=== PATIENT | male | born 1975 | race Caucasian/White ===

== ENCOUNTER 2019-04-01 20:21 | Emergency (ER) | payer MEDICARE, SELFPAY ==
[2019-04-01 20:22] VITALS: BP 115/70; PULSE 109; RESP 16; TEMP 37.1; O2SAT 97; BMI 21.7
--- NOTE | 2019-04-01 20:51 | ED.VISSUMM ---
- ER Visit Summary Date of Service: 04/01/19 Chief Complaint: Back pain History of Present Illness: The patient is a 43 M presents with back pain that is been getting worse over the past 1-1/2 to 2 weeks. Patient states the pain is over the left lower lumbar area. Patient states pain does radiate into his abdomen. Patient denies any nausea or vomiting. Patient denies any diarrhea. Patient denies any bowel or bladder changes. Patient denies any urinary or stool incontinence. Patient denies any saddle anesthesia. Patient states his pain is worse when he moves certain ways. Patient states the pain improves when he rubs his lower back. Patient denies any radiation of the pain. Patient denies any paresthesias or weakness. Patient denies any specific trauma or injury. Patient states he did go to [facility] and [facility]. Patient states this is helped his back pain in the past however this did not help this time. Physical Examination: Vital signs are stable. Patient is afebrile. Patient is in no acute distress. Musculoskeletal exam reveals tenderness over the left lumbar paraspinal muscles. There is no midline tenderness. There is no bony crepitance or step-off. Straight leg raises were negative bilaterally. Strength is 5/5 bilateral knee upper and lower extremities. There are no sensory deficits noted. Patient was able to ambulate without difficulty. Heart was regular rate and rhythm. Lungs are clear and equal bilaterally. Abdomen is soft. Bowel sounds are normal. There is no tenderness noted. Emergency Department Course and Treatment: Patient was given a prescription for Naprosyn. Patient was instructed to use ice to the area. Patient was instructed to follow-up with his primary care physician in 5 to 7 days. Patient understood and was agreeable with the plan. All questions were answered. Disposition: Discharge home Impression: Lumbosacral strain This note was generated with Practice Management e-Tools dictation software. It may contain incorrect words, spelling, and punctuation that were not noted in review of the chart prior to signing ED Disposition - Plan for ED Patient: Disposition: Home or Assisted Living Diagnosis: Lumbosacral strain Instructions: Back Sprain/Strain Prescriptions: Naproxen [Naprosyn] 500 mg PO BID PRN #20 tab Prescription Printed Referrals: Cristian Barnett MD [Primary Care Provider] - 3-5 Days
[2019-04-01 21:03] VITALS: BP 115/70; PULSE 109; RESP 16; O2SAT 97
== END 2019-04-01 21:04 | disposition home or self-care (01) ==
PROVIDERS: Emergency Provider Emergency Medicine; Family Provider Family Medicine; PCP Family Medicine
DX: S39.012A Strain of muscle, fascia and tendon of lower back, initial encounter (principal); Z72.0 Tobacco use; X58.XXXA Exposure to other specified factors, initial encounter; Y93.89 Activity, other specified; Y92.89 Other specified places as the place of occurrence of the external cause; Y99.8 Other external cause status
CPT/HCPCS: 99282

== ENCOUNTER 2019-04-09 09:29 | Emergency (ER) | payer MEDICARE, SELFPAY ==
[2019-04-09 09:31] VITALS: BP 122/74; PULSE 65; RESP 17; TEMP 36.8; O2SAT 99; BMI 22.0
--- NOTE | 2019-04-09 09:40 | CT_ITS ---
STUDY: CT ABDOMEN AND PELVIS WITHOUT CONTRAST REASON FOR EXAM: Male, 43 years old. Pain RADIATION DOSAGE (If Supplied By Facility): CTDIvol = ( 6.08 ) mGy, DLP = ( 299.27 ) mGycm TECHNIQUE: Transaxial images were obtained from the dome of the diaphragm to the symphysis pubis without oral contrast, and without intravenous contrast. Sagittal and coronal images were reconstructed. Individualized dose optimization techniques were used for this CT. COMPARISON: November 29, 2016 CT scan abdomen and pelvis FINDINGS: There is trace lower lobe atelectasis. The visualized portions of the heart are within normal limits. Normal liver. Normal gallbladder and extrahepatic biliary system. Normal spleen. Normal pancreas. Normal bilateral adrenal glands. Normal right kidney. Normal left kidney. Normal visualized stomach. Normal small intestine. There is mild to moderate stool within the colon. Appendix is not seen with certainty there is no evidence of inflammation in the right lower quadrant. There is minimal atherosclerotic disease of the aorta. Normal inferior vena cava. There few nonspecific retroperitoneal lymph nodes. Normal urinary bladder. Prostate is mildly enlarged. Normal abdominal wall. There is degenerative change T11-T12. CT/Abdomen/Pelvis without Cont IMPRESSION: No evidence of renal ureteral or bladder calculi or evidence of hydronephrosis. Electronically Signed: Taryn Machado MD at 11:34 EDT Tel , Service support ,
--- NOTE | 2019-04-09 09:42 | ED.VIS.GEN ---
History of Present Illness Chief Complaint: Flank Pain Informant: Patient Onset: Weeks Narrative: Patient presents to the ED with left-sided flank/lumbar pain and states it is wrapping around to his groin. He states that several weeks ago, he fell and was having lumbar pain. He was seen here about 8 days ago and diagnosed with lumbar pain with sciatica and given anti-inflammatories and muscle relaxants. He states the pain is not improving. He did he states that occasionally he does have a week but no other urinary symptoms. He denies any fever, chills, abdominal pain, constipation, diarrhea. He has no history of renal stones. He has been taking [id number] analgesics without relief. Past Medical History - Allergies and Home Meds Allergies/Adverse Reactions: Allergies sulfamethoxazole [From Bactrim] Allergy (Verified 04/09/19 09:31) Unknown trimethoprim [From Bactrim] Allergy (Verified 04/09/19 09:31) Unknown amoxicillin trihydrate [From Augmentin] Adverse Reaction (Verified 04/09/19 09:31) Nausea potassium clavulanate [From Augmentin] Adverse Reaction (Verified 04/09/19 09:31) Nausea Primary Care Physician: Cristian Barnett MD [Primary Care Provider] - Smoking Status: Current every day smoker Review of Systems General: Denies: Chills, Fever, Sweats Eyes: Denies: Visual changes - bilaterally, Diplopia ENT: Denies: Rhinorrhea, Sore throat Cardiovascular: Denies: Chest pain, Palpitations Respiratory: Denies: Dyspnea, Cough, Dyspnea on exertion Gastrointestinal: Denies: Abdominal pain, Nausea, Vomiting, Diarrhea, Melena, Hematochezia Genitourinary: Reports: - - Weak stream. Denies: Dysuria, Hematuria, Frequency Musculoskeletal: Reports: Back pain. Denies: Extremity Pain Skin: Denies: Rash, Wounds Neurological: Denies: Headache, Weakness, Numbness Physical Exam Vital Signs/Narrative: Vital Signs Temp Pulse Resp BP Pulse Ox 04/09/19 09:31 98.2 F 65 17 122/74 H 99 General: Well nourished, Well developed, No Acute Distress Head: Normocephalic, Atraumatic Eyes: Perrl, EOMI ENT: Moist mucous membranes, No rhinorrhea Neck: Supple, Nontender Cardiovascular: Regular rate, Regular rhythm, No murmurs Respiratory: No distress, CTA bilaterally, Chest nontender Abdomen: Soft, Nondistended, Normal bowel sounds, Tender - Left lower quadrant, Guarding, Rebound tenderness Back: Nontender, Normal Inspection Extremities: Nontender, No edema Skin: Normal color, No rash Neurological: Alert, Oriented x3, Cranial nerves II-XII grossly intact, Normal Strength, Normal Sensation Psychological: Normal affect, Normal Mood Diagnostic/Tx/Re-eval - Medical Decision Making Patient presents to the ED with lumbar pain that radiates into his groin. He did fall and injure himself several weeks ago. He was seen here 8 days ago for similar symptoms and diagnosed with lumbar pain with sciatica. He does report decreased urinary stream. He appears well and nontoxic. He does have some left-sided abdominal tenderness to palpation on physical exam. No CVA tenderness. Laboratory studies, urinalysis, and CT of the abdomen/pelvis without contrast indicate no acute findings. I discussed with the patient at this time his symptoms are most likely more musculoskeletal in nature. While here, he was given IV fluids, Toradol, and Zofran. He does report mild improvement of symptoms. He was advised to follow-up with his PCP. Educated on signs/symptoms to return to the ED. He is provided discharge instructions and agreeable to plan. Impression: Lumbar pain. Disposition: Home stable ED Disposition - Plan for ED Patient: Disposition: Home or Assisted Living Diagnosis: Lumbar pain Instructions: FLANK PAIN, Uncertain Cause Referrals: Cristian Barnett MD [Primary Care Provider] -
[2019-04-09] MEDS: 0.9% Normal Saline 1,000 ML 1000 ML IV (10:03)
[2019-04-09] MEDS: Ketorolac 30 MG/ML Syringe IV (10:04)
[2019-04-09] MEDS: Ondansetron 4 MG/2 ML Vial IV (10:04)
[2019-04-09 10:29] LABS: Anion Gap 6 (5-15); BUN 13 mg/dL (7-18); BUN/Creat Ratio 14.6 RATIO (10-20); Calcium,Total 9.1 mg/dL (8.5-10.1); Chloride 108 mmol/L (98-107); Creatinine, Serum 0.89 mg/dL (0.70-1.30); EST Glomerular Filtration Rate 98 mL/min (>60); Est Glom Filt Rate - Afr Amer 119 mL/min (>60); Estimated Creatinine Clearance 100.22 ml/min; Glucose 102 mg/dL (74-106); Sodium Level 142 mmol/L (136-145)
[2019-04-09 10:30] LABS: Absolute Neutrophil Count 4.4 X10^3/uL (2.0-7.7); Basophil# 0.08 X10^3/uL; Basophil% 1.1 % (0-1); Eosinophil# 0.16 X10^3/uL; Eosinophils% 2.1 % (0-5); Hematocrit 45.7 % (40-54); Hemoglobin 15.4 g/dL (13.0-16.5); Mean Corp Hgb Conc 33.7 g/dL (32-36); Mean Corpuscular Hgb 31.9 pg (27.0-32.0); Mean Corpuscular Volume 94.6 fL (80-94); Mean Platelet Vol. 11.8 fl (6.2-12.0); Monocyte# 0.46 X10^3/uL; Monocyte% 6.1 % (0-10); NRBC Flagged by Analyzer 0 % (0-5); Neutrophil # 4.37 X10^3/uL (2.7-7.7); Neutrophil % 58.3 % (47-70); Platelet Count 184 K/mm3 (150-450); RBC Distribution Width CV 14.2 % (11.6-14.6); RBC Distribution Width SD 49.1 fl (35.1-43.9); Red Blood Count 4.83 M/mm3 (4.6-6.2); White Blood Count 7.5 K/mm3 (4.4-11.0)
[2019-04-09 11:31] LABS: Bacteria 0 SEEN /hpf (None Seen); Mucous, Urine 0 SEEN /hpf (<or=2+); Red Blood Cells-Urine 0 SEEN /hpf (0-5); Squamous Epithelial Cells - UA 0 SEEN /hpf (0-5)
[2019-04-09 11:34] LABS: Color, Urine Yellow (Yellow); Glucose, Dipstick Normal (Normal); Ketone-Dipstick Negative (Negative); Leukocyte Esterase-Dipstick 25 /ul (Negative); Nitrite-Dipstick Negative (Negative); Occult Blood-Urine Negative /ul (Negative); Protein-Dipstick Negative (Negative); Specific Gravity, Urine 1.025 (1.002-1.030); Urine Bilirubin Dipstick Negative (Negative); Urine Clarity Clear (Clear); Urine Urobilinogen Normal (Normal)
[2019-04-09 11:40] LABS: White Blood Cells 0-5 SEEN /hpf (0-5)
== END 2019-04-09 12:23 | disposition home or self-care (01) ==
PROVIDERS: Emergency Provider Physician Assistant; Family Provider Family Medicine; PCP Family Medicine
DX: M54.5 Low back pain (principal); F17.200 Nicotine dependence, unspecified, uncomplicated
CPT/HCPCS: 74176; 80048; 81001; 85025; 96361; 96374; 96375; 99285; J2405

== ENCOUNTER 2024-11-12 08:03 | Emergency (ER) | payer MEDICARE, SELFPAY ==
[2024-11-12 08:03] VITALS: BP 141/98; PULSE 94; RESP 19; TEMP 37.1; O2SAT 98; BMI 25.1
--- NOTE | 2024-11-12 08:07 | EX.ED.DYSGE1 ---
HPI History of Present Illness Chief Complaint: Abd Pain PFSH PFSH Home Medications ?Medication ?Instructions ?Recorded ?Last Taken ?Type rabeprazole 20 mg tablet,delayed 20 mg PO DAILY 01/20/15 11/11/24 History release (AcipHex) ondansetron 4 mg disintegrating 4 mg PO Q8H PRN PRN Nausea #10 tabs 11/12/24 Unknown Rx tablet oxycodone 5 mg tablet 5 mg PO Q6H PRN pain 3 days #12 11/12/24 Unknown Rx tabs Allergy/AdvReac Type Severity Reaction Status Date / Time sulfamethoxazole (From Allergy Unknown Verified 11/12/24 08:06 Bactrim) trimethoprim (From Bactrim) Allergy Unknown Verified 11/12/24 08:06 amoxicillin trihydrate (From AdvReac Nausea Verified 11/12/24 08:06 Augmentin) potassium clavulanate (From AdvReac Nausea Verified 11/12/24 08:06 Augmentin) Social History Smoking Status: Current every day smoker tobacco type: cigarettes EXAM Physical Exam Const Vital Signs: 11/12/24 08:03 11/12/24 10:03 Temperature 98.7 F Temperature Source Oral Pulse Rate 94 81 Respiratory Rate 19 H 17 Blood Pressure 141/98 H 129/80 H Blood Pressure Mean 112 96 Pulse Ox 98 98 Oxygen Delivery Method Room Air Room Air MDM MDM MDM Narrative Medical decision making narrative: HISTORY OF PRESENT ILLNESS: Chief complaint: Abdominal pain 49-year-old male presents concern for left upper abdominal pain for the past 6 days. Notes it is getting worse. States is worse with bending over. He further states he has had no trauma. Denies vomiting or fever. Denies chest pain or shortness of breath. Denies flank pain. Notes history of kidney stones. States does not feel similar. Denies urinary complaints. Denies diarrhea. Denies melena hematochezia. Denies history of prior abdominal surgeries REVIEW OF SYSTEMS: Pertinent positives: Abdominal pain Pertinent negatives: As per HPI PHYSICAL EXAM: Nursing triage notes reviewed, Vital signs reviewed Constitutional: please see mdm HENT: MMM Eyes: Pupils equal round and reactive to light, Extraocular muscles intact Neck: No stridor, no JVD, full neck ROM Lungs: Clear to auscultation, No wheezing or rales. No increased work of breathing, no conversational dyspnea, no accessory muscle use, no nasal flaring. No respiratory distress noted Heart: Regular rate and rhythm, No murmurs, No rubs and No gallops, 2+ distal pulses (radial, femoral, posterior tibial) in all extremities Abdomen: Soft, there is no tenderness, rigidity, rebound or guarding, no obvious peritoneal signs, no palpable pulsatile abdominal masses, no auscultated abdominal bruit : No CVAT Extremities: No edema Neuro: No new focal neurological deficits, cranial nerves II through XII intact, 5/5 strength in all present extremities. Intact sensation to light touch in all present extremities, 2+ reflexes bilateral patella tendons. Skin: No rash or lesions noted MEDICAL DECISION MAKING: Chief Complaint: please see HPI External records reviewed: Reviewed prior surgical intervention Factors affecting care: left inguinal hernia status post repair Social determinants of health: Denies alcohol History obtained from others: none Consults: none [facility] Narrative: The patient was initially hemodynamically stable, afebrile and nontoxic-appearing. Exam without pulse abdominal masses. I considered the following differential diagnosis: AAA, small bowel obstruction, abdominal perforation, appendicitis, pancreatitis, hepatobiliary pathology (acute cholecystitis), mesenteric ischemia, pathology (ie nephrolithiasis, pyelonephritis). I obtained a broad lab and imaging evaluation to further elucidate etiology of the patient's complaint. I initially treated the patient with 1 L IV fluid, 4 mg IV Zofran, 4 mg IV morphine ALL IMAGES (IF OBTAINED) HAVE BEEN PERSONALLY REVIEWED AND INTERPRETED BY MYSELF. Per radiology numerus pulmonary nodule, lymphadenopathy, retroperitoneal nodes, small liver lesion concerning for cancer. CT scan was concerning for lung cancer with innumerable pulmonary nodules, hilar and mediastinal lymphadenopathy as well as intra-abdominal lesions as well. No sign of acute surgical pathology. CBC without leukocytosis, severe anemia, no thrombocytopenia. CMP without evidence of acute kidney injury, significant electrolyte abnormality, anion gap to suggest end organ hypo-perfusion, no evidence of metabolic acidosis with a normal bicarbonate, no evidence of hepatobiliary obstructive pathology. Lipase is wnl indicating no pancreatic inflammation. Repeat abdominal exam remained benign. The synthesis of the patient's history, physical exam, labs images suggest possible malignancy. Will give close oncology follow-up via Fast past return precautions were discussed. Zofran and oxycodone given for home treatment The patient and/or family, caregivers express understanding. The patient and/or family, caregivers agrees with the plan. Shared decision making: I will have a discussion with the patient and or visitors regarding risk/benefits of further testing or admission. They will be made aware of of the risk/benefits inherent in this decision they will be given the opportunity to voice understanding. Total critical care time today provided was at least 0 minutes. This excludes separately billable procedures. Critical care time (if documented) is secondary to the patient having high probability of clinically significant/life threatening deterioration in the patient's condition which required my urgent intervention. Impression: 1. Abdominal pain 2. Lymphadenopathy Dispo: Discharge home This note was generated with ArthroCAD dictation software. It may contain incorrect words, spelling, and punctuation that were not noted in review of the chart prior to signing. Lab Data Labs: Laboratory Results - last 24 hr 11/12/24 08:26 WBC 10.2 RBC 4.74 Hgb 13.9 Hct 41.5 MCV 87.6 MCH 29.3 MCHC 33.5 RDW Std Deviation 43.4 RDW Coeff of Ted 13.4 Plt Count 262 MPV 11.4 Immature Gran % (Auto) 0.600 Neut % (Auto) 69.6 Lymph % (Auto) 20.4 [place] % (Auto) 6.5 Eos % (Auto) 1.8 Baso % (Auto) 1.1 H Absolute Neuts (auto) 7.1 Absolute Lymphs (auto) 2.09 Nucleated RBC % 0 Sodium 135 Potassium 3.9 Chloride 102 Carbon Dioxide 21.4 Anion Gap 12 BUN 12 Creatinine 0.85 Estim Creat Clear Calc 102.82 Est GFR (MDRD) Non-Af 105 BUN/Creatinine Ratio 14.3 Glucose 283 H Calcium 9.1 Total Bilirubin 0.29 AST 13 ALT 8 Alkaline Phosphatase 70 Total Protein 7.8 Albumin 3.8 Globulin 4.0 Albumin/Globulin Ratio 1.0 Lipase 26 Radiography Diagnostic Testing: Clinical Impression(s) from Imaging Studies Chest/Abdomen/Pelvis CT 11/12/24 08:58 IMPRESSION: 1. No acute thoracic or abdominopelvic finding. 2. Innumerable pulmonary nodules throughout the bilateral lungs, with mediastinal and hilar lymphadenopathy, most compatible with primary lung neoplasm and marielena metastatic disease. Pulmonary metastasis or lymphoma are additional considerations, though less likely. Image guided biopsy is recommended for further evaluation. 3. Small right hepatic lobe hypodensity and large centrally necrotic retroperitoneal and gastric lymphadenopathy, compatible with hepatic and marielena metastatic disease. Dr. Bean discussed these findings via telephone with Dr. Grimes at 11:15 a.m. on 11/12/2024. Reading Location: [facility] Discharge Plan Triage Chief Complaint: Abd Pain ED Provider: Dionicio Grimes Dx/Rx/DC Orders Instructions: Lymphadenopathy Prescriptions: New ondansetron 4 mg tablet,disintegrating 4 mg PO Q8H PRN PRN (Reason: Nausea) Qty: 10 0RF oxycodone 5 mg tablet 5 mg PO Q6H PRN (Reason: pain) 3 Days Qty: 12 0RF No Action rabeprazole [AcipHex] 20 MG tablet 20 mg PO DAILY Other Ambulatory Orders: Fast Pass: Oncology Referral [facility] (Routine) Facility: [facility] - Location: [facility] Ordered By: Dr. Dionicio Grimes Primary Care Provider: Cristian Barnett Referrals: Cristian Barnett MD [Primary Care Provider] - Activity Restrictions/Additional Instructions: Thank you for trusting us with your care today! Your CT scan was concerning for inflamed lymph nodes and signs of potential cancer. Please follow-up with the Fast pass process for prompt oncology evaluation. Please take Tylenol (2 pills, 650 mg), ibuprofen (2 pills, 400 mg) every 6 hours as needed for pain and fever control. Please take Zofran as needed for nausea and vomiting control. Please return to the emergency department if your symptoms change or worsen. Please follow with your primary care physician for further outpatient evaluation and management. Print Language: Setswana Disposition Disposition: Home, Self Care
--- NOTE | 2024-11-12 08:58 | CT_ITS ---
PROCEDURE: CT CHEST, ABD, PEL W/CONTRAST 11/12/2024 REASON FOR EXAM: LEFT UPPER QUADRANT ABDOMINAL PAIN times 5-6 days, getting worse. TECHNIQUE: Chest, abdomen and pelvis CT with intravenous contrast. Coronal and Sagittal reconstruction series were provided. One or more dose reduction techniques were used (e.g., Automated exposure control, adjustment of the mA and/or kV according to patient size, use of iterative reconstruction technique. PATIENT PREPARATION: Per protocol ORAL CONTRAST TYPE: None. CONTRAST: Isovue 370 VOLUME: 100mL RADIATION DOSE SUMMARY: CTDlvol: 45 mGy DLP: 1200 mGycm COMPARISON: CT abdomen pelvis 04/09/2019. FINDINGS: CT CHEST: Hardware: None. Lymph nodes: Mediastinal and hilar lymphadenopathy. A goodwill representative right paratracheal node measures 1.9 x 1.7 cm (series 3, image 43). No axillary lymphadenopathy. Heart and Vasculature: The heart is normal in size without pericardial effusion. No coronary artery calcifications. The great vessels are normal in caliber. Lungs and Airways: The central airways are patent. Innumerable pulmonary nodules throughout all 5 lung lobes. A goodwill representative right upper lobe subpleural pulmonary nodule measures 2.5 x 2.2 cm (series 3, image 35). No pleural effusion or pneumothorax. Bones: Prior vertebral augmentation of the T6 vertebral body. CT ABDOMEN/PELVIS: Liver: The liver is normal in size with ill-defined hypodensity within hepatic segment 5 measuring approximately 1.4 x 1.4 cm (series 4, image 31). Additional tiny hypodensities, too small to characterize. The major portal veins are patent. No biliary ductal dilation. Gallbladder: No radiopaque stones within the gallbladder. Spleen: Normal size. Pancreas: Unremarkable. Adrenals: No adrenal mass. Kidneys: Tiny bilateral hypodensities, likely cysts. No hydronephrosis or nephrolithiasis. Bladder: Distended and unremarkable. Reproductive Organs: Mildly enlarged prostate. Bowel: The bowel loops are normal in caliber. No ascites or pneumoperitoneum. No inflammatory mass in the expected region of the appendix. Lymph nodes: Numerous large, centrally necrotic retroperitoneal and gastric lymphadenopathy. A goodwill representative left lateral aortic/para-aortic node measures 2.9 x 2.9 cm (series 4, image 41). Additional prominent central mesenteric nodes, of indeterminate significance. Vasculature: Mild calcific plaque of the aortoiliac vessels. Bones: No suspicious osseous lesions. CT/CT Chest, Abd, Pel w/Contrast IMPRESSION: 1. No acute thoracic or abdominopelvic finding. 2. Innumerable pulmonary nodules throughout the bilateral lungs, with mediastin al and hilar lymphadenopathy, most compatible with primary lung neoplasm and marielena metastatic disease. Pulmonary metastasis or ly mphoma are additional considerations, though less likely. Image guided biopsy is recommended for further evaluation. 3. Small right hepatic lobe hypodensity and large centrally necrotic retroperit decker and gastric lymphadenopathy, compatible with hepatic and marielena metastatic disease. Dr. Bean discussed these findings via telephone with Dr. Grimes at 11:15 a. m. on 11/12/2024. Reading Location: [id number]
[2024-11-12] MEDS: 0.9% Normal Saline (1000mL) 1,000 ML 999 ML IV (09:17)
[2024-11-12] MEDS: Ondansetron 4 MG/2 ML Vial IV (09:17)
[2024-11-12] MEDS: Morphine 4 MG/ML Syringe IV (09:17)
[2024-11-12 09:30] LABS: Absolute Lymphocyte Count 2.09 X10^3/uL (0.83-4.51); Absolute Neutrophil Count 7.1 X10^3/uL (2.0-7.7); Basophil# 0.11 X10^3/uL; Basophil% 1.1 % (0-1); Eosinophil# 0.18 X10^3/uL; Eosinophils% 1.8 % (0-5); Hematocrit 41.5 % (40-54); Hemoglobin 13.9 g/dL (13.0-16.5); Lymphocyte # 2.09 X10^3/ul (0.83-4.51); Lymphocyte % 20.4 % (19-41); Mean Corp Hgb Conc 33.5 g/dL (32-36); Mean Corpuscular Hgb 29.3 pg (27.0-32.0); Mean Corpuscular Volume 87.6 fL (80-94); Mean Platelet Vol. 11.4 fl (6.2-12.0); Monocyte# 0.67 X10^3/uL; Monocyte% 6.5 % (0-10); NRBC Flagged by Analyzer 0 % (0-5); Neutrophil # 7.13 X10^3/uL (2.7-7.7); Neutrophil % 69.6 % (47-70); Platelet Count 262 K/mm3 (150-450); RBC Distribution Width CV 13.4 % (11.6-14.6); RBC Distribution Width SD 43.4 fl (35.1-43.9); Red Blood Count 4.74 M/mm3 (4.6-6.2); White Blood Count 10.2 K/mm3 (4.4-11.0)
[2024-11-12 09:55] LABS: AST(SGOT) 13 U/L (<=37); Alanine Aminotransfer ALT/SGPT 8 U/L (<=46); Albumin, Serum 3.8 g/dL (3.5-5.0); Alkaline Phosphatase 70 U/L (40-129); Anion Gap 12 (5-15); BUN 12 mg/dL (4-19); BUN/Creat Ratio 14.3 RATIO (10-20); Calcium,Total 9.1 mg/dL (7.6-11.0); Carbon Dioxide 21.4 mmol/L (21.0-32.0); Chloride 102 mmol/L (98-108); Creatinine, Serum 0.85 mg/dL (0.70-1.20); EST Glomerular Filtration Rate 105 (>60); Estimated Creatinine Clearance 102.82 ml/min (50-250); Glucose 283 mg/dL (70-99); Lipase 26 U/L (13-75); Potassium 3.9 mmol/L (3.3-5.1); Protein, Total 7.8 g/dL (5.9-8.4); Sodium Level 135 mmol/L (133-145); Total Bilirubin 0.29 mg/dL (0.00-1.30)
[2024-11-12 10:03] VITALS: BP 129/80; PULSE 81; RESP 17; O2SAT 98
[2024-11-12 11:48] VITALS: BP 124/74; PULSE 79; RESP 15; TEMP 36.6; O2SAT 98
== END 2024-11-12 11:53 | disposition home or self-care (01) ==
PROVIDERS: Emergency Provider Emergency Medicine; PCP Family Medicine; Visit Provider Emergency Medicine
DX: R10.9 Unspecified abdominal pain (principal); R59.0 Localized enlarged lymph nodes; F17.210 Nicotine dependence, cigarettes, uncomplicated
CPT/HCPCS: 71260; 74177; 80053; 83690; 85025; 96361; 96374; 96375; 99284; J2405

== ENCOUNTER → 2024-11-14 | Outpatient (CLI) | payer MEDICARE, SELFPAY ==
[2024-11-14 12:59] LABS: Platelet Count 324 K/mm3 (150-450)
[2024-11-14 13:18] LABS: International Normalized Ratio 1.1
[2024-11-14 13:19] LABS: Partial Thromboplast Time 26.6 Seconds (24.1-36.2)
== END | disposition home or self-care (01) ==
LOC: LAB 11:52
PROVIDERS: PCP Family Medicine; Referring Provider Internal Medicine Critical Care Medicine; Visit Provider Internal Medicine Critical Care Medicine
DX: R91.8 Other nonspecific abnormal finding of lung field (principal)
CPT/HCPCS: 36415; 85049; 85610; 85730

== ENCOUNTER → 2025-01-04 | Outpatient (CLI) | payer MEDICARE, MEDICAID, SELFPAY ==
[2025-01-04] VITALS (22 sets, daily range): BP systolic 103–129; BP diastolic 73–98; PULSE 94–107; RESP 17–30; TEMP 37.1; O2SAT 94–99; BMI 23.6
--- NOTE | 2025-01-04 09:06 | CT_ITS ---
EXAM: CT-guided core biopsy a right lower lobe posterior peripheral mass. CLINICAL HISTORY: Innumerable bilateral presumed pulmonary metastases. COMPARISON: CT examination of 11/12/2024. TECHNIQUE: Conscious sedation was provided, with IV administration a total of 2 mg Versed and 100 mcg fentanyl. Following informed consent, and using standard sterile technique, a CT-guided core biopsy of a peripheral right lower lobe posterior mass was performed. 2% lidocaine local anesthesia was followed by placement of a reBouncest 20/19 gauge core biopsy device, under CT guidance. A total of 5 core specimens were obtained. Postprocedure 1 hour and 3 hour inspiratory and expiratory chest x-rays were also performed No complication was encountered, in the patient left the department in good condition without significant complication. Dose: DLP 3070.36 mGy-cm. CT/Biopsy/Inj or Needle Placement IMPRESSION: Successful core biopsy of a peripheral right lower lobe posterior nodule. Path ology results pending. Reading Location: [place] [id number]
[2025-01-04] MEDS: 0.9% Saline Lock 10 ML Syringe IV (09:35)
[2025-01-04 09:56] LABS: Absolute Lymphocyte Count 1.65 X10^3/uL (0.83-4.51); Absolute Neutrophil Count 10.3 X10^3/uL (2.0-7.7); Basophil# 0.08 X10^3/uL; Basophil% 0.6 % (0-1); Eosinophils% 0.8 % (0-5); Hematocrit 36.7 % (40-54); Hemoglobin 12.1 g/dL (13.0-16.5); Lymphocyte # 1.65 X10^3/ul (0.83-4.51); Lymphocyte % 12.7 % (19-41); Mean Corpuscular Hgb 27.1 pg (27.0-32.0); Mean Corpuscular Volume 82.3 fL (80-94); Mean Platelet Vol. 11.2 fl (6.2-12.0); Monocyte# 0.77 X10^3/uL; Monocyte% 5.9 % (0-10); NRBC Flagged by Analyzer 0 % (0-5); Neutrophil % 79.5 % (47-70); Platelet Count 457 K/mm3 (150-450); RBC Distribution Width CV 13.5 % (11.6-14.6); RBC Distribution Width SD 40.4 fl (35.1-43.9); Red Blood Count 4.46 M/mm3 (4.6-6.2)
[2025-01-04 10:01] LABS: International Normalized Ratio 1.2; Prothrombin Time (Protime)PT. 15.3 SECONDS (11.7-14.9)
[2025-01-04 10:02] LABS: Partial Thromboplast Time 24.2 Seconds (24.1-36.2)
[2025-01-04] MEDS: 0.9% Normal Saline (250mL Bag) 250 ML 15 ML IV (10:22)
[2025-01-04] MEDS: Midazolam 2 MG/2 ML Syringe IV ×2 (10:25→10:45)
[2025-01-04] MEDS: fentaNYL 100 MCG/2 ML Ampul IV ×2 (10:26→10:56)
[2025-01-04] MEDS: Lidocaine 2% (20 ml mdv) 20 ML Vial INFILT (10:45)
--- NOTE | 2025-01-04 11:10 | ASPIGT_PTH ---
PATIENT: HYUN CAIN LOC: CT U#:[id number] AGE/SX: 49/M ROOM: RE01/04/[address]: Dr. Denny Moffett DO : 1975 BED: DIS: 01/04/2025 SPEC #: [id number] RECD: 01/04/25 11:30 STATUS: ROSALIA REQ #: [id number] JONNY: 01/04/25 11:[address]: Denny Moffett DEPT: SURGICAL PATHOLOGY RECD BY: Bereket Rolle ENTERED: 01/04/25 13:21 SP TYPE: ASP RAD OTHR DR: MD Dr. Naeem Avila MD Dr. William Lago, MD Tissues: A - Lung, NOS Procedures: FNA Specimen Adequacy Immunohistochemical Stains Special Stain Group II Special Stain Group I Surgery Specimen Level IV AFB Stain (control) GMS Stain (control) Imprint (control) IHC Stain ADDITIONAL HEADER OPERATION: CT guided Right lung nodule PRE-OP DIAGNOSIS: Right lung nodule TISSUE SUBMITTED: A- Right lung nodule, 20 gauge x 5 cores MICROSCOPIC DIAGNOSIS A. Lung, right, nodule, biopsy: * Non-small cell carcinoma, consistent with squamous cell carcinoma - see note. * Note: IHCs performed. The tumor cells are positive for CK7, CK8, CK5/6, p40; and negative for CK20. Napsin-A shows focal weak staining. These findings support squamous differentiation. Clinical correlation is necessary to assess the primary origin. COMMENT The specimen is evaluated at the time of biopsy by Dr. Crooks. Immediate Evaluation = 1. Adequate. 2. Blood. MICROSCOPIC DESCRIPTION Slides are reviewed. All matched controls reacted appropriately. These tests were developed and their performance characteristics determined by [facility]. They may not have been cleared or approved by the U.S. Food and Drug Administration. The FDA has determined that such clearance or approval is not necessary.? The above immunohistochemical/dualISH?markers are reviewed by the Pathologist. GROSS DESCRIPTION A. Received in formalin labeled the patient's name and date of are multiple jose-red tissue core fragments ranging 0.2 cm to 0.6 cm in length by <0.1 cm to 0.1 cm in diameter. Entirely submitted in 1 cassette. IN 01/04/2025 CPT:[id number] ADDENDUM ADDENDUM ADDENDUM ADDENDUM ADDENDUM ADDENDUM ADDENDUM ADDENDUM ADDENDUM ADDENDUM ADDENDUM ADDENDUM ADDENDUM 01/11/2025 13:52 ADDENDUM 01/11/2025 13:52 ADDENDUM 01/11/2025 13:52 ADDENDUM 01/11/2025 13:52 ADDENDUM 01/11/2025 13:52 This addendum report is to include the additional stains performed: Mucicarmine: focal intracellular mucin positive. PASD: negative for fungal organisms. AFB: negative for acid fast bacilli. Based on the additional stain(s), the differential diagnosis includes adenosquamous carcinoma. Selected slides/images were reviewed in intradepartmental consultation by Dr Galo Buckner (thoracic pathology division, [facility]). The addendum report was discussed with Dr Iesha Moffett 01/11/25 at 1:51 PM.
--- OUTSIDE RECORDS SUMMARY | 2025-01-04 11:58 | XMS RPT_ITS | CCD ---
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 Cristian Barnett MD Primary Care Provider Dr. Dionicio Grimes DO Attending Provider Dr. Dionicio Grimes DO Emergency Provider Dr. Cristian Barnett MD Referring Provider Dr. Denny Moffett DO Attending Provider Dr. Denny Moffett DO Referring Provider [phone] CRISTIAN BARNETT Referring Unavailable CRISTIAN BARNETT Primary Care Unavailable CRISTIAN BARNETT Attending Unavailable CRISTIAN BARNETT Primary Care Unavailable CRISTIAN BARNETT Referring Unavailable CRISTIAN BARNETT Primary Care Unavailable CRISTIAN BARNETT Attending Unavailable CRISTIAN BARNETT Primary Care Unavailable CRISTIAN BARNETT Referring Unavailable CRISTIAN BARNETT Primary Care Unavailable CRISTIAN BARNETT Referring Unavailable CRISTIAN BARNETT Primary Care Unavailable CRITSIAN BARNETT Referring Unavailable CRISTIAN BARNETT Primary Care Unavailable CRISTIAN BARNETT Attending Unavailable CRISTIAN BARNETT Primary Care Unavailable Denny Moffett Referring Unavailable Denny Moffett Attending Unavailable Cristian Barnett Primary Care Unavailable Dionicio Grimes Attending Unavailable Sacate VillageCristian mccarthy Primary Care Unavailable Denny Moffett Referring Unavailable Denny Moffett Attending Unavailable Sacate VillageCristian mccarthy Primary Care Unavailable Denny Moffett Attending Unavailable Cristian Barnett Referring Unavailable WendiCristian mccarthy Primary Care Unavailable Allergies Allergy Classification Reported Allergen(s) Allergy Type Date of Onset Reaction(s) Facility (2 sources) amoxicillin / clavulanate drug allergy 12-03-19 [facility] Work Phone: (2 sources) sulfamethoxazole / trimethoprim drug allergy 12-03-19 [facility] Work Phone: (20 sources) Amoxicillin / Clavulanate; Translations: [AMOXICILLIN-POT CLAVULANATE] Drug Allergy 05-08-20 11 Diarrhea [facility] (20 sources) Sulfamethoxazole; Translations: [SULFAMETHOXAZOLE] Drug Allergy 06-27-20 12 Swelling [facility] (2 sources) Amoxicillin; Translations: [amoxicillin trihydrate] Drug Allergy 11-15-19 25 Nausea [facility] (1 source) Trimethoprim Drug Allergy 11-15-19 25 Unknown [facility] (2 sources) potassium clavulanate; Translations: [potassium clavulanate] Propensity to adverse reactions 11-15-19 25 [facility] (1 source) Sulfamethoxazole Drug Allergy 11-15-19 25 [facility] (1 source) Trimethoprim Drug Allergy 11-15-19 25 [facility] Medications Current Medications Medication Drug Class(es) Dates Sig (Normalized) Sig (Original) azithromycin 250 mg oral tablet (2 sources) Macrolide Antimicrobial Start: 11-01-2023 End: 11-06-2023 azithromycin (ZITHROMAX Z-JENN) 250 mg tablet Indications: Acute pharyngitis due to other specified organisms Take 2 tablets day one, then, 1 tablet daily until gone. 6 tablet 0 11/01/2023 11/06/2023 Active ferrous sulfate 325 mg oral tablet (4 sources) Start: 12-19-2024 End: 12-19-2025 take 1 tablet by mouth twice daily at mealtime ferrous sulfate 325 mg (65 mg iron) tablet Indications: Anemia, unspecified type Take 1 tablet by mouth two times a day with meals. 180 tablet 3 12/19/2024 12/19/2025 Active folic acid 1 mg oral tablet (4 sources) Start: 12-19-2024 End: 12-19-2025 take 1 tablet by mouth once daily folic acid 1 mg tablet Indications: Folic acid deficiency Take 1 tablet by mouth once daily. 90 tablet 3 12/19/2024 12/19/2025 Active hydrOXYzine pamoate 25 mg oral capsule (1 source) Antihistamine Start: 12-21-2024 End: 12-21-2024 take 1 capsule by mouth once hydrOXYzine pamoate (VISTARIL) 25 mg capsule Indications: Anxiety Take 1 capsule by mouth one time only for 1 dose. One hour before procedure. 1 capsule 12/21/2024 12/21/2024 Active ondansetron 4 mg disintegrating oral tablet (13 sources) Serotonin-3 Receptor Antagonist Start: 11-12-2024 End: 12-20-2024 take 1 tablet by mouth every eight hours as needed for nausea ondansetron orally disintegrating (ZOFRAN ODT) 4 mg disintegrating tablet Indications: Lymphadenopathy, abdominal , Chest wall pain , Hilar lymphadenopathy , Lung nodule Take 1 tablet by mouth every 8 hours as needed for nausea/vomiting. 30 tablet 12/20/2024 Active oxyCODONE hydrochloride 5 mg oral capsule (12 sources) Opioid Agonist Start: 12-20-2024 End: 12-27-2024 take 1 capsule by mouth every six hours as needed for pain oxyCODONE ir (OXYIR) 5 mg capsule Indications: Lymphadenopathy, abdominal , Chest wall pain , Hilar lymphadenopathy , Lung nodule Take 1 capsule by mouth every 6 hours as needed for pain for up to 7 days. 28 capsule 12/20/2024 12/27/2024 Active Start: 11-12-2024 take 1 tablet by soheila th every six hours for pain oxyCODONE IR (ROXICODONE) 5 mg immediate release tablet take 1 tablet by mouth every 6 hours if needed for pain for 3 days 11/12/2024 Active RABEprazole sodium 20 mg delayed release oral tablet (20 sources) Proton Pump Inhibitor Start: 01-20-2015 End: 10-04-2024 take 1 tablet by mouth once daily RABEprazole (ACIPHEX) 20 mg tablet Take 1 tablet by mouth once daily. 90 tablet 3 10/04/2024 Active Comment on above: Take 1 tablet by soheila once daily. triamcinolone acetonide 1 mg/ml topical cream (3 sources) Corticosteroid Start: 11-01-2023 End: 01-30-2024 triamcinolone acetonide (KENALOG) 0.1 % cream Indications: Allergic contact dermatitis due to other agents Apply 1 application to affected area two times a day. Apply to affected area. Location: chest 80 g 0 11/01/2023 01/30/2024 Active Completed/Discontinued Medications Medication Drug Class(es) Dates Sig (Normalized) Sig (Original) atorvastatin 40 mg oral tablet (3 sources) HMG-CoA Reductase Inhibitor Start: 11-29-2023 End: 05-27-2024 take 1 tablet by mouth once daily atorvastatin (LIPITOR) 40 mg tablet Indications: Dyslipidemia Take 1 tablet by mouth once daily. 90 tablet 1 11/29/2023 02/14/2024 Discontinued cyclobenzaprine hydrochloride 10 mg oral tablet (1 source) Muscle Relaxant Start: 04-01-2019 End: 11-12-2024 take 1 tablet by mouth three times daily as needed for muscle spasms Cyclobenzaprine 10 MG tablet Discontinued 10 mg PO 3 TIMES DAILY NEEDED as needed for Muscle Spasm April 01, 2019 12:00am November 12, 2024 8:44am diclofenac sodium 50 mg delayed release oral tablet (1 source) Nonsteroidal Anti-inflammatory Drug Start: 04-01-2019 End: 11-12-2024 take 1 tablet by mouth once daily Diclofenac Sodium 50 MG tablet,delayed release (DR/EC) Discontinued 50 mg PO DAILY April 01, 2019 12:00am November 12, 2024 8:44am 24 hr metFORMIN hydrochloride 750 mg extended release oral tablet (9 sources) Biguanide Start: 11-01-2023 End: 11-22-2024 take 1 tablet by mouth once daily at breakfast metFORMIN ER (GLUCOPHAGE XR) 750 mg 24 hr tablet Indications: Controlled type 2 diabetes mellitus without complication, without long-term current use of insulin (HCC) Take 1 tablet by mouth daily with breakfast. 90 tablet 1 02/16/2024 11/22/2024 Discontinued (Other) naproxen 500 mg oral tablet (1 source) Nonsteroidal Anti-inflammatory Drug Start: 04-01-2019 End: 11-12-2024 take 1 tablet by mouth twice daily as needed Naproxen 500 MG tablet Discontinued 500 mg PO TWICE DAILY NEEDED April 01, 2019 12:00am November 12, 2024 8:45am Drug Treatment Unknown - unknown (1 source) No information available. rosuvastatin calcium 5 mg oral tablet (2 sources) HMG-CoA Reductase Inhibitor Start: 11-01-2023 End: 04-29-2024 take 1 tablet by mouth once daily rosuvastatin (CRESTOR) 5 mg tablet Indications: Hyperlipidemia, mixed Take 1 tablet by mouth once daily. 90 tablet 1 11/01/2023 11/29/2023 Discontinued (Discontinued by Patient) Problems Active Problems Problem Classification Problem Date Documented Da te Episodic/Chronic Abdominal pain (1 source) Unspecified abdominal pain; Translations: [Unspecified abdominal pain] Onset: 5 Episodic Allergic reactions (1 source) Allergic contact dermatitis; Translations: [Allergic contact dermatitis due to other agents] 11-01-2023 Episodic Anxiety disorders (1 source) Anxiety; Translations: [Anxiety disorder, unspecified] 12-21-2024 Chronic Blindness and vision defects (20 sources) Legal blindness; Translations: [Legal blindness, as defined in [place]] Onset: 8 05-27-2018 Chronic Deficiency and other anemia (6 sources) Anemia; Translations: [Anemia, unspecified] Onset: 5 12-18-2024 Episodic Deficiency and other anemia (1 source) Anemia, unspecified; Translations: [Anemia, unspecified type] Onset: 5 Episodic Diabetes mellitus without complication (5 sources) Type 2 diabetes mellitus without complication; Translations: [Type 2 diabetes mellitus without complications] Onset: 5 11-01-2023 Chronic Disorders of lipid metabolism (5 sources) Mixed hyperlipidemia; Translations: [Mixed hyperlipidemia] Onset: 5 11-01-2023 Chronic Esophageal disorders (20 sources) Gastroesophageal reflux disease; Translations: [Gastro-esophageal reflux disease without esophagitis] Onset: 8 06-19-2008 Chronic Genitourinary symptoms and ill-defined conditions (2 sources) Tony hematuria; Translations: [Gross hematuria] Onset: 5 12-15-2024 Episodic Headache; including migraine (20 sources) Migraine; Translations: [Migraine, unspecified, not intractable, without status migrainosus] Onset: 3 05-25-2013 Chronic Hyperplasia of prostate (20 sources) Benign prostatic hyperplasia with lower urinary tract symptoms; Translations: [Benign localized hyperplasia of prostate with urinary obstruction and other lower urinary tract symptoms (LUTS)] Onset: 1 Resolved: 1 05-08-2011 Chronic Lymphadenitis (9 sources) Lymphadenopathy; Translations: [Generalized enlarged lymph nodes] Onset: 5 11-12-2024 Episodic Mood disorders (20 sources) Dysthymia; Translations: [Dysthymic disorder] Onset: 8 Resolved: 8 05-08-2008 Chronic Nonspecific chest pain (3 sources) Chest wall pain; Translations: [Other chest pain] Onset: 5 12-15-2024 Episodic Nutritional deficiencies (5 sources) Folic acid deficiency; Translations: [Deficiency of other specified B group vitamins] Onset: 5 12-19-2024 Episodic Other aftercare (1 source) Encounter for therapeutic drug level monitoring; Translations: [Medication monitoring encounter] Onset: 5 Episodic Other gastrointestinal disorders (4 sources) Acute constipation; Translations: [Constipation, unspecified] 12-15-2024 Episodic Other gastrointestinal disorders (1 source) Constipation, unspecified; Translations: [Acute constipation] Onset: 5 Episodic Other lower respiratory disease (4 sources) Multiple nodules of lung; Translations: [Other nonspecific abnormal finding of lung field] 11-14-2024 Episodic Other lower respiratory disease (1 source) Nodule of lung; Translations: [Solitary pulmonary nodule] 12-20-2024 Episodic Other lower respiratory disease (2 sources) Other nonspecific abnormal finding of lung field; Translations: [Lung nodules] Onset: 5 Episodic Other nervous system disorders (1 source) Paresthesia; Translations: [Paresthesia of skin] Episodic Other non-traumatic joint disorders (1 source) Pain in right knee; Translations: [Pain in joint, lower leg] 11-01-2023 Episodic Other screening for suspected conditions (not mental disorders or infectious disease) (2 sources) CT of chest abnormal; Translations: [Abnormal findings on diagnostic imaging of other specified body structures] 11-14-2024 Chronic Other skin disorders (1 source) Night sweats; Translations: [Generalized hyperhidrosis] 12-15-2024 Episodic Other skin disorders (1 source) Generalized hyperhidrosis; Translations: [Night sweats] Onset: Episodic Other upper respiratory infections (1 source) Acute pharyngitis; Translations: [Acute pharyngitis due to other specified organisms] 11-01-2023 Episodic Spondylosis; intervertebral disc disorders; other back problems (1 source) Low back pain; Translations: [Lumbar back pain] 04-10-2019 Episodic Unclassified (1 source) No current problems or disability 12-02-2016 Past or Other Problems Problem Classification Problem Date Documented Date Episodic/Chronic Abdominal hernia (20 sources) Left inguinal hernia ; Translations: [Diaphragmatic hernia] Onset: 07-16-2008 12-03-2016 Episodic Esophageal disorders (20 sources) Esophagitis; Translations: [Esophagitis, unspecified] Onset: 07-16-2008 07-16-2008 Episodic Mycoses (20 sources) Onychomycosis due to dermatophyte ; Translations: [Tinea unguium] Onset: 09-13-2008 09-13-2008 Episodic Other fractures (20 sources) Closed fracture thoracic vertebra; Translations: [Unspecified fracture of unspecified thoracic vertebra, initial encounter for closed fracture] Onset: 11-23-2008 11-23-2008 Episodic Other screening for suspected conditions (not mental disorders or infectious disease) (8 sources) Patient encounter status; Translations: [Encounter for screening for malignant neoplasm of colon] Onset: 02-14-2024 Episodic Residual codes; unclassified (20 sources) Tobacco user; Translations: [Tobacco use] Onset: 06-10-2011 06-10-2011 Episodic Residual codes; unclassified (1 source) Tobacco use; Translations: [Tobacco abuse] Onset: 06-10-2011 Episodic Screening and history of mental health and substance abuse codes (1 source) Encounter for screening examination for other mental health and behavioral disorders; Translations: [Encounter for screening examination for other mental health and behavioral disorders] Onset: 02-14-2024 Episodic Sprains and strains (20 sources) Sprain of foot; Translations: [Unspecified sprain of unspecified foot, initial encounter] Onset: 09-27-2008 09-27-2008 Episodic Results Test Name Value Interpretation Reference Range Facility [facility] 12-27-2024 [facility] Telephone (FAMPWS) CURTHYUN ([id number]) 1975 M Date Time Provider Department 12/27/24 [facility] During your visit today, we recorded the following information about you: Monserrat Smart, RN 12/27/2024 8:17 AM Signed Pt phoned to let pcp know he was suppose to have his biopsy done today at [facility]. [facility] cancelled and re-scheduled for next - telling pt the part they need for the CT is stuck in [place]. Pt asking pcp is there any way he can have the biopsy done at the [facility] Specialty building? Please advise pt. [phone] Cristian Banrett MD 12/27/2024 8:48 AM Signed Likely would need to be done at one of the hospitals and doubt it could get set up any sooner than next week. 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 Would actually take much longer Sepideh Mayberry LPN 12/27/2024 11:32 AM Signed Pt notified pf Dr Barnett's message. Pt verbalizes understanding. Pt had just wanted to give PCP a head up. Pt will wait and do procedure at [facility]. Sepideh Mayberry LPN Allergies As of Date: 12/27/2024 Noted Allergy Reaction AUGMENTIN (AMOXICILLIN-POT CLAVUL*05/08/2011 6 - Diarrhea BACTRIM (SULFAMETHOXAZOLE) 06/27/2012 7 - Swelling Date Reviewed: 12/15/2024 Reviewed by: Raiza Mcdonald LPN - Fully Assessed Reason for Visit: Patient Question [0267] Prescriptions as of 12/27/2024 - oxyCODONE ir (OXYIR) 5 mg capsule Take 1 capsule by mouth every 6 hours as needed for pain for up to 7 days. - ondansetron orally disintegrating (ZOFRAN ODT) 4 mg disintegrating tablet Take 1 tablet by mouth every 8 hours as needed for nausea/vomiting. - ferrous sulfate 325 mg (65 mg iron) tablet Take 1 tablet by mouth two times a day with meals. - folic acid 1 mg tablet Take 1 tablet by mouth once daily. - RABEprazole (ACIPHEX) 20 mg tablet Take 1 tablet by mouth once daily. Meds Comments as of 04/03/2019: Uses medication to help with bladder control, unsure what medication is. Problem List As Of Date 12/27/2024 Noted Resolved DYSTHYMIC DISORDER [F34.1] Depressive disorder, not elsewhere classified [*05/09/2008 05/27/2018 ESOPHAGEAL REFLUX [K21.9] 06/19/2008 ESOPHAGITIS, UNSPECIFIED [K20.90] 07/16/2008 DIAPHRAGMATIC HERNIA [K44.9] 07/16/2008 DERMATOPHYTOSIS OF NAIL [B35.1] 09/13/2008 SPRAIN OF FOOT NOS [S93.609A] 09/27/2008 FX DORSAL VERTEBRA-CLOSE [S22.009A] 11/23/2008 BPH loc w/o ur obs/LUTS [N40.0] 05/08/2011 05/08/2011 BPH loc w urin obs/LUTS [N40.1] 05/08/2011 Tobacco abuse [Z72.0] 06/10/2011 Migraine [G43.909] 05/25/2013 Legally 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] 05/27/2018 Anemia [D64.9] 12/19/2024 Folic acid deficiency [E53.8] 12/19/2024 Encounter Status:Closed by SEPIDEH MAYBERRY on 12/27/24 [facility]-2024 [facility] (FAMP[facility] HYUN CAIN ([id number]) 1975 M Date Time Provider Department 12/21/24 CRISTIAN BARNETT During your visit today, we recorded the following information about you: Petty Stack RN 12/21/2024 12:52 PM Signed Patient's significant other calls and states that patient is supposed to have have biopsy done 12/27. Patient was told to call PCP to see if something can be ordered to relax patient before procedure? Pharmacy is [facility] [place]. Please review and advise, DOLORES Pemberton William J, MD 12/21/2024 12:55 PM Signed I can give him a dose of vistaril. Will need someone to drive him. Nupur Green MA 12/21/2024 4:57 PM Signed Trudy notified. Nupur Green MA December 21, 2024 4:57 PM Allergies As of Date: 12/21/2024 Noted Allergy Reaction AUGMENTIN (AMOXICILLIN-POT CLAVUL*05/08/2011 6 - Diarrhea BACTRIM (SULFAMETHOXAZOLE) 06/27/2012 7 - Swelling Date Reviewed: 12/15/2024 Reviewed by: Raiza Mcdonald LPN - Fully Assessed Reason for Visit: Patient Question [1477] Primary Visit Diagnosis:Anxiety [F41.9] Order(s):hydrOXYzine pamoate (VISTARIL) 25 mg capsuleTake 1 capsule by mouth one time only for 1 dose. One hour before procedure.Disp: 1 capsuleRfl: 0 Prescriptions as of 12/21/2024 - hydrOXYzine pamoate (VISTARIL) 25 mg capsule Take 1 capsule by mouth one time only for 1 dose. One hour before procedure. - oxyCODONE ir (OXYIR) 5 mg capsule Take 1 capsule by mouth every 6 hours as needed for pain for up to 7 days. - ondansetron orally disintegrating (ZOFRAN ODT) 4 mg disintegrating tablet Take 1 tablet by mouth every 8 hours as needed for nausea/vomiting. - ferrous sulfate 325 mg (65 mg iron) tablet Take 1 tablet by mouth two times a day with meals. - folic acid 1 mg tablet Take 1 tablet by mouth once daily. - RABEprazole (ACIPHEX) 20 mg tablet Take 1 tablet by mouth once daily. Meds Comments as of 04/03/2019: Uses medication to help with bladder control, unsure what medication is. Problem List As Of Date 12/21/2024 Noted Resolved DYSTHYMIC DISORDER [F34.1] Depressive disorder, not elsewhere classified [*05/09/2008 05/27/2018 ESOPHAGEAL REFLUX [K21.9] 06/19/2008 ESOPHAGITIS, UNSPECIFIED [K20.90] 07/16/2008 DIAPHRAGMATIC HERNIA [K44.9] 07/16/2008 DERMATOPHYTOSIS OF NAIL [B35.1] 09/13/2008 SPRAIN OF FOOT NOS [S93.609A] 09/27/2008 FX DORSAL VERTEBRA-CLOSE [S22.009A] 11/23/2008 BPH loc w/o ur obs/LUTS [N40.0] 05/08/2011 05/08/2011 BPH loc w urin obs/LUTS [N40.1] 05/08/2011 Tobacco abuse [Z72.0] 06/10/2011 Migraine [G43.909] 05/25/2013 Legally 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] 05/27/2018 Anemia [D64.9] 12/19/2024 Folic acid deficiency [E53.8] 12/19/2024 Prescriptions ordered this encounter Disp Refills Start End HYDROXYZINE PAMOATE 25 MG CAPSULE 1 ca* 0 12/21/2024 12/21/2024 Route: PO Sig: Take 1 capsule by mouth one time only for 1 dose. One hour before procedure. Encounter Status:Closed by NUPUR GREEN on 12/21/24 [facility] 12-19-2024 [facility] (FAMWS) HYUN CAIN ([id number]) 1975 M Date Time Provider Department 12/19/24 CRISTIAN BARNETT During your visit today, we recorded the following information about you: Cristian Barnett MD 12/19/2024 8:45 AM Signed Urine culture are still pending. Anemic-folate is low. Iron appears low but is likely more (due to low tibc) related to the nodules he is getting biopsied-an anemia of chronic disease, Do ifobt Add iron to be on safe side and folate Recheck labs in one month. Nupur Green MA 12/19/2024 11:39 AM Signed [employer] message sent Allergies As of Date: 12/19/2024 Noted Allergy Reaction AUGMENTIN (AMOXICILLIN-POT CLAVUL*05/08/2011 6 - Diarrhea BACTRIM (SULFAMETHOXAZOLE) 06/27/2012 7 - Swelling Date Reviewed: 12/15/2024 Reviewed by: Raiza Mcdonald LPN - Fully Assessed Reason for Visit: Results [95] Primary Visit Diagnosis:Anemia, unspecified type [D64.9] Other Visit Diagnosis:Folic acid deficiency [E53.8] Order(s):IMMUNOCHEMICAL FECAL OCCULT BLOOD TEST [SQIFOBT] Order #: [id number]. #:[id number] FOLATE, SERUM [SQSERFOL] Order #: [id number] FUTURE ferrous sulfate 325 mg (65 mg iron) tabletTake 1 tablet by mouth two times a day with meals.Disp: 180 tabletRfl: 3 FERRITIN [SQFERR] Order #: [id number] FUTURE IRON AND TIBC [SQIRON] Order #: [id number] FUTURE COMPLETE BLOOD COUNT AND DIFFERENTIAL [SQCBCDIF] Order #: [id number] FUTURE folic acid 1 mg tabletTake 1 tablet by mouth once daily.Disp: 90 tabletRfl: 3 Prescriptions as of 12/19/2024 - ferrous sulfate 325 mg (65 mg iron) tablet Take 1 tablet by mouth two times a day with meals. - folic acid 1 mg tablet Take 1 tablet by mouth once daily. - oxyCODONE ir (OXYIR) 5 mg capsule Take 5 mg by mouth every 6 hours as needed for pain. - ondansetron orally disintegrating (ZOFRAN ODT) 4 mg disintegrating tablet Take 1 tablet by mouth every 8 hours as needed for nausea/vomiting. - RABEprazole (ACIPHEX) 20 mg tablet Take 1 tablet by mouth once daily. Meds Comments as of 04/03/2019: Uses medication to help with bladder control, unsure what medication is. Problem List As Of Date 12/19/2024 Noted Resolved DYSTHYMIC DISORDER [F34.1] Depressive disorder, not elsewhere classified [*05/09/2008 05/27/2018 ESOPHAGEAL REFLUX [K21.9] 06/19/2008 ESOPHAGITIS, UNSPECIFIED [K20.90] 07/16/2008 DIAPHRAGMATIC HERNIA [K44.9] 07/16/2008 DERMATOPHYTOSIS OF NAIL [B35.1] 09/13/2008 SPRAIN OF FOOT NOS [S93.609A] 09/27/2008 FX DORSAL VERTEBRA-CLOSE [S22.009A] 11/23/2008 BPH loc w/o ur obs/LUTS [N40.0] 05/08/2011 05/08/2011 BPH loc w urin obs/LUTS [N40.1] 05/08/2011 Tobacco abuse [Z72.0] 06/10/2011 Migraine [G43.909] 05/25/2013 Legally 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] 05/27/2018 Anemia [D64.9] 12/19/2024 Folic acid deficiency [E53.8] 12/19/2024 Prescriptions ordered this encounter Disp Refills Start End FERROUS SULFATE 325 MG (65 MG IRON) * 180 * 3 12/19/2024 12/19/2025 Route: PO Sig: Take 1 tablet by mouth two times a day with meals. FOLIC ACID 1 MG TABLET 90 t* 3 12/19/2024 12/19/2025 Route: PO Sig: Take 1 tablet by mouth once daily. Encounter Status:Closed by NUPUR GREEN on 12/19/24 Normal [facility] Bacteria Ur Culton Bacteria identified Cx Nom (U) ORGANISM ID: 1 <10,000 CFU/ml Normal urogenital tracey Normal [facility] Comment on above: Performed By: #### 6 30-4 ####[facility] LABCLIA [id number] [place] [address] [place] Basic metabolic 2000 panelon 12-18-2024 Anion gap [Moles/Vol] 11 mmol/L 8 - 15 mmol/L [facility] Calcium [Mass/Vol] 9.2 mg/dL 8.5 - 10. 2 mg/dL [facility] Chloride [Moles/Vol] 97 mmol/L Low 98 - 10 7 mmol/L [facility] CO2 [Moles/Vol] 23 mmol/L 22 - 30 mmol/L [facility] Creatinine [Mass/Vol] 0.86 mg/dL 0.73 - 1.22 mg/dL [facility] GFR/1.73 sq M.predicted among non-blacks MDRD (S/P/Bld) [Vol rate/Area] 105 mL/min/{1.73_m2} - PINF [facility] [facility] Comment on above: Estimated Glomerular Filtration Rate (eGFR) is calculated using the 2020 CKD-EPI creatinine equation. This equation utilizes serum creatinine, sex, and age as parameters. The creatinine assay has traceable calibration to isotope dilution-mass spectrometry. Refer to KDIGO guidelines for clinical interpretation. In patients with unstable renal function, e.g. those with acute kidney injury, the eGFR may not accurately reflect actual GFR. Glucose [Mass/Vol] 204 mg/dL High 74 - 99 mg/dL [facility] Comment on above: The [place] Diab[employer] Association (ADA) provides guidance for cutoff values for fasting glucose and random glucose. The ADA defines fasting as no caloric intake for at least 8 hours. Fasting plasma glucose results between 100 to 125 mg/dL indicate increased risk for diabetes (prediabetes). Fasting plasma glucose results greater than or equal to 126 mg/dL meet the criteria for diagnosis of diabetes. In the absence of unequivocal hyperglycemia, results should be confirmed by repeat testing. In a patient with classic symptoms of hyperglycemia or hyperglycemic crisis, random plasma glucose results greater than or equal to 200 mg/dL meet the criteria for diagnosis of diabetes. Reference: Standards of Medical Care in Diabetes 2016, [place] Diabetes Association. Diabetes Care. 2016.39(Suppl 1). Potassium [Moles/Vol] 4.3 mmol/L 3.7 - 5.1 mmol/L [facility] Sodium [Moles/Vol] 131 mmol/L Low 136 - 144 mmol/L [facility] Urea nitrogen [Mass/Vol] 11 mg/dL 9 - 24 mg/dL [facility] Anion gap [Moles/Vol] 11 mmol/L Normal 8-15 [facility] Comment on above: Order Comment: Speci men Type: BLOOD SPECIMENOrdering Facility: [facility] Address: [address] [place], [place] [address] Performed By: #### 2 4321-2, 90465-2, 2275-10 ####[facility] LABCLIA [id number] [address] [address] [place] Calcium [Mass/Vol] 9.2 mg/dL Normal 8.5-10.[address] [facility] Comment on above: Order Comment: Speci men Type: BLOOD SPECIMENOrdering Facility: [facility] Address: [address] [place], [place] [address] Performed By: #### 2 4321-2, 70331-3, 2275-10 ####[facility] LABCLIA [id number] [place] [address] [place] Chloride [Moles/Vol] 97 mmol/L Low 98-107 [facility] Comment on above: Order Comment: Speci men Type: BLOOD SPECIMENOrdering Facility: [facility] Address: [address] [place], [place] [address] Performed By: #### 2 4321-2, 39270-3, 2275-10 ####[facility] LABIA [id number] [place] [address] [place] CO2 [Moles/Vol] 23 mmol/L Normal 22-30 [facility] Comment on above: Order Comment: Speci men Type: BLOOD SPECIMENOrdering Facility: [facility] Address: [address] [place] [address] Performed By: #### 2 4321-2, 08963-2, 2275-10 ####[facility] LABIA [id number] [address] [address] [place] Creatinine [Mass/Vol] 0.86 mg/dL Normal 0.73-1.22 [facility] Comment on above: Order Comment: Speci men Type: BLOOD SPECIMENOrdering Facility: [facility] Address: [address] [place], [place] [address] Performed By: #### 2 4321-2, 07165-4, 2276-4 ####[facility] LABCLIA [id number] [place] [address] [place] Creatinine and Glomerular filtration rate.predicted panel (S/P/Bld) 105 mL/min/1.73m??? Normal >=60 [facility] Comment on above: Order Comment: Maryann raines Type: BLOOD SPECIMENOrdering Facility: [facility] Address: [address] [place] [address] Result Comment: Anika mated Glomerular Filtration Rate (eGFR) is calculated using the 2020 CKD-EPI creatinine equation. This equation utilizes serum creatinine, sex, and age as parameters. The creatinine assay has traceable calibration to isotope dilution-mass spectrometry. Refer to KDIGO guidelines for clinical interpretation. In patients with unstable renal function, e.g. those with acute kidney injury, the eGFR may not accurately reflect actual GFR. Performed By: #### 2 4321-2, 10992-0, 6-4 ####[facility] LABIA [id number] [place] [address] [place] Glucose [Mass/Vol] 204 mg/dL High 74-[address] [facility] Comment on above: Order Comment: Maryann raines Type: BLOOD SPECIMENOrdering Facility: [facility] Address: [address] [place] [address] Result Comment: The [place] Diabetes Association (ADA) provides guidance for cutoff values for fasting glucose and random glucose. The ADA defines fasting as no caloric intake for at least 8 hours. Fasting plasma glucose results between 100 to 125 mg/dL indicate increased risk for diabetes (prediabetes). Fasting plasma glucose results greater than or equal to 126 mg/dL meet the criteria for diagnosis of diabetes. In the absence of unequivocal hyperglycemia, results should be confirmed by repeat testing. In a patient with classic symptoms of hyperglycemia or hyperglycemic crisis, random plasma glucose results greater than or equal to 200 mg/dL meet the criteria for diagnosis of diabetes. Reference: Standards of Medical Care in Diabetes 2016, [place] Diabetes Association. Diabetes Care. 2016.39(Suppl 1). Performed By: #### 2 4321-2, 10481-7, 6-4 ####[facility] LABCLIA [id number] [place] [address] [place] Potassium [Moles/Vol] 4.3 mmol/L Normal 3.7-5.1 [facility] Comment on above: Order Comment: Speci men Type: BLOOD SPECIMENOrdering Facility: [facility] Address: [address] [place] [address] Performed By: #### 2 4321-2, 54694-9, 2275-10 ####[facility] LABIA [id number] [place] [address] [place] Sodium [Moles/Vol] 131 mmol/L Low 136-[address] [facility] Comment on above: Order Comment: Speci men Type: BLOOD SPECIMENOrdering Facility: [facility] Address: [address] [place] [address] Performed By: #### 2 4321-2, 61050-5, 2275-10 ####[facility] LABIA [id number] [place] [address] [place] Urea nitrogen [Mass/Vol] 11 mg/dL Normal 9-24 [facility] Comment on above: Order Comment: Speci men Type: BLOOD SPECIMENOrdering Facility: [facility] Address: [address] [place] [address] Performed By: #### 2 4321-2, 76337-5, 2275-10 ####[facility] LABIA [id number] [place] [id number] [place] CBC W Auto Differential pane l (Bld)on 12-18-2024 Basophils (Bld) [#/Vol] 0.1 10*3/uL [facility] Basophils/100 WBC (Bld) 1 % [facility] Differential cell count method Nom (Bld) Auto [facility] Eosinophils (Bld) [#/Vol] 0.2 10*3/uL [facility] Eosinophils/100 WBC (Bld) 2 % [facility] Erythrocyte distribution width (RBC) [Ratio] 13.2 % 11.5 - 15.0 % [facility] Hematocrit (Bld) [Volume fraction] 35.8 % Low 39.0 - 51.0 % [facility] Hemoglobin (Bld) [Mass/Vol] 11.6 g/dL Low 13.0 - 17.0 g/dL [facility] Immature granulocytes (Bld) [#/Vol] 0.05 10*3/uL [facility] Immature granulocytes/100 WBC (Bld) 0.5 % [facility] Interpretation and review of laboratory results Abnormal [facility] Lymphocytes (Bld) [#/Vol] 1.99 10*3/uL [facility] Lymphocytes/100 WBC (Bld) 20 % [facility] MCH (RBC) [Entitic mass] 27.9 pg 26.0 - 34.0 pg [facility] MCHC (RBC) [Mass/Vol] 32.4 g/dL 30.5 - 36.0 g/dL [facility] MCV (RBC) [Entitic vol] 86.1 fL 80.0 - 100.0 fL [facility] Monocytes (Bld) [#/Vol] 0.74 10*3/uL [facility] Monocytes/100 WBC (Bld) 7.5 % [facility] Neutrophils (Bld) [#/Vol] 6.85 10*3/uL [facility] Neutrophils/100 WBC (Bld) 69 % [facility] Nucleated RBC (Bld) [#/Vol] [facility] Nucleated RBC/100 WBC (Bld) [Ratio] 0 % /100 WBC [facility] Platelet mean volume (Bld) [Entitic vol] 11.3 fL 9.0 - 12.7 fL [facility] Platelets (Bld) [#/Vol] 345 10*3/uL [facility] RBC (Bld) [#/Vol] 4.16 10*6/uL Low 4.20 - 6.00 m/uL [facility] WBC (Bld) [#/Vol] 9.93 10*3/uL [facility] Basophils (Bld) [#/Vol] 0.10 10*3/uL Normal <0.11 [facility] Comment on above: Order Comment: Speci men Type: BLOOD SPECIMENOrdering Facility: [facility] Address: [address] [place] [address] Performed By: #### 5 7021-8, 4536-7 ####[facility] LABCLIA [id number] [place] [address] [place] Basophils/100 WBC (Bld) 1.0 % Normal [facility] Comment on above: Order Comment: Speci men Type: BLOOD SPECIMENOrdering Facility: [facility] Address: [address] [place] [address] Performed By: #### 5 7021-8, 7 ####[facility] LABCLIA [id number] [place] [address] [place] Differential cell count method Nom (Bld) Auto Normal [facility] Comment on above: Order Comment: Speci men Type: BLOOD SPECIMENOrdering Facility: [facility] Address: [address] [place] [address] Performed By: #### 5 7021-8, 7 ####[facility] LABCLIA [id number] [place] [address] [place] Eosinophils (Bld) [#/Vol] 0.20 10*3/uL Normal <0.46 [facility] Comment on above: Order Comment: Speci men Type: BLOOD SPECIMENOrdering Facility: [facility] Address: [address] [place] [address] Performed By: #### 5 7021-8, 7 ####[facility] LABCLIA [id number] [place] [address] [place] Eosinophils/100 WBC (Bld) 2.0 % Normal [facility] Comment on above: Order Comment: Speci men Type: BLOOD SPECIMENOrdering Facility: [facility] Address: [address] [place] [address] Performed By: #### 5 7021-8, 4536-7 ####[facility] LABCLIA [id number] [place] [address] [place] Erythrocyte distribution width (RBC) [Ratio] 13.2 % Normal 11.5-15.0 [facility] Comment on above: Order Comment: Speci men Type: BLOOD SPECIMENOrdering Facility: [facility] Address: [address] [place] [address] Performed By: #### 5 7021-8, 4537-7 ####[facility] LABIA [id number] [place] [address] [place] Hematocrit (Bld) [Volume fraction] 35.8 % Low 39.0-51.0 [facility] Comment on above: Order Comment: Speci men Type: BLOOD SPECIMENOrdering Facility: [facility] Address: [address] [place] [address] Performed By: #### 5 7021-8, 4537-7 ####[facility] [id number] [place] [address] [place] Hemoglobin (Bld) [Mass/Vol] 11.6 g/dL Low 13.0-17.0 [facility] Comment on above: Order Comment: Speci men Type: BLOOD SPECIMENOrdering Facility: [facility] Address: [address] [place] [address] Performed By: #### 5 7021-8, 7-7 ####[facility] LABIA [id number] [place] [address] [place] Immature granulocytes (Bld) [#/Vol] 0.05 10*3/uL Normal <0.10 [facility] Comment on above: Order Comment: Speci men Type: BLOOD SPECIMENOrdering Facility: [facility] Address: [address] [place] [address] Performed By: #### 5 7021-8, 7-7 ####[facility] LABIA [id number] [place] [address] [place] Immature granulocytes/100 WBC (Bld) 0.5 % Normal [facility] Comment on above: Order Comment: Speci men Type: BLOOD SPECIMENOrdering Facility: [facility] Address: [address] [place] [address] Performed By: #### 5 7021-8, 4536-7 ####[facility] LABCLIA [id number] [place] [address] [place] Lymphocytes (Bld) [#/Vol] 1.99 10*3/uL Normal 1.00-4.00 [facility] Comment on above: Order Comment: Speci men Type: BLOOD SPECIMENOrdering Facility: [facility] Address: [address] [place] [address] Performed By: #### 5 7021-8, 7 ####[facility] LABCLIA [id number] [address] [place] Lymphocytes/100 WBC (Bld) 20.0 % Normal [facility] Comment on above: Order Comment: Speci men Type: BLOOD SPECIMENOrdering Facility: [facility] Address: [address] [place] [address] Performed By: #### 5 7021-8, 7 ####[facility] LABCLIA [id number] [place] [address] [place] MCH (RBC) [Entitic mass] 27.9 pg Normal 26.0-34.0 [facility] Comment on above: Order Comment: Speci men Type: BLOOD SPECIMENOrdering Facility: [facility] Address: [address] [place] [address] Performed By: #### 5 7021-8, 4536-7 ####[facility] LABCLIA [id number] [place] [id number] [place] MCHC (RBC) [Mass/Vol] 32.4 g/dL Normal 30.5-36.0 [facility] Comment on above: Order Comment: Speci men Type: BLOOD SPECIMENOrdering Facility: [facility] Address: [address] [place] [address] Performed By: #### 5 7021-8, 4536-7 ####[facility] LABCLIA [id number] [place] [id number] [place] MCV (RBC) [Entitic vol] 86.1 fL Normal 80.0-100.0 [facility] Comment on above: Order Comment: Speci men Type: BLOOD SPECIMENOrdering Facility: [facility] Address: [address] [place] [address] Performed By: #### 5 7021-8, 7 ####[facility] LABCLIA [id number] [place] [address] [place] Monocytes (Bld) [#/Vol] 0.74 10*3/uL Normal <0.87 [facility] Comment on above: Order Comment: Speci men Type: BLOOD SPECIMENOrdering Facility: [facility] Address: [address] [place] [address] Performed By: #### 5 7021-8, 7 ####[facility] LABCLIA [id number] [place] [address] [place] Monocytes/100 WBC (Bld) 7.5 % Normal [facility] Comment on above: Order Comment: Speci men Type: BLOOD SPECIMENOrdering Facility: [facility] Address: [address] [place] [address] Performed By: #### 5 7021-8, 4536-7 ####[facility] LABCLIA [id number] [place] [id number] [place] Neutrophils (Bld) [#/Vol] 6.85 10*3/uL Normal 1.45-7.50 [facility] Comment on above: Order Comment: Speci men Type: BLOOD SPECIMENOrdering Facility: [facility] Address: [address] [place] [address] Performed By: #### 5 7021-8, 4536-7 ####[facility] LABCLIA [id number] [place] [address] [place] Neutrophils/100 WBC (Bld) 69.0 % Normal [facility] Comment on above: Order Comment: Speci men Type: BLOOD SPECIMENOrdering Facility: [facility] Address: [address] [place] [address] Performed By: #### 5 7021-8, 4536-7 ####[facility] LABCLIA [id number] [place] [address] [place] Nucleated RBC (Bld) [#/Vol] 10*3/uL Normal <0.01 [facility] Comment on above: Order Comment: Speci men Type: BLOOD SPECIMENOrdering Facility: [facility] Address: [address] [place] [address] Performed By: #### 5 7021-8, 4536-7 ####[facility] LABIA [id number] [place] [address] [place] Nucleated RBC/100 WBC (Bld) [Ratio] 0.0 /100 WBC Normal [facility] Comment on above: Order Comment: Speci men Type: BLOOD SPECIMENOrdering Facility: [facility] Address: [address] [place] [address] Performed By: #### 5 7021-8, 4536-7 ####[facility] LABIA [id number] [place] [address] [place] Platelet mean volume (Bld) [Entitic vol] 11.3 fL Normal 9.0-12.7 [facility] Comment on above: Order Comment: Speci men Type: BLOOD SPECIMENOrdering Facility: [facility] Address: [address] [place] [address] Performed By: #### 5 7021-8, 4536-7 ####[facility] LABCLIA [id number] [place] [address] [place] Platelets (Bld) [#/Vol] 345 10*3/uL Normal 150-400 [facility] Comment on above: Order Comment: Speci men Type: BLOOD SPECIMENOrdering Facility: [facility] Address: [address] [place] [address] Performed By: #### 5 7021-8, 4537-7 ####[facility] [id number] [place] [address] [place] RBC (Bld) [#/Vol] 4.16 10*6/uL Low 4.20-6.00 [facility] Comment on above: Order Comment: Speci men Type: BLOOD SPECIMENOrdering Facility: [facility] Address: [address] [place] [address] Performed By: #### 5 7021-8, 4537-7 ####[facility] [id number] [place] [address] [place] WBC (Bld) [#/Vol] 9.93 10*3/uL Normal 3.70-11.00 [facility] Comment on above: Order Comment: Speci men Type: BLOOD SPECIMENOrdering Facility: [facility] Address: [address] [place] [address] Performed By: #### 5 7021-8, 4537-7 ####[facility] [id number] [place] [address] [place] CNPKierra 12-18-2024 CNPN Telephone (FAMPWS) HYUN CAIN ([id number]) 1975 M Date Time Provider Department 12/18/24 CRISTIAN BARNETTWS During your visit today, we recorded the following information about you: Cristian Barnett MD 12/18/2024 12:08 PM Signed Still needs to come into labs and get their urine test. UA and C and s He is slightly anemic. Sodium is low. Recheck anemic labs and sodium. Raiza Mcdonald LPN 12/18/2024 12:34 PM Signed Patient notified. Has urine test to bring back to lab. Allergies As of Date: 12/18/2024 Noted Allergy Reaction AUGMENTIN (AMOXICILLIN-POT CLAVUL*05/08/2011 6 - Diarrhea BACTRIM (SULFAMETHOXAZOLE) 06/27/2012 7 - Swelling Date Reviewed: 12/15/2024 Reviewed by: Raiza Mcdonald LPN - Fully Assessed Reason for Visit: Results [95] Primary Visit Diagnosis:Anemia, unspecified type [D64.9] Order(s):BASIC METABOLIC PANEL [SQBMP] Order #: [id number] FUTURE COMPLETE BLOOD COUNT AND DIFFERENTIAL [SQCBCDIF] Order #: [id number] FUTURE IRON AND TIBC [SQIRON] Order #: [id number] FUTURE VITAMIN B12 [SQB12] Order #: [id number] FUTURE FOLATE, SERUM [SQSERFOL] Order #: [id number] FUTURE FERRITIN [SQFERR] Order #: [id number] FUTURE SEDIMENTATION RATE, WESTERGREN [SQWSR] Order #: [id number] FUTURE Prescriptions as of 12/18/2024 - oxyCODONE ir (OXYIR) 5 mg capsule Take 5 mg by mouth every 6 hours as needed for pain. - ondansetron orally disintegrating (ZOFRAN ODT) 4 mg disintegrating tablet Take 1 tablet by mouth every 8 hours as needed for nausea/vomiting. - RABEprazole (ACIPHEX) 20 mg tablet Take 1 tablet by mouth once daily. Meds Comments as of 04/03/2019: Uses medication to help with bladder control, unsure what medication is. 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 Comment on above: Order Comment: Speci men Type: BLOOD SPECIMENOrdering Facility: [facility] Address: [address] [place] [address] Performed By: #### 5 7021-8, 4537-7 ####[facility] LABCLIA [id number] [place] [address] [place] FERRITINon 12-18-2024 Ferritin [Mass/Vol] 419 ng/mL 30.3 - 565.7 ng/mL [facility] Ferritin SerPl-mCncon 2024 Ferritin [Mass/Vol] 419.0 ng/mL Normal 30.3-565.7 [facility] Comment on above: Order Comment: Speci men Type: BLOOD SPECIMENOrdering Facility: [facility] Address: [address] [place] [address] Performed By: #### 2 4321-2, 82702-4, 6-4 ####[facility] LABCLIA [id number] [address] [address] [place] Ferritin [Mass/Vol]on 2024 Interpretation and review of laboratory results Normal [facility] Folate SerPl-mCncon 12-19-19 25 Folate [Mass/Vol] 4.6 ng/mL Low >4.7 [facility] Comment on above: Order Comment: Speci men Type: BLOOD SPECIMENOrdering Facility: [facility] Address: [address] [place] [address] Performed By: #### 2 284-8, 2132-9 ####[facility] LABCLIA [id number] [place] [id number] [place] Iron and Iron binding capaci panelon 12-18-2024 Iron [Mass/Vol] 16 ug/dL Low 41 - 186 ug/dL [facility] Iron binding capacity [Mass/Vol] 249 ug/dL 232 - 386 ug/dL [facility] Iron/TIBC [Molar ratio] 6.4 % Low 15.0 - 57.0 % [facility] Iron [Mass/Vol] 16 ug/dL Low 41-186 [facility] Comment on above: Order Comment: Speci men Type: BLOOD SPECIMENOrdering Facility: [facility] Address: [address] [place] [address] Performed By: #### 2 4321-2, 50747-2, 2275-10 ####[facility] LABCLIA [id number] [address] [address] [place] Iron binding capacity [Mass/Vol] 249 ug/dL Normal 232-386 [facility] Comment on above: Order Comment: Speci men Type: BLOOD SPECIMENOrdering Facility: [facility] Address: [address] [place] [address] Performed By: #### 2 4321-2, 22860-4, 2275- ####[facility] LABCLIA [id number] [address] [address] [place] Iron/TIBC [Molar ratio] 6.4 % Low 15.0-57.0 [facility] Comment on above: Order Comment: Speci men Type: BLOOD SPECIMENOrdering Facility: [facility] Address: [address] [place] [address] Performed By: #### 2 4321-2, 01451-5, 2276-4 ####[facility] LABIA [id number] [place] [address] [place] No Panel Informationon 12-18 Interpretation and review of laboratory results Abnormal [facility] Urinalysis complete panel (U )on 12-18-2024 Bacteria LM.HPF (Urine sed) [#/Area] Negative Normal Negative [facility] Comment on above: Order Comment: Speci men Type: URINE SPECIMENOrdering Facility: [facility] Address: [address] [place] [address] Performed By: #### 2 4356-8 ####[facility] LABIA [id number] [place] [address] [place] Bilirubin Ql (U) Negative Normal Negative [facility] Comment on above: Order Comment: Speci men Type: URINE SPECIMENOrdering Facility: [facility] Address: [address] [place] [address] Performed By: #### 2 4356-8 ####[facility] LABIA [id number] [place] [address] [place] Clarity (Unsp spec) Clear Normal Clear [facility] Comment on above: Order Comment: Speci men Type: URINE SPECIMENOrdering Facility: [facility] Address: [address] [place] [address] Performed By: #### 2 4356-8 ####[facility] LABCLIA [id number] [place] [id number] [place] Color (U) Yellow Normal Yellow [facility] Comment on above: Order Comment: Speci men Type: URINE SPECIMENOrdering Facility: [facility] Address: [address] [place] [address] Performed By: #### 2 4356-8 ####[facility] LABCLIA [id number] [address] [place] Epithelial cells LM.HPF (Urine sed) [#/Area] None Seen Normal [facility] Comment on above: Order Comment: Speci men Type: URINE SPECIMENOrdering Facility: [facility] Address: [address] [place] [address] Performed By: #### 2 4356-8 ####[facility] LABCLIA [id number] [address] STATES OF [facility] Glucose Test strip (U) [Mass/Vol] Trace Abnormal Negative [facility] Comment on above: Order Comment: Speci men Type: URINE SPECIMENOrdering Facility: [facility] Address: [address] [place] [address] Performed By: #### 2 4356-8 ####[facility] LABCLIA [id number] [place] [address] [place] Hemoglobin Ql (U) Negative Normal Negative [facility] Comment on above: Order Comment: Speci men Type: URINE SPECIMENOrdering Facility: [facility] Address: [address] [place] [address] Performed By: #### 2 4356-8 ####[facility] LABCLIA [id number] [address], [facility] [place] Hyaline casts (Urine sed) [#/Area] 1-3 /LPF Abnormal 0 /LPF [facility] Comment on above: Order Comment: Speci men Type: URINE SPECIMENOrdering Facility: [facility] Address: [address] [place] [address] Performed By: #### 2 4356-8 ####[facility] LABCLIA [id number] [place] [id number] [place] Ketones Ql (U) Negative Normal Negative [facility] Comment on above: Order Comment: Speci men Type: URINE SPECIMENOrdering Facility: [facility] Address: [address] [place] [address] Performed By: #### 2 4356-8 ####[facility] LABCLIA [id number] [place] [address] [place] Leukocyte esterase Test strip Ql (U) Negative Normal Negative [facility] Comment on above: Order Comment: Speci men Type: URINE SPECIMENOrdering Facility: [facility] Address: [address] [place] [address] Performed By: #### 2 4356-8 ####[facility] LABCLIA [id number] [place] [address] [place] Nitrite Ql (U) Negative Normal Negative [facility] Comment on above: Order Comment: Speci men Type: URINE SPECIMENOrdering Facility: [facility] Address: [address] [place] [address] Performed By: #### 2 4356-8 ####[facility] LABCLIA [id number] [place] [address] [place] pH (U) 6.0 [pH] Normal <8.5 [facility] Comment on above: Order Comment: Speci men Type: URINE SPECIMENOrdering Facility: [facility] Address: [address] [place] [address] Performed By: #### 2 4356-8 ####[facility] LABCLIA [id number] [place] [address] [place] Protein (U) [Mass/Vol] Negative Normal Negative [facility] Comment on above: Order Comment: Speci men Type: URINE SPECIMENOrdering Facility: [facility] Address: [address] [place] [address] Performed By: #### 2 4356-8 ####[facility] LABCLIA [id number] [place] [address] [place] RBC LM.HPF (Urine sed) [#/Area] 0-2 /HPF Normal 0-2 /HPF [facility] Comment on above: Order Comment: Speci men Type: URINE SPECIMENOrdering Facility: [facility] Address: [address] [place] [address] Performed By: #### 2 4356-8 ####[facility] LABIA [id number] [place] [address] [place] Specific gravity (U) [Rel density] 1.017 Normal 1.005-1.03 0 [facility] Comment on above: Order Comment: Speci men Type: URINE SPECIMENOrdering Facility: [facility] Address: [address] [place] [address] Performed By: #### 2 4356-8 ####[facility] LABIA [id number] [address] [place] Urobilinogen Ql (U) 0.2 EU/dL Normal 0.2-1.0 EU/dL [facility] Comment on above: Order Comment: Speci men Type: URINE SPECIMENOrdering Facility: [facility] Address: [address] [place] [address] Performed By: #### 2 4356-8 ####[facility] LABIA [id number] [place] [address] [place] WBC LM.HPF (Urine sed) [#/Area] 0-5 /HPF Normal 0-5 /HPF [facility] Comment on above: Order Comment: Speci men Type: URINE SPECIMENOrdering Facility: [facility] Address: [address] [place] [address] Performed By: #### 2 4356-8 ####[facility] LABIA [id number] [place] [address] [place] Vit B12 [facility] Cobalamin (Vitamin B12) [Mass/Vol] 346 pg/mL Normal 232-1245 [facility] Comment on above: Order Comment: Speci men Type: BLOOD SPECIMENOrdering Facility: [facility] Address: [address] [place] [address] Performed By: #### 2 284-8, 2132-9 ####[facility] LABCLIA [id number] [place] [address] [place] CBC W Auto Differential pane l (Bld)on 12-15-2024 Basophils (Bld) [#/Vol] 0.10 10*3/uL Normal <0.11 [facility] Comment on above: Order Comment: Speci men Type: BLOOD SPECIMENOrdering Facility: [facility] Address: [address] [place] [address] Performed By: #### 5 7021-8 ####[facility] LABCLIA [id number] [place] [address] [place] Basophils/100 WBC (Bld) 0.9 % Normal [facility] Comment on above: Order Comment: Speci men Type: BLOOD SPECIMENOrdering Facility: [facility] Address: [address] [place] [address] Performed By: #### 5 7021-8 ####[facility] LABCLIA [id number] [place] [address] [place] Differential cell count method Nom (Bld) Auto Normal [facility] Comment on above: Order Comment: Speci men Type: BLOOD SPECIMENOrdering Facility: [facility] Address: [address] [place] [address] Performed By: #### 5 7021-8 ####[facility] LABCLIA [id number] [place] [address] [place] Eosinophils (Bld) [#/Vol] 0.11 10*3/uL Normal <0.46 [facility] Comment on above: Order Comment: Speci men Type: BLOOD SPECIMENOrdering Facility: [facility] Address: [address] [place] [address] Performed By: #### 5 7021-8 ####[facility] LABCLIA [id number] [place] [address] [place] Eosinophils/100 WBC (Bld) 1.0 % Normal [facility] Comment on above: Order Comment: Speci men Type: BLOOD SPECIMENOrdering Facility: [facility] Address: [address] [place] [address] Performed By: #### 5 7021-8 ####[facility] LABIA [id number] [place] [address] [place] Erythrocyte distribution width (RBC) [Ratio] 13.0 % Normal 11.5-15.0 [facility] Comment on above: Order Comment: Speci men Type: BLOOD SPECIMENOrdering Facility: [facility] Address: [address] [place] [address] Performed By: #### 5 7021-8 ####[facility] LABIA [id number] [place] [address] [place] Hematocrit (Bld) [Volume fraction] 37.9 % Low 39.0-51.0 [facility] Comment on above: Order Comment: Speci men Type: BLOOD SPECIMENOrdering Facility: [facility] Address: [address] [place] [address] Performed By: #### 5 7021-8 ####[facility] LABCLIA [id number] [place] [address] [place] Hemoglobin (Bld) [Mass/Vol] 12.4 g/dL Low 13.0-17.0 [facility] Comment on above: Order Comment: Speci men Type: BLOOD SPECIMENOrdering Facility: [facility] Address: [address] [place] [address] Performed By: #### 5 7021-8 ####[facility] LABCLIA [id number] [address] [address] [place] Immature granulocytes (Bld) [#/Vol] 0.08 10*3/uL Normal <0.10 [facility] Comment on above: Order Comment: Speci men Type: BLOOD SPECIMENOrdering Facility: [facility] Address: [address] [place] [address] Performed By: #### 5 7021-8 ####[facility] LABCLIA [id number] [place] [address] [place] Immature granulocytes/100 WBC (Bld) 0.7 % Normal [facility] Comment on above: Order Comment: Speci men Type: BLOOD SPECIMENOrdering Facility: [facility] Address: [address] [place] [address] Performed By: #### 5 7021-8 ####[facility] LABCLIA [id number] [place] [address] [place] Lymphocytes (Bld) [#/Vol] 1.68 10*3/uL Normal 1.00-4.00 [facility] Comment on above: Order Comment: Speci men Type: BLOOD SPECIMENOrdering Facility: [facility] Address: [address] [place] [address] Performed By: #### 5 7021-8 ####[facility] LABCLIA [id number] [place] [address] [place] Lymphocytes/100 WBC (Bld) 14.6 % Normal [facility] Comment on above: Order Comment: Speci men Type: BLOOD SPECIMENOrdering Facility: [facility] Address: [address] [place] [address] Performed By: #### 5 7021-8 ####[facility] LABCLIA [id number] [place] [id number] [place] MCH (RBC) [Entitic mass] 28.0 pg Normal 26.0-34.0 [facility] Comment on above: Order Comment: Speci men Type: BLOOD SPECIMENOrdering Facility: [facility] Address: [address] [place] [address] Performed By: #### 5 7021-8 ####[facility] LABCLIA [id number] [place] [address] [place] MCHC (RBC) [Mass/Vol] 32.7 g/dL Normal 30.5-36.0 [facility] Comment on above: Order Comment: Speci men Type: BLOOD SPECIMENOrdering Facility: [facility] Address: [address] [place] [address] Performed By: #### 5 7021-8 ####[facility] LABIA [id number] [place] [address] [place] MCV (RBC) [Entitic vol] 85.6 fL Normal 80.0-100.0 [facility] Comment on above: Order Comment: Speci men Type: BLOOD SPECIMENOrdering Facility: [facility] Address: [address] [place] [address] Performed By: #### 5 7021-8 ####[facility] LABIA [id number] [place] [address] [place] Monocytes (Bld) [#/Vol] 0.72 10*3/uL Normal <0.87 [facility] Comment on above: Order Comment: Speci men Type: BLOOD SPECIMENOrdering Facility: [facility] Address: [address] [place] [address] Performed By: #### 5 7021-8 ####[facility] LABCLIA [id number] [place] [address] [place] Monocytes/100 WBC (Bld) 6.3 % Normal [facility] Comment on above: Order Comment: Speci men Type: BLOOD SPECIMENOrdering Facility: [facility] Address: [address] [place] [address] Performed By: #### 5 7021-8 ####[facility] LABCLIA [id number] [place] [address] [place] Neutrophils (Bld) [#/Vol] 8.80 10*3/uL High 1.45-7.50 [facility] Comment on above: Order Comment: Speci men Type: BLOOD SPECIMENOrdering Facility: [facility] Address: [address] [place] [address] Performed By: #### 5 7021-8 ####[facility] LABCLIA [id number] [place] [address] [place] Neutrophils/100 WBC (Bld) 76.5 % Normal [facility] Comment on above: Order Comment: Speci men Type: BLOOD SPECIMENOrdering Facility: [facility] Address: [address] [place] [address] Performed By: #### 5 7021-8 ####[facility] LABCLIA [id number] [place] [address] [place] Nucleated RBC (Bld) [#/Vol] 10*3/uL Normal <0.01 [facility] Comment on above: Order Comment: Speci men Type: BLOOD SPECIMENOrdering Facility: [facility] Address: [address] [place] [address] Performed By: #### 5 7021-8 ####[facility] LABCLIA [id number] [place] [address] [place] Nucleated RBC/100 WBC (Bld) [Ratio] 0.0 /100 WBC Normal [facility] Comment on above: Order Comment: Speci men Type: BLOOD SPECIMENOrdering Facility: [facility] Address: [address] [place] [address] Performed By: #### 5 7021-8 ####[facility] LABCLIA [id number] [place] [id number] [place] Platelet mean volume (Bld) [Entitic vol] 11.9 fL Normal 9.0-12.7 [facility] Comment on above: Order Comment: Speci men Type: BLOOD SPECIMENOrdering Facility: [facility] Address: [address] [place] [address] Performed By: #### 5 7021-8 ####[facility] LABIA [id number] [place] [address] [place] Platelets (Bld) [#/Vol] 385 10*3/uL Normal 150-400 [facility] Comment on above: Order Comment: Speci men Type: BLOOD SPECIMENOrdering Facility: [facility] Address: [address] [place] [address] Performed By: #### 5 7021-8 ####[facility] LABIA [id number] [place] [address] [place] RBC (Bld) [#/Vol] 4.43 10*6/uL Normal 4.20-6.00 [facility] Comment on above: Order Comment: Speci men Type: BLOOD SPECIMENOrdering Facility: [facility] Address: [address] [place] [address] Performed By: #### 5 7021-8 ####[facility] LABIA [id number] [place] [address] [place] WBC (Bld) [#/Vol] 11.49 10*3/uL High 3.70-11.00 [facility] Comment on above: Order Comment: Speci men Type: BLOOD SPECIMENOrdering Facility: [facility] Address: [address] [place] [address] Performed By: #### 5 7021-8 ####[facility] LABIA [id number] [place] [id number] [place] CNOVon 12-15-2024 CNOV Office Visit (FAMPWS ) HYUN CAIN ([id number]) 1975 M Date Time Provider Department 12/15/24 2:20 PM CRISTIAN BARNETT FAMPWS During your visit today, we recorded the following information about you: Pulse Blood pressure Weight 111/minute 102/62 72.6 kg Cristian Barnett MD 12/15/2024 2:51 PM Signed - Continue your current opioid pain medication as prescribed; obtain refills only from this office and avoid using other opioids or illegal drugs. You have nine pills left--call when you?re close to running out. - Start a stool softener (for example, Miralax or Colace) with your pain medication to help relieve constipation. - Provide a urine sample for a urine drug screen and urinalysis when you go for your lab work. - Have blood drawn today or tomorrow for a complete blood count (CBC), comprehensive metabolic panel (CMP), erythrocyte sedimentation rate (ESR), and C-reactive protein (CRP). - Obtain a stat abdominal x-ray (KUB) as ordered to check for possible obstruction. - Consider restarting metformin to help control your blood sugar--discuss this with your primary provider or at your next visit. - Attend your scheduled biopsy on December 27; arrange for transportation and someone to stay with you for at least 24 hours afterward. - If your abdominal pain becomes severe, or if you develop fever, chills, or other concerning symptoms, go to the emergency department. - Schedule a follow-up appointment in about six weeks to reassess your pain control and opioid use; call our office to set the date when you need your next refill. Cristian Barnett MD 12/15/2024 4:41 PM Signed Hyun Cain is a 49-year-old male with a history of DM, presenting for opioid management and evaluation of abdominal pain, weight loss, and night sweats. HPI Opioid Management: - Taking opioids for pain management. - Brought medication bottles for verification. - Reports occasional marijuana use. Discussed risks of mixing the two. Again is being worked up for likelky metastatic malignancy. Abdominal Pain: - Left-sided abdominal pain, initially evaluated in the ED on 11/22/2024. - CT scan revealed numerous pulmonary nodules, mediastinal and hilar lymphadenopathy, a small right hepatic low hypodensity, and a large centrally necrotic retroperitoneal and gastric area of lymphadenopathy. - Biopsy initially scheduled for 12/12/2024, rescheduled to 12/27/2024. - Pain has shifted slightly; associated with constipation, no bowel movement for 5-6 days. - Denies abdominal distension. - Reports nausea and emesis when using marijuana. - Decreased appetite, unsure if due to nerves. - Denies hematochezia or melena. - Reports hematuria and weak urinary stream. Weight Loss: - Weight decreased from 178 lbs in October of last year to 160 lbs currently. - Decreased appetite, unsure if due to nerves. Night Sweats: - Reports waking up drenched with night sweats, accompanied by an odor. - Denies cough. Diabetes Mellitus: - Not taking Metformin, reports it doesn't even cross my mind. - Concerns about potential cardiac risks from not taking medication. - Reports occasional pain between ribs. - Long history of smoking, attempting to quit but finds it challenging. MEDICATIONS: Current Outpatient Medications Medication Sig ondansetron orally disintegrating (ZOFRAN ODT) 4 mg disintegrating tablet Take 1 tablet by mouth every 8 hours as needed for nausea/vomiting. RABEprazole (ACIPHEX) 20 mg tablet Take 1 tablet by mouth once daily. oxyCODONE ir (OXYIR) 5 mg capsule Take 5 mg by mouth every 6 hours as needed for pain. No current facility-administered medications for this visit. ALLERGIES: ALLERGIES Allergen Reactions Augmentin [Amoxicil* Diarrhea Bactrim [Sulfametho* Swelling PAST MEDICAL HISTORY Diagnosis Date Diaphragmatic hernia without mention of obstruction or gangrene Dysthymic disorder 07/12/2007 Depression (non-psychotic) Esophageal reflux Legally blind Seizures (HCC) childhood PAST SURGICAL HISTORY Procedure Laterality Date APPENDECTOMY 1975 ESOPHAGOGASTRODUODENOSCOPY TRANSORAL DIAGNOSTIC 07/16/2008 EGD PAST SURGICAL HISTORY OF ORIF arm fracture PAST SURGICAL HISTORY OF 1995 Reconstruction of Rt arm after industrial accident RPR 1ST INGUN HRNA AGE 3 YRS/> REDUCIBLE 1975 Hernia repair, inguinal FAMILY HISTORY Problem Relation Age of Onset Diabetes Mother COPD Mother Cancer Maternal Grandfather Social History Tobacco Use Smoking status: Every Day Current packs/day: 1.00 Average packs/day: 1 pack/day for 24.0 years (24.0 ttl pk-yrs) Types: Cigarettes Smokeless tobacco: Never Vaping Use Vaping status: Never Used Substance Use Topics Alcohol use: Yes Drug use: Yes Frequency: 2.0 times per week Comment: [place] per patient Reviewed current medications, allerg (more content not included)... Normal [facility] CRP SerPl-mCncon 12-15-2024 CRP [Mass/Vol] 8.7 mg/dL High <0.9 [facility] Comment on above: Order Comment: Speci men Type: BLOOD SPECIMENOrdering Facility: [facility] Address: [address] [place] [address] Performed By: #### 2 532-0, 3, , 1987-11 ####[facility] LABCLIA [id number] [address] [address] [place] Comprehensive metabolic 2000 panelon 12-15-2024 Albumin [Mass/Vol] 3.9 g/dL Normal 3.9-4.[address] [facility] Comment on above: Order Comment: Speci men Type: BLOOD SPECIMENOrdering Facility: [facility] Address: [address] [place] [address] Performed By: #### 2 532-0, 3, , 1987-11 ####[facility] LABCLIA [id number] [address] [address] [place] ALP [Catalytic activity/Vol] 72 U/L Normal 38-113 [facility] Comment on above: Order Comment: Speci men Type: BLOOD SPECIMENOrdering Facility: [facility] Address: [address] [place], [place] [id number] Performed By: #### 2 532-0, 3015-3, , 1987-11 ####[facility] LABCLIA [id number] [address] [address] [place] ALT [Catalytic activity/Vol] 12 U/L Normal 10-54 [facility] Comment on above: Order Comment: Speci men Type: BLOOD SPECIMENOrdering Facility: [facility] Address: [address] [place] [address] Performed By: #### 2 532-0, 3, , 1987-11 ####[facility] LABCLIA [id number] [facility] [address] [address] [place] Anion gap [Moles/Vol] 16 mmol/L High 8-15 [facility] Comment on above: Order Comment: Speci men Type: BLOOD SPECIMENOrdering Facility: [facility] Address: [address] [place] [address] Performed By: #### 2 532-0, 3, , 1987-11 ####[facility] LABCLIA [id number] [address] [address] [place] AST [Catalytic activity/Vol] 15 U/L Normal 14-40 [facility] Comment on above: Order Comment: Speci men Type: BLOOD SPECIMENOrdering Facility: [facility] Address: [address] [place] [address] Performed By: #### 2 532-0, 3, , 1987-11 ####[facility] LABCLIA [id number] [address] [address] [place] Bilirubin [Mass/Vol] 0.4 mg/dL Normal 0.2-1.3 [facility] Comment on above: Order Comment: Speci men Type: BLOOD SPECIMENOrdering Facility: [facility] Address: [address] [place] [address] Performed By: #### 2 532-0, 3, , 1987-11 ####[facility] LABCLIA [id number] [facility] [address] [address] [place] Calcium [Mass/Vol] 9.5 mg/dL Normal 8.5-10.[address] [facility] Comment on above: Order Comment: Speci men Type: BLOOD SPECIMENOrdering Facility: [facility] Address: [address] [place], [place] [id number] Performed By: #### 2 532-0, 3, , 1987-11 ####[facility] LABCLIA [id number] [address] [address] [place] Chloride [Moles/Vol] 95 mmol/L Low 98-107 [facility] Comment on above: Order Comment: Speci men Type: BLOOD SPECIMENOrdering Facility: [facility] Address: [address] [place], [place] [address] Performed By: #### 2 532-0, 3, , 1987-11 ####[facility] LABCLIA [id number] [address] [address] [place] CO2 [Moles/Vol] 19 mmol/L Low 22-30 [facility] Comment on above: Order Comment: Speci men Type: BLOOD SPECIMENOrdering Facility: [facility] Address: [address] [place], [place] [address] Performed By: #### 2 532-0, 3, , 1987-11 ####[facility] LABCLIA [id number] [address] [address] [place] Creatinine [Mass/Vol] 0.87 mg/dL Normal 0.73-1.22 [facility] Comment on above: Order Comment: Speci men Type: BLOOD SPECIMENOrdering Facility: [facility] Address: [address] [place] [address] Performed By: #### 2 532-0, 3, , 1987-11 ####[facility] LABCLIA [id number] [address] [address] [place] Creatinine and Glomerular filtration rate.predicted panel (S/P/Bld) 104 mL/min/1.73m??? Normal >=60 [facility] Comment on above: Order Comment: Maryann raines Type: BLOOD SPECIMENOrdering Facility: [facility] Address: [address] [place] [address] Result Comment: Anika mated Glomerular Filtration Rate (eGFR) is calculated using the 2020 CKD-EPI creatinine equation. This equation utilizes serum creatinine, sex, and age as parameters. The creatinine assay has traceable calibration to isotope dilution-mass spectrometry. Refer to KDIGO guidelines for clinical interpretation. In patients with unstable renal function, e.g. those with acute kidney injury, the eGFR may not accurately reflect actual GFR. Performed By: #### 2 532-0, 3016-3, , 1987-11 ####[facility] LABIA [id number] [place] [id number] [place] Glucose [Mass/Vol] 182 mg/dL High 74-[address] [facility] Comment on above: Order Comment: Maryann raines Type: BLOOD SPECIMENOrdering Facility: [facility] Address: [address] [place] [address] Result Comment: The [place] Diabetes [employer] (ADA) provides guidance for cutoff values for fasting glucose and random glucose. The ADA defines fasting as no caloric intake for at least 8 hours. Fasting plasma glucose results between 100 to 125 mg/dL indicate increased risk for diabetes (prediabetes). Fasting plasma glucose results greater than or equal to 126 mg/dL meet the criteria for diagnosis of diabetes. In the absence of unequivocal hyperglycemia, results should be confirmed by repeat testing. In a patient with classic symptoms of hyperglycemia or hyperglycemic crisis, random plasma glucose results greater than or equal to 200 mg/dL meet the criteria for diagnosis of diabetes. Reference: Standards of Medical Care in Diabetes 2016, [place] [employer] Association. Diabetes Care. 2016.39(Suppl 1). Performed By: #### 2 532-0, 6-3, , 1987-11 ####[facility] LABIA [id number] [address] [address] [place] Potassium [Moles/Vol] 4.4 mmol/L Normal 3.7-5.1 [facility] Comment on above: Order Comment: Speci men Type: BLOOD SPECIMENOrdering Facility: [facility] Address: [address] [place], [place] [address] Performed By: #### 2 532-0, 3015-3, , 1987-11 ####[facility] LABCLIA [id number] [address] [address] [place] Protein [Mass/Vol] 7.6 g/dL Normal 6.3-8.[address] [facility] Comment on above: Order Comment: Speci men Type: BLOOD SPECIMENOrdering Facility: [facility] Address: [address] [place] [address] Performed By: #### 2 532-0, 3, , 1987-11 ####[facility] LABCLIA [id number] [place] [id number] [place] Sodium [Moles/Vol] 130 mmol/L Low 136-[address] [facility] Comment on above: Order Comment: Speci men Type: BLOOD SPECIMENOrdering Facility: [facility] Address: [address] [place] [address] Performed By: #### 2 532-0, 3, , 1987-11 ####[facility] LABCLIA [id number] [place] [id number] [place] Urea nitrogen [Mass/Vol] 11 mg/dL Normal 9-24 [facility] Comment on above: Order Comment: Speci men Type: BLOOD SPECIMENOrdering Facility: [facility] Address: [address] [place] [address] Performed By: #### 2 532-0, 3, , 1987-11 ####[facility] LABCLIA [id number] [address] [address] [place] LDH SerPl-cCncon 12-15-2024 LDH [Catalytic activity/Vol] 186 U/L Normal 135-225 [facility] Comment on above: Order Comment: Speci men Type: BLOOD SPECIMENOrdering Facility: [facility] Address: [address] [place] [address] Result Comment: Hemo lysis present. The origin of the hemolysis, in vitro versus an in vivo hemolytic process, cannot be distinguished via this assay alone. In vitro hemolysis may lead to non-physiological (spurious) elevation in lactate dehydrogenase (LDH) results. The result should be interpreted in context of the clinical setting and other test results. Suggest reorder as clinically indicated. Performed By: #### 2 532-0, 3016-3, 11525-4, 1987- ####[facility] LABCLIA [id number] [place] [address] [place] TOXICOLOGY SCREEN, ROUTINE U RINEon 12-15-2024 Amphetamines Confirm (U) [Mass/Vol] Negative Normal Negative [facility] Comment on above: Order Comment: Speci men Type: URINE SPECIMENOrdering Facility: [facility] Address: [address] [place] [address] Result Comment: Cuto ff threshold at 1000 ng/mL. Performed By: #### U TOX2 ####[facility] LABIA [id number] [place] [address] [place] BARBITURATES, URINE Negative Normal Negative [facility] Comment on above: Order Comment: Speci men Type: URINE SPECIMENOrdering Facility: [facility] Address: [address] [place] [address] Result Comment: Cuto ff threshold at 200 ng/mL. Performed By: #### U TOX2 ####[facility] LABCLIA [id number] [place] [address] [place] BENZODIAZEPINES, UR Negative Normal Negative [facility] Comment on above: Order Comment: Speci men Type: URINE SPECIMENOrdering Facility: [facility] Address: [address] [place] [address] Result Comment: Cuto ff threshold at 200 ng/mL. Performed By: #### U TOX2 ####[facility] LABCLIA [id number] [place] [id number] [place] Cannabinoids Screen Ql (U) Positive Abnormal Negative [facility] Comment on above: Order Comment: Speci men Type: URINE SPECIMENOrdering Facility: [facility] Address: [address] [place] [address] Result Comment: Cuto ff threshold at 50 ng/mL. Performed By: #### U TOX2 ####[facility] LABCLIA [id number] [place] [address] [place] Cocaine Ql (U) Negative Normal Negative [facility] Comment on above: Order Comment: Speci men Type: URINE SPECIMENOrdering Facility: [facility] Address: [address] [place] [address] Result Comment: Cuto ff threshold at 300 ng/mL. Performed By: #### U TOX2 ####[facility] LABCLIA [id number] [place] [address] [place] Ethanol (U) [Mass/Vol] <11 Normal <11 [facility] Comment on above: Order Comment: Speci men Type: URINE SPECIMENOrdering Facility: [facility] Address: [address] [place] [address] Performed By: #### U TOX2 ####[facility] LABCLIA [id number] [place] [address] [place] Opiates Screen Ql (U) Negative Normal Negative [facility] Comment on above: Order Comment: Speci men Type: URINE SPECIMENOrdering Facility: [facility] Address: [address] [place] [address] Result Comment: Cuto ff threshold at 300 ng/mL. Performed By: #### U TOX2 ####[facility] LABCLIA [id number] [place] [id number] [place] oxyCODONE cutoff Screen (U) [Mass/Vol] Positive Abnormal Negative [facility] Comment on above: Order Comment: Speci men Type: URINE SPECIMENOrdering Facility: [facility] Address: [facility] [place] [address] Result Comment: Cuto ff threshold at 100 ng/mL. Performed By: #### U TOX2 ####[facility] S[facility]THIA [id number] [place] [address] [place] Phencyclidine Ql (U) Negative Normal Negative [facility] Comment on above: Order Comment: Speci men Type: URINE SPECIMENOrdering Facility: [facility] Address: [address] [place] [address] Result Comment: Cuto ff threshold at 25 ng/mL. Performed By: #### U TOX2 ####[facility] LABIA [id number] [place] [address] [place] TSH SerPl-aCncon 12-15-2024 TSH Qn 3.280 m[IU]/L Normal 0.270-4.20 0 [facility] Comment on above: Order Comment: Speci men Type: BLOOD SPECIMENOrdering Facility: [facility] Address: [address] [place] [address] Performed By: #### 2 532-0, 3016-3, 41230-9, 1987- ####[facility] LABCLIA [id number] [place] [address] [place] XR ABDOMEN 1V SUPINEon 12-15 XR ABDOMEN 1V SUPINE * * *Final Report* * * DATE OF EXAM: Dec 15 2024 3:24PM WOX [id number] - XR ABDOMEN 1V SUPINE / PROCEDURE REASON: Acute constipation * * * * Physician Interpretation * * * * EXAM TITLE: XR ABDOMEN 1V SUPINE EXAM DATE/TIME: 12/15/2024 3:24 PM COMPARISON: None. CLINICAL INDICATION/HISTORY: Constipation TECHNIQUE: AP views of the abdomen are presented. FINDINGS: No abnormally dilated bowel loops identified. Small amount of stool and gas visualized in the large bowel loops. There are no abnormal calcifications. The bony structures appear intact. Others: There are innumerable nodules in the bilateral lungs measuring up to 2.6 cm. IMPRESSION: Nonobstructive bowel gas pattern. Arborist: [facility] Transcribe Date/Time: Dec 15 2024 3:55P Dictated by : ELÍAS SAUNDERS MD This examination was interpreted and the report reviewed and electronically signed by: ELÍAS SAUNDERS MD on Dec 15 2024 3:56PM EST [id number] Normal [facility] XR Abdomen Supine and Uprigh ton 12-15-2024 IMPRESSION: Nonobstr uctive bowel gas pattern. Arborist: [facility] Transcribe Date/Time: Dec 15 2024 3:55P Dictated by : ELÍAS SAUNDERS MD This examination was interpreted and the report reviewed and electronically signed by: ELÍAS SAUNDERS MD on Dec 15 2024 3:56PM EST DIVISION OF RADIOLOGY * * *Final Report* * * DATE OF EXAM: Dec 15 2024 3:24PM WOX [id number] - XR ABDOMEN 1V SUPINE / PROCEDURE REASON: Acute constipation * * * * Physician Interpretation * * * * EXAM TITLE: XR ABDOMEN 1V SUPINE EXAM DATE/TIME: 12/15/2024 3:24 PM COMPARISON: None. CLINICAL INDICATION/HISTORY: Constipation TECHNIQUE: AP views of the abdomen are presented. FINDINGS: No abnormally dilated bowel loops identified. Small amount of stool and gas visualized in the large bowel loops. There are no abnormal calcifications. The bony structures appear intact. Others: There are innumerable nodules in the bilateral lungs measuring up to 2.6 cm. DIVISION OF RADIOLOGY Provider, [facility] - 12/15/2024 * * *Final Report* * * DATE OF EXAM: Dec 15 2024 3:24PM WOX [id number] - XR ABDOMEN 1V SUPINE / PROCEDURE REASON: Acute constipation * * * * Physician Interpretation * * * * EXAM TITLE: XR ABDOMEN 1V SUPINE EXAM DATE/TIME: 12/15/2024 3:24 PM COMPARISON: None. CLINICAL INDICATION/HISTORY: Constipation TECHNIQUE: AP views of the abdomen are presented. FINDINGS: No abnormally dilated bowel loops identified. Small amount of stool and gas visualized in the large bowel loops. There are no abnormal calcifications. The bony structures appear intact. Others: There are innumerable nodules in the bilateral lungs measuring up to 2.6 cm. IMPRESSION IMPRESSION: Nonobstructive bowel gas pattern. Arborist: [facility] Transcribe Date/Time: Dec 15 2024 3:55P Dictated by : ELÍAS SAUNDERS MD This examination was interpreted and the report reviewed and electronically signed by: ELÍAS SAUNDERS MD on Dec 15 2024 3:56PM EST [facility] Radiology Study observation (narrative) [facility] XR Abdomen Supine and Uprigh tOrdered By: [facility] Provider on 12-15-2024 [facility] CNPNon 11-28-2024 CNPN Telephone (FAMPWS) CURT,HYUN Low ([id number]) 1975 M Date Time Provider Department 11/28/24 [facility] During your visit today, we recorded the following information about you: Sagrario Caldwell LPN 11/28/2024 1:44 PM Signed Pt's SO calls to request a rx for oxycodone hcl 5 mg for pt. This is the pain medication given to pt in the hospital. Pt is still having pain on the left -side under ribs. Pt is scheduled for lung biopsy on 12/27/24. Last OV: 11/22/24 Call pt when with dr's message. Cristian Barnett MD 11/28/2024 2:23 PM Signed How often is he taking it. Given his diagnosis, I can write but would need to come in regularly for follow up and do urine tox screens and controlled substance agreements. Let me know Corinne Walton MA 11/28/2024 2:51 PM Signed Patient is taking it q 6 hours prn. Scheduled appointment for Wednesday12/15/24 for tow screen and substance agreement. CALLI Laird William J, MD 11/28/2024 5:23 PM Signed Rx sent Allergies As of Date: 11/28/2024 Noted Allergy Reaction AUGMENTIN (AMOXICILLIN-POT CLAVUL*05/08/2011 6 - Diarrhea BACTRIM (SULFAMETHOXAZOLE) 06/27/2012 7 - Swelling Date Reviewed: 11/22/2024 Reviewed by: Corinne Walton MA - Fully Assessed Reason for Visit: New Rx Request [4095] Primary Visit Diagnosis:Medication monitoring encounter [Z51.81] Other Visit Diagnoses:Hilar lymphadenopathy [R59.0] Lymphadenopathy, abdominal [R59.0] Lung nodules [R91.8] Chest wall pain [R07.89] Order(s):TOXICOLOGY SCREEN, ROUTINE URINE [SQUTOX2] Order #: [id number] oxyCODONE IR (ROXICODONE) 5 mg immediate release tabletTake 1 tablet by mouth every 6 hours as needed for pain for up to 7 days.Disp: 28 tabletRfl: 0 Prescriptions as of 11/28/2024 - ondansetron orally disintegrating (ZOFRAN ODT) 4 mg disintegrating tablet Take 1 tablet by mouth every 8 hours as needed for nausea/vomiting. - oxyCODONE IR (ROXICODONE) 5 mg immediate release tablet Take 1 tablet by mouth every 6 hours as needed for pain for up to 7 days. - RABEprazole (ACIPHEX) 20 mg tablet Take 1 tablet by mouth once daily. Meds Comments as of 04/03/2019: Uses medication to help with bladder control, unsure what medication is. Problem List As Of Date 11/28/2024 Noted Resolved DYSTHYMIC DISORDER [F34.1] Depressive disorder, not elsewhere classified [*05/09/2008 05/27/2018 ESOPHAGEAL REFLUX [K21.9] 06/19/2008 ESOPHAGITIS, UNSPECIFIED [K20.90] 07/16/2008 DIAPHRAGMATIC HERNIA [K44.9] 07/16/2008 DERMATOPHYTOSIS OF NAIL [B35.1] 09/13/2008 SPRAIN OF FOOT NOS [S93.609A] 09/27/2008 FX DORSAL VERTEBRA-CLOSE [S22.009A] 11/23/2008 BPH loc w/o ur obs/LUTS [N40.0] 05/08/2011 05/08/2011 BPH loc w urin obs/LUTS [N40.1] 05/08/2011 Tobacco abuse [Z72.0] 06/10/2011 Migraine [G43.909] 05/25/2013 Legally 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] 05/27/2018 Prescriptions ordered this encounter Disp Refills Start End OXYCODONE 5 MG TABLET 28 t* 0 11/28/2024 12/05/2024 Route: ORAL Sig: Take 1 tablet by mouth every 6 hours as needed for pain for up to 7 days. Medications Discontinued During This Encounter Prescriptions - oxyCODONE IR (ROXICODONE) 5 mg immediate release tablet (Discontinued) take 1 tablet by mouth every 6 hours if needed for pain for 3 days Encounter Status:Closed by CRISTIAN BARNETT on 11/28/24 [facility] Dana 11-23-2024 [facility] Telephone (PUMBHT) HYUN CAIN ([id number]) 1975 Date Time Provider Department 11/23/24 CRISTIAN BARNETT [facility] During your visit today, we recorded the following information about you: Cristian Barnett MD 11/23/2024 10:06 AM Signed Sugars are up. He should still be on metformin. Is there a reason he is not taking it? Raiza Mcdonald LPN 11/23/2024 10:58 AM Signed Left message to call and speak with nurse. Monserrat Smart, DOLORES 11/23/2024 11:07 AM Signed Girlfriend, Trudy, phoned for message with patient present. Given provider's message below. Trudy states patient thought his blood sugars were good and just stopped taking the metformin. States patient will start taking metformin again. Patient states he still has metformin and will let pcp know when he runs out. Allergies As of Date: 11/23/2024 Noted Allergy Reaction AUGMENTIN (AMOXICILLIN-POT CLAVUL*05/08/2011 6 - Diarrhea BACTRIM (SULFAMETHOXAZOLE) 06/27/2012 7 - Swelling Date Reviewed: 11/22/2024 Reviewed by: Corinne Walton MA - Fully Assessed Reason for Visit: Results [95] Prescriptions as of 11/23/2024 - ondansetron orally disintegrating (ZOFRAN ODT) 4 mg disintegrating tablet Take 4 mg by mouth. - oxyCODONE IR (ROXICODONE) 5 mg immediate release tablet take 1 tablet by mouth every 6 hours if needed for pain for 3 days - RABEprazole (ACIPHEX) 20 mg tablet Take 1 tablet by mouth once daily. Meds Comments as of 04/03/2019: Uses medication to help with bladder control, unsure what medication is. Problem List As Of Date 11/23/2024 Noted Resolved DYSTHYMIC DISORDER [F34.1] Depressive disorder, not elsewhere classified [*05/09/2008 05/27/2018 ESOPHAGEAL REFLUX [K21.9] 06/19/2008 ESOPHAGITIS, UNSPECIFIED [K20.90] 07/16/2008 DIAPHRAGMATIC HERNIA [K44.9] 07/16/2008 DERMATOPHYTOSIS OF NAIL [B35.1] 09/13/2008 SPRAIN OF FOOT NOS [S93.609A] 09/27/2008 FX DORSAL VERTEBRA-CLOSE [S22.009A] 11/23/2008 BPH loc w/o ur obs/LUTS [N40.0] 05/08/2011 05/08/2011 BPH loc w urin obs/LUTS [N40.1] 05/08/2011 Tobacco abuse [Z72.0] 06/10/2011 Migraine [G43.909] 05/25/2013 Legally 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] 05/27/2018 Encounter Status:Closed by Monserrat SMART on 11/23/24 [facility] Tatyana 11-22-2024 CNOV Office Visit (FAMPWS ) HYUN CAIN ([id number]) 1975 Monserrat Date Time Provider Department 11/22/24 11:00 AM CRISTIAN BRANETT During your visit today, we recorded the following information about you: Pulse Blood pressure Weight Height 100/minute 108/86 74.8 kg 1.778 m Cristian Barnett MD 11/22/2024 11:31 AM Signed Patient presents with: ER F/U HPI: Patient presents today for office visit for ER FOLLOW UP: Reason for visit: Abdominal pain, left sided Which facility: [facility] Date of visit: 11/12/24 Diagnosis: Lymphadenopathy Testing done: Labs and CT scan.Treatment given: IV fluids, antinausea and pain meds Current symptoms: Having chest pain currently. Mentions a strange odor he's had since jul/aug. Ct of chest/abd/pelvis Showed innumerable pulmonary nodules throughout both lungs, with mediastinal and hilar lymphadenopathy, most compatible with primary lung neoplasm and marielena metastatic disease. Pulmonary metastases or lymphoma are additional considerations. Small right hepatit lobe hypodensity and large centrally necrotic retroperitoneal and gastric lymphadenopathy, compatible to hepatic and marielena metastatic disease. The ER doc in [facility] referred to [facility]. Has been seen by [facility] on 11/14. They are going to attempt to do a radiology guided biopsy on the third. No fever. Sometimes is chills. No cough. No swollen gland. No significant urinary or bowel changes. No shortness of breath. Occasional cough. Still smoking cigarettes and thc. Discussed cessation, including risks of continued use. Offered assistance to help quit if patient desires. Has had an 11 lb weight loss since last summer. Given oxycodone and zofran just prn. Saw ent and having hearing issues. MEDICATIONS: Current Outpatient Medications Medication Sig ondansetron orally disintegrating (ZOFRAN ODT) 4 mg disintegrating tablet Take 4 mg by mouth. oxyCODONE IR (ROXICODONE) 5 mg immediate release tablet take 1 tablet by mouth every 6 hours if needed for pain for 3 days RABEprazole (ACIPHEX) 20 mg tablet Take 1 tablet by mouth once daily. No current facility-administered medications for this visit. ALLERGIES: ALLERGIES Allergen Reactions Augmentin [Amoxicil* Diarrhea Bactrim [Sulfametho* Swelling PAST MEDICAL HISTORY Diagnosis Date Diaphragmatic hernia without mention of obstruction or gangrene Dysthymic disorder 07/12/2007 Depression (non-psychotic) Esophageal reflux Legally blind Seizures (HCC) childhood PAST SURGICAL HISTORY Procedure Laterality Date APPENDECTOMY 1975 ESOPHAGOGASTRODUODENOSCOPY TRANSORAL DIAGNOSTIC 07/16/2008 EGD PAST SURGICAL HISTORY OF ORIF arm fracture PAST SURGICAL HISTORY OF 1995 Reconstruction of Rt arm after industrial accident RPR 1ST INGUN HRNA AGE 3 YRS/> REDUCIBLE 1975 Hernia repair, inguinal FAMILY HISTORY Problem Relation Age of Onset Diabetes Mother COPD Mother Cancer Maternal Grandfather Social History Tobacco Use Smoking status: Every Day Current packs/day: 1.00 Average packs/day: 1 pack/day for 24.0 years (24.0 ttl pk-yrs) Types: Cigarettes Smokeless tobacco: Never Vaping Use Vaping status: Never Used Substance Use Topics Alcohol use: Yes Drug use: Yes Frequency: 2.0 times per week Comment: [place] per patient Reviewed current medications, allergies, past medical history, surgical history, family history and social history today. REVIEW OF SYSTEMS All other reviewed and negative other than HPI. VITALS: BP 108/86 Pulse 100 Ht 177.8 cm (5' 10) Wt 74.8 kg (165 lb) SpO2 96% BMI 23.68 kg/m? Last 4 Encounter Wt Readings: Date: Wt: 02/14/2024 79.8 kg (176 lb) 11/01/2023 80.7 kg (178 lb) 02/04/2022 83.5 kg (184 lb) 12/30/2021 84.8 kg (187 lb) PHYSICAL EXAMINATION: General appearance: Well appearing, alert, in no acute distress, well-hydrated, well nourished. Skin: Skin color, texture, turgor normal, no suspicious rashes or lesions Head: Normocephalic, no masses, lesions, tenderness or abnormalities Lungs: Lungs clear to auscultation. No wheezing, rhonchi, rales Heart: RRR without murmur, gallop, or rubs. No ectopy Abdomen: Normal abdominal exam, Abdomen soft, non-tender. Bowel sounds normal. No masses, organomegaly Extremities: No deformities, edema, skin discoloration, clubbing or cyanosis. Good capillary refill. ASSESSMENT/PLAN: 1. Lung nodules - ICD9: 793.19, ICD10: R91.8 (primary diagnosis) - await biopsy. Currently managed by pulmonary. 2. Controlled type 2 diabetes mellitus without complication, without long-term current use of insulin (HCC) - ICD9: 250.00, - wants to hold on meds unless he has to - HEMOGLOBIN A1C 3. Hyperlipidemia, mixed - ICD9: 272.2, ICD10: E78.2 - wants to follow 4. Tobacco abuse - ICD9: 305.1, ICD10: Z72.0 - Cessation encouraged. (more content not included)... Normal [facility] HbA1c (Bld)on 11-22-2024 Average glucose Estimated from glycated hemoglobin (Bld) [Mass/Vol] 169 mg/dL Normal [facility] Comment on above: Order Comment: Maryann raines Type: BLOOD SPECIMENOrdering Facility: [facility] Address: [address] [place] [address] Result Comment: eAG: (Estimated average glucose) is a calculated value from HgbA1c and is footwear sales representative of the average blood glucose level in the last 2-3 month period. Performed By: #### 5 5454-3 ####[facility] [id number] [place] [address] [place] HbA1c (Bld) [Mass fraction] 7.5 % High 4.3-5.6 [facility] Comment on above: Order Comment: Maryann raines Type: BLOOD SPECIMENOrdering Facility: [facility] Address: [address] [place] [address] Result Comment: Amer [place] Diabetes Association guidelines indicate that patients with HgbA1c in the range 5.7-6.4% are at increased risk for development of diabetes, and intervention by lifestyle modification may be beneficial. HgbA1c greater or equal to 6.5% is considered diagnostic of diabetes. Performed By: #### 5 5454-3 ####[facility] [id number] [place] [address] [place] Activated partial thrombopla stin time (aPTT) in platelet poor plasma by coagulation aOrdered By: Denny Moffett on 11-14-2024 aPTT Coag (PPP) [Time] 26.6 s 24.1-36.2 [facility] International normalized rat io (INR) calculationOrdered By: Denny Moffett on 11-14-2024 INR Coag (Bld) [Relative time] 1.1 {INR} [facility] PLATELET COUNTon 11-14-2024 Platelets (Bld) [#/Vol] 324 10*3/uL Normal 150-450 [facility] Comment on above: Performed By: #### L 100.0625, L300.3900, L300.4310 #### [facility] [address] [place], [address] Partial Thromboplast Timeon 11-14-2024 aPTT Coag (Bld) [Time] 26.6 s Normal 24.1-36.2 [facility] Comment on above: Performed By: #### L 100.0625, L300.3900, L300.4310 #### [facility] [address] [place], [address] Platelet countOrdered By: Benson on 11-14-2024 Platelets (Bld) [#/Vol] 324 10*3/uL 150-450 [facility] Prothrombin Time w/INRon INR Coag (PPP) [Relative time] 1.1 {INR} Normal [facility] Comment on above: Performed By: #### L 100.0625, L300.3900, L300.4310 #### [facility] [address] [place], [address] PT Coag (PPP) [Time] 14.0 s Normal 11.7-14.9 [facility] Comment on above: Performed By: #### L 100.0625, L300.3900, L300.4310 #### [facility] [address] [place], [address] Prothrombin timeOrdered By: Denny Moffett on 11-14-2024 PT Coag (PPP) [Time] 14.0 s 11.7-14.9 [facility] Pulmonary Visit Reporton [facility] [place] [address] [place] [address] OFFICE VISIT Date of Service: 11/14/24 MR#: [id number] Acct: [id number] Name: HYUN CAIN Rep #: [id number] : 1975 Provider: Dr. Denny Moffett DO Age/Sex: 49/M Location: [facility] [place] Status: Signed Assessment and Plan Assessment and Plan (1) Abnormal screening computed tomography (CT) of chest: Status: Acute (2) Multiple lung nodules on CT: Status: Acute Orders: Orders Biopsy/Inj or Needle Placement Today R91.8 - Other nonspecific abnormal finding of lung field Prothrombin Time w/INR Today R91.8 - Other nonspecific abnormal finding of lung field Partial Thromboplast Time Today R91.8 - Other nonspecific abnormal finding of lung field PLATELET COUNT Today Plan The findings noted on the patient's CT imaging of his chest, including innumerable bilateral pulmonary nodules along with mediastinal and hilar adenopathy are certainly concerning for metastatic disease of unclear primary. The patient did have evidence of a hypodense lesion in the liver with associated retroperitoneal and gastric lymphadenopathy, all of which would also be concerning for malignancy. At this time, recommend proceeding with CT-guided lung biopsy of one of the numerous peripheral pulmonary nodules. Preprocedural lab work will be obtained. The patient will follow-up after his biopsy to discuss his test results. HPI HPI Comments Details: The patient is a 49-year-old male who presents to the clinic today in referral for the evaluation of abnormal chest imaging. The patient initially presented to the emergency department on November 12 with complaints of abdominal pain. His workup included CT imaging of the chest, abdomen and pelvis. Unfortunately, that imaging demonstrated an ill-defined hypodensity in the liver measuring approximate 1.4 cm in size along with numerous large retroperitoneal and gastric lymphadenopathy and innumerable pulmonary nodules bilaterally with associated mediastinal and hilar lymphadenopathy. The patient has an approximate [id number] smoking history and continues to smoke daily. In addition, he did grow up in a smoking household. The patient is currently unemployed, on disability. He reported that his weight has been relatively stable with time. He does endorse the presence of exertional shortness of breath along with an intermittent productive cough. He denies a history of alcohol dependency or illicit drug use. He denies any fevers, chills or night sweats. He does continue to report the presence of abdominal discomfort. Intake Vital Signs 11/12/24 08:03 11/14/24 08:53 Height 5 ft 9 in 5 ft 9 in Weight: 163 lb BMI 24.0 BP 125/84 H Blood Pressure Location Lt brachial Position Sitting Respiration 18 Pulse 88 Pulse Source Monitor Temp 98.2 F Temperature Source Temporal Artery Pulse Oximetry (%) 97 Oxygen Delivery Method room air Intake Visit Reasons: [place] Behavior Management Specialist Required: No DME Vendor: n/a Accompanied by: Significant Other Is patient in pain?: No Allergies sulfamethoxazole (From Bactrim) Allergy (Verified 11/14/24 11:07) Unknown trimethoprim (From Bactrim) Allergy (Verified 11/14/24 11:07) Unknown amoxicillin trihydrate (From Augmentin) Adverse Reaction (Verified 11/14/24 11:07) Nausea potassium clavulanate (From Augmentin) Adverse Reaction (Verified 11/14/24 11:07) Nausea Medications ???Medication ???Instructions ???Recorded ???Confirmed ???Type rabeprazole 20 mg tablet,delayed 20 mg PO DAILY 01/20/15 11/14/24 H istory release (AcipHex) ondansetron 4 mg disintegrating 4 mg PO Q8H PRN PRN Nausea #10 tab s 11/12/24 11/14/24 Rx tablet oxycodone 5 mg tablet 5 mg PO Q6H PRN pain 3 days #12 11/14/24 Rx tabs PFSH Social History (Updated 11/14/24 @ 11:08 by Reanna Pettit) Smoking Status: Current every day smoker tobacco type: cigarettes second hand exposure: Yes Review of Systems Resp Respiratory: Yes as per HPI Exam Const Constitutional: Positive conversant, cooperative, in no acute respiratory distress, well developed, well nourished and good hygiene Head Head: Yes normocephalic and Yes atraumatic Eyes Eye: Positive clear conjunctiva; Negative nystagmus or scleral abnormality Ears Ear: Positive hearing normal and external ears normal Nose Nose: Yes external nose normal Mouth Mouth: Positive oral mucosae normal and posterior oropharynx is adequate; Negative no lesions Neck Neck: Positive normal visual inspection and trachea midline; Negative lymphadenopathy Chest Wall Chest: Positive symmetric chest movement Normal AP diameter. Resp lung sounds: Positive good air exchange; Negative wheezes, rhonchi or rales C (more content not included)... Normal [facility] Absolute lymphocyte countOrd ered By: Dionicio Grimes on 11-12-2024 Lymphocytes Auto (Unsp spec) [#/Vol] 2.09 10*3/uL 0.83-4.51 [facility] Absolute neutrophil countOrd ered By: Dionicio Grimes on 11-12-2024 Neutrophils (Bld) [#/Vol] 7.1 10*3/uL 2.0-7.7 [facility] Anion gap in Serum or Plasma Ordered By: Dionicio Grimes on 11-12-2024 Anion gap [Moles/Vol] 12 mmol/L 5-15 [facility] Automated lymphocyte count a s percentage of total leukocytesOrdered By: Dionicio Grimes on 11-12-2024 Lymphocytes/100 WBC Auto (Unsp spec) 20.4 % 19-41 [facility] BUN/creatinine ratioOrdered By: Dionicio Grimes on 11-12-2024 Urea nitrogen/Creatinine [Mass ratio] 14.3 mg/mg 10-20 [facility] Basophil percentageOrdered B y: Dionicio Grimes on 11-12-2024 Basophils/100 WBC (Bld) 1.1 % High 0-1 [facility] Bilirubin, totalOrdered By: Dionicio Grimes on 11-12-2024 Bilirubin [Mass/Vol] 0.29 mg/dL 0.00-1.30 [facility] CBC W/Diff, Automatedon Absolute Lymph 2.09 X10 3/uL Normal 0.83-4.51 [facility] Comment on above: Performed By: #### L 501.2450, L100.0100, L500.4050 #### [facility] [address] [place], [place], [address] Absolute Neut 7.1 X10 3/uL Normal 2.0-7.7 [facility] Comment on above: Performed By: #### L 501.2450, L100.0100, L500.4050 #### [facility] [address] [place], [address] Basophils/100 WBC (Bld) 1.1 % High 0-1 [facility] Comment on above: Performed By: #### L 501.2450, L100.0100, L500.4050 #### [facility] [address] [place], [address] Eosinophils/100 WBC (Bld) 1.8 % Normal 0-5 [facility] Comment on above: Performed By: #### L 501.2450, L100.0100, L500.4050 #### [facility] [address] [place], [address] Erythrocyte distribution width (RBC) [Ratio] 13.4 % Normal 11.6-14.6 [facility] Comment on above: Performed By: #### L 501.2450, L100.0100, L500.4050 #### [facility] [address] [place], [address] Hematocrit (Bld) [Volume fraction] 41.5 % Normal 40-54 [facility] Comment on above: Performed By: #### L 501.2450, L100.0100, L500.4050 #### [facility] [address] [place], [address] Hemoglobin (Bld) [Mass/Vol] 13.9 g/dL Normal 13.0-16.5 [facility] Comment on above: Performed By: #### L 501.2450, L100.0100, L500.4050 #### [facility] [address] [place], [address] IG% 0.600 Normal 0.0-0.9 [facility] Comment on above: Result Comment: IG% - Immature Granulocytes (promyelocytes, myelocytes and metamyelocytes) > 1% indicates that a LEFT SHIFT is Present. Performed By: #### L 501.2450, L100.0100, L500.4050 #### [facility] [address] [place], [address] Lymphocytes/100 WBC (Bld) 20.4 % Normal 19-41 [facility] Comment on above: Performed By: #### L 501.2450, L100.0100, L500.4050 #### [facility] [address] [place], [address] MCH (RBC) [Entitic mass] 29.3 pg Normal 27.0-32.0 [facility] Comment on above: Performed By: #### L 501.2450, L100.0100, L500.4050 #### [facility] [address] [place], [address] MCHC (RBC) [Mass/Vol] 33.5 g/dL Normal 32-36 [facility] Comment on above: Performed By: #### L 501.2450, L100.0100, L500.4050 #### [facility] [address] [place], [address] MCV (RBC) [Entitic vol] 87.6 fL Normal 80-94 [facility] Comment on above: Performed By: #### L 501.2450, L100.0100, L500.4050 #### [facility] [address] [place], [address] Monocytes/100 WBC (Bld) 6.5 % Normal 0-10 [facility] Comment on above: Performed By: #### L 501.2450, L100.0100, L500.4050 #### [facility] [address] [place], [address] Neutrophils/100 WBC (Bld) 69.6 % Normal 47-70 [facility] Comment on above: Performed By: #### L 501.2450, L100.0100, L500.4050 #### [facility] [address] [place], [address] Nucleated RBC (Bld) [#/Vol] 0 10*3/uL Normal 0-5 [facility] Comment on above: Performed By: #### L 501.2450, L100.0100, L500.4050 #### [facility] [address] [place], [address] Platelet mean volume (Bld) [Entitic vol] 11.4 fL Normal 6.2-12.0 [facility] Comment on above: Performed By: #### L 501.2450, L100.0100, L500.4050 #### [facility] [address] [place], [address] Platelets (Bld) [#/Vol] 262 10*3/uL Normal 150-450 [facility] Comment on above: Performed By: #### L 501.2450, L100.0100, L500.4050 #### [facility] [address] [place], [address] RBC (Bld) [#/Vol] 4.74 10*6/uL Normal 4.6-6.2 [facility] Comment on above: Performed By: #### L 501.2450, L100.0100, L500.4050 #### [facility] [address] [place], [address] RDW SD 43.4 fl Normal 35.1-43.9 [facility] Comment on above: Performed By: #### L 501.2450, L100.0100, L500.4050 #### [facility] [address] [place], [address] WBC (Bld) [#/Vol] 10.2 10*3/uL Normal 4.4-11.0 [facility] Comment on above: Performed By: #### L 501.2450, L100.0100, L500.4050 #### [facility] [address] [place], [address] CT Chest, Abd, Pel w/Contras ton 11-12-2024 CT Chest, Abd, Pel w/Contrast [facility] Imaging Services [address] [place] [address] CT Chest, Abd, Pel w/Contrast MR#: [id number] Acct: [id number] Name: HYUN CAIN Rep #: [id number] : 1975 M 49 From: Jacquelyn Howell nd, MD PCP: Dr. Cristian Barnett MD Status: [facility] ER Study: CT Chest, Abd, Pel w/Contrast Date of Exam: Exam# [id number] Ordering Dr: Dionicio Grimes DO PROCEDURE: CT CHEST, ABD, PEL W/CONTRAST 11/12/2024 REASON FOR EXAM: LEFT UPPER QUADRANT ABDOMINAL PAIN times 5-6 days, getting worse. TECHNIQUE: Chest, abdomen and pelvis CT with intravenous contrast. Coronal and Sagittal reconstruction series were provided. One or more dose reduction techniques were used (e.g., Automated exposure control, adjustment of the mA and/or kV according to patient size, use of iterative reconstruction technique. PATIENT PREPARATION: Per protocol ORAL CONTRAST TYPE: None. CONTRAST: Isovue 370 VOLUME: 100mL RADIATION DOSE SUMMARY: CTDlvol: 45 mGy DLP: 1200 mGycm COMPARISON: CT abdomen pelvis 04/09/2019. FINDINGS: CT CHEST: Hardware: None. Lymph nodes: Mediastinal and hilar lymphadenopathy. A footwear sales representative right paratracheal node measures 1.9 x 1.7 cm (series 3, image 43). No axillary lymphadenopathy. Heart and Vasculature: The heart is normal in size without pericardial effusion. No coronary artery calcifications. The great vessels are normal in caliber. Lungs and Airways: The central airways are patent. Innumerable pulmonary nodules throughout all 5 lung lobes. A footwear sales representative right upper lobe subpleural pulmonary nodule measures 2.5 x 2.2 cm (series 3, image 35). No pleural effusion or pneumothorax. Bones: Prior vertebral augmentation of the T6 vertebral body. CT ABDOMEN/PELVIS: Liver: The liver is normal in size with ill-defined hypodensity within hepatic segment 5 measuring approximately 1.4 x 1.4 cm (series 4, image 31). Additional tiny hypodensities, too small to characterize. The major portal veins are patent. No biliary ductal dilation. Gallbladder: No radiopaque stones within the gallbladder. Spleen: Normal size. Pancreas: Unremarkable. Adrenals: No adrenal mass. Kidneys: Tiny bilateral hypodensities, likely cysts. No hydronephrosis or nephrolithiasis. Bladder: Distended and unremarkable. Reproductive Organs: Mildly enlarged prostate. Bowel: The bowel loops are normal in caliber. No ascites or pneumoperitoneum. No inflammatory mass in the expected region of the appendix. Lymph nodes: Numerous large, centrally necrotic retroperitoneal and gastric lymphadenopathy. A footwear sales representative left lateral aortic/para-aortic node measures 2.9 x 2.9 cm (series 4, image 41). Additional prominent central mesenteric nodes, of indeterminate significance. Vasculature: Mild calcific plaque of the aortoiliac vessels. Bones: No suspicious osseous lesions. CT/CT Chest, Abd, Pel w/Contrast IMPRESSION: 1. No acute thoracic or abdominopelvic finding. 2. Innumerable pulmonary nodules throughout the bilateral lungs, with mediastinal and hilar lymphadenopathy, most compatible with primary lung neoplasm and marielena metastatic disease. Pulmonary metastasis or lymphoma are additional considerations, though less likely. Image guided biopsy is recommended for further evaluation. 3. Small right hepatic lobe hypodensity and large centrally necrotic retroperitoneal and gastric lymphadenopathy, compatible with hepatic and marielena metastatic disease. Dr. Bean discussed these findings via telephone with Dr. Grimes at 11:15 a.m. on 11/12/2024. Reading Location: [facility] CC: Dr. Dionicio Grimes DO; Dr. Cristian Barnett MD Arborist: Signed Normal [facility] Carbon dioxide, total [Moles /volume] in Central venous bloodOrdered By: Dionicio Grimes on 11-12-2024 CO2 [Moles/Vol] 21.4 mmol/L 21.0-32.0 [facility] Chloride assayOrdered By: Jamin Grimes on 11-12-2024 Chloride [Moles/Vol] 102 mmol/L 98-108 [facility] Comprehensive Metabolic Prof ilon 11-12-2024 Albumin [Mass/Vol] 3.8 g/dL Normal 3.5-5.0 [facility] Comment on above: Performed By: #### L 501.2450, L100.0100, L500.4050 #### [facility] [address] [place], [address] Albumin/Globulin [Mass ratio] 1.0 {ratio} Normal 0.9-2.4 [facility] Comment on above: Performed By: #### L 501.2450, L100.0100, L500.4050 #### [facility] [address] [place], [address] ALK PHOS 70 U/L Normal 40-129 [facility] Comment on above: Performed By: #### L 501.2450, L100.0100, L500.4050 #### [facility] [address] [place], [address] ALT [Catalytic activity/Vol] 8 U/L Normal <=46 [facility] Comment on above: Performed By: #### L 501.2450, L100.0100, L500.4050 #### [facility] [address] [place], [address] AST [Catalytic activity/Vol] 13 U/L Normal <=37 [facility] Comment on above: Performed By: #### L 501.2450, L100.0100, L500.4050 #### [facility] [address] [place], [address] Bilirubin [Mass/Vol] 0.29 mg/dL Normal 0.00-1.30 [facility] Comment on above: Performed By: #### L 501.2450, L100.0100, L500.4050 #### [facility] [address] [place], [address] BUN/CRE 14.3 RATIO Normal 10-20 [facility] Comment on above: Performed By: #### L 501.2450, L100.0100, L500.4050 #### [facility] [address] [place], [address] Calcium [Mass/Vol] 9.1 mg/dL Normal 7.6-11.0 [facility] Comment on above: Performed By: #### L 501.2450, L100.0100, L500.4050 #### [facility] [address] [place], [address] Chloride [Moles/Vol] 102 mmol/L Normal 98-108 [facility] Comment on above: Performed By: #### L 501.2450, L100.0100, L500.4050 #### [facility] [address] [place], [address] CO2 [Moles/Vol] 21.4 mmol/L Normal 21.0-32.0 [facility] Comment on above: Performed By: #### L 501.2450, L100.0100, L500.4050 #### [facility] [address] [place], [address] Creatinine [Mass/Vol] 0.85 mg/dL Normal 0.70-1.20 [facility] Comment on above: Performed By: #### L 501.2450, L100.0100, L500.4050 #### [facility] [address] [place], [address] ECRCL 102.82 ml/min Normal 50-250 [facility] Comment on above: Performed By: #### L 501.2450, L100.0100, L500.4050 #### [facility] [address] [place], [address] GAP 12 Normal 5-15 [facility] Comment on above: Performed By: #### L 501.2450, L100.0100, L500.4050 #### [facility] [address] [place], [address] GFR/1.73 sq M.predicted among non-blacks MDRD (S/P/Bld) [Vol rate/Area] 105 mL/min/{1.73_m2} Normal >60 [facility] Comment on above: Result Comment: mL/m in/1.73m2 CKD-EPI Creatinine Equation (2020) Performed By: #### L 501.2450, L100.0100, L500.4050 #### [facility] [address] [place], [address] Globulin (S) [Mass/Vol] 4.0 g/dL Normal 2.2-4.2 [facility] Comment on above: Performed By: #### L 501.2450, L100.0100, L500.4050 #### [facility] [address] [place], [address] Glucose [Mass/Vol] 283 mg/dL High 70-99 [facility] Comment on above: Performed By: #### L 501.2450, L100.0100, L500.4050 #### [facility] [address] [place], [address] Potassium [Moles/Vol] 3.9 mmol/L Normal 3.3-5.1 [facility] Comment on above: Performed By: #### L 501.2450, L100.0100, L500.4050 #### [facility] [address] [place], [address] Sodium [Moles/Vol] 135 mmol/L Normal 133-145 [facility] Comment on above: Performed By: #### L 501.2450, L100.0100, L500.4050 #### [facility] [address] [place], [address] T PROT 7.8 g/dL Normal 5.9-8.4 [facility] Comment on above: Performed By: #### L 501.2450, L100.0100, L500.4050 #### [facility] [address] [place], [address] Urea nitrogen [Mass/Vol] 12 mg/dL Normal 4-19 [facility] Comment on above: Performed By: #### L 501.2450, L100.0100, L500.4050 #### [facility] [address] [place], [address] Emergency Department Summary on 11-12-2024 Emergency Department Summary [facility] Medical Records Department [address] [place] [address] Emergency Department Summary 11/12/24 MR#: [id number] Acct: [id number] Name: HYUN CAIN Rep #: [id number] : 1975 49 From: Dionicio Grimes DO PCP: Dr. Cristian Barnett MD Status:REG ER Location: ED HPI History of Present Illness Chief Complaint: Abd Pain PFSH PFSH Home Medications ???Medication ???Instructions ???Recorded ???Last Taken ???Type rabeprazole 20 mg tablet,delayed 20 mg PO DAILY 01/20/15 11/11/24 H istory release (AcipHex) ondansetron 4 mg disintegrating 4 mg PO Q8H PRN PRN Nausea #10 tab s 11/12/24 Unknown Rx tablet oxycodone 5 mg tablet 5 mg PO Q6H PRN pain 3 days #12 Unknown Rx tabs Allergy/AdvReac Type Severity Reaction Status Date / Time sulfamethoxazole (From Allergy Unknown Verified 11/12/24 08:06 Bactrim) trimethoprim (From Bactrim) Allergy Unknown Verified 11/12/24 08:06 amoxicillin trihydrate (From AdvReac Nausea Verified 11/12/24 08:06 Augmentin) potassium clavulanate (From AdvReac Nausea Verified 11/12/24 08:06 Augmentin) Social History Smoking Status: Current every day smoker tobacco type: cigarettes EXAM Physical Exam Const Vital Signs: 11/12/24 08:03 11/12/24 10:03 Temperature 98.7 F Temperature Source Oral Pulse Rate 94 81 Respiratory Rate 19 H 17 Blood Pressure 141/98 H 129/80 H Blood Pressure Mean 112 96 Pulse Ox 98 98 Oxygen Delivery Method Room Air Room Air [facility] [place] Narrative Medical decision making narrative: HISTORY OF PRESENT ILLNESS: Chief complaint: Abdominal pain 49-year-old male presents concern for left upper abdominal pain for the past 6 days. Notes it is getting worse. States is worse with bending over. He further states he has had no trauma. Denies vomiting or fever. Denies chest pain or shortness of breath. Denies flank pain. Notes history of kidney stones. States does not feel similar. Denies urinary complaints. Denies diarrhea. Denies melena hematochezia. Denies history of prior abdominal surgeries REVIEW OF SYSTEMS: Pertinent positives: Abdominal pain Pertinent negatives: As per HPI PHYSICAL EXAM: Nursing triage notes reviewed, Vital signs reviewed Constitutional: please see [facility] HENT: MMM Eyes: Pupils equal round and reactive to light, Extraocular muscles intact Neck: No stridor, no JVD, full neck ROM Lungs: Clear to auscultation, No wheezing or rales. No increased work of breathing, no conversational dyspnea, no accessory muscle use, no nasal flaring. No respiratory distress noted Heart: Regular rate and rhythm, No murmurs, No rubs and No gallops, 2+ distal pulses (radial, femoral, posterior tibial) in all extremities Abdomen: Soft, there is no tenderness, rigidity, rebound or guarding, no obvious peritoneal signs, no palpable pulsatile abdominal masses, no auscultated abdominal bruit : No CVAT Extremities: No edema Neuro: No new focal neurological deficits, cranial nerves II through XII intact, 5/5 strength in all present extremities. Intact sensation to light touch in all present extremities, 2+ reflexes bilateral patella tendons. Skin: No rash or lesions noted MEDICAL DECISION MAKING: Chief Complaint: please see HPI External records reviewed: Reviewed prior surgical intervention Factors affecting care: left inguinal hernia status post repair Social determinants of health: Denies alcohol History obtained from others: none Consults: none [facility] Narrative: The patient was initially hemodynamically stable, afebrile and nontoxic-appearing. Exam without pulse abdominal masses. I considered the following differential diagnosis: AAA, small bowel obstruction, abdominal perforation, appendicitis, pancreatitis, hepatobiliary pathology (acute cholecystitis), mesenteric ischemia, pathology (ie nephrolithiasis, pyelonephritis). I obtained a broad lab and imaging evaluation to further elucidate etiology of the patient's complaint. I initially treated the patient with 1 L IV fluid, 4 mg IV Zofran, 4 mg IV morphine ALL IMAGES (IF OBTAINED) HAVE BEEN PERSONALLY REVIEWED AND INTERPRETED BY MYSELF. Per radiology numerus pulmonary nodule, lymphadenopathy, retroperitoneal nodes, small liver lesion concerning for cancer. CT scan was concerning for lung cancer with innumerable pulmonary nodules, hilar and mediastinal lymphadenopathy as well as intra-abdominal lesions as well. No sign of acute surgical pathology. CBC without leukocytosis, severe anemia, no thrombocytopenia. CMP without evidence of acute kidney injury, significant electrolyte abnormality, anion gap to suggest end organ hypo-perfusion, no evidence of metabolic acidosis with a normal bicarbonate, no evidence of hepatobiliary ob (more content not included)... Normal [facility] Eosinophil percentageOrdered By: Dionicio Grimes on 11-12-2024 Eosinophils/100 WBC (Bld) 1.8 % 0-5 [facility] Erythrocyte distribution wid th ratioOrdered By: Dionicio Grimes on 11-12-2024 Erythrocyte distribution width (RBC) [Ratio] 13.4 % 11.6-14.6 [facility] Erythrocyte distribution wid th standard deviationOrdered By: Dionicio Grimes on 11-12-2024 Erythrocyte distribution width (RBC) [Ratio] 43.4 fl 35.1-43.9 [facility] Glomerular filtration rate ( GFR) estimation/1.73 sq m using serum, plasma, or whole bOrdered By: Dionicio Grimes on 11-12-2024 GFR/1.73 sq M.predicted among non-blacks MDRD (S/P/Bld) [Vol rate/Area] 105 mL/min/{1.73_m2} >60 [facility] Comment on above: mL/min/1.73m2 CKD-EP I Creatinine Equation (2020) Hematocrit Auto (Bld) [Volum e fraction]Ordered By: Dionicio Grimes on 11-12-2024 Hematocrit (Bld) [Volume fraction] 41.5 % 40-54 [facility] Hemoglobin measurementOrdere d By: Dionicio Grimes on 11-12-2024 Hemoglobin (Bld) [Mass/Vol] 13.9 g/dL 13.0-16.5 [facility] Immature granulocytes/100 WB C Auto (Bld)Ordered By: Dionicio Grimes on 11-12-2024 Immature granulocytes/100 WBC (Bld) 0.600 % 0.0-0.9 [facility] Comment on above: IG% - Immature Granu locytes (promyelocytes, myelocytes and metamyelocytes) > 1% indicates that a LEFT SHIFT is Present. Laboratory - Chemistry and C hemistry - challengeOrdered By: Dionicio Grimes on 11-12-2024 AST [Catalytic activity/Vol] 13 U/L <38 [facility] Lipaseon 11-12-2024 Lipase [Catalytic activity/Vol] 26 U/L Normal 13-75 [facility] Comment on above: Result Comment: Maria Ines greenberg note: LIPASE revised reference range effective 22. New Lipase methodology. Expected to produce lower values than the previous assay method. NEW Reference Range: 13 - 75 U/L Performed By: #### L 501.2450, L100.0100, L500.4050 #### [facility] [address] [place], [place], [address] Lipase measurementOrdered By : Dionicio Grimes on 11-12-2024 Lipase [Catalytic activity/Vol] 26 U/L 13-75 [facility] Comment on above: Please note:LIPASE r evised reference range effective 22. New Lipase methodology. Expected to produce lower values than the previous assay method. NEW Reference Range: 13 - 75 U/L MCV (mean corpuscular volume ) determinationOrdered By: Dionicio Grimes on 11-12-2024 MCV (RBC) [Entitic vol] 87.6 fL 80-94 [facility] Mean corpuscular hemoglobin (MCH) determinationOrdered By: Dionicio Grimes on 11-12-2024 MCH (RBC) [Entitic mass] 29.3 pg 27.0-32.0 [facility] Mean corpuscular hemoglobin concentration (MCHC) determinationOrdered By: Dionicio Grimes on 11-12-2024 MCHC (RBC) [Mass/Vol] 33.5 g/dL 32-36 [facility] Mean platelet volume determi nationOrdered By: Dionicio Grimes on 11-12-2024 Platelet mean volume (Bld) [Entitic vol] 11.4 fL 6.2-12.0 [facility] Monocyte percentageOrdered B y: Dionicio Grimes on 11-12-2024 Monocytes/100 WBC (Bld) 6.5 % 0-10 [facility] Neutrophil percentageOrdered By: Dionicio Grimes on 11-12-2024 Neutrophils/100 WBC (Bld) 69.6 % 47-70 [facility] Nucleated red blood cell per centageOrdered By: Dionicio Grimes on 11-12-2024 Nucleated RBC/100 WBC (Bld) [Ratio] 0 % 0-5 [facility] Platelet countOrdered By: Jamin Grimes on 11-12-2024 Platelets (Bld) [#/Vol] 262 10*3/uL 150-450 [facility] Potassium measurement (mass/ volume)Ordered By: Dionicio Grimes on 11-12-2024 Potassium (Unsp spec) [Mass/Vol] 3.9 mmol/L 3.3-5.1 [facility] RBC Auto (Bld) [#/Vol]Ordere d By: Dionicio Grimes on 11-12-2024 RBC (Bld) [#/Vol] 4.74 10*6/uL 4.6-6.2 [facility] Serum creatinine measurement (mass/volume)Ordered By: Dionicio Grimes on 11-12-2024 Creatinine [Mass/Vol] 0.85 mg/dL 0.70-1.20 [facility] Serum globulin measurementOr dered By: Dionicio Grimes on 11-12-2024 Globulin (S) [Mass/Vol] 4.0 g/dL 2.2-4.2 [facility] Serum glucose measurement (m ass/volume)Ordered By: Dionicio Grimes on 11-12-2024 Glucose [Mass/Vol] 283 mg/dL High 70-99 [facility] Serum or plasma alanine montenegro otransferase (ALT) measurementOrdered By: Dionicio Grimes on 11-12-2024 ALT [Catalytic activity/Vol] 8 U/L <47 [facility] Serum or plasma albumin darien urement (mass/volume)Ordered By: Dionicio Grimes on 11-12-2024 Albumin [Mass/Vol] 3.8 g/dL 3.5-5.0 [facility] Serum or plasma albumin/glob ulin mass ratioOrdered By: Dionicio Grimes on 11-12-2024 Albumin/Globulin [Mass ratio] 1.0 {ratio} 0.9-2.4 [facility] Serum or plasma alkaline maría sphatase measurementOrdered By: Dionicio Grimes on 11-12-2024 ALP [Catalytic activity/Vol] 70 U/L 40-129 [facility] Serum or plasma calcium darien urement (mass/volume)Ordered By: Dionicio Grimes on 11-12-2024 Calcium [Mass/Vol] 9.1 mg/dL 7.6-11.0 [facility] Serum or plasma urea nitroge n measurement (mass/volume)Ordered By: Dionicio Grimes on 11-12-2024 Urea nitrogen [Mass/Vol] 12 mg/dL 4-19 [facility] Sodium levelOrdered By: Minh Grimes on 11-12-2024 Sodium [Moles/Vol] 135 mmol/L 133-145 [facility] Total proteinOrdered By: Sparkle Grimes on 11-12-2024 Protein [Mass/Vol] 7.8 g/dL 5.9-8.4 [facility] White blood cell (WBC) count Ordered By: Dionicio Grimes on 11-12-2024 WBC (Bld) [#/Vol] 10.2 10*3/uL 4.4-11.0 [facility] CNPNon 11-09-2024 PRAFULN Telephone ([facility]) FACEMIRE,HYUN Low ([id number]) 1975 M Date Time Provider Department 11/09/24 CRISTIAN BARNETT During your visit today, we recorded the following information about you: Monserrat Smart, RN 11/09/2024 12:00 PM Addendum Girlfriend, Trudy, reports pt has been having CP- below rib, left side of chest for 2 weeks that comes and goes, sharp, piercing, stabbing, lasts less than a minute. Radiates to middle of chest. Reports pt does not have CP near heart, no pain that radiates to neck, arm or jaw. No heaviness, or pressure. No SOB. Reports pt thinks it's a pulled muscle, or maybe he slept wrong. Reports pt has had no injury in the left chest area. Reports pt has hx of acid reflux but doesn't think it's that. The pain is not worse after eating. Advised girlfriend if patient develops CP, SOB, dizziness, needs to go to ER. Girlfriend agreeable. Girlfriend asking to schedule appt with pcp. Advised girlfriend to have pt return call to triage nurse so we can triage his symptoms. Girlfriend agreeable. Marshall Tran, DOLORES 11/09/2024 12:27 PM Signed See triage. Advised ER now. Patient agreeable to call squad and be seen at [facility]. Marshall Tran RN Allergies As of Date: 11/09/2024 Noted Allergy Reaction AUGMENTIN (AMOXICILLIN-POT CLAVUL*05/08/2011 6 - Diarrhea BACTRIM (SULFAMETHOXAZOLE) 06/27/2012 7 - Swelling Date Reviewed: 02/14/2024 Reviewed by: Raiza Mcdonald LPN - Fully Assessed Reason for Visit: Chest Pain [21] Prescriptions as of 11/09/2024 - RABEprazole (ACIPHEX) 20 mg tablet Take 1 tablet by mouth once daily. - metFORMIN ER (GLUCOPHAGE XR) 750 mg 24 hr tablet Take 1 tablet by mouth daily with breakfast. Meds Comments as of 04/03/2019: Uses medication to help with bladder control, unsure what medication is. Problem List As Of Date 11/09/2024 Noted Resolved DYSTHYMIC DISORDER [F34.1] Depressive disorder, not elsewhere classified [*05/09/2008 05/27/2018 ESOPHAGEAL REFLUX [K21.9] 06/19/2008 ESOPHAGITIS, UNSPECIFIED [K20.90] 07/16/2008 DIAPHRAGMATIC HERNIA [K44.9] 07/16/2008 DERMATOPHYTOSIS OF NAIL [B35.1] 09/13/2008 SPRAIN OF FOOT NOS [S93.609A] 09/27/2008 FX DORSAL VERTEBRA-CLOSE [S22.009A] 11/23/2008 BPH loc w/o ur obs/LUTS [N40.0] 05/08/2011 05/08/2011 BPH loc w urin obs/LUTS [N40.1] 05/08/2011 Tobacco abuse [Z72.0] 06/10/2011 Migraine [G43.909] 05/25/2013 Legally 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] 05/27/2018 Encounter Status:Closed by MARSHALL TRAN on 11/09/24 Normal [facility] CNCOon 03-09-2024 CNCO Letter Text Normal [facility] CNPNon 02-16-2024 CNPN Telephone (FAMWS) HYUN CAIN ([id number]) 1975 M Date Time Provider Department 02/16/24 [facility] During your visit today, we recorded the following information about you: Cristian Barnett MD 02/16/2024 8:05 AM Signed Sugars remain in diabetic range. Start the metformin he has at home. Follow up in three months. His lipids are right on the border with a 7.4% heart disease risk. If he wants to watch the cholesterol in his diet, we can recheck it down the road and hold on adding meds. Osbaldo Poe LPN 02/16/2024 9:06 AM Signed Spoke with pt and information listed below given. Pt verbalizes understanding. 3 month FU apt booked and pt requested an apt reminder be mailed to him. Done. Osbaldo Poe LPN Allergies As of Date: 02/16/2024 Noted Allergy Reaction AUGMENTIN (AMOXICILLIN-POT CLAVUL*05/08/2011 6 - Diarrhea BACTRIM (SULFAMETHOXAZOLE) 06/27/2012 7 - Swelling Date Reviewed: 02/14/2024 Reviewed by: Raiza Mcdonald LPN - Fully Assessed Reason for Visit: Results [95] Visit Diagnosis:Controlled type 2 diabetes mellitus without complication, without long-term current use of insulin (HCC) [E11.9] Order(s):metFORMIN ER (GLUCOPHAGE XR) 750 mg 24 hr tabletTake 1 tablet by mouth daily with breakfast.Disp: 90 tabletRfl: 1 Prescriptions as of 02/16/2024 - metFORMIN ER (GLUCOPHAGE XR) 750 mg 24 hr tablet Take 1 tablet by mouth daily with breakfast. - RABEprazole (ACIPHEX) 20 mg tablet Take 1 tablet by mouth once daily. Meds Comments as of 04/03/2019: Uses medication to help with bladder control, unsure what medication is. Problem List As Of Date 02/16/2024 Noted Resolved DYSTHYMIC DISORDER [F34.1] Depressive disorder, not elsewhere classified [*05/09/2008 05/27/2018 ESOPHAGEAL REFLUX [K21.9] 06/19/2008 ESOPHAGITIS, UNSPECIFIED [K20.90] 07/16/2008 DIAPHRAGMATIC HERNIA [K44.9] 07/16/2008 DERMATOPHYTOSIS OF NAIL [B35.1] 09/13/2008 SPRAIN OF FOOT NOS [S93.609A] 09/27/2008 FX DORSAL VERTEBRA-CLOSE [S22.009A] 11/23/2008 BPH loc w/o ur obs/LUTS [N40.0] 05/08/2011 05/08/2011 BPH loc w urin obs/LUTS [N40.1] 05/08/2011 Tobacco abuse [Z72.0] 06/10/2011 Migraine [G43.909] 05/25/2013 Legally 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] 05/27/2018 Prescriptions ordered this encounter Disp Refills Start End METFORMIN ER 750 MG TABLET,EXTENDED * 90 t* 1 02/16/2024 08/14/2024 Route: ORAL Sig: Take 1 tablet by mouth daily with breakfast. Encounter Status:Closed by OSBALDO POE on 02/16/24 [facility] CNOVon 02-14-2024 CNOV Office Visit (FAMPWS ) HYUN CAIN ([id number]) 1975 M Date Time Provider Department 02/14/24 3:00 PM CRISTIAN BARNETT [facility]WS During your visit today, we recorded the following information about you: Pulse Blood pressure Weight 101/minute 122/92 79.8 kg Cristian Barnett MD 02/14/2024 4:01 PM Signed Patient presents with: Follow Up HPI: Patient presents today for office visit for follow up. Recently diagnosed with DM. Michelle had ordered labs and started on meds. Discussed dm management. Does not have a meter. Suggested we can recheck labs and determine if still needed since he has made changes in his diet. No chest pain or shortness of breath. No symptoms. Lipids: Was given Crestor and caused him to have headaches. Headaches have since went away but did take a little while. Denies that this was a flare of his migraines. Did not start the new atorvastatin that he was ordered wanted to see PCP first. Diabetes: Didn't start the metformin he was given. States that his mother has taken this medication and it made her really sick. Doesn't check glucose at home. Doesn't feel that he could afford to either due to cost. Not drinking much pop anymore at all unless goes out to eat which isn't often anymore. Would like to have right ear checked today it has been bothersome. Please have patient stop the cholesterol medicine for 2 weeks. He has a history of migraines and I want to make sure that the headaches are completely gone before starting a atorvastatin 40 mg daily. It may be a flare of his migraines. I want to make sure that it is the rosuvastatin before we listed as an intolerance. The headaches should resolve in 4 to 5 days completely if it is the rosuvastatin. A atorvastatin was ordered and is at his pharmacy. The 10-year ASCVD risk score (Narda COLE, et al., 2019) is: 8.1% Values used to calculate the score: Age: 48 years Sex: Male Is Non- : No Diabetic: No Tobacco smoker: Yes Systolic Blood Pressure: 122 mmHg Is BP treated: No HDL Cholesterol: 38 mg/dL Total Cholesterol: 180 mg/dL MEDICATIONS: Current Outpatient Medications Medication Sig atorvastatin (LIPITOR) 40 mg tablet Take 1 tablet by mouth once daily. RABEprazole (ACIPHEX) 20 mg tablet Take 1 tablet by mouth once daily. metFORMIN ER (GLUCOPHAGE XR) 750 mg 24 hr tablet Take 1 tablet by mouth daily with breakfast. No current facility-administered medications for this visit. ALLERGIES: ALLERGIES Allergen Reactions Augmentin [Amoxicil* Diarrhea Bactrim [Sulfametho* Swelling PAST MEDICAL HISTORY No date: Diaphragmatic hernia without mention of obstruction or gangrene 07/12/2007: Dysthymic disorder Comment: Depression (non-psychotic) No date: Esophageal reflux No date: Legally blind No date: Seizures (HCC) Comment: childhood PAST SURGICAL HISTORY 1975: APPENDECTOMY 07/16/2008: ESOPHAGOGASTRODUODENOSCOPY TRANSORAL DIAGNOSTIC Comment: EGD No date: PAST SURGICAL HISTORY OF Comment: ORIF arm fracture 1996: PAST SURGICAL HISTORY OF Comment: Reconstruction of Rt arm after industrial accident 1975: RPR 1ST INGUN HRNA AGE 3 YRS/> REDUCIBLE Comment: Hernia repair, inguinal FAMILY HISTORY Problem Relation Age of Onset Diabetes Mother COPD Mother Cancer Maternal Grandfather Social History Tobacco Use Smoking status: Every Day Packs/day: 1.00 Years: 24.00 Additional pack years: 0.00 Total pack years: 24.00 Types: Cigarettes Smokeless tobacco: Never Vaping Use Vaping Use: Never used Substance Use Topics Alcohol use: Yes Drug use: Yes Frequency: 2.0 times per week Comment: [place] per patient Reviewed current medications, allergies, past medical history, surgical history, family history and social history today. REVIEW OF SYSTEMS All other reviewed and negative other than HPI. HEALTH MAINTENANCE: Reviewed health maintenance issues today and recommended the following in detail. Anxiety Screening Never done Colorectal Cancer Screening due on 2018 Lung Cancer Screening Never done VITALS: BP 122/92 Pulse 101 Wt 79.8 kg (176 lb) SpO2 95% BMI 25.25 kg/m? Last 4 Encounter Wt Readings: Date: Wt: 11/01/2023 80.7 kg (178 lb) 02/04/2022 83.5 kg (184 lb) 12/30/2021 84.8 kg (187 lb) 01/16/2021 84.4 kg (186 lb) PHYSICAL EXAMINATION: General appearance: Well appearing, alert, in no acute distress, well-hydrated, well nourished. Skin: Skin color, texture, turgor normal, no suspicious rashes or lesions Head: Normocephalic, no masses, lesions, tenderness or abnormalities Lungs: Lungs clear to auscultation. No wheezing, rhonchi, rales Heart: RRR without murmur, gallop, or rubs. No ectopy Abdomen: Normal abdominal exam, Abdomen soft, non-tender. Bowel sounds normal. No masses, organomegaly Extremities: No deformities, edema, skin d (more content not included)... Normal [facility] HbA1c (Bld)on 02-14-2024 Average glucose Estimated from glycated hemoglobin (Bld) [Mass/Vol] 146 mg/dL Normal [facility] Comment on above: Order Comment: Maryann raines Type: BLOOD SPECIMENOrdering Facility: [facility] Address: [address] [place] [address] Result Comment: eAG: (Estimated average glucose) is a calculated value from HgbA1c and is footwear sales representative of the average blood glucose level in the last 2-3 month period. Performed By: #### 5 5454-3 ####[facility] LABCLIA [id number] ED [facility] [id number] [place] [address] [place] HbA1c (Bld) [Mass fraction] 6.7 % High 4.3-5.6 [facility] Comment on above: Order Comment: Maryann raines Type: BLOOD SPECIMENOrdering Facility: [facility] Address: [address] [place] [address] Result Comment: Amer ican Diabetes Association guidelines indicate that patients with HgbA1c in the range 5.7-6.4% are at increased risk for development of diabetes, and intervention by lifestyle modification may be beneficial. HgbA1c greater or equal to 6.5% is considered diagnostic of diabetes. Performed By: #### 5 5454-3 ####[facility] LABCLIA [id number] [place] [address] [place] Lipid 1996 panelon 4 Cholesterol [Mass/Vol] 179 mg/dL Normal <200 [facility] Comment on above: Order Comment: Speci men Type: BLOOD SPECIMENOrdering Facility: [facility] Address: [address] [place] [address] Result Comment: <200 mg/dL, Desirable 200-239 mg/dL, Borderline high >239 mg/dL, High Performed By: #### 2 4331-1 ####[facility] LABCLIA [id number] [address] [place] Cholesterol in HDL [Mass/Vol] 41 mg/dL Normal >39 [facility] Comment on above: Order Comment: Landyi yanna Type: BLOOD SPECIMENOrdering Facility: [facility] Address: [address] [place] [address] Result Comment: 40-5 9 mg/dL, Acceptable >59 mg/dL, High: Negative risk factor for coronary heart disease <40 mg/dL, Low: Positive risk factor for coronary heart disease Performed By: #### 2 4331-1 ####[facility] LABCLIA [id number] [address] [place] Cholesterol in LDL [Mass/Vol] 115 mg/dL High <100 [facility] Comment on above: Order Comment: Maryann men Type: BLOOD SPECIMENOrdering Facility: [facility] Address: [address] [place] [address] Result Comment: <100 mg/dL, Optimal 100-129 mg/dL, Near optimal/above optimal 130-159 mg/dL, Borderline high 160-189 mg/dL, High >189 mg/dL, Very high Secondary prevention optimal LDL Cholesterol levels are recommended to be < 70 mg/dL Performed By: #### 2 4331-1 ####[facility] LABCLIA [id number] [place] [address] [place] Cholesterol in LDL/Cholesterol in HDL [Mass ratio] 2.80 {ratio} High <2.54 [facility] Comment on above: Order Comment: Speci men Type: BLOOD SPECIMENOrdering Facility: [facility] Address: [address] [place] [address] Result Comment: Natalie bartlett: 1. National Cholesterol Education Program ATP III Guideline At-A-Glance Quick Desk Reference: National Heart, Lung, and Blood [place]. National Institutes of Health. 2001: NIH Publication No. 01-3305. 2. An International Atherosclerosis Society position paper: global recommendations for the management of dyslipidemia: executive summary, Atherosclerosis. 2014: 232(2):410-413. Performed By: #### 2 4331-1 ####[facility] LABCLIA [id number] [place] [address] [place] Cholesterol in VLDL [Mass/Vol] 23 mg/dL Normal <30 [facility] Comment on above: Order Comment: Maryann raines Type: BLOOD SPECIMENOrdering Facility: [facility] [facility] Address: [address] [place] [address] Performed By: #### 2 4331-1 ####[facility] LABCLIA [id number] [place] [address] [place] Cholesterol non HDL [Mass/Vol] 138 mg/dL High <130 [facility] Comment on above: Order Comment: Landyi men Type: BLOOD SPECIMENOrdering Facility: [facility] Address: [address] [place] [address] Result Comment: <130 mg/dL, Optimal 130-159 mg/dL, Near optimal/above optimal 160-189 mg/dL, Borderline high 190-219 mg/dL, High >219 mg/dL, Very high Secondary prevention optimal non HDL Cholesterol levels are recommended to be <100 mg/dL Performed By: #### 2 4331-1 ####[facility] LABIA [id number] [place] [address] [place] Cholesterol.total/Chol esterol in HDL [Mass ratio] 4.37 {ratio} Normal <5.10 [facility] Comment on above: Order Comment: Speci men Type: BLOOD SPECIMENOrdering Facility: [facility] Address: [address] [place] [address] Performed By: #### 2 4331-1 ####[facility] LABIA [id number] [place] [address] [place] FASTING TIME 19 hrs Normal [facility] Comment on above: Order Comment: Speci men Type: BLOOD SPECIMENOrdering Facility: [facility] Address: [address] [place] [address] Performed By: #### 2 4331-1 ####[facility] [id number] [place] [address] [place] Triglyceride [Mass/Vol] 113 mg/dL Normal <150 [facility] Comment on above: Order Comment: Speci men Type: BLOOD SPECIMENOrdering Facility: [facility] Address: [address] [place] [address] Result Comment: <150 mg/dL, Normal 150-199 mg/dL, Borderline high 200-499 mg/dL, High >499 mg/dL, Very high Performed By: #### 2 4331-1 ####[facility] [id number] [place] [address] [place] PSA/PROSTATE SPECIFIC ANTIGE N SCREENINGon 02-14-2024 Prostate specific Ag [Mass/Vol] 2.12 ng/mL Normal <2.60 [facility] Comment on above: Order Comment: Speci men Type: BLOOD SPECIMENOrdering Facility: [facility] Address: [address] [place] [address] Result Comment: Tota l PSA test methodology used is the Electrochemiluminescence Immunoassay by [employer]. Total PSA values by differing methodologies cannot be interchanged. Performed By: #### P SAS1 ####[facility] GOPI [id number] [place] [id number] [place] Dana [facility] FACEMIRE,HYUN Low ([id number]) 1975 M Date Time Provider Department 02/08/24 [facility] During your visit today, we recorded the following information about you: Monserrat Smart, RN 02/08/2024 4:29 PM Signed Significant other, Trudy, reports patient wants an appt with Dr. Barnett only. Reports patient just saw Dr. Barnett's associate, and she prescribed medications for him and he would like to discuss these medications with Dr. Barnett. Trudy states patient is confused about why he is prescribed these. Scheduled appt. Allergies As of Date: 02/08/2024 Noted Allergy Reaction AUGMENTIN (AMOXICILLIN-POT CLAVUL*05/08/2011 6 - Diarrhea BACTRIM (SULFAMETHOXAZOLE) 06/27/2012 7 - Swelling Date Reviewed: 11/01/2023 Reviewed by: Gilda Wright APRN.DIDACTIC INSTRUCTOR - Fully Assessed Reason for Visit: Appointment [186] Prescriptions as of 02/08/2024 - atorvastatin (LIPITOR) 40 mg tablet Take 1 tablet by mouth once daily. - RABEprazole (ACIPHEX) 20 mg tablet Take 1 tablet by mouth once daily. - metFORMIN ER (GLUCOPHAGE XR) 750 mg 24 hr tablet Take 1 tablet by mouth daily with breakfast. Meds Comments as of 04/03/2019: Uses medication to help with bladder control, unsure what medication is. 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] 11/23/2008 BPH loc w/o ur obs/LUTS [N40.0] 05/08/2011 05/08/2011 BPH loc w urin obs/LUTS [N40.1] 05/08/2011 Tobacco abuse [Z72.0] 06/10/2011 Migraine [G43.909] 05/25/2013 Legally 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] 05/27/2018 Encounter Status:Closed by Monserrat SMART on 02/08/24 Normal [facility] CBC W Auto Differential pane l (Bld)on 11-01-2023 Basophils (Bld) [#/Vol] 0.08 10*3/uL [facility] Basophils/100 WBC (Bld) 1.2 % [facility] Differential cell count method Nom (Bld) Auto [facility] Eosinophils (Bld) [#/Vol] 0.10 10*3/uL [facility] Eosinophils/100 WBC (Bld) 1.5 % [facility] Erythrocyte distribution width (RBC) [Ratio] 14.3 % 11.5 - 15.0 % [facility] Hematocrit (Bld) [Volume fraction] 49.6 % 39.0 - 51.0 % [facility] Hemoglobin (Bld) [Mass/Vol] 16.6 g/dL 13.0 - 17.0 g/dL [facility] Immature granulocytes (Bld) [#/Vol] 0.03 10*3/uL [facility] Immature granulocytes/100 WBC (Bld) 0.5 % [facility] Lymphocytes (Bld) [#/Vol] 2.23 10*3/uL [facility] Lymphocytes/100 WBC (Bld) 34.4 % [facility] MCH (RBC) [Entitic mass] 30.4 pg 26.0 - 34.0 pg [facility] MCHC (RBC) [Mass/Vol] 33.5 g/dL 30.5 - 36.0 g/dL [facility] MCV (RBC) [Entitic vol] 90.8 fL 80.0 - 100.0 fL [facility] Monocytes (Bld) [#/Vol] 0.40 10*3/uL NINF [facility] Monocytes/100 WBC (Bld) 6.2 % [facility] Neutrophils (Bld) [#/Vol] 3.64 10*3/uL [facility] Neutrophils/100 WBC (Bld) 56.2 % [facility] Nucleated RBC (Bld) [#/Vol] NINF [facility] Nucleated RBC/100 WBC (Bld) [Ratio] 0.0 % /100 WBC [facility] Platelet mean volume (Bld) [Entitic vol] 11.8 fL 9.0 - 12.7 fL [facility] Platelets (Bld) [#/Vol] 192 10*3/uL [facility] RBC (Bld) [#/Vol] 5.46 10*6/uL 4.20 - 6.00 m/uL [facility] WBC (Bld) [#/Vol] 6.48 10*3/uL [facility] Cobalamin (Vitamin B12) [Mas s/Vol]on 11-01-2023 Interpretation and review of laboratory results Normal [facility] Comprehensive metabolic 2000 panelon 11-01-2023 Albumin [Mass/Vol] 4.4 g/dL 3.9 - 4.9 g/dL [facility] ALP [Catalytic activity/Vol] 78 U/L 38 - 113 U/L [facility] ALT [Catalytic activity/Vol] 18 U/L 10 - 54 U/L [facility] Anion gap [Moles/Vol] 8 mmol/L Low 9 - 18 mmol/L [facility] AST [Catalytic activity/Vol] 18 U/L 14 - 40 U/L [facility] Bilirubin [Mass/Vol] 0.4 mg/dL 0.2 - 1 .3 mg/dL [facility] Calcium [Mass/Vol] 10.0 mg/dL 8.5 - 10. 2 mg/dL [facility] Chloride [Moles/Vol] 105 mmol/L 97 - 10 5 mmol/L [facility] CO2 [Moles/Vol] 25 mmol/L 22 - 30 mmol/L [facility] Creatinine [Mass/Vol] 0.92 mg/dL 0.73 - 1.22 mg/dL [facility] GFR/1.73 sq M.predicted among non-blacks MDRD (S/P/Bld) [Vol rate/Area] 101 mL/min/{1.73_m2} - PINF [facility] Comment on above: Estimated Glomerular Filtration Rate (eGFR) is calculated using the 2020 CKD-EPI creatinine equation. This equation utilizes serum creatinine, sex, and age as parameters. The creatinine assay has traceable calibration to isotope dilution-mass spectrometry. Refer to KDIGO guidelines for clinical interpretation. In patients with unstable renal function, e.g. those with acute kidney injury, the eGFR may not accurately reflect actual GFR. Glucose [Mass/Vol] 113 mg/dL High 74 - 99 mg/dL [facility] Comment on above: The [place] Diabete s Association (ADA) provides guidance for cutoff values for fasting glucose and random glucose. The ADA defines fasting as no caloric intake for at least 8 hours. Fasting plasma glucose results between 100 to 125 mg/dL indicate increased risk for diabetes (prediabetes). Fasting plasma glucose results greater than or equal to 126 mg/dL meet the criteria for diagnosis of diabetes. In the absence of unequivocal hyperglycemia, results should be confirmed by repeat testing. In a patient with classic symptoms of hyperglycemia or hyperglycemic crisis, random plasma glucose results greater than or equal to 200 mg/dL meet the criteria for diagnosis of diabetes. Reference: Standards of Medical Care in Diabetes 2016, [place] Diabetes Association. Diabetes Care. 2016.39(Suppl 1). Potassium [Moles/Vol] 4.2 mmol/L 3.7 - 5.1 mmol/L [facility] Protein [Mass/Vol] 7.4 g/dL 6.3 - 8.0 g/dL [facility] Sodium [Moles/Vol] 138 mmol/L 136 - 144 mmol/L [facility] Urea nitrogen [Mass/Vol] 10 mg/dL 9 - 24 mg/dL [facility] HbA1c (Bld)on 11-01-2023 Average glucose Estimated from glycated hemoglobin (Bld) [Mass/Vol] 146 mg/dL [facility] Comment on above: eAG: (Estimated aver age glucose) is a calculated value from HgbA1c and is footwear sales representative of the average blood glucose level in the last 2-3 month period. HbA1c (Bld) [Mass fraction] 6.7 % High 4.3 - 5.6 % [facility] Comment on above: [place] Diabetes As sociation guidelines indicate that patients with HgbA1c in the range 5.7-6.4% are at increased risk for development of diabetes, and intervention by lifestyle modification may be beneficial. HgbA1c greater or equal to 6.5% is considered diagnostic of diabetes. Interpretation and review of laboratory results Abnormal [facility] LIPID PANEL, NONFASTINGon Cholesterol [Mass/Vol] 180 mg/dL NINF - 200 mg/dL [facility] Comment on above: <200 mg/dL, Desirabl e 200-239 mg/dL, Borderline high >239 mg/dL, High HDL Cholesterol, Nonfasting 38 mg/dL Low 39 - PINF mg/dL [facility] Comment on above: 40-59 mg/dL, Accepta ble >59 mg/dL, High: Negative risk factor for coronary heart disease <40 mg/dL, Low: Positive risk factor for coronary heart disease LDL Cholesterol, Nonfasting 117 mg/dL High NINF - 100 mg/dL [facility] Comment on above: <100 mg/dL, Optimal 100-129 mg/dL, Near optimal/above optimal 130-159 mg/dL, Borderline high 160-189 mg/dL, High >189 mg/dL, Very high Secondary prevention optimal LDL Cholesterol levels are recommended to be < 70 mg/dL LDL/HDL Ratio, Nonfasting 3.08 mg/dL High NINF - 2.54 mg/dL [facility] Comment on above: Reference: 1. National Cholesterol Education Program ATP III Guideline At-A-Glance Quick Desk Reference: National Heart, Lung, and Blood [place]. National Institutes of Health. 2001: NIH Publication No. 01-3305. 2. An International Atherosclerosis Society position paper: global recommendations for the management of dyslipidemia: executive summary, Atherosclerosis. 2014: 232(2):410-413. Non HDL Cholesterol, Nonfasting 142 mg/dL High NINF - 130 mg/dL [facility] Comment on above: <130 mg/dL, Optimal 130-159 mg/dL, Near optimal/above optimal 160-189 mg/dL, Borderline high 190-219 mg/dL, High >219 mg/dL, Very high Secondary prevention optimal non HDL Cholesterol levels are recommended to be <100 mg/dL Total Chol/HDL Ratio, Nonfasting 4.74 mg/dL NINF - 5.10 mg/dL [facility] Triglycerides, Nonfasting 125 mg/dL NINF - 150 mg/dL [facility] Comment on above: <150 mg/dL, Normal 150-199 mg/dL, Borderline high 200-499 mg/dL, High >499 mg/dL, Very high VLDL Cholesterol, Nonfasting 25 mg/dL NINF - 30 mg/dL [facility] MAGNESIUMon 11-01-2023 Magnesium [Mass/Vol] 2.1 mg/dL 1.7 - 2 .3 mg/dL [facility] Magnesium [Mass/Vol]on 10-31 Interpretation and review of laboratory results Normal [facility] No Panel Informationon 10-31 Interpretation and review of laboratory results Abnormal [facility] VITAMIN B12on 11-01-2023 Cobalamin (Vitamin B12) [Mass/Vol] 404 pg/mL 232 - 1245 pg/mL [facility] Office Visiton 12-02-2016 Alcoholism counseling (procedure) no Invalid Interpretation Code [facility] [employer] Work Phone: Documentation of current medications (procedure) T Invalid Interpretation Code [facility] [employer] Work Phone: Documentation of current medications (procedure) Done Invalid Interpretation Code [facility] [place] Work Phone: Fall risk assessment No Invalid Interpretation Code [facility] [place] Work Phone: Smoking cessation education (procedure) yes Invalid Interpretation Code [facility] [employer] Work Phone: Tobacco smoking status NHIS Never Invalid Interpretation Code [facility] [employer] Work Phone: Tobacco use CPHS Current every day smoker Invali d Interpretation Code [facility] [employer] Work Phone: Vital Signs Date Time Vital Sign Value Performing Clinician Facility 12-15-2024 14:31-0400 Body mass index (BMI) [Ratio] 22.96 kg/m2 Cristian Barnett MD Work Phone: [facility] 12-15-2024 14:31-0400 Body weight 72.58 kg Cristian Barnett MD Work Phone: [facility] 12-15-2024 14:31-0400 Diastolic blood pressure 62 mm[Hg] Cristian Barnett MD Work Phone: [facility] 12-15-2024 14:31-0400 Heart rate 111 /min Cristian Barnett MD Work Phone: [facility] 12-15-2024 14:31-0400 SaO2% (BldA) [Mass fraction] 97 % Cristian Barnett MD Work Phone: [facility] 12-15-2024 14:31-0400 Systolic blood pressure 102 mm[Hg] Cristian Barnett MD Work Phone: [facility] 11-22-2024 10:43-0400 Body height 177.8 cm Cristian Barnett MD Work Phone: [facility] 11-22-2024 10:43-0400 Body mass index (BMI) [Ratio] 23.68 kg/m2 Cristian Barnett MD Work Phone: [facility] 11-22-2024 10:43-0400 Body weight 74.84 kg Cristian Barnett MD Work Phone: [facility] 11-22-2024 10:43-0400 Diastolic blood pressure 86 mm[Hg] Cristian Barnett MD Work Phone: [facility] 11-22-2024 10:43-0400 Heart rate 100 /min Cristian Barnett MD Work Phone: [facility] 11-22-2024 10:43-0400 SaO2% (BldA) [Mass fraction] 96 % Cristian Barnett MD Work Phone: [facility] 11-22-2024 10:43-0400 Systolic blood pressure 108 mm[Hg] Cristian Barnett MD Work Phone: [facility] 11-14-2024 08:53-0400 Body height 175.[address] Cristian Barnett MD Work Phone: [facility] 11-14-2024 08:53-0400 Body mass index (BMI) [Ratio] 24 kg/m2 Dr. Cristian Barnett MD Work Phone: [facility] 11-14-2024 08:53-0400 Body temperature 98.2 [degF] Dr. Cristian Barnett MD Work Phone: 5(476)184-527021 [place] [address] 11-14-2024 08:53-0400 Body weight 73.[address] Cristian Barnett MD Work Phone: 6(427)108-126921 [place] [address] 11-14-2024 08:53-0400 Diastolic blood pressure 84 mm[Hg] Dr. Cristian Barnett MD Work Phone: 4(378)519-699921 [place] [address] 11-14-2024 08:53-0400 Heart rate 88 /min Dr. Cristian Barnett MD Work Phone: 4(798)217-258821 [place] [address] 11-14-2024 08:53-0400 Respiratory rate 18 /min Dr. Cristian Barnett MD Work Phone: 1(341)300-702621 [place] [address] 11-14-2024 08:53-0400 SaO2% (BldA) [Mass fraction] 97 % Dr. Cristian Barnett MD Work Phone: 8(145)[phone] [place] [address] 11-14-2024 08:53-0400 Systolic blood pressure 125 mm[Hg] Dr. Cristian Barnett MD Work Phone: 0(671)216-455721 [place] [address] 11-12-2024 11:48-0400 Body temperature 97.8 [degF] Dr. Cristian Barnett MD Work Phone: 4(539)[phone] [place] [address] 11-12-2024 11:48-0400 Diastolic blood pressure 74 mm[Hg] Dr. Cristian Barnett MD Work Phone: 3(382)782-428921 [place] [address] 11-12-2024 11:48-0400 Heart rate 79 /min Dr. Cristian Barnett MD Work Phone: 1(111)227-540021 [place] [address] 11-12-2024 11:48-0400 Respiratory rate 15 /min Dr. Cristian Barnett MD Work Phone: 3(686)[phone] [place] [address] 11-12-2024 11:48-0400 SaO2% (BldA) [Mass fraction] 98 % Dr. Cristian Barnett MD Work Phone: 1(442)047-487821 [place] [address] 11-12-2024 11:48-0400 Systolic blood pressure 124 mm[Hg] Dr. Cristian Barnett MD Work Phone: [facility] 11-12-2024 08:03-0400 Body mass index (BMI) [Ratio] 25.1 kg/m2 Dr. Cristian Barnett MD Work Phone: [facility] 11-12-2024 08:03-0400 Body weight 77.[address] Cristian Barnett MD Work Phone: [facility] 02-14-2024 14:36-0400 Body mass index (BMI) [Ratio] 25.25 kg/m2 Cristian Barnett MD Work Phone: [facility] 02-14-2024 14:36-0400 Body weight 79.83 kg Cristian Barnett MD Work Phone: [facility] 02-14-2024 14:36-0400 Diastolic blood pressure 92 mm[Hg] Cristian Barnett MD Work Phone: [facility] 02-14-2024 14:36-0400 Heart rate 101 /min Cristian Barnett MD Work Phone: [facility] 02-14-2024 14:36-0400 SaO2% (BldA) [Mass fraction] 95 % Cristain Barnett MD Work Phone: [facility] 02-14-2024 14:36-0400 Systolic blood pressure 122 mm[Hg] Cristian Barnett MD Work Phone: [facility] 11-01-2023 10:27-0400 Body mass index (BMI) [Ratio] 25.54 kg/m2 Gilda Wright FREELANCE DATA ENTRY.DIDACTIC INSTRUCTOR Work Phone: [facility] 11-01-2023 10:27-0400 Body weight 80.74 kg Gilda Suppgena FREELANCE DATA ENTRY.DIDACTIC INSTRUCTOR Work Phone: [facility] 11-01-2023 10:27-0400 Diastolic blood pressure 80 mm[Hg] Gilda Wright FREELANCE DATA ENTRY.DIDACTIC INSTRUCTOR Work Phone: [facility] 11-01-2023 10:27-0400 Heart rate 77 /min Gildaalan Wright FREELANCE DATA ENTRY.DIDACTIC INSTRUCTOR Work Phone: [facility] 11-01-2023 10:27-0400 Respiratory rate 18 /min Gilda Fieldsgena FREELANCE DATA ENTRY.DIDACTIC INSTRUCTOR Work Phone: [facility] 11-01-2023 10:27-0400 SaO2% (BldA) [Mass fraction] 97 % Gilda Fieldsgena FREELANCE DATA ENTRY.DIDACTIC INSTRUCTOR Work Phone: [facility] 11-01-2023 10:27-0400 Systolic blood pressure 138 mm[Hg] Gilda Fieldsgena FREELANCE DATA ENTRY.DIDACTIC INSTRUCTOR Work Phone: [facility] 12-30-2021 16:22-0400 Body weight 84.82 kg Cristian Barnett MD Work Phone: [facility] 12-30-2021 16:22-0400 Diastolic blood pressure 82 mm[Hg] Cristian Barnett MD Work Phone: [facility] 12-30-2021 16:22-0400 Heart rate 110 /min Cristian Barnett MD Work Phone: [facility] 12-30-2021 16:22-0400 Respiratory rate 16 /min Cristian Barnett MD Work Phone: [facility] 12-30-2021 16:22-0400 SaO2% (BldA) [Mass fraction] 97 % Cristian Barnett MD Work Phone: [facility] 12-30-2021 16:22-0400 Systolic blood pressure 120 mm[Hg] Cristian Barnett MD Work Phone: [facility] 12-02-2016 15:07-0400 BMI (Body Mass Index) 22.59 kg/m2 Hernan Vincent MD [facility] Work Phone: 12-02-2016 15:07-0400 Body Temperature 98.1 [degF] Hernan Vincent MD [facility] Work Phone: 12-02-2016 15:07-0400 BP Diastolic 76 mm[Hg] Hernan Vincent MD [facility] Work Phone: 12-02-2016 15:07-0400 BP Systolic 112 mm[Hg] Hernan Vincent MD [facility] Work Phone: 12-02-2016 15:07-0400 Height 175.26 cm Hernan Vincent MD [facility] [employer] Work Phone: 12-02-2016 15:07-0400 Pulse (Heart Rate) 61 /min Hernan Vincent MD [facility] [employer] Work Phone: 12-02-2016 15:07-0400 Pulse Oximetry 98 % Hernan Vincent MD [facility] [employer] Work Phone: 12-02-2016 15:07-0400 Respiratory Rate 16 /min Hernan Vincent MD [facility] [employer] Work Phone: 12-02-2016 15:07-0400 Weight 69.4 kg Hernan Vincent MD [facility] [employer] Work Phone: Encounters Encounter Date Encounter Type Care Provider Facility Start: 01-04-2025 ambulatory [facility] Facility:[facility] Start: 12-29-2024 Encounter for other preprocedural examination [facility] Start: 12-27-2024 End: 12-27-2024 [facility]phone [facility] above: Patient Question Start: 12-21-2024 End: 12-21-2024 Telephone encounter Cristian Barnett MD Work Phone: [facility] Comment on above: Patient Question Start: 12-20-2024 End: 12-20-2024 Refill Cristian Barnett MD Work Phone: [facility] Comment on above: Refill Request Start: 12-19-2024 End: 12-19-2024 Telephone encounter Cristian Barnett MD Work Phone: [facility] Comment on above: Results Start: 12-18-2024 End: 12-18-2024 ambulatory CRISTIAN BARNETT Facility:[facility] Start: 12-18-2024 End: 12-18-2024 Telephone encounter Cristian Barnett MD Work Phone: [facility] Comment on above: Results Start: 12-15-2024 End: 12-15-2024 Subsequent hospital visit by physician Xr [facility] Work Phone: Radiology Comment on above: Acute constipation [ K59.00] Start: 12-15-2024 End: 12-15-2024 Patient encounter procedure Cristian Barnett MD Work Phone: [facility] Comment on above: Hilar lymphadenopath y (Primary Dx); Medication monitoring encounter; Lymphadenopathy, abdominal; Lung nodules; Chest wall pain; Tobacco abuse; Gross hematuria; Acute constipation; Night sweats Start: 12-15-2024 End: 12-15-2024 ambulatory CRISTIAN BARNETT Facility:[facility] Start: 11-28-2024 End: 11-28-2024 Refill Cristian Barnett MD Work Phone: [facility] Comment on above: Refill Request Start: 11-23-2024 End: 11-23-2024 Telephone encounter Cristian Barnett MD Work Phone: Pulmonology [facility] Comment on above: Results Start: 11-22-2024 End: 11-22-2024 ambulatory CRISTIAN BARNETT Facility:[facility] Start: 11-22-2024 End: 11-22-2024 Patient encounter procedure Cristian Barnett MD Work Phone: [facility] Comment on above: Lung nodules (Primar y Dx); Controlled type 2 diabetes mellitus without complication, without long-term current use of insulin (HCC); Hyperlipidemia, mixed; Tobacco abuse; Lymphadenopathy, abdominal; Hilar lymphadenopathy Start: 11-22-2024 End: 11-22-2024 ambulatory CRISTIAN BARNETT Facility:[facility] Start: 11-14-2024 End: 11-14-[address] Cristian Barnett MD Work Phone: [facility] Work Phone: Start: 11-14-2024 End: 11-14-[address] Denny Moffett DO -Laboratory Work Phone: Start: 11-14-2024 End: 11-14-[address] Denny Moffett DO [facility] Pulmonary Medicine Work Phone: Start: 11-14-2024 End: 11-14-2024 ambulatory Denny Moffett Facility[place] Start: 11-14-2024 End: 11-14-2024 ambulatory Denny Moffett Facility:[facility] Start: 11-12-2024 End: 11-12-2024 Emergency department patient visit Dr. Dionicio Grimes DO -Emergency Department Work Phone: Start: 11-09-2024 End: 11-09-2024 ambulatory Cristian Barnett MD Work Phone: [facility] Comment on above: Chest Pain Start: 11-09-2024 End: 11-09-2024 Telephone encounter Cristian Barnett MD Work Phone: [facility] Comment on above: Chest Pain Start: 10-04-2024 End: 10-04-2024 Refill Cristian Barnett MD Work Phone: [facility] Comment on above: Refill Request Start: 02-16-2024 Telephone encounter Cristian Barnett MD Work Phone: [facility] Comment on above: Results Start: 02-14-2024 End: 02-14-2024 ambulatory CRISTIAN Melton WENDI Facility:[facility] Start: 02-14-2024 End: 02-14-2024 Patient encounter procedure Cristian Barnett MD Work Phone: [facility] Comment on above: Controlled type 2 di abetes mellitus without complication, without long-term current use of insulin (HCC) (Primary Dx); Hyperlipidemia, mixed; Tobacco abuse; Screening for prostate cancer; Encounter for screening examination for other mental health and behavioral disorders Start: 02-14-2024 End: 02-14-2024 ambulatory [facility] Facility:[facility] Start: 02-08-2024 Telephone encounter Cristian Barnett MD Work Phone: [facility] Comment on above: Appointment Start: 11-29-2023 Telephone encounter Gilda Wright APRN.CNS Work Phone: [facility] Comment on above: Medication Problem Start: 11-01-2023 Telephone encounter Gilda Wright APRN.DIDACTIC INSTRUCTOR Work Phone: [facility] Comment on above: Results Start: 11-01-2023 End: 11-01-2023 Periodic preventive med est patient 40-64yrs Gilda Wright APRN.DIDACTIC INSTRUCTOR Work Phone: [facility] Comment on above: Screening for colon cancer (Primary Dx); Hiatal hernia; Screening for diabetes mellitus; Screening for lipid disorders; Chronic pain of both knees; Tobacco abuse; Acute pharyngitis due to other specified organisms; Allergic contact dermatitis due to other agents Start: 10-27-2023 Telephone encounter Cristian Barnett MD Work Phone: [facility] Comment on above: Opened In Error Start: 10-08-2022 Refill [facility] MD [facility] Comment on above: Refill Request Start: 12-30-2021 End: 12-30-2021 Patient encounter procedure Cristian Barnett MD Work Phone: [facility] Comment on above: Paresthesia (Primary Dx); Screening for colon cancer Procedures Date Procedure Procedure Detail Performing Clinician Start: 12-15-2024 Radiologic exam abdo men 1 view Cristian Barnett MD Work Phone: Start: 11-12-2024 CT of thorax, abdome n and pelvis with contrast Dr. Cristian Barnett MD Work Phone: Start: 11-12-[address] Cristian Barnett MD Work Phone: Start: 02-14-2024 Lipid 1996 panel - S michael or Plasma Cristian Barnett MD Work Phone: Start: 11-01-2023 Lipid 1996 panel - S michael or Plasma Gilda Wright APRN.DIDACTIC INSTRUCTOR Work Phone: Start: 01-15-2021 Lipid 1996 panel - S michael or Plasma Cristian Barnett MD Work Phone: Plan of Treatment Date Care Activity Detail Author Start: 02-13-2029 Lipid panel Lipid Screening [facility] Start: 10-31-2028 Lipid panel Lipid Screening [facility] Start: 02-13-2027 Diabetes Screening Diabetes Screenin g [facility] Start: 10-31-2026 Diabetes Screening Diabetes Screenin g [facility] Start: 01-15-2026 Lipid panel Lipid Screening [facility] Start: 01-15-2026 LIPID SCREEN LIPID SCREEN [facility] Start: 12-15-2025 Annual PCP Team Nurse Advocate starr Disease Visit Annual PCP Team Chronic Disease Visit [facility] Start: 11-22-2025 Annual PCP Team Nurse Advocate starr Disease Visit Annual PCP Team Chronic Disease Visit [facility] Start: 05-25-2025 Hemoglobin A1c measurement HbA1C [facility] Start: 03-12-2025 Influenza vaccination Influenz a Vaccine (Season Ended) [facility] Start: 02-26-2025 End: 02-26-2025 Patient encounter procedure 02/26/2025 3:40 PM EDT Office Visit Family [facility] [address] [place] [address] Cristian Barnett MD [address] [place] [address] 3 month follow up Family [facility] Comment on above: 3 month follow up Start: 02-13-2025 Anxiety Screening Anxiety Screening [facility] Start: 02-13-2025 Hepatitis B surface antibody level LDL Cholesterol [facility] Start: 01-24-2025 End: 01-24-2025 Patient encounter procedure 01/24/2025 4:20 PM EDT Office Visit Family Keyshawn [facility] [address] [place] [address] Cristian Barnett MD [address] [place] [id number] 6 week follow up Family [facility] Comment on above: 6 week follow up Start: 01-18-2025 End: 04-19-2025 CBC W Auto Differential panel - Blood COMPLETE BLOOD COUNT AND DIFFERENTIAL Lab Routine Anemia, unspecified type Expected: 01/18/2025, Expires: 04/19/2025 [facility] Comment on above: Expected: 01/18/2025 , Expires: 04/19/2025 Start: 01-18-2025 End: 04-19-2025 Ferritin [Mass/volume] in Serum or Plasma FERRITIN Lab Routine Anemia, unspecified type Expected: 01/18/2025, Expires: 04/19/2025 [facility] Comment on above: Expected: 01/18/2025 , Expires: 04/19/2025 Start: 01-18-2025 End: 04-19-2025 Folate [Mass/volume] in Serum or Plasma FOLATE, SERUM Lab Routine Anemia, unspecified type Folic acid deficiency Expected: 01/18/2025, Expires: 04/19/2025 [facility] Comment on above: Expected: 01/18/2025 , Expires: 04/19/2025 Start: 01-18-2025 End: 04-19-2025 Iron and Iron binding capacity panel - Serum or Plasma IRON AND TIBC Lab Routine Anemia, unspecified type Expected: 01/18/2025, Expires: 04/19/2025 [facility] Comment on above: Expected: 01/18/2025 , Expires: 04/19/2025 Start: 12-18-2024 End: 12-18-2025 Cobalamin (Vitamin B12) [Mass/volume] in Serum or Plasma [facility] Work Phone: Comment on above: Expected: 12/18/2024 , Expires: 12/18/2025 Start: 12-18-2024 End: 12-18-2025 Folate [Mass/volume] in Serum or Plasma [facility] Comment on above: Expected: 12/18/2024 , Expires: 12/18/2025 Start: 12-15-2024 End: 03-16-2025 Bacteria identified in Urine by Culture BACTERIAL CULTURE, URINE Microbiology Routine Gross hematuria Expected: 12/15/2024, Expires: 03/16/2025 [facility] Comment on above: Expected: 12/15/2024 , Expires: 03/16/2025 Start: 12-15-2024 End: 03-16-2025 C reactive protein [Mass/volume] in Serum or Plasma [facility] Comment on above: Expected: 12/15/2024 , Expires: 03/16/2025 Start: 12-15-2024 End: 03-16-2025 CBC W Auto Differential panel - Blood [facility] Work Phone: Comment on above: Expected: 12/15/2024 , Expires: 03/16/2025 Start: 12-15-2024 End: 03-16-2025 Comprehensive metabolic 2000 panel - Serum or Plasma [facility] Comment on above: Expected: 12/15/2024 , Expires: 03/16/2025 Start: 12-15-2024 End: 03-16-2025 Erythrocyte sedimentation rate [facility] Comment on above: Expected: 12/15/2024 , Expires: 03/16/2025 Start: 12-15-2024 End: 03-16-2025 Lactate dehydrogenase [Enzymatic activity/volume] in Serum or Plasma [facility] Comment on above: Expected: 12/15/2024 , Expires: 03/16/2025 Start: 12-15-2024 End: 03-16-2025 Thyrotropin [Units/volume] in Serum or Plasma [facility] Comment on above: Expected: 12/15/2024 , Expires: 03/16/2025 Start: 12-15-2024 End: 03-16-2025 Urinalysis complete panel - Urine URINALYSIS, WITH MICROSCOPIC Lab Routine Gross hematuria Expected: 12/15/2024, Expires: 03/16/2025 [facility] Comment on above: Expected: 12/15/2024 , Expires: 03/16/2025 Start: 11-29-2024 End: 11-29-2024 Patient encounter procedure 11/29/2024 4:00 PM EDT Office Visit [facility] [address] [place] [address] Cristian Barnett MD [address] [place], [place] [id number] [facility] Comment on above: Wellness Start: 11-22-2024 End: 02-21-2025 Hemoglobin A1c in Blood [facility] Work Phone: Comment on above: Expected: 11/22/2024 , Expires: 02/21/2025 Start: 11-12-2024 [facility] Start: 11-12-2024 Referral to oncologist [facility] Start: 11-01-2024 End: 11-01-2024 Patient encounter procedure 11/01/2024 10:40 AM EDT Office Visit [facility] [address] [place] [address] Cristian Barnett MD [address] [place], [place] [id number] [facility] Comment on above: Physical Start: 10-31-2024 Covid-19 Vaccine () Covid-19 Vaccine () [facility] Comment on above: Postponed from 03/12 (Declined at this time) Start: 10-31-2024 Hepatitis B Vaccine (1 of 3 - 19+ 3-dose series) Hepatitis B Vaccine (1 of 3 - 19+ 3-dose series) [facility] Comment on above: Postponed from 07/29 (Declined at this time) Start: 10-31-2024 Pneumococcal vaccination Pneum ococcal Vaccine (1 of 2 - PCV) [facility] Comment on above: Postponed from 07/29 (Declined at this time) Start: 10-31-2024 Shingrix Vaccine (1 of 2) Welch grix Vaccine (1 of 2) [facility] Comment on above: Postponed from 07/29 (Declined at this time) Start: 10-31-2024 Urine microalbumin profile DTaP,Tdap,Td Vaccine (1 - Tdap) [facility] Comment on above: Postponed from 03/07 (Insurance Coverage) Start: 08-22-2024 End: 08-22-2024 Patient encounter procedure 08/22/2024 4:20 PM EST Office Visit Family Keyshawn [facility] [address] [place] [address] Cristian Barnett MD [address] [place], [place] [address] 6 month follow up [facility] Comment on above: 6 month follow up Start: 02-05-2025 Hemoglobin A1c measurement HbA1C [facility] Start: 07-12-2024 Medicare Advantage A nnual Wellness Visit Medicare Advantage Annual Wellness Visit [facility] Start: 05-05-2024 End: 05-05-2024 Patient encounter procedure 05/05/2024 3:20 PM EDT Office Visit [facility] [address] [place] [address] Cristian Barnett MD [address] [facility] [place] [address] 3 month follow up [facility] Comment on above: 3 month follow up Start: 05-03-2024 End: 08-02-2024 Hemoglobin A1c in Blood HEMOGLOBIN A1C Lab Routine Controlled type 2 diabetes mellitus without complication, without long-term current use of insulin (HCC) Expected: 05/03/2024 (Approximate), Expires: 08/02/2024 [facility] Work Phone: Comment on above: Expected: 05/03/2024 (Approximate), Expires: 08/02/2024 Start: 05-03-2024 End: 08-02-2024 Lipid 1996 panel - Serum or Plasma LIPID PANEL BASIC Lab Routine Hyperlipidemia, mixed Expected: 05/03/2024 (Approximate), Expires: 08/02/2024 [facility] Comment on above: Expected: 05/03/2024 (Approximate), Expires: 08/02/2024 Start: 05-01-2024 End: 05-01-2024 Patient encounter procedure 05/01/2024 12:40 PM EDT Office Visit [facility] [address] [facility] [address] Gilda Wright, FREELANCE DATA ENTRY.DIDACTIC INSTRUCTOR [address] [place] [address] 6 month f/u DM/Cholesterol Family [facility] Comment on above: 6 month f/u DM/Lucia sterol Start: 03-12-2024 Covid-19 Vaccine ( season) Covid-19 Vaccine () [facility] Start: 03-12-2024 Influenza vaccination C [facility] Start: 02-28-2024 End: 02-28-2024 Patient encounter procedure 02/28/2024 1:30 PM EDT Office Visit Pulmonary Medicine [address] [place] [address] Noemí Roblero APRN.FLAME BURNER [address] [place] [address] Tobacco abuse [Z72.0] Pulmonary Medicine Comment on above: Tobacco abuse [Z72.0 ] Start: 02-14-2024 End: 02-14-2024 Patient encounter procedure 02/14/2024 3:00 PM EDT Office Visit Family [facility] [address] [place], [place] [id number] Cristian Barnett MD [address] [place] [address] Check up and review medications [facility] Comment on above: Check up and review medications Start: 02-14-2024 End: 05-15-2024 Hemoglobin A1c in Blood [facility] Comment on above: Expected: 02/14/2024 , Expires: 05/15/2024 Start: 02-14-2024 End: 05-15-2024 Lipid 1996 panel - Serum or Plasma [facility] Comment on above: Expected: 02/14/2024 , Expires: 05/15/2024 Start: 02-14-2024 End: 05-15-2024 PSA/PROSTATE SPECIFIC ANTIGEN SCREENING [facility] Work Phone: Comment on above: Expected: 02/14/2024 , Expires: 05/15/2024 Start: 01-16-2024 DIABETES SCREEN DIABETES SCREEN [facility] Start: 01-16-2024 Diabetes Screening Diabetes Screenin g [facility] Start: 11-29-2023 End: 11-29-2023 Patient encounter procedure 11/29/2023 9:00 AM EDT Office Visit Pulmonary Medicine [address] [place] [address] Noemí Roblero APRN.FLAME BURNER [address] [place] [address] Tobacco abuse [Z72.0] Pulmonary Medicine Comment on above: Tobacco abuse [Z72.0 ] Start: 11-01-2023 End: 01-31-2024 25-hydroxyvitamin D3 [Mass/volume] in Serum or Plasma [facility] Comment on above: Expected: 11/01/2023 , Expires: 01/31/2024 Start: 2023 Screening for malign ant neoplasm of lung Lung Cancer Screening [facility] Start: 2023 Shingrix Vaccine (1 of 2) Welch grix Vaccine (1 of 2) [facility] Start: 03-12-2023 Covid-19 Vaccine () Covid-19 Vaccine () [facility] Start: 12-30-2022 Diabetic foot examination Diabetic F oot Exam [facility] Start: 03-12-2022 Influenza vaccination C [facility] Start: 02-10-2022 End: 04-12-2022 Thyrotropin [Units/volume] in Serum or Plasma TSH BLD Lab Routine Paresthesia Expected: 02/10/2022, Expires: 04/12/2022 [facility] Work Phone: Comment on above: Expected: 02/10/2022 , Expires: 04/12/2022 Start: 12-30-2021 End: 03-01-2022 CBC W Auto Differential panel - Blood CBC + DIFF Lab Routine Paresthesia Expected: 12/30/2021, Expires: 03/01/2022 [facility] Work Phone: Comment on above: Expected: 12/30/2021 , Expires: 03/01/2022 Start: 12-30-2021 End: 03-01-2022 Cobalamin (Vitamin B12) [Mass/volume] in Serum or Plasma VITAMIN B12 BLOOD Lab Routine Paresthesia Expected: 12/30/2021, Expires: 03/01/2022 [facility] Work Phone: Comment on above: Expected: 12/30/2021 , Expires: 03/01/2022 Start: 12-30-2021 End: 03-01-2022 Comprehensive metabolic 2000 panel - Serum or Plasma COMP METABOLIC PANEL Lab Routine Paresthesia Expected: 12/30/2021, Expires: 03/01/2022 [facility] Work Phone: Comment on above: Expected: 12/30/2021 , Expires: 03/01/2022 Start: 12-30-2021 End: 03-01-2022 Folate [Mass/volume] in Serum or Plasma FOLATE SERUM Lab Routine Paresthesia Expected: 12/30/2021, Expires: 03/01/2022 [facility] Work Phone: Comment on above: Expected: 12/30/2021 , Expires: 03/01/2022 Start: 12-30-2021 End: 03-01-2022 PROTEIN ELECTROPHORESIS SERUM W/INTERP PROTEIN ELECTROPHORESIS SERUM W/INTERP Lab Routine Paresthesia Expected: 12/30/2021, Expires: 03/01/2022 [facility] Work Phone: Comment on above: Expected: 12/30/2021 , Expires: 03/01/2022 Start: 2018 COLOGUARD (FIT-DNA) COLOGUARD (FIT-D NA) [facility] Start: 2018 Colonoscopy COLONOSCOPY [facility] Start: 2018 COLORECTAL CANCER SCREENING COLORECTAL CANCER SCREENING [facility] Start: [address] COLONOGRAPHY [facility] Start: 2018 FECAL OCCULT BLOOD FECAL OCCULT BLOO D [facility] Start: 2018 Screening for malign ant neoplasm of colon [facility] Start: 2018 SIGMOIDOSCOPY SIGMOIDOSCOPY [facility] Start: 12-15-2016 End: 12-15-[address] [facility] Work Phone: Start: 12-02-2016 End: 12-02-[address] [facility] Work Phone: Start: 12-02-2016 End: 12-03-2016 Follow Up Appt 2 weeks Follow Up Appt [address] [facility] Work Phone: Start: 03-07-2008 Urine microalbumin profile [facility] Start: 1992 Hepatitis B Vaccine (1 of 3 - 19+ 3-dose series) Hepatitis B Vaccine (1 of 3 - 19+ 3-dose series) [facility] Start: 1992 Pneumococcal Vaccine : 50+ (1 of 2 - PCV) Pneumococcal Vaccine: 50+ (1 of 2 - PCV) [facility] Start: 1991 Anxiety Screening Anxiety Screening [facility] Start: 1983 Glaucoma screening Dilated Retinal E xam [facility] Start: 1983 Hepatitis B screening Urine Al bumin:Creatinine Ratio [facility] Start: 1979 PNEUMOCOCCAL (1 - PCV) PNEUMOCOCCAL (1 - PCV) [facility] Start: 1979 Pneumococcal vaccination Pneum ococcal Vaccine (1 of 2 - PCV) [facility] Start: 1978 COVID-19 VACCINE (#1) COVID-19 VACCI NE (#1) [facility] Start: 01-26-1974 COVID-19 VACCINE (#1) COVID-19 VACCI NE (#1) [facility] Start: 1973 HEPATITIS B (1 of 3 - 3-dose series) HEPATITIS B (1 of 3 - 3-dose series) [facility] COLOGUARD COLOGUARD Lab Ro utine Screening for colon cancer Ordered: 11/01/2023 [facility] Work Phone: Comment on above: Ordered: 11/01/2023 End: 12-30-2022 EMG(NEURO/NI) EMG(NEURO/NI) EMG Routine Paresthesia 1 Occurrences starting 12/30/2021 until 12/30/2022 [facility] Work Phone: Comment on above: 1 Occurrences starti ng 12/30/2021 until 12/30/2022 Hemoglobin.gastroint estin al.lower [Presence] in Stool by Immunoassay IMMUNOCHEMICAL FECAL OCCULT BLOOD TEST Lab Routine Anemia, unspecified type Ordered: 12/19/2024 [facility] Work Phone: Comment on above: Ordered: 12/19/2024 Patient Education Lymphadenopathy [facility] Work Phone: Patient referral [facility] Work Phone: TOXICOLOGY SCREEN, ROUTINE URINE TOXICOLOGY SCREEN, ROUTINE URINE Lab Routine Medication monitoring encounter 12/15/2024 3:10 PM EDT [facility] Immunizations Immunization Date Immunization Notes Care Provider Anel briones 05-27-2018 influenza virus vacc ine, unspecified formulation Cristian Barnett MD Work Phone: [facility] 03-06-2008 tetanus and diphther ia toxoids, adsorbed, preservative free, for adult use (2 Lf of tetanus toxoid and 2 Lf of diphtheria toxoid) Cristian Barnett MD Work Phone: [facility] Payers Date Payer Category Payer Unknown [id number] 2024 Unknown 2024 Self-pay 2014 Medicaid [id number] 2014 Medicare [id number] 2014 Medicare UHC MEDICARE MYC ARE UHC MEDICARE [id number] 2014-Present [phone] [address] [place] [id number] Medicare [id number] 2014 Medicare (Managed Care) [facility] MEDICARE [id number] 2014 Unknown [id number] Medicare MEDICARE PART A B [id number] Unknown [id number] Unknown [id number] Unknown [id number] Unknown [id number] Social History Date Type Detail Facility Start: 07-27-2011 End: 11-22-2024 Tobacco smoking status NHIS Smokes tobacco daily [facility] History of tobacco use Cigarette Smoker C [facility] Start: 12-30-2021 End: 12-15-2024 Alcohol intake Current drinker of alcohol (finding) [facility] Start: 1975 Sex Assigned At Not on file C [facility] Start: 07-27-2011 End: 06-08-2023 Cigarettes smoked current (pack per day) - Reported 1 [facility] Work Phone: Start: 07-27-2011 End: 11-22-2024 Tobacco use and exposure Smokeless tobacco non-user [facility] Start: 02-04-2022 End: 06-08-2023 Tobacco use panel [facility] Work Phone: Adult Depression Screening Assessment 0 [facility] Work Phone: Start: 04-01-2019 Tobacco Use Tobacco Use [facility] Start: 1975 Sex Assigned At Male W [facility] Functional Status Date Assessment Result Facility 11-12-2014 Are you deaf, or do you have serious difficulty hearing No 11/12/2014 2:07 PM Sepideh Gray LPN No [facility] 11-12-2014 Are you blind, or do you have serious difficulty seeing, even when wearing glasses No 11/12/2014 2:07 PM Sepideh Gray LPN No [facility] 11-12-2014 Do you have serious difficulty walking or climbing stairs No 11/12/2014 2:07 PM Sepideh Gray LPN No [facility] 11-12-2014 Do you have difficul ty dressing or bathing No 11/12/2014 2:07 PM EDT Sepideh Mayberry LPN No [facility] 11-12-2014 Because of a physica l, mental, or emotional condition, do you have difficulty doing errands alone such as visiting a physician's office or shopping No 11/12/2014 2:07 PM EDT Sepideh Mayberry LPN No [facility] Mental Status Date Assessment Result Facility 11-12-2014 Because of a physica l, mental, or emotional condition, do you have serious difficulty concentrating, remembering, or making decisions No 11/12/2014 2:07 PM EDT Sepideh Mayberry LPN No [facility] Clinical Notes 05-08-2011 to 12-27-2024 Telephone Encounter - Sepideh Mayberry LPN - 12/27/2024 11:31 AM EDTTelephone Encounter - Sepideh Mayberry LPN - 12/27/2024 11:31 AM Cristian Walsh MD - 12/15/2024 4:38 PM EDT Note Date & Type Note Facility 12-27-2024 Telephone encounter Note Pt notified pf Dr Barnett's message. Pt verbalizes understanding. Pt had just wanted to give PCP a head up. Pt will wait and do procedure at [facility]. Sepideh Mayberry LPN [facility] 12-27-2024 Miscellaneous Notes Pt notified pf Dr Barnett's message. Pt verbalizes understanding. Pt had just wanted to give PCP a head up. Pt will wait and do procedure at [facility]. Sepideh Mayberry LPN Likely would need to be done at one of the hospitals and doubt it could get set up any sooner than next week. 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 Would actually take much longer Pt phoned to let pcp know he was suppose to have his biopsy done today at [facility]. [facility] cancelled and re-scheduled for next Thurs- telling pt the part they need for the CT is stuck in [place]. Pt asking pcp is there any way he can have the biopsy done at the [facility] Specialty building? Please advise pt. [phone] documented in this encounter [facility] 12-27-2024 Telephone encounter Note Likely would need to be done at one of the hospitals and doubt it could get set up any sooner than next week. 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 Would actually take much longer [facility] 12-27-2024 Telephone encounter Note Pt phoned to let pcp know he was suppose to have his biopsy done today at [facility]. [facility] cancelled and re-scheduled for next Thurs- telling pt the part they need for the CT is stuck in [place]. Pt asking pcp is there any way he can have the biopsy done at the [facility] Specialty [facility]? Please advise pt. [phone] [facility] 12-21-2024 Telephone encounter Note Trudy notified. Nupur Green MA December 21, 2024 4:57 PM [facility] 12-21-2024 Miscellaneous Notes Trudy notified. Nupur Green MA December 21, 2024 4:57 PM I can give him a dose of vistaril. Will need someone to drive him. Patient's significant other calls and states that patient is supposed to have have biopsy done 12/27. Patient was told to call PCP to see if something can be ordered to relax patient before procedure? Pharmacy [facility]. Please review and advise, Petty Stack RN documented in this encounter [facility] 12-21-2024 Telephone encounter Note I can give him a dose of vistaril. Will need someone to drive him. [facility] 12-21-2024 Telephone encounter Note Patient's significant other calls and states that patient is supposed to have have biopsy done 12/27. Patient was told to call PCP to see if something can be ordered to relax patient before procedure? Pharmacy is [facility]. Please review and advise, Petty Stack RN [facility] 12-20-2024 Telephone encounter Note Rx sent [facility] 12-20-2024 Miscellaneous Notes Rx sent Trudy- significant other- phoned asking pcp to also refill zofran. Reports pt only has 1 pill left of each of the pended medications. Trudy asking pcp office to phone pt to let him know when Rx's have been sent to the pharmacy. [phone] Patient's significant other calling for refills on pain medications. Significant other states that Dr. Barnett had told patient to call in when he was almost out of pain medications. The patient has been identified by name and date of : Yes Caregiver verified no other encounters exist for this prescription request: Yes Caregiver confirmed with patient/requestor that no other refills are due, in the near future, with this provider at this time: Yes The last office visit in the department: 12/15/2024 Does the patient have a future office visit with this provider/department: Yes 01/24/2025 Requested Prescriptions Pending Prescriptions Disp Refills oxyCODONE ir (OXYIR) 5 mg capsule 0 Sig: Take 1 capsule by mouth every 6 hours as needed for pain. Petty Stack RN December 20, 2024 8:27 AM documented in this encounter [facility] 12-20-2024 Telephone encounter Note Trudy- significant other- phoned asking pcp to also refill zofran. Reports pt only has 1 pill left of each of the pended medications. Trudy asking pcp office to phone pt to let him know when Rx's have been sent to the pharmacy. [phone] [facility] 12-20-2024 Telephone encounter Note Patient's significant other calling for refills on pain medications. Significant other states that Dr. Barnett had told patient to call in when he was almost out of pain medications. The patient has been identified by name and date of : Yes Caregiver verified no other encounters exist for this prescription request: Yes Caregiver confirmed with patient/requestor that no other refills are due, in the near future, with this provider at this time: Yes The last office visit in the department: 12/15/2024 Does the patient have a future office visit with this provider/department: Yes 01/24/2025 Requested Prescriptions Pending Prescriptions Disp Refills oxyCODONE ir (OXYIR) 5 mg capsule 0 Sig: Take 1 capsule by mouth every 6 hours as needed for pain. Petty Stack RN December 20, 2024 8:27 AM [facility] 12-19-2024 Telephone encounter Note [email or web address] message sent [facility] 12-19-2024 Miscellaneous Notes DGSEt message sent Urine culture are still pending. Anemic-folate is low. Iron appears low but is likely more (due to low tibc) related to the nodules he is getting biopsied-an anemia of chronic disease, Do ifobt Add iron to be on safe side and folate Recheck labs in one month. documented in this encounter [facility] 12-19-2024 Telephone encounter Note Urine culture are still pending. Anemic-folate is low. Iron appears low but is likely more (due to low tibc) related to the nodules he is getting biopsied-an anemia of chronic disease, Do ifobt Add iron to be on safe side and folate Recheck labs in one month. [facility] 12-18-2024 Telephone encounter Note Patient notified. Has urine test to bring back to lab. [facility] 12-18-2024 Miscellaneous Notes Patient notified. Has urine test to bring back to lab. Still needs to come into labs and get their urine test. UA and C and s He is slightly anemic. Sodium is low. Recheck anemic labs and sodium. documented in this encounter [facility] 12-18-2024 Telephone encounter Note Still needs to come into labs and get their urine test. UA and C and s He is slightly anemic. Sodium is low. Recheck anemic labs and sodium. [facility] 12-15-2024 Note HNO ID: [id number] Author: CRISTIAN BARNETT MD Service: ? Author Type: Physician Type: Progress Notes Filed: 12/15/2024 16:41 Note Text: Hyun Cain is a 49-year-old male with a history of DM, presenting for opioid management and evaluation of abdominal pain, weight loss, and night sweats. HPI Opioid Management: - Taking opioids for pain management. - Brought medication bottles for verification. - Reports occasional marijuana use. Discussed risks of mixing the two. Again is being worked up for likelky metastatic malignancy. Abdominal Pain: - Left-sided abdominal pain, initially evaluated in the ED on 11/22/2024. - CT scan revealed numerous pulmonary nodules, mediastinal and hilar lymphadenopathy, a small right hepatic low hypodensity, and a large centrally necrotic retroperitoneal and gastric area of lymphadenopathy. - Biopsy initially scheduled for 12/12/2024, rescheduled to 12/27/2024. - Pain has shifted slightly; associated with constipation, no bowel movement for 5-6 days. - Denies abdominal distension. - Reports nausea and emesis when using marijuana. - Decreased appetite, unsure if due to nerves. - Denies hematochezia or melena. - Reports hematuria and weak urinary stream. Weight Loss: - Weight decreased from 178 lbs in October of last year to 160 lbs currently. - Decreased appetite, unsure if due to nerves. Night Sweats: - Reports waking up drenched with night sweats, accompanied by an odor. - Denies cough. Diabetes Mellitus: - Not taking Metformin, reports it doesn't even cross my mind. - Concerns about potential cardiac risks from not taking medication. - Reports occasional pain between ribs. - Long history of smoking, attempting to quit but finds it challenging. MEDICATIONS: Current Outpatient Medications Medication Sig ondansetron orally disintegrating (ZOFRAN ODT) 4 mg disintegrating tablet Take 1 tablet by mouth every 8 hours as needed for nausea/vomiting. RABEprazole (ACIPHEX) 20 mg tablet Take 1 tablet by mouth once daily. oxyCODONE ir (OXYIR) 5 mg capsule Take 5 mg by mouth every 6 hours as needed for pain. No current facility-administered medications for this visit. ALLERGIES: ALLERGIES Allergen Reactions Augmentin [Amoxicil* Diarrhea Bactrim [Sulfametho* Swelling PAST MEDICAL HISTORY Diagnosis Date Diaphragmatic hernia without mention of obstruction or gangrene Dysthymic disorder 07/12/2007 Depression (non-psychotic) Esophageal reflux Legally blind Seizures (HCC) childhood PAST SURGICAL HISTORY Procedure Laterality Date APPENDECTOMY 1975 ESOPHAGOGASTRODUODENOSCOPY TRANSORAL DIAGNOSTIC 07/16/2008 EGD PAST SURGICAL HISTORY OF ORIF arm fracture PAST SURGICAL HISTORY OF 1995 Reconstruction of Rt arm after industrial accident RPR 1ST INGUN HRNA AGE 3 YRS/> REDUCIBLE 1975 Hernia repair, inguinal FAMILY HISTORY Problem Relation Age of Onset Diabetes Mother COPD Mother Cancer Maternal Grandfather Social History Tobacco Use Smoking status: Every Day Current packs/day: 1.00 Average packs/day: 1 pack/day for 24.0 years (24.0 ttl pk-yrs) Types: Cigarettes Smokeless tobacco: Never Vaping Use Vaping status: Never Used Substance Use Topics Alcohol use: Yes Drug use: Yes Frequency: 2.0 times per week Comment: [place] per patient Reviewed current medications, allergies, past medical history, surgical history, family history and social history today. REVIEW OF SYSTEMS Constitutional: (+) unintentional weight loss, (+) decreased appetite, (+) night sweats, (-) fever, (-) chills Cardiovascular: (+) chest pain Respiratory: (-) cough Gastrointestinal: (+) constipation, (+) abdominal pain, (+) vomiting, (-) nausea, (-) melena Genitourinary: (+) hematuria, (+) weak urinary stream HEALTH MAINTENANCE: Reviewed health maintenance issues today and recommended the following in detail. Urine Albumin:Creatinine Ratio Never done Dilated Retinal Exam Never done Hepatitis B Vaccine(1 of 3 - 19+ 3-dose series) Never done Pneumococcal Vaccine: 50+(1 of 2 - PCV) Never done DTaP,Tdap,Td Vaccine(1 - Tdap) due on 03/07/2008 Colorectal Cancer Screening due on 2018 Diabetic Foot Exam due on 12/30/2022 Lung Cancer Screening Never done Shingrix Vaccine(1 of 2) Never done Covid-19 Vaccine( season) Never done LAB REVIEWED: Labs: Tests: Imaging: (11/22/2024) CT Chest and Abdomen: - Innumerable pulmonary nodules in both lungs - Mediastinal and hilar lymphadenopathy - Small right hepatic lobe hypodensity - Large centrally necrotic retroperitoneal and gastric lymphadenopathy - Findings most compatible with primary lung cancer and metastatic disease; differential consideration includes lymphoma. VITALS: BP 102/62 Pulse 111 Wt 72.6 kg (160 lb) SpO2 97% BMI 22.96 kg/m? Last 4 Encounter Wt Readings: Date: Wt: 12/15/2024 72.6 kg (160 lb) 11/22/2024 74.8 kg (more content not included)... [facility] 12-15-2024 History of Presen t illness Narrative Hyun Cain is a 49-year-old male with a history of DM, presenting for opioid management and evaluation of abdominal pain, weight loss, and night sweats. HPI Opioid Management: - Taking opioids for pain management. - Brought medication bottles for verification. - Reports occasional marijuana use. Discussed risks of mixing the two. Again is being worked up for likelky metastatic malignancy. Abdominal Pain: - Left-sided abdominal pain, initially evaluated in the ED on 11/22/2024. - CT scan revealed numerous pulmonary nodules, mediastinal and hilar lymphadenopathy, a small right hepatic low hypodensity, and a large centrally necrotic retroperitoneal and gastric area of lymphadenopathy. - Biopsy initially scheduled for 12/12/2024, rescheduled to 12/27/2024. - Pain has shifted slightly; associated with constipation, no bowel movement for 5-6 days. - Denies abdominal distension. - Reports nausea and emesis when using marijuana. - Decreased appetite, unsure if due to nerves. - Denies hematochezia or melena. - Reports hematuria and weak urinary stream. Weight Loss: - Weight decreased from 178 lbs in October of last year to 160 lbs currently. - Decreased appetite, unsure if due to nerves. Night Sweats: - Reports waking up drenched with night sweats, accompanied by an odor. - Denies cough. Diabetes Mellitus: - Not taking Metformin, reports it doesn't even cross my mind. - Concerns about potential cardiac risks from not taking medication. - Reports occasional pain between ribs. - Long history of smoking, attempting to quit but finds it challenging. MEDICATIONS: Current Outpatient Medications Medication Sig ondansetron orally disintegrating (ZOFRAN ODT) 4 mg disintegrating tablet Take 1 tablet by mouth every 8 hours as needed for nausea/vomiting. RABEprazole (ACIPHEX) 20 mg tablet Take 1 tablet by mouth once daily. oxyCODONE ir (OXYIR) 5 mg capsule Take 5 mg by mouth every 6 hours as needed for pain. No current facility-administered medications for this visit. ALLERGIES: ALLERGIES Allergen Reactions Augmentin [Amoxicil* Diarrhea Bactrim [Sulfametho* Swelling PAST MEDICAL HISTORY Diagnosis Date Diaphragmatic hernia without mention of obstruction or gangrene Dysthymic disorder 07/12/2007 Depression (non-psychotic) Esophageal reflux Legally blind Seizures (HCC) childhood PAST SURGICAL HISTORY Procedure Laterality Date APPENDECTOMY 1975 ESOPHAGOGASTRODUODENOSCOPY TRANSORAL DIAGNOSTIC 07/16/2008 EGD PAST SURGICAL HISTORY OF ORIF arm fracture PAST SURGICAL HISTORY OF 1995 Reconstruction of Rt arm after industrial accident RPR 1ST INGUN HRNA AGE 3 YRS/> REDUCIBLE 1975 Hernia repair, inguinal FAMILY HISTORY Problem Relation Age of Onset Diabetes Mother COPD Mother Cancer Maternal Grandfather Social History Tobacco Use Smoking status: Every Day Current packs/day: 1.00 Average packs/day: 1 pack/day for 24.0 years (24.0 ttl pk-yrs) Types: Cigarettes Smokeless tobacco: Never Vaping Use Vaping status: Never Used Substance Use Topics Alcohol use: Yes Drug use: Yes Frequency: 2.0 times per week Comment: [place] per patient Reviewed current medications, allergies, past medical history, surgical history, family history and social history today. REVIEW OF SYSTEMS Constitutional: (+) unintentional weight loss, (+) decreased appetite, (+) night sweats, (-) fever, (-) chills Cardiovascular: (+) chest pain Respiratory: (-) cough Gastrointestinal: (+) constipation, (+) abdominal pain, (+) vomiting, (-) nausea, (-) melena Genitourinary: (+) hematuria, (+) weak urinary stream HEALTH MAINTENANCE: Reviewed health maintenance issues today and recommended the following in detail. Urine Albumin:Creatinine Ratio Never done Dilated Retinal Exam Never done Hepatitis B Vaccine(1 of 3 - 19+ 3-dose series) Never done Pneumococcal Vaccine: 50+(1 of 2 - PCV) Never done DTaP,Tdap,Td Vaccine(1 - Tdap) due on 03/07/2008 Colorectal Cancer Screening due on 2018 Diabetic Foot Exam due on 12/30/2022 Lung Cancer Screening Never done Shingrix Vaccine(1 of 2) Never done Covid-19 Vaccine() Never done LAB REVIEWED: Labs: Tests: Imaging: (11/22/2024) CT Chest and Abdomen: - Innumerable pulmonary nodules in both lungs - Mediastinal and hilar lymphadenopathy - Small right hepatic lobe hypodensity - Large centrally necrotic retroperitoneal and gastric lymphadenopathy - Findings most compatible with primary lung cancer and metastatic disease; differential consideration includes lymphoma. VITALS: BP 102/62 Pulse 111 Wt 72.6 kg (160 lb) SpO2 97% BMI 22.96 kg/m Last 4 Encounter Wt Readings: Date: Wt: 12/15/2024 72.6 kg (160 lb) 11/22/2024 74.8 kg (165 lb) 02/14/2024 79.8 kg (176 lb) 11/01/2023 80.7 kg (178 lb) PHYSICAL EXAMINATION: GENERAL: NAD, alert and oriented. SKIN: Unremarkable, no rash or skin lesions. HEAD: Normocephalic. NECK: Supple, no lymphadenopathy, normal thyroid, no carotid bruits. LUNGS: Clear to auscultation bilaterally, no wheezes/rhonchi/rales. HEART: Regular rate and rhythm, no murmurs. No ectopy. EXTREMITIES: Normal, no deformities, no skin discoloration, no edema. ABDOMEN: Soft, bowel sounds present, no masses palpable, non-tender, no rebound tenderness. NEURO: Awake, alert and oriented x3, cranial nerves II-XII grossly intact, normal gait, no involuntary motions. ASSESSMENT AND PLAN 1. Hilar lymphadenopathy (R59.0) 2. Lymphadenopathy, abdominal (R59.0) 3. Lung nodules (R91.8) - CT scan revealed innumerable pulmonary nodules, mediastinal and hilar lymphadenopathy, small right hepatic low hypodensity, and large centrally necrotic retroperitoneal and gastric lymphadenopathy, suggestive of primary lung cancer with metastatic disease. - Differential diagnosis includes pulmonary metastasis or lymphoma. - Biopsy initially scheduled for December 12, now rescheduled to December 27. - Ordered CBC, CMP, ESR, and CRP to assess for inflammation and organ function. - Follow-up with hematology and pulmonology. - We can fill pain meds for now given likely malignancy. Controlled substance agreement given. Urine tox. It may show THC. He states will avoid using together. Use is just prn. Aware of risks and benefits. 4. Chest wall pain (R07.89) - No significant respiratory distress or cough noted. - Continue current pain management regimen. 5. Tobacco abuse (Z72.0) - Patient continues to smoke; advised on the risks associated with tobacco use, especially in the context of suspected malignancy. 6. Gross hematuria (R31.0) - Reports occasional hematuria and weak urinary stream. - Ordered urinalysis to evaluate for underlying causes. 7. Acute constipation (K59.00) - Constipation likely secondary to opioid use. - Recommended goge-vuu-kwbmykk stool softeners such as Miralax or Colace. - Ordered KUB to rule out bowel obstruction. 8. Night sweats (R61) - Reports severe night sweats. - Ordered ESR and CRP to assess for underlying inflammatory or infectious processes. 9. Medication monitoring encounter (Z51.81) - Current opioid usage is appropriate; 9 pills remaining from last prescription. - Discussed risks of opioid use, including addiction, overdose, and interactions with other substances. - Signed opioid consent form. - Ordered urine toxicology screen. - Follow-up in 6 weeks to reassess pain management and medication use. (See patient after visit summary for additional instructions to patient) Cristian Barnett MD Recording using [employer] software for draft documentation of the visit was discussed with the patient/authorized footwear sales representative; all questions welcomed and answered. Patient/authorized footwear sales representative agreed to proceed documented in this encounter [facility] 12-15-2024 History of Presen t illness Narrative Radiology Service Progress Note PATIENT NAME: Hyun Cain DATE OF SERVICE: December 15, 2024 TIME: 3:14 PM PATIENT IDENTITY VERIFICATION COMPLETED USING TWO (2) IDENTIFIERS: Name and Date of confirmed by patient verbally. FALL SCREENING: Has the patient had 2 falls in the last year or 1 fall with injury or currently using an Ambulatory Assistive Device (Walker, Cane, Wheelchair, Crutches, etc.)? No PATIENT GENDER DATA: Assigned male at PATIENT RELEVANT IMPLANT DATA REVIEWED: Not Applicable PATIENT PRESENTS WITH AN IMPLANTABLE OR ATTACHED SPOT MACHINE OPERATOR: No RADIOLOGY DEPARTMENT: General X-ray: Exam(s) Completed: Abdomen X-Ray: Abdomen PERIPHERAL IV DATA: Not applicable SIGNED BY: RT Jerri([place]) December 15, 2024 3:14 PM documented in this encounter [facility] 12-15-2024 Note HNO ID: [id number] Author: JAVIER ROMERO RT([place]) Service: Radiology Author Type: Technologist Type: Progress Notes Filed: 12/15/2024 15:24 Note Text: Radiology Service Progress Note PATIENT NAME: Hyun Cain DATE OF SERVICE: December 15, 2024 TIME: 3:14 PM PATIENT IDENTITY VERIFICATION COMPLETED USING TWO (2) IDENTIFIERS: Name and Date of confirmed by patient verbally. FALL SCREENING: Has the patient had 2 falls in the last year or 1 fall with injury or currently using an Ambulatory Assistive Device (Walker, Cane, Wheelchair, Crutches, etc.)? No PATIENT GENDER DATA: Assigned male at PATIENT RELEVANT IMPLANT DATA REVIEWED: Not Applicable PATIENT PRESENTS WITH AN IMPLANTABLE OR ATTACHED SPOT MACHINE OPERATOR: No RADIOLOGY DEPARTMENT: General X-ray: Exam(s) Completed: Abdomen X-Ray: Abdomen PERIPHERAL IV DATA: Not applicable SIGNED BY: SAUNDRA GuthrieR) December 15, 2024 3:14 PM [facility] 12-15-2024 Instructions Cristian Barnett MD - 12/15/2024 2:51 PM EDT - Continue your current opioid pain medication as prescribed; obtain refills only from this office and avoid using other opioids or illegal drugs. You have nine pills left--call when you re close to running out. - Start a stool softener (for example, Miralax or Colace) with your pain medication to help relieve constipation. - Provide a urine sample for a urine drug screen and urinalysis when you go for your lab work. - Have blood drawn today or tomorrow for a complete blood count (CBC), comprehensive metabolic panel (CMP), erythrocyte sedimentation rate (ESR), and C-reactive protein (CRP). - Obtain a stat abdominal x-ray (KUB) as ordered to check for possible obstruction. - Consider restarting metformin to help control your blood sugar--discuss this with your primary provider or at your next visit. - Attend your scheduled biopsy on December 27; arrange for transportation and someone to stay with you for at least 24 hours afterward. - If your abdominal pain becomes severe, or if you develop fever, chills, or other concerning symptoms, go to the emergency department. - Schedule a follow-up appointment in about six weeks to reassess your pain control and opioid use; call our office to set the date when you need your next refill. documented in this encounter [facility] 11-28-2024 Telephone encounter Note Patient's significant other calls and is asking if provider can send in prescription for zofran. Bottle reads take 4 mg q8h prn for nausea. Patient was prescribed this when he was in ER. .Please review and advise, Petty Stack RN [facility] 11-28-2024 Miscellaneous Notes Patient's significant other calls and is asking if provider can send in prescription for zofran. Bottle reads take 4 mg q8h prn for nausea. Patient was prescribed this when he was in ER. .Please review and advise, Petty Stack RN [facility] [facility] 11-23-2024 Telephone encounter Note CydneyienTrudy hinton, phoned for message with patient present. Given provider's message below. Trudy states patient thought his blood sugars were good and just stopped taking the metformin. States patient will start taking metformin again. Patient states he still has metformin and will let pcp know when he runs out. [facility] 11-23-2024 Miscellaneous Notes CydneyienTrudy hinton, phoned for message with patient present. Given provider's message below. Trudy states patient thought his blood sugars were good and just stopped taking the metformin. States patient will start taking metformin again. Patient states he still has metformin and will let pcp know when he runs out. Left message to call and speak with nurse. Sugars are up. He should still be on metformin. Is there a reason he is not taking it? documented in this encounter [facility] 11-23-2024 Telephone encounter Note Left message to call and speak with nurse. [facility] 11-23-2024 Telephone encounter Note Sugars are up. He should still be on metformin. Is there a reason he is not taking it? [facility] 11-22-2024 Note HNO ID: [id number] Author: CRISTIAN BARNETT MD Service: ? Author Type: Physician Type: Progress Notes Filed: 11/22/2024 11:31 Note Text: Patient presents with: ER F/U HPI: Patient presents today for office visit for ER FOLLOW UP: Reason for visit: Abdominal pain, left sided Which facility: [facility] Date of visit: 11/12/24 Diagnosis: Lymphadenopathy Testing done: Labs and CT scan.Treatment given: IV fluids, antinausea and pain meds Current symptoms: Having chest pain currently. Mentions a strange odor he's had since . Ct of chest/abd/pelvis Showed innumerable pulmonary nodules throughout both lungs, with mediastinal and hilar lymphadenopathy, most compatible with primary lung neoplasm and marielena metastatic disease. Pulmonary metastases or lymphoma are additional considerations. Small right hepatit lobe hypodensity and large centrally necrotic retroperitoneal and gastric lymphadenopathy, compatible to hepatic and marielena metastatic disease. The ER doc in [facility] referred to [facility] onc. Has been seen by [facility] on 11/14. They are going to attempt to do a radiology guided biopsy on the . No fever. Sometimes is chills. No cough. No swollen gland. No significant urinary or bowel changes. No shortness of breath. Occasional cough. Still smoking cigarettes and thc. Discussed cessation, including risks of continued use. Offered assistance to help quit if patient desires. Has had an 11 lb weight loss since last summer. Given oxycodone and zofran just prn. Saw ent and having hearing issues. MEDICATIONS: Current Outpatient Medications Medication Sig ondansetron orally disintegrating (ZOFRAN ODT) 4 mg disintegrating tablet Take 4 mg by mouth. oxyCODONE IR (ROXICODONE) 5 mg immediate release tablet take 1 tablet by mouth every 6 hours if needed for pain for 3 days RABEprazole (ACIPHEX) 20 mg tablet Take 1 tablet by mouth once daily. No current facility-administered medications for this visit. ALLERGIES: ALLERGIES Allergen Reactions Augmentin [Amoxicil* Diarrhea Bactrim [Sulfametho* Swelling PAST MEDICAL HISTORY Diagnosis Date Diaphragmatic hernia without mention of obstruction or gangrene Dysthymic disorder 07/12/2007 Depression (non-psychotic) Esophageal reflux Legally blind Seizures (HCC) childhood PAST SURGICAL HISTORY Procedure Laterality Date APPENDECTOMY 1975 ESOPHAGOGASTRODUODENOSCOPY TRANSORAL DIAGNOSTIC 07/16/2008 EGD PAST SURGICAL HISTORY OF ORIF arm fracture PAST SURGICAL HISTORY OF 1995 Reconstruction of Rt arm after industrial accident RPR 1ST INGUN HRNA AGE 3 YRS/> REDUCIBLE 1975 Hernia repair, inguinal FAMILY HISTORY Problem Relation Age of Onset Diabetes Mother COPD Mother Cancer Maternal Grandfather Social History Tobacco Use Smoking status: Every Day Current packs/day: 1.00 Average packs/day: 1 pack/day for 24.0 years (24.0 ttl pk-yrs) Types: Cigarettes Smokeless tobacco: Never Vaping Use Vaping status: Never Used Substance Use Topics Alcohol use: Yes Drug use: Yes Frequency: 2.0 times per week Comment: [place] per patient Reviewed current medications, allergies, past medical history, surgical history, family history and social history today. REVIEW OF SYSTEMS All other reviewed and negative other than HPI. VITALS: BP 108/86 Pulse 100 Ht 177.8 cm (5' 10) Wt 74.8 kg (165 lb) SpO2 96% BMI 23.68 kg/m? Last 4 Encounter Wt Readings: Date: Wt: 02/14/2024 79.8 kg (176 lb) 11/01/2023 80.7 kg (178 lb) 02/04/2022 83.5 kg (184 lb) 12/30/2021 84.8 kg (187 lb) PHYSICAL EXAMINATION: General appearance: Well appearing, alert, in no acute distress, well-hydrated, well nourished. Skin: Skin color, texture, turgor normal, no suspicious rashes or lesions Head: Normocephalic, no masses, lesions, tenderness or abnormalities Lungs: Lungs clear to auscultation. No wheezing, rhonchi, rales Heart: RRR without murmur, gallop, or rubs. No ectopy Abdomen: Normal abdominal exam, Abdomen soft, non-tender. Bowel sounds normal. No masses, organomegaly Extremities: No deformities, edema, skin discoloration, clubbing or cyanosis. Good capillary refill. ASSESSMENT/PLAN: 1. Lung nodules - ICD9: 793.19, ICD10: R91.8 (primary diagnosis) - await biopsy. Currently managed by pulmonary. 2. Controlled type 2 diabetes mellitus without complication, without long-term current use of insulin (HCC) - ICD9: 250.00, - wants to hold on meds unless he has to - HEMOGLOBIN A1C 3. Hyperlipidemia, mixed - ICD9: 272.2, ICD10: E78.2 - wants to follow 4. Tobacco abuse - ICD9: 305.1, ICD10: Z72.0 - Cessation encouraged. - Physiologic and physical aspects of tobacco addiction as well as strategies for quitting were discussed. - Counseling was given focusing on the harmful effects of this addiction especially given the patient's medical condition(s) which will be worsened because (more content not included)... [facility] 11-22-2024 History of Presen t illness Narrative Patient presents with: ER F/U HPI: Patient presents today for office visit for ER FOLLOW UP: Reason for visit: Abdominal pain, left sided Which facility: [facility] Date of visit: 11/12/24 Diagnosis: Lymphadenopathy Testing done: Labs and CT scan.Treatment given: IV fluids, antinausea and pain meds Current symptoms: Having chest pain currently. Mentions a strange odor he's had since . Ct of chest/abd/pelvis Showed innumerable pulmonary nodules throughout both lungs, with mediastinal and hilar lymphadenopathy, most compatible with primary lung neoplasm and marielena metastatic disease. Pulmonary metastases or lymphoma are additional considerations. Small right hepatit lobe hypodensity and large centrally necrotic retroperitoneal and gastric lymphadenopathy, compatible to hepatic and marielena metastatic disease. The ER doc in [facility] referred to [facility]. Has been seen by [facility] on 11/14. They are going to attempt to do a radiology guided biopsy on the third. No fever. Sometimes is chills. No cough. No swollen gland. No significant urinary or bowel changes. No shortness of breath. Occasional cough. Still smoking cigarettes and thc. Discussed cessation, including risks of continued use. Offered assistance to help quit if patient desires. Has had an 11 lb weight loss since last summer. Given oxycodone and zofran just prn. Saw ent and having hearing issues. MEDICATIONS: Current Outpatient Medications Medication Sig ondansetron orally disintegrating (ZOFRAN ODT) 4 mg disintegrating tablet Take 4 mg by mouth. oxyCODONE IR (ROXICODONE) 5 mg immediate release tablet take 1 tablet by mouth every 6 hours if needed for pain for 3 days RABEprazole (ACIPHEX) 20 mg tablet Take 1 tablet by mouth once daily. No current facility-administered medications for this visit. ALLERGIES: ALLERGIES Allergen Reactions Augmentin [Amoxicil* Diarrhea Bactrim [Sulfametho* Swelling PAST MEDICAL HISTORY Diagnosis Date Diaphragmatic hernia without mention of obstruction or gangrene Dysthymic disorder 07/12/2007 Depression (non-psychotic) Esophageal reflux Legally blind Seizures (HCC) childhood PAST SURGICAL HISTORY Procedure Laterality Date APPENDECTOMY 1975 ESOPHAGOGASTRODUODENOSCOPY TRANSORAL DIAGNOSTIC 07/16/2008 EGD PAST SURGICAL HISTORY OF ORIF arm fracture PAST SURGICAL HISTORY OF 1995 Reconstruction of Rt arm after industrial accident RPR 1ST INGUN HRNA AGE 3 YRS/> REDUCIBLE 1975 Hernia repair, inguinal FAMILY HISTORY Problem Relation Age of Onset Diabetes Mother COPD Mother Cancer Maternal Grandfather Social History Tobacco Use Smoking status: Every Day Current packs/day: 1.00 Average packs/day: 1 pack/day for 24.0 years (24.0 ttl pk-yrs) Types: Cigarettes Smokeless tobacco: Never Vaping Use Vaping status: Never Used Substance Use Topics Alcohol use: Yes Drug use: Yes Frequency: 2.0 times per week Comment: [place] per patient Reviewed current medications, allergies, past medical history, surgical history, family history and social history today. REVIEW OF SYSTEMS All other reviewed and negative other than HPI. VITALS: BP 108/86 Pulse 100 Ht 177.8 cm (5' 10) Wt 74.8 kg (165 lb) SpO2 96% BMI 23.68 kg/m Last 4 Encounter Wt Readings: Date: Wt: 02/14/2024 79.8 kg (176 lb) 11/01/2023 80.7 kg (178 lb) 02/04/2022 83.5 kg (184 lb) 12/30/2021 84.8 kg (187 lb) PHYSICAL EXAMINATION: General appearance: Well appearing, alert, in no acute distress, well-hydrated, well nourished. Skin: Skin color, texture, turgor normal, no suspicious rashes or lesions Head: Normocephalic, no masses, lesions, tenderness or abnormalities Lungs: Lungs clear to auscultation. No wheezing, rhonchi, rales Heart: RRR without murmur, gallop, or rubs. No ectopy Abdomen: Normal abdominal exam, Abdomen soft, non-tender. Bowel sounds normal. No masses, organomegaly Extremities: No deformities, edema, skin discoloration, clubbing or cyanosis. Good capillary refill. ASSESSMENT/PLAN: 1. Lung nodules - ICD9: 793.19, ICD10: R91.8 (primary diagnosis) - await biopsy. Currently managed by pulmonary. 2. Controlled type 2 diabetes mellitus without complication, without long-term current use of insulin (HCC) - ICD9: 250.00, - wants to hold on meds unless he has to - HEMOGLOBIN A1C 3. Hyperlipidemia, mixed - ICD9: 272.2, ICD10: E78.2 - wants to follow 4. Tobacco abuse - ICD9: 305.1, ICD10: Z72.0 - Cessation encouraged. - Physiologic and physical aspects of tobacco addiction as well as strategies for quitting were discussed. - Counseling was given focusing on the harmful effects of this addiction especially given the patient's medical condition(s) which will be worsened because of the chemicals in tobacco. 5. Lymphadenopathy, abdominal - ICD9: 785.6, ICD10: R59.0 - as above. 6. Hilar lymphadenopathy - ICD9: 785.6, ICD10: R59.0 - as above. Cristian Barnett MD documented in this encounter [facility] 11-14-2024 Evaluation note Diagnosis Onset Date Resolution Abnormal screening computed tomography (CT) of chest acute November 14, 2024 10 :48am Multiple lung nodules on CT acute November 14, 2024 10 :48am [facility] Work Phone: 1(162) 219-341005-01-2025 Telephone encounter Note* Telephone Encounter - Marshall Tran RN - 11/09/2024 12:27 PM EDT See triage. Advised ER now. Patient agreeable to call [facility] and be seen at [facility]. Marshall Tran RN [facility]05-01-2025 Miscellaneous Notes* Telephone Encounter - Marshall Tran RN - 11/09/2024 12:27 PM EDT See triage. Advised ER now. Patient agreeable to call squad and be seen at [facility]. Marshall Tran RN * Telephone Encounter - Monserrat Smart RN - 11/09/2024 11:52 AM EDT GirlfriendTrudy, reports pt has been having CP- below rib, left side of chest for 2 weeks that comes and goes, sharp, piercing, stabbing, lasts less than a minute. Radiates to middle of chest. Reports pt does not have CP near heart, no pain that radiates to neck, arm or jaw. No heaviness, orpressure. No SOB. Reports pt thinks it's a pulled muscle, or maybe he slept wrong. Reports pt has had no injury in the left chest area. Reports pt has hx of acid reflux but doesn't think it's that. The pain is not worse after eating. Advised girlfriend if patient develops CP, SOB, dizziness, needs to go to ER. Girlfriend agreeable. Girlfriend asking to schedule appt with pcp. Advised girlfriend to have pt return call to triage nurse so we can triage his symptoms. Girlfriend agreeable. documented [facility] Telephone encounter Note * Telephone Encounter - Marshall Tran RN - 11/09/2024 12:21 PM EDT Patient calls for CP. Nurse triage recommends call EMS now. Patient agreeable. Care advice reviewedwith verbalized understanding. Reason for Disposition [1] Chest pain lasts > 5 minutes AND [2] age > 44 Answer Assessment - Initial Assessment Questions 1. LOCATION: Chest at the level under left breast just above and below the left rib. 2. RADIATION: Radiates to the back 3. ONSET: 5 days ago 4. PATTERN:Constant moderate pain and then sharp shooting severe pain that occurs frequently and lasts a couple seconds or minutes. 5. DURATION: [place] but sharp shooting lasts a couple of seconds to minutes. 6. SEVERITY: - MODERATE (4-7): Interferes with normal activities or awakens from sleep. TO - SEVERE (8-10): Excruciating pain, unable to do any normal activities. 7. CARDIAC RISK FACTORS: Patient denies angina, prior heart attack; diabetes, high blood pressure, high cholesterol, smoker, or strong family history of heart disease. Tobacco use listed on file. 8. PULMONARY RISK FACTORS: Patient denies blood clots in lung, asthma, emphysema, 9. CAUSE: Patient has no idea. 10. OTHER SYMPTOMS: Vomiting when pain began. No dizziness, nausea, sweating, fever, difficulty breathing, cough Protocols used: Chest [id number] [facility]05-01-2025 Miscellaneous Notes* Telephone Encounter - Marshall Tran RN - 11/09/2024 12:21 PM EDT Patient calls for CP. Nurse triage recommends call EMS now. Patient agreeable. Care advice reviewedwith verbalized understanding. Reason for Disposition [1] Chest pain lasts > 5 minutes AND [2] age > 44 Answer Assessment - Initial Assessment Questions 1. LOCATION: Chest at the level under left breast just above and below the left rib. 2. RADIATION: Radiates to the back 3. ONSET: 5 days ago 4. PATTERN:Constant moderate pain and then sharp shooting severe pain that occurs frequently and lasts a couple seconds or minutes. 5. DURATION: [place] but sharp shooting lasts a couple of seconds to minutes. 6. SEVERITY: - MODERATE (4-7): Interferes with normal activities or awakens from sleep. TO - SEVERE (8-10): Excruciating pain, unable to do any normal activities. 7. CARDIAC RISK FACTORS: Patient denies angina, prior heart attack; diabetes, high blood pressure, high cholesterol, smoker, or strong family history of heart disease. Tobacco use listed on file. 8. PULMONARY RISK FACTORS: Patient denies blood clots in lung, asthma, emphysema, 9. CAUSE: Patient has no idea. 10. OTHER SYMPTOMS: Vomiting when pain began. No dizziness, nausea, sweating, fever, difficulty breathing, cough Protocols used: Chest Grpl-DEHYF-ID documented in this encounterUniversity [facility]25 Telephone encounter Note * Telephone Encounter - Monserrat Smart RN - 11/09/2024 11:52 AM EDT GirlfriendTrudy, reports pt has been having CP- below rib, left side of chest for 2 weeks that comes and goes, sharp, piercing, stabbing, lasts less than a minute. Radiates to middle of chest. Reports pt does not have CP near heart, no pain that radiates to neck, arm or jaw. No heaviness, orpressure. No SOB. Reports pt thinks it's a pulled muscle, or maybe he slept wrong. Reports pt has had no injury in the left chest area. Reports pt has hx of acid reflux but doesn't think it's that. The pain is not worse after eating. Advised girlfriend if patient develops CP, SOB, dizziness, needs to go to ER. Girlfriend agreeable. Girlfriend asking to schedule appt with pcp. Advised girlfriend to have pt return call to triage nurse so we can triage his symptoms. Girlfriend agreeable. [facility]03-26-2025 Telephone encounter Note* Telephone Encounter - Anna Anton LPN - 10/04/2024 8:14 AM EDT The patient has been identified by name and date of : Yes Caregiver verified no other encounters exist for this prescription request: Yes Caregiver confirmed with patient/requestor that no other refills are due, in the near future, with this provider at this time: Yes The last office visit in the department: 02/14/2024 Does the patient have a future office visit with this provider/department: No no future appt scheduled, girl friend aware need to schedule follow up appt Requested Prescriptions Pending Prescriptions Disp Refills RABEprazole (ACIPHEX) 20 mg tablet 90 tablet 3 Sig: Take 1 tablet by mouth once daily. Anna Anton LPN October 04, 2024 8:15 AM [facility]03-26-2025 Miscellaneous Notes* Telephone Encounter - Anna Anton LPN - 10/04/2024 8:14 AM EDT The patient has been identified by name and date of : Yes Caregiver verified no other encounters exist for this prescription request: Yes Caregiver confirmed with patient/requestor that no other refills are due, in the near future, with this provider at this time: Yes The last office visit in the department: 02/14/2024 Does the patient have a future office visit with this provider/department: No no future appt scheduled, girl friend aware need to schedule follow up appt Requested Prescriptions Pending Prescriptions Disp Refills RABEprazole (ACIPHEX) 20 mg tablet 90 tablet 3 Sig: Take 1 tablet by mouth once daily. Anna Anton LPN October 04, 2024 8:15 AM documented in this encounterUniversity [facility]08-07-2024 Telephone encounter Note * Telephone Encounter - Osbaldo Poe LPN - 02/16/2024 9:05 AM EDT Spoke with pt and information listed below given. Pt verbalizes understanding. 3 month FU apt booked and pt requested an apt reminder be mailed to him. Done. Osbaldo Poe LPN [facility]08-07-2024 Miscellaneous Notes* Telephone Encounter - Osbaldo Poe LPN - 02/16/2024 9:05 AM EDT Spoke with pt and information listed below given. Pt verbalizes understanding. 3 month FU apt booked and pt requested an apt reminder be mailed to him. Done. Osbaldo Poe LPN * Telephone Encounter - Cristian Barnett MD - 02/16/2024 8:03 AM EDT Sugars remain in diabetic range. Start the metformin he has at home. Follow up in three months. His lipids are right on the border with a 7.4% heart disease risk. If he wants to watch the cholesterol in his diet, we can recheck it down the road and hold on adding meds. documented in this encounterUniversity [facility]als [facility]08-07-2024 Telephone encounter Note * Telephone Encounter - Cristian Barnett MD - 02/16/2024 8:03 AM EDT Sugars remain in diabetic range. Start the metformin he has at home. Follow up in three months. His lipids are right on the border with a 7.4% heart disease risk. If he wants to watch the cholesterol in his diet, we can recheck it down the road and hold on adding meds. [facility]08-05-2024 NoteHNO ID: [id number] Author: CRISTIAN BARNETT MD Service: ? Author Type: Physician Type: Progress Notes Filed: 02/14/2024 16:01 Note Text: Patient presents with: Follow Up HPI: Patient presents today for office visit for follow up. Recently diagnosed with DM. Michelle had ordered labs and started on meds. Discussed dm management. Does not have a meter. Suggested we can recheck labs and determine if still needed since he has made changes in his diet. No chest pain or shortness of breath. No symptoms. Lipids: Was given Crestor and caused him to have headaches. Headaches have since went away but did take a little while. Denies that this was a flare of his migraines. Did not start the new atorvastatin that he was ordered wanted to see PCP first. Diabetes: Didn't start the metformin he was given. States that his mother has taken this medication and it made her really sick. Doesn't check glucose at home. Doesn't feel that he could afford to either due to cost. Not drinking much pop anymore at all unless goes out to eat which isn't often anymore. Would like to have right ear checked today it has been bothersome. Please have patient stop the cholesterol medicine for 2 weeks. He has a history of migraines and I want to make sure that the headaches are completely gone before starting a atorvastatin 40 mg daily. It may be a flare of his migraines. I want to make sure that it is the rosuvastatin before we listed as an intolerance. The headaches should resolve in 4 to 5 days completely if it is the rosuvastatin. A atorvastatin was ordered and is at his pharmacy. The 10-year ASCVD risk score (Narda DK, et al., 2019) is: 8.1% Values used to calculate the score: Age: 48 years Sex: Male Is Non- : No Diabetic: No Tobacco smoker: Yes Systolic Blood Pressure: 122 mmHg Is BP treated: No HDL Cholesterol: 38 mg/dL Total Cholesterol: 180 mg/dL MEDICATIONS: Current Outpatient Medications Medication Sig atorvastatin (LIPITOR) 40 mg tablet Take 1 tablet by mouth once daily. RABEprazole (ACIPHEX) 20 mg tablet Take 1 tablet by mouth once daily. metFORMIN ER (GLUCOPHAGE XR) 750 mg 24 hr tablet Take 1 tablet by mouth daily with breakfast. No current facility-administered medications for this visit. ALLERGIES: ALLERGIES Allergen Reactions Augmentin [Amoxicil* Diarrhea Bactrim [Sulfametho* Swelling PAST MEDICAL HISTORY No date: Diaphragmatic hernia without mention of obstruction or gangrene 07/12/2007: Dysthymic disorder Comment: Depression (non-psychotic) No date: Esophageal reflux No date: Legally blind No date: Seizures (HCC) Comment: childhood PAST SURGICAL HISTORY 1975: APPENDECTOMY 07/16/2008: ESOPHAGOGASTRODUODENOSCOPY TRANSORAL DIAGNOSTIC Comment: EGD No date: PAST SURGICAL HISTORY OF Comment: ORIF arm fracture 1996: PAST SURGICAL HISTORY OF Comment: Reconstruction of Rt arm after industrial accident 1976: RPR 1ST INGUN HRNA AGE 3 YRS/> REDUCIBLE Comment: Hernia repair, inguinal FAMILY HISTORY Problem Relation Age of Onset Diabetes Mother COPD Mother Cancer Maternal Grandfather Social History Tobacco Use Smoking status: Every Day Packs/day: 1.00 Years: 24.00 Additional pack years: 0.00 Total pack years: 24.00 Types: Cigarettes Smokeless tobacco: Never Vaping Use Vaping Use: Never used Substance Use Topics Alcohol use: Yes Drug use: Yes Frequency: 2.0 times per week Comment: [place] per patient Reviewed current medications, allergies, past medical history, surgical history, family history and social history today. REVIEW OF SYSTEMS All other reviewed and negative other than HPI. HEALTH MAINTENANCE: Reviewed health maintenance issues today and recommended the following in detail. Anxiety Screening Never done Colorectal Cancer Screening due on 2018 Lung Cancer Screening Never done VITALS: BP 122/92 Pulse 101 Wt 79.8 kg (176 lb) SpO2 95% BMI 25.25 kg/m? Last 4 Encounter Wt Readings: Date: Wt: 11/01/2023 80.7 kg (178 lb) 02/04/2022 83.5 kg (184 lb) 12/30/2021 84.8 kg (187 lb) 01/16/2021 84.4 kg (186 lb) PHYSICAL EXAMINATION: General appearance: Well appearing, alert, in no acute distress, well-hydrated, well nourished. Skin: Skin color, texture, turgor normal, no suspicious rashes or lesions Head: Normocephalic, no masses, lesions, tenderness or abnormalities Lungs: Lungs clear to auscultation. No wheezing, rhonchi, rales Heart: RRR without murmur, gallop, or rubs. No ectopy Abdomen: Normal abdominal exam, Abdomen soft, non-tender. Bowel sounds normal. No masses, organomegaly Extremities: No deformities, edema, skin discoloration, clubbing or cyanosis. Good capillary refill. Musculoskeletal: No joint swelling, deformity, or tenderness ASSESSMENT/PLAN: 1. Controlled type 2 diabetes mellitus without complication, without long-term current use of insulin (HCC) (more content not included)...[facility]08-05-2024 History of Present illness Narrative* Cristian Barnett MD - 02/14/2024 2:30 PM EDT Patient presents with: Follow Up HPI: Patient presents today for office visit for follow up. Recently diagnosed with DM. Michelle had ordered labs and started on meds. Discussed dm management. Does not have a meter. Suggested we can recheck labs and determine if still needed since he has made changes in his diet. No chest pain or shortness of breath. No symptoms. Lipids: Was given Crestor and caused him to have headaches. Headaches have since went away but did take a little while. Denies that this was a flare of his migraines. Did not start the new atorvastatin that he was ordered wanted to see PCP first. Diabetes: Didn't start the metformin he was given. States that his mother has taken this medicationand it made her really sick. Doesn't check glucose at home. Doesn't feel that he could afford to either due to cost. Not drinking much pop anymore at all unless goes out to eat which isn't often anymore. Would like to have right ear checked today it has been bothersome. Please have patient stop the cholesterol medicine for 2 weeks. He has a history of migraines and I want to make sure that the headaches are completely gone before starting a atorvastatin 40 mg daily. It may be a flare of his migraines. I want to make sure that it is the rosuvastatin before we listed as an intolerance. The headaches should resolve in 4 to 5 days completely if it is the rosuvastatin. A atorvastatin was ordered and is at his pharmacy. The 10-year ASCVD risk score ([place] DK, et al., 2019) is: 8.1% Values used to calculate the score: Age: 48 years Sex: Male Is Non- : No Diabetic: No Tobacco smoker: Yes Systolic Blood Pressure: 122 mmHg Is BP treated: No HDL Cholesterol: 38 mg/dL Total Cholesterol: 180 mg/dL MEDICATIONS: Current Outpatient Medications Medication Sig atorvastatin (LIPITOR) 40 mg tablet Take 1 tablet by mouth once daily. RABEprazole (ACIPHEX) 20 mg tablet Take 1 tablet by mouth once daily. metFORMIN ER (GLUCOPHAGE XR) 750 mg 24 hr tablet Take 1 tablet by mouth daily with breakfast. No current facility-administered medications for this visit. ALLERGIES: ALLERGIES Allergen Reactions Augmentin [Amoxicil* Diarrhea Bactrim [Sulfametho* Swelling PAST MEDICAL HISTORY No date: Diaphragmatic hernia without mention of obstruction or gangrene 07/12/2007: Dysthymic disorder Comment: Depression (non-psychotic) No date: Esophageal reflux No date: Legally blind No date: Seizures (HCC) Comment: childhood PAST SURGICAL HISTORY 1975: APPENDECTOMY 07/16/2008: ESOPHAGOGASTRODUODENOSCOPY TRANSORAL DIAGNOSTIC Comment: EGD No date: PAST SURGICAL HISTORY OF Comment: ORIF arm fracture 1996: PAST SURGICAL HISTORY OF Comment: Reconstruction of Rt arm after industrial accident 1975: RPR 1ST INGUN HRNA AGE 3 YRS/> REDUCIBLE Comment: Hernia repair, inguinal FAMILY HISTORY Problem Relation Age of Onset Diabetes Mother COPD Mother Cancer Maternal Grandfather Social History Tobacco Use Smoking status: Every Day Packs/day: 1.00 Years: 24.00 Additional pack years: 0.00 Total pack years: 24.00 Types: Cigarettes Smokeless tobacco: Never Vaping Use Vaping Use: Never used Substance Use Topics Alcohol use: Yes Drug use: Yes Frequency: 2.0 times per week Comment: [place] per patient Reviewed current medications, allergies, past medical history, surgical history, family history andsocial history today. REVIEW OF SYSTEMS All other reviewed and negative other than HPI. HEALTH MAINTENANCE: Reviewed health maintenance issues today and recommended the following in detail. Anxiety Screening Never done Colorectal Cancer Screening due on 2018 Lung Cancer Screening Never done VITALS: BP 122/92 Pulse 101 Wt 79.8 kg (176 lb) SpO2 95% BMI 25.25 kg/m Last 4 Encounter Wt Readings: Date: Wt: 11/01/2023 80.7 kg (178 lb) 02/04/2022 83.5 kg (184 lb) 12/30/2021 84.8 kg (187 lb) 01/16/2021 84.4 kg (186 lb) PHYSICAL EXAMINATION: General appearance: Well appearing, alert, in no acute distress, well-hydrated, well nourished. Skin: Skin color, texture, turgor normal, no suspicious rashes or lesions Head: Normocephalic, no masses, lesions, tenderness or abnormalities Lungs: Lungs clear to auscultation. No wheezing, rhonchi, rales Heart: RRR without murmur, gallop, or rubs. No ectopy Abdomen: Normal abdominal exam, Abdomen soft, non-tender. Bowel sounds normal. No masses, organomegaly Extremities: No deformities, edema, skin discoloration, clubbing or cyanosis. Good capillary refill. Musculoskeletal: No joint swelling, deformity, or tenderness ASSESSMENT/PLAN: 1. Controlled type 2 diabetes mellitus without complication, without long-term current use of insulin (HCC) - ICD9: 250.00, ICD10: E11.9 (primary diagnosis) - restart metformin xr if up. He does have at home. Can consider testing once a day if up. Will need sent in depending on labs. - HEMOGLOBIN A1C 2. Hyperlipidemia, mixed - ICD9: 272.2, ICD10: E78.2 - Control undetermined, due for labs - never picked up atorvastatin. Refuses to take crestor. Agree with Michelle that I am unsure it caused any issues but we can try the other if still up. - LIPID PANEL BASIC 3. Tobacco abuse - ICD9: 305.1, ICD10: Z72.0 - Cessation encouraged. 4. Screening for prostate cancer - ICD9: V76.44, ICD10: Z12.5 - PSA/PROSTATE SPECIFIC ANTIGEN SCREENING 5. Encounter for screening examination for other mental health and behavioral disorders - ICD9: V79.8, ICD10: Z13.39 - ANXIETY SCREENING Cristian Barnett MD RTO in six months or prn. documented in this encounterUniversity [facility]07-30-[facility] Telephone encounter Note * Telephone Encounter - Monserrat Smart RN - 02/08/2024 4:27 PM EDT Significant other, Trudy, reports patient wants an appt with Dr. Barnett only. Reports patient just saw Dr. Barnett's associate, and she prescribed medications for him and he would like to discuss these medications with Dr. Barnett. Trudy states patient is confused about why he is prescribed these. Scheduled appt. [facility]07-30-2024 Miscellaneous Notes* Telephone Encounter - Monserrat Smart RN - 02/08/2024 4:27 PM EDT Significant other, Trudy, reports patient wants an appt with Dr. Barnett only. Reports patient just saw Dr. Barnett's associate, and she prescribed medications for him and he would like to discuss these medications with Dr. Barnett. Trudy states patient is confused about why he is prescribed these. Scheduled appt. documented in this encounterUniversity [facility]als [facility]05-20-2024 Telephone encounter Note * Telephone Encounter - Raiza Mcdonald LPN - 11/29/2023 9:17 AM EDT Explained to and she verbalizes understanding. [facility]05-20-2024 Miscellaneous Notes* Telephone Encounter - Raiza Mcdonald LPN - 11/29/2023 9:17 AM EDT Explained to and she verbalizes understanding. * Telephone Encounter - Gilda Wright APRN.CNS - 11/29/2023 9:02 AM EDT Please have patient stop the cholesterol medicine for 2 weeks. He has a history of migraines and I want to make sure that the headaches are completely gone before starting a atorvastatin 40 mg daily. It may be a flare of his migraines. I want to make sure that it is the rosuvastatin before we listed as an intolerance. The headaches should resolve in 4 to 5 days completely if it is the rosuvastatin. A atorvastatin was ordered and is at his pharmacy. * Telephone Encounter - Sagrario Caldwell LPN - 11/29/2023 8:14 AM EDT Last OV: 11/01/23 - prescribed Crestor 5 mg daily. Pt's SO, Trudy calls to report that pt has been having MACK's ever since starting Crestor. Asking ifthere is a different medication pt can take. Sagrario Caldwell LPN documented in this encounterUniversity Hospitals [facility]05-20-2024 Telephone encounter Note * Telephone Encounter - Gilda Wright APRN.DIDACTIC INSTRUCTOR - 11/29/2023 9:02 AM EDT Please have patient stop the cholesterol medicine for 2 weeks. He has a history of migraines and I want to make sure that the headaches are completely gone before starting a atorvastatin 40 mg daily. It may be a flare of his migraines. I want to make sure that it is the rosuvastatin before we listed as an intolerance. The headaches should resolve in 4 to 5 days completely if it is the rosuvastatin. A atorvastatin was ordered and is at his pharmacy. [facility]05-20-[facility] Telephone encounter Note* Telephone Encounter - Sagrario Caldwell LPN - 11/29/2023 8:14 AM EDT Last OV: 11/01/23 - prescribed Crestor 5 mg daily. Pt's SO, Trudy calls to report that pt has been having MACK's ever since starting Crestor. Asking ifthere is a different medication pt can take. Sagrario Caldwell LPN [facility]04-24-2024 Telephone encounter Note* Telephone Encounter - Yolande Hines APRN.FLAME BURNER - 11/03/2023 9:57 AM EDT Noted. Orders signed. Yolande Hines APRN.PRAFUL [facility] Work Phone: [phone]) 992-111104-24-2024 Miscellaneous Notes* Telephone Encounter - Yolande Hines APRN.CNP - 11/03/2023 9:57 AM EDT Noted. Orders signed. Yolande Hines APRN.PRAFUL * Telephone Encounter - Cecily Soler RN - 11/02/2023 10:16 AM EDT Pt called and is notified of providers results and instructions. Pt voices understanding. Pt stateshe will have to wait until the first of the month to get those medications so he has the money. Scheduled 6 month appointment and put labs in for provider to sign. Cecily Soler RN * Telephone Encounter - Gilda Wright APRN.CNS - 11/01/2023 5:24 PM EDT Please let patient know that lab work indicates he is a new diabetic. Hemoglobin A1c was 6.7 %. Please avoid sweets and simple carbohydrates such as white flour products, white rice, and potatoes. Choosing whole-grain whenever possible. I am going to start him on metformin SA 750 mg to take with supper or his largest meal of the day. We should also consider a cholesterol medicine as his LDL cholesterol is too high. It is 117 and for a diabetic it should be less than 70. Lean meats skim dairy products. I will order rosuvastatin 5 mg daily. Take it at the same time as that metformin. Please make a follow-up in 6 months so that wecan check on labs. documented in this encounterUniversity Hospitals [facility]04-23-2024 Telephone encounter Note * Telephone Encounter - Cecily Soler RN - 11/02/2023 10:16 AM EDT Pt called and is notified of providers results and instructions. Pt voices understanding. Pt stateshe will have to wait until the first of the month to get those medications so he has the money. Scheduled 6 month appointment and put labs in for provider to sign. Cecily Soler RN [facility]04-22-2024 Telephone encounter Note* Telephone Encounter - Gilda Wright APRN.CNS - 11/01/2023 5:24 PM EDT Please let patient know that lab work indicates he is a new diabetic. Hemoglobin A1c was 6.7 %. Please avoid sweets and simple carbohydrates such as white flour products, white rice, and potatoes. Choosing whole-grain whenever possible. I am going to start him on metformin SA 750 mg to take with supper or his largest meal of the day. We should also consider a cholesterol medicine as his LDL cholesterol is too high. It is 117 and for a diabetic it should be less than 70. Lean meats skim dairy products. I will order rosuvastatin 5 mg daily. Take it at the same time as that metformin. Please make a follow-up in 6 months so that wecan check on labs. [facility]04-22-2024 Instructions* Patient Instructions* Gilda Wright APRN.CNS - 11/01/2023 10:52 AM EDT 1) Get labs today 2) Rabeprazole reordered 3) Azithromycin 2 tab today then 1 daily until gone for pharyngitis 4) Triamcinolone ointment 2 x day to chest 5) Follow up yearly documented in this encounterUniversity [facility]als [facility]04-22-2024 History of Present illness Narrative* Gilda Wright APRN.DIDACTIC INSTRUCTOR - 11/01/2023 10:31 AM EDT This is a 48 year old male who presents today with: Patient presents with: Follow Up: Overdue Rash: Red, raised spots on chest HISTORY OF PRESENT ILLNESS: Hyun Cian is a 48 year old male. Patient presents with: Follow Up: Overdue Rash: Red, raised spots on chest Needs PPI renewed. Some lesions on chest that are painful at times. Left inguinal hernia. Occ discomfort. PAST MEDICAL HISTORY: PAST MEDICAL HISTORY Diagnosis Date Diaphragmatic hernia without mention of obstruction or gangrene Dysthymic disorder 07/12/2007 Depression (non-psychotic) Esophageal reflux Legally blind Seizures (HCC) childhood PAST SURGICAL HISTORY Procedure Laterality Date APPENDECTOMY 1975 ESOPHAGOGASTRODUODENOSCOPY TRANSORAL DIAGNOSTIC 07/16/2008 EGD PAST SURGICAL HISTORY OF ORIF arm fracture PAST SURGICAL HISTORY OF 1995 Reconstruction of Rt arm after industrial accident RPR 1ST INGUN HRNA AGE 3 YRS/> REDUCIBLE 1975 Hernia repair, inguinal ALLERGIES Augmentin [Amoxicillin-Pot Clavulanate] and Bactrim [Sulfamethoxazole] MEDICATIONS Current Outpatient Medications Medication Sig RABEprazole (ACIPHEX) 20 mg tablet Take 1 tablet by mouth once daily. No current facility-administered medications for this visit. FAMILY HISTORY Problem Relation Age of Onset Diabetes Mother COPD Mother Cancer Maternal Grandfather Social History Tobacco Use Smoking status: Every Day Packs/day: 1.00 Years: 24.00 Additional pack years: 0.00 Total pack years: 24.00 Types: Cigarettes Smokeless tobacco: Never Vaping Use Vaping Use: Never used Substance Use Topics Alcohol use: Yes Drug use: Yes Frequency: 2.0 times per week Comment: [place] per patient REVIEW OF SYSTEMS GENERAL: No weight loss, malaise or fevers/chills HEENT: A few headaches, Some changes in hearing loss and legally blind. NECK: Negative for lumps, goiter, pain and significant neck swelling RESPIRATORY: Negative for cough, hemoptysis, wheezing, some dyspnea or shortness of breath from smoking- 1ppd for 34 years & MJ CARDIOVASCULAR: Negative for chest pain, leg swelling, orthopnea, or palpitations GI: No nausea, vomiting, or diarrhea/constipation. No hematochezia/melena. Some heartburn or refluxsymptoms. : No history of dysuria, frequency or incontinence MUSCULOSKELETAL: David. knee joint pain or swelling. SKIN: Negative for lesions, rash, and itching- a few pustules on chest that are tender ENDOCRINE: Negative for cold or heat intolerance, polyuria, polydipsia and goiter NEURO: No history of headaches, syncope, paralysis, seizures or tremors MOOD: Negative for depression, anxiety, or suicidal ideation. EXAM: BP 138/80 Pulse 77 Resp 18 Wt 80.7 kg (178 lb) SpO2 97% BMI 25.54 kg/m PHYSICAL EXAM: General Appearance: well appearing, alert and oriented. Skin: 3 tiny red pustules in the center of his chest, tender to touch head: normocephalic, no obvious masses, lesions, tenderness or abnormalities. Eyes: Anicteric sclera. Pupils are equally round and reactive to light. Left eye turns inward. No nystagmus. Hearing to conversational voice intact. Nose/Sinuses: nares inflamed, septum midline, mucosa smooth but boggy, clear postnasal drainage, nosinus tenderness. Oropharynx: lips, mucosa, and tongue normal, oropharynx red and inflamed with 1 large pustule on each side of throat Neck: trachea midline, thyroid without mass or nodularity, thyroid moves normally with swallow, palpable paratracheal regional lymphadenopathy bilaterally. Back: Moves easily lungs: Chest rise & fall symmetrical, Lungs clear to auscultation. No wheezing or rhonchi. No rales. Abdomen: normal bowel sounds, no mass, non-tender Heart: S1S2, no gallop, no rub, no murmurs lymph Nodes: no lymphadenopathy. Ext: no clubbing, cyanosis or edema. Mood: bright affect, speech clear, answers questions appropriately LABS: Patient agrees to get labs next week ASSESSMENT/PLAN: 1. Screening for colon cancer - ICD9: V76.51, ICD10: Z12.11 (primary diagnosis) Overdue - COLOGUARD ordered 2. Hiatal hernia - ICD9: 553.3, ICD10: K44.9 Ongoing 3. Screening for diabetes mellitus - ICD9: V77.1, ICD10: Z13.1 No recent screening - MAGNESIUM - HEMOGLOBIN A1C 4. Screening for lipid disorders - ICD9: V77.91, ICD10: Z13.220 Labs pending - LIPID PANEL, NONFASTING 5. Chronic pain of both knees - ICD9: 719.46, 338.29, ICD10: M25.561, M25.562, G89.29 Ongoing - VITAMIN D 25 HYDROXY 6. Tobacco abuse - ICD9: 305.1, ICD10: Z72.0 - Cessation encouraged. - Physiologic and physical aspects of tobacco addiction as well as strategies for quitting were discussed. - Counseling was given focusing on the harmful effects of this addiction especially given the patient's medical condition(s) which will be worsened because of the chemicals in tobacco. - COMPLETE BLOOD COUNT AND DIFFERENTIAL - COMPREHENSIVE METABOLIC PANEL - MAGNESIUM - VITAMIN B12 - CONSULT LUNG CANCER SCREENING CLINIC 7. Acute pharyngitis due to other specified organisms - ICD9: 462, ICD10: J02.8 Notable blisters on back of throat - AZITHROMYCIN 250 MG TABLET 8. Allergic contact dermatitis due to other agents - ICD9: 692.89, ICD10: L23.89 Acute - TRIAMCINOLONE ACETONIDE 0.1 % TOPICAL CREAM 2 x sandi prn Discussed treatment plan and patient voices understanding. Patient's questions answered appropriately. Medications and potential side effects were discussed and patient voices understanding. Return to the office as scheduled or as needed for worsening/no improvement. Gilda Wright APRN.CNS The patient indicates understanding of these issues and agrees with the plan. documented in this encounterUniversity [facility]als [facility]04-17-2024 Miscellaneous Notes* Telephone Encounter - Kenna Conley - 10/27/2023 3:22 PM EDT Opened in error. Kenna Robertson documented in this encounterUniversity Hospitals [facility]03-30-2023 Miscellaneous Notes* Telephone Encounter - Arline Muro - 10/08/2022 2:36 PM EDT Patient has been identified by name and date of : Yes Last office visit in this department: 12/30/2021 RX INSTRUCTIONS: Patient aware RX will be sent to pharmacy. No need to notify patient. Patient phones requesting refills as follows: Requested Prescriptions Pending Prescriptions Disp Refills RABEprazole (ACIPHEX) 20 mg tablet 90 tablet 3 Sig: Take 1 tablet by mouth once daily. Please review and advise. Arline Muro documented in this encounterUniversity Hospitals [facility]06-21-2022 History of Present illness Narrative* Cristian Barnett MD - 12/30/2021 4:24 PM EDT Patient presents with: Pain (foot): bilateral, feels like needles, chronic (NO BACK PAIN Currently) HPI: Patient presents today for office visit for acute visit. Patient complains of: discomfort Duration: one year Location:both feet Associated Symptoms: worse with wearing shoes. Aggravating factors:as above No trauma. No redness or warmth. Some occasional back pain. MEDICATIONS: Current Outpatient Medications Medication Sig RABEprazole (ACIPHEX) 20 mg tablet Take 1 tablet by mouth once daily. No current facility-administered medications for this visit. ALLERGIES: ALLERGIES Allergen Reactions Augmentin [Amoxicil* Diarrhea Bactrim [Sulfametho* Swelling PAST MEDICAL HISTORY Diagnosis Date Diaphragmatic hernia without mention of obstruction or gangrene Dysthymic disorder 2007 Depression (non-psychotic) Esophageal reflux Seizures (HCC) childhood PAST SURGICAL HISTORY Procedure Laterality Date APPENDECTOMY 1975 ESOPHAGOGASTRODUODENOSCOPY TRANSORAL DIAGNOSTIC 07/16/2008 EGD PAST SURGICAL HISTORY OF ORIF arm fracture PAST SURGICAL HISTORY OF 1995 Reconstruction of Rt arm after industrial accident RPR 1ST INGUN HRNA AGE 3 YRS/> REDUCIBLE 1975 Hernia repair, inguinal FAMILY HISTORY Problem Relation Age of Onset Cancer Maternal Grandfather Diabetes Mother COPD Mother Social History Tobacco Use Smoking status: Current Every Day Smoker Packs/day: 1.00 Years: 24.00 Pack years: 24.00 Types: Cigarettes Smokeless tobacco: Never Used Vaping Use Vaping Use: Never used Substance Use Topics Alcohol use: Yes Drug use: Yes Frequency: 2.0 times per week Comment: [place] per patient Reviewed current medications, allergies, past medical history, surgical history, family history andsocial history today. REVIEW OF SYSTEMS denies chest pain or shortness of breath. All other reviewed and negative other than HPI. HEALTH MAINTENANCE: Reviewed health maintenance issues today and recommended the following in detail. COVID-19 VACCINE-Discussed risks and benefits of covid vaccine. Recommended they consider it. COLORECTAL CANCER SCREENING due on 2018 Negative depression screen. VITALS: BP 120/82 Pulse 110 Resp 16 Wt 84.8 kg (187 lb) SpO2 97% BMI 26.08 kg/m Last 4 Encounter Wt Readings: Date: Wt: 12/30/2021 84.8 kg (187 lb) 01/16/2021 84.4 kg (186 lb) 01/15/2021 83.5 kg (184 lb) 11/08/2019 79.4 kg (175 lb) PHYSICAL EXAMINATION: General appearance: Well appearing, alert, in no acute distress, well-hydrated, well nourished. Skin: Skin color, texture, turgor normal, no suspicious rashes or lesions Head: Normocephalic, no masses, lesions, tenderness or abnormalities Lungs: Lungs clear to auscultation. No wheezing, rhonchi, rales Heart: RRR without murmur, gallop, or rubs. No ectopy Abdomen: Normal abdominal exam, Abdomen soft, non-tender. Bowel sounds normal. No masses, organomegaly Feet:Shoes and socks removed, No deformities, ulcers, calluses, normal distal pulses and not sensitive to monofilament bilaterally ASSESSMENT/PLAN: 1. Paresthesia - ICD9: 782.0, ICD10: R20.2 (primary diagnosis) - check labs and emg. b complex vitamin. Watch feet closely. - CBC + DIFF - COMP METABOLIC PANEL - VITAMIN B12 BLOOD - FOLATE SERUM - PROTEIN ELECTROPHORESIS SERUM W/INTERP - TSH BLD - EMG(NEURO/NI) 2. Screening for colon cancer - ICD9: V76.51, ICD10: Z12.11 - CONSULT TO GENERAL SURGERY Cristian Barnett Medical Decision Making: Problems: Moderate: New problem with uncertain prognosis Data: Unique test(s) ordered: 3+ Medical Decision Making Level: 4 - Moderate documented in this encounterUniversity Hospitals [facility]10-28-2011 History of Past illness Narrative* Problem Noted Date Resolved Date Benign localized hyperplasia of prostate without urinary obstruction and other lower urinary tract symptoms (LUTS) 05/08/2011 05/08/2011 Depressive disorder, not elsewhere classified 05/27/2018 documented as of this encounter (statuses as of 12/30/2021) [facility] History of Past illness Narrative* Problem Noted Date Resolved Date Benign localized hyperplasia of prostate without urinary obstruction and other lower urinary tract symptoms (LUTS) 05/08/2011 05/08/2011 Depressive disorder, not elsewhere classified 05/27/2018 documented as of this encounter (statuses as of 10/08/2022) [facility] History of Past illness Narrative* Problem Noted Date Diagnosed Date Resolved Date Benign localized hyperplasia of prostate without urinary obstruction and other lower urinary tract symptoms (LUTS) 05/08/2011 05/08/2011 Depressive disorder, not elsewhere classified 05/09/2005/27/2018 documented as of this encounter (statuses as of 10/28/2023) [facility] note* Diagnosis Paresthesia- Primary Disturbance of skin sensation Screening for colon cancer Special screening for malignant neoplasms, colon documented in this encounter [facility]* Diagnosis Screening for colon cancer- Primary Special screening for malignant neoplasms, colon Hiatal hernia Diaphragmatic hernia without mention of obstruction or gangrene Screening for diabetes mellitus Screening for lipid disorders Chronic pain of both knees Tobacco abuse Tobacco use disorder Acute pharyngitis due to other specified organisms Allergic contact dermatitis due to other agents documented [facility] this encounter [facility] Diagnosis Controlled type 2 diabetes mellitus without complication, without long-term current use of insulin (HCC)- Primary Hyperlipidemia, mixed Mixed hyperlipidemia documented in this encounter [facility]* Diagnosis Dyslipidemia- Primary Other and unspecified hyperlipidemia documented in this encounter [facility]* Diagnosis Controlled type 2 diabetes mellitus without complication, without long-term current use of insulin (HCC)- Primary Hyperlipidemia, mixed Mixed hyperlipidemia Tobacco abuse Tobacco use disorder Screening for prostate cancer Special screening for malignant neoplasm of prostate Encounter for screening examination for other mental health and behavioral disorders [facility] Diagnosis Controlled type 2 diabetes mellitus without complication, without long-term current use of insulin (HCC) documented in this encounter [facility]* Diagnosis Lung nodules- Primary Other nonspecific abnormal finding of lung field Controlled type 2 diabetes mellitus without complication, without long-term current use of insulin (HCC) Hyperlipidemia, mixed Mixed hyperlipidemia Tobacco abuse Tobacco use disorder Lymphadenopathy, abdominal Enlargement of lymph nodes Hilar lymphadenopathy Enlargement of lymph nodes documented in this encounter [facility]* Diagnosis Hilar lymphadenopathy- Primary Enlargement of lymph nodes Medication monitoring encounter Encounter for therapeutic drug monitoring Lymphadenopathy, abdominal Enlargement of lymph nodes Lung nodules Other nonspecific abnormal finding of lung field Chest wall pain Painful respiration Tobacco abuse Tobacco use disorder Gross hematuria Acute constipation Unspecified constipation Night sweats Generalized hyperhidrosis Acute constipation Unspecified constipation [facility] encounter [facility] Diagnosis Acute constipation Unspecified constipation [facility] this encounter [facility]* Diagnosis Anemia, unspecified type- Primary documented in this encounter [facility]* Diagnosis Anemia, unspecified type- Primary Folic acid deficiency Other B-complex deficiencies [facility] this encounter [facility]* Diagnosis Lymphadenopathy, abdominal- Primary Enlargement of lymph nodes Chest wall pain Painful respiration Hilar lymphadenopathy Enlargement of lymph nodes Lung nodule Solitary pulmonary nodule documented [facility] this encounter [facility]* Diagnosis Anxiety- Primary Anxiety state, unspecified documented in this encounter [facility] referral (narrative)No reason for referral information availableWUniversity [facility] Work Phone: Reason for visit Narrative* Diagnostic Procedure Only (Urgent) - Closed Specialty Diagnoses / Procedures Referred By Levi low Referred To Contact XR IMAGING Diagnoses Acute constipation Procedures XR ABDOMEN 1V SUPINE RADIOLOGIC EXAM ABDOMEN 1 VIEW Cristian Barnett MD [address] [place] [address] Phone: tel: fax: XR IMAGING [place] [address] Referral ID Status Reason Start Date Expiration Date V isits Requested Visits Authorized [id number] Closed Auto-Generate d Referral 12/15/2024 01/14/2026 1 1 [facility] Reason for Referral Specialty Diagnoses / Procedures Referred By Levi low Referred To Contact General Surgery Diagnoses Screening for colon cancer Procedures CONSULT TO GENERAL SURGERY OFFICE/OUTPATIENT [facility] 60-74 MINUTES Cristian Barnett MD [address] [place] [address] Referral ID Status Reason Start Date Expiration Date Visits Requested Visits Authorized [id number] Authorized PCP Requested Referral 12/30/2021 12/30/2022 1 1 Specialty Diagnoses / Procedures Referred By Levi t Referred To Contact [facility] Diagnoses Paresthesia Procedures EMG(NEURO/NI) NERVE CONDUCTION STUDIES 9-10 STUDIES Cristian Barnett MD [address] [place] [address] [facility] [place] [address] [place] [address] Referral ID Status Reason Start Date Expiration Date Visits Requested Visits Authorized [id number] Pending Review Auto-Generat ed Referral 12/30/2021 12/30/2022 1 1 Advance Directives No Advanced Directives Records FoundDocuments on File Type Date Recorded 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 No November 12, 2024 8:06am Chief Complaint and Reason for Visit Chief Complaint Admit Date abd pain November 12, 2024 8:03am Fast Pass November 14, 2024 10:48a m Reason for Visit Admit Date Abnormal screening computed tomography ( CT) of chest November 14, 2024 10:48am Multiple lung nodules on CT November 14 10:48am Summary Purpose Family History No Family History Records FoundNo Family History Records Found Additional Source Comments Source Comments (unrecognize d section and content) In the event this informatio n is protected by the Federal Confidentiality of Alcohol and Drug Abuse Patient Records regulations: The Federal rules restrict any use of the information to criminally investigate or prosecute any alcohol or drug abuse patient.[facility] Center[facility] the event this information is protected by the Federal Confidentiality of Alcohol and Drug Abuse Patient Records regulations: The Federal rules restrict any use of the information to criminally investigate or prosecute any alcohol or drug abuse patient.[facility] Center[facility] the event this information is protected by the Federal Confidentiality of Alcohol and Drug Abuse Patient Records regulations: The Federal rules restrict any use of the information to criminally investigate or prosecute any alcohol or drug abuse patient.[facility] CenterIn the event this information is protected by the Federal Confidentiality of Alcohol and Drug Abuse Patient Records regulations: The Federal rules restrict any use of the information to criminally investigate or prosecute any alcohol or drug abuse patient.[facility] CenterIn the event this information is protected by the Federal Confidentiality of Alcohol and Drug Abuse Patient Records regulations: The Federal rules restrict any use of the information to criminally investigate or prosecute any alcohol or drug abuse patient.[facility] CenterIn the event this information is protected by the Federal Confidentiality of Alcohol and Drug Abuse Patient Records regulations: The Federal rules restrict any use of the information to criminally investigate or prosecute any alcohol or drug abuse patient.[facility] CenterIn the event this information is protected by the Federal Confidentiality of Alcohol and Drug Abuse Patient Records regulations: The Federal rules restrict any use of the information to criminally investigate or prosecute any alcohol or drug abuse patient.[facility] CenterIn the event this information is protected by the Federal Confidentiality of Alcohol and Drug Abuse Patient Records regulations: The Federal rules restrict any use of the information to criminally investigate or prosecute any alcohol or drug abuse patient.[facility] CenterIn the event this information is protected by the Federal Confidentiality of Alcohol and Drug Abuse Patient Records regulations: The Federal rules restrict any use of the information to criminally investigate or prosecute any alcohol or drug abuse patient.[facility] CenterIn the event this information is protected by the Federal Confidentiality of Alcohol and Drug Abuse Patient Records regulations: The Federal rules restrict any use of the information to criminally investigate or prosecute any alcohol or drug abuse patient.[facility] CenterIn the event this information is protected by the Federal Confidentiality of Alcohol and Drug Abuse Patient Records regulations: The Federal rules restrict any use of the information to criminally investigate or prosecute any alcohol or drug abuse patient.[facility] CenterIn the event this information is protected by the Federal Confidentiality of Alcohol and Drug Abuse Patient Records regulations: The Federal rules restrict any use of the information to criminally investigate or prosecute any alcohol or drug abuse patient.[facility] CenterIn the event this information is protected by the Federal Confidentiality of Alcohol and Drug Abuse Patient Records regulations: The Federal rules restrict any use of the information to criminally investigate or prosecute any alcohol or drug abuse patient.[facility] CenterIn the event this information is protected by the Federal Confidentiality of Alcohol and Drug Abuse Patient Records regulations: The Federal rules restrict any use of the information to criminally investigate or prosecute any alcohol or drug abuse patient.[facility] CenterIn the event this information is protected by the Federal Confidentiality of Alcohol and Drug Abuse Patient Records regulations: The Federal rules restrict any use of the information to criminally investigate or prosecute any alcohol or drug abuse patient.[facility] CenterIn the event this information is protected by the Federal Confidentiality of Alcohol and Drug Abuse Patient Records regulations: The Federal rules restrict any use of the information to criminally investigate or prosecute any alcohol or drug abuse patient.[facility] CenterIn the event this information is protected by the Federal Confidentiality of Alcohol and Drug Abuse Patient Records regulations: The Federal rules restrict any use of the information to criminally investigate or prosecute any alcohol or drug abuse patient.[facility] CenterIn the event this information is protected by the Federal Confidentiality of Alcohol and Drug Abuse Patient Records regulations: The Federal rules restrict any use of the information to criminally investigate or prosecute any alcohol or drug abuse patient.[facility] CenterIn the event this information is protected by the Federal Confidentiality of Alcohol and Drug Abuse Patient Records regulations: The Federal rules restrict any use of the information to criminally investigate or prosecute any alcohol or drug abuse patient.[facility] CenterIn the event this information is protected by the Federal Confidentiality of Alcohol and Drug Abuse Patient Records regulations: The Federal rules restrict any use of the information to criminally investigate or prosecute any alcohol or drug abuse patient.[facility] CenterIn the event this information is protected by the Federal Confidentiality of Alcohol and Drug Abuse Patient Records regulations: The Federal rules restrict any use of the information to criminally investigate or prosecute any alcohol or drug abuse patient.[facility] CenterIn the event this information is protected by the Federal Confidentiality of Alcohol and Drug Abuse Patient Records regulations: The Federal rules restrict any use of the information to criminally investigate or prosecute any alcohol or drug abuse patient.[facility] Reason for Visit (unrecogniz ed section and content) Reason Comments Pain (foot) bilateral, feels lik e needles, chronic (NO BACK PAIN Currently) Reason Comments Refill Request Reason Comments Opened In Error Reason Comments Follow Up Overdue Rash Red, raised spots on chest Reason Comments Results Reason Comments Medication Problem Reason Comments Appointment Reason Comments Follow Up Reason Onset Date Comments Refill Request 10/04/2024 Reason Comments Chest Pain Reason Comments ER F/U Reason Onset Date Comments Refill Request 11/28/2024 Reason Comments Follow Up Pain Reason Onset Date Comments Refill Request 12/20/2024 Reason Comments Patient Question Care Teams (unrecognized sec tion and content) Drum Loader And Unloader Relationship Specialty Start Date End Date Cristian Barnett MD [address] [place], [place] [address] PCP - General Family Practice 10/08/14 Drum Loader And Unloader Relationship Specialty Start Date End Date Cristian Barnett MD [address] [place], [place] [id number] PCP - General Family Medicine 10/08/14 Drum Loader And Unloader Relationship Specialty Start Date End Date Cristian Barnett MD [address] [place], [place] [id number] PCP - General Family Medicine 10/08/14 Drum Loader And Unloader Relationship Specialty Start Date End Date Cristian Barnett MD [address] [place] [address] PCP - General Family Medicine 10/08/14 Drum Loader And Unloader Relationship Specialty Start Date End Date Cristian Barnett MD [address] [place] [address] PCP - General Family Medicine 10/08/14 Drum Loader And Unloader Relationship Specialty Start Date End Date Cristian Barnett MD [address] [place] [address] PCP - General Family Medicine 10/08/14 Drum Loader And Unloader Relationship Specialty Start Date End Date Cristian Barnett MD [address] [place] [address] PCP - General Family Medicine 10/08/14 Drum Loader And Unloader Relationship Specialty Start Date End Date Cristian Barnett MD [address] [place] [address] PCP - General Family Medicine 10/08/14 Drum Loader And Unloader Relationship Specialty Start Date End Date Cristian Barnett MD [address] [place] [address] PCP - General Family Medicine 10/08/14 Drum Loader And Unloader Relationship Specialty Start Date End Date Cristian Barnett MD [address] [place] [address] PCP - General Family Medicine 10/08/14 Yolande Hines APRN.FLAME BURNER [address] [place] [address] Script Worker Family Medicine 06/19/24 Gilda Wright APRN.FLAME BURNER [address] [place] [address] [facility] 06/19/24 Drum Loader And Unloader Relationship Specialty Start Date End Date Cristian Barnett MD [address] [place], [place] [id number] PCP - General Family Medicine 10/08/14 Yolande Hines APRN.FLAME BURNER [address] [place] [address] [facility] 06/19/24 Gilda Wright APRN.FLAME BURNER [address] [place] [address] [facility] 06/19/24 Team Status: Active Member Role Status Dates Dr. Cristian Barnett MD Primary Care Provider Active Team Status: Inactive Member Role Status Dates Dr. Cristian Barnett MD Primary Care Provider Active Start: November 12, 2024 End: November 12, 2024 Dr. Dionicio Grimes , DO Attending Provider Active Start: November 12, 2024 End: November 12, 2024 Dr. Dionicio Grimes , DO Emergency Provider Active Start: November 12, 2024 End: November 12, 2024 Team Status: Inactive Member Role Status Dates Dr. Cristian Barnett MD Primary Care Provider Active Start: November 14, 2024 End: November 14, 2024 Dr. Cristian Barnett MD Referring Provider Active Start: November 14, 2024 End: November 14, 2024 Dr. Denny Moffett , DO Attending Provider Active S tart: November 14, 2024 End: November 14, 2024 Team Status: Inactive Member Role Status Dates Dr. Cristian Barnett MD Primary Care Provider Active Start: November 14, 2024 End: November 14, 2024 Dr. Denny Moffett , Attending Provider Active S tart: November 14, 2024 End: November 14, 2024 Dr. Denny Moffett , DO Referring Provider Active S tart: November 14, 2024 End: November 14, 2024 Drum Loader And Unloader Relationship Specialty Start Date End Date Cristian Barnett MD [address] [facility] [place] [address] PCP - General Family Medicine 10/08/14 Yolande Hines APRN.FLAME BURNER [address] [facility] [place] [address] Script Worker Family Medicine 06/19/24 Gilda Wright APRN.FLAME BURNER [address] [facility] [place] [address] Script Worker Family Medicine 06/19/24 Drum Loader And Unloader Relationship Specialty Start Date End Date Cristian Barnett MD [address] [facility] [place] [address] PCP - General Family Medicine 10/08/14 Yolande Hines APRN.FLAME BURNER [address] [facility] [place] [address] Script Worker Family Medicine 06/19/24 Gilda Wright APRN.FLAME BURNER [address] [facility] [place] [address] Script Worker Family Medicine 06/19/24 Drum Loader And Unloader Relationship Specialty Start Date End Date Cristian Barnett MD [address] [place] [address] PCP - General Family Medicine 10/08/14 Yolande Hines APRN.FLAME BURNER [address] [facility] [place] [address] Script Worker Family Medicine 06/19/24 Gilda Wright APRN.FLAME BURNER [address] [place] [address] Script Worker Family [facility] 06/19/24 Drum Loader And Unloader Relationship Specialty Start Date End Date Cristian Barnett MD [address] [place] [address] PCP - General Family Medicine 10/08/14 Yolande Hines FREELANCE DATA ENTRY.FLAME BURNER [address] [facility] [place] [address] Script Worker Family Medicine 06/19/24 Gilda Wright FREELANCE DATA ENTRY.FLAME BURNER [address] [place] [address] [facility] 06/19/24 Drum Loader And Unloader Relationship Specialty Start Date End Date Cristian Barnett MD [address] [place] [address] PCP - General Family Medicine 10/08/14 Yolande Hines FREELANCE DATA ENTRY.FLAME BURNER [address] [place] [address] [facility] Medicine 06/19/24 Gilda Wright FREELANCE DATA ENTRY.FLAME BURNER [address] [facility] [place] [address] [facility] 06/19/24 Drum Loader And Unloader Relationship Specialty Start Date End Date Cristian Barnett MD [address] [facility] [place] [address] PCP - General Family Medicine 10/08/14 Yolande Hines, FREELANCE DATA ENTRY.FLAME BURNER [address] [facility] [place] [address] [facility] 06/19/24 Gilda Wright FREELANCE DATA ENTRY.FLAME BURNER [address] [place] [address] [facility] 06/19/24 Drum Loader And Unloader Relationship Specialty Start Date End Date Cristian Barnett MD [address] [place] [address] PCP - General Family Medicine 10/08/14 Yolande Hines APRN.FLAME BURNER [address] [place] [address] [facility] 06/19/24 Gilda Wright FREELANCE DATA ENTRY.FLAME BURNER [address] [place] [address] [facility] 06/19/24 Drum Loader And Unloader Relationship Specialty Start Date End Date Cristian Barnett MD [address] [place] [address] PCP - General Family Medicine 10/08/14 Yolnade Hines APRN.FLAME BURNER [address] [place] [address] [facility] 06/19/24 Gilda Wright FREELANCE DATA ENTRY.FLAME BURNER [address] [place] [address] [facility] 06/19/24 Drum Loader And Unloader Relationship Specialty Start Date End Date Cristian Barnett MD [address] [place] [address] PCP - General Family Medicine 10/08/14 Yolande Hines APRN.FLAME BURNER [address] [place], [place] [address] [facility] 06/19/24 Gilda Wright APRN.FLAME BURNER [address] [place], [place] [address] [facility] 06/19/24 Drum Loader And Unloader Relationship Specialty Start Date End Date Cristian Barnett MD [address] [place], [place] [id number] PCP - General Family Medicine 10/08/14 Yolande Hines APRN.FLAME BURNER [address] [place], [place] [address] [facility] 06/19/24 Gilda Wright APRN.FLAME BURNER [address] [place], [place] [address] [facility] 06/19/24 Goals (unrecognized section and content) Goals may be documented in a n alternate section (unrecognized sect ion and content) No Status Records FoundNo Status Records Found INFORMATION SOURCE (unrecogn ized section and content) DATE CREATED AUTHOR 12/30/2024 [facility] DATE CREATED AUTHOR AUTHOR'S RACHELL BARRETO 01/01/2025 [facility] FOR RECORDS PERTAINING TO PATIENTS WHO ARE OR HAVE BEEN ENROLLED IN A CHEMICAL DEPENDENCY/SUBSTANCEABUSE PROGRAM, SOME INFORMATION MAY BE OMITTED. This clinical summary was aggregated from multiple sources. Caution should be exercised in using it in the provision of clinical care. This summary normalizes information from multiple sources, and as a consequence, information in this document may materially change the coding, format and clinical context of patient data. In addition, data may be omitted in some cases. CLINICAL DECISIONS SHOULD BE BASED ON THE PRIMARY CLINICAL RECORDS. [employer] provides no warranty or guarantee of the accuracy or completeness of information in this document.
--- NOTE | 2025-01-04 12:16 | RAD_ITS ---
PROCEDURE: CHEST INSP/EXP 2 VIEW 01/04/2025 REASON FOR EXAM: POST LUNG BIOPSY TECHNIQUE: CHEST INSP/EXP 2 VIEW COMPARISON: None FINDINGS: No evidence of pneumothorax on the immediate post right lung biopsy radiographs. Multiple bilateral pulmonary nodules. RAD/Chest Insp/Exp 2 View IMPRESSION: No evidence of pneumothorax. Reading Location: [id number]
--- NOTE | 2025-01-04 14:15 | RAD_ITS ---
PROCEDURE: CHEST INSP/EXP 2 VIEW 01/04/2025 REASON FOR EXAM: 3 Hours POST right LUNG BIOPSY TECHNIQUE: CHEST INSP/EXP 2 VIEW COMPARISON: Chest x-ray of 2 hours earlier. RAD/Chest Insp/Exp 2 View IMPRESSION: Numerous bilateral lung nodules are again noted. No pneumothorax is present. No significant pleural effusion is seen. The cardiomediastinal silhouette is stable, without evidence of cardiomegaly Reading Location: [place] [address]
== END | disposition home or self-care (01) ==
PROVIDERS: Radiology Nuclear Radiology; PCP Family Medicine; Referring Provider Internal Medicine Critical Care Medicine; Visit Provider Internal Medicine Critical Care Medicine
DX: C78.01 Secondary malignant neoplasm of right lung (principal)
CPT/HCPCS: 32408; 36415; 71046; 77012; 85025; 85610; 85730; 88172; 88305; 88312; 88313; 88341; 88342; 99156; 99157; A4216

== ENCOUNTER → 2025-02-06 | Outpatient (CLI) | payer MEDICARE, MEDICAID, SELFPAY ==
--- NOTE | 2025-02-06 11:00 | PET_ITS ---
PROCEDURE: PET/CT TUMOR BASE -THIGH INIT 02/06/2025 REASON FOR EXAM: 49 y/o M with LUNG Right lower lobe malignant neoplasm. TECHNIQUE: Following the intravenous administration of radionucleotide, image acquisition on a dedicated PET/CT unit was performed at one hour post injection. A preliminary CT study encompassing the Skull base, neck, chest, abdomen, pelvis, and proximal thighs was performed for purposes of attenuation correction and anatomic localization. The proximal thighs were also included. The patient's blood glucose level was 197 mg/dL (allowable range: 50-180 mg/dL). RADIOPHARMACEUTICAL: 12.75 mCi 18F-FDG (Fluorodeoxyglucose F18) IV was injected into he patient. RADIATION DOSE SUMMARY: Effective Dose: Approximately 7 mSv for a standard whole-body PET scan Organ Doses: Varies by organ, with higher doses typically to the bladder, liver, and brain COMPARISON: COMPARISON FROM CT, PET OR OTHER PERTINENT EXAMS: CT examination of 11/12/2024. FINDINGS: Physiologic uptake: There may be expected metabolic uptake within the brain, tongue and floor of the mouth and larynx/vocal cords, heart, suzette (many normal individuals have hilar uptake in less than 3 nodes with mildly avid hilar nodes less than 2.7 SUV), liver and spleen, system, and GI tract and symmetric muscle uptake. FDG AVID AND NON-AVID LESIONS. Reported avid SUV values (g/mL*) are maximum SUV. NECK: There are no significant neck abnormalities. CHEST: Chest wall- There are no significant chest wall abnormalities. Axilla- There are no significant axillary abnormalities. Lung parenchyma and Suzette- Innumerable/severe hypermetabolic nodules/masses are seen throughout bilateral lungs and bilateral suzette. These have worsened significantly since the prior study of 11/12/2024. Mediastinum- Numerous hypermetabolic mediastinal nodule/masses are seen. These have worsened significantly since the prior study of 11/12/2024. Pleura- There are no significant pleural abnormalities. ABDOMEN: Stomach- No significant abnormalities. Liver- At least 2 hypermetabolic foci are seen within the right lobe of the liver, with SUV max of the more posterior 3.0. And SUV max the more central of of 2.7. Correlating with CT images, these have atypical appearance metastatic disease. Spleen- No significant abnormalities. Pancreas- A hypermetabolic mass in the body of the pancreas, also extend superiorly. It is measured at approximately 37 x 45 mm in transverse dimension. SUV max is 20.5. This is not seen, even in retrospect, on the CT of 11/12/2024. This is highly concerning for malignancy. Also, a chain left retroperitoneal hypermetabolic masses/lymph nodes is seen, with the largest being most medial with SUV max of 32.3, and approximate size 23 x 28 mm in transverse dimension. Kidneys-No significant abnormalities. Bowel- Normal bowel activity. Spine- No significant abnormalities. PELVIS: Bowel- Normal physiologic bowel activity is identified. Masses- There are no pelvic masses. Bones- Sclerotic hypermetabolic area involving a large portion of the T6 vertebral body. SUV max is Scattered lesser areas of hypermetabolic activity in the vertebral bodies, inferior right acetabulum, medial right pubic bone, perhaps elsewhere in the skeleton. These areas are indeed concerning for osseous metastatic disease. Degenerative changes of the spine are seen. PET/PET/CT Tumor Base -Thigh Init IMPRESSION: FDG avid- Marked interval worsening of bilateral pulmonary, bilateral hilar, mediastinal, pancreatic body, left retroperitoneal, hepatic, and osseous malignancy/metastatic disease. Other: No additional comments. Please note the low-dose CT scan was performed to facilitate PET image reconstr uction and anatomic localization and does not replace a diagnostic CT. Any diagnostic CT requested and performed at the time of the PET will be reported separately. Reading Location: [place] [id number]
[2025-02-12 15:59] LABS: Hematocrit 32.7 % (40-54); Hemoglobin 10.4 g/dL (13.0-16.5); Immature Granulocytes Count 0.070 X10^3/uL (0.0-0.0); Mean Corp Hgb Conc 31.8 g/dL (32-36); Mean Corpuscular Volume 81.5 fL (80-94); Mean Platelet Vol. 9.9 fl (6.2-12.0); NRBC Flagged by Analyzer 0 % (0-5); Platelet Count 493 K/mm3 (150-450); RBC Distribution Width CV 15.2 % (11.6-14.6); RBC Distribution Width SD 45.8 fl (35.1-43.9); Red Blood Count 4.01 M/mm3 (4.6-6.2); White Blood Count 9.7 K/mm3 (4.4-11.0)
[2025-02-12 16:17] LABS: AST(SGOT) 31 U/L (<=37); Alanine Aminotransfer ALT/SGPT 27 U/L (<=46); Albumin, Serum 3.1 g/dL (3.5-5.0); Alkaline Phosphatase 95 U/L (40-129); Anion Gap 12 (5-15); BUN 11 mg/dL (4-19); BUN/Creat Ratio 12.9 RATIO (10-20); Calcium,Total 9.2 mg/dL (7.6-11.0); Carbon Dioxide 21.6 mmol/L (21.0-32.0); Chloride 92 mmol/L (98-108); Globulin 4.8 g/dL (2.2-4.2); Glucose 277 mg/dL (70-99); LDH 113 U/L (87-241); Magnesium 1.7 mg/dL (1.5-2.2); Potassium 4.3 mmol/L (3.3-5.1)
[2025-02-12 23:51] LABS: Xtra Tube EP Lab EXTRA TUBE
== END | disposition home or self-care (01) ==
LOC: ONC 09:37
PROVIDERS: Internal Medicine Medical Oncology; PCP Family Medicine; Referring Provider Nurse Practitioner Acute Care; Visit Provider Nurse Practitioner Acute Care
DX: C34.31 Malignant neoplasm of lower lobe, right bronchus or lung (principal); C78.1 Secondary malignant neoplasm of mediastinum; C78.7 Secondary malignant neoplasm of liver and intrahepatic bile duct; C79.51 Secondary malignant neoplasm of bone; Z87.891 Personal history of nicotine dependence
CPT/HCPCS: 36415; 78815; 80053; 83615; 83735; 84100; 85025; A9552

== ENCOUNTER 2025-02-20 09:05 | Day surgery (SDC) | payer MEDICARE, MEDICAID, SELFPAY ==
--- NOTE | 2025-02-15 16:56 | PAT.ANESEVAL ---
Pre-Assessment Diagnosis/Proposed Procedure Planned Operative Procedure(s): INSERTION VASCULAR PORT RIGHT POSSIBLE LEFT Anesthesia History Anesthesia History - gis mapping technician: Anesthesia History - gis mapping technician Hx Hospitalization No 02/15/25 15:09 Any Problems With Anesthesia No 02/15/25 15:09 Cholinesterase deficiency No 02/15/25 15:09 You/Your Family Experience No 02/15/25 15:09 fever (hyperthermia) with Relationship Recent Exposure to Contagious No 12/15/16 13:07 Disease Does patient have nerve No 02/15/25 15:09 stimulator Patient instructed to have device shut off --Does patient have Pacemaker or ICD? When Was Last Pacemaker Check QUESTION #4 FULL TEXT: You/Your Family Experience fever (hyperthermia) with Anesthesia Last Oral Intake Last Oral intake: Last Oral Intake NPO since Meds taken in AM with sips of water? Meds patient instructed to take am of surgery PONV PONV - gis mapping technician: PONV - gis mapping technician Female No 02/15/25 15:09 HX of Motion Sickness No 02/15/25 15:09 HX of N/V After Surgery No 02/15/25 15:09 Non-Smoker Yes 02/15/25 15:09 Duration of Surgery greater No 02/15/25 15:09 than 60 minutes Number of Risk Factors 1 02/15/25 15:09 PONV Score Low Risk 02/15/25 15:09 Height & Weight Height & Weight: Anesthesia: Height & Weight Height 5 ft 9 in 02/12/25 14:31 Respiratory Assessment Respiratory Assessment - gis mapping technician: Respiratory Tract Infection Hx - gis mapping technician Hx Respiratory Tract Infection No 02/15/25 15:09 STOP Sleep Apnea STOP Sleep Apnea - gis mapping technician: STOP Sleep Apnea - gis mapping technician Hx Hypertension No 02/15/25 15:09 Hx Sleep Apnea No 02/15/25 15:09 CPAP BIPAP Do you snore loudly (louder No 02/15/25 15:09 than talking or can be heard Do you often feel tired/ No 02/15/25 15:09 fatigued/ sleepy during daytime? Has anyone observed you stop No 02/15/25 15:09 breathing during sleep? STOP Results Negative 02/15/25 15:09 QUESTION #5 FULL TEXT : Do you snore loudly (louder than talking or can be heard through closed doors)? Tobacco Use History Tobacco Use History - gis mapping technician: Tobacco Use History - gis mapping technician Tobacco Use Smoking Status Former smoker 02/15/25 15:09 Hx Tobacco Use Yes 02/15/25 15:09 Years Smoking Packs Smoked per Day Smoking Cessation Date was Yes - quit smoking within 15 02/15/25 15:09 within the last 15 years years Hx Smoking Cessation Date Hx Smoking Cessation Counseling Hematologic Medial History Hematologic Hx - gis mapping technician: Hematologic Medical Hx - bumper operator Hx of Blood Transfusion No 02/15/25 15:09 Hx of Transfusion in last 3 No 02/15/25 15:09 Months Date of Last Transfusion (if within last 3 months) Ever experience any problems No 02/15/25 15:09 with transfusion(s)? Specify any problems Hx of Preganancy in last 3 N/A 02/15/25 15:09 Months Nurse Filling Out Transfusion [email or web address] 02/15/25 15:09 & Questions: Date: 02/15/25 02/15/25 15:09 Time: 15:11 02/15/25 15:09 Patient unable to answer at this time (ie. confused, unrespo /Reproduction History /Reproductive History - gis mapping technician: /Reproductive Hx- gis mapping technician Hx Now Gestational Age (in weeks): EDC: Hx Hx Para Hx Section SAB PFSH Medical History (Updated 02/15/25 @ 15:17 by Jose Adorno) Wears dentures Wears glasses Back pain Gastric reflux Former smoker History of stress test Cancer Encounter for education Home Medications ?Medication ?Instructions ?Recorded ?Last Taken ?Type rabeprazole 20 mg tablet,delayed 20 mg PO DAILY 01/20/15 11/11/24 History release (AcipHex) oxycodone 5 mg tablet 5 mg PO Q6H PRN pain 3 days #12 11/12/24 Unknown Rx tabs folic acid 1 mg tablet 1 mg PO QDAY 01/18/25 Unknown History ondansetron 4 mg disintegrating 4 mg PO Q8H PRN PRN Nausea 01/18/25 Unknown History tablet metformin 500 mg tablet,extended 1,000 mg PO QDAY 02/12/25 Unknown History release 24 hr dexamethasone 4 mg tablet 8 mg (2 x 4 mg) PO .COMPLEX #30 02/13/25 Unknown Rx tabs lidocaine-prilocaine 2.5 %-2.5 % 1 applic topical ONCE PRN port 02/13/25 Unknown Rx topical cream access 30 days #30 grams Allergy/AdvReac Type Severity Reaction Status Date / Time sulfamethoxazole (From Allergy Unknown Verified 02/15/25 15:04 Bactrim) trimethoprim (From Bactrim) Allergy Unknown Verified 02/15/25 15:04 amoxicillin trihydrate (From AdvReac Nausea Verified 02/15/25 15:04 Augmentin) potassium clavulanate (From AdvReac Nausea Verified 02/15/25 15:04 Augmentin) Family History Mother Diabetes Cancer Father Diabetes Grandmother Cancer Surgical History (Updated 02/15/25 @ 15:17 by Jose Adorno) Previous back surgery History of hernia surgery History of appendectomy History of surgery on arm Social History Smoking Status: Former smoker quit date: 01/07/25 second hand exposure: Yes alcohol intake: never substance use type: does not use Recommendation Anesthesia Recommendation Anesthesia recommendation: OPTIMIZED for anesthesia
[2025-02-20] VITALS (9 sets, daily range): BP systolic 92–106; BP diastolic 63–75; PULSE 100–107; RESP 16–18; TEMP 36.5–36.8; O2SAT 93–96; BMI 19.8
[2025-02-20] MEDS: Lactated Ringers 1,000 ML 15 ML IV (09:45)
--- NOTE | 2025-02-20 10:05 | PCM.HP.BLA ---
History and Physical Date of Admission: 02/20/25 Intake Vital Signs 02/12/2514:31 02/14/2516:44 02/15/2514:11 Height 5 ft 9 in 5 ft 9 in 5 ft 9 in Weight: 138 lb BMI 20.3 BP 98/66 Blood Pressure Location Rt brachial Position Sitting Respiration 18 Pulse 112 H Pulse Source Monitor Temp 97.2 F L Temp Source Temporal Pulse Oximetry (%) 92 Oxygen Delivery Method room air Intake Visit Reasons: PORT PLACEMENT Chief Complaint: port placement Accompanied by: Is patient in pain?: Yes Allergies sulfamethoxazole (From Bactrim) Allergy (Verified 02/15/25 14:13) Unknowntrimethoprim (From Bactrim) Allergy (Verified 02/15/25 14:13) Unknownamoxicillin trihydrate (From Augmentin) Adverse Reaction (Verified 02/15/25 14:13) Nauseapotassium clavulanate (From Augmentin) Adverse Reaction (Verified 02/15/25 14:13) Nausea Medications ?Medication ?Instructions ?Recorded ?Confirmed ?Type rabeprazole 20 mg tablet,delayed 20 mg PO DAILY 01/20/15 02/15/25 History release (AcipHex) oxycodone 5 mg tablet 5 mg PO Q6H PRN pain 3 days #12 11/12/24 02/15/25 Rx tabs folic acid 1 mg tablet 1 mg PO QDAY 01/18/25 02/15/25 History ondansetron 4 mg disintegrating 4 mg PO Q8H PRN PRN Nausea 01/18/25 02/15/25 History tablet metformin 500 mg tablet,extended 1,000 mg PO QDAY 02/12/25 02/15/25 History release 24 hr dexamethasone 4 mg tablet 8 mg (2 x 4 mg) PO .COMPLEX #30 02/13/25 02/15/25 Rx tabs lidocaine-prilocaine 2.5 %-2.5 % 1 applic topical ONCE PRN port 02/13/25 02/15/25 Rx topical cream access 30 days #30 grams PFSH Medical History Encounter for education Surgical History History of hernia surgery History of appendectomy History of surgery on arm Family History Mother Diabetes CancerFather DiabetesGrandmother Cancer Social History Smoking Status: Former smoker quit date: 01/07/25 second hand exposure: Yes alcohol intake: never substance use type: does not use HPI HPI HPI: Patient is a 49-year-old male here for port placement for lung cancer. ROS General General: Yes weight change and fatigue; No appetite, colon cancer, breast cancer or weakness Endo Endocrine: Yes diabetes mellitus; No thyroid disease, thyroid cancer, Hair loss, heat intolerance or cold intolerance Skin Skin: No rash or changing moles Musc Musculoskeletal: Yes back problems; No arthritis, rheumatoid arthritis, gout or joint pain Cardio Cardiovascular: Yes heart attack; No murmur, pacemaker, heart disease, atrial fibrillation, high blood pressure, heart stent, palpitations, shortness of breath with exertion or chest pain Psych Psychiatric: No depression, anxiety or hearing voices Resp Respiratory: Yes shortness of breath, No sleep apnea, Yes cough, No COPD, No asthma, No emphysema and No wheezing Gastro Gastrointestinal: Yes abdominal pain, No nausea or vomiting, No diarrhea, Yes constipation, No blood in stool, Yes acid reflux, No hemorrhoids, No ulcers, No gallbladder problem and No black,tarry stools Maverick Hematologic: No blood thinners, No blood disorders, No bleeding, No anemia and No blood clots Neuro Neurologic: No numbness, No tingling and No weakness Exam Const General: cooperative Orientation: alert and oriented x3 HENMT Head: normal to inspection Neck Neck: normal visual inspection and full ROM Chest Chest palpation & inspection: normal inspection of the chest Resp Effort & Inspection: normal respiratory effort Auscultation: clear to auscultation bilaterally Cardio Rate: regular rate Rhythm: regular rhythm GI Inspection: non-distended Palpation: soft and nontender Skin General: no rashes or lesions noted Neuro General: patient alert and patient oriented x3 Extrem General: full ROM Psych Appearance: grossly normal Mental Status: mental status grossly normal Assessment and Plan Assessment and Plan (1) Encounter for adjustment and management of vascular access device: Status: Acute Plan: I discussed right chest port placement with the patient in detail. I discussed the procedure in detail as well as the risks of bleeding, infection, pneumothorax, line infection or DVT. Patient understands the risks and is willing to proceed. Hernan Vincent MD Pager: [facility] [address] [place] [address], [address] [place] [phone] Office: I have examined the patient and the H&P has been reviewed. There are no clinical changes since date of exam.
--- NOTE | 2025-02-20 10:07 | PCM.PRE.AN2 ---
ASA Classification* ASA Classification ASA Classification: 3 Assessment & Plan Anesthesia* Anesthesia Assessment Anesthesia Assessment: Discussed sedation and/or anesthesia options, risks, benefits, and alternatives with patient/parents/legal guardian/POA. Questions invited. The patient/parents/legal guardian/POA seems to understand and agrees to proceed with anesthesia plan. Reviewed the physical assessment, medical history, allergy history and patient home medications list prior to surgery/procedure/anesthetic and documented any changes. Performed airway and anesthesia risk assessments. Procedural Plan Add'l anesthesia plan details: Dr. Mane aware of lab values- OK to proceed with MAC Anesthesia Type Anesthesia Type: MAC History Source History Obtained from:: Patient and Chart Anesthesia Focused Assessment* Temperature: 98.3 F Pulse Rate: 107 Blood Pressure: 98/73 Respiratory Rate: 18 Pulse Ox: 93 Oxygen Delivery Method: Room Air Airway Assessment Mouth opens: >3 cm Mallampati Score: I Teeth Condition: Dentures (upper and lower out (at home)) Neck Range of motion (ROM): Full ROM Labs Anesthesia Preop lab: CBC WBC 9.7 K/mm3 (4.4-11.0) 02/12/25 15:48 02/12/25 RBC 4.01 M/mm3 (4.6-6.2) L 02/12/25 15:48 02/12/25 Hgb 10.4 g/dL (13.0-16.5) L 02/12/25 15:48 02/12/25 Hct 32.7 % (40-54) L 02/12/25 15:48 02/12/25 Plt Count 493 K/mm3 (150-450) H 02/12/25 15:48 02/12/25 CHEMISTRY Potassium 4.3 mmol/L (3.3-5.1) 02/12/25 15:48 02/12/25 Sodium 126 mmol/L (133-145) L 02/12/25 15:48 02/12/25 Magnesium 1.7 mg/dL (1.5-2.2) 02/12/25 15:48 02/12/25 Phosphorus 3.4 mg/dL (2.7-4.5) 02/12/25 15:48 02/12/25 BUN 11 mg/dL (4-19) 02/12/25 15:48 02/12/25 Creatinine 0.84 mg/dL (0.70-1.20) 02/12/25 15:48 02/12/25 Glucose 277 mg/dL (70-99) H 02/12/25 15:48 02/12/25 COAG PT 15.3 SECONDS (11.7-14.9) H 01/04/25 08:53 01/04/25 Pre-Assessment Diagnosis/Proposed Procedure Planned Operative Procedure(s): INSERTION VASCULAR PORT RIGHT POSSIBLE LEFT Anesthesia History 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 When Was Last Pacemaker Check QUESTION #4 FULL TEXT: You/Your Family Experience fever (hyperthermia) with Anesthesia Last Oral Intake Last Oral intake: Last Oral Intake NPO since 21:00 02/20/25 09:22 Meds taken in AM with sips of No 02/20/25 09:22 water? Meds patient instructed to take am of surgery PONV PONV - catering administrative assistant: PONV - catering administrative assistant Female No 02/15/25 15:09 HX of Motion Sickness No 02/15/25 15:09 HX of N/V After Surgery No 02/15/25 15:09 Non-Smoker Yes 02/15/25 15:09 Duration of Surgery greater No 02/15/25 15:09 than 60 minutes Number of Risk Factors 1 02/15/25 15:09 PONV Score Low Risk 02/15/25 15:09 Height & Weight Height & Weight: Anesthesia: Height & Weight Height 5 ft 9 in 02/20/25 09:22 Weight: 61 kg 02/20/25 09:22 Body Mass Index (BMI) 19.8 02/20/25 09:22 Respiratory Assessment Respiratory Assessment - catering administrative assistant: Respiratory Tract Infection Hx - catering administrative assistant Hx Respiratory Tract Infection No 02/15/25 15:09 STOP Sleep Apnea STOP Sleep Apnea - catering administrative assistant: STOP Sleep Apnea - catering administrative assistant Hx Hypertension No 02/15/25 15:09 Hx Sleep Apnea No 02/15/25 15:09 CPAP BIPAP Do you snore loudly (louder No 02/15/25 15:09 than talking or can be heard Do you often feel tired/ No 02/15/25 15:09 fatigued/ sleepy during daytime? Has anyone observed you stop No 02/15/25 15:09 breathing during sleep? STOP Results Negative 02/15/25 15:09 QUESTION #5 FULL TEXT : Do you snore loudly (louder than talking or can be heard through closed doors)? Tobacco Use History Tobacco Use History - catering administrative assistant: Tobacco Use History - catering administrative assistant Tobacco Use Smoking Status Former smoker 02/15/25 15:09 Hx Tobacco Use Yes 02/15/25 15:09 Years Smoking Packs Smoked per Day Smoking Cessation Date was Yes - quit smoking within 15 02/15/25 15:09 within the last 15 years years Hx Smoking Cessation Date Hx Smoking Cessation Counseling Hematologic Medial History Hematologic Hx - catering administrative assistant: Hematologic Medical Hx - nail puller Hx of Blood Transfusion No 02/15/25 15:09 Hx of Transfusion in last 3 No 02/15/25 15:09 Months Date of Last Transfusion (if within last 3 months) Ever experience any problems No 02/15/25 15:09 with transfusion(s)? Specify any problems Hx of Preganancy in last 3 N/A 02/15/25 15:09 Months Nurse Filling Out Transfusion [email or web address] 02/15/25 15:09 & Questions: Date: 02/15/25 02/15/25 15:09 Time: 15:11 02/15/25 15:09 Patient unable to answer at this time (ie. confused, unrespo /Reproduction History /Reproductive History - catering administrative assistant: /Reproductive Hx- catering administrative assistant Hx Now Gestational Age (in weeks): EDC: Hx Hx Para Hx Section SAB Active Medications Active Medications: Current Medications Generic Name Dose Route Start Last Admin Trade Name Freq PRN Reason Stop Dose Admin Clindamycin Phosphate 900 mg in 50 mls @ 75 mls/hr 02/20/25 11:00 Cleocin IV 02/20/25 11:39 INTRAOP ONE Lactated Ringer's 1,000 mls @ 15 mls/hr 02/20/25 09:15 02/20/25 09:45 IV 15 mls/hr .Q48H JENSEN Administration PFSH Medical History (Updated 02/15/25 @ 15:17 by Jose Adorno) Wears dentures Wears glasses Back pain Gastric reflux Former smoker History of stress test Cancer Encounter for education Home Medications ?Medication ?Instructions ?Recorded ?Last Taken ?Type rabeprazole 20 mg tablet,delayed 20 mg PO DAILY 01/20/15 11/11/24 History release (AcipHex) oxycodone 5 mg tablet 5 mg PO Q6H PRN pain 3 days #12 11/12/24 Unknown Rx tabs folic acid 1 mg tablet 1 mg PO QDAY 01/18/25 Unknown History ondansetron 4 mg disintegrating 4 mg PO Q8H PRN PRN Nausea 01/18/25 Unknown History tablet metformin 500 mg tablet,extended 1,000 mg PO QDAY 02/12/25 Unknown History release 24 hr dexamethasone 4 mg tablet 8 mg (2 x 4 mg) PO .COMPLEX #30 02/13/25 Unknown Rx tabs lidocaine-prilocaine 2.5 %-2.5 % 1 applic topical ONCE PRN port 02/13/25 Unknown Rx topical cream access 30 days #30 grams Allergy/AdvReac Type Severity Reaction Status Date / Time sulfamethoxazole (From Allergy Unknown Verified 02/20/25 09:22 Bactrim) trimethoprim (From Bactrim) Allergy Unknown Verified 02/20/25 09:22 amoxicillin trihydrate (From AdvReac Nausea Verified 02/20/25 09:22 Augmentin) potassium clavulanate (From AdvReac Nausea Verified 02/20/25 09:22 Augmentin) Family History Mother Diabetes Cancer Father Diabetes Grandmother Cancer Surgical History (Updated 02/15/25 @ 15:17 by Jose Adorno) Previous back surgery History of hernia surgery History of appendectomy History of surgery on arm Social History Smoking Status: Former smoker quit date: 01/07/25 second hand exposure: Yes alcohol intake: never substance use type: does not use Review of Systems (Anesthesia) ROS Narrative System reviewed and no additional complaints, except as documented.
[2025-02-20] MEDS: 0.9% Normal Saline (1000mL) 1,000 ML 15 ML IV (10:21)
[2025-02-20] MEDS: 0.9% Normal Saline (1000mL) 400 ML IV (10:55)
[2025-02-20] MEDS: Midazolam 2 MG/2 ML Syringe IV (10:56)
[2025-02-20] MEDS: fentaNYL 100 MCG/2 ML Ampul 50 MCG IV (11:12)
[2025-02-20] MEDS: Lidocaine 1% /Epi 1:100 (20ml) 20 ML Vial (11:23)
--- NOTE | 2025-02-20 11:30 | PCM.OPRPT ---
Operative Report (Standard) Operative Information Date of Procedure: 02/20/25 Pre-Operative Diagnosis: Need for vascular access for chemotherapy for lung cancer Post-Operative Diagnosis: Same Surgery/Procedure Performed: Ultrasound and fluoroscopy guided right chest port placement utilizing right IJ naval surface fire support planner: No Type of Anesthesia: Local MAC RN Documented Start/Stop Times: Operation Date: 02/20/25 11:00 Case Time Into Pre-Op 02/20/25 09:13 Out of Pre-Op 02/20/25 10:53 Anesthesia Start 02/20/25 10:55 Into Room 02/20/25 10:55 Procedure Start 02/20/25 11:13 Procedure End 02/20/25 11:26 Procedure Start Time: 11:13 Procedure Stop Time: : Select all DRAINS/GRAFTS/IMPLANTS that apply: Implanted device Implanted device details: 8 [place] PowerPort Estimated Blood Loss: 5 Specimen collected: No Description of surgery: After obtaining informed consent patient was brought back to the operating room MAC anesthesia was induced and the right chest and neck were prepped in normal sterile fashion. Ultrasound was used to evaluate both IJs and the right IJ was selected. Next, using a needle, the right IJ was accessed and a guidewire was passed on into the superior vena cava under fluoroscopy guidance. A small incision was made over the puncture site and the dilator introducer was placed over the guidewire. Next this was capped and the pocket was made for the port. 1% lidocaine with epinephrine was injected in the proposed port site. An incision was made with scalpel. Electrocautery was used to make a pocket under the skin and subcutaneous tissue. Hemostasis was obtained. Next, the catheter was tunneled up to the neck incision site and placed through the introducer. The peel-away introducer was removed and the position of the catheter was confirmed on fluoroscopy. Next, the catheter was trimmed and attached to the port with the locking device. Interrupted 2-0 Vicryl sutures were used to anchor the port to the chest wall and then the port was placed inside the pocket. The pocket was then flushed with saline and the port irrigated with saline. There was good blood return and the port flushed easily. Next, heparin was injected into the port. The skin was closed with subcutaneous interrupted 3-0 Vicryl sutures. A single 3-0 Vicryl sutures placed under the skin at the neck incision site. Steri-Strips were placed as well as op sites. Patient tolerated procedure well, was taken to PACU in stable condition. Chest x-ray will be obtained. Surgical Findings: None Complications Complications: No Admit VTE Documentation VTE Mechan Device Prophylaxis: SCD's
--- NOTE | 2025-02-20 11:31 | EX.PCM.DISCH ---
Discharge Instructions Procedure Port-A-Cath Diet Discharge Diet: Light diet - advance as tolerated (Pain medication may cause nausea. You should typically eat light foods as you take your pain medication.) Activity Discharge Activity: Return to Normal Activity and May Shower (with your bandage in place in 1-2 days after surgery. DO NOT SHOWER WHEN YOUR PORT IS ACCESSED.) Additional Activity Instructions:: Alternate ibuprofen and Tylenol for pain control Dressing / Incision Call your doctor if your incision/area has: Continuous Slow Oozing, Sudden Increased Bleeding, Increased Pain/ Swelling, Increased Redness and Foul Smelling Discharge Call your doctor if you observe: Fever of 101 or Higher Remove Dressing in: 2 days Cleanse incision/area with: Soap & Water Follow Up Care Please Follow Up With: Hernan Vincent MD When: as needed [phone] Test Results: Test results from this visit will be discussed in further detail at your follow-up appointment, if applicable. Discharge Plan Admission Attending Provider: Hernan Vincent Primary Care Provider: Cristian Barnett Instructions Print Language: Guatemalan Discharge Orders/Prescriptions Prescriptions: No Action folic acid 1 mg tablet 1 mg PO QDAY ondansetron 4 mg tablet,disintegrating 4 mg PO Q8H PRN PRN (Reason: Nausea) metformin 500 mg tablet extended release 24 hr 1,000 mg PO QDAY lidocaine-prilocaine 2.5-2.5 % cream 1 applic topical ONCE PRN (Reason: port access) 30 Days Qty: 30 2RF dexamethasone 4 mg tablet 8 mg PO .COMPLEX Qty: 30 2RF Rx Instructions: 8 mg orally ONLY on days 2 & 3 of chemotherapy cycle rabeprazole [AcipHex] 20 MG tablet 20 mg PO DAILY oxycodone 5 mg tablet 5 mg PO Q6H PRN (Reason: pain) 3 Days Qty: 12 0RF Referrals / Follow Up: Cristian Barnett MD [Primary Care Provider] - Disposition Disposition (needs filled in before D/C Order can be placed): Home, Self Care
--- NOTE | 2025-02-20 11:35 | PCM.POST.ANE ---
Anesthesia: Postop Eval I Current Vital Signs Temperature: 97.7 F Pulse Rate: 102 Blood Pressure: 92/70 Respiratory Rate: 16 Pulse Ox: 96 Oxygen Delivery Method: Room Air Assessment Airway patent: Yes Spontaneous unlabored respirations: Yes Mental status: Awake and Calm nausea: No Vomiting: No Anesthesia Complication: No Fluid Hydration Crystalloid volume administer (ml): 400 Total IV fluid infused: 400 Progress Note Anesthesia document: Postop Eval 1 completed: Yes
--- NOTE | 2025-02-20 11:40 | RAD_ITS ---
PROCEDURE: CXR FOR LINE PLACEMENT 02/20/2025 REASON FOR EXAM: LINE PLACEMENT TECHNIQUE: Frontal view of the chest. COMPARISON: January 04, 2025 FINDINGS: Hardware: Right Port-A-Cath has its tip at the junction of the right atrium and superior vena cava. EKG leads are seen. Heart: Normal Lungs: Innumerable pulmonary nodules are shown bilaterally. No new consolidation or pleural effusion. No pneumothorax. Bones: Midthoracic vertebral augmentation. RAD/CXR for Line Placement IMPRESSION: Satisfactory position of the right port. No pneumothorax. Reading Location: [id number]
== END 2025-02-20 12:11 | disposition home or self-care (01) ==
LOC: SDC 09:06 → AC 09:07
PROVIDERS: PCP Family Medicine; Referring Provider Surgery; Visit Provider Surgery
PROC: (CPT 36561; principal; 2025-02-20 10:45)
DX: Z45.2 Encounter for adjustment and management of vascular access device (principal); C34.31 Malignant neoplasm of lower lobe, right bronchus or lung; E11.9 Type 2 diabetes mellitus without complications; K21.9 Gastro-esophageal reflux disease without esophagitis; Z79.84 Long term (current) use of oral hypoglycemic drugs; Z79.899 Other long term (current) drug therapy; Z87.891 Personal history of nicotine dependence
CPT/HCPCS: 36561; 00532; 71045; 77001; 82962; C1788; J2405

== ENCOUNTER 2025-03-21 19:32 | Observation (INO) | payer MEDICARE, MEDICAID, SELFPAY ==
[2025-03-21 19:33] VITALS: BP 99/80; PULSE 138; RESP 22; TEMP 36.9; O2SAT 99; BMI 17.4
--- NOTE | 2025-03-21 20:33 | CT_ITS ---
PROCEDURE: ABDOMEN/PELVIS W IV CONT ONLY 03/21/2025 REASON FOR EXAM: ABDOMINAL PAIN TECHNIQUE: Procedure Code: [id number] Modality: CT Procedure: ABDOMEN/PELVIS W IV CONT ONLY Coronal and Sagittal reconstruction series were provided. One or more dose reduction techniques were used (e.g., Automated exposure control, adjustment of the mA and/or kV according to patient size, use of iterative reconstruction technique. COMPARISON: 11/12/2024. FINDINGS: Innumerable nodular lesions are noted throughout both lungs, increased in size and number since the previous study and compatible with metastatic lesions. There are nodular densities in the bilateral infrahilar regions, incompletely imaged and may represent enlarged lymph nodes. A nodular density adjacent to the distal esophagus likely represents an enlarged inferior mediastinal lymph node. A large lobulated mass is once again seen in the epigastric region, measuring a proximally 4.0 by 4.1 x 4.7 cm, increased in size since the previous study and compatible with either a primary malignancy or a conglomeration of enlarged lymph nodes. Multiple enlarged lymph nodes are noted within the upper abdomen, predominantly in the pericaval and para-aortic regions, similar to the previous study. 2 lobulated low densities with hazy margins are noted within the right lobe of the liver, measuring 3.1 cm and 2.7 cm, increased in size and/or new since the previous study and concerning for metastatic lesions. A large amount of stool is present throughout the colon. No evidence of a bowel obstruction. No pelvic lymphadenopathy is clearly identified. No acute osseous abnormality. No suspicious lytic nor sclerotic osseous lesion. CT/Abdomen/Pelvis W IV Cont ONLY IMPRESSION: 1. Innumerable pulmonary metastatic lesions, increased in size and number sinc e the previous study. 2. Nodular densities in the bilateral infrahilar regions may represent enlarge d lymph nodes. 3. Inferior mediastinal lymphadenopathy, new since the previous study. 4. Large lobulated epigastric mass, increased in size since the previous study and compatible with either primary malignancy or a conglomeration of enlarged lymph nodes. 5. Upper abdominal lymphadenopathy, similar to the previous study. 6. Lobulated low densities within the right lobe of the liver, increased in si ze and/or new since the previous study and concerning for metastatic lesions. 7. Large amount of stool throughout the colon. Reading Location: [id number]
--- NOTE | 2025-03-21 20:34 | EX.ED.DYSGE1 ---
HPI History of Present Illness Chief Complaint: Weakness Detail of Chief Complaint: Weakness and concern for dehydration Informant: patient Narrative Narrative: Patient presents to the emergency department with complaint of generalized weakness and concern for dehydration. Patient states that he came in at the request of his oncologist. Currently being treated for stage IV lung cancer. Last chemotherapy was 6 days ago. Complains of difficulty swallowing. He has lost almost 50 pounds since November when he was diagnosed. Has not had a bowel movement in the week. Describes upper abdomen pain. Denies fever. Denies chest pain or shortness of breath. [facility] Medical History Constipation Encounter for antineoplastic chemotherapy and immunotherapy Hyponatremia Wears dentures Wears glasses Back pain Gastric reflux Former smoker History of stress test Cancer Encounter for education Home Medications Medication Instructions Recorded Last Taken Type folic acid 1 mg tablet 1 mg PO QDAY 01/18/25 Unknown History metformin 500 mg tablet,extended 1,000 mg PO QDAY 02/12/25 Unknown History release 24 hr dexamethasone 4 mg tablet 8 mg (2 x 4 mg) PO .COMPLEX #30 02/13/25 Unknown Rx tabs lidocaine-prilocaine 2.5 %-2.5 % 1 applic topical ONCE PRN port 02/13/25 Unknown Rx topical cream access 30 days #30 grams ondansetron 8 mg disintegrating 8 mg PO Q8H PRN nausea and 03/01/25 Unknown Rx tablet vomiting #30 tabs oxycodone 5 mg tablet 5 - 10 mg PO Q6H PRN pain 03/01/25 Unknown History polyethylene glycol 3350 17 4 g PO ONCE #510 grams 03/01/25 Unknown Rx gram/dose oral powder (Miralax) sodium chloride 1,000 mg soluble 1,000 mg PO QDAY #30 tabs 03/01/25 Unknown Rx tablet Nebulizer machine #1 ea 03/07/25 Unknown Rx hydroxyzine pamoate 25 mg capsule 25 mg PO ONCE 03/07/25 Unknown History ipratropium 0.5 mg-albuterol 3 mg 3 ml inhalation Q4H PRN SOB &/OR 03/07/25 Unknown Rx (2.5 mg base)/3 mL nebulization WHEEZING #180 mL soln naloxone 4 mg/actuation nasal spray intranasal 03/07/25 Unknown History Allergy/AdvReac Type Severity Reaction Status Date / Time sulfamethoxazole (From Allergy Unknown Verified 03/21/25 19:37 Bactrim) trimethoprim (From Bactrim) Allergy Unknown Verified 03/21/25 19:37 amoxicillin trihydrate (From AdvReac Nausea Verified 03/21/25 19:37 Augmentin) potassium clavulanate (From AdvReac Nausea Verified 03/21/25 19:37 Augmentin) Family History Mother Diabetes Cancer Father Diabetes Grandmother Cancer Surgical History Previous back surgery History of hernia surgery History of appendectomy History of surgery on arm Social History (Updated 03/21/25 @ 20:13 by Sepideh Holguin) household members: significant other Smoking Status: Former smoker quit date: 01/07/25 second hand exposure: Yes alcohol intake: never substance use type: does not use ROS ROS ED Review of Systems ROS Unobtainable: other Constitutional Constitutional ED: Reports lethargy; Denies chills, fever(s), sweats or weight loss Eyes Eyes: Denies blurry vision, change in vision or diplopia ENT ENT ED: Denies rhinorrhea or sore throat Cardiovascular Cardiovascular: Denies chest pain, orthopnea or racing heartbeat Respiratory/Chest Respiratory/Chest: Denies cough, dyspnea, dyspnea on exertion, orthopnea or sputum Gastrointestinal Gastrointestinal: Reports abdominal pain, constipation and nausea; Denies diarrhea or vomiting Genitourinary Genitourinary ED: Denies dysuria, hematuria or urinary frequency Musculoskeletal Musculoskeletal: Denies arthralgias, back pain, myalgias or neck pain Integumentary Denies abscess, Abrasions or rash Neurologic Neurologic: Denies headache(s) or weakness Psychiatric Psychiatric: Denies anxiety, depression or suicidal thoughts Endocrine Endocrinology: Denies polydipsia, polyphagia or polyuria Hematologic/Lymphatic Hematologic/Lymphatic: Denies easy bleeding, easy bruising or lymphadenopathy Allergic/Immunologic Allergic/Immunologic ED: Denies mouth swelling, tongue swelling or urticaria EXAM Physical Exam Const Vital Signs: 03/21/25 19:33 03/21/25 20:13 03/21/25 21:32 Temperature 98.5 F Temperature Source Oral Pulse Rate 138 H 90 Respiratory Rate 22 H Respiratory Effort Normal Non-Labored Respiratory Pattern Normal Blood Pressure 99/80 85/79 L Blood Pressure Mean 86 81 Pulse Ox 99 100 Oxygen Delivery Method Room Air 03/21/25 23:01 Temperature Temperature Source Pulse Rate 70 Respiratory Rate 18 Respiratory Effort Respiratory Pattern Blood Pressure 100/80 Blood Pressure Mean 86 Pulse Ox 99 Oxygen Delivery Method Positive well nourished and well developed General Appearance ED: well developed and NAD HEENT Reports TM's clear and moist mucous membranes normocephalic and atraumatic; Negative for trauma or tenderness Tympanic Membrane ED: Yes TM's clear Eyes PERRL and EOMs intact bilaterally General Eye ED: Negative for pale conjunctiva or scleral icterus Neck no lymphadenopathy, supple and no JVD General: Negative for tenderness Chest Wall inspection of chest normal and palpation of chest normal Chest: Negative for tenderness Resp normal respiratory effort and clear to auscultation bilaterally Effort and Inspection: Negative for respiratory distress or pain with movement Auscultation: Negative for rhonchi, wheezes or diminished lung sounds Cardio regular rate, regular rhythm, S1 normal heart sound, S2 normal heart sound and no murmurs Peripheral Pulses: pulses 2+ throughout GI normal to inspection, nondistended, normoactive bowel sounds, soft to palpation, non-distended and no masses GI Narrative: Mild diffuse tenderness in the epigastric region. There is no rebound, rigidity, or peritoneal signs. No mass palpated. Back/Spine no CVA tenderness and no thoracic nor lumbar tenderness Extremity normal to inspection General Extremety ED: Negative for edema General Extremity: Negative for edema Neuro oriented x3, CN's II-XII intact bilaterally, no sensory deficits noted and gait normal Sensorium / Orientation: awake, alert, oriented to person, oriented to place and oriented to time Motor Exam: strength 5/5 throughout and strength abnormal Psych mental status grossly normal Skin no rashes or lesions noted and no wounds MDM MDM MDM Narrative Medical decision making narrative: Patient presents to the emergency department with abdominal pain and difficulty swallowing and eating. Being treated for stage IV lung cancer. IV line established. CBC with differential and patient awake at 4.7 with hemoglobin 9.3 and platelet count of 277. Chemistries unremarkable. LFTs unremarkable. He did have a slightly depressed sodium of 128. Urinalysis unremarkable. CT scan of the abdomen pelvis showed multiple lung nodules consistent with metastases. Patient had large lobulated epigastric mass which is increased in size from prior study and compatible with either primary malignancy or a conglomeration of enlarged lymph nodes. Lobulated densities noted within the lobe of the liver. Large amount of stool throughout the colon. Results discussed with patient. Discussed with hospitalist to evaluate patient for admission. Initially hypotensive on arrival and blood pressure improved with normal saline. Patient with progressive metastatic lung cancer disease will have to receive input from his oncologist and may be worth discussing hospice and palliative measures. Lab Data Attestation: I reviewed the patient's lab results. Labs: Laboratory Results - last 24 hr 03/21/25 03/21/25 21:02 22:22 WBC 4.7 RBC 3.55 L Hgb 9.3 L Hct 28.6 L MCV 80.6 MCH 26.2 L MCHC 32.5 RDW Std Deviation 46.9 H RDW Coeff of Ted 16.3 H Plt Count 277 MPV 11.6 Immature Gran % (Auto) 1.100 H Neut % (Auto) 73.1 H Lymph % (Auto) 14.6 L [place] % (Auto) 10.2 H Eos % (Auto) 0.2 Baso % (Auto) 0.8 Absolute Neuts (auto) 3.5 Absolute Lymphs (auto) 0.69 L Nucleated RBC % 0 Sodium 128 L Potassium 4.8 Chloride 94 L Carbon Dioxide 20.9 L Anion Gap 13 BUN 9 Creatinine 0.87 Estim Creat Clear Calc 76.24 Est GFR (MDRD) Non-Af 105 BUN/Creatinine Ratio 10.9 Glucose 212 H Calcium 8.9 Total Bilirubin 0.70 AST 29 ALT 29 Alkaline Phosphatase 92 Total Protein 6.7 Albumin 2.8 L Globulin 3.9 Albumin/Globulin Ratio 0.7 L Lipase 13 Urine Color Yellow Urine Clarity Clear Urine pH 6.5 Ur Specific [place] 1.005 Urine Protein 30 H Urine Glucose (UA) Normal Urine Ketones Negative Urine Occult Blood 10 H Urine Nitrite Negative Urine Bilirubin Negative Urine Urobilinogen 1 H Ur Leukocyte Esterase Negative Urine RBC 0-5 SEEN Urine WBC 0-5 SEEN Ur Squamous Epith Cells 0-5 SEEN Urine Bacteria 0 SEEN Urine Mucus 0 SEEN Radiography Diagnostic Testing: Clinical Impression(s) from Imaging Studies Abdomen/Pelvis CT 03/21/25 20:33 IMPRESSION: 1. Innumerable pulmonary metastatic lesions, increased in size and number since the previous study. 2. Nodular densities in the bilateral infrahilar regions may represent enlarged lymph nodes. 3. Inferior mediastinal lymphadenopathy, new since the previous study. 4. Large lobulated epigastric mass, increased in size since the previous study and compatible with either primary malignancy or a conglomeration of enlarged lymph nodes. 5. Upper abdominal lymphadenopathy, similar to the previous study. 6. Lobulated low densities within the right lobe of the liver, increased in size and/or new since the previous study and concerning for metastatic lesions. 7. Large amount of stool throughout the colon. Reading Location: [facility] Discharge Plan Triage Chief Complaint: Weakness ED Provider: Lindsay Clifton Dx/Rx/DC Orders Clinical Impression: Metastatic primary lung cancer, Hypotension, Weakness Prescriptions: No Action folic acid 1 mg tablet 1 mg PO QDAY metformin 500 mg tablet extended release 24 hr 1,000 mg PO QDAY oxycodone 5 mg tablet 5 - 10 mg PO Q6H PRN (Reason: pain) ondansetron 8 mg tablet,disintegrating 8 mg PO Q8H PRN (Reason: nausea and vomiting) Qty: 30 2RF sodium chloride 1,000 mg tablet,soluble 1,000 mg PO QDAY Qty: 30 0RF polyethylene glycol 3350 [Miralax] 17 gram/dose powder 4 g PO ONCE Qty: 510 0RF lidocaine-prilocaine 2.5-2.5 % cream 1 applic topical ONCE PRN (Reason: port access) 30 Days Qty: 30 2RF dexamethasone 4 mg tablet 8 mg PO .COMPLEX Qty: 30 2RF Rx Instructions: 8 mg orally ONLY on days 2 & 3 of chemotherapy cycle hydroxyzine pamoate 25 mg capsule 25 mg PO ONCE naloxone 4 mg/actuation spray,non-aerosol intranasal Patient Comments: Use 1 spray in one nostril as needed for overdose. May repeat every 2 to 3 min in alternating nostrils until medical assistance is available ipratropium-albuterol 0.5 mg-3 mg(2.5 mg base)/3 mL solution for nebulization 3 ml inhalation Q4H PRN Qty: 180 6RF (DME) Nebulizer machine See Rx Instructions .ROUTE .MEDSUPPLY Qty: 1 0RF Rx Instructions: As directed Primary Care Provider: Cristian Barnett Referrals: Cristian Barnett MD [Primary Care Provider] - Print Language: Peruvian Disposition Disposition: Acute Care Hospital [facility]
[2025-03-21] MEDS: 0.9% Normal Saline (1000mL) 1,000 ML 1000 ML IV (21:05)
[2025-03-21 21:08] LABS: Hematocrit 28.6 % (40-54); Hemoglobin 9.3 g/dL (13.0-16.5); Immature Granulocytes Count 0.050 X10^3/uL (0.0-0.0); Mean Corp Hgb Conc 32.5 g/dL (32-36); Mean Corpuscular Volume 80.6 fL (80-94); Mean Platelet Vol. 11.6 fl (6.2-12.0); NRBC Flagged by Analyzer 0 % (0-5); Platelet Count 277 K/mm3 (150-450); RBC Distribution Width CV 16.3 % (11.6-14.6); RBC Distribution Width SD 46.9 fl (35.1-43.9); Red Blood Count 3.55 M/mm3 (4.6-6.2); White Blood Count 4.7 K/mm3 (4.4-11.0)
[2025-03-21 21:32] VITALS: BP 85/79; PULSE 90; O2SAT 100
[2025-03-21 21:38] LABS: Lipase 13 U/L (13-75)
[2025-03-21 21:51] LABS: AST(SGOT) 29 U/L (<=37); Alanine Aminotransfer ALT/SGPT 29 U/L (<=46); Albumin, Serum 2.8 g/dL (3.5-5.0); Alkaline Phosphatase 92 U/L (40-129); Anion Gap 13 (5-15); BUN 9 mg/dL (4-19); BUN/Creat Ratio 10.9 RATIO (10-20); Calcium,Total 8.9 mg/dL (7.6-11.0); Carbon Dioxide 20.9 mmol/L (21.0-32.0); Chloride 94 mmol/L (98-108); Estimated Creatinine Clearance 76.24 ml/min (50-250); Globulin 3.9 g/dL (2.2-4.2); Glucose 212 mg/dL (70-99); Potassium 4.8 mmol/L (3.3-5.1)
[2025-03-21] MEDS: 0.9% Normal Saline (1000mL) 1,000 ML 999 ML IV (22:19)
[2025-03-21 22:27] LABS: Mucous, Urine 0 SEEN /hpf (<or=2+)
[2025-03-21 22:29] LABS: Color, Urine Yellow (Yellow); Glucose, Dipstick Normal (Normal); Ketone-Dipstick Negative (Negative); Leukocyte Esterase-Dipstick Negative /ul (Negative); Nitrite-Dipstick Negative (Negative); Occult Blood-Urine 10 /ul (Negative); Protein-Dipstick 30 mg/dl (Negative); Specific Gravity, Urine 1.005 (1.002-1.030); Urine Bilirubin Dipstick Negative (Negative)
[2025-03-21 22:45] LABS: Red Blood Cells-Urine 0-5 SEEN /hpf (0-5); Squamous Epithelial Cells - UA 0-5 SEEN /hpf (0-5)
[2025-03-21 23:01] VITALS: BP 100/80; PULSE 70; RESP 18; O2SAT 99
--- NOTE | 2025-03-21 23:18 | PCM.HP.STD ---
[facility] - General General Date of Admission: 03/22/25 Date of Service: 03/21/25 Chief Complaint: Generalized Weakness and Concern for Dehydration. HPI Narrative HYUN ELIAS, is a 49 M with a past medical history of DM-2; of unknown control on metformin twice daily, former tobacco abuse (quit 01/07/2025), history of hyponatremia of 126 mmol/L on February 12, 2025 and history of previously known stage IV metastatic lung cancer; with patient treated with immunotherapy and last antineoplastic chemotherapy ~6 days ago followed by Dr. Burleson of oncology who presents to [facility] ER after being sent in by his oncologist due to concerns regarding generalized weakness and dehydration. Mr. Elias reports he has lost ~50 pounds since November when he was first diagnosed with metastatic lung cancer in addition to not having a bowel movement for the past week. He admits to upper abdominal pain with nausea and decreased appetite plus lethargy but he denies related fever, chills, changes in vision, discharge from eyes, runny nose, sore throat, chest pain, palpitations, heart racing, lower extremity edema, shortness of breath, cough, dysuria, hematuria, urinary frequency, arthralgias, myalgias, headache or rash. In the ER he was noted to have mild Hyponatremia of 128 mmol/L with a normal BUN/creatinine ratio of 10.9 in the setting of Adult [id number] in the setting of previously known likely terminal lung cancer resistant to recent chemotherapy with the patient in need of palliative care consultation with CT scan this admission revealing innumerable pulmonary metastatic lesions increased in size and number since previous study with nodular densities in the bilateral infrahilar regions which may represent enlarged lymph nodes inferior mediastinal lymphadenopathy new since previous study with large lobulated epigastric mass which is increased in size since previous study and compatible with either primary malignancy or active glomera ration of enlarged lymph nodes with upper abdominal lymphadenopathy similar to previous study and loculated low densities within the Right lower lobe of the liver increased in size and/or new since previous study and concerning for metastatic lesions with a large amount of stool throughout the colon. He was then admitted to the general medical floor under observation status for ongoing care for state that is expected to be less than 2 midnights. [facility] Medical History Constipation Encounter for antineoplastic chemotherapy and immunotherapy Hyponatremia Wears dentures Wears glasses Back pain Gastric reflux Former smoker History of stress test Cancer Encounter for education Home Medications Medication Instructions Recorded Last Taken Type folic acid 1 mg tablet 1 mg PO QDAY vitamin deficiency 01/18/25 Unknown History metformin 500 mg tablet,extended 1,000 mg PO QDAY diabetes 02/12/25 Unknown History release 24 hr dexamethasone 4 mg tablet 8 mg (2 x 4 mg) PO .COMPLEX #30 02/13/25 Unknown Rx tabs lidocaine-prilocaine 2.5 %-2.5 % 1 applic topical ONCE PRN port 02/13/25 Unknown Rx topical cream access 30 days #30 grams ondansetron 8 mg disintegrating 8 mg PO Q8H PRN nausea and 03/01/25 Unknown Rx tablet vomiting #30 tabs oxycodone 5 mg tablet 5 - 10 mg PO Q6H PRN pain 03/01/25 Unknown History polyethylene glycol 3350 17 4 g PO ONCE #510 grams 03/01/25 Unknown Rx gram/dose oral powder (Miralax) sodium chloride 1,000 mg soluble 1,000 mg PO QDAY #30 tabs 03/01/25 Unknown Rx tablet Nebulizer machine #1 ea 03/07/25 Unknown Rx ipratropium 0.5 mg-albuterol 3 mg 3 ml inhalation Q4H PRN SOB &/OR 03/07/25 Unknown Rx (2.5 mg base)/3 mL nebulization WHEEZING #180 mL soln naloxone 4 mg/actuation nasal spray intranasal overdose 03/07/25 Unknown History Allergy/AdvReac Type Severity Reaction Status Date / Time sulfamethoxazole (From Allergy Unknown Verified 03/21/25 19:37 Bactrim) trimethoprim (From Bactrim) Allergy Unknown Verified 03/21/25 19:37 amoxicillin trihydrate (From AdvReac Nausea Verified 03/21/25 19:37 Augmentin) potassium clavulanate (From AdvReac Nausea Verified 03/21/25 19:37 Augmentin) Family History Mother Diabetes Cancer Father Diabetes Grandmother Cancer Surgical History Previous back surgery History of hernia surgery History of appendectomy History of surgery on arm Social History (Updated 03/21/25 @ 20:13 by Sepideh Holguin) household members: significant other Smoking Status: Former smoker quit date: 01/07/25 second hand exposure: Yes alcohol intake: never substance use type: does not use ROS ROS Narrative Review of Systems: Constitutional: Patient admits to lethargy and poor appetite but he denies fever or chills. Eyes: Patient denies changes in vision or discharge from eyes. ENT: Patient denies runny nose, sore throat or ear pain. Resp: Patient denies shortness of breath or cough. CV: Patient denies chest pain, palpitations, heart racing or lower extremity edema. GI: Patient admits to abdominal pain that is focused in the upper abdomen with nausea and constipation. He denies diarrhea or vomiting. : Patient denies dysuria, hematuria or urinary frequency. MSK: Patient denies arthralgias or myalgias. Skin: Patient denies rash, abscess, wounds or jaundice. Psych: Patient denies symptoms of uncontrolled depression or anxiety. Neuro: Patient denies headache, paresthesias or focal neurologic deficits. Allergy: Patient denies lip swelling, tongue swelling or urticaria. Hematology: Patient denies easy bleeding or easy bruisability. Endocrinology: Patient denies polyuria, polydipsia, polyphagia or heat/cold intolerance. 14 point ROS otherwise negative except for positives noted above in HPI. Vital Signs Vital Signs Vital Signs: 03/21/25 19:33 03/21/25 20:13 03/21/25 21:32 Temperature 98.5 F Temperature Source Oral Pulse Rate 138 H 90 Respiratory Rate 22 H Respiratory Effort Normal Non-Labored Respiratory Pattern Normal Blood Pressure 99/80 85/79 L Blood Pressure Mean 86 81 Pulse Ox 99 100 Oxygen Delivery Method Room Air 03/21/25 23:01 Temperature Temperature Source Pulse Rate 70 Respiratory Rate 18 Respiratory Effort Respiratory Pattern Blood Pressure 100/80 Blood Pressure Mean 86 Pulse Ox 99 Oxygen Delivery Method Weight Weight: 118 lb 4.8 oz Body Mass Index (BMI) 17.4 Physical Exam Const alert, oriented x3, no apparent distress and average body habitus Constitutional Narrative: Patient appears chronically ill but nontoxic. General Appearance: cooperative HEENT normocephalic, head/scalp atraumatic, hearing grossly normal bilaterally and moist oral mucous membranes Eyes PERRL, EOMs intact bilaterally and conjunctivae normal Neck no lymphadenopathy, supple and no JVD Resp normal respiratory effort, no retractions, no use of accessory muscles and clear to auscultation bilaterally Cardio regular rate and regular rhythm GI soft to palpation and non-distended GI Narrative: Mild diffuse tenderness over the epigastrium with no rebound, rigidity or peritoneal signs. No masses palpated. Extremity normal to inspection, full ROM and no clubbing, cyanosis or edema Skin Skin Narrative: Patient has no evidence of rash, abscess, wounds or jaundice. Neuro oriented x3, CN's II-XII intact bilaterally, moves all extremities and no focal motor deficits Sensorium / Orientation: awake, alert, oriented to person, oriented to place and oriented to time Speech: speech normal Psych affect normal Results Medical Records Data Attestation: I reviewed the patient's medical records Lab / Micro Data Attestation: I reviewed the patient's lab results. 03/21/25 21:02 03/21/25 21:02 Labs: Laboratory Results - last 24 hr 03/21/25 21:02: WBC 4.7, RBC 3.55 L, Hgb 9.3 L, Hct 28.6 L, MCV 80.6, MCH 26.2 L, MCHC 32.5, RDW Std Deviation 46.9 H, RDW Coeff of Ted 16.3 H, Plt Count 277, MPV 11.6, Immature Gran % (Auto) 1.100 H, Neut % (Auto) 73.1 H, Lymph % (Auto) 14.6 L, Maries % (Auto) 10.2 H, Eos % (Auto) 0.2, Baso % (Auto) 0.8, Absolute Neuts (auto) 3.5, Absolute Lymphs (auto) 0.69 L, Nucleated RBC % 0, Sodium 128 L, Potassium 4.8, Chloride 94 L, Carbon Dioxide 20.9 L, Anion Gap 13, BUN 9, Creatinine 0.87, Estim Creat Clear Calc 76.24, Est GFR (MDRD) Non-Af 105, BUN/Creatinine Ratio 10.9, Glucose 212 H, Calcium 8.9, Total Bilirubin 0.70, AST 29, ALT 29, Alkaline Phosphatase 92, Total Protein 6.7, Albumin 2.8 L, Globulin 3.9, Albumin/Globulin Ratio 0.7 L, Lipase 13 03/21/25 22:22: Urine Color Yellow, Urine Clarity Clear, Urine pH 6.5, Ur Specific Edgar 1.005, Urine Protein 30 H, Urine Glucose (UA) Normal, Urine Ketones Negative, Urine Occult Blood 10 H, Urine Nitrite Negative, Urine Bilirubin Negative, Urine Urobilinogen 1 H, Ur Leukocyte Esterase Negative, Urine RBC 0-5 SEEN, Urine WBC 0-5 SEEN, Ur Squamous Epith Cells 0-5 SEEN, Urine Bacteria 0 SEEN, Urine Mucus 0 SEEN Imaging Radiology Impression Abdomen/Pelvis CT 03/21/25 20:33 IMPRESSION: 1. Innumerable pulmonary metastatic lesions, increased in size and number since the previous study. 2. Nodular densities in the bilateral infrahilar regions may represent enlarged lymph nodes. 3. Inferior mediastinal lymphadenopathy, new since the previous study. 4. Large lobulated epigastric mass, increased in size since the previous study and compatible with either primary malignancy or a conglomeration of enlarged lymph nodes. 5. Upper abdominal lymphadenopathy, similar to the previous study. 6. Lobulated low densities within the right lobe of the liver, increased in size and/or new since the previous study and concerning for metastatic lesions. 7. Large amount of stool throughout the colon. 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 Adult [id number] with ~50# weight loss since November 2024 in the setting of previously known likely terminal lung cancer resistant to recent chemotherapy with the patient in need of palliative care consultation with CT scan this admission revealing innumerable pulmonary metastatic lesions increased in size and number since previous study with nodular densities in the bilateral infrahilar regions which may represent enlarged lymph nodes inferior mediastinal lymphadenopathy new since previous study with large lobulated epigastric mass which is increased in size since previous study and compatible with either primary malignancy or active glomera ration of enlarged lymph nodes with upper abdominal lymphadenopathy similar to previous study and loculated low densities within the Right lower lobe of the liver increased in size and/or new since previous study and concerning for metastatic lesions with a large amount of stool throughout the colon - Admit to general medical floor under observation status. Give fleets enema x 1 to relieve stool burden. Give ondansetron IV as needed for nausea and vomiting. Give acetaminophen as needed for [id number] (level 1-5/10) pain or fever. Give hydromorphone IV as needed for severe (level 6-10/10) pain. Finally, we will consult palliative care to see this patient on rounds in the a.m. for further recommendations regarding end-of-life care with help appreciated in advance. 2. Mild Hyponatremia of 128 mmol/L present on admission complicating #1 - Give NS IVF and then recheck level in AM to follow trend. 3. History of previously known stage IV metastatic lung cancer; with patient treated with immunotherapy and last antineoplastic chemotherapy ~6 days ago followed by Dr. Burleson of oncology - Noted. 4. DM-2; of unknown control on metformin twice daily - Stop metformin. Start clear liquid diet. Check FSBS q. AC/HS plus lowest intensity SSI. 5. Former tobacco abuse (quit 01/07/2025) - Noted. 6. DVT prophylaxis - Heparin 5,000U sq BID plus SCD's. Total time: Approximately (but not less than) 70 minutes. Charges/Coding Visit Charges OBSV E&M: 21462 Observ/hosp same date L2
--- NOTE | 2025-03-21 23:32 | PCA ---
Pt's girlfriend, Trudy Rice (authorized contact), requested phone call if pt is admitted and to give her bed number when we know.
--- OUTSIDE RECORDS SUMMARY | 2025-03-21 23:56 | XMS RPT_ITS | CCD ---
Author Organization [facility] Care Team Providers Care Diagram Clerk Name Role Phone DOLORES Carrillo RN, Sepideh Ha Unavailable Unavailekaterina Vincent MD, Hernan German Unavailable Luis Grossman Unavailable Unavailable Wendi NELSON, Cristian Melton Primary Care Provider Cristian Adame MD Primary Care Provider Cristian Adame MD Primary Care Provider Haagen 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Yolande Unavailable Suppan 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, Gilda A Unavailable Dr. Cristian Adame MD Primary Care Provider Dr. Dionicio Grimes DO Attending Provider Dr. Dionicio Grimes DO Emergency Provider Dr. Cristian Adame MD Referring Provider Dr. Denny Moffett DO Attending Provider [phone] Dr. Denny Moffett DO Referring Provider Dr. Theodore Lynch MD Other Provider UnavailDr. Naeem Hicks MD Other Provider Unavailable Theresa LINK-CTayler Attending Provider Theresa LINK-CTayler Referring Provider Dr. Regino Burleson MD Attending Provider Dr. Maria C Browning MD Other Provider Rosy LITIGATION PARALEGAL-C, Yelena Other Provider Dr. Regino Burleson MD Referring Provider Rosy LITIGATION PARALEGAL-C, Yelena Attending Provider Melisa NELSON, Dr. Becerra Attending Provider Melisa NELSON, Dr. Becerra Referring Provider Melisa NELSON, Dr. Becerra Other Provider Sarah Beth NELSON, Dr. Lacy Referring Provider Nallely NELSON, Dr. Lombardi Other Provider Rosy LITIGATION PARALEGAL-C, Yelena Other Provider Nallely NELSON, Dr. Lombardi Other Provider Rosy LITIGATION PARALEGAL-C, Yelena Other Provider Theresa LITIGATION PARALEGAL, Tayler Referring Unavailable Cardenas LITIGATION PARALEGAL, Tayler Attending Unavailable [place], [facility] Primary Care Unavailable Dionicio Grimes Attending Unavailable [place], [facility] Primary Care Unavailable Calabretta, Hernan Referring Unavailable Calabretta, Hernan Attending Unavailable [place], [facility] Primary Care Unavailable Cardenas LITIGATION PARALEGAL, Tayler Attending Unavailable [place], Cristian Referring Unavailable [place], [facility] Primary Care Unavailable Calabretta, Hernan Referring Unavailable Calabretta, Hernan Attending Unavailable Calabretta, Hernan Consulting Unavailable [place], [facility] Primary Care Unavailable Prah, Regino Attending Unavailable Cardenas LITIGATION PARALEGAL, Tayler Referring Unavailable [place], [facility] Primary Care Unavailable Rosy LITIGATION PARALEGAL, Yelena Attending Unavailable [place], [facility] Primary Care Unavailable [place], Cristian Referring Unavailable Prah, Regino Referring Unavailable Calabretta, Hernan Attending Unavailable [place], [facility] Primary Care Unavailable Rosy LITIGATION PARALEGAL, Yelena Attending Unavailable [place], [facility] Primary Care Unavailable Wendi, Cristian Referring Unavailable Cardenas LITIGATION PARALEGAL, Tayler Attending Unavailable [place], [facility] Primary Care Unavailable [place], Cristian Referring Unavailable PrahRegino Attending Unavailable [place], [facility] Primary Care Unavailable Wendi, Cristian Referring Unavailable BrownDenny Attending Unavailable [place], Cristian Referring Unavailable [place], [facility] Primary Care Unavailable Theodore Lynch Consulting Unavailable Brown, Denny Referring Unavailable BrownMarcik Attending Unavailable [place], Cristian Primary Care Unavailable Naeem Zambrano Consulting Unavailable Prajhoan, Regino Referring Unavailable PraRegino staples Attending Unavailable Rosy LITIGATION PARALEGAL, Yelena Consulting Unavailable [place], [facility] Primary Care Unavailable Maria C Browning Consulting Unavailable Brown, Denny Referring Unavailable BrownMarcik Attending Unavailable [place], Cristian Primary Care Unavailable CRISTIAN ADAME Primary Care Unavailable CRISTIAN ADAME Referring Unavailable CRISTIAN ADAME Referring Unavailable CRISTIAN ADAME Primary Care Unavailable CRISTIAN ADAME Attending Unavailable CRISTIAN ADAME Primary Care Unavailable WENDI, CRISTIAN Melton Referring Unavailable WENDICRISTIAN Velazquez Primary Care Unavailable CRISTIAN ADAME Attending Unavailable CRISTIAN ADAME Primary Care Unavailable WENDI, CRISTIAN Melton Primary Care Unavailable CRISTIAN ADAME Attending Unavailable CRISTIAN ADAME Primary Care Unavailable WENDI, CRISTIAN Melton Primary Care Unavailable GILDA NOONAN Attending Unavailable CRISTIAN ADAME Primary Care Unavailable WENDICRISTIAN Velazquez Referring Unavailable Allergies Allergy Classification Reported Allergen(s) Allergy Type Date of Onset Reaction(s) Facility (2 sources) amoxicillin / clavulanate drug allergy 12-03-19 [facility] Work Phone: (2 sources) sulfamethoxazole / trimethoprim drug allergy 12-03-19 [facility] Work Phone: (20 sources) Amoxicillin / Clavulanate; Translations: [AMOXICILLIN-POT CLAVULANATE] Drug Allergy 05-08-20 11 Diarrhea [facility] (20 sources) Sulfamethoxazole; Translations: [SULFAMETHOXAZOLE] Drug Allergy 06-27-20 12 Swelling [facility] (12 sources) Amoxicillin; Translations: [amoxicillin trihydrate] Drug Allergy 11-15-[address] [facility] (11 sources) Trimethoprim Drug Allergy 11-15-19 25 Unknown [facility] (12 sources) potassium clavulanate; Translations: [potassium clavulanate] Propensity to adverse reactions 11-15-[address] [facility] (1 source) Sulfamethoxazole Drug Allergy 03-08-20 25 [facility] (1 source) Trimethoprim Drug Allergy 03-08-20 25 [facility] Rep[facility] Medications Current Medications Medication Drug Class(es) Dates Sig (Normalized) Sig (Original) albuterol 0.833 mg/ml / ipratropium bromide 0.167 mg/ml inhalation solution (2 sources) Anticholinergic, beta2-Adrenergic Agonist Start: 03-07-2025 take 1 mL by inhalation every four hours as needed Ipratropium-Albute rol 0.5 mg-3 mg(2.5 mg base)/3 mL solution for nebulization Active 3 mL INHALATION EVERY 4 HOURS NEEDED 180 6 March 07, 2025 12:00am Chronic obstructive pulmonary disease Chronic obstructive pulmonary disease, unspecified SOB &/OR WHEEZING amoxicillin 50 mg/ml oral suspension (2 sources) Penicillin-class Antibacterial Start: 03-20-2025 End: 03-30-2025 take 10 mL by mouth every eight hours amoxicillin (AMOXIL) 250 mg/5 mL suspension Indications: Acute pharyngitis, unspecified etiology , Abnormal lung sounds Take 10 mL by mouth every 8 hours for 10 days. 300 mL 03/20/2025 03/30/2025 Active azithromycin 250 mg oral tablet (2 sources) Macrolide Antimicrobial Start: 11-01-2023 End: 11-06-2023 azithromycin (ZITHROMAX Z-JENN) 250 mg tablet Indications: Acute pharyngitis due to other specified organisms Take 2 tablets day one, then, 1 tablet daily until gone. 6 tablet 0 11/01/2023 11/06/2023 Active dexamethasone 4 mg oral tablet (6 sources) Corticosteroid Start: 02-13-2025 Dexamethasone 4 mg tablet Active 8 mg PO .COMPLEX 30 2 February 13, 2025 12:00am 8 mg orally ONLY on days 2 & 3 of chemotherapy cycle ferrous sulfate 325 mg oral tablet (15 sources) Start: 12-19-2024 End: 12-19-2025 take 1 tablet by mouth twice daily at mealtime ferrous sulfate 325 mg (65 mg iron) tablet Indications: Anemia, unspecified type Take 1 tablet by mouth two times a day with meals. 180 tablet 3 12/19/2024 12/19/2025 Active folic acid 1 mg oral tablet (20 sources) Start: 12-19-2024 End: 12-19-2025 take 1 tablet by mouth once daily Folic Acid 1 mg tablet Active 1 mg PO daily January 18, 2025 12:00am hydrOXYzine pamoate 25 mg oral capsule (3 sources) Antihistamine Start: 03-07-2025 take 1 capsule by mouth once Hydroxyzine Pamoate 25 mg capsule Active 25 mg PO ONCE March 07, 2025 12:00am Start: 12-21-2024 End: 12-21-2024 take 1 capsule by mouth once hydrOXYzine pamoate (VIST ARIL) 25 mg capsule Indications: Anxiety Take 1 capsule by mouth one time only for 1 dose. One hour before procedure. 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 180 tablet 1 01/30/2025 2025 Active Start: 11-01-2023 End: 11-22-2024 take 1 tablet by mouth once daily at breakfast metFORMIN ER (GLUCOPHAGE XR) 750 mg 24 hr tablet Indications: Controlled type 2 diabetes mellitus without complication, without long-term current use of insulin (HCC) Take 1 tablet by mouth daily with breakfast. 90 tablet 1 02/16/2024 11/22/2024 Discontinued (Other) naloxone hydrochloride 40 mg/ml nasal spray (16 sources) Opioid Antagonist Start: 02-16-2025 naloxone 4 m g/actuation nasal spray (NARCAN) Indications: Squamous cell carcinoma of lung, unspecified laterality (HCC) , Metastatic squamous cell carcinoma to bone (HCC) , Carcinoma metastatic to pancreas (HCC) , Hx of known metastasis to liver , Generalized abdominal pain , 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, unspecified laterality (HCC) Use 1 spray in one nostril as needed for overdose. May repeat every 2 to 3 min in alternating nostrils until medical assistance is available 2 each 1 02/16/2025 Active Start: 01-04-2025 naloxone 4 mg/ actuation nasal spray (NARCAN) Use 1 spray in one nostril as needed for overdose. May repeat every 2 to 3 min in alternating nostrils until medical assistance is available 2 each 1 01/04/2025 Active Naloxone 4 mg/actuation spray,non-aerosol (2 sources) Start: 03-07-2025 Naloxone 4 mg/actuation spray,non-aerosol Active INTRANASAL March 07, 2025 12:00am Nebulizer machine (2 sources) Start: 03-07-2025 Nebulizer machine Active 0 .ROUTE .MEDSUPPLY 1 0 March 07, 2025 12:00am Chronic obstructive pulmonary disease Chronic obstructive pulmonary disease, unspecified As directed ondansetron 8 mg disintegrating oral tablet (20 sources) Serotonin-3 Receptor Antagonist Start: 03-01-2025 take 1 tablet by mouth every eight hours as needed for nausea and vomiting Ondansetron 8 mg tablet,disintegrating Active 8 mg PO Q8H as needed for nausea and vomiting 30 2 March 01, 2025 12:00am 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 cancer metastatic to bone 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 Non-small cell lung cancer metastatic to liver Malignant neoplasm of lower lobe, right bronchus or lung Malignant neoplasm of unspecified part of unspecified bronchus or lung 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 30 tablet 02/17/2025 Active oxyCODONE hydrochloride 5 mg oral tablet (20 sources) Opioid Agonist Start: 01-04-2025 End: 01-09-2025 take 1 capsule by mouth every six hours as needed for pain oxyCODONE ir (OXYIR) 5 mg capsule Indications: Lymphadenopathy, abdominal , Chest wall pain , Hilar lymphadenopathy , Lung nodule Take 1 capsule by mouth every 6 hours as needed for pain for up to 5 days. 20 capsule 01/04/2025 01/09/2025 Active Start: 12-20-2024 End: 12-27-2024 take 1 capsule by mouth every six hours as needed for pain oxyCODONE ir (OXYIR) 5 mg capsule Indications: Lymphadenopathy, abdominal , Chest wall pain , Hilar lymphadenopathy , Lung nodule Take 1 capsule by mouth every 6 hours as needed for pain for up to 7 days. 28 capsule 12/20/2024 12/27/2024 Active Start: 11-12-2024 End: 03-15-2025 take 1 tablet by mouth every six hours as needed oxyCODONE IR (ROXICODONE) 5 mg immediate release tablet Indications: Squamous cell carcinoma of lung, unspecified laterality (HCC) , Metastatic squamous cell carcinoma to bone (HCC) , Carcinoma metastatic to pancreas (HCC) , Hx of known metastasis to liver , Generalized abdominal pain , 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, unspecified laterality (HCC) Take 1-2 tablets by mouth every 6 hours as needed for pain for up to 14 days. 56 tablet 03/01/2025 Active polyethylene glycol 3350 10062 mg powder for oral solution (2 sources) Osmotic Laxative Start: 03-01-2025 Polyethylene Glycol 3350 (Miralax) 17 gram/dose powder Active 4 g PO ONCE 510 March 01, 2025 12:00am Constipation Constipation, unspecified RABEprazole sodium 20 mg delayed release oral tablet (20 sources) Proton Pump Inhibitor Start: 01-20-2015 End: 03-01-2025 take 1 tablet by mouth once daily RABEprazole (ACIPHEX) 20 mg tablet Take 1 tablet by mouth once daily. 90 tablet 3 01/30/2025 Active Comment on above: Take 1 tablet by [facility] once daily. sodium chloride 1000 mg oral tablet (2 sources) Start: 03-01-2025 take 1 tablet by mouth once daily Sodium Chloride 1,000 mg tablet,soluble Active 1000 mg PO daily 30 March 01, 2025 12:00am Hyponatremia Hypo-osmolality and hyponatremia triamcinolone acetonide 1 mg/ml topical cream (3 [...] Discontinued cyclobenzaprine hydrochloride 10 mg oral tablet (11 sources) Muscle Relaxant Start: 04-01-2019 End: 11-12-2024 take 1 tablet by mouth three times daily as needed for muscle spasms Cyclobenzaprine 10 MG tablet Discontinued 10 mg PO 3 TIMES DAILY NEEDED as needed for Muscle Spasm April 01, 2019 12:00am November 12, 2024 8:44am diclofenac sodium 50 mg delayed release oral tablet (11 sources) Nonsteroidal Anti-inflammatory Drug Start: 04-01-2019 End: 11-12-2024 take 1 tablet by mouth once daily Diclofenac Sodium 50 MG tablet,delayed release (DR/EC) Discontinued 50 mg PO DAILY April 01, 2019 12:00am November 12, 2024 8:44am naproxen 500 mg oral tablet (11 sources) Nonsteroidal Anti-inflammatory Drug Start: 04-01-2019 End: 11-12-2024 [...] Date Documented Da te Episodic/Chronic Abdominal pain (19 sources) Generalized abdominal pain; Translations: [Generalized abdominal pain] Onset: 01-04-2025 Episodic Allergic reactions (1 source) Allergic contact dermatitis; Translations: [Allergic contact dermatitis due to other agents] 11-01-2023 Episodic Anxiety disorders (1 source) Anxiety; Translations: [Anxiety disorder, unspecified] 12-21-2024 Chronic Blindness and vision defects (20 sources) Legal blindness; Translations: [Legal blindness, as defined in [place]] Onset: 8 05-27-2018 Chronic Cancer of bronchus; lung (20 sources) 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 Discussed NSCLC squa mous cell type, stage IV(cTx N3 M1) Lungs, bones, prognosis which is poor but depends on response to chemotherapy and Immunotherapy. Squamous cell type, stage IV(cTx N3 M1) Lungs, bones on chemotherapy and Immunotherapy.Started Keytruda, Carboplatin and Abraxane on 03/01/2025.Comes for C1D8 Abraxane.Counts reviewed, OK for therapy. Cancer; other and unspecified primary (1 source) History of cancer metastatic to liver; Translations: [Personal history of malignant neoplasm of other organs and systems] 03-01-2025 Episodic Cancer; other and unspecified primary (1 source) Personal history of malignant neoplasm of other organs and systems; Translations: [Hx of known metastasis to liver] Onset: 5 Episodic Chronic obstructive pulmonary disease and bronchiectasis (6 sources) Chronic obstructive lung disease; Translations: [Chronic obstructive pulmonary disease, unspecified] Onset: 5 03-07-2025 Chronic Diabetes mellitus without complication (8 sources) Type 2 diabetes mellitus without complication; Translations: [Type 2 diabetes mellitus without complications] Onset: 5 11-01-2023 Chronic Disorders of lipid metabolism (5 sources) Mixed hyperlipidemia; Translations: [Mixed hyperlipidemia] Onset: 5 11-01-2023 Chronic Esophageal disorders (20 sources) Gastroesophageal reflux disease; Translations: [Gastro-esophageal reflux disease without esophagitis] Onset: 8 06-19-2008 Chronic Fluid and electrolyte disorders (4 sources) Hyponatremia; Translations: [Hypo-osmolality and hyponatremia] 03-01-2025 Episodic Genitourinary symptoms and ill-defined conditions (4 sources) Tony hematuria; Translations: [Gross hematuria] Onset: 5 12-15-2024 Episodic Headache; including migraine (20 sources) Migraine; Translations: [Migraine, unspecified, not intractable, without status migrainosus] Onset: 3 05-25-2013 Chronic Hyperplasia of prostate (20 sources) Benign prostatic hyperplasia with lower urinary tract symptoms; Translations: [Benign localized hyperplasia of prostate with urinary obstruction and other lower urinary tract symptoms (LUTS)] Onset: 1 Resolved: 1 05-08-2011 Chronic Maintenance chemotherapy; radiotherapy (5 sources) Patient encounter status; Translations: [Encounter for antineoplastic chemotherapy] 03-01-2025 Chronic Mood disorders (20 sources) Dysthymia; Translations: [Dysthymic disorder] Onset: 8 Resolved: 8 05-08-2008 Chronic Other aftercare (1 source) Encounter for adjustment and management of vascular access device; Translations: [Encounter for adjustment and management of vascular access device] Onset: 5 Episodic Other aftercare (1 source) senior care (current) use of insulin; Translations: [Controlled type 2 diabetes mellitus without complication, with long-term current use of insulin (HCC)] Onset: 5 Episodic Other circulatory disease (1 source) Abnormal chest sounds; Translations: [Other specified symptoms and signs involving the circulatory and respiratory systems] 03-20-2025 Episodic Other gastrointestinal disorders (5 sources) Acute constipation; Translations: [Constipation, unspecified] 12-15-2024 Episodic Other gastrointestinal disorders (2 sources) Constipation; Translations: [Constipation, unspecified] 03-01-2025 Episodic Other lower respiratory disease (20 sources) Multiple nodules of lung; Translations: [Other nonspecific abnormal finding of lung field] 11-14-2024 Episodic Other lower respiratory disease (5 sources) Nodule of lung; Translations: [Solitary pulmonary nodule] 12-20-2024 Episodic Other lower respiratory disease (4 sources) Dyspnea; Translations: [Shortness of breath] 03-07-2025 Episodic Other lower respiratory disease (4 sources) Hypoxia; Translations: [Hypoxemia] 03-07-2025 Episodic Other lower respiratory disease (1 source) Shortness of breath; Translations: [Shortness of breath] Onset: Episodic Other lower respiratory disease (1 source) Hypoxemia; Translations: [Hypoxemia] Onset: Episodic Other nervous system disorders (1 source) Chronic pain syndrome; Translations: [Chronic pain syndrome] Onset: Chronic Other nervous system disorders (1 source) Paresthesia; Translations: [Paresthesia of skin] Episodic Other non-traumatic joint disorders (1 source) Pain in right knee; Translations: [Pain in joint, lower leg] 11-01-2023 Episodic Other nutritional; endocrine; and metabolic disorders (17 sources) Unintentional weight loss; Translations: [Abnormal weight loss] 01-18-2025 Episodic Other screening for suspected conditions (not mental disorders or infectious disease) (20 sources) CT of chest abnormal; Translations: [Abnormal findings on diagnostic imaging of other specified body structures] 11-14-2024 Chronic Other screening for suspected conditions (not mental disorders or infectious disease) (20 sources) Patient encounter status; Translations: [Encounter for screening for malignant neoplasm of colon] Episodic Other skin disorders (1 source) Night sweats; Translations: [Generalized hyperhidrosis] 12-15-2024 Episodic Other upper respiratory infections (2 sources) Acute pharyngitis; Translations: [Acute pharyngitis due to other specified organisms] 11-01-2023 Episodic Residual codes; unclassified (20 sources) Harmful pattern of use of nicotine; Translations: [Tobacco use] 01-18-2025 Episodic Secondary malignancies (3 sources) Secondary malignant neoplasm of bone; Translations: [Secondary malignant neoplasm of bone and bone marrow] Onset: 5 03-01-2025 Chronic Secondary malignancies (2 sources) Secondary malignant neoplasm of other digestive organs; Translations: [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] Onset: 5 03-01-2025 Chronic Secondary malignancies (1 source) Secondary malignant neoplasm of mediastinum; Translations: [Secondary malignant neoplasm of mediastinum] Onset: Chronic Secondary malignancies (1 source) Secondary malignant neoplasm of liver and intrahepatic bile duct; Translations: [Secondary malignant neoplasm of liver and intrahepatic bile duct] Onset: Chronic Spondylosis; intervertebral disc disorders; other back problems (11 sources) Low back pain; Translations: [Lumbar back pain] 04-10-2019 Episodic Unclassified (1 source) No current problems or disability 12-02-2016 Unclassified (17 sources) 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 Unclassified (10 sources) C34.31 - Malignant neoplasm of lower lobe, right bronchus or lung Unclassified (9 sources) x 01-18-2025 Unclassified (9 sources) 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 Unclassified (20 sources) Non-small cell lung cancer metastatic to liver Unclassified (16 sources) Non-small cell lung cancer metastatic to bone Unclassified (8 sources) C34.90 - Malignant neoplasm of unspecified part of unspecified bronchus or lung,C78.1 - Secondary malignant neoplasm of mediastinum,C78.7 - Secondary malignant neoplasm of liver and intrahepatic bile duct,C79.51 - Secondary malignant neoplasm of bone,C34.31 - Malignant neoplasm of lower lobe, right bronchus or lung Unclassified (8 sources) C34.90 - Malignant neoplasm of unspecified part of unspecified bronchus or lung,C78.1 - Secondary malignant neoplasm of mediastinum,C78.7 - Secondary malignant neoplasm of liver and intrahepatic bile duct,C34.31 - Malignant neoplasm of lower lobe, right bronchus or lung,C79.51 - Secondary malignant neoplasm of bone Unclassified (7 sources) C34.90 - Malignant neoplasm of unspecified part of unspecified bronchus or lung,C78.7 - Secondary malignant neoplasm of liver and intrahepatic bile duct Past or Other Problems Problem Classification Problem Date Documented Da te Episodic/Chronic Abdominal hernia (20 sources) Left inguinal hernia ; Translations: [Diaphragmatic hernia] Onset: 07-16-2008 12-03-2016 Episodic Deficiency and other anemia (20 sources) Anemia; Translations: [Anemia, unspecified] Onset: 12-19-2024 12-18-2024 Episodic Deficiency and other anemia (1 source) Anemia, unspecified; Translations: [Anemia, unspecified type] Onset: 12-18-2024 Episodic Esophageal disorders (20 sources) Esophagitis; Translations: [Esophagitis, unspecified] Onset: 07-16-2008 07-16-2008 Episodic Lymphadenitis (20 sources) Lymphadenopathy; Translations: [Generalized enlarged lymph nodes] Onset: 12-15-2024 11-12-2024 Episodic Mycoses (20 sources) Onychomycosis due to dermatophyte ; Translations: [Tinea unguium] Onset: 09-13-2008 09-13-2008 Episodic Nonspecific chest pain (7 sources) Chest wall pain; Translations: [Other chest pain] Onset: 12-15-2024 12-15-2024 Episodic Nutritional deficiencies (20 sources) Folic acid deficiency; Translations: [Deficiency of other specified B group vitamins] Onset: 12-19-2024 12-19-2024 Episodic Other aftercare (1 source) Encounter for therapeutic drug level monitoring; Translations: [Medication monitoring encounter] Onset: 12-15-2024 Episodic Other fractures (20 sources) Closed fracture thoracic vertebra; Translations: [Unspecified fracture of unspecified thoracic vertebra, initial encounter for closed fracture] Onset: 11-23-2008 11-23-2008 Episodic Other gastrointestinal disorders (1 source) Constipation, unspecified; Translations: [Acute constipation] Onset: 12-15-2024 Episodic Other lower respiratory disease (2 sources) Other nonspecific abnormal finding of lung field; Translations: [Other nonspecific abnormal finding of lung field] Onset: 12-15-2024 Episodic Other skin disorders (1 source) Generalized hyperhidrosis; Translations: [Night sweats] Onset: 12-15-2024 Episodic Residual codes; unclassified (20 sources) Tobacco user; Translations: [Tobacco use] Onset: 06-10-2011 06-10-2011 Episodic Residual codes; unclassified (2 sources) Tobacco use; Translations: [Tobacco use] Onset: 06-10-2011 Episodic Sprains and strains (20 sources) Sprain of foot; Translations: [Unspecified sprain of unspecified foot, initial encounter] Onset: 09-27-2008 09-27-2008 Episodic Results Test Name Value Interpretation Reference Range Facility [facility] 03-19-2025 [facility] FACEMIRE,HYUN Low ([id number]) 1975 M Date Time Provider Department 03/19/25 CRISTIAN ADAME During your visit today, we recorded the following information about you: Marshall Tran RN 03/19/2025 8:12 AM Signed Significant other (Trudy) calls to request appointment for patient for sore throat. Trudy reports no fever, redness to the throat, difficulty swallowing, headache, or increased difficulty breathing. She reports that she looked in the back of patients throat and wasn't sure if she saw a small white patch and would just like some one to take a look. Per nurse triage, patient should be seen within 24 hours but Trudy has to arrange transportation so requesting tomorrow afternoon. Scheduled at 140 pm per request. Marshall Tran RN Allergies As of Date: 03/19/2025 Noted Allergy Reaction AUGMENTIN (AMOXICILLIN-POT CLAVUL*05/08/2011 6 - Diarrhea BACTRIM (SULFAMETHOXAZOLE) 06/27/2012 7 - Swelling Date Reviewed: 02/16/2025 Reviewed by: Gi Gregory - Fully Assessed Reason for Visit: Patient Update [1234] Prescriptions as of 03/19/2025 - oxyCODONE IR (ROXICODONE) 5 mg immediate release tablet Take 1-2 tablets by mouth every 6 hours as needed for pain for up to 14 days. - ondansetron orally disintegrating (ZOFRAN ODT) 4 mg disintegrating tablet Take 1 tablet by mouth every 8 hours as needed for nausea/vomiting. - naloxone 4 mg/actuation nasal spray (NARCAN) Use 1 spray in one nostril as needed for overdose. May repeat every 2 to 3 min in alternating nostrils until medical assistance is available - blood sugar diagnostic (BLOOD GLUCOSE TEST) test strip Test blood sugar(s) once daily. Dx: DM type II. Insulin: No - Lancets Use with blood glucose test once daily - metFORMIN ER (GLUCOPHAGE XR) 500 mg 24 hr tablet Take 2 tablets by mouth once daily. - RABEprazole (ACIPHEX) 20 mg tablet Take 1 tablet by mouth once daily. Meds Comments as of 04/03/2019: Uses medication to help with bladder control, unsure what medication is. Problem List As Of Date 03/19/2025 Noted Resolved DYSTHYMIC DISORDER [F34.1] Depressive disorder, [...] [D64.9] 12/19/2024 Folic acid deficiency [E53.8] 12/19/2024 Primary malignant neoplasm of lung metastatic t*01/25/2025 Generalized abdominal pain [R10.84] 01/25/2025 Encounter Status:Closed by MARSHALL TRAN on 03/19/25 Normal [facility] CBC W/Diff, Automatedon 09-0 Absolute Lymph 0.84 X10 3/uL Normal 0.83-4.51 [facility] Comment on above: Performed By: #### L 501.5500, L501.7300, L501.7400 #### [facility] [address] [place], [address] Absolute Neut 8.9 X10 3/uL High 2.0-7.7 [facility] Comment on above: Performed By: #### L 501.5500, L501.7300, L501.7400 #### [facility] [address] [place], [address] Basophils/100 WBC (Bld) 0.4 % Normal 0-1 [facility] Comment on above: Performed By: #### L 501.5500, L501.7300, L501.7400 #### [facility] [address] [place], [address] Eosinophils/100 WBC (Bld) 0.3 % Normal 0-5 [facility] Comment on above: Performed By: #### L 501.5500, L501.7300, L501.7400 #### [facility] [address] [place], [address] Erythrocyte distribution width (RBC) [Ratio] 16.3 % High 11.6-14.6 [facility] Comment on above: Performed By: #### L 501.5500, L501.7300, L501.7400 #### [facility] [address] [place], [address] Hematocrit (Bld) [Volume fraction] 27.3 % Low 40-54 [facility] Comment on above: Performed By: #### L 501.5500, L501.7300, L501.7400 #### [facility] [address] [place], [address] Hemoglobin (Bld) [Mass/Vol] 8.9 g/dL Low 13.0-16.5 [facility] Comment on above: Performed By: #### L 501.5500, L501.7300, L501.7400 #### [facility] [address] [place], [address] IG% 1.400 High 0.0-0.9 [facility] Comment on above: Result Comment: IG% - Immature Granulocytes (promyelocytes, myelocytes and metamyelocytes) > 1% indicates that a LEFT SHIFT is Present. Performed By: #### L 501.5500, L501.7300, L501.7400 #### [facility] [address] [place], [address] Lymphocytes/100 WBC (Bld) 7.5 % Low 19-41 [facility] Comment on above: Performed By: #### L 501.5500, L501.7300, L501.7400 #### [facility] [address] [place], [address] MCH (RBC) [Entitic mass] 26.0 pg Low 27.0-32.0 [facility] Comment on above: Performed By: #### L 501.5500, L501.7300, L501.7400 #### [facility] [address] [place], [address] MCHC (RBC) [Mass/Vol] 32.6 g/dL Normal 32-36 [facility] Comment on above: Performed By: #### L 501.5500, L501.7300, L501.7400 #### [facility] [address] [place], [address] MCV (RBC) [Entitic vol] 79.8 fL Low 80-94 [facility] Comment on above: Performed By: #### L 501.5500, L501.7300, L501.7400 #### [facility] [address] [place], [address] Monocytes/100 WBC (Bld) 10.4 % High 0-10 [facility] Comment on above: Performed By: #### L 501.5500, L501.7300, L501.7400 #### [facility] [address] [place], [address] Neutrophils/100 WBC (Bld) 80.0 % High 47-70 [facility] Comment on above: Performed By: #### L 501.5500, L501.7300, L501.7400 #### [facility] [address] [place], [address] Nucleated RBC (Bld) [#/Vol] 0 10*3/uL Normal 0-5 [facility] Comment on above: Performed By: #### L 501.5500, L501.7300, L501.7400 #### [facility] [address] [place], [address] Platelet mean volume (Bld) [Entitic vol] 10.7 fL Normal 6.2-12.0 [facility] Comment on above: Performed By: #### L 501.5500, L501.7300, L501.7400 #### [facility] [address] [place], [address] Platelets (Bld) [#/Vol] 331 10*3/uL Normal 150-450 [facility] Comment on above: Performed By: #### L 501.5500, L501.7300, L501.7400 #### [facility] [address] [place], [address] RBC (Bld) [#/Vol] 3.42 10*6/uL Low 4.6-6.2 [facility] Comment on above: Performed By: #### L 501.5500, L501.7300, L501.7400 #### [facility] [address] [place], [address] RDW SD 46.6 fl High 35.1-43.9 [facility] Comment on above: Performed By: #### L 501.5500, L501.7300, L501.7400 #### [facility] [address] [place], [address] WBC (Bld) [#/Vol] 11.1 10*3/uL High 4.4-11.0 [facility] Comment on above: Performed By: #### L 501.5500, L501.7300, L501.7400 #### [facility] [address] [place], [address] Absolute lymphocyte countOrd ered By: Maria C Browning on 03-08-2025 Lymphocytes Auto (Unsp spec) [#/Vol] 0.90 10*3/uL 0.83-4.51 [facility] Absolute neutrophil countOrd ered By: Maria C Browning on 03-08-2025 Neutrophils (Bld) [#/Vol] 11.3 10*3/uL High 2.0-7.7 [facility] Automated lymphocyte count a s percentage of total leukocytesOrdered By: Maria C Browning on 03-08-2025 Lymphocytes/100 WBC Auto (Unsp spec) 6.5 % Low 19-41 [facility] Basophil percentageOrdered B y: Maria C Browning on 03-08-2025 Basophils/100 WBC (Bld) 0.3 % 0-1 [facility] CBC W/Diff, Automatedon 02-10 Absolute Lymph 0.90 X10 3/uL Normal 0.83-4.51 [facility] Comment on above: Performed By: #### L 501.5500, L501.7300, L501.7400 #### [facility] [address] [place], [address] Absolute Neut 11.3 X10 3/uL High 2.0-7.7 [facility] Comment on above: Performed By: #### L 501.5500, L501.7300, L501.7400 #### [facility] [address] [place], [address] Basophils/100 WBC (Bld) 0.3 % Normal 0-1 [facility] Comment on above: Performed By: #### L 501.5500, L501.7300, L501.7400 #### [facility] [address] [place], [address] Eosinophils/100 WBC (Bld) 0.4 % Normal 0-5 [facility] Comment on above: Performed By: #### L 501.5500, L501.7300, L501.7400 #### [facility] [address] [place], [address] Erythrocyte distribution width (RBC) [Ratio] 15.7 % High 11.6-14.6 [facility] Comment on above: Performed By: #### L 501.5500, L501.7300, L501.7400 #### [facility] [address] [place], [address] Hematocrit (Bld) [Volume fraction] 29.3 % Low 40-54 [facility] Comment on above: Performed By: #### L 501.5500, L501.7300, L501.7400 #### [facility] [address] [place], [address] Hemoglobin (Bld) [Mass/Vol] 9.6 g/dL Low 13.0-16.5 [facility] Comment on above: Performed By: #### L 501.5500, L501.7300, L501.7400 #### [facility] [address] [place], [address] IG% 1.700 High 0.0-0.9 [facility] Comment on above: Result Comment: IG% - Immature Granulocytes (promyelocytes, myelocytes and metamyelocytes) > 1% indicates that a LEFT SHIFT is Present. Performed By: #### L 501.5500, L501.7300, L501.7400 #### [facility] [address] [place], [address] Lymphocytes/100 WBC (Bld) 6.5 % Low 19-41 [facility] Comment on above: Performed By: #### L 501.5500, L501.7300, L501.7400 #### [facility] [address] [place], [address] MCH (RBC) [Entitic mass] 26.0 pg Low 27.0-32.0 [facility] Comment on above: Performed By: #### L 501.5500, L501.7300, L501.7400 #### [facility] [address] [place], [address] MCHC (RBC) [Mass/Vol] 32.8 g/dL Normal 32-36 [facility] Comment on above: Performed By: #### L 501.5500, L501.7300, L501.7400 #### [facility] [address] [place], [address] MCV (RBC) [Entitic vol] 79.4 fL Low 80-94 [facility] Comment on above: Performed By: #### L 501.5500, L501.7300, L501.7400 #### [facility] [address] [place], [address] Monocytes/100 WBC (Bld) 9.3 % Normal 0-10 [facility] Comment on above: Performed By: #### L 501.5500, L501.7300, L501.7400 #### [facility] [address] [place], [address] Neutrophils/100 WBC (Bld) 81.8 % High 47-70 [facility] Comment on above: Performed By: #### L 501.5500, L501.7300, L501.7400 #### [facility] [address] [place], [address] Nucleated RBC (Bld) [#/Vol] 0 10*3/uL Normal 0-5 [facility] Comment on above: Performed By: #### L 501.5500, L501.7300, L501.7400 #### [facility] [address] [place], [address] Platelet mean volume (Bld) [Entitic vol] 10.0 fL Normal 6.2-12.0 [facility] Comment on above: Performed By: #### L 501.5500, L501.7300, L501.7400 #### [facility] [address] [place], [address] Platelets (Bld) [#/Vol] 381 10*3/uL Normal 150-450 [facility] Comment on above: Performed By: #### L 501.5500, L501.7300, L501.7400 #### [facility] [address] [place], [address] RBC (Bld) [#/Vol] 3.69 10*6/uL Low 4.6-6.2 [facility] Comment on above: Performed By: #### L 501.5500, L501.7300, L501.7400 #### [facility] [address] [place], [address] RDW SD 45.5 fl High 35.1-43.9 [facility] Comment on above: Performed By: #### L 501.5500, L501.7300, L501.7400 #### [facility] [address] [place], [address] WBC (Bld) [#/Vol] 13.8 10*3/uL High 4.4-11.0 [facility] Comment on above: Performed By: #### L 501.5500, L501.7300, L501.7400 #### [facility] [address] [place], [address] Eosinophil percentageOrdered By: Maria C Browning on 03-08-2025 Eosinophils/100 WBC (Bld) 0.4 % 0-5 [facility] Erythrocyte distribution wid th ratioOrdered By: Maria C Browning on 03-08-2025 Erythrocyte distribution width (RBC) [Ratio] 15.7 % High 11.6-14.6 [facility] Erythrocyte distribution wid th standard deviationOrdered By: Maria C Browning on 03-08-2025 Erythrocyte distribution width (RBC) [Ratio] 45.5 fl High 35.1-43.9 [facility] Hematocrit Auto (Bld) [Volum e fraction]Ordered By: Maria C Browning on 03-08-2025 Hematocrit (Bld) [Volume fraction] 29.3 % Low 40-54 [facility] Hemoglobin measurementOrdere d By: Maria C Browning on 03-08-2025 Hemoglobin (Bld) [Mass/Vol] 9.6 g/dL Low 13.0-16.5 [facility] Immature granulocytes/100 WB C Auto (Bld)Ordered By: Maria C Browning on 03-08-2025 Immature granulocytes/100 WBC (Bld) 1.700 % High 0.0-0.9 [facility] Comment on above: IG% - Immature Granu locytes (promyelocytes, myelocytes and metamyelocytes) > 1% indicates that a LEFT SHIFT is Present. MCV (mean corpuscular volume ) determinationOrdered By: Maria C Browning on 03-08-2025 MCV (RBC) [Entitic vol] 79.4 fL Low 80-94 [facility] Mean corpuscular hemoglobin (MCH) determinationOrdered By: [facility] Browning on 03-08-2025 MCH (RBC) [Entitic mass] 26.0 pg Low 27.0-32.0 [facility] Mean corpuscular hemoglobin concentration (MCHC) determinationOrdered By: Maria C Browning on 03-08-2025 MCHC (RBC) [Mass/Vol] 32.8 g/dL 32-36 [facility] Mean platelet volume determi nationOrdered By: Maria C Browning on 03-08-2025 Platelet mean volume (Bld) [Entitic vol] 10.0 fL 6.2-12.0 [facility] Monocyte percentageOrdered B y: Maria C Browning on 03-08-2025 Monocytes/100 WBC (Bld) 9.3 % 0-10 [facility] Neutrophil percentageOrdered By: Maria C Browning on 03-08-2025 Neutrophils/100 WBC (Bld) 81.8 % High 47-70 [facility] Nucleated red blood cell per centageOrdered By: Maria C Browning on 03-08-2025 Nucleated RBC/100 WBC (Bld) [Ratio] 0 % 0-5 [facility] Oncology Visit Reporton 08-2 Oncology Visit Report [facility] [place] [facility] [place] [address] OFFICE VISIT Date of Service: 03/08/25 0859 MR#: [id number] Acct: [id number] Name: HYUN ELIAS Rep #: [id number] : 1975 From: Regino Burleson MD Age/Sex: 49/M Location[place] [facility] [place] Status: Signed HPI Subjective Date of Service 03/08/25 Chief Complaint NSCLC on treatment History of Present Illness 49-year-old man presented to the ER with abdominal pain, CT of the chest, on 11/12/2024 showed multiple bilateral pulmonary nodules with mediastinal and hilar adenopathy, hypodensity in the liver with large necrotic retroperitoneal and gastric lymphadenopathy compatible with hepatic and marielena metastatic disease. Abdomen and pelvis. He had a CT-guided biopsy on 01/04/2025. 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 02/06/2025 PET/CT showed marked interval worsening of bilateral pulmonary, bilateral hilar, mediastinal, pancreatic body, left retroperitoneal, hepatic, and osseous malignancy/metastatic disease. Pain being managed by PCP. He was diagnosed with Squamous cell type, stage IV(cTx N3 M1) Lungs, bones, abdominal nodes, pancreas, Liver. Started Keytruda, Carboplatin and Abraxane on 03/01/2025. Comes for C1D8 Abraxane. Had dizzines after D1 but now fine. [facility] Medical History Constipation Encounter for antineoplastic chemotherapy and immunotherapy Hyponatremia Wears dentures Wears glasses Back pain Gastric reflux Former smoker History of stress test Cancer Encounter for education Surgical History Previous back surgery History of hernia surgery History of appendectomy History of surgery on arm Family History Mother Diabetes Cancer Father Diabetes Grandmother Cancer Social History Smoking Status: Former smoker quit date: 01/07/25 second hand exposure: Yes alcohol intake: never substance use type: does not use Intake Vital Signs 02/12/25 14:31 03/08/25 09:01 Height 5 ft 9 in 5 ft 9 in Weight: 58.088 kg BMI 18.8 BP 105/77 Blood Pressure Location Lt brachial Position Sitting Respiration 18 Pulse 120 H Pulse Source Monitor Temp 98.5 F Temperature Source Temporal Artery Pulse Oximetry (%) 94 Oxygen Delivery Method room air Intake Is patient in pain?: No Allergies sulfamethoxazole (From Bactrim) Allergy (Verified 03/08/25 09:04) Unknown trimethoprim (From Bactrim) Allergy (Verified 03/08/25 09:04) Unknown amoxicillin trihydrate (From Augmentin) Adverse Reaction (Verified 03/08/25 09:04) Nausea potassium clavulanate (From Augmentin) Adverse Reaction (Verified 03/08/25 09:04) Nausea Medications ???Medication ???Instructions ???Recorded ???Confirmed ???Type folic acid 1 mg tablet 1 mg PO QDAY 01/18/25 03/08/25 His tory metformin 500 mg tablet,extended 1,000 mg PO QDAY 02/12/25 03/08/25 History release 24 hr dexamethasone 4 mg tablet 8 mg (2 x 4 mg) PO .COMPLEX #30 03/08/25 Rx tabs lidocaine-prilocaine 2.5 %-2.5 % 1 applic topical ONCE PRN port 12/0303/08/25 Rx topical cream access 30 days #30 grams ondansetron 8 mg disintegrating 8 mg PO Q8H PRN nausea and 5 03/08/25 Rx tablet vomiting #30 tabs oxycodone 5 mg tablet 5 - 10 mg PO Q6H PRN pain 03/01/25 03/08/25 History polyethylene glycol 3350 17 4 g PO ONCE #510 grams 03/01/25 Rx gram/dose oral powder (Miralax) sodium chloride 1,000 mg soluble 1,000 mg PO QDAY #30 tabs 03/01/25 03/08/25 Rx tablet Nebulizer machine #1 ea 03/07/25 03/08/25 Rx hydroxyzine pamoate 25 mg capsule 25 mg PO ONCE 03/07/25 03/08/25 H istory ipratropium 0.5 mg-albuterol 3 mg 3 ml inhalation Q4H PRN SOB /OR 03/07/25 03/08/25 Rx (2.5 mg base)/3 mL nebulization WHEEZING #180 mL soln naloxone 4 mg/actuation nasal spray intranasal 03/07/25 03/08/25 Hi story Central Venous Access Central Venous Access: Yes Port/PICC: Port Exam Physical Exam Narrative 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 Const alert, oriented x3 and no apparent distress General Appearance: ill appearing Positive for chronically and frail Nutritional Appearance: cachectic HEENT normocephalic Eyes Eyes Narrative: Blind Neck supple Lymph Lymphatic: no lymphadenopathy noted Chest Chest Narrative: _ Port R IC area. Chest: vascular access Resp normal respiratory effort Auscultation: diminished lung sounds Cardio regular rate, regular rhythm, S1 normal heart sound and S2 normal heart sound GI soft to palpation, non-tender and non-distended Auscultation: n (more content not included)... Normal [facility] Platelet countOrdered By: Calli Browning on 03-08-2025 Platelets (Bld) [#/Vol] 381 10*3/uL 150-450 [facility] RBC Auto (Bld) [#/Vol]Ordere d By: Maria C Browning on 03-08-2025 RBC (Bld) [#/Vol] 3.69 10*6/uL Low 4.6-6.2 [facility] White blood cell (WBC) count Ordered By: Maria C Browning on 03-08-2025 WBC (Bld) [#/Vol] 13.8 10*3/uL High 4.4-11.0 [facility] Pulmonary Visit Reporton Pulmonary Visit Report [facility] [place] [address] [place], [place] [address] OFFICE VISIT Date of Service: 03/07/25 MR#: [id number] Acct: [id number] Name: DAVEHYUN RODRIGUEZ DANY Rep #: [id number] : 1975 Provider: RODRIGUEZ Cardenas Age/Sex: 49/M Location: [facility] [place] Status: Signed Assessment and Plan Assessment and Plan (1) Shortness of breath: Status: Acute Plan: New since the cancer diagnosis. Walking oximetry preformed in the office today to evaluate for exertional hypoxia. He reports this occurs when walking up "stairs". The patient did not desaturate during the 6-minute walk test here in the office. He currently does not qualify, nor would not benefit from oxygen. We will perform an overnight oximetry through [facility] to see if the patient would qualify for oxygen with sleep. Follow-up in 1 month to discuss test results. If we are not successful at improving symptom control, consider palliative care. (2) 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 Plan: Complicates exam, plan, care or prognosis. He is under care of Oncology. (3) Nicotine abuse: Status: Chronic Plan: He quit smoking 2 months ago. (4) COPD (chronic obstructive pulmonary disease): Status: Chronic Qualifiers: COPD type: emphysema Emphysema type: centrilobular Qualified Code(s): J43.2 - Centrilobular emphysema Plan: Ordering Nebulizer machine and DuoNebs. He may utilize these every 4-6 hours as needed for wheezing, chest tightness, shortness of breath or cough. Follow up in one month to evaluate frequency of use and any benefit he recieved. (5) Hypoxia: Status: Acute Plan: Preforming a nocturnal oximetry with [facility] to evaluate for the need of supplemental oxygen with sleep. If indicated, oxygen will be ordered to use with sleep. Follow up in one month to review test results and evaluate response to therapy, if indicated. Orders: Orders Walking Oximetry Today R06.02 - Shortness of breath Medications: New ipratropium-albuterol 0.5 mg-3 mg(2.5 mg base)/3 mL 3 mL inhalation Q4H PRN 180 mL 6RF SOB /OR WHEEZING J44.9 - Chronic obstructive pulmonary disease, unspecified [Nebulizer machine] As directed 1 ea 0RF J44.9 - Chronic obstructive pulmonary disease, unspecified Plan Details Additional Comments: This note was generated with Dragon dictation software. It may contain incorrect words, spelling, and punctuation that were not noted in checking the note before signing. I have spent 33 minutes today reviewing labs, records and history. Time includes coordinating care, interpretation of tests. This also includes time I spent with the patient for exam, treatment plan and education as well as documenting clinical information. Follow Up: 1 Month HPI Acute visit Chief Complaint: shortness of breath when walking up stairs HPI Comments Details: This patient presents to the office today for an acute visit regarding shortness of breath on exertion. He is ambulatory with the use of a cane. He has not recently been seen in the ED or urgent care for any respiratory illness. He has not required any antibiotics or prednisone for any breathing problems. He is not currently on any inhalers. He does not utilize albuterol. He has successfully quit smoking on January 07, 2025. If you recall, he has a 14-[id number]-[id number] smoking history. He quit 2 months ago. He has shortness of breath on exertion which is getting worse. However, he does not believe it is problematic and does not think that inhalers are necessary. He has a dry cough. He denies sputum production or hemoptysis. He denies any wheezing or palpitations. Intake Vital Signs 03/01/25 08:31 03/07/25 08:36 Height 5 ft 9 in 5 ft 9 in Weight: 128 lb BMI 18.8 BP 98/68 Blood Pressure Location Rt brachial Position Sitting Respiration 18 Pulse 124 H Pulse Source Monitor Temp 97.4 F L Temperature Source Temporal Artery Pulse Oximetry (%) 99 Oxygen Delivery Method room air Intake Visit Reasons: Acute visit Docket Clerk Required: No DME Vendor: N/a Accompanied by: Self Is patient in pain?: No Allergies sulfamethoxazole (From Bactrim) Allergy (Verified 03/07/25 10:29) Unknown trimethoprim (From Bactrim) Allergy (Verified 03/07/25 10:29) Unknown amoxicillin trihydrate (From Augmentin) Adverse Reaction (Verified 03/07/25 10:29) Nausea potassium clavulanate (From Augmentin) Adverse Reaction (Verified 03/07/25 10:29) Nausea Medications ???Medication ???Instructions ???Recorded ???Confirmed ???Type folic acid 1 mg tablet 1 mg PO QDAY 01/18/25 03/07/25 His tory (more content not included)... Normal [facility] Absolute lymphocyte countOrd ered By: Maria C Browning on 03-01-2025 Lymphocytes Auto (Unsp spec) [#/Vol] 1.13 10*3/uL 0.83-4.51 [facility] Absolute neutrophil countOrd ered By: Maria C Browning on 03-01-2025 Neutrophils (Bld) [#/Vol] 11.2 10*3/uL High 2.0-7.7 [facility] Anion gap in Serum or Plasma Ordered By: Maria C Browning on 03-01-2025 Anion gap [Moles/Vol] 14 mmol/L 5-15 [facility] Automated blood erythrocyte countOrdered By: Maria C Browning on 03-01-2025 RBC (Bld) [#/Vol] 3.90 10*6/uL Low 4.6-6.2 [facility] Comment on above: Performed By: #### L 100.0100, L506.0400, L501.9520, L500.4050 #### [facility] Laboratory [address] [facility] [id number] Automated blood hematocrit ( percentage)Ordered By: Maria C Browning on 03-01-2025 Hematocrit (Bld) [Volume fraction] 31.4 % Low 40-54 [facility] Comment on above: Performed By: #### L 100.0100, L506.0400, L501.9520, L500.4050 #### [facility] [address] [facility] [place] [id number] Automated lymphocyte count a s percentage of total leukocytesOrdered By: Maria C Browning on 03-01-2025 Lymphocytes/100 WBC Auto (Unsp spec) 8.4 % Low 19-41 [facility] BUN/creatinine ratioOrdered By: Maria C Browning on 03-01-2025 Urea nitrogen/Creatinine [Mass ratio] 12.9 mg/mg 10-20 [facility] Basophil percentageOrdered B y: Maria C Browning on 03-01-2025 Basophils/100 WBC (Bld) 0.7 % Normal 0-1 [facility] Comment on above: Performed By: #### L 100.0100, L506.0400, L501.9520, L500.4050 #### [facility] [address] [place], [address] Bilirubin, totalOrdered By: Maria C Browning on 03-01-2025 Bilirubin [Mass/Vol] 0.44 mg/dL 0.00-1.30 [facility] CBC W/Diff, Automatedon 02-10 Absolute Lymph 1.13 X10 3/uL Normal 0.83-4.51 [facility] Comment on above: Performed By: #### L 100.0100, L506.0400, L501.9520, L500.4050 #### [facility] [address] [place], [address] Absolute Neut 11.2 X10 3/uL High 2.0-7.7 [facility] Comment on above: Performed By: #### L 100.0100, L506.0400, L501.9520, L500.4050 #### [facility] [address] [place], [address] IG% 0.900 Normal 0.0-0.9 [facility] Comment on above: Result Comment: IG% - Immature Granulocytes (promyelocytes, myelocytes and metamyelocytes) > 1% indicates that a LEFT SHIFT is Present. Performed By: #### L 100.0100, L506.0400, L501.9520, L500.4050 #### [facility] [address] [place], [address] Lymphocytes/100 WBC (Bld) 8.4 % Low 19-41 [facility] Comment on above: Performed By: #### L 100.0100, L506.0400, L501.9520, L500.4050 #### [facility] [address] [place], [address] Nucleated RBC (Bld) [#/Vol] 0 10*3/uL Normal 0-5 [facility] Comment on above: Performed By: #### L 100.0100, L506.0400, L501.9520, L500.4050 #### [facility] [address] [place], [address] RDW SD 46.1 fl High 35.1-43.9 [facility] Comment on above: Performed By: #### L 100.0100, L506.0400, L501.9520, L500.4050 #### [facility] [address] [place], [address] Carbon dioxide, total [Moles /volume] in Central venous bloodOrdered By: Maria C Browning on 03-01-2025 CO2 [Moles/Vol] 21.0 mmol/L 21.0-32.0 [facility] Chloride assayOrdered By: Calli Browning on 03-01-2025 Chloride [Moles/Vol] 90 mmol/L Low 98-108 [facility] Comprehensive Metabolic Prof ilon 03-01-2025 Albumin [Mass/Vol] 2.9 g/dL Low 3.5-5.0 [facility] Comment on above: Performed By: #### L 100.0100, L506.0400, L501.9520, L500.4050 #### [facility] [address] [place], [address] Albumin/Globulin [Mass ratio] 0.6 {ratio} Low 0.9-2.4 [facility] Comment on above: Performed By: #### L 100.0100, L506.0400, L501.9520, L500.4050 #### [facility] [address] [place], [address] ALK PHOS 88 U/L Normal 40-129 [facility] Comment on above: Performed By: #### L 100.0100, L506.0400, L501.9520, L500.4050 #### [facility] [address] [place], [address] ALT [Catalytic activity/Vol] 15 U/L Normal <=46 [facility] Comment on above: Performed By: #### L 100.0100, L506.0400, L501.9520, L500.4050 #### [facility] [address] [place], [address] AST [Catalytic activity/Vol] 30 U/L Normal <=37 [facility] Comment on above: Performed By: #### L 100.0100, L506.0400, L501.9520, L500.4050 #### [facility] [address] [place], [address] Bilirubin [Mass/Vol] 0.44 mg/dL Normal 0.00-1.30 [facility] Comment on above: Performed By: #### L 100.0100, L506.0400, L501.9520, L500.4050 #### [facility] [address] [place], [address] BUN/CRE 12.9 RATIO Normal 10-20 [facility] Comment on above: Performed By: #### L 100.0100, L506.0400, L501.9520, L500.4050 #### [facility] [address] [place], [address] Calcium [Mass/Vol] 9.3 mg/dL Normal 7.6-11.0 [facility] Comment on above: Performed By: #### L 100.0100, L506.0400, L501.9520, L500.4050 #### [facility] [address] [place], [address] Chloride [Moles/Vol] 90 mmol/L Low 98-108 [facility] Comment on above: Performed By: #### L 100.0100, L506.0400, L501.9520, L500.4050 #### [facility] [address] [place], [address] CO2 [Moles/Vol] 21.0 mmol/L Normal 21.0-32.0 [facility] Comment on above: Performed By: #### L 100.0100, L506.0400, L501.9520, L500.4050 #### [facility] [address] [place], [address] Creatinine [Mass/Vol] 0.82 mg/dL Normal 0.70-1.20 [facility] Comment on above: Performed By: #### L 100.0100, L506.0400, L501.9520, L500.4050 #### [facility] [address] [place], [address] ECRCL 96.41 ml/min Normal 50-250 [facility] Comment on above: Performed By: #### L 100.0100, L506.0400, L501.9520, L500.4050 #### [facility] [address] [place], [address] GAP 14 Normal 5-15 [facility] Comment on above: Performed By: #### L 100.0100, L506.0400, L501.9520, L500.4050 #### [facility] [address] [place], [address] GFR/1.73 sq M.predicted among non-blacks MDRD (S/P/Bld) [Vol rate/Area] 106 mL/min/{1.73_m2} Normal >60 [facility] Comment on above: Result Comment: mL/m in/1.73m2 CKD-EPI Creatinine Equation (2020) Performed By: #### L 100.0100, L506.0400, L501.9520, L500.4050 #### [facility] [address] [place], [address] Globulin (S) [Mass/Vol] 5.1 g/dL High 2.2-4.2 [facility] Comment on above: Performed By: #### L 100.0100, L506.0400, L501.9520, L500.4050 #### [facility] [address] [place], [address] Glucose [Mass/Vol] 274 mg/dL High 70-99 [facility] Comment on above: Performed By: #### L 100.0100, L506.0400, L501.9520, L500.4050 #### [facility] [address] [place], [address] Potassium [Moles/Vol] 4.5 mmol/L Normal 3.3-5.1 [facility] Comment on above: Performed By: #### L 100.0100, L506.0400, L501.9520, L500.4050 #### [facility] [address] [place], [address] Sodium [Moles/Vol] 125 mmol/L Low 133-145 [facility] Comment on above: Performed By: #### L 100.0100, L506.0400, L501.9520, L500.4050 #### [facility] [address] [place], [address] T PROT 8.0 g/dL Normal 5.9-8.4 [facility] Comment on above: Performed By: #### L 100.0100, L506.0400, L501.9520, L500.4050 #### [facility] [address] [place], [address] Urea nitrogen [Mass/Vol] 11 mg/dL Normal 4-19 [facility] Comment on above: Performed By: #### L 100.0100, L506.0400, L501.9520, L500.4050 #### [facility] [address] [place], [address] Eosinophil percentageOrdered By: Maria C Browning on 03-01-2025 Eosinophils/100 WBC (Bld) 1.1 % Normal 0-5 [facility] Comment on above: Performed By: #### L 100.0100, L506.0400, L501.9520, L500.4050 #### [facility] [address] [place], [address] Erythrocyte distribution wid th ratioOrdered By: Maria C Browning on 03-01-2025 Erythrocyte distribution width (RBC) [Ratio] 15.9 % High 11.6-14.6 [facility] Comment on above: Performed By: #### L 100.0100, L506.0400, L501.9520, L500.4050 #### [facility] [address] [place], [address] Erythrocyte distribution wid th standard deviationOrdered By: Maria C Browning on 03-01-2025 Erythrocyte distribution width (RBC) [Ratio] 46.1 fl High 35.1-43.9 [facility] Glomerular filtration rate ( GFR) estimation/1.73 sq m using serum, plasma, or whole bOrdered By: Maria C Browning on 03-01-2025 GFR/1.73 sq M.predicted among non-blacks MDRD (S/P/Bld) [Vol rate/Area] 106 mL/min/{1.73_m2} >60 [facility] Comment on above: mL/min/1.73m2 CKD-EP I Creatinine Equation (2020) Hemoglobin measurementOrdere d By: Maria C Browning on 03-01-2025 Hemoglobin (Bld) [Mass/Vol] 10.1 g/dL Low 13.0-16.5 [facility] Comment on above: Performed By: #### L 100.0100, L506.0400, L501.9520, L500.4050 #### [facility] [address] [place], [address] Immature granulocytes/100 WB C Auto (Bld)Ordered By: Maria C Browning on 03-01-2025 Immature granulocytes/100 WBC (Bld) 0.900 % 0.0-0.9 [facility] Comment on above: IG% - Immature Granu locytes (promyelocytes, myelocytes and metamyelocytes) > 1% indicates that a LEFT SHIFT is Present. Laboratory - Chemistry and C hemistry - challengeOrdered By: Maria C Browning on 03-01-2025 AST [Catalytic activity/Vol] 30 U/L <38 [facility] MCV (mean corpuscular volume ) determinationOrdered By: Maria C Browning on 03-01-2025 MCV (RBC) [Entitic vol] 80.5 fL Normal 80-94 [facility] Comment on above: Performed By: #### L 100.0100, L506.0400, L501.9520, L500.4050 #### [facility] [address] [place], [address] Mean corpuscular hemoglobin (MCH) determinationOrdered By: Maria C Browning on 03-01-2025 MCH (RBC) [Entitic mass] 25.9 pg Low 27.0-32.0 [facility] Comment on above: Performed By: #### L 100.0100, L506.0400, L501.9520, L500.4050 #### [facility] [address] [place], [address] Mean corpuscular hemoglobin concentration (MCHC) determinationOrdered By: Maria C Browning on 03-01-2025 MCHC (RBC) [Mass/Vol] 32.2 g/dL Normal 32-36 [facility] Comment on above: Performed By: #### L 100.0100, L506.0400, L501.9520, L500.4050 #### [facility] [address] [place], [address] Mean platelet volume determi nationOrdered By: Didiersarahy Browning on 03-01-2025 Platelet mean volume (Bld) [Entitic vol] 9.6 fL Normal 6.2-12.0 [facility] Comment on above: Performed By: #### L 100.0100, L506.0400, L501.9520, L500.4050 #### [facility] [address] [place], [address] Monocyte percentageOrdered B y: Maria C Browning on 03-01-2025 Monocytes/100 WBC (Bld) 5.8 % Normal 0-10 [facility] Comment on above: Performed By: #### L 100.0100, L506.0400, L501.9520, L500.4050 #### [facility] [address] [place], [address] Neutrophil percentageOrdered By: Maria C Browning on 03-01-2025 Neutrophils/100 WBC (Bld) 83.1 % High 47-70 [facility] Comment on above: Performed By: #### L 100.0100, L506.0400, L501.9520, L500.4050 #### [facility] [address] [place], [address] Nucleated red blood cell per centageOrdered By: Maria C Browning on 03-01-2025 Nucleated RBC/100 WBC (Bld) [Ratio] 0 % 0-5 [facility] Oncology Visit Reporton 02-10 Oncology Visit Report [facility] [place] [facility] [address] [place] [address] OFFICE VISIT Date of Service: 03/01/25 08 MR#: [id number] Acct: [id number] Name: HYUN ELIAS Rep #: [id number] : 1975 From: Yelena Gallegos NP LITIGATION [facility]GAL -C Age/Sex: 49/M Location: [facility] [place] Status: Signed HPI Subjective Date of Service 03/01/25 Chief Complaint NSCLC on treatment History of Present Illness 49-year-old man presented to the ER with abdominal pain, CT of the chest, on 11/12/2024 showed multiple bilateral pulmonary nodules with mediastinal and hilar adenopathy, hypodensity in the liver with large necrotic retroperitoneal and gastric lymphadenopathy compatible with hepatic and marielena metastatic disease. Abdomen and pelvis. He had a CT-guided biopsy on 01/04/2025. 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 02/06/2025 PET/CT showed marked interval worsening of bilateral pulmonary, bilateral hilar, mediastinal, pancreatic body, left retroperitoneal, hepatic, and osseous malignancy/metastatic disease. Pain being managed by PCP. Interval History The patient is presenting to clinic accompanied by significant other for an education visit to discuss Abraxane, carboplatin, pembrolizumab. Reports pain involving left low back an RLQ. Taking 10 mg oxycodone every 6 hours as prescribed by his pcp. Rates pain 3/10 at this time. Nausea intermittent, taking ondansetron 4 mg with oxycodone also as he was instructed to in the ED. C/o constipation. LBM 02/27/25. Using miralax with modest improvement. + Exertional dyspnea unchanged, requires breaks with stairs. C/o dizziness x 2 days with positional changes. Specifically denies fever/chills, sweats, headache, chest pain, palpitations, wheezing, numbness tingling. [facility] Medical History (Updated 03/01/25 @ 10:42 by Yelena Gallegos LITIGATION PARALEGAL, LITIGATION PARALEGAL-C) Encounter for antineoplastic chemotherapy and immunotherapy Hyponatremia Wears dentures Wears glasses Back pain Gastric reflux Former smoker History of stress test Cancer Encounter for education Surgical History Previous back surgery History of hernia surgery History of appendectomy History of surgery on arm Family History Mother Diabetes Cancer Father Diabetes Grandmother Cancer Social History Smoking Status: Former smoker quit date: 01/07/25 second hand exposure: Yes alcohol intake: never substance use type: does not use ROS ROS Narrative Negative except as documented in the interval HPI Intake Vital Signs 02/12/25 14:31 03/01/25 08:31 Height 5 ft 9 in 5 ft 9 in Weight: 131 lb 7 oz BMI 19.4 BP 102/70 Blood Pressure Location Lt brachial Position Sitting Respiration 18 Pulse 111 H Pulse Source Monitor Temp 98.4 F Temperature Source Temporal Artery Pulse Oximetry (%) 94 Oxygen Delivery Method room air Intake Accompanied by: Is patient in pain?: No Allergies sulfamethoxazole (From Bactrim) Allergy (Verified 03/01/25 08:45) Unknown trimethoprim (From Bactrim) Allergy (Verified 03/01/25 08:45) Unknown amoxicillin trihydrate (From Augmentin) Adverse Reaction (Verified 03/01/25 08:45) Nausea potassium clavulanate (From Augmentin) Adverse Reaction (Verified 03/01/25 08:45) Nausea Medications ???Medication ???Instructions ???Recorded ???Confirmed ???Type rabeprazole 20 mg tablet,delayed 20 mg PO DAILY 01/20/15 03/01/25 H istory release (AcipHex) folic acid 1 mg tablet 1 mg PO QDAY 01/18/25 03/01/25 His tory metformin 500 mg tablet,extended 1,000 mg PO QDAY 02/12/25 03/01/25 History release 24 hr dexamethasone 4 mg tablet 8 mg (2 x 4 mg) PO .COMPLEX #30 03/01/25 Rx tabs lidocaine-prilocaine 2.5 %-2.5 % 1 applic topical ONCE PRN port 12/0303/01/25 Rx topical cream access 30 days #30 grams ondansetron 8 mg disintegrating 8 mg PO Q8H PRN nausea and 5 03/01/25 Rx tablet vomiting #30 tabs oxycodone 5 mg tablet 5 - 10 mg PO Q6H PRN pain 03/01/25 03/01/25 History Central Venous Access Central Venous Access: Yes Port/PICC: Port Laboratory Tests 03/01/25 07:47 WBC 13.5 H Hgb 10.1 L Hct 31.4 L Plt Count 532 H Absolute Neuts (auto) 11.2 H Sodium 125 L Potassium 4.5 Chloride 90 L Carbon Dioxide 21.0 BUN 11 Creatinine 0.82 Glucose 274 H Calcium 9.3 Total Bilirubin 0.44 AST 30 ALT 15 Alkaline Phosphatase 88 Albumin 2.9 L Exam Physical Exam Narrative ECOG 1-2 Const alert, oriented x3 and no apparent distress General Appearance: ill appearing Positive for chronic (more content not included)... Normal [facility] Osmolality urOrdered By: Flor ha Rosy on 03-01-2025 Osmolality (U) [Osmolality] 410 mOsm/KG >50 [facility] Comment on above: Normal Urine Referen ce Ranges Random: 50 - 1200 mOsm/kg H20 depending on fluid intake Random: >850 mOsm/kg after 12 hour fluid restriction 24 hour: ~300 - 900 mOsm/kg H2O Osmolality, Serumon 03-01-20 25 OSMOLALITY,SER 276 mOsm/KG Normal 275-295 [facility] Comment on above: Performed By: #### L 501.5500, L501.7300, L501.7400 #### [facility] [address] [place], [place], [id number] Osmolality, Urineon 03-01-20 25 OSMOLALITY,UR 410 mOsm/KG Normal [facility] Comment on above: Result Comment: Normal Urine Reference Ranges Random: 50 - 1200 mOsm/kg H20 depending on fluid intake Random: >850 mOsm/kg after 12 hour fluid restriction 24 hour: 300 - 900 mOsm/kg H2O Performed By: #### L 501.5500, L501.7300, L501.7400 #### [facility] [address] [place], [place], [id number] Platelet countOrdered By: Calli Browning on 03-01-2025 Platelets (Bld) [#/Vol] 532 10*3/uL High 150-450 [facility] Comment on above: Performed By: #### L 100.0100, L506.0400, L501.9520, L500.4050 #### [facility] [address] [place], [address] Potassium measurement (mass/ volume)Ordered By: Maria C Browning on 03-01-2025 Potassium (Unsp spec) [Mass/Vol] 4.5 mmol/L 3.3-5.1 [facility] Serum creatinine measurement (mass/volume)Ordered By: Maria C Browning on 03-01-2025 Creatinine [Mass/Vol] 0.82 mg/dL 0.70-1.20 [facility] Serum globulin measurementOr dered By: Maria C Browning on 03-01-2025 Globulin (S) [Mass/Vol] 5.1 g/dL High 2.2-4.2 [facility] Serum glucose measurement (m ass/volume)Ordered By: Maria C Browning on 03-01-2025 Glucose [Mass/Vol] 274 mg/dL High 70-99 [facility] Serum or plasma alanine montenegro otransferase (ALT) measurementOrdered By: Maria C Browning on 03-01-2025 ALT [Catalytic activity/Vol] 15 U/L <47 [facility] Serum or plasma albumin darien urement (mass/volume)Ordered By: Maria C Browning on 03-01-2025 Albumin [Mass/Vol] 2.9 g/dL Low 3.5-5.0 [facility] Serum or plasma albumin/glob ulin mass ratioOrdered By: Maria C Browning on 03-01-2025 Albumin/Globulin [Mass ratio] 0.6 {ratio} Low 0.9-2.4 [facility] Serum or plasma alkaline maría sphatase measurementOrdered By: Maria C Browning on 03-01-2025 ALP [Catalytic activity/Vol] 88 U/L 40-129 [facility] Serum or plasma calcium darien urement (mass/volume)Ordered By: Maria C Browning on 03-01-2025 Calcium [Mass/Vol] 9.3 mg/dL 7.6-11.0 [facility] Serum or plasma urea nitroge n measurement (mass/volume)Ordered By: Maria C Browning on 03-01-2025 Urea nitrogen [Mass/Vol] 11 mg/dL 4-19 [facility] Sodium levelOrdered By: Didier Browning on 03-01-2025 Sodium [Moles/Vol] 125 mmol/L Low 133-145 [facility] T4 Free Directon 03-01-2025 T4 FREE DIRECT 1.20 ng/dL Normal 0.76-1.46 [facility] Comment on above: Performed By: #### L 100.0100, L506.0400, L501.9520, L500.4050 #### [facility] Laboratory [address] [place], [address] T4 freeOrdered By: Maria C Hensley madina on 03-01-2025 Free T4 [Mass/Vol] 1.20 ng/dL 0.76-1.46 [facility] TSH DL <= 0.005 mIU/L QnOrde red By: Maria C Browning on 03-01-2025 TSH Qn 3.950 uIU/mL 0.300-4.200 [facility] Thyroid Stim Hormone (TSH)on 03-01-2025 TSH 3.950 uIU/mL Normal 0.300-4.200 [facility] Comment on above: Performed By: #### L 100.0100, L506.0400, L501.9520, L500.4050 #### [facility] [address] [place], [address] Total proteinOrdered By: Abran kellogg Nallely on 03-01-2025 Protein [Mass/Vol] 8.0 g/dL 5.9-8.4 [facility] Urine Sodiumon 03-01-2025 Sodium (U) [Moles/Vol] 30 mmol/L Normal Not Establ. [facility] Comment on above: Performed By: #### L 501.5500, L501.7300, L501.7400 #### [facility] [address] [place], [address] Urine sodium measurement (mo les/volume)Ordered By: Yelena Gallegos on 03-01-2025 Sodium (U) [Moles/Vol] 30 mmol/L Not Establ. [facility] White blood cell (WBC) count Ordered By: Didiersarahy Browning on 03-01-2025 WBC (Bld) [#/Vol] 13.5 10*3/uL High 4.4-11.0 [facility] Comment on above: Performed By: #### L 100.0100, L506.0400, L501.9520, L500.4050 #### [facility] Laboratory [address] [place], [address] CBC W/Diff, Automatedon 08-1 Absolute Neut Normal 2.0-7.7 [facility] Comment on above: Result Comment: Canc elled via OM: moving to RCR account Performed By: #### L 501.5500, L501.7300, L501.7400 #### [facility] [address] [place], [address] HCT Normal 40-54 [facility] Comment on above: Result Comment: Canc elled via OM: moving to RCR account Performed By: #### L 501.5500, L501.7300, L501.7400 #### [facility] [address] [place], [address] HGB Normal 13.0-16.5 [facility] Comment on above: Result Comment: Canc elled via OM: moving to RCR account Performed By: #### L 501.5500, L501.7300, L501.7400 #### [facility] [address] [place], [address] MCH Normal 27.0-32.0 [facility] Comment on above: Result Comment: Canc elled via OM: moving to RCR account Performed By: #### L 501.5500, L501.7300, L501.7400 #### [facility] [address] [place], [address] MCHC Normal 32-36 [facility] Comment on above: Result Comment: Canc elled via OM: moving to RCR account Performed By: #### L 501.5500, L501.7300, L501.7400 #### [facility] [address] [place], [address] MCV Normal 80-94 [facility] Comment on above: Result Comment: Canc elled via OM: moving to RCR account Performed By: #### L 501.5500, L501.7300, L501.7400 #### [facility] [address] [place], [address] NEUT% Normal 47-70 [facility] Comment on above: Result Comment: Canc elled via OM: moving to RCR account Performed By: #### L 501.5500, L501.7300, L501.7400 #### [facility] [address] [place], [address] PLT Normal 150-450 [facility] Comment on above: Result Comment: Canc elled via OM: moving to RCR account Performed By: #### L 501.5500, L501.7300, L501.7400 #### [facility] [address] [place], [address] RBC Normal 4.6-6.2 [facility] Comment on above: Result Comment: Canc elled via OM: moving to RCR account Performed By: #### L 501.5500, L501.7300, L501.7400 #### [facility] [address] [place], [address] RDW CV Normal 11.6-14.6 [facility] Comment on above: Result Comment: Canc elled via OM: moving to RCR account Performed By: #### L 501.5500, L501.7300, L501.7400 #### [facility] [address] [place], [address] RDW SD Normal 35.1-43.9 [facility] Comment on above: Result Comment: Canc elled via OM: moving to RCR account Performed By: #### L 501.5500, L501.7300, L501.7400 #### [facility] [address] [place], [address] WBC Normal 4.4-11.0 [facility] Comment on above: Result Comment: Canc elled via OM: moving to RCR account Performed By: #### L 501.5500, L501.7300, L501.7400 #### [facility] [address] [place], [address] Comprehensive Metabolic Prof ilon 02-22-2025 ALB Normal 3.5-5.0 [facility] Comment on above: Result Comment: Canc elled via OM: moving to RCR account Performed By: #### L 501.5500, L501.7300, L501.7400 #### [facility] [address] [place], [address] ALK PHOS Normal 40-129 [facility] Comment on above: Result Comment: Canc elled via OM: moving to RCR account Performed By: #### L 501.5500, L501.7300, L501.7400 #### [facility] [address] [place], [address] ALT Normal <=46 [facility] Comment on above: Result Comment: Canc elled via OM: moving to RCR account Performed By: #### L 501.5500, L501.7300, L501.7400 #### [facility] [address] [place], [address] AST Normal <=37 [facility] Comment on above: Result Comment: Canc elled via OM: moving to RCR account Performed By: #### L 501.5500, L501.7300, L501.7400 #### [facility] [address] [place], [address] BUN Normal 4-19 [facility] Comment on above: Result Comment: Canc elled via OM: moving to RCR account Performed By: #### L 501.5500, L501.7300, L501.7400 #### [facility] [address] [place], [address] BUN/CRE Normal 10-20 [facility] Comment on above: Result Comment: Canc elled via OM: moving to RCR account Performed By: #### L 501.5500, L501.7300, L501.7400 #### [facility] [address] [place], [address] Calcium Normal 7.6-11.0 [facility] Comment on above: Result Comment: Canc elled via OM: moving to RCR account Performed By: #### L 501.5500, L501.7300, L501.7400 #### [facility] [address] [place], [address] CL Normal 98-108 [facility] Comment on above: Result Comment: Canc elled via OM: moving to RCR account Performed By: #### L 501.5500, L501.7300, L501.7400 #### [facility] [address] [place], [address] CO2 Normal 21.0-32.0 [facility] Comment on above: Result Comment: Canc elled via OM: moving to RCR account Performed By: #### L 501.5500, L501.7300, L501.7400 #### [facility] [address] [place], [address] CREAT,SERUM Normal 0.70-1.20 [facility] Comment on above: Result Comment: Canc elled via OM: moving to RCR account Performed By: #### L 501.5500, L501.7300, L501.7400 #### [facility] [address] [place], [address] eGFR Normal >60 [facility] Comment on above: Result Comment: Canc elled via OM: moving to RCR account Performed By: #### L 501.5500, L501.7300, L501.7400 #### [facility] Laboratory [address] [place], [address] GAP Normal 5-15 [facility] Comment on above: Result Comment: Canc elled via OM: moving to RCR account Performed By: #### L 501.5500, L501.7300, L501.7400 #### [facility] [address] [place], [address] GLU Normal 70-99 [facility] Comment on above: Result Comment: Canc elled via OM: moving to RCR account Performed By: #### L 501.5500, L501.7300, L501.7400 #### [facility] [address] [place], [address] Potassium Normal 3.3-5.1 [facility] Comment on above: Result Comment: Canc elled via OM: moving to RCR account Performed By: #### L 501.5500, L501.7300, L501.7400 #### [facility] Laboratory [address] [place], [address] T BILI Normal 0.00-1.30 [facility] Comment on above: Result Comment: Canc elled via OM: moving to RCR account Performed By: #### L 501.5500, L501.7300, L501.7400 #### [facility] Laboratory [address] [place], [address] T PROT Normal 5.9-8.4 [facility] Comment on above: Result Comment: Canc elled via OM: moving to RCR account Performed By: #### L 501.5500, L501.7300, L501.7400 #### [facility] Laboratory [address] [place], [address] Comprehensive Metabolic Profil Normal 133-145 [facility] Comment on above: Result Comment: Canc elled via OM: moving to RCR account Performed By: #### L 501.5500, L501.7300, L501.7400 #### [facility] Laboratory [address] [place], [address] Bedside Glucoseon 02-20-2025 FINGERSTICK GLU 215 mg/dL High 74-106 [facility] Comment on above: Result Comment: MOLLY PERSON OF PATIENT CARE PER NURSING PROTOCOL Performed By: #### L 501.080 #### [facility] Laboratory [address] [place], [address] CXR for Line Placementon CXR for Line Placement [facility] Imaging Services [address] [place] [address] CXR for Line Placement MR#: [id number] Acct: [id number] Name: HYUN ELIAS Rep #: [id number] : 1975 M 49 From: Franky Borden MD PCP: Dr. Cristian Adame MD Status: [facility] Study: CXR for Line Placement Date of Exam: 02/20/25 Exam# [id number] Ordering Dr: Hernan Vincent PROCEDURE: CXR FOR LINE PLACEMENT 02/20/2025 REASON FOR EXAM: LINE PLACEMENT TECHNIQUE: Frontal view of the chest. COMPARISON: January 04, 2025 FINDINGS: Hardware: Right Port-A-Cath has its tip at the junction of the right atrium and superior vena cava. EKG leads are seen. Heart: Normal Lungs: Innumerable pulmonary nodules are shown bilaterally. No new consolidation or pleural effusion. No pneumothorax. Bones: Midthoracic vertebral augmentation. RAD/CXR for Line Placement IMPRESSION: Satisfactory position of the right port. No pneumothorax. Reading Location: [id number] CC: Dr. Hernan Vincent MD; Dr. Cristian Adame MD Manager Behavior: Signed Normal [facility] Discharge Instructionon 02-09 Discharge Instruction [facility] Medical Records Department [address] [place] [address] Instructions for Home/Discharge Instructions 02/20/25 1131 MR#: [id number] Acct: [id number] Name: HYUN ELIAS Rep #: [id number] : 1975 49 From: Hernan Vincent MD PCP: Dr. Cristian Adame MD Status:REG [facility] Discharge Instructions Procedure Port-A-Cath Diet Discharge Diet: Light diet - advance as tolerated (Pain medication may cause nausea. You should typically eat light foods as you take your pain medication.) Activity Discharge Activity: Return to Normal Activity and May Shower (with your bandage in place in 1-2 days after surgery. DO NOT SHOWER WHEN YOUR PORT IS ACCESSED.) Additional Activity Instructions:: Alternate ibuprofen and Tylenol for pain control Dressing / Incision Call your doctor if your incision/area has: Continuous Slow Oozing, Sudden Increased Bleeding, Increased Pain/ Swelling, Increased Redness and Foul Smelling Discharge Call your doctor if you observe: Fever of 101 or Higher Remove Dressing in: 2 days Cleanse incision/area with: Soap Water Follow Up Care Please Follow Up With: Hernan Vincent MD When: as needed [phone] Test Results: Test results from this visit will be discussed in further detail at your follow-up appointment, if applicable. Discharge Plan Admission Attending Provider: Hernan Vincent Primary Care Provider: Cristian Adame Instructions Print Language: Serbian Discharge Orders/Prescriptions Prescriptions: No Action folic acid 1 mg tablet 1 mg PO QDAY ondansetron 4 mg tablet,disintegrating 4 mg PO Q8H PRN PRN (Reason: Nausea) metformin 500 mg tablet extended release 24 hr 1,000 mg PO QDAY lidocaine-prilocaine 2.5-2.5 % cream 1 applic topical ONCE PRN (Reason: port access) 30 Days Qty: 30 2RF dexamethasone 4 mg tablet 8 mg PO .COMPLEX Qty: 30 2RF Rx Instructions: 8 mg orally ONLY on days 2 3 of chemotherapy cycle rabeprazole [AcipHex] 20 MG tablet 20 mg PO DAILY oxycodone 5 mg tablet 5 mg PO Q6H PRN (Reason: pain) 3 Days Qty: 12 0RF Referrals / Follow Up: Cristian Adame MD [Primary Care Provider] - Disposition Disposition (needs filled in before D/C Order can be placed): Home, Self Care 02/20/25 1132 Hernan Vincent MD CC: Dr. Cristian Adame MD Signed [facility] Gl[facility] at [facility] deOrdered By: Hernan Vincent on 02-20-2025 Glucose [Mass/Vol] 215 mg/dL High 74-106 [facility] Comment on above: MANAGEMENT OF PATIEN T CARE PER NURSING PROTOCOL MR/POSTOP.ANEon 02-20-2025 MR/POSTOP.[facility] Medical Records Department [address] [place] [address] Anesthesia Postop Eval I 02/20/25 1135 MR#: [id number] Acct: [id number] Name: HYUN ELIAS Rep #: [id number] : 1975 49 From: Ana Viramontes CRNA PCP: Dr. Cristian Adame MD Status:[facility] Y Race: C Location: [place] [address] Anesthesia: Postop Eval I Current Vital Signs Temperature: 97.7 F Pulse Rate: 102 Blood Pressure: 92/70 Respiratory Rate: 16 Pulse Ox: 96 Oxygen Delivery Method: Room Air Assessment Airway patent: Yes Spontaneous unlabored respirations: Yes Mental status: Awake and Calm nausea: No Vomiting: No Anesthesia Complication: No Fluid Hydration Crystalloid volume administer (ml): 400 Total IV fluid infused: 400 Progress Note Anesthesia document: Postop Eval 1 completed: Yes 02/20/25 113 Date Ana Viramontes MACHINE [employer] CLEANER Cosigner Signature: Date CC: Signed [facility] Operative Reporton Operative Report [facility] Medical Records Department [address] [place] [address] Operative Report 02/20/25 1130 MR#: [id number] Acct: [id number] Name: HYUN ELIAS Rep #: [id number] : 1975 49 From: Hernan Vincent MD PCP: Dr. Cristian Adame MD Status:[facility] Location: [place] [address] Operative Report (Standard) Operative Information Date of Procedure: 02/20/25 Pre-Operative Diagnosis: Need for vascular access for chemotherapy for lung cancer Post-Operative Diagnosis: Same Surgery/Procedure Performed: Ultrasound and fluoroscopy guided right chest port placement utilizing right IJ vibratory pile driver: No Type of Anesthesia: Local MAC RN Documented Start/Stop Times: Operation Date: 02/20/25 11:00 Case Time Into Pre-Op 02/20/25 09:13 Out of Pre-Op 02/20/25 10:53 Anesthesia Start 02/20/25 10:55 Into Room 02/20/25 10:55 Procedure Start 02/20/25 11:13 Procedure End 02/20/25 11:26 Procedure Start Time: 11:13 Procedure Stop Time: 11:26 Select all DRAINS/GRAFTS/IMPLANTS that apply: Implanted device Implanted device details: 8 Cam[place]onian PowerPort Estimated Blood Loss: 5 Specimen collected: No Description of surgery: After obtaining informed consent patient was brought back to the operating room MAC anesthesia was induced and the right chest and neck were prepped in normal sterile fashion. Ultrasound was used to evaluate both IJs and the right IJ was selected. Next, using a needle, the right IJ was accessed and a guidewire was passed on into the superior vena cava under fluoroscopy guidance. A small incision was made over the puncture site and the dilator introducer was placed over the guidewire. Next this was capped and the pocket was made for the port. 1% lidocaine with epinephrine was injected in the proposed port site. An incision was made with scalpel. Electrocautery was used to make a pocket under the skin and subcutaneous tissue. Hemostasis was obtained. Next, the catheter was tunneled up to the neck incision site and placed through the introducer. The peel-away introducer was removed and the position of the catheter was confirmed on fluoroscopy. Next, the catheter was trimmed and attached to the port with the locking device. Interrupted 2-0 Vicryl sutures were used to anchor the port to the chest wall and then the port was placed inside the pocket. The pocket was then flushed with saline and the port irrigated with saline. There was good blood return and the port flushed easily. Next, heparin was injected into the port. The skin was closed with subcutaneous interrupted 3-0 Vicryl sutures. A single 3-0 Vicryl sutures placed under the skin at the neck incision site. Steri-Strips were placed as well as op sites. Patient tolerated procedure well, was taken to PACU in stable condition. Chest x-ray will be obtained. Surgical Findings: None Complications Complications: No Admit VTE Documentation VTE Mechan Device Prophylaxis: SCD's 02/20/25 1131 Cosigner Signature (if applicable): CC: Dr. Hernan Vincent MD; Dr. Cristian Adame MD S[facility] Office Visit (FAMP[facility] ) HYUN ELIAS ([id number]) 1975 M Date Time Provider Department 02/16/25 1:40 PM [facility] today, we recorded the following information about you: Pulse Blood pressure Weight 112/minute 100/72 62.4 kg Cristian Adame MD 02/16/2025 2:00 PM Signed - Take oxycodone 5 mg to 10 mg, 1-2 tablets every 6 hours as needed for pain; prescription sent for two weeks. Monitor for increased drowsiness, breathing changes, and worsening constipation. - Continue the Miralax sample packets as needed to maintain regular bowel movements. - Keep Narcan (naloxone) at home and review how to use it in case of an opioid emergency. - Continue metformin for diabetes and check your blood sugar at home with your meter. Record values and call the clinic if any reading exceeds 350 mg/dL to discuss possible insulin. - Continue your stomach-protective medication (PPI/Aciphex) as prescribed. - Eat as much as you can; if solid foods are difficult, try calorie-rich drinks such as Ensure or Kake Instant Breakfast to help maintain your weight. - Port placement is scheduled at the hospital on the to prepare for chemotherapy access--please arrive as planned. - Your oncology team will begin chemo-immunotherapy with Abraxane, carboplatin, and pembrolizumab; stay in close contact with them for treatment dates and instructions. - All new and adjusted prescriptions have been sent to [facility] for your convenience. - Call or message the clinic in two weeks to report on your pain control and any side effects from medication changes. - Plan for a follow-up visit in about six weeks (in-person or virtual) to reassess your comfort, bowel function, and overall response to treatment. - You have quit smoking--continue to stay smoke-free to help your breathing and overall health. 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 - Recent PET scan on 02/06/25 showed marked interval worsening of bilateral pulmonary, bilateral hilar mediastinal, pancreatic body, left retroperitoneal hepatic, and osseous malignancy metastatic disease. - Biopsy confirmed diagnosis. - Prognosis is poor, but Hyun wishes to try chemotherapy and immunotherapy. - Scheduled for port placement on 02/20/25. - Experiencing dyspnea when going up and down stairs. - Denies hemoptysis; reports frequent coughing. - Recently quit smoking cold turkey. - Denies current marijuana use due to lung discomfort. Pain Management: - Experiencing constant pain, worse at night, making it difficult to find a comfortable sleeping position. - Pain localized to the left flank, back, and occasionally the right side. - Currently taking oxycodone 5 mg every 6 hours PRN. - Reports constipation as a side effect of pain medication; using Miralax with some relief. - Denies use of Narcan at home. - Oncology currently has been having us manage his pain. - Pain meds are currently helping to function. Due to his widespread disease. Weight Loss and Poor Appetite: - Significant weight loss from 165 lbs in November to 137 lbs recently. - Poor appetite, previously managed with marijuana use. - Reports recent weight gain of 1.5 lbs, but lost the next day. Hyperglycemia: - Recent CMP showed glucose of 277 mg/dL. - Most recent A1c was 7.5%. - Resumed taking metformin to manage blood sugar levels. - Blood sugar readings range from 150-218 mg/dL. - Denies use of insulin; has a fear of needles. Declines ss insulin. - Monitoring blood sugar at home with assistance. MEDICATIONS: Current Outpatient Medications Medication Sig ondansetron orally disintegrating (ZOFRAN ODT) 4 mg disintegrating tablet Take 1 tablet by mouth every 8 hours as needed for nausea/vomiting. metFORMIN ER (GLUCOPHAGE XR) 500 mg 24 hr tablet Take 2 tablets by mouth once daily. RABEprazole (ACIPHEX) 20 mg tablet Take 1 tablet by mouth once daily. naloxone 4 mg/actuation nasal spray (NARCAN) Use 1 spray in one nostril as needed for overdose. May repeat every 2 to 3 min in alternating nostrils until medical assistance is available oxyCODONE IR (ROXICODONE) 5 mg immediate release tablet Take 1-2 tablets by mouth every 6 hours as needed for pain for up to 14 days. blood sugar diagnostic (BLOOD GLUCOSE TEST) test strip Test blood sugar(s) once daily. Dx: DM type II. Insulin: No Lancets Use with blood glucose test once daily No current facility-administered medicat (more content not included)... Normal [facility] MR/PAT.David 02-15-2025 MR/PAT.[facility] Medical Records Department [address] [place] [address] PAT - Anesthesia 02/15/25 1656 MR#: [id number] Acct: [id number] Name: HYUN ELIAS Rep #: [id number] : 1975 49 From: Naeem Carter MD PCP: Dr. 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 When Was Last Pacemaker Check QUESTION #4 FULL TEXT: You/Your Family Experience fever (hyperthermia) with Anesthesia Last Oral Intake Last Oral intake: Last Oral Intake NPO since Meds taken in AM with sips of water? Meds patient instructed to take am of surgery PONV PONV - telephone station installer: PONV - telephone station installer Female No 02/15/25 15:09 HX of Motion Sickness No 02/15/25 15:09 HX of N/V After Surgery No 02/15/25 15:09 Non-Smoker Yes 02/15/25 15:09 Duration of Surgery greater No 02/15/25 15:09 than 60 minutes Number of Risk Factors 1 02/15/25 15:09 PONV Score Low Risk 02/15/25 15:09 Height Weight Height Weight: Anesthesia: Height Weight Height 5 ft 9 in 02/12/25 14:31 Respiratory Assessment Respiratory Assessment - telephone station installer: Respiratory Tract Infection Hx - telephone station installer Hx Respiratory Tract Infection No 02/15/25 15:09 STOP Sleep Apnea STOP Sleep Apnea - telephone station installer: STOP Sleep Apnea - telephone station installer Hx Hypertension No 02/15/25 15:09 Hx Sleep Apnea No 02/15/25 15:09 CPAP BIPAP Do you snore loudly (louder No 02/15/25 15:09 than talking or can be heard Do you often feel tired/ No 02/15/25 15:09 fatigued/ sleepy during daytime? Has anyone observed you stop No 02/15/25 15:09 breathing during sleep? STOP Results Negative 02/15/25 15:09 QUESTION #5 FULL TEXT : Do you snore loudly (louder than talking or can be heard through closed doors)? Tobacco Use History Tobacco Use History - telephone station installer: Tobacco Use History - telephone station installer Tobacco Use Smoking Status Former smoker 02/15/25 15:09 Hx Tobacco Use Yes 02/15/25 15:09 Years Smoking Packs Smoked per Day Smoking Cessation Date was Yes - quit smoking within 15 02/15/25 15:09 within the last 15 years years Hx Smoking Cessation Date Hx Smoking Cessation Counseling Hematologic Medial History Hematologic Hx - telephone station installer: Hematologic Medical Hx - bi data architect Hx of Blood Transfusion No 02/15/25 15:09 Hx of Transfusion in last 3 No 02/15/25 15:09 Months Date of Last Transfusion (if within last 3 months) Ever experience any problems No 02/15/25 15:09 with transfusion(s)? Specify any problems Hx of Preganancy in last 3 N/A 02/15/25 15:09 Months Nurse Filling Out Transfusion [email or web address] 02/15/25 15:09 Questions: Date: 02/15/25 02/15/25 15:09 Time: 15:11 02/15/25 15:09 Patient unable to answer at this time (ie. confused, unrespo /Reproduction History /Reproductive History - telephone station installer: /Reproductive Hx- telephone station installer Hx Now Gestational Age (in weeks): EDC: Hx Hx Para [facility] Medical History (Updated 02/15/25 @ 15:17 by Jose Adorno) Wears dentures Wears glasses Back pain Gastric reflux Former smoker History of stress test Cancer Encounter for education Home Medications ???Medication ???Instructions ???Recorded ???Last Taken ???Type rabeprazole 20 mg tablet,delayed 20 mg PO DAILY 01/20/15 11/11/24 H istory release (AcipHex) oxycodone 5 mg tablet 5 mg PO Q6H PRN pain 3 days #12 Unknown Rx tabs folic acid 1 mg tablet 1 mg PO QDAY 01/18/25 Unknown Hist ory ondansetron 4 mg disintegrating 4 mg PO Q8H PRN PRN Nausea 5 Unknown History tablet metformin 500 mg tablet,extended 1,000 mg PO QDAY 02/12/25 Unknown History release 24 hr dexamethasone 4 mg tablet 8 mg (2 x 4 mg) PO .COMPLEX #30 Unknown Rx tabs lidocaine-prilocaine 2.5 %-2.5 % 1 applic topical ONCE PRN port 12/03 Unknown Rx topical cream access 30 day (more content not included)... Normal [facility] Surgery Visit Reporton 02-15 Surgery Visit Report [facility] [address] [place] [address] OFFICE VISIT Date of Service: 02/15/25 MR#: [id number] Acct: [id number] Name: HYUN ELIAS Rep #: [id number] : 1975 Provider: Dr. Hernan mulligan MD Age/Sex: 49/M Location: [facility] Status: Signed Intake Vital Signs 02/12/25 14:31 02/13/25 16:44 02/15/25 14:11 Height 5 ft 9 in 5 ft 9 in 5 ft 9 in Weight: 138 lb BMI 20.3 BP 98/66 Blood Pressure Location Rt brachial Position Sitting Respiration 18 Pulse 112 H Pulse Source Monitor Temp 97.2 F L Temp Source Temporal Pulse Oximetry (%) 92 Oxygen Delivery Method room air Intake Visit Reasons: PORT PLACEMENT Chief Complaint: port placement Accompanied by: Is patient in pain?: Yes Allergies sulfamethoxazole (From Bactrim) Allergy (Verified 02/15/25 14:13) Unknown trimethoprim (From Bactrim) Allergy (Verified 02/15/25 14:13) Unknown amoxicillin trihydrate (From Augmentin) Adverse Reaction (Verified 02/15/25 14:13) Nausea potassium clavulanate (From Augmentin) Adverse Reaction (Verified 02/15/25 14:13) Nausea Medications ???Medication ???Instructions ???Recorded ???Confirmed ???Type rabeprazole 20 mg tablet,delayed 20 mg PO DAILY 01/20/15 02/15/25 H istory release (AcipHex) oxycodone 5 mg tablet 5 mg PO Q6H PRN pain 3 days #12 02/15/25 Rx tabs folic acid 1 mg tablet 1 mg PO QDAY 01/18/25 02/15/25 His tory ondansetron 4 mg disintegrating 4 mg PO Q8H PRN PRN Nausea 5 02/15/25 History tablet metformin 500 mg tablet,extended 1,000 mg PO QDAY 02/12/25 02/15/25 History release 24 hr dexamethasone 4 mg tablet 8 mg (2 x 4 mg) PO .COMPLEX #30 02/15/25 Rx tabs lidocaine-prilocaine 2.5 %-2.5 % 1 applic topical ONCE PRN port 12/0302/15/25 Rx topical cream access 30 days #30 grams [facility] Medical History Encounter for education Surgical History History of hernia surgery History of appendectomy History of surgery on arm Family History Mother Diabetes Cancer Father Diabetes Grandmother Cancer Social History Smoking Status: Former smoker quit date: 01/07/25 second hand exposure: Yes alcohol intake: never substance use type: does not use HPI HPI HPI: Patient is a 49-year-old male here for port placement for lung cancer. ROS General General: Yes weight change and fatigue; No appetite, colon cancer, breast cancer or weakness Endo Endocrine: Yes diabetes mellitus; No thyroid disease, thyroid cancer, Hair loss, heat intolerance or cold intolerance Skin Skin: No rash or changing moles Musc Musculoskeletal: Yes back problems; No arthritis, rheumatoid arthritis, gout or joint pain Cardio Cardiovascular: Yes heart attack; No murmur, pacemaker, heart disease, atrial fibrillation, high blood pressure, heart stent, palpitations, shortness of breath with exertion or chest pain Psych Psychiatric: No depression, anxiety or hearing voices Resp Respiratory: Yes shortness of breath, No sleep apnea, Yes cough, No COPD, No asthma, No emphysema and No wheezing Gastro Gastrointestinal: Yes abdominal pain, No nausea or vomiting, No diarrhea, Yes constipation, No blood in stool, Yes acid reflux, No hemorrhoids, No ulcers, No gallbladder problem and No black,tarry stools Maverick Hematologic: No blood thinners, No blood disorders, No bleeding, No anemia and No blood clots Neuro Neurologic: No numbness, No tingling and No weakness Exam Const General: cooperative Orientation: alert and oriented x3 HENMT Head: normal to inspection Neck Neck: normal visual inspection and full ROM Chest Chest palpation inspection: normal inspection of the chest Resp Effort Inspection: normal respiratory effort Auscultation: clear to auscultation bilaterally Cardio Rate: regular rate Rhythm: regular rhythm GI Inspection: non-distended Palpation: soft and nontender Skin General: no rashes or lesions noted Neuro General: patient alert and patient oriented x3 Extrem General: full ROM Psych Appearance: grossly normal Mental Status: mental status grossly normal Assessment and Plan Assessment and Plan (1) Encounter for adjustment and management of vascular access device: Status: Acute Plan: I discussed right chest port placement with the patient in detail. I discussed the procedure in detail as well as the risks of bleeding, infection, pneumothorax, line infection or DVT. Patient understands the risks and is willing to proc (more content not included)... Normal [facility] 02-13-2025 [facility] Telephone (CONTRERAS) DAVEMIALEXEY,HYUN Low ([id number]) 1975 M Date Time Provider Department 02/13/25 [facility] During your visit today, we recorded the following information about you: Emelia Mcclendon, RN 02/13/2025 3:59 PM Signed Patient's partner Trudy Rice calling in. States pt has been diagnosed with Stage IV lung cancer with metastasis. Sees [facility]. Pt to be getting an infusion port soon and to start chemo on 02/22. Trudy states pt's pain medication is not as effective as it once was. Pt has moderate to severe left side pain, under left rib area, and in tailbone area as well. Trudy states the current oxycodone IR 5 mg is not helping his pain very much. Pt has appt with Dr. Adame this Wednesday, however Trudy is asking if Dr. Adame would consider increasing his pain medication until seen? Trudy states they spoke with the cancer center and they advised calling PCP office about pain medication. Please call Trudy back with reply. [phone] DOLORES Mendoza William J, MD 02/13/2025 4:20 PM Addendum That is already a pretty hefty med. Would need to see us to decide what to do if needs higher doses. If it is acutely worse, needs ER. Raiza Rodrigez LPN 02/13/2025 4:54 PM Signed Mother notified. Allergies As of Date: 02/13/2025 Noted Allergy Reaction AUGMENTIN (AMOXICILLIN-POT CLAVUL*05/08/2011 6 - Diarrhea BACTRIM (SULFAMETHOXAZOLE) 06/27/2012 7 - Swelling Date Reviewed: 12/15/2024 Reviewed by: Raiza Rodrigez LPN - Fully Assessed Reason for Visit: Patient Request [[id number]] Prescriptions as of 02/13/2025 - oxyCODONE IR (ROXICODONE) 5 mg immediate release tablet Take 1 tablet by mouth every 6 hours as needed for pain for up to 7 days. - ondansetron orally disintegrating (ZOFRAN ODT) 4 mg disintegrating tablet Take 1 tablet by mouth every 8 hours as needed for nausea/vomiting. - blood sugar diagnostic (BLOOD GLUCOSE TEST) test strip Test blood sugar(s) once daily. Dx: DM type II. Insulin: No - Lancets Use with blood glucose test once daily - metFORMIN ER (GLUCOPHAGE XR) 500 mg 24 hr tablet Take 2 tablets by mouth once daily. - RABEprazole (ACIPHEX) 20 mg tablet Take 1 tablet by mouth once daily. - naloxone 4 mg/actuation nasal spray (NARCAN) Use 1 spray in one nostril as needed for overdose. May repeat every 2 to 3 min in alternating nostrils until medical assistance is available - ferrous sulfate 325 mg (65 mg iron) tablet Take 1 tablet by mouth two times a day with meals. - folic acid 1 mg tablet Take 1 tablet by mouth once daily. Meds Comments as of 04/03/2019: Uses medication to help with bladder control, unsure what medication is. Problem List As Of Date 02/13/2025 Noted Resolved DYSTHYMIC DISORDER [F34.1] Depressive disorder, [...] [D64.9] 12/19/2024 Folic acid deficiency [E53.8] 12/19/2024 Primary malignant neoplasm of lung metastatic t*01/25/2025 Generalized abdominal pain [R10.84] 01/25/2025 Encounter Status:Closed by RAIZA RODRIGEZ on 02/13/25 Normal [facility] Oncology Visit Reporton Oncology Visit Report [facility] [address] [place] [id number] OFFICE VISIT Date of Service: 02/13/25 1643 MR#: [id number] Acct: [id number] Name: HYUN ELIAS Rep #: [id number] : 1975 From: Yelena Gallegos NP LITIGATION PARALEGAL -C Age/Sex: 49/M Location: [facility] Status: Signed HPI Subjective Date of Service 02/13/25 Chief Complaint Education visit-Abraxane, carboplatin, pembrolizumab. History of Present Illness 49-year-old man presented to the ER with abdominal pain, CT of the chest, on 11/12/2024 showed multiple bilateral pulmonary nodules with mediastinal and hilar adenopathy, hypodensity in the liver with large necrotic retroperitoneal and gastric lymphadenopathy compatible with hepatic and marielena metastatic disease. Abdomen and pelvis. He had a CT-guided biopsy on 01/04/2025. 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 02/06/2025 PET/CT showed Pain being managed by PCP. Interval History The patient is presenting to clinic accompanied by for an education visit to discuss Abraxane, carboplatin, pembrolizumab. [facility] Medical History (Updated 02/13/25 @ 16:57 by Yelena Gallegos NP, LITIGATION PARALEGAL-C) Encounter for education Surgical History History of hernia surgery History of appendectomy History of surgery on arm Family History Mother Diabetes Cancer Father Diabetes Grandmother Cancer Social History Smoking Status: Former smoker quit date: 01/07/25 second hand exposure: Yes alcohol intake: never substance use type: does not use ROS ROS Narrative Negative except as documented in the interval HPI Intake Vital Signs 02/12/25 14:31 02/13/25 16:43 02/13/25 16:44 Height 5 ft 9 in 5 ft 9 in 5 ft 9 in Weight: 141 lb 3 oz 141 lb BMI 20.8 20.8 BP 112/78 Blood Pressure Location Lt brachial Position Sitting Respiration 18 Pulse 111 H Pulse Source Monitor Temp 98.5 F Temperature Source Temporal Artery Pulse Oximetry (%) 94 Oxygen Delivery Method room air Intake Is patient in pain?: Yes (left side ) Pain scale (1-10): 6 Allergies sulfamethoxazole (From Bactrim) Allergy (Verified 02/13/25 16:45) Unknown trimethoprim (From Bactrim) Allergy (Verified 02/13/25 16:45) Unknown amoxicillin trihydrate (From Augmentin) Adverse Reaction (Verified 02/13/25 16:45) Nausea potassium clavulanate (From Augmentin) Adverse Reaction (Verified 02/13/25 16:45) Nausea Medications ???Medication ???Instructions ???Recorded ???Confirmed ???Type rabeprazole 20 mg tablet,delayed 20 mg PO DAILY 01/20/15 02/13/25 H istory release (AcipHex) oxycodone 5 mg tablet 5 mg PO Q6H PRN pain 3 days #12 02/13/25 Rx tabs folic acid 1 mg tablet 1 mg PO QDAY 01/18/25 02/13/25 His tory ondansetron 4 mg disintegrating 4 mg PO Q8H PRN PRN Nausea 5 02/13/25 History tablet metformin 500 mg tablet,extended 1,000 mg PO QDAY 02/12/25 02/13/25 History release 24 hr dexamethasone 4 mg tablet 8 mg (2 x 4 mg) PO .COMPLEX #30 02/13/25 Rx tabs lidocaine-prilocaine 2.5 %-2.5 % 1 applic topical ONCE PRN port 12/0302/13/25 Rx topical cream access 30 days #30 grams Have you fallen in the past year?: No Central Venous Access Central Venous Access: No Exam Physical Exam Narrative PS 1 Low back pain Const alert, oriented x3 and no apparent distress HEENT normocephalic, external ears normal and external nose normal Psych Attitude: calm and engaged Coding Level of Care Code Off vis,est,level 5 Exam Problem Focused Diagnoses 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 Plan: The patient has been thoroughly educated to risks/benefits associated with Abraxane, carboplatin, pembrolizumab. Specifically, he has been educated to potential side effects, recommendations for symptom management, and circumstances in which he should contact provider immediately, such as the development of any signs/symptoms of infection inclusive of temperature > 100.4. Encouraged to go directly to ED should fever occur outside normal clinic hours. He has been provided written educational information and after hours contact information and pr (more content not included)... Normal [facility] Absolute lymphocyte countOrd ered By: Regino Burleson on 02-12-2025 Lymphocytes Auto (Unsp spec) [#/Vol] 1.02 10*3/uL 0.83-4.51 [facility] Absolute neutrophil countOrd ered By: Regino Calderonjhoan on 02-12-2025 Neutrophils (Bld) [#/Vol] 7.8 10*3/uL High 2.0-7.7 [facility] Anion gap in Serum or Plasma Ordered By: Regino Sarah Beth on 02-12-2025 Anion gap [Moles/Vol] 12 mmol/L 5-15 [facility] Automated lymphocyte count a s percentage of total leukocytesOrdered By: Regino Calderonjhoan on 02-12-2025 Lymphocytes/100 WBC Auto (Unsp spec) 10.5 % Low 19-41 [facility] BUN/creatinine ratioOrdered By: [facility] on 02-12-2025 Urea nitrogen/Creatinine [Mass ratio] 12.9 mg/mg 10-20 [facility] Basophil percentageOrdered B y: Regino Burleson on 02-12-2025 Basophils/100 WBC (Bld) 0.8 % 0-1 [facility] Bilirubin, totalOrdered By: Regino Burleson on 02-12-2025 Bilirubin [Mass/Vol] 0.49 mg/dL 0.00-1.30 [facility] CBC W/Diff, Automatedon Absolute Lymph 1.02 X10 3/uL Normal 0.83-4.51 [facility] Comment on above: Performed By: #### L 500.4050, L100.0100, L501.2300, L504.2610, L501.5200 #### [facility] [address] [place], [address] Absolute Neut 7.8 X10 3/uL High 2.0-7.7 [facility] Comment on above: Performed By: #### L 500.4050, L100.0100, L501.2300, L504.2610, L501.5200 #### [facility] [address] [place], [address] Basophils/100 WBC (Bld) 0.8 % Normal 0-1 [facility] Comment on above: Performed By: #### L 500.4050, L100.0100, L501.2300, L504.2610, L501.5200 #### [facility] [address] [place], [address] Eosinophils/100 WBC (Bld) 1.0 % Normal 0-5 [facility] Comment on above: Performed By: #### L 500.4050, L100.0100, L501.2300, L504.2610, L501.5200 #### [facility] [address] [place], [address] Erythrocyte distribution width (RBC) [Ratio] 15.2 % High 11.6-14.6 [facility] Comment on above: Performed By: #### L 500.4050, L100.0100, L501.2300, L504.2610, L501.5200 #### [facility] [address] [place], [address] Hematocrit (Bld) [Volume fraction] 32.7 % Low 40-54 [facility] Comment on above: Performed By: #### L 500.4050, L100.0100, L501.2300, L504.2610, L501.5200 #### [facility] [address] [place], [address] Hemoglobin (Bld) [Mass/Vol] 10.4 g/dL Low 13.0-16.5 [facility] Comment on above: Performed By: #### L 500.4050, L100.0100, L501.2300, L504.2610, L501.5200 #### [facility] [address] [place], [address] IG% 0.700 Normal 0.0-0.9 [facility] Comment on above: Result Comment: IG% - Immature Granulocytes (promyelocytes, myelocytes and metamyelocytes) > 1% indicates that a LEFT SHIFT is Present. Performed By: #### L 500.4050, L100.0100, L501.2300, L504.2610, L501.5200 #### [facility] [address] [place], [address] Lymphocytes/100 WBC (Bld) 10.5 % Low 19-41 [facility] Comment on above: Performed By: #### L 500.4050, L100.0100, L501.2300, L504.2610, L501.5200 #### [facility] [address] [place], [address] MCH (RBC) [Entitic mass] 25.9 pg Low 27.0-32.0 [facility] Comment on above: Performed By: #### L 500.4050, L100.0100, L501.2300, L504.2610, L501.5200 #### [facility] [address] [place], [address] MCHC (RBC) [Mass/Vol] 31.8 g/dL Low 32-36 [facility] Comment on above: Performed By: #### L 500.4050, L100.0100, L501.2300, L504.2610, L501.5200 #### [facility] [address] [place], [address] MCV (RBC) [Entitic vol] 81.5 fL Normal 80-94 [facility] Comment on above: Performed By: #### L 500.4050, L100.0100, L501.2300, L504.2610, L501.5200 #### [facility] [address] [place], [address] Monocytes/100 WBC (Bld) 6.9 % Normal 0-10 [facility] Comment on above: Performed By: #### L 500.4050, L100.0100, L501.2300, L504.2610, L501.5200 #### [facility] [address] [place], [address] Neutrophils/100 WBC (Bld) 80.1 % High 47-70 [facility] Comment on above: Performed By: #### L 500.4050, L100.0100, L501.2300, L504.2610, L501.5200 #### [facility] [address] [place], [address] Nucleated RBC (Bld) [#/Vol] 0 10*3/uL Normal 0-5 [facility] Comment on above: Performed By: #### L 500.4050, L100.0100, L501.2300, L504.2610, L501.5200 #### [facility] [address] [place], [address] Platelet mean volume (Bld) [Entitic vol] 9.9 fL Normal 6.2-12.0 [facility] Comment on above: Performed By: #### L 500.4050, L100.0100, L501.2300, L504.2610, L501.5200 #### [facility] [address] [place], [address] Platelets (Bld) [#/Vol] 493 10*3/uL High 150-450 [facility] Comment on above: Performed By: #### L 500.4050, L100.0100, L501.2300, L504.2610, L501.5200 #### [facility] [address] [place], [address] RBC (Bld) [#/Vol] 4.01 10*6/uL Low 4.6-6.2 [facility] Comment on above: Performed By: #### L 500.4050, L100.0100, L501.2300, L504.2610, L501.5200 #### [facility] [address] [place], [address] RDW SD 45.8 fl High 35.1-43.9 [facility] Comment on above: Performed By: #### L 500.4050, L100.0100, L501.2300, L504.2610, L501.5200 #### [facility] [address] [place], [address] WBC (Bld) [#/Vol] 9.7 10*3/uL Normal 4.4-11.0 [facility] Comment on above: Performed By: #### L 500.4050, L100.0100, L501.2300, L504.2610, L501.5200 #### [facility] [address] [place], [address] Carbon dioxide, total [Moles /volume] in Central venous bloodOrdered By: Regino Burleson on 02-12-2025 CO2 [Moles/Vol] 21.6 mmol/L 21.0-32.0 [facility] Chloride assayOrdered By: Sandie Burleson on 02-12-2025 Chloride [Moles/Vol] 92 mmol/L Low 98-108 [facility] Comprehensive Metabolic Prof ilon 02-12-2025 Albumin [Mass/Vol] 3.1 g/dL Low 3.5-5.0 [facility] Comment on above: Performed By: #### L 501.5500, L501.7300, L501.7400 #### [facility] [address] [place], [address] Albumin/Globulin [Mass ratio] 0.6 {ratio} Low 0.9-2.4 [facility] [facility] Comment on above: Performed By: #### L 501.5500, L501.7300, L501.7400 #### [facility] [address] [place], [address] ALK PHOS 95 U/L Normal 40-129 [facility] Comment on above: Performed By: #### L 501.5500, L501.7300, L501.7400 #### [facility] [address] [place], [address] ALT [Catalytic activity/Vol] 27 U/L Normal <=46 [facility] Comment on above: Performed By: #### L 501.5500, L501.7300, L501.7400 #### [facility] [address] [place], [address] AST [Catalytic activity/Vol] 31 U/L Normal <=37 [facility] Comment on above: Performed By: #### L 501.5500, L501.7300, L501.7400 #### [facility] [address] [place], [address] Bilirubin [Mass/Vol] 0.49 mg/dL Normal 0.00-1.30 [facility] Comment on above: Performed By: #### L 501.5500, L501.7300, L501.7400 #### [facility] [address] [place], [address] BUN/CRE 12.9 RATIO Normal 10-20 [facility] Comment on above: Performed By: #### L 501.5500, L501.7300, L501.7400 #### [facility] [address] [place], [address] Calcium [Mass/Vol] 9.2 mg/dL Normal 7.6-11.0 [facility] Comment on above: Performed By: #### L 501.5500, L501.7300, L501.7400 #### [facility] [address] [place], [address] Chloride [Moles/Vol] 92 mmol/L Low 98-108 [facility] Comment on above: Performed By: #### L 501.5500, L501.7300, L501.7400 #### [facility] [address] [place], [address] CO2 [Moles/Vol] 21.6 mmol/L Normal 21.0-32.0 [facility] Comment on above: Performed By: #### L 501.5500, L501.7300, L501.7400 #### [facility] [address] [place], [address] Creatinine [Mass/Vol] 0.84 mg/dL Normal 0.70-1.20 [facility] Comment on above: Performed By: #### L 501.5500, L501.7300, L501.7400 #### [facility] [address] [place], [address] GAP 12 Normal 5-15 [facility] Comment on above: Performed By: #### L 501.5500, L501.7300, L501.7400 #### [facility] [address] [place], [address] GFR/1.73 sq M.predicted among non-blacks MDRD (S/P/Bld) [Vol rate/Area] 106 mL/min/{1.73_m2} Normal >60 [facility] Comment on above: Result Comment: mL/m in/1.73m2 CKD-EPI Creatinine Equation (2020) Performed By: #### L 501.5500, L501.7300, L501.7400 #### [facility] [address] [place], [address] Globulin (S) [Mass/Vol] 4.8 g/dL High 2.2-4.2 [facility] Comment on above: Performed By: #### L 501.5500, L501.7300, L501.7400 #### [facility] [address] [place], [address] Glucose [Mass/Vol] 277 mg/dL High 70-99 [facility] Comment on above: Performed By: #### L 501.5500, L501.7300, L501.7400 #### [facility] [address] [place], [address] Potassium [Moles/Vol] 4.3 mmol/L Normal 3.3-5.1 [facility] Comment on above: Performed By: #### L 501.5500, L501.7300, L501.7400 #### [facility] [address] [place], [address] Sodium [Moles/Vol] 126 mmol/L Low 133-145 [facility] Comment on above: Performed By: #### L 501.5500, L501.7300, L501.7400 #### [facility] [address] [place], [address] T PROT 7.9 g/dL Normal 5.9-8.4 [facility] Comment on above: Performed By: #### L 501.5500, L501.7300, L501.7400 #### [facility] [address] [place], [address] Urea nitrogen [Mass/Vol] 11 mg/dL Normal 4-19 [facility] Comment on above: Performed By: #### L 501.5500, L501.7300, L501.7400 #### [facility] [address] [place], [address] Eosinophil percentageOrdered By: Regino Burleson on 02-12-2025 Eosinophils/100 WBC (Bld) 1.0 % 0-5 [facility] Erythrocyte distribution wid th ratioOrdered By: Regino Burleson on 02-12-2025 Erythrocyte distribution width (RBC) [Ratio] 15.2 % High 11.6-14.6 [facility] Erythrocyte distribution wid th standard deviationOrdered By: Regino Burleson on 02-12-2025 Erythrocyte distribution width (RBC) [Ratio] 45.8 fl High 35.1-43.9 [facility] Glomerular filtration rate ( GFR) estimation/1.73 sq m using serum, plasma, or whole bOrdered By: Regino Burleson on 02-12-2025 GFR/1.73 sq M.predicted among non-blacks MDRD (S/P/Bld) [Vol rate/Area] 106 mL/min/{1.73_m2} >60 [facility] Comment on above: mL/min/1.73m2 CKD-EP I Creatinine Equation (2020) Hematocrit Auto (Bld) [Volum e fraction]Ordered By: Regino Burleson on 02-12-2025 Hematocrit (Bld) [Volume fraction] 32.7 % Low 40-54 [facility] Hemoglobin measurementOrdere d By: Regino Burleson on 02-12-2025 Hemoglobin (Bld) [Mass/Vol] 10.4 g/dL Low 13.0-16.5 [facility] Immature granulocytes/100 WB C Auto (Bld)Ordered By: Regino Burleson on 02-12-2025 Immature granulocytes/100 WBC (Bld) 0.700 % 0.0-0.9 [facility] Comment on above: IG% - Immature Granu locytes (promyelocytes, myelocytes and metamyelocytes) > 1% indicates that a LEFT SHIFT is Present. LDHon 02-12-2025 LDH 113 U/L Normal 87-241 [facility] Comment on above: Order Comment: 1 Performed By: #### L 501.5500, L501.7300, L501.7400 #### [facility] [address] [place], [address] Laboratory - Chemistry and C hemistry - challengeOrdered By: Regino Burleson on 02-12-2025 AST [Catalytic activity/Vol] 31 U/L <38 [facility] Lactate dehydrogenase (LDH) measurementOrdered By: Regino Redwood Llcjhoan on 02-12-2025 LDH [Catalytic activity/Vol] 113 U/L 87-241 [facility] MCV (mean corpuscular volume ) determinationOrdered By: Regino Burleson on 02-12-2025 MCV (RBC) [Entitic vol] 81.5 fL 80-94 [facility] Magnesiumon 02-12-2025 Magnesium [Mass/Vol] 1.7 mg/dL Normal 1.5-2.2 [facility] Comment on above: Performed By: #### L 501.5500, L501.7300, L501.7400 #### [facility] [address] [place], [address] Magnesium measurement (mass/ volume)Ordered By: Regino Burleson on 02-12-2025 Magnesium (Unsp spec) [Mass/Vol] 1.7 mg/dL 1.5-2.2 [facility] Mean corpuscular hemoglobin (MCH) determinationOrdered By: Regino Burleson on 02-12-2025 MCH (RBC) [Entitic mass] 25.9 pg Low 27.0-32.0 [facility] Mean corpuscular hemoglobin concentration (MCHC) determinationOrdered By: Regino Burleson on 02-12-2025 MCHC (RBC) [Mass/Vol] 31.8 g/dL Low 32-36 [facility] Mean platelet volume determi nationOrdered By: Regino Burleson on 02-12-2025 Platelet mean volume (Bld) [Entitic vol] 9.9 fL 6.2-12.0 [facility] Monocyte percentageOrdered B y: Regino Burleson on 02-12-2025 Monocytes/100 WBC (Bld) 6.9 % 0-10 [facility] Neutrophil percentageOrdered By: Regino Burleson on 02-12-2025 Neutrophils/100 WBC (Bld) 80.1 % High 47-70 [facility] Nucleated red blood cell per centageOrdered By: Regino Burleson on 02-12-2025 Nucleated RBC/100 WBC (Bld) [Ratio] 0 % 0-5 [facility] Oncology Visit Reporton Oncology Visit Report [facility] [place] [facility] [address] [place] [address] OFFICE VISIT Date of Service: 02/12/25 1420 MR#: [id number] Acct: [id number] Name: HYUN ELIAS Rep #: [id number] : 1975 From: Regino Burleson MD Age/Sex: 49/M Location: [facility] [place] Status: Signed HPI Subjective Date of Service 02/12/25 Chief Complaint Referred for Lung cancer. History of Present Illness 49-year-old man presented to the ER with abdominal pain, CT of the chest, on 11/12/2024 showed multiple bilateral pulmonary nodules with mediastinal and hilar adenopathy, hypodensity in the liver with large necrotic retroperitoneal and gastric lymphadenopathy compatible with hepatic and marielena metastatic disease. Abdomen and pelvis. He had a CT-guided biopsy on 01/04/2025. 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 He had a PET CT scan done on 02/06/2025. He is now referred for further evaluation and management. He has low back pain for which he is being given narcotics by PCP. [facility] Surgical History History of hernia surgery History of appendectomy History of surgery on arm Family History Mother Diabetes Cancer Father Diabetes Grandmother Cancer Social History Smoking Status: Former smoker quit date: 01/07/25 second hand exposure: Yes alcohol intake: never substance use type: does not use ROS ROS Narrative PS 1 Constitutional Constitutional: Reports systems reviewed and no addt'l complaints, except as documented Eyes Eyes: Reports blurry vision left ENT HEENT: Reports systems reviewed and no addt'l complaints, except as documented Cardiovascular Cardiovascular: Reports systems reviewed and no addt'l complaints, except as documented Respiratory/Chest Respiratory/Chest: Reports systems reviewed and no addt'l complaints, except as documented Gastrointestinal Gastrointestinal: Reports systems reviewed and no addt'l complaints, except as documented Genitourinary Genitourinary: Reports systems reviewed and no addt'l complaints, except as documented Musculoskeletal Musculoskeletal: Reports systems reviewed and no addt'l complaints, except as documented Integumentary Integumentary: Reports systems reviewed and no addt'l complaints, except as documented Neurologic Neurologic: Reports systems reviewed and no addt'l complaints, except as documented Psychiatric Psychiatric: Reports systems reviewed and no addt'l complaints, except as documented Endocrine Endocrinology: Reports systems reviewed and no addt'l complaints, except as documented Hematologic/Lymphatic Hematologic/Lymphatic: Reports systems reviewed and no addt'l complaints, except as documented Allergic/Immunologic Allergic/Immunologic: Reports systems reviewed and no addt'l complaints, except as documented Intake Vital Signs 01/18/25 08:13 02/12/25 14:23 02/12/25 14:31 Height 5 ft 9 in 5 ft 9 in 5 ft 9 in Weight: 66.678 kg 64.042 kg 64.042 kg BMI 21.7 20.8 20.8 BP 105/71 107/73 Blood Pressure Location Rt brachial Lt brachial Position Sitting Sitting Respiration 16 18 Pulse 112 H 118 H Pulse Source Monitor Monitor Temp 97.6 F L 98 F Temperature Source Temporal Artery Temporal Artery Pulse Oximetry (%) 95 95 Oxygen Delivery Method room air room air Intake Is patient in pain?: Yes (left lower abdomen into back) Pain scale (1-10): 6 Allergies sulfamethoxazole (From Bactrim) Allergy (Verified 02/12/25 14:22) Unknown trimethoprim (From Bactrim) Allergy (Verified 02/12/25 14:22) Unknown amoxicillin trihydrate (From Augmentin) Adverse Reaction (Verified 02/12/25 14:22) Nausea potassium clavulanate (From Augmentin) Adverse Reaction (Verified 02/12/25 14:22) Nausea Medications ???Medication ???Instructions ???Recorded ???Confirmed ???Type rabeprazole 20 mg tablet,delayed 20 mg PO DAILY 01/20/15 02/12/25 H istory release (AcipHex) oxycodone 5 mg tablet 5 mg PO Q6H PRN pain 3 days #12 02/12/25 Rx tabs folic acid 1 mg tablet 1 mg PO QDAY 01/18/25 02/12/25 His tory ondansetron 4 mg disintegrating 4 mg PO Q8H PRN PRN Nausea 5 02/12/25 History tablet metformin 500 mg tablet,extended 1,000 mg PO QDAY 02/12/25 02/12/25 History release 24 hr Central Venous Access Central Venous Access: No Exam Physical Exam Narrative PS 1 Low back pain Const alert, oriented x3 and no apparent distress HEENT normocephalic, external ears normal and external nose normal Neck supple Lymph Lymphatic: no lymphadenopathy noted Resp normal respiratory effort and clear to auscultation bilaterally GI soft to palpa (more content not included)... Normal [facility] Phosphoruson 02-12-2025 Phosphate [Mass/Vol] 3.4 mg/dL Normal 2.7-4.5 [facility] Comment on above: Performed By: #### L 501.5500, L501.7300, L501.7400 #### [facility] [address] [place], [address] Platelet countOrdered By: Sandie Burleson on 02-12-2025 Platelets (Bld) [#/Vol] 493 10*3/uL High 150-450 [facility] Potassium measurement (mass/ volume)Ordered By: Regino Burleson on 02-12-2025 Potassium (Unsp spec) [Mass/Vol] 4.3 mmol/L 3.3-5.1 [facility] RBC Auto (Bld) [#/Vol]Ordere d By: Regino Burleson on 02-12-2025 RBC (Bld) [#/Vol] 4.01 10*6/uL Low 4.6-6.2 [facility] Serum creatinine measurement (mass/volume)Ordered By: Regino Burleson on 02-12-2025 Creatinine [Mass/Vol] 0.84 mg/dL 0.70-1.20 [facility] Serum globulin measurementOr dered By: Regino Burleson on 02-12-2025 Globulin (S) [Mass/Vol] 4.8 g/dL High 2.2-4.2 [facility] Serum glucose measurement (m ass/volume)Ordered By: Regino Burleson on 02-12-2025 Glucose [Mass/Vol] 277 mg/dL High 70-99 [facility] Serum or plasma alanine montenegro otransferase (ALT) measurementOrdered By: Regino Burleson on 02-12-2025 ALT [Catalytic activity/Vol] 27 U/L <47 [facility] Serum or plasma albumin darien urement (mass/volume)Ordered By: Regino Burleson on 02-12-2025 Albumin [Mass/Vol] 3.1 g/dL Low 3.5-5.0 [facility] Serum or plasma albumin/glob ulin mass ratioOrdered By: Regino Burleson on 02-12-2025 Albumin/Globulin [Mass ratio] 0.6 {ratio} Low 0.9-2.4 [facility] Serum or plasma alkaline maría sphatase measurementOrdered By: Regino Burleson on 02-12-2025 ALP [Catalytic activity/Vol] 95 U/L 40-129 [facility] Serum or plasma calcium darien urement (mass/volume)Ordered By: Regino Burleson on 02-12-2025 Calcium [Mass/Vol] 9.2 mg/dL 7.6-11.0 [facility] Serum or plasma urea nitroge n measurement (mass/volume)Ordered By: Regino Burleson on 02-12-2025 Urea nitrogen [Mass/Vol] 11 mg/dL 4-19 [facility] Sodium levelOrdered By: Junior Burleson on 02-12-2025 Sodium [Moles/Vol] 126 mmol/L Low 133-145 [facility] Total proteinOrdered By: Refugio Burleson on 02-12-2025 Protein [Mass/Vol] 7.9 g/dL 5.9-8.4 [facility] White blood cell (WBC) count Ordered By: Regino Burleson on 02-12-2025 WBC (Bld) [#/Vol] 9.7 10*3/uL 4.4-11.0 [facility] Positron emission tomography scan reportOrdered By: Theodore Lynch on 02-07-2025 PT Unspecified body region [facility] Services [address] [place] [address] PET/CT Tumor Base -Thigh Init MR#: [id number] Acct: [id number] Name: HYUN ELIAS Rep #: [id number] : 1975 M 49 From: Edy Lynch MD PCP: Dr. Cristian Adame MD Status: REG C SARATH Study:PET/CT Tumor Base -Thigh Init Date of E xam: 02/06/25 Exam# [id number] Ordering Dr: Edy Cardenas NP L[facility]IGATION [facility]-C PROCEDURE: PET/CT TUMOR BASE -THIGH INIT 02/06/2025 REASON FOR EXAM: 49 y/o M with LUNG Right lower lobe malignant neoplasm. TECHNIQUE: Following the intravenous administration of radionucleotide, image acquisition on a dedicated PET/CT unit was performed at one hour post injection. A preliminary CT study encompassing the Skull base, neck, chest, abdomen, pelvis, and proximal thighs was performed for purposes of attenuation correction and anatomic localization. The proximal thighs were also included. The patient's blood glucose level was 197 mg/dL (allowable range: 50-180 mg/dL). RADIOPHARMACEUTICAL: 12.75 mCi 18F-FDG (Fluorodeoxyglucose F18) IV was injected into he patient. RADIATION DOSE SUMMARY: Effective Dose: Approximately 7 mSv for a standard whole-body PET scan Organ Doses: Varies by organ, with higher doses typically to the bladder, liver,and brain COMPARISON: COMPARISON FROM CT, PET OR OTHER PERTINENT EXAMS: CT examination of 11/12/2024. FINDINGS: Physiologic uptake: There may be expected metabolic uptake within the brain, tongue and floor of the mouth and larynx/vocal cords, heart, jordana (many normal individuals have hilar uptake in less than 3 nodes with mildly avid hilar nodes less than 2.7 SUV), liver and spleen, system, and GI tract and symmetric muscle uptake. FDG AVID AND NON-AVID LESIONS. Reported avid SUV values (g/mL*) are maximum SUV. NECK: There are no significant neck abnormalities. CHEST: Chest wall- There are no significant chest wall abnormalities. Axilla- There are no significant axillary abnormalities. Lung parenchyma and Jordana- Innumerable/severe hypermetabolic nodules/masses are seen throughout bilateral lungs and bilateral jordana. These have worsened significantly since the prior study of 11/12/2024. Mediastinum- Numerous hypermetabolic mediastinal nodule/masses are seen. These have worsenedsignificantly since the prior study of 11/12/2024. Pleura- There are no significant pleural abnormalities. ABDOMEN: Stomach- No significant abnormalities. Liver- At least 2 hypermetabolic foci are seen within the right lobe of the liver, withSUV max of the more posterior 3.0. And SUV max the more central of of 2.7. Correlating with CT images, these have atypical appearance metastatic disease. Spleen- No significant abnormalities. Pancreas- A hypermetabolic mass in the body of the pancreas, also extend superiorly. It is measured at approximately 37 x 45 mm in transverse dimension. SUV max is 20.5. This is not seen, even in retrospect, on the CT of 11/12/2024. This is highly concerning for malignancy. Also, a chain left retroperitoneal hypermetabolic masses/lymph nodes is seen, with the largest being most medial with SUV max of 32.3, and approximate size 23 x 28 mm in transverse dimension. Kidneys-No significant abnormalities. Bowel- Normal bowel activity. Spine- No significant abnormalities. PELVIS: Bowel- Normal physiologic bowel activity is identified. Masses- There are no pelvic masses. Bones- Sclerotic hypermetabolic area involving a large portion of the T6 vertebral body. SUV max is Scattered lesser areas of hypermetabolic activity in the vertebral bodies, inferior right acetabulum, medial right pubic bone, perhaps elsewhere in the skeleton. These areas are indeed concerning for osseous metastatic disease. Degenerative changes of the spine are seen. PET/PET/CT Tumor Base -Thigh Init IMPRESSION: FDG avid- Marked interval worsening of bilateral pulmonary, bilateral hilar, mediastinal, pancreatic body, left retroperitoneal, hepatic, and osseous malignancy/metastatic disease. Other: No additional comments. Please note the low-dose CT scan was performed to facilitate PET image reconstruction and anatomic localization and does not replace a diagnostic CT. Any diagnostic CT requested and performed at the time of the PET will be reported separately. Reading Location: [place] [address] CC: RODRIGUEZ Cardenas; Dr. Cristian Adame MD ~ Manager Behavior: Signed [facility] PET/CT Tumor Base -Thigh Ini ton 02-06-2025 PET/CT Tumor Base -Thigh Init [facility] Imaging Services [address] [place] [address] PET/CT Tumor Base -Thigh Init MR#: [id number] Acct: [id number] Name: HYUN ELIAS Rep #: [id number] : 1975 M 49 From: Theodore Julian PCP: Dr. Cristian Adame MD Status: [facility] Study: PET/CT Tumor Base -Thigh Init Date of Exam: Exam# [id number] Ordering Dr: Tayler Cardenas NP L[facility]IG[facility] PROCEDURE: PET/CT TUMOR BASE -THIGH INIT 02/06/2025 REASON FOR EXAM: 49 y/o M with LUNG Right lower lobe malignant neoplasm. TECHNIQUE: Following the intravenous administration of radionucleotide, image acquisition on a dedicated PET/CT unit was performed at one hour post injection. A preliminary CT study encompassing the Skull base, neck, chest, abdomen, pelvis, and proximal thighs was performed for purposes of attenuation correction and anatomic localization. The proximal thighs were also included. The patient's blood glucose level was 197 mg/dL (allowable range: 50-180 mg/dL). RADIOPHARMACEUTICAL: 12.75 mCi 18F-FDG (Fluorodeoxyglucose F18) IV was injected into he patient. RADIATION DOSE SUMMARY: Effective Dose: Approximately 7 mSv for a standard whole-body PET scan Organ Doses: Varies by organ, with higher doses typically to the bladder, liver, and brain COMPARISON: COMPARISON FROM CT, PET OR OTHER PERTINENT EXAMS: CT examination of 11/12/2024. FINDINGS: Physiologic uptake: There may be expected metabolic uptake within the brain, tongue and floor of the mouth and larynx/vocal cords, heart, jordana (many normal individuals have hilar uptake in less than 3 nodes with mildly avid hilar nodes less than 2.7 SUV), liver and spleen, system, and GI tract and symmetric muscle uptake. FDG AVID AND NON-AVID LESIONS. Reported avid SUV values (g/mL*) are maximum SUV. NECK: There are no significant neck abnormalities. CHEST: Chest wall- There are no significant chest wall abnormalities. Axilla- There are no significant axillary abnormalities. Lung parenchyma and Jordana- Innumerable/severe hypermetabolic nodules/masses are seen throughout bilateral lungs and bilateral jordana. These have worsened significantly since the prior study of 11/12/2024. Mediastinum- Numerous hypermetabolic mediastinal nodule/masses are seen. These have worsened significantly since the prior study of 11/12/2024. Pleura- There are no significant pleural abnormalities. ABDOMEN: Stomach- No significant abnormalities. Liver- At least 2 hypermetabolic foci are seen within the right lobe of the liver, with SUV max of the more posterior 3.0. And SUV max the more central of of 2.7. Correlating with CT images, these have atypical appearance metastatic disease. Spleen- No significant abnormalities. Pancreas- A hypermetabolic mass in the body of the pancreas, also extend superiorly. It is measured at approximately 37 x 45 mm in transverse dimension. SUV max is 20.5. This is not seen, even in retrospect, on the CT of 11/12/2024. This is highly concerning for malignancy. Also, a chain left retroperitoneal hypermetabolic masses/lymph nodes is seen, with the largest being most medial with SUV max of 32.3, and approximate size 23 x 28 mm in transverse dimension. Kidneys-No significant abnormalities. Bowel- Normal bowel activity. Spine- No significant abnormalities. PELVIS: Bowel- Normal physiologic bowel activity is identified. Masses- There are no pelvic masses. Bones- Sclerotic hypermetabolic area involving a large portion of the T6 vertebral body. SUV max is Scattered lesser areas of hypermetabolic activity in the vertebral bodies, inferior right acetabulum, medial right pubic bone, perhaps elsewhere in the skeleton. These areas are indeed concerning for osseous metastatic disease. Degenerative changes of the spine are seen. PET/PET/CT Tumor Base -Thigh Init IMPRESSION: FDG avid- Marked interval worsening of bilateral pulmonary, bilateral hilar, mediastinal, pancreatic body, left retroperitoneal, hepatic, and osseous malignancy/metastatic disease. Other: No additional comments. Please note the low-dose CT scan was performed to facilitate PET image reconstruction and anatomic localization and does not replace a diagnostic CT. Any diagnostic CT requested and performed at the time of the PET will be reported separately. Reading Location: [place] [address] CC: RODRIGUEZ Cardenas; Dr. Cristian Adame MD Manager Behavior: Signed Normal [facility] Urinalysis complete panel (U )on 02-01-2025 Bacteria LM.HPF (Urine sed) [#/Area] Negative Normal Negative [facility] Comment on above: Order Comment: Speci men Type: URINE SPECIMENOrdering Facility: [facility] Address: [address] [place] [address] Performed By: #### 2 4356-8 ####[facility] LABCLIA [id number] [place] [address] [place] Bilirubin Ql (U) Negative Normal Negative [facility] Comment on above: Order Comment: Speci men Type: URINE SPECIMENOrdering Facility: [facility] Address: [address] [place] [address] Performed By: #### 2 4356-8 ####[facility] LABCLIA [id number] [place] [id number] [place] CALCIUM OXALATE CRYSTALS (UA) Few Abnormal None Seen [facility] Comment on above: Order Comment: Speci men Type: URINE SPECIMENOrdering Facility: [facility] Address: [address] [place] [address] Performed By: #### 2 4356-8 ####[facility] LABCLIA [id number] [place] [address] [place] Clarity (Unsp spec) Clear Normal Clear [facility] Comment on above: Order Comment: Speci men Type: URINE SPECIMENOrdering Facility: [facility] Address: [address] [place] [address] Performed By: #### 2 4356-8 ####[facility] LABCLIA [id number] [place] [id number] [place] Color (U) Yellow Normal Yellow [facility] Comment on above: Order Comment: Speci men Type: URINE SPECIMENOrdering Facility: [facility] Address: [address] [place] [address] Performed By: #### 2 4356-8 ####[facility] LABCLIA [id number] [place] [id number] [place] Epithelial cells LM.HPF (Urine sed) [#/Area] None Seen Normal [facility] Comment on above: Order Comment: Speci men Type: URINE SPECIMENOrdering Facility: [facility] Address: [address] [place] [address] Performed By: #### 2 4356-8 ####[facility] LABCLIA [id number] [address], [facility] [place] Glucose Test strip (U) [Mass/Vol] 3+ Abnormal Negative [facility] Comment on above: Order Comment: Speci men Type: URINE SPECIMENOrdering Facility: [facility] Address: [address] [place] [address] Performed By: #### 2 4356-8 ####[facility] LABCLIA [id number] [address] [address] [place] Hemoglobin Ql (U) Negative Normal Negative [facility] Comment on above: Order Comment: Speci men Type: URINE SPECIMENOrdering Facility: [facility] Address: [address] [place] [address] Performed By: #### 2 4356-8 ####[facility] LABCLIA [id number] [place] [address] [place] Hyaline casts (Urine sed) [#/Area] 1-3 /LPF Abnormal 0 /LPF [facility] Comment on above: Order Comment: Speci men Type: URINE SPECIMENOrdering Facility: [facility] Address: [address] [place] [address] Performed By: #### 2 4356-8 ####[facility] LABCLIA [id number] [place] [address] [place] Ketones Ql (U) Negative Normal Negative [facility] Comment on above: Order Comment: Speci men Type: URINE SPECIMENOrdering Facility: [facility] Address: [address] [place] [address] Performed By: #### 2 4356-8 ####[facility] LABCLIA [id number] [place] [id number] [place] Leukocyte esterase Test strip Ql (U) Negative Normal Negative [facility] Comment on above: Order Comment: Speci men Type: URINE SPECIMENOrdering Facility: [facility] Address: [address] [place] [address] Performed By: #### 2 4356-8 ####[facility] LABCLIA [id number] [place] [address] [place] Nitrite Ql (U) Negative Normal Negative [facility] Comment on above: Order Comment: Speci men Type: URINE SPECIMENOrdering Facility: [facility] Address: [address] [place] [address] Performed By: #### 2 4356-8 ####[facility] LABIA [id number] [place] [address] [place] pH (U) 6.0 [pH] Normal 5.0-8.0 [facility] Comment on above: Order Comment: Speci men Type: URINE SPECIMENOrdering Facility: [facility] Address: [address] [place] [address] Performed By: #### 2 4356-8 ####[facility] LABIA [id number] [place] [address] [place] Protein (U) [Mass/Vol] Negative Normal Negative [facility] Comment on above: Order Comment: Speci men Type: URINE SPECIMENOrdering Facility: [facility] Address: [address] [place] [address] Performed By: #### 2 4356-8 ####[facility] LABIA [id number] [place] [address] [place] RBC LM.HPF (Urine sed) [#/Area] 0-2 /HPF Normal 0-2 /HPF [facility] Comment on above: Order Comment: Speci men Type: URINE SPECIMENOrdering Facility: [facility] Address: [address] [place] [address] Performed By: #### 2 4356-8 ####[facility] LABIA [id number] [place] [address] [place] Specific gravity (U) [Rel density] 1.029 Normal 1.005-1.030 [facility] Comment on above: Order Comment: Speci men Type: URINE SPECIMENOrdering Facility: [facility] Address: [address] [place] [address] Performed By: #### 2 4356-8 ####[facility] [id number] [place] [address] [place] Urobilinogen Ql (U) 1.0 EU/dL Normal 0.2-1.0 EU/dL [facility] Comment on above: Order Comment: Speci men Type: URINE SPECIMENOrdering Facility: [facility] Address: [address] [place] [address] Performed By: #### 2 4356-8 ####[facility] [id number] [place] [address] [place] WBC LM.HPF (Urine sed) [#/Area] 0-5 /HPF Normal 0-5 /HPF [facility] Comment on above: Order Comment: Speci men Type: URINE SPECIMENOrdering Facility: [facility] Address: [address] [place] [address] Performed By: #### 2 4356-8 ####[facility] [id number] [place] [address] [place] CBC W Auto Differential pane l (Bld)on 01-30-2025 Basophils (Bld) [#/Vol] 0.10 10*3/uL Normal <0.11 [facility] Comment on above: Order Comment: Speci men Type: BLOOD SPECIMENOrdering Facility: [facility] Address: [address] [place] [address] Performed By: #### 5 7021-8 ####[facility] [id number] [place] [address] [place] Basophils/100 WBC (Bld) 1.0 % Normal C [facility] Comment on above: Order Comment: Speci men Type: BLOOD SPECIMENOrdering Facility: [facility] Address: [address] [place] [address] Performed By: #### 5 7021-8 ####[facility] LABCLIA [id number] [place] [address] [place] Differential cell count method Nom (Bld) Auto Normal [facility] Comment on above: Order Comment: Speci men Type: BLOOD SPECIMENOrdering Facility: [facility] Address: [address] [place] [address] Performed By: #### 5 7021-8 ####[facility] LABCLIA [id number] [place] [address] [place] Eosinophils (Bld) [#/Vol] 0.14 10*3/uL Normal <0.46 [facility] Comment on above: Order Comment: Speci men Type: BLOOD SPECIMENOrdering Facility: [facility] Address: [address] [place] [address] Performed By: #### 5 7021-8 ####[facility] LABCLIA [id number] [place] [address] [place] Eosinophils/100 WBC (Bld) 1.3 % Normal [facility] Comment on above: Order Comment: Speci men Type: BLOOD SPECIMENOrdering Facility: [facility] Address: [address] [place] [address] Performed By: #### 5 7021-8 ####[facility] LABCLIA [id number] [place] [address] [place] Erythrocyte distribution width (RBC) [Ratio] 15.0 % Normal 11.5-15.0 [facility] Comment on above: Order Comment: Speci men Type: BLOOD SPECIMENOrdering Facility: [facility] Address: [address] [place] [address] Performed By: #### 5 7021-8 ####[facility] LABCLIA [id number] [place] [id number] [place] Hematocrit (Bld) [Volume fraction] 33.4 % Low 39.0-51.0 [facility] Comment on above: Order Comment: Speci men Type: BLOOD SPECIMENOrdering Facility: [facility] Address: [address] [place] [address] Performed By: #### 5 7021-8 ####[facility] LABCLIA [id number] [place] [address] [place] Hemoglobin (Bld) [Mass/Vol] 10.6 g/dL Low 13.0-17.0 [facility] Comment on above: Order Comment: Speci men Type: BLOOD SPECIMENOrdering Facility: [facility] Address: [address] [place] [address] Performed By: #### 5 7021-8 ####[facility] LABIA [id number] [place] [address] [place] Immature granulocytes (Bld) [#/Vol] 0.07 10*3/uL Normal <0.10 [facility] Comment on above: Order Comment: Speci men Type: BLOOD SPECIMENOrdering Facility: [facility] Address: [address] [place] [address] Performed By: #### 5 7021-8 ####[facility] LABIA [id number] [place] [address] [place] Immature granulocytes/100 WBC (Bld) 0.7 % Normal [facility] Comment on above: Order Comment: Speci men Type: BLOOD SPECIMENOrdering Facility: [facility] Address: [address] [place] [address] Performed By: #### 5 7021-8 ####[facility] LABIA [id number] [place] [address] [place] Lymphocytes (Bld) [#/Vol] 1.23 10*3/uL Normal 1.00-4.00 [facility] Comment on above: Order Comment: Speci men Type: BLOOD SPECIMENOrdering Facility: [facility] Address: [address] [place] [address] Performed By: #### 5 7021-8 ####[facility] LABCLIA [id number] [place] [address] [place] Lymphocytes/100 WBC (Bld) 11.8 % Normal [facility] Comment on above: Order Comment: Speci men Type: BLOOD SPECIMENOrdering Facility: [facility] Address: [address] [place] [address] Performed By: #### 5 7021-8 ####[facility] LABIA [id number] [place] [address] [place] MCH (RBC) [Entitic mass] 26.2 pg Normal 26.0-34.0 [facility] Comment on above: Order Comment: Speci men Type: BLOOD SPECIMENOrdering Facility: [facility] Address: [address] [place] [address] Performed By: #### 5 7021-8 ####[facility] LABIA [id number] [place] [address] [place] MCHC (RBC) [Mass/Vol] 31.7 g/dL Normal 30.5-36.0 [facility] Comment on above: Order Comment: Speci men Type: BLOOD SPECIMENOrdering Facility: [facility] Address: [address] [place] [address] Performed By: #### 5 7021-8 ####[facility] LABIA [id number] [place] [address] [place] MCV (RBC) [Entitic vol] 82.5 fL Normal 80.0-100.0 C [facility] Comment on above: Order Comment: Speci men Type: BLOOD SPECIMENOrdering Facility: [facility] Address: [address] [place] [address] Performed By: #### 5 7021-8 ####[facility] LABIA [id number] [place] [address] [place] Monocytes (Bld) [#/Vol] 0.69 10*3/uL Normal <0.87 [facility] Comment on above: Order Comment: Speci men Type: BLOOD SPECIMENOrdering Facility: [facility] Address: [address] [place] [address] Performed By: #### 5 7021-8 ####[facility] LABCLIA [id number] [facility] [place] [id number] [place] Monocytes/100 WBC (Bld) 6.6 % Normal [facility] Comment on above: Order Comment: Speci men Type: BLOOD SPECIMENOrdering Facility: [facility] Address: [address] [place] [address] Performed By: #### 5 7021-8 ####[facility] LABCLIA [id number] [facility] [address], [place] [address] [place] Neutrophils (Bld) [#/Vol] 8.17 10*3/uL High 1.45-7.50 [facility] Comment on above: Order Comment: Speci men Type: BLOOD SPECIMENOrdering Facility: [facility] Address: [address] [place] [address] Performed By: #### 5 7021-8 ####[facility] LABCLIA [id number] [place] [address] [place] Neutrophils/100 WBC (Bld) 78.6 % Normal [facility] Comment on above: Order Comment: Speci men Type: BLOOD SPECIMENOrdering Facility: [facility] Address: [address] [place] [address] Performed By: #### 5 7021-8 ####[facility] LABCLIA [id number] [place] [address] [place] Nucleated RBC (Bld) [#/Vol] 10*3/uL Normal <0.01 [facility] Comment on above: Order Comment: Speci men Type: BLOOD SPECIMENOrdering Facility: [facility] Address: [address] [place] [address] Performed By: #### 5 7021-8 ####[facility] LABCLIA [id number] [address] [place] [address] [place] Nucleated RBC/100 WBC (Bld) [Ratio] 0.0 /100 WBC Normal [facility] Comment on above: Order Comment: Speci men Type: BLOOD SPECIMENOrdering Facility: [facility] Address: [address] [place] [address] Performed By: #### 5 7021-8 ####[facility] LABCLIA [id number] [address] [place] [address] [place] Platelet mean volume (Bld) [Entitic vol] 11.2 fL Normal 9.0-12.7 [facility] Comment on above: Order Comment: Speci men Type: BLOOD SPECIMENOrdering Facility: [facility] Address: [address] [place] [address] Performed By: #### 5 7021-8 ####[facility] LABCLIA [id number] [address], [place] [address] [place] Platelets (Bld) [#/Vol] 457 10*3/uL High 150-400 [facility] Comment on above: Order Comment: Speci men Type: BLOOD SPECIMENOrdering Facility: [facility] Address: [address] [place] [address] Performed By: #### 5 7021-8 ####[facility] LABCLIA [id number] [address], [facility] [place] RBC (Bld) [#/Vol] 4.05 10*6/uL Low 4.20-6.00 [facility] Comment on above: Order Comment: Speci men Type: BLOOD SPECIMENOrdering Facility: [facility] Address: [address] [place] [address] Performed By: #### 5 7021-8 ####[facility] LABCLIA [id number] [address], [facility] [place] WBC (Bld) [#/Vol] 10.40 10*3/uL Normal 3.70-11.00 [facility] Comment on above: Order Comment: Speci men Type: BLOOD SPECIMENOrdering Facility: [facility] Address: [address] [facility] [place] [address] Performed By: #### 5 7021-8 ####[facility] LABCLIA [id number] [facility] CENTERIesha SIMON [address] [place] CNOVon 01-30-2025 CNOV Office Visit (FAMPWS ) DANILOHYUN BLACKBURN ([id number]) 1975 M Date Time Provider Department 01/30/25 12:40 PM [facility] During your visit today, we recorded the following information about you: Temperature Pulse Blood pressure Weight 98.5 degrees 113/minute 100/58 63.5 kg Gilda Noonan APRN.MANUFACTURING LEADER 01/30/2025 1:08 PM Signed This is a 49 year old male who presents today with: Patient presents with: Acute Visit: Elevated glucose at PET scan appointment HISTORY OF PRESENT ILLNESS: Hyun Elias is a 49 year old male. Patient presents with: Acute Visit: Elevated glucose at PET scan appointment Patient was scheduled for his PET scan today but they could not do it because his blood sugar was too high. He is diabetic, 2 months ago hemoglobin A1c of 7.5%. Quit metformin. Hyun Elias is a 49-year-old male with a history of diabetes mellitus, presenting for evaluation of hyperglycemia, hematuria, and weight loss. Hyperglycemia: - Blood glucose readings this mornin mg/dL and 300 mg/dL. - Previously prescribed metformin; medication and was not taken. - Reports excessive thirst. - Denies headaches and polyphagia. - Diet includes sweet tea; denies dietary restrictions. - Consumes one meal per day. Hematuria: - Reports urine with a "gregoria" color. - Denies dysuria. Weight Loss: - Lost 30 lbs over the past 2 months, from 170 lbs to 140 lbs. - Denies nausea or vomiting. - Able to drink milk without issues. Abdominal and Back Pain: - Reports constant abdominal and occasional back pain. - Denies nausea or vomiting. - Reports constipation, attributing it to pain medication use. - Previously used a stool softener, which caused abdominal cramping. Cancer: - Recent diagnosis; specific type not mentioned. Substance Use: - Quit marijuana and tobacco use over 2 months ago. - Stopped caffeine consumption. PAST MEDICAL HISTORY: PAST MEDICAL HISTORY Diagnosis Date Diaphragmatic hernia without mention of obstruction or gangrene Dysthymic disorder 07/12/2007 Depression (non-psychotic) Esophageal reflux Legally blind Seizures (HCC) childhood PAST SURGICAL HISTORY Procedure Laterality Date APPENDECTOMY 1975 ESOPHAGOGASTRODUODENOSC OPY TRANSORAL DIAGNOSTIC 07/16/2008 EGD PAST SURGICAL HISTORY OF ORIF arm fracture PAST SURGICAL HISTORY OF 1995 Reconstruction of Rt arm after industrial accident RPR 1ST INGUN HRNA AGE 3 YRS/> REDUCIBLE 1975 Hernia repair, inguinal ALLERGIES Augmentin [Amoxicillin-Pot Clavulanate] and Bactrim [Sulfamethoxazole] MEDICATIONS Current Outpatient Medications Medication Sig oxyCODONE IR (ROXICODONE) 5 mg immediate release tablet Take 1 tablet by mouth every 6 hours as needed for pain for up to 7 days. ondansetron orally disintegrating (ZOFRAN ODT) 4 mg disintegrating tablet Take 1 tablet by mouth every 8 hours as needed for nausea/vomiting. RABEprazole (ACIPHEX) 20 mg tablet Take 1 tablet by mouth once daily. naloxone 4 mg/actuation nasal spray (NARCAN) Use 1 spray in one nostril as needed for overdose. May repeat every 2 to 3 min in alternating nostrils until medical assistance is available ferrous sulfate 325 mg (65 mg iron) tablet Take 1 tablet by mouth two times a day with meals. (Patient not taking: Reported on 01/30/2025) folic acid 1 mg tablet Take 1 tablet by mouth once daily. (Patient not taking: Reported on 01/30/2025) No current facility-administered medications for this visit. [...] Yes Frequency: 2.0 times per week Comment: Manti per patient REVIEW OF SYSTEMS Constitutional: (+) weight loss, (-) fever, (-) chills Head: (-) headache Gastrointestinal: (+) abdominal pain, (+) constipation, (-) nausea, (-) vomiting, (-) diarrhea Genitourinary: (+) urinary frequency, (+) weak urinary stream, (+) hematuria, (-) dysuria Musculoskeletal: (+) back pain Endocrine: (+) increased thirst, (-) increased appetite EXAM: BP 100/58 Pulse 113 Temp 36.9 ?C (98.5 ?F) (Left Tympanic) Wt 63.5 kg (140 lb) SpO2 95% BMI 20.09 kg/m? PHYSICAL EXAM: GENERAL: NAD, alert and oriented. SKIN: Unremarkable, no rash or skin lesions. HEAD: Normocephalic. EYES: PERRLA, EOMI, conjunctiva clear. EARS: External ears normal, canals with waxy cerumen, TM's normal. OROPHARYNX: Lips, mucosa, and tongue normal, good dentition. No oral lesions noted. NECK: Supple, no lymphadenopathy, normal thyroid, no carotid bruits. LUNGS (more content not included)... 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 PET scan ordered for staging. He did have concerning liver lesions on CT of the abdomen obtained in November of this year. This would be concerning for advanced disease. I explained to the patient that he will also require an MRI of the brain for staging. Staging will need to be evaluated before treatment can be determined Nicotine abuse chronic. Extensive smoking history at least 40 to 50 pack years. Not complaining of bothersome shortness of breath or cough at night. Follow up with him in 6 months to make sure he does not become more symptomatic throughout treatment. Unintentional weight loss acute he has lost 20 pounds unintentionally in the last 2 months. This is likely related to new diagnosis of cancer. Defer to nutrition and supplement recommendations to oncology PET/CT tumor base malignant neoplasm of right lower lobe bronchus Tissue pathology is consistent with non-small cell carcinoma consistent with squamous cell carcinoma. Patient is on rabeprazole 20 mg daily Oxycodone 5 mg every 6 hours as needed for pain for 3 days Folic acid 1 mg daily Zofran as needed Allergies As of Date: 01/30/2025 Noted Allergy Reaction AUGMENTIN (AMOXICILLIN-POT CLAVUL*05/08/2011 6 - Diarrhea BACTRIM (SULFAMETHOXAZOLE) 06/27/2012 7 - Swelling Date Reviewed: 12/15/2024 Reviewed by: Raiza Rodrigez LPN - Fully Assessed Prescriptions as of 01/30/2025 - oxyCODONE IR (ROXICODONE) 5 mg immediate release tablet Take 1 tablet by mouth every 6 hours as needed for pain for up to 7 days. - ondansetron orally disintegrating (ZOFRAN ODT) 4 mg disintegrating tablet Take 1 tablet by mouth every 8 hours as needed for nausea/vomiting. - naloxone 4 mg/actuation nasal spray (NARCAN) Use 1 spray in one nostril as needed for overdose. May repeat every 2 to 3 min in alternating nostrils until medical assistance is available - ferrous sulfate 325 mg (65 mg [...] medication is. Problem List As Of Date 01/30/2025 Noted Resolved DYSTHYMIC DISORDER [F34.1] Depressive disorder, [...] [D64.9] 12/19/2024 Folic acid deficiency [E53.8] 12/19/2024 Primary malignant neoplasm of lung metastatic t*01/25/2025 Generalized abdominal pain [R10.84] 01/25/2025 Encounter Status:Closed by GILDA NOONAN on 01/30/25 Normal [facility] Ferritin SerPl-mCncon 2024 Ferritin [Mass/Vol] 1074.0 ng/mL High 30.3-565.7 [facility] Comment on above: Order Comment: Speci men Type: BLOOD SPECIMENOrdering Facility: [facility] Address: [address] [place] [address] Performed By: #### 5 0190-8, 2276-4, 2284-8 ####[facility] LABCLIA [id number] [place] [address] [place] Folate SerPl-mCncon 01-31-20 Folate [Mass/Vol] 7.9 ng/mL Normal >4.7 [facility] Comment on above: Order Comment: Speci men Type: BLOOD SPECIMENOrdering Facility: [facility] Address: [address] [place] [address] Performed By: #### 5 0190-8, 6-4, 8 ####[facility] LABCLIA [id number] [place] [address] [place] Iron and Iron binding capaci panel 01-30-2025 Iron [Mass/Vol] 16 ug/dL Low 41-186 [facility] Comment on above: Order Comment: Speci men Type: BLOOD SPECIMENOrdering Facility: [facility] Address: [address] [place] [address] Performed By: #### 5 0190-8, 2275-4, 8 ####[facility] LABCLIA [id number] [address] [place] Iron binding capacity [Mass/Vol] 196 ug/dL Low 232-386 [facility] Comment on above: Order Comment: Speci men Type: BLOOD SPECIMENOrdering Facility: [facility] Address: [address] [place] [address] Performed By: #### 5 0190-8, 2275-4, 8 ####[facility] LABCLIA [id number] [address] [place] Iron/TIBC [Molar ratio] 8.2 % Low 15.0-57.0 C [facility] Comment on above: Order Comment: Speci men Type: BLOOD SPECIMENOrdering Facility: [facility] Address: [address] [place], [place] [address] Performed By: #### 5 0190-8, 2275-4, 8 ####[facility] LABCLIA [id number] [place] [id number] [place] Pulmonary Visit Reporton Pulmonary Visit Report [facility] [place] [address] [place] [address] OFFICE VISIT Date of Service: 01/18/25 MR#: [id number] Acct: [id number] Name: HYUN ELIAS Rep #: [id number] : 1975 Provider: RODRIGUEZ Cardenas Age/Sex: 49/M Location: [facility] [place] Status: Signed Assessment and Plan Assessment and Plan (1) 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: Status: Acute Plan: New. Referral for fast pass to [place] [facility]. PET scan ordered for staging. He did have concerning liver lesions on the CT of the abdomen obtained in November of this year. This would be concerning for advanced disease. I explained to the patient that he will also require an MRI of the brain for staging. Staging will need to be evaluated before treatment can be determined. (2) Nicotine abuse: Status: Chronic Plan: The patient recently quit smoking cigarettes. He does have an extensive smoking history of at least 40 to 50 pack years. He is not complaining of bothersome shortness of breath or cough at this time. I will follow-up with him in 6 months to make sure that he does not become more symptomatic throughout treatment. He has been encouraged to contact our office if he develops increase in shortness of breath or purulent cough. If the patient becomes more symptomatic I would proceed with obtaining a pulmonary function test and 6-minute walk test. He is agreeable with this plan. (3) Unintentional weight loss: Status: Acute Plan: New. He has lost 20 pounds unintentionally in the last 2 months. This is likely related to his new diagnosis of cancer. I will defer nutrition and supplement recommendations to Oncology. Orders: Orders PET/CT Tumor Base -Thigh Init Today C34.31 - Malignant neoplasm of lower lobe, right bronchus or lung Referrals Fast Pass: Oncology Referral [facility] C34.31 - Malignant neoplasm of lower lobe, right bronchus or lung Plan Details Additional Comments: This note was generated with [employer] software. It may contain incorrect words, spelling, and punctuation that were not noted in checking the note before signing. Follow Up: 6 Months HPI Test Result Chief Complaint: Test results HPI Comments Details: This patient presents to the office today to discuss test results. He is ambulatory with the use of a cane. He is accompanied today by his significant other. He has not recently been seen in the ED or urgent care for any respiratory illness. He has not required any antibiotics or prednisone for any breathing problems. He is not currently on any inhalers. He does not utilize albuterol. He has successfully quit smoking on January 07, 2025. If you recall, he was smoking 1 to 1-1/2 packs/day. He has a greater than 29-cwqd-lbpz history. He has shortness of breath on exertion. However, he does not believe it is problematic and does not think that inhalers are necessary. He has a dry cough. He denies sputum production or hemoptysis. He denies any wheezing or palpitations. He experiences chest tightness, he points to the center of his chest. It is described as a discomfort. He continues to experience nightly fevers. He has been having night sweats as well. He reports unintentional weight loss. Test results personally reviewed with the patient: The patient underwent CT-guided biopsy of the lung on January 04, 2025. Tissue pathology has returned from the right lung nodule and is consistent with non-small cell carcinoma, consistent with squamous cell carcinoma. Intake Vital Signs 11/14/24 08:53 01/04/25 09:20 01/18/25 08:13 Height 5 ft 9 in 5 ft 9 in 5 ft 9 in Weight: 147 lb BMI 21.7 BP 105/71 Blood Pressure Location Rt brachial Position Sitting Respiration 16 Pulse 112 H Pulse Source Monitor Temp 97.6 F L Temperature Source Temporal Artery Pulse Oximetry (%) 95 Oxygen Delivery Method room air Intake Visit Reasons: Test Result Docket Clerk Required: No DME Vendor: N/a Accompanied by: girlfriend Is patient in pain?: Yes Allergies sulfamethoxazole (From Bactrim) Allergy (Verified 01/18/25 11:20) Unknown trimethoprim (From Bactrim) Allergy (Verified 01/18/25 11:20) Unknown amoxicillin trihydrate (From Augmentin) Adverse Reaction (Verified 01/18/25 11:20) Nausea potassium clavulanate (From Augmentin) Adverse Reaction (Verified 01/18/25 11:20) Nausea Medications ???Medication ???Instructions ???Recorded ???Confirmed ???Type rabeprazole 20 mg tablet,delayed 20 mg PO DAILY 01/20/15 01/18/25 H istory release (AcipHex) oxycodone 5 mg tablet 5 mg PO Q6H PRN pain 3 days #12 01/18/25 Rx tabs folic acid 1 mg tablet 1 mg PO QDAY 01/18/25 01/18/25 His tory ondansetron 4 mg disintegrating 4 mg PO Q8H PRN PRN Nausea (more content not included)... Normal [facility] Surgical pathology reportOrd ered By: Noemí Crooks on 01-11-2025 Surgical pathology study [facility] Absolute lymphocyte countOrd ered By: Theodore Lynch on 01-04-2025 Lymphocytes Auto (Unsp spec) [#/Vol] 1.65 10*3/uL 0.83-4.51 [facility] Absolute neutrophil countOrd ered By: Theodore Lynch on 01-04-2025 Neutrophils (Bld) [#/Vol] 10.3 10*3/uL High 2.0-7.7 [facility] Activated partial thrombopla stin time (aPTT) in platelet poor plasma by coagulation aOrdered By: Theodore Lynch on 01-04-2025 aPTT Coag (PPP) [Time] 24.2 s 24.1-36.2 [facility] Automated lymphocyte count a s percentage of total leukocytesOrdered By: Theodore Lynch on 01-04-2025 Lymphocytes/100 WBC Auto (Unsp spec) 12.7 % Low 19-41 [facility] Basophil percentageOrdered B y: Theodore Lynch on 01-04-2025 Basophils/100 WBC (Bld) 0.6 % 0-1 [facility] Biopsy/Inj or Needle Placeme nton 01-04-2025 Biopsy/Inj or Needle Placement [facility] Imaging Services [address] [place], [place] [id number] Biopsy/Inj or Needle Placement MR#: [id number] Acct: [id number] Name: HYUN ELIAS Rep #: [id number] : 1975 M 49 From: Theodore Julian PCP: Dr. Cristian Adame MD Status: REG CLI Study: Biopsy/Inj or Needle Placement Date of Exam: 0 01/04/25 Exam# [id number] Ordering Dr: Denny Moffett DO EXAM: CT-guided core biopsy a right lower lobe posterior peripheral mass. CLINICAL HISTORY: Innumerable bilateral presumed pulmonary metastases. COMPARISON: CT examination of 11/12/2024. TECHNIQUE: Conscious sedation was provided, with IV administration a total of 2 mg Versed and 100 mcg fentanyl. Following informed consent, and using standard sterile technique, a CT-guided core biopsy of a peripheral right lower lobe posterior mass was performed. 2% lidocaine local anesthesia was followed by placement of a CorStormpulsecet 20/19 gauge core biopsy device, under CT guidance. A total of 5 core specimens were obtained. Postprocedure 1 hour and 3 hour inspiratory and expiratory chest x-rays were also performed No complication was encountered, in the patient left the department in good condition without significant complication. Dose: DLP 3070.36 mGy-cm. CT/Biopsy/Inj or Needle Placement IMPRESSION: Successful core biopsy of a peripheral right lower lobe posterior nodule. Pathology results pending. Reading Location: [place] [address] CC: Dr. Denny Moffett DO; Dr. Cristian Adame MD Manager Behavior: Signed Normal [facility] CBC W/Diff, Automatedon 06- Absolute Lymph 1.65 X10 3/uL Normal 0.83-4.51 [facility] Comment on above: Performed By: #### L 501.5500, L501.7300, L501.7400 #### [facility] Laboratory [address] [place], [address] Absolute Neut 10.3 X10 3/uL High 2.0-7.7 [facility] Comment on above: Performed By: #### L 501.5500, L501.7300, L501.7400 #### [facility] [address] [place], [address] Basophils/100 WBC (Bld) 0.6 % Normal 0-1 [facility] Comment on above: Performed By: #### L 501.5500, L501.7300, L501.7400 #### [facility] [address] [place], [address] Eosinophils/100 WBC (Bld) 0.8 % Normal 0-5 [facility] Comment on above: Performed By: #### L 501.5500, L501.7300, L501.7400 #### [facility] [address] [place], [address] Erythrocyte distribution width (RBC) [Ratio] 13.5 % Normal 11.6-14.6 [facility] Comment on above: Performed By: #### L 501.5500, L501.7300, L501.7400 #### [facility] [address] [place], [address] Hematocrit (Bld) [Volume fraction] 36.7 % Low 40-54 [facility] Comment on above: Performed By: #### L 501.5500, L501.7300, L501.7400 #### [facility] [address] [place], [address] Hemoglobin (Bld) [Mass/Vol] 12.1 g/dL Low 13.0-16.5 [facility] Comment on above: Performed By: #### L 501.5500, L501.7300, L501.7400 #### [facility] [address] [place], [address] IG% 0.500 Normal 0.0-0.9 [facility] Comment on above: Result Comment: IG% - Immature Granulocytes (promyelocytes, myelocytes and metamyelocytes) > 1% indicates that a LEFT SHIFT is Present. Performed By: #### L 501.5500, L501.7300, L501.7400 #### [facility] [address] [place], [address] Lymphocytes/100 WBC (Bld) 12.7 % Low 19-41 [facility] Comment on above: Performed By: #### L 501.5500, L501.7300, L501.7400 #### [facility] [address] [place], [address] MCH (RBC) [Entitic mass] 27.1 pg Normal 27.0-32.0 [facility] Comment on above: Performed By: #### L 501.5500, L501.7300, L501.7400 #### [facility] [address] [place], [address] MCHC (RBC) [Mass/Vol] 33.0 g/dL Normal 32-36 [facility] Comment on above: Performed By: #### L 501.5500, L501.7300, L501.7400 #### [facility] [address] [place], [address] MCV (RBC) [Entitic vol] 82.3 fL Normal 80-94 [facility] Comment on above: Performed By: #### L 501.5500, L501.7300, L501.7400 #### [facility] [address] [place], [address] Monocytes/100 WBC (Bld) 5.9 % Normal 0-10 [facility] Comment on above: Performed By: #### L 501.5500, L501.7300, L501.7400 #### [facility] [address] [place], [address] Neutrophils/100 WBC (Bld) 79.5 % High 47-70 [facility] Comment on above: Performed By: #### L 501.5500, L501.7300, L501.7400 #### [facility] [address] [place], [address] Nucleated RBC (Bld) [#/Vol] 0 10*3/uL Normal 0-5 [facility] Comment on above: Performed By: #### L 501.5500, L501.7300, L501.7400 #### [facility] [address] [place], [address] Platelet mean volume (Bld) [Entitic vol] 11.2 fL Normal 6.2-12.0 [facility] Comment on above: Performed By: #### L 501.5500, L501.7300, L501.7400 #### [facility] [address] [place], [address] Platelets (Bld) [#/Vol] 457 10*3/uL High 150-450 [facility] Comment on above: Performed By: #### L 501.5500, L501.7300, L501.7400 #### [facility] [address] [place], [address] RBC (Bld) [#/Vol] 4.46 10*6/uL Low 4.6-6.2 [facility] Comment on above: Performed By: #### L 501.5500, L501.7300, L501.7400 #### [facility] [address] [place], [address] RDW SD 40.4 fl Normal 35.1-43.9 [facility] Comment on above: Performed By: #### L 501.5500, L501.7300, L501.7400 #### [facility] [address] [place], [address] WBC (Bld) [#/Vol] 13.0 10*3/uL High 4.4-11.0 [facility] Comment on above: Performed By: #### L 501.5500, L501.7300, L501.7400 #### [facility] [place], [address] [facility] 01-04-2025 [facility] Telephone ([facility]) CURTHYUN ([id number]) 1975 M Date Time Provider Department 01/04/25 CRISTIAN ADAME [facility] During your visit today, we recorded the following information about you: Petty Stack RN 01/04/2025 4:39 PM Signed Shanon from [facility] calls and is asking if provider can send over script for oxyir tablets instead of capsules? Please review and advise, DOLORES Pemberton Jacqueline A, APRN.[facility] 01/04/2025 5:24 PM Signed done Allergies As of Date: 01/04/2025 Noted Allergy Reaction AUGMENTIN (AMOXICILLIN-POT CLAVUL*05/08/2011 6 - Diarrhea BACTRIM (SULFAMETHOXAZOLE) 06/27/2012 7 - Swelling Date Reviewed: 12/15/2024 Reviewed by: Raiza Rodrigez LPN - Fully Assessed Reason for Visit: Medication Problem [65] Primary Visit Diagnosis:Generalized abdominal pain [R10.84] Order(s):oxyCODONE IR (ROXICODONE) 5 mg immediate release tabletTake 1 tablet by mouth every 6 hours as needed for pain for up to 5 days.Disp: 20 tabletRfl: 0 Prescriptions as of 01/04/2025 - ondansetron orally disintegrating (ZOFRAN ODT) 4 mg disintegrating tablet Take 1 tablet by mouth every 8 hours as needed for nausea/vomiting. - oxyCODONE ir (OXYIR) 5 mg capsule Take 1 capsule by mouth every 6 hours as needed for pain for up to 5 days. - naloxone 4 mg/actuation nasal spray (NARCAN) Use 1 spray in one nostril as needed for overdose. May repeat every 2 to 3 min in alternating nostrils until medical assistance is available - oxyCODONE IR (ROXICODONE) 5 mg immediate release tablet Take 1 tablet by mouth every 6 hours as needed for pain for up to 5 days. - ferrous sulfate 325 mg (65 mg [...] medication is. Problem List As Of Date 01/04/2025 Noted Resolved DYSTHYMIC DISORDER [F34.1] Depressive disorder, [...] Refills Start End OXYCODONE 5 MG TABLET 20 t* 0 01/04/2025 01/09/2025 Route: PO Sig: Take 1 tablet by mouth every 6 hours as needed for pain for up to 5 days. Encounter Status:Closed by CECILY SOLER on 01/04/25 Normal [facility] Chest Insp/Exp 2 Viewon 06- Chest Insp/Exp 2 View [facility] Imaging Services [address] [place] [address] [place], [place] [id number] Chest Insp/Exp 2 View MR#: [id number] Acct: [id number] Name: HYUN ELIAS Rep #: [id number] : 1975 M 49 From: Theodore Julian PCP: Dr. Cristian Adame MD Status: REG CLI Study: Chest Insp/Exp 2 View Date of Exam: 01/04/25 Exam# [id number] Ordering Dr: Theodore Lynch MD PROCEDURE: CHEST INSP/EXP 2 VIEW 01/04/2025 REASON FOR EXAM: 3 Hours POST right LUNG BIOPSY TECHNIQUE: CHEST INSP/EXP 2 VIEW COMPARISON: Chest x-ray of 2 hours earlier. RAD/Chest Insp/Exp 2 View IMPRESSION: Numerous bilateral lung nodules are again noted. No pneumothorax is present. No significant pleural effusion is seen. The cardiomediastinal silhouette is stable, without evidence of cardiomegaly Reading Location: [place] [address] CC: Dr. Theodore Lynch MD; Dr. Cristian Adame MD Manager Behavior: Signed Normal [facility] Chest Insp/Exp 2 View [facility] Imaging Services [address] [place] [id number] Chest Insp/Exp 2 View MR#: [id number] Acct: [id number] Name: HYUN ELIAS Rep #: [id number] : 1975 M 49 From: Collin marroquin MD PCP: Dr. Cristian Adame MD Status: REG CLI Study: Chest Insp/Exp 2 View Date of Exam: 01/04/25 Exam# [id number] Ordering Dr: Theodore Lynch MD PROCEDURE: CHEST INSP/EXP 2 VIEW 01/04/2025 REASON FOR EXAM: POST LUNG BIOPSY TECHNIQUE: CHEST INSP/EXP 2 VIEW COMPARISON: None FINDINGS: No evidence of pneumothorax on the immediate post right lung biopsy radiographs. Multiple bilateral pulmonary nodules. RAD/Chest Insp/Exp 2 View IMPRESSION: No evidence of pneumothorax. Reading Location: [facility] CC: Dr. Theodore Lynch MD; Dr. Cristian Adame MD Manager Behavior: Signed Normal [facility] Eosinophil percentageOrdered By: Theodore Lynch on 01-04-2025 Eosinophils/100 WBC (Bld) 0.8 % 0-5 [facility] Erythrocyte distribution wid th ratioOrdered By: Theodore Lynch on 01-04-2025 Erythrocyte distribution width (RBC) [Ratio] 13.5 % 11.6-14.6 [facility] Erythrocyte distribution wid th standard deviationOrdered By: Theodore Lynch on 01-04-2025 Erythrocyte distribution width (RBC) [Ratio] 40.4 fl 35.1-43.9 [facility] Hematocrit Auto (Bld) [Volum e fraction]Ordered By: Theodore Lynch on 01-04-2025 Hematocrit (Bld) [Volume fraction] 36.7 % Low 40-54 [facility] Hemoglobin measurementOrdere d By: Theodore Lynch on 01-04-2025 Hemoglobin (Bld) [Mass/Vol] 12.1 g/dL Low 13.0-16.5 [facility] Immature granulocytes/100 WB C Auto (Bld)Ordered By: Theodore Lynch on 01-04-2025 Immature granulocytes/100 WBC (Bld) 0.500 % 0.0-0.9 [facility] Comment on above: IG% - Immature Granu locytes (promyelocytes, myelocytes and metamyelocytes) > 1% indicates that a LEFT SHIFT is Present. Immunohistochemical Stainson 01-04-2025 Immunohistochemical Stains Patient Age/Sex Location Account Attending Physician HYUN ELIAS 49/M CT [id number] Dr. Denny Moffett, DO Specimen: [id number] Received: 01/04/25 Status: ROSALIA Wood Num: [id number] Spec Type: ASP RAD Subm Dr: Dr. Denny Moffett, HEADER OPERATION: CT guided Right lung nodule PRE-OP DIAGNOSIS: Right lung nodule TISSUE SUBMITTED: A- Right lung nodule, 20 gauge x 5 cores MICROSCOPIC DIAGNOSIS A. Lung, right, "nodule", biopsy: * Non-small cell carcinoma, consistent with squamous cell carcinoma - see note. * Note: IHCs performed. The tumor cells are positive for CK7, CK8, CK5/6, p40; and negative for CK20. Napsin-A shows focal weak staining. These findings support squamous differentiation. Clinical correlation is necessary to assess the primary origin. COMMENT The specimen is evaluated at the time of biopsy by Dr. Crooks. Immediate Evaluation = 1. Adequate. 2. Blood. MICROSCOPIC DESCRIPTION Slides are reviewed. All matched controls reacted appropriately. These tests were developed and their performance characteristics determined by [facility]. They may not have been cleared or approved by the U.S. Food and Drug Administration. The FDA has determined that such clearance or approval is not necessary.??? The above immunohistochemical/jason Maurice???markers are reviewed by the Pathologist. GROSS DESCRIPTION A. Received in formalin labeled the patient's name and date of are multiple jose-red tissue core fragments ranging 0.2 cm to 0.6 cm in length by <0.1 cm to 0.1 cm in diameter. Entirely submitted in 1 cassette. [place] 01/04/2025 CPT:73254,20503,03689,8 [id number],98020c6 Patient Age/Sex Location Account Attending Physician HYUN ELIAS 49/M CT [id number] Dr. Denny Moffett DO ADDENDUM Addendum 1 Entered: 01/11/25-1352 This addendum report is to include the additional stains performed: Mucicarmine: focal intracellular mucin positive. PASD: negative for fungal organisms. AFB: negative for acid fast bacilli. Based on the additional stain(s), the differential diagnosis includes adenosquamous carcinoma. Selected slides/images were reviewed in intradepartmental consultation by Dr Galo Buckner (thoracic pathology division, [facility]). The addendum report was discussed with Dr Iesha Moffett 01/11/25 at 1:51 PM. Addendum Signed (signature on file) Dr. Noemí Crooks MD 01/11/25 5371 Patient Age/Sex Location Account Attending Physician HYUN ELIAS 49/M CT [id number] Dr. Denny Moffett DO Signed (signature on file) Dr. Noemí Crooks MD 01/11/25 1108 Normal [facility] Comment on above: Performed By: #### L 501.5500, L501.7300, L501.7400 #### [facility] [address], [address] International normalized rat io (INR) calculationOrdered By: Theodore Lynch on 01-04-2025 INR Coag (Bld) [Relative time] 1.2 {INR} [facility] MCV (mean corpuscular volume ) determinationOrdered By: Theodore Lynch on 01-04-2025 MCV (RBC) [Entitic vol] 82.3 fL 80-94 [facility] Mean corpuscular hemoglobin (MCH) determinationOrdered By: Theodore Lynch on 01-04-2025 MCH (RBC) [Entitic mass] 27.1 pg 27.0-32.0 [facility] Mean corpuscular hemoglobin concentration (MCHC) determinationOrdered By: Theodore Lynch on 01-04-2025 MCHC (RBC) [Mass/Vol] 33.0 g/dL 32-36 [facility] Mean platelet volume determi nationOrdered By: Theodore Lynch on 01-04-2025 Platelet mean volume (Bld) [Entitic vol] 11.2 fL 6.2-12.0 [facility] Monocyte percentageOrdered B y: Theodore Lynch on 01-04-2025 Monocytes/100 WBC (Bld) 5.9 % 0-10 [facility] Neutrophil percentageOrdered By: Theodore Lynch on 01-04-2025 Neutrophils/100 WBC (Bld) 79.5 % High 47-70 [facility] Nucleated red blood cell per centageOrdered By: Theodore Lynch on 01-04-2025 Nucleated RBC/100 WBC (Bld) [Ratio] 0 % 0-5 [facility] Partial Thromboplast Timeon 01-04-2025 aPTT Coag (Bld) [Time] 24.2 s Normal 24.1-36.2 [facility] Comment on above: Performed By: #### L 501.5500, L501.7300, L501.7400 #### [facility] [address] [place], [address] Platelet countOrdered By: Leandro Lynch on 01-04-2025 Platelets (Bld) [#/Vol] 457 10*3/uL High 150-450 [facility] Prothrombin Time w/INRon INR Coag (PPP) [Relative time] 1.2 {INR} Normal [facility] Comment on above: Performed By: #### L 501.5500, L501.7300, L501.7400 #### [facility] [address] [place], [address] PT Coag (PPP) [Time] 15.3 s High 11.7-14.9 [facility] Comment on above: Performed By: #### L 501.5500, L501.7300, L501.7400 #### [facility] [address] [place], [address] Prothrombin timeOrdered By: Theodore Lynch on 01-04-2025 PT Coag (PPP) [Time] 15.3 s High 11.7-14.9 [facility] RBC Auto (Bld) [#/Vol]Ordere d By: Theodore Lynch on 01-04-2025 RBC (Bld) [#/Vol] 4.46 10*6/uL Low 4.6-6.2 [facility] White blood cell (WBC) count Ordered By: Theodore Lynch on 01-04-2025 WBC (Bld) [#/Vol] 13.0 10*3/uL High 4.4-11.0 [facility] CNPNon 12-27-2024 [facility] FACEMIRE,HYUN Low ([id number]) 1975 M Date Time Provider Department 12/27/24 CRISTIAN ADAME [facility] During your visit today, we recorded the following information about you: Monserrat Alcantara, RN 12/27/2024 8:17 AM Signed Pt phoned to let pcp know he was suppose to have his biopsy done today at [facility]. [facility] cancelled and re-scheduled for next - telling pt the part they need for the CT is stuck in [place]. Pt asking pcp is there any way he can have the biopsy done at the [facility] Specialty building? Please advise pt. [phone] Cristian Adame MD 12/27/2024 8:48 AM Signed Likely would need to be done at one of the hospitals and doubt it could get set up any sooner than next week. 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 Would actually take much longer Sepideh Pires LPN 12/27/2024 11:32 AM Signed Pt notified pf Dr Adame's message. Pt verbalizes understanding. Pt had just wanted to give PCP a head up. Pt will wait and do procedure at [facility]. Sepideh Pires LPN Allergies As of Date: 12/27/2024 Noted Allergy Reaction AUGMENTIN (AMOXICILLIN-POT CLAVUL*05/08/2011 6 - Diarrhea BACTRIM (SULFAMETHOXAZOLE) 06/27/2012 7 - Swelling Date Reviewed: 12/15/2024 Reviewed by: Raiza Rodrigez LPN - Fully Assessed Reason for Visit: Patient Question [2997] Prescriptions as of 12/27/2024 - oxyCODONE ir [...] deficiency [E53.8] 12/19/2024 Encounter Status:Closed by SEPIDEH PIRES on 12/27/24 Normal [facility] 12-21-2024 [facility] DANILOHYUN BLACKBURN ([id number]) 1975 M Date Time Provider Department 12/21/24 CRISTIAN ADAME During your visit today, we recorded the following information about you: Petty Stack RN 12/21/2024 12:52 PM Signed Patient's significant other calls and states that patient is supposed to have have biopsy done 12/27. Patient was told to call PCP to see if something can be ordered to relax patient before procedure? [facility]. Please review and advise, DOLORES Pemberton William [...] Swelling Date Reviewed: 12/15/2024 Reviewed by: Raiza Rodrigez LPN - Fully Assessed Reason for Visit: Patient Question [0527] Primary Visit Diagnosis:Anxiety [F41.9] Order(s):hydrOXYzine pamoate (VISTARIL) [...] Encounter Status:Closed by NUPUR GREEN on 12/21/24 [facility] Dana 12-19-2024 PRAFULN Telephone (FAMPWS) FACEMIRE,HYUN Low ([id number]) 1975 M Date Time Provider Department 12/19/24 CRISTIAN ADAME During your visit today, we recorded the following information about you: Cristian Adame MD 12/19/2024 8:45 AM Signed Urine culture are still pending. Anemic-folate is low. Iron appears low but is likely more (due to low tibc) related to the nodules he is getting biopsied-an anemia of chronic disease, Do ifobt Add iron to be on safe side and folate Recheck labs in one month. Nupur Green MA 12/19/2024 11:39 AM Signed Cinnamon message sent Allergies As of Date: 12/19/2024 Noted Allergy Reaction AUGMENTIN (AMOXICILLIN-POT CLAVUL*05/08/2011 6 - Diarrhea BACTRIM (SULFAMETHOXAZOLE) 06/27/2012 7 - Swelling Date Reviewed: 12/15/2024 Reviewed by: Raiza Rodrigez LPN - Fully Assessed Reason for Visit: Results [95] Primary Visit Diagnosis:Anemia, unspecified type [D64.9] Other Visit Diagnosis:Folic acid deficiency [E53.8] Order(s):IMMUNOCHEMICAL FECAL OCCULT BLOOD TEST [SQIFOBT] Order #: [id number]. #:[id number] FOLATE, SERUM [SQSERFOL] Order #: [id number] FUTURE ferrous sulfate 325 mg (65 mg iron) tabletTake 1 tablet by mouth two times a day with meals.Disp: 180 tabletRfl: 3 FERRITIN [SQFERR] Order #: [id number] FUTURE IRON AND TIBC [SQIRON] Order #: [id number] FUTURE COMPLETE BLOOD COUNT AND DIFFERENTIAL [SQCBCDIF] Order #: [id number] FUTURE folic acid 1 mg tabletTake 1 [...] Status:Closed by NUPUR GREEN on 12/19/24 Normal [facility] Bacteria Ur Culton 5 Bacteria identified Cx Nom (U) ORGANISM ID: 1 <10,000 CFU/ml Normal urogenital tracey Normal [facility] Comment on above: Performed By: #### 6 30-4 ####[facility] LABCLIA [id number] [place] [address] [place] Basic metabolic 2000 panelon 12-18-2024 Anion gap [Moles/Vol] 11 mmol/L 8 - 15 mmol/L [facility] Calcium [Mass/Vol] 9.2 mg/dL 8.5 - 10. 2 mg/dL [facility] Chloride [Moles/Vol] 97 mmol/L Low 98 - 10 7 mmol/L [facility] CO2 [Moles/Vol] 23 mmol/L 22 - 30 mmol/L [facility] Creatinine [Mass/Vol] 0.86 mg/dL 0.73 - 1.22 mg/dL [facility] GFR/1.73 sq M.predicted among non-blacks MDRD (S/P/Bld) [Vol rate/Area] 105 mL/min/{1.73_m2} - PINF [facility] Comment on above: Estimated Glomerular Filtration Rate [...] 204 mg/dL High 74 - 99 mg/dL [facility] Comment on above: The [place] Diabete s Association (ADA) provides guidance for [...] Standards of Medical Care in Diabetes 2016, [place] [employer] Association. Diabetes Care. 2016.39(Suppl 1). Potassium [Moles/Vol] 4.3 mmol/L 3.7 - 5.1 mmol/L [facility] Sodium [Moles/Vol] 131 mmol/L Low 136 - 144 mmol/L [facility] Urea nitrogen [Mass/Vol] 11 mg/dL 9 - 24 mg/dL [facility] Anion gap [Moles/Vol] 11 mmol/L Normal 8-15 [facility] Comment on above: Order Comment: Speci men Type: BLOOD SPECIMENOrdering Facility: [facility] Address: [address] [place] [address] Performed By: #### 2 4321-2, 76868-6, 2275- ####[facility] LABCLIA [id number] [place] [address] [place] Calcium [Mass/Vol] 9.2 mg/dL Normal 8.5-10.2 [facility] Comment on above: Order Comment: Speci men Type: BLOOD SPECIMENOrdering Facility: [facility] Address: [address] [place] [address] Performed By: #### 2 4321-2, 27924-0, 2275-10 ####[facility] LABCLIA [id number] [place] [address] [place] Chloride [Moles/Vol] 97 mmol/L Low 98-107 [facility] Comment on above: Order Comment: Speci men Type: BLOOD SPECIMENOrdering Facility: [facility] Address: [address] [place] [address] Performed By: #### 2 4321-2, 72805-7, 2275-10 ####[facility] LABCLIA [id number] [place] [id number] [place] CO2 [Moles/Vol] 23 mmol/L Normal 22-30 [facility] Comment on above: Order Comment: Speci men Type: BLOOD SPECIMENOrdering Facility: [facility] Address: [address] [place] [address] Performed By: #### 2 4321-2, 70025-7, 2275-4 ####[facility] LABCLIA [id number] [address] [address] [place] Creatinine [Mass/Vol] 0.86 mg/dL Normal 0.73-1.22 [facility] Comment on above: Order Comment: Specminh raines Type: BLOOD SPECIMENOrdering Facility: [facility] Address: [address] [place] [address] Performed By: #### 2 4321-2, 69651-3, 2276-4 ####[facility] LABIA [id number] [address] [address] [place] Creatinine and Glomerular filtration rate.predicted panel (S/P/Bld) 105 mL/min/1.73m??? Normal >=60 [facility] Comment on above: Order Comment: Maryann arines Type: BLOOD SPECIMENOrdering Facility: [facility] Address: [address] [place] [address] Result Comment: Anika mated Glomerular Filtration Rate [...] actual GFR. Performed By: #### 2 4321-2, 57575-5, 6-4 ####[facility] LABIA [id number] [address] [address] [place] Glucose [Mass/Vol] 204 mg/dL High 74-99 [facility] Comment on above: Order Comment: Speci men Type: BLOOD SPECIMENOrdering Facility: [facility] Address: [address] [place] [address] Result Comment: The [place] Diabetes Association (ADA) provides guidance for cutoff [...] Standards of Medical Care in Diabetes 2016, [place] Diabetes Association. Diabetes Care. 2016.39(Suppl 1). Performed By: #### 2 4321-2, 32804-8, 2275- ####[facility] LABCLIA [id number] [address] [address] [place] Potassium [Moles/Vol] 4.3 mmol/L Normal 3.7-5.1 [facility] Comment on above: Order Comment: Speci men Type: BLOOD SPECIMENOrdering Facility: [facility] Address: [address] [place] [address] Performed By: #### 2 4321-2, 09014-2, 2275-10 ####[facility] LABCLIA [id number] [address] [address] [place] Sodium [Moles/Vol] 131 mmol/L Low 136-144 [facility] Comment on above: Order Comment: Landyi yanna Type: BLOOD SPECIMENOrdering Facility: [facility] Address: [address] [place] [address] Performed By: #### 2 4321-2, 41747-0, 2275-10 ####[facility] LABCLIA [id number] [address] [address] [place] Urea nitrogen [Mass/Vol] 11 mg/dL Normal 9-24 [facility] Comment on above: Order Comment: Landyi men Type: BLOOD SPECIMENOrdering Facility: [facility] Address: [address] [place] [address] Performed By: #### 2 4321-2, 57936-6, 2275-4 ####[facility] LABCLIA [id number] [address] [address] [place] CBC W Auto Differential pane l (Bld)on 12-18-2024 Basophils (Bld) [#/Vol] 0.1 10*3/uL [facility] Basophils/100 WBC (Bld) 1 % C [facility] Differential cell count method Nom (Bld) Auto [facility] Eosinophils (Bld) [#/Vol] 0.2 10*3/uL [facility] Eosinophils/100 WBC (Bld) 2 % [facility] Erythrocyte distribution width (RBC) [Ratio] 13.2 % 11.5 - 15.0 % [facility] Hematocrit (Bld) [Volume fraction] 35.8 % Low 39.0 - 51.0 % [facility] Hemoglobin (Bld) [Mass/Vol] 11.6 g/dL Low 13.0 - 17.0 g/dL [facility] Immature granulocytes (Bld) [#/Vol] 0.05 10*3/uL [facility] Immature granulocytes/100 WBC (Bld) 0.5 % [facility] Interpretation and review of laboratory results Abnormal [facility] Lymphocytes (Bld) [#/Vol] 1.99 10*3/uL [facility] Lymphocytes/100 WBC (Bld) 20 % [facility] MCH (RBC) [Entitic mass] 27.9 pg 26.0 - 34.0 pg [facility] MCHC (RBC) [Mass/Vol] 32.4 g/dL 30.5 - 36.0 g/dL [facility] MCV (RBC) [Entitic vol] 86.1 fL 80.0 - 100.0 fL [facility] Monocytes (Bld) [#/Vol] 0.74 10*3/uL [facility] Monocytes/100 WBC (Bld) 7.5 % C [facility] Neutrophils (Bld) [#/Vol] 6.85 10*3/uL [facility] Neutrophils/100 WBC (Bld) 69 % [facility] Nucleated RBC (Bld) [#/Vol] [facility] Nucleated RBC/100 WBC (Bld) [Ratio] 0 % /100 WBC [facility] Platelet mean volume (Bld) [Entitic vol] 11.3 fL 9.0 - 12.7 fL [facility] Platelets (Bld) [#/Vol] 345 10*3/uL [facility] RBC (Bld) [#/Vol] 4.16 10*6/uL Low 4.20 - 6.0 0 m/uL [facility] WBC (Bld) [#/Vol] 9.93 10*3/uL [facility] Basophils (Bld) [#/Vol] 0.10 10*3/uL Normal <0.11 [facility] Comment on above: Order Comment: Speci men Type: BLOOD SPECIMENOrdering Facility: [facility] Address: [address] [place] [address] Performed By: #### 5 7021-8, 4536-7 ####[facility] LABCLIA [id number] [place] [address] [place] Basophils/100 WBC (Bld) 1.0 % Normal C [facility] Comment on above: Order Comment: Speci men Type: BLOOD SPECIMENOrdering Facility: [facility] Address: [address] [place] [address] Performed By: #### 5 7021-8, 4536-7 ####[facility] LABCLIA [id number] [place] [address] [place] Differential cell count method Nom (Bld) Auto Normal [facility] Comment on above: Order Comment: Speci men Type: BLOOD SPECIMENOrdering Facility: [facility] Address: [address] [place] [address] Performed By: #### 5 7021-8, 4536-7 ####[facility] LABCLIA [id number] [facility] [place] [address] [place] Eosinophils (Bld) [#/Vol] 0.20 10*3/uL Normal <0.46 [facility] Comment on above: Order Comment: Speci men Type: BLOOD SPECIMENOrdering Facility: [facility] Address: [address] [place] [address] Performed By: #### 5 7021-8, 4537-7 ####[facility] LABCLIA [id number] [place] [address] [place] Eosinophils/100 WBC (Bld) 2.0 % Normal [facility] Comment on above: Order Comment: Speci men Type: BLOOD SPECIMENOrdering Facility: [facility] Address: [address] [place] [address] Performed By: #### 5 7021-8, 4537-7 ####[facility] LABCLIA [id number] [place] [address] [place] Erythrocyte distribution width (RBC) [Ratio] 13.2 % Normal 11.5-15.0 [facility] Comment on above: Order Comment: Speci men Type: BLOOD SPECIMENOrdering Facility: [facility] Address: [address] [place] [address] Performed By: #### 5 7021-8, 4537-7 ####[facility] LABCLIA [id number] [place] [address] [place] Hematocrit (Bld) [Volume fraction] 35.8 % Low 39.0-51.0 [facility] Comment on above: Order Comment: Speci men Type: BLOOD SPECIMENOrdering Facility: [facility] Address: [address] [place] [address] Performed By: #### 5 7021-8, 4537-7 ####[facility] LABCLIA [id number] [place] [address] [place] Hemoglobin (Bld) [Mass/Vol] 11.6 g/dL Low 13.0-17.0 [facility] Comment on above: Order Comment: Speci men Type: BLOOD SPECIMENOrdering Facility: [facility] Address: [address] [place] [address] Performed By: #### 5 7021-8, 4537-7 ####[facility] LABCLIA [id number] [place] [address] [place] Immature granulocytes (Bld) [#/Vol] 0.05 10*3/uL Normal <0.10 [facility] Comment on above: Order Comment: Speci men Type: BLOOD SPECIMENOrdering Facility: [facility] Address: [address] [place] [address] Performed By: #### 5 7021-8, 7 ####[facility] LABCLIA [id number] [place] [address] [place] Immature granulocytes/100 WBC (Bld) 0.5 % Normal [facility] Comment on above: Order Comment: Speci men Type: BLOOD SPECIMENOrdering Facility: [facility] Address: [address] [place] [address] Performed By: #### 5 7021-8, 7 ####[facility] LABCLIA [id number] [place] [address] [place] Lymphocytes (Bld) [#/Vol] 1.99 10*3/uL Normal 1.00-4.00 [facility] Comment on above: Order Comment: Speci men Type: BLOOD SPECIMENOrdering Facility: [facility] Address: [address] [place] [address] Performed By: #### 5 7021-8, 7 ####[facility] LABCLIA [id number] [place] [address] [place] Lymphocytes/100 WBC (Bld) 20.0 % Normal [facility] Comment on above: Order Comment: Speci men Type: BLOOD SPECIMENOrdering Facility: [facility] Address: [address] [place] [address] Performed By: #### 5 7021-8, 4536-7 ####[facility] LABCLIA [id number] [place] [address] [place] MCH (RBC) [Entitic mass] 27.9 pg Normal 26.0-34.0 [facility] Comment on above: Order Comment: Speci men Type: BLOOD SPECIMENOrdering Facility: [facility] Address: [address] [place] [address] Performed By: #### 5 7021-8, 4536-7 ####[facility] LABIA [id number] [place] [address] [place] MCHC (RBC) [Mass/Vol] 32.4 g/dL Normal 30.5-36.0 [facility] Comment on above: Order Comment: Speci men Type: BLOOD SPECIMENOrdering Facility: [facility] Address: [address] [place] [address] Performed By: #### 5 7021-8, 4536-7 ####[facility] [id number] [place] [address] [place] MCV (RBC) [Entitic vol] 86.1 fL Normal 80.0-100.0 C [facility] Comment on above: Order Comment: Speci men Type: BLOOD SPECIMENOrdering Facility: [facility] Address: [address] [place] [address] Performed By: #### 5 7021-8, 4536-7 ####[facility] [id number] [place] [address] [place] Monocytes (Bld) [#/Vol] 0.74 10*3/uL Normal <0.87 [facility] Comment on above: Order Comment: Speci men Type: BLOOD SPECIMENOrdering Facility: [facility] Address: [address] [place] [address] Performed By: #### 5 7021-8, 7 ####[facility] LABIA [id number] [place] [address] [place] Monocytes/100 WBC (Bld) 7.5 % Normal C [facility] Comment on above: Order Comment: Speci men Type: BLOOD SPECIMENOrdering Facility: [facility] Address: [address] [place] [address] Performed By: #### 5 7021-8, 4537-01 ####[facility] LABCLIA [id number] [facility] [id number] [address] [place] Neutrophils (Bld) [#/Vol] 6.85 10*3/uL Normal 1.45-7.50 [facility] Comment on above: Order Comment: Speci men Type: BLOOD SPECIMENOrdering Facility: [facility] Address: [address] [place] [address] Performed By: #### 5 7021-8, 7 ####[facility]CLIA [id number] [facility] [address] [place] [address] [place] Neutrophils/100 WBC (Bld) 69.0 % Normal [facility] Comment on above: Order Comment: Speci men Type: BLOOD SPECIMENOrdering Facility: [facility] Address: [address] [place] [address] Performed By: #### 5 7021-8, 7 ####[facility] LABCLIA [id number] [facility] [address], [place] [address] [place] Nucleated RBC (Bld) [#/Vol] 10*3/uL Normal <0.01 [facility] Comment on above: Order Comment: Speci men Type: BLOOD SPECIMENOrdering Facility: [facility] Address: [address] [place] [address] Performed By: #### 5 7021-8, 7 ####[facility] LABCLIA [id number] [facility] [address] [place] [address] [place] Nucleated RBC/100 WBC (Bld) [Ratio] 0.0 /100 WBC Normal [facility] Comment on above: Order Comment: Speci men Type: BLOOD SPECIMENOrdering Facility: [facility] Address: [address] [place] [address] Performed By: #### 5 7021-8, 4536-7 ####[facility] LABCLIA [id number] [address], [facility] [place] Platelet mean volume (Bld) [Entitic vol] 11.3 fL Normal 9.0-12.7 [facility] Comment on above: Order Comment: Speci men Type: BLOOD SPECIMENOrdering Facility: [facility] Address: [address] [place] [address] Performed By: #### 5 7021-8, 4537-7 ####[facility] LABCLIA [id number] [place] [address] [place] Platelets (Bld) [#/Vol] 345 10*3/uL Normal 150-400 [facility] Comment on above: Order Comment: Speci men Type: BLOOD SPECIMENOrdering Facility: [facility] Address: [address] [place] [address] Performed By: #### 5 7021-8, 4537-7 ####[facility] LABCLIA [id number] [place] [address] [place] RBC (Bld) [#/Vol] 4.16 10*6/uL Low 4.20-6.00 [facility] Comment on above: Order Comment: Speci men Type: BLOOD SPECIMENOrdering Facility: [facility] Address: [address] [place] [address] Performed By: #### 5 7021-8, 4537-7 ####[facility] LABCLIA [id number] [place] [address] [place] WBC (Bld) [#/Vol] 9.93 10*3/uL Normal 3.70-11.00 [facility] Comment on above: Order Comment: Speci men Type: BLOOD SPECIMENOrdering Facility: [facility] Address: [address] [place] [address] Performed By: #### 5 7021-8, 4537-7 ####[facility] LABCLIA [id number] [place] [id number] [place] CNPNon 12-18-2024 CNPN Telephone (FAMPWS) DANILOHYUN BLACKBURN ([id number]) 1975 M Date Time Provider Department 12/18/24 CRISTIAN ADAME [facility] During your visit today, we recorded the following information about you: Cristian Adame MD 12/18/2024 12:08 PM Signed Still needs to come into labs and get their urine test. UA and C and s He is slightly anemic. Sodium is low. Recheck anemic labs and sodium. Raiza Rodrigez LPN 12/18/2024 12:34 PM Signed Patient notified. Has urine test to bring back to lab. Allergies As of Date: 12/18/2024 Noted Allergy Reaction AUGMENTIN (AMOXICILLIN-POT CLAVUL*05/08/2011 6 - Diarrhea BACTRIM (SULFAMETHOXAZOLE) 06/27/2012 7 - Swelling Date Reviewed: 12/15/2024 Reviewed by: Raiza Rodrigez LPN - Fully Assessed Reason for Visit: Results [95] Primary Visit Diagnosis:Anemia, unspecified type [D64.9] Order(s):BASIC METABOLIC PANEL [SQBMP] Order #: [id number] FUTURE COMPLETE BLOOD COUNT AND DIFFERENTIAL [SQCBCDIF] Order #: [id number] FUTURE IRON AND TIBC [SQIRON] Order #: [id number] FUTURE VITAMIN B12 [SQB12] Order #: [id number] FUTURE FOLATE, SERUM [SQSERFOL] Order #: [id number] FUTURE FERRITIN [SQFERR] Order #: [id number] FUTURE SEDIMENTATION RATE, WESTERGREN [SQWSR] Order #: [id number] FUTURE Prescriptions as of 12/18/2024 - oxyCODONE [...] 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] 05/27/2018 Encounter Status:Closed by RAIZA RODRIGEZ on 12/18/24 Normal [facility] ESR Westergren method (Bld) [Velocity]on 12-18-2024 ESR (Bld) [Velocity] 97 mm/h High [facility] Interpretation and review of laboratory results Abnormal [facility] ESR (Bld) [Velocity] 97 mm/h High 0-15 [facility] Comment on above: Order Comment: Speci men Type: BLOOD SPECIMENOrdering Facility: [facility] Address: [address] [place] [address] Performed By: #### 5 7021-8, 4537-7 ####[facility] LABCLIA [id number] [place] [address] [place] FERRITINon 12-18-2024 Ferritin [Mass/Vol] 419 ng/mL 30.3 - 565.7 ng/mL [facility] Ferritin SerPl-ncon 2024 Ferritin [Mass/Vol] 419.0 ng/mL Normal 30.3-565.7 [facility] Comment on above: Order Comment: Speci men Type: BLOOD SPECIMENOrdering Facility: [facility] Address: [address] [place], [place] [address] Performed By: #### 2 4321-2, 01444-3, 2275-4 ####[facility] LABCLIA [id number] [place] [id number] [place] Ferritin [Mass/Vol]on 2024 Interpretation and review of laboratory results Normal [facility] 25 Folate [Mass/Vol] 4.6 ng/mL Low >4.7 [facility] Comment on above: Order Comment: Speci men Type: BLOOD SPECIMENOrdering Facility: [facility] Address: [address] [place] [address] Performed By: #### 2 284-8, 2132-9 ####[facility] LABCLIA [id number] [place] [id number] [place] Iron and Iron binding capaci panelon 12-18-2024 Iron [Mass/Vol] 16 ug/dL Low 41 - 186 ug/dL [facility] Iron binding capacity [Mass/Vol] 249 ug/dL 232 - 386 ug/dL [facility] Iron/TIBC [Molar ratio] 6.4 % Low 15.0 - 57.0 % [facility] Iron [Mass/Vol] 16 ug/dL Low 41-186 [facility] Comment on above: Order Comment: Speci men Type: BLOOD SPECIMENOrdering Facility: [facility] Address: [address] [place] [address] Performed By: #### 2 4321-2, 23914-6, 2275-4 ####[facility] LABCLIA [id number] [place] [id number] [place] Iron binding capacity [Mass/Vol] 249 ug/dL Normal 232-386 [facility] Comment on above: Order Comment: Speci men Type: BLOOD SPECIMENOrdering Facility: [facility] Address: [address] [place] [address] Performed By: #### 2 4321-2, 72145-0, 6-4 ####[facility] LABCLIA [id number] [address] [address] [place] Iron/TIBC [Molar ratio] 6.4 % Low 15.0-57.0 C [facility] Comment on above: Order Comment: Speci men Type: BLOOD SPECIMENOrdering Facility: [facility] Address: [address] [place] [address] Performed By: #### 2 4321-2, 50917-3, 2275-4 ####[facility] LABCLIA [id number] [place] [address] [place] No Panel Informationon 12-18 Interpretation and review of laboratory results Abnormal [facility] Urinalysis complete panel (U )on 12-18-2024 Bacteria LM.HPF (Urine sed) [#/Area] Negative Normal Negative [facility] Comment on above: Order Comment: Speci men Type: URINE SPECIMENOrdering Facility: [facility] Address: [address] [place] [address] Performed By: #### 2 4356-8 ####[facility] LABCLIA [id number] [place] [id number] [place] Bilirubin Ql (U) Negative Normal Negative [facility] Comment on above: Order Comment: Speci men Type: URINE SPECIMENOrdering Facility: [facility] Address: [address] [place] [address] Performed By: #### 2 4356-8 ####[facility] LABCLIA [id number] [address] [address] [place] Clarity (Unsp spec) Clear Normal [facility] Comment on above: Order Comment: Speci men Type: URINE SPECIMENOrdering Facility: [facility] Address: [address] [place] [address] Performed By: #### 2 4356-8 ####[facility] LABCLIA [id number] [address] [place] [address] [place] [facility] Color (U) Yellow Normal Yellow [facility] Comment on above: Order Comment: Speci men Type: URINE SPECIMENOrdering Facility: [facility] Address: [address] [place] [address] Performed By: #### 2 4356-8 ####[facility] LABCLIA [id number] [place] [address] [place] [facility] Epithelial cells LM.HPF (Urine sed) [#/Area] None Seen Normal [facility] Comment on above: Order Comment: Speci men Type: URINE SPECIMENOrdering Facility: [facility] Address: [address] [place] [address] Performed By: #### 2 4356-8 ####[facility] LABCLIA [id number] [address], [facility]95 [facility] Glucose Test strip (U) [Mass/Vol] Trace Abnormal Negative [facility] Comment on above: Order Comment: Speci men Type: URINE SPECIMENOrdering Facility: [facility] Address: [address] [place] [address] Performed By: #### 2 4356-8 ####[facility] LABCLIA [id number] [facility] [address] [place] [address] [place] Hemoglobin Ql (U) Negative Normal Negative [facility] Comment on above: Order Comment: Speci men Type: URINE SPECIMENOrdering Facility: [facility] Address: [address] [place] [address] Performed By: #### 2 4356-8 ####[facility] LABCLIA [id number] [facility] [address], [facility]95 [place] Hyaline casts (Urine sed) [#/Area] 1-3 /LPF Abnormal 0 /LPF [facility] Comment on above: Order Comment: Speci men Type: URINE SPECIMENOrdering Facility: [facility] Address: [address] [place] [address] Performed By: #### 2 4356-8 ####[facility] LABCLIA [id number] [place] [id number] [place] Ketones Ql (U) Negative Normal Negative [facility] Comment on above: Order Comment: Speci men Type: URINE SPECIMENOrdering Facility: [facility] Address: [address] [place] [address] Performed By: #### 2 4356-8 ####[facility] LABCLIA [id number] [place] [address] [place] Leukocyte esterase Test strip Ql (U) Negative Normal Negative [facility] Comment on above: Order Comment: Speci men Type: URINE SPECIMENOrdering Facility: [facility] Address: [address] [place] [address] Performed By: #### 2 4356-8 ####[facility] LABCLIA [id number] [place] [address] [place] Nitrite Ql (U) Negative Normal Negative [facility] Comment on above: Order Comment: Speci men Type: URINE SPECIMENOrdering Facility: [facility] Address: [address] [place] [address] Performed By: #### 2 4356-8 ####[facility] LABCLIA [id number] [place] [address] [place] pH (U) 6.0 [pH] Normal <8.5 [facility] Comment on above: Order Comment: Speci men Type: URINE SPECIMENOrdering Facility: [facility] Address: [address] [place] [address] Performed By: #### 2 4356-8 ####[facility] LABCLIA [id number] [place] [address] [place] Protein (U) [Mass/Vol] Negative Normal Negative Cl [facility] Comment on above: Order Comment: Speci men Type: URINE SPECIMENOrdering Facility: [facility] Address: [address] [place] [address] Performed By: #### 2 4356-8 ####[facility] LABIA [id number] [place] [address] [place] RBC LM.HPF (Urine sed) [#/Area] 0-2 /HPF Normal 0-2 /HPF [facility] Comment on above: Order Comment: Speci men Type: URINE SPECIMENOrdering Facility: [facility] Address: [address] [place] [address] Performed By: #### 2 4356-8 ####[facility] LABIA [id number] [place] [address] [place] Specific gravity (U) [Rel density] 1.017 Normal 1.005-1.030 [facility] Comment on above: Order Comment: Speci men Type: URINE SPECIMENOrdering Facility: [facility] Address: [address] [place] [address] Performed By: #### 2 4356-8 ####[facility] LABIA [id number] [address] [place] Urobilinogen Ql (U) 0.2 EU/dL Normal 0.2-1.0 EU/dL [facility] Comment on above: Order Comment: Speci men Type: URINE SPECIMENOrdering Facility: [facility] Address: [address] [place] [address] Performed By: #### 2 4356-8 ####[facility] LABCLIA [id number] [place] [address] [place] WBC LM.HPF (Urine sed) [#/Area] 0-5 /HPF Normal 0-5 /HPF [facility] Comment on above: Order Comment: Speci men Type: URINE SPECIMENOrdering Facility: [facility] Address: [address] [place] [address] Performed By: #### 2 4356-8 ####[facility] LABCLIA [id number] [place] [address] [place] Vit B12 SerPl-ncon 025 Cobalamin (Vitamin B12) [Mass/Vol] 346 pg/mL Normal 232-1245 [facility] Comment on above: Order Comment: Speci men Type: BLOOD SPECIMENOrdering Facility: [facility] Address: [address] [place] [address] Performed By: #### 2 284-8, 2132-9 ####[facility] LABIA [id number] [place] [address] [place] CBC W Auto Differential pane l (Bld)on 12-15-2024 Basophils (Bld) [#/Vol] 0.10 10*3/uL Normal <0.11 [facility] Comment on above: Order Comment: Speci men Type: BLOOD SPECIMENOrdering Facility: [facility] Address: [address] [place] [address] Performed By: #### 5 7021-8 ####[facility] LABCLIA [id number] [place] [address] [place] Basophils/100 WBC (Bld) 0.9 % Normal C [facility] Comment on above: Order Comment: Speci men Type: BLOOD SPECIMENOrdering Facility: [facility] Address: [address] [place] [address] Performed By: #### 5 7021-8 ####[facility] LABIA [id number] [place] [address] [place] Differential cell count method Nom (Bld) Auto Normal [facility] Comment on above: Order Comment: Speci men Type: BLOOD SPECIMENOrdering Facility: [facility] Address: [address] [place] [address] Performed By: #### 5 7021-8 ####[facility] LABCLIA [id number] [address], [place] [address] [place] Eosinophils (Bld) [#/Vol] 0.11 10*3/uL Normal <0.46 [facility] Comment on above: Order Comment: Speci men Type: BLOOD SPECIMENOrdering Facility: [facility] Address: [address] [place] [address] Performed By: #### 5 7021-8 ####[facility] LABCLIA [id number] [address], [place] [address] [place] Eosinophils/100 WBC (Bld) 1.0 % Normal [facility] Comment on above: Order Comment: Speci men Type: BLOOD SPECIMENOrdering Facility: [facility] Address: [address] [place] [address] Performed By: #### 5 7021-8 ####[facility] LABCLIA [id number] [address], [facility]95 [place] Erythrocyte distribution width (RBC) [Ratio] 13.0 % Normal 11.5-15.0 [facility] Comment on above: Order Comment: Speci men Type: BLOOD SPECIMENOrdering Facility: [facility] Address: [address] [place] [address] Performed By: #### 5 7021-8 ####[facility] LABCLIA [id number] [address], [facility]95 [place] Hematocrit (Bld) [Volume fraction] 37.9 % Low 39.0-51.0 [facility] Comment on above: Order Comment: Speci men Type: BLOOD SPECIMENOrdering Facility: [facility] Address: [address] [place] [address] Performed By: #### 5 7021-8 ####[facility] LABCLIA [id number] [address], [facility]95 [place] Hemoglobin (Bld) [Mass/Vol] 12.4 g/dL Low 13.0-17.0 [facility] Comment on above: Order Comment: Speci men Type: BLOOD SPECIMENOrdering Facility: [facility] Address: [address] [place] [address] Performed By: #### 5 7021-8 ####[facility] LABCLIA [id number] [place] [address] [place] Immature granulocytes (Bld) [#/Vol] 0.08 10*3/uL Normal <0.10 [facility] Comment on above: Order Comment: Speci men Type: BLOOD SPECIMENOrdering Facility: [facility] Address: [address] [place] [address] Performed By: #### 5 7021-8 ####[facility] LABCLIA [id number] [place] [address] [place] Immature granulocytes/100 WBC (Bld) 0.7 % Normal [facility] Comment on above: Order Comment: Speci men Type: BLOOD SPECIMENOrdering Facility: [facility] Address: [address] [place] [address] Performed By: #### 5 7021-8 ####[facility] LABCLIA [id number] [place] [address] [place] Lymphocytes (Bld) [#/Vol] 1.68 10*3/uL Normal 1.00-4.00 [facility] Comment on above: Order Comment: Speci men Type: BLOOD SPECIMENOrdering Facility: [facility] Address: [address] [place] [address] Performed By: #### 5 7021-8 ####[facility] LABCLIA [id number] [place] [address] [place] Lymphocytes/100 WBC (Bld) 14.6 % Normal [facility] Comment on above: Order Comment: Speci men Type: BLOOD SPECIMENOrdering Facility: [facility] Address: [address] [place] [address] Performed By: #### 5 7021-8 ####[facility] LABIA [id number] [place] [address] [place] MCH (RBC) [Entitic mass] 28.0 pg Normal 26.0-34.0 [facility] Comment on above: Order Comment: Speci men Type: BLOOD SPECIMENOrdering Facility: [facility] Address: [address] [place] [address] Performed By: #### 5 7021-8 ####[facility] LABIA [id number] [place] [address] [place] MCHC (RBC) [Mass/Vol] 32.7 g/dL Normal 30.5-36.0 [facility] Comment on above: Order Comment: Speci men Type: BLOOD SPECIMENOrdering Facility: [facility] Address: [address] [place] [address] Performed By: #### 5 7021-8 ####[facility] LABIA [id number] [place] [address] [place] MCV (RBC) [Entitic vol] 85.6 fL Normal 80.0-100.0 C [facility] Comment on above: Order Comment: Speci men Type: BLOOD SPECIMENOrdering Facility: [facility] Address: [address] [place] [address] Performed By: #### 5 7021-8 ####[facility] LABIA [id number] [place] [address] [place] Monocytes (Bld) [#/Vol] 0.72 10*3/uL Normal <0.87 [facility] Comment on above: Order Comment: Speci men Type: BLOOD SPECIMENOrdering Facility: [facility] Address: [address] [place] [address] Performed By: #### 5 7021-8 ####[facility] LABCLIA [id number] [place] [address] [place] Monocytes/100 WBC (Bld) 6.3 % Normal [facility] Comment on above: Order Comment: Speci men Type: BLOOD SPECIMENOrdering Facility: [facility] Address: [address] [place] [address] Performed By: #### 5 7021-8 ####[facility] LABCLIA [id number] [place] [address] [place] Neutrophils (Bld) [#/Vol] 8.80 10*3/uL High 1.45-7.50 [facility] Comment on above: Order Comment: Speci men Type: BLOOD SPECIMENOrdering Facility: [facility] Address: [address] [place] [address] Performed By: #### 5 7021-8 ####[facility] LABIA [id number] [place] [address] [place] Neutrophils/100 WBC (Bld) 76.5 % Normal [facility] Comment on above: Order Comment: Speci men Type: BLOOD SPECIMENOrdering Facility: [facility] Address: [address] [place] [address] Performed By: #### 5 7021-8 ####[facility] LABCLIA [id number] [place] [address] [place] Nucleated RBC (Bld) [#/Vol] 10*3/uL Normal <0.01 [facility] Comment on above: Order Comment: Speci men Type: BLOOD SPECIMENOrdering Facility: [facility] Address: [address] [place] [address] Performed By: #### 5 7021-8 ####[facility] LABCLIA [id number] [place] [address] [place] Nucleated RBC/100 WBC (Bld) [Ratio] 0.0 /100 WBC Normal [facility] Comment on above: Order Comment: Speci men Type: BLOOD SPECIMENOrdering Facility: [facility] Address: [address] [place] [address] Performed By: #### 5 7021-8 ####[facility] LABIA [id number] [address] [address] [place] Platelet mean volume (Bld) [Entitic vol] 11.9 fL Normal 9.0-12.7 [facility] Comment on above: Order Comment: Speci men Type: BLOOD SPECIMENOrdering Facility: [facility] Address: [address] [place] [address] Performed By: #### 5 7021-8 ####[facility] LABIA [id number] [place] [address] [place] Platelets (Bld) [#/Vol] 385 10*3/uL Normal 150-400 [facility] Comment on above: Order Comment: Speci men Type: BLOOD SPECIMENOrdering Facility: [facility] Address: [address] [place] [address] Performed By: #### 5 7021-8 ####[facility] LABIA [id number] [place] [address] [place] RBC (Bld) [#/Vol] 4.43 10*6/uL Normal 4.20-6.00 [facility] Comment on above: Order Comment: Speci men Type: BLOOD SPECIMENOrdering Facility: [facility] Address: [address] [place] [address] Performed By: #### 5 7021-8 ####[facility] LABIA [id number] [place] [address] [place] WBC (Bld) [#/Vol] 11.49 10*3/uL High 3.70-11.00 [facility] Comment on above: Order Comment: Speci men Type: BLOOD SPECIMENOrdering Facility: [facility] Address: [address] [place] [address] Performed By: #### 5 7021-8 ####[facility] GOPI [id number] [place] [id number] [facility] CNOVon 12-15-2024 CNOV Office Visit (FAMPWS ) CURTHYUN ([id number]) 1975 M Date Time Provider Department 12/15/24 2:20 PM [facility] today, we recorded the following information about you: Pulse Blood pressure Weight 111/minute 102/62 72.6 kg Cristian Adame MD 12/15/2024 2:51 PM Signed - Continue [...] when you need your next refill. Cristian Adame MD 12/15/2024 4:41 PM Signed Hyun Elias is a 49-year-old male with a history [...] nerves. Night Sweats: - Reports waking up "drenched" with night sweats, accompanied by an odor. - Denies cough. Diabetes Mellitus: - Not taking Metformin, reports it "doesn't even cross my mind." - Concerns about potential cardiac risks from [...] SURGICAL HISTORY Procedure Laterality Date APPENDECTOMY 1975 ESOPHAGOGASTRODUODENOSC OPY TRANSORAL DIAGNOSTIC 07/16/2008 EGD PAST SURGICAL HISTORY [...] Yes Frequency: 2.0 times per week Comment: Manti per patient Reviewed current medications, allerg (more content not included)... Normal [facility] CRP SerPl-mCncon 12-15-2024 CRP [Mass/Vol] 8.7 mg/dL High <0.9 [facility] Comment on above: Order Comment: Speci men Type: BLOOD SPECIMENOrdering Facility: [facility] Address: [address] [place] [address] Performed By: #### 2 532-0, 3015-3, , 1987-11 ####[facility] LABCLIA [id number] [place] [address] [place] Comprehensive metabolic 2000 panelon 12-15-2024 Albumin [Mass/Vol] 3.9 g/dL Normal 3.9-4.9 [facility] Comment on above: Order Comment: Speci men Type: BLOOD SPECIMENOrdering Facility: [facility] Address: [address] [place] [address] Performed By: #### 2 532-0, 301-3, , 1987-11 ####[facility] LABCLIA [id number] [place] [address] [place] ALP [Catalytic activity/Vol] 72 U/L Normal 38-113 [facility] Comment on above: Order Comment: Speci men Type: BLOOD SPECIMENOrdering Facility: [facility] Address: [address] [place] [address] Performed By: #### 2 532-0, 3, , 1987-11 ####[facility] LABCLIA [id number] [place] [id number] [place] ALT [Catalytic activity/Vol] 12 U/L Normal 10-54 [facility] Comment on above: Order Comment: Speci men Type: BLOOD SPECIMENOrdering Facility: [facility] Address: [address] [place] [address] Performed By: #### 2 532-0, 3, , 1987-11 ####[facility] LABCLIA [id number] [place] [address] [place] Anion gap [Moles/Vol] 16 mmol/L High 8-15 [facility] Comment on above: Order Comment: Speci men Type: BLOOD SPECIMENOrdering Facility: [facility] Address: [address] [place] [address] Performed By: #### 2 532-0, 3, , 1987-11 ####[facility] LABCLIA [id number] [place] [address] [place] AST [Catalytic activity/Vol] 15 U/L Normal 14-40 [facility] Comment on above: Order Comment: Speci men Type: BLOOD SPECIMENOrdering Facility: [facility] Address: [address] [place] [address] Performed By: #### 2 532-0, 3015-3, , 1987-11 ####[facility] LABIA [id number] [place] [id number] [place] Bilirubin [Mass/Vol] 0.4 mg/dL Normal 0.2-1.3 [facility] Comment on above: Order Comment: Speci men Type: BLOOD SPECIMENOrdering Facility: [facility] Address: [address] [place], [place] [address] Performed By: #### 2 532-0, 3, , 1987-11 ####[facility] LABCLIA [id number] [address] [address] [place] Calcium [Mass/Vol] 9.5 mg/dL Normal 8.5-10.2 [facility] Comment on above: Order Comment: Speci men Type: BLOOD SPECIMENOrdering Facility: [facility] Address: [address] [place], [place] [address] Performed By: #### 2 532-0, 3, , 1987-11 ####[facility] LABCLIA [id number] [place] [id number] [place] Chloride [Moles/Vol] 95 mmol/L Low 98-107 [facility] Comment on above: Order Comment: Speci men Type: BLOOD SPECIMENOrdering Facility: [facility] Address: [address] [place], [place] [address] Performed By: #### 2 532-0, 3015-09, , 1987-11 ####[facility] LABCLIA [id number] [place] [address] [place] CO2 [Moles/Vol] 19 mmol/L Low 22-30 [facility] Comment on above: Order Comment: Speci men Type: BLOOD SPECIMENOrdering Facility: [facility] Address: [address] [place] [address] Performed By: #### 2 532-0, 3, , 1987-11 ####[facility] LABCLIA [id number] [address] [address] [place] Creatinine [Mass/Vol] 0.87 mg/dL Normal 0.73-1.22 [facility] Comment on above: Order Comment: Speci men Type: BLOOD SPECIMENOrdering Facility: [facility] Address: [address] [place] [address] Performed By: #### 2 532-0, 3016-3, , 1987-11 ####[facility] LABIA [id number] [place] [id number] [place] Creatinine and Glomerular filtration rate.predicted panel (S/P/Bld) 104 mL/min/1.73m??? Normal >=60 [facility] Comment on above: Order Comment: Maryann raines Type: BLOOD SPECIMENOrdering Facility: [facility] Address: [address] [place] [address] Result Comment: Anika mated Glomerular Filtration Rate [...] By: #### 2 532-0, 3016-3, , 1987-11 ####[facility] LABIA [id number] [place] [id number] [place] Glucose [Mass/Vol] 182 mg/dL High 74-99 [facility] Comment on above: Order Comment: Marynan raines Type: BLOOD SPECIMENOrdering Facility: [facility] Address: [address] [place] [address] Result Comment: The [place] [employer] (ADA) provides guidance for cutoff [...] Standards of Medical Care in Diabetes 2016, [place] [employer]. Diabetes Care. 2016.39(Suppl 1). Performed By: #### 2 532-0, 6-3, , 1987-11 ####[facility] LABIA [id number] [address] [address] [place] Potassium [Moles/Vol] 4.4 mmol/L Normal 3.7-5.1 [facility] Comment on above: Order Comment: Speci men Type: BLOOD SPECIMENOrdering Facility: [facility] Address: [address] [place], [place] [address] Performed By: #### 2 532-0, 3015-3, , 1987-11 ####[facility] LABIA [id number] [address] [address] [place] Protein [Mass/Vol] 7.6 g/dL Normal 6.3-8.0 [facility] Comment on above: Order Comment: Speci men Type: BLOOD SPECIMENOrdering Facility: [facility] Address: [address] [place] [address] Performed By: #### 2 532-0, 3015-3, , 1987-11 ####[facility] LABIA [id number] [address] [address] [place] Sodium [Moles/Vol] 130 mmol/L Low 136-144 [facility] Comment on above: Order Comment: Speci men Type: BLOOD SPECIMENOrdering Facility: [facility] Address: [address] [place], [place] [address] Performed By: #### 2 532-0, 3015-3, , 1987-11 ####[facility] LABIA [id number] [address] [address] [place] Urea nitrogen [Mass/Vol] 11 mg/dL Normal 9-24 [facility] Comment on above: Order Comment: Speci men Type: BLOOD SPECIMENOrdering Facility: [facility] Address: [address] [place], [place] [address] Performed By: #### 2 532-0, 3016-3, 16929-5, 1987-11 ####[facility] LABIA [id number] [place] [address] [place] LDH SerPl-cCncon 12-15-2024 LDH [Catalytic activity/Vol] 186 U/L Normal 135-225 [facility] Comment on above: Order Comment: Speci men Type: BLOOD SPECIMENOrdering Facility: [facility] Address: [address] [place] [address] Result Comment: Hemo lysis present. The origin [...] indicated. Performed By: #### 2 532-0, 3016-3, , 1987-11 ####[facility] LABIA [id number] [place] [address] [place] TOXICOLOGY SCREEN, ROUTINE U RINEon 12-15-2024 Amphetamines Confirm (U) [Mass/Vol] Negative Normal Negative [facility] Comment on above: Order Comment: Speci men Type: URINE SPECIMENOrdering Facility: [facility] Address: [address] [place] [address] Result Comment: Cuto ff threshold at 1000 ng/mL. Performed By: #### U TOX2 ####[facility] LABIA [id number] [place] [address] [place] BARBITURATES, URINE Negative Normal Negative [facility] Comment on above: Order Comment: Speci men Type: URINE SPECIMENOrdering Facility: [facility] Address: [address] [place] [address] Result Comment: Cuto ff threshold at 200 ng/mL. Performed By: #### U TOX2 ####[facility] LABIA [id number] [place] [address] [place] BENZODIAZEPINES, UR Negative Normal Negative [facility] Comment on above: Order Comment: Speci men Type: URINE SPECIMENOrdering Facility: [facility] Address: [address] [place] [address] Result Comment: Cuto ff threshold at 200 ng/mL. Performed By: #### U TOX2 ####[facility] LABCLIA [id number] [place] [address] [place] Cannabinoids Screen Ql (U) Positive Abnormal Negative [facility] Comment on above: Order Comment: Speci men Type: URINE SPECIMENOrdering Facility: [facility] Address: [address] [place] [address] Result Comment: Cuto ff threshold at 50 ng/mL. Performed By: #### U TOX2 ####[facility] LABCLIA [id number] [place] [address] [place] Cocaine Ql (U) Negative Normal Negative [facility] Comment on above: Order Comment: Speci men Type: URINE SPECIMENOrdering Facility: [facility] Address: [address] [place] [address] Result Comment: Cuto ff threshold at 300 ng/mL. Performed By: #### U TOX2 ####[facility] LABCLIA [id number] [place] [address] [place] Ethanol (U) [Mass/Vol] <11 Normal <11 [facility] Comment on above: Order Comment: Speci men Type: URINE SPECIMENOrdering Facility: [facility] Address: [address] [place] [address] Performed By: #### U TOX2 ####[facility] LABCLIA [id number] [place] [address] [place] Opiates Screen Ql (U) Negative Normal Negative [facility] Comment on above: Order Comment: Speci men Type: URINE SPECIMENOrdering Facility: [facility] Address: [address] [place] [address] Result Comment: Cuto ff threshold at 300 ng/mL. Performed By: #### U TOX2 ####[facility] LABIA [id number] [place] [address] [place] oxyCODONE cutoff Screen (U) [Mass/Vol] Positive Abnormal Negative [facility] Comment on above: Order Comment: Speci men Type: URINE SPECIMENOrdering Facility: [facility] Address: [address] [place] [address] Result Comment: Cuto ff threshold at 100 ng/mL. Performed By: #### U TOX2 ####[facility] [id number] [address] [place] Phencyclidine Ql (U) Negative Normal Negative [facility] Comment on above: Order Comment: Speci men Type: URINE SPECIMENOrdering Facility: [facility] Address: [address] [place] [address] Result Comment: Cuto ff threshold at 25 ng/mL. Performed By: #### U TOX2 ####[facility] [id number] [place] [address] [place] TSH SerPl-aCncon 12-15-2024 TSH Qn 3.280 m[IU]/L Normal 0.270-4.200 [facility] Comment on above: Order Comment: Speci men Type: BLOOD SPECIMENOrdering Facility: [facility] Address: [address] [place] [address] Performed By: #### 2 532-0, 3016-3, 34535-9, 1988- ####[facility] [id number] [place] [address] [place] XR ABDOMEN 1V [...] 2.6 cm. IMPRESSION: Nonobstructive bowel gas pattern. Manager Behavior: [facility] Transcribe Date/Time: Dec 15 2024 3:55P Dictated by : ELÍAS SAUNDERS MD This examination was interpreted and the report reviewed and electronically signed by: ELÍAS SAUNDERS MD on Dec 15 2024 3:56PM EST [id number] Normal [facility] XR Abdomen Supine and Uprigh ton 12-15-2024 IMPRESSION: Nonobstructive bowel gas pattern. Manager Behavior: [facility] Transcribe Date/Time: Dec 15 2024 3:55P Dictated [...] to 2.6 cm. DIVISION OF RADIOLOGY [facility] * * *Final Report* * [...] cm. IMPRESSION IMPRESSION: Nonobstructive bowel gas pattern. Manager Behavior: ARASH Transcribe Date/Time: Dec 15 2024 3:55P Dictated by : ELÍAS SAUNDERS MD This examination was interpreted and the report reviewed and electronically signed by: ELÍAS SAUNDERS MD on Dec 15 2024 3:56PM EST [facility] Radiology Study observation (narrative) [facility] XR Abdomen Supine and Uprigh tOrdered By: [facility] Provider on 12-15-2024 [facility] 11-28-2024 [facility] ([id number]) 1975 M Date Time Provider Department 11/28/24 CRISTIAN ADAME [facility] During your visit today, we recorded [...] Last OV: 11/22/24 Call pt when with 's message. Cristian Adame MD 11/28/2024 2:23 PM Signed How often [...] Order(s):TOXICOLOGY SCREEN, ROUTINE URINE [SQUTOX2] Order #: [id number] oxyCODONE IR (ROXICODONE) 5 mg immediate release [...] for 3 days Encounter Status:Closed by CRISTIAN ADAME on 11/28/24 [facility] 11-23-2024 [facility] Telephone ([facility]) HYUN ELIAS ([id number]) 1975 M Date Time Provider Department 11/23/24 CRISTIAN ADAME [facility] During your visit today, we recorded the following information about you: Cristian Adame MD 11/23/2024 10:06 AM Signed Sugars are up. He should still be on metformin. Is there a reason he is not taking it? Raiza Rodrigez LPN 11/23/2024 10:58 AM Signed Left message to call and speak with nurse. 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 Encounter Status:Closed by Monserrat ALCANTARA on 11/23/24 [facility]OVon 11-22-2024 CNOV Office Visit (FAMPWS ) HYUN ELIAS ([id number]) 1975 M Date Time Provider Department 11/22/24 11:00 AM CRISTIAN ADAME During your visit today, we recorded the following information about you: Pulse Blood pressure Weight Height 100/minute 108/86 74.8 kg 1.778 m Cristian Adame MD 11/22/2024 11:31 AM Signed Patient presents with: ER F/U HPI: Patient presents today for office visit for ER FOLLOW UP: Reason for visit: Abdominal pain, left sided Which facility: [facility] Date of visit: 11/12/24 Diagnosis: Lymphadenopathy Testing done: Labs and CT scan.Treatment given: IV fluids, antinausea and pain meds Current symptoms: Having chest pain currently. Mentions a strange odor he's had since . Ct of chest/abd/pelvis Showed "innumerable pulmonary nodules throughout both lungs, with mediastinal and hilar lymphadenopathy, most compatible with primary lung neoplasm and marielena metastatic disease. Pulmonary metastases or lymphoma are additional considerations. Small right hepatit lobe hypodensity and large centrally necrotic retroperitoneal and gastric lymphadenopathy, compatible to hepatic and marielena metastatic disease. The ER doc in [facility] referred to [facility] onc. Has been seen by [facility] on 11/14. They are going to [...] SURGICAL HISTORY Procedure Laterality Date APPENDECTOMY 1975 ESOPHAGOGASTRODUODENOSC OPY TRANSORAL DIAGNOSTIC 07/16/2008 EGD PAST SURGICAL HISTORY [...] Yes Frequency: 2.0 times per week Comment: Manti per patient Reviewed current medications, allergies, past medical history, surgical history, family history and social history today. REVIEW OF SYSTEMS All other reviewed and negative other than HPI. VITALS: BP 108/86 Pulse 100 Ht 177.8 cm (5' 10") Wt 74.8 kg (165 lb) SpO2 96% [...] Cessation encouraged. (more content not included)... Normal [facility] HbA1c (Bld)on 11-22-2024 Average glucose Estimated from glycated hemoglobin (Bld) [Mass/Vol] 169 mg/dL Normal [facility] Comment on above: Order Comment: Maryann raines Type: BLOOD SPECIMENOrdering Facility: [facility] Address: [address] [place] [address] Result Comment: eAG: (Estimated average glucose) is a calculated value from HgbA1c and is transportation services representative of the average blood glucose level in the last 2-3 month period. Performed By: #### 5 5454-3 ####[facility] LABCLIA [id number] [place] [address] [place] HbA1c (Bld) [Mass fraction] 7.5 % High 4.3-5.6 [facility] Comment on above: Order Comment: Maryann raines Type: BLOOD SPECIMENOrdering Facility: [facility] Address: [address] [place] [address] Result Comment: Jayson ican Diabetes Association guidelines indicate that patients with HgbA1c in the range 5.7-6.4% are at increased risk for development of diabetes, and intervention by lifestyle modification may be beneficial. HgbA1c greater or equal to 6.5% is considered diagnostic of diabetes. Performed By: #### 5 5454-3 ####[facility] LABCLIA [id number] [place] [id number] [place] Activated partial thrombopla stin time (aPTT) in platelet poor plasma by coagulation aOrdered By: Denny Moffett on 11-14-2024 aPTT Coag (PPP) [Time] 26.6 s 24.1-36.2 [facility] International normalized rat io (INR) calculationOrdered By: Denny Moffett on 11-14-2024 INR Coag (Bld) [Relative time] 1.1 {INR} [facility] PLATELET COUNTon 11-14-2024 Platelets (Bld) [#/Vol] 324 10*3/uL Normal 150-450 [facility] Comment on above: Performed By: #### L 501.5500, L501.7300, L501.7400 #### [facility] [address] [place], [address] Partial Thromboplast Timeon 11-14-2024 aPTT Coag (Bld) [Time] 26.6 s Normal 24.1-36.2 [facility] Comment on above: Performed By: #### L 501.5500, L501.7300, L501.7400 #### [facility] [address] [place], [address] Platelet countOrdered By: Benson on 11-14-2024 Platelets (Bld) [#/Vol] 324 10*3/uL 150-450 [facility] Prothrombin Time w/INRon INR Coag (PPP) [Relative time] 1.1 {INR} Normal [facility] Comment on above: Performed By: #### L 501.5500, L501.7300, L501.7400 #### [facility] [address] [place], [address] PT Coag (PPP) [Time] 14.0 s Normal 11.7-14.9 [facility] Comment on above: Performed By: #### L 501.5500, L501.7300, L501.7400 #### [facility] [address] [place], [address] Prothrombin timeOrdered By: Denny Moffett on 11-14-2024 PT Coag (PPP) [Time] 14.0 s 11.7-14.9 [facility] Pulmonary Visit Reporton Pulmonary Visit Report [facility] [place] [address] [place] [address] OFFICE VISIT Date of Service: 11/14/24 MR#: [id number] Acct: [id number] Name: HYUN ELIAS Rep #: [id number] : 1975 Provider: Dr. Denny Moffett, Age/Sex: 49/M Location[facility] Status: Signed Assessment and Plan Assessment and [...] hilar lymphadenopathy. The patient has an approximate [id number] smoking history and continues to smoke daily. [...] room air Intake Visit Reasons: Fast Pass Docket Clerk Required: No DME Vendor: n/a Accompanied by: [...] rales C (more content not included)... Normal [facility] Absolute lymphocyte countOrd ered By: Dionicio Grimse on 11-12-2024 Lymphocytes Auto (Unsp spec) [#/Vol] 2.09 10*3/uL 0.83-4.51 [facility] Absolute neutrophil countOrd ered By: Dionicio Grimes on 11-12-2024 Neutrophils (Bld) [#/Vol] 7.1 10*3/uL 2.0-7.7 [facility] Anion gap in Serum or Plasma Ordered By: Dionicio Grimes on 11-12-2024 Anion gap [Moles/Vol] 12 mmol/L 5-15 [facility] Automated lymphocyte count a s percentage of total leukocytesOrdered By: Dionicio Grimes on 11-12-2024 Lymphocytes/100 WBC Auto (Unsp spec) 20.4 % 19-41 [facility] BUN/creatinine ratioOrdered By: Dionicio Grimes on 11-12-2024 Urea nitrogen/Creatinine [Mass ratio] 14.3 mg/mg 10-20 [facility] Basophil percentageOrdered B y: Dionicio Grimes on 11-12-2024 Basophils/100 WBC (Bld) 1.1 % High 0-1 [facility] Bilirubin, totalOrdered By: Dionicio Grimes on 11-12-2024 Bilirubin [Mass/Vol] 0.29 mg/dL 0.00-1.30 [facility] CBC W/Diff, Automatedon Absolute Lymph 2.09 X10 3/uL Normal 0.83-4.51 [facility] Comment on above: Performed By: #### L 501.5500, L501.7300, L501.7400 #### [facility] [address] [place], [address] Absolute Neut 7.1 X10 3/uL Normal 2.0-7.7 [facility] Comment on above: Performed By: #### L 501.5500, L501.7300, L501.7400 #### [facility] [address] [place], [address] Basophils/100 WBC (Bld) 1.1 % High 0-1 [facility] Comment on above: Performed By: #### L 501.5500, L501.7300, L501.7400 #### [facility] [address] [place], [address] Eosinophils/100 WBC (Bld) 1.8 % Normal 0-5 [facility] Comment on above: Performed By: #### L 501.5500, L501.7300, L501.7400 #### [facility] [address] [place], [address] Erythrocyte distribution width (RBC) [Ratio] 13.4 % Normal 11.6-14.6 [facility] Comment on above: Performed By: #### L 501.5500, L501.7300, L501.7400 #### [facility] [address] [place], [address] Hematocrit (Bld) [Volume fraction] 41.5 % Normal 40-54 [facility] Comment on above: Performed By: #### L 501.5500, L501.7300, L501.7400 #### [facility] [address] [place], [address] Hemoglobin (Bld) [Mass/Vol] 13.9 g/dL Normal 13.0-16.5 [facility] Comment on above: Performed By: #### L 501.5500, L501.7300, L501.7400 #### [facility] [address] [place], [address] IG% 0.600 Normal 0.0-0.9 [facility] Comment on above: Result Comment: IG% - Immature Granulocytes (promyelocytes, myelocytes and metamyelocytes) > 1% indicates that a LEFT SHIFT is Present. Performed By: #### L 501.5500, L501.7300, L501.7400 #### [facility] [address] [place], [address] Lymphocytes/100 WBC (Bld) 20.4 % Normal 19-41 [facility] Comment on above: Performed By: #### L 501.5500, L501.7300, L501.7400 #### [facility] [address] [place], [address] MCH (RBC) [Entitic mass] 29.3 pg Normal 27.0-32.0 [facility] Comment on above: Performed By: #### L 501.5500, L501.7300, L501.7400 #### [facility] [address] [place], [address] MCHC (RBC) [Mass/Vol] 33.5 g/dL Normal 32-36 [facility] Comment on above: Performed By: #### L 501.5500, L501.7300, L501.7400 #### [facility] [address] [place], [address] MCV (RBC) [Entitic vol] 87.6 fL Normal 80-94 [facility] Comment on above: Performed By: #### L 501.5500, L501.7300, L501.7400 #### [facility] [address] [place], [address] Monocytes/100 WBC (Bld) 6.5 % Normal 0-10 [facility] Comment on above: Performed By: #### L 501.5500, L501.7300, L501.7400 #### [facility] [address] [place], [address] Neutrophils/100 WBC (Bld) 69.6 % Normal 47-70 [facility] Comment on above: Performed By: #### L 501.5500, L501.7300, L501.7400 #### [facility] [address] [place], [address] Nucleated RBC (Bld) [#/Vol] 0 10*3/uL Normal 0-5 [facility] Comment on above: Performed By: #### L 501.5500, L501.7300, L501.7400 #### [facility] [address] [place], [address] Platelet mean volume (Bld) [Entitic vol] 11.4 fL Normal 6.2-12.0 [facility] Comment on above: Performed By: #### L 501.5500, L501.7300, L501.7400 #### [facility] [address] [place], [address] Platelets (Bld) [#/Vol] 262 10*3/uL Normal 150-450 [facility] Comment on above: Performed By: #### L 501.5500, L501.7300, L501.7400 #### [facility] [address] [place], [address] RBC (Bld) [#/Vol] 4.74 10*6/uL Normal 4.6-6.2 [facility] Comment on above: Performed By: #### L 501.5500, L501.7300, L501.7400 #### [facility] [address] [place], [address] RDW SD 43.4 fl Normal 35.1-43.9 [facility] Comment on above: Performed By: #### L 501.5500, L501.7300, L501.7400 #### [facility] [address] [place], [address] WBC (Bld) [#/Vol] 10.2 10*3/uL Normal 4.4-11.0 [facility] Comment on above: Performed By: #### L 501.5500, L501.7300, L501.7400 #### [facility] [address] [place], [address] CT Chest, Abd, Pel w/Contras ton 11-12-2024 CT Chest, Abd, Pel w/Contrast [facility] Imaging Services [address] [place] [address] CT Chest, Abd, Pel w/Contrast MR#: [id number] Acct: [id number] Name: HYUN ELIAS Rep #: [id number] : 1975 M 49 From: Jacquelyn Howell nd, MD PCP: Dr. Cristian Adame MD Status: [facility] Study: CT Chest, Abd, Pel w/Contrast Date of Exam: Exam# [id number] Ordering Dr: Dionicio Grimes DO PROCEDURE: CT [...] Lymph nodes: Mediastinal and hilar lymphadenopathy. A transportation services representative right paratracheal node measures 1.9 x 1.7 cm (series 3, image 43). No axillary lymphadenopathy. Heart and Vasculature: The heart is normal in size without pericardial effusion. No coronary artery calcifications. The great vessels are normal in caliber. Lungs and Airways: The central airways are patent. Innumerable pulmonary nodules throughout all 5 lung lobes. A transportation services representative right upper lobe subpleural pulmonary nodule [...] centrally necrotic retroperitoneal and gastric lymphadenopathy. A transportation services representative left lateral aortic/para-aortic node measures 2.9 [...] at 11:15 a.m. on 11/12/2024. Reading Location: [facility] CC: Dr. Dionicio Grimes DO; Dr. Cristian Adame MD Manager Behavior: Signed Normal [facility] Carbon dioxide, total [Moles /volume] in Central venous bloodOrdered By: Dionicio Grimes on 11-12-2024 CO2 [Moles/Vol] 21.4 mmol/L 21.0-32.0 [facility] Chloride assayOrdered By: Jamin Grimes on 11-12-2024 Chloride [Moles/Vol] 102 mmol/L 98-108 [facility] Comprehensive Metabolic Prof ilon 11-12-2024 Albumin [Mass/Vol] 3.8 g/dL Normal 3.5-5.0 [facility] Comment on above: Performed By: #### L 501.5500, L501.7300, L501.7400 #### [facility] [address] [place], [address] Albumin/Globulin [Mass ratio] 1.0 {ratio} Normal 0.9-2.4 [facility] Comment on above: Performed By: #### L 501.5500, L501.7300, L501.7400 #### [facility] [address] [place], [address] ALK PHOS 70 U/L Normal 40-129 [facility] Comment on above: Performed By: #### L 501.5500, L501.7300, L501.7400 #### [facility] [address] [place], [address] ALT [Catalytic activity/Vol] 8 U/L Normal <=46 [facility] Comment on above: Performed By: #### L 501.5500, L501.7300, L501.7400 #### [facility] [address] [place], [address] AST [Catalytic activity/Vol] 13 U/L Normal <=37 [facility] Comment on above: Performed By: #### L 501.5500, L501.7300, L501.7400 #### [facility] [address] [place], [address] Bilirubin [Mass/Vol] 0.29 mg/dL Normal 0.00-1.30 [facility] Comment on above: Performed By: #### L 501.5500, L501.7300, L501.7400 #### [facility] [address] [place], [address] BUN/CRE 14.3 RATIO Normal 10-20 [facility] Comment on above: Performed By: #### L 501.5500, L501.7300, L501.7400 #### [facility] [address] [place], [address] Calcium [Mass/Vol] 9.1 mg/dL Normal 7.6-11.0 [facility] Comment on above: Performed By: #### L 501.5500, L501.7300, L501.7400 #### [facility] [address] [place], [address] Chloride [Moles/Vol] 102 mmol/L Normal 98-108 [facility] Comment on above: Performed By: #### L 501.5500, L501.7300, L501.7400 #### [facility] [address] [place], [address] CO2 [Moles/Vol] 21.4 mmol/L Normal 21.0-32.0 [facility] Comment on above: Performed By: #### L 501.5500, L501.7300, L501.7400 #### [facility] [address] [place], [address] Creatinine [Mass/Vol] 0.85 mg/dL Normal 0.70-1.20 [facility] Comment on above: Performed By: #### L 501.5500, L501.7300, L501.7400 #### [facility] [address] [place], [address] ECRCL 102.82 ml/min Normal 50-250 [facility] Comment on above: Performed By: #### L 501.5500, L501.7300, L501.7400 #### [facility] [address] [place], [address] GAP 12 Normal 5-15 [facility] Comment on above: Performed By: #### L 501.5500, L501.7300, L501.7400 #### [facility] [address] [place], [address] GFR/1.73 sq M.predicted among non-blacks MDRD (S/P/Bld) [Vol rate/Area] 105 mL/min/{1.73_m2} Normal >60 [facility] Comment on above: Result Comment: mL/m in/1.73m2 CKD-EPI Creatinine Equation (2020) Performed By: #### L 501.5500, L501.7300, L501.7400 #### [facility] [address] [place], [address] Globulin (S) [Mass/Vol] 4.0 g/dL Normal 2.2-4.2 [facility] Comment on above: Performed By: #### L 501.5500, L501.7300, L501.7400 #### [facility] [address] [place], [address] Glucose [Mass/Vol] 283 mg/dL High 70-99 [facility] Comment on above: Performed By: #### L 501.5500, L501.7300, L501.7400 #### [facility] [address] [place], [address] Potassium [Moles/Vol] 3.9 mmol/L Normal 3.3-5.1 [facility] Comment on above: Performed By: #### L 501.5500, L501.7300, L501.7400 #### [facility] [address] [place], [address] Sodium [Moles/Vol] 135 mmol/L Normal 133-145 [facility] Comment on above: Performed By: #### L 501.5500, L501.7300, L501.7400 #### [facility] [address] [place], [address] T PROT 7.8 g/dL Normal 5.9-8.4 [facility] Comment on above: Performed By: #### L 501.5500, L501.7300, L501.7400 #### [facility] [address] [place], [address] Urea nitrogen [Mass/Vol] 12 mg/dL Normal 4-19 [facility] Comment on above: Performed By: #### L 501.5500, L501.7300, L501.7400 #### [facility] [address] [place], [address] Emergency Department Summary on 11-12-2024 Emergency Department Summary [facility] Medical Records Department [address] [place] [address] Emergency Department Summary 11/12/24 MR#: [id number] Acct: [id number] Name: HYUN ELIAS Rep #: [id number] : 1975 49 From: Dionicio Grimes DO PCP: Dr. Cristian Adame MD Status:REG ER Location: ED HPI History [...] Oxygen Delivery Method Room Air Room Air [facility] MDM MDM Narrative Medical decision making narrative: HISTORY OF [...] reviewed, Vital signs reviewed Constitutional: please see mdm HENT: MMM Eyes: Pupils equal round and [...] History obtained from others: none Consults: none [facility] Narrative: The patient was initially hemodynamically stable, [...] hepatobiliary ob (more content not included)... Normal [facility] Eosinophil percentageOrdered By: Dionicio Grimes on 11-12-2024 Eosinophils/100 WBC (Bld) 1.8 % 0-5 [facility] [facility] Erythrocyte distribution wid th ratioOrdered By: Dionicio Grimes on 11-12-2024 Erythrocyte distribution width (RBC) [Ratio] 13.4 % 11.6-14.6 [facility] Erythrocyte distribution wid th standard deviationOrdered By: Dionicio Grimes on 11-12-2024 Erythrocyte distribution width (RBC) [Ratio] 43.4 fl 35.1-43.9 [facility] Glomerular filtration rate ( GFR) estimation/1.73 sq m using serum, plasma, or whole bOrdered By: Dionicio Grimes on 11-12-2024 GFR/1.73 sq M.predicted among non-blacks MDRD (S/P/Bld) [Vol rate/Area] 105 mL/min/{1.73_m2} >60 [facility] Comment on above: mL/min/1.73m2 CKD-EP I Creatinine Equation (2020) Hematocrit Auto (Bld) [Volum e fraction]Ordered By: Dionicio Grimes on 11-12-2024 Hematocrit (Bld) [Volume fraction] 41.5 % 40-54 [facility] Hemoglobin measurementOrdere d By: Dionicio Grimes on 11-12-2024 Hemoglobin (Bld) [Mass/Vol] 13.9 g/dL 13.0-16.5 [facility] Immature granulocytes/100 WB C Auto (Bld)Ordered By: Dionicio Grimes on 11-12-2024 Immature granulocytes/100 WBC (Bld) 0.600 % 0.0-0.9 [facility] Comment on above: IG% - Immature Granu locytes (promyelocytes, myelocytes and metamyelocytes) > 1% indicates that a LEFT SHIFT is Present. Laboratory - Chemistry and C hemistry - challengeOrdered By: Dionicio Grimes on 11-12-2024 AST [Catalytic activity/Vol] 13 U/L <38 [facility] Lipaseon 11-12-2024 Lipase [Catalytic activity/Vol] 26 U/L Normal 13-75 [facility] Comment on above: Result Comment: Maria Ines greenberg note: LIPASE revised reference range effective 22. New Lipase methodology. Expected to produce lower values than the previous assay method. NEW Reference Range: 13 - 75 U/L Performed By: #### L 501.5500, L501.7300, L501.7400 #### [facility] Laboratory [address] [place], [address] Lipase measurementOrdered By : Dionicio Grimes on 11-12-2024 Lipase [Catalytic activity/Vol] 26 U/L 13-75 [facility] Comment on above: Please note:LIPASE r evised reference range effective 22. New Lipase methodology. Expected to produce lower values than the previous assay method. NEW Reference Range: 13 - 75 U/L MCV (mean corpuscular volume ) determinationOrdered By: Dionicio Grimes on 11-12-2024 MCV (RBC) [Entitic vol] 87.6 fL 80-94 [facility] Mean corpuscular hemoglobin (MCH) determinationOrdered By: Dionicio Grimes on 11-12-2024 MCH (RBC) [Entitic mass] 29.3 pg 27.0-32.0 [facility] Mean corpuscular hemoglobin concentration (MCHC) determinationOrdered By: Dionicio Grimes on 11-12-2024 MCHC (RBC) [Mass/Vol] 33.5 g/dL 32-36 [facility] Mean platelet volume determi nationOrdered By: Dioniico Grimes on 11-12-2024 Platelet mean volume (Bld) [Entitic vol] 11.4 fL 6.2-12.0 [facility] Monocyte percentageOrdered B y: Dionicio Grimes on 11-12-2024 Monocytes/100 WBC (Bld) 6.5 % 0-10 [facility] Neutrophil percentageOrdered By: Dionicio Grimes on 11-12-2024 Neutrophils/100 WBC (Bld) 69.6 % 47-70 [facility] Nucleated red blood cell per centageOrdered By: Dionicio Grimes on 11-12-2024 Nucleated RBC/100 WBC (Bld) [Ratio] 0 % 0-5 [facility] Platelet countOrdered By: Jamin Grimes on 11-12-2024 Platelets (Bld) [#/Vol] 262 10*3/uL 150-450 [facility] Potassium measurement (mass/ volume)Ordered By: Dionicio Grimes on 11-12-2024 Potassium (Unsp spec) [Mass/Vol] 3.9 mmol/L 3.3-5.1 [facility] RBC Auto (Bld) [#/Vol]Ordere d By: Dionicio Grimes on 11-12-2024 RBC (Bld) [#/Vol] 4.74 10*6/uL 4.6-6.2 [facility] Serum creatinine measurement (mass/volume)Ordered By: Dionicio Grimes on 11-12-2024 Creatinine [Mass/Vol] 0.85 mg/dL 0.70-1.20 [facility] Serum globulin measurementOr dered By: Dionicio Grimes on 11-12-2024 Globulin (S) [Mass/Vol] 4.0 g/dL 2.2-4.2 [facility] Serum glucose measurement (m ass/volume)Ordered By: Dionicio Grimes on 11-12-2024 Glucose [Mass/Vol] 283 mg/dL High 70-99 [facility] Serum or plasma alanine montenegro otransferase (ALT) measurementOrdered By: Dionicio Grimes on 11-12-2024 ALT [Catalytic activity/Vol] 8 U/L <47 [facility] Serum or plasma albumin darien urement (mass/volume)Ordered By: Dionicio Grimes on 11-12-2024 Albumin [Mass/Vol] 3.8 g/dL 3.5-5.0 [facility] Serum or plasma albumin/glob ulin mass ratioOrdered By: Dionicio Grimes on 11-12-2024 Albumin/Globulin [Mass ratio] 1.0 {ratio} 0.9-2.4 [facility] Serum or plasma alkaline maría sphatase measurementOrdered By: Dionicio Grimes on 11-12-2024 ALP [Catalytic activity/Vol] 70 U/L 40-129 [facility] Serum or plasma calcium darien urement (mass/volume)Ordered By: Dionicio Grimes on 11-12-2024 Calcium [Mass/Vol] 9.1 mg/dL 7.6-11.0 [facility] Serum or plasma urea nitroge n measurement (mass/volume)Ordered By: Dionicio Grimes on 11-12-2024 Urea nitrogen [Mass/Vol] 12 mg/dL 4-19 [facility] Sodium levelOrdered By: Minh Grimes on 11-12-2024 Sodium [Moles/Vol] 135 mmol/L 133-145 [facility] Total proteinOrdered By: Sparkle Grimes on 11-12-2024 Protein [Mass/Vol] 7.8 g/dL 5.9-8.4 [facility] White blood cell (WBC) count Ordered By: Dionicio Grimes on 11-12-2024 WBC (Bld) [#/Vol] 10.2 10*3/uL 4.4-11.0 [facility] FACEMIHYUN BLACKBURN ([id number]) 1975 M Date Time Provider Department 11/09/24 [facility] During your visit today, we recorded the following information about you: Monserrat Alcantara, DOLORES 11/09/2024 12:00 PM Addendum Girlfriend Trudy, reports pt has been having CP- [...] can triage his symptoms. Girlfriend agreeable. Marshall Tran RN 11/09/2024 12:27 PM Signed See triage. Advised ER now. Patient agreeable to call squad and be seen at [facility]. Marshall Tran RN Allergies As of Date: 11/09/2024 Noted Allergy Reaction AUGMENTIN (AMOXICILLIN-POT CLAVUL*05/08/2011 6 - Diarrhea BACTRIM (SULFAMETHOXAZOLE) 06/27/2012 7 - Swelling Date Reviewed: 02/14/2024 Reviewed by: Raiza Rodrigez LPN - Fully Assessed Reason for Visit: [...] Status:Closed by MARSHALL TRAN on 11/09/24 Normal [facility] CBC W Auto Differential pane l (Bld)on 11-01-2023 Basophils (Bld) [#/Vol] 0.08 10*3/uL [facility] Basophils/100 WBC (Bld) 1.2 % [facility] Differential cell count method Nom (Bld) Auto [facility] Eosinophils (Bld) [#/Vol] 0.10 10*3/uL [facility] Eosinophils/100 WBC (Bld) 1.5 % [facility] Erythrocyte distribution width (RBC) [Ratio] 14.3 % 11.5 - 15.0 % [facility] Hematocrit (Bld) [Volume fraction] 49.6 % 39.0 - 51.0 % [facility] Hemoglobin (Bld) [Mass/Vol] 16.6 g/dL 13.0 - 17.0 g/dL [facility] Immature granulocytes (Bld) [#/Vol] 0.03 10*3/uL [facility] Immature granulocytes/100 WBC (Bld) 0.5 % [facility] Lymphocytes (Bld) [#/Vol] 2.23 10*3/uL [facility] Lymphocytes/100 WBC (Bld) 34.4 % [facility] MCH (RBC) [Entitic mass] 30.4 pg 26.0 - 34.0 pg [facility] MCHC (RBC) [Mass/Vol] 33.5 g/dL 30.5 - 36.0 g/dL [facility] MCV (RBC) [Entitic vol] 90.8 fL 80.0 - 100.0 fL [facility] Monocytes (Bld) [#/Vol] 0.40 10*3/uL [facility] Monocytes/100 WBC (Bld) 6.2 % [facility] Neutrophils (Bld) [#/Vol] 3.64 10*3/uL [facility] Neutrophils/100 WBC (Bld) 56.2 % [facility] Nucleated RBC (Bld) [#/Vol] [facility] Nucleated RBC/100 WBC (Bld) [Ratio] 0.0 % /100 WBC [facility] Platelet mean volume (Bld) [Entitic vol] 11.8 fL 9.0 - 12.7 fL [facility] Platelets (Bld) [#/Vol] 192 10*3/uL [facility] RBC (Bld) [#/Vol] 5.46 10*6/uL 4.20 - 6.0 0 m/uL [facility] WBC (Bld) [#/Vol] 6.48 10*3/uL [facility] Cobalamin (Vitamin B12) [Mas s/Vol]on 11-01-2023 Interpretation and review of laboratory results Normal [facility] Comprehensive metabolic 2000 panelon 11-01-2023 Albumin [Mass/Vol] 4.4 g/dL 3.9 - 4.9 g/dL [facility] ALP [Catalytic activity/Vol] 78 U/L 38 - 113 U/L [facility] ALT [Catalytic activity/Vol] 18 U/L 10 - 54 U/L [facility] Anion gap [Moles/Vol] 8 mmol/L Low 9 - 18 mmol/L [facility] AST [Catalytic activity/Vol] 18 U/L 14 - 40 U/L [facility] Bilirubin [Mass/Vol] 0.4 mg/dL 0.2 - 1 .3 mg/dL [facility] Calcium [Mass/Vol] 10.0 mg/dL 8.5 - 10. 2 mg/dL [facility] Chloride [Moles/Vol] 105 mmol/L 97 - 10 5 mmol/L [facility] CO2 [Moles/Vol] 25 mmol/L 22 - 30 mmol/L [facility] Creatinine [Mass/Vol] 0.92 mg/dL 0.73 - 1.22 mg/dL [facility] GFR/1.73 sq M.predicted among non-blacks MDRD (S/P/Bld) [Vol rate/Area] 101 mL/min/{1.73_m2} - PINF [facility] Comment on above: Estimated Glomerular Filtration Rate [...] 113 mg/dL High 74 - 99 mg/dL [facility] Comment on above: The [place] Diab[employer] s Association (ADA) provides guidance for [...] Standards of Medical Care in Diabetes 2016, [place] [employer]. Diabetes Care. 2016.39(Suppl 1). Potassium [Moles/Vol] 4.2 mmol/L 3.7 - 5.1 mmol/L [facility] Protein [Mass/Vol] 7.4 g/dL 6.3 - 8.0 g/dL [facility] Sodium [Moles/Vol] 138 mmol/L 136 - 144 mmol/L [facility] Urea nitrogen [Mass/Vol] 10 mg/dL 9 - 24 mg/dL [facility] HbA1c (Bld)on 11-01-2023 Average glucose Estimated from glycated hemoglobin (Bld) [Mass/Vol] 146 mg/dL [facility] Comment on above: eAG: (Estimated aver age glucose) is a calculated value from HgbA1c and is transportation services representative of the average blood glucose level in the last 2-3 month period. HbA1c (Bld) [Mass fraction] 6.7 % High 4.3 - 5.6 % [facility] Comment on above: [place] Diabetes As sociation guidelines indicate that patients with HgbA1c in the range 5.7-6.4% are at increased risk for development of diabetes, and intervention by lifestyle modification may be beneficial. HgbA1c greater or equal to 6.5% is considered diagnostic of diabetes. Interpretation and review of laboratory results Abnormal [facility] LIPID PANEL, NONFASTINGon Cholesterol [Mass/Vol] 180 mg/dL NINF - 200 mg/dL [facility] Comment on above: <200 mg/dL, Desirabl e 200-239 mg/dL, Borderline high >239 mg/dL, High HDL Cholesterol, Nonfasting 38 mg/dL Low 39 - PINF mg/dL [facility] Comment on above: 40-59 mg/dL, Accepta ble >59 mg/dL, High: Negative risk factor for coronary heart disease <40 mg/dL, Low: Positive risk factor for coronary heart disease LDL Cholesterol, Nonfasting 117 mg/dL High NINF - 100 mg/dL [facility] Comment on above: <100 mg/dL, Optimal 100-129 mg/dL, Near optimal/above optimal 130-159 mg/dL, Borderline high 160-189 mg/dL, High >189 mg/dL, Very high Secondary prevention optimal LDL Cholesterol levels are recommended to be < 70 mg/dL LDL/HDL Ratio, Nonfasting 3.08 mg/dL High NINF - 2.54 mg/dL [facility] Comment on above: Reference: 1. National Cholesterol Education Program ATP III Guideline At-A-Glance Quick Desk Reference: National Heart, Lung, and Blood [employer]. National Institutes of Health. 2001: NIH Publication No. 01-3305. 2. An International Atherosclerosis Society position paper: global recommendations for the management of dyslipidemia: executive summary, Atherosclerosis. 2014: 232(2):410-413. Non HDL Cholesterol, Nonfasting 142 mg/dL High NINF - 130 mg/dL [facility] Comment on above: <130 mg/dL, Optimal 130-159 mg/dL, Near optimal/above optimal 160-189 mg/dL, Borderline high 190-219 mg/dL, High >219 mg/dL, Very high Secondary prevention optimal non HDL Cholesterol levels are recommended to be <100 mg/dL Total Chol/HDL Ratio, Nonfasting 4.74 mg/dL NINF - 5.10 mg/dL [facility] Triglycerides, Nonfasting 125 mg/dL NINF - 150 mg/dL [facility] Comment on above: <150 mg/dL, Normal 150-199 mg/dL, Borderline high 200-499 mg/dL, High >499 mg/dL, Very high VLDL Cholesterol, Nonfasting 25 mg/dL NINF - 30 mg/dL [facility] MAGNESIUMon 11-01-2023 Magnesium [Mass/Vol] 2.1 mg/dL 1.7 - 2 .3 mg/dL [facility] Magnesium [Mass/Vol]on 10-31 Interpretation and review of laboratory results Normal [facility] No Panel Informationon 10-31 Interpretation and review of laboratory results Abnormal [facility] VITAMIN B12on 11-01-2023 Cobalamin (Vitamin B12) [Mass/Vol] 404 pg/mL 232 - 1245 pg/mL [facility] Office Visiton 12-02-2016 Alcoholism counseling (procedure) no Invalid Interpretation Code [facility] [employer] Work Phone: Documentation of current medications (procedure) T Invalid Interpretation Code [facility] [employer] Work Phone: Documentation of current medications (procedure) Done Invalid Interpretation Code [facility] [employer] Work Phone: Fall risk assessment No Invalid Interpretation Code [facility] [employer] Work Phone: Smoking cessation education (procedure) yes Invalid Interpretation Code [facility] [employer] Work Phone: Tobacco smoking status NHIS Never Invalid Interpretation Code [facility] Work Phone: Tobacco use [facility] Current every day smoker Invalid Interpretation Code [facility] Work Phone: Vital Signs Date Time Vital Sign Value Performing Clinician Facility 03-20-2025 13:41-0400 Body mass index (BMI) [Ratio] 16.93 kg/m2 Gilda Suppan 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 Work Phone: [facility] 03-20-2025 13:41-0400 Body temperature 98.2 [degF] Gilda Suppan 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 Work Phone: [facility] 03-20-2025 13:41-0400 Body weight 53.52 kg Gilda Suppan 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 Work Phone: [facility] 03-20-2025 13:41-0400 Diastolic blood pressure 58 mm[Hg] Gilda Suppan 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 Work Phone: [facility] 03-20-2025 13:41-0400 Heart rate 124 /min Gilda Suppan 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 Work Phone: [facility] 03-20-2025 13:41-0400 SaO2% (BldA) [Mass fraction] 96 % Gilda Suppan 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 Work Phone: [facility] 03-20-2025 13:41-0400 Systolic blood pressure 100 mm[Hg] Gilda Suppan 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 Work Phone: [facility] 03-08-2025 09:01-0400 Body height 175.[address] Cristian Adame MD Work Phone: [facility] 03-08-2025 09:01-0400 Body mass index (BMI) [Ratio] 18.8 kg/m2 Dr. Cristian Adame MD Work Phone: [facility] 03-08-2025 09:01-0400 Body temperature 98.5 [degF] Dr. Cristian Adame MD Work Phone: 6(206)[phone] [place] [address] 03-08-2025 09:01-0400 Body weight 58.[address] Cristian Adame MD Work Phone: 0(627)034-793482 [place] [address] 03-08-2025 09:01-0400 Diastolic blood pressure 77 mm[Hg] Dr. Cristian Adame MD Work Phone: 8(724)705-966282 [place] [address] 03-08-2025 09:01-0400 Heart rate 120 /min Dr. Cristian Adame MD Work Phone: 2(970)452-418982 [place] [address] 03-08-2025 09:01-0400 Respiratory rate 18 /min Dr. Cristian Adame MD Work Phone: 4(168)192-643082 [place] [address] 03-08-2025 09:01-0400 SaO2% (BldA) [Mass fraction] 94 % Dr. Cristian Adame MD Work Phone: 6(159)640-512982 [place] [address] 03-08-2025 09:01-0400 Systolic blood pressure 105 mm[Hg] Dr. Cristian Adame MD Work Phone: 0(284)026-399282 [place] [address] 03-07-2025 08:36-0400 Body height 175.[address] Cristian Adame MD Work Phone: 2(769)437-853082 [place] [address] 03-07-2025 08:36-0400 Body mass index (BMI) [Ratio] 18.8 kg/m2 Dr. Cristian Adame MD Work Phone: 4(108)489-765382 [place] [address] 03-07-2025 08:36-0400 Body temperature 97.4 [degF] Dr. Cristian Adame MD Work Phone: 8(955)833-151082 [place] [address] 03-07-2025 08:36-0400 Body weight 58.[address] Cristian Adaem MD Work Phone: 4(230)522-048682 [place] [address] 03-07-2025 08:36-0400 Diastolic blood pressure 68 mm[Hg] Dr. Cristian Adame MD Work Phone: 8(264)287-695282 [place] [address] 03-07-2025 08:36-0400 Heart rate 124 /min Dr. Cristian Adame MD Work Phone: 1(064)676-834782 [place] [address] 03-07-2025 08:36-0400 Respiratory rate 18 /min Dr. Cristian Adame MD Work Phone: 9(432)405-414882 [place] [address] 03-07-2025 08:36-0400 SaO2% (BldA) [Mass fraction] 99 % Dr. Cristian Adame MD Work Phone: 5(429)794-706982 [place] [address] 03-07-2025 08:36-0400 Systolic blood pressure 98 mm[Hg] Dr. Cristian Adame MD Work Phone: 5(678)495-401682 [place] [address] 03-01-2025 14:52-0400 Diastolic blood pressure 71 mm[Hg] Dr. Cristian Adame MD Work Phone: 7(571)926-169682 [place] [address] 03-01-2025 14:52-0400 Heart rate 85 /min Dr. Cristian Adame MD Work Phone: 9(975)493-065382 [place] [address] 03-01-2025 14:52-0400 Respiratory rate 16 /min Dr. Cristian Adame MD Work Phone: 7(925)645-285382 [place] [address] 03-01-2025 14:52-0400 SaO2% (BldA) [Mass fraction] 99 % Dr. Cristian Adame MD Work Phone: 1(581)785-754982 [place] [address] 03-01-2025 14:52-0400 Systolic blood pressure 108 mm[Hg] Dr. Cristian Adame MD Work Phone: 1(841)381-405182 [place] [address] 03-01-2025 08:31-0400 Body height 175.[address] Cristian Adame MD Work Phone: 3(364)632-419582 [place] [address] 03-01-2025 08:31-0400 Body mass index (BMI) [Ratio] 19.4 kg/m2 Dr. Cristian Adame MD Work Phone: 3(995)530-467682 [place] [address] 03-01-2025 08:31-0400 Body temperature 98.4 [degF] Dr. Cristian Adame MD Work Phone: 6(935)597-098582 [place] [address] 03-01-2025 08:31-0400 Body weight 59.[address] Cristian Adame MD Work Phone: 5(185)729-824282 [place] [address] 03-01-2025 08:31-0400 Diastolic blood pressure 70 mm[Hg] Dr. Cristian Adame MD Work Phone: 1(769)926-727682 [place] [address] 03-01-2025 08:31-0400 Heart rate 111 /min Dr. Cristian Adame MD Work Phone: 3(890)338-046282 [place] [address] 03-01-2025 08:31-0400 Respiratory rate 18 /min Dr. Cristian Adame MD Work Phone: 2(827)938-814082 [place] [address] 03-01-2025 08:31-0400 SaO2% (BldA) [Mass fraction] 94 % Dr. Cristian Adame MD Work Phone: 9(164)950-680182 [place] [address] 03-01-2025 08:31-0400 Systolic blood pressure 102 mm[Hg] Dr. Cristian Adame MD Work Phone: 5(225)066-770682 [place] [address] 02-20-2025 11:50-0400 Body temperature 98.3 [degF] Dr. Cristian Adame MD Work Phone: 9(413)962-546782 [place] [address] 02-20-2025 11:50-0400 Diastolic blood pressure 70 mm[Hg] Dr. Cristian Adame MD Work Phone: 7(693)082-500482 [place] [address] 02-20-2025 11:50-0400 Heart rate 101 /min Dr. Cristian Adame MD Work Phone: 0(820)017-221482 [place] [address] 02-20-2025 11:50-0400 Respiratory rate 16 /min Dr. Cristian Adame MD Work Phone: 7(329)641-006082 [place] [address] 02-20-2025 11:50-0400 SaO2% (BldA) [Mass fraction] 95 % Dr. Cristian Adame MD Work Phone: 5(479)271-299982 [place] [address] 02-20-2025 11:50-0400 Systolic blood pressure 94 mm[Hg] Dr. Cristian Adame MD Work Phone: 9(990)989-186082 [place] [address] 02-20-2025 09:22-0400 Body height 175.[address] Cristian Adame MD Work Phone: 9(707)228-459482 [place] [address] 02-20-2025 09:22-0400 Body mass index (BMI) [Ratio] 19.8 kg/m2 Dr. Cristian Adame MD Work Phone: 3(769)317-456382 [place] [address] 02-20-2025 09:22-0400 Body weight [address] Cristian Adame MD Work Phone: 0(997)724-753782 [place] [address] 02-15-2025 14:110400 Body height 175.[address] Cristian Adame MD Work Phone: 5(922)957-025082 [place] [address] 02-15-2025 14:11-0400 Body mass index (BMI) [Ratio] 20.3 kg/m2 Dr. Cristian Adame MD Work Phone: 7(355)931-281282 [place] [address] 02-15-2025 14:11-0400 Body temperature 97.2 [degF] Dr. Cristian Adame MD Work Phone: 3(465)649-418182 [place] [address] 02-15-2025 14:11-0400 Body weight 62.[address] Cristian Adame MD Work Phone: 0(582)774-003682 [place] [address] 02-15-2025 14:11-0400 Diastolic blood pressure 66 mm[Hg] Dr. Cristian Adame MD Work Phone: 0(414)819-942682 [place] [address] 02-15-2025 14:11-0400 Heart rate 112 /min Dr. Cristian Adame MD Work Phone: 0(897)701-499682 [place] [address] 02-15-2025 14:11-0400 Respiratory rate 18 /min Dr. Cristian Adame MD Work Phone: 2(312)394-171982 [place] [address] 02-15-2025 14:11-0400 SaO2% (BldA) [Mass fraction] 92 % Dr. Cristian Adame MD Work Phone: 7(306)998-050882 [place] [address] 02-15-2025 14:11-0400 Systolic blood pressure 98 mm[Hg] Dr. Cristian Adame MD Work Phone: 9(002)462-470782 [place] [address] 02-13-2025 16:44-0400 Body height 175.[address] Cristian Adame MD Work Phone: 7(047)591-939282 [place] [address] 02-13-2025 16:43-0400 Body mass index (BMI) [Ratio] 20.8 kg/m2 Dr. Cristian Adame MD Work Phone: 3(784)503-880722 [place] [address] 02-13-2025 16:43-0400 Body temperature 98.5 [degF] Dr. Cristian Adame MD Work Phone: 2(199)607-426182 [place] [address] 02-13-2025 16:43-0400 Body weight 63.[address] Cristian Adame MD Work Phone: 0(739)059-756682 [place] [address] 02-13-2025 16:43-0400 Diastolic blood pressure 78 mm[Hg] Dr. Cristian Adame MD Work Phone: 0(348)426-545082 [place] [address] 02-13-2025 16:43-0400 Heart rate 111 /min Dr. Cristian Adame MD Work Phone: 3(465)969-160382 [place] [address] 02-13-2025 16:43-0400 Respiratory rate 18 /min Dr. Cristian Adame MD Work Phone: 8(605)919-951382 [place] [address] 02-13-2025 16:43-0400 SaO2% (BldA) [Mass fraction] 94 % Dr. Cristian Adame MD Work Phone: 9(703)582-110482 [place] [address] 02-13-2025 16:43-0400 Systolic blood pressure 112 mm[Hg] Dr. Cristian Adame MD Work Phone: 5(160)240-908282 [place] [address] 02-12-2025 14:31-0400 Body height 175.[address] Cristian Adame MD Work Phone: 0(679)682-286782 [place] [address] 02-12-2025 14:31-0400 Body mass index (BMI) [Ratio] 20.8 kg/m2 Dr. Cristian Adame MD Work Phone: 9(045)648-147282 [place] [address] 02-12-2025 14:31-0400 Body weight 64.[address] Cristian Adame MD Work Phone: 5(717)110-459682 [place] [address] 02-12-2025 14:23-0400 Body temperature 98 [degF] Dr. Cristian Adame MD Work Phone: 0(052)709-257382 [place] [address] 02-12-2025 14:23-0400 Diastolic blood pressure 73 mm[Hg] Dr. Cristian Adame MD Work Phone: [facility] 02-12-2025 14:23-0400 Heart rate 118 /min Dr. Cristian Adame MD Work Phone: [facility] 02-12-2025 14:23-0400 Respiratory rate 18 /min Dr. Cristian Adame MD Work Phone: [facility] 02-12-2025 14:23-0400 SaO2% (BldA) [Mass fraction] 95 % Dr. Cristian Adame MD Work Phone: [facility] [facility] 02-12-2025 14:23-0400 Systolic blood pressure 107 mm[Hg] Dr. Cristian Adame MD Work Phone: [facility] 01-30-2025 12:44-0400 Body mass index (BMI) [Ratio] 20.09 kg/m2 Gilda Suppan 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 Work Phone: [facility] 01-30-2025 12:44-0400 Body temperature 98.49 [degF] Gilda Suppan 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 Work Phone: [facility] 01-30-2025 12:44-0400 Body weight 63.5 kg Gilda Suppan 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 Work Phone: [facility] 01-30-2025 12:44-0400 Diastolic blood pressure 58 mm[Hg] Gilda Suppan 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 Work Phone: [facility] 01-30-2025 12:44-0400 Heart rate 113 /min Gilda Suppan 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 Work Phone: [facility] 01-30-2025 12:44-0400 SaO2% (BldA) [Mass fraction] 95 % Gilda Suppan 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 Work Phone: [facility] 01-30-2025 12:44-0400 Systolic blood pressure 100 mm[Hg] Gilda Suppan 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 Work Phone: [facility] 01-18-2025 08:13-0400 Body height 175.[address] Cristian Adame MD Work Phone: 2(522)606-350182 [place] [address] 01-18-2025 08:13-0400 Body mass index (BMI) [Ratio] 21.7 kg/m2 Dr. Cristian Adame MD Work Phone: 0(348)942-273882 [place] [address] 01-18-2025 08:13-0400 Body temperature 97.6 [degF] Dr. Cristian Adame MD Work Phone: 0(592)314-465882 [place] [address] 01-18-2025 08:13-0400 Body weight 66.[address] Cristian Adame MD Work Phone: 4(842)581-824682 [place] [address] 01-18-2025 08:13-0400 Diastolic blood pressure 71 mm[Hg] Dr. Cristian Adame MD Work Phone: 1(418)602-211082 [place] [address] 01-18-2025 08:13-0400 Heart rate 112 /min Dr. Cristian Adame MD Work Phone: 4(603)116-081582 [place] [address] 01-18-2025 08:13-0400 Respiratory rate 16 /min Dr. Cristian Adame MD Work Phone: 6(399)394-249682 [place] [address] 01-18-2025 08:13-0400 SaO2% (BldA) [Mass fraction] 95 % Dr. Cristian Adame MD Work Phone: 2(738)937-380282 [place] [address] 01-18-2025 08:13-0400 Systolic blood pressure 105 mm[Hg] Dr. Cristian Adame MD Work Phone: 9(930)290-611382 [place] [address] 01-04-2025 14:49-0400 Diastolic blood pressure 81 mm[Hg] Dr. Cristian Adame MD Work Phone: 0(723)708-917682 [place] [address] 01-04-2025 14:49-0400 Heart rate 98 /min Dr. Cristian Adame MD Work Phone: 1(069)442-177482 [place] [address] 01-04-2025 14:49-0400 Respiratory rate 27 /min Dr. Cristian Adame MD Work Phone: 3(667)818-582782 [place] [address] 01-04-2025 14:49-0400 SaO2% (BldA) [Mass fraction] 95 % Dr. Cristian Adame MD Work Phone: [facility] 01-04-2025 14:49-0400 Systolic blood pressure 110 mm[Hg] Dr. Cristian Adame MD Work Phone: [facility] 01-04-2025 09:20-0400 Body height 175.[address] Cristian Adame MD Work Phone: [facility] 01-04-2025 09:20-0400 Body mass index (BMI) [Ratio] 23.6 kg/m2 Dr. Cristian Adame MD Work Phone: [facility] 01-04-2025 09:20-0400 Body temperature 98.8 [degF] Dr. Cristian Adame MD Work Phone: [facility] 01-04-2025 09:20-0400 Body weight 72.[address] Cristian Adame MD Work Phone: [facility] 12-15-2024 14:31-0400 Body mass index (BMI) [Ratio] 22.96 kg/m2 Cristian Adame MD Work Phone: [facility] 12-15-2024 14:31-0400 Body weight 72.58 kg Cristian Adame MD Work Phone: [facility] 12-15-2024 14:31-0400 Diastolic blood pressure 62 mm[Hg] Cristian Adame MD Work Phone: [facility] 12-15-2024 14:31-0400 Heart rate 111 /min Cristian Adame MD Work Phone: [facility] 12-15-2024 14:31-0400 SaO2% (BldA) [Mass fraction] 97 % Cristian Adame MD Work Phone: [facility] 12-15-2024 14:31-0400 Systolic blood pressure 102 mm[Hg] Cristian Adame MD Work Phone: [facility] 11-22-2024 10:43-0400 Body height 177.8 cm Cristian Adame MD Work Phone: [facility] 11-22-2024 10:43-0400 Body mass index (BMI) [Ratio] 23.68 kg/m2 Cristian Adame MD Work Phone: [facility] 11-22-2024 10:43-0400 Body weight 74.84 kg Cristian Adame MD Work Phone: [facility] 11-22-2024 10:43-0400 Diastolic blood pressure 86 mm[Hg] Cristian Adame MD Work Phone: [facility] 11-22-2024 10:43-0400 Heart rate 100 /min Cristian Adame MD Work Phone: [facility] 11-22-2024 10:43-0400 SaO2% (BldA) [Mass fraction] 96 % Cristian Adame MD Work Phone: [facility] 11-22-2024 10:43-0400 Systolic blood pressure 108 mm[Hg] Cristian Adame MD Work Phone: [facility] 11-14-2024 08:53-0400 Body height 175.[address] Cristian Adame MD Work Phone: [facility] 11-14-2024 08:53-0400 Body mass index (BMI) [Ratio] 24 kg/m2 Dr. Cristian Adame MD Work Phone: [facility] 11-14-2024 08:53-0400 Body temperature 98.2 [degF] Dr. Cristian Adame MD Work Phone: [facility] 11-14-2024 08:53-0400 Body weight 73.[address] Cristian Adame MD Work Phone: [facility] 11-14-2024 08:53-0400 Diastolic blood pressure 84 mm[Hg] Dr. Cristian Adame MD Work Phone: [facility] 11-14-2024 08:53-0400 Heart rate 88 /min Dr. Cristian Adame MD Work Phone: [facility] 11-14-2024 08:53-0400 Respiratory rate 18 /min Dr. Cristian Adame MD Work Phone: 2(807)542-388122 [place] [address] 11-14-2024 08:53-0400 SaO2% (BldA) [Mass fraction] 97 % Dr. Cristian Adame MD Work Phone: 1(331)180-131782 [place] [address] 11-14-2024 08:53-0400 Systolic blood pressure 125 mm[Hg] Dr. Cristian Adame MD Work Phone: 9(414)506-395682 [place] [address] 11-12-2024 11:48-0400 Body temperature 97.8 [degF] Dr. Cristian Adame MD Work Phone: 5(900)086-825282 [place] [address] 11-12-2024 11:48-0400 Diastolic blood pressure 74 mm[Hg] Dr. Cristian Adame MD Work Phone: 1(994)064-784182 [place] [address] 11-12-2024 11:48-0400 Heart rate 79 /min Dr. Cristian Adame MD Work Phone: 4(120)057-971882 [place] [address] 11-12-2024 11:48-0400 Respiratory rate 15 /min Dr. Cristian Adame MD Work Phone: 8(572)799-642382 [place] [address] 11-12-2024 11:48-0400 SaO2% (BldA) [Mass fraction] 98 % Dr. Cristian Adame MD Work Phone: 1(155)846-842082 [place] [address] 11-12-2024 11:48-0400 Systolic blood pressure 124 mm[Hg] Dr. Cristian Adame MD Work Phone: 1(864)824-314282 [place] [address] 11-12-2024 08:03-0400 Body mass index (BMI) [Ratio] 25.1 kg/m2 Dr. Cristian Adame MD Work Phone: 3(484)398-324482 [place] [address] 11-12-2024 08:03-0400 Body weight 77.[address] Cristian Adame MD Work Phone: 9(696)830-974082 [place] [address] 02-14-2024 14:36-0400 Body mass index (BMI) [Ratio] 25.25 kg/m2 Cristian Adame MD Work Phone: [facility] 02-14-2024 14:36-0400 Body weight 79.83 kg Cristian Adame MD Work Phone: [facility] 02-14-2024 14:36-0400 Diastolic blood pressure 92 mm[Hg] Cristian Adame MD Work Phone: [facility] 02-14-2024 14:36-0400 Heart rate 101 /min Cristian Adame MD Work Phone: [facility] 02-14-2024 14:36-0400 SaO2% (BldA) [Mass fraction] 95 % Cristian Adame MD Work Phone: [facility] 02-14-2024 14:36-0400 Systolic blood pressure 122 mm[Hg] Cristian Adame MD Work Phone: [facility] 11-01-2023 10:27-0400 Body mass index (BMI) [Ratio] 25.54 kg/m2 Gilda Suppan SUPERVISOR CELL MAINTENANCE.SPECIALTY TRIMMER Work Phone: [facility] 11-01-2023 10:27-0400 Body weight 80.74 kg Gilda Suppan SUPERVISOR CELL MAINTENANCE.SPECIALTY TRIMMER Work Phone: [facility] 11-01-2023 10:27-0400 Diastolic blood pressure 80 mm[Hg] Gilda Suppan SUPERVISOR CELL MAINTENANCE.SPECIALTY TRIMMER Work Phone: [facility] 11-01-2023 10:27-0400 Heart rate 77 /min Gilda Suppan SUPERVISOR CELL MAINTENANCE.SPECIALTY TRIMMER Work Phone: [facility] 11-01-2023 10:27-0400 Respiratory rate 18 /min Gilda Suppan SUPERVISOR CELL MAINTENANCE.SPECIALTY TRIMMER Work Phone: [facility] 11-01-2023 10:27-0400 SaO2% (BldA) [Mass fraction] 97 % Gilda Suppan SUPERVISOR CELL MAINTENANCE.SPECIALTY TRIMMER Work Phone: [facility] 11-01-2023 10:27-0400 Systolic blood pressure 138 mm[Hg] Gilda Suppan SUPERVISOR CELL MAINTENANCE.SPECIALTY TRIMMER Work Phone: [facility] 12-30-2021 16:22-0400 Body weight 84.82 kg Cristian Adame MD Work Phone: [facility] 12-30-2021 16:22-0400 Diastolic blood pressure 82 mm[Hg] Cristian Adame MD Work Phone: [facility] 12-30-2021 16:22-0400 Heart rate 110 /min Cristian Adame MD Work Phone: [facility] 12-30-2021 16:22-0400 Respiratory rate 16 /min Cristian Adame MD Work Phone: [facility] 12-30-2021 16:22-0400 SaO2% (BldA) [Mass fraction] 97 % Cristian Adame MD Work Phone: [facility] 12-30-2021 16:22-0400 Systolic blood pressure 120 mm[Hg] Cristian Adame MD Work Phone: [facility] 12-02-2016 15:07-0400 BMI (Body Mass Index) 22.59 kg/m2 Hernan Vincent MD [facility] [employer] Work Phone: 12-02-2016 15:07-0400 Body Temperature 98.1 [degF] Hernan Vincent MD [facility] [employer] Work Phone: 12-02-2016 15:07-0400 BP Diastolic 76 mm[Hg] Hernan Vincent MD [facility] [employer] Work Phone: 12-02-2016 15:07-0400 BP Systolic 112 mm[Hg] Hernan Vincent MD [facility] [employer] Work Phone: 12-02-2016 15:07-0400 Height 175.26 cm Hernan Vincent MD [facility] [employer] Work Phone: 12-02-2016 15:07-0400 Pulse (Heart Rate) 61 /min Hernan Vincent MD [facility] [employer] Work Phone: 12-02-2016 15:07-0400 Pulse Oximetry 98 % Hernan Vincent MD [facility] [employer] Work Phone: 12-02-2016 15:07-0400 Respiratory Rate 16 /min Hernan Vincent MD [facility] Work Phone: 12-02-2016 15:07-0400 Weight 69.4 kg Hernan Vincent MD [facility] Work Phone: Encounters Encounter Date Encounter Type Care Provider Facility Start: 03-21-2025 End: 03-21-2025 Telephone encounter Ghada Salazar [facility] Start: 03-20-2025 End: 03-20-2025 Office outpatient visit 15 minutes Gilda Noonan APRN.MANUFACTURING LEADER Work Phone: [facility] Comment on above: Acute pharyngitis, u nspecified etiology (Primary Dx); Abnormal lung sounds; 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 Regino Burleson MD -[facility] Start: 03-08-2025 End: 03-08-[address] Regino Burleson MD -[facility] Work Phone: Start: 03-08-2025 End: 03-08-[address] Cristian Adame MD Work Phone: [facility] Start: 03-07-2025 End: 03-07-2025 Patient encounter procedure Tayler Cardenas NP-[facility] Work Phone: Start: 03-07-2025 End: 03-07-[address] Cristian Adame MD Work Phone: -[facility] Start: 03-01-[address] Regino Burleson MD -[facility] Start: 03-01-2025 End: 03-01-2025 Patient encounter procedure Yelena Gallegos NP-[facility] Work Phone: Start: 03-01-2025 End: 03-01-[address] Cristian Adame MD Work Phone: [facility] Comment on above: Refill Request Start: 02-20-2025 Non-patient / Non-visit Dr. Maris Vincent MD -[facility] Start: 02-20-2025 End: 02-20-2025 Admission to same day surgery center Dr. Hernan Vincent MD [facility] Start: 02-20-2025 End: 02-20-[address] Cristian Adame MD Work Phone: [facility] Start: 02-16-2025 End: 02-17-2025 Refill Gilda Noonan APRN.CNP Work Phone: [facility] Comment on above: Refill Request Start: 02-15-2025 End: 02-15-[address] Hernan Vincent MD [facility] Work Phone: Start: 02-15-2025 End: 02-15-[address] Cristian Adame MD Work Phone: [facility] Start: 02-13-2025 End: 02-13-2025 Patient encounter procedure Yelena Gallegos NP-[facility] -[facility] Work Phone: Start: 02-13-2025 End: 02-13-[address] Cristian Adame MD Work Phone: [facility] Start: 02-13-[address] Regino Burleson MD -[facility] Start: 02-12-2025 End: 02-12-[address] Regino Burleson MD -[facility] Work Phone: Start: 02-12-2025 End: 02-12-[address] Cristian Adame MD Work Phone: [facility] Start: 02-10-2025 End: 02-10-2025 Refill Cristian Adame MD Work Phone: [facility] Comment on above: Refill Request Start: 02-06-2025 End: 02-06-2025 Patient encounter procedure Tayler Cardenas NP-C -[facility] Start: 02-06-2025 End: 02-06-2025 Refill Cristian Adame MD Work Phone: [facility] Comment on above: Refill Request Start: 02-06-2025 End: 02-06-2025 ambulatory Tayler Cardenas NP Facility:[facility] Start: 02-01-2025 End: 02-05-2025 Follow-up encounter Gilda Noonan APRN.MANUFACTURING LEADER Work Phone: [facility] Start: 02-01-2025 End: 02-01-2025 ambulatory [facility] Facility:[facility] Start: 01-30-2025 End: 01-30-2025 Telephone encounter Gilda Noonan APRN.MANUFACTURING LEADER Work Phone: [facility] Comment on above: Refill Request Start: 01-30-2025 End: 01-30-2025 Office outpatient visit 25 minutes Gilda Noonan 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 Work Phone: [facility] Comment on above: Dysuria (Primary Dx) ; Controlled type 2 diabetes mellitus without complication, with long-term current use of insulin (HCC); Acute constipation; Malignant neoplasm of lower lobe of lung, unspecified laterality (HCC) Start: 01-30-2025 End: 01-30-2025 ambulatory CRISTIAN ADAME Facility:[facility] Start: 01-25-2025 End: 01-25-2025 Refill Cristian Adame MD Work Phone: [facility] Comment on above: Refill Request Start: 01-22-2025 End: 01-22-2025 Refill Cristian Adame MD Work Phone: [facility] Comment on above: Refill Request Start: 01-18-2025 End: 01-18-2025 Patient encounter procedure Tayler FRIAS -[facility] Work Phone: Start: 01-18-2025 End: 01-18-[address] Cristian Adame MD Work Phone: [facility] Start: 01-16-2025 End: 01-16-2025 Refill Cristian Adame MD Work Phone: [facility] Comment on above: Refill Request Start: 01-04-2025 End: 01-04-[address] Denny Moffett DO -Cat Scan [facility] Work Phone: Start: 01-04-2025 End: 01-04-2025 Refill Gilda Noonan APRN.CNP Work Phone: [facility] Comment on above: Refill Request Medication Problem Start: 01-04-2025 End: 01-04-2025 ambulatory [facility] Facility:[facility] Start: 12-27-2024 End: 12-27-2024 Telephone encounter Cristian Adame MD Work Phone: [facility] Comment on above: Patient Question Start: 12-21-2024 End: 12-21-2024 Telephone encounter Cristian Adame MD Work Phone: [facility] Comment on above: Patient Question Start: 12-20-2024 End: 12-20-2024 Refill Cristian Adame MD Work Phone: [facility] Comment on above: Refill Request Start: 12-19-2024 End: 12-19-2024 Telephone encounter Cristian Adame MD Work Phone: [facility] Comment on above: Results Start: 12-18-2024 End: 12-18-2024 ambulatory CRISTIAN ADAME Facility:[facility] Start: 12-18-2024 End: 12-18-2024 Telephone encounter Cristian Adame MD Work Phone: [facility] Comment on above: Results Start: 12-15-2024 End: 12-15-2024 Subsequent hospital visit by physician [facility] Work Phone: Radiology Comment on above: Acute constipation [ K59.00] Start: 12-15-2024 End: 12-15-2024 Patient encounter procedure Cristian Adame MD Work Phone: [facility] Comment on above: Hilar lymphadenopath y (Primary Dx); Medication monitoring encounter; Lymphadenopathy, abdominal; Lung nodules; Chest wall pain; Tobacco abuse; Gross hematuria; Acute constipation; Night sweats Start: 12-15-2024 End: 12-15-2024 ambulatory CRISTIAN ADAME Facility:[facility] Start: 11-28-2024 End: 11-28-2024 Refill Cristian Adame MD Work Phone: [facility] Comment on above: Refill Request Start: 11-23-2024 End: 11-23-2024 Telephone encounter Cristian Adame MD Work Phone: Pulmonology [facility] Comment on above: Results Start: 11-22-2024 End: 11-22-2024 ambulatory CRISTIAN ADAME Facility:[facility] Start: 11-22-2024 End: 11-22-2024 Patient encounter procedure Cristian Adame MD Work Phone: [facility] Comment on above: Lung nodules (Primar y Dx); Controlled type 2 diabetes mellitus without complication, without long-term current use of insulin (HCC); Hyperlipidemia, mixed; Tobacco abuse; Lymphadenopathy, abdominal; Hilar lymphadenopathy Start: 11-22-2024 End: 11-22-2024 ambulatory CRISTIAN ADAME Facility:[facility] Start: 11-14-2024 End: 11-14-[address] Cristian Adame MD Work Phone: [facility] Work Phone: Start: 11-14-2024 End: 11-14-[address] Denny Moffett DO -Laboratory Work Phone: Start: 11-14-2024 End: 11-14-[address] Denny Moffett DO -[facility] Work Phone: Start: 11-14-2024 End: 11-14-2024 ambulatory Denny Moffett Facility:[facility] Start: 11-14-2024 End: 11-14-2024 ambulatory Denny Moffett Facility:[facility] Start: 11-12-2024 End: 11-12-2024 Emergency department patient visit Dr. Dionicio Grimes DO -Emergency Department Work Phone: Start: 11-09-2024 End: 11-09-2024 ambulatory Cristian Adame MD Work Phone: [facility] Comment on above: Chest Pain Start: 11-09-2024 End: 11-09-2024 Telephone encounter Cristian Adame MD Work Phone: [facility] Comment on above: Chest Pain Start: 10-04-2024 End: 10-04-2024 Refill Cristian Adame MD Work Phone: [facility] Comment on above: Refill Request Start: 02-16-2024 Telephone encounter Cristian Adame MD Work Phone: [facility] Comment on above: Results Start: 02-14-2024 End: 02-14-2024 Patient encounter procedure Cristian Adame MD Work Phone: [facility] Comment on above: Controlled type 2 di abetes mellitus without complication, without long-term current use of insulin (HCC) (Primary Dx); Hyperlipidemia, mixed; Tobacco abuse; Screening for prostate cancer; Encounter for screening examination for other mental health and behavioral disorders Start: 02-08-2024 Telephone encounter Cristian Adame MD Work Phone: [facility] Comment on above: Appointment Start: 11-29-2023 Telephone encounter Gilda Noonan APRN.SPECIALTY TRIMMER Work Phone: [facility] Comment on above: Medication Problem Start: 11-01-2023 Telephone encounter Gilda Noonan APRN.SPECIALTY TRIMMER Work Phone: [facility] [place] Comment on above: Results Start: 11-01-2023 End: 11-01-2023 Periodic preventive med est patient 40-64yrs Gilda Noonan APRN.SPECIALTY TRIMMER Work Phone: [facility] Comment on above: Screening for colon cancer (Primary Dx); Hiatal hernia; Screening for diabetes mellitus; Screening for lipid disorders; Chronic pain of both knees; Tobacco abuse; Acute pharyngitis due to other specified organisms; Allergic contact dermatitis due to other agents Start: 10-27-2023 Telephone encounter Cristian Adame MD Work Phone: [facility] Comment on above: Opened In Error Start: 10-08-2022 Refill Cristian Adame MD Work Phone: [facility] Comment on above: Refill Request Start: 12-30-2021 End: 12-30-2021 Patient encounter procedure [facility] Comment on above: Paresthesia (Primary Dx); Screening for colon cancer Procedures Date Procedure Procedure Detail Performing Clinician Start: 03-01-2025 Osmolality measurement, serum Dr. Cristian Adame MD Work Phone: Start: 03-01-[address] Cristian Adame MD Work Phone: Start: 02-20-2025 Plain chest X-ray Dr. Cristian Adame MD Work Phone: Start: 02-20-[address] Cristian Julian Work Phone: Start: 02-20-2025 Implantation to cardiovascular system Dr. Cristian Adame MD Work Phone: Start: 02-12-2025 Serum inorganic phosphate measurement Dr. Cristian Adame MD Work Phone: Start: 02-06-2025 Positron emission tomography with computed tomography Dr. Cristian Adame MD Work Phone: Start: 01-04-2025 Plain chest X-ray Dr. Cristian Adame MD Work Phone: Start: 01-04-2025 Plain chest X-ray Dr. Cristian Adame MD Work Phone: Start: 01-04-2025 Biopsy/Inj or Needle Placement Dr. Cristian Adame MD Work Phone: Start: 12-15-2024 Radiologic exam abdomen 1 view Cristian Adame MD Work Phone: Start: 11-12-2024 CT of thorax, abdomen and pelvis with contrast Dr. Cristian Adame MD Work Phone: Start: 11-12-[address] Cristian Adame MD Work Phone: Start: 02-14-2024 Lipid 1996 panel - Serum or Plasma Cristian Adame MD Work Phone: Start: 11-01-2023 Lipid 1996 panel - Serum or Plasma Gilda Noonan SUPERVISOR CELL MAINTENANCE.SPECIALTY TRIMMER Work Phone: Start: 01-15-2021 Lipid 1995 panel - Serum or Plasma Cristian Adame MD Work Phone: H/O: surgery History of surge ry on arm Dr. Cristian Adame MD Work Phone: Plan of Treatment Date Care Activity Detail Author Start: 02-13-2029 Lipid panel Lipid Screening [facility] Start: 10-31-2028 Lipid panel Lipid Screening [facility] Start: 02-13-2027 [facility] Start: 10-31-2026 [facility] Start: 03-20-2026 Annual PCP Team Glass Laminating Operator starr Disease Visit Annual PCP Team Chronic Disease Visit [facility] Start: 02-16-2026 Annual PCP Team Glass Laminating Operator starr Disease Visit Annual PCP Team Chronic Disease Visit [facility] Start: 01-30-2026 Annual PCP Team Glass Laminating Operator starr Disease Visit Annual PCP Team Chronic Disease Visit [facility] Start: 01-15-2026 Lipid panel Lipid Screening [facility] Start: 01-15-2026 LIPID SCREEN LIPID SCREEN [facility] Start: 12-15-2025 Annual PCP Team Glass Laminating Operator starr Disease Visit Annual PCP Team Chronic Disease Visit [facility] Start: 11-22-2025 Annual PCP Team Glass Laminating Operator starr Disease Visit Annual PCP Team Chronic Disease Visit [facility] Start: 05-25-2025 Hemoglobin A1c measurement HbA1C [facility] Start: 04-12-2025 End: 04-12-2025 ambulatory 04/12/2025 9:40 AM EDT Formerly [facility] [address] [place], [place] [id number] Cristian Adame MD [address] [place] [address] 8 week folllow up for pain medication [facility] Comment on above: 8 week folllow up fo r pain medication Start: 03-20-2025 End: 03-20-2025 Patient encounter procedure 03/20/2025 1:40 PM EDT Office Visit [facility] [address] [place] [address] Gilda Noonan APRN.MANUFACTURING LEADER [address] [place] [address] Sore throat. See TE 03/19 [facility] Comment on above: Sore throat. See TE 03/19 Start: 03-12-2025 Influenza vaccination C [facility] Start: 03-08-2025 [facility] Start: 03-01-2025 [facility] Start: 02-26-2025 End: 02-26-2025 Patient encounter procedure 02/26/2025 3:40 PM EDT Office Visit [facility] [address] [place] [address] Cristian Adame MD [address] [place] [address] 3 month follow up [facility] Comment on above: 3 month follow up Start: 02-20-2025 Anesthesia access ce ntral venous circulation ANESTH VASCULAR ACCESS [facility] Start: 02-20-2025 Insj tunneled ctr va d w/subq port age 3 yr/> INSERT TUNNELED CV CATH [facility] Start: 02-20-2025 Patient discharge [facility] Start: 02-13-2025 Anxiety Screening Anxiety Screening [facility] Start: 02-13-2025 Hepatitis B surface antibody level LDL Cholesterol [facility] Start: 02-12-2025 CBC W Auto Different ial panel - Blood [facility] Start: 02-12-2025 Comprehensive metabo lic 2000 panel - Serum or Plasma [facility] Start: 02-12-2025 Lactate dehydrogenas e measurement [facility] Start: 02-12-2025 Magnesium measurement W [facility] Start: 02-12-2025 Serum inorganic phos phate measurement [facility] Start: 02-12-2025 [facility] Start: 01-30-2025 End: 05-01-2025 Urinalysis complete panel - Urine URINALYSIS (WITH MICROSCOPIC) WITH CULTURE IF INDICATED Lab Routine Dysuria Expected: 01/30/2025, Expires: 05/01/2025 [facility] Work Phone: Comment on above: Expected: 01/30/2025 , Expires: 05/01/2025 Start: 01-24-2025 End: 01-24-2025 Patient encounter procedure 01/24/2025 4:20 PM EDT Office Visit [facility] [address] [place], [place] [id number] Cristian Adame MD [address] [place], [place] [id number] 6 week follow up [facility] Comment on above: 6 week follow up Start: 01-18-2025 End: 04-19-2025 CBC W Auto Differential panel - Blood COMPLETE BLOOD COUNT AND DIFFERENTIAL Lab Routine Anemia, unspecified type Expected: 01/18/2025, Expires: 04/19/2025 [facility] Comment on above: Expected: 01/18/2025 , Expires: 04/19/2025 Start: 01-18-2025 End: 04-19-2025 Ferritin [Mass/volume] in Serum or Plasma FERRITIN Lab Routine Anemia, unspecified type Expected: 01/18/2025, Expires: 04/19/2025 [facility] Comment on above: Expected: 01/18/2025 , Expires: 04/19/2025 Start: 01-18-2025 End: 04-19-2025 Folate [Mass/volume] in Serum or Plasma FOLATE, SERUM Lab Routine Anemia, unspecified type Folic acid deficiency Expected: 01/18/2025, Expires: 04/19/2025 [facility] Comment on above: Expected: 01/18/2025 , Expires: 04/19/2025 Start: 01-18-2025 End: 04-19-2025 Iron and Iron binding capacity panel - Serum or Plasma IRON AND TIBC Lab Routine Anemia, unspecified type Expected: 01/18/2025, Expires: 04/19/2025 [facility] Comment on above: Expected: 01/18/2025 , Expires: 04/19/2025 Start: 01-04-2025 CORE NDL BX LNG/MED PERQ CORE NDL BX LNG/MED PERQ [facility] Start: 01-04-2025 Catheterization of vein [facility] Start: 01-04-2025 Following clinical pathway protocol [facility] Start: 01-04-2025 Oxygen therapy [facility] Start: 01-04-2025 Patient discharge [facility] Start: 01-04-2025 Vital signs measurements [facility] Start: 12-18-2024 End: 12-18-2025 Cobalamin (Vitamin B12) [Mass/volume] in Serum or Plasma [facility] Work Phone: Comment on above: Expected: 12/18/2024 , Expires: 12/18/2025 Start: 12-18-2024 End: 12-18-2025 Folate [Mass/volume] in Serum or Plasma [facility] Comment on above: Expected: 12/18/2024 , Expires: 12/18/2025 Start: 12-15-2024 End: 03-16-2025 Bacteria identified in Urine by Culture BACTERIAL CULTURE, URINE Microbiology Routine Gross hematuria Expected: 12/15/2024, Expires: 03/16/2025 [facility] Comment on above: Expected: 12/15/2024 , Expires: 03/16/2025 Start: 12-15-2024 End: 03-16-2025 C reactive protein [Mass/volume] in Serum or Plasma [facility] Comment on above: Expected: 12/15/2024 , Expires: 03/16/2025 Start: 12-15-2024 End: 03-16-2025 CBC W Auto Differential panel - Blood [facility] Work Phone: Comment on above: Expected: 12/15/2024 , Expires: 03/16/2025 Start: 12-15-2024 End: 03-16-2025 Comprehensive metabolic 2000 panel - Serum or Plasma [facility] Comment on above: Expected: 12/15/2024 , Expires: 03/16/2025 Start: 12-15-2024 End: 03-16-2025 Erythrocyte sedimentation rate [facility] Comment on above: Expected: 12/15/2024 , Expires: 03/16/2025 Start: 12-15-2024 End: 03-16-2025 Lactate dehydrogenase [Enzymatic activity/volume] in Serum or Plasma [facility] Comment on above: Expected: 12/15/2024 , Expires: 03/16/2025 Start: 12-15-2024 End: 03-16-2025 Thyrotropin [Units/volume] in Serum or Plasma [facility] Comment on above: Expected: 12/15/2024 , Expires: 03/16/2025 Start: 12-15-2024 End: 03-16-2025 Urinalysis complete panel - Urine URINALYSIS, WITH MICROSCOPIC Lab Routine Gross hematuria Expected: 12/15/2024, Expires: 03/16/2025 [facility] Comment on above: Expected: 12/15/2024 , Expires: 03/16/2025 Start: 11-29-2024 End: 11-29-2024 Patient encounter procedure 11/29/2024 4:00 PM EDT Office Visit [facility] [address] [place] [address] Cristian Adame MD [address] [facility] [place] [address] Wellness Family [facility] Comment on above: Wellness Start: 11-22-2024 End: 02-21-2025 Hemoglobin A1c in Blood [facility] Work Phone: Comment on above: Expected: 11/22/2024 , Expires: 02/21/2025 Start: 11-12-2024 [facility] Start: 11-12-2024 Referral to oncologist [facility] Start: 11-01-2024 End: 11-01-2024 Patient encounter procedure 11/01/2024 10:40 AM EDT Office Visit Family [facility] [place] [address] [place] [address] Cristian Adame MD [address] [facility] [place] [address] Physical [facility] [place] Comment on above: Physical Start: 10-31-2024 Covid-19 Vaccine ( season) Covid-19 Vaccine ( season) [facility] Comment on above: Postponed from 03/12 (Declined at this time) Start: 10-31-2024 Hepatitis B Vaccine (1 of 3 - 19+ 3-dose series) Hepatitis B Vaccine (1 of 3 - 19+ 3-dose series) [facility] Comment on above: Postponed from 07/29 (Declined at this time) Start: 10-31-2024 Pneumococcal vaccination Pneum ococcal Vaccine (1 of 2 - PCV) [facility] Comment on above: Postponed from 07/29 (Declined at this time) Start: 10-31-2024 Shingrix Vaccine (1 of 2) Welch grix Vaccine (1 of 2) [facility] Comment on above: Postponed from 07/29 (Declined at this time) Start: 10-31-2024 Urine microalbumin profile DTaP,Tdap,Td Vaccine (1 - Tdap) [facility] Comment on above: Postponed from 03/07 (Insurance Coverage) Start: 08-22-2024 End: 08-22-2024 Patient encounter procedure 08/22/2024 4:20 PM EST Office Visit [facility] [place] [address] [place] [address] Cristian Adame MD [address] [place] [phone] 6 month follow up Family [facility] [place] Comment on above: 6 month follow up Start: 08-16-2024 Hemoglobin A1c measurement HbA1C [facility] Start: 07-12-2024 Medicare Advantage A nnual Wellness Visit Medicare Advantage Annual Wellness Visit [facility] Start: 05-05-2024 End: 05-05-2024 Patient encounter procedure 05/05/2024 3:20 PM EDT Office Visit Family [facility] [place] [address] [place] [address] Cristian Adame MD [address] [id number] 3 month follow up [facility] [place] Comment on above: 3 month follow up Start: 05-03-2024 End: 08-02-2024 Hemoglobin A1c in Blood HEMOGLOBIN A1C Lab Routine Controlled type 2 diabetes mellitus without complication, without long-term current use of insulin (HCC) Expected: 05/03/2024 (Approximate), Expires: 08/02/2024 [facility] Work Phone: Comment on above: Expected: 05/03/2024 (Approximate), Expires: 08/02/2024 Start: 05-03-2024 End: 08-02-2024 Lipid 1996 panel - Serum or Plasma LIPID PANEL BASIC Lab Routine Hyperlipidemia, mixed Expected: 05/03/2024 (Approximate), Expires: 08/02/2024 [facility] Comment on above: Expected: 05/03/2024 (Approximate), Expires: 08/02/2024 Start: 05-01-2024 End: 05-01-2024 Patient encounter procedure 05/01/2024 12:40 PM EDT Office Visit [facility] [place] [address] [place] [address] Gilda Noonan SUPERVISOR CELL MAINTENANCE.SPECIALTY TRIMMER [address] [place], [place] [phone] 6 month f/u DM/Cholesterol [facility] [place] Comment on above: 6 month f/u DM/Lucia sterol Start: 03-12-2024 Covid-19 Vaccine ( season) Covid-19 Vaccine ( season) [facility] Start: 03-12-2024 Influenza vaccination C [facility] Start: 02-28-2024 End: 02-28-2024 Patient encounter procedure 02/28/2024 1:30 PM EDT Office Visit Pulmonary Medicine [address] [place], [place] [id number] Noemí Roblero, JOSE.MANUFACTURING LEADER [address] [place] [address] Tobacco abuse [Z72.0] [facility] Comment on above: Tobacco abuse [Z72.0 ] Start: 02-14-2024 End: 02-14-2024 Patient encounter procedure 02/14/2024 3:00 PM EDT Office Visit [facility] [place] [address] [place] [address] Cristian Adame MD [address] [place] [address] Check up and review medications Family [facility] Comment on above: Check up and review medications Start: 02-14-2024 End: 05-15-2024 Hemoglobin A1c in Blood [facility] Comment on above: Expected: 02/14/2024 , Expires: 05/15/2024 Start: 02-14-2024 End: 05-15-2024 Lipid 1996 panel - Serum or Plasma [facility] Comment on above: Expected: 02/14/2024 , Expires: 05/15/2024 Start: 02-14-2024 End: 05-15-2024 PSA/PROSTATE SPECIFIC ANTIGEN SCREENING [facility] Work Phone: Comment on above: Expected: 02/14/2024 , Expires: 05/15/2024 Start: 01-16-2024 DIABETES SCREEN DIABETES SCREEN [facility] Start: 01-16-2024 Diabetes Screening Diabetes Screenin g [facility] Start: 11-29-2023 End: 11-29-2023 Patient encounter procedure 11/29/2023 9:00 AM EDT Office Visit Pulmonary Medicine [address] [place] [address] Noemí Roblero APRN.MANUFACTURING LEADER [address] [place] [address] Tobacco abuse [Z72.0] [facility] Comment on above: Tobacco abuse [Z72.0 ] Start: 11-01-2023 End: 01-31-2024 25-hydroxyvitamin D3 [Mass/volume] in Serum or Plasma [facility] Comment on above: Expected: 11/01/2023 , Expires: 01/31/2024 Start: 2023 Screening for malign ant neoplasm of lung Lung Cancer Screening [facility] Start: 2023 Shingrix Vaccine (1 of 2) Welch grix Vaccine (1 of 2) [facility] Start: 03-12-2023 Covid-19 Vaccine ( season) Covid-19 Vaccine ( season) [facility] Start: 12-30-2022 Diabetic foot examination Diabetic F oot Exam [facility] Start: 03-12-2022 Influenza vaccination C [facility] Start: 02-10-2022 End: 04-12-2022 Thyrotropin [Units/volume] in Serum or Plasma TSH BLD Lab Routine Paresthesia Expected: 02/10/2022, Expires: 04/12/2022 [facility] Work Phone: Comment on above: Expected: 02/10/2022 , Expires: 04/12/2022 Start: 12-30-2021 End: 03-01-2022 CBC W Auto Differential panel - Blood CBC + DIFF Lab Routine Paresthesia Expected: 12/30/2021, Expires: 03/01/2022 [facility] Work Phone: Comment on above: Expected: 12/30/2021 , Expires: 03/01/2022 Start: 12-30-2021 End: 03-01-2022 Cobalamin (Vitamin B12) [Mass/volume] in Serum or Plasma VITAMIN B12 BLOOD Lab Routine Paresthesia Expected: 12/30/2021, Expires: 03/01/2022 [facility] Work Phone: Comment on above: Expected: 12/30/2021 , Expires: 03/01/2022 Start: 12-30-2021 End: 03-01-2022 Comprehensive metabolic 2000 panel - Serum or Plasma COMP METABOLIC PANEL Lab Routine Paresthesia Expected: 12/30/2021, Expires: 03/01/2022 [facility] Work Phone: Comment on above: Expected: 12/30/2021 , Expires: 03/01/2022 Start: 12-30-2021 End: 03-01-2022 Folate [Mass/volume] in Serum or Plasma FOLATE SERUM Lab Routine Paresthesia Expected: 12/30/2021, Expires: 03/01/2022 [facility] Work Phone: Comment on above: Expected: 12/30/2021 , Expires: 03/01/2022 Start: 12-30-2021 End: 03-01-2022 PROTEIN ELECTROPHORESIS SERUM W/INTERP PROTEIN ELECTROPHORESIS SERUM W/INTERP Lab Routine Paresthesia Expected: 12/30/2021, Expires: 03/01/2022 [facility] Work Phone: Comment on above: Expected: 12/30/2021 , Expires: 03/01/2022 Start: 2018 COLOGUARD (FIT-DNA) COLOGUARD (FIT-D NA) [facility] Start: 2018 Colonoscopy COLONOSCOPY [facility] Start: 2018 COLORECTAL CANCER SCREENING COLORECTAL CANCER SCREENING [facility] Start: [address] COLONOGRAPHY [facility] Start: 2018 FECAL OCCULT BLOOD FECAL OCCULT BLOO D [facility] Start: 2018 Screening for malign ant neoplasm of colon [facility] Start: 2018 SIGMOIDOSCOPY SIGMOIDOSCOPY [facility] Start: 12-15-2016 End: 12-15-2016 Appointment Appointment [facility] Work Phone: Start: 12-02-2016 End: 12-02-2016 Appointment Appointment [facility] Work Phone: Start: 12-02-2016 End: 12-03-2016 Follow Up Appt 2 weeks Follow Up Appt 2 weeks [facility] Work Phone: Start: 03-07-2008 Urine microalbumin profile [facility] Start: 1992 Hepatitis B Vaccine (1 of 3 - 19+ 3-dose series) Hepatitis B Vaccine (1 of 3 - 19+ 3-dose series) [facility] Start: 1992 Pneumococcal Vaccine : 50+ (1 of 2 - PCV) Pneumococcal Vaccine: 50+ (1 of 2 - PCV) [facility] Start: 1991 Anxiety Screening Anxiety Screening [facility] Start: 1983 Glaucoma screening Dilated Retinal E xam [facility] Start: 1983 Hepatitis B screening Urine Al bumin:Creatinine Ratio [facility] Start: 1979 PNEUMOCOCCAL (1 - PCV) PNEUMOCOCCAL (1 - PCV) [facility] Start: 1979 Pneumococcal vaccination Pneum ococcal Vaccine (1 of 2 - PCV) [facility] Start: 1978 COVID-19 VACCINE (#1) COVID-19 VACCI NE (#1) [facility] Start: 01-26-1974 COVID-19 VACCINE (#1) COVID-19 VACCI NE (#1) [facility] Start: 1973 HEPATITIS B (1 of 3 - 3-dose series) HEPATITIS B (1 of 3 - 3-dose series) [facility] Alanine aminotransfe rase [Enzymatic activity/volume] in Serum or Plasma [facility] Albumin [Mass/volume ] in Serum or Plasma [facility] Alkaline phosphatase [Enzymatic activity/volume] in Serum or Plasma [facility] Anion gap in Serum o r Plasma [facility] Bilirubin, total measurement [facility] BUN/Creatinine ratio [facility] Calcium [Mass/volume ] in Serum or Plasma [facility] Carbon dioxide, tota l [Moles/volume] in Central venous blood [facility] COLOGUARD COLOGUARD Lab Ro utine Screening for colon cancer Ordered: 11/01/2023 [facility] Work Phone: Comment on above: Ordered: 11/01/2023 Creatinine [Mass/vol ume] in Serum or Plasma [facility] End: 12-30-2022 EMG(NEURO/NI) EMG(NEURO/NI) EMG Routine Paresthesia 1 Occurrences starting 12/30/2021 until 12/30/2022 [facility] Work Phone: Comment on above: 1 Occurrences starti ng 12/30/2021 until 12/30/2022 Erythrocyte mean corpuscular volume determination [facility] Exercise tolerance test [facility] Glucose [Mass/volume ] in Serum or Plasma [facility] Hematocrit [Volume Fraction] of Blood [facility] Hemoglobin [Mass/vol ume] in Blood [facility] Hemoglobin.gastroint estin al.lower [Presence] in Stool by Immunoassay IMMUNOCHEMICAL FECAL OCCULT BLOOD TEST Lab Routine Anemia, unspecified type Ordered: 12/19/2024 [facility] Work Phone: Comment on above: Ordered: 12/19/2024 Leukocytes [#/volume ] in Blood [facility] Mean corpuscular hemoglobin concentration determination [facility] Mean corpuscular hemoglobin determination [facility] Measurement of renal function [facility] Neutrophil count [facility] Neutrophil percent differential count [facility] Patient Education [facility] Work Phone: Patient referral [facility] Work Phone: Platelets [#/volume] in Blood [facility] Positron emission tomography with computed tomography [facility] Potassium measurement [facility] Red blood cell count [facility] Red cell distributio n width determination [facility] Serum chloride measurement [facility] Sodium measurement [facility] Total protein measurement [facility] TOXICOLOGY SCREEN, ROUTINE URINE TOXICOLOGY SCREEN, ROUTINE URINE Lab Routine Medication monitoring encounter 12/15/2024 3:10 PM EDT [facility] Urea nitrogen [Mass/volume] in Serum or Plasma [facility] Immunizations Immunization Date Immunization Notes Care Provider Anel briones 05-27-2018 influenza virus vacc ine, unspecified formulation Cristian Adame MD Work Phone: [facility] 03-06-2008 tetanus and diphther ia toxoids, adsorbed, preservative free, for adult use (2 Lf of tetanus toxoid and 2 Lf of diphtheria toxoid) Cristian Adame MD Work Phone: [facility] Payers Date Payer Category Payer Medicaid [id number] 2024 Unknown 2024 Self-pay 2014 Medicaid [id number] 2014 Medicare [id number] 2014 Medicare UHC MEDICARE [facility] MEDICARE [id number] 2014-Present [phone] [address] [place] [address] Medicare [id number] 2014 Medicare (Managed Care) [facility] MEDICARE [id number] 2014 Unknown [id number] Medicare [id number] Unknown [id number]. 462 Unknown [id number]. 462 Unknown [id number] [id number]. 462 Unknown [id number] [id number]. 462 Unknown [id number] [id number]. 462 Unknown [id number] [id number]. 462 Unknown [id number] [id number]. 462 Unknown [id number] [id number]. 462 Unknown [id number] [id number]. 462 Unknown [id number] [id number]. 462 Unknown [id number] [id number]. 462 Unknown [id number] [id number]. 462 Unknown [id number] [id number]. 462 Unknown [id number] [id number]. 462 Unknown [id number]. 462 Social History Date Type Detail Facility Start: 07-27-2011 End: 11-22-2024 Tobacco smoking status WAIS Smokes tobacco daily [facility] History of tobacco use Cigarette Smoker C [facility] Start: 12-30-2021 End: 03-20-2025 Alcohol intake Current drinker of alcohol (finding) [facility] Start: 1975 Sex Assigned At Not on file [facility] Start: 07-27-2011 End: 06-08-2023 Cigarettes smoked current (pack per day) - Reported 1 [facility] Work Phone: Start: 07-27-2011 End: 11-22-2024 Tobacco use and exposure Smokeless tobacco non-user [facility] Start: 02-04-2022 End: 06-08-2023 Tobacco use panel [facility] Work Phone: Start: 06-12-2012 Adult Depression Screening Assessment 0 [facility] Work Phone: Start: 04-01-2019 Tobacco Use Tobacco Use [facility] Start: 1975 Sex Assigned At Male W [facility] Start: 01-18-2025 End: 02-15-2025 Tobacco smoking status WAIS Ex-smoker (finding) [facility] Medical Equipment Procedure Code Equipment Code Equipment Origin al Text Equipment Identifier Dates Insertion, vascular access port ([id number]) Vascular port/catheter [id number] FDA Start: 02-20-2025 Test blood sugar(s) once daily. Dx: DM type II. Insulin: No [id number] Start: 02-05-2025 Use with blood glucose test once daily [id number] Start: 02-05-2025 Goals Date Patient Goal Desired Activity /State Functional Status Date Assessment Result Facility 11-12-2014 Are you deaf, or do you have serious difficulty hearing No 11/12/2014 2:07 PM EDT Sepideh Pires LPN No [facility] 11-12-2014 Are you blind, or do you have serious difficulty seeing, even when wearing glasses No 11/12/2014 2:07 PM EDT Sepideh Pires LPN No [facility] 11-12-2014 Do you have serious difficulty walking or climbing stairs No 11/12/2014 2:07 PM EDT Sepideh Pires LPN No [facility] 11-12-2014 Do you have difficul ty dressing or bathing No 11/12/2014 2:07 PM EDT Sepideh Pires LPN No [facility] 11-12-2014 Because of a physica l, mental, or emotional condition, do you have difficulty doing errands alone such as visiting a physician's office or shopping No 11/12/2014 2:07 PM EDT Sepideh Pires LPN No [facility] Mental Status Date Assessment Result Facility 02-20-2025 Cognitive function Voice/Name [facility] Work Phone: 01-04-2025 Cognitive function Awake;Alert;Appropriat e [facility] Work Phone: 11-12-2014 Because of a physica l, mental, or emotional condition, do you have serious difficulty concentrating, remembering, or making decisions No 11/12/2014 2:07 PM EDT Sepideh Pires LPN No [facility] Clinical Notes 05-08-2011 to 03-21-2025 Telephone Encounter - Ghada Salazar MSW - 03/21/2025 9:25 AM EDTTelephone Encounter - Ghada Salazar FLAP CURER - 03/21/2025 9:25 AM EDTPatient Instructions Note Date & Type Note Facility 03-21-2025 Telephone encount er Note Sw and patient discussed home care waiver program through [employer] and Medicaid. Sw provided patient with home care waiver number [phone]. Patient notes that he will call and see about requesting home care waiver services. Sw will call patient back in a couple of weeks to see what patient learned from [place] [employer] and intermediate frame tender services and supports. [facility] 03-21-2025 Miscellaneous Notes Formattin g of this note might be different from the original. Sw and patient discussed home care waiver program through [facility] and Medicaid. Sw provided patient with home care waiver number [phone]. Patient notes that he will call and see about requesting home care waiver services. Sw will call patient back in a couple of weeks to see what patient learned from [facility] and intermediate frame tender services and supports. documented in this encounter [facility] 03-20-2025 Instructions Gilda Noonan APRN.CNP - 03/20/2025 2:02 PM EDT - Start the liquid form of amoxicillin 10 ml 3 x day for 10 days as prescribed for your throat infection. - Gargle with warm salt water several times a day to help ease throat discomfort. - scaffold worker to call you about home health aide documented in this encounter [facility] 03-20-2025 History of Presen t illness Narrative This is a 49 year old male who presents today with: Patient presents with: Acute Visit: Sore throat and cough HISTORY OF PRESENT ILLNESS: Hyun Elias is a 49 year old male. Patient presents with: Acute Visit: Sore throat and cough The patient is a 49-year-old male presenting for evaluation of a several-week history of sore throat with odynophagia, persistent dyspnea, and cough with wheezing. Sore Throat: - Onset: Several weeks ago. - Dysphagia, even with water. - Hyun denies headaches, fever, or chills. - Allergies to Bactrim and Augmentin. Rhinorrhea: - Intermittent rhinorrhea. Dyspnea: - Hyun reports dyspnea "all the time." - Coughing; possible wheezing, though not noticed by Hyun. PAST MEDICAL HISTORY: PAST MEDICAL HISTORY Diagnosis [...] [Sulfamethoxazole] MEDICATIONS Current Outpatient Medications Medication Sig oxyCODONE IR (ROXICODONE) 5 mg immediate release tablet Take 1-2 tablets by mouth every 6 hours as needed for pain for up to 14 days. ondansetron orally disintegrating (ZOFRAN ODT) 4 mg disintegrating tablet Take 1 tablet by mouth every 8 hours as needed for nausea/vomiting. metFORMIN ER (GLUCOPHAGE XR) 500 mg 24 hr tablet Take 2 tablets by mouth once daily. RABEprazole (ACIPHEX) 20 mg tablet Take 1 tablet by mouth once daily. naloxone 4 mg/actuation nasal spray (NARCAN) Use 1 spray in one nostril as needed for overdose. May repeat every 2 to 3 min in alternating nostrils until medical assistance is available (Patient not taking: Reported on 03/20/2025) blood sugar diagnostic (BLOOD GLUCOSE TEST) test strip Test blood sugar(s) once daily. Dx: DM type II. Insulin: No Lancets Use with blood glucose test once daily No current facility-administered medications for this visit. FAMILY HISTORY Problem Relation Age of Onset Diabetes Mother COPD Mother Cancer Maternal Grandfather SOCIAL HISTORY[1] REVIEW OF SYSTEMS Constitutional: (+) cold intolerance, (-) fever, (-) chills Head: (-) headache Ears/Nose/Mouth/Throat: (+) sore throat, (+) rhinorrhea, (+) dysphagia, (+) chapped lips, (-) ear pain, (-) ear pressure Respiratory: (+) shortness of breath, (+) cough, (+) wheezing Gastrointestinal: (-) nausea, (-) vomiting Endocrine: (+) polydipsia EXAM: BP 100/58 Pulse (!) 124 Temp 36.8 C (98.2 F) (Left Tympanic) Wt 53.5 kg (118 lb) SpO2 96% BMI 16.93 kg/m PHYSICAL EXAM: GENERAL: Very thin, frail, weak SKIN: Unremarkable, no rash or skin lesions. Dusky. HEAD: Normocephalic. EARS: External ears normal, right canal blocked with cerumen, left canal clear, TM left normal. NOSE/SINUSES: Nares normal. Right side with polyp. Septum midline. Clear fluid noted. OROPHARYNX: Lips chapped, mucosa and tongue pale. Oropharynx pale, no erythema noted. NECK: Supple, no lymphadenopathy, normal thyroid, no carotid bruits. LUNGS: Diminished breath sounds bilaterally- worst left middle- + egophony left middle and bronchial, no wheezes/rhonchi/rales. HEART: Faster rate and rhythm, no murmurs. No ectopy. EXTREMITIES: Normal, no deformities, pale skin discoloration, no edema. NEURO: Awake, alert and oriented x3, very weak, normal gait, no involuntary motions. LABS: Labs: - Renal function: Normal ASSESSMENT/PLAN: 1. Acute pharyngitis, unspecified etiology - ICD9: 462, ICD10: J02.9 (primary diagnosis) - suspect viral but possible bacterial and pt. Chronically ill with lung cancer - AMOXICILLIN 250 MG/5 ML ORAL SUSPENSION- 500 mg 3 x day for 10 days 2. Abnormal lung sounds - ICD9: 786.7, ICD10: R09.89 Treat for possible pneumonia - AMOXICILLIN 250 MG/5 ML ORAL SUSPENSION 3. 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, unspecified laterality (HCC) - ICD9: 162.9, ICD10: C34.90 Consult social worker aide for ? Home care if eligible - PRIMARY CARE SOCIAL WORK CONSULT Discussed treatment plan and patient voices understanding. Patient's questions answered appropriately. Medications and potential side effects were discussed and patient voices understanding. Return to the office as scheduled or as needed for worsening/no improvement. Gilda Noonan, 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 [1] Social History Tobacco Use Smoking status: Every Day Current packs/day: 1.00 Average packs/day: 1 pack/day for 24.0 years (24.0 ttl pk-yrs) Types: Cigarettes Smokeless tobacco: Never Vaping Use Vaping status: Never Used Substance Use Topics Alcohol use: Yes Drug use: Yes Frequency: 2.0 times per week Comment: Manti per patient documented in this encounter [facility] 03-19-2025 Telephone encount er Note Significant other (Trudy) calls to request appointment for patient for sore throat. Trudy reports no fever, redness to the throat, difficulty swallowing, headache, or increased difficulty breathing. She reports that she looked in the back of patients throat and wasn't sure if she saw a small white patch and would just like some one to take a look. Per nurse triage, patient should be seen within 24 hours but Trudy has to arrange transportation so requesting tomorrow afternoon. Scheduled at 140 pm per request. Marshall Tran RN [facility] 03-19-2025 Miscellaneous Notes Formattin g of this note might be different from the original. Significant other (Trudy) calls to request appointment for patient for sore throat. Trudy reports no fever, redness to the throat, difficulty swallowing, headache, or increased difficulty breathing. She reports that she looked in the back of patients throat and wasn't sure if she saw a small white patch and would just like some one to take a look. Per nurse triage, patient should be seen within 24 hours but Trudy has to arrange transportation so requesting tomorrow afternoon. Scheduled at 140 pm per request. Marshall Tran RN documented in this encounter [facility] 03-08-2025 Progress note [facility] 03-08-2025 Progress note Note Date/Time March 08, 2025 9:34am [place] [address] [place] [address] OFFICE VISIT Date of Service: 03/08/25 0859 MR#: [id number] Acct: [id number] Name: HYUN ELIAS Rep #: [id number] : 1975 From: Regino Burleson MD Age/Sex: 49/M Location: [facility] Status: Signed HPI Subjective Date of Service 03/08/25 Chief Complaint NSCLC on treatment History of Present Illness 49-year-old man presented to the ER with abdominal pain, CT of the chest, on 11/12/2024 showed multiple bilateral pulmonary nodules with mediastinal and hilar adenopathy, hypodensity in the liver with large necrotic retroperitoneal and gastric lymphadenopathy compatible with hepatic and marielena metastatic disease. Abdomen and pelvis. He had a CT-guided biopsy on 01/04/2025. 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 02/06/2025 PET/CT showed marked interval worsening of bilateral pulmonary, bilateral hilar, mediastinal, pancreatic body, left retroperitoneal, hepatic, and osseous malignancy/metastatic disease. Pain being managed by PCP. He was diagnosed with Squamous cell type, stage IV(cTx N3 M1) Lungs, bones, abdominal nodes, pancreas, Liver. Started Keytruda, Carboplatin and Abraxane on 03/01/2025. Comes for C1D8 Abraxane. Had dizzines after D1 but now fine. [facility] Medical History Constipation Encounter for antineoplastic chemotherapy and immunotherapy Hyponatremia Wears dentures Wears glasses Back pain Gastric reflux Former smoker History of stress test Cancer Encounter for education Surgical History Previous back surgery History of hernia surgery History of appendectomy History of surgery on arm Family History Mother Diabetes Cancer Father Diabetes Grandmother Cancer Social History Smoking Status: Former smoker quit date: 01/07/25 second hand exposure: Yes alcohol intake: never substance use type: does not use Intake Vital Signs 02/12/25 14:31 03/08/25 09:01 Height 5 ft 9 in 5 ft 9 in Weight: 58.088 kg BMI 18.8 BP 105/77 Blood Pressure Location Lt brachial Position Sitting Respiration 18 Pulse 120 H Pulse Source Monitor Temp 98.5 F Temperature Source Temporal Artery Pulse Oximetry (%) 94 Oxygen Delivery Method room air Intake Is patient in pain?: No Allergies sulfamethoxazole (From Bactrim) Allergy (Verified 03/08/25 09:04) Unknown trimethoprim (From Bactrim) Allergy (Verified 03/08/25 09:04) Unknown amoxicillin trihydrate (From Augmentin) Adverse Reaction (Verified 03/08/25 09:04) Nausea potassium clavulanate (From Augmentin) Adverse Reaction (Verified 03/08/25 09:04) Nausea Medications ?Medication ?Instructions ?Recorded ?Confirmed ?Type folic acid 1 mg tablet 1 mg PO QDAY 01/18/25 History metformin 500 mg tablet,extended 1,000 mg PO QDAY 11/0303/08/25 History release 24 hr dexamethasone 4 mg tablet 8 mg (2 x 4 mg) PO .COMPLEX #30 02/13/25 03/08/25 Rx tabs lidocaine-prilocaine 2.5 %-2.5 % 1 applic topical ONCE PRN port 02/13/25 03/08/25 Rx topical cream access 30 days #30 grams ondansetron 8 mg disintegrating 8 mg PO Q8H PRN nausea and 03/01/25 03/08/25 Rx tablet vomiting #30 tabs oxycodone 5 mg tablet 5 - 10 mg PO Q6H PRN pain 03/08/25 History polyethylene glycol 3350 17 4 g PO ONCE #510 grams 03/08/25 Rx gram/dose oral powder (Miralax) sodium chloride 1,000 mg soluble 1,000 mg PO QDAY #30 tabs 03/01/25 03/08/25 Rx tablet Nebulizer machine #1 ea 03/07/25 03/08/25 Rx hydroxyzine pamoate 25 mg capsule 25 mg PO ONCE 03/08/25 History ipratropium 0.5 mg-albuterol 3 mg 3 ml inhalation Q4H PRN SOB &/OR 03/07/25 03/08/25 Rx (2.5 mg base)/3 mL nebulization WHEEZING #180 mL soln naloxone 4 mg/actuation nasal spray intranasal 5 03/08/25 History Central Venous Access Central Venous Access: Yes Port/PICC: Port Exam Physical Exam Narrative 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 Const alert, oriented x3 and no apparent distress General Appearance: ill appearing Positive for chronically and frail Nutritional Appearance: cachectic HEENT normocephalic Eyes Eyes Narrative: Blind Neck supple Lymph Lymphatic: no lymphadenopathy noted Chest Chest Narrative: _ Port R IC area. Chest: vascular access Resp normal respiratory effort Auscultation: diminished lung sounds Cardio regular rate, regular rhythm, S1 normal heart sound and S2 normal heart sound GI soft to palpation, non-tender and non-distended Auscultation: normoactive bowel sounds Back/Spine no CVA tenderness and no thoracic nor lumbar tenderness Extremity no clubbing, cyanosis or edema Skin no rashes or lesions noted Neuro oriented x3, CN's II-XII intact bilaterally and moves all extremities Neuro Narrative: Walking with a cancer Psych mental status grossly normal Coding Level of Care Code Off vis,est,level 4 Exam Problem Focused Diagnoses 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 C34.31 NSCLC metastatic to bone C34.90; C79.51 NSCLC metastatic to liver C34.90; C78.7 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 C34.90; C78.1 Encounter for antineoplastic chemotherapy and immunotherapy Z51.11; Z51.12 Assessment and Plan Assessment and Plan (1) 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 Started Keytruda, Carboplatin and Abraxane on 03/01/2025. Comes for C1D8 Abraxane. Counts reviewed, OK for therapy. Plan: To proceed with D8 Abraxane today, D15 next week. (2) NSCLC metastatic to bone: Status: Chronic Plan: To proceed with C1D8 Abraxane today, D15 next week. (3) NSCLC metastatic to liver: Status: Chronic (4) 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: Status: Acute Plan: To proceed with Abraxane D8 today, D15 next week. (5) Encounter for antineoplastic chemotherapy and immunotherapy: Status: Acute Plan: To proceed with C1D8 Abraxane today and D15 next week. Plan Details Follow Up: 2 Weeks 03/08/25 0934 <Electronically signed by Regino Julian> Date _ Regino Burleson MD Cosigner Signature: Date (if applicable) CC: Dr. Cristian Adame MD ~ [facility] Work Phone: 1(443) 503-334508-21-2025 Telephone encounter Note* Telephone Encounter - Anna Anton LPN - 03/01/2025 12:19 PM EDT The patient has been identified by name and date of : Yes Caregiver verified no other encounters exist for this prescription request: Yes Caregiver confirmed with patient/requestor that no other refills are due, in the near future, with this provider at this time: Yes The last office visit in the department: 02/16/2025 Does the patient have a future office visit with this provider/department: No no future appt scheduled Requested Prescriptions Pending Prescriptions Disp Refills oxyCODONE IR (ROXICODONE) 5 mg immediate release tablet 56 tablet 0 Sig: Take 1-2 tablets by mouth every 6 hours as needed for pain for up to 14 days. patient zofran rx was changed to 8 mg per Oncologist, new rx sent to the pharmacy Anna Anton LPN March 01, 2025 12:19 PM [facility]08-21-2025 Miscellaneous Notes* Telephone Encounter - Anna Anton LPN - 03/01/2025 12:19 PM EDT The patient has been identified by name and date of : Yes Caregiver verified no other encounters exist for this prescription request: Yes Caregiver confirmed with patient/requestor that no other refills are due, in the near future, with this provider at this time: Yes The last office visit in the department: 02/16/2025 Does the patient have a future office visit with this provider/department: No no future appt scheduled Requested Prescriptions Pending Prescriptions Disp Refills oxyCODONE IR (ROXICODONE) 5 mg immediate release tablet 56 tablet 0 Sig: Take 1-2 tablets by mouth every 6 hours as needed for pain for up to 14 days. patient zofran rx was changed to 8 mg per Oncologist, new rx sent to the pharmacy Anna Anton LPN March 01, 2025 12:19 PM [facility] Consult note Author Ana Viramontes [facility] Note Date/Time February 20, 2025 10 :15am [facility] Medical Records Department [address] [place] [address] Pre-Anesthesia Evaluation 02/20/25 1007 MR#: [id number] Acct: [id number] Name: HYUN ELIAS Rep #:[id number] : 1975 49 From: Ana grace CRNA PCP: Dr. Cristian Adame MD Status:REG S DC Y Race: C Location: [place] [address] ASA Classification* ASA Classification ASA Classification: 3 Assessment & Plan Anesthesia* Anesthesia Assessment Anesthesia Assessment: Discussed sedation and/or anesthesia options, risks, benefits, and alternatives with patient/parents/legal guardian/POA. Questions invited. The patient/parents/legal guardian/POA seems to understand and agrees to proceedwith anesthesia plan. Reviewed the physical assessment, medical history, allergy history and patient home medications list prior to surgery/procedure/anesthetic and documented any changes. Performed airway and anesthesia risk assessments. Procedural Plan Add'l anesthesia plan details: Dr. Mane aware of lab values- OK to proceed with MAC Anesthesia Type Anesthesia Type: MAC History Source History Obtained from:: Patient and Chart Anesthesia Focused Assessment* Temperature: 98.3 F Pulse Rate: 107 Blood Pressure: 98/73 Respiratory Rate: 18 Pulse Ox: 93 Oxygen Delivery Method: Room Air Airway Assessment Mouth opens: >3 cm Mallampati Score: I Teeth Condition: Dentures (upper and lower out (at home)) Neck Range of motion (ROM): Full ROM Labs Anesthesia Preop lab: CBC WBC 9.7 K/mm3 (4.4-11.0) 02/12/25 15:48 02/12/25 RBC 4.01 M/mm3 (4.6-6.2) L 02/12/25 15:48 02/12/25 Hgb 10.4 g/dL (13.0-16.5) L 02/12/25 15:48 5 Hct 32.7 % (40-54) L 02/12/25 15:48 02/12/25 Plt Count 493 K/mm3 (150-450) H 02/12/25 15:48 02/12/25 CHEMISTRY Potassium 4.3 mmol/L (3.3-5.1) 02/12/25 15:48 02/12/25 Sodium 126 mmol/L (133-145) L 02/12/25 15:48 02/12/25 Magnesium 1.7 mg/dL (1.5-2.2) 02/12/25 15:48 02/12/25 Phosphorus 3.4 mg/dL (2.7-4.5) 02/12/25 15:48 02/12/25 BUN 11 mg/dL (4-19) 02/12/25 15:48 02/12/25 Creatinine 0.84 mg/dL (0.70-1.20) 02/12/25 15:48 02/12/25 Glucose 277 mg/dL (70-99) H 02/12/25 15:48 02/12/25 COAG PT 15.3 SECONDS (11.7-14.9) H 01/04/25 08:53 12/11 01/03 Pre-Assessment Diagnosis/Proposed Procedure Planned Operative Procedure(s): INSERTION VASCULAR PORT RIGHT POSSIBLE LEFT Anesthesia History 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 When Was Last Pacemaker Check QUESTION #4 FULL TEXT: You/Your Family Experience fever (hyperthermia) with Anesthesia Last Oral Intake Last Oral intake: Last Oral Intake NPO since 21:00 02/20/25 09:22 Meds taken in AM with sips of No 02/20/25 09:22 water? Meds patient instructed to take am of surgery PONV PONV - telephone station installer: PONV - telephone station installer Female No 02/15/25 15:09 HX of Motion Sickness No 02/15/25 15:09 HX of N/V After Surgery No 02/15/25 15:09 Non-Smoker Yes 02/15/25 15:09 Duration of Surgery greater No 02/15/25 15:09 than 60 minutes Number of Risk Factors 1 02/15/25 15:09 PONV Score Low Risk 02/15/25 15:09 Height & Weight Height & Weight: Anesthesia: Height & Weight Height 5 ft 9 in 02/20/25 09:22 Weight: 61 kg 02/20/25 09:22 Body Mass Index (BMI) 19.8 02/20/25 09:22 Respiratory Assessment Respiratory Assessment - telephone station installer: Respiratory Tract Infection Hx - telephone station installer Hx Respiratory Tract Infection No 02/15/25 15:09 STOP Sleep Apnea STOP Sleep Apnea - telephone station installer: STOP Sleep Apnea - telephone station installer Hx Hypertension No 02/15/25 15:09 Hx Sleep Apnea No 02/15/25 15:09 CPAP BIPAP Do you snore loudly (louder No 02/15/25 15:09 than talking or can be heard Do you often feel tired/ No 02/15/25 15:09 fatigued/ sleepy during daytime? Has anyone observed you stop No 02/15/25 15:09 breathing during sleep? STOP Results Negative 02/15/25 15:09 QUESTION #5 FULL TEXT : Do you snore loudly (louder than talking or can be heard through closed doors)? Tobacco Use History Tobacco Use History - telephone station installer: Tobacco Use History - telephone station installer Tobacco Use Smoking Status Former smoker 02/15/25 15:09 Hx Tobacco Use Yes 02/15/25 15:09 Years Smoking Packs Smoked per Day Smoking Cessation Date was Yes - quit smoking within 15 02/15/25 15:09 within the last 15 years years Hx Smoking Cessation Date Hx Smoking Cessation Counseling Hematologic Medial History Hematologic Hx - telephone station installer: Hematologic Medical Hx - bi data architect Hx of Blood Transfusion No 02/15/25 15:09 Hx of Transfusion in last 3 No 02/15/25 15:09 Months Date of Last Transfusion (if within last 3 months) Ever experience any problems No 02/15/25 15:09 with transfusion(s)? Specify any problems Hx of Preganancy in last 3 N/A 02/15/25 15:09 Months Nurse Filling Out Transfusion [id number] 02/15/25 15:09 & Questions: Date: 02/15/25 02/15/25 15:09 Time: 15:11 02/15/25 15:09 Patient unable to answer at this time (ie. confused, unrespo /Reproduction History /Reproductive History - telephone station installer: /Reproductive Hx- telephone station installer Hx Now Gestational Age (in weeks): EDC: Hx Hx Para Hx Section SAB Active Medications Active Medications: Current Medications Generic Name Dose Route Start Last Admin Trade Name Freq PRN Reason Stop Dose Admin Clindamycin Phosphate 900 mg in 50 mls @ 75 mls/hr 02/20/25 11:00 Cleocin IV 02/20/25 11:39 INTRAOP ONE Lactated Ringer's 1,000 mls @ 15 mls/hr 02/20/25 09:15 02/20/25 09:45 IV 15 mls/hr .Q48H JENSEN Administration PFSH Medical History (Updated 02/15/25 @ 15:17 by Jose Adorno) Wears dentures Wears glasses Back pain Gastric reflux Former smoker History of stress test Cancer Encounter for education Home Medications ?Medication ?Instructions ?Recorded ?Last Taken ?Type rabeprazole 20 mg tablet,delayed 20 mg PO DAILY 11/11/24 History release (AcipHex) oxycodone 5 mg tablet 5 mg PO Q6H PRN pain 3 days #12 11/12/24 Unknown Rx tabs folic acid 1 mg tablet 1 mg PO QDAY 01/18/25 Unknow n History ondansetron 4 mg disintegrating 4 mg PO Q8H PRN PRN Na usea 01/18/25 Unknown History tablet metformin 500 mg tablet,extended 1,000 mg PO QDAY 11/03 Unknown History release 24 hr dexamethasone 4 mg tablet 8 mg (2 x 4 mg) PO .COMPLEX #30 02/13/25 Unknown Rx tabs lidocaine-prilocaine 2.5 %-2.5 % 1 applic topical ONCE PRN port 02/13/25 Unknown Rx topical cream access 30 days #30 grams Allergy/AdvReac Type Severity Reaction Status Date / Time sulfamethoxazole (From Allergy Unknown Verified 02/20/25 09:22 Bactrim) trimethoprim (From Bactrim) Allergy Unknown Verified 02/20/25 09:22 amoxicillin trihydrate (From AdvReac Nausea Verified 02/20/25 09:22 Augmentin) potassium clavulanate (From AdvReac Nausea Verified 02/20/25 09:22 Augmentin) Family History Mother Diabetes Cancer Father Diabetes Grandmother Cancer Surgical History (Updated 02/15/25 @ 15:17 by Jose Adorno) Previous back surgery History of hernia surgery History of appendectomy History of surgery on arm Social History Smoking Status: Former smoker quit date: 01/07/25 second hand exposure: Yes alcohol intake: never substance use type: does not use Review of Systems (Anesthesia) ROS Narrative System reviewed and no additional complaints, except as documented. 02/20/25 1015 <Electronically signed by Ana graves CRNA> Date _ Ana Viramontes CRNA Cosigner Signature: Date CC: ~ Signed [facility] Work Phone: 1(955) 318-745008-12-2025 History and physical note Author Hernan Vincent [facility] Note Date/Time February 20, 2025 10 :05am [facility] Medical Records Department [address] [place] [address] History & Physical Exam 02/20/25 1005 MR#: [id number] Acct: [id number] Name: HYUN ELIAS Rep #:[id number] : 1975 49 From: Hernan guerrero MD PCP: Dr. Cristian Adame MD Status:REG S DC Location: [place] [address] History and Physical Date of Admission: 02/20/25 Intake Vital Signs 02/12/2514:31 02/14/2516:44 02/15/2514:11 Height 5 ft 9 in 5 ft 9 in 5 ft 9 in Weight: 138 lb BMI 20.3 BP 98/66 Blood Pressure Location Rt brachial Position Sitting Respiration 18 Pulse 112 H Pulse Source Monitor Temp 97.2 F L Temp Source Temporal Pulse Oximetry (%) 92 Oxygen Delivery Method room air Intake Visit Reasons: PORT PLACEMENT Chief Complaint: port placement Accompanied by: Is patient in pain?: Yes Allergies sulfamethoxazole (From Bactrim) Allergy (Verified 02/15/25 14:13) Unknowntrimethoprim (From Bactrim) Allergy (Verified 02/15/25 14:13) Unknownamoxicillin trihydrate (From Augmentin) Adverse Reaction (Verified 02/15/25 14:13) Nauseapotassium clavulanate (From Augmentin) Adverse Reaction (Verified 02/15/2514:13) Nausea Medications ?Medication ?Instructions ?Recorded ?Confirmed ?Type rabeprazole 20 mg tablet,delayed 20 mg PO DAILY 01/20/15 02/15/25 History release (AcipHex) oxycodone 5 mg tablet 5 mg PO Q6H PRN pain 3 days #12 11/12/24 02/15/25 Rx tabs folic acid 1 mg tablet 1 mg PO QDAY 01/18/25 02/15/25 History ondansetron 4 mg disintegrating 4 mg PO Q8H PRN PRN Nausea 01/18/25 08/02/02 History tablet metformin 500 mg tablet,extended 1,000 mg PO QDAY 02/12/25 02/15/25 Histo ry release 24 hr dexamethasone 4 mg tablet 8 mg (2 x 4 mg) PO .COMPLEX #30 02/13/25 02/15/25 Rx tabs lidocaine-prilocaine 2.5 %-2.5 % 1 applic topical ONCE PRN port 02/13/25 02/15/25 Rx topical cream access 30 days #30 grams [facility] Medical History Encounter for education Surgical History History of hernia surgery History of appendectomy History of surgery on arm Family History Mother Diabetes CancerFather DiabetesGrandmother Cancer Social History Smoking Status: Former smoker quit date: 01/07/25 second hand exposure: Yes alcohol intake: never substance use type: does not use HPI HPI HPI: Patient is a 49-year-old male here for port placement for lung cancer. ROS General General: Yes weight change and fatigue; No appetite, colon cancer, breast cancer or weakness Endo Endocrine: Yes diabetes mellitus; No thyroid disease, thyroid cancer, Hair loss, heat intolerance or cold intolerance Skin Skin: No rash or changing moles Musc Musculoskeletal: Yes back problems; No arthritis, rheumatoid arthritis, gout or joint pain Cardio Cardiovascular: Yes heart attack; No murmur, pacemaker, heart disease, atrial fibrillation, high blood pressure, heart stent, palpitations, shortness of breath with exertion or chest pain Psych Psychiatric: No depression, anxiety or hearing voices Resp Respiratory: Yes shortness of breath, No sleep apnea, Yes cough, No COPD, No asthma, No emphysema and No wheezing Gastro Gastrointestinal: Yes abdominal pain, No nausea or vomiting, No diarrhea, Yes constipation, No blood in stool, Yes acid reflux, No hemorrhoids, No ulcers, No gallbladder problem and No black,tarry stools [place] Hematologic: No blood thinners, No blood disorders, No bleeding, No anemia and No blood clots Neuro Neurologic: No numbness, No tingling and No weakness Exam Const General: cooperative Orientation: alert and oriented x3 HENMT Head: normal to inspection Neck Neck: normal visual inspection and full ROM Chest Chest palpation & inspection: normal inspection of the chest Resp Effort & Inspection: normal respiratory effort Auscultation: clear to auscultation bilaterally Cardio Rate: regular rate Rhythm: regular rhythm GI Inspection: non-distended Palpation: soft and nontender Skin General: no rashes or lesions noted Neuro General: patient alert and patient oriented x3 Extrem General: full ROM Psych Appearance: grossly normal Mental Status: mental status grossly normal Assessment and Plan Assessment and Plan (1) Encounter for adjustment and management of vascular access device: Status: Acute Plan: I discussed right chest port placement with the patient in detail. I discussed the procedure in detail as well as the risks of bleeding, infection, pneumothorax, line infection or DVT. Patient understands the risks and is willing to proceed. Hernan Vincent MD Pager: [facility] [address] [place] [address], [address] [place] [address] Office: I have examined the patient and the H&P has been reviewed. There are no clinicalchanges since date of exam. 02/20/25 1005 <Electronically signed by Hernan Vincent MD> Cosigner Signature (if applicable): CC: Dr. Hernan Vincent MD; Dr. Cristian Adame MD~ Signed [facility] Work Phone: 1(553) 233-826608-12-2025 Radiology Diagnostic study note [facility] Imaging Services [address] [place], [place] [id number] CXR for Line Placement MR#: [id number] Acct: [id number] Name: HYUN ELIAS Rep #: [id number] : 1975 M 49 From: Marlo Borden MD PCP: Dr. Cristian Adame MD Status: REG S DC Study:CXR for Line Placement Date of Exam: 02/20/25 Exam# [id number] Ordering Dr: Hernan Boyd MD PROCEDURE: CXR FOR LINE PLACEMENT 02/20/2025 REASON FOR EXAM: LINE PLACEMENT TECHNIQUE: Frontal view of the chest. COMPARISON: January 04, 2025 FINDINGS: Hardware: Right Port-A-Cath has its tip at the junction of the right atrium and superior vena cava.EKG leads are seen. Heart: Normal Lungs: Innumerable pulmonary nodules are shown bilaterally. No new consolidation or pleural effusion. No pneumothorax. Bones: Midthoracic vertebral augmentation. RAD/CXR for Line Placement IMPRESSION: Satisfactory position of the right port. No pneumothorax. Reading Location: [id number] CC: Dr. Hernan Vincent MD; Dr. Cristian Adame MD ~ Manager Behavior: Signed [facility]08-12-2025 Consult note [facility] Medical Records Department [address] [place] [address] Anesthesia Postop Eval I 02/20/25 1135 MR#: [id number] Acct: [id number] Name: HYUN ELIAS Rep #:[id number] : 1975 49 From: Ana grace MACHINE FUR CLEANER PCP: Dr. Cristian Adame MD Status:REG S DC Y Race: C Location: [place] [address] Anesthesia: Postop Eval I Current Vital Signs Temperature: 97.7 F Pulse Rate: 102 Blood Pressure: 92/70 Respiratory Rate: 16 Pulse Ox: 96 Oxygen Delivery Method: Room Air Assessment Airway patent: Yes Spontaneous unlabored respirations: Yes Mental status: Awake and Calm nausea: No Vomiting: No Anesthesia Complication: No Fluid Hydration Crystalloid volume administer (ml): 400 Total IV fluid infused: 400 Progress Note Anesthesia document: Postop Eval 1 completed: Yes 02/20/25 1136 ely MACHINE FUR CLEANER> Date _ Ana Viramontes CRNA Cosigner Signature: Date CC: ~ Signed [facility]08-12-2025 Discharge summary [facility] Medical Records Department [address] [place] [address] Instructions for Home/Discharge Instructions 02/20/25 1131 MR#: [id number] Acct: [id number] Name: HYUN ELIAS Rep #:[id number] : 1975 49 From: Hernan guerrero MD PCP: Dr. Cristian Adame MD Status:REG S DC Discharge Instructions Procedure Port-A-Cath Diet Discharge Diet: Light diet - advance as tolerated (Pain medication may cause nausea. You should typically eat light foods as you take your pain medication.) Activity Discharge Activity: Return to Normal Activity and May Shower (with your bandage in place in 1-2 days after surgery. DO NOT SHOWER WHEN YOUR PORT IS ACCESSED.) Additional Activity Instructions:: Alternate ibuprofen and Tylenol for pain control Dressing / Incision Call your doctor if your incision/area has: Continuous Slow Oozing, Sudden Increased Bleeding, Increased Pain/ Swelling, Increased Redness and Foul Smelling Discharge Call your doctor if you observe: Fever of 101 or Higher Remove Dressing in: 2 days Cleanse incision/area with: Soap & Water Follow Up Care Please Follow Up With: Hernan Vincent MD When: as needed [phone] Test Results: Test results from this visit will be discussed in further detail at your follow- up appointment, if applicable. Discharge Plan Admission Attending Provider: Hernan Vincent Primary Care Provider: Cristian Adame Instructions Print Language: Serbian Discharge Orders/Prescriptions Prescriptions: No Action folic acid 1 mg tablet 1 mg PO QDAY ondansetron 4 mg tablet,disintegrating 4 mg PO Q8H PRN PRN (Reason: Nausea) metformin 500 mg tablet extended release 24 hr 1,000 mg PO QDAY lidocaine-prilocaine 2.5-2.5 % cream 1 applic topical ONCE PRN (Reason: port access) 30 Days Qty: 30 2RF dexamethasone 4 mg tablet 8 mg PO .COMPLEX Qty: 30 2RF Rx Instructions: 8 mg orally ONLY on days 2 & 3 of chemotherapy cycle rabeprazole [AcipHex] 20 MG tablet 20 mg PO DAILY oxycodone 5 mg tablet 5 mg PO Q6H PRN (Reason: pain) 3 Days Qty: 12 0RF Referrals / Follow Up: Cristian Adame MD [Primary Care Provider] - Disposition Disposition (needs filled in before D/C Order can be placed): Home, Self Care 02/20/25 1132Antautumn Vincent MD CC: Dr. Cristian Adame MD ~ Signed [facility]08-12-2025 Procedure note [facility] Medical Records Department [address] [place] [address] Operative Report 02/20/25 1130 MR#: [id number] Acct: [id number] Name: HYUN ELIAS Rep #:[id number] : 1975 49 From: Hernan guerrero MD PCP: Dr. Cristian Adame MD Status:REG S DC Location: [place] [address] Operative Report (Standard) Operative Information Date of Procedure: 02/20/25 Pre-Operative Diagnosis: Need for vascular access for chemotherapy for lung cancer Post-Operative Diagnosis: Same Surgery/Procedure Performed: Ultrasound and fluoroscopy guided right chest port placement utilizingright IJ vibratory pile driver: No Type of Anesthesia: Local MAC RN Documented Start/Stop Times: Operation Date: 02/20/25 11:00 Case Time Into Pre-Op 02/20/25 09:13 Out of Pre-Op 02/20/25 10:53 Anesthesia Start 02/20/25 10:55 Into Room 02/20/25 10:55 Procedure Start 02/20/25 11:13 Procedure End 02/20/25 11:26 Procedure Start Time: 11:13 Procedure Stop Time: 11:26 Select all DRAINS/GRAFTS/IMPLANTS that apply: Implanted device Implanted device details: 8 Cam[place]onian PowerPort Estimated Blood Loss: 5 Specimen collected: No Description of surgery: After obtaining informed consent patient was brought back to the operating room MAC anesthesia was induced and the right chest and neck were prepped in normal sterile fashion. Ultrasound was used to evaluate both IJs and the right IJ was selected. Next, using a needle, the right IJ was accessed brando guidewire was passed on into the superior vena cava under fluoroscopy guidance. A small incision was made over the puncture site and the dilator introducer was placed over the guidewire. Next this was capped and the pocket was made for the port. 1% lidocaine with epinephrine was injected in the proposed port site. An incision was made with scalpel. Electrocautery was used to make a pocket under the skin and subcutaneous tissue. Hemostasis was obtained. Next, the catheter was tunneled up to the neck incision site and placed through the introducer. The peel-away introducer was removed and theposition of the catheter was confirmed on fluoroscopy. Next, the catheter was trimmed and attached to the port with the locking device. Interrupted 2-0 Vicryl sutures were used to anchor the port to t he chest wall and then the port was placed inside the pocket. The pocket was then flushed with saline and the port irrigated with saline. There was good blood return and the port flushed easily. Next, heparinwas injected into the port. The skin was closed with subcutaneous interrupted 3-0 Vicryl sutures. A single 3-0 Vicryl sutures placed under the skin at the neck incision site. Steri-Strips were placed as well as op sites. Patient tolerated procedure well, was taken to PACU in stable condition. Chest x-ray will be obtained. Surgical Findings: None Complications Complications: No Admit VTE Documentation VTE Mechan Device Prophylaxis: SCD's 02/20/25 1131 Cosigner Signature (if applicable): CC: Dr. Hernan Vincent MD; Dr. Cristian Adame MD~ Signed [facility]08-12-2025 Consult note [facility] Medical Records Department [address] [place] [address] Pre-Anesthesia Evaluation 02/20/25 1007 MR#: [id number] Acct: [id number] Name: HYUN ELIAS Rep #:[id number] : 1975 49 From: Ana grace CRNA PCP: Dr. Cristian Adame MD Status:REG S DC Y Race: C Location: [place] [address] ASA Classification* ASA Classification ASA Classification: 3 Assessment & Plan Anesthesia* Anesthesia Assessment Anesthesia Assessment: Discussed sedation and/or anesthesia options, risks, benefits, and alternatives with patient/parents/legal guardian/POA. Questions invited. The patient/parents/legal guardian/POA seems to understand and agrees to proceedwith anesthesia plan. Reviewed the physical assessment, medical history, allergy history and patient home medications list prior to surgery/procedure/anesthetic and documented any changes. Performed airway and anesthesia risk assessments. Procedural Plan Add'l anesthesia plan details: Dr. Mane aware of lab values- OK to proceed with MAC Anesthesia Type Anesthesia Type: MAC History Source History Obtained from:: Patient and Chart Anesthesia Focused Assessment* Temperature: 98.3 F Pulse Rate: 107 Blood Pressure: 98/73 Respiratory Rate: 18 Pulse Ox: 93 Oxygen Delivery Method: Room Air Airway Assessment Mouth opens: >3 cm Mallampati Score: I Teeth Condition: Dentures (upper and lower out (at home)) Neck Range of motion (ROM): Full ROM Labs Anesthesia Preop lab: CBC WBC 9.7 K/mm3 (4.4-11.0) 02/12/25 15:48 02/12/25 RBC 4.01 M/mm3 (4.6-6.2) L 02/12/25 15:48 02/12/25 Hgb 10.4 g/dL (13.0-16.5) L 02/12/25 15:48 5 Hct 32.7 % (40-54) L 02/12/25 15:48 02/12/25 Plt Count 493 K/mm3 (150-450) H 02/12/25 15:48 02/12/25 CHEMISTRY Potassium 4.3 mmol/L (3.3-5.1) 02/12/25 15:48 02/12/25 Sodium 126 mmol/L (133-145) L 02/12/25 15:48 02/12/25 Magnesium 1.7 mg/dL (1.5-2.2) 02/12/25 15:48 02/12/25 Phosphorus 3.4 mg/dL (2.7-4.5) 02/12/25 15:48 02/12/25 BUN 11 mg/dL (4-19) 02/12/25 15:48 02/12/25 Creatinine 0.84 mg/dL (0.70-1.20) 02/12/25 15:48 02/12/25 Glucose 277 mg/dL (70-99) H 02/12/25 15:48 02/12/25 COAG PT 15.3 SECONDS (11.7-14.9) H 01/04/25 08:53 06/01/03 Pre-Assessment Diagnosis/Proposed Procedure Planned Operative Procedure(s): INSERTION VASCULAR PORT RIGHT POSSIBLE LEFT Anesthesia History 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 When Was Last Pacemaker Check QUESTION #4 FULL TEXT: You/Your Family Experience fever (hyperthermia) with Anesthesia Last Oral Intake Last Oral intake: Last Oral Intake NPO since 21:00 02/20/25 09:22 Meds taken in AM with sips of No 02/20/25 09:22 water? Meds patient instructed to take am of surgery PONV PONV - telephone station installer: PONV - telephone station installer Female No 02/15/25 15:09 HX of Motion Sickness No 02/15/25 15:09 HX of N/V After Surgery No 02/15/25 15:09 Non-Smoker Yes 02/15/25 15:09 Duration of Surgery greater No 02/15/25 15:09 than 60 minutes Number of Risk Factors 1 02/15/25 15:09 PONV Score Low Risk 02/15/25 15:09 Height & Weight Height & Weight: Anesthesia: Height & Weight Height 5 ft 9 in 02/20/25 09:22 Weight: 61 kg 02/20/25 09:22 Body Mass Index (BMI) 19.8 02/20/25 09:22 Respiratory Assessment Respiratory Assessment - telephone station installer: Respiratory Tract Infection Hx - telephone station installer Hx Respiratory Tract Infection No 02/15/25 15:09 STOP Sleep Apnea STOP Sleep Apnea - telephone station installer: STOP Sleep Apnea - telephone station installer Hx Hypertension No 02/15/25 15:09 Hx Sleep Apnea No 02/15/25 15:09 CPAP BIPAP Do you snore loudly (louder No 02/15/25 15:09 than talking or can be heard Do you often feel tired/ No 02/15/25 15:09 fatigued/ sleepy during daytime? Has anyone observed you stop No 02/15/25 15:09 breathing during sleep? STOP Results Negative 02/15/25 15:09 QUESTION #5 FULL TEXT : Do you snore loudly (louder than talking or can be heard through closeddoors)? Tobacco Use History Tobacco Use History - telephone station installer: Tobacco Use History - telephone station installer Tobacco Use Smoking Status Former smoker 02/15/25 15:09 Hx Tobacco Use Yes 02/15/25 15:09 Years Smoking Packs Smoked per Day Smoking Cessation Date was Yes - quit smoking within 15 02/15/25 15:09 within the last 15 years years Hx Smoking Cessation Date Hx Smoking Cessation Counseling Hematologic Medial History Hematologic Hx - telephone station installer: Hematologic Medical Hx - bi data architect Hx of Blood Transfusion No 02/15/25 15:09 Hx of Transfusion in last 3 No 02/15/25 15:09 Months Date of Last Transfusion (if within last 3 months) Ever experience any problems No 02/15/25 15:09 with transfusion(s)? Specify any problems Hx of Preganancy in last 3 N/A 02/15/25 15:09 Months Nurse Filling Out Transfusion [id number] 02/15/25 15:09 & Questions: Date: 02/15/25 02/15/25 15:09 Time: 15:11 02/15/25 15:09 Patient unable to answer at this time (ie. confused, unrespo /Reproduction History /Reproductive History - telephone station installer: /Reproductive Hx- telephone station installer Hx Now Gestational Age (in weeks): EDC: Hx Hx Para Hx Section SAB Active Medications Active Medications: Current Medications Generic Name Dose Route Start Last Admin Trade Name Herminio PRN Reason Stop Dose Admin Clindamycin Phosphate 900 mg in 50 mls @ 75 mls/hr 02/20/25 11:00 Cleocin IV 02/20/25 11:39 INTRAOP ONE Lactated Ringer's 1,000 mls @ 15 mls/hr 02/20/25 09:15 02/20/25 09:45 IV 15 mls/hr .Q48H JENSEN Administration PFSH Medical History (Updated 02/15/25 @ 15:17 by Jose Adorno) Wears dentures Wears glasses Back pain Gastric reflux Former smoker History of stress test Cancer Encounter for education Home Medications ?Medication ?Instructions ?Recorded ?Last Taken ?Type rabeprazole 20 mg tablet,delayed 20 mg PO DAILY 11/11/24 History release (AcipHex) oxycodone 5 mg tablet 5 mg PO Q6H PRN pain 3 days #12 11/12/24 Unknown Rx tabs folic acid 1 mg tablet 1 mg PO QDAY 01/18/25 Unknow n History ondansetron 4 mg disintegrating 4 mg PO Q8H PRN PRN Na usea 01/18/25 Unknown History tablet metformin 500 mg tablet,extended 1,000 mg PO QDAY 11/03 Unknown History release 24 hr dexamethasone 4 mg tablet 8 mg (2 x 4 mg) PO .COMPLEX #30 02/13/25 Unknown Rx tabs lidocaine-prilocaine 2.5 %-2.5 % 1 applic topical ONCE PRN port 02/13/25 Unknown Rx topical cream access 30 days #30 grams Allergy/AdvReac Type Severity Reaction Status Date / Time sulfamethoxazole (From Allergy Unknown Verified 02/20/25 09:22 Bactrim) trimethoprim (From Bactrim) Allergy Unknown Verified 02/20/25 09:22 amoxicillin trihydrate (From AdvReac Nausea Verified 02/20/25 09:22 Augmentin) potassium clavulanate (From AdvReac Nausea Verified 02/20/25 09:22 Augmentin) Family History Mother Diabetes Cancer Father Diabetes Grandmother Cancer Surgical History (Updated 02/15/25 @ 15:17 by Jose Adorno) Previous back surgery History of hernia surgery History of appendectomy History of surgery on arm Social History Smoking Status: Former smoker quit date: 01/07/25 second hand exposure: Yes alcohol intake: never substance use type: does not use Review of Systems (Anesthesia) ROS Narrative System reviewed and no additional complaints, except as documented. 02/20/25 1015 ely MACHINE FUR CLEANER> Date _ Ana Viramontes CRNA Cosigner Signature: Date CC: ~ Signed [facility]08-12-2025 History and physical note [facility] Medical Records Department [address] [place] [address] History & Physical Exam 02/20/25 1005 MR#: [id number] Acct: [id number] Name: HYUN ELIAS Rep #:[id number] : 1975 49 From: Hernan guerrero MD PCP: Dr. Cristian Adame MD Status:REG S DC Location: [place] [address] History and Physical Date of Admission: 02/20/25 Intake Vital Signs 02/12/2514:31 02/14/2516:44 02/15/2514:11 Height 5 ft 9 in 5 ft 9 in 5 ft 9 in Weight: 138 lb BMI 20.3 BP 98/66 Blood Pressure Location Rt brachial Position Sitting Respiration 18 Pulse 112 H Pulse Source Monitor Temp 97.2 F L Temp Source Temporal Pulse Oximetry (%) 92 Oxygen Delivery Method room air Intake Visit Reasons: PORT PLACEMENT Chief Complaint: port placement Accompanied by: Is patient in pain?: Yes Allergies sulfamethoxazole (From Bactrim) Allergy (Verified 02/15/25 14:13) Unknowntrimethoprim (From Bactrim) Allergy (Verified 02/15/25 14:13) Unknownamoxicillin trihydrate (From Augmentin) Adverse Reaction (Verified 02/15/25 14:13) Nauseapotassium clavulanate (From Augmentin) Adverse Reaction (Verified 02/15/2514:13) Nausea Medications ?Medication ?Instructions ?Recorded ?Confirmed ?Type rabeprazole 20 mg tablet,delayed 20 mg PO DAILY 01/20/15 02/15/25 History release (AcipHex) oxycodone 5 mg tablet 5 mg PO Q6H PRN pain 3 days #12 11/12/24 02/15/25 Rx tabs folic acid 1 mg tablet 1 mg PO QDAY 01/18/25 02/15/25 History ondansetron 4 mg disintegrating 4 mg PO Q8H PRN PRN Nausea 07/10/02/02 History tablet metformin 500 mg tablet,extended 1,000 mg PO QDAY 02/12/25 02/15/25 Histo ry release 24 hr dexamethasone 4 mg tablet 8 mg (2 x 4 mg) PO .COMPLEX #30 02/13/25 02/15/25 Rx tabs lidocaine-prilocaine 2.5 %-2.5 % 1 applic topical ONCE PRN port 02/13/25 02/15/25 Rx topical cream access 30 days #30 grams [facility] Medical History Encounter for education Surgical History History of hernia surgery History of appendectomy History of surgery on arm Family History Mother Diabetes CancerFather DiabetesGrandmother Cancer Social History Smoking Status: Former smoker quit date: 01/07/25 second hand exposure: Yes alcohol intake: never substance use type: does not use HPI HPI HPI: Patient is a 49-year-old male here for port placement for lung cancer. ROS General General: Yes weight change and fatigue; No appetite, colon cancer, breast cancer or weakness Endo Endocrine: Yes diabetes mellitus; No thyroid disease, thyroid cancer, Hair loss, heat intolerance or cold intolerance Skin Skin: No rash or changing moles Musc Musculoskeletal: Yes back problems; No arthritis, rheumatoid arthritis, gout or joint pain Cardio Cardiovascular: Yes heart attack; No murmur, pacemaker, heart disease, atrial fibrillation, high blood pressure, heart stent, palpitations, shortness of breath with exertion or chest pain Psych Psychiatric: No depression, anxiety or hearing voices Resp Respiratory: Yes shortness of breath, No sleep apnea, Yes cough, No COPD, No asthma, No emphysema and No wheezing Gastro Gastrointestinal: Yes abdominal pain, No nausea or vomiting, No diarrhea, Yes constipation, No blood in stool, Yes acid reflux, No hemorrhoids, No ulcers, No gallbladder problem and No black,tarry stools Maverick Hematologic: No blood thinners, No blood disorders, No bleeding, No anemia and No blood clots Neuro Neurologic: No numbness, No tingling and No weakness Exam Const General: cooperative Orientation: alert and oriented x3 HENMT Head: normal to inspection Neck Neck: normal visual inspection and full ROM Chest Chest palpation & inspection: normal inspection of the chest Resp Effort & Inspection: normal respiratory effort Auscultation: clear to auscultation bilaterally Cardio Rate: regular rate Rhythm: regular rhythm GI Inspection: non-distended Palpation: soft and nontender Skin General: no rashes or lesions noted Neuro General: patient alert and patient oriented x3 Extrem General: full ROM Psych Appearance: grossly normal Mental Status: mental status grossly normal Assessment and Plan Assessment and Plan (1) Encounter for adjustment and management of vascular access device: Status: Acute Plan: I discussed right chest port placement with the patient in detail. I discussed the procedure in detail as well as the risks of bleeding, infection, pneumothorax, line infection or DVT. Patient understands the risks and is willing to proceed. Hernan Vincent MD Pager: [facility] [address] [place] [address], [address] [place] [address] Office: I have examined the patient and the H&P has been reviewed. There are no clinicalchanges since date of exam. 02/20/25 1005 Cosigner Signature (if applicable): CC: Dr. Hernan Vincent MD; Dr. Cristian Adame MD~ Signed [facility]08-12-2025 [facility] Medical Records Department [address] [place], [place] [id number] History Physical Exam 02/20/25 1005 MR#: [id number] Acct: [id number] Name: HYUN ELIAS Rep #: [id number] : 1975 49 From: Hernan Vincent MD PCP: Dr. Cristian Adame MD Status:[facility] Location: [place] [address] History and Physical Date of Admission: 02/20/25 Intake Vital Signs 02/12/2514:31 02/14/2516:44 02/15/2514:11 Height 5 ft 9 in 5 ft 9 in 5 ft 9 in Weight: 138 lb BMI 20.3 BP 98/66 Blood Pressure Location Rt brachial Position Sitting Respiration 18 Pulse 112 H Pulse Source Monitor Temp 97.2 F L Temp Source Temporal Pulse Oximetry (%) 92 Oxygen Delivery Method room air Intake Visit Reasons: PORT PLACEMENT Chief Complaint: port placement Accompanied by: Is patient in pain?: Yes Allergies sulfamethoxazole (From Bactrim) Allergy (Verified 02/15/25 14:13) Unknowntrimethoprim (From Bactrim) Allergy (Verified 02/15/25 14:13) Unknownamoxicillin trihydrate (From Augmentin) Adverse Reaction (Verified 02/15/25 14:13) Nauseapotassium clavulanate (From Augmentin) Adverse Reaction (Verified 02/15/25 14:13) Nausea Medications ???Medication ???Instructions ???Recorded ???Confirmed ???Type rabeprazole 20 mg tablet,delayed 20 mg PO DAILY 01/20/15 02/15/25 History release (AcipHex) oxycodone 5 mg tablet 5 mg PO Q6H PRN pain 3 days #12 11/12/24 02/15/25 Rx tabs folic acid 1 mg tablet 1 mg PO QDAY 01/18/25 02/15/25 History ondansetron 4 mg disintegrating 4 mg PO Q8H PRN PRN Nausea 01/18/25 02/15/25 Histo ry tablet metformin 500 mg tablet,extended 1,000 mg PO QDAY 02/12/25 02/15/25 History release 24 hr dexamethasone 4 mg tablet 8 mg (2 x 4 mg) PO .COMPLEX #30 02/13/25 02/15/25 Rx tabs lidocaine-prilocaine 2.5 %-2.5 % 1 applic topical ONCE PRN port 02/13/25 02/15/25 R x topical cream access 30 days #30 grams PFSH Medical History Encounter for education Surgical History History of hernia surgery History of appendectomy History of surgery on arm Family History Mother Diabetes CancerFather DiabetesGrandmother Cancer Social History Smoking Status: Former smoker quit date: 01/07/25 second hand exposure: Yes alcohol intake: never substance use type: does not use HPI HPI HPI: Patient is a 49-year-old male here for port placement for lung cancer. ROS General General: Yes weight change and fatigue; No appetite, colon cancer, breast cancer or weakness Endo Endocrine: Yes diabetes mellitus; No thyroid disease, thyroid cancer, Hair loss, heat intolerance or cold intolerance Skin Skin: No rash or changing moles Musc Musculoskeletal: Yes back problems; No arthritis, rheumatoid arthritis, gout or joint pain Cardio Cardiovascular: Yes heart attack; No murmur, pacemaker, heart disease, atrial fibrillation, high blood pressure, heart stent, palpitations, shortness of breath with exertion or chest pain Psych Psychiatric: No depression, anxiety or hearing voices Resp Respiratory: Yes shortness of breath, No sleep apnea, Yes cough, No COPD, No asthma, No emphysema and No wheezing Gastro Gastrointestinal: Yes abdominal pain, No nausea or vomiting, No diarrhea, Yes constipation, No blood in stool, Yes acid reflux, No hemorrhoids, No ulcers, No gallbladder problem and No black,tarry stools Maverick Hematologic: No blood thinners, No blood disorders, No bleeding, No anemia and No blood clots Neuro Neurologic: No numbness, No tingling and No weakness Exam Const General: cooperative Orientation: alert and oriented x3 HENDE Head: normal to inspection Neck Neck: normal visual inspection and full ROM Chest Chest palpation inspection: normal inspection of the chest Resp Effort Inspection: normal respiratory effort Auscultation: clear to auscultation bilaterally Cardio Rate: regular rate Rhythm: regular rhythm GI Inspection: non-distended Palpation: soft and nontender Skin General: no rashes or lesions noted Neuro General: patient alert and patient oriented x3 Extrem General: full ROM Psych Appearance: grossly normal Mental Status: mental status grossly normal Assessment and Plan Assessment and Plan (1) Encounter for adjustment and management of vascular access device: Status: Acute Plan: I discussed right chest port placement with the patient in detail. I discussed the procedure in detail as well as the risks of bleeding, infection, pneumothorax, line infection or DVT. Patient understands the risks and is willing to proceed. (more content not included)...[facility]08-09-2025 Telephone encounter Note* Telephone Encounter - Emelia Riddle - 02/17/2025 10:35 AM EDT Prescription Refill Information The patient has been identified by name and date of : Yes Caregiver verified no other encounters exist for this prescription request: Yes Caregiver confirmed with patient/requestor that no other refills are due, in the near future, with this provider at this time: Yes The last office visit in the department: 02/16/2025 Does the patient have a future office visit with this provider/department: Yes Spouse requesting this for over the weekend Requested Prescriptions Pending Prescriptions Disp Refills ondansetron orally disintegrating (ZOFRAN ODT) 4 mg disintegrating tablet 30 tablet 0 Sig: Take 1 tablet by mouth every 8 hours as needed for nausea/vomiting. Emelia Robertson February 17, 2025 10:35 AM [facility]08-09-2025 Miscellaneous Notes* Telephone Encounter - Emelia Riddle - 02/17/2025 10:35 AM EDT Prescription Refill Information The patient has been identified by name and date of : Yes Caregiver verified no other encounters exist for this prescription request: Yes Caregiver confirmed with patient/requestor that no other refills are due, in the near future, with this provider at this time: Yes The last office visit in the department: 02/16/2025 Does the patient have a future office visit with this provider/department: Yes Spouse requesting this for over the weekend Requested Prescriptions Pending Prescriptions Disp Refills ondansetron orally disintegrating (ZOFRAN ODT) 4 mg disintegrating tablet 30 tablet 0 Sig: Take 1 tablet by mouth every 8 hours as needed for nausea/vomiting. Emelia Robertson February 17, 2025 10:35 AM [facility]25 CharliHNO ID: [id number] Author: CRISTIAN ADAME MD Service: ? 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 - Recent PET scan on 02/06/25 showed marked interval worsening of bilateral pulmonary, bilateral hilar mediastinal, pancreatic body, left retroperitoneal hepatic, and osseous malignancy metastatic disease. - Biopsy confirmed diagnosis. - Prognosis is poor, but Hyun wishes to try chemotherapy and immunotherapy. - Scheduled for port placement on 02/20/25. - Experiencing dyspnea when going up and down stairs. - Denies hemoptysis; reports frequent coughing. - Recently quit smoking "cold turkey." - Denies current marijuana use due to lung discomfort. Pain Management: - Experiencing constant pain, worse at night, making it difficult to find a comfortable sleeping position. - Pain localized to the left flank, back, and occasionally the right side. - Currently taking oxycodone 5 mg every 6 hours PRN. - Reports constipation as a side effect of pain medication; using Miralax with some relief. - Denies use of Narcan at home. - Oncology currently has been having us manage his pain. - Pain meds are currently helping to function. Due to his widespread disease. Weight Loss and Poor Appetite: - Significant weight loss from 165 lbs in November to 137 lbs recently. - Poor appetite, previously managed with marijuana use. - Reports recent weight gain of 1.5 lbs, but lost the next day. Hyperglycemia: - Recent CMP showed glucose of 277 mg/dL. - Most recent A1c was 7.5%. - Resumed taking metformin to manage blood sugar levels. - Blood sugar readings range from 150-218 mg/dL. - Denies use of insulin; has a fear of needles. Declines ss insulin. - Monitoring blood sugar at home with assistance. MEDICATIONS: Current Outpatient Medications Medication Sig ondansetron orally disintegrating (ZOFRAN ODT) 4 mg disintegrating tablet Take 1 tablet by mouth every 8 hours as needed for nausea/vomiting. metFORMIN ER (GLUCOPHAGE XR) 500 mg 24 hr tablet Take 2 tablets by mouth once daily. RABEprazole (ACIPHEX) 20 mg tablet Take 1 tablet by mouth once daily. naloxone 4 mg/actuation nasal spray (NARCAN) Use 1 spray in one nostril as needed for overdose. May repeat every 2 to 3 min in alternating nostrils until medical assistance is available oxyCODONE IR (ROXICODONE) 5 mg immediate release tablet Take 1-2 tablets by mouth every 6 hours as needed for pain for up to 14 days. blood sugar diagnostic (BLOOD GLUCOSE TEST) test strip Test blood sugar(s) once daily. Dx: DM type II. Insulin: No Lancets Use with blood glucose test once daily No current facility-administered medications for this visit. [...] Yes Frequency: 2.0 times per week Comment: Manti per patient Reviewed current medications, allergies, past medical history, surgical history, family history and social history today. REVIEW OF SYSTEMS Constitutional: (+) unintentional weight loss, (+) night sweats, (+) insomnia Cardiovascular: (+) chest pain, (-) exertional chest pain, (-) lower extremity edema Respiratory: (+) exertional dyspnea, (+) cough, (-) hemoptysis Gastrointestinal: (+) poor appetite, (+) constipation, (+) abdominal bloating Musculoskeletal: (+) left flank pain, (+) back pain HEALTH MAINTENANCE: Reviewed health maintenance issues today and recommended the following in detail. Urine Albumin:Creatinine Ratio Never done Dilated Retinal Exam Never done Hepatitis B Va (more content not included)...[facility] 02-15-2025 Progress [facility] [address] [place] [address] OFFICE VISIT Date of Service: 02/15/25 MR#: [id number] Acct: [id number] Name: HYUN ELIAS Rep #: [id number] : 1975 Provider: Dr. Justino Vincent MD Age/Sex: 49/M Location: [facility] Status: Signed Intake Vital Signs 02/12/25 14:31 02/13/25 16:44 02/15/25 14:11 Height 5 ft 9 in 5 ft 9 in 5 ft 9 in Weight: 138 lb BMI 20.3 BP 98/66 Blood Pressure Location Rt brachial Position Sitting Respiration 18 Pulse 112 H Pulse Source Monitor Temp 97.2 F L Temp Source Temporal Pulse Oximetry (%) 92 Oxygen Delivery Method room air Intake Visit Reasons: PORT PLACEMENT Chief Complaint: port placement Accompanied by: Is patient in pain?: Yes Allergies sulfamethoxazole (From Bactrim) Allergy (Verified 02/15/25 14:13) Unknown trimethoprim (From Bactrim) Allergy (Verified 02/15/25 14:13) Unknown amoxicillin trihydrate (From Augmentin) Adverse Reaction (Verified 02/15/25 14:13) Nausea potassium clavulanate (From Augmentin) Adverse Reaction (Verified 02/15/25 14:13) Nausea Medications ?Medication ?Instructions ?Recorded ?Confirmed ?Type rabeprazole 20 mg tablet,delayed 20 mg PO DAILY 02/15/25 History release (AcipHex) oxycodone 5 mg tablet 5 mg PO Q6H PRN pain 3 days #12 11/12/24 02/15/25 Rx tabs folic acid 1 mg tablet 1 mg PO QDAY 01/18/25 History ondansetron 4 mg disintegrating 4 mg PO Q8H PRN PRN Na usea 01/18/25 02/15/25 History tablet metformin 500 mg tablet,extended 1,000 mg PO QDAY 11/0302/15/25 History release 24 hr dexamethasone 4 mg tablet 8 mg (2 x 4 mg) PO .COMPLEX #30 02/13/25 02/15/25 Rx tabs lidocaine-prilocaine 2.5 %-2.5 % 1 applic topical ONCE PRN port 02/13/25 02/15/25 Rx topical cream access 30 days #30 grams [facility] Medical History Encounter for education Surgical History History of hernia surgery History of appendectomy History of surgery on arm Family History Mother Diabetes Cancer Father Diabetes Grandmother Cancer Social History Smoking Status: Former smoker quit date: 01/07/25 second hand exposure: Yes alcohol intake: never substance use type: does not use HPI HPI HPI: Patient is a 49-year-old male here for port placement for lung cancer. ROS General General: Yes weight change and fatigue; No appetite, colon cancer, breast cancer or weakness Endo Endocrine: Yes diabetes mellitus; No thyroid disease, thyroid cancer, Hair loss, heat intolerance or cold intolerance Skin Skin: No rash or changing moles Musc Musculoskeletal: Yes back problems; No arthritis, rheumatoid arthritis, gout or joint pain Cardio Cardiovascular: Yes heart attack; No murmur, pacemaker, heart disease, atrial fibrillation, high blood pressure, heart stent, palpitations, shortness of breath with exertion or chest pain Psych Psychiatric: No depression, anxiety or hearing voices Resp Respiratory: Yes shortness of breath, No sleep apnea, Yes cough, No COPD, No asthma, No emphysema and No wheezing Gastro Gastrointestinal: Yes abdominal pain, No nausea or vomiting, No diarrhea, Yes constipation, No blood in stool, Yes acid reflux, No hemorrhoids, No ulcers, No gallbladder problem and No black,tarry stools Maverick Hematologic: No blood thinners, No blood disorders, No bleeding, No anemia and No blood clots Neuro Neurologic: No numbness, No tingling and No weakness Exam Const General: cooperative Orientation: alert and oriented x3 HENMT Head: normal to inspection Neck Neck: normal visual inspection and full ROM Chest Chest palpation & inspection: normal inspection of the chest Resp Effort & Inspection: normal respiratory effort Auscultation: clear to auscultation bilaterally Cardio Rate: regular rate Rhythm: regular rhythm GI Inspection: non-distended Palpation: soft and nontender Skin General: no rashes or lesions noted Neuro General: patient alert and patient oriented x3 Extrem General: full ROM Psych Appearance: grossly normal Mental Status: mental status grossly normal Assessment and Plan Assessment and Plan (1) Encounter for adjustment and management of vascular access device: Status: Acute Plan: I discussed right chest port placement with the patient in detail. I discussed the procedure in detail as well as the risks of bleeding, infection, pneumothorax, line infection or DVT. Patient understands the risks and is willing to proceed. Hernan Vincent MD Pager: [facility] [address] [place] [address] Office: Coding Level of Care Code Off vis,new,level 3 Diagnoses Encounter for adjustment and management of vascular access device Z45.2 02/15/25 1439 logan NELSON> Date _ Hernan Vincent MD [facility] Signature: Date (if applicable) CC: Dr. Region Burleson MD; Dr. Cristian Adame MD ~ [facility]08-07-2025 Progress note Author Hernan Vincent [facility] Note Date/Time February 15, 2025 2:[address] [place] [address] OFFICE VISIT Date of Service: 02/15/25 MR#: [id number] Acct: [id number] Name: HYUN ELIAS Rep #: [id number] : 1975 Provider: Dr. Justino Vincent MD Age/Sex: 49/M Location: [facility] Status: Signed Intake Vital Signs 02/12/25 14:31 02/13/25 16:44 02/15/25 14:11 Height 5 ft 9 in 5 ft 9 in 5 ft 9 in Weight: 138 lb BMI 20.3 BP 98/66 Blood Pressure Location Rt brachial Position Sitting Respiration 18 Pulse 112 H Pulse Source Monitor Temp 97.2 F L Temp Source Temporal Pulse Oximetry (%) 92 Oxygen Delivery Method room air Intake Visit Reasons: PORT PLACEMENT Chief Complaint: port placement Accompanied by: Is patient in pain?: Yes Allergies sulfamethoxazole (From Bactrim) Allergy (Verified 02/15/25 14:13) Unknown trimethoprim (From Bactrim) Allergy (Verified 02/15/25 14:13) Unknown amoxicillin trihydrate (From Augmentin) Adverse Reaction (Verified 02/15/25 14:13) Nausea potassium clavulanate (From Augmentin) Adverse Reaction (Verified 02/15/25 14:13) Nausea Medications ?Medication ?Instructions ?Recorded ?Confirmed ?Type rabeprazole 20 mg tablet,delayed 20 mg PO DAILY 02/15/25 History release (AcipHex) oxycodone 5 mg tablet 5 mg PO Q6H PRN pain 3 days #12 11/12/24 02/15/25 Rx tabs folic acid 1 mg tablet 1 mg PO QDAY 01/18/25 History ondansetron 4 mg disintegrating 4 mg PO Q8H PRN PRN Na usea 01/18/25 02/15/25 History tablet metformin 500 mg tablet,extended 1,000 mg PO QDAY 11/0302/15/25 History release 24 hr dexamethasone 4 mg tablet 8 mg (2 x 4 mg) PO .COMPLEX #30 02/13/25 02/15/25 Rx tabs lidocaine-prilocaine 2.5 %-2.5 % 1 applic topical ONCE PRN port 02/13/25 02/15/25 Rx topical cream access 30 days #30 grams PFSH Medical History Encounter for education Surgical History History of hernia surgery History of appendectomy History of surgery on arm Family History Mother Diabetes Cancer Father Diabetes Grandmother Cancer Social History Smoking Status: Former smoker quit date: 01/07/25 second hand exposure: Yes alcohol intake: never substance use type: does not use HPI HPI HPI: Patient is a 49-year-old male here for port placement for lung cancer. ROS General General: Yes weight change and fatigue; No appetite, colon cancer, breast cancer or weakness Endo Endocrine: Yes diabetes mellitus; No thyroid disease, thyroid cancer, Hair loss, heat intolerance or cold intolerance Skin Skin: No rash or changing moles Musc Musculoskeletal: Yes back problems; No arthritis, rheumatoid arthritis, gout or joint pain Cardio Cardiovascular: Yes heart attack; No murmur, pacemaker, heart disease, atrial fibrillation, high blood pressure, heart stent, palpitations, shortness of breath with exertion or chest pain Psych Psychiatric: No depression, anxiety or hearing voices Resp Respiratory: Yes shortness of breath, No sleep apnea, Yes cough, No COPD, No asthma, No emphysema and No wheezing Gastro Gastrointestinal: Yes abdominal pain, No nausea or vomiting, No diarrhea, Yes constipation, No blood in stool, Yes acid reflux, No hemorrhoids, No ulcers, No gallbladder problem and No black,tarry stools Maverick Hematologic: No blood thinners, No blood disorders, No bleeding, No anemia and No blood clots Neuro Neurologic: No numbness, No tingling and No weakness Exam Const General: cooperative Orientation: alert and oriented x3 HENMT Head: normal to inspection Neck Neck: normal visual inspection and full ROM Chest Chest palpation & inspection: normal inspection of the chest Resp Effort & Inspection: normal respiratory effort Auscultation: clear to auscultation bilaterally Cardio Rate: regular rate Rhythm: regular rhythm GI Inspection: non-distended Palpation: soft and nontender Skin General: no rashes or lesions noted Neuro General: patient alert and patient oriented x3 Extrem General: full ROM Psych Appearance: grossly normal Mental Status: mental status grossly normal Assessment and Plan Assessment and Plan (1) Encounter for adjustment and management of vascular access device: Status: Acute Plan: I discussed right chest port placement with the patient in detail. I discussed the procedure in detail as well as the risks of bleeding, infection, pneumothorax, line infection or DVT. Patient understands the risks and is willing to proceed. Hernan Vincent MD Pager: [facility] [address] [place] [address], [address] [place] [address] Office: Coding Level of Care Code Off vis,new,level 3 Diagnoses Encounter for adjustment and management of vascular access device Z45.2 02/15/25 1439 <Electronically signed by Hernan ford MD> Date _ Hernan Vincent MD Cosigner Signature: Date (if applicable) CC: Dr. Regino Burleson MD; Dr. Cristian Adame MD ~ [facility] Work Phone: 1(456) 395-117608-02-2025 Telephone encounter Note* Telephone Encounter - Marshall Tran RN - 02/10/2025 9:22 AM EDT Call placed to Trudy and notified with verbalized understanding. Appt is scheduled for 02/26/2025. Marshall Tran RN [facility]08-02-2025 Miscellaneous Notes* Telephone Encounter - Marshall Tran RN - 02/10/2025 9:22 AM EDT Call placed to Trudy and notified with verbalized understanding. Appt is scheduled for 02/26/2025. Marshall Tran RN * Telephone Encounter - Cristian Adame MD - 02/10/2025 9:18 AM EDT Make sure has a follow up appt at some point. * Telephone Encounter - Marshall Tran RN - 02/10/2025 8:09 AM EDT Significant other (Trudy) calls to report that patient needs a refill of oxycodone and only has one pill left. She has been working a lot and patient just told her this morning. Patient has recentlybeen diagnosed with cancer and needs the medication. Last OV: 01/30/2025 Next OV: 02/26/[address] Adame. Sending request. Marshall Tran RN [facility] Telephone encounter Note * Telephone Encounter - Cristian Adame MD - 02/10/2025 9:18 AM EDT Make sure has a follow up appt at some point. [facility]08-02-2025 Telephone encounter Note* Telephone Encounter - Marshall Tran RN - 02/10/2025 8:09 AM EDT Significant other (Trudy) calls to report that patient needs a refill of oxycodone and only has one pill left. She has been working a lot and patient just told her this morning. Patient has recentlybeen diagnosed with cancer and needs the medication. Last OV: 01/30/2025 Next OV: 02/26/[address] Adame. Sending request. Marshall Tran RN [facility]2025 Telephone encounter Note* Telephone Encounter - Gilda Noonan APRN.CNP - 02/06/2025 8:08 AM EDT The following approved medication requests have been transmitted electronically. Requested Prescriptions Pending Prescriptions Disp Refills ondansetron orally disintegrating (ZOFRAN ODT) 4 mg disintegrating tablet 30 tablet 0 Sig: Take 1 tablet by mouth every 8 hours as needed for nausea/vomiting. Gilda Noonan APRN.CNP [facility]2025 Miscellaneous Notes* Telephone Encounter - Gilda Noonan APRN.CNP - 02/06/2025 8:08 AM EDT The following approved medication requests have been transmitted electronically. Requested Prescriptions Pending Prescriptions Disp Refills ondansetron orally disintegrating (ZOFRAN ODT) 4 mg disintegrating tablet 30 tablet 0 Sig: Take 1 tablet by mouth every 8 hours as needed for nausea/vomiting. Gilda Noonan APRN.CNP * Telephone Encounter - Emelia Mcclendon RN - 02/06/2025 8:05 AM EDT The patient has been identified by name and date of : Yes Caregiver verified no other encounters exist for this prescription request: Yes Caregiver confirmed with patient/requestor that no other refills are due, in the near future, with this provider at this time: Yes The last office visit in the department: 01/30/2025 Does the patient have a future office visit with this provider/department: Yes 02/26/2025 Requested Prescriptions Pending Prescriptions Disp Refills ondansetron orally disintegrating (ZOFRAN ODT) 4 mg disintegrating tablet 30 tablet 0 Sig: Take 1 tablet by mouth every 8 hours as needed for nausea/vomiting. Emelia Mcclendon RN documented [facility]2025 Telephone encounter Note * Telephone Encounter - Emelia Mcclendon RN - 02/06/2025 8:05 AM EDT The patient has been identified by name and date of : Yes Caregiver verified no other encounters exist for this prescription request: Yes Caregiver confirmed with patient/requestor that no other refills are due, in the near future, with this provider at this time: Yes The last office visit in the department: 01/30/2025 Does the patient have a future office visit with this provider/department: Yes 02/26/2025 Requested Prescriptions Pending Prescriptions Disp Refills ondansetron orally disintegrating (ZOFRAN ODT) 4 mg disintegrating tablet 30 tablet 0 Sig: Take 1 tablet by mouth every 8 hours as needed for nausea/vomiting. Emelia Mcclendon RN [facility]07-28-2025 Telephone encounter Note* Telephone Encounter - Alexa Baca LPN - 02/05/2025 12:00 PM EDT Glucometer, test strips, and lancets sent to [facility]07-28-2025 Miscellaneous Notes* Telephone Encounter - Alexa Baca LPN - 02/05/2025 12:00 PM EDT Glucometer, test strips, and lancets sent to [facility]. * Result Encounter Note - Gilda Noonan APRN.CNP - 02/05/2025 11:44 AM EDT Glucometer, test strips, and lancets sent to [facility]. * Telephone Encounter - Nupur Green MA - 02/05/2025 10:07 AM EDT Patient was made aware of the results. Patient verbalizes understanding. Asking for glucose monitor to be sent to [facility] Nupur Green Ma * Telephone Encounter - Nupur Green MA - 02/05/2025 10:06 AM EDT ----- Message from Gilda Noonan sent at 02/01/2025 5:05 PM EDT ----- Iron saturation is decreased but your iron stores are high. Worsening anemia. Folate normal. * Result Encounter Note - Gilda Noonan APRN.CNP - 02/01/2025 5:05 PM EDT Iron saturation is decreased but your iron stores are high. Worsening anemia. Folate normal. documented in [facility] encounterPro[facility] Progress note* Result Encounter Note - Gilda Noonan APRN.CNP - 02/05/2025 11:44 AM EDT Glucometer, test strips, and lancets sent to [facility]. [facility]07[facility] Telephone encounter Note* Telephone Encounter - Nupur Green MA - 02/05/2025 10:07 AM EDT Patient was made aware of the results. Patient verbalizes understanding. Asking for glucose monitor to be sent to [facility]07-28-2025 Telephone encounter Note* Telephone Encounter - Nupur Green MA - 02/05/2025 10:06 AM EDT ----- Message from Gilda Noonan sent at 02/01/2025 5:05 PM EDT ----- Iron saturation is decreased but your iron stores are high. Worsening anemia. Folate normal. [facility]07-24-2025 Progress note* Result Encounter Note - Gilda Noonan APRN.CNP - 02/01/2025 5:05 PM EDT Iron saturation is decreased but your iron stores are high. Worsening anemia. Folate normal. [facility]07-22-2025 Telephone encounter Note* Telephone Encounter - Gilda Noonan APRN.CNP - 01/30/2025 2:14 PM EDT The following approved medication requests have been transmitted electronically. Requested Prescriptions Pending Prescriptions Disp Refills RABEprazole (ACIPHEX) 20 mg tablet 90 tablet 3 Sig: Take 1 tablet by mouth once daily. Gilda Noonan APRN.CNP [facility]07-22-2025 Miscellaneous Notes* Telephone Encounter - Gilda Noonan APRN.CNP - 01/30/2025 2:14 PM EDT The following approved medication requests have been transmitted electronically. Requested Prescriptions Pending Prescriptions Disp Refills RABEprazole (ACIPHEX) 20 mg tablet 90 tablet 3 Sig: Take 1 tablet by mouth once daily. Gilda Noonan APRN.CNP * Telephone Encounter - Nupur Green MA - 01/30/2025 1:55 PM EDT The patient has been identified by name and date of : Yes Caregiver verified no other encounters exist for this prescription request: Yes Caregiver confirmed with patient/requestor that no other refills are due, in the near future, with this provider at this time: Yes The last office visit in the department: 01/30/2025 Does the patient have a future office visit with this provider/department: Yes 02/26/2025 Requested Prescriptions Pending Prescriptions Disp Refills RABEprazole (ACIPHEX) 20 mg tablet 90 tablet 3 Sig: Take 1 tablet by mouth once daily. Nupur Green MA January 30, 2025 1:56 PM documented in this encounterProtest[facility] Hospital07-22-2025 Telephone encounter Note * Telephone Encounter - Nupur Green MA - 01/30/2025 1:55 PM EDT The patient has been identified by name and date of : Yes Caregiver verified no other encounters exist for this prescription request: Yes Caregiver confirmed with patient/requestor that no other refills are due, in the near future, with this provider at this time: Yes The last office visit in the department: 01/30/2025 Does the patient have a future office visit with this provider/department: Yes 02/26/2025 Requested Prescriptions Pending Prescriptions Disp Refills RABEprazole (ACIPHEX) 20 mg tablet 90 tablet 3 Sig: Take 1 tablet by mouth once daily. Nupur Green MA January 30, 2025 1:56 PM [facility]07-[facility] Instructions* Patient Instructions* Gilda Noonan APRN.CNP - 01/30/2025 1:06 PM EDT - Start metformin ER: take 2 tablets once a day with your largest meal (supper); prescription has been sent to your pharmacy. - Use the Miralax sample to ease constipation: pour one packet into a glass of water, stir, and drink as needed. - Collect a urine sample at home when it s convenient and bring it back to the office for a UA and possible culture. - Limit starchy foods such as potatoes and pasta, and reduce sugary drinks like sweet tea or soda. - Try a sugar-free Kake breakfast drink (or similar) one to two times a day to boost your calorie and protein intake. - See Dr. Adame 02/26/25 as scheduled documented in this encounterProtestant Hospital07-22-2025 NoteHNO ID: [id number] Author: GILDA NOONAN APRN.PRAFUL Service: ? Author Type: Nurse Practitioner Type: Progress Notes Filed: 01/30/2025 13:08 Note Text: This is a 49 year old male who presents today with: Patient presents with: Acute Visit: Elevated glucose at PET scan appointment HISTORY OF PRESENT ILLNESS: Hyun Elias is a 49 year old male. Patient presents with: Acute Visit: Elevated glucose at PET scan appointment Patient was scheduled for his PET scan today but they could not do it because his blood sugar was too high. He is diabetic, 2 months ago hemoglobin A1c of 7.5%. Quit metformin. Hyun Elias is a 49-year-old male with a history of diabetes mellitus, presenting for evaluation of hyperglycemia, hematuria, and weight loss. Hyperglycemia: - Blood glucose readings this mornin mg/dL and 300 mg/dL. - Previously prescribed metformin; medication and was not taken. - Reports excessive thirst. - Denies headaches and polyphagia. - Diet includes sweet tea; denies dietary restrictions. - Consumes one meal per day. Hematuria: - Reports urine with a "gregoria" color. - Denies dysuria. Weight Loss: - Lost 30 lbs over the past 2 months, from 170 lbs to 140 lbs. - Denies nausea or vomiting. - Able to drink milk without issues. Abdominal and Back Pain: - Reports constant abdominal and occasional back pain. - Denies nausea or vomiting. - Reports constipation, attributing it to pain medication use. - Previously used a stool softener, which caused abdominal cramping. Cancer: - Recent diagnosis; specific type not mentioned. Substance Use: - Quit marijuana and tobacco use over 2 months ago. - Stopped caffeine consumption. PAST MEDICAL HISTORY: PAST MEDICAL HISTORY Diagnosis [...] [Sulfamethoxazole] MEDICATIONS Current Outpatient Medications Medication Sig oxyCODONE IR (ROXICODONE) 5 mg immediate release tablet Take 1 tablet by mouth every 6 hours as needed for pain for up to 7 days. ondansetron orally disintegrating (ZOFRAN ODT) 4 mg disintegrating tablet Take 1 tablet by mouth every 8 hours as needed for nausea/vomiting. RABEprazole (ACIPHEX) 20 mg tablet Take 1 tablet by mouth once daily. naloxone 4 mg/actuation nasal spray (NARCAN) Use 1 spray in one nostril as needed for overdose. May repeat every 2 to 3 min in alternating nostrils until medical assistance is available ferrous sulfate 325 mg (65 mg iron) tablet Take 1 tablet by mouth two times a day with meals. (Patient not taking: Reported on 01/30/2025) folic acid 1 mg tablet Take 1 tablet by mouth once daily. (Patient not taking: Reported on 01/30/2025) No current facility-administered medications for this visit. [...] Yes Frequency: 2.0 times per week Comment: Manti per patient REVIEW OF SYSTEMS Constitutional: (+) weight loss, (-) fever, (-) chills Head: (-) headache Gastrointestinal: (+) abdominal pain, (+) constipation, (-) nausea, (-) vomiting, (-) diarrhea Genitourinary: (+) urinary frequency, (+) weak urinary stream, (+) hematuria, (-) dysuria Musculoskeletal: (+) back pain Endocrine: (+) increased thirst, (-) increased appetite EXAM: BP 100/58 Pulse 113 Temp 36.9 ?C (98.5 ?F) (Left Tympanic) Wt 63.5 kg (140 lb) SpO2 95% BMI 20.09 kg/m? PHYSICAL EXAM: GENERAL: NAD, alert and oriented. SKIN: Unremarkable, no rash or skin lesions. HEAD: Normocephalic. EYES: PERRLA, EOMI, conjunctiva clear. EARS: External ears normal, canals with waxy cerumen, TM's normal. OROPHARYNX: Lips, mucosa, and tongue normal, good dentition. No oral lesions noted. NECK: Supple, no lymphadenopathy, normal thyroid, no carotid bruits. LUNGS: Clear to auscultation bilaterally, diminished posteriorly, no wheezes/rhonchi/rales. HEART: Regular rate and rhythm, no murmurs. No ectopy. EXTREMITIES: Normal, no deformities, no skin discoloration, no edema. NEURO: Awake, alert and oriented x3, normal gait, no invol (more content not included)...[facility]07-22-2025 History of Present illness Narrative* Gilda Noonan APRN.[facility] - 01/30/2025 12:51 PM EDT This is a 49 year old male who presents today with: Patient presents with: Acute Visit: Elevated glucose at PET scan appointment HISTORY OF PRESENT ILLNESS: Hyun Elias is a 49 year old male. Patient presents with: Acute Visit: Elevated glucose at PET scan appointment Patient was scheduled for his PET scan today but they could not do it because his blood sugar was too high. He is diabetic, 2 months ago hemoglobin A1c of 7.5%. Quit metformin. Hyun Elias is a 49-year-old male with a history of diabetes mellitus, presenting for evaluation of hyperglycemia, hematuria, and weight loss. Hyperglycemia: - Blood glucose readings this mornin mg/dL and 300 mg/dL. - Previously prescribed metformin; medication and was not taken. - Reports excessive thirst. - Denies headaches and polyphagia. - Diet includes sweet tea; denies dietary restrictions. - Consumes one meal per day. Hematuria: - Reports urine with a "gregoria" color. - Denies dysuria. Weight Loss: - Lost 30 lbs over the past 2 months, from 170 lbs to 140 lbs. - Denies nausea or vomiting. - Able to drink milk without issues. Abdominal and Back Pain: - Reports constant abdominal and occasional back pain. - Denies nausea or vomiting. - Reports constipation, attributing it to pain medication use. - Previously used a stool softener, which caused abdominal cramping. Cancer: - Recent diagnosis; specific type not mentioned. Substance Use: - Quit marijuana and tobacco use over 2 months ago. - Stopped caffeine consumption. PAST MEDICAL HISTORY: PAST MEDICAL HISTORY Diagnosis [...] [Sulfamethoxazole] MEDICATIONS Current Outpatient Medications Medication Sig oxyCODONE IR (ROXICODONE) 5 mg immediate release tablet Take 1 tablet by mouth every 6 hours as needed for pain for up to 7 days. ondansetron orally disintegrating (ZOFRAN ODT) 4 mg disintegrating tablet Take 1 tablet by mouth every 8 hours as needed for nausea/vomiting. RABEprazole (ACIPHEX) 20 mg tablet Take 1 tablet by mouth once daily. naloxone 4 mg/actuation nasal spray (NARCAN) Use 1 spray in one nostril as needed for overdose. Mayrepeat every 2 to 3 min in alternating nostrils until medical assistance is available ferrous sulfate 325 mg (65 mg iron) tablet Take 1 tablet by mouth two times a day with meals. (Patient not taking: Reported on 01/30/2025) folic acid 1 mg tablet Take 1 tablet by mouth once daily. (Patient not taking: Reported on 01/30/2025) No current facility-administered medications for this visit. [...] Yes Frequency: 2.0 times per week Comment: Manti per patient REVIEW OF SYSTEMS Constitutional: (+) weight loss, (-) fever, (-) chills Head: (-) headache Gastrointestinal: (+) abdominal pain, (+) constipation, (-) nausea, (-) vomiting, (-) diarrhea Genitourinary: (+) urinary frequency, (+) weak urinary stream, (+) hematuria, (- ) dysuria Musculoskeletal: (+) back pain Endocrine: (+) increased thirst, (-) increased appetite EXAM: BP 100/58 Pulse 113 Temp 36.9 C (98.5 F) (Left Tympanic) Wt 63.5 kg (140 lb) SpO2 95% BMI20.09 kg/m PHYSICAL EXAM: GENERAL: NAD, alert and oriented. SKIN: Unremarkable, no rash or skin lesions. HEAD: Normocephalic. EYES: PERRLA, EOMI, conjunctiva clear. EARS: External ears normal, canals with waxy cerumen, TM's normal. OROPHARYNX: Lips, mucosa, and tongue normal, good dentition. No oral lesions noted. NECK: Supple, no lymphadenopathy, normal thyroid, no carotid bruits. LUNGS: Clear to auscultation bilaterally, diminished posteriorly, no wheezes/rhonchi/rales. HEART: Regular rate and rhythm, no murmurs. No ectopy. EXTREMITIES: Normal, no deformities, no skin discoloration, no edema. NEURO: Awake, alert and oriented x3, normal gait, no involuntary motions. LABS: Labs: (Today) - Fingerstick glucose: 200 mg/dL - Fingerstick glucose: 300 mg/dL (December) Liver function test: Normal Check UA for reflex ASSESSMENT/PLAN: 1. Dysuria (R30.0) - Hematuria and weak urinary stream reported; no dysuria. - Ordered urinalysis with culture to rule out urinary tract infection. - Patient to take urine sample home and return it when able. 2. Uncontrolled type 2 diabetes mellitus without complication, with long-term current use of insulin (HCC) (E11.9) - Blood glucose levels elevated at 200 mg/dL and 300 mg/dL on fingerstick testing. - Previously prescribed metformin SA; will resume treatment. - Instructed to take two tablets of metformin SA once daily with the largest meal. - Advised dietary modifications to reduce carbohydrate intake. 3. Acute constipation (K59.00) - Constipation likely secondary to opioid use. - Provided samples of Miralax; instructed on use. - Discontinue use of stool softeners. 4. Malignant neoplasm of lower lobe of lung, unspecified laterality (HCC) (C34.30) - Significant weight loss from 170 lbs to 140 lbs over two months. - No nausea or vomiting reported. - Recommended increasing caloric intake with Kake breakfast drink (sugar- free) once or twice daily. Discussed treatment plan and patient voices understanding. Patient's questions answered appropriately. Medications and potential side effects were discussed and patient voices understanding. Return to the office as scheduled or as needed for worsening/no improvement. 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 PET scan ordered for staging. He did have concerningliver lesions on CT of the abdomen obtained in November of this year. This would be concerning for advanced disease. I explained to the patient that he will also require an MRI of the brain for staging. Staging will need to be evaluated before treatment can be determined Nicotine abuse chronic. Extensive smoking history at least 40 to 50 pack years. Not complaining of bothersome shortness of breath or cough at night. Follow up with him in 6 months to make sure he does not become more symptomatic throughout treatment. Unintentional weight loss acute he has lost 20 pounds unintentionally in the last 2 months. This islikely related to new diagnosis of cancer. Defer to nutrition and supplement recommendations to oncology PET/CT tumor base malignant neoplasm of right lower lobe bronchus Tissue pathology is consistent with non-small cell carcinoma consistent with squamous cell carcinoma. 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 PET scan ordered for staging. He did have concerningliver lesions on CT of the abdomen obtained in November of this year. This would be concerning for advanced disease. I explained to the patient that he will also require an MRI of the brain for staging. Staging will need to be evaluated before treatment can be determined Nicotine abuse chronic. Extensive smoking history at least 40 to 50 pack years. Not complaining of bothersome shortness of breath or cough at night. Follow up with him in 6 months to make sure he does not become more symptomatic throughout treatment. Unintentional weight loss acute he has lost 20 pounds unintentionally in the last 2 months. This islikely related to new diagnosis of cancer. Defer to nutrition and supplement recommendations to oncology PET/CT tumor base malignant neoplasm of right lower lobe bronchus Tissue pathology is consistent with non-small cell carcinoma consistent with squamous cell carcinoma. Patient is on rabeprazole 20 mg daily Oxycodone 5 mg every 6 hours as needed for pain for 3 days Folic acid 1 mg daily Zofran as needed documented in this encounterProtest[facility]07-[facility]-2025 Telephone encounter Note * Telephone Encounter - Cristian Adame MD - 01/25/2025 9:48 AM EDT Now diagnosed with squamous cell cancer of lung with likely mets. [facility]07-17-[facility] Miscellaneous Notes* Telephone Encounter - Cristian Adame MD - 01/25/2025 9:48 AM EDT Now diagnosed with squamous cell cancer of lung with likely mets. * Telephone Encounter - Emelia Mcclendon RN - 01/25/2025 8:28 AM EDT The patient has been identified [...] future office visit with this provider/department: Yes 02/26/2025 Requested Prescriptions Pending Prescriptions Disp Refills oxyCODONE IR (ROXICODONE) 5 mg immediate release tablet 20 tablet 0 Sig: Take 1 tablet by mouth every 6 hours as needed for pain for up to 5 days. Emelia Mcclendon RN documented in this encounterProtest[facility] Hospital07-17-2025 Telephone encounter Note * Telephone Encounter - Emelia Mcclendon RN - 01/25/2025 8:28 AM EDT The patient has been identified [...] future office visit with this provider/department: Yes 02/26/2025 Requested Prescriptions Pending Prescriptions Disp Refills oxyCODONE IR (ROXICODONE) 5 mg immediate release tablet 20 tablet 0 Sig: Take 1 tablet by mouth every 6 hours as needed for pain for up to 5 days. Emelia Mcclendon RN [facility]07-14-2025 Telephone encounter Note* Telephone Encounter - Cecily Soler RN - 01/22/2025 8:26 AM EDT The patient has been identified [...] 01/24/2025 Requested Prescriptions Pending Prescriptions Disp Refills ondansetron orally disintegrating (ZOFRAN ODT) 4 mg disintegrating tablet 30 tablet 0 Sig: Take 1 tablet by mouth every 8 hours as needed for nausea/vomiting. Cecily Soler RN January 22, 2025 8:27 AM T [facility]07-14-2025 Miscellaneous Notes* Telephone Encounter - Cecily Soler RN - 01/22/2025 8:26 AM EDT The patient has been identified [...] 01/24/2025 Requested Prescriptions Pending Prescriptions Disp Refills ondansetron orally disintegrating (ZOFRAN ODT) 4 mg disintegrating tablet 30 tablet 0 Sig: Take 1 tablet by mouth every 8 hours as needed for nausea/vomiting. Cecily Soler RN January 22, 2025 8:27 AM documented in this encounterProtestant Hospital07-08-2025 Telephone encounter Note * Telephone Encounter - Cristian Adame MD - 01/16/2025 8:57 AM EDT Oarrs done. Taking for possible metastatic malignancy. Can we check in records at [facility] and see if biopsy done in last week or so? [facility]07-08-2025 Miscellaneous Notes* Telephone Encounter - Cristian Adame MD - 01/16/2025 8:57 AM EDT Oarrs done. Taking for possible metastatic malignancy. Can we check in records at [facility] and see if biopsy done in last week or so? * Telephone Encounter - Anna Anton LPN - 01/16/2025 8:10 AM EDT The patient has been identified [...] Requested Prescriptions Pending Prescriptions Disp Refills oxyCODONE IR (ROXICODONE) 5 mg immediate release tablet 20 tablet 0 Sig: Take 1 tablet by mouth every 6 hours as needed for pain for up to 5 days. Patient has one tablet left. Anna Anton LPN January 16, 2025 8:12 AM documented in this encounterProtestant Hospital07-08-2025 Telephone encounter Note * Telephone Encounter - Anna Anton LPN - 01/16/2025 8:10 AM EDT The patient has been identified [...] Requested Prescriptions Pending Prescriptions Disp Refills oxyCODONE IR (ROXICODONE) 5 mg immediate release tablet 20 tablet 0 Sig: Take 1 tablet by mouth every 6 hours as needed for pain for up to 5 days. Patient has one tablet left. Anna Anton LPN January 16, 2025 8:12 AM [facility]-26-[facility] Telephone encounter Note* Telephone Encounter - Gilda Noonan APRN.CNP - 01/04/2025 5:24 PM EDT done [facility] Miscellaneous Notes* Telephone Encounter - Gilda Noonan APRN.CNP - 01/04/2025 5:24 PM EDT done * Telephone Encounter - Petty Stack RN - 01/04/2025 4:36 PM EDT Shanon from [facility] calls and is asking if provider can send over script for oxyir tablets instead of capsules? Please review and advise, Petty Stack RN documented in this encounterProtestant Hospital06-26-2025 Telephone encounter Note * Telephone Encounter - Petty Stack RN - 01/04/2025 4:36 PM EDT Shanon from [facility] calls and is asking if provider can send over script for oxyir tablets instead of capsules? Please review and advise, Petty Stack RN [facility]06-26-2025 Radiology Diagnostic study note [facility] Imaging Services [address] [place] [address] Biopsy/Inj or Needle Placement MR#: [id number] Acct: [id number] Name: HYUN ELIAS Rep #: [id number] : 1975 M 49 From: Edy Lynch MD PCP: Dr. Cristian Adame MD Status: DANTE CLEMENS Study:Biopsy/Inj or Needle Placement Date of Exam: 01/04/25 Exam# [id number] Ordering Dr: Benson DO EXAM: CT-guided core biopsy a right lower lobe posterior peripheral mass. CLINICAL HISTORY: Innumerable bilateral presumed pulmonary metastases. COMPARISON: CT examination of 11/12/2024. TECHNIQUE: Conscious sedation was provided, with IV administration a total of 2 mg Versed and 100 mcg fentanyl. Following informed consent, and using standard sterile technique, a CT-guided core biopsy of a peripheral right lower lobe posterior mass was performed. 2% lidocaine local anesthesia was followed by placement of a CorVocet 20/19 gauge core biopsy device, under CT guidance. A total of 5 core specimens were obtained. Postprocedure 1 hour and 3 hour inspiratory and expiratory chest x-rays were also performed No complication was encountered, in the patient left the department in good condition without significant complication. Dose: DLP 3070.36 mGy-cm. CT/Biopsy/Inj or Needle Placement IMPRESSION: Successful core biopsy of a peripheral right lower lobe posterior nodule. Pathology results pending. Reading Location: [place] [address] CC: Dr. Denny Moffett DO; Dr. Cristian Adame MD ~ Manager Behavior: Signed [facility]06-26-2025 Radiology Diagnostic study note [facility] Imaging Services [address] [place], [place] [id number] Chest Insp/Exp 2 View MR#: [id number] Acct: [id number] [facility] Rep #: [id number] : 1975 M 49 From: Edy Lynch MD PCP: Dr. Cristian Adame MD Status: REG C LI Study:Chest Insp/Exp 2 View Date of Exam: 01/04/25 Exam# [id number] Ordering Dr: Theodore Lynch MD PROCEDURE: CHEST INSP/EXP 2 VIEW 01/04/2025 REASON FOR EXAM: 3 Hours POST right LUNG BIOPSY TECHNIQUE: CHEST INSP/EXP 2 VIEW COMPARISON: Chest x-ray of 2 hours earlier. RAD/Chest Insp/Exp 2 View IMPRESSION: Numerous bilateral lung nodules are again noted. No pneumothorax is present. No significant pleural effusion is seen. The cardiomediastinal silhouette is stable, without evidence of cardiomegaly Reading Location: [place] [address] CC: Dr. Theodore Lynch MD; Dr. Cristian Adame MD ~ Manager Behavior: Signed [facility]06-26-2025 Radiology Diagnostic study note [facility] Imaging Services [address], [place] [address] Chest Insp/Exp 2 View MR#: [id number] Acct: [id number] Name: HYUN ELIAS Rep #: [id number] : 1975 M 49 From: Byron Ordoñez MD PCP: Dr. Cristian Adame MD Status: REG C LI Study:Chest Insp/Exp 2 View Date of Exam: 01/04/25 Exam# [id number] Ordering Dr: Theodore Lynch MD PROCEDURE: CHEST INSP/EXP 2 VIEW 01/04/2025 REASON FOR EXAM: POST LUNG BIOPSY TECHNIQUE: CHEST INSP/EXP 2 VIEW COMPARISON: None FINDINGS: No evidence of pneumothorax on the immediate post right lung biopsy radiographs. Multiple bilateral pulmonary nodules. RAD/Chest Insp/Exp 2 View IMPRESSION: No evidence of pneumothorax. Reading Location: [id number] CC: Dr. Theodore Lynch MD; Dr. Cristian Adame MD ~ Manager Behavior: Signed [facility]06-26-2025 Telephone encounter Note* Telephone Encounter - Gilda Noonan APRN.CNP - 01/04/2025 8:39 AM EDT The following approved medication requests have been transmitted electronically. Requested Prescriptions Signed Prescriptions Disp Refills ondansetron orally disintegrating (ZOFRAN ODT) 4 mg disintegrating tablet 30 tablet 0 Sig: Take 1 tablet by mouth every 8 hours as needed for nausea/vomiting. Authorizing Provider: GILDA NOONAN oxyCODONE ir (OXYIR) 5 mg capsule 20 capsule 0 Sig: Take 1 capsule by mouth every 6 hours as needed for pain for up to 5 days. Authorizing Provider: IGLDA NOONAN naloxone 4 mg/actuation nasal spray (NARCAN) 2 each 1 Sig: Use 1 spray in one nostril as needed for overdose. May repeat every 2 to 3 min in alternating nostrils until medical assistance is available Authorizing Provider: GILDA NOONAN APRN.CNP [facility]06-26-2025 Miscellaneous Notes* Telephone Encounter - Gilda Noonan APRN.CNP - 01/04/2025 8:39 AM EDT The following approved medication requests have been transmitted electronically. Requested Prescriptions Signed Prescriptions Disp Refills ondansetron orally disintegrating (ZOFRAN ODT) 4 mg disintegrating tablet 30 tablet 0 Sig: Take 1 tablet by mouth every 8 hours as needed for nausea/vomiting. Authorizing Provider: GILDA NOONAN oxyCODONE ir (OXYIR) 5 mg capsule 20 capsule 0 Sig: Take 1 capsule by mouth every 6 hours as needed for pain for up to 5 days. Authorizing Provider: GLIDA NOONAN naloxone 4 mg/actuation nasal spray (NARCAN) 2 each 1 Sig: Use 1 spray in one nostril as needed for overdose. May repeat every 2 to 3 min in alternating nostrils until medical assistance is available Authorizing Provider: GILDA NOONAN APRN.CNP * Telephone Encounter - Anna Anton LPN - 01/04/2025 8:15 AM EDT The patient has been identified [...] 01/24/2025 Requested Prescriptions Pending Prescriptions Disp Refills ondansetron orally disintegrating (ZOFRAN ODT) 4 mg disintegrating tablet 30 tablet 0 Sig: Take 1 tablet by mouth every 8 hours as needed for nausea/vomiting. oxyCODONE ir (OXYIR) 5 mg capsule 28 capsule 0 Sig: Take 1 capsule by mouth every 6 hours as needed for pain for up to 7 days. Anna Anton LPN January 04, 2025 8:18 AM documented in this encounterProtest[facility]06[facility]25 Telephone encounter Note * Telephone Encounter - Anna Anton LPN - 01/04/2025 8:15 AM EDT The patient has been identified [...] 01/24/2025 Requested Prescriptions Pending Prescriptions Disp Refills ondansetron orally disintegrating (ZOFRAN ODT) 4 mg disintegrating tablet 30 tablet 0 Sig: Take 1 tablet by mouth every 8 hours as needed for nausea/vomiting. oxyCODONE ir (OXYIR) 5 mg capsule 28 capsule 0 Sig: Take 1 capsule by mouth every 6 hours as needed for pain for up to 7 days. Anna Anton LPN January 04, 2025 8:18 AM [facility]06-18-2025 Telephone encounter Note* Telephone Encounter - Sepideh Pires LPN - 12/27/2024 11:31 AM EDT Pt notified pf Dr Adame's message. Pt verbalizes understanding. Pt had just wanted to give PCP a head up. Pt will wait and do procedure at [facility]. Sepideh Pires LPN [facility]06-18-2025 Miscellaneous Notes* Telephone Encounter - Sepideh Pires LPN - 12/27/2024 11:31 AM EDT Pt notified pf Dr Adame's message. Pt verbalizes understanding. Pt had just wanted to give PCP a head up. Pt will wait and do procedure at [facility]. Sepideh Pires LPN * Telephone Encounter - Cristian Adame MD - 12/27/2024 8:47 AM EDT Likely would need to be done at one of the hospitals and doubt it could get set up any sooner than next week. 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 Would actually take much longer * Telephone Encounter - Monserrat Alcantara RN - 12/27/2024 8:15 AM EDT Pt phoned to let pcp know he was suppose to have his biopsy done today at [facility]. [facility] cancelled and re-scheduled for next Thurs- telling pt the part they need for the CT is stuck in [place]. Pt asking pcp is there any way he can have the biopsy done at the [facility]? Please advise pt. [phone] documented in this encounterProtestant Hospital06-18-2025 Telephone encounter Note * Telephone Encounter - Cristian Adame MD - 12/27/2024 8:47 AM EDT Likely would need to be done at one of the hospitals and doubt it could get set up any sooner than next week. 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 Would actually take much longer [facility]06-18[facility]2025 Telephone encounter Note* Telephone Encounter - Monserrat Alcantara RN - 12/27/2024 8:15 AM EDT Pt phoned to let pcp know he was suppose to have his biopsy done today at [facility]. [facility] cancelled and re-scheduled for next Thurs- telling pt the part they need for the CT is stuck in [place]. Pt asking pcp is there any way he can have the biopsy done at the [facility]? Please advise pt. [phone] [facility]06-12-2025 Telephone encounter Note* Telephone Encounter - Nupur Green MA - 12/21/2024 4:57 PM EDT Trudy notified. Nupur Green MA December 21, 2024 4:57 PM [facility]06-12-2025 Miscellaneous Notes* Telephone Encounter - Nupur Green MA - 12/21/2024 4:57 PM EDT Trudy notified. Nupur Green MA December 21, 2024 4:57 PM * Telephone Encounter - Cristian Adame MD - 12/21/2024 12:55 PM EDT I can give him a dose of vistaril. Will need someone to drive him. * Telephone Encounter - Petty Stack RN - 12/21/2024 12:50 PM EDT Patient's significant other calls and states that patient is supposed to have have biopsy done 12/27. Patient was told to call PCP to see if something can be ordered to relax patient before procedure? Pharmacy is [facility]. Please review and advise, Petty Stack, RN documented in this encounterProtestant Hospital06-12-2025 Telephone encounter Note * Telephone Encounter - Cristian Adame MD - 12/21/2024 12:55 PM EDT I can give him a dose of vistaril. Will need someone to drive him. [facility]06-12-2025 Telephone encounter Note* Telephone Encounter - Petty Stack RN - 12/21/2024 12:50 PM EDT Patient's significant other calls and states that patient is supposed to have have biopsy done 12/27. Patient was told to call PCP to see if something can be ordered to relax patient before procedure? Pharmacy is [facility]. Please review and advise, Petty Stack RN [facility]06-11-2025 Telephone encounter Note* Telephone Encounter - Cristian Adame MD - 12/20/2024 11:53 AM EDT Rx sent [facility]06-11-2025 Miscellaneous Notes* Telephone Encounter - Cristian Adame MD - 12/20/2024 11:53 AM EDT Rx sent * Telephone Encounter - Monserrat Alcantara RN - 12/20/2024 9:33 AM EDT Trudy- significant other- phoned asking pcp to also refill zofran. Reports pt only has 1 pill leftof each of the pended medications. Trudy asking pcp office to phone pt to let him know when Rx's have been sent to the pharmacy. [phone] * Telephone Encounter - Petty Stack RN - 12/20/2024 8:26 AM EDT Patient's significant other calling for refills on pain medications. Significant other states that Dr. Adame had told patient to call in when [...] 20, 2024 8:27 AM documented in this encounterProtestant Hospital06-11-2025 Telephone encounter Note * Telephone Encounter - Monserrat Alcantara RN - 12/20/2024 9:33 AM EDT Trudy- significant other- phoned asking pcp to also refill zofran. Reports pt only has 1 pill leftof each of the pended medications. Trudy asking pcp office to phone pt to let him know when Rx's have been sent to the pharmacy. [phone] [facility]06-11-2025 Telephone encounter Note* Telephone Encounter - Petty Stack RN - 12/20/2024 8:26 AM EDT Patient's significant other calling for refills on pain medications. Significant other states that Dr. Adame had told patient to call in when [...] Stack RN December 20, 2024 8:27 AM [facility]06-10-2025 Telephone encounter Note* Telephone Encounter - Nupur Green MA - 12/19/2024 11:38 AM EDT Mychart message sent [facility]06-10-2025 Miscellaneous Notes* Telephone Encounter - Nupur Green MA - 12/19/2024 11:38 AM EDT Mychart message sent * Telephone Encounter - Cristian Adame MD - 12/19/2024 8:40 AM EDT Urine culture are still pending. Anemic-folate is low. Iron appears low but is likely more (due to low tibc) related to the nodules he is getting biopsied-an anemia of chronic disease, Do ifobt Add iron to be on safe side and folate Recheck labs in one month. documented in this encounterProtestant Hospital06-10-2025 Telephone encounter Note * Telephone Encounter - Cristian Adame MD - 12/19/2024 8:40 AM EDT Urine culture are still pending. Anemic-folate is low. Iron appears low but is likely more (due to low tibc) related to the nodules he is getting biopsied-an anemia of chronic disease, Do ifobt Add iron to be on safe side and folate Recheck labs in one month. [facility]06-09-2025 Telephone encounter Note* Telephone Encounter - Raiza Rodrigez LPN - 12/18/2024 12:33 PM EDT Patient notified. Has urine test to bring back to lab. [facility]06-09-2025 Miscellaneous Notes* Telephone Encounter - Raiza Rodrigez LPN - 12/18/2024 12:33 PM EDT Patient notified. Has urine test to bring back to lab. * Telephone Encounter - Cristian Adame MD - 12/18/2024 12:07 PM EDT Still needs to come into labs and get their urine test. UA and C and s He is slightly anemic. Sodium is low. Recheck anemic labs and sodium. documented in this encounterProtestant Hospital06-09-2025 Telephone encounter Note * Telephone Encounter - Cristian Adame MD - 12/18/2024 12:07 PM EDT Still needs to come into labs and get their urine test. UA and C and s He is slightly anemic. Sodium is low. Recheck anemic labs and sodium. [facility]06-06-2025 NoteHNO ID: [id number] Author: CRISTIAN ADAME MD Service: ? Author Type: Physician Type: Progress Notes Filed: 12/15/2024 16:41 Note Text: Hyun Elias is a 49-year-old male with a history [...] - Decreased appetite, unsure if due to "nerves." - Denies hematochezia or melena. - Reports hematuria and weak urinary stream. Weight Loss: - Weight decreased from 178 lbs in October of last year to 160 lbs currently. - Decreased appetite, unsure if due to "nerves." Night Sweats: - Reports waking up "drenched" with night sweats, accompanied by an odor. - Denies cough. Diabetes Mellitus: - Not taking Metformin, reports it "doesn't even cross my mind." - Concerns about potential cardiac risks from [...] Yes Frequency: 2.0 times per week Comment: Manti per patient Reviewed current medications, allergies, past [...] lb) 11/22/2024 74.8 kg (more content not included)...[facility] 12-15-2024 History of Present illness Narrative* Cristian Adame MD - 12/15/2024 4:38 PM EDT Hyun Elias is a 49-year-old male with a history of DM, presenting for opioid management andevaluation of abdominal pain, weight loss, and night sweats. HPI Opioid Management: - Taking opioids for pain management. - Brought medication bottles for verification. - Reports occasional marijuana use. Discussed risks of mixing the two. Again is being worked up forlikelky metastatic malignancy. Abdominal Pain: - Left-sided abdominal pain, initially evaluated in the ED on 11/22/2024. - CT scan revealed numerous pulmonary nodules, mediastinal and hilar lymphadenopathy, a small righthepatic low hypodensity, and a large centrally necrotic retroperitoneal and gastric area of lymphadenopathy. - Biopsy initially scheduled for 12/12/2024, rescheduled to 12/27/2024. - Pain has shifted slightly; associated with constipation, no bowel movement for 5-6 days. - Denies abdominal distension. - Reports nausea and emesis when using marijuana. - Decreased appetite, unsure if due to "nerves." - Denies hematochezia or melena. - Reports hematuria and weak urinary stream. Weight Loss: - Weight decreased from 178 lbs in October of last year to 160 lbs currently. - Decreased appetite, unsure if due to "nerves." Night Sweats: - Reports waking up "drenched" with night sweats, accompanied by an odor. - Denies cough. Diabetes Mellitus: - Not taking Metformin, reports it "doesn't even cross my mind." - Concerns about potential cardiac risks from [...] Yes Frequency: 2.0 times per week Comment: Manti per patient Reviewed current medications, allergies, past medical history, surgical history, family history andsocial history today. REVIEW OF SYSTEMS Constitutional: (+) unintentional weight loss, (+) decreased appetite, (+) night sweats, (-) fever,(-) chills Cardiovascular: (+) chest pain Respiratory: (-) [...] Vaccine(1 of 2) Never done Covid-19 Vaccine( - season) Never done LAB REVIEWED: Labs: Tests: [...] and large centrally necrotic retroperitoneal and gastric lymphadenopathy,suggestive of primary lung cancer with metastatic disease. [...] likely secondary to opioid use. - Recommended [id number] stool softeners such as Miralax or Colace. [...] summary for additional instructions to patient) Cristian Adame MD Recording using [employer] software for draft documentation of the visit was discussed with the patient/authorized transportation services representative; all questions welcomed and answered. Patient/authorized transportation services representative agreed to proceed documented in this encounterProtestant Hospital06-06-2025 History of Present illness Narrative* Javier Romero RT([place]) - 12/15/2024 3:20 PM EDT Radiology Service Progress Note PATIENT NAME: Hyun Elias DATE OF SERVICE: December 15, 2024 TIME: 3:14 PM PATIENT IDENTITY VERIFICATION COMPLETED USING TWO (2) IDENTIFIERS: Name and Date of confirmedby patient verbally. FALL SCREENING: Has the patient had 2 falls in the last year or 1 fall with injury or currently using an Ambulatory Assistive Device (Walker, Cane, Wheelchair, Crutches, etc.)? No PATIENT GENDER DATA: Assigned male at PATIENT RELEVANT IMPLANT DATA REVIEWED: Not Applicable PATIENT PRESENTS WITH AN IMPLANTABLE OR ATTACHED [employer]ULT[employer] PROJECT MANAGER: No RADIOLOGY DEPARTMENT: General X-ray: Exam(s) Completed: Abdomen X-Ray: Abdomen PERIPHERAL IV DATA: Not applicable SIGNED BY: MARY Guthrie) December 15, 2024 3:14 PM documented in this encounterProtestant Hospital06-06-2025 NoteHNO ID: [id number] Author: JAVIER ROMERO RT(R) Service: Radiology Author Type: Technologist Type: Progress Notes Filed: 12/15/2024 15:24 Note Text: Radiology Service Progress Note PATIENT NAME: Hyun Elias DATE OF SERVICE: December 15, 2024 TIME: [...] PATIENT PRESENTS WITH AN IMPLANTABLE OR ATTACHED MULT[employer] PROJECT MANAGER: No RADIOLOGY DEPARTMENT: General X-ray: Exam(s) Completed: Abdomen X-Ray: Abdomen PERIPHERAL IV DATA: Not applicable SIGNED BY: Javier Romero RT(R) December 15, 2024 3:14 [facility]06-06-2025 Instructions* Patient Instructions* Cristian Adame MD - 12/15/2024 2:51 PM EDT - Continue your current opioid pain medication as prescribed; obtain refills only from this office and avoid using other opioids or illegal drugs. You have nine pills left--call when you re close to running out. - Start a stool softener (for example, Miralax or Colace) with your pain medication to help relieveconstipation. - Provide a urine sample for a [...] to reassess your pain control and opioid use;call our office to set the date when you need your next refill. documented in this encounterProtestant Hospital05-20-2025 Telephone encounter Note * Telephone Encounter - Petty Stack RN - 11/28/2024 8:47 AM EDT Patient's significant other calls and is asking if provider can send in prescription for zofran. Bottle reads take 4 mg q8h prn for nausea. Patient was prescribed this when he was in ER. .Please review and advise, Petty Stack RN [facility]05-20-2025 Miscellaneous Notes* Telephone Encounter - Petty Stack RN - 11/28/2024 8:47 AM EDT Patient's significant other calls and is asking if provider can send in prescription for zofran. Bottle reads take 4 mg q8h prn for nausea. Patient was prescribed this when he was in ER. .Please review and advise, Petty Stack RN documented in this encounterProtestant Hospital05-15-2025 Telephone encounter Note * Telephone Encounter - Monserrat Alcantara RN - 11/23/2024 11:03 AM EDT GirlienTrudy julian, phoned for message with patient present. Given provider's message below. Rhondastates patient thought his blood sugars were good and just stopped taking the metformin. States patient will start taking metformin again. Patient states he still has metformin and will let pcp know when he runs out. [facility]05-15-2025 Miscellaneous Notes* Telephone Encounter - Monserrat Alcantara RN - 11/23/2024 11:03 AM EDT Trudy Martinez, phoned for message with patient present. Given provider's message below. Rhondastates patient thought his blood sugars were good and just stopped taking the metformin. States patient will start taking metformin again. Patient states he still has metformin and will let pcp know when he runs out. * Telephone Encounter - Raiza Rodrigez LPN - 11/23/2024 10:57 AM EDT Left message to call and speak with nurse. * Telephone Encounter - Cristian Adame MD - 11/23/2024 9:57 AM EDT Sugars are up. He should still be on metformin. Is there a reason he is not taking it? documented in this encounterProtestant Hospital05-15-2025 Telephone encounter Note * Telephone Encounter - Raiza Rodrigez LPN - 11/23/2024 10:57 AM EDT Left message to call and speak with nurse. [facility]05-15-2025 Telephone encounter Note* Telephone Encounter - Cristian Adame MD - 11/23/2024 9:57 AM EDT Sugars are up. He should still be on metformin. Is there a reason he is not taking it? [facility]05-14-2025 NoteHNO ID: [id number] Author: CRISTIAN ADAME MD Service: ? Author Type: Physician Type: Progress Notes Filed: 11/22/2024 11:31 Note Text: Patient presents with: ER F/U HPI: Patient presents today for office visit for ER FOLLOW UP: Reason for visit: Abdominal pain, left sided Which facility: [facility] Date of visit: 11/12/24 Diagnosis: Lymphadenopathy Testing done: Labs and CT scan.Treatment given: IV fluids, antinausea and pain meds Current symptoms: Having chest pain currently. Mentions a strange odor he's had since . Ct of chest/abd/pelvis Showed "innumerable pulmonary nodules throughout both lungs, with mediastinal and hilar lymphadenopathy, most compatible with primary lung neoplasm and marielena metastatic disease. Pulmonary metastases or lymphoma are additional considerations. Small right hepatit lobe hypodensity and large centrally necrotic retroperitoneal and gastric lymphadenopathy, compatible to hepatic and marielena metastatic disease. The ER doc in [facility] referred to [facility]. Has been seen by [facility] on 11/14. They are going to [...] Yes Frequency: 2.0 times per week Comment: Manti per patient Reviewed current medications, allergies, past medical history, surgical history, family history and social history today. REVIEW OF SYSTEMS All other reviewed and negative other than HPI. VITALS: BP 108/86 Pulse 100 Ht 177.8 cm (5' 10") Wt 74.8 kg (165 lb) SpO2 96% [...] will be worsened because (more content not included)...[facility]05-14-2025 History of Present illness Narrative* Cristian Adame MD - 11/22/2024 10:44 AM EDT Patient presents with: ER F/U HPI: Patient presents today for office visit for ER FOLLOW UP: Reason for visit: Abdominal pain, left sided Which facility: [facility] Date of visit: 11/12/24 Diagnosis: Lymphadenopathy Testing done: Labs and CT scan.Treatment given: IV fluids, antinausea and pain meds Current symptoms: Having chest pain currently. Mentions a strange odor he's had since . Ct of chest/abd/pelvis Showed "innumerable pulmonary nodules throughout both lungs, with mediastinal and hilar lymphadenopathy, most compatible with primary lung neoplasm and marielena metastatic disease. Pulmonary metastases or lymphoma are additional considerations. Small right hepatit lobe hypodensity and large centrally necrotic retroperitoneal and gastric lymphadenopathy, compatible to hepatic and marielena metastatic disease. The ER doc in [facility] referred to [facility]. Has been seen by [facility] on 11/14. They are going to [...] Yes Frequency: 2.0 times per week Comment: Manti per patient Reviewed current medications, allergies, past medical history, surgical history, family history andsocial history today. REVIEW OF SYSTEMS All other reviewed and negative other than HPI. VITALS: BP 108/86 Pulse 100 Ht 177.8 cm (5' 10") Wt 74.8 kg (165 lb) SpO2 96% [...] 785.6, ICD10: R59.0 - as above. 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 acute Jan 11:16am Nicotine abuse chronic January 18, 2025 11:16am [facility] Work Phone: 1(608) 567-459505-06-2025 Evaluation note* Diagnosis Onset Date Resolution Status Admit Date Abnormal screening computed tomography (CT) of chest acute November 10:48am Multiple lung nodules on CT acute November 14, 2024 10:48am 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 acute Jan 11:16am Unintentional weight loss acute January 18, 2025 11:16am Nicotine abuse chronic January 18, 2025 11:16am NSCLC metastatic to bone acute February 12, 2025 1:40pm NSCLC metastatic to liver acute February 12, 2025 1:40pm 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 acut e February 12, 2025 1:40pm 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 acute Aug us2024 1:40pm [facility] Work Phone: 1(491) 442-507605-06-2025 Evaluation note* Diagnosis Onset Date Resolution Status Admit Date Abnormal screening computed tomography (CT) of chest acute November 10:48am Multiple lung nodules on CT acute November 14, 2024 10:48am 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 acute Jan 11:16am Unintentional weight loss acute January 18, 2025 11:16am Nicotine abuse chronic January 18, 2025 11:16am NSCLC metastatic to bone acute February 12, 2025 1:40pm NSCLC metastatic to liver acute February 12, 2025 1:40pm 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 acut e February 12, 2025 1:40pm 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 acute Aug us2024 1:40pm Encounter for education acute A ugust 2024 4:10pm NSCLC metastatic to bone acute February 13, 2025 4:10pm NSCLC metastatic to liver acute February 13, 2025 4:10pm 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 acut e February 13, 2025 4:10pm 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 acute Aug ust 2024 4:10pm [facility] Work Phone: 1([phone]) 395-307905-06-2025 Evaluation note* Diagnosis Onset Date Resolution Status Admit Date Abnormal screening computed tomography (CT) of chest acute November 10:48am Multiple lung nodules on CT acute November 14, 2024 10:48am 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 acute Jan 11:16am Unintentional weight loss acute January 18, 2025 11:16am Nicotine abuse chronic January 18, 2025 11:16am NSCLC metastatic to bone acute February 12, 2025 1:40pm NSCLC metastatic to liver acute February 12, 2025 1:40pm 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 acut e February 12, 2025 1:40pm 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 acute Aug ust 2024 1:40pm Encounter for education acute A ugust 2024 4:10pm NSCLC metastatic to bone acute February 13, 2025 4:10pm NSCLC metastatic to liver acute February 13, 2025 4:10pm 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 acut e February 13, 2025 4:10pm 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 acute Aug ust 2024 4:10pm Encounter for adjustment and management of vascular access device acute February 15, 2025 1:59pm [facility] Work Phone: [phone] Evaluation note* Diagnosis Onset Date Resolution Status Admit Date Abnormal screening computed tomography (CT) of chest acute November 10:48am Multiple lung nodules on CT acute November 14, 2024 10:48am 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 acute Jan 11:16am Unintentional weight loss acute January 18, 2025 11:16am Nicotine abuse chronic January 18, 2025 11:16am NSCLC metastatic to bone acute February 12, 2025 1:40pm NSCLC metastatic to liver acute February 12, 2025 1:40pm 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 acut e February 12, 2025 1:40pm 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 acute Aug ust 2024 1:40pm Encounter for education acute A ugust 2024 4:10pm NSCLC metastatic to bone acute February 13, 2025 4:10pm NSCLC metastatic to liver acute February 13, 2025 4:10pm 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 acut e February 13, 2025 4:10pm 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 acute Aug ust 2024 4:10pm Encounter for adjustment and management of vascular access device acute February 15, 2025 1:59pm Encounter for antineoplastic chemotherapy and immunotherapy acute A ugust 2024 7:34am Hyponatremia acute March 01, 2025 7:34am NSCLC metastatic to bone acute March 01, 2025 7:34am NSCLC metastatic to liver acute March 01, 2025 7:34am 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 acut e March 01, 2025 7:34am 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 acute Aug ust 2024 7:34am Hypoxia acute March 07, 2 025 10:21am Shortness of breath acute Augus t 2024 10:21am 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 acute Aug ust 2024 10:21am COPD (chronic obstructive pulmonary disease) chronic March 07, 2025 10:21am Nicotine abuse chronic February 10:21am [facility] Work Phone: [phone]) 828-171105-06-2025 Evaluation note* Diagnosis Onset Date Resolution Status Admit Date Abnormal screening computed tomography (CT) of chest acute November 10:48am Multiple lung nodules on CT acute November 14, 2024 10:48am Unintentional weight loss acute January 18, 2025 11:16am Nicotine abuse chronic January 18, 2025 11:16am 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 chronic Jan 11:16am 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 acut e February 12, 2025 1:40pm NSCLC metastatic to bone chronic February 12, 2025 1:40pm NSCLC metastatic to liver chronic February 12, 2025 1:40pm 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 chronic Feb us2024 1:40pm Encounter for education acute A ugust 2024 4:10pm 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 acut e February 13, 2025 4:10pm NSCLC metastatic to bone chronic February 13, 2025 4:10pm NSCLC metastatic to liver chronic February 13, 2025 4:10pm 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 chronic Feb us2024 4:10pm Encounter for adjustment and management of vascular access device acute February 15, 2025 1:59pm Encounter for antineoplastic chemotherapy and immunotherapy acute A ugust 2024 7:34am Hyponatremia acute March 01, 2025 7:34am 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 acut e March 01, 2025 7:34am NSCLC metastatic to bone chronic March 01, 2025 7:34am NSCLC metastatic to liver chronic March 01, 2025 7:34am 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 chronic Aug ust 2024 7:34am Hypoxia acute March 07, 2 025 10:21am Shortness of breath acute Augus 2024 10:21am COPD (chronic obstructive pulmonary disease) chronic March 07, 2025 10:21am Nicotine abuse chronic February 10:21am 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 Advised ER now. Patient agreeable to call squad and be seen at [facility]. Marshall Tran RN [facility]05-01-2025 Miscellaneous Notes* Telephone Encounter - Marshall Tran RN - 11/09/2024 12:27 PM EDT See triage. Advised ER now. Patient agreeable to call squad and be seen at [facility]. Marshall Tran RN * Telephone Encounter - Monserrat Alcantara RN - 11/09/2024 11:52 AM EDT Girlfriend, Trudy, reports pt has been having [...] his symptoms. Girlfriend agreeable. [facility] Telephone encounter Note * Telephone Encounter - [...] fever, difficulty breathing, cough Protocols used: Chest Ujux-TORFL-AQ [facility]05-01-2025 Miscellaneous Notes* Telephone Encounter - Marshall Tran [...] fever, difficulty breathing, cough Protocols used: Chest Gqsu-YCFZF-US documented in this encounterProtest[facility]05-[facility]-2025 Telephone encounter Note * Telephone Encounter - Monserrat Alcantara RN - 11/09/2024 11:52 AM EDT Girlfriend, Trudy, reports pt has been having [...] we can triage his symptoms. Girlfriend agreeable. [facility]03-26-2025 Telephone encounter Note* Telephone Encounter - Anna [...] Anton LPN October 04, 2024 8:15 AM [facility]03-26-2025 Miscellaneous Notes* Telephone Encounter - Anna Anton [...] 04, 2024 8:15 AM documented in this encounterProtest[facility]08-07-[facility]24 Telephone encounter Note * Telephone Encounter - Betty Poe LPN - 02/16/2024 9:05 AM EDT Spoke with pt and information listed below given. Pt verbalizes understanding. 3 month FU apt booked and pt requested an apt reminder be mailed to him. Done. Betty Poe LPN [facility]08-07[facility]24 Miscellaneous Notes* Telephone Encounter - Betty Poe LPN - 02/16/2024 9:05 AM EDT Spoke with pt and information listed below given. Pt verbalizes understanding. 3 month FU apt booked and pt requested an apt reminder be mailed to him. Done. Betty Poe LPN * Telephone Encounter - Cristian Adame MD - 02/16/2024 8:03 AM EDT Sugars remain in diabetic range. Start the metformin he has at home. Follow up in three months. His lipids are right on the border with a 7.4% heart disease risk. If he wants to watch the cholesterol in his diet, we can recheck it down the road and hold on adding meds. documented in [facility] encounterProtest[facility]08-07-2024 Telephone encounter Note * Telephone Encounter - Cristian Adame MD - 02/16/2024 8:03 AM EDT Sugars remain in diabetic range. Start the metformin he has at home. Follow up in three months. His lipids are right on the border with a 7.4% heart disease risk. If he wants to watch the cholesterol in his diet, we can recheck it down the road and hold on adding meds. [facility]08-05-2024 History of Present illness Narrative* Cristian Adame MD - 02/14/2024 2:30 PM EDT Patient [...] SURGICAL HISTORY OF Comment: ORIF arm fracture 1995: PAST SURGICAL HISTORY OF Comment: Reconstruction of [...] Yes Frequency: 2.0 times per week Comment: Manti per patient Reviewed current medications, allergies, past [...] V79.8, ICD10: Z13.39 - ANXIETY SCREENING Cristian Adame MD RTO in six months or prn. documented in this encounterProtest[facility] Hospital07-30-2024 Telephone encounter Note * Telephone Encounter - Monserrat Alcantara RN - 02/08/2024 4:27 PM EDT Significant other, Trudy, reports patient wants an appt with Dr. Adame only. Reports patient just saw Dr. Adame's associate, and she prescribed medications for him and he would like to discuss these medications with Dr. Adame. Trudy states patient is confused about why he is prescribed these. Scheduled appt. [facility]-30-2024 Miscellaneous Notes* Telephone Encounter - Monserrat Alcantara RN - 02/08/2024 4:27 PM EDT Significant other, Trudy, reports patient wants an appt with Dr. Adame only. Reports patient just saw Dr. Adame's associate, and she prescribed medications for him and he would like to discuss these medications with Dr. Adame. Trudy states patient is confused about why he is prescribed these. Scheduled appt. documented in this encounterProtest[facility] Hospital05-20-2024 Telephone encounter Note * Telephone Encounter - Raiza Rodrigez LPN - 11/29/2023 9:17 AM EDT Explained to and she verbalizes understanding. [facility]05-20-2024 Miscellaneous Notes* Telephone Encounter - Raiza Rodrigez LPN - 11/29/2023 9:17 AM EDT Explained to and she verbalizes understanding. * Telephone Encounter - Gilda Noonan APRN.SPECIALTY TRIMMER - 11/29/2023 9:02 AM EDT Please have [...] take. Sagrario Caldwell LPN documented in this encounterProtestant Hospital05-20-2024 Telephone encounter Note * Telephone Encounter - Gilda Noonan APRN.CNS - 11/29/2023 9:02 AM EDT Please [...] was ordered and is at his pharmacy. [facility]05-20-2024 Telephone encounter Note* Telephone Encounter - Sagrario Caldwell LPN - 11/29/2023 8:14 AM EDT Last OV: 11/01/23 - prescribed Crestor 5 mg daily. Pt's SO, Trudy calls to report that pt has been having MACK's ever since starting Crestor. Asking ifthere is a different medication pt can take. Sagrario Caldwell LPN [facility]04-24-2024 Telephone encounter Note* Telephone Encounter - Yolande Hines APRN.CNP - 11/03/2023 9:57 AM EDT Noted. Orders signed. Yolande Hines APRN.PRAFUL [facility] Work Phone: [phone] 609-161704-24-2024 Miscellaneous Notes* Telephone Encounter - Yolande Hines [...] Soler RN * Telephone Encounter - Gilda Noonan APRN.CNS - 11/01/2023 5:24 PM EDT Please [...] wecan check on labs. documented in this encounterProtestant Hospital04-23-2024 Telephone encounter Note * Telephone Encounter - [...] for provider to sign. Cecily Soler RN [facility]04-22-2024 Telephone encounter Note* Telephone Encounter - Gilda Noonan APRN.CNS - 11/01/2023 5:24 PM EDT Please [...] months so that wecan check on labs. [facility]04-22-2024 Instructions* Patient Instructions* Gilda Noonan APRN.CNS - 11/01/2023 10:52 AM EDT 1) Get labs today 2) Rabeprazole reordered 3) Azithromycin 2 tab today then 1 daily until gone for pharyngitis 4) Triamcinolone ointment 2 x day to chest 5) Follow up yearly documented in this encounterProtestant Hospital04-22-2024 History of Present illness Narrative* Gilda Noonan APRN.CNS - 11/01/2023 10:31 AM EDT This is a 48 year old male who presents today with: Patient presents with: Follow Up: Overdue Rash: Red, raised spots on chest HISTORY OF PRESENT ILLNESS: Hyun Elias is a 48 year old male. Patient [...] Yes Frequency: 2.0 times per week Comment: Manti per patient REVIEW OF SYSTEMS GENERAL: No [...] or as needed for worsening/no improvement. Gilda Noonan APRN.CNS The patient indicates understanding of these issues and agrees with the plan. documented in this encounterProtestant Hospital04-17-2024 Miscellaneous Notes* Telephone Encounter - Kenna Conley - 10/27/2023 3:22 PM EDT Opened in error. Kenna Robertson documented in this encounterProtestant Hospital03-30-2023 Miscellaneous Notes* Telephone Encounter - Arline Jina - 10/08/2022 2:36 PM EDT Patient has [...] once daily. Please review and advise. Arline Jina documented in this encounterProtestant Hospital06-21-2022 History of Present illness Narrative* Cristian Adame MD - 12/30/2021 4:24 PM EDT Patient [...] Yes Frequency: 2.0 times per week Comment: Manti per patient Reviewed current medications, allergies, past [...] Z12.11 - CONSULT TO GENERAL SURGERY Cristian Adame Medical Decision Making: Problems: Moderate: New problem with uncertain prognosis Data: Unique test(s) ordered: 3+ Medical Decision Making Level: 4 - Moderate documented in this encounterProtestant Hospital10-28-2011 History of Past illness Narrative* Problem Noted Date Resolved Date Benign localized hyperplasia of prostate without urinary obstruction and other lower urinary tract symptoms (LUTS) 05/08/2011 05/08/2011 Depressive disorder, not elsewhere classified 05/27/2018 documented as of this encounter (statuses as of 12/30/2021) [facility] History of Past illness Narrative* Problem Noted Date Resolved Date Benign localized hyperplasia of prostate without urinary obstruction and other lower urinary tract symptoms (LUTS) 05/08/2011 05/08/2011 Depressive disorder, not elsewhere classified 05/27/2018 documented as of this encounter (statuses as of 10/08/2022) [facility] History of Past illness Narrative* Problem Noted Date Diagnosed Date Resolved Date Benign localized hyperplasia of prostate without urinary obstruction and other lower urinary tract symptoms (LUTS) 05/08/2011 05/08/2011 Depressive disorder, not elsewhere classified 05/09/20 08 05/27/2018 documented as of this encounter (statuses as of 10/28/2023) [facility] HospitalConsult note Author Ana Viramontes [facility] Note Date/Time February 20, 2025 11 :36am [facility] Medical Records Department [address] [place] [address] Anesthesia Postop Eval I 02/20/25 1135 MR#: [id number] Acct: [id number] Name: HYUN ELIAS Rep #:[id number] : 1975 49 From: Ana Laguerre ki [employer]ACHINE [employer]ER PCP: Dr. Cristian Adame MD Status:REG S DC Y Race: C Location: [place] [address] Anesthesia: Postop Eval I Current Vital Signs Temperature: 97.7 F Pulse Rate: 102 Blood Pressure: 92/70 Respiratory Rate: 16 Pulse Ox: 96 Oxygen Delivery Method: Room Air Assessment Airway patent: Yes Spontaneous unlabored respirations: Yes Mental status: Awake and Calm nausea: No Vomiting: No Anesthesia Complication: No Fluid Hydration Crystalloid volume administer (ml): 400 Total IV fluid infused: 400 Progress Note Anesthesia document: Postop Eval 1 completed: Yes 02/20/25 1136 <Electronically signed by Ana graves CRNA> Date _ Ana Viramontes CRNA Cosigner Signature: Date CC: ~ Signed [facility] Work Phone: Discharge summary Author Hernan Vincent [facility] Note Date/Time February 20, 2025 11 :32am [facility] Medical Records Department [address] [place] [address] Instructions for Home/Discharge Instructions 02/20/25 1131 MR#: [id number] Acct: [id number] Name: HYUN ELIAS Rep #:[id number] : 1975 49 From: Hernan guerrero MD PCP: Dr. Cristian Adame MD Status:REG S DC Discharge Instructions Procedure Port-A-Cath Diet Discharge Diet: Light diet - advance as tolerated (Pain medication may cause nausea. You should typically eat light foods as you take your pain medication.) Activity Discharge Activity: Return to Normal Activity and May Shower (with your bandage in place in 1-2 days after surgery. DO NOT SHOWER WHEN YOUR PORT IS ACCESSED.) Additional Activity Instructions:: Alternate ibuprofen and Tylenol for pain control Dressing / Incision Call your doctor if your incision/area has: Continuous Slow Oozing, Sudden Increased Bleeding, Increased Pain/ Swelling, Increased Redness and Foul Smelling Discharge Call your doctor if you observe: Fever of 101 or Higher Remove Dressing in: 2 days Cleanse incision/area with: Soap & Water Follow Up Care Please Follow Up With: Hernan Vincent MD When: as needed [phone] Test Results: Test results from this visit will be discussed in further detail at your follow- up appointment, if applicable. Discharge Plan Admission Attending Provider: Hernan Vincent Primary Care Provider: Cristian Adame Instructions Print Language: Serbian Discharge Orders/Prescriptions Prescriptions: No Action folic acid 1 mg tablet 1 mg PO QDAY ondansetron 4 mg tablet,disintegrating 4 mg PO Q8H PRN PRN (Reason: Nausea) metformin 500 mg tablet extended release 24 hr 1,000 mg PO QDAY lidocaine-prilocaine 2.5-2.5 % cream 1 applic topical ONCE PRN (Reason: port access) 30 Days Qty: 30 2RF dexamethasone 4 mg tablet 8 mg PO .COMPLEX Qty: 30 2RF Rx Instructions: 8 mg orally ONLY on days 2 & 3 of chemotherapy cycle rabeprazole [AcipHex] 20 MG tablet 20 mg PO DAILY oxycodone 5 mg tablet 5 mg PO Q6H PRN (Reason: pain) 3 Days Qty: 12 0RF Referrals / Follow Up: Cristian Adame MD [Primary Care Provider] - Disposition Disposition (needs filled in before D/C Order can be placed): Home, Self Care 02/20/25 1132<Electronically signed by Hernan Vincent MD>Hernan Vincent MD CC: Dr. Cristian Adame MD ~ Signed [facility] Work Phone: Evaluation note* Diagnosis Paresthesia- Primary Disturbance of skin sensation Screening for colon cancer Special screening for malignant neoplasms, colon [facility] Diagnosis Screening for colon cancer- Primary Special screening for malignant neoplasms, colon Hiatal hernia Diaphragmatic hernia without mention of obstruction or gangrene Screening for diabetes mellitus Screening for lipid disorders Chronic pain of both knees Tobacco abuse Tobacco use disorder Acute pharyngitis due to other specified organisms Allergic contact dermatitis due to other agents documented in this encounter [facility]* Diagnosis Controlled type 2 diabetes mellitus without complication, without long-term current use of insulin (HCC)- Primary Hyperlipidemia, mixed Mixed hyperlipidemia [facility]* Diagnosis Dyslipidemia- Primary Other and unspecified hyperlipidemia documented in this encounter [facility] note* Diagnosis Controlled type 2 diabetes mellitus without complication, without long-term current use of insulin (HCC)- Primary Hyperlipidemia, mixed Mixed hyperlipidemia Tobacco abuse Tobacco use disorder Screening for prostate cancer Special screening for malignant neoplasm of prostate Encounter for screening examination for other mental health and behavioral disorders [facility] this [facility]* Diagnosis Controlled type 2 diabetes mellitus without complication, without long-term current use of insulin (HCC) [facility]* Diagnosis Lung nodules- Primary Other nonspecific abnormal finding of lung field Controlled type 2 diabetes mellitus without complication, without long-term current use of insulin (HCC) Hyperlipidemia, mixed Mixed hyperlipidemia Tobacco abuse Tobacco use disorder Lymphadenopathy, abdominal Enlargement of lymph nodes Hilar lymphadenopathy Enlargement of lymph nodes [facility] Diagnosis Hilar lymphadenopathy- Primary Enlargement of lymph nodes Medication monitoring encounter Encounter for therapeutic drug monitoring Lymphadenopathy, abdominal Enlargement of lymph nodes Lung nodules Other nonspecific abnormal finding of lung field Chest wall pain Painful respiration Tobacco abuse Tobacco use disorder Gross hematuria Acute constipation Unspecified constipation Night sweats Generalized hyperhidrosis Acute constipation Unspecified constipation [facility]* Diagnosis Acute constipation Unspecified constipation [facility]* Diagnosis Anemia, unspecified type- Primary [facility]* Diagnosis Anemia, unspecified type- Primary Folic acid deficiency Other B-complex deficiencies [facility]* Diagnosis Lymphadenopathy, abdominal- Primary Enlargement of lymph nodes Chest wall pain Painful respiration Hilar lymphadenopathy Enlargement of lymph nodes Lung nodule Solitary pulmonary nodule [facility]* Diagnosis Anxiety- Primary Anxiety state, unspecified [facility]* Diagnosis Lymphadenopathy, abdominal Enlargement of lymph nodes Chest wall pain Painful respiration Hilar lymphadenopathy Enlargement of lymph nodes Lung nodule Solitary pulmonary nodule [facility]* Diagnosis Generalized abdominal pain- Primary Abdominal pain, generalized [facility]* Diagnosis Generalized abdominal pain Abdominal pain, generalized [facility]* Diagnosis Lymphadenopathy, abdominal Enlargement of lymph nodes Chest wall pain Painful respiration Hilar lymphadenopathy Enlargement of lymph nodes Lung nodule Solitary pulmonary nodule [facility]* Diagnosis 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, unspecified laterality (HCC)- Primary Generalized abdominal pain Abdominal pain, generalized [facility]* Diagnosis Dysuria- Primary Controlled type 2 diabetes mellitus without complication, with long-term current use of insulin (HCC) Acute constipation Unspecified constipation Malignant neoplasm of lower lobe of lung, unspecified laterality (HCC) [facility] this [facility]* Diagnosis Controlled type 2 diabetes mellitus without complication, without long-term current use of insulin (HCC)- Primary [facility]* Diagnosis Generalized abdominal pain Abdominal pain, generalized 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, unspecified laterality (HCC) [facility]* Diagnosis Lymphadenopathy, abdominal Enlargement of lymph nodes Chest wall pain Painful respiration Hilar lymphadenopathy Enlargement of lymph nodes Lung nodule Solitary pulmonary nodule [facility]* Diagnosis Squamous cell carcinoma of lung, unspecified laterality (HCC) Metastatic squamous cell carcinoma to bone (HCC) Secondary malignant neoplasm of bone and bone 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) Hx of known metastasis to liver Personal history of other diseases of digestive system Generalized abdominal pain Abdominal pain, generalized 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, unspecified laterality (HCC) documented [facility]* Diagnosis Acute pharyngitis, unspecified etiology- Primary Abnormal lung sounds Abnormal chest sounds 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, unspecified laterality (HCC) [facility] Discharge instructionsAmbulatory Orders* Fast Pass: Oncology Referral [facility] Location: None Selected [facility] Work Phone: Hospital Discharge instructionsAmbulatory Orders* Prior Authorization Referral - ONC/HEM Location: None Selected * General Surgery Location: None Selected [facility] Work Phone: Hospital Discharge instructionsAmbulatory Orders* Nutrition Referral - [facility] Location: None Selected [facility] Work Phone: Reason for referral (narrative)No reason for referral information availableWPremier Health [facility] Work Phone: Reason for visit Narrative* Diagnostic Procedure Only (Urgent) - Closed Specialty Diagnoses / Procedures Referred By Levi t Referred To Contact XR IMAGING Diagnoses Acute constipation Procedures XR ABDOMEN 1V SUPINE RADIOLOGIC EXAM ABDOMEN 1 VIEW Cristian Adame MD [address] [place] [address] Phone: tel: fax: XR IMAGING [id number] Referral ID Status Reason Start Date Expiration Date V isits Requested Visits Authorized [id number] Closed Auto-Generate d Referral 12/15/2024 01/14/2026 1 1 [facility] Reason for Referral Specialty Diagnoses / Procedures Referred By Levi low Referred To Contact General Surgery Diagnoses Screening for colon cancer Procedures CONSULT TO GENERAL SURGERY OFFICE/OUTPATIENT [facility] HIGH MDM 60-74 MINUTES Cristian Adame MD [address] [place] [address] Referral ID Status Reason Start Date Expiration Date Visits Requested Visits Authorized [id number] Authorized PCP Requested Referral 12/30/2021 12/30/2022 1 1 Specialty Diagnoses / Procedures Referred By Levi low Referred To [facility] Diagnoses Paresthesia Procedures EMG(NEURO/NI) NERVE CONDUCTION STUDIES 9-10 STUDIES Cristian Adame MD [address] [place] [address] [facility] [address] [place] [address] Referral ID Status Reason Start Date Expiration Date Visits Requested Visits Authorized [id number] Pending Review Auto-Generat ed Referral 12/30/2021 12/30/2022 1 1 Advance Directives Documents on File Type Date Recorded Patient Business Development Specialist Expl anation Advance Directive(s) Advance Directive Response Recorded Date/ Time Do you have a Healthcare Power of Tank Crewmember? No November 12, 2024 8:06am Advance Directive Response Recorded Date/ Time Do you have a Healthcare Power of Tank Crewmember? No February 15, 2025 3:09pm Do you have a Healthcare Power of Tank Crewmember? No November 12, 2024 8:06am Advance Directive Response Recorded Date/ Time Advance Directives No March 05, 2025 1:32pm Do you have a Healthcare Power of Tank Crewmember? No February 15, 2025 3:09pm Do you have a Healthcare Power of Tank Crewmember? No November 12, 2024 8:06am Living Will No March 01 10:18am Do you have a Healthcare Power of Tank Crewmember? No March 01, 2025 10:18am Advance Directive Response Recorded Date/ Time Do you have a Healthcare Power of Tank Crewmember? No February 15, 2025 3:09pm Do you have a Healthcare Power of Tank Crewmember? No November 12, 2024 8:06am Living Will No March 08 9:22am Do you have a Healthcare Power of Tank Crewmember? No March 08, 2025 9:22am Advance Directives No March 08, 2025 9:22am Chief Complaint and Reason for Visit Chief Complaint Admit Date abd pain November 12, 2024 8:03am Fast Pass November 14, 2024 10:48a m Reason for Visit Admit Date Abnormal screening computed tomography ( CT) of chest November 14, 2024 10:48am Multiple lung nodules on CT November 14 10:48am Chief Complaint Admit Date abd pain November 12, 2024 8:03am Fast Pass November 14, 2024 10:48a m Other nonspecific abnormal finding of maeve ng field January 04, 2025 8:47am Chief Complaint Admit Date abd pain November 12, 2024 8:03am Fast Pass November 14, 2024 10:48a m Other nonspecific abnormal finding of maeve ng field January 04, 2025 8:47am Test Result January 18, 2025 11:1 6am Reason for Visit Admit Date Abnormal screening computed tomography ( CT) of chest November 14, 2024 10:48am Multiple lung nodules on CT November 14 10:48am Squamous cell carcinoma of bronchus in r ight lower lobe January 18, 2025 11:16am Nicotine abuse January 18, 2025 11:1 6am Chief Complaint Admit Date abd pain November 12, 2024 8:03am Fast Pass November 14, 2024 10:48a m Other nonspecific abnormal finding of maeve ng field January 04, 2025 8:47am Test Result January 18, 2025 11:1 6am LUNG February 06, 2025 9:37 am LUNG CA - REVIEW PET SCAN February 12 1:40pm Reason for Visit Admit Date Abnormal screening computed tomography ( CT) of chest November 14, 2024 10:48am Multiple lung nodules on CT November 14 10:48am Squamous cell carcinoma of bronchus in r ight lower lobe January 18, 2025 11:16am Unintentional weight loss January 18 11:16am Nicotine abuse January 18, 2025 11:1 6am NSCLC metastatic to bone [facility], 202 5 1:40pm NSCLC metastatic to liver February 12 1:40pm 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 February 122024 1:40pm Squamous cell carcinoma of bronchus in r ight lower lobe February 12, 2025 1:40pm Chief Complaint Admit Date abd pain November 12, 2024 8:03am Fast Pass November 14, 2024 10:48a m Other nonspecific abnormal finding of maeve ng field January 04, 2025 8:47am Test Result January 18, 2025 11:1 6am LUNG February 06, 2025 9:37 am LUNG CA - REVIEW PET SCAN February 12 1:40pm [facility] February 13, 2025 2:2 3pm CHEMO ED February 13, 2025 4:1 0pm Reason for Visit Admit Date Abnormal screening computed tomography ( CT) of chest November 14, 2024 10:48am Multiple lung nodules on CT November 14 10:48am Squamous cell carcinoma of bronchus in r ight lower lobe January 18, 2025 11:16am Unintentional weight loss January 18 11:16am Nicotine abuse January 18, 2025 11:1 6am NSCLC metastatic to bone February 12 1:40pm NSCLC metastatic to liver February 12 1:40pm 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 February 122024 1:40pm Squamous cell carcinoma of bronchus in r ight lower lobe February 12, 2025 1:40pm Encounter for education February 13, 2025 4:10pm NSCLC metastatic to bone February 13 4:10pm NSCLC metastatic to liver February 13 4:10pm 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 February 132024 4:10pm Squamous cell carcinoma of bronchus in r ight lower lobe February 13, 2025 4:10pm Chief Complaint Admit Date abd pain November 12, 2024 8:03am Fast Pass November 14, 2024 10:48a m Other nonspecific abnormal finding of maeve ng field January 04, 2025 8:47am Test Result January 18, 2025 11:1 6am LUNG February 06, 2025 9:37 am LUNG CA - REVIEW PET SCAN February 12 1:40pm [facility] February 13, 2025 2:2 3pm CHEMO ED February 13, 2025 4:1 0pm PORT PLACEMENT February 15, 2025 1:5 9pm Reason for Visit Admit Date Abnormal screening computed tomography ( CT) of chest November 14, 2024 10:48am Multiple lung nodules on CT November 14 10:48am Squamous cell carcinoma of bronchus in r ight lower lobe January 18, 2025 11:16am Unintentional weight loss January 18 11:16am Nicotine abuse January 18, 2025 11:1 6am NSCLC metastatic to bone February 12 1:40pm NSCLC metastatic to liver February 12 1:40pm 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 February 122024 1:40pm Squamous cell carcinoma of bronchus in r ight lower lobe February 12, 2025 1:40pm Encounter for education February 13, 2025 4:10pm NSCLC metastatic to bone February 13 4:10pm NSCLC metastatic to liver February 13 4:10pm 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 February 132024 4:10pm Squamous cell carcinoma of bronchus in r ight lower lobe February 13, 2025 4:10pm Encounter for adjustment and management of vascular access device February 15, 2025 1:59pm Chief Complaint Admit Date abd pain November 12, 2024 8:03am Fast Pass November 14, 2024 10:48a m Other nonspecific abnormal finding of maeve ng field January 04, 2025 8:47am Test Result January 18, 2025 11:1 6am LUNG February 06, 2025 9:37 am LUNG CA - REVIEW PET SCAN February 12 1:40pm [facility] February 13, 2025 2:2 3pm CHEMO ED February 13, 2025 4:1 0pm PORT PLACEMENT February 15, 2025 1:5 9pm INSERTION, VASCULAR PORT RIGHT POSSIBLE LEFT February 20, 2025 9:05am INSERTION, VASCULAR PORT RIGHT POSSIBLE LEFT February 20, 2025 10:05am Chief Complaint Admit Date abd pain November 12, 2024 8:03am Fast Pass November 14, 2024 10:48a m Other nonspecific abnormal finding of maeve ng field January 04, 2025 8:47am Test Result January 18, 2025 11:1 6am LUNG February 06, 2025 9:37 am LUNG CA - REVIEW PET SCAN February 12 1:40pm CHEMO ED February 13, 2025 4:1 0pm PORT PLACEMENT February 15, 2025 1:5 9pm INSERTION, VASCULAR PORT RIGHT POSSIBLE LEFT February 20, 2025 9:05am INSERTION, VASCULAR PORT RIGHT POSSIBLE LEFT February 20, 2025 10:05am [facility] March 01, 2025 7: 34am [facility] March 01, 2025 7: 45am Chief Complaint Admit Date abd pain November 12, 2024 8:03am Fast Pass November 14, 2024 10:48a m Other nonspecific abnormal finding of maeve ng field January 04, 2025 8:47am Test Result January 18, 2025 11:1 6am LUNG February 06, 2025 9:37 am LUNG CA - REVIEW PET SCAN February 12 1:40pm CHEMO ED February 13, 2025 4:1 0pm PORT PLACEMENT February 15, 2025 1:5 9pm INSERTION, VASCULAR PORT RIGHT POSSIBLE LEFT February 20, 2025 9:05am INSERTION, VASCULAR PORT RIGHT POSSIBLE LEFT February 20, 2025 10:05am [facility] March 01, 2025 7: 34am [facility] March 01, 2025 7: 45am Acute visit March 07, 2025 10 :21am Reason for Visit Admit Date Abnormal screening computed tomography ( CT) of chest November 14, 2024 10:48am Multiple lung nodules on CT November 14 10:48am Squamous cell carcinoma of bronchus in r ight lower lobe January 18, 2025 11:16am Unintentional weight loss January 18 11:16am Nicotine abuse January 18, 2025 11:1 6am NSCLC metastatic to bone February 12 1:40pm NSCLC metastatic to liver February 12 1:40pm 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 February 122024 1:40pm Squamous cell carcinoma of bronchus in r ight lower lobe February 12, 2025 1:40pm Encounter for education February 13, 2025 4:10pm NSCLC metastatic to bone February 13 4:10pm NSCLC metastatic to liver February 13 4:10pm 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 February 132024 4:10pm Squamous cell carcinoma of bronchus in r ight lower lobe February 13, 2025 4:10pm Encounter for adjustment and management of vascular access device February 15, 2025 1:59pm Encounter for antineoplastic chemotherap y and immunotherapy March 01, 2025 7:34am Hyponatremia March 01, 2025 7: 34am NSCLC metastatic to bone March 01 7:34am NSCLC metastatic to liver March 01, 2 025 7:34am 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 February 102024 7:34am Squamous cell carcinoma of bronchus in r ight lower lobe March 01, 2025 7:34am Hypoxia March 07, 2025 10 :21am Shortness of breath March 07, 2025 10 :21am Squamous cell carcinoma of bronchus in r ight lower lobe March 07, 2025 10:21am COPD (chronic obstructive pulmonary dise ase) March 07, 2025 10:21am Nicotine abuse March 07, 2025 10 :21am Chief Complaint Admit Date abd pain November 12, 2024 8:03am Fast Pass November 14, 2024 10:48a m Other nonspecific abnormal finding of maeve ng field January 04, 2025 8:47am Test Result January 18, 2025 11:1 6am LUNG February 06, 2025 9:37 am LUNG CA - REVIEW PET SCAN February 12 1:40pm CHEMO ED February 13, 2025 4:1 0pm PORT PLACEMENT February 15, 2025 1:5 9pm INSERTION, VASCULAR PORT RIGHT POSSIBLE LEFT February 20, 2025 9:05am INSERTION, VASCULAR PORT RIGHT POSSIBLE LEFT February 20, 2025 10:05am [facility] March 01, 2025 7: 34am Acute visit March 07, 2025 10 :21am [facility] [place] March 08, 2025 7: 49am [facility] March 08, 2025 8: 15am Reason for Visit Admit Date Abnormal screening computed tomography ( CT) of chest November 14, 2024 10:48am Multiple lung nodules on CT November 14 10:48am Unintentional weight loss January 18 11:16am Nicotine abuse January 18, 2025 11:1 6am Squamous cell carcinoma of bronchus in r ight lower lobe January 18, 2025 11:16am 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 February 122024 1:40pm NSCLC metastatic to bone February 12 1:40pm NSCLC metastatic to liver February 12 1:40pm Squamous cell carcinoma of bronchus in r ight lower lobe February 12, 2025 1:40pm Encounter for education February 13, 2025 4:10pm 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 February 132024 4:10pm NSCLC metastatic to bone February 13 4:10pm NSCLC metastatic to liver February 13 4:10pm Squamous cell carcinoma of bronchus in r ight lower lobe February 13, 2025 4:10pm Encounter for adjustment and management of vascular access device February 15, 2025 1:59pm Encounter for antineoplastic chemotherap y and immunotherapy March 01, 2025 7:34am Hyponatremia March 01, 2025 7: 34am 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 February 102024 7:34am NSCLC metastatic to bone March 01 7:34am NSCLC metastatic to liver March 01 025 7:34am Squamous cell carcinoma of bronchus in r ight lower lobe March 01, 2025 7:34am Hypoxia March 07, 2025 10 :21am Shortness of breath March 07, 2025 10 :21am COPD (chronic obstructive pulmonary dise ase) March 07, 2025 10:21am Nicotine abuse March 07, 2025 10 :21am Squamous cell carcinoma of bronchus in r ight lower lobe March 07, 2025 10:21am Encounter for antineoplastic chemotherap y and immunotherapy March 08, 2025 7:49am 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 February 102024 7:49am NSCLC metastatic to bone March 08 7:49am NSCLC metastatic to liver March 08, 025 7:49am Squamous cell carcinoma of bronchus in r ight lower lobe March 08, 2025 7:49am Family History Relationship Condition Age at Onset Recorded Date/T peter mother Diabetes mellitus Unknown Malignant neoplasm Unknown father Diabetes mellitus Unknown grandmother Malignant neoplasm Unknown Summary Purpose Additional Source Comments Source Comments (unrecognize d section and content) In the event this informatio n is protected by the Federal Confidentiality of Alcohol and Drug Abuse Patient Records regulations: The Federal rules restrict any use of the information to criminally investigate or prosecute any alcohol or drug abuse patient.[facility] the event this information is protected by the Federal Confidentiality of Alcohol and Drug Abuse Patient Records regulations: The Federal rules restrict any use of the information to criminally investigate or prosecute any alcohol or drug abuse patient.[facility] HospitalIn the event this information is protected by the Federal Confidentiality of Alcohol and Drug Abuse Patient Records regulations: The Federal rules restrict any use of the information to criminally investigate or prosecute any alcohol or drug abuse patient.[facility]In the event this information is protected by the Federal Confidentiality of Alcohol and Drug Abuse Patient Records regulations: The Federal rules restrict any use of the information to criminally investigate or prosecute any alcohol or drug abuse patient.[facility] HospitalIn the event this information is protected by the Federal Confidentiality of Alcohol and Drug Abuse Patient Records regulations: The Federal rules restrict any use of the information to criminally investigate or prosecute any alcohol or drug abuse patient.[facility] HospitalIn the event this information is protected by the Federal Confidentiality of Alcohol and Drug Abuse Patient Records regulations: The Federal rules restrict any use of the information to criminally investigate or prosecute any alcohol or drug abuse patient.[facility] HospitalIn the event this information is protected by the Federal Confidentiality of Alcohol and Drug Abuse Patient Records regulations: The Federal rules restrict any use of the information to criminally investigate or prosecute any alcohol or drug abuse patient.[facility] HospitalIn the event this information is protected by the Federal Confidentiality of Alcohol and Drug Abuse Patient Records regulations: The Federal rules restrict any use of the information to criminally investigate or prosecute any alcohol or drug abuse patient.[facility] HospitalIn the event this information is protected by the Federal Confidentiality of Alcohol and Drug Abuse Patient Records regulations: The Federal rules restrict any use of the information to criminally investigate or prosecute any alcohol or drug abuse patient.[facility] HospitalIn the event this information is protected by the Federal Confidentiality of Alcohol and Drug Abuse Patient Records regulations: The Federal rules restrict any use of the information to criminally investigate or prosecute any alcohol or drug abuse patient.[facility] HospitalIn the event this information is protected by the Federal Confidentiality of Alcohol and Drug Abuse Patient Records regulations: The Federal rules restrict any use of the information to criminally investigate or prosecute any alcohol or drug abuse patient.[facility] HospitalIn the event this information is protected by the Federal Confidentiality of Alcohol and Drug Abuse Patient Records regulations: The Federal rules restrict any use of the information to criminally investigate or prosecute any alcohol or drug abuse patient.[facility] HospitalIn the event this information is protected by the Federal Confidentiality of Alcohol and Drug Abuse Patient Records regulations: The Federal rules restrict any use of the information to criminally investigate or prosecute any alcohol or drug abuse patient.[facility] HospitalIn the event this information is protected by the Federal Confidentiality of Alcohol and Drug Abuse Patient Records regulations: The Federal rules restrict any use of the information to criminally investigate or prosecute any alcohol or drug abuse patient.[facility] HospitalIn the event this information is protected by the Federal Confidentiality of Alcohol and Drug Abuse Patient Records regulations: The Federal rules restrict any use of the information to criminally investigate or prosecute any alcohol or drug abuse patient.[facility] HospitalIn the event this information is protected by the Federal Confidentiality of Alcohol and Drug Abuse Patient Records regulations: The Federal rules restrict any use of the information to criminally investigate or prosecute any alcohol or drug abuse patient.[facility] HospitalIn the event this information is protected by the Federal Confidentiality of Alcohol and Drug Abuse Patient Records regulations: The Federal rules restrict any use of the information to criminally investigate or prosecute any alcohol or drug abuse patient.[facility] HospitalIn the event this information is protected by the Federal Confidentiality of Alcohol and Drug Abuse Patient Records regulations: The Federal rules restrict any use of the information to criminally investigate or prosecute any alcohol or drug abuse patient.[facility] HospitalIn the event this information is protected by the Federal Confidentiality of Alcohol and Drug Abuse Patient Records regulations: The Federal rules restrict any use of the information to criminally investigate or prosecute any alcohol or drug abuse patient.[facility] HospitalIn the event this information is protected by the Federal Confidentiality of Alcohol and Drug Abuse Patient Records regulations: The Federal rules restrict any use of the information to criminally investigate or prosecute any alcohol or drug abuse patient.[facility] HospitalIn the event this information is protected by the Federal Confidentiality of Alcohol and Drug Abuse Patient Records regulations: The Federal rules restrict any use of the information to criminally investigate or prosecute any alcohol or drug abuse patient.[facility] HospitalIn the event this information is protected by the Federal Confidentiality of Alcohol and Drug Abuse Patient Records regulations: The Federal rules restrict any use of the information to criminally investigate or prosecute any alcohol or drug abuse patient.[facility] HospitalIn the event this information is protected by the Federal Confidentiality of Alcohol and Drug Abuse Patient Records regulations: The Federal rules restrict any use of the information to criminally investigate or prosecute any alcohol or drug abuse patient.[facility] HospitalIn the event this information is protected by the Federal Confidentiality of Alcohol and Drug Abuse Patient Records regulations: The Federal rules restrict any use of the information to criminally investigate or prosecute any alcohol or drug abuse patient.[facility] HospitalIn the event this information is protected by the Federal Confidentiality of Alcohol and Drug Abuse Patient Records regulations: The Federal rules restrict any use of the information to criminally investigate or prosecute any alcohol or drug abuse patient.[facility] HospitalIn the event this information is protected by the Federal Confidentiality of Alcohol and Drug Abuse Patient Records regulations: The Federal rules restrict any use of the information to criminally investigate or prosecute any alcohol or drug abuse patient.[facility] HospitalIn the event this information is protected by the Federal Confidentiality of Alcohol and Drug Abuse Patient Records regulations: The Federal rules restrict any use of the information to criminally investigate or prosecute any alcohol or drug abuse patient.[facility] HospitalIn the event this information is protected by the Federal Confidentiality of Alcohol and Drug Abuse Patient Records regulations: The Federal rules restrict any use of the information to criminally investigate or prosecute any alcohol or drug abuse patient.[facility] HospitalIn the event this information is protected by the Federal Confidentiality of Alcohol and Drug Abuse Patient Records regulations: The Federal rules restrict any use of the information to criminally investigate or prosecute any alcohol or drug abuse patient.[facility] HospitalIn the event this information is protected by the Federal Confidentiality of Alcohol and Drug Abuse Patient Records regulations: The Federal rules restrict any use of the information to criminally investigate or prosecute any alcohol or drug abuse patient.[facility] HospitalIn the event this information is protected by the Federal Confidentiality of Alcohol and Drug Abuse Patient Records regulations: The Federal rules restrict any use of the information to criminally investigate or prosecute any alcohol or drug abuse patient.[facility] HospitalIn the event this information is protected by the Federal Confidentiality of Alcohol and Drug Abuse Patient Records regulations: The Federal rules restrict any use of the information to criminally investigate or prosecute any alcohol or drug abuse patient.[facility] HospitalIn the event this information is protected by the Federal Confidentiality of Alcohol and Drug Abuse Patient Records regulations: The Federal rules restrict any use of the information to criminally investigate or prosecute any alcohol or drug abuse patient.[facility] HospitalIn the event this information is protected by the Federal Confidentiality of Alcohol and Drug Abuse Patient Records regulations: The Federal rules restrict any use of the information to criminally investigate or prosecute any alcohol or drug abuse patient.[facility] HospitalIn the event this information is protected by the Federal Confidentiality of Alcohol and Drug Abuse Patient Records regulations: The Federal rules restrict any use of the information to criminally investigate or prosecute any alcohol or drug abuse patient.[facility] HospitalIn the event this information is protected by the Federal Confidentiality of Alcohol and Drug Abuse Patient Records regulations: The Federal rules restrict any use of the information to criminally investigate or prosecute any alcohol or drug abuse patient.[facility] HospitalIn the event this information is protected by the Federal Confidentiality of Alcohol and Drug Abuse Patient Records regulations: The Federal rules restrict any use of the information to criminally investigate or prosecute any alcohol or drug abuse patient.[facility] HospitalIn the event this information is protected by the Federal Confidentiality of Alcohol and Drug Abuse Patient Records regulations: The Federal rules restrict any use of the information to criminally investigate or prosecute any alcohol or drug abuse patient.[facility] Reason for Visit (unrecogniz ed section and [...] Refill Request 12/20/2024 Reason Comments Patient Question Reason Onset Date Comments Refill Request 01/04/2025 Reason Onset Date Comments Refill Request 01/16/2025 Reason Onset Date Comments Refill Request 01/22/2025 Reason Onset Date Comments Refill Request 01/25/2025 Reason Comments Acute Visit Elevated glucose at PET scan appointment Reason Onset Date Comments Refill Request 01/30/2025 Reason Onset Date Comments Refill Request 02/06/2025 Reason Onset Date Comments Refill Request 02/16/2025 Reason Onset Date Comments Refill Request 03/01/2025 Reason Comments Patient Update Reason Comments Acute Visit Sore throat and coug h Care Teams (unrecognized sec tion and content) Diagram Clerk Relationship Specialty Start Date End Date Cristian Adame MD [address] [place], [place] [id number] PCP - General Family Practice 10/08/14 Diagram Clerk Relationship Specialty Start Date End Date Cristian Adame MD [address] [place], [place] [id number] PCP - General Family Medicine 10/08/14 Diagram Clerk Relationship Specialty Start Date End Date Cristian Adame MD [address] [place], [place] [address] PCP - General Family Medicine 10/08/14 Diagram Clerk Relationship Specialty Start Date End Date Cristian Adame MD [address] [place], [place] [id number] PCP - General Family Medicine 10/08/14 Diagram Clerk Relationship Specialty Start Date End Date Cristian Adame MD [address] [place], [place] [address] PCP - General Family Medicine 10/08/14 Diagram Clerk Relationship Specialty Start Date End Date Cristian Adame MD [address] [place], [place] [id number] PCP - General Family Medicine 10/08/14 Diagram Clerk Relationship Specialty Start Date End Date Cristian Adame MD [address] [place], [place] [id number] PCP - General Family Medicine 10/08/14 Diagram Clerk Relationship Specialty Start Date End Date Cristian Adame MD [address] [facility] [place] [address] PCP - General Family Medicine 10/08/14 Diagram Clerk Relationship Specialty Start Date End Date Cristian Adame MD [address] [facility] [place] [address] PCP - General Family Medicine 10/08/14 Diagram Clerk Relationship Specialty Start Date End Date Cristian Adame MD [address] [facility] [place] [address] PCP - General Family Medicine 10/08/14 Yolande Hines APRN.MANUFACTURING LEADER [address] [place] [address] [employer] Family Medicine 06/19/24 Gilda Noonan APRN.MANUFACTURING LEADER [address] [facility] [place] [address] [employer] Machine Operator Family Medicine 06/19/24 Diagram Clerk Relationship Specialty Start Date End Date Cristian Adame MD [address] [place] [address] PCP - General Family Medicine 10/08/14 Yolande Hines 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 [address] [place], [place] [address] [employer] Family Medicine 06/19/24 Gilda Noonan 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 [address] [place] [address] Counts Include 234 [facility]eds At [facility] 06/19/24 Team Status: Active Member Role Status Dates Dr. Cristian Adame MD Primary Care Provider Active Team Status: Inactive Member Role Status Dates Dr. Cristian Adame MD Primary Care Provider Active Start: November 12, 2024 End: November 12, 2024 Dr. Dionicio Grimes , DO Attending Provider Active Start: November 12, 2024 End: November 12, 2024 Dr. Dionicio Grimes , DO Emergency Provider Active Start: November 12, 2024 End: November 12, 2024 Team Status: Inactive Member Role Status Dates Dr. Cristian Adame MD Primary Care Provider Active Start: November 14, 2024 End: November 14, 2024 Dr. Cristian Adame MD Referring Provider Active Start: November 14, 2024 End: November 14, 2024 Dr. Denny Moffett , Attending Provider Active S tart: November 14, 2024 End: November 14, 2024 Team Status: Inactive Member Role Status Dates Dr. Cristian Adame MD Primary Care Provider Active Start: November 14, 2024 End: November 14, 2024 Dr. Denny Moffett , Attending Provider Active S tart: November 14, 2024 End: November 14, 2024 Dr. Denny Moffett , Referring Provider Active S tart: November 14, 2024 End: November 14, 2024 Diagram Clerk Relationship Specialty Start Date End Date Cristian Adame MD [address] [place] [address] PCP - General Family Medicine 10/08/14 Yolande Hines APRN.MANUFACTURING LEADER [address] [place], [place] [id number] Counts Include 234 Beds At [facility] 06/19/24 Gilda Noonan APRN.MANUFACTURING LEADER [address] [place], [place] [address] Counts Include 234 Beds At [facility] 06/19/24 Diagram Clerk Relationship Specialty Start Date End Date Cristian Adame MD [address] [place] [address] PCP - General Family Medicine 10/08/14 Yolande Hines APRN.MANUFACTURING LEADER [address] [place] [address] [employer] Machine Operator Family Medicine 06/19/24 Gilda Noonan APRN.MANUFACTURING LEADER [address] [place] [address] [employer] Machine Operator Family Medicine 06/19/24 Diagram Clerk Relationship Specialty Start Date End Date Cristian Adame MD [address] [place] [address] PCP - General Family Medicine 10/08/14 Yolande Hines APRN.MANUFACTURING LEADER [address] [place] [address] [employer] Machine Operator Family Medicine 06/19/24 Gilda Noonan APRN.MANUFACTURING LEADER [address] [place] [address] [facility] 06/19/24 Diagram Clerk Relationship Specialty Start Date End Date Cristian Adame MD [address] [facility] [place] [address] PCP - General Family Medicine 10/08/14 Yolande Hines APRN.MANUFACTURING LEADER [address] [facility] [place] [address] [employer] Machine Operator Family Medicine 06/19/24 Gilda Noonan APRN.MANUFACTURING LEADER [address] [facility] [place] [address] Counts Include 234 Beds At [facility] 06/19/24 Diagram Clerk Relationship Specialty Start Date End Date Cristian Adame MD [address] [facility] [place] [address] PCP - General Family Medicine 10/08/14 Yolande Hines 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 [address] [facility] [place] [address] [facility] 06/19/24 Gilda Noonan APRN.MANUFACTURING LEADER [address] [facility] [place] [address] Counts Include 234 Beds At [facility] 06/19/24 Diagram Clerk Relationship Specialty Start Date End Date Cristian Adame MD [address] [facility] [place] [address] PCP - General Family Medicine 10/08/14 Yolande Hines 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 [address] [facility] [place] [address] Counts Include 234 Beds At [facility] 06/19/24 Gilda Noonan 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 [address] [facility] [place] [address] Counts Include 234 Beds At [facility] 06/19/24 Diagram Clerk Relationship Specialty Start Date End Date Cristian Adame MD [address] [facility] [place] [address] PCP - General Family Medicine 10/08/14 Yolande Hines 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 [address] [facility] [place] [address] [employer] Family Medicine 06/19/24 Gilda Noonan APRN.MANUFACTURING LEADER [address] [facility] [place] [address] [employer] Family Medicine 06/19/24 Diagram Clerk Relationship Specialty Start Date End Date Cristian Adame MD [address] [facility] [place] [address] PCP - General Family Medicine 10/08/14 Yolande Hines, 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 [address] [facility] [place] [address] [employer] Operator Family Medicine 06/19/24 Gilda Noonan 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 [address] [facility] [place] [address] [facility] [facility] 06/19/24 Diagram Clerk Relationship Specialty Start Date End Date Cristian Adame MD [address] [facility] [place] [address] PCP - General Family Medicine 10/08/14 Yolande Hines 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 [address] [facility] [place] [address] [employer] Operator Family Medicine 06/19/24 Gilda Noonan 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 [address] [facility] [place] [address] [employer] Operator Family Medicine 06/19/24 Diagram Clerk Relationship Specialty Start Date End Date Cristian Adame MD [address] [facility] [place] [address] PCP - General Family Medicine 10/08/14 Yolande Hines 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 [address] [place] [address] Erco Machine Operator [facility] 06/19/24 Gilda Noonan 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 [address] [place] [address] [employer] Machine Operator [facility] 06/19/24 Diagram Clerk Relationship Specialty Start Date End Date Cristian Adame MD [address] [place] [address] PCP - General Family Medicine 10/08/14 Yolande Hines, JOSE.MANUFACTURING LEADER [address] [place] [address] [facility] [facility] 06/19/24 Gilda Noonan 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 [address] [place] [address] [facility] 06/19/24 Team Status: Active Member Role/Relationship Status Dates Dr. Cristian Adame MD Primary Care Provider Active Team Status: Inactive Member Role/Relationship Status Dates Dr. Cristian Adame MD Primary Care Provider Active Start: November 12, 2024 End: November 12, 2024 Dr. Dionicio Grimes , DO Attending Provider Active Start: November 12, 2024 End: November 12, 2024 Dr. Dionicio Grimes , DO Emergency Provider Active Start: November 12, 2024 End: November 12, 2024 Team Status: Inactive Member Role/Relationship Status Dates Dr. Cristian Aadme MD Primary Care Provider Active Start: November 14, 2024 End: November 14, 2024 Dr. Cristian Adame MD Referring Provider Active Start: November 14, 2024 End: November 14, 2024 Dr. Denny Moffett DO Attending Provider Active S tart: November 14, 2024 End: November 14, 2024 Team Status: Inactive Member Role/Relationship Status Dates Dr. Cristian Adame MD Primary Care Provider Active Start: November 14, 2024 End: November 14, 2024 Dr. Denny Moffett , DO Attending Provider Active S tart: November 14, 2024 End: November 14, 2024 Dr. Denny Moffett , Referring Provider Active S tart: November 14, 2024 End: November 14, 2024 Team Status: Inactive Member Role/Relationship Status Dates Dr. Cristian Adame MD Primary Care Provider Active Start: January 04, 2025 End: January 04, 2025 Dr. Denny Moffett , Attending Provider Active S tart: January 04, 2025 End: January 04, 2025 Dr. Denny Moffett , Referring Provider Active S tart: January 04, 2025 End: January 04, 2025 Dr. Theodore Lynch MD Other Provider Active Sta rt: January 04, 2025 End: January 04, 2025 Dr. Naeem Zambrano MD Other Provider Active Star t: January 04, 2025 End: January 04, 2025 Team Status: Inactive Member Role/Relationship Status Dates Dr. Cristian Adame MD Primary Care Provider Active Start: January 18, 2025 End: January 18, 2025 Dr. Cristian Adame MD Referring Provider Active Start: January 18, 2025 End: January 18, 2025 Tayler Cardenas LITIGATION PARALEGAL, LITIGATION PARALEGAL-C Attending Provider Active Start: January 18, 2025 End: January 18, 2025 Diagram Clerk Relationship Specialty Start Date End Date Cristian Adame MD [address] [place] [address] PCP - General Family Medicine 10/08/14 Yolande Hines, 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 [address] [place], [place] [address] [employer] Family Medicine 06/19/24 Gilda Noonan 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 [address] [place], [place] [address] [employer] Machine Operator Family Medicine 06/19/24 Diagram Clerk Relationship Specialty Start Date End Date Cristian Adame MD [address] [place] [address] PCP - General Family Medicine 10/08/14 Yolande Hines APRN.MANUFACTURING LEADER [address] [place] [address] [facility] 06/19/24 Gilda Noonan APRN.MANUFACTURING LEADER [address] [place] [address] [facility] [facility] 06/19/24 Diagram Clerk Relationship Specialty Start Date End Date Cristian Adame MD [address] [place] [address] PCP - General Family Medicine 10/08/14 Yolande Hines APRN.MANUFACTURING LEADER [address] [place] [address] [facility] [facility] 06/19/24 Gilda Noonan APRN.MANUFACTURING LEADER [address] [place] [address] Counts Include 234 Beds At [facility] 06/19/24 Team Status: Active Member Role/Relationship Status Dates Dr. Cristian Adame MD Primary Care Provider Active Start: February 06, 2025 Tayler Cardenas LITIGATION PARALEGAL, LITIGATION PARALEGAL-C Attending Provider Active Start: February 06, 2025 Tayler Cardenas LITIGATION PARALEGAL, LITIGATION PARALEGAL-C Referring Provider Active Start: February 06, 2025 Team Status: Inactive Member Role/Relationship Status Dates Dr. Cristian Adame MD Primary Care Provider Active Start: February 12, 2025 End: February 12, 2025 Tayler Cardenas LITIGATION PARALEGAL, LITIGATION PARALEGAL-C Referring Provider Active Start: February 12, 2025 End: February 12, 2025 Dr. Regino [place] MD Attending Provider Active S tart: February 12, 2025 End: February 12, 2025 Team Status: Active Member Role/Relationship Status Dates Dr. Cristian Adame MD Primary Care Provider Active Start: February 13, 2025 Dr. Maria C Browning MD Other Provider Active Start: February 13, 2025 Yelena Gallegos LITIGATION PARALEGAL, LITIGATION PARALEGAL-C Other Provider Active St art: February 13, 2025 Dr. Regino [place] MD Attending Provider Active S tart: February 13, 2025 Dr. Regino [place] MD Referring Provider Active S tart: February 13, 2025 Team Status: Inactive Member Role/Relationship Status Dates Dr. Cristian Adame MD Primary Care Provider Active Start: February 13, 2025 End: February 13, 2025 Dr. Cristian Adame MD Referring Provider Active Start: February 13, 2025 End: February 13, 2025 Yelena Gallegos LITIGATION PARALEGAL, LITIGATION PARALEGAL-C Attending Provider Active Start: February 13, 2025 End: February 13, 2025 Team Status: Inactive Member Role/Relationship Status Dates Dr. Cristian Adame MD Primary Care Provider Active Start: February 15, 2025 End: February 15, 2025 Dr. Hernan Vincent MD Attending Provider Active Start: February 15, 2025 End: February 15, 2025 Dr. Regino [place] MD Referring Provider Active S tart: February 15, 2025 End: February 15, 2025 Diagram Clerk Relationship Specialty Start Date End Date Cristian Adame MD [address] [place], [place] [address] PCP - General Family Medicine 10/08/14 Yolande Hines APRN.MANUFACTURING LEADER [address] [place], [place] [id number] Counts Include 234 Beds At [facility] 06/19/24 Gilda Noonan 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 [address] [place], [place] [id number] Counts Include 234 Beds At [facility] 06/19/24 Team Status: Inactive Member Role/Relationship Status Dates Dr. Cristian Adame MD Primary Care Provider Active Start: February 20, 2025 End: February 20, 2025 Dr. Hernan Vincent MD Attending Provider Active Start: February 20, 2025 End: February 20, 2025 Dr. Hernan Vincent MD Referring Provider Active Start: February 20, 2025 End: February 20, 2025 Team Status: Active Member Role/Relationship Status Dates Dr. Cristian Adame MD Primary Care Provider Active Start: February 20, 2025 Dr. Hernan Vincent MD Attending Provider Active Start: February 20, 2025 Dr. Hernan Vincent MD Referring Provider Active Start: February 20, 2025 Dr. Hernan Vincent MD Other Provider Active Start: February 20, 2025 Team Status: Inactive Member Role/Relationship Status Dates Dr. Cristian Adame MD Primary Care Provider Active Start: February 06, 2025 End: February 06, 2025 Tayler Cardenas LITIGATION PARALEGAL, LITIGATION PARALEGAL-C Attending Provider Active Start: February 06, 2025 End: February 06, 2025 Tayler Cardenas LITIGATION PARALEGAL, LITIGATION PARALEGAL-C Referring Provider Active Start: February 06, 2025 End: February 06, 2025 Team Status: Inactive Member Role/Relationship Status Dates Dr. Cristian Adame MD Primary Care Provider Active Start: February 13, 2025 End: February 13, 2025 Dr. Cristian Adame MD Referring Provider Active Start: February 13, 2025 End: February 13, 2025 Yelena Gallegos LITIGATION PARALEGAL, LITIGATION PARALEGAL-C Attending Provider Active Start: February 13, 2025 End: February 13, 2025 Team Status: Inactive Member Role/Relationship Status Dates Dr. Cristian Adame MD Primary Care Provider Active Start: February 15, 2025 End: February 15, 2025 Dr. Hernan Vincent MD Attending Provider Active Start: February 15, 2025 End: February 15, 2025 Dr. Regino [place] MD Referring Provider Active S tart: February 15, 2025 End: February 15, 2025 Team Status: Inactive Member Role/Relationship Status Dates Dr. Cristian Adame MD Primary Care Provider Active Start: February 20, 2025 End: February 20, 2025 Dr. Hernan Vincent MD Attending Provider Active Start: February 20, 2025 End: February 20, 2025 Dr. Hernan Vincent MD Referring Provider Active Start: February 20, 2025 End: February 20, 2025 Team Status: Active Member Role/Relationship Status Dates Dr. Cristian Adame MD Primary Care Provider Active Start: February 20, 2025 Dr. Hernan Vincent MD Attending Provider Active Start: February 20, 2025 Dr. Hernan Vincent MD Referring Provider Active Start: February 20, 2025 Dr. Hernan Vincent MD Other Provider Active Start: February 20, 2025 Team Status: Inactive Member Role/Relationship Status Dates Dr. Cristian Adame MD Primary Care Provider Active Start: March 01, 2025 End: March 01, 2025 Dr. Cristian Adame MD Referring Provider Active Start: March 01, 2025 End: March 01, 2025 Yelena Gallegos NP, LITIGATION PARALEGAL-C Attending Provider Active Start: March 01, 2025 End: March 01, 2025 Team Status: Active Member Role/Relationship Status Dates Dr. Cristian Adame MD Primary Care Provider Active Start: March 01, 2025 Dr. Maria C Browning MD Other Provider Active Start: March 01, 2025 Yelena Gallegos NP, LITIGATION PARALEGAL-C Other Provider Active St art: March 01, 2025 Dr. Regino [place] MD Attending Provider Active S tart: March 01, 2025 Dr. Regino [place] MD Referring Provider Active S tart: March 01, 2025 Diagram Clerk Relationship Specialty Start Date End Date Cristian Adame MD [address] [place], [place] [address] PCP - General Family Medicine 10/08/14 Yolande Hines, 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 [address] [place], [place] [address] Counts Include 234 Beds At [facility] 06/19/24 Gilda Noonan 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 [address] [place], [place] [address] Counts Include 234 Beds At [facility] 06/19/24 Team Status: Inactive Member Role/Relationship Status Dates Dr. Cristian Adame MD Primary Care Provider Active Start: March 07, 2025 End: March 07, 2025 Dr. Cristian Adame MD Referring Provider Active Start: March 07, 2025 End: March 07, 2025 Tayler Cardenas NP, LITIGATION PARALEGAL-C Attending Provider Active Start: March 07, 2025 End: March 07, 2025 Team Status: Inactive Member Role/Relationship Status Dates Dr. Cristian Adame MD Primary Care Provider Active Start: March 07, 2025 End: March 07, 2025 Dr. Cristian Adame MD Referring Provider Active Start: March 07, 2025 End: March 07, 2025 Tayler Cardenas LITIGATION PARALEGAL, LITIGATION PARALEGAL-C Attending Provider Active Start: March 07, 2025 End: March 07, 2025 Team Status: Inactive Member Role/Relationship Status Dates Dr. Cristian Adame MD Primary Care Provider Active Start: March 08, 2025 End: March 08, 2025 Dr. Cristian Adame MD Referring Provider Active Start: March 08, 2025 End: March 08, 2025 Dr. Regino [place] MD Attending Provider Active S tart: March 08, 2025 End: March 08, 2025 Team Status: Active Member Role/Relationship Status Dates Dr. Cristian Adame MD Primary Care Provider Active Start: March 08, 2025 Dr. Maria C Browning MD Other Provider Active Start: March 08, 2025 Yelena Gallegos NP, LITIGATION PARALEGAL-C Other Provider Active St art: March 08, 2025 Dr. Regino [place] MD Attending Provider Active S tart: March 08, 2025 Dr. Regino Bruleson MD Referring Provider Active S tart: March 08, 2025 Diagram Clerk Relationship Specialty Start Date End Date Cristian Adame MD [address] [place], [place] [id number] PCP - General Family Medicine 10/08/14 Yolande Hines APRN.MANUFACTURING LEADER [address] [place], [place] [id number] [employer] Machine [employer] Family Medicine 06/19/24 Gilda Noonan APRN.MANUFACTURING LEADER [address] [place], [place] [id number] [facility] Family Medicine 06/19/24 Goals (unrecognized section and content) Goals may be documented in a n alternate sectionGoals may be documented in an alternate sectionGoals may be documented in an alternate sectionGoals may be documented in an alternate sectionGoals may be documented in an alternate sectionGoals may be documented in an alternate section (unrecognized sect ion and content) No Status Records FoundNo Status Records Found INFORMATION SOURCE (unrecogn ized section and content) DATE CREATED AUTHOR 03/16/2025 [facility] DATE CREATED AUTHOR AUTHOR'S RACHELL BARRETO 03/20/2025 [facility] FOR RECORDS PERTAINING TO PATIENTS WHO [...] BE BASED ON THE PRIMARY CLINICAL RECORDS. [employer] provides no warranty or guarantee of the accuracy or completeness of information in this document.
[2025-03-22 00:48] VITALS: BP 103/68; PULSE 88; RESP 16; TEMP 36.7; O2SAT 99
[2025-03-22 00:49] VITALS: BMI 17.7
[2025-03-22 01:00] VITALS: O2SAT 99
[2025-03-22] MEDS: 0.9% Normal Saline (1000mL) 1,000 ML 70 ML IV (01:24)
--- OUTSIDE RECORDS SUMMARY | 2025-03-22 01:28 | XMS RPT_ITS | CCD ---
Author Organization [facility] Care Team Providers [facility] Display Builder Name Role Phone DOLORSE Carrillo RN, Sepideh aH Unavailable Unavailekaterina Vincent MD, Hernan German Unavailable Luis Grossman Unavailable Unavailable Wendi NELSON, Cristian Melton Primary Care Provider Cristian Adame MD Primary Care Provider Cristian Adame MD Primary Care Provider Flora HAWK MISSILE SYSTEM CREWMEMBER.FIBERGLASS QUALITY TECHNICIANYolande Unavailable Suppan HAWK MISSILE SYSTEM CREWMEMBER.FIBERGLASS QUALITY TECHNICIAN, Gilda Dilcia Unavailable Dr. Cristian Adame MD Primary Care Provider Dr. Dionicio Grimes DO Attending Provider Dr. Dionciio Grimes DO Emergency Provider Dr. Cristian Adame MD Referring Provider Dr. Denny Moffett DO Attending Provider Dr. Denny Moffett DO Referring Provider Dr. Theodore Lynch MD Other Provider Unavailekaterina Zambrano MD, Dr. Hartley Other Provider Unavailable Theresa LOOM OPERATOR APPRENTICE-C, Tayler Attending Provider Theresa LOOM OPERATOR APPRENTICE-C, Tayler Referring Provider Dr. Regino Burleson MD Attending Provider Dr. Maria C Browning MD Other Provider Rosy LOOM OPERATOR APPRENTICE-C, Yelena Other Provider Dr. Regino Burleson MD Referring Provider Rosy LOOM OPERATOR APPRENTICE-C, Yelena Attending Provider Melisa NELSON, Dr. Becerra Attending Provider [phone] Melisa NELSON, Dr. Becerra Referring Provider Melisa NELSON, Dr. Becerra Other Provider Sarah Beth NELSON, Dr. Lacy Referring Provider Nallely NELSON, Dr. Lombardi Other Provider Rosy LOOM OPERATOR APPRENTICE-C, Yelena Other Provider Nallely NELSON, Dr. Lombardi Other Provider Rosy LOOM OPERATOR APPRENTICE-C, Yelena Other Provider Theresa LOOM OPERATOR APPRENTICE, Tayler Referring Unavailable Cardenas LOOM OPERATOR APPRENTICE, Tayler Attending Unavailable Whitlash, [facility] Primary [facility] Unavailable Dionicio Grimes Attending Unavailable Whitlash, [facility] Unavailable Calabretta, Hernan Referring Unavailable Calabretta, Hernan Attending Unavailable Whitlash, [facility] Unavailable Cardenas LOOM OPERATOR APPRENTICE, Tayler Attending Unavailable Whitlash, Cristian Referring Unavailable Whitlash, [facility] Unavailable Calabretta, Hernan Referring Unavailable Calabretta, Hernan Attending Unavailable Calabretta, Hernan Consulting Unavailable Whitlash, [facility] Unavailable PrahRegino Attending Unavailable Cardenas LOOM OPERATOR APPRENTICE, Tayler Referring Unavailable Whitlash, [facility] Primary [facility] Unavailable Rosy LOOM OPERATOR APPRENTICE, Yelena Attending Unavailable Whitlash, [facility] Primary [facility] Unavailable Whitlash, Cristian Referring Unavailable PrahRegino Referring Unavailable Calabretta, Hernan Attending Unavailable Whitlash, [facility] Unavailable Rosy LOOM OPERATOR APPRENTICE, Yelena Attending Unavailable Whitlash, [facility] Primary [facility] Unavailable Whitlash, Cristian Referring Unavailable Cardenas LOOM OPERATOR APPRENTICE, Tayler Attending Unavailable Whitlash, [facility] Unavailable Wendi, Cristian Referring Unavailable PrahRegino Attending Unavailable Wendi, [facility] Unavailable Wendi, Cristian Referring Unavailable BrownDenny Attending Unavailable Whitlash, Cristian Referring Unavailable Wendi, [facility] Unavailable Theodore Lynch Consulting Unavailable Brown, Denny Referring Unavailable BrownMarcik Attending Unavailable Whitlash, [facility] Unavailable Naeem Zambrano Consulting Unavailable Prah, Regino Referring Unavailable PraRegino staples Attending Unavailable Rosy LOOM OPERATOR APPRENTICE, Yelena Consulting Unavailable Whitlash, Cristian Primary Care Unavailable Maria C Browning Consulting Unavailable Brown, Denny Referring Unavailable BrownMarcik Attending Unavailable Whitlash, Cristian Primary Care Unavailable [facility], CRISTIAN Melton Primary Care Unavailable WENDI, CRISTIAN Melton Referring Unavailable WENDI, CRISTIAN Melton Referring Unavailable WENDI, CRISTIAN Melton Primary Care Unavailable CRISTIAN ADAME Attending Unavailable WENDI, CRISTIAN Melton Primary Care Unavailable WENDI, CRISTIAN Melton Referring Unavailable WENDI, CRISTIAN Melton Primary Care Unavailable WENDI, CRISTIAN Melton Attending Unavailable WENDI, CRISTIAN Melton Primary Care Unavailable WENDI, CRISTIAN Melton Primary Care Unavailable WENDI, CRISTIAN Melton Attending Unavailable WENDI, CRISTIAN Melton Primary Care Unavailable WENDI, CRISTIAN Melton Primary Care Unavailable GILDA NOONAN Attending Unavailable WENDI, CRISTIAN Melton Primary Care Unavailable WENDI, CRISTIAN Melton Referring Unavailable Whitlash Dr. Cristian NELSON Primary Care Provider Dr. Denny Moffett DO Attending Provider Dr. Denny Moffett DO Referring Provider [phone] Dr. Cristian Adame MD Referring Provider [phone] Nallely NELSON, Dr. Lombardi Other Provider Rosy LOOM OPERATOR APPRENTICE-C, Yelena Other Provider Dr. Lindsay Clifton DO Emergency Provider [phone] Dr. Theodore Mcmillan DO Admit Provider Unavail able Dr. Theodore Mcmillan DO Attending Provider Unav ailable Allergies Allergy Classification Reported Allergen(s) Allergy Type Date of Onset Reaction(s) Facility (2 sources) amoxicillin / clavulanate drug allergy 12-03-19 17 [facility] Work Phone: (2 sources) sulfamethoxazole / trimethoprim drug allergy 12-03-19 17 [facility] Work Phone: (20 sources) Amoxicillin / Clavulanate; Translations: [AMOXICILLIN-POT CLAVULANATE] Drug Allergy 05-08-20 11 Diarrhea [facility] (20 sources) Sulfamethoxazole; Translations: [SULFAMETHOXAZOLE] Drug Allergy 06-27-20 12 Swelling [facility] (13 sources) Amoxicillin; Translations: [amoxicillin trihydrate] Drug Allergy 11-15-19 25 Nausea [facility] (12 sources) Trimethoprim Drug Allergy 11-15-19 25 Unknown [facility] (13 sources) potassium clavulanate; Translations: [potassium clavulanate] Propensity to adverse reactions 11-15-19 Nausea [facility] (1 source) Sulfamethoxazole Drug Allergy 03-08-20 [facility] (1 source) Trimethoprim Drug Allergy 03-08-20 [facility] Medications Current Medications Medication Drug Class(es) Dates Sig (Normalized) Sig (Original) albuterol 0.833 mg/ml / ipratropium bromide 0.167 mg/ml inhalation solution (3 sources) Anticholinergic, beta2-Adrenergic Agonist Start: 03-07-2025 take [...] 11/06/2023 Active dexamethasone 4 mg oral tablet (7 sources) Corticosteroid Start: 02-13-2025 Dexamethasone 4 mg tablet Active 8 mg PO .COMPLEX 30 February 13, 2025 12:00am 8 mg orally [...] 12:00am hydrOXYzine pamoate 25 mg oral capsule (4 sources) Antihistamine Start: 03-07-2025 take 1 capsule [...] capsule 12/21/2024 12/21/2024 Active Lidocaine / Prilocaine (7 sources) Antiarrhythmic, Amide Local Anesthetic Start: 02-13-2025 [...] (20 sources) Biguanide Start: 01-30-2025 End: 2025 Metformin 500 mg tablet extended release 24 hr Active 1000 mg PO daily February 12, 2025 12:00am Start: 11-01-2023 End: 11-22-2024 take 1 tablet [...] 1 01/04/2025 Active Naloxone 4 mg/actuation spray,non-aerosol (3 sources) Start: 03-07-2025 Naloxone 4 mg/actuation spray,non-aerosol Active INTRANASAL March 07, 2025 12:00am Nebulizer machine (3 sources) Start: 03-07-2025 Nebulizer machine Active 0 [...] every eight hours as needed for nausea Ondansetron 4 mg tablet,disintegrating Discontinued 4 mg PO EVERY 8 HOURS NEEDED as needed for Nausea January 18, 2025 11:21am March 01, 2025 9:30am oxyCODONE hydrochloride 5 mg oral tablet (20 [...] 12/27/2024 Active Start: 11-12-2024 End: 03-15-2025 take 5-10 mg by mouth every six hours as needed for pain Oxycodone 5 mg tablet Active 5 - 10 mg PO EVERY 6 HOURS as needed for pain March 01, 2025 8:46am Lymphadenopathy Generalized enlarged lymph nodes polyethylene glycol 3350 07738 mg powder for oral solution (3 sources) Osmotic Laxative Start: 03-01-2025 Polyethylene Glycol 3350 (Miralax) 17 gram/dose powder Active 4 g PO ONCE 510 March 01, 2025 12:00am Constipation Constipation, unspecified sodium chloride 1000 mg oral tablet (3 sources) Start: 03-01-2025 take 1 tablet by mouth once daily Sodium Chloride 1,000 mg tablet,soluble Active 1000 mg PO daily 30 0 March 01, 2025 12:00am Hyponatremia Hypo-osmolality and [...] Discontinued cyclobenzaprine hydrochloride 10 mg oral tablet (12 sources) Muscle Relaxant Start: 04-01-2019 End: 11-12-2024 take 1 tablet by mouth three times daily as needed for muscle spasms Cyclobenzaprine 10 MG tablet Discontinued 10 mg PO 3 TIMES DAILY NEEDED as needed for Muscle Spasm April 01, 2019 12:00am November 12, 2024 8:44am diclofenac sodium 50 mg delayed release oral tablet (12 sources) Nonsteroidal Anti-inflammatory Drug Start: 04-01-2019 End: 11-12-2024 take 1 tablet by mouth once daily Diclofenac Sodium 50 MG tablet,delayed release (DR/EC) Discontinued 50 mg PO DAILY April 01, 2019 12:00am November 12, 2024 8:44am naproxen 500 mg oral tablet (12 sources) Nonsteroidal Anti-inflammatory Drug Start: 04-01-2019 End: 11-12-2024 take 1 tablet by mouth twice daily as needed Naproxen 500 MG tablet Discontinued 500 mg PO TWICE DAILY NEEDED April 01, 2019 12:00am November 12, 2024 8:45am Drug Treatment Unknown - unknown (1 source) No information available. RABEprazole sodium 20 mg delayed release oral tablet (20 sources) Proton Pump Inhibitor Start: 01-20-2015 End: 03-01-2025 take 1 tablet by mouth once daily Rabeprazole (Aciphex) 20 MG tablet Discontinued 20 mg PO DAILY January 20, 2015 12:00am March 01, 2025 2:58pm Comment on above: Take 1 tablet by soheila once daily. rosuvastatin calcium 5 mg oral tablet (2 [...] inguinal hernia ; Translations: [Diaphragmatic hernia] Onset: 9 12-03-2016 Episodic Abdominal pain (19 sources) Generalized abdominal pain; Translations: [Generalized abdominal pain] Onset: 5 01-04-2025 Episodic Allergic reactions (1 source) Allergic [...] Episodic Chronic obstructive pulmonary disease and bronchiectasis (8 sources) Chronic obstructive lung disease; Translations: [Chronic [...] 8 06-19-2008 Chronic Fluid and electrolyte disorders (8 sources) Hyponatremia; Translations: [Hypo-osmolality and hyponatremia] 03-01-2025 [...] Onset: 1 Resolved: 1 05-08-2011 Chronic Lymphadenitis (20 sources) Lymphadenopathy; Translations: [Generalized enlarged lymph nodes] Onset: 5 11-12-2024 Episodic Maintenance chemotherapy; radiotherapy (8 sources) Patient encounter status; Translations: [Encounter for antineoplastic chemotherapy] 03-01-2025 Chronic Malaise and fatigue (2 sources) Asthenia; Translations: [Weakness] 03-21-2025 Episodic Mood disorders (20 sources) Dysthymia; Translations: [Dysthymic disorder] Onset: 8 Resolved: 8 05-08-2008 Chronic Other aftercare (1 source) Encounter for adjustment and management of vascular access device; Translations: [Encounter for adjustment and management of vascular access device] Onset: 5 Episodic Other aftercare (1 source) MCC (current) use of insulin; Translations: [Controlled type 2 diabetes mellitus without complication, with long-term current use of insulin (HCC)] Onset: 5 Episodic Other circulatory disease (1 source) Abnormal chest sounds; Translations: [Other specified symptoms and signs involving the circulatory and respiratory systems] 03-20-2025 Episodic Other circulatory disease (2 sources) Low blood pressure; Translations: [Hypotension, unspecified] 03-21-2025 Episodic Other gastrointestinal disorders (5 sources) Acute constipation; Translations: [Constipation, unspecified] 12-15-2024 Episodic Other gastrointestinal disorders (3 sources) Constipation; Translations: [Constipation, unspecified] 03-01-2025 Episodic Other lower respiratory disease (20 sources) Multiple nodules of lung; Translations: [Other nonspecific abnormal finding of lung field] 11-14-2024 Episodic Other lower respiratory disease (5 sources) Nodule of lung; Translations: [Solitary pulmonary nodule] 12-20-2024 Episodic Other lower respiratory disease (6 sources) Dyspnea; Translations: [Shortness of breath] 03-07-2025 Episodic Other lower respiratory disease (6 sources) Hypoxia; Translations: [Hypoxemia] 03-07-2025 Episodic Other [...] Episodic Other nutritional; endocrine; and metabolic disorders (20 sources) Unintentional weight loss; Translations: [Abnormal weight loss] 01-18-2025 Episodic Other nutritional; endocrine; and metabolic disorders (2 sources) Adult failure to thrive syndrome; Translations: [Adult failure to thrive] 03-22-2025 Episodic Other screening for suspected conditions (not [...] Translations: [Secondary malignant neoplasm of mediastinum] Onset: 5 Chronic Secondary malignancies (1 source) Secondary malignant neoplasm of liver and intrahepatic bile duct; Translations: [Secondary malignant neoplasm of liver and intrahepatic bile duct] Onset: 5 Chronic Spondylosis; intervertebral disc disorders; other back problems (12 sources) Low back pain; Translations: [Lumbar back pain] 04-10-2019 Episodic Sprains and strains (20 sources) Sprain of foot; Translations: [Unspecified sprain of unspecified foot, initial encounter] Onset: 9 09-27-2008 Episodic Unclassified (1 source) No current problems or disability 12-02-2016 Unclassified (19 sources) 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 Unclassified (11 sources) C34.31 - Malignant neoplasm of lower lobe, right bronchus or lung Unclassified (10 sources) x 01-18-2025 Unclassified (10 sources) 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 Unclassified (20 sources) Non-small cell lung cancer metastatic to liver Unclassified (18 sources) Non-small cell lung cancer metastatic to bone Unclassified (9 sources) C34.90 - Malignant neoplasm of unspecified part of unspecified bronchus or lung,C78.1 - Secondary malignant neoplasm of mediastinum,C78.7 - Secondary malignant neoplasm of liver and intrahepatic bile duct,C79.51 - Secondary malignant neoplasm of bone,C34.31 - Malignant neoplasm of lower lobe, right bronchus or lung Unclassified (9 sources) C34.90 - Malignant neoplasm of unspecified part of unspecified bronchus or lung,C78.1 - Secondary malignant neoplasm of mediastinum,C78.7 - Secondary malignant neoplasm of liver and intrahepatic bile duct,C34.31 - Malignant neoplasm of lower lobe, right bronchus or lung,C79.51 - Secondary malignant neoplasm of bone Unclassified (8 sources) C34.90 - Malignant neoplasm of unspecified part of unspecified bronchus or lung,C78.7 - Secondary malignant neoplasm of liver and intrahepatic bile duct Past or Other Problems Problem Classification Problem Date Documented Da te Episodic/Chronic Deficiency and other anemia (20 sources) Anemia; [...] use; Translations: [Tobacco use] Onset: 06-10-2011 Episodic Results Test Name Value Interpretation Reference Range Facility Absolute lymphocyte countOrd ered By: Lindsay Clifton on 03-21-2025 Lymphocytes Auto (Unsp spec) [#/Vol] 0.69 10*3/uL Low 0.83-4.51 [facility] Absolute neutrophil countOrd ered By: Lindsay Clifton on 03-21-2025 Neutrophils (Bld) [#/Vol] 3.5 10*3/uL 2.0-7.7 [facility] Anion gap in Serum or Plasma Ordered By: Lindsay Clifton on 03-21-2025 Anion gap [Moles/Vol] 13 mmol/L 5-15 [facility] Automated lymphocyte count a s percentage of total leukocytesOrdered By: Lindsay Clifton on 03-21-2025 Lymphocytes/100 WBC Auto (Unsp spec) 14.6 % Low 19-41 [facility] BUN/creatinine ratioOrdered By: Lindsay Clifton on 03-21-2025 Urea nitrogen/Creatinine [Mass ratio] 10.9 mg/mg 10-20 [facility] Basophil percentageOrdered B y: Lindsay Clifton on 03-21-2025 Basophils/100 WBC (Bld) 0.8 % 0-1 [facility] Bilirubin Test strip Ql (U)O rdered By: Lindsay Clifton on 03-21-2025 Bilirubin Ql (U) Negative Negative [facility] Bilirubin, totalOrdered By: Lindsay Clifton on 03-21-2025 Bilirubin [Mass/Vol] 0.70 mg/dL 0.00-1.30 [facility] Carbon dioxide, total [Moles /volume] in Central venous bloodOrdered By: Lindsay Clifton on 03-21-2025 CO2 [Moles/Vol] 20.9 mmol/L Low 21.0-32.0 [facility] Chloride assayOrdered By: Alexey Clifton on 03-21-2025 Chloride [Moles/Vol] 94 mmol/L Low 98-108 [facility] Eosinophil percentageOrdered By: Lindsay Clifton on 03-21-2025 Eosinophils/100 WBC (Bld) 0.2 % 0-5 [facility] Erythrocyte distribution wid th ratioOrdered By: Lindsay Clifton on 03-21-2025 Erythrocyte distribution width (RBC) [Ratio] 16.3 % High 11.6-14.6 [facility] Erythrocyte distribution wid th standard deviationOrdered By: Lindsay Clifton on 03-21-2025 Erythrocyte distribution width (RBC) [Ratio] 46.9 fl High 35.1-43.9 [facility] Glomerular filtration rate ( GFR) estimation/1.73 sq m using serum, plasma, or whole bOrdered By: Lindsay Clifton on 03-21-2025 GFR/1.73 sq M.predicted among non-blacks MDRD (S/P/Bld) [Vol rate/Area] 105 mL/min/{1.73_m2} >60 [facility] Comment on above: mL/min/1.73m2 CKD-EP I Creatinine Equation (2020) Hematocrit Auto (Bld) [Volum e fraction]Ordered By: Lindsay Clifton on 03-21-2025 Hematocrit (Bld) [Volume fraction] 28.6 % Low 40-54 [facility] Hemoglobin measurementOrdere d By: Lindsay Clifton on 03-21-2025 Hemoglobin (Bld) [Mass/Vol] 9.3 g/dL Low 13.0-16.5 [facility] Immature granulocytes/100 WB C Auto (Bld)Ordered By: Lindsay Clifton on 03-21-2025 Immature granulocytes/100 WBC (Bld) 1.100 % High 0.0-0.9 [facility] Comment on above: IG% - Immature Granu locytes (promyelocytes, myelocytes and metamyelocytes) > 1% indicates that a LEFT SHIFT is Present. Ketones Test strip Ql (U)Ord ered By: Lindsay Clifton on 03-21-2025 Ketones Ql (U) Negative Negative [facility] Laboratory - Chemistry and C hemistry - challengeOrdered By: Lindsay Clifton on 03-21-2025 AST [Catalytic activity/Vol] 29 U/L <38 [facility] Comment on above: Hemolysis present, R esults could be affected. Lipase measurementOrdered By : Lindsay Clifton on 03-21-2025 Lipase [Catalytic activity/Vol] 13 U/L 13-75 [facility] Comment on above: Please note:LIPASE r evised reference range effective 22. New Lipase methodology. Expected to produce lower values than the previous assay method. NEW Reference Range: 13 - 75 U/L MCV (mean corpuscular volume ) determinationOrdered By: Lindsay Clifton on 03-21-2025 MCV (RBC) [Entitic vol] 80.6 fL 80-94 [facility] Mean corpuscular hemoglobin (MCH) determinationOrdered By: Lindsay Clifton on 03-21-2025 MCH (RBC) [Entitic mass] 26.2 pg Low 27.0-32.0 [facility] Mean corpuscular hemoglobin concentration (MCHC) determinationOrdered By: Lindsay Clifton on 03-21-2025 MCHC (RBC) [Mass/Vol] 32.5 g/dL 32-36 [facility] Mean platelet volume determi nationOrdered By: Lindsay Clifton on 03-21-2025 Platelet mean volume (Bld) [Entitic vol] 11.6 fL 6.2-12.0 [facility] Microscopic analysis of urin e for red blood cells (RBC)Ordered By: Lindsay Clifton on 03-21-2025 Microscopic analysis of urine for red blood cells (RBC) 0-5 SEEN /hpf 0-5 [facility] Monocyte percentageOrdered B y: Lindsay Clifton on 03-21-2025 Monocytes/100 WBC (Bld) 10.2 % High 0-10 [facility] Mucus LM Ql (Urine sed)Order ed By: Lindsay Clifton on 03-21-2025 Mucus Ql (Urine sed) 0 SEEN /hpf [facility] Neutrophil percentageOrdered By: Lindsay Clifton on 03-21-2025 Neutrophils/100 WBC (Bld) 73.1 % High 47-70 [facility] Nitrite Test strip Ql (U)Ord ered By: Lindsay Clifton on 03-21-2025 Nitrite Ql (U) Negative Negative [facility] Nucleated red blood cell per centageOrdered By: Lindsay Clifton on 03-21-2025 Nucleated RBC/100 WBC (Bld) [Ratio] 0 % 0-5 [facility] Platelet countOrdered By: Alexey Clifton on 03-21-2025 Platelets (Bld) [#/Vol] 277 10*3/uL 150-450 [facility] Potassium measurement (mass/ volume)Ordered By: Lindsay Clifton on 03-21-2025 Potassium (Unsp spec) [Mass/Vol] 4.8 mmol/L 3.3-5.1 [facility] Comment on above: Hemolysis present, R esults could be affected. Protein Test strip Ql (U)Ord ered By: Lindsay Clifton on 03-21-2025 Protein Ql (U) 30 mg/dl High Negative [facility] RBC Auto (Bld) [#/Vol]Ordere d By: Lindsay Clifton on 03-21-2025 RBC (Bld) [#/Vol] 3.55 10*6/uL Low 4.6-6.2 [facility] Serum creatinine measurement (mass/volume)Ordered By: Lindsay Clifton on 03-21-2025 Creatinine [Mass/Vol] 0.87 mg/dL 0.70-1.20 [facility] Serum globulin measurementOr dered By: Lindsay Clifton on 03-21-2025 Globulin (S) [Mass/Vol] 3.9 g/dL 2.2-4.2 [facility] Serum glucose measurement (m ass/volume)Ordered By: Lindsay Clifton on 03-21-2025 Glucose [Mass/Vol] 212 mg/dL High 70-99 [facility] Serum or plasma alanine montenegro otransferase (ALT) measurementOrdered By: Lindsay Clifton on 03-21-2025 ALT [Catalytic activity/Vol] 29 U/L <47 [facility] Serum or plasma albumin darien urement (mass/volume)Ordered By: Lindsay Clifton on 03-21-2025 Albumin [Mass/Vol] 2.8 g/dL Low 3.5-5.0 [facility] Serum or plasma albumin/glob ulin mass ratioOrdered By: Lindsay Clifton on 03-21-2025 Albumin/Globulin [Mass ratio] 0.7 {ratio} Low 0.9-2.4 [facility] Serum or plasma alkaline maría sphatase measurementOrdered By: Lindsay Clifton on 03-21-2025 ALP [Catalytic activity/Vol] 92 U/L 40-129 [facility] Serum or plasma calcium darien urement (mass/volume)Ordered By: Remus Clifton on 03-21-2025 Calcium [Mass/Vol] 8.9 mg/dL 7.6-11.0 [facility] Serum or plasma urea nitroge n measurement (mass/volume)Ordered By: Remus Elodia on 03-21-2025 Urea nitrogen [Mass/Vol] 9 mg/dL 4-19 [facility] Sodium levelOrdered By: Remu s Elodia on 03-21-2025 Sodium [Moles/Vol] 128 mmol/L Low 133-145 [facility] Squamous epithelial cells de tection in urine sediment by light microscopyOrdered By: Remus Elodia on 03-21-2025 Epithelial cells.squamous LM Ql (Urine sed) 0-5 SEEN /hpf 0-5 [facility] Total proteinOrdered By: Rem us Clifton on 03-21-2025 Protein [Mass/Vol] 6.7 g/dL 5.9-8.4 [facility] Urine clarityOrdered By: Rem us Clifton on 03-21-2025 Clarity (U) Clear Clear [facility] Urine color determinationOrd ered By: Remus Clifton on 03-21-2025 Color (U) Yellow Yellow [facility] Urine glucose detectionOrder ed By: Lindsay Clifton on 03-21-2025 Glucose Ql (U) Normal mg/dl Normal [facility] Urine leukocyte esterase det ection by dipstickOrdered By: Remus Clifton on 03-21-2025 Leukocyte esterase Test strip Ql (U) Negative Negative [facility] Urine pHOrdered By: Lindsay Baxter gur on 03-21-2025 pH (U) 6.5 [pH] 5.0 - 8.0 [facility] Urine sediment bacteria coun t by microscopy (number/high power field)Ordered By: Lindsay Clifton on 03-21-2025 Bacteria LM.HPF (Urine sed) [#/Area] 0 /[HPF] None Seen [facility] Urine specific gravity measu rementOrdered By: Remus Elodia on 03-21-2025 Specific gravity (U) [Rel density] 1.005 1.002-1.030 [facility] Urine urobilinogen measureme ntOrdered By: Remus Clifton on 03-21-2025 Urobilinogen Ql (U) 1 mg/dl High Normal [facility] White blood cell (WBC) count Ordered By: Leah Elodia on 03-21-2025 WBC (Bld) [#/Vol] 4.7 10*3/uL 4.4-11.0 [facility] White blood cell countOrdere d By: Lindsay Clifton on 03-21-2025 White blood cell count 0-5 SEEN /hpf 0-5 [facility] FACEHYUN RODRIGUEZ ([id number]) 1975 M Date Time Provider Department 03/19/25 CRISTIAN ADAME [facility] During your visit today, we recorded [...] Status:Closed by MARSHALL TRAN on 03/19/25 Normal [facility] Absolute lymphocyte countOrd ered By: Maria C Browning on 03-15-2025 Lymphocytes Auto (Unsp spec) [#/Vol] 0.84 10*3/uL 0.83-4.51 [facility] Absolute neutrophil countOrd ered By: Maria C Browning on 03-15-2025 Neutrophils (Bld) [#/Vol] 8.9 10*3/uL High 2.0-7.7 [facility] Automated lymphocyte count a s percentage of total leukocytesOrdered By: Maria C Browning on 03-15-2025 Lymphocytes/100 WBC Auto (Unsp spec) 7.5 % Low 19-41 [facility] Basophil percentageOrdered B y: Maria C Browning on 03-15-2025 Basophils/100 WBC (Bld) 0.4 % 0-1 [facility] CBC W/Diff, Automatedon Absolute Lymph 0.84 X10 3/uL Normal 0.83-4.51 [facility] Comment on above: Performed By: #### L 501.5500, L501.7300, L501.7400 #### [facility] [address] [place], [address] Absolute Neut 8.9 X10 3/uL High 2.0-7.7 [facility] Comment on above: Performed By: #### L 501.5500, L501.7300, L501.7400 #### [facility] [address] [place], [address] Basophils/100 WBC (Bld) 0.4 % Normal 0-1 [facility] Comment on above: Performed By: #### L 501.5500, L501.7300, L501.7400 #### [facility] [address] [place], [address] Eosinophils/100 WBC (Bld) 0.3 % Normal 0-5 [facility] Comment on above: Performed By: #### L 501.5500, L501.7300, L501.7400 #### [facility] [address] [place], [address] Erythrocyte distribution width (RBC) [Ratio] 16.3 % High 11.6-14.6 [facility] Comment on above: Performed By: #### L 501.5500, L501.7300, L501.7400 #### [facility] [address] [place], [address] Hematocrit (Bld) [Volume fraction] 27.3 % Low 40-54 [facility] Comment on above: Performed By: #### L 501.5500, L501.7300, L501.7400 #### [facility] [address] [place], [address] Hemoglobin (Bld) [Mass/Vol] 8.9 g/dL Low 13.0-16.5 [facility] Comment on above: Performed By: #### L 501.5500, L501.7300, L501.7400 #### [facility] [address] [place], [address] IG% 1.400 High 0.0-0.9 [facility] Comment on above: Result Comment: IG% - Immature Granulocytes (promyelocytes, myelocytes and metamyelocytes) > 1% indicates that a LEFT SHIFT is Present. Performed By: #### L 501.5500, L501.7300, L501.7400 #### [facility] [address] [place], [address] Lymphocytes/100 WBC (Bld) 7.5 % Low 19-41 [facility] Comment on above: Performed By: #### L 501.5500, L501.7300, L501.7400 #### [facility] [address] [place], [address] MCH (RBC) [Entitic mass] 26.0 pg Low 27.0-32.0 [facility] Comment on above: Performed By: #### L 501.5500, L501.7300, L501.7400 #### [facility] [address] [place], [address] MCHC (RBC) [Mass/Vol] 32.6 g/dL Normal 32-36 [facility] Comment on above: Performed By: #### L 501.5500, L501.7300, L501.7400 #### [facility] [address] [place], [address] MCV (RBC) [Entitic vol] 79.8 fL Low 80-94 [facility] Comment on above: Performed By: #### L 501.5500, L501.7300, L501.7400 #### [facility] [address] [place], [address] Monocytes/100 WBC (Bld) 10.4 % High 0-10 [facility] Comment on above: Performed By: #### L 501.5500, L501.7300, L501.7400 #### [facility] [address] [place], [address] Neutrophils/100 WBC (Bld) 80.0 % High 47-70 [facility] Comment on above: Performed By: #### L 501.5500, L501.7300, L501.7400 #### [facility] [address] [place], [address] Nucleated RBC (Bld) [#/Vol] 0 10*3/uL Normal 0-5 [facility] Comment on above: Performed By: #### L 501.5500, L501.7300, L501.7400 #### [facility] [address] [place], [address] Platelet mean volume (Bld) [Entitic vol] 10.7 fL Normal 6.2-12.0 [facility] Comment on above: Performed By: #### L 501.5500, L501.7300, L501.7400 #### [facility] [address] [place], [address] Platelets (Bld) [#/Vol] 331 10*3/uL Normal 150-450 [facility] Comment on above: Performed By: #### L 501.5500, L501.7300, L501.7400 #### [facility] [address] [place], [address] RBC (Bld) [#/Vol] 3.42 10*6/uL Low 4.6-6.2 [facility] Comment on above: Performed By: #### L 501.5500, L501.7300, L501.7400 #### [facility] [address] [place], [address] RDW SD 46.6 fl High 35.1-43.9 [facility] Comment on above: Performed By: #### L 501.5500, L501.7300, L501.7400 #### [facility] [address] [place], [address] WBC (Bld) [#/Vol] 11.1 10*3/uL High 4.4-11.0 [facility] Comment on above: Performed By: #### L 501.5500, L501.7300, L501.7400 #### [facility] [address] [place], [address] Eosinophil percentageOrdered By: Maria C Browning on 03-15-2025 Eosinophils/100 WBC (Bld) 0.3 % 0-5 [facility] Erythrocyte distribution wid th ratioOrdered By: Maria C Browning on 03-15-2025 Erythrocyte distribution width (RBC) [Ratio] 16.3 % High 11.6-14.6 [facility] Erythrocyte distribution wid th standard deviationOrdered By: Maria C Browning on 03-15-2025 Erythrocyte distribution width (RBC) [Ratio] 46.6 fl High 35.1-43.9 [facility] Hematocrit Auto (Bld) [Volum e fraction]Ordered By: Maria C Browning on 03-15-2025 Hematocrit (Bld) [Volume fraction] 27.3 % Low 40-54 [facility] Hemoglobin measurementOrdere d By: Maria C Browning on 03-15-2025 Hemoglobin (Bld) [Mass/Vol] 8.9 g/dL Low 13.0-16.5 [facility] Immature granulocytes/100 WB C Auto (Bld)Ordered By: Maria C Browning on 03-15-2025 Immature granulocytes/100 WBC (Bld) 1.400 % High 0.0-0.9 [facility] Comment on above: IG% - Immature Granu locytes (promyelocytes, myelocytes and metamyelocytes) > 1% indicates that a LEFT SHIFT is Present. MCV (mean corpuscular volume ) determinationOrdered By: Maria C Browning on 03-15-2025 MCV (RBC) [Entitic vol] 79.8 fL Low 80-94 [facility] Mean corpuscular hemoglobin (MCH) determinationOrdered By: [facility] on 03-15-2025 MCH (RBC) [Entitic mass] 26.0 pg Low 27.0-32.0 [facility] Mean corpuscular hemoglobin concentration (MCHC) determinationOrdered By: Maria C Browning on 03-15-2025 MCHC (RBC) [Mass/Vol] 32.6 g/dL 32-36 [facility] Mean platelet volume determi nationOrdered By: Maria C Browning on 03-15-2025 Platelet mean volume (Bld) [Entitic vol] 10.7 fL 6.2-12.0 [facility] Monocyte percentageOrdered B y: Maria C Browning on 03-15-2025 Monocytes/100 WBC (Bld) 10.4 % High 0-10 [facility] Neutrophil percentageOrdered By: [facility] on 03-15-2025 Neutrophils/100 WBC (Bld) 80.0 % High 47-70 [facility] Nucleated red blood cell per centageOrdered By: Maria C Browning on 03-15-2025 Nucleated RBC/100 WBC (Bld) [Ratio] 0 % 0-5 [facility] Platelet countOrdered By: Calli olmstead Nallely on 03-15-2025 Platelets (Bld) [#/Vol] 331 10*3/uL 150-450 [facility] RBC Auto (Bld) [#/Vol]Ordere d By: Maria C Nallely on 03-15-2025 RBC (Bld) [#/Vol] 3.42 10*6/uL Low 4.6-6.2 [facility] White blood cell (WBC) count Ordered By: Maria C Nallely on 03-15-2025 WBC (Bld) [#/Vol] 11.1 10*3/uL High 4.4-11.0 [facility] Absolute lymphocyte countOrd ered By: Maria C Nallely on 03-08-2025 Lymphocytes Auto (Unsp spec) [#/Vol] 0.90 10*3/uL 0.83-4.51 [facility] Absolute neutrophil countOrd ered By: Maria C Nallely on 03-08-2025 Neutrophils (Bld) [#/Vol] 11.3 10*3/uL High 2.0-7.7 [facility] Automated lymphocyte count a s percentage of total leukocytesOrdered By: Maria C Nallely on 03-08-2025 Lymphocytes/100 WBC Auto (Unsp spec) 6.5 % Low 19-41 [facility] Basophil percentageOrdered B y: Maria C Nallely on 03-08-2025 Basophils/100 WBC (Bld) 0.3 % 0-1 [facility] CBC W/Diff, Automatedon 02-10 Absolute Lymph 0.90 X10 3/uL Normal 0.83-4.51 [facility] Comment on above: Performed By: #### L 501.5500, L501.7300, L501.7400 #### [facility] [address] [place], [place], [id number] Absolute Neut 11.3 X10 3/uL High 2.0-7.7 [facility] Comment on above: Performed By: #### L 501.5500, L501.7300, L501.7400 #### [facility] [address] [place], [address] Basophils/100 WBC (Bld) 0.3 % Normal 0-1 [facility] Comment on above: Performed By: #### L 501.5500, L501.7300, L501.7400 #### [facility] [address] [place], [address] Eosinophils/100 WBC (Bld) 0.4 % Normal 0-5 [facility] Comment on above: Performed By: #### L 501.5500, L501.7300, L501.7400 #### [facility] [address] [place], [address] Erythrocyte distribution width (RBC) [Ratio] 15.7 % High 11.6-14.6 [facility] Comment on above: Performed By: #### L 501.5500, L501.7300, L501.7400 #### [facility] [address] [place], [address] Hematocrit (Bld) [Volume fraction] 29.3 % Low 40-54 [facility] Comment on above: Performed By: #### L 501.5500, L501.7300, L501.7400 #### [facility] [address] [place], [address] Hemoglobin (Bld) [Mass/Vol] 9.6 g/dL Low 13.0-16.5 [facility] Comment on above: Performed By: #### L 501.5500, L501.7300, L501.7400 #### [facility] [address] [place], [address] IG% 1.700 High 0.0-0.9 [facility] Comment on above: Result Comment: IG% - Immature Granulocytes (promyelocytes, myelocytes and metamyelocytes) > 1% indicates that a LEFT SHIFT is Present. Performed By: #### L 501.5500, L501.7300, L501.7400 #### [facility] [address] [place], [address] Lymphocytes/100 WBC (Bld) 6.5 % Low 19-41 [facility] Comment on above: Performed By: #### L 501.5500, L501.7300, L501.7400 #### [facility] [address] [place], [address] MCH (RBC) [Entitic mass] 26.0 pg Low 27.0-32.0 [facility] Comment on above: Performed By: #### L 501.5500, L501.7300, L501.7400 #### [facility] [address] [place], [address] MCHC (RBC) [Mass/Vol] 32.8 g/dL Normal 32-36 [facility] Comment on above: Performed By: #### L 501.5500, L501.7300, L501.7400 #### [facility] [address] [place], [address] MCV (RBC) [Entitic vol] 79.4 fL Low 80-94 [facility] Comment on above: Performed By: #### L 501.5500, L501.7300, L501.7400 #### [facility] [address] [place], [address] Monocytes/100 WBC (Bld) 9.3 % Normal 0-10 [facility] Comment on above: Performed By: #### L 501.5500, L501.7300, L501.7400 #### [facility] [address] [place], [address] Neutrophils/100 WBC (Bld) 81.8 % High 47-70 [facility] Comment on above: Performed By: #### L 501.5500, L501.7300, L501.7400 #### [facility] [address] [place], [address] Nucleated RBC (Bld) [#/Vol] 0 10*3/uL Normal 0-5 [facility] Comment on above: Performed By: #### L 501.5500, L501.7300, L501.7400 #### [facility] [address] [place], [address] Platelet mean volume (Bld) [Entitic vol] 10.0 fL Normal 6.2-12.0 [facility] Comment on above: Performed By: #### L 501.5500, L501.7300, L501.7400 #### [facility] [address] [place], [address] Platelets (Bld) [#/Vol] 381 10*3/uL Normal 150-450 [facility] Comment on above: Performed By: #### L 501.5500, L501.7300, L501.7400 #### [facility] [address] [place], [address] RBC (Bld) [#/Vol] 3.69 10*6/uL Low 4.6-6.2 [facility] Comment on above: Performed By: #### L 501.5500, L501.7300, L501.7400 #### [facility] [address] [place], [address] RDW SD 45.5 fl High 35.1-43.9 [facility] Comment on above: Performed By: #### L 501.5500, L501.7300, L501.7400 #### [facility] [address] [place], [address] WBC (Bld) [#/Vol] 13.8 10*3/uL High 4.4-11.0 [facility] Comment on above: Performed By: #### L 501.5500, L501.7300, L501.7400 #### [facility] [address] [place], [address] Eosinophil percentageOrdered By: [facility] Brow[facility] on 03-08-2025 Eosinophils/100 WBC (Bld) 0.4 % 0-5 [facility] Erythrocyte distribution wid th ratioOrdered By: [facility] Nallely on 03-08-2025 Erythrocyte distribution width (RBC) [Ratio] 15.7 % High 11.6-14.6 [facility] Erythrocyte distribution wid th standard deviationOrdered By: [facility] on 03-08-2025 Erythrocyte distribution width (RBC) [Ratio] 45.5 fl High 35.1-43.9 [facility] Hematocrit Auto (Bld) [Volum e fraction]Ordered By: [facility] Nallely on 03-08-2025 Hematocrit (Bld) [Volume fraction] 29.3 % Low 40-54 [facility] Hemoglobin measurementOrdere d By: [facility] Brow[facility] on 03-08-2025 Hemoglobin (Bld) [Mass/Vol] 9.6 g/dL Low 13.0-16.5 [facility] Immature granulocytes/100 WB C Auto (Bld)Ordered By: [facility] on 03-08-2025 Immature granulocytes/100 WBC (Bld) 1.700 % High 0.0-0.9 [facility] Comment on above: IG% - Immature Granu locytes (promyelocytes, myelocytes and metamyelocytes) > 1% indicates that a LEFT SHIFT is Present. MCV (mean corpuscular volume ) determinationOrdered By: Maria C Browning on 03-08-2025 MCV (RBC) [Entitic vol] 79.4 fL Low 80-94 [facility] Mean corpuscular hemoglobin (MCH) determinationOrdered By: [facility] Nallely on 03-08-2025 MCH (RBC) [Entitic mass] 26.0 pg Low 27.0-32.0 [facility] Mean corpuscular hemoglobin concentration (MCHC) determinationOrdered By: [facility] Nallely on 03-08-2025 MCHC (RBC) [Mass/Vol] 32.8 g/dL 32-36 [facility] Mean platelet volume determi nationOrdered By: Maria C Browning on 03-08-2025 Platelet mean volume (Bld) [Entitic vol] 10.0 fL 6.2-12.0 [facility] Monocyte percentageOrdered B y: Maria C Browning on 03-08-2025 Monocytes/100 WBC (Bld) 9.3 % 0-10 [facility] Neutrophil percentageOrdered By: [facility] on 03-08-2025 Neutrophils/100 WBC (Bld) 81.8 % High 47-70 [facility] Nucleated red blood cell per centageOrdered By: [facility] Nallely on 03-08-2025 Nucleated RBC/100 WBC (Bld) [Ratio] 0 % 0-5 [facility] Oncology Visit Reporton 02-10 Oncology Visit Report [facility] [place] [facility] [address] [place] [address] OFFICE VISIT Date of Service: 03/08/25 0859 MR#: [id number] Acct: [id number] Name: HYUN ELIAS Rep #: [id number] : 1975 From: Regino Burleson MD Age/Sex: 49/M [place] [facility] Status: Signed HPI Subjective Date of Service [...] Had dizzines after D1 but now fine. [facility] Medical History Constipation Encounter for antineoplastic [...] Auscultation: n (more content not included)... Normal [facility] Platelet countOrdered By: Calli Browning on 03-08-2025 Platelets (Bld) [#/Vol] 381 10*3/uL 150-450 [facility] RBC Auto (Bld) [#/Vol]Ordere d By: Maria C Browning on 03-08-2025 RBC (Bld) [#/Vol] 3.69 10*6/uL [facility] White blood cell (WBC) count Ordered By: Maria C Browning on 03-08-2025 WBC (Bld) [#/Vol] 13.8 10*3/uL High 4.4-11.0 [facility] Pulmonary Visit Reporton Pulmonary Visit Report [facility] [place] [address] [place] [address] OFFICE VISIT Date of Service: 03/07/25 MR#: [id number] Acct: [id number] Name: HYUN ELIAS Rep #: [id number] : 1975 Provider: RODRIGUEZ Cardenas Age/Sex: 49/M [place] [facility] Status: Signed Assessment and Plan Assessment [...] We will perform an overnight oximetry through [facility] to see if the patient would qualify [...] Acute Plan: Preforming a nocturnal oximetry with [facility] to evaluate for the need of supplemental [...] Additional Comments: This note was generated with 3nder dictation software. It may contain incorrect words, [...] 2025. If you recall, he has a 48-imzy-rrhr smoking history. He quit 2 months ago. [...] room air Intake Visit Reasons: Acute visit Weighter Required: No DME Vendor: N/a Accompanied by: [...] His tory (more content not included)... Normal [facility] Absolute lymphocyte countOrd ered By: Maria C Browning on 03-01-2025 Lymphocytes Auto (Unsp spec) [#/Vol] 1.13 10*3/uL 0.83-4.51 [facility] Absolute neutrophil countOrd ered By: Maria C Browning on 03-01-2025 Neutrophils (Bld) [#/Vol] 11.2 10*3/uL High 2.0-7.7 [facility] Anion gap in Serum or Plasma Ordered By: Maria C Browning on 03-01-2025 Anion gap [Moles/Vol] 14 mmol/L 5-15 [facility] Automated blood erythrocyte countOrdered By: Maria C Browning on 03-01-2025 RBC (Bld) [#/Vol] 3.90 10*6/uL Low 4.6-6.2 [facility] Comment on above: Performed By: #### L 100.0100, L506.0400, L501.3320, L500.4050 #### [facility] [address] [place], [address] Automated blood hematocrit ( percentage)Ordered By: Maria C Browning on 03-01-2025 Hematocrit (Bld) [Volume fraction] 31.4 % Low 40-54 [facility] Comment on above: Performed By: #### L 100.0100, L506.0400, L501.9520, L500.4050 #### [facility] [address] [place], [address] Automated lymphocyte count a s percentage of total leukocytesOrdered By: Maria C Coffeydallin on 03-01-2025 Lymphocytes/100 WBC Auto (Unsp spec) 8.4 % Low 19- [facility] BUN/creatinine ratioOrdered By: Maria C Coffeydallin on 03-01-2025 Urea nitrogen/Creatinine [Mass ratio] 12.9 mg/mg 10- [facility] Basophil percentageOrdered B y: Maria C Coffeysiena on 03-01-2025 Basophils/100 WBC (Bld) 0.7 % Normal 0-1 [facility] Comment on above: Performed By: #### L 100.0100, L506.0400, L501.9520, L500.4050 #### [facility] [address] [place], [address] Bilirubin, totalOrdered By: Maria C Coffeydallin on 03-01-2025 Bilirubin [Mass/Vol] 0.44 mg/dL 0.00-1.30 [facility] CBC W/Diff, Automatedon 02-10 Absolute Lymph 1.13 X10 3/uL Normal 0.83-4.51 [facility] Comment on above: Performed By: #### L 100.0100, L506.0400, L501.9520, L500.4050 #### [facility] [address] [place], [address] Absolute Neut 11.2 X10 3/uL High 2.0-7.7 [facility] Comment on above: Performed By: #### L 100.0100, L506.0400, L501.9520, L500.4050 #### [facility] [address] [place], [address] IG% 0.900 Normal 0.0-0.9 [facility] Comment on above: Result Comment: IG% - Immature Granulocytes (promyelocytes, myelocytes and metamyelocytes) > 1% indicates that a LEFT SHIFT is Present. Performed By: #### L 100.0100, L506.0400, L501.9520, L500.4050 #### [facility] [address] [place], [address] Lymphocytes/100 WBC (Bld) 8.4 % Low 19-41 [facility] Comment on above: Performed By: #### L 100.0100, L506.0400, L501.9520, L500.4050 #### [facility] [address] [place], [address] Nucleated RBC (Bld) [#/Vol] 0 10*3/uL Normal 0-5 [facility] Comment on above: Performed By: #### L 100.0100, L506.0400, L501.9520, L500.4050 #### [facility] [address] [place], [address] RDW SD 46.1 fl High 35.1-43.9 [facility] Comment on above: Performed By: #### L 100.0100, L506.0400, L501.9520, L500.4050 #### [facility] [address] [place], [address] Carbon dioxide, total [Moles /volume] in Central venous bloodOrdered By: Maria C Browning on 03-01-2025 CO2 [Moles/Vol] 21.0 mmol/L 21.0-32.0 [facility] Chloride assayOrdered By: Calli Browning on 03-01-2025 Chloride [Moles/Vol] 90 mmol/L Low 98-108 [facility] Comprehensive Metabolic Prof ilon 03-01-2025 Albumin [Mass/Vol] 2.9 g/dL Low 3.5-5.0 [facility] Comment on above: Performed By: #### L 100.0100, L506.0400, L501.9520, L500.4050 #### [facility] [address] [place], [address] Albumin/Globulin [Mass ratio] 0.6 {ratio} Low 0.9-2.4 [facility] Comment on above: Performed By: #### L 100.0100, L506.0400, L501.9520, L500.4050 #### [facility] [address] [place], [address] ALK PHOS 88 U/L Normal 40-129 [facility] Comment on above: Performed By: #### L 100.0100, L506.0400, L501.9520, L500.4050 #### [facility] [address] [place], [address] ALT [Catalytic activity/Vol] 15 U/L Normal <=46 [facility] Comment on above: Performed By: #### L 100.0100, L506.0400, L501.9520, L500.4050 #### [facility] [address] [place], [address] AST [Catalytic activity/Vol] 30 U/L Normal <=37 [facility] Comment on above: Performed By: #### L 100.0100, L506.0400, L501.9520, L500.4050 #### [facility] [address] [place], [address] Bilirubin [Mass/Vol] 0.44 mg/dL Normal 0.00-1.30 [facility] Comment on above: Performed By: #### L 100.0100, L506.0400, L501.9520, L500.4050 #### [facility] [address] [place], [address] BUN/CRE 12.9 RATIO Normal 10-20 [facility] Comment on above: Performed By: #### L 100.0100, L506.0400, L501.9520, L500.4050 #### [facility] [address] [place], [address] Calcium [Mass/Vol] 9.3 mg/dL Normal 7.6-11.0 [facility] Comment on above: Performed By: #### L 100.0100, L506.0400, L501.9520, L500.4050 #### [facility] [address] [place], [address] Chloride [Moles/Vol] 90 mmol/L Low 98-108 [facility] Comment on above: Performed By: #### L 100.0100, L506.0400, L501.9520, L500.4050 #### [facility] [address] [place], [address] CO2 [Moles/Vol] 21.0 mmol/L Normal 21.0-32.0 [facility] Comment on above: Performed By: #### L 100.0100, L506.0400, L501.9520, L500.4050 #### [facility] [address] [place], [address] Creatinine [Mass/Vol] 0.82 mg/dL Normal 0.70-1.20 [facility] Comment on above: Performed By: #### L 100.0100, L506.0400, L501.9520, L500.4050 #### [facility] [address] [place], [address] ECRCL 96.41 ml/min Normal 50-250 [facility] Comment on above: Performed By: #### L 100.0100, L506.0400, L501.9520, L500.4050 #### [facility] [address] [place], [address] GAP 14 Normal 5-15 [facility] Comment on above: Performed By: #### L 100.0100, L506.0400, L501.9520, L500.4050 #### [facility] [address] [place], [address] GFR/1.73 sq M.predicted among non-blacks MDRD (S/P/Bld) [Vol rate/Area] 106 mL/min/{1.73_m2} Normal >60 [facility] Comment on above: Result Comment: mL/m in/1.73m2 CKD-EPI Creatinine Equation (2020) Performed By: #### L 100.0100, L506.0400, L501.9520, L500.4050 #### [facility] [address] [place], [address] Globulin (S) [Mass/Vol] 5.1 g/dL High 2.2-4.2 [facility] Comment on above: Performed By: #### L 100.0100, L506.0400, L501.9520, L500.4050 #### [facility] [address] [place], [address] Glucose [Mass/Vol] 274 mg/dL High 70-99 [facility] Comment on above: Performed By: #### L 100.0100, L506.0400, L501.9520, L500.4050 #### [facility] [address] [place], [address] Potassium [Moles/Vol] 4.5 mmol/L Normal 3.3-5.1 [facility] Comment on above: Performed By: #### L 100.0100, L506.0400, L501.9520, L500.4050 #### [facility] [address] [place], [address] Sodium [Moles/Vol] 125 mmol/L Low 133-145 [facility] Comment on above: Performed By: #### L 100.0100, L506.0400, L501.9520, L500.4050 #### [facility] [address] [place], [address] T PROT 8.0 g/dL Normal 5.9-8.4 [facility] Comment on above: Performed By: #### L 100.0100, L506.0400, L501.9520, L500.4050 #### [facility] [address] [place], [address] Urea nitrogen [Mass/Vol] 11 mg/dL Normal 4-19 [facility] Comment on above: Performed By: #### L 100.0100, L506.0400, L501.9520, L500.4050 #### [facility] [address] [place], [address] Eosinophil percentageOrdered By: Maria C Browning on 03-01-2025 Eosinophils/100 WBC (Bld) 1.1 % Normal 0-5 [facility] Comment on above: Performed By: #### L 100.0100, L506.0400, L501.9520, L500.4050 #### [facility] [address] [place], [address] Erythrocyte distribution wid th ratioOrdered By: Maria C Browning on 03-01-2025 Erythrocyte distribution width (RBC) [Ratio] 15.9 % High 11.6-14.6 [facility] Comment on above: Performed By: #### L 100.0100, L506.0400, L501.9520, L500.4050 #### [facility] [address] [place], [address] Erythrocyte distribution wid th standard deviationOrdered By: Maria C Browning on 03-01-2025 Erythrocyte distribution width (RBC) [Ratio] 46.1 fl High 35.1-43.9 [facility] Glomerular filtration rate ( GFR) estimation/1.73 sq m using serum, plasma, or whole bOrdered By: Maria C Browning on 03-01-2025 GFR/1.73 sq M.predicted among non-blacks MDRD (S/P/Bld) [Vol rate/Area] 106 mL/min/{1.73_m2} >60 [facility] Comment on above: mL/min/1.73m2 CKD-EP I Creatinine Equation (2020) Hemoglobin measurementOrdere d By: Maria C Browning on 03-01-2025 Hemoglobin (Bld) [Mass/Vol] 10.1 g/dL Low 13.0-16.5 [facility] Comment on above: Performed By: #### L 100.0100, L506.0400, L501.9520, L500.4050 #### [facility] [address] [facility] [place], [address] Immature granulocytes/100 WB C Auto (Bld)Ordered By: Maria C Browning on 03-01-2025 Immature granulocytes/100 WBC (Bld) 0.900 % 0.0-0.9 [facility] Comment on above: IG% - Immature Granu locytes (promyelocytes, myelocytes and metamyelocytes) > 1% indicates that a LEFT SHIFT is Present. Laboratory - Chemistry and C hemistry - challengeOrdered By: Maria C Browning on 03-01-2025 AST [Catalytic activity/Vol] 30 U/L <38 [facility] MCV (mean corpuscular volume ) determinationOrdered By: Maria C Browning on 03-01-2025 MCV (RBC) [Entitic vol] 80.5 fL Normal 80-94 [facility] Comment on above: Performed By: #### L 100.0100, L506.0400, L501.9520, L500.4050 #### [facility] [address] [place], [address] Mean corpuscular hemoglobin (MCH) determinationOrdered By: Maria C Browning on 03-01-2025 MCH (RBC) [Entitic mass] 25.9 pg Low 27.0-32.0 [facility] Comment on above: Performed By: #### L 100.0100, L506.0400, L501.9520, L500.4050 #### [facility] [address] [place], [address] Mean corpuscular hemoglobin concentration (MCHC) determinationOrdered By: Maria C Browning on 03-01-2025 MCHC (RBC) [Mass/Vol] 32.2 g/dL Normal 32-36 [facility] Comment on above: Performed By: #### L 100.0100, L506.0400, L501.9520, L500.4050 #### [facility] [address] [place], [address] Mean platelet volume determi nationOrdered By: Maria C Browning on 03-01-2025 Platelet mean volume (Bld) [Entitic vol] 9.6 fL Normal 6.2-12.0 [facility] Comment on above: Performed By: #### L 100.0100, L506.0400, L501.9520, L500.4050 #### [facility] [address] [place], [address] Monocyte percentageOrdered B y: Maria C Browning on 03-01-2025 Monocytes/100 WBC (Bld) 5.8 % Normal 0-10 [facility] Comment on above: Performed By: #### L 100.0100, L506.0400, L501.9520, L500.4050 #### [facility] [address] [place], [address] Neutrophil percentageOrdered By: Didiersarahy Browning on 03-01-2025 Neutrophils/100 WBC (Bld) 83.1 % High 47-70 [facility] Comment on above: Performed By: #### L 100.0100, L506.0400, L501.9520, L500.4050 #### [facility] [address] [place], [address] Nucleated red blood cell per centageOrdered By: Maria C Browning on 03-01-2025 Nucleated RBC/100 WBC (Bld) [Ratio] 0 % 0-5 [facility] Oncology Visit Reporton 02-10 Oncology Visit Report [facility] [place] [facility] [place] [address] OFFICE VISIT Date of Service: 03/01/25 0831 MR#: [id number] Acct: [id number] Name: HYUN ELIAS Rep #: [id number] : 1975 From: Yelena Gallegos NP LOOM OPERATOR APPRENTICE -C Age/Sex: 49/M [place] [facility] Status: Signed HPI Subjective Date of Service [...] headache, chest pain, palpitations, wheezing, numbness tingling. [facility] Medical History (Updated 03/01/25 @ 10:42 by Yelena Gallegos LOOM OPERATOR APPRENTICE, LOOM OPERATOR APPRENTICE-C) Encounter for antineoplastic chemotherapy and immunotherapy Hyponatremia [...] for chronic (more content not included)... Normal [facility] Osmolality urOrdered By: Flor Gallegos on 03-01-2025 Osmolality (U) [Osmolality] 410 mOsm/KG >50 [facility] Comment on above: Normal Urine Referen ce Ranges Random: 50 - 1200 mOsm/kg H20 depending on fluid intake Random: >850 mOsm/kg after 12 hour fluid restriction 24 hour: ~300 - 900 mOsm/kg H2O Osmolality, Serumon 03-01-20 OSMOLALITY,SER 276 mOsm/KG Normal 275-295 [facility] Comment on above: Performed By: #### L 501.5500, L501.7300, L501.7400 #### [facility] [address] [place], [address] Osmolality, Urineon 03-01-20 OSMOLALITY,UR 410 mOsm/KG Normal [facility] Comment on above: Result Comment: Normal Urine Reference Ranges Random: 50 - 1200 mOsm/kg H20 depending on fluid intake Random: >850 mOsm/kg after 12 hour fluid restriction 24 hour: 300 - 900 mOsm/kg H2O Performed By: #### L 501.5500, L501.7300, L501.7400 #### [facility] [address] [place], [place], [address] Platelet countOrdered By: Calli Browning on 03-01-2025 Platelets (Bld) [#/Vol] 532 10*3/uL High 150-450 [facility] Comment on above: Performed By: #### L 100.0100, L506.0400, L501.9520, L500.4050 #### [facility] [address] [place], [address] Potassium measurement (mass/ volume)Ordered By: Maria C Browning on 03-01-2025 Potassium (Unsp spec) [Mass/Vol] 4.5 mmol/L 3.3-5.1 [facility] Serum creatinine measurement (mass/volume)Ordered By: Maria C Browning on 03-01-2025 Creatinine [Mass/Vol] 0.82 mg/dL 0.70-1.20 [facility] Serum globulin measurementOr dered By: Maria C Browning on 03-01-2025 Globulin (S) [Mass/Vol] 5.1 g/dL High 2.2-4.2 [facility] Serum glucose measurement (m ass/volume)Ordered By: Maria C Browning on 03-01-2025 Glucose [Mass/Vol] 274 mg/dL High 70-99 [facility] Serum or plasma alanine montenegro otransferase (ALT) measurementOrdered By: Maria C Browning on 03-01-2025 ALT [Catalytic activity/Vol] 15 U/L <47 [facility] Serum or plasma albumin darien urement (mass/volume)Ordered By: Maria C Browning on 03-01-2025 Albumin [Mass/Vol] 2.9 g/dL Low 3.5-5.0 [facility] Serum or plasma albumin/glob ulin mass ratioOrdered By: Maria C Browning on 03-01-2025 Albumin/Globulin [Mass ratio] 0.6 {ratio} Low 0.9-2.4 [facility] Serum or plasma alkaline maría sphatase measurementOrdered By: Maria C Browning on 03-01-2025 ALP [Catalytic activity/Vol] 88 U/L 40-129 [facility] Serum or plasma calcium darien urement (mass/volume)Ordered By: Maria C Nallely on 03-01-2025 Calcium [Mass/Vol] 9.3 mg/dL 7.6-11.0 [facility] Serum or plasma urea nitroge n measurement (mass/volume)Ordered By: Maria C Nallely on 03-01-2025 Urea nitrogen [Mass/Vol] 11 mg/dL 4-19 [facility] Sodium levelOrdered By: Didier weathers Nallely on 03-01-2025 Sodium [Moles/Vol] 125 mmol/L Low 133-145 [facility] T4 Free Directon 03-01-2025 T4 FREE DIRECT 1.20 ng/dL Normal 0.76-1.46 [facility] Comment on above: Performed By: #### L 100.0100, L506.0400, L501.9520, L500.4050 #### [facility] [address] [place], [address] T4 freeOrdered By: Didiersarahy painter on 03-01-2025 Free T4 [Mass/Vol] 1.20 ng/dL 0.76-1.46 [facility] TSH DL <= 0.005 mIU/L QnOrde red By: Didiersarahy Browning on 03-01-2025 TSH Qn 3.950 uIU/mL 0.300-4.200 [facility] Thyroid Stim Hormone (TSH)on 03-01-2025 TSH 3.950 uIU/mL Normal 0.300-4.200 [facility] Comment on above: Performed By: #### L 100.0100, L506.0400, L501.9520, L500.4050 #### [facility] [address] [place], [address] Total proteinOrdered By: Abran kellogg Nallely on 03-01-2025 Protein [Mass/Vol] 8.0 g/dL 5.9-8.4 [facility] Urine Sodiumon 03-01-2025 Sodium (U) [Moles/Vol] 30 mmol/L Normal Not Establ. [facility] Comment on above: Performed By: #### L 501.5500, L501.7300, L501.7400 #### [facility] [address] [place], [address] Urine sodium measurement (mo les/volume)Ordered By: Yelena Gallegos on 03-01-2025 Sodium (U) [Moles/Vol] 30 mmol/L Not Establ. [facility] White blood cell (WBC) count Ordered By: Maria C Browning on 03-01-2025 WBC (Bld) [#/Vol] 13.5 10*3/uL High 4.4-11.0 [facility] Comment on above: Performed By: #### L 100.0100, L506.0400, L501.9520, L500.4050 #### [facility] [address] [place], [address] CBC W/Diff, Automatedon 02-09 Absolute Neut Normal 2.0-7.7 [facility] Comment on above: Result Comment: Canc elled via OM: moving to RCR account Performed By: #### L 501.5500, L501.7300, L501.7400 #### [facility] [address] [place], [address] HCT Normal 40-54 [facility] Comment on above: Result Comment: Canc elled via OM: moving to RCR account Performed By: #### L 501.5500, L501.7300, L501.7400 #### [facility] [address] [place], [address] HGB Normal 13.0-16.5 [facility] Comment on above: Result Comment: Canc elled via OM: moving to RCR account Performed By: #### L 501.5500, L501.7300, L501.7400 #### [facility] [address] [place], [address] MCH Normal 27.0-32.0 [facility] Comment on above: Result Comment: Canc elled via OM: moving to RCR account Performed By: #### L 501.5500, L501.7300, L501.7400 #### [facility] [address] [place], [address] MCHC Normal 32-36 [facility] Comment on above: Result Comment: Canc elled via OM: moving to RCR account Performed By: #### L 501.5500, L501.7300, L501.7400 #### [facility] [address] [place], [address] MCV Normal 80-94 [facility] Comment on above: Result Comment: Canc elled via OM: moving to RCR account Performed By: #### L 501.5500, L501.7300, L501.7400 #### [facility] [address] [place], [address] NEUT% Normal 47-70 [facility] Comment on above: Result Comment: Canc elled via OM: moving to RCR account Performed By: #### L 501.5500, L501.7300, L501.7400 #### [facility] [address] [place], [address] PLT Normal 150-450 [facility] Comment on above: Result Comment: Canc elled via OM: moving to RCR account Performed By: #### L 501.5500, L501.7300, L501.7400 #### [facility] [address] [place], [address] RBC Normal 4.6-6.2 [facility] Comment on above: Result Comment: Canc elled via OM: moving to RCR account Performed By: #### L 501.5500, L501.7300, L501.7400 #### [facility] [address] [place], [address] RDW CV Normal 11.6-14.6 [facility] Comment on above: Result Comment: Canc elled via OM: moving to RCR account Performed By: #### L 501.5500, L501.7300, L501.7400 #### [facility] [address] [place], [address] RDW SD Normal 35.1-43.9 [facility] Comment on above: Result Comment: Canc elled via OM: moving to RCR account Performed By: #### L 501.5500, L501.7300, L501.7400 #### [facility] [address] [place], [address] WBC Normal 4.4-11.0 [facility] Comment on above: Result Comment: Canc elled via OM: moving to RCR account Performed By: #### L 501.5500, L501.7300, L501.7400 #### [facility] [address] [place], [address] Comprehensive Metabolic Prof ilon 02-22-2025 ALB Normal 3.5-5.0 [facility] Comment on above: Result Comment: Canc elled via OM: moving to RCR account Performed By: #### L 501.5500, L501.7300, L501.7400 #### [facility] [address] [place], [address] ALK PHOS Normal 40-129 [facility] Comment on above: Result Comment: Canc elled via OM: moving to RCR account Performed By: #### L 501.5500, L501.7300, L501.7400 #### [facility] [address] [place], [address] ALT Normal <=46 [facility] Comment on above: Result Comment: Canc elled via OM: moving to RCR account Performed By: #### L 501.5500, L501.7300, L501.7400 #### [facility] [address] [place], [address] AST Normal <=37 [facility] Comment on above: Result Comment: Canc elled via OM: moving to RCR account Performed By: #### L 501.5500, L501.7300, L501.7400 #### [facility] [address] [place], [address] BUN Normal 4-19 [facility] Comment on above: Result Comment: Canc elled via OM: moving to RCR account Performed By: #### L 501.5500, L501.7300, L501.7400 #### [facility] [address] [place], [address] BUN/CRE Normal 10-20 [facility] Comment on above: Result Comment: Canc elled via OM: moving to RCR account Performed By: #### L 501.5500, L501.7300, L501.7400 #### [facility] [address] [place], [address] Calcium Normal 7.6-11.0 [facility] Comment on above: Result Comment: Canc elled via OM: moving to RCR account Performed By: #### L 501.5500, L501.7300, L501.7400 #### [facility] [address] [place], [address] CL Normal 98-108 [facility] Comment on above: Result Comment: Canc elled via OM: moving to RCR account Performed By: #### L 501.5500, L501.7300, L501.7400 #### [facility] [address] [place], [address] CO2 Normal 21.0-32.0 [facility] Comment on above: Result Comment: Canc elled via OM: moving to RCR account Performed By: #### L 501.5500, L501.7300, L501.7400 #### [facility] [address] [place], [address] CREAT,SERUM Normal 0.70-1.20 [facility] Comment on above: Result Comment: Canc elled via OM: moving to RCR account Performed By: #### L 501.5500, L501.7300, L501.7400 #### [facility] [address] [place], [address] eGFR Normal >60 [facility] Comment on above: Result Comment: Canc elled via OM: moving to RCR account Performed By: #### L 501.5500, L501.7300, L501.7400 #### [facility] [address] [place], [address] GAP Normal 5-15 [facility] Comment on above: Result Comment: Canc elled via OM: moving to RCR account Performed By: #### L 501.5500, L501.7300, L501.7400 #### [facility] [address] [place], [address] GLU Normal 70-99 [facility] Comment on above: Result Comment: Canc elled via OM: moving to RCR account Performed By: #### L 501.5500, L501.7300, L501.7400 #### [facility] [address] [place], [address] Potassium Normal 3.3-5.1 [facility] Comment on above: Result Comment: Canc elled via OM: moving to RCR account Performed By: #### L 501.5500, L501.7300, L501.7400 #### [facility] [address] [place], [address] T BILI Normal 0.00-1.30 [facility] Comment on above: Result Comment: Canc elled via OM: moving to RCR account Performed By: #### L 501.5500, L501.7300, L501.7400 #### [facility] [address] [place], [address] T PROT Normal 5.9-8.4 [facility] Comment on above: Result Comment: Canc elled via OM: moving to RCR account Performed By: #### L 501.5500, L501.7300, L501.7400 #### [facility] [address] [place], [address] Comprehensive Metabolic Profil Normal 133-145 [facility] Comment on above: Result Comment: Canc elled via OM: moving to RCR account Performed By: #### L 501.5500, L501.7300, L501.7400 #### [facility] [address] [place], [address] Bedside Glucoseon 02-20-2025 FINGERSTICK GLU 215 mg/dL High 74-106 [facility] Comment on above: Result Comment: MOLLY PERSON OF PATIENT CARE PER NURSING PROTOCOL Performed By: #### L 501.080 #### [facility] [address] [place], [address] CXR for Line Placementon CXR for Line Placement [facility] Imaging Services [address] [place] [address] CXR for Line Placement MR#: [id number] Acct: [id number] Name: HYUN ELIAS Rep #: [id number] : 1975 M 49 From: Franky Borden MD PCP: Dr. Cristian Adame MD Status: [facility] Study: CXR for Line Placement Date of Exam: 02/20/25 Exam# [id number] Ordering Dr: Hernan Vincent PROCEDURE: CXR FOR [...] the right port. No pneumothorax. Reading Location: [id number] CC: Dr. Hernan Vincent MD; Dr. Cristian Adame MD Nuisance Animal Damage Control Agent: Signed Normal [facility] Discharge Instructionon 02-09 Discharge Instruction [facility] Medical Records Department [address] [place] [address] Instructions for Home/Discharge Instructions 02/20/25 1131 MR#: [id number] Acct: [id number] Name: HYUN ELIAS Rep #: [id number] : 1975 49 From: Hernan Vincent MD PCP: Dr. Cristian Adame MD Status:REG [facility] Discharge Instructions Procedure Port-A-Cath Diet Discharge Diet: [...] With: Hernan Vincent MD When: as needed [phone] Test Results: Test results from this visit will be discussed in further detail at your follow-up appointment, if applicable. Discharge Plan Admission Attending Provider: Hernan Vincent Primary Care Provider: Cristian Adame Instructions Print Language: Maldivian Discharge Orders/Prescriptions Prescriptions: No Action folic acid [...] MD CC: Dr. Cristian Adame MD Signed [facility] Glucose measurement at [facility] deOrdered By: Hernan Vincent on 02-20-2025 Glucose [Mass/Vol] 215 mg/dL High 74-106 [facility] Comment on above: MANAGEMENT OF PATIEN T CARE PER NURSING PROTOCOL MR/POSTOP.David 02-20-2025 MR/POSTOP.[facility] Medical Records Department [address] [place] [address] Anesthesia Postop Eval I 02/20/25 1135 MR#: [id number] Acct: [id number] Name: HYUN ELIAS Rep #: [id number] : 1975 49 From: Ana Viramontes CRNA PCP: Dr. Cristian Adame MD Status:REG SDC Y Race: C Location: [place] [address] Anesthesia: Postop Eval I Current Vital Signs [...] Postop Eval 1 completed: Yes 02/20/25 1136 Date Ana Viramontes CRNA Cosigner Signature: Date CC: Signed Normal [facility] Operative Reporton 5 Operative Report [facility] Medical Records Department [address] [place] [address] Operative Report 02/20/25 1130 MR#: [id number] Acct: [id number] Name: HYUN ELIAS Rep #: [id number] : 1975 49 From: Hernan Vincent MD PCP: Dr. Cristian Adame MD Status:[facility] Location: [place] [address] Operative Report (Standard) Operative Information Date of Procedure: 02/20/25 Pre-Operative Diagnosis: Need for vascular access for chemotherapy for lung cancer Post-Operative Diagnosis: Same Surgery/Procedure Performed: Ultrasound and fluoroscopy guided right chest port placement utilizing right IJ supervisor inspecting: No Type of Anesthesia: Local MAC RN Documented Start/Stop Times: Operation Date: 02/20/25 11:00 Case Time Into Pre-Op 02/20/25 09:13 Out of Pre-Op 02/20/25 10:53 Anesthesia Start 02/20/25 10:55 Into Room 02/20/25 10:55 Procedure Start 02/20/25 11:13 Procedure End 02/20/25 11:26 Procedure Start Time: 11:13 Procedure Stop Time: 11:26 Select all DRAINS/GRAFTS/IMPLANTS that apply: Implanted device Implanted device details: 8 [place] PowerPort Estimated Blood Loss: 5 Specimen collected: [...] MD; Dr. Cristian Adame MD [facility] (FAMPWS ) HYUN ELIAS ([id number]) 1975 M Date Time Provider Department 02/16/25 1:40 PM CRISTIAN ADAMEPWS During your visit today, we recorded the [...] try calorie-rich drinks such as Ensure or [place] Instant Breakfast to help maintain your weight. - Port placement is scheduled at the hospital on the to prepare for chemotherapy access--please arrive as planned. - Your oncology team will begin chemo-immunotherapy with Abraxane, carboplatin, and pembrolizumab; stay in close contact with them for treatment dates and instructions. - All new and adjusted prescriptions have been sent to [facility] for your convenience. - Call or [...] facility-administered medicat (more content not included)... Normal [facility] MR/Mukesh 02-15-2025 MR/PAT.[facility] Medical Records Department [address] [place] [address] PAT - Anesthesia 02/15/25 1656 MR#: [id number] Acct: [id number] Name: HYUN ELIAS Rep #: [id number] : 1975 49 From: Naeem Carter MD PCP: Dr. 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 Hx Hospitalization No 02/15/25 15:09 Any Problems [...] take am of surgery PONV PONV - motion picture equipment machinist: PONV - motion picture equipment machinist Female No 02/15/25 15:09 HX of Motion [...] 02/12/25 14:31 Respiratory Assessment Respiratory Assessment - motion picture equipment machinist: Respiratory Tract Infection Hx - motion picture equipment machinist Hx Respiratory Tract Infection No 02/15/25 15:09 STOP Sleep Apnea STOP Sleep Apnea - motion picture equipment machinist: STOP Sleep Apnea - motion picture equipment machinist Hx Hypertension No 02/15/25 15:09 Hx Sleep [...] Tobacco Use History Tobacco Use History - motion picture equipment machinist: Tobacco Use History - motion picture equipment machinist Tobacco Use Smoking Status Former smoker 02/15/25 15:09 Hx Tobacco Use Yes 02/15/25 15:09 Years Smoking Packs Smoked per Day Smoking Cessation Date was Yes - quit smoking within 15 02/15/25 15:09 within the last 15 years years Hx Smoking Cessation Date Hx Smoking Cessation Counseling Hematologic Medial History Hematologic Hx - motion picture equipment machinist: 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 Normal [facility] Surgery Visit Reporton 02-15 Surgery Visit Report [facility] [address] [place] [address] OFFICE VISIT Date of Service: 02/15/25 MR#: [id number] Acct: [id number] Name: HYUN ELIAS Rep #: [id number] : 1975 Provider: Dr. Hernan mulligan MD Age/Sex: 49/M Location: [facility] Status: Signed Intake Vital Signs [...] to proc (more content not included)... Normal [facility] ([id number]) 1975 M Date Time Provider Department 02/13/25 CRISTIAN ADAME During your visit today, we recorded the following information about you: Emelia Mcclendon RN 02/13/2025 3:59 PM Signed Patient's partner Trudy Rice calling in. States pt has been diagnosed with Stage IV lung cancer with metastasis. Sees [facility]. Pt to be getting an [...] medication. Please call Trudy back with reply. [phone] DOLORES Mendoza, Cristian Melton MD 02/13/2025 4:20 PM Addendum That is [...] Fully Assessed Reason for Visit: Patient Request [[id number]] Prescriptions as of 02/13/2025 - oxyCODONE IR [...] Status:Closed by RAIZA RODRIGEZ on 02/13/25 Normal [facility] Oncology Visit Reporton Oncology Visit Report [facility] [address] [place] [address] OFFICE VISIT Date of Service: 02/13/25 1643 MR#: [id number] Acct: [id number] Name: HYUN ELIAS DANY Rep #: [id number] : 1975 From: Yelena Gallegos NP LOOM OPERATOR APPRENTICE -C Age/Sex: 49/M [place] [facility] Status: Signed HPI Subjective Date of Service [...] education visit to discuss Abraxane, carboplatin, pembrolizumab. [facility] Medical History (Updated 02/13/25 @ 16:57 by Yelena Gallegos NP, LOOM OPERATOR APPRENTICE-C) Encounter for education Surgical History History of [...] and pr (more content not included)... Normal [facility] Absolute lymphocyte countOrd ered By: [facility] on 02-12-2025 Lymphocytes Auto (Unsp spec) [#/Vol] 1.02 10*3/uL 0.83-4.51 [facility] Absolute neutrophil countOrd ered By: [facility] on 02-12-2025 Neutrophils (Bld) [#/Vol] 7.8 10*3/uL High 2.0-7.7 [facility] Anion gap in Serum or Plasma Ordered By: Regino Calderon on 02-12-2025 Anion gap [Moles/Vol] 12 mmol/L 5-15 [facility] Automated lymphocyte count a s percentage of total leukocytesOrdered By: [facility] on 02-12-2025 Lymphocytes/100 WBC Auto (Unsp spec) 10.5 % Low 19-41 [facility] BUN/creatinine ratioOrdered By: [facility] on 02-12-2025 Urea nitrogen/Creatinine [Mass ratio] 12.9 mg/mg 10-20 [facility] Basophil percentageOrdered B y: [facility] on 02-12-2025 Basophils/100 WBC (Bld) 0.8 % 0-1 [facility] Bilirubin, totalOrdered By: [facility] on 02-12-2025 Bilirubin [Mass/Vol] 0.49 mg/dL 0.00-1.30 [facility] CBC W/Diff, Automatedon Absolute Lymph 1.02 X10 3/uL Normal 0.83-4.51 [facility] Comment on above: Performed By: #### L 500.4050, L100.0100, L501.2300, L504.2610, L501.5200 #### [facility] [address] [place], [address] Absolute Neut 7.8 X10 3/uL High 2.0-7.7 [facility] Comment on above: Performed By: #### L 500.4050, L100.0100, L501.2300, L504.2610, L501.5200 #### [facility] [address] [place], [address] Basophils/100 WBC (Bld) 0.8 % Normal 0-1 [facility] Comment on above: Performed By: #### L 500.4050, L100.0100, L501.2300, L504.2610, L501.5200 #### [facility] [address] [place], [address] Eosinophils/100 WBC (Bld) 1.0 % Normal 0-5 [facility] Comment on above: Performed By: #### L 500.4050, L100.0100, L501.2300, L504.2610, L501.5200 #### [facility] [address] [place], [address] Erythrocyte distribution width (RBC) [Ratio] 15.2 % High 11.6-14.6 [facility] Comment on above: Performed By: #### L 500.4050, L100.0100, L501.2300, L504.2610, L501.5200 #### [facility] [address] [place], [address] Hematocrit (Bld) [Volume fraction] 32.7 % Low 40-54 [facility] Comment on above: Performed By: #### L 500.4050, L100.0100, L501.2300, L504.2610, L501.5200 #### [facility] [address] [place], [address] Hemoglobin (Bld) [Mass/Vol] 10.4 g/dL Low 13.0-16.5 [facility] Comment on above: Performed By: #### L 500.4050, L100.0100, L501.2300, L504.2610, L501.5200 #### [facility] [address] [place], [address] IG% 0.700 Normal 0.0-0.9 [facility] Comment on above: Result Comment: IG% - Immature Granulocytes (promyelocytes, myelocytes and metamyelocytes) > 1% indicates that a LEFT SHIFT is Present. Performed By: #### L 500.4050, L100.0100, L501.2300, L504.2610, L501.5200 #### [facility] [address] [place], [address] Lymphocytes/100 WBC (Bld) 10.5 % Low 19-41 [facility] Comment on above: Performed By: #### L 500.4050, L100.0100, L501.2300, L504.2610, L501.5200 #### [facility] [address] [place], [address] MCH (RBC) [Entitic mass] 25.9 pg Low 27.0-32.0 [facility] Comment on above: Performed By: #### L 500.4050, L100.0100, L501.2300, L504.2610, L501.5200 #### [facility] [address] [place], [address] MCHC (RBC) [Mass/Vol] 31.8 g/dL Low 32-36 [facility] Comment on above: Performed By: #### L 500.4050, L100.0100, L501.2300, L504.2610, L501.5200 #### [facility] [address] [place], [address] MCV (RBC) [Entitic vol] 81.5 fL Normal 80-94 [facility] Comment on above: Performed By: #### L 500.4050, L100.0100, L501.2300, L504.2610, L501.5200 #### [facility] [address] [place], [address] Monocytes/100 WBC (Bld) 6.9 % Normal 0-10 [facility] Comment on above: Performed By: #### L 500.4050, L100.0100, L501.2300, L504.2610, L501.5200 #### [facility] [address] [place], [address] Neutrophils/100 WBC (Bld) 80.1 % High 47-70 [facility] Comment on above: Performed By: #### L 500.4050, L100.0100, L501.2300, L504.2610, L501.5200 #### [facility] [address] [place], [address] Nucleated RBC (Bld) [#/Vol] 0 10*3/uL Normal 0-5 [facility] Comment on above: Performed By: #### L 500.4050, L100.0100, L501.2300, L504.2610, L501.5200 #### [facility] [address] [place], [address] Platelet mean volume (Bld) [Entitic vol] 9.9 fL Normal 6.2-12.0 [facility] Comment on above: Performed By: #### L 500.4050, L100.0100, L501.2300, L504.2610, L501.5200 #### [facility] [address] [place], [address] Platelets (Bld) [#/Vol] 493 10*3/uL High 150-450 [facility] Comment on above: Performed By: #### L 500.4050, L100.0100, L501.2300, L504.2610, L501.5200 #### [facility] [address] [place], [address] RBC (Bld) [#/Vol] 4.01 10*6/uL Low 4.6-6.2 [facility] Comment on above: Performed By: #### L 500.4050, L100.0100, L501.2300, L504.2610, L501.5200 #### [facility] [address] [place], [address] RDW SD 45.8 fl High 35.1-43.9 [facility] Comment on above: Performed By: #### L 500.4050, L100.0100, L501.2300, L504.2610, L501.5200 #### [facility] [address] [place], [address] WBC (Bld) [#/Vol] 9.7 10*3/uL Normal 4.4-11.0 [facility] Comment on above: Performed By: #### L 500.4050, L100.0100, L501.2300, L504.2610, L501.5200 #### [facility] [address] [place], [address] Carbon dioxide, total [Moles /volume] in Central venous bloodOrdered By: Regino Burleson on 02-12-2025 CO2 [Moles/Vol] 21.6 mmol/L 21.0-32.0 [facility] Chloride assayOrdered By: Sandie Burleson on 02-12-2025 Chloride [Moles/Vol] 92 mmol/L Low 98-108 [facility] Comprehensive Metabolic Prof ilon 02-12-2025 Albumin [Mass/Vol] 3.1 g/dL Low 3.5-5.0 [facility] Comment on above: Performed By: #### L 501.5500, L501.7300, L501.7400 #### [facility] [address] [place], [address] Albumin/Globulin [Mass ratio] 0.6 {ratio} Low 0.9-2.4 [facility] Comment on above: Performed By: #### L 501.5500, L501.7300, L501.7400 #### [facility] [address] [place], [address] ALK PHOS 95 U/L Normal 40-129 [facility] Comment on above: Performed By: #### L 501.5500, L501.7300, L501.7400 #### [facility] [address] [place], [address] ALT [Catalytic activity/Vol] 27 U/L Normal <=46 [facility] Comment on above: Performed By: #### L 501.5500, L501.7300, L501.7400 #### [facility] [address] [place], [address] AST [Catalytic activity/Vol] 31 U/L Normal <=37 [facility] Comment on above: Performed By: #### L 501.5500, L501.7300, L501.7400 #### [facility] [address] [place], [address] Bilirubin [Mass/Vol] 0.49 mg/dL Normal 0.00-1.30 [facility] Comment on above: Performed By: #### L 501.5500, L501.7300, L501.7400 #### [facility] [address] [place], [address] BUN/CRE 12.9 RATIO Normal 10-20 [facility] Comment on above: Performed By: #### L 501.5500, L501.7300, L501.7400 #### [facility] [address] [place], [address] Calcium [Mass/Vol] 9.2 mg/dL Normal 7.6-11.0 [facility] Comment on above: Performed By: #### L 501.5500, L501.7300, L501.7400 #### [facility] [address] [place], [address] Chloride [Moles/Vol] 92 mmol/L Low 98-108 [facility] Comment on above: Performed By: #### L 501.5500, L501.7300, L501.7400 #### [facility] [address] [place], [address] CO2 [Moles/Vol] 21.6 mmol/L Normal 21.0-32.0 [facility] Comment on above: Performed By: #### L 501.5500, L501.7300, L501.7400 #### [facility] [address] [place], [address] Creatinine [Mass/Vol] 0.84 mg/dL Normal 0.70-1.20 [facility] Comment on above: Performed By: #### L 501.5500, L501.7300, L501.7400 #### [facility] [address] [place], [address] GAP 12 Normal 5-15 [facility] Comment on above: Performed By: #### L 501.5500, L501.7300, L501.7400 #### [facility] [address] [place], [address] GFR/1.73 sq M.predicted among non-blacks MDRD (S/P/Bld) [Vol rate/Area] 106 mL/min/{1.73_m2} Normal >60 [facility] Comment on above: Result Comment: mL/m in/1.73m2 CKD-EPI Creatinine Equation (2020) Performed By: #### L 501.5500, L501.7300, L501.7400 #### [facility] [address] [place], [address] Globulin (S) [Mass/Vol] 4.8 g/dL High 2.2-4.2 [facility] Comment on above: Performed By: #### L 501.5500, L501.7300, L501.7400 #### [facility] [address] [place], [address] Glucose [Mass/Vol] 277 mg/dL High 70-99 [facility] Comment on above: Performed By: #### L 501.5500, L501.7300, L501.7400 #### [facility] [address] [place], [address] Potassium [Moles/Vol] 4.3 mmol/L Normal 3.3-5.1 [facility] Comment on above: Performed By: #### L 501.5500, L501.7300, L501.7400 #### [facility] [address] [place], [address] Sodium [Moles/Vol] 126 mmol/L Low 133-145 [facility] Comment on above: Performed By: #### L 501.5500, L501.7300, L501.7400 #### [facility] [address] [place], [address] T PROT 7.9 g/dL Normal 5.9-8.4 [facility] Comment on above: Performed By: #### L 501.5500, L501.7300, L501.7400 #### [facility] [address] [place], [address] Urea nitrogen [Mass/Vol] 11 mg/dL Normal 4-19 [facility] Comment on above: Performed By: #### L 501.5500, L501.7300, L501.7400 #### [facility] [address] [place], [place], [address] Eosinophil percentageOrdered By: [facility] on 02-12-2025 Eosinophils/100 WBC (Bld) 1.0 % 0-5 [facility] Erythrocyte distribution wid th ratioOrdered By: [facility] on 02-12-2025 Erythrocyte distribution width (RBC) [Ratio] 15.2 % High 11.6-14.6 [facility] Erythrocyte distribution wid th standard deviationOrdered By: [facility] on 02-12-2025 Erythrocyte distribution width (RBC) [Ratio] 45.8 fl High 35.1-43.9 [facility] Glomerular filtration rate ( GFR) estimation/1.73 sq m using serum, plasma, or whole bOrdered By: [facility] on 02-12-2025 GFR/1.73 sq M.predicted among non-blacks MDRD (S/P/Bld) [Vol rate/Area] 106 mL/min/{1.73_m2} >60 [facility] Comment on above: mL/min/1.73m2 CKD-EP I Creatinine Equation (2020) Hematocrit Auto (Bld) [Volum e fraction]Ordered By: [facility] on 02-12-2025 Hematocrit (Bld) [Volume fraction] 32.7 % Low 40-54 [facility] Hemoglobin measurementOrdere d By: [facility] on 02-12-2025 Hemoglobin (Bld) [Mass/Vol] 10.4 g/dL Low 13.0-16.5 [facility] Immature granulocytes/100 WB C Auto (Bld)Ordered By: Regino Burleson on 02-12-2025 Immature granulocytes/100 WBC (Bld) 0.700 % 0.0-0.9 [facility] Comment on above: IG% - Immature Granu locytes (promyelocytes, myelocytes and metamyelocytes) > 1% indicates that a LEFT SHIFT is Present. LDHon 02-12-2025 LDH 113 U/L Normal 87-241 [facility] Comment on above: Order Comment: 1 Performed By: #### L 501.5500, L501.7300, L501.7400 #### [facility] [address] [place], [address] Laboratory - Chemistry and C hemistry - challengeOrdered By: Regino Burleson on 02-12-2025 AST [Catalytic activity/Vol] 31 U/L <38 [facility] Lactate dehydrogenase (LDH) measurementOrdered By: Regino Burleson on 02-12-2025 LDH [Catalytic activity/Vol] 113 U/L 87-241 [facility] MCV (mean corpuscular volume ) determinationOrdered By: Regino Burleson on 02-12-2025 MCV (RBC) [Entitic vol] 81.5 fL 80-94 [facility] Magnesiumon 02-12-2025 Magnesium [Mass/Vol] 1.7 mg/dL Normal 1.5-2.2 [facility] Comment on above: Performed By: #### L 501.5500, L501.7300, L501.7400 #### [facility] [address] [place], [address] Magnesium measurement (mass/ volume)Ordered By: Regino Burleson on 02-12-2025 Magnesium (Unsp spec) [Mass/Vol] 1.7 mg/dL 1.5-2.2 [facility] Mean corpuscular hemoglobin (MCH) determinationOrdered By: Regino Burleson on 02-12-2025 MCH (RBC) [Entitic mass] 25.9 pg Low 27.0-32.0 [facility] Mean corpuscular hemoglobin concentration (MCHC) determinationOrdered By: Regino Burleson on 02-12-2025 MCHC (RBC) [Mass/Vol] 31.8 g/dL Low 32-36 [facility] Mean platelet volume determi nationOrdered By: Regino Burleson on 02-12-2025 Platelet mean volume (Bld) [Entitic vol] 9.9 fL 6.2-12.0 [facility] Monocyte percentageOrdered B y: Regino Burleson on 02-12-2025 Monocytes/100 WBC (Bld) 6.9 % 0-10 [facility] Neutrophil percentageOrdered By: Regino Burleson on 02-12-2025 Neutrophils/100 WBC (Bld) 80.1 % High 47-70 [facility] Nucleated red blood cell per centageOrdered By: Regino Burleson on 02-12-2025 Nucleated RBC/100 WBC (Bld) [Ratio] 0 % 0-5 [facility] Oncology Visit Reporton Oncology Visit Report [facility] [place] [address] OFFICE VISIT Date of Service: 02/12/25 1420 MR#: [id number] Acct: [id number] Name: HYUN ELIAS Rep #: [id number] : 1975 From: Regino Burleson MD Age/Sex: 49/M [place] [facility] Status: Signed HPI Subjective Date of Service [...] he is being given narcotics by PCP. [facility] Surgical History History of hernia surgery [...] to palpa (more content not included)... Normal [facility] Phosphoruson 02-12-2025 Phosphate [Mass/Vol] 3.4 mg/dL Normal 2.7-4.5 [facility] Comment on above: Performed By: #### L 501.5500, L501.7300, L501.7400 #### [facility] [address] [place], [address] Platelet countOrdered By: Sandie Burleson on 02-12-2025 Platelets (Bld) [#/Vol] 493 10*3/uL High 150-450 [facility] Potassium measurement (mass/ volume)Ordered By: Regino Burleson on 02-12-2025 Potassium (Unsp spec) [Mass/Vol] 4.3 mmol/L 3.3-5.1 [facility] RBC Auto (Bld) [#/Vol]Ordere d By: Regino Burleson on 02-12-2025 RBC (Bld) [#/Vol] 4.01 10*6/uL Low 4.6-6.2 [facility] Serum creatinine measurement (mass/volume)Ordered By: Regino [place]leson on 02-12-2025 Creatinine [Mass/Vol] 0.84 mg/dL 0.70-1.20 [facility] Serum globulin measurementOr dered By: Regino Burleson on 02-12-2025 Globulin (S) [Mass/Vol] 4.8 g/dL High 2.2-4.2 [facility] Serum glucose measurement (m ass/volume)Ordered By: Regino Burleson on 02-12-2025 Glucose [Mass/Vol] 277 mg/dL High 70-99 [facility] Serum or plasma alanine montenegro otransferase (ALT) measurementOrdered By: Regino Burleson on 02-12-2025 ALT [Catalytic activity/Vol] 27 U/L <47 [facility] Serum or plasma albumin darien urement (mass/volume)Ordered By: Regino Burleson on 02-12-2025 Albumin [Mass/Vol] 3.1 g/dL Low 3.5-5.0 [facility] Serum or plasma albumin/glob ulin mass ratioOrdered By: Regino Burleson on 02-12-2025 Albumin/Globulin [Mass ratio] 0.6 {ratio} Low 0.9-2.4 [facility] Serum or plasma alkaline maría sphatase measurementOrdered By: Regino Burleson on 02-12-2025 ALP [Catalytic activity/Vol] 95 U/L 40-129 [facility] Serum or plasma calcium darien urement (mass/volume)Ordered By: Regino Burleson on 02-12-2025 Calcium [Mass/Vol] 9.2 mg/dL 7.6-11.0 [facility] Serum or plasma urea nitroge n measurement (mass/volume)Ordered By: Regino Burleson on 02-12-2025 Urea nitrogen [Mass/Vol] 11 mg/dL 4-19 [facility] Sodium levelOrdered By: Junior Burleson on 02-12-2025 Sodium [Moles/Vol] 126 mmol/L Low 133-145 [facility] Total proteinOrdered By: Refugio Burleson on 02-12-2025 Protein [Mass/Vol] 7.9 g/dL 5.9-8.4 [facility] White blood cell (WBC) count Ordered By: Regino Burleson on 02-12-2025 WBC (Bld) [#/Vol] 9.7 10*3/uL 4.4-11.0 [facility] Positron emission tomography scan reportOrdered By: Theodore Lynch on 02-07-2025 PT Unspecified body region [facility] Imaging Services [address] [place], [place] [id number] PET/CT Tumor Base -Thigh Init MR#: [id number] Acct: [id number] Name: HYUN ELIAS Rep #: [id number] : 1975 M 49 From: Edy Lynch MD PCP: Dr. Cristian Adame MD Status: REG C SARATH Study:PET/CT Tumor Base -Thigh Init Date of E xam: 02/06/25 Exam# [id number] Ordering Dr: Edy Cardenas NP LOOM OPERATOR APPRENTICE-C PROCEDURE: PET/CT TUMOR BASE -THIGH INIT 02/06/2025 [...] PET will be reported separately. Reading Location: [place] [address] CC: RODRIGUEZ Cardenas; Dr. Cristian Adame MD ~ Nuisance Animal Damage Control Agent: Signed [facility] PET/CT Tumor Base -Thigh Ini ton 02-06-2025 PET/CT Tumor Base -Thigh Init [facility] Imaging Services [address] [facility] [place] [address] PET/CT Tumor Base -Thigh Init MR#: [id number] Acct: [id number] Name: HYUN ELIAS Rep #: [id number] : 1975 M 49 From: Theodore Julian PCP: Dr. Cristian Adame MD Status: REG CLI Study: PET/CT Tumor Base -Thigh Init Date of Exam: Exam# [id number] Ordering Dr: Tayler Cardenas LOOM OPERATOR APPRENTICE LOOM OPERATOR APPRENTICE-C PROCEDURE: PET/CT TUMOR BASE -THIGH INIT 02/06/2025 [...] PET will be reported separately. Reading Location: [place] [address] CC: LOOM OPERATOR APPRENTICE-C Tayler Cardenas; Dr. Cristian Adame MD Nuisance Animal Damage Control Agent: Signed Normal [facility] Urinalysis complete panel (U )on 02-01-2025 Bacteria LM.HPF (Urine sed) [#/Area] Negative Normal Negative [facility] Comment on above: Order Comment: Speci men Type: URINE SPECIMENOrdering Facility: [facility] Address: [address] [place] [address] Performed By: #### 2 4356-8 ####[facility] LABCLIA [id number] [place] [address] [place] Bilirubin Ql (U) Negative Normal Negative [facility] Comment on above: Order Comment: Speci men Type: URINE SPECIMENOrdering Facility: [facility] Address: [address] [place] [address] Performed By: #### 2 4356-8 ####[facility] LABCLIA [id number] [place] [address] [place] CALCIUM OXALATE CRYSTALS (UA) Few Abnormal None Seen [facility] Comment on above: Order Comment: Speci men Type: URINE SPECIMENOrdering Facility: [facility] Address: [address] [place] [address] Performed By: #### 2 4356-8 ####[facility] LABCLIA [id number] [place] [address] [place] Clarity (Unsp spec) Clear Normal Clear [facility] Comment on above: Order Comment: Speci men Type: URINE SPECIMENOrdering Facility: [facility] Address: [address] [place] [address] Performed By: #### 2 4356-8 ####[facility] LABCLIA [id number] [place] [address] [place] Color (U) Yellow Normal Yellow [facility] Comment on above: Order Comment: Speci men Type: URINE SPECIMENOrdering Facility: [facility] Address: [address] [place] [address] Performed By: #### 2 4356-8 ####[facility] LABCLIA [id number] [address], [place] [address] [place] Epithelial cells LM.HPF (Urine sed) [#/Area] None Seen Normal [facility] Comment on above: Order Comment: Speci men Type: URINE SPECIMENOrdering Facility: [facility] Address: [address] [place] [address] Performed By: #### 2 4356-8 ####[facility] LABCLIA [id number] [address], [place] [address] [place] Glucose Test strip (U) [Mass/Vol] 3+ Abnormal Negative [facility] Comment on above: Order Comment: Speci men Type: URINE SPECIMENOrdering Facility: [facility] Address: [address] [place] [address] Performed By: #### 2 4356-8 ####[facility] LABCLIA [id number] [facility] [address], [facility] [place] Hemoglobin Ql (U) Negative Normal Negative [facility] Comment on above: Order Comment: Speci men Type: URINE SPECIMENOrdering Facility: [facility] Address: [address] [place] [address] Performed By: #### 2 4356-8 ####[facility] LABCLIA [id number] [facility] [address], [facility] [place] Hyaline casts (Urine sed) [#/Area] 1-3 /LPF Abnormal 0 /LPF [facility] Comment on above: Order Comment: Speci men Type: URINE SPECIMENOrdering Facility: [facility] Address: [address] [place] [address] Performed By: #### 2 4356-8 ####[facility] LABCLIA [id number] [facility] [address] [place] [address] [place] Ketones Ql (U) Negative Normal Negative [facility] Comment on above: Order Comment: Speci men Type: URINE SPECIMENOrdering Facility: [facility] Address: [address] [place] [address] Performed By: #### 2 4356-8 ####[facility] LABCLIA [id number] [address], [place] [address] [place] Leukocyte esterase Test strip Ql (U) Negative Normal Negative [facility] Comment on above: Order Comment: Speci men Type: URINE SPECIMENOrdering Facility: [facility] Address: [address] [place] [address] Performed By: #### 2 4356-8 ####[facility] LABCLIA [id number] [place] [address] [place] Nitrite Ql (U) Negative Normal Negative [facility] Comment on above: Order Comment: Speci men Type: URINE SPECIMENOrdering Facility: [facility] Address: [address] [place] [address] Performed By: #### 2 4356-8 ####[facility] LABCLIA [id number] [place] [address] [place] pH (U) 6.0 [pH] Normal 5.0-8.0 [facility] Comment on above: Order Comment: Speci men Type: URINE SPECIMENOrdering Facility: [facility] Address: [address] [place] [address] Performed By: #### 2 4356-8 ####[facility] LABCLIA [id number] [address], [facility] [place] Protein (U) [Mass/Vol] Negative Normal Negative [facility] Comment on above: Order Comment: Speci men Type: URINE SPECIMENOrdering Facility: [facility] Address: [address] [place] [address] Performed By: #### 2 4356-8 ####[facility] LABCLIA [id number] [place] AV[address]UED[id number] RBC LM.HPF (Urine sed) [#/Area] 0-2 /HPF Normal 0-2 /HPF [facility] Comment on above: Order Comment: Speci men Type: URINE SPECIMENOrdering Facility: [facility] Address: [address] [place] [address] Performed By: #### 2 4356-8 ####[facility] LABIA [id number] [address] [facility] Specific gravity (U) [Rel density] 1.029 Normal 1.005-1.030 [facility] Comment on above: Order Comment: Speci men Type: URINE SPECIMENOrdering Facility: [facility] Address: [address] [place] [address] Performed By: #### 2 4356-8 ####[facility] [id number] [address] Urobilinogen Ql (U) 1.0 EU/dL Normal 0.2-1.0 EU/dL [facility] Comment on above: Order Comment: Speci men Type: URINE SPECIMENOrdering Facility: [facility] Address: [address] [place] [address] Performed By: #### 2 4356-8 ####[facility] [id number] [address] WBC LM.HPF (Urine sed) [#/Area] 0-5 /HPF Normal 0-5 /HPF [facility] Comment on above: Order Comment: Speci men Type: URINE SPECIMENOrdering Facility: [facility] Address: [address] [place] [address] Performed By: #### 2 4356-8 ####[facility] LABIA [id number] [place] [address] [place] CBC W Auto Differential pane l (Bld)on 01-30-2025 Basophils (Bld) [#/Vol] 0.10 10*3/uL Normal <0.11 [facility] Comment on above: Order Comment: Speci men Type: BLOOD SPECIMENOrdering Facility: [facility] Address: [address] [place] [address] Performed By: #### 5 7021-8 ####[facility] LABCLIA [id number] [address] [place] [address] [place] Basophils/100 WBC (Bld) 1.0 % Normal [facility] Comment on above: Order Comment: Speci men Type: BLOOD SPECIMENOrdering Facility: [facility] Address: [address] [place] [address] Performed By: #### 5 7021-8 ####[facility] LABCLIA [id number] [address], [place] [address] [place] Differential cell count method Nom (Bld) Auto Normal [facility] Comment on above: Order Comment: Speci men Type: BLOOD SPECIMENOrdering Facility: [facility] Address: [address] [place] [address] Performed By: #### 5 7021-8 ####[facility] LABCLIA [id number] [place] [address] [place] Eosinophils (Bld) [#/Vol] 0.14 10*3/uL Normal <0.46 [facility] Comment on above: Order Comment: Speci men Type: BLOOD SPECIMENOrdering Facility: [facility] Address: [address] [place] [address] Performed By: #### 5 7021-8 ####[facility] LABCLIA [id number] [place] [address] [place] Eosinophils/100 WBC (Bld) 1.3 % Normal [facility] Comment on above: Order Comment: Speci men Type: BLOOD SPECIMENOrdering Facility: [facility] Address: [address] [place] [address] Performed By: #### 5 7021-8 ####[facility] LABCLIA [id number] [place] [address] [place] Erythrocyte distribution width (RBC) [Ratio] 15.0 % Normal 11.5-15.0 [facility] Comment on above: Order Comment: Speci men Type: BLOOD SPECIMENOrdering Facility: [facility] Address: [address] [place] [address] Performed By: #### 5 7021-8 ####[facility] LABIA [id number] [place] [address] [place] Hematocrit (Bld) [Volume fraction] 33.4 % Low 39.0-51.0 [facility] Comment on above: Order Comment: Speci men Type: BLOOD SPECIMENOrdering Facility: [facility] Address: [address] [place] [address] Performed By: #### 5 7021-8 ####[facility] LABIA [id number] [place] [address] [place] Hemoglobin (Bld) [Mass/Vol] 10.6 g/dL Low 13.0-17.0 [facility] Comment on above: Order Comment: Speci men Type: BLOOD SPECIMENOrdering Facility: [facility] Address: [address] [place] [address] Performed By: #### 5 7021-8 ####[facility] LABIA [id number] [place] [address] [place] Immature granulocytes (Bld) [#/Vol] 0.07 10*3/uL Normal <0.10 [facility] Comment on above: Order Comment: Speci men Type: BLOOD SPECIMENOrdering Facility: [facility] Address: [address] [place] [address] Performed By: #### 5 7021-8 ####[facility] LABIA [id number] [place] [address] [place] Immature granulocytes/100 WBC (Bld) 0.7 % Normal [facility] Comment on above: Order Comment: Speci men Type: BLOOD SPECIMENOrdering Facility: [facility] Address: [address] [place] [address] Performed By: #### 5 7021-8 ####[facility] LABCLIA [id number] [place] [address] [place] Lymphocytes (Bld) [#/Vol] 1.23 10*3/uL Normal 1.00-4.00 [facility] Comment on above: Order Comment: Speci men Type: BLOOD SPECIMENOrdering Facility: [facility] Address: [address] [place] [address] Performed By: #### 5 7021-8 ####[facility] LABCLIA [id number] [place] [address] [place] Lymphocytes/100 WBC (Bld) 11.8 % Normal [facility] Comment on above: Order Comment: Speci men Type: BLOOD SPECIMENOrdering Facility: [facility] Address: [address] [place] [address] Performed By: #### 5 7021-8 ####[facility] LABCLIA [id number] [place] [address] [place] MCH (RBC) [Entitic mass] 26.2 pg Normal 26.0-34.0 [facility] Comment on above: Order Comment: Speci men Type: BLOOD SPECIMENOrdering Facility: [facility] Address: [address] [place] [address] Performed By: #### 5 7021-8 ####[facility] LABCLIA [id number] [place] [address] [place] MCHC (RBC) [Mass/Vol] 31.7 g/dL Normal 30.5-36.0 [facility] Comment on above: Order Comment: Speci men Type: BLOOD SPECIMENOrdering Facility: [facility] Address: [address] [place] [address] Performed By: #### 5 7021-8 ####[facility] LABCLIA [id number] [place] [address] [place] MCV (RBC) [Entitic vol] 82.5 fL Normal 80.0-100.0 [facility] Comment on above: Order Comment: Speci men Type: BLOOD SPECIMENOrdering Facility: [facility] Address: [address] [place] [address] Performed By: #### 5 7021-8 ####[facility] LABIA [id number] [place] [address] [place] Monocytes (Bld) [#/Vol] 0.69 10*3/uL Normal <0.87 [facility] Comment on above: Order Comment: Speci men Type: BLOOD SPECIMENOrdering Facility: [facility] Address: [address] [place] [address] Performed By: #### 5 7021-8 ####[facility] LABIA [id number] [place] [address] [place] Monocytes/100 WBC (Bld) 6.6 % Normal [facility] Comment on above: Order Comment: Speci men Type: BLOOD SPECIMENOrdering Facility: [facility] Address: [address] [place] [address] Performed By: #### 5 7021-8 ####[facility] LABIA [id number] [place] [address] [place] Neutrophils (Bld) [#/Vol] 8.17 10*3/uL High 1.45-7.50 [facility] Comment on above: Order Comment: Speci men Type: BLOOD SPECIMENOrdering Facility: [facility] Address: [address] [place] [address] Performed By: #### 5 7021-8 ####[facility] LABIA [id number] [place] [address] [place] Neutrophils/100 WBC (Bld) 78.6 % Normal [facility] Comment on above: Order Comment: Speci men Type: BLOOD SPECIMENOrdering Facility: [facility] Address: [address] [place] [address] Performed By: #### 5 7021-8 ####[facility] LABCLIA [id number] [facility] [address] [place] [address] [place] Nucleated RBC (Bld) [#/Vol] 10*3/uL Normal <0.01 [facility] Comment on above: Order Comment: Speci men Type: BLOOD SPECIMENOrdering Facility: [facility] Address: [address] [place] [address] Performed By: #### 5 7021-8 ####[facility] LABCLIA [id number] [facility] [address], [facility] [place] Nucleated RBC/100 WBC (Bld) [Ratio] 0.0 /100 WBC Normal [facility] Comment on above: Order Comment: Speci men Type: BLOOD SPECIMENOrdering Facility: [facility] Address: [address] [place] [address] Performed By: #### 5 7021-8 ####[facility] LABCLIA [id number] [address] [place] [address] [place] Platelet mean volume (Bld) [Entitic vol] 11.2 fL Normal 9.0-12.7 [facility] Comment on above: Order Comment: Speci men Type: BLOOD SPECIMENOrdering Facility: [facility] Address: [address] [place] [address] Performed By: #### 5 7021-8 ####[facility] LABCLIA [id number] [place] [id number] [place] Platelets (Bld) [#/Vol] 457 10*3/uL High 150-400 [facility] Comment on above: Order Comment: Speci men Type: BLOOD SPECIMENOrdering Facility: [facility] Address: [address] [place], [place] [address] Performed By: #### 5 7021-8 ####[facility] LABCLIA [id number] [place] [address] [place] RBC (Bld) [#/Vol] 4.05 10*6/uL Low 4.20-6.00 [facility] Comment on above: Order Comment: Speci men Type: BLOOD SPECIMENOrdering Facility: [facility] Address: [address] [place] [address] Performed By: #### 5 7021-8 ####[facility] LABIA [id number] [place] [address] [place] WBC (Bld) [#/Vol] 10.40 10*3/uL Normal 3.70-11.00 [facility] Comment on above: Order Comment: Speci men Type: BLOOD SPECIMENOrdering Facility: [facility] Address: [address] [place] [address] Performed By: #### 5 7021-8 ####[facility] [id number] [address] [place] CNOVon 01-30-2025 CNOV Office Visit (FAMPWS ) HYUN ELIAS ([id number]) 1975 M Date Time Provider Department 01/30/25 12:40 PM GILDA NOONAN FAMPWS During your visit today, we recorded the following information about you: Temperature Pulse Blood pressure Weight 98.5 degrees 113/minute 100/58 63.5 kg Gilda Noonan APRN.[employer] QUALITY TECHNICIAN 01/30/2025 1:08 PM Signed This is a [...] Yes Frequency: 2.0 times per week Comment: Fellows per patient REVIEW OF SYSTEMS Constitutional: (+) [...] bruits. LUNGS (more content not included)... 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 PET scan ordered for staging. He did [...] Status:Closed by GILDA NOONAN on 01/30/25 Normal [facility] Ferritin [Mass/Vol] 1074.0 ng/mL High 30.3-565.7 [facility] Comment on above: Order Comment: Speci men Type: BLOOD SPECIMENOrdering Facility: [facility] Address: [address] [place] [address] Performed By: #### 5 0190-8, 4, 2284-02 ####[facility] LABIA [id number] [place] [address] [place] Folate SerPl-mCncon 01-31-20 25 Folate [Mass/Vol] 7.9 ng/mL Normal >4.7 [facility] Comment on above: Order Comment: Speci men Type: BLOOD SPECIMENOrdering Facility: [facility] Address: [address] [place] [address] Performed By: #### 5 0190-8, 2275-10, 2284-02 ####[facility] LABIA [id number] [place] [address] [place] Iron and Iron binding capaci ty panelon 01-30-2025 Iron [Mass/Vol] 16 ug/dL Low 41-186 [facility] Comment on above: Order Comment: Speci men Type: BLOOD SPECIMENOrdering Facility: [facility] Address: [address] [place] [address] Performed By: #### 5 0190-8, 2275-10, 2284-02 ####[facility] LABIA [id number] [place] [id number] [place] Iron binding capacity [Mass/Vol] 196 ug/dL Low 232-386 [facility] Comment on above: Order Comment: Speci men Type: BLOOD SPECIMENOrdering Facility: [facility] Address: [address] [place] [address] Performed By: #### 5 0190-8, 2275-4, 8 ####[facility] LABCLIA [id number] [place] [id number] [place] Iron/TIBC [Molar ratio] 8.2 % Low 15.0-57.0 [facility] Comment on above: Order Comment: Speci men Type: BLOOD SPECIMENOrdering Facility: [facility] Address: [address] [place] [address] Performed By: #### 5 0190-8, 2275-4, 2284-02 ####[facility] LABCLIA [id number] [place] [id number] [place] Pulmonary Visit Reporton Pulmonary Visit Report [facility] [place] 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 Referral for fast pass to [place] [facility]. PET scan ordered for staging. He did [...] Additional Comments: This note was generated with 3nder dictation software. It may contain incorrect words, [...] 1-1/2 packs/day. He has a greater than 31-vjez-aabs history. He has shortness of breath on [...] room air Intake Visit Reasons: Test Result Weighter Required: No DME Vendor: N/a Accompanied by: [...] PRN Nausea (more content not included)... Normal [facility] Surgical pathology reportOrd ered By: Noemí Crooks on 01-11-2025 Surgical pathology study [facility] Absolute lymphocyte countOrd ered By: Theodore Lynch on 01-04-2025 Lymphocytes Auto (Unsp spec) [#/Vol] 1.65 10*3/uL 0.83-4.51 [facility] Absolute neutrophil countOrd ered By: Theodore Lynch on 01-04-2025 Neutrophils (Bld) [#/Vol] 10.3 10*3/uL High 2.0-7.7 [facility] Activated partial thrombopla stin time (aPTT) in platelet poor plasma by coagulation aOrdered By: Theodore Lynch on 01-04-2025 aPTT Coag (PPP) [Time] 24.2 s 24.1-36.2 [facility] Automated lymphocyte count a s percentage of total leukocytesOrdered By: Theodore Lynch on 01-04-2025 Lymphocytes/100 WBC Auto (Unsp spec) 12.7 % Low 19-41 [facility] Basophil percentageOrdered B y: Theodore Lynch on 01-04-2025 Basophils/100 WBC (Bld) 0.6 % 0-1 [facility] Biopsy/Inj or Needle Placeme nton 01-04-2025 Biopsy/Inj or Needle Placement [facility] Imaging Services [address] [place] [address] Biopsy/Inj or Needle Placement MR#: [id number] Acct: [id number] Name: HYUN ELIAS Rep #: [id number] : 1975 M 49 From: Theodore Julian PCP: Dr. Cristian Adame MD Status: REG CLI Study: Biopsy/Inj or Needle Placement Date of Exam: 0 01/04/25 Exam# [id number] Ordering Dr: Denny Moffett DO EXAM: CT-guided [...] posterior nodule. Pathology results pending. Reading Location: [place] [address] CC: Dr. Denny Moffett DO; Dr. Cristian Adame MD Nuisance Animal Damage Control Agent: Signed Normal [facility] CBC W/Diff, Automatedon 06-2 -2024 Absolute Lymph 1.65 X10 3/uL Normal 0.83-4.51 [facility] Comment on above: Performed By: #### L 501.5500, L501.7300, L501.7400 #### [facility] [address] [place], [address] Absolute Neut 10.3 X10 3/uL High 2.0-7.7 [facility] Comment on above: Performed By: #### L 501.5500, L501.7300, L501.7400 #### [facility] [address] [place], [address] Basophils/100 WBC (Bld) 0.6 % Normal 0-1 [facility] Comment on above: Performed By: #### L 501.5500, L501.7300, L501.7400 #### [facility] [address] [place], [address] Eosinophils/100 WBC (Bld) 0.8 % Normal 0-5 [facility] Comment on above: Performed By: #### L 501.5500, L501.7300, L501.7400 #### [facility] [address] [place], [address] Erythrocyte distribution width (RBC) [Ratio] 13.5 % Normal 11.6-14.6 [facility] Comment on above: Performed By: #### L 501.5500, L501.7300, L501.7400 #### [facility] [address] [place], [address] Hematocrit (Bld) [Volume fraction] 36.7 % Low 40-54 [facility] Comment on above: Performed By: #### L 501.5500, L501.7300, L501.7400 #### [facility] [address] [place], [address] Hemoglobin (Bld) [Mass/Vol] 12.1 g/dL Low 13.0-16.5 [facility] Comment on above: Performed By: #### L 501.5500, L501.7300, L501.7400 #### [facility] [address] [place], [address] IG% 0.500 Normal 0.0-0.9 [facility] Comment on above: Result Comment: IG% - Immature Granulocytes (promyelocytes, myelocytes and metamyelocytes) > 1% indicates that a LEFT SHIFT is Present. Performed By: #### L 501.5500, L501.7300, L501.7400 #### [facility] [address] [place], [address] Lymphocytes/100 WBC (Bld) 12.7 % Low 19-41 [facility] Comment on above: Performed By: #### L 501.5500, L501.7300, L501.7400 #### [facility] [address] [place], [address] MCH (RBC) [Entitic mass] 27.1 pg Normal 27.0-32.0 [facility] Comment on above: Performed By: #### L 501.5500, L501.7300, L501.7400 #### [facility] [address] [place], [address] MCHC (RBC) [Mass/Vol] 33.0 g/dL Normal 32-36 [facility] Comment on above: Performed By: #### L 501.5500, L501.7300, L501.7400 #### [facility] [address] [place], [address] MCV (RBC) [Entitic vol] 82.3 fL Normal 80-94 [facility] Comment on above: Performed By: #### L 501.5500, L501.7300, L501.7400 #### [facility] [address] [place], [address] Monocytes/100 WBC (Bld) 5.9 % Normal 0-10 [facility] Comment on above: Performed By: #### L 501.5500, L501.7300, L501.7400 #### [facility] [address] [place], [address] Neutrophils/100 WBC (Bld) 79.5 % High 47-70 [facility] Comment on above: Performed By: #### L 501.5500, L501.7300, L501.7400 #### [facility] [address] [place], [address] Nucleated RBC (Bld) [#/Vol] 0 10*3/uL Normal 0-5 [facility] Comment on above: Performed By: #### L 501.5500, L501.7300, L501.7400 #### [facility] [address] [place], [address] Platelet mean volume (Bld) [Entitic vol] 11.2 fL Normal 6.2-12.0 [facility] Comment on above: Performed By: #### L 501.5500, L501.7300, L501.7400 #### [facility] [address] [place], [address] Platelets (Bld) [#/Vol] 457 10*3/uL High 150-450 [facility] Comment on above: Performed By: #### L 501.5500, L501.7300, L501.7400 #### [facility] [address] [place], [address] RBC (Bld) [#/Vol] 4.46 10*6/uL Low 4.6-6.2 [facility] Comment on above: Performed By: #### L 501.5500, L501.7300, L501.7400 #### [facility] [address] [place], [address] RDW SD 40.4 fl Normal 35.1-43.9 [facility] Comment on above: Performed By: #### L 501.5500, L501.7300, L501.7400 #### [facility] [address] [place], [address] WBC (Bld) [#/Vol] 13.0 10*3/uL High 4.4-11.0 [facility] Comment on above: Performed By: #### L 501.5500, L501.7300, L501.7400 #### [facility] [address] [place], [address] [facility] DAVEMIALEXEY,HYUN Low ([id number]) 1975 M Date Time Provider Department 01/04/25 CRISTIAN ADAME [facility] During your visit today, we recorded the following information about you: Petty Stack RN 01/04/2025 4:39 PM Signed Shanon from [facility] calls and is asking if provider can send over script for oxyir tablets instead of capsules? Please review and advise, DOLORES Pemberton Jacqueline A, APRN.[employer]ER[employer] QUALITY TECHNICIAN 01/04/2025 5:24 PM Signed done Allergies As [...] Status:Closed by CECILY SOLER on 01/04/25 Normal [facility] Chest Insp/Exp 2 Viewon - Chest Insp/Exp 2 View [facility] Imaging Services [address] [place] [address] Chest Insp/Exp 2 View MR#: [id number] Acct: [id number] Name: HYUN ELIAS Rep #: [id number] : 1975 M 49 From: Theodore Julian PCP: Dr. Cristian Adame MD Status: REG CLI Study: Chest Insp/Exp 2 View Date of Exam: 01/04/25 Exam# [id number] Ordering Dr: Theodore Lynch MD PROCEDURE: CHEST [...] stable, without evidence of cardiomegaly Reading Location: [place] [address] CC: Dr. Theodore Lynch MD; Dr. Cristian Adame MD Nuisance Animal Damage Control Agent: Signed Normal [facility] Chest Insp/Exp 2 View [facility] Imaging Services [address] [place] [address] Chest Insp/Exp 2 View MR#: [id number] Acct: [id number] Name: HYUN ELIAS Rep #: [id number] : 1975 M 49 From: Collin marroquin MD PCP: Dr. Cristian Adame MD Status: REG CLI Study: Chest Insp/Exp 2 View Date of Exam: 01/04/25 Exam# [id number] Ordering Dr: Theodore Lynch MD PROCEDURE: CHEST INSP/EXP 2 VIEW 01/04/2025 REASON FOR EXAM: POST LUNG BIOPSY TECHNIQUE: CHEST INSP/EXP 2 VIEW COMPARISON: None FINDINGS: No evidence of pneumothorax on the immediate post right lung biopsy radiographs. Multiple bilateral pulmonary nodules. RAD/Chest Insp/Exp 2 View IMPRESSION: No evidence of pneumothorax. Reading Location: [id number] CC: Dr. Theodore Lynch MD; Dr. Cristian Adame MD Nuisance Animal Damage Control Agent: Signed Normal [facility] Eosinophil percentageOrdered By: Theodore Lynch on 01-04-2025 Eosinophils/100 WBC (Bld) 0.8 % 0-5 [facility] Erythrocyte distribution wid th ratioOrdered By: Theodore Lynch on 01-04-2025 Erythrocyte distribution width (RBC) [Ratio] 13.5 % 11.6-14.6 [facility] Erythrocyte distribution wid th standard deviationOrdered By: Theodore Lynch on 01-04-2025 Erythrocyte distribution width (RBC) [Ratio] 40.4 fl 35.1-43.9 [facility] Hematocrit Auto (Bld) [Volum e fraction]Ordered By: Theodore Lynch on 01-04-2025 Hematocrit (Bld) [Volume fraction] 36.7 % Low 40-54 [facility] Hemoglobin measurementOrdere d By: Theodore Lynch on 01-04-2025 Hemoglobin (Bld) [Mass/Vol] 12.1 g/dL Low 13.0-16.5 [facility] Immature granulocytes/100 WB C Auto (Bld)Ordered By: Theodore Lynch on 01-04-2025 Immature granulocytes/100 WBC (Bld) 0.500 % 0.0-0.9 [facility] Comment on above: IG% - Immature Granu locytes (promyelocytes, myelocytes and metamyelocytes) > 1% indicates that a LEFT SHIFT is Present. Immunohistochemical Stainson 01-04-2025 Immunohistochemical Stains Patient Age/Sex Location Account Attending Physician HYUN ELIAS 49/M CT [id number] Dr. Denny Moffett DO Specimen: [id number] Received: 01/04/25 Status: ROSALIA Wood Num: [id number] Spec Type: ASP RAD Subm Dr: DO TERRELL Villegas OPERATION: CT guided Right lung nodule PRE-OP [...] developed and their performance characteristics determined by [facility]. They may not have been cleared [...] in diameter. Entirely submitted in 1 cassette. [place] 01/04/2025 CPT:01641,19072,39607,8 [id number],73348g9 Patient Age/Sex Location Account Attending Physician HYUN ELIAS 49/M [place] [id number] Dr. Denny Moffett, DO ADDENDUM Addendum 1 Entered: 01/11/25-0595 This addendum report is to include the additional stains performed: Mucicarmine: focal intracellular mucin positive. PASD: negative for fungal organisms. AFB: negative for acid fast bacilli. Based on the additional stain(s), the differential diagnosis includes adenosquamous carcinoma. Selected slides/images were reviewed in intradepartmental consultation by Dr Galo Buckner (thoracic pathology division, [facility]). The addendum report was discussed with Dr Iesha Moffett 01/11/25 at 1:51 PM. Addendum Signed (signature on file) Dr. Noemí Crooks MD 01/11/25 1352 Patient Age/Sex Location Account Attending Physician HYUN ELIAS 49/M CT [id number] Dr. Denny Moffett, DO Signed (signature on file) Dr. Noemí Crooks MD 01/11/25 1108 Normal [facility] Comment on above: Performed By: #### L 501.5500, L501.7300, L501.7400 #### [facility] Hospital[facility] SilvaRoseanna [place], [place], [address] International normalized rat io (INR) calculationOrdered By: Theodore Lynch on 01-04-2025 INR Coag (Bld) [Relative time] 1.2 {INR} [facility] MCV (mean corpuscular volume ) determinationOrdered By: Theodore Lynch on 01-04-2025 MCV (RBC) [Entitic vol] 82.3 fL 80-94 [facility] Mean corpuscular hemoglobin (MCH) determinationOrdered By: Theodore Lynch on 01-04-2025 MCH (RBC) [Entitic mass] 27.1 pg 27.0-32.0 [facility] Mean corpuscular hemoglobin concentration (MCHC) determinationOrdered By: Theodore Lynch on 01-04-2025 MCHC (RBC) [Mass/Vol] 33.0 g/dL 32-36 [facility] Mean platelet volume determi nationOrdered By: Theodore Lynch on 01-04-2025 Platelet mean volume (Bld) [Entitic vol] 11.2 fL 6.2-12.0 [facility] Monocyte percentageOrdered B y: Theodore Lynch on 01-04-2025 Monocytes/100 WBC (Bld) 5.9 % 0-10 [facility] Neutrophil percentageOrdered By: Theodore Lynch on 01-04-2025 Neutrophils/100 WBC (Bld) 79.5 % High 47-70 [facility] Nucleated red blood cell per centageOrdered By: Theodore Lynch on 01-04-2025 Nucleated RBC/100 WBC (Bld) [Ratio] 0 % 0-5 [facility] Partial Thromboplast Timeon 01-04-2025 aPTT Coag (Bld) [Time] 24.2 s Normal 24.1-36.2 [facility] Comment on above: Performed By: #### L 501.5500, L501.7300, L501.7400 #### [facility] [address] [place], [place], [address] Platelet countOrdered By: Leandro Lynch on 01-04-2025 Platelets (Bld) [#/Vol] 457 10*3/uL High 150-450 [facility] Prothrombin Time w/INRon INR Coag (PPP) [Relative time] 1.2 {INR} Normal [facility] Comment on above: Performed By: #### L 501.5500, L501.7300, L501.7400 #### [facility] [address] [place], [place], [address] PT Coag (PPP) [Time] 15.3 s High 11.7-14.9 [facility] Comment on above: Performed By: #### L 501.5500, L501.7300, L501.7400 #### [facility] [address] [place], [place], [address] Prothrombin timeOrdered By: Theodore Lynch on 01-04-2025 PT Coag (PPP) [Time] 15.3 s High 11.7-14.9 [facility] RBC Auto (Bld) [#/Vol]Ordere d By: Theodore Lynch on 01-04-2025 RBC (Bld) [#/Vol] 4.46 10*6/uL Low 4.6-6.2 [facility] White blood cell (WBC) count Ordered By: Theodore Lynch on 01-04-2025 WBC (Bld) [#/Vol] 13.0 10*3/uL High 4.4-11.0 [facility] CNPNon 12-27-2024 [facility] ([id number]) 1975 M Date Time Provider Department 12/27/24 CRISTIAN ADAME [facility] During your visit today, we recorded the following information about you: Monserrat Alcantara, RN 12/27/2024 8:17 AM Signed Pt phoned to let pcp know he was suppose to have his biopsy done today at [facility]. [facility] cancelled and re-scheduled for next urs- telling pt the part they need for the CT is stuck in [place]. Pt asking pcp is there any way he can have the biopsy done at the [facility] Specialty building? Please advise pt. [phone] Cristian Adame MD 12/27/2024 8:48 AM Signed Likely would need to be done at one of the hospitals and doubt it could get set up any sooner than next week. He would have to travel plus see a new grassroots organizer. Would actually take much longer Sepideh Pires LPN 12/27/2024 11:32 AM Signed Pt notified pf Dr Adame's message. Pt verbalizes understanding. Pt had just wanted to give PCP a head up. Pt will wait and do procedure at [facility]. Sepideh Pires LPN Allergies As of Date: 12/27/2024 Noted Allergy Reaction AUGMENTIN (AMOXICILLIN-POT CLAVUL*05/08/2011 6 - Diarrhea BACTRIM (SULFAMETHOXAZOLE) 06/27/2012 7 - Swelling Date Reviewed: 12/15/2024 Reviewed by: Raiza Rodrigez LPN - Fully Assessed Reason for Visit: Patient Question [8511] Prescriptions as of 12/27/2024 - oxyCODONE ir [...] Status:Closed by SEPIDEH PIRES on 12/27/24 [facility] HYUN ELI[facility] ([id number]) 1975 M Date Time Provider Department 12/21/24 CRISTIAN ADAME [facility] During your visit today, we recorded the following information about you: Petty Stack RN 12/21/2024 12:52 PM Signed Patient's significant other calls and states that patient is supposed to have have biopsy done 12/27. Patient was told to call PCP to see if something can be ordered to relax patient before procedure? Pharmacy is [facility] [place]. Please review and advise, DOLORES Pemberton William [...] Fully Assessed Reason for Visit: Patient Question [9055] Primary Visit Diagnosis:Anxiety [F41.9] Order(s):hydrOXYzine pamoate (VISTARIL) [...] Encounter Status:Closed by NUPUR [facility]) HYUN ELIAS ([id number]) 1975 M Date Time Provider Department 12/19/24 CRISTIAN ADAME [facility] During your visit today, we recorded [...] and folate Recheck labs in one month. uNpur Green MA 12/19/2024 11:39 AM Signed [employer] message sent Allergies As of Date: 12/19/2024 Noted Allergy Reaction AUGMENTIN (AMOXICILLIN-POT CLAVUL*05/08/2011 6 - Diarrhea BACTRIM (SULFAMETHOXAZOLE) 06/27/2012 7 - Swelling Date Reviewed: 12/15/2024 Reviewed by: Raiza Rodrigez LPN - Fully Assessed Reason for Visit: Results [95] Primary Visit Diagnosis:Anemia, unspecified type [D64.9] Other Visit Diagnosis:Folic acid deficiency [E53.8] Order(s):IMMUNOCHEMICAL FECAL OCCULT BLOOD TEST [SQIFOBT] Order #: [id number]. #:[id number] FOLATE, SERUM [SQSERFOL] Order #: [id number] FUTURE ferrous sulfate 325 mg (65 mg iron) tabletTake 1 tablet by mouth two times a day with meals.Disp: 180 tabletRfl: 3 FERRITIN [SQFERR] Order #: [id number] FUTURE IRON AND TIBC [SQIRON] Order #: [id number] FUTURE COMPLETE BLOOD COUNT AND DIFFERENTIAL [SQCBCDIF] Order #: [id number] FUTURE folic acid 1 mg tabletTake 1 [...] Status:Closed by NUPUR GREEN on 12/19/24 Normal [facility] Bacteria Ur Culton 5 Bacteria identified Cx Nom (U) ORGANISM ID: 1 <10,000 CFU/ml Normal urogenital tracey Normal [facility] Comment on above: Performed By: #### 6 30-4 ####[facility] LABCLIA [id number] [place] [address] [place] Basic metabolic 2000 panelon 12-18-2024 Anion gap [Moles/Vol] 11 mmol/L 8 - 15 mmol/L [facility] Calcium [Mass/Vol] 9.2 mg/dL 8.5 - 10. 2 mg/dL [facility] Chloride [Moles/Vol] 97 mmol/L Low 98 - 10 7 mmol/L [facility] CO2 [Moles/Vol] 23 mmol/L 22 - 30 mmol/L [facility] Creatinine [Mass/Vol] 0.86 mg/dL 0.73 - 1.22 mg/dL [facility] GFR/1.73 sq M.predicted among non-blacks MDRD (S/P/Bld) [Vol rate/Area] 105 mL/min/{1.73_m2} - PINF [facility] Comment on above: Estimated Glomerular Filtration Rate [...] 204 mg/dL High 74 - 99 mg/dL [facility] Comment on above: The [place] Diabete s Association (ADA) provides guidance for [...] Standards of Medical Care in Diabetes 2016, [place] Diabetes Association. Diabetes Care. 2016.39(Suppl 1). Potassium [Moles/Vol] 4.3 mmol/L 3.7 - 5.1 mmol/L [facility] Sodium [Moles/Vol] 131 mmol/L Low 136 - 144 mmol/L [facility] Urea nitrogen [Mass/Vol] 11 mg/dL 9 - 24 mg/dL [facility] Anion gap [Moles/Vol] 11 mmol/L Normal 8-15 [facility] Comment on above: Order Comment: Speci men Type: BLOOD SPECIMENOrdering Facility: [facility] Address: [address] [place] [address] Performed By: #### 2 4321-2, 97439-9, 2275-10 ####[facility]CL[facility] [id number] [place] [address] [place] Calcium [Mass/Vol] 9.2 mg/dL Normal 8.5-10.2 [facility] Comment on above: Order Comment: Speci men Type: BLOOD SPECIMENOrdering Facility: [facility] Address: [address] [place] [id number] Performed By: #### 2 4321-2, 56736-5, 2275-10 ####[facility] LABCLIA [id number] [place] [address] [place] Chloride [Moles/Vol] 97 mmol/L Low 98-107 [facility] Comment on above: Order Comment: Speci men Type: BLOOD SPECIMENOrdering Facility: [facility] Address: [address] [place], [place] [address] Performed By: #### 2 4321-2, 33739-7, 4 ####[facility] [id number] [place] [id number] [place] CO2 [Moles/Vol] 23 mmol/L Normal 22-30 [facility] Comment on above: Order Comment: Speci men Type: BLOOD SPECIMENOrdering Facility: [facility] Address: [address] [place] [address] Performed By: #### 2 4321-2, 72531-8, 2275-10 ####[facility] [id number] [place] [address] [place] Creatinine [Mass/Vol] 0.86 mg/dL Normal 0.73-1.22 [facility] Comment on above: Order Comment: Speci men Type: BLOOD SPECIMENOrdering Facility: [facility] Address: [address] [place] [address] Performed By: #### 2 4321-2, 48907-0, 2275-10 ####[facility] [id number] [place] [address] [place] Creatinine and Glomerular filtration rate.predicted panel (S/P/Bld) 105 mL/min/1.73m??? Normal >=60 [facility] Comment on above: Order Comment: Speci men Type: BLOOD SPECIMENOrdering Facility: [facility] Address: [address] [place] [address] Result Comment: Anika mated Glomerular Filtration Rate [...] actual GFR. Performed By: #### 2 4321-2, 83616-0, 2275-10 ####[facility]IA [id number] [address] [address] [place] Glucose [Mass/Vol] 204 mg/dL High 74-99 [facility] Comment on above: Order Comment: Speci men Type: BLOOD SPECIMENOrdering Facility: [facility] Address: [address] [place] [address] Result Comment: The [place] Diabetes Association (ADA) provides guidance for cutoff [...] Standards of Medical Care in Diabetes 2016, [place] Diabetes Association. Diabetes Care. 2016.39(Suppl 1). Performed By: #### 2 4321-2, 91231-2, 2275-10 ####[facility] LABIA [id number] [place] [id number] [place] Potassium [Moles/Vol] 4.3 mmol/L Normal 3.7-5.1 [facility] Comment on above: Order Comment: Speci men Type: BLOOD SPECIMENOrdering Facility: [facility] Address: [address] [place] [address] Performed By: #### 2 4321-2, 98775-8, 2275-10 ####[facility] LABIA [id number] [place] [id number] [place] Sodium [Moles/Vol] 131 mmol/L Low 136-144 [facility] Comment on above: Order Comment: Speci men Type: BLOOD SPECIMENOrdering Facility: [facility] Address: [address] [place] [address] Performed By: #### 2 4321-2, 70414-8, 2276-4 ####[facility]CLIA [id number] [place] [address] [place] Urea nitrogen [Mass/Vol] 11 mg/dL Normal 9-24 [facility] Comment on above: Order Comment: Speci men Type: BLOOD SPECIMENOrdering Facility: [facility] Address: [address] [place] [address] Performed By: #### 2 4321-2, 47573-0, 2276-4 ####[facility] LABCLIA [id number] [place] [address] [place] CBC W Auto Differential pane l (Bld)on 12-18-2024 Basophils (Bld) [#/Vol] 0.1 10*3/uL [facility] Basophils/100 WBC (Bld) 1 % [facility] Differential cell count method Nom (Bld) Auto [facility] Eosinophils (Bld) [#/Vol] 0.2 10*3/uL [facility] Eosinophils/100 WBC (Bld) 2 % [facility] Erythrocyte distribution width (RBC) [Ratio] 13.2 % 11.5 - 15.0 % [facility] Hematocrit (Bld) [Volume fraction] 35.8 % Low 39.0 - 51.0 % [facility] Hemoglobin (Bld) [Mass/Vol] 11.6 g/dL Low 13.0 - 17.0 g/dL [facility] Immature granulocytes (Bld) [#/Vol] 0.05 10*3/uL [facility] Immature granulocytes/100 WBC (Bld) 0.5 % [facility] Interpretation and review of laboratory results Abnormal [facility] Lymphocytes (Bld) [#/Vol] 1.99 10*3/uL [facility] Lymphocytes/100 WBC (Bld) 20 % [facility] MCH (RBC) [Entitic mass] 27.9 pg 26.0 - 34.0 pg [facility] MCHC (RBC) [Mass/Vol] 32.4 g/dL 30.5 - 36.0 g/dL [facility] MCV (RBC) [Entitic vol] 86.1 fL 80.0 - 100.0 fL [facility] Monocytes (Bld) [#/Vol] 0.74 10*3/uL [facility] Monocytes/100 WBC (Bld) 7.5 % [facility] Neutrophils (Bld) [#/Vol] 6.85 10*3/uL [facility] Neutrophils/100 WBC (Bld) 69 % [facility] Nucleated RBC (Bld) [#/Vol] NINF [facility] Nucleated RBC/100 WBC (Bld) [Ratio] 0 % /100 WBC [facility] Platelet mean volume (Bld) [Entitic vol] 11.3 fL 9.0 - 12.7 fL [facility] Platelets (Bld) [#/Vol] 345 10*3/uL [facility] RBC (Bld) [#/Vol] 4.16 10*6/uL Low 4.20 - 6.0 0 m/uL [facility] WBC (Bld) [#/Vol] 9.93 10*3/uL [facility] Basophils (Bld) [#/Vol] 0.10 10*3/uL Normal <0.11 [facility] Comment on above: Order Comment: Speci men Type: BLOOD SPECIMENOrdering Facility: [facility] Address: [address] [place] [address] Performed By: #### 5 7021-8, 4537-7 ####[facility] LABCLIA [id number] [place] [address] [place] Basophils/100 WBC (Bld) 1.0 % Normal [facility] Comment on above: Order Comment: Speci men Type: BLOOD SPECIMENOrdering Facility: [facility] Address: [address] [place] [address] Performed By: #### 5 7021-8, 4537-7 ####[facility] LABIA [id number] [place] [address] [place] Differential cell count method Nom (Bld) Auto Normal [facility] Comment on above: Order Comment: Speci men Type: BLOOD SPECIMENOrdering Facility: [facility] Address: [address] [place] [address] Performed By: #### 5 7021-8, 4536-7 ####[facility] LABCLIA [id number] [place] [address] [place] Eosinophils (Bld) [#/Vol] 0.20 10*3/uL Normal <0.46 [facility] Comment on above: Order Comment: Speci men Type: BLOOD SPECIMENOrdering Facility: [facility] Address: [address] [place] [address] Performed By: #### 5 7021-8, 4536-7 ####[facility] LABCLIA [id number] [place] [address] [place] Eosinophils/100 WBC (Bld) 2.0 % Normal [facility] Comment on above: Order Comment: Speci men Type: BLOOD SPECIMENOrdering Facility: [facility] Address: [address] [place] [address] Performed By: #### 5 7021-8, 7 ####[facility] LABCLIA [id number] [place] [address] [place] Erythrocyte distribution width (RBC) [Ratio] 13.2 % Normal 11.5-15.0 [facility] Comment on above: Order Comment: Speci men Type: BLOOD SPECIMENOrdering Facility: [facility] Address: [address] [place] [address] Performed By: #### 5 7021-8, 7 ####[facility] LABCLIA [id number] [place] [address] [place] Hematocrit (Bld) [Volume fraction] 35.8 % Low 39.0-51.0 [facility] Comment on above: Order Comment: Speci men Type: BLOOD SPECIMENOrdering Facility: [facility] Address: [address] [place] [address] Performed By: #### 5 7021-8, 4536-7 ####[facility] LABCLIA [id number] [place] [address] [place] Hemoglobin (Bld) [Mass/Vol] 11.6 g/dL Low 13.0-17.0 [facility] Comment on above: Order Comment: Speci men Type: BLOOD SPECIMENOrdering Facility: [facility] Address: [address] [place] [address] Performed By: #### 5 7021-8, 4537-7 ####[facility] LABCLIA [id number] [place] [address] [place] Immature granulocytes (Bld) [#/Vol] 0.05 10*3/uL Normal <0.10 [facility] Comment on above: Order Comment: Speci men Type: BLOOD SPECIMENOrdering Facility: [facility] Address: [address] [place] [address] Performed By: #### 5 7021-8, 4537-7 ####[facility] LABIA [id number] [place] [address] [place] Immature granulocytes/100 WBC (Bld) 0.5 % Normal [facility] Comment on above: Order Comment: Speci men Type: BLOOD SPECIMENOrdering Facility: [facility] Address: [address] [place] [address] Performed By: #### 5 7021-8, 4537-7 ####[facility] LABIA [id number] [place] [address] [place] Lymphocytes (Bld) [#/Vol] 1.99 10*3/uL Normal 1.00-4.00 [facility] Comment on above: Order Comment: Speci men Type: BLOOD SPECIMENOrdering Facility: [facility] Address: [address] [place] [address] Performed By: #### 5 7021-8, 4537-7 ####[facility] LABCLIA [id number] [address] [id number] [address] [place] Lymphocytes/100 WBC (Bld) 20.0 % Normal [facility] Comment on above: Order Comment: Speci men Type: BLOOD SPECIMENOrdering Facility: [facility] Address: [address] [place] [address] Performed By: #### 5 7021-8, 4536-7 ####[facility] LABCLIA [id number] [place] [address] [place] MCH (RBC) [Entitic mass] 27.9 pg Normal 26.0-34.0 [facility] Comment on above: Order Comment: Speci men Type: BLOOD SPECIMENOrdering Facility: [facility] Address: [address] [place] [address] Performed By: #### 5 7021-8, 7 ####[facility] LABCLIA [id number] [place] [address] [place] MCHC (RBC) [Mass/Vol] 32.4 g/dL Normal 30.5-36.0 [facility] Comment on above: Order Comment: Speci men Type: BLOOD SPECIMENOrdering Facility: [facility] Address: [address] [place] [address] Performed By: #### 5 7021-8, 7 ####[facility] LABCLIA [id number] [place] [address] [place] MCV (RBC) [Entitic vol] 86.1 fL Normal 80.0-100.0 [facility] Comment on above: Order Comment: Speci men Type: BLOOD SPECIMENOrdering Facility: [facility] Address: [address] [place] [address] Performed By: #### 5 7021-8, 7 ####[facility] LABCLIA [id number] [place] [address] [place] Monocytes (Bld) [#/Vol] 0.74 10*3/uL Normal <0.87 [facility] Comment on above: Order Comment: Speci men Type: BLOOD SPECIMENOrdering Facility: [facility] Address: [address] [place] [address] Performed By: #### 5 7021-8, 4536-7 ####[facility] LABCLIA [id number] [address] [address] [place] Monocytes/100 WBC (Bld) 7.5 % Normal [facility] Comment on above: Order Comment: Speci men Type: BLOOD SPECIMENOrdering Facility: [facility] Address: [address] [place] [address] Performed By: #### 5 7021-8, 4536-7 ####[facility] LABCLIA [id number] [place] [address] [place] Neutrophils (Bld) [#/Vol] 6.85 10*3/uL Normal 1.45-7.50 [facility] Comment on above: Order Comment: Speci men Type: BLOOD SPECIMENOrdering Facility: [facility] Address: [address] [place] [address] Performed By: #### 5 7021-8, 7 ####[facility] LABCLIA [id number] [place] [address] [place] Neutrophils/100 WBC (Bld) 69.0 % Normal [facility] Comment on above: Order Comment: Speci men Type: BLOOD SPECIMENOrdering Facility: [facility] Address: [address] [place] [address] Performed By: #### 5 7021-8, 4536-7 ####[facility] LABCLIA [id number] [place] [address] [place] Nucleated RBC (Bld) [#/Vol] 10*3/uL Normal <0.01 [facility] Comment on above: Order Comment: Speci men Type: BLOOD SPECIMENOrdering Facility: [facility] Address: [address] [place] [address] Performed By: #### 5 7021-8, 4536-7 ####[facility] LABIA [id number] [place] [id number] [place] Nucleated RBC/100 WBC (Bld) [Ratio] 0.0 /100 WBC Normal [facility] Comment on above: Order Comment: Speci men Type: BLOOD SPECIMENOrdering Facility: [facility] Address: [address] [place] [address] Performed By: #### 5 7021-8, 7 ####[facility] LABIA [id number] [place] [address] [place] Platelet mean volume (Bld) [Entitic vol] 11.3 fL Normal 9.0-12.7 [facility] Comment on above: Order Comment: Speci men Type: BLOOD SPECIMENOrdering Facility: [facility] Address: [address] [place] [address] Performed By: #### 5 7021-8, 7 ####[facility] LABIA [id number] [place] [address] [place] Platelets (Bld) [#/Vol] 345 10*3/uL Normal 150-400 [facility] Comment on above: Order Comment: Speci men Type: BLOOD SPECIMENOrdering Facility: [facility] Address: [address] [place] [address] Performed By: #### 5 7021-8, 7 ####[facility] LABIA [id number] [place] [id number] [place] RBC (Bld) [#/Vol] 4.16 10*6/uL Low 4.20-6.00 [facility] Comment on above: Order Comment: Speci men Type: BLOOD SPECIMENOrdering Facility: [facility] Address: [address] [place] [address] Performed By: #### 5 7021-8, 7 ####[facility] LABCLIA [id number] [place] [address] [place] WBC (Bld) [#/Vol] 9.93 10*3/uL Normal 3.70-11.00 [facility] Comment on above: Order Comment: Speci men Type: BLOOD SPECIMENOrdering Facility: [facility] Address: [address] [place] [address] Performed By: #### 5 7021-8, 4537-7 ####[facility] LABCLIA [id number] [place] [address] [place] [facility] HYUN ELIAS ([id number]) 1975 M Date Time Provider Department 12/18/24 [facility] During [facility] visit today, we recorded the [...] [D64.9] Order(s):BASIC METABOLIC PANEL [SQBMP] Order #: [id number] FUTURE COMPLETE BLOOD COUNT AND DIFFERENTIAL [SQCBCDIF] Order #: [id number] FUTURE IRON AND TIBC [SQIRON] Order #: [id number] FUTURE VITAMIN B12 [SQB12] Order #: [id number] FUTURE FOLATE, SERUM [SQSERFOL] Order #: [id number] FUTURE FERRITIN [SQFERR] Order #: [id number] FUTURE SEDIMENTATION RATE, WESTERGREN [SQWSR] Order #: [id number] FUTURE Prescriptions as of 12/18/2024 - oxyCODONE [...] Status:Closed by RAIZA RODRIGEZ on 12/18/24 Normal [facility] ESR Westergren method (Bld) [Velocity]on 12-18-2024 ESR (Bld) [Velocity] 97 mm/h High [facility] Interpretation and review of laboratory results Abnormal [facility] ESR (Bld) [Velocity] 97 mm/h High 0-15 [facility] Comment on above: Order Comment: Speci men Type: BLOOD SPECIMENOrdering Facility: [facility] Address: [address] [place] [address] Performed By: #### 5 7021-8, 4537-7 ####[facility] LABCLIA [id number] [place] [address] [place] FERRITINon 12-18-2024 Ferritin [Mass/Vol] 419 ng/mL 30.3 - 565.7 ng/mL [facility] Ferritin SerPl-mCncon 2024 Ferritin [Mass/Vol] 419.0 ng/mL Normal 30.3-565.7 [facility] Comment on above: Order Comment: Speci men Type: BLOOD SPECIMENOrdering Facility: [facility] Address: [address] [place] [address] Performed By: #### 2 4321-2, 40130-3, 2276-4 ####[facility] LABCLIA [id number] [place] [address] [place] Ferritin [Mass/Vol]on 2024 Interpretation and review of laboratory results Normal [facility] Folate SerPl-mCncon 12-19-19 25 Folate [Mass/Vol] 4.6 ng/mL Low >4.7 [facility] Comment on above: Order Comment: Speci men Type: BLOOD SPECIMENOrdering Facility: [facility] Address: [address] [place] [address] Performed By: #### 2 284-8, 2132-9 ####[facility] LABCLIA [id number] [place] [address] [place] Iron and Iron binding capaci ty panelon 12-18-2024 Iron [Mass/Vol] 16 ug/dL Low 41 - 186 ug/dL [facility] Iron binding capacity [Mass/Vol] 249 ug/dL 232 - 386 ug/dL [facility] Iron/TIBC [Molar ratio] 6.4 % Low 15.0 - 57.0 % [facility] Iron [Mass/Vol] 16 ug/dL Low 41-186 [facility] Comment on above: Order Comment: Speci men Type: BLOOD SPECIMENOrdering Facility: [facility] Address: [address] [place] [address] Performed By: #### 2 4321-2, 30142-2, 2275-4 ####[facility] LABIA [id number] [place] [address] [place] Iron binding capacity [Mass/Vol] 249 ug/dL Normal 232-386 [facility] Comment on above: Order Comment: Speci men Type: BLOOD SPECIMENOrdering Facility: [facility] Address: [address] [place] [address] Performed By: #### 2 4321-2, 78880-8, 4 ####[facility] LABIA [id number] [place] [address] [place] Iron/TIBC [Molar ratio] 6.4 % Low 15.0-57.0 [facility] Comment on above: Order Comment: Speci men Type: BLOOD SPECIMENOrdering Facility: [facility] Address: [address] [place] [address] Performed By: #### 2 4321-2, 21211-4, 2275-10 ####[facility] [id number] [place] [id number] [place] No Panel Informationon 12-18 Interpretation and review of laboratory results Abnormal [facility] Urinalysis complete panel (U )on 12-18-2024 Bacteria LM.HPF (Urine sed) [#/Area] Negative Normal Negative [facility] Comment on above: Order Comment: Speci men Type: URINE SPECIMENOrdering Facility: [facility] Address: [address] [place] [address] Performed By: #### 2 4356-8 ####[facility] LABCLIA [id number] [facility] [address] [place] [address] [place] Bilirubin Ql (U) Negative Normal Negative [facility] Comment on above: Order Comment: Speci men Type: URINE SPECIMENOrdering Facility: [facility] Address: [address] [place] [address] Performed By: #### 2 4356-8 ####[facility] LABCLIA [id number] [address] [place] [address] [place] Clarity (Unsp spec) Clear Normal Clear [facility] Comment on above: Order Comment: Speci men Type: URINE SPECIMENOrdering Facility: [facility] Address: [address] [place] [address] Performed By: #### 2 4356-8 ####[facility] LABIA [id number] [address], [facility] [place] [facility] Color (U) Yellow Normal Yellow [facility] Comment on above: Order Comment: Speci men Type: URINE SPECIMENOrdering Facility: [facility] Address: [address] [place] [address] Performed By: #### 2 4356-8 ####[facility] LABCLIA [id number] [address], [facility] [place] Epithelial cells LM.HPF (Urine sed) [#/Area] None Seen Normal [facility] Comment on above: Order Comment: Speci men Type: URINE SPECIMENOrdering Facility: [facility] Address: [address] [place], [place] [address] Performed By: #### 2 4356-8 ####[facility] LABIA [id number] [address], [facility] [place] Glucose Test strip (U) [Mass/Vol] Trace Abnormal Negative [facility] Comment on above: Order Comment: Speci men Type: URINE SPECIMENOrdering Facility: [facility] Address: [address] [place] [address] Performed By: #### 2 4356-8 ####[facility] LABCLIA [id number] [place] [address] [place] Hemoglobin Ql (U) Negative Normal Negative [facility] Comment on above: Order Comment: Speci men Type: URINE SPECIMENOrdering Facility: [facility] Address: [address] [place] [address] Performed By: #### 2 4356-8 ####[facility] LABCLIA [id number] [place] [address] [place] Hyaline casts (Urine sed) [#/Area] 1-3 /LPF Abnormal 0 /LPF [facility] Comment on above: Order Comment: Speci men Type: URINE SPECIMENOrdering Facility: [facility] Address: [address] [place] [address] Performed By: #### 2 4356-8 ####[facility] LABCLIA [id number] [place] [address] [place] Ketones Ql (U) Negative Normal Negative [facility] Comment on above: Order Comment: Speci men Type: URINE SPECIMENOrdering Facility: [facility] Address: [address] [place] [address] Performed By: #### 2 4356-8 ####[facility] LABCLIA [id number] [address], [place] [address] [place] Leukocyte esterase Test strip Ql (U) Negative Normal Negative [facility] Comment on above: Order Comment: Speci men Type: URINE SPECIMENOrdering Facility: [facility] Address: [address] [place] [address] Performed By: #### 2 4356-8 ####[facility] LABCLIA [id number] [place] [id number] [place] Nitrite Ql (U) Negative Normal Negative [facility] Comment on above: Order Comment: Speci men Type: URINE SPECIMENOrdering Facility: [facility] Address: [address] [place] [address] Performed By: #### 2 4356-8 ####[facility] LABCLIA [id number] [place] [address] [place] pH (U) 6.0 [pH] Normal <8.5 [facility] Comment on above: Order Comment: Speci men Type: URINE SPECIMENOrdering Facility: [facility] Address: [address] [place] [address] Performed By: #### 2 4356-8 ####[facility] LABCLIA [id number] [place] [address] [place] Protein (U) [Mass/Vol] Negative Normal Negative Cl [facility] Comment on above: Order Comment: Speci men Type: URINE SPECIMENOrdering Facility: [facility] Address: [address] [place] [address] Performed By: #### 2 4356-8 ####[facility] LABCLIA [id number] [place] [address] [place] RBC LM.HPF (Urine sed) [#/Area] 0-2 /HPF Normal 0-2 /HPF [facility] Comment on above: Order Comment: Speci men Type: URINE SPECIMENOrdering Facility: [facility] Address: [address] [place] [address] Performed By: #### 2 4356-8 ####[facility] LABCLIA [id number] [place] [id number] [place] Specific gravity (U) [Rel density] 1.017 Normal 1.005-1.030 [facility] Comment on above: Order Comment: Speci men Type: URINE SPECIMENOrdering Facility: [facility] Address: [address] [place] [address] Performed By: #### 2 4356-8 ####[facility] LABCLIA [id number] [place] [address] [place] Urobilinogen Ql (U) 0.2 EU/dL Normal 0.2-1.0 EU/dL [facility] Comment on above: Order Comment: Speci men Type: URINE SPECIMENOrdering Facility: [facility] Address: [address] [place] [address] Performed By: #### 2 4356-8 ####[facility] LABIA [id number] [place] [address] [place] WBC LM.HPF (Urine sed) [#/Area] 0-5 /HPF Normal 0-5 /HPF [facility] Comment on above: Order Comment: Speci men Type: URINE SPECIMENOrdering Facility: [facility] Address: [address] [place] [address] Performed By: #### 2 4356-8 ####[facility] [id number] [place] [address] [place] Vit B12 [facility] Cobalamin (Vitamin B12) [Mass/Vol] 346 pg/mL Normal 232-1245 [facility] Comment on above: Order Comment: Speci men Type: BLOOD SPECIMENOrdering Facility: [facility] Address: [address] [place] [address] Performed By: #### 2 284-8, 2132-9 ####[facility] LABIA [id number] [place] [address] [place] CBC W Auto Differential pane l (Bld)on 12-15-2024 Basophils (Bld) [#/Vol] 0.10 10*3/uL Normal <0.11 [facility] Comment on above: Order Comment: Speci men Type: BLOOD SPECIMENOrdering Facility: [facility] Address: [address] [place] [address] Performed By: #### 5 7021-8 ####[facility] LABCLIA [id number] [place] [address] [place] Basophils/100 WBC (Bld) 0.9 % Normal [facility] Comment on above: Order Comment: Speci men Type: BLOOD SPECIMENOrdering Facility: [facility] Address: [address] [place] [address] Performed By: #### 5 7021-8 ####[facility] LABCLIA [id number] [place] [address] [place] Differential cell count method Nom (Bld) Auto Normal [facility] Comment on above: Order Comment: Speci men Type: BLOOD SPECIMENOrdering Facility: [facility] Address: [address] [place] [address] Performed By: #### 5 7021-8 ####[facility] LABCLIA [id number] [place] [address] [place] Eosinophils (Bld) [#/Vol] 0.11 10*3/uL Normal <0.46 [facility] Comment on above: Order Comment: Speci men Type: BLOOD SPECIMENOrdering Facility: [facility] Address: [address] [place] [address] Performed By: #### 5 7021-8 ####[facility] LABCLIA [id number] [address] [place] Eosinophils/100 WBC (Bld) 1.0 % Normal [facility] Comment on above: Order Comment: Speci men Type: BLOOD SPECIMENOrdering Facility: [facility] Address: [address] [place] [address] Performed By: #### 5 7021-8 ####[facility] LABCLIA [id number] [place] [address] [place] Erythrocyte distribution width (RBC) [Ratio] 13.0 % Normal 11.5-15.0 [facility] Comment on above: Order Comment: Speci men Type: BLOOD SPECIMENOrdering Facility: [facility] Address: [address] [place] [address] Performed By: #### 5 7021-8 ####[facility] LABCLIA [id number] [place] [address] [place] Hematocrit (Bld) [Volume fraction] 37.9 % Low 39.0-51.0 [facility] Comment on above: Order Comment: Speci men Type: BLOOD SPECIMENOrdering Facility: [facility] Address: [address] [place] [address] Performed By: #### 5 7021-8 ####[facility] LABIA [id number] [place] [address] [place] Hemoglobin (Bld) [Mass/Vol] 12.4 g/dL Low 13.0-17.0 [facility] Comment on above: Order Comment: Speci men Type: BLOOD SPECIMENOrdering Facility: [facility] Address: [address] [place] [address] Performed By: #### 5 7021-8 ####[facility] LABIA [id number] [place] [address] [place] Immature granulocytes (Bld) [#/Vol] 0.08 10*3/uL Normal <0.10 [facility] Comment on above: Order Comment: Speci men Type: BLOOD SPECIMENOrdering Facility: [facility] Address: [address] [place] [address] Performed By: #### 5 7021-8 ####[facility] LABCLIA [id number] [place] [address] [place] Immature granulocytes/100 WBC (Bld) 0.7 % Normal [facility] Comment on above: Order Comment: Speci men Type: BLOOD SPECIMENOrdering Facility: [facility] Address: [address] [place] [address] Performed By: #### 5 7021-8 ####[facility] LABCLIA [id number] [place] [address] [place] Lymphocytes (Bld) [#/Vol] 1.68 10*3/uL Normal 1.00-4.00 [facility] Comment on above: Order Comment: Speci men Type: BLOOD SPECIMENOrdering Facility: [facility] Address: [address] [place] [address] Performed By: #### 5 7021-8 ####[facility] LABCLIA [id number] [address] [place] Lymphocytes/100 WBC (Bld) 14.6 % Normal [facility] Comment on above: Order Comment: Speci men Type: BLOOD SPECIMENOrdering Facility: [facility] Address: [address] [place] [address] Performed By: #### 5 7021-8 ####[facility] LABIA [id number] [place] [address] [place] MCH (RBC) [Entitic mass] 28.0 pg Normal 26.0-34.0 [facility] Comment on above: Order Comment: Speci men Type: BLOOD SPECIMENOrdering Facility: [facility] Address: [address] [place] [address] Performed By: #### 5 7021-8 ####[facility] LABIA [id number] [place] [address] [place] MCHC (RBC) [Mass/Vol] 32.7 g/dL Normal 30.5-36.0 [facility] Comment on above: Order Comment: Speci men Type: BLOOD SPECIMENOrdering Facility: [facility] Address: [address] [place] [address] Performed By: #### 5 7021-8 ####[facility] LABCLIA [id number] [place] [id number] [place] MCV (RBC) [Entitic vol] 85.6 fL Normal 80.0-100.0 [facility] Comment on above: Order Comment: Speci men Type: BLOOD SPECIMENOrdering Facility: [facility] Address: [address] [place] [address] Performed By: #### 5 7021-8 ####[facility] LABCLIA [id number] [place] [id number] [place] Monocytes (Bld) [#/Vol] 0.72 10*3/uL Normal <0.87 [facility] Comment on above: Order Comment: Speci men Type: BLOOD SPECIMENOrdering Facility: [facility] Address: [address] [place] [address] Performed By: #### 5 7021-8 ####[facility] LABCLIA [id number] [place] [address] [place] Monocytes/100 WBC (Bld) 6.3 % Normal [facility] Comment on above: Order Comment: Speci men Type: BLOOD SPECIMENOrdering Facility: [facility] Address: [address] [place] [address] Performed By: #### 5 7021-8 ####[facility] LABCLIA [id number] [place] [address] [place] Neutrophils (Bld) [#/Vol] 8.80 10*3/uL High 1.45-7.50 [facility] Comment on above: Order Comment: Speci men Type: BLOOD SPECIMENOrdering Facility: [facility] Address: [address] [place] [address] Performed By: #### 5 7021-8 ####[facility] LABCLIA [id number] [place] [id number] [place] Neutrophils/100 WBC (Bld) 76.5 % Normal [facility] Comment on above: Order Comment: Speci men Type: BLOOD SPECIMENOrdering Facility: [facility] Address: [address] [place] [address] Performed By: #### 5 7021-8 ####[facility] LABCLIA [id number] [place] [address] [place] Nucleated RBC (Bld) [#/Vol] 10*3/uL Normal <0.01 [facility] Comment on above: Order Comment: Speci men Type: BLOOD SPECIMENOrdering Facility: [facility] Address: [address] [place] [address] Performed By: #### 5 7021-8 ####[facility] LABCLIA [id number] [place] [address] [place] Nucleated RBC/100 WBC (Bld) [Ratio] 0.0 /100 WBC Normal [facility] Comment on above: Order Comment: Speci men Type: BLOOD SPECIMENOrdering Facility: [facility] Address: [address] [place] [address] Performed By: #### 5 7021-8 ####[facility] LABCLIA [id number] [place] [address] [place] Platelet mean volume (Bld) [Entitic vol] 11.9 fL Normal 9.0-12.7 [facility] Comment on above: Order Comment: Speci men Type: BLOOD SPECIMENOrdering Facility: [facility] Address: [address] [place] [address] Performed By: #### 5 7021-8 ####[facility] LABCLIA [id number] [place] [address] [place] Platelets (Bld) [#/Vol] 385 10*3/uL Normal 150-400 [facility] Comment on above: Order Comment: Speci men Type: BLOOD SPECIMENOrdering Facility: [facility] Address: [address] [place] [address] Performed By: #### 5 7021-8 ####[facility] LABCLIA [id number] [address] [address] [place] RBC (Bld) [#/Vol] 4.43 10*6/uL Normal 4.20-6.00 [facility] Comment on above: Order Comment: Speci men Type: BLOOD SPECIMENOrdering Facility: [facility] Address: [address] [place] [address] Performed By: #### 5 7021-8 ####[facility] LABIA [id number] [place] [address] [place] WBC (Bld) [#/Vol] 11.49 10*3/uL High 3.70-11.00 [facility] Comment on above: Order Comment: Speci men Type: BLOOD SPECIMENOrdering Facility: [facility] Address: [address] [place] [address] Performed By: #### 5 7021-8 ####[facility] LABIA [id number] [address] [place] CNOVon 12-15-2024 [facility] HYUN ELIAS ([id number]) 1975 M Date Time Provider Department 12/15/24 2:20 PM [facility] During your visit today, we recorded [...] Yes Frequency: 2.0 times per week Comment: Fellows per patient Reviewed current medications, allerg (more content not included)... Normal [facility] CRP SerPl-mCncon 12-15-2024 CRP [Mass/Vol] 8.7 mg/dL High <0.9 [facility] Comment on above: Order Comment: Speci men Type: BLOOD SPECIMENOrdering Facility: [facility] Address: [address] [place] [address] Performed By: #### 2 532-0, 3016-3, 13134-9, 1987- ####[facility] LABCLIA [id number] [address] metabolic 2000 panelon 12-15-2024 Albumin [Mass/Vol] 3.9 g/dL Normal 3.9-4.9 [facility] Comment on above: Order Comment: Speci men Type: BLOOD SPECIMENOrdering Facility: [facility] Address: [address] [place], [place] [address] Performed By: #### 2 532-0, 6-3, , 1987-11 ####[facility] LABCLIA [id number] [place] [id number] [place] ALP [Catalytic activity/Vol] 72 U/L Normal 38-113 [facility] Comment on above: Order Comment: Speci men Type: BLOOD SPECIMENOrdering Facility: [facility] Address: [address] [place] [address] Performed By: #### 2 532-0, 3015-3, , 1987-11 ####[facility] LABIA [id number] [place] [id number] [place] ALT [Catalytic activity/Vol] 12 U/L Normal 10-54 [facility] Comment on above: Order Comment: Speci men Type: BLOOD SPECIMENOrdering Facility: [facility] Address: [address] [place], [place] [address] Performed By: #### 2 532-0, 3015-3, , 1987-11 ####[facility] LABIA [id number] [place] [id number] [place] Anion gap [Moles/Vol] 16 mmol/L High 8-15 [facility] Comment on above: Order Comment: Speci men Type: BLOOD SPECIMENOrdering Facility: [facility] Address: [address] [place] [address] Performed By: #### 2 532-0, 3015-3, , 1987-11 ####[facility] LABCLIA [id number] [address] [address] [place] AST [Catalytic activity/Vol] 15 U/L Normal 14-40 [facility] Comment on above: Order Comment: Speci men Type: BLOOD SPECIMENOrdering Facility: [facility] Address: [address] [place] [address] Performed By: #### 2 532-0, 6-3, , 1987-11 ####[facility] LABCLIA [id number] [place] [address] [place] Bilirubin [Mass/Vol] 0.4 mg/dL Normal 0.2-1.3 [facility] Comment on above: Order Comment: Speci men Type: BLOOD SPECIMENOrdering Facility: [facility] Address: [address] [place] [address] Performed By: #### 2 532-0, 3, , 1987-11 ####[facility] LABIA [id number] [place] [address] [place] Calcium [Mass/Vol] 9.5 mg/dL Normal 8.5-10.2 [facility] Comment on above: Order Comment: Speci men Type: BLOOD SPECIMENOrdering Facility: [facility] Address: [address] [place] [address] Performed By: #### 2 532-0, 3, , 1987-11 ####[facility] LABIA [id number] [place] [address] [place] Chloride [Moles/Vol] 95 mmol/L Low 98-107 [facility] Comment on above: Order Comment: Speci men Type: BLOOD SPECIMENOrdering Facility: [facility] Address: [address] [place] [address] Performed By: #### 2 532-0, 3015-3, , 1987-11 ####[facility] LABCLIA [id number] [place] [id number] [place] CO2 [Moles/Vol] 19 mmol/L Low 22-30 [facility] Comment on above: Order Comment: Speci men Type: BLOOD SPECIMENOrdering Facility: [facility] Address: [address] [place] [address] Performed By: #### 2 532-0, 3016-3, , 1987-11 ####[facility] LABCLIA [id number] [address] [address] [place] Creatinine [Mass/Vol] 0.87 mg/dL Normal 0.73-1.22 [facility] Comment on above: Order Comment: Speci men Type: BLOOD SPECIMENOrdering Facility: [facility] Address: [address] [place] [address] Performed By: #### 2 532-0, 3015-3, , 1987-11 ####[facility] LABIA [id number] [place] [address] [place] Creatinine and Glomerular filtration rate.predicted panel (S/P/Bld) 104 mL/min/1.73m??? Normal >=60 [facility] Comment on above: Order Comment: Speci men Type: BLOOD SPECIMENOrdering Facility: [facility] Address: [address] [place] [address] Result Comment: Anika mated Glomerular Filtration Rate [...] actual GFR. Performed By: #### 2 532-0, 3015-3, , 1987-11 ####[facility] LABCLIA [id number] [address] [address] [place] Glucose [Mass/Vol] 182 mg/dL High 74-99 [facility] Comment on above: Order Comment: Speci men Type: BLOOD SPECIMENOrdering Facility: [facility] Address: [address] [place] [address] Result Comment: The [place] Diabetes Association (ADA) provides guidance for cutoff [...] Standards of Medical Care in Diabetes 2016, [place] Diabetes Association. Diabetes Care. 2016.39(Suppl 1). Performed By: #### 2 532-0, 3015-3, , 1987-11 ####[facility] LABCLIA [id number] [place] [address] [place] Potassium [Moles/Vol] 4.4 mmol/L Normal 3.7-5.1 [facility] Comment on above: Order Comment: Speci men Type: BLOOD SPECIMENOrdering Facility: [facility] Address: [address] [place] [address] Performed By: #### 2 532-0, 3, , 1987-11 ####[facility] LABIA [id number] [place] [id number] [place] Protein [Mass/Vol] 7.6 g/dL Normal 6.3-8.0 [facility] Comment on above: Order Comment: Speci men Type: BLOOD SPECIMENOrdering Facility: [facility] Address: [address] [place], [place] [address] Performed By: #### 2 532-0, 3015-3, , 1987-11 ####[facility] LABCLIA [id number] [facility] [address] [address] [place] Sodium [Moles/Vol] 130 mmol/L Low 136-144 [facility] Comment on above: Order Comment: Speci men Type: BLOOD SPECIMENOrdering Facility: [facility] Address: [address] [place] [address] Performed By: #### 2 532-0, 6-3, , 1987-11 ####[facility] LABCLIA [id number] [place] [id number] [place] Urea nitrogen [Mass/Vol] 11 mg/dL Normal 9-24 [facility] Comment on above: Order Comment: Speci men Type: BLOOD SPECIMENOrdering Facility: [facility] Address: [address] [place] [address] Performed By: #### 2 532-0, 3, , 1987-11 ####[facility] LABIA [id number] [place] [address] [place] LDH SerPl-cCncon 12-15-2024 LDH [Catalytic activity/Vol] 186 U/L Normal 135-225 [facility] Comment on above: Order Comment: Speci men Type: BLOOD SPECIMENOrdering Facility: [facility] Address: [address] [place] [address] Result Comment: Hemo lysis present. The origin [...] clinically indicated. Performed By: #### 2 532-0, 6-3, , 1987-11 ####[facility] LABIA [id number] [place] [id number] [place] TOXICOLOGY SCREEN, ROUTINE U RINEon 12-15-2024 Amphetamines Confirm (U) [Mass/Vol] Negative Normal Negative [facility] Comment on above: Order Comment: Speci men Type: URINE SPECIMENOrdering Facility: [facility] Address: [address] [place] [address] Result Comment: Cuto ff threshold at 1000 ng/mL. Performed By: #### U TOX2 ####[facility] LABCLIA [id number] [place] [address] [place] BARBITURATES, URINE Negative Normal Negative [facility] Comment on above: Order Comment: Speci men Type: URINE SPECIMENOrdering Facility: [facility] Address: [address] [place] [address] Result Comment: Cuto ff threshold at 200 ng/mL. Performed By: #### U TOX2 ####[facility] LABCLIA [id number] [place] [address] [place] BENZODIAZEPINES, UR Negative Normal Negative [facility] Comment on above: Order Comment: Speci men Type: URINE SPECIMENOrdering Facility: [facility] Address: [address] [place] [address] Result Comment: Cuto ff threshold at 200 ng/mL. Performed By: #### U TOX2 ####[facility] LABCLIA [id number] [place] [address] [place] Cannabinoids Screen Ql (U) Positive Abnormal Negative [facility] Comment on above: Order Comment: Speci men Type: URINE SPECIMENOrdering Facility: [facility] Address: [address] [place] [address] Result Comment: Cuto ff threshold at 50 ng/mL. Performed By: #### U TOX2 ####[facility] LABCLIA [id number] [place] [address] [place] Cocaine Ql (U) Negative Normal Negative [facility] Comment on above: Order Comment: Speci men Type: URINE SPECIMENOrdering Facility: [facility] Address: [address] [place] [address] Result Comment: Cuto ff threshold at 300 ng/mL. Performed By: #### U TOX2 ####[facility] LABCLIA [id number] [place] [address] [place] Ethanol (U) [Mass/Vol] <11 Normal <11 [facility] Comment on above: Order Comment: Speci men Type: URINE SPECIMENOrdering Facility: [facility] Address: [address] [place] [address] Performed By: #### U TOX2 ####[facility] LABIA [id number] [place] [address] [place] Opiates Screen Ql (U) Negative Normal Negative [facility] Comment on above: Order Comment: Speci men Type: URINE SPECIMENOrdering Facility: [facility] Address: [address] [place] [address] Result Comment: Cuto ff threshold at 300 ng/mL. Performed By: #### U TOX2 ####[facility] LABIA [id number] [address] [place] oxyCODONE cutoff Screen (U) [Mass/Vol] Positive Abnormal Negative [facility] Comment on above: Order Comment: Speci men Type: URINE SPECIMENOrdering Facility: [facility] Address: [address] [place] [address] Result Comment: Cuto ff threshold at 100 ng/mL. Performed By: #### U TOX2 ####[facility] LABIA [id number] [address] [place] Phencyclidine Ql (U) Negative Normal Negative [facility] Comment on above: Order Comment: Speci men Type: URINE SPECIMENOrdering Facility: [facility] Address: [address] [place] [address] Result Comment: Cuto ff threshold at 25 ng/mL. Performed By: #### U TOX2 ####[facility] LABCLIA [id number] [place] [address] [place] TSH SerPl-aCncon 12-15-2024 TSH Qn 3.280 m[IU]/L Normal 0.270-4.200 [facility] Comment on above: Order Comment: Speci men Type: BLOOD SPECIMENOrdering Facility: [facility] Address: [address] [place] [address] Performed By: #### 2 532-0, 3016-3, 32920-8, 1988- ####[facility] LABCLIA [id number] [place] [address] [place] XR ABDOMEN 1V [...] 2.6 cm. IMPRESSION: Nonobstructive bowel gas pattern. Nuisance Animal Damage Control Agent: ARASH Transcribe Date/Time: Dec 15 2024 3:55P Dictated by : ELÍAS SAUNDERS MD This examination was interpreted and the report reviewed and electronically signed by: ELÍAS SAUNDERS MD on Dec 15 2024 3:56PM EST [id number] Normal [facility] XR Abdomen Supine and Uprigh ton 12-15-2024 IMPRESSION: Nonobstructive bowel gas pattern. Nuisance Animal Damage Control Agent: PSCB Transcribe Date/Time: Dec 15 2024 3:55P Dictated [...] to 2.6 cm. DIVISION OF RADIOLOGY Provider, Peterson Magdaleno [facility] - 12/15/2024 * * *Final Report* [...] cm. IMPRESSION IMPRESSION: Nonobstructive bowel gas pattern. Nuisance Animal Damage Control Agent: [facility] Transcribe Date/Time: Dec 15 2024 3:55P Dictated by : ELÍAS SAUNDERS MD This examination was interpreted and the report reviewed and electronically signed by: ELÍAS SAUNDERS MD on Dec 15 2024 3:56PM [facility] Radiology Study observation (narrative) Nataly julian [facility] XR Abdomen Supine and Uprigh tOrdered By: [facility] Provider on 12-15-2024 [facility] 11-28-2024 CNPN Telephone (FAMPWS) HYUN ELIAS ([id number]) 1975 M Date Time Provider Department 11/28/24 CRISTIAN ADAMEWS During your visit today, we recorded the [...] Call pt when with dr's message. Cristian Adame MD 11/28/2024 2:23 PM [...] Order(s):TOXICOLOGY SCREEN, ROUTINE URINE [SQUTOX2] Order #: [id number] oxyCODONE IR (ROXICODONE) 5 mg immediate release [...] Encounter Status:Closed by CRISTIAN ADAME on 11/28/24 [facility] Dana 11-23-2024 [facility] Telephone ([facility] FACEMIHYUN BLACKBURN ([id number]) 1975 M Date Time Provider Department 11/23/24 CRISTIAN ADAME During your visit today, we [...] Encounter Status:Closed by Monserrat ALCANTARA on 11/23/24 [facility] CNOVon 11-22-2024 CNOV Office Visit (FAMPWS ) HYUN ELIAS ([id number]) 1975 M Date Time Provider Department 11/22/24 [...] visit: Abdominal pain, left sided Which facility: [facility] Date of visit: 11/12/24 Diagnosis: Lymphadenopathy Testing done: Labs and CT scan.Treatment given: IV fluids, antinausea and pain meds Current symptoms: Having chest pain currently. Mentions a strange odor he's had since jul/aug. Ct of chest/abd/pelvis Showed "innumerable pulmonary nodules throughout both lungs, with mediastinal and hilar lymphadenopathy, most compatible with primary lung neoplasm and marielena metastatic disease. Pulmonary metastases or lymphoma are additional considerations. Small right hepatit lobe hypodensity and large centrally necrotic retroperitoneal and gastric lymphadenopathy, compatible to hepatic and marielena metastatic disease. The ER doc in [facility] referred to [facility]. Has been seen by [facility] on 11/14. They are going to [...] Yes Frequency: 2.0 times per week Comment: Fellows per patient Reviewed current medications, allergies, past [...] Cessation encouraged. (more content not included)... Normal [facility] HbA1c (Bld)on 11-22-2024 Average glucose Estimated from glycated hemoglobin (Bld) [Mass/Vol] 169 mg/dL Normal [facility] Comment on above: Order Comment: Speci men Type: BLOOD SPECIMENOrdering Facility: [facility] Address: [address] [place] [address] Result Comment: eAG: (Estimated average glucose) is a calculated value from HgbA1c and is apprenticeship training representative of the average blood glucose level in the last 2-3 month period. Performed By: #### 5 5454-3 ####[facility] LABCLIA [id number] [place] [id number] [place] HbA1c (Bld) [Mass fraction] 7.5 % High 4.3-5.6 [facility] Comment on above: Order Comment: Speci men Type: BLOOD SPECIMENOrdering Facility: [facility] Address: [address] [place] [address] Result Comment: [place] Diabetes Association guidelines indicate that patients with HgbA1c in the range 5.7-6.4% are at increased risk for development of diabetes, and intervention by lifestyle modification may be beneficial. HgbA1c greater or equal to 6.5% is considered diagnostic of diabetes. Performed By: #### 5 5454-3 ####[facility] LABIA [id number] [place] [id number] [place] Activated partial thrombopla stin time (aPTT) in platelet poor plasma by coagulation aOrdered By: Denny Moffett on 11-14-2024 aPTT Coag (PPP) [Time] 26.6 s 24.1-36.2 [facility] normalized rat io (INR) calculationOrdered By: Denny Moffett on 11-14-2024 INR Coag (Bld) [Relative time] 1.1 {INR} [facility] PLATELET COUNTon 11-14-2024 Platelets (Bld) [#/Vol] 324 10*3/uL Normal 150-450 [facility] Comment on above: Performed By: #### L 501.5500, L501.7300, L501.7400 #### [facility] [address] [place], [address] Partial Thromboplast Timeon 11-14-2024 aPTT Coag (Bld) [Time] 26.6 s Normal 24.1-36.2 [facility] Comment on above: Performed By: #### L 501.5500, L501.7300, L501.7400 #### [facility] [address] [place], [address] Platelet countOrdered By: Benson on 11-14-2024 Platelets (Bld) [#/Vol] 324 10*3/uL 150-450 [facility] Prothrombin Time w/INRon INR Coag (PPP) [Relative time] 1.1 {INR} Normal [facility] Comment on above: Performed By: #### L 501.5500, L501.7300, L501.7400 #### [facility] [address] [place], [address] PT Coag (PPP) [Time] 14.0 s Normal 11.7-14.9 [facility] Comment on above: Performed By: #### L 501.5500, L501.7300, L501.7400 #### [facility] [address] [place], [address] Prothrombin timeOrdered By: Denny Moffett on 11-14-2024 PT Coag (PPP) [Time] 14.0 s 11.7-14.9 [facility] Pulmonary Visit Reporton Pulmonary Visit Report [facility] [place] [address] [address] [place], [place] [address] OFFICE VISIT Date of Service: 11/14/24 MR#: [id number] Acct: [id number] Name: HYUN ELIAS Rep #: [id number] : 1975 Provider: Dr. Denny Moffett DO Age/Sex: 49/M Location: [facility] Status: Signed Assessment and Plan Assessment [...] hilar lymphadenopathy. The patient has an approximate 25-gsuc-nvuj smoking history and continues to smoke daily. [...] room air Intake Visit Reasons: Fast Pass Weighter Required: No DME Vendor: n/a Accompanied by: [...] rales C (more content not included)... Normal [facility] Absolute lymphocyte countOrd ered By: Dionicio Grimes on 11-12-2024 Lymphocytes Auto (Unsp spec) [#/Vol] 2.09 10*3/uL 0.83-4.51 [facility] Absolute neutrophil countOrd ered By: Dionicio Grimes on 11-12-2024 Neutrophils (Bld) [#/Vol] 7.1 10*3/uL 2.0-7.7 [facility] Anion gap in Serum or Plasma Ordered By: Dionicio Grimes on 11-12-2024 Anion gap [Moles/Vol] 12 mmol/L 5-15 [facility] Automated lymphocyte count a s percentage of total leukocytesOrdered By: Dionicio Grimes on 11-12-2024 Lymphocytes/100 WBC Auto (Unsp spec) 20.4 % 19- [facility] BUN/creatinine ratioOrdered By: Dionicio Grimes on 11-12-2024 Urea nitrogen/Creatinine [Mass ratio] 14.3 mg/mg 10-20 [facility] Basophil percentageOrdered B y: Dionicio Grimes on 11-12-2024 Basophils/100 WBC (Bld) 1.1 % High 0-1 [facility] Bilirubin, totalOrdered By: Dionicio Grimes on 11-12-2024 Bilirubin [Mass/Vol] 0.29 mg/dL 0.00-1.30 [facility] CBC W/Diff, Automatedon Absolute Lymph 2.09 X10 3/uL Normal 0.83-4.51 [facility] Comment on above: Performed By: #### L 501.5500, L501.7300, L501.7400 #### [facility] [address] [place], [address] Absolute Neut 7.1 X10 3/uL Normal 2.0-7.7 [facility] Comment on above: Performed By: #### L 501.5500, L501.7300, L501.7400 #### [facility] [address] [place], [address] Basophils/100 WBC (Bld) 1.1 % High 0-1 [facility] Comment on above: Performed By: #### L 501.5500, L501.7300, L501.7400 #### [facility] [address] [place], [address] Eosinophils/100 WBC (Bld) 1.8 % Normal 0-5 [facility] Comment on above: Performed By: #### L 501.5500, L501.7300, L501.7400 #### [facility] [address] [place], [address] Erythrocyte distribution width (RBC) [Ratio] 13.4 % Normal 11.6-14.6 [facility] Comment on above: Performed By: #### L 501.5500, L501.7300, L501.7400 #### [facility] [address] [place], [address] Hematocrit (Bld) [Volume fraction] 41.5 % Normal 40-54 [facility] Comment on above: Performed By: #### L 501.5500, L501.7300, L501.7400 #### [facility] [address] [place], [address] Hemoglobin (Bld) [Mass/Vol] 13.9 g/dL Normal 13.0-16.5 [facility] Comment on above: Performed By: #### L 501.5500, L501.7300, L501.7400 #### [facility] [address] [place], [address] IG% 0.600 Normal 0.0-0.9 [facility] Comment on above: Result Comment: IG% - Immature Granulocytes (promyelocytes, myelocytes and metamyelocytes) > 1% indicates that a LEFT SHIFT is Present. Performed By: #### L 501.5500, L501.7300, L501.7400 #### [facility] [address] [place], [address] Lymphocytes/100 WBC (Bld) 20.4 % Normal 19-41 [facility] Comment on above: Performed By: #### L 501.5500, L501.7300, L501.7400 #### [facility] [address] [place], [address] MCH (RBC) [Entitic mass] 29.3 pg Normal 27.0-32.0 [facility] Comment on above: Performed By: #### L 501.5500, L501.7300, L501.7400 #### [facility] [address] [place], [address] MCHC (RBC) [Mass/Vol] 33.5 g/dL Normal 32-36 [facility] Comment on above: Performed By: #### L 501.5500, L501.7300, L501.7400 #### [facility] [address] [place], [address] MCV (RBC) [Entitic vol] 87.6 fL Normal 80-94 [facility] Comment on above: Performed By: #### L 501.5500, L501.7300, L501.7400 #### [facility] [address] [place], [address] Monocytes/100 WBC (Bld) 6.5 % Normal 0-10 [facility] Comment on above: Performed By: #### L 501.5500, L501.7300, L501.7400 #### [facility] [address] [place], [address] Neutrophils/100 WBC (Bld) 69.6 % Normal 47-70 [facility] Comment on above: Performed By: #### L 501.5500, L501.7300, L501.7400 #### [facility] [address] [place], [address] Nucleated RBC (Bld) [#/Vol] 0 10*3/uL Normal 0-5 [facility] Comment on above: Performed By: #### L 501.5500, L501.7300, L501.7400 #### [facility] [address] [place], [address] Platelet mean volume (Bld) [Entitic vol] 11.4 fL Normal 6.2-12.0 [facility] Comment on above: Performed By: #### L 501.5500, L501.7300, L501.7400 #### [facility] [address] [place], [address] Platelets (Bld) [#/Vol] 262 10*3/uL Normal 150-450 [facility] Comment on above: Performed By: #### L 501.5500, L501.7300, L501.7400 #### [facility] [address] [place], [address] RBC (Bld) [#/Vol] 4.74 10*6/uL Normal 4.6-6.2 [facility] Comment on above: Performed By: #### L 501.5500, L501.7300, L501.7400 #### [facility] [address] [place], [address] RDW SD 43.4 fl Normal 35.1-43.9 [facility] Comment on above: Performed By: #### L 501.5500, L501.7300, L501.7400 #### [facility] [address] [place], [address] WBC (Bld) [#/Vol] 10.2 10*3/uL Normal 4.4-11.0 [facility] Comment on above: Performed By: #### L 501.5500, L501.7300, L501.7400 #### [facility] [address] [place], [address] CT Chest, Abd, Pel w/Contras ton 11-12-2024 CT Chest, Abd, Pel w/Contrast [facility] Imaging Services [address] [place] [address] CT Chest, Abd, Pel w/Contrast MR#: [id number] Acct: [id number] Name: HYUN ELIAS Rep #: [id number] : 1975 M 49 From: Jacquelyn Howell nd, MD PCP: Dr. Cristian Adame MD Status: [facility] ER Study: CT Chest, Abd, Pel w/Contrast Date of Exam: Exam# [id number] Ordering Dr: Dioincio Grimes DO PROCEDURE: CT CHEST, ABD, PEL [...] Lymph nodes: Mediastinal and hilar lymphadenopathy. A apprenticeship training representative right paratracheal node measures 1.9 x 1.7 cm (series 3, image 43). No axillary lymphadenopathy. Heart and Vasculature: The heart is normal in size without pericardial effusion. No coronary artery calcifications. The great vessels are normal in caliber. Lungs and Airways: The central airways are patent. Innumerable pulmonary nodules throughout all 5 lung lobes. A apprenticeship training representative right upper lobe subpleural pulmonary nodule [...] centrally necrotic retroperitoneal and gastric lymphadenopathy. A apprenticeship training representative left lateral aortic/para-aortic node measures 2.9 [...] at 11:15 a.m. on 11/12/2024. Reading Location: [facility] CC: Dr. Dionicio Grimes DO; Dr. Cristian Adame MD Nuisance Animal Damage Control Agent: Signed Normal [facility] Carbon dioxide, total [Moles /volume] in Central venous bloodOrdered By: Dionicio Grimes on 11-12-2024 CO2 [Moles/Vol] 21.4 mmol/L 21.0-32.0 [facility] Chloride assayOrdered By: Jamin Grimes on 11-12-2024 Chloride [Moles/Vol] 102 mmol/L 98-108 [facility] Comprehensive Metabolic Prof ilon 11-12-2024 Albumin [Mass/Vol] 3.8 g/dL Normal 3.5-5.0 [facility] Comment on above: Performed By: #### L 501.5500, L501.7300, L501.7400 #### [facility] [address] [place], [address] Albumin/Globulin [Mass ratio] 1.0 {ratio} Normal 0.9-2.4 [facility] Comment on above: Performed By: #### L 501.5500, L501.7300, L501.7400 #### [facility] [address] [place], [address] ALK PHOS 70 U/L Normal 40-129 [facility] Comment on above: Performed By: #### L 501.5500, L501.7300, L501.7400 #### [facility] [address] [place], [address] ALT [Catalytic activity/Vol] 8 U/L Normal <=46 [facility] Comment on above: Performed By: #### L 501.5500, L501.7300, L501.7400 #### [facility] [address] [place], [address] AST [Catalytic activity/Vol] 13 U/L Normal <=37 [facility] Comment on above: Performed By: #### L 501.5500, L501.7300, L501.7400 #### [facility] [address] [place], [address] Bilirubin [Mass/Vol] 0.29 mg/dL Normal 0.00-1.30 [facility] Comment on above: Performed By: #### L 501.5500, L501.7300, L501.7400 #### [facility] [address] [place], [address] BUN/CRE 14.3 RATIO Normal 10-20 [facility] Comment on above: Performed By: #### L 501.5500, L501.7300, L501.7400 #### [facility] [address] [place], [address] Calcium [Mass/Vol] 9.1 mg/dL Normal 7.6-11.0 [facility] Comment on above: Performed By: #### L 501.5500, L501.7300, L501.7400 #### [facility] [address] [place], [address] Chloride [Moles/Vol] 102 mmol/L Normal 98-108 [facility] Comment on above: Performed By: #### L 501.5500, L501.7300, L501.7400 #### [facility] [address] [place], [address] CO2 [Moles/Vol] 21.4 mmol/L Normal 21.0-32.0 [facility] Comment on above: Performed By: #### L 501.5500, L501.7300, L501.7400 #### [facility] [address] [place], [address] Creatinine [Mass/Vol] 0.85 mg/dL Normal 0.70-1.20 [facility] Comment on above: Performed By: #### L 501.5500, L501.7300, L501.7400 #### [facility] [address] [place], [address] ECRCL 102.82 ml/min Normal 50-250 [facility] Comment on above: Performed By: #### L 501.5500, L501.7300, L501.7400 #### [facility] [address] [place], [address] GAP 12 Normal 5-15 [facility] Comment on above: Performed By: #### L 501.5500, L501.7300, L501.7400 #### [facility] [address] [place], [address] GFR/1.73 sq M.predicted among non-blacks MDRD (S/P/Bld) [Vol rate/Area] 105 mL/min/{1.73_m2} Normal >60 [facility] Comment on above: Result Comment: mL/m in/1.73m2 CKD-EPI Creatinine Equation (2020) Performed By: #### L 501.5500, L501.7300, L501.7400 #### [facility] [address] [place], [address] Globulin (S) [Mass/Vol] 4.0 g/dL Normal 2.2-4.2 [facility] Comment on above: Performed By: #### L 501.5500, L501.7300, L501.7400 #### [facility] [address] [place], [address] Glucose [Mass/Vol] 283 mg/dL High 70-99 [facility] Comment on above: Performed By: #### L 501.5500, L501.7300, L501.7400 #### [facility] [address] [place], [address] Potassium [Moles/Vol] 3.9 mmol/L Normal 3.3-5.1 [facility] Comment on above: Performed By: #### L 501.5500, L501.7300, L501.7400 #### [facility] [address] [place], [address] Sodium [Moles/Vol] 135 mmol/L Normal 133-145 [facility] Comment on above: Performed By: #### L 501.5500, L501.7300, L501.7400 #### [facility] [address] [place], [address] T PROT 7.8 g/dL Normal 5.9-8.4 [facility] Comment on above: Performed By: #### L 501.5500, L501.7300, L501.7400 #### [facility] [address] [place], [address] Urea nitrogen [Mass/Vol] 12 mg/dL Normal 4-19 [facility] Comment on above: Performed By: #### L 501.5500, L501.7300, L501.7400 #### [facility] [address] [place], [address] Emergency Department Summary on 11-12-2024 Emergency Department Summary [facility] Medical Records Department [address] [place] [address] Emergency Department Summary 11/12/24 MR#: [id number] Acct: [id number] Name: HYUN ELIAS Rep #: [id number] : 1975 49 From: Dionicio Grimes DO [...] Oxygen Delivery Method Room Air Room Air MDM MDM MDM Narrative Medical decision making narrative: [...] reviewed, Vital signs reviewed Constitutional: [facility] see [facility] HENT: MMM Eyes: Pupils equal round and [...] MEDICAL DECISION MAKING: Chief Complaint: please see [facility] External records reviewed: Reviewed prior surgical intervention Factors affecting care: left inguinal hernia status post repair Social determinants of health: Denies alcohol History obtained from others: none Consults: none [facility] Narrative: The patient was initially hemodynamically stable, [...] hepatobiliary ob (more content not included)... Normal [facility] Eosinophil percentageOrdered By: Dionicio Grimes on 11-12-2024 Eosinophils/100 WBC (Bld) 1.8 % 0-5 [facility] Erythrocyte distribution wid th ratioOrdered By: Dionicio Grimes on 11-12-2024 Erythrocyte distribution width (RBC) [Ratio] 13.4 % 11.6-14.6 [facility] Erythrocyte distribution wid th standard deviationOrdered By: Dionicio Grimes on 11-12-2024 Erythrocyte distribution width (RBC) [Ratio] 43.4 fl 35.1-43.9 [facility] Glomerular filtration rate ( GFR) estimation/1.73 sq m using serum, plasma, or whole bOrdered By: Dionicio Grimes on 11-12-2024 GFR/1.73 sq M.predicted among non-blacks MDRD (S/P/Bld) [Vol rate/Area] 105 mL/min/{1.73_m2} >60 [facility] Comment on above: mL/min/1.73m2 CKD-EP I Creatinine Equation (2020) Hematocrit Auto (Bld) [Volum e fraction]Ordered By: Dionicio Grimes on 11-12-2024 Hematocrit (Bld) [Volume fraction] 41.5 % 40-54 [facility] Hemoglobin measurementOrdere d By: Dionicio Grimes on 11-12-2024 Hemoglobin (Bld) [Mass/Vol] 13.9 g/dL 13.0-16.5 [facility] Immature granulocytes/100 WB C Auto (Bld)Ordered By: Dionicio Grimes on 11-12-2024 Immature granulocytes/100 WBC (Bld) 0.600 % 0.0-0.9 [facility] Comment on above: IG% - Immature Granu locytes (promyelocytes, myelocytes and metamyelocytes) > 1% indicates that a LEFT SHIFT is Present. Laboratory - Chemistry and C hemistry - challengeOrdered By: Dionicio Grimes on 11-12-2024 AST [Catalytic activity/Vol] 13 U/L <38 [facility] Lipaseon 11-12-2024 Lipase [Catalytic activity/Vol] 26 U/L Normal 13-75 [facility] Comment on above: Result Comment: Maria Ines greenberg note: LIPASE revised reference range effective 22. New Lipase methodology. Expected to produce lower values than the previous assay method. NEW Reference Range: 13 - 75 U/L Performed By: #### L 501.5500, L501.7300, L501.7400 #### [facility] [place], [address] Lipase measurementOrdered By : Dionicio Grimes on 11-12-2024 Lipase [Catalytic activity/Vol] 26 U/L 13-75 [facility] Comment on above: Please note:LIPASE r evised reference range effective 22. New Lipase methodology. Expected to produce lower values than the previous assay method. NEW Reference Range: 13 - 75 U/L MCV (mean corpuscular volume ) determinationOrdered By: Dionicio Grimes on 11-12-2024 MCV (RBC) [Entitic vol] 87.6 fL 80-94 [facility] Mean corpuscular hemoglobin (MCH) determinationOrdered By: Dionicio Grimes on 11-12-2024 MCH (RBC) [Entitic mass] 29.3 pg 27.0-32.0 [facility] Mean corpuscular hemoglobin concentration (MCHC) determinationOrdered By: Dionicio Grimes on 11-12-2024 MCHC (RBC) [Mass/Vol] 33.5 g/dL 32-36 [facility] Mean platelet volume determi nationOrdered By: Dionicio Grimes on 11-12-2024 Platelet mean volume (Bld) [Entitic vol] 11.4 fL 6.2-12.0 [facility] Monocyte percentageOrdered B y: Dionicio Grimes on 11-12-2024 Monocytes/100 WBC (Bld) 6.5 % 0-10 [facility] Neutrophil percentageOrdered By: Dionicio Grimes on 11-12-2024 Neutrophils/100 WBC (Bld) 69.6 % 47-70 [facility] Nucleated red blood cell per centageOrdered By: Dionicio Grimes on 11-12-2024 Nucleated RBC/100 WBC (Bld) [Ratio] 0 % 0-5 [facility] Platelet countOrdered By: Jamin Grimes on 11-12-2024 Platelets (Bld) [#/Vol] 262 10*3/uL 150-450 [facility] Potassium measurement (mass/ volume)Ordered By: Dionicio Grimes on 11-12-2024 Potassium (Unsp spec) [Mass/Vol] 3.9 mmol/L 3.3-5.1 [facility] RBC Auto (Bld) [#/Vol]Ordere d By: Dionicio Grimes on 11-12-2024 RBC (Bld) [#/Vol] 4.74 10*6/uL 4.6-6.2 [facility] Serum creatinine measurement (mass/volume)Ordered By: Dionicio Grimes on 11-12-2024 Creatinine [Mass/Vol] 0.85 mg/dL 0.70-1.20 [facility] Serum globulin measurementOr dered By: Dionicio Grimes on 11-12-2024 Globulin (S) [Mass/Vol] 4.0 g/dL 2.2-4.2 [facility] Serum glucose measurement (m ass/volume)Ordered By: Dionicio Grimes on 11-12-2024 Glucose [Mass/Vol] 283 mg/dL High 70-99 [facility] Serum or plasma alanine montenegro otransferase (ALT) measurementOrdered By: Dionicio Grimes on 11-12-2024 ALT [Catalytic activity/Vol] 8 U/L <47 [facility] Serum or plasma albumin darien urement (mass/volume)Ordered By: Dionicio Grimes on 11-12-2024 Albumin [Mass/Vol] 3.8 g/dL 3.5-5.0 [facility] Serum or plasma albumin/glob ulin mass ratioOrdered By: Dionicio Grimes on 11-12-2024 Albumin/Globulin [Mass ratio] 1.0 {ratio} 0.9-2.4 [facility] Serum or plasma alkaline maría sphatase measurementOrdered By: Dionicio Grimes on 11-12-2024 ALP [Catalytic activity/Vol] 70 U/L 40-129 [facility] Serum or plasma calcium darien urement (mass/volume)Ordered By: Dionicio Grimes on 11-12-2024 Calcium [Mass/Vol] 9.1 mg/dL 7.6-11.0 [facility] Serum or plasma urea nitroge n measurement (mass/volume)Ordered By: Dionicio Sydney on 11-12-2024 Urea nitrogen [Mass/Vol] 12 mg/dL 4-19 [facility] Sodium levelOrdered By: Minh stephenie Boydrus on 11-12-2024 Sodium [Moles/Vol] 135 mmol/L 133-145 [facility] Total proteinOrdered By: Sparkle Grimes on 11-12-2024 Protein [Mass/Vol] 7.8 g/dL 5.9-8.4 [facility] White blood cell (WBC) count Ordered By: Dionicio Sydney on 11-12-2024 WBC (Bld) [#/Vol] 10.2 10*3/uL 4.4-11.0 [facility] CNPNon 11-09-2024 [facility]N Telephone [facility]UN [facility] ([id number]) 1975 M Date Time Provider Department 11/09/24 [facility] During your visit today, we recorded the following information about you: Monserrat Alcantara, DOLORES 11/09/2024 12:00 PM Addendum Girlfriend, Trudy, reports [...] to call squad and be seen at [facility]. Marshall Tran RN Allergies As of Date: [...] Status:Closed by MARSHALL TRAN on 11/09/24 Normal [facility] CBC W Auto Differential pane l (Bld)on 11-01-2023 Basophils (Bld) [#/Vol] 0.08 10*3/uL [facility] Basophils/100 WBC (Bld) 1.2 % C [facility] Differential cell count method Nom (Bld) Auto [facility] Eosinophils (Bld) [#/Vol] 0.10 10*3/uL [facility] Eosinophils/100 WBC (Bld) 1.5 % [facility] Erythrocyte distribution width (RBC) [Ratio] 14.3 % 11.5 - 15.0 % [facility] Hematocrit (Bld) [Volume fraction] 49.6 % 39.0 - 51.0 % [facility] Hemoglobin (Bld) [Mass/Vol] 16.6 g/dL 13.0 - 17.0 g/dL [facility] Immature granulocytes (Bld) [#/Vol] 0.03 10*3/uL [facility] Immature granulocytes/100 WBC (Bld) 0.5 % [facility] Lymphocytes (Bld) [#/Vol] 2.23 10*3/uL [facility] Lymphocytes/100 WBC (Bld) 34.4 % [facility] MCH (RBC) [Entitic mass] 30.4 pg 26.0 - 34.0 pg [facility] MCHC (RBC) [Mass/Vol] 33.5 g/dL 30.5 - 36.0 g/dL [facility] MCV (RBC) [Entitic vol] 90.8 fL 80.0 - 100.0 fL [facility] Monocytes (Bld) [#/Vol] 0.40 10*3/uL [facility] Monocytes/100 WBC (Bld) 6.2 % C [facility] Neutrophils (Bld) [#/Vol] 3.64 10*3/uL [facility] Neutrophils/100 WBC (Bld) 56.2 % [facility] Nucleated RBC (Bld) [#/Vol] [facility] Nucleated RBC/100 WBC (Bld) [Ratio] 0.0 % /100 WBC [facility] Platelet mean volume (Bld) [Entitic vol] 11.8 fL 9.0 - 12.7 fL [facility] Platelets (Bld) [#/Vol] 192 10*3/uL [facility] RBC (Bld) [#/Vol] 5.46 10*6/uL 4.20 - 6.0 0 m/uL [facility] WBC (Bld) [#/Vol] 6.48 10*3/uL [facility] Cobalamin (Vitamin B12) [Mas s/Vol]on 11-01-2023 Interpretation and review of laboratory results Normal [facility] Comprehensive metabolic 2000 panelon 11-01-2023 Albumin [Mass/Vol] 4.4 g/dL 3.9 - 4.9 g/dL [facility] ALP [Catalytic activity/Vol] 78 U/L 38 - 113 U/L [facility] ALT [Catalytic activity/Vol] 18 U/L 10 - 54 U/L [facility] Anion gap [Moles/Vol] 8 mmol/L Low 9 - 18 mmol/L [facility] AST [Catalytic activity/Vol] 18 U/L 14 - 40 U/L [facility] Bilirubin [Mass/Vol] 0.4 mg/dL 0.2 - 1 .3 mg/dL [facility] Calcium [Mass/Vol] 10.0 mg/dL 8.5 - 10. 2 mg/dL [facility] Chloride [Moles/Vol] 105 mmol/L 97 - 10 5 mmol/L [facility] CO2 [Moles/Vol] 25 mmol/L 22 - 30 mmol/L [facility] Creatinine [Mass/Vol] 0.92 mg/dL 0.73 - 1.22 mg/dL [facility] GFR/1.73 sq M.predicted among non-blacks MDRD (S/P/Bld) [Vol rate/Area] 101 mL/min/{1.73_m2} - PINF [facility] Comment on above: Estimated Glomerular Filtration Rate [...] 113 mg/dL High 74 - 99 mg/dL [facility] Comment on above: The [place] Diabete s Association (ADA) provides guidance for [...] Standards of Medical Care in Diabetes 2016, [place] Diabetes Association. Diabetes Care. 2016.39(Suppl 1). Potassium [Moles/Vol] 4.2 mmol/L 3.7 - 5.1 mmol/L [facility] Protein [Mass/Vol] 7.4 g/dL 6.3 - 8.0 g/dL [facility] Sodium [Moles/Vol] 138 mmol/L 136 - 144 mmol/L [facility] Urea nitrogen [Mass/Vol] 10 mg/dL 9 - 24 mg/dL [facility] HbA1c (Bld)on 11-01-2023 Average glucose Estimated from glycated hemoglobin (Bld) [Mass/Vol] 146 mg/dL [facility] Comment on above: eAG: (Estimated aver age glucose) is a calculated value from HgbA1c and is apprenticeship training representative of the average blood glucose level in the last 2-3 month period. HbA1c (Bld) [Mass fraction] 6.7 % High 4.3 - 5.6 % [facility] Comment on above: [place] Diabetes As sociation guidelines indicate that patients with HgbA1c in the range 5.7-6.4% are at increased risk for development of diabetes, and intervention by lifestyle modification may be beneficial. HgbA1c greater or equal to 6.5% is considered diagnostic of diabetes. Interpretation and review of laboratory results Abnormal [facility] LIPID PANEL, NONFASTINGon Cholesterol [Mass/Vol] 180 mg/dL NINF - 200 mg/dL [facility] Comment on above: <200 mg/dL, Desirabl e 200-239 mg/dL, Borderline high >239 mg/dL, High HDL Cholesterol, Nonfasting 38 mg/dL Low 39 - PINF mg/dL [facility] Comment on above: 40-59 mg/dL, Accepta ble >59 mg/dL, High: Negative risk factor for coronary heart disease <40 mg/dL, Low: Positive risk factor for coronary heart disease LDL Cholesterol, Nonfasting 117 mg/dL High NINF - 100 mg/dL [facility] Comment on above: <100 mg/dL, Optimal 100-129 mg/dL, Near optimal/above optimal 130-159 mg/dL, Borderline high 160-189 mg/dL, High >189 mg/dL, Very high Secondary prevention optimal LDL Cholesterol levels are recommended to be < 70 mg/dL LDL/HDL Ratio, Nonfasting 3.08 mg/dL High NINF - 2.54 mg/dL [facility] Comment on above: Reference: 1. National Cholesterol Education Program ATP III Guideline At-A-Glance Quick Desk Reference: National Heart, Lung, and Blood [place]. National Institutes of Health. 2001: NIH Publication No. 01-3305. 2. An International Atherosclerosis Society position paper: global recommendations for the management of dyslipidemia: executive summary, Atherosclerosis. 2014: 232(2):410-413. Non HDL Cholesterol, Nonfasting 142 mg/dL High NINF - 130 mg/dL [facility] Comment on above: <130 mg/dL, Optimal 130-159 mg/dL, Near optimal/above optimal 160-189 mg/dL, Borderline high 190-219 mg/dL, High >219 mg/dL, Very high Secondary prevention optimal non HDL Cholesterol levels are recommended to be <100 mg/dL Total Chol/HDL Ratio, Nonfasting 4.74 mg/dL NINF - 5.10 mg/dL [facility] Triglycerides, Nonfasting 125 mg/dL NINF - 150 mg/dL [facility] Comment on above: <150 mg/dL, Normal 150-199 mg/dL, Borderline high 200-499 mg/dL, High >499 mg/dL, Very high VLDL Cholesterol, Nonfasting 25 mg/dL NINF - 30 mg/dL [facility] MAGNESIUMon 11-01-2023 Magnesium [Mass/Vol] 2.1 mg/dL 1.7 - 2 .3 mg/dL [facility] Magnesium [Mass/Vol]on 10-31 Interpretation and review of laboratory results Normal [facility] No Panel Informationon 10-31 Interpretation and review of laboratory results Abnormal [facility] VITAMIN B12on 11-01-2023 Cobalamin (Vitamin B12) [Mass/Vol] 404 pg/mL 232 - 1245 pg/mL [facility] Office Visiton 12-02-2016 Alcoholism counseling (procedure) no Invalid Interpretation Code [facility] [employer] Work Phone: Documentation of current medications (procedure) T Invalid Interpretation Code [facility] [employer] Work Phone: Documentation of current medications (procedure) Done Invalid Interpretation Code [facility] [employer] [place] Work Phone: Fall risk assessment No Invalid Interpretation Code [facility] [facility] Work Phone: Smoking cessation education (procedure) yes Invalid Interpretation Code [facility] Work Phone: Tobacco smoking status NHIS Never Invalid Interpretation Code [facility] Work Phone: Tobacco use CPHS Current every day smoker Invalid Interpretation Code [facility] Work Phone: Vital Signs Date Time Vital Sign Value Performing Clinician Facility 03-22-2025 00:49-0400 Body height 175.[address] Cristian Adame MD Work Phone: [facility] 03-22-2025 00:49-0400 Body mass index (BMI) [Ratio] 17.7 kg/m2 Dr. Cristian Adame MD Work Phone: [facility] 03-22-2025 00:49-0400 Body weight 54.[address] Cristian Adame MD Work Phone: [facility] 03-22-2025 00:48-0400 Body temperature 98.1 [degF] Dr. Cristian Adame MD Work Phone: [facility] 03-22-2025 00:48-0400 Diastolic blood pressure 68 mm[Hg] Dr. Cristian Adame MD Work Phone: [facility] 03-22-2025 00:48-0400 Heart rate 88 /min Dr. Cristian Adame MD Work Phone: [facility] 03-22-2025 00:48-0400 Respiratory rate 16 /min Dr. Cristian Adame MD Work Phone: [facility] 03-22-2025 00:48-0400 SaO2% (BldA) [Mass fraction] 99 % Dr. Cristian Adame MD Work Phone: [facility] 03-22-2025 00:48-0400 Systolic blood pressure 103 mm[Hg] Dr. Cristian Adame MD Work Phone: [facility] 03-20-2025 13:41-0400 Body mass index (BMI) [Ratio] 16.93 kg/m2 Gilda Suppan [employer]ER[employer] QUALITY TECHNICIAN Work Phone: [facility] 03-20-2025 13:41-0400 Body temperature 98.2 [degF] Gilda Suppan [employer] CREW[employer]BER.[employer]ER[employer] QUALITY TECHNICIAN Work Phone: [facility] 03-20-2025 13:41-0400 Body weight 53.52 kg Gilda Suppan [employer] CREW[employer]BER.[employer]ER[employer] QUALITY TECHNICIAN Work Phone: [facility] 03-20-2025 13:41-0400 Diastolic blood pressure 58 mm[Hg] Gilda Suppan [employer] CREW[employer]BER.[employer] QUALITY TECHNICIAN Work Phone: [facility] 03-20-2025 13:41-0400 Heart rate 124 /min Gilda Suppan [employer] CRE[employer]BER.[employer]ER[employer] QUALITY TECHNICIAN Work Phone: [facility] 03-20-2025 13:41-0400 SaO2% (BldA) [Mass fraction] 96 % Gilda Suppan [employer] CRE[employer]BER.[employer]ER[employer] QUALITY TECHNICIAN Work Phone: [facility] 03-20-2025 13:41-0400 Systolic blood pressure 100 mm[Hg] Gilda Suppan [employer] CREWMEMBER.[employer]ER[employer] QUALITY TECHNICIAN Work Phone: [facility] 03-15-2025 08:31-0400 Body temperature 97.7 [degF] Dr. Cristian Adame MD Work Phone: [facility] 03-15-2025 08:31-0400 Diastolic blood pressure 69 mm[Hg] Dr. Cristian Adame MD Work Phone: [facility] 03-15-2025 08:31-0400 Heart rate 128 /min Dr. Cristian Adame MD Work Phone: 1(594)965-947346 [place] [address] 03-15-2025 08:31-0400 Respiratory rate 16 /min Dr. Cristian Adame MD Work Phone: 7(450)754-748946 [place] [address] 03-15-2025 08:31-0400 SaO2% (BldA) [Mass fraction] 96 % Dr. Cristian Adame MD Work Phone: 4(408)385-236946 [place] [address] 03-15-2025 08:31-0400 Systolic blood pressure 106 mm[Hg] Dr. Cristian Adame MD Work Phone: 9(346)332-323446 [place] [address] 03-15-2025 08:22-0400 Body mass index (BMI) [Ratio] 18.4 kg/m2 Dr. Cristian Adame MD Work Phone: 7(768)998-062746 [place] [address] 03-15-2025 08:22-0400 Body weight 56.[address] Cristian Adame MD Work Phone: 0(187)162-899646 [place] [address] 03-08-2025 09:01-0400 Body height 175.[address] Cristian Adame MD Work Phone: 1(991)289-803946 [place] [address] 03-08-2025 09:01-0400 Body mass index (BMI) [Ratio] 18.8 kg/m2 Dr. Cristian Adame MD Work Phone: 2(372)818-746946 [place] [address] 03-08-2025 09:01-0400 Body temperature 98.5 [degF] Dr. Cristian Adame MD Work Phone: 7(974)085-055646 [place] [address] 03-08-2025 09:01-0400 Body weight 58.[address] Cristian Adame MD Work Phone: 2(756)583-204846 [place] [address] 03-08-2025 09:01-0400 Diastolic blood pressure 77 mm[Hg] Dr. Cristian Adame MD Work Phone: 8(560)619-197046 [place] [address] 03-08-2025 09:01-0400 Heart rate 120 /min Dr. Cristian Adame MD Work Phone: 5(415)486-886946 [place] [address] 03-08-2025 09:01-0400 Respiratory rate 18 /min Dr. Cristian Adame MD Work Phone: 5(076)408-999946 [place] [address] 03-08-2025 09:01-0400 SaO2% (BldA) [Mass fraction] 94 % Dr. Cristian Adame MD Work Phone: 8(757)875-604546 [place] [address] 03-08-2025 09:01-0400 Systolic blood pressure 105 mm[Hg] Dr. Cristian Adame MD Work Phone: 6(304)487-235646 [place] [address] 03-07-2025 08:36-0400 Body height 175.[address] Cristian Adame MD Work Phone: 2(020)990-138446 [place] [address] 03-07-2025 08:36-0400 Body mass index (BMI) [Ratio] 18.8 kg/m2 Dr. Cristian Adame MD Work Phone: 6(062)692-435846 [place] [address] 03-07-2025 08:36-0400 Body temperature 97.4 [degF] Dr. Cristian Adame MD Work Phone: 7(125)027-487746 [place] [address] 03-07-2025 08:36-0400 Body weight 58.[address] Cristian Adame MD Work Phone: 4(657)603-934346 [place] [address] 03-07-2025 08:36-0400 Diastolic blood pressure 68 mm[Hg] Dr. Cristian Adame MD Work Phone: 0(677)534-378646 [place] [address] 03-07-2025 08:36-0400 Heart rate 124 /min Dr. Cristian Adame MD Work Phone: 1(882)789-930646 [place] [address] 03-07-2025 08:36-0400 Respiratory rate 18 /min Dr. Cristian Adame MD Work Phone: 0(390)744-209446 [place] [address] 03-07-2025 08:36-0400 SaO2% (BldA) [Mass fraction] 99 % Dr. Cristian Adame MD Work Phone: 5(455)405-002046 [place] [address] 03-07-2025 08:36-0400 Systolic blood pressure 98 mm[Hg] Dr. Cristian Adame MD Work Phone: 0(215)852-024546 [place] [address] 03-01-2025 14:52-0400 Diastolic blood pressure 71 mm[Hg] Dr. Cristian Adame MD Work Phone: 5(971)128-316446 [place] [address] 03-01-2025 14:52-0400 Heart rate 85 /min Dr. Cristian Adame MD Work Phone: 2(283)671-880946 [place] [address] 03-01-2025 14:52-0400 Respiratory rate 16 /min Dr. Cristian Adame MD Work Phone: 6(029)385-663346 [place] [address] 03-01-2025 14:52-0400 SaO2% (BldA) [Mass fraction] 99 % Dr. Cristian Adame MD Work Phone: 8(976)849-662146 [place] [address] 03-01-2025 14:52-0400 Systolic blood pressure 108 mm[Hg] Dr. Cristian Adame MD Work Phone: 3(093)408-462346 [place] [address] 03-01-2025 08:31-0400 Body height 175.[address] Cristian Adaem MD Work Phone: 9(041)040-938846 [place] [address] 03-01-2025 08:31-0400 Body mass index (BMI) [Ratio] 19.4 kg/m2 Dr. Cristian Adame MD Work Phone: 1(549)295-652946 [place] [address] 03-01-2025 08:31-0400 Body temperature 98.4 [degF] Dr. Cristian Adame MD Work Phone: 7(649)370-701546 [place] [address] 03-01-2025 08:31-0400 Body weight 59.[address] Cristian Adame MD Work Phone: 5(130)094-006846 [place] [address] 03-01-2025 08:31-0400 Diastolic blood pressure 70 mm[Hg] Dr. Cristian Adame MD Work Phone: 4(356)024-568746 [place] [address] 03-01-2025 08:31-0400 Heart rate 111 /min Dr. Cristian Adame MD Work Phone: 4(609)930-304846 [place] [address] 03-01-2025 08:31-0400 Respiratory rate 18 /min Dr. Cristian Adame MD Work Phone: 7(944)507-631546 [place] [address] 03-01-2025 08:31-0400 SaO2% (BldA) [Mass fraction] 94 % Dr. Cristian Adame MD Work Phone: 2(439)515-640046 [place] [address] 03-01-2025 08:31-0400 Systolic blood pressure 102 mm[Hg] Dr. Cristian Adame MD Work Phone: 7(664)927-085146 [place] [address] 02-20-2025 11:50-0400 Body temperature 98.3 [degF] Dr. Cristian Adame MD Work Phone: 8(845)186-689046 [place] [address] 02-20-2025 11:50-0400 Diastolic blood pressure 70 mm[Hg] Dr. Cristian Adame MD Work Phone: 8(678)096-334846 [place] [address] 02-20-2025 11:50-0400 Heart rate 101 /min Dr. Cristian Adame MD Work Phone: 4(011)019-613846 [place] [address] 02-20-2025 11:50-0400 Respiratory rate 16 /min Dr. Cristian Adame MD Work Phone: 3(914)915-958346 [place] [address] 02-20-2025 11:50-0400 SaO2% (BldA) [Mass fraction] 95 % Dr. Cristian Adame MD Work Phone: 4(306)967-535646 [place] [address] 02-20-2025 11:50-0400 Systolic blood pressure 94 mm[Hg] Dr. Cristian Adame MD Work Phone: 4(178)410-023646 [place] [address] 02-20-2025 09:22-0400 Body height 175.[address] Cristian Adame MD Work Phone: 5(340)214-822446 [place] [address] 02-20-2025 09:22-0400 Body mass index (BMI) [Ratio] 19.8 kg/m2 Dr. Cristian Adame MD Work Phone: 1(296)268-717646 [place] [address] 02-20-2025 09:22-0400 Body weight [address] Cristian Adame MD Work Phone: 7(427)388-102346 [place] [address] 02-15-2025 14:11-0400 Body height 175.[address] Cristian Adame MD Work Phone: 8(927)068-220746 [place] [address] 02-15-2025 14:11-0400 Body mass index (BMI) [Ratio] 20.3 kg/m2 Dr. Cristian Adame MD Work Phone: 0(566)931-851227 [place] [address] 02-15-2025 14:11-0400 Body temperature 97.2 [degF] Dr. Cristian Adame MD Work Phone: 0(523)586-327546 [place] [address] 02-15-2025 14:11-0400 Body weight 62.[address] Cristian Adame MD Work Phone: 2(435)695-843446 [place] [address] 02-15-2025 14:11-0400 Diastolic blood pressure 66 mm[Hg] Dr. Cristian Adame MD Work Phone: 8(171)801-087046 [place] [address] 02-15-2025 14:11-0400 Heart rate 112 /min Dr. Cristian Adame MD Work Phone: 7(759)213-672046 [place] [address] 02-15-2025 14:11-0400 Respiratory rate 18 /min Dr. Cristian Adame MD Work Phone: 7(128)187-552146 [place] [address] 02-15-2025 14:11-0400 SaO2% (BldA) [Mass fraction] 92 % Dr. Cristian Adame MD Work Phone: 5(693)671-545746 [place] [address] 02-15-2025 14:11-0400 Systolic blood pressure 98 mm[Hg] Dr. Cristian Adame MD Work Phone: 1(363)266-692946 [place] [address] 02-13-2025 16:44-0400 Body height 175.[address] Cristian Adame MD Work Phone: 4(927)135-727246 [place] [address] 02-13-2025 16:43-0400 Body mass index (BMI) [Ratio] 20.8 kg/m2 Dr. Cristian Adame MD Work Phone: 3(448)224-112246 [place] [address] 02-13-2025 16:43-0400 Body temperature 98.5 [degF] Dr. Cristian Adame MD Work Phone: 1(697)543-632346 [place] [address] 02-13-2025 16:43-0400 Body weight 63.[address] Cristian Adame MD Work Phone: 3(361)026-884346 [place] [address] 02-13-2025 16:43-0400 Diastolic blood pressure 78 mm[Hg] Dr. Cristian Adame MD Work Phone: 4(007)705-628646 [place] [address] 02-13-2025 16:43-0400 Heart rate 111 /min Dr. Cristian Adame MD Work Phone: 0(760)285-195646 [place] [address] 02-13-2025 16:43-0400 Respiratory rate 18 /min Dr. Cristian Adame MD Work Phone: 3(263)983-455246 [place] [address] 02-13-2025 16:43-0400 SaO2% (BldA) [Mass fraction] 94 % Dr. Cristian Adame MD Work Phone: 3(517)118-561146 [place] [address] 02-13-2025 16:43-0400 Systolic blood pressure 112 mm[Hg] Dr. Cristian Adame MD Work Phone: 3(460)310-073546 [place] [address] 02-12-2025 14:31-0400 Body height 175.[address] Cristian Adame MD Work Phone: 4(865)665-371946 [place] [address] 02-12-2025 14:31-0400 Body mass index (BMI) [Ratio] 20.8 kg/m2 Dr. Cristian Adame MD Work Phone: 4(284)925-286046 [place] [address] 02-12-2025 14:31-0400 Body weight 64.[address] Cristian Adame MD Work Phone: 6(079)934-087346 [place] [address] 02-12-2025 14:23-0400 Body temperature 98 [degF] Dr. Cristian Adame MD Work Phone: 6(533)465-170546 [place] [address] 02-12-2025 14:23-0400 Diastolic blood pressure 73 mm[Hg] Dr. Cristian Adame MD Work Phone: 7(665)636-403046 [place] [address] 02-12-2025 14:23-0400 Heart rate 118 /min Dr. Cristian Adame MD Work Phone: 4(157)666-501246 [place] [address] 02-12-2025 14:23-0400 Respiratory rate 18 /min Dr. Cristian Adame MD Work Phone: 1(548)111-789646 [place] [address] 02-12-2025 14:23-0400 SaO2% (BldA) [Mass fraction] 95 % Dr. Cristian Adame MD Work Phone: [facility] 02-12-2025 14:23-0400 Systolic blood pressure 107 mm[Hg] Dr. Cristian Adame MD Work Phone: [facility] 01-30-2025 12:44-0400 Body mass index (BMI) [Ratio] 20.09 kg/m2 Gilda Suppan [employer] CREWMEMBER.[employer]ER[employer] QUALITY TECHNICIAN Work Phone: [facility] 01-30-2025 12:44-0400 Body temperature 98.49 [degF] Gilda Suppan [employer] CREWMEMBER.[employer] QUALITY TECHNICIAN Work Phone: [facility] 01-30-2025 12:44-0400 Body weight 63.5 kg Gilda Suppan [employer] CREWMEMBER.[employer]ER[employer] QUALITY TECHNICIAN Work Phone: [facility] 01-30-2025 12:44-0400 Diastolic blood pressure 58 mm[Hg] Gilda Suppan [employer] CREWMEMBER.[employer]ER[employer] QUALITY TECHNICIAN Work Phone: [facility] 01-30-2025 12:44-0400 Heart rate 113 /min Gilda Suppan [employer] CREWMEMBER.[employer]ER[employer] QUALITY TECHNICIAN Work Phone: [facility] 01-30-2025 12:44-0400 SaO2% (BldA) [Mass fraction] 95 % Gilda Suppan [employer] CREWMEMBER.[employer]IBER[employer] QUALITY TECHNICIAN Work Phone: [facility] 01-30-2025 12:44-0400 Systolic blood pressure 100 mm[Hg] Gilda Suppan [employer] CREWMEMBER.[employer]ER[employer] QUALITY TECHNICIAN Work Phone: [facility] 01-18-2025 08:13-0400 Body height 175.[address] Cristian Adame MD Work Phone: [facility] 01-18-2025 08:13-0400 Body mass index (BMI) [Ratio] 21.7 kg/m2 Dr. Cristian Adame MD Work Phone: [facility] 01-18-2025 08:13-0400 Body temperature 97.6 [degF] Dr. Cristian Adame MD Work Phone: [facility] 01-18-2025 08:13-0400 Body weight 66.[address] Cristian Adame MD Work Phone: 2(483)041-658046 [place] [address] 01-18-2025 08:13-0400 Diastolic blood pressure 71 mm[Hg] Dr. Cristian Adame MD Work Phone: 0(082)940-897646 [place] [address] 01-18-2025 08:13-0400 Heart rate 112 /min Dr. Cristian Adame MD Work Phone: 4(869)337-803446 [place] [address] 01-18-2025 08:13-0400 Respiratory rate 16 /min Dr. Cristian Adame MD Work Phone: 7(522)544-082446 [place] [address] 01-18-2025 08:13-0400 SaO2% (BldA) [Mass fraction] 95 % Dr. Cristian Adame MD Work Phone: 8(399)139-793446 [place] [address] 01-18-2025 08:13-0400 Systolic blood pressure 105 mm[Hg] Dr. Cristian Adame MD Work Phone: 5(259)924-483246 [place] [address] 01-04-2025 14:49-0400 Diastolic blood pressure 81 mm[Hg] Dr. Cristian Adame MD Work Phone: 5(310)259-157546 [place] [address] 01-04-2025 14:49-0400 Heart rate 98 /min Dr. Cristian Adame MD Work Phone: 5(732)519-947346 [place] [address] 01-04-2025 14:49-0400 Respiratory rate 27 /min Dr. Cristian Adame MD Work Phone: 2(274)876-097246 [place] [address] 01-04-2025 14:49-0400 SaO2% (BldA) [Mass fraction] 95 % Dr. Cristian Adame MD Work Phone: 4(705)793-044946 [place] [address] 01-04-2025 14:49-0400 Systolic blood pressure 110 mm[Hg] Dr. Cristian Adame MD Work Phone: 7(994)540-592746 [place] [address] 01-04-2025 09:20-0400 Body height 175.[address] Cristian Adame MD Work Phone: 3(527)817-142546 [place] [address] 01-04-2025 09:20-0400 Body mass index (BMI) [Ratio] 23.6 kg/m2 Dr. Cristian Adame MD Work Phone: [facility] 01-04-2025 09:20-0400 Body temperature 98.8 [degF] Dr. Cristian Adame MD Work Phone: [facility] 01-04-2025 09:20-0400 Body weight 72.[address] Cristian Adame MD Work Phone: [facility] 12-15-2024 14:31-0400 Body mass index (BMI) [Ratio] 22.96 kg/m2 Cristian Adame MD Work Phone: [facility] 12-15-2024 14:31-0400 Body weight 72.58 kg Cristian Adame MD Work Phone: [facility] 12-15-2024 14:31-0400 Diastolic blood pressure 62 mm[Hg] Cristian Adame MD Work Phone: [facility] 12-15-2024 14:31-0400 Heart rate 111 /min Cristian Adame MD Work Phone: [facility] 12-15-2024 14:31-0400 SaO2% (BldA) [Mass fraction] 97 % Cristian Adame MD Work Phone: [facility] 12-15-2024 14:31-0400 Systolic blood pressure 102 mm[Hg] Cristian Adame MD Work Phone: [facility] 11-22-2024 10:43-0400 Body height 177.8 cm Cristian Adame MD Work Phone: [facility] 11-22-2024 10:43-0400 Body mass index (BMI) [Ratio] 23.68 kg/m2 Cristian Adame MD Work Phone: [facility] 11-22-2024 10:43-0400 Body weight 74.84 kg Cristian Adame MD Work Phone: [facility] 11-22-2024 10:43-0400 Diastolic blood pressure 86 mm[Hg] Cristian Adame MD Work Phone: [facility] 05-14-2025 10:43-0400 Heart rate 100 /min Cristian Adame MD Work Phone: [facility] 11-22-2024 10:43-0400 SaO2% (BldA) [Mass fraction] 96 % Cristian Adame MD Work Phone: [facility] 11-22-2024 10:43-0400 Systolic blood pressure 108 mm[Hg] Cristian Adame MD Work Phone: [facility] 11-14-2024 08:53-0400 Body height 175.[address] Cristian Adame MD Work Phone: [facility] 11-14-2024 08:53-0400 Body mass index (BMI) [Ratio] 24 kg/m2 Dr. Cristian Adame MD Work Phone: 1(314)859-463346 [place] [address] 11-14-2024 08:53-0400 Body temperature 98.2 [degF] Dr. Cristian Adame MD Work Phone: 8(568)598-351827 [place] [address] 11-14-2024 08:53-0400 Body weight 73.[address] Cristian Adame MD Work Phone: 4(530)764-654246 [place] [address] 11-14-2024 08:53-0400 Diastolic blood pressure 84 mm[Hg] Dr. Cristian Adame MD Work Phone: [facility] 11-14-2024 08:53-0400 Heart rate 88 /min Dr. Cristian Adame MD Work Phone: 0(827)699-149527 [place] [address] 11-14-2024 08:53-0400 Respiratory rate 18 /min Dr. Cristian Adame MD Work Phone: 1(001)144-218727 [place] [address] 11-14-2024 08:53-0400 SaO2% (BldA) [Mass fraction] 97 % Dr. Cristian Adame MD Work Phone: 2(472)779-134227 [place] [address] 11-14-2024 08:53-0400 Systolic blood pressure 125 mm[Hg] Dr. Cristian Adame MD Work Phone: 4(656)146-346546 [place] [address] 11-12-2024 11:48-0400 Body temperature 97.8 [degF] Dr. Cristian Adame MD Work Phone: [facility] 11-12-2024 11:48-0400 Diastolic blood pressure 74 mm[Hg] Dr. Cristian Adame MD Work Phone: [facility] 11-12-2024 11:48-0400 Heart rate 79 /min Dr. Cristian Adame MD Work Phone: 8(208)068-472046 [place] [address] 11-12-2024 11:48-0400 Respiratory rate 15 /min Dr. Cristian Adame MD Work Phone: 3(663)605-489627 [place] [address] 11-12-2024 11:48-0400 SaO2% (BldA) [Mass fraction] 98 % Dr. Cristian Adame MD Work Phone: 6(038)283-809927 [place] [address] 11-12-2024 11:48-0400 Systolic blood pressure 124 mm[Hg] Dr. Cristian Adame MD Work Phone: 3(278)207-294946 [place] [address] 11-12-2024 08:03-0400 Body mass index (BMI) [Ratio] 25.1 kg/m2 Dr. Cristian Adame MD Work Phone: 3(729)588-131927 [place] [address] 11-12-2024 08:03-0400 Body weight 77.[address] Cristian Adame MD Work Phone: [facility] 02-14-2024 14:36-0400 Body mass index (BMI) [Ratio] 25.25 kg/m2 Cristian Adame MD Work Phone: [facility] 02-14-2024 14:36-0400 Body weight 79.83 kg Cristian Adame MD Work Phone: [facility] 02-14-2024 14:36-0400 Diastolic blood pressure 92 mm[Hg] Cristian Adame MD Work Phone: [facility] 02-14-2024 14:36-0400 Heart rate 101 /min Cristian Adame MD Work Phone: [facility] 02-14-2024 14:36-0400 SaO2% (BldA) [Mass fraction] 95 % Cristian Adame MD Work Phone: [facility] 02-14-2024 14:36-0400 Systolic blood pressure 122 mm[Hg] Cristian Adame MD Work Phone: [facility] 11-01-2023 10:27-0400 Body mass index (BMI) [Ratio] 25.54 kg/m2 Gilda Suppan [employer] CREWMEMBER.CONVENTION PLANNER Work Phone: [facility] 11-01-2023 10:27-0400 Body weight 80.74 kg Gilda Suppan [employer] CREWMEMBER.CONVENTION PLANNER Work Phone: [facility] 11-01-2023 10:27-0400 Diastolic blood pressure 80 mm[Hg] Gilda Suppan [employer] CREWMEMBER.CONVENTION PLANNER Work Phone: [facility] 11-01-2023 10:27-0400 Heart rate 77 /min Gilda Suppan [employer] CREWMEMBER.CONVENTION PLANNER Work Phone: [facility] 11-01-2023 10:27-0400 Respiratory rate 18 /min Gilda Suppan [employer] CREWMEMBER.CONVENTION PLANNER Work Phone: [facility] 11-01-2023 10:27-0400 SaO2% (BldA) [Mass fraction] 97 % Gilda Suppan [employer] CREWMEMBER.CONVENTION PLANNER Work Phone: [facility] 11-01-2023 10:27-0400 Systolic blood pressure 138 mm[Hg] Gilda Suppan [employer] CREWMEMBER.CONVENTION PLANNER Work Phone: [facility] 12-30-2021 16:22-0400 Body weight 84.82 kg Cristian Adame MD Work Phone: [facility] 12-30-2021 16:22-0400 Diastolic blood pressure 82 mm[Hg] Cristian Adame MD Work Phone: [facility] 12-30-2021 16:22-0400 Heart rate 110 /min Cristian Adame MD Work Phone: [facility] 12-30-2021 16:22-0400 Respiratory rate 16 /min Cristian Adame MD Work Phone: [facility] 12-30-2021 16:22-0400 SaO2% (BldA) [Mass fraction] 97 % Cristian Adame MD Work Phone: [facility] 12-30-2021 16:22-0400 Systolic blood pressure 120 mm[Hg] Cristian Adame MD Work Phone: [facility] 12-02-2016 15:07-0400 BMI (Body Mass Index) 22.59 kg/m2 Hernan Vincent MD [facility] Work Phone: 12-02-2016 15:07-0400 Body Temperature 98.1 [degF] Hernan Vincent MD [facility] Work Phone: 12-02-2016 15:07-0400 BP Diastolic 76 mm[Hg] Hernan Vincent MD [facility] Work Phone: 12-02-2016 15:07-0400 BP Systolic 112 mm[Hg] Hernan Vincent MD [facility] Work Phone: 12-02-2016 15:07-0400 Height 175.26 cm Hernan Vincent MD [facility] Work Phone: 12-02-2016 15:07-0400 Pulse (Heart Rate) 61 /min Hernan Vincent MD [facility] Work Phone: 12-02-2016 15:07-0400 Pulse Oximetry 98 % Hernan Vincent MD [facility] Work Phone: 12-02-2016 15:07-0400 Respiratory Rate 16 /min Hernan Vincent MD [facility] Work Phone: 12-02-2016 15:07-0400 Weight 69.4 kg Hernan Vincent MD [facility] Work Phone: Encounters Encounter Date Encounter Type Care Provider Facility Start: 03-21-2025 Evaluation and manag ement of inpatient Dr. 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 Regino Burleson MD -[facility] Start: 03-08-[address] Regino Burleson MD -[facility] Start: 03-08-2025 End: 03-08-[address] Regino Burleson MD -[facility] Work Phone: Start: 03-08-2025 End: 03-08-[address] Cristian Adame MD Work Phone: [facility] Start: 03-07-2025 End: 03-07-2025 Patient encounter procedure Tayler Cardenas NP-C -[facility] Work Phone: Start: 03-07-2025 End: 03-07-[address] Cristian Adame MD Work Phone: [facility] Start: 03-01-[address] Regino Burleson MD -[facility] Start: 03-01-2025 End: 03-01-2025 Patient encounter procedure Yelena Glalegos NP-[place] -[facility] Work Phone: Start: 03-01-2025 End: 03-01-[address] Cristian Adame MD Work Phone: [facility] Comment on above: Refill Request Start: 02-20-2025 Non-patient / Non-visit Dr. Maris Vincent MD -[facility] Start: 02-20-2025 End: 02-20-2025 Admission to same day surgery center Dr. Hernan Vincent MD [facility] Start: 02-20-2025 End: 02-20-[address] Cristian Adame MD Work Phone: [facility] Start: 02-16-2025 End: 02-17-2025 Refill Gilda A Kyle BARRIENTOS Work Phone: [facility] Comment on above: Refill Request Start: 02-15-2025 End: 02-15-[address] Hernan Vincent MD -[facility] Work Phone: Start: 02-15-2025 End: 02-15-[address] Cristian Adame MD Work Phone: -[facility] Start: 02-13-2025 End: 02-13-2025 Patient encounter procedure Yelena Gallegos [facility] Work Phone: Start: 02-13-2025 End: 02-13-[address] Cristian Adame MD Work Phone: -[facility] Start: 02-13-[address] Regino Burleson MD -[facility] Start: 02-12-2025 End: 02-12-[address] Regino Burleson MD -[facility] Work Phone: Start: 02-12-2025 End: 02-12-[address] Cristian Adame MD Work Phone: -[facility] Start: 02-10-2025 End: 02-10-2025 Refill Cristian Adame MD Work Phone: [facility] Comment on above: Refill Request Start: 02-06-2025 End: 02-06-2025 Patient encounter procedure Tayler Cardenas LOOM OPERATOR APPRENTICE-C -[facility] Start: 02-06-2025 End: 02-06-2025 Refill Cristian Adame MD Work Phone: [facility] Comment on above: Refill Request Start: 02-06-2025 End: 02-06-2025 ambulatory Tayler Cardenas NP Facility:[facility] Start: 02-01-2025 End: 02-05-2025 Follow-up encounter Gilda Noonan APRN.FIBERGLASS QUALITY TECHNICIAN Work Phone: [facility] Start: 02-01-2025 End: 02-01-2025 ambulatory [facility] Facility:[facility] Start: 01-30-2025 End: 01-30-2025 Telephone encounter Gilda Noonan APRN.FIBERGLASS QUALITY TECHNICIAN Work Phone: [facility] Comment on above: Refill Request Start: 01-30-2025 End: 01-30-2025 Office outpatient visit 25 minutes Gilda Noonan APRN.FIBERGLASS QUALITY TECHNICIAN Work Phone: [facility] Comment on above: Dysuria (Primary Dx) ; Controlled type 2 diabetes mellitus without complication, with long-term current use of insulin (HCC); Acute constipation; Malignant neoplasm of lower lobe of lung, unspecified laterality (HCC) Start: 01-30-2025 End: 01-30-2025 ambulatory [facility] Facility:[facility] Start: 01-25-2025 End: 01-25-2025 Refill Cristian Adame MD Work Phone: [facility] Comment on above: Refill Request Start: 01-22-2025 End: 01-22-2025 Refill Cristian Adame MD Work Phone: [facility] Comment on above: Refill Request Start: 01-18-2025 End: 01-18-2025 Patient encounter procedure Tayler Cardenas LOOM OPERATOR APPRENTICE-C -[facility] Work Phone: Start: 01-18-2025 End: 01-18-[address] Cristian Adame MD Work Phone: -[facility] Start: 01-16-2025 End: 01-16-2025 Refill Cristian Adame MD Work Phone: [facility] Comment on above: Refill Request Start: 01-04-2025 End: 01-04-[address] Denny Moffett DO -[facility] Work Phone: Start: 01-04-2025 End: 01-04-2025 Refill Gilda Noonan APRN.CNP Work Phone: [facility] Comment on above: Refill Request Medication Problem Start: 01-04-2025 End: 01-04-2025 ambulatory [facility] Facility:[facility] Start: 12-27-2024 End: 12-27-2024 Telephone encounter Cristian Adame MD Work Phone: [facility] Comment on above: Patient Question Start: 12-21-2024 End: 12-21-2024 Telephone encounter Cristian Adame MD Work Phone: [facility] Comment on above: Patient Question Start: 12-20-2024 End: 12-20-2024 Refill Cristian Adame MD Work Phone: [facility] Comment on above: Refill Request Start: 12-19-2024 End: 12-19-2024 Telephone encounter Cristian Adame MD Work Phone: [facility] Comment on above: Results Start: 12-18-2024 End: 12-18-2024 ambulatory [facility] Facility:[facility] Start: 12-18-2024 End: 12-18-2024 Telephone encounter Cristian Adame MD Work Phone: [facility] Comment on above: Results Start: 12-15-2024 End: 12-15-2024 Subsequent hospital visit by physician X[facility] Work Phone: Radiology Comment on above: Acute constipation [ K59.00] Start: 12-15-2024 End: 12-15-2024 Patient encounter procedure Cristian Adame MD Work Phone: [facility] Comment on above: Hilar lymphadenopath y (Primary Dx); Medication monitoring encounter; Lymphadenopathy, abdominal; Lung nodules; Chest wall pain; Tobacco abuse; Gross hematuria; Acute constipation; Night sweats Start: 12-15-2024 End: 12-15-2024 ambulatory [facility] Facility:[facility] Start: 11-28-2024 End: 11-28-2024 Refill Cristian Adame MD Work Phone: [facility] [place] Comment on above: Refill Request Start: 11-23-2024 End: 11-23-2024 Telephone encounter Cristian Adame MD Work Phone: Pulmonology [facility] Comment on above: Results Start: 11-22-2024 End: 11-22-2024 ambulatory CRISTIAN ADAME Facility:[facility] Start: 11-22-2024 End: 11-22-2024 Patient encounter procedure Cristian Adame MD Work Phone: [facility] [place] Comment on above: Lung nodules (Primar y Dx); Controlled type 2 diabetes mellitus without complication, without long-term current use of insulin (HCC); Hyperlipidemia, mixed; Tobacco abuse; Lymphadenopathy, abdominal; Hilar lymphadenopathy Start: 11-22-2024 End: 11-22-2024 ambulatory CRISTIAN ADAME Facility:[facility] Start: 11-14-2024 End: 11-14-[address] Cristian Adame MD Work Phone: [facility] Work Phone: Start: 11-14-2024 End: 11-14-[address] Denny Moffett DO -Laboratory Work Phone: Start: 11-14-2024 End: 11-14-[address] Denny Moffett DO -[facility] Work Phone: Start: 11-14-2024 End: 11-14-2024 ambulatory Denny Moffett Facility:[facility] Start: 11-14-2024 End: 11-14-2024 ambulatory Denny Moffett Facility:[facility] Start: 11-12-2024 End: 11-12-2024 Emergency department patient visit Dr. Dionicio Grimes DO -Emergency Department Work Phone: Start: 11-09-2024 End: 11-09-2024 ambulatory Cristian Adame MD Work Phone: [facility] [place] Comment on above: Chest Pain Start: 11-09-2024 End: 11-09-2024 Telephone encounter Cristian Adame MD Work Phone: [facility] [place] Comment on above: Chest Pain Start: 10-04-2024 End: 10-04-2024 Refill Cristian Adame MD Work Phone: [facility] [place] Comment on above: Refill Request Start: 02-16-2024 Telephone encounter Cristian Adame MD Work Phone: [facility] [place] Comment on above: Results Start: 02-14-2024 End: 02-14-2024 Patient encounter procedure Cristian Adame MD Work Phone: [facility] [place] Comment on above: Controlled type 2 di abetes mellitus without complication, without long-term current use of insulin (HCC) (Primary Dx); Hyperlipidemia, mixed; Tobacco abuse; Screening for prostate cancer; Encounter for screening examination for other mental health and behavioral disorders Start: 02-08-2024 Telephone encounter Cristian Adame MD Work Phone: [facility] [place] Comment on above: Appointment Start: 11-29-2023 Telephone encounter Gilda Noonan APRN.CONVENTION PLANNER Work Phone: [facility] [place] Comment on above: Medication Problem Start: 11-01-2023 Telephone encounter Gilda Noonan APRN.CONVENTION PLANNER Work Phone: [facility] [place] Comment on above: Results Start: 11-01-2023 End: 11-01-2023 Periodic preventive med est patient 40-64yrs Gilda Noonan APRN.CONVENTION PLANNER Work Phone: [facility] [place] Comment on above: Screening for colon cancer (Primary Dx); Hiatal hernia; Screening for diabetes mellitus; Screening for lipid disorders; Chronic pain of both knees; Tobacco abuse; Acute pharyngitis due to other specified organisms; Allergic contact dermatitis due to other agents Start: 10-27-2023 Telephone encounter Cristian Adame MD Work Phone: [facility] [place] Comment on above: Opened In Error Start: 10-08-2022 Refill Cristian Adame MD Work Phone: [facility] [place] Comment on above: Refill Request Start: 12-30-2021 End: 12-30-2021 Patient encounter procedure Cristian Adame MD Work Phone: [facility] Comment on above: Paresthesia (Primary Dx); Screening for colon cancer Procedures Date Procedure Procedure Detail Performing Clinician Start: 03-21-2025 Urnls dip stick/tablet reagent auto microscopy Dr. Cristian Adame MD Work Phone: Start: 03-21-[address] Cristian Adame MD Work Phone: Start: 03-21-2025 Computed tomography of abdomen and pelvis with intravenous contrast Dr. Cristian Adame MD Work Phone: Start: 03-01-2025 Osmolality measurement, serum Dr. Cristian Adame MD Work Phone: Start: 03-01-[address] Cristian Adame MD Work Phone: Start: 02-20-2025 Plain chest X-ray Dr. Critsian Adame MD Work Phone: Start: 02-20-2025 Fluoroscopic [...] Lipid 1996 panel - Serum or Plasma Gildaalan Noonan [employer] CREWMEMBER.CONVENTION PLANNER Work Phone: Start: 01-15-2021 Lipid 1996 panel - Serum or Plasma Cristian Adame MD Work Phone: H/O: surgery History of surge ry on arm Dr. Cristian Adame MD Work Phone: Plan of Treatment Date Care Activity Detail Author Start: 02-13-2029 Lipid panel Lipid Screening [facility] Start: 10-31-2028 Lipid panel Lipid Screening [facility] Start: 02-13-2027 Diabetes Screening Diabetes Screenin g [facility] Start: 10-31-2026 Diabetes Screening Diabetes Screenin g [facility] Start: 03-20-2026 Annual PCP Team Supervisor [employer] starr Disease Visit Annual PCP Team Chronic Disease Visit [facility] Start: 02-16-2026 Annual PCP Team Supervisor [employer] starr Disease Visit Annual PCP Team Chronic Disease Visit [facility] Start: 01-30-2026 Annual PCP Team Supervisor [employer] starr Disease Visit Annual PCP Team Chronic Disease Visit [facility] Start: 01-15-2026 Lipid panel Lipid Screening [facility] Start: 01-15-2026 LIPID SCREEN LIPID SCREEN [facility] Start: 12-15-2025 Annual PCP Team Supervisor [employer] starr Disease Visit Annual PCP Team Chronic Disease Visit [facility] Start: 11-22-2025 Annual PCP Team Supervisor [employer] starr Disease Visit Annual PCP Team Chronic Disease Visit [facility] Start: 05-25-2025 Hemoglobin A1c measurement HbA1C [facility] Start: 04-12-2025 End: 04-12-2025 ambulatory 04/12/2025 9:40 AM EDT [facility]ly [facility] [address] [place] [address] Cristian Adame MD [address] [place] [address] 8 week folllow up for pain medication [facility] Comment on above: 8 week folllow up fo r pain medication Start: 03-23-2025 [facility] Start: 03-22-2025 Serum inorganic phos phate measurement [facility] Start: 03-22-2025 Thyroid stimulating hormone measurement [facility] Start: 03-22-2025 Application of intermittent pneumatic compression device [facility] Start: 03-22-2025 Aspiration precautions [facility] Start: 03-22-2025 Assessment of risk o f venous thromboembolism [facility] Start: 03-22-2025 Care regimes management [facility] Start: 03-22-2025 Incentive spirometry [facility] Start: 03-22-2025 Insertion of cathete r into peripheral vein [facility] Start: 03-22-2025 Measuring intake and output [facility] Start: 03-22-2025 Notification of physician [facility] Start: 03-22-2025 Oxygen therapy [facility] Start: 03-22-2025 Palliative care [facility] Start: 03-22-2025 Providing care accor ding to standard [facility] Start: 03-22-2025 Provision of activit y privileges [facility] Start: 03-22-2025 Referral to service [facility] Start: 03-22-2025 Verification routine [facility] Start: 03-22-2025 Admission procedure [facility] Start: 03-22-2025 T4 free measurement [facility] Start: 03-22-2025 Thyroid stimulating hormone measurement [facility] Start: 03-22-2025 End: 03-22-2025 [facility] Start: 03-20-2025 End: 03-20-2025 Patient encounter procedure 03/20/2025 1:40 PM EDT Office Visit [facility] [place] [address] [place] [address] Gilda Noonan APRN.FIBERGLASS QUALITY TECHNICIAN [address] [place] [address] Sore throat. See TE 03/19 [facility] Comment on above: Sore throat. See TE 03/19 Start: 03-15-2025 Venous catheter care management [facility] Start: 03-15-2025 Patient referral to dietitian [facility] Start: 03-12-2025 Influenza vaccination [facility] Start: 03-08-2025 [facility] Start: 03-01-2025 [facility] Start: 02-26-2025 End: 02-26-2025 Patient encounter procedure 02/26/2025 3:40 PM EDT Office Visit [facility] [address] [place] [address] Cristian Adame MD [address] [place], [place] [address] 3 month follow up [facility] Comment on above: 3 month follow up Start: 02-20-2025 Anesthesia access ce ntral venous circulation ANESTH VASCULAR ACCESS [facility] Start: 02-20-2025 Insj tunneled ctr va d w/subq port age 3 yr/> INSERT TUNNELED CV CATH [facility] Start: 02-20-2025 Patient discharge [facility] Start: 02-13-2025 Anxiety Screening Anxiety Screening [facility] Start: 02-13-2025 Hepatitis B surface antibody level LDL Cholesterol [facility] Start: 02-12-2025 CBC W Auto Different ial panel - Blood [facility] Start: 02-12-2025 Comprehensive metabo lic 2000 panel - Serum or Plasma [facility] Start: 02-12-2025 Lactate dehydrogenas e measurement [facility] Start: 02-12-2025 Magnesium measurement [facility] Start: 02-12-2025 Serum inorganic phos phate measurement [facility] Start: 02-12-2025 [facility] Start: 01-30-2025 End: 05-01-2025 Urinalysis complete panel - Urine URINALYSIS (WITH MICROSCOPIC) WITH CULTURE IF INDICATED Lab Routine Dysuria Expected: 01/30/2025, Expires: 05/01/2025 [facility] Work Phone: Comment on above: Expected: 01/30/2025 , Expires: 05/01/2025 Start: 01-24-2025 End: 01-24-2025 Patient encounter procedure 01/24/2025 4:20 PM EDT Office Visit [facility] [place] [address] [place] [address] Cristian Adame MD [address] [place] [address] 6 week follow up [facility] [place] Comment on above: 6 week follow up Start: 01-18-2025 End: 04-19-2025 CBC W Auto Differential panel - Blood COMPLETE BLOOD COUNT AND DIFFERENTIAL Lab Routine Anemia, unspecified type Expected: 01/18/2025, Expires: 04/19/2025 [facility] Comment on above: Expected: 01/18/2025 , Expires: 04/19/2025 Start: 01-18-2025 End: 04-19-2025 Ferritin [Mass/volume] in Serum or Plasma FERRITIN Lab Routine Anemia, unspecified type Expected: 01/18/2025, Expires: 04/19/2025 [facility] Comment on above: Expected: 01/18/2025 , Expires: 04/19/2025 Start: 01-18-2025 End: 04-19-2025 Folate [Mass/volume] in Serum or Plasma FOLATE, SERUM Lab Routine Anemia, unspecified type Folic acid deficiency Expected: 01/18/2025, Expires: 04/19/2025 [facility] Comment on above: Expected: 01/18/2025 , Expires: 04/19/2025 Start: 01-18-2025 End: 04-19-2025 Iron and Iron binding capacity panel - Serum or Plasma IRON AND TIBC Lab Routine Anemia, unspecified type Expected: 01/18/2025, Expires: 04/19/2025 [facility] Comment on above: Expected: 01/18/2025 , Expires: 04/19/2025 Start: 01-04-2025 CORE NDL BX LNG/MED PERQ CORE NDL BX LNG/MED PERQ [facility] Start: 01-04-2025 Catheterization of vein [facility] Start: 01-04-2025 Following clinical pathway protocol [facility] Start: 01-04-2025 Oxygen therapy [facility] Start: 01-04-2025 Patient discharge [facility] Start: 01-04-2025 Vital signs measurements [facility] Start: 12-18-2024 End: 12-18-2025 Cobalamin (Vitamin B12) [Mass/volume] in Serum or Plasma [facility] Work Phone: Comment on above: Expected: 12/18/2024 , Expires: 12/18/2025 Start: 12-18-2024 End: 12-18-2025 Folate [Mass/volume] in Serum or Plasma [facility] Comment on above: Expected: 12/18/2024 , Expires: 12/18/2025 Start: 12-15-2024 End: 03-16-2025 Bacteria identified in Urine by Culture BACTERIAL CULTURE, URINE Microbiology Routine Gross hematuria Expected: 12/15/2024, Expires: 03/16/2025 [facility] Comment on above: Expected: 12/15/2024 , Expires: 03/16/2025 Start: 12-15-2024 End: 03-16-2025 C reactive protein [Mass/volume] in Serum or Plasma [facility] Comment on above: Expected: 12/15/2024 , Expires: 03/16/2025 Start: 12-15-2024 End: 03-16-2025 CBC W Auto Differential panel - Blood [facility] Work Phone: Comment on above: Expected: 12/15/2024 , Expires: 03/16/2025 Start: 12-15-2024 End: 03-16-2025 Comprehensive metabolic 2000 panel - Serum or Plasma [facility] Comment on above: Expected: 12/15/2024 , Expires: 03/16/2025 Start: 12-15-2024 End: 03-16-2025 Erythrocyte sedimentation rate [facility] Comment on above: Expected: 12/15/2024 , Expires: 03/16/2025 Start: 12-15-2024 End: 03-16-2025 Lactate dehydrogenase [Enzymatic activity/volume] in Serum or Plasma [facility] Comment on above: Expected: 12/15/2024 , Expires: 03/16/2025 Start: 12-15-2024 End: 03-16-2025 Thyrotropin [Units/volume] in Serum or Plasma [facility] Comment on above: Expected: 12/15/2024 , Expires: 03/16/2025 Start: 12-15-2024 End: 03-16-2025 Urinalysis complete panel - Urine URINALYSIS, WITH MICROSCOPIC Lab Routine Gross hematuria Expected: 12/15/2024, Expires: 03/16/2025 [facility] Comment on above: Expected: 12/15/2024 , Expires: 03/16/2025 Start: 11-29-2024 End: 11-29-2024 Patient encounter procedure 11/29/2024 4:00 PM EDT Office Visit [facility] [place] [address] [place] [address] Cristian Adame MD [address] [place], [place] [id number] Wellness [facility] [place] Comment on above: Wellness Start: 11-22-2024 End: 02-21-2025 Hemoglobin A1c in Blood [facility] Work Phone: Comment on above: Expected: 11/22/2024 , Expires: 02/21/2025 Start: 11-12-2024 [facility] Start: 11-12-2024 Referral to oncologist [facility] Start: 11-01-2024 End: 11-01-2024 Patient encounter procedure 11/01/2024 10:40 AM EDT Office Visit [facility] [place] [address] [place] [address] [place], [place] [address] Cristian Adame MD [address] [facility], [place] [id number] [facility] [place] Comment on above: Physical Start: 10-31-2024 Covid-19 Vaccine () Covid-19 Vaccine () [facility] Comment on above: Postponed from 03/12 (Declined at this time) Start: 10-31-2024 Hepatitis B Vaccine (1 of 3 - 19+ 3-dose series) Hepatitis B Vaccine (1 of 3 - 19+ 3-dose series) [facility] Comment on above: Postponed from 07/29 (Declined at this time) Start: 10-31-2024 Pneumococcal vaccination Pneum ococcal Vaccine (1 of 2 - PCV) [facility] Comment on above: Postponed from 07/29 (Declined at this time) Start: 10-31-2024 Shingrix Vaccine (1 of 2) Welch grix Vaccine (1 of 2) [facility] Comment on above: Postponed from 07/29 (Declined at this time) Start: 10-31-2024 Urine microalbumin profile DTaP,Tdap,Td Vaccine (1 - Tdap) [facility] Comment on above: Postponed from 03/07 (Insurance Coverage) Start: 08-22-2024 End: 08-22-2024 Patient encounter procedure 08/22/2024 4:20 PM EST Office Visit Family [facility] [place] [address] [place] [id number] Cristian Adame MD [address] [place] [address] 6 month follow up [facility] [place] Comment on above: 6 month follow up Start: 08-16-2024 Hemoglobin A1c measurement HbA1C [facility] Start: 07-12-2024 Medicare Advantage A nnual Wellness Visit Medicare Advantage Annual Wellness Visit [facility] Start: 05-05-2024 End: 05-05-2024 Patient encounter procedure 05/05/2024 3:20 PM EDT Office Visit Family [facility] [place] [address] [place] [address] Cristian Adame MD [address] [place] [address] 3 month follow up [facility] [place] Comment on above: 3 month follow up Start: 05-03-2024 End: 08-02-2024 Hemoglobin A1c in Blood HEMOGLOBIN A1C Lab Routine Controlled type 2 diabetes mellitus without complication, without long-term current use of insulin (HCC) Expected: 05/03/2024 (Approximate), Expires: 08/02/2024 [facility] Work Phone: Comment on above: Expected: 05/03/2024 (Approximate), Expires: 08/02/2024 Start: 05-03-2024 End: 08-02-2024 Lipid 1996 panel - Serum or Plasma LIPID PANEL BASIC Lab Routine Hyperlipidemia, mixed Expected: 05/03/2024 (Approximate), Expires: 08/02/2024 [facility] Comment on above: Expected: 05/03/2024 (Approximate), Expires: 08/02/2024 Start: 05-01-2024 End: 05-01-2024 Patient encounter procedure 05/01/2024 12:40 PM EDT Office Visit [facility] [place] [address], [place] [id number] Gilda Noonan [employer] CREWMEMBER.CONVENTION PLANNER [address] [place], [place] [id number] 6 month f/u DM/Cholesterol [facility] Comment on above: 6 month f/u DM/Lucia sterol Start: 03-12-2024 Covid-19 Vaccine ( season) Covid-19 Vaccine ( season) [facility] Start: 03-12-[address] [facility] Start: 02-28-2024 End: 02-28-2024 Patient encounter procedure 02/28/2024 1:30 PM EDT Office Visit Pulmonary Medicine [address] [place], [place] [id number] Noemí Roblero APRN.[employer]ER[employer]ASS QUALITY TECHNICIAN [address] [place] [address] Tobacco abuse [Z72.0] Pulmonary Medicine Comment on above: Tobacco abuse [Z72.0 ] Start: 02-14-2024 End: 02-14-2024 Patient encounter procedure 02/14/2024 3:00 PM EDT Office Visit [facility] [place] [address], [place] [id number] Cristian Adame MD [address] [place], [place] [id number] Check up and review medications [facility] [place] Comment on above: Check up and review medications Start: 02-14-2024 End: 05-15-2024 Hemoglobin A1c in Blood [facility] Comment on above: Expected: 02/14/2024 , Expires: 05/15/2024 Start: 02-14-2024 End: 05-15-2024 Lipid 1996 panel - Serum or Plasma [facility] Comment on above: Expected: 02/14/2024 , Expires: 05/15/2024 Start: 02-14-2024 End: 05-15-2024 PSA/PROSTATE SPECIFIC ANTIGEN SCREENING [facility] Work Phone: Comment on above: Expected: 02/14/2024 , Expires: 05/15/2024 Start: 01-16-2024 DIABETES SCREEN DIABETES SCREEN [facility] Start: 01-16-2024 Diabetes Screening Diabetes Screenin g [facility] Start: 11-29-2023 End: 11-29-2023 Patient encounter procedure 11/29/2023 9:00 AM EDT Office Visit Pulmonary Medicine [address] [place] [address] Noemí Roblero APRN.[employer]ER[employer] QUALITY TECHNICIAN [address] [place] [address] Tobacco abuse [Z72.0] [facility] Comment on above: Tobacco abuse [Z72.0 ] Start: 11-01-2023 End: 01-31-2024 25-hydroxyvitamin D3 [Mass/volume] in Serum or Plasma [facility] Comment on above: Expected: 11/01/2023 , Expires: 01/31/2024 Start: 2023 Screening for malign ant neoplasm of lung Lung Cancer Screening [facility] Start: 2023 Shingrix Vaccine (1 of 2) Welch grix Vaccine (1 of 2) [facility] Start: 03-12-2023 Covid-19 Vaccine ( season) Covid-19 Vaccine ( season) [facility] Start: 12-30-2022 Diabetic foot examination Diabetic F oot Exam [facility] Start: 03-12-2022 Influenza vaccination [facility] Start: 02-10-2022 End: 04-12-2022 Thyrotropin [Units/volume] in Serum or Plasma TSH BLD Lab Routine Paresthesia Expected: 02/10/2022, Expires: 04/12/2022 [facility] Work Phone: Comment on above: Expected: 02/10/2022 , Expires: 04/12/2022 Start: 12-30-2021 End: 03-01-2022 CBC W Auto Differential panel - Blood CBC + DIFF Lab Routine Paresthesia Expected: 12/30/2021, Expires: 03/01/2022 [facility] Work Phone: Comment on above: Expected: 12/30/2021 , Expires: 03/01/2022 Start: 12-30-2021 End: 03-01-2022 Cobalamin (Vitamin B12) [Mass/volume] in Serum or Plasma VITAMIN B12 BLOOD Lab Routine Paresthesia Expected: 12/30/2021, Expires: 03/01/2022 [facility] Work Phone: Comment on above: Expected: 12/30/2021 , Expires: 03/01/2022 Start: 12-30-2021 End: 03-01-2022 Comprehensive metabolic 2000 panel - Serum or Plasma COMP METABOLIC PANEL Lab Routine Paresthesia Expected: 12/30/2021, Expires: 03/01/2022 [facility] Work Phone: Comment on above: Expected: 12/30/2021 , Expires: 03/01/2022 Start: 12-30-2021 End: 03-01-2022 Folate [Mass/volume] in Serum or Plasma FOLATE SERUM Lab Routine Paresthesia Expected: 12/30/2021, Expires: 03/01/2022 [facility] Work Phone: Comment on above: Expected: 12/30/2021 , Expires: 03/01/2022 Start: 12-30-2021 End: 03-01-2022 PROTEIN ELECTROPHORESIS SERUM W/INTERP PROTEIN ELECTROPHORESIS SERUM W/INTERP Lab Routine Paresthesia Expected: 12/30/2021, Expires: 03/01/2022 [facility] Work Phone: Comment on above: Expected: 12/30/2021 , Expires: 03/01/2022 Start: 2018 COLOGUARD (FIT-DNA) COLOGUARD (FIT-D NA) [facility] Start: 2018 Colonoscopy COLONOSCOPY [facility] Start: 2018 COLORECTAL CANCER SCREENING COLORECTAL CANCER SCREENING [facility] Start: [address]HY [facility] Start: 2018 FECAL OCCULT BLOOD FECAL OCCULT BLOO D [facility] Start: 2018 Screening for malign ant neoplasm of colon [facility] Start: 2018 SIGMOIDOSCOPY SIGMOIDOSCOPY [facility] Start: 12-15-2016 End: 12-15-2016 Appointment Appointment [facility] Work Phone: Start: 12-02-2016 End: 12-02-2016 Appointment Appointment [facility] [employer] [place] Work Phone: Start: 12-02-2016 End: 12-03-2016 Follow Up Appt 2 weeks Follow Up Appt 2 weeks [facility] [employer] [place] Work Phone: Start: 03-07-2008 Urine microalbumin profile [facility] Start: 1992 Hepatitis B Vaccine (1 of 3 - 19+ 3-dose series) Hepatitis B Vaccine (1 of 3 - 19+ 3-dose series) [facility] Start: 1992 Pneumococcal Vaccine : 50+ (1 of 2 - PCV) Pneumococcal Vaccine: 50+ (1 of 2 - PCV) [facility] Start: 1991 Anxiety Screening Anxiety Screening [facility] Start: 1983 Glaucoma screening Dilated Retinal E xam [facility] Start: 1983 Hepatitis B screening Urine Al bumin:Creatinine Ratio [facility] Start: 1979 PNEUMOCOCCAL (1 - PCV) PNEUMOCOCCAL (1 - PCV) [facility] Start: 1979 Pneumococcal vaccination Pneum ococcal Vaccine (1 of 2 - PCV) [facility] Start: 1978 COVID-19 VACCINE (#1) COVID-19 VACCI NE (#1) [facility] Start: 01-26-1974 COVID-19 VACCINE (#1) COVID-19 VACCI NE (#1) [facility] Start: 1973 HEPATITIS B (1 of 3 - 3-dose series) HEPATITIS B (1 of 3 - 3-dose series) [facility] Alanine aminotransfe rase [Enzymatic activity/volume] in Serum or Plasma [facility] Alanine aminotransfe rase [Enzymatic activity/volume] in Serum or Plasma [facility] Alanine aminotransfe rase [Enzymatic activity/volume] in Serum or Plasma [facility] Albumin [Mass/volume ] in Serum or Plasma [facility] Albumin [Mass/volume ] in Serum or Plasma [facility] Albumin [Mass/volume ] in Serum or Plasma [facility] Alkaline phosphatase [Enzymatic activity/volume] in Serum or Plasma [facility] Alkaline phosphatase [Enzymatic activity/volume] in Serum or Plasma [facility] Alkaline phosphatase [Enzymatic activity/volume] in Serum or Plasma [facility] Anion gap in Serum o r Plasma [facility] Anion gap in Serum o r Plasma [facility] Anion gap in Serum o r Plasma [facility] Bilirubin, total measurement [facility] Bilirubin, total measurement [facility] Bilirubin, total measurement [facility] BUN/Creatinine ratio [facility] BUN/Creatinine ratio [facility] BUN/Creatinine ratio [facility] Calcium [Mass/volume ] in Serum or Plasma [facility] Calcium [Mass/volume ] in Serum or Plasma [facility] Calcium [Mass/volume ] in Serum or Plasma [facility] Carbon dioxide, tota l [Moles/volume] in Central venous blood [facility] Carbon dioxide, tota l [Moles/volume] in Central venous blood [facility] Carbon dioxide, tota l [Moles/volume] in Central venous blood [facility] COLOGUARD COLOGUARD Lab Ro radha Screening for colon cancer Ordered: 11/01/2023 [facility] Work Phone: Comment on above: Ordered: 11/01/2023 Creatinine [Mass/vol ume] in Serum or Plasma [facility] Creatinine [Mass/vol ume] in Serum or Plasma [facility] Creatinine [Mass/vol ume] in Serum or Plasma [facility] End: 12-30-2022 EMG(NEURO/NI) EMG(NEURO/NI) EMG Routine Paresthesia 1 Occurrences starting 12/30/2021 until 12/30/2022 [facility] Work Phone: Comment on above: 1 Occurrences starti ng 12/30/2021 until 12/30/2022 Erythrocyte mean corpuscular volume determination [facility] Erythrocyte mean corpuscular volume determination [facility] Erythrocyte mean corpuscular volume determination [facility] Exercise tolerance test [facility] Glucose [Mass/volume ] in Serum or Plasma [facility] Glucose [Mass/volume ] in Serum or Plasma [facility] Glucose [Mass/volume ] in Serum or Plasma [facility] Hematocrit [Volume Fraction] of Blood [facility] Hematocrit [Volume Fraction] of Blood [facility] Hematocrit [Volume Fraction] of Blood [facility] Hemoglobin [Mass/vol ume] in Blood [facility] Hemoglobin [Mass/vol ume] in Blood [facility] Hemoglobin [Mass/vol ume] in Blood [facility] Hemoglobin.gastroint letiin alRoseannalower [Presence] in Stool by Immunoassay IMMUNOCHEMICAL FECAL OCCULT BLOOD TEST Lab Routine Anemia, unspecified type Ordered: 12/19/2024 [facility] Work Phone: Comment on above: Ordered: 12/19/2024 Leukocytes [#/volume ] in Blood [facility] Leukocytes [#/volume ] in Blood [facility] Leukocytes [#/volume ] in Blood [facility] Magnesium measurement [facility] Mean corpuscular hemoglobin concentration determination [facility] Mean corpuscular hemoglobin concentration determination [facility] Mean corpuscular hemoglobin concentration determination [facility] Mean corpuscular hemoglobin determination [facility] Mean corpuscular hemoglobin determination [facility] Mean corpuscular hemoglobin determination [facility] Measurement of renal function [facility] Measurement of renal function [facility] Measurement of renal function [facility] Neutrophil count [facility] Neutrophil count [facility] Neutrophil count [facility] Neutrophil percent differential count [facility] Neutrophil percent differential count [facility] Neutrophil percent differential count [facility] Patient Education [facility] Work Phone: Patient referral [facility] Work Phone: Platelets [#/volume] in Blood [facility] Platelets [#/volume] in Blood [facility] Platelets [#/volume] in Blood [facility] Positron emission tomography with computed tomography [facility] Potassium measurement [facility] Potassium measurement [facility] Potassium measurement [facility] Red blood cell count [facility] Red blood cell count [facility] Red blood cell count [facility] Red cell distributio n width determination [facility] Red cell distributio n width determination [facility] Red cell distributio n width determination [facility] Serum chloride measurement [facility] Serum chloride measurement [facility] Serum chloride measurement [facility] Sodium measurement [facility] Sodium measurement [facility] Sodium measurement [facility] Total protein measurement [facility] Total protein measurement [facility] Total protein measurement [facility] TOXICOLOGY SCREEN, ROUTINE URINE TOXICOLOGY SCREEN, ROUTINE URINE Lab Routine Medication monitoring encounter 12/15/2024 3:10 PM EDT [facility] Urea nitrogen [Mass/volume] in Serum or Plasma [facility] Urea nitrogen [Mass/volume] in Serum or Plasma [facility] Urea nitrogen [Mass/volume] in Serum or Plasma [facility] Immunizations Immunization Date Immunization Notes Care Provider Anel briones 05-27-2018 influenza virus vacc ine, unspecified formulation Cristian Adame MD Work Phone: [facility] 03-06-2008 tetanus and diphther ia toxoids, adsorbed, preservative free, for adult use (2 Lf of tetanus toxoid and 2 Lf of diphtheria toxoid) Cristian Adame MD Work Phone: [facility] Payers Date Payer Category Payer Medicaid [id number] 2024 Unknown 2024 Self-pay 2014 Medicaid [id number] 2014 Medicare [id number] 2014 Medicare [facility] MEDICARE MYC ARE [facility] MEDICARE [id number] 2014-Present [phone] [address] [place] [address] Medicare [id number] 2014 Medicare (Managed Care) [employer] MEDICARE [id number] 2014 Unknown [id number] Medicare [id number] Unknown [id number] 462 Unknown [id number]. 462 Unknown [id number] [id number]. 462 Unknown [id number] [id number]. 462 Unknown [id number] 2.840.1.265767.3.579.2. 462 Unknown [id number] 2.840.1.721709.3.579.2. 462 Unknown [id number] [id number]. 462 Unknown [id number] 2.840.1.418186.3.579.2. 462 Unknown [id number] 2.16.840.1.623148.3.579.2. 462 Unknown [id number] 2.16.840.1.431270.3.579.2. 462 Unknown [id number] 2.16.840.1.237693.3.579.2. 462 Unknown [id number] [id number]. 462 Unknown [id number] [id number]. 462 Unknown [id number] [id number]. 462 Unknown [id number]. 462 Social History Date Type Detail Facility Start: 07-27-2011 End: 11-22-2024 Tobacco smoking status SCIS Smokes tobacco daily [facility] History of tobacco use Cigarette Smoker [facility] Start: 12-30-2021 End: 03-20-2025 Alcohol intake Current drinker of alcohol (finding) [facility] Start: 1975 Sex Assigned At Not on file [facility] Start: 07-27-2011 End: 06-08-2023 Cigarettes smoked current (pack per day) - Reported 1 [facility] Work Phone: Start: 07-27-2011 End: 11-22-2024 Tobacco use and exposure Smokeless tobacco non-user [facility] Start: 02-04-2022 End: 06-08-2023 Tobacco use panel [facility] Work Phone: Start: 06-12-2012 Adult Depression Screening Assessment 0 [facility] Work Phone: Start: 04-01-2019 Tobacco Use Tobacco Use [facility] Start: 1975 Sex Assigned At Male [facility] Start: 01-18-2025 End: 03-21-2025 Tobacco smoking status NHIS Ex-smoker (finding) [facility] Medical Equipment Procedure Code Equipment Code Equipment Origin al Text Equipment Identifier Dates Insertion, vascular access port ([id number]) Vascular port/catheter [id number] [facility] Start: 02-20-2025 Test blood sugar(s) once daily. Dx: DM type II. Insulin: No [id number] Start: 02-05-2025 Use with blood glucose test once daily [id number] Start: 02-05-2025 Goals Date Patient Goal Desired Activity /State Functional Status Date Assessment Result Facility 11-12-2014 Are you deaf, or do you have serious difficulty hearing No 11/12/2014 2:07 PM EDSepideh Ronquillo LPN [facility] 11-12-2014 Are you blind, or do you have serious difficulty seeing, even when wearing glasses No 11/12/2014 2:07 PM Sepideh Gray LPN [facility] 11-12-2014 Do you have serious difficulty walking or climbing stairs No 11/12/2014 2:07 PM Sepideh Gray LPN [facility] 11-12-2014 Do you have difficul ty dressing or bathing No 11/12/2014 2:07 PM Sepideh Gray LPN [facility] 11-12-2014 Because of a physica l, mental, or emotional condition, do you have difficulty doing errands alone such as visiting a physician's office or shopping No 11/12/2014 2:07 PM Sepideh Gray LPN [facility] Mental Status Date Assessment Result Facility 03-21-2025 Cognitive function Level Of Cons ciousness Awake;Alert;Appropriate;Fol lows Commands [facility] Work Phone: 02-20-2025 Cognitive function Voice/Name [facility] Work Phone: 01-04-2025 Cognitive function Awake;Alert;Appropriat e [facility] Work Phone: 11-12-2014 Because of a physica l, mental, or emotional condition, do you have serious difficulty concentrating, remembering, or making decisions No 11/12/2014 2:07 PM EDSepideh Ronquillo LPN [facility] Clinical Notes 05-08-2011 to 03-21-2025 Note Date & Type Note Facility 03-21-2025 Discharge summary [facility] 03-21-2025 Radiology Diagnostic study note [facility] Imaging Services [address] [place], [place] [address] Abdomen/Pelvis W IV Cont ONLY MR#: [id number] Acct: [id number] Name: HYUN ELIAS Rep #: [id number] : 1975 M 49 From: Panchito Chew MD PCP: Dr. Cristian Adame MD Status: REG E R Study:Abdomen/Pelvis W IV Cont ONLY Date of E xam: 03/21/25 Exam# [id number] Ordering Dr: Alexey Clifton DO PROCEDURE: ABDOMEN/PELVIS W IV CONT ONLY 03/21/2025 REASON FOR EXAM: ABDOMINAL PAIN TECHNIQUE: Procedure Code: [id number] Modality: CT Procedure: ABDOMEN/PELVIS W IV CONT ONLY Coronal and Sagittal reconstruction series were provided. One or more dose reduction techniques were used (e.g., Automated exposure control, adjustment of the mA and/or kV according to patient size, use of iterative reconstruction technique. COMPARISON: 11/12/2024. FINDINGS: Innumerable nodular lesions are noted throughout both lungs, increased in size and number since the previous study and compatible with metastatic lesions. There are nodular densities in the bilateral infrahilar regions, incompletely imaged and may represent enlarged lymph nodes. A nodular density adjacent to the distal esophagus likelyrepresents an enlarged inferior mediastinal lymph node. A large lobulated mass is once again seen in the epigastric region, measuring a proximally 4.0 by 4.1 x 4.7 cm, increased in size since the previous study and compatible with either a primary malignancy or a conglomeration of enlarged lymph nodes. Multiple enlarged lymph nodes are noted within the upper abdomen, predominantly in the pericaval and para-aortic regions, similar to the previous study. 2 lobulated low densities with hazy margins are noted within the right lobe of the liver, measuring 3.1 cm and 2.7 cm, increased in size and/or new since the previous study and concerning for metastatic lesions. A large amount of stool is present throughout the colon. No evidence of a bowelobstruction. No pelvic lymphadenopathy is clearly identified. No acute osseous abnormality. No suspicious lytic nor sclerotic osseous lesion. CT/Abdomen/Pelvis W IV Cont ONLY IMPRESSION: 1. Innumerable pulmonary metastatic lesions, increased in size and number sincethe previous study. 2. Nodular densities in the bilateral infrahilar regions may represent enlargedlymph nodes. 3. Inferior mediastinal lymphadenopathy, new since the previous study. 4. Large lobulated epigastric mass, increased in size since the previous study and compatible with either primary malignancy or a conglomeration of enlarged lymph nodes. 5. Upper abdominal lymphadenopathy, similar to the previous study. 6. Lobulated low densities within the right lobe of the liver, increased in size and/or new since the previous study and concerning for metastatic lesions. 7. Large amount of stool throughout the colon. Reading Location: [id number] CC: Dr. Lindsay Clifton DO; Dr. Cristian Adame MD ~ Nuisance Animal Damage Control Agent: Signed [facility] 03-21-2025 Discharge summary Note Date/Time March 21, 2025 11:27pm [facility] Medical Records Department [address] [place] [address] Emergency Department Summary 03/21/25 MR#: [id number] Acct: [id number] Name: HYUN ELIAS Rep #:[id number] : 1975 49 From: Lindsay Clifton DO PCP: Dr. Cristian Adame MD Status:REG E R Location: ED HPI History of Present Illness Chief Complaint: Weakness Detail of Chief Complaint: Weakness and concern for dehydration Informant: patient Narrative Narrative: Patient presents to the emergency department with complaint of generalized weakness and concern for dehydration. Patient states that he came in at the request of his oncologist. Currently being treated for stage IV lung cancer. Last chemotherapy was 6 days ago. Complains of difficulty swallowing. He has lost almost 50 pounds since November when he was diagnosed. Has not had a bowel movement in the week. Describes upper abdomen pain. Denies fever. Denies chest pain or shortness of breath. [facility] Medical History Constipation Encounter for antineoplastic chemotherapy and immunotherapy Hyponatremia Wears dentures Wears glasses Back pain Gastric reflux Former smoker History of stress test Cancer Encounter for education Home Medications ?Medication ?Instructions ?Recorded ?Last Taken ?Type folic acid 1 mg tablet 1 mg PO QDAY 01/18/25 Unknow n History metformin 500 mg tablet,extended 1,000 mg [...] mg PO Q8H PRN nausea and 03/01/25 Unknown Rx tablet vomiting #30 tabs oxycodone 5 mg tablet 5 - 10 mg PO Q6H PRN pain Unknown History polyethylene glycol 3350 17 4 g PO ONCE #510 grams Unknown Rx gram/dose oral powder (Miralax) sodium chloride 1,000 mg soluble 1,000 mg PO QDAY #30 tabs 03/01/25 Unknown Rx tablet Nebulizer machine #1 ea 03/07/25 Unknown Rx hydroxyzine pamoate 25 mg capsule 25 mg PO ONCE Unknown History ipratropium 0.5 mg-albuterol 3 mg 3 ml inhalation Q4H PRN SOB &/OR 03/07/25 Unknown Rx (2.5 mg base)/3 mL nebulization WHEEZING #180 mL soln naloxone 4 mg/actuation nasal spray intranasal 5 Unknown History Allergy/AdvReac Type Severity Reaction Status Date / Time sulfamethoxazole (From Allergy Unknown Verified 03/21/25 19:37 Bactrim) trimethoprim (From Bactrim) Allergy Unknown Verified 03/21/25 19:37 amoxicillin trihydrate (From AdvReac Nausea Verified 03/21/25 19:37 Augmentin) potassium clavulanate (From AdvReac Nausea Verified 03/21/25 19:37 Augmentin) Family History Mother Diabetes Cancer Father Diabetes Grandmother Cancer Surgical History Previous back surgery History of hernia surgery History of appendectomy History of surgery on arm Social History (Updated 03/21/25 @ 20:13 by Sepideh Holguin) household members: significant other Smoking Status: Former smoker quit date: 01/07/25 second hand exposure: Yes alcohol intake: never substance use type: does not use ROS ROS ED Review of Systems ROS Unobtainable: other Constitutional Constitutional ED: Reports lethargy; Denies chills, fever(s), sweats or weight loss Eyes Eyes: Denies blurry vision, change in vision or diplopia ENT ENT ED: Denies rhinorrhea or sore throat Cardiovascular Cardiovascular: Denies chest pain, orthopnea or racing heartbeat Respiratory/Chest Respiratory/Chest: Denies cough, dyspnea, dyspnea on exertion, orthopnea or sputum Gastrointestinal Gastrointestinal: Reports abdominal pain, constipation and nausea; Denies diarrhea or vomiting Genitourinary Genitourinary ED: Denies dysuria, hematuria or urinary frequency Musculoskeletal Musculoskeletal: Denies arthralgias, back pain, myalgias or neck pain Integumentary Denies abscess, Abrasions or rash Neurologic Neurologic: Denies headache(s) or weakness Psychiatric Psychiatric: Denies anxiety, depression or suicidal thoughts Endocrine Endocrinology: Denies polydipsia, polyphagia or polyuria Hematologic/Lymphatic Hematologic/Lymphatic: Denies easy bleeding, easy bruising or lymphadenopathy Allergic/Immunologic Allergic/Immunologic ED: Denies mouth swelling, tongue swelling or urticaria EXAM Physical Exam Const Vital Signs: 03/21/25 19:33 03/21/25 20:13 03/21/25 21:32 Temperature 98.5 F Temperature Source Oral Pulse Rate 138 H 90 Respiratory Rate 22 H Respiratory Effort Normal Non-Labored Respiratory Pattern Normal Blood Pressure 99/80 85/79 L Blood Pressure Mean 86 81 Pulse Ox 99 100 Oxygen Delivery Method Room Air 03/21/25 23:01 Temperature Temperature Source Pulse Rate 70 Respiratory Rate 18 Respiratory Effort Respiratory Pattern Blood Pressure 100/80 Blood Pressure Mean 86 Pulse Ox 99 Oxygen Delivery Method Positive well nourished and well developed General Appearance ED: well developed and NAD HEENT Reports TM's clear and moist mucous membranes normocephalic and atraumatic; Negative for trauma or tenderness Tympanic Membrane ED: Yes TM's clear Eyes PERRL and EOMs intact bilaterally General Eye ED: Negative for pale conjunctiva or scleral icterus Neck no lymphadenopathy, supple and no JVD General: Negative for tenderness Chest Wall inspection of chest normal and palpation of chest normal Chest: Negative for tenderness Resp normal respiratory effort and clear to auscultation bilaterally Effort and Inspection: Negative for respiratory distress or pain with movement Auscultation: Negative for rhonchi, wheezes or diminished lung sounds Cardio regular rate, regular rhythm, S1 normal heart sound, S2 normal heart sound and no murmurs Peripheral Pulses: pulses 2+ throughout GI normal to inspection, nondistended, normoactive bowel sounds, soft to palpation,non-distended and no masses GI Narrative: Mild diffuse tenderness in the epigastric region. There is no rebound, rigidity, or peritoneal signs. No mass palpated. Back/Spine no CVA tenderness and no thoracic nor lumbar tenderness Extremity normal to inspection General Extremety ED: Negative for edema General Extremity: Negative for edema Neuro oriented x3, CN's II-XII intact bilaterally, no sensory deficits noted and gait normal Sensorium / Orientation: awake, alert, oriented to person, oriented to place andoriented to time Motor Exam: strength 5/5 throughout and strength abnormal Psych mental status grossly normal Skin no rashes or lesions noted and no wounds MDM MDM MDM Narrative Medical decision making narrative: Patient presents to the emergency department with abdominal pain and difficulty swallowing and eating. Being treated for stage IV lung cancer. IV line established. CBC with differential and patient awake at 4.7 with hemoglobin 9.3and platelet count of 277. Chemistries unremarkable. LFTs unremarkable. He did have a slightly depressed sodium of 128. Urinalysis unremarkable. CT scan of the abdomen pelvis showed multiple lung nodules consistent with metastases. Patient had large lobulated epigastric mass which is increased in size from prior study and compatible with either primary malignancy or a conglomeration ofenlarged lymph nodes. Lobulated densities noted within the lobe of the liver. Large amount of stool throughout the colon. Results discussed with patient. Discussed with hospitalist to evaluate patient for admission. Initially hypotensive on arrival and blood pressure improved with normal saline. Patient with progressive metastatic lung cancer disease will have to receive input from his oncologist and may be worth discussing hospice and palliative measures. Lab Data Attestation: I reviewed the patient's lab results. Labs: Laboratory Results - last 24 hr 03/21/25 03/21/25 21:02 22:22 WBC 4.7 RBC 3.55 L Hgb 9.3 L Hct 28.6 L MCV 80.6 MCH 26.2 L MCHC 32.5 RDW Std Deviation 46.9 H RDW Coeff of Ted 16.3 H Plt Count 277 MPV 11.6 Immature Gran % (Auto) 1.100 H Neut % (Auto) 73.1 H Lymph % (Auto) 14.6 L [place] % (Auto) 10.2 H Eos % (Auto) 0.2 Baso % (Auto) 0.8 Absolute Neuts (auto) 3.5 Absolute Lymphs (auto) 0.69 L Nucleated RBC % 0 Sodium 128 L Potassium 4.8 Chloride 94 L Carbon Dioxide 20.9 L Anion Gap 13 BUN 9 Creatinine 0.87 Estim Creat Clear Calc 76.24 Est GFR (MDRD) Non-Af 105 BUN/Creatinine Ratio 10.9 Glucose 212 H Calcium 8.9 Total Bilirubin 0.70 AST 29 ALT 29 Alkaline Phosphatase 92 Total Protein 6.7 Albumin 2.8 L Globulin 3.9 Albumin/Globulin Ratio 0.7 L Lipase 13 Urine Color Yellow Urine Clarity Clear Urine pH 6.5 Ur Specific [place] 1.005 Urine Protein 30 H Urine Glucose (UA) Normal Urine Ketones Negative Urine Occult Blood 10 H Urine Nitrite Negative Urine Bilirubin Negative Urine Urobilinogen 1 H Ur Leukocyte Esterase Negative Urine RBC 0-5 SEEN Urine WBC 0-5 SEEN Ur Squamous Epith Cells 0-5 SEEN Urine Bacteria 0 SEEN Urine Mucus 0 SEEN Radiography Diagnostic Testing: Clinical Impression(s) from Imaging Studies Abdomen/Pelvis CT 03/21/25 20:33 IMPRESSION: 1. Innumerable pulmonary metastatic lesions, increased in size and number sincethe previous study. 2. Nodular densities in the bilateral infrahilar regions may represent enlargedlymph nodes. 3. Inferior mediastinal lymphadenopathy, new since the previous study. 4. Large lobulated epigastric mass, increased in size since the previous study and compatible with either primary malignancy or a conglomeration of enlarged lymph nodes. 5. Upper abdominal lymphadenopathy, similar to the previous study. 6. Lobulated low densities within the right lobe of the liver, increased in size and/or new since the previous study and concerning for metastatic lesions. 7. Large amount of stool throughout the colon. Reading Location: [facility] Discharge Plan Triage Chief Complaint: Weakness ED Provider: Lindsay Clifton Dx/Rx/DC Orders Clinical Impression: Metastatic primary lung cancer, Hypotension, Weakness Prescriptions: No Action folic acid 1 mg tablet 1 mg PO QDAY metformin 500 mg tablet extended release 24 hr 1,000 mg PO QDAY oxycodone 5 mg tablet 5 - 10 mg PO Q6H PRN (Reason: pain) ondansetron 8 mg tablet,disintegrating 8 mg PO Q8H PRN (Reason: nausea and vomiting) Qty: 30 2RF sodium chloride 1,000 mg tablet,soluble 1,000 mg PO QDAY Qty: 30 0RF polyethylene glycol 3350 [Miralax] 17 gram/dose powder 4 g PO ONCE Qty: 510 0RF lidocaine-prilocaine 2.5-2.5 % cream 1 applic topical ONCE PRN (Reason: port access) 30 Days Qty: 30 2RF dexamethasone 4 mg tablet 8 mg PO .COMPLEX Qty: 30 2RF Rx Instructions: 8 mg orally ONLY on days 2 & 3 of chemotherapy cycle hydroxyzine pamoate 25 mg capsule 25 mg PO ONCE naloxone 4 mg/actuation spray,non-aerosol intranasal Patient Comments: Use 1 spray in one nostril as needed for overdose. May repeat every 2 to 3 min in alternating nostrils until medical assistance is available ipratropium-albuterol 0.5 mg-3 mg(2.5 mg base)/3 mL solution for nebulization 3 ml inhalation Q4H PRN Qty: 180 6RF (DME) Nebulizer machine See Rx Instructions .ROUTE .MEDSUPPLY Qty: 1 0RF Rx Instructions: As directed Primary Care Provider: Cristian Adame Referrals: Cristian Adame MD [Primary Care Provider] - Print Language: Maldivian Disposition Disposition: Acute Care Hospital [facility] What to do if you have Problems For any increased pain, shortness of breath, bleeding, nausea or vomiting, chestpain, or any unexpected problems, contact your Primary Care Provider. Call [facility] ([phone]) or report to the closest Emergency Room. Call 911 if necessary. 03/21/25 0284 <Electronically signed by Lindsay Clifton DO> Cosigner Signature (if applicable): CC: Dr. Cristian Adame MD ~ Signed [facility] Work Phone: 1(582) 931-645109-10-2025 Telephone encounter Note* Telephone Encounter - Ghada Salazar MSW - 03/21/2025 9:25 AM EDT Sw and patient discussed home care waiver program through [facility] and Medicaid. Sw provided patient with home care waiver number [phone]. Patient notes that he will call and see about requesting home care waiver services. Sw will call patient back in a couple of weeks to see what patient learned from [place] [facility] and fdc services and supports. [facility]09-10-2025 Miscellaneous Notes* Telephone Encounter - Ghada Salazar MSW - 03/21/2025 9:25 AM EDT Sw and patient discussed home care waiver program through [facility] and Medicaid. Sw provided patient with home care waiver number [phone]. Patient notes that he will call and see about requesting home care waiver services. Sw will call patient back in a couple of weeks to see what patient learned from [place] [facility] and fdc services and supports. documented in this encounterMount [facility]el [facility] System09-09-2025 Instructions* Patient Instructions* Gilda Noonan APRN.CNP - 03/20/2025 2:02 PM EDT - Start the liquid form of amoxicillin 10 ml 3 x day for 10 days as prescribed for your throat infection. - Gargle with warm salt water several times a day to help ease throat discomfort. - billet worker to call you about home health aide documented in this encounterMount Carmel Health System09-09-2025 History of Present illness Narrative* Gilda Noonan APRN.CNP - 03/20/2025 1:46 PM EDT This is a 49 year [...] - ICD9: 162.9, ICD10: C34.90 Consult social services analyst for ? Home care if eligible - PRIMARY CARE SOCIAL WORK CONSULT Discussed treatment plan and patient voices understanding. Patient's questions answered appropriately. Medications and potential side effects were discussed and patient voices understanding. Return to the office as scheduled or as needed for worsening/no improvement. Gilda Noonan APRN.CNP [1] Social History Tobacco Use Smoking status: Every Day Current packs/day: 1.00 Average packs/day: 1 pack/day for 24.0 years (24.0 ttl pk-yrs) Types: Cigarettes Smokeless tobacco: Never Vaping Use Vaping status: Never Used Substance Use Topics Alcohol use: Yes Drug use: Yes Frequency: 2.0 times per week Comment: Fellows per patient documented in this encounterMount Carmel Health System09-08-2025 Telephone encounter Note * Telephone Encounter - Marshall Tran RN - 03/19/2025 8:08 AM EDT Significant other (Trudy) calls to request appointment [...] 140 pm per request. Marshall Tran RN [facility]09-08-2025 Miscellaneous Notes* Telephone Encounter - Marshall Tran RN - 03/19/2025 8:08 AM EDT Significant other (Trudy) calls to request appointment [...] request. Marshall Tran RN documented in this encounterMount Carmel Health System08-28-2025 Progress [facility] [address] [place] [address] OFFICE VISIT Date of Service: 03/08/25 0859 MR#: [id number] Acct: [id number] Name: HYUN ELIAS Rep #: [id number] : 1975 From: Regino Burleson MD Age/Sex: 49/M Location[place] [facility] Status: Signed HPI Subjective Date of Service [...] Had dizzines after D1 but now fine. [facility] Medical History Constipation Encounter for antineoplastic [...] Details Follow Up: 2 Weeks 03/08/25 0934 D> Date _ Regino Burleson MD Cosigner Signature: Date (if applicable) CC: Dr. Cristian Adame MD ~ [facility]08-28-2025 Progress note Author Regino Burleson [facility] Note Date/Time March 08, 2025 9: 34am [facility] [address] [address] OFFICE VISIT Date of Service: 03/08/25 0859 MR#: [id number] Acct: [id number] Name: HYUN ELIAS Rep #: [id number] : 1975 From: Reigno Burleson MD Age/Sex: 49/M [place] [facility] Status: Signed HPI Subjective Date of Service [...] Had dizzines after D1 but now fine. [facility] Medical History Constipation Encounter for antineoplastic [...] Regino Julian> Date _ Regino Burleson MD Cosign Signature: Date (if applicable) CC: Dr. Cristian Adame MD ~ [facility] Work Phone: 1(340) 592-923108-21-2025 Telephone encounter Note* Telephone Encounter - Anna [...] Anton LPN March 01, 2025 12:19 PM [facility]08-21-2025 Miscellaneous Notes* Telephone Encounter - Anna Anton [...] 01, 2025 12:19 PM documented in this encounterMount Carmel Health System08-12-2025 Consult note Author Ana Viramontes [facility] Note Date/Time February 20, 2025 10 :15am [facility] Medical Records Department [address] [place] [address] Pre-Anesthesia Evaluation 02/20/25 1007 MR#: [id number] Acct: [id number] Name: HYUN ELIAS Rep #:[id number] : 1975 49 From: Ana grace CRNA PCP: Dr. 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 Hx Hospitalization No 02/15/25 15:09 Any Problems [...] take am of surgery PONV PONV - motion picture equipment machinist: PONV - motion picture equipment machinist Female No 02/15/25 15:09 HX of Motion [...] 02/20/25 09:22 Respiratory Assessment Respiratory Assessment - motion picture equipment machinist: Respiratory Tract Infection Hx - motion picture equipment machinist Hx Respiratory Tract Infection No 02/15/25 15:09 STOP Sleep Apnea STOP Sleep Apnea - motion picture equipment machinist: STOP Sleep Apnea - motion picture equipment machinist Hx Hypertension No 02/15/25 15:09 Hx Sleep [...] Tobacco Use History Tobacco Use History - motion picture equipment machinist: Tobacco Use History - motion picture equipment machinist Tobacco Use Smoking Status Former smoker 02/15/25 15:09 Hx Tobacco Use Yes 02/15/25 15:09 Years Smoking Packs Smoked per Day Smoking Cessation Date was Yes - quit smoking within 15 02/15/25 15:09 within the last 15 years years Hx Smoking Cessation Date Hx Smoking Cessation Counseling Hematologic Medial History Hematologic Hx - motion picture equipment machinist: 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 Hx of Blood Transfusion No 02/15/25 15:09 [...] confused, unrespo /Reproduction History /Reproductive History - motion picture equipment machinist: /Reproductive Hx- motion picture equipment machinist Hx Now Gestational Age (in weeks): EDC: [...] CRNA Cosigner Signature: Date CC: ~ Signed [facility] Work Phone: 1(405) 635-208308-12-2025 History and physical note Author Hernan Vincent [facility] Note Date/Time February 20, 2025 10 :05am [facility] Medical Records Department [address] [place] [address] History & Physical Exam 02/20/25 1005 MR#: [id number] Acct: [id number] Name: HYUN ELIAS Rep #:[id number] : 1975 49 From: Hernan guerrero MD PCP: Dr. Cristian Adame MD Status:REG S DC Location: [place] [address] History and Physical Date of Admission: 02/20/25 [...] 4 mg PO Q8H PRN PRN Nausea 01/18/2502/02 History tablet metformin 500 mg tablet,extended 1,000 [...] willing to proceed. Hernan Vincent MD Pager: [facility] [address] [facility], [address] [place] [address] Office: I have examined the patient and the H&P has been reviewed. There are no clinicalchanges since date of exam. 02/20/25 1005 <Electronically signed by Hernan Vincent MD> Cosigner Signature (if applicable): CC: Dr. Hernan Vincent MD; Dr. Cristian Adame MD~ Signed [facility] Work Phone: 1(584) 394-724408-12-2025 Radiology Diagnostic study note [facility] Imaging Services [address] [place] [address] CXR for Line Placement MR#: [id number] Acct: [id number] Name: HYUN ELIAS Rep #: [id number] : 1975 M 49 From: Marlo Borden MD PCP: Dr. Cristian Adame MD Status: REG S DC Study:CXR for Line Placement Date of Exam: 02/20/25 Exam# [id number] Ordering Dr: Hernan Boyd MD PROCEDURE: CXR [...] the right port. No pneumothorax. Reading Location: [id number] CC: Dr. Hernan Vincent MD; Dr. Cristian Adame MD ~ Nuisance Animal Damage Control Agent: Signed [facility]08-12-2025 Consult note [facility] Medical Records Department [address] [place] [address] Anesthesia Postop Eval I 02/20/25 1135 MR#: [id number] Acct: [id number] Name: HYUN ELIAS Rep #:[id number] : 1975 49 From: Ana grace CRNA PCP: Dr. Cristian Adame MD Status:REG S DC Y Race: C Location: [place] [address] Anesthesia: Postop Eval I Current Vital Signs [...] Eval 1 completed: Yes 02/20/25 1136 ely INFORMATICA MDM ARCHITECT> Date _ Ana Viramontes INFORMATICA MDM ARCHITECT Cosigner Signature: Date CC: ~ Signed [facility]08-12-2025 Discharge summary [facility] Medical Records Department [address] [place] [address] Instructions for Home/Discharge Instructions 02/20/25 1131 MR#: [id number] Acct: [id number] Name: HYUN ELIAS Rep #:[id number] : 1975 49 From: Hernan guerrero MD [...] With: Hernan Vincent MD When: as needed [phone] Test Results: Test results from this visit will be discussed in further detail at your follow- up appointment, if applicable. Discharge Plan Admission Attending Provider: Hernan Vincent Primary Care Provider: Cristian Adame Instructions Print Language: Maldivian Discharge Orders/Prescriptions Prescriptions: No Action folic acid [...] can be placed): Home, Self Care 02/20/25 1132Acaleb Vincent MD CC: Dr. Cristian Adame MD ~ Signed [facility]08-12-2025 Procedure note [facility] Medical Records Department [address] [place] [address] Operative Report 02/20/25 1130 MR#: [id number] Acct: [id number] Name: HYUN ELIAS Rep #:[id number] : 1975 49 From: Hernan guerrero MD PCP: Dr. Cristian Adame MD Status:REG S DC Location: [place] [address] Operative Report (Standard) Operative Information Date of Procedure: 02/20/25 Pre-Operative Diagnosis: Need for vascular access for chemotherapy for lung cancer Post-Operative Diagnosis: Same Surgery/Procedure Performed: Ultrasound and fluoroscopy guided right chest port placement utilizingright IJ supervisor inspecting: No Type of Anesthesia: Local MAC RN Documented Start/Stop Times: Operation Date: 02/20/25 11:00 Case Time Into Pre-Op 02/20/25 09:13 Out of Pre-Op 02/20/25 10:53 Anesthesia Start 02/20/25 10:55 Into Room 02/20/25 10:55 Procedure Start 02/20/25 11:13 Procedure End 02/20/25 11:26 Procedure Start Time: 11:13 Procedure Stop Time: : Select all DRAINS/GRAFTS/IMPLANTS that apply: Implanted device Implanted device details: 8 [place] PowerPort Estimated Blood Loss: 5 Specimen collected: [...] Vincent MD; Dr. Cristian Adame MD~ Signed [facility]08-12-2025 Consult note [facility] Medical Records Department [address] [place] [address] Pre-Anesthesia Evaluation 02/20/25 1007 MR#: [id number] Acct: [id number] Name: HYUN ELIAS Rep #:[id number] : 1975 49 From: Ana grace CRNA PCP: Dr. 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: Anesthesia History - motion picture equipment machinist Hx Hospitalization No 02/15/25 15:09 Any Problems [...] take am of surgery PONV PONV - motion picture equipment machinist: PONV - motion picture equipment machinist Female No 02/15/25 15:09 HX of Motion [...] 02/20/25 09:22 Respiratory Assessment Respiratory Assessment - motion picture equipment machinist: Respiratory Tract Infection Hx - motion picture equipment machinist Hx Respiratory Tract Infection No 02/15/25 15:09 STOP Sleep Apnea STOP Sleep Apnea - motion picture equipment machinist: STOP Sleep Apnea - motion picture equipment machinist Hx Hypertension No 02/15/25 15:09 Hx Sleep [...] Tobacco Use History Tobacco Use History - motion picture equipment machinist: Tobacco Use History - motion picture equipment machinist Tobacco Use Smoking Status Former smoker 02/15/25 15:09 Hx Tobacco Use Yes 02/15/25 15:09 Years Smoking Packs Smoked per Day Smoking Cessation Date was Yes - quit smoking within 15 02/15/25 15:09 within the last 15 years years Hx Smoking Cessation Date Hx Smoking Cessation Counseling Hematologic Medial History Hematologic Hx - motion picture equipment machinist: 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 02/20/25 1015 ely INFORMATICA MDM ARCHITECT> Date _ Ana Viramontes CRNA Cosigner Signature: Date CC: ~ Signed [facility]08-12-2025 History and physical note [facility] Medical Records Department [address] [place] [address] History & Physical Exam 02/20/25 1005 MR#: [id number] Acct: [id number] Name: HYUN ELIAS Rep #:[id number] : 1975 49 From: Hernan guerrero MD PCP: Dr. Cristian Adame MD Status:[facility] Location: [place] [address] History and Physical Date of Admission: 02/20/25 [...] mg PO Q8H PRN PRN Nausea 01/18/25 0802/02 History tablet metformin 500 mg tablet,extended 1,000 [...] willing to proceed. Hernan Vincent MD Pager: [facility] [address] [facility], [address] [place] [address] Office: I have examined the patient and the H&P has been reviewed. There are no clinicalchanges since date of exam. 02/20/25 1005 Cosigner Signature (if applicable): CC: Dr. Hernan Vincent MD; Dr. Cristian Adame MD~ Signed [facility]08-12-2025 [facility] Medical Records Department [address] [place] [address] History Physical Exam 02/20/25 1005 MR#: [id number] Acct: [id number] Name: HYUN ELIAS Rep #: [id number] : 1975 49 From: Hernan Vincent MD PCP: Dr. Cristian Adame MD Status:[facility] Location: [place] [address] History and Physical Date of Admission: 02/20/25 [...] topical cream access 30 days #30 grams [facility] History Encounter for education Surgical History [...] is willing to proceed. (more content not included)...[facility]08-09-2025 Telephone encounter Note* Telephone Encounter - Emelia [...] Emelia Robertson February 17, 2025 10:35 AM [facility]08-09-2025 Miscellaneous Notes* Telephone Encounter - Emelia Riddle [...] 17, 2025 10:35 AM documented in this encounterMount Carmel Health System08-08-2025 NoteHNO ID: [id number] Author: CRISTIAN ADAME MD Service: ? Author [...] Yes Frequency: 2.0 times per week Comment: Fellows per patient Reviewed current medications, allergies, past [...] done Hepatitis B Va (more content not included)...[facility] 02-15-2025 Progress [facility] [address] [place] [address]. [address] [place] [address] OFFICE VISIT Date of Service: 02/15/25 MR#: [id number] Acct: [id number] Name: HYUN ELIAS Rep #: [id number] : 1975 Provider: Dr. Justino Vincent MD Age/Sex: 49/M Location: [facility] Status: Signed Intake Vital Signs [...] Cancer Father Diabetes Grandmother Cancer Social History (Reviewed 02/15/25 @ 14:11 by MIRANDA Ott Smoking Status: Former smoker quit date: 01/07/25 [...] willing to proceed. Hernan Vincent MD Pager: [facility] [address] [place] [address], [address] [place] [address] Office: Coding Level of Care Code Off vis,new,level 3 Diagnoses Encounter for adjustment and management of vascular access device Z45.2 02/15/25 1439 logan NELSON> Date _ Hernan Vincent MD Cosign Signature: Date (if applicable) CC: Dr. Regino Burleson MD; Dr. Cristian Adame MD ~ [facility]08-07-2025 Progress note Author Hernan Vincent [facility] Note Date/Time February 15, 2025 2:3 9pm [facility] [address] [place] [address] [address] [place] [address] OFFICE VISIT Date of Service: 02/15/25 MR#: [id number] Acct: [id number] Name: HYUN ELIAS Rep #: [id number] : 1975 Provider: Dr. Justino Vincent MD Age/Sex: 49/M Location: [facility] Status: Signed Intake Vital Signs [...] willing to proceed. Hernan Vincent MD Pager: [facility] [address] [place] [address], [address] [place] [address] Office: Coding Level of Care Code Off vis,new,level 3 Diagnoses Encounter for adjustment and management of vascular access device Z45.2 02/15/25 1439 <Electronically signed by Hernan ford MD> Date _ [facility] Signature: Date (if applicable) CC: Dr. Regino Burleson MD; Dr. Cristian Adame MD ~ [facility] Work Phone: 1(331) 922-390308-02-2025 Telephone encounter Note* Telephone Encounter - Marshall Tran RN - 02/10/2025 9:22 AM EDT Call placed to Trudy and notified with verbalized understanding. Appt is scheduled for 02/26/2025. Marshall Tran RN [facility]08-02-2025 Miscellaneous Notes* Telephone Encounter - Marshall Tran [...] request. Marshall Tran RN documented in this encounterMount Carmel Health System08-02-2025 Telephone encounter Note * Telephone Encounter - Cristian Adame MD - 02/10/2025 9:18 AM EDT Make sure has a follow up appt at some point. [facility]08-02-2025 Telephone encounter Note* Telephone Encounter - Marshall [...] Dr. Adame. Sending request. Marshall Tran RN [facility]2025 Telephone encounter Note* Telephone Encounter - Gilda Noonan APRN.CNP - 02/06/2025 8:08 AM EDT The following approved medication requests have been transmitted electronically. Requested Prescriptions Pending Prescriptions Disp Refills ondansetron orally disintegrating (ZOFRAN ODT) 4 mg disintegrating tablet 30 tablet 0 Sig: Take 1 tablet by mouth every 8 hours as needed for nausea/vomiting. Gilda Noonan APRN.CNP [facility]2025 Miscellaneous Notes* Telephone Encounter - Gilda Noonan [...] nausea/vomiting. Emelia Mcclendon RN documented in this encounterMount Carmel Health System2025 Telephone encounter Note * Telephone Encounter - [...] as needed for nausea/vomiting. Emelia Mcclendon RN [facility]07-28-2025 Telephone encounter Note* Telephone Encounter - Alexa Baca LPN - 02/05/2025 12:00 PM EDT Glucometer, test strips, and lancets sent to [facility]. [facility]07-28-2025 Miscellaneous Notes* Telephone Encounter - Alexa Baca LPN - 02/05/2025 12:00 PM EDT Glucometer, test strips, and lancets sent to drug [employer]. * Result Encounter Note - Gilda Noonan APRN.CNP - 02/05/2025 11:44 AM EDT Glucometer, test strips, and lancets sent to [employer]. * Telephone Encounter - Nupur Green MA - 02/05/2025 10:07 AM EDT Patient was made aware of the results. Patient verbalizes understanding. Asking for glucose monitor to be sent to [employer] Nupur Green Ma * Telephone Encounter - [...] Worsening anemia. Folate normal. documented in this encounterMount Carmel Health System07-28-2025 Progress note* Result Encounter Note - Gilda Noonan APRN.CNP - 02/05/2025 11:44 AM EDT Glucometer, test strips, and lancets sent to [employer] [facility]. [facility]07-28-2025 Telephone encounter Note* Telephone Encounter - Nupur Green MA - 02/05/2025 10:07 AM EDT Patient was made aware of the results. Patient verbalizes understanding. Asking for glucose monitor to be sent to [employer] Nupur Green Ma [facility]07-28-2025 Telephone encounter Note* Telephone Encounter - Nupur Green MA - 02/05/2025 10:06 AM EDT ----- Message from Gilda Noonan sent at 02/01/2025 5:05 PM EDT ----- Iron saturation is decreased but your iron stores are high. Worsening anemia. Folate normal. [facility]07-24-2025 Progress note* Result Encounter Note - Gilda Noonan APRN.CNP - 02/01/2025 5:05 PM EDT Iron saturation is decreased but your iron stores are high. Worsening anemia. Folate normal. [facility]07-22-2025 Telephone encounter Note* Telephone Encounter - Gilda Noonan APRN.CNP - 01/30/2025 2:14 PM EDT The following approved medication requests have been transmitted electronically. Requested Prescriptions Pending Prescriptions Disp Refills RABEprazole (ACIPHEX) 20 mg tablet 90 tablet 3 Sig: Take 1 tablet by mouth once daily. Gilda Noonan APRN.CNP [facility]07-22-2025 Miscellaneous Notes* Telephone Encounter - Gilda Noonan [...] 30, 2025 1:56 PM documented in this encounterMount Carmel Health System07-22-2025 Telephone encounter Note * Telephone Encounter - [...] Green MA January 30, 2025 1:56 PM [facility]07-22-2025 Instructions* Patient Instructions* Gilda Noonan APRN.CNP - [...] tea or soda. - Try a sugar-free [place] breakfast drink (or similar) one to two times a day to boost your calorie and protein intake. - See Dr. Adame 02/26/25 as scheduled documented in this encounterMount Carmel Health System07-22-2025 NoteHNO ID: [id number] Author: GILDA NOONAN APRN.[facility] Service: ? Author Type: Nurse Practitioner Type: [...] Yes Frequency: 2.0 times per week Comment: Fellows per patient REVIEW OF SYSTEMS Constitutional: (+) [...] normal gait, no invol (more content not included)...[facility]07-22-2025 History of Present illness Narrative* Gilda Noonan APRN.[facility] - 01/30/2025 12:51 PM EDT This [...] Yes Frequency: 2.0 times per week Comment: Fellows per patient REVIEW OF SYSTEMS Constitutional: (+) [...] kg (140 lb) SpO2 95% BMI 20.09 kg/m PHYSICAL EXAM: GENERAL: NAD, alert and [...] reported. - Recommended increasing caloric intake with [place] breakfast drink (sugar- free) once or twice daily. Discussed treatment plan and patient voices understanding. Patient's questions answered appropriately. Medications and potential side effects were discussed and patient voices understanding. Return to the office as scheduled or as needed for worsening/no improvement. 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 PET scan ordered for staging. 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 PET scan ordered for staging. He did [...] daily Zofran as needed documented in this encounterMount Carmel Health System07-17-2025 Telephone encounter Note * Telephone Encounter - Cristian Adame MD - 01/25/2025 9:48 AM EDT Now diagnosed with squamous cell cancer of lung with likely mets. [facility]07-17-2025 Miscellaneous Notes* Telephone Encounter - Cristian Adame [...] days. Emelia Mcclendon RN documented in this encounterMount Carmel Health System07-17-2025 Telephone encounter Note * Telephone Encounter - [...] up to 5 days. Emelia Mcclendon RN [facility]07-14-2025 Telephone encounter Note* Telephone Encounter - Cecily [...] Soler RN January 22, 2025 8:27 AM [facility]07-14-2025 Miscellaneous Notes* Telephone Encounter - Ceicly Soler RN - 01/22/2025 8:26 AM EDT [...] 22, 2025 8:27 AM documented in this encounterMount Carmel Health System07-10-2025 Evaluation note* Diagnosis Onset Date Resolution Status Admit Date Unintentional weight loss acute January 18, 2025 11:16am Nicotine abuse chronic January 18, 2025 11:16am 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 chronic Jan 11:16am 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 acute February 12, 2025 1:40pm NSCLC metastatic to bone chronic February 12, 2025 1:40pm NSCLC metastatic to liver chronic February 12, 2025 1:40pm 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 chronic Aug ust 2024 1:40pm Encounter for education acute A ugust 2024 4:10pm 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 acute February 13, 2025 4:10pm NSCLC metastatic to bone chronic February 13, 2025 4:10pm NSCLC metastatic to liver chronic February 13, 2025 4:10pm 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 chronic Aug ust 2024 4:10pm Encounter for adjustment and management of vascular access device acute February 15, 2025 1:59pm Encounter for antineoplastic chemotherapy and immunotherapy acute A ugust 2024 7:34am Hyponatremia acute March 01, 2025 7:34am 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 acute March 01 7:34am NSCLC metastatic to bone chronic March 01, 2025 7:34am NSCLC metastatic to liver chronic March 01, 2025 7:34am 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 chronic Aug ust 2024 7:34am Hypoxia acute March 07, 2 025 10:21am Shortness of breath acute Augus t 2024 10:21am COPD (chronic obstructive pulmonary disease) chronic March 07, 2025 10:21am Nicotine abuse chronic February 10:21am 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 chronic Aug ust 2024 10:21am Encounter for antineoplastic chemotherapy and immunotherapy acute A ugust 2024 7:49am 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 acute March 08 7:49am NSCLC metastatic to bone chronic March 08, 2025 7:49am NSCLC metastatic to liver chronic March 08, 2025 7:49am 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 chronic Aug ust 2024 7:49am Adult failure to thrive acute S eptember 2024 11:45pm Hyponatremia acute March 212024 11:45pm Hypotension acute March 11:45pm Metastatic primary lung cancer acute March 21, 2025 11:45pm 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 acute March 21, 2025 11:45pm Weakness acute March 11:45pm Weight loss, non-intentional acute Lucila 10th, 2025 11:45pm NSCLC metastatic to bone chronic March 21, 2025 11:45pm NSCLC metastatic to liver chronic March 21, 2025 11:45pm 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 chronic Sep 2024 11:45pm [facility] Work Phone: 1(256) 553-330807-08-2025 Telephone encounter Note* Telephone Encounter - Cristian Adame MD - 01/16/2025 8:57 AM EDT Oarrs done. Taking for possible metastatic malignancy. Can we check in records at [facility] and see if biopsy done in last week or so? [facility]07-08-2025 Miscellaneous Notes* Telephone Encounter - Cristian Adame MD - 01/16/2025 8:57 AM EDT Oarrs done. Taking for possible metastatic malignancy. Can we check in records at [facility] and see if biopsy done in last [...] 16, 2025 8:12 AM documented in this encounterMount Carmel Health System07-08-2025 Telephone encounter Note * Telephone Encounter - [...] Anton LPN January 16, 2025 8:12 AM [facility]06-26-2025 Telephone encounter Note* Telephone Encounter - Gilda Noonan APRN.CNP - 01/04/2025 5:24 PM EDT done [facility]06-26-2025 Miscellaneous Notes* Telephone Encounter - Gilda Noonan APRN.CNP - 01/04/2025 5:24 PM EDT done * Telephone Encounter - Petty Stack RN - 01/04/2025 4:36 PM EDT Shanon from [facility] calls and is asking if provider can send over script for oxyir tablets instead of capsules? Please review and advise, Petty Stack RN documented in this encounterMount Carmel Health System06-26-2025 Telephone encounter Note * Telephone Encounter - Petty Stack RN - 01/04/2025 4:36 PM EDT Shanon from [facility] calls and is asking if provider can send over script for oxyir tablets instead of capsules? Please review and advise, Petty Stack RN [facility]06-26-2025 Radiology Diagnostic study note [facility] Imaging Services [address] [place], [place] [address] Biopsy/Inj or Needle Placement MR#: [id number] Acct: [id number] Name: HYUN ELIAS Rep #: [id number] : 1975 M 49 From: Edy Lynch MD PCP: Dr. Cristian Adaem MD Status: REG C LI Study:Biopsy/Inj or Needle Placement Date of Exam: 01/04/25 Exam# [id number] Ordering Dr: Benson DO EXAM: CT-guided core [...] posterior nodule. Pathology results pending. Reading Location: [place] [address] CC: Dr. Denny Moffett DO; Dr. Cristian Adame MD ~ Nuisance Animal Damage Control Agent: Signed [facility]06-26-2025 Radiology Diagnostic study note [facility] [address] [place], [place] [id number] Chest Insp/Exp 2 View MR#: [id number] Acct: [id number] Name: HYUN ELIAS Rep #: [id number] : 1975 M 49 From: Edy Lynch MD PCP: Dr. Cristian Adame MD Status: REG C SARATH Study:Chest Insp/Exp 2 View Date of Exam: 01/04/25 Exam# [id number] Ordering Dr: Theodore Lynch MD PROCEDURE: CHEST [...] stable, without evidence of cardiomegaly Reading Location: [place] [address] CC: Dr. Theodore Lynch MD; Dr. Cristian Adame MD ~ Nuisance Animal Damage Control Agent: Signed [facility]06-26-2025 Radiology Diagnostic study note [facility] [address] [place], [place] [address] Chest Insp/Exp 2 View MR#: [id number] Acct: [id number] Name: HYUN ELIAS Rep #: [id number] : 1975 M 49 From: Byron Ordoñez MD PCP: Dr. Cristian Adame MD Status: REG C SARATH Study:Chest Insp/Exp 2 View Date of Exam: 01/04/25 Exam# [id number] Ordering Dr: Theodore Lynch MD PROCEDURE: CHEST INSP/EXP 2 VIEW 01/04/2025 REASON FOR EXAM: POST LUNG BIOPSY TECHNIQUE: CHEST INSP/EXP 2 VIEW COMPARISON: None FINDINGS: No evidence of pneumothorax on the immediate post right lung biopsy radiographs. Multiple bilateral pulmonary nodules. RAD/Chest Insp/Exp 2 View IMPRESSION: No evidence of pneumothorax. Reading Location: [id number] CC: Dr. Theodore Lynch MD; Dr. Cristian Adame MD ~ Nuisance Animal Damage Control Agent: Signed [facility]06-26-2025 Telephone encounter Note* Telephone Encounter - Gilda [...] for up to 5 days. Authorizing Provider: GILDA NOONAN naloxone 4 mg/actuation nasal spray (NARCAN) 2 each 1 Sig: Use 1 spray in one nostril as needed for overdose. May repeat every 2 to 3 min in alternating nostrils until medical assistance is available Authorizing Provider: GILDA NOONAN APRN.CNP [facility]06-26-2025 Miscellaneous Notes* Telephone Encounter - Gilda Noonan [...] for up to 5 days. Authorizing Provider: GILDA NOONAN naloxone 4 mg/actuation nasal spray (NARCAN) [...] 04, 2025 8:18 AM documented in this encounterMount Carmel Health System06-26-2025 Telephone encounter Note * Telephone Encounter - [...] Anton LPN January 04, 2025 8:18 AM [facility]06-18-2025 Telephone encounter Note* Telephone Encounter - Sepideh Pires LPN - 12/27/2024 11:31 AM EDT Pt notified pf Dr Adame's message. Pt verbalizes understanding. Pt had just wanted to give PCP a head up. Pt will wait and do procedure at [facility]. Sepideh Pires LPN [facility]06-18-2025 Miscellaneous Notes* Telephone Encounter - Sepideh Pires LPN - 12/27/2024 11:31 AM EDT Pt notified pf Dr Adame's message. Pt verbalizes understanding. Pt had just wanted to give PCP a head up. Pt will wait and do procedure at [facility]. Sepideh Pires LPN * Telephone Encounter - Cristian Adame MD - 12/27/2024 8:47 AM EDT Likely would need to be done at one of the hospitals and doubt it could get set up any sooner than next week. He would have to travel plus see a new grassroots organizer. Would actually take much longer * Telephone Encounter - Monserrat Alcantara RN - 12/27/2024 8:15 AM EDT Pt phoned to let pcp know he was suppose to have his biopsy done today at [facility]. [facility] cancelled and re-scheduled for next Thurs- telling pt the part they need for the CT is stuck in [place]. Pt asking pcp is there any way he can have the biopsy done at the [facility]? Please advise pt. [phone] documented in this encounterMount Carmel Health System06-18-2025 Telephone encounter Note * Telephone Encounter - Cristian Adame MD - 12/27/2024 8:47 AM EDT Likely would need to be done at one of the hospitals and doubt it could get set up any sooner than next week. He would have to travel plus see a new grassroots organizer. Would actually take much longer [facility]06-18-2025 Telephone encounter Note* Telephone Encounter - Monserrat Alcantara RN - 12/27/2024 8:15 AM EDT Pt phoned to let pcp know he was suppose to have his biopsy done today at [facility]. [facility] cancelled and re-scheduled for next Thurs- telling pt the part they need for the CT is stuck in [place]. Pt asking pcp is there any way he can have the biopsy done at the [facility] Specialty building? Please advise pt. [phone] [facility]06-12-2025 Telephone encounter Note* Telephone Encounter - Nupur Green MA - 12/21/2024 4:57 PM EDT Trudy notified. Nupur Green MA December 21, 2024 4:57 PM [facility]06-12-2025 Miscellaneous Notes* Telephone Encounter - Nupur Green [...] relax patient before procedure? Pharmacy is [facility] [place]. Please review and advise, Petty Stack RN documented in this encounterMount Carmel Health System06-12-2025 Telephone encounter Note * Telephone Encounter - Cristian Adame MD - 12/21/2024 12:55 PM EDT I can give him a dose of vistaril. Will need someone to drive him. [facility]06-12-2025 Telephone encounter Note* Telephone Encounter - Petty Stack RN - 12/21/2024 12:50 PM EDT Patient's significant other calls and states that patient is supposed to have have biopsy done 12/27. Patient was told to call PCP to see if something can be ordered to relax patient before procedure? Pharmacy is [facility] [place]. Please review and advise, Petty Stack RN [facility]06-11-2025 Telephone encounter Note* Telephone Encounter - Cristian Adame MD - 12/20/2024 11:53 AM EDT Rx sent [facility]06-11-2025 Miscellaneous Notes* Telephone Encounter - Cristian Adame [...] Rx's have been sent to the pharmacy. [phone] * Telephone Encounter - Petty Stack RN [...] 20, 2024 8:27 AM documented in this encounterMount Carmel Health System06-11-2025 Telephone encounter Note * Telephone Encounter - Monserrat Alcantara RN - 12/20/2024 9:33 AM EDT Trudy- significant other- phoned asking pcp to also refill zofran. Reports pt only has 1 pill leftof each of the pended medications. Trudy asking pcp office to phone pt to let him know when Rx's have been sent to the pharmacy. [phone] [facility]06-11-2025 Telephone encounter Note* Telephone Encounter - Petty [...] Stack RN December 20, 2024 8:27 AM [facility]06-10-2025 Telephone encounter Note* Telephone Encounter - Nupur Green MA - 12/19/2024 11:38 AM EDT Mychart message sent [facility]06-10-2025 Miscellaneous Notes* Telephone Encounter - Nupur Green [...] labs in one month. documented in this encounterMount Carmel Health System06-10-2025 Telephone encounter Note * Telephone Encounter - Cristian Adame MD - 12/19/2024 8:40 AM EDT Urine culture are still pending. Anemic-folate is low. Iron appears low but is likely more (due to low tibc) related to the nodules he is getting biopsied-an anemia of chronic disease, Do ifobt Add iron to be on safe side and folate Recheck labs in one month. [facility]06-09-2025 Telephone encounter Note* Telephone Encounter - Raiza Rodrigez LPN - 12/18/2024 12:33 PM EDT Patient notified. Has urine test to bring back to lab. [facility]06-09-2025 Miscellaneous Notes* Telephone Encounter - Raiza Rodrigez [...] anemic labs and sodium. documented in this encounterMount Carmel Health System06-09-2025 Telephone encounter Note * Telephone Encounter - Cristian Adame MD - 12/18/2024 12:07 PM EDT Still needs to come into labs and get their urine test. UA and C and s He is slightly anemic. Sodium is low. Recheck anemic labs and sodium. [facility]06-06-2025 NoteHNO ID: [id number] Author: CRISTIAN ADAME MD Service: ? Author [...] Yes Frequency: 2.0 times per week Comment: Fellows per patient Reviewed current medications, allergies, past [...] of 2) Never done Covid-19 Vaccine( - ) Never done LAB REVIEWED: Labs: Tests: Imaging: [...] lb) 11/22/2024 74.8 kg (more content not included)...[facility] 12-15-2024 History of Present illness Narrative* [...] Yes Frequency: 2.0 times per week Comment: Fellows per patient Reviewed current medications, allergies, past [...] likely secondary to opioid use. - Recommended axxl-txz-rrngllu stool softeners such as Miralax or Colace. [...] to patient) Cristian Adame MD Recording using [employer] software for draft documentation of the visit was discussed with the patient/authorized apprenticeship training representative; all questions welcomed and answered. Patient/authorized apprenticeship training representative agreed to proceed documented in this encounterMount Carmel Health System06-06-2025 History of Present illness Narrative* Javier Romero [...] PATIENT PRESENTS WITH AN IMPLANTABLE OR ATTACHED POSTDOCTORAL FELLOW: No RADIOLOGY DEPARTMENT: General X-ray: Exam(s) Completed: Abdomen X-Ray: Abdomen PERIPHERAL IV DATA: Not applicable SIGNED BY: RT Jerri([place]) December 15, 2024 3:14 PM documented in this encounterMount Carmel Health System06-06-2025 NoteHNO ID: [id number] Author: JAVIER ROMERO RT(R) Service: Radiology Author [...] PATIENT PRESENTS WITH AN IMPLANTABLE OR ATTACHED POSTDOCTORAL FELLOW: No RADIOLOGY DEPARTMENT: General X-ray: Exam(s) Completed: Abdomen X-Ray: Abdomen PERIPHERAL IV DATA: Not applicable SIGNED BY: RT Jerri(R) December 15, 2024 3:14 [facility]06-06-2025 Instructions* Patient Instructions* Cristian Adame MD - [...] need your next refill. documented in this encounterMount Carmel Health System05-20-2025 Telephone encounter Note * Telephone Encounter - Petty Stack RN - 11/28/2024 8:47 AM EDT Patient's significant other calls and is asking if provider can send in prescription for zofran. Bottle reads take 4 mg q8h prn for nausea. Patient was prescribed this when he was in ER. .Please review and advise, Petty Stack RN [facility]05-20-2025 Miscellaneous Notes* Telephone Encounter - Petty Stack RN - 11/28/2024 8:47 AM EDT Patient's significant other calls and is asking if provider can send in prescription for zofran. Bottle reads take 4 mg q8h prn for nausea. Patient was prescribed this when he was in ER. .Please review and advise, Petty Stack RN documented in this encounterMount Carmel Health System05-15-2025 Telephone encounter Note * Telephone Encounter - Monserrat Alcantara RN - 11/23/2024 11:03 AM EDT GirlienTrudy julian, phoned for message with patient present. Given provider's message below. Rhondastates patient thought his blood sugars were good and just stopped taking the metformin. States patient will start taking metformin again. Patient states he still has metformin and will let pcp know when he runs out. [facility]05-15-2025 Miscellaneous Notes* Telephone Encounter - Monserrat Alcantara [...] is not taking it? documented in this encounterMount [facility] Telephone encounter Note * Telephone Encounter - Raiza Rodrigez LPN - 11/23/2024 10:57 AM EDT Left message to call and speak with nurse. [facility] Telephone encounter Note* Telephone Encounter - Cristian Adame MD - 11/23/2024 9:57 AM EDT Sugars are up. He should still be on metformin. Is there a reason he is not taking it? [facility]05-14[facility]25 NoteHNO ID: [id number] Author: CRISTIAN ADAME MD Service: ? Author Type: Physician Type: Progress Notes Filed: 11/22/2024 11:31 Note Text: Patient presents with: ER F/U HPI: Patient presents today for office visit for ER FOLLOW UP: Reason for visit: Abdominal pain, left sided Which facility: [facility] Date of visit: 11/12/24 Diagnosis: Lymphadenopathy Testing [...] marielena metastatic disease. The ER doc in [facility] referred to [facility]. Has been seen by [facility] on 11/14. They are going to [...] Yes Frequency: 2.0 times per week Comment: Fellows per patient Reviewed current medications, allergies, past [...] will be worsened because (more content not included)...[facility]05-14-2025 History of Present illness Narrative* Cristian Adame MD - 11/22/2024 10:44 AM EDT Patient presents with: ER F/U HPI: Patient presents today for office visit for ER FOLLOW UP: Reason for visit: Abdominal pain, left sided Which facility: [facility] Date of visit: 11/12/24 Diagnosis: Lymphadenopathy Testing done: Labs and CT scan.Treatment given: IV fluids, antinausea and pain meds Current symptoms: Having chest pain currently. Mentions a strange odor he's had since jul/aug. Ct of chest/abd/pelvis Showed "innumerable pulmonary nodules throughout both lungs, with mediastinal and hilar lymphadenopathy, most compatible with primary lung neoplasm and marielena metastatic disease. Pulmonary metastases or lymphoma are additional considerations. Small right hepatit lobe hypodensity and large centrally necrotic retroperitoneal and gastric lymphadenopathy, compatible to hepatic and marielena metastatic disease. The ER doc in [facility] referred to [facility]. Has been seen by [facility] on 11/14. They are going to [...] 1ST INGUN HRNA AGE 3 YRS/> REDUCIBLE 1976 Hernia repair, inguinal FAMILY HISTORY Problem Relation [...] Yes Frequency: 2.0 times per week Comment: Fellows per patient Reviewed current medications, allergies, past [...] above. 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 acute Jan 11:16am Nicotine abuse chronic January 18, 2025 11:16am [facility] Work Phone: 1(768) 765-854405-06-2025 Evaluation note* Diagnosis Onset Date Resolution Status [...] lower lobe acute Aug ust 2024 1:40pm [facility] Work Phone: 1(873) 899-379905-06-2025 Evaluation note* Diagnosis Onset Date Resolution Status [...] lower lobe acute Aug ust 2024 4:10pm [facility] Work Phone: 1(413) 837-604305-06-2025 Evaluation note* Diagnosis Onset Date Resolution Status [...] in right lower lobe acute Aug us2024 4:10pm Encounter for adjustment and management of vascular access device acute February 15, 2025 1:59pm [facility] Work Phone: 1(160) 283-406105-06-2025 Evaluation note* Diagnosis Onset Date Resolution Status [...] us2024 1:40pm Encounter for education acute A ug2024 4:10pm NSCLC metastatic to bone acute February [...] 2025 10:21am Nicotine abuse chronic February 10:21am 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 chronic Feb 4:10pm Encounter for adjustment and management of [...] bronchus in right lower lobe chronic Feb ust 2024 7:34am Hypoxia acute March 07, 2 025 10:21am Shortness of breath acute Augus 2024 10:21am COPD (chronic obstructive pulmonary disease) chronic March 07, 2025 10:21am Nicotine abuse chronic February 10:21am 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 Advised ER now. Patient agreeable to call squad and be seen at [facility]. Marshall Tran RN [facility]05-[facility] Miscellaneous Notes* Telephone Encounter - Marshall Tran RN - 11/09/2024 12:27 PM EDT See triage. Advised ER now. Patient agreeable to call squad and be seen at [facility]. Marshall Tran RN * Telephone Encounter - [...] his symptoms. Girlfriend agreeable. documented in this encounterMount Carmel [facility] System05-01-2025 Telephone encounter Note * Telephone Encounter - [...] fever, difficulty breathing, cough Protocols used: Chest Jzlu-[id number]-VD [facility]05-01-2025 Miscellaneous Notes* Telephone Encounter - Marshall Tran [...] fever, difficulty breathing, cough Protocols used: Chest Jilw-VIVGE-FJ documented in this encounterMount Carmel Health System05-01-2025 Telephone encounter Note * Telephone Encounter - [...] we can triage his symptoms. Girlfriend agreeable. [facility]03-[facility] Telephone encounter Note* Telephone Encounter - Anna [...] Anton LPN October 04, 2024 8:15 AM [facility] Miscellaneous Notes* Telephone Encounter - Anna Anton [...] 04, 2024 8:15 AM documented in this encounterMount Carmel Health System08-07-2024 Telephone encounter Note * Telephone Encounter - Betty Poe LPN - 02/16/2024 9:05 AM EDT Spoke with pt and information listed below given. Pt verbalizes understanding. 3 month FU apt booked and pt requested an apt reminder be mailed to him. Done. Betty Poe LPN [facility] Miscellaneous Notes* Telephone Encounter - Betty Poe [...] hold on adding meds. documented in this encounterMount Carmel Health System08-07-2024 Telephone encounter Note * Telephone Encounter - [...] the road and hold on adding meds. [facility] History of Present illness Narrative* Cristian Adame [...] Yes Frequency: 2.0 times per week Comment: Fellows per patient Reviewed current medications, allergies, past [...] six months or prn. documented in this encounterMount Carmel Health System07-30-2024 Telephone encounter Note * Telephone Encounter - [...] why he is prescribed these. Scheduled appt. [facility] Miscellaneous Notes* Telephone Encounter - Monserrat Alcantara [...] prescribed these. Scheduled appt. documented in this encounterMount Carmel [facility] System05-20-2024 Telephone encounter Note * Telephone Encounter - Raiza Rodrigez LPN - 11/29/2023 9:17 AM EDT Explained to and she verbalizes understanding. [facility]05-20[facility] Miscellaneous Notes* Telephone Encounter - Raiza Rodrigez LPN - 11/29/2023 9:17 AM EDT Explained to and she verbalizes understanding. * Telephone Encounter - Gilda Noonan APRN.CONVENTION PLANNER - 11/29/2023 9:02 AM EDT Please have [...] take. Sagrario Caldwell LPN documented in this encounterMount Carmel Health System05-20-2024 Telephone encounter Note * Telephone Encounter - Gilda Noonan APRN.CONVENTION PLANNER - 11/29/2023 9:02 AM EDT Please have [...] was ordered and is at his pharmacy. [facility] Telephone encounter Note* Telephone Encounter - Sagrario Caldwell LPN - 11/29/2023 8:14 AM EDT Last OV: 11/01/23 - prescribed Crestor 5 mg daily. Pt's SO, Trudy calls to report that pt has been having MACK's ever since starting Crestor. Asking ifthere is a different medication pt can take. Sagrario Caldwell LPN [facility] Telephone encounter Note* Telephone Encounter - Yolande Hines APRN.CNP - 11/03/2023 9:57 AM EDT Noted. Orders signed. Yolande Hines APRN.PRAFUL [facility] Work Phone: 1(410) 642-990604-24-2024 Miscellaneous Notes* Telephone Encounter - Yolande Hines APRN.CNP - 11/03/2023 9:57 AM EDT Noted. Orders signed. Yolande Hines APRN.FIBERGLASS QUALITY TECHNICIAN * Telephone Encounter - Cecily Soler RN [...] wecan check on labs. documented in this encounterMount Carmel Health System04-23-2024 Telephone encounter Note * Telephone Encounter - [...] for provider to sign. Cecily Soler RN [facility]04-22-[facility] Telephone encounter Note* Telephone Encounter - Gilda [...] months so that wecan check on labs. [facility]-22-[facility] Instructions* Patient Instructions* Gilda Noonan APRN.CNS - 11/01/2023 10:52 AM EDT 1) Get labs today 2) Rabeprazole reordered 3) Azithromycin 2 tab today then 1 daily until gone for pharyngitis 4) Triamcinolone ointment 2 x day to chest 5) Follow up yearly documented in this encounterMount Carmel Health System04-22-2024 History of Present illness Narrative* Gilda Noonan [...] Yes Frequency: 2.0 times per week Comment: Fellows per patient REVIEW OF SYSTEMS GENERAL: No [...] agrees with the plan. documented in this encounterMount Carmel Health System04-17-2024 Miscellaneous Notes* Telephone Encounter - Kenna Conley - 10/27/2023 3:22 PM EDT Opened in error. Kenna Robertson documented in this encounterMount Carmel Health System03-30-2023 Miscellaneous Notes* Telephone Encounter - Arline Jina [...] and advise. Arline Jina documented in this encounterMount Carmel Health System06-21-2022 History of Present illness Narrative* Cristian Adame [...] Yes Frequency: 2.0 times per week Comment: Fellows per patient Reviewed current medications, allergies, past [...] Level: 4 - Moderate documented in this encounterMount Carmel Health System10-28-2011 History of Past illness Narrative* Problem Noted Date Resolved Date Benign localized hyperplasia of prostate without urinary obstruction and other lower urinary tract symptoms (LUTS) 05/08/2011 05/08/2011 Depressive disorder, not elsewhere classified 05/27/2018 documented as of this encounter (statuses as of 12/30/2021) [facility] of Past illness Narrative* Problem Noted Date Resolved Date Benign localized hyperplasia of prostate without urinary obstruction and other lower urinary tract symptoms (LUTS) 05/08/2011 05/08/2011 Depressive disorder, not elsewhere classified 05/27/2018 documented as of this encounter (statuses as of 10/08/2022) [facility] of Past illness Narrative* Problem Noted Date Diagnosed Date Resolved Date Benign localized hyperplasia of prostate without urinary obstruction and other lower urinary tract symptoms (LUTS) 05/08/2011 05/08/2011 Depressive disorder, not elsewhere classified 05/09/2005/27/2018 documented as of this encounter (statuses as of 10/28/2023) [facility] SystemConsult note Author Ana Viramontes [facility] Note Date/Time February 20, 2025 11 :36am [facility] Medical Records Department [address] [place] [address] Anesthesia Postop Eval I 02/20/25 1135 MR#: [id number] Acct: [id number] Name: HYUN ELIAS Rep #:[id number] : 1975 49 From: Ana grace INFORMATICA MDM ARCHITECT PCP: Dr. Cristian Adame MD Status:REG S DC Y Race: C Location: [place] [address] Anesthesia: Postop Eval I Current Vital Signs [...] by Ana graves CRNA> Date _ Ana Ana M YAN Cosigner Signature: Date CC: ~ Signed [facility] Work Phone: Discharge summary Author Hernan Vincent [facility] Note Date/Time February 20, 2025 11 :32am [facility] Medical Records Department [address] [facility] [place] [address] Instructions for Home/Discharge Instructions 02/20/25 1131 MR#: [id number] Acct: [id number] Name: HYUN ELIAS Rep #:[id number] : 1975 49 From: Hernan guerrero MD [...] With: Hernan Vincent MD When: as needed [phone] Test Results: Test results from this visit will be discussed in further detail at your follow- up appointment, if applicable. Discharge Plan Admission Attending Provider: Hernan Vincent Primary Care Provider: Cristian Adame Instructions Print Language: Maldivian Discharge Orders/Prescriptions Prescriptions: No Action folic acid [...] CC: Dr. Cristian Adame MD ~ Signed [facility] Work Phone: Evaluation note* Diagnosis Paresthesia- Primary Disturbance of skin sensation Screening for colon cancer Special screening for malignant neoplasms, colon documented in this encounter [facility] note* Diagnosis Screening for colon cancer- Primary Special screening for malignant neoplasms, colon Hiatal hernia Diaphragmatic hernia without mention of obstruction or gangrene Screening for diabetes mellitus Screening for lipid disorders Chronic pain of both knees Tobacco abuse Tobacco use disorder Acute pharyngitis due to other specified organisms Allergic contact dermatitis due to other agents documented in this encounter [facility]* Diagnosis Controlled type 2 diabetes mellitus without complication, without long-term current use of insulin (HCC)- Primary Hyperlipidemia, mixed Mixed hyperlipidemia documented in this encounter [facility]* Diagnosis Dyslipidemia- Primary Other and unspecified hyperlipidemia [facility]* Diagnosis Controlled type 2 diabetes mellitus without complication, without long-term current use of insulin (HCC)- Primary Hyperlipidemia, mixed Mixed hyperlipidemia Tobacco abuse Tobacco use disorder Screening for prostate cancer Special screening for malignant neoplasm of prostate Encounter for screening examination for other mental health and behavioral disorders [facility]* Diagnosis Controlled type 2 diabetes mellitus without complication, without long-term current use of insulin (HCC) documented [facility]* Diagnosis Lung nodules- Primary Other nonspecific abnormal finding of lung field Controlled type 2 diabetes mellitus without complication, without long-term current use of insulin (HCC) Hyperlipidemia, mixed Mixed hyperlipidemia Tobacco abuse Tobacco use disorder Lymphadenopathy, abdominal Enlargement of lymph nodes Hilar lymphadenopathy Enlargement of lymph nodes documented in this encounter [facility] note* Diagnosis Hilar lymphadenopathy- Primary Enlargement of lymph nodes Medication monitoring encounter Encounter for therapeutic drug monitoring Lymphadenopathy, abdominal Enlargement of lymph nodes Lung nodules Other nonspecific abnormal finding of lung field Chest wall pain Painful respiration Tobacco abuse Tobacco use disorder Gross hematuria Acute constipation Unspecified constipation Night sweats Generalized hyperhidrosis Acute constipation Unspecified constipation documented in this encounter [facility] note* Diagnosis Acute constipation Unspecified constipation [facility]* Diagnosis Anemia, unspecified type- Primary documented in this encounter [facility]* Diagnosis Anemia, unspecified type- Primary Folic acid deficiency Other B-complex deficiencies [facility]* Diagnosis Lymphadenopathy, abdominal- Primary Enlargement of lymph nodes Chest wall pain Painful respiration Hilar lymphadenopathy Enlargement of lymph nodes Lung nodule Solitary pulmonary nodule documented [facility] this [facility]* Diagnosis Anxiety- Primary Anxiety state, unspecified documented [facility] this [facility]* Diagnosis Lymphadenopathy, abdominal Enlargement of lymph nodes Chest wall pain Painful respiration Hilar lymphadenopathy Enlargement of lymph nodes Lung nodule Solitary pulmonary nodule documented in this encounter [facility]* Diagnosis Generalized abdominal pain- Primary Abdominal pain, generalized documented [facility]* Diagnosis Generalized abdominal pain Abdominal pain, generalized documented [facility] this [facility]* Diagnosis Lymphadenopathy, abdominal Enlargement of lymph nodes Chest wall pain Painful respiration Hilar lymphadenopathy Enlargement of lymph nodes Lung nodule Solitary pulmonary nodule documented [facility] this [facility]* Diagnosis 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, unspecified laterality (HCC)- Primary Generalized abdominal pain Abdominal pain, generalized documented [facility]* Diagnosis Dysuria- Primary Controlled type 2 diabetes mellitus without complication, with long-term current use of insulin (HCC) Acute constipation Unspecified constipation Malignant neoplasm of lower lobe of lung, unspecified laterality (HCC) documented in this encounter [facility]* Diagnosis Controlled type 2 diabetes mellitus without complication, without long-term current use of insulin (HCC)- Primary documented in this encounter [facility]* Diagnosis Generalized abdominal pain Abdominal pain, generalized 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, unspecified laterality (HCC) documented in this encounter [facility] note* Diagnosis Lymphadenopathy, abdominal Enlargement of lymph nodes Chest wall pain Painful respiration Hilar lymphadenopathy Enlargement of lymph nodes Lung nodule Solitary pulmonary nodule documented in this encounter [facility]* Diagnosis Squamous cell carcinoma of lung, [...] unspecified laterality (HCC) documented in this encounter [facility]* Diagnosis Acute pharyngitis, unspecified etiology- Primary Abnormal lung sounds Abnormal chest sounds 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, unspecified laterality (HCC) [facility] Discharge instructionsAmbulatory Orders* Fast Pass: Oncology Referral [facility] Location: None Selected [facility] Work Phone: Hospital Discharge instructionsAmbulatory Orders* Prior Authorization Referral - ONC/HEM Location: None Selected * General Surgery Location: None Selected [facility] Work Phone: Hospital Discharge instructionsAmbulatory Orders* Nutrition Referral - [facility] Location: None Selected [facility] Work Phone: Reason for referral (narrative)No reason for referral information availableWMercer [facility] Work Phone: Reason for visit Narrative* Diagnostic Procedure Only (Urgent) - Closed Specialty Diagnoses / Procedures Referred By Contac t Referred To Contact XR IMAGING Diagnoses Acute constipation Procedures XR ABDOMEN 1V SUPINE RADIOLOGIC EXAM ABDOMEN 1 VIEW Cristian Adame MD [address] [place] [address] Phone: tel: fax: [place] [address] Referral ID Status Reason Start Date Expiration Date V isits Requested Visits Authorized [id number] Closed Auto-Generate d Referral 12/15/2024 01/14/2026 1 1 [facility] Reason for Referral Specialty Diagnoses / Procedures Referred By Levi low Referred To Contact General Surgery Diagnoses Screening for colon cancer Procedures CONSULT TO GENERAL SURGERY OFFICE/OUTPATIENT [facility] MDM 60-74 MINUTES Cristian Adame MD [address] [place] [address] Referral ID Status Reason Start Date Expiration Date Visits Requested Visits Authorized [id number] Authorized PCP Requested Referral 12/30/2021 12/30/2022 1 1 Specialty Diagnoses / Procedures Referred By Levi low Referred To Contact [facility] Diagnoses Paresthesia Procedures EMG(NEURO/NI) NERVE CONDUCTION STUDIES 9-10 STUDIES Cristian Adame MD [address] [place] [address] Neurological [place] [address] [place] [address] Referral ID Status Reason Start Date Expiration Date Visits Requested Visits Authorized [id number] Pending Review Auto-Generat ed Referral 12/30/2021 12/30/2022 1 1 Advance Directives Documents on File Type Date Recorded 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 No November 12, 2024 8:06am Advance Directive Response Recorded Date/ Time Do you have a Healthcare Power of Resource Recovery Engineer? No February 15, 2025 3:09pm Do you have a Healthcare Power of Resource Recovery Engineer? No November 12, 2024 8:06am Advance Directive Response Recorded Date/ Time Advance Directives No March 05, 2025 1:32pm Do you have a Healthcare Power of Resource Recovery Engineer? No February 15, 2025 3:09pm Do you have a Healthcare Power of Resource Recovery Engineer? No November 12, 2024 8:06am Living Will No March 01 10:18am Do you have a Healthcare Power of Resource Recovery Engineer? No March 01, 2025 10:18am Advance Directive Response Recorded Date/ Time Do you have a Healthcare Power of Resource Recovery Engineer? No February 15, 2025 3:09pm Do you have a Healthcare Power of Resource Recovery Engineer? No November 12, 2024 8:06am Living Will No March 08 9:22am Do you have a Healthcare Power of Resource Recovery Engineer? No March 08, 2025 9:22am Advance Directives No March 08, 2025 9:22am Advance Directive Response Recorded Date/ Time Do you have a Healthcare Power of Resource Recovery Engineer? No February 15, 2025 3:09pm Living Will No March 15, 8:31am Do you have a Healthcare Power of Resource Recovery Engineer? No March 15, 2025 8:31am Advance Directives No March 8:31am Do you have a Healthcare Power of Resource Recovery Engineer? No March 21, 2025 11:01pm Chief Complaint and Reason for Visit Chief [...] 7:34am NSCLC metastatic to liver March 01, 025 7:34am Squamous cell carcinoma of bronchus [...] 7:49am NSCLC metastatic to liver March 08, 2 025 7:49am Squamous cell carcinoma of bronchus in r ight lower lobe March 08, 2025 7:49am Chief Complaint Admit Date Other nonspecific abnormal finding of maeve ng [...] LABS [place] March 08, 2025 7: 49am MED ONC March 15, 2025 8:15am ABDOMINAL PAIN STAGE IV LUNG CANCER FAIL URE TO March 21, 2025 11:45pm Reason for Visit Admit Date Unintentional weight loss January 18 11:16am Nicotine [...] 1:59pm Encounter for antineoplastic chemotherapy and immunotherapy March 01, 2025 7:34am Hyponatremia March 01, 2025 7: 34am 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 February 102024 7:34am NSCLC metastatic to bone March 01 7:34am NSCLC metastatic to liver March 01, 2 025 7:34am Squamous cell carcinoma of bronchus [...] March 07, 2025 10:21am Encounter for antineoplastic chemotherapy and immunotherapy March 08, 2025 7:49am 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 February 102024 7:49am NSCLC metastatic to bone March 08 7:49am NSCLC metastatic to liver March 08 7:49am Squamous cell carcinoma of bronchus in r ight lower lobe March 08, 2025 7:49am Adult failure to thrive March 21, 2025 11:45pm Hyponatremia March 21, 2025 11:45pm Hypotension March 21, 2025 11:45pm Metastatic primary lung cancer March 21, 2025 11:45pm 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 Septembe 2024 11:45pm Weakness March 21, 2025 11:45pm Weight loss, non-intentional March 122024 11:45pm NSCLC metastatic to bone March 21, 2025 11:45pm NSCLC metastatic to liver March 11:45pm Squamous cell carcinoma of bronchus in r ight lower lobe March 21, 2025 11:45pm Family History Relationship Condition Age at Onset [...] or prosecute any alcohol or drug abuse patient.[facility] SystemIn the event this information is protected by the Federal Confidentiality of Alcohol and Drug Abuse Patient Records regulations: The Federal rules restrict any use of the information to criminally investigate or prosecute any alcohol or drug abuse patient.[facility] SystemIn the event this information is protected by the Federal Confidentiality of Alcohol and Drug Abuse Patient Records regulations: The Federal rules restrict any use of the information to criminally investigate or prosecute any alcohol or drug abuse patient.[facility] SystemIn the event this information is protected by the Federal Confidentiality of Alcohol and Drug Abuse Patient Records regulations: The Federal rules restrict any use of the information to criminally investigate or prosecute any alcohol or drug abuse patient.[facility] SystemIn the event this information is protected by the Federal Confidentiality of Alcohol and Drug Abuse Patient Records regulations: The Federal rules restrict any use of the information to criminally investigate or prosecute any alcohol or drug abuse patient.[facility] SystemIn the event this information is protected by the Federal Confidentiality of Alcohol and Drug Abuse Patient Records regulations: The Federal rules restrict any use of the information to criminally investigate or prosecute any alcohol or drug abuse patient.[facility] SystemIn the event this information is protected by the Federal Confidentiality of Alcohol and Drug Abuse Patient Records regulations: The Federal rules restrict any use of the information to criminally investigate or prosecute any alcohol or drug abuse patient.[facility] SystemIn the event this information is protected by the Federal Confidentiality of Alcohol and Drug Abuse Patient Records regulations: The Federal rules restrict any use of the information to criminally investigate or prosecute any alcohol or drug abuse patient.[facility] SystemIn the event this information is protected by the Federal Confidentiality of Alcohol and Drug Abuse Patient Records regulations: The Federal rules restrict any use of the information to criminally investigate or prosecute any alcohol or drug abuse patient.[facility] SystemIn the event this information is protected by the Federal Confidentiality of Alcohol and Drug Abuse Patient Records regulations: The Federal rules restrict any use of the information to criminally investigate or prosecute any alcohol or drug abuse patient.[facility] SystemIn the event this information is protected by the Federal Confidentiality of Alcohol and Drug Abuse Patient Records regulations: The Federal rules restrict any use of the information to criminally investigate or prosecute any alcohol or drug abuse patient.[facility] SystemIn the event this information is protected by the Federal Confidentiality of Alcohol and Drug Abuse Patient Records regulations: The Federal rules restrict any use of the information to criminally investigate or prosecute any alcohol or drug abuse patient.[facility] SystemIn the event this information is protected by the Federal Confidentiality of Alcohol and Drug Abuse Patient Records regulations: The Federal rules restrict any use of the information to criminally investigate or prosecute any alcohol or drug abuse patient.[facility] SystemIn the event this information is protected by the Federal Confidentiality of Alcohol and Drug Abuse Patient Records regulations: The Federal rules restrict any use of the information to criminally investigate or prosecute any alcohol or drug abuse patient.[facility] SystemIn the event this information is protected by the Federal Confidentiality of Alcohol and Drug Abuse Patient Records regulations: The Federal rules restrict any use of the information to criminally investigate or prosecute any alcohol or drug abuse patient.[facility] SystemIn the event this information is protected by the Federal Confidentiality of Alcohol and Drug Abuse Patient Records regulations: The Federal rules restrict any use of the information to criminally investigate or prosecute any alcohol or drug abuse patient.[facility] SystemIn the event this information is protected by the Federal Confidentiality of Alcohol and Drug Abuse Patient Records regulations: The Federal rules restrict any use of the information to criminally investigate or prosecute any alcohol or drug abuse patient.[facility] SystemIn the event this information is protected by the Federal Confidentiality of Alcohol and Drug Abuse Patient Records regulations: The Federal rules restrict any use of the information to criminally investigate or prosecute any alcohol or drug abuse patient.[facility] SystemIn the event this information is protected by the Federal Confidentiality of Alcohol and Drug Abuse Patient Records regulations: The Federal rules restrict any use of the information to criminally investigate or prosecute any alcohol or drug abuse patient.[facility] SystemIn the event this information is protected by the Federal Confidentiality of Alcohol and Drug Abuse Patient Records regulations: The Federal rules restrict any use of the information to criminally investigate or prosecute any alcohol or drug abuse patient.[facility] SystemIn the event this information is protected by the Federal Confidentiality of Alcohol and Drug Abuse Patient Records regulations: The Federal rules restrict any use of the information to criminally investigate or prosecute any alcohol or drug abuse patient.[facility] SystemIn the event this information is protected by the Federal Confidentiality of Alcohol and Drug Abuse Patient Records regulations: The Federal rules restrict any use of the information to criminally investigate or prosecute any alcohol or drug abuse patient.[facility] SystemIn the event this information is protected by the Federal Confidentiality of Alcohol and Drug Abuse Patient Records regulations: The Federal rules restrict any use of the information to criminally investigate or prosecute any alcohol or drug abuse patient.[facility] SystemIn the event this information is protected by the Federal Confidentiality of Alcohol and Drug Abuse Patient Records regulations: The Federal rules restrict any use of the information to criminally investigate or prosecute any alcohol or drug abuse patient.[facility] SystemIn the event this information is protected by the Federal Confidentiality of Alcohol and Drug Abuse Patient Records regulations: The Federal rules restrict any use of the information to criminally investigate or prosecute any alcohol or drug abuse patient.[facility] SystemIn the event this information is protected by the Federal Confidentiality of Alcohol and Drug Abuse Patient Records regulations: The Federal rules restrict any use of the information to criminally investigate or prosecute any alcohol or drug abuse patient.[facility] SystemIn the event this information is protected by the Federal Confidentiality of Alcohol and Drug Abuse Patient Records regulations: The Federal rules restrict any use of the information to criminally investigate or prosecute any alcohol or drug abuse patient.[facility] SystemIn the event this information is protected by the Federal Confidentiality of Alcohol and Drug Abuse Patient Records regulations: The Federal rules restrict any use of the information to criminally investigate or prosecute any alcohol or drug abuse patient.[facility] SystemIn the event this information is protected by the Federal Confidentiality of Alcohol and Drug Abuse Patient Records regulations: The Federal rules restrict any use of the information to criminally investigate or prosecute any alcohol or drug abuse patient.[facility] SystemIn the event this information is protected by the Federal Confidentiality of Alcohol and Drug Abuse Patient Records regulations: The Federal rules restrict any use of the information to criminally investigate or prosecute any alcohol or drug abuse patient.[facility] SystemIn the event this information is protected by the Federal Confidentiality of Alcohol and Drug Abuse Patient Records regulations: The Federal rules restrict any use of the information to criminally investigate or prosecute any alcohol or drug abuse patient.[facility] SystemIn the event this information is protected by the Federal Confidentiality of Alcohol and Drug Abuse Patient Records regulations: The Federal rules restrict any use of the information to criminally investigate or prosecute any alcohol or drug abuse patient.[facility] SystemIn the event this information is protected by the Federal Confidentiality of Alcohol and Drug Abuse Patient Records regulations: The Federal rules restrict any use of the information to criminally investigate or prosecute any alcohol or drug abuse patient.[facility] SystemIn the event this information is protected by the Federal Confidentiality of Alcohol and Drug Abuse Patient Records regulations: The Federal rules restrict any use of the information to criminally investigate or prosecute any alcohol or drug abuse patient.[facility] SystemIn the event this information is protected by the Federal Confidentiality of Alcohol and Drug Abuse Patient Records regulations: The Federal rules restrict any use of the information to criminally investigate or prosecute any alcohol or drug abuse patient.[facility] SystemIn the event this information is protected by the Federal Confidentiality of Alcohol and Drug Abuse Patient Records regulations: The Federal rules restrict any use of the information to criminally investigate or prosecute any alcohol or drug abuse patient.[facility] SystemIn the event this information is protected by the Federal Confidentiality of Alcohol and Drug Abuse Patient Records regulations: The Federal rules restrict any use of the information to criminally investigate or prosecute any alcohol or drug abuse patient.[facility] SystemIn the event this information is protected by the Federal Confidentiality of Alcohol and Drug Abuse Patient Records regulations: The Federal rules restrict any use of the information to criminally investigate or prosecute any alcohol or drug abuse patient.[facility] Reason for Visit (unrecogniz ed section and [...] Care Teams (unrecognized sec tion and content) [facility] Display Builder Relationship Specialty Start Date End Date Cristian Adame MD [address] [place] [address] PCP - General Family Practice 10/08/14 [facility] Display Builder Relationship Specialty Start Date End Date Cristian Adame MD [address] [place], [place] [id number] PCP - General Family Medicine 10/08/14 [facility] Display Builder Relationship Specialty Start Date End Date Cristian Adame MD [address] [place], [place] [address] PCP - General Family Medicine 10/08/14 [facility] Display Builder Relationship Specialty Start Date End Date Cristian Adame MD [address] [place] [address] PCP - General Family Medicine 10/08/14 [facility] Display Builder Relationship Specialty Start Date End Date Cristian Adame MD [address] [place] [address] PCP - General Family Medicine 10/08/14 [facility] Display Builder Relationship Specialty Start Date End Date Cristian Adame MD [address] [place] [address] PCP - General Family Medicine 10/08/14 [facility] Display Builder Relationship Specialty Start Date End Date Cristian Adame MD [address] [place] [address] PCP - General Family Medicine 10/08/14 [facility] Display Builder Relationship Specialty Start Date End Date Cristian Adame MD [address] [place], [place] [address] PCP - General Family Medicine 10/08/14 [facility] Display Builder Relationship Specialty Start Date End Date Cristian Adame MD [address] [place], [place] [address] PCP - General Family Medicine 10/08/14 [facility] Display Builder Relationship Specialty Start Date End Date Cristian Adame MD [address] [facility], [place] [address] PCP - General Family Medicine 10/08/14 Yolande Hines, HAWK MISSILE SYSTEM CREWMEMBER.FIBERGLASS QUALITY TECHNICIAN [address] [facility] [place] [address] Formerly [facility] 06/19/24 Gilda Noonan HAWK MISSILE SYSTEM CREWMEMBER.FIBERGLASS QUALITY TECHNICIAN [address] [facility] [place] [address] [facility]ly [facility] 06/19/24 [facility] Display Builder Relationship Specialty Start Date End Date Cristian Adame MD [address] [facility] [place] [address] PCP - General Family Medicine 10/08/14 Yolande Hines, HAWK MISSILE SYSTEM CREWMEMBER.FIBERGLASS QUALITY TECHNICIAN [address] [facility] [place] [address] Formerly [facility] 06/19/24 Gilda Noonan, HAWK MISSILE SYSTEM CREWMEMBER.FIBERGLASS QUALITY TECHNICIAN [address] [place] [place] [address] Formerly [facility] 06/19/24 Team Status: Active Member Role Status Dates Dr. Cristian Adame MD Primary Care Provider Active Team Status: Inactive Member Role Status Dates Dr. Cristian Adame MD Primary Care Provider Active Start: November 12, 2024 End: November 12, 2024 Dr. Dionicio Grimes , Attending Provider Active Start: November 12, 2024 End: November 12, 2024 Dr. Dionicio Grimes , Emergency Provider Active Start: November 12, 2024 [...] 2024 End: November 14, 2024 Dr. Denny Mofftet , Referring Provider Active S tart: November 14, 2024 End: November 14, 2024 [facility] Display Builder Relationship Specialty Start Date End Date Cristian Adame MD [address] [place] [place] [address] PCP - General Family Medicine 10/08/14 Yolande Hines APRN.FIBERGLASS QUALITY TECHNICIAN [address] [facility] [place] [address] Resource Analyst Family Medicine 06/19/24 Gilda Noonan HAWK MISSILE SYSTEM CREWMEMBER.FIBERGLASS QUALITY TECHNICIAN [address] [facility] [place] [address] [facility] 06/19/24 [facility] Display Builder Relationship Specialty Start Date End Date Cristian Adame MD [address] [place] [place] [address] PCP - General Family Medicine 10/08/14 Yolande Hines HAWK MISSILE SYSTEM CREWMEMBER.FIBERGLASS QUALITY TECHNICIAN [address] [facility] [place] [address] [facility] 06/19/24 Gilda Noonan HAWK MISSILE SYSTEM CREWMEMBER.FIBERGLASS QUALITY TECHNICIAN [address] [place] [place] [address] Formerly [facility] 06/19/24 [facility] Display Builder Relationship Specialty Start Date End Date Cristian Adame MD [address] [place] [address] PCP - General Family Medicine 10/08/14 Yolande Hines HAWK MISSILE SYSTEM CREWMEMBER.FIBERGLASS QUALITY TECHNICIAN [address] [facility] [place] [address] [facility] 06/19/24 Gilda Noonan HAWK MISSILE SYSTEM CREWMEMBER.FIBERGLASS QUALITY TECHNICIAN [address] [place] [address] Formerly [facility] 06/19/24 [facility] Display Builder Relationship Specialty Start Date End Date Cristian Adame MD [address] [facility] [place] [address] PCP - General Family Medicine 10/08/14 Yolande Hines HAWK MISSILE SYSTEM CREWMEMBER.FIBERGLASS QUALITY TECHNICIAN [address] [place] [address] Formerly [facility] 06/19/24 Gilda Noonan HAWK MISSILE SYSTEM CREWMEMBER.FIBERGLASS QUALITY TECHNICIAN [address] [place] [address] [facility]ly [facility] 06/19/24 [facility] Center Display Builder Relationship Specialty Start Date End Date Cristian Adame MD [address] [facility] [place] [address] PCP - General Family Medicine 10/08/14 Yolande Hines HAWK MISSILE SYSTEM CREWMEMBER.FIBERGLASS QUALITY TECHNICIAN [address] [facility] [place] [address] [facility] Medicine 06/19/24 Gilda Noonan APRN.FIBERGLASS QUALITY TECHNICIAN [address] [place] [address] Resource Analyst Family Medicine 06/19/24 [facility] Display Builder Relationship Specialty Start Date End Date Cristian Adame MD [address] [place] [address] PCP - General Family Medicine 10/08/14 Yolande Hines APRN.FIBERGLASS QUALITY TECHNICIAN [address] [place] [address] Resource Analyst Family Medicine 06/19/24 Gilda Noonan APRN.FIBERGLASS QUALITY TECHNICIAN [address] [facility] [place] [address] [facility] 06/19/24 [facility] Display Builder Relationship Specialty Start Date End Date Cristian Adame MD [address] [facility] [place] [address] PCP - General Family Medicine 10/08/14 Yolande Hines HAWK MISSILE SYSTEM CREWMEMBER.FIBERGLASS QUALITY TECHNICIAN [address] [facility] [place] [address] Resource Analyst Family Medicine 06/19/24 Gilda Noonan APRN.FIBERGLASS QUALITY TECHNICIAN [address] [facility] [place] [address] Resource Analyst Family Medicine 06/19/24 [facility] Display Builder Relationship Specialty Start Date End Date Cristian Adame MD [address] [place] [address] PCP - General Family Medicine 10/08/14 Yolande Hines HAWK MISSILE SYSTEM CREWMEMBER.FIBERGLASS QUALITY TECHNICIAN [address] [place] [address] Resource Analyst Family Medicine 06/19/24 Gilda Noonan APRN.FIBERGLASS QUALITY TECHNICIAN [address] [facility] [place] [address] Resource Analyst Family Medicine 06/19/24 [facility] Display Builder Relationship Specialty Start Date End Date Cristian Adame MD [address] [place] [address] PCP - General Family Medicine 10/08/14 Yolande Hines APRN.FIBERGLASS QUALITY TECHNICIAN [address] [place] [address] Resource Analyst Family Medicine 06/19/24 Gilda Noonan HAWK MISSILE SYSTEM CREWMEMBER.FIBERGLASS QUALITY TECHNICIAN [address] [place] [address] Resource Analyst Family Medicine 06/19/24 [facility] Display Builder Relationship Specialty Start Date End Date Cristian Adame MD [address] [place] [address] PCP - General Family Medicine 10/08/14 Yolande Hines HAWK MISSILE SYSTEM CREWMEMBER.FIBERGLASS QUALITY TECHNICIAN [address] [place] [address] Resource Analyst Family Medicine 06/19/24 Gilda Noonan HAWK MISSILE SYSTEM CREWMEMBER.FIBERGLASS QUALITY TECHNICIAN [address] [place] [address] Resource Analyst Family Medicine 06/19/24 [facility] Display Builder Relationship Specialty Start Date End Date Cristian Adame MD [address] [place] [address] PCP - General Family Medicine 10/08/14 Yolande Hines, HAWK MISSILE SYSTEM CREWMEMBER.FIBERGLASS QUALITY TECHNICIAN [address] [place], [place] [address] Formerly [facility] 06/19/24 Gilda Noonan HAWK MISSILE SYSTEM CREWMEMBER.FIBERGLASS QUALITY TECHNICIAN [address] [place], [place] [address] Formerly [facility] 06/19/24 Team Status: Active Member Role/Relationship Status [...] January 04, 2025 Dr. Denny Moffett , DO Attending Provider Active S tart: January 04, [...] 2025 End: January 18, 2025 Tayler Cardenas LOOM OPERATOR APPRENTICE, LOOM OPERATOR APPRENTICE-C Attending Provider Active Start: January 18, 2025 End: January 18, 2025 [facility] Display Builder Relationship Specialty Start Date End Date Cristian Adame MD [address] [place] [place] [address] PCP - General Family Medicine 10/08/14 Yolande Hines, HAWK MISSILE SYSTEM CREWMEMBER.FIBERGLASS QUALITY TECHNICIAN [address] [facility] [place] [address] [facility] Medicine 06/19/24 Gilda Noonan HAWK MISSILE SYSTEM CREWMEMBER.FIBERGLASS QUALITY TECHNICIAN [address] [facility] [place] [address] [facility] Medicine 06/19/24 [facility] Display Builder Relationship Specialty Start Date End Date Cristian Adame MD [address] [facility] [place] [address] PCP - General Family Medicine 10/08/14 Yolande Hines, HAWK MISSILE SYSTEM CREWMEMBER.FIBERGLASS QUALITY TECHNICIAN [address] [facility] [place] [address] [facility] Medicine 06/19/24 Gilda Noonan HAWK MISSILE SYSTEM CREWMEMBER.FIBERGLASS QUALITY TECHNICIAN [address] [place] [address] Formerly [facility] 06/19/24 [facility] Display Builder Relationship Specialty Start Date End Date Cristian Adame MD [address] [place], [place] [address] PCP - General Family Medicine 10/08/14 Yolande Hines APRN.FIBERGLASS QUALITY TECHNICIAN [address] [place], [place] [address] [facility] 06/19/24 Gilda Noonan APRN.FIBERGLASS QUALITY TECHNICIAN [address] [place], [place] [address] Formerly [facility] 06/19/24 Team Status: Active Member Role/Relationship Status Dates Dr. Cristian Adame MD Primary Care Provider Active Start: February 06, 2025 Tayler Cardenas LOOM OPERATOR APPRENTICE, LOOM OPERATOR APPRENTICE-C Attending Provider Active Start: February 06, 2025 Tayler Cardenas LOOM OPERATOR APPRENTICE, LOOM OPERATOR APPRENTICE-C Referring Provider Active Start: February 06, 2025 Team Status: Inactive Member Role/Relationship Status Dates Dr. Cristian Adame MD Primary Care Provider Active Start: February 12, 2025 End: February 12, 2025 Tayler Cardenas LOOM OPERATOR APPRENTICE, LOOM OPERATOR APPRENTICE-C Referring Provider Active Start: February 12, 2025 End: February 12, 2025 Dr. Regino Burleson MD Attending Provider Active S tart: February 12, 2025 End: February 12, 2025 Team Status: Active Member Role/Relationship Status Dates Dr. Cristian Adame MD Primary Care Provider Active Start: February 13, 2025 Dr. Maria C Browning MD Other Provider Active Start: February 13, 2025 Yelena Gallegos LOOM OPERATOR APPRENTICE, LOOM OPERATOR APPRENTICE-C Other Provider Active St art: February 13, [...] 2025 End: February 13, 2025 Yelena Gallegos LOOM OPERATOR APPRENTICE, LOOM OPERATOR APPRENTICE-C Attending Provider Active Start: February 13, 2025 [...] February 15, 2025 End: February 15, 2025 [facility] Display Builder Relationship Specialty Start Date End Date Cristian Adame MD [address] [place], [place] [address] PCP - General Family Medicine 10/08/14 Yolande Hines, HAWK MISSILE SYSTEM CREWMEMBER.FIBERGLASS QUALITY TECHNICIAN [address] [place], [place] [id number] Resource Analyst Family Medicine 06/19/24 Gilda Noonan, HAWK MISSILE SYSTEM CREWMEMBER.FIBERGLASS QUALITY TECHNICIAN [address] [place], [place] [id number] Resource Analyst [facility] Medicine 06/19/24 Team Status: Inactive Member Role/Relationship Status [...] 2025 End: February 06, 2025 Tayler Cardenas NP, LOOM OPERATOR APPRENTICE-C Attending Provider Active Start: February 06, 2025 End: February 06, 2025 Tayler Cardenas LOOM OPERATOR APPRENTICE, LOOM OPERATOR APPRENTICE-C Referring Provider Active Start: February 06, 2025 End: February 06, 2025 Team Status: Inactive Member Role/Relationship Status Dates Dr. Cristian Adame MD Primary Care Provider Active Start: February 13, 2025 End: February 13, 2025 Dr. Cristian Adame MD Referring Provider Active Start: February 13, 2025 End: February 13, 2025 Yelena Gallegos LOOM OPERATOR APPRENTICE, LOOM OPERATOR APPRENTICE-C Attending Provider Active Start: February 13, 2025 [...] 2025 End: March 01, 2025 Yelena Gallegos LOOM OPERATOR APPRENTICE, LOOM OPERATOR APPRENTICE-C Attending Provider Active Start: March 01, 2025 End: March 01, 2025 Team Status: Active Member Role/Relationship Status Dates Dr. Cristian Adame MD Primary Care Provider Active Start: March 01, 2025 Dr. Maria C Browning MD Other Provider Active Start: March 01, 2025 Yelena Gallegos NP, LOOM OPERATOR APPRENTICE-C Other Provider Active St art: March 01, 2025 Dr. Regino Burleson MD Attending Provider Active S tart: March 01, 2025 Dr. Regino Burleson MD Referring Provider Active S tart: March 01, 2025 [facility] Display [facility] Relationship Specialty Start Date End Date Cristian Adame MD [address] [place], [place] [id number] PCP - General Family Medicine 10/08/14 Yolande Hinse APRN.FIBERGLASS QUALITY TECHNICIAN [address] [place], [place] [id number] Resource Analyst Family Medicine 06/19/24 Gilda Noonan APRN.FIBERGLASS QUALITY TECHNICIAN [address] [place], [place] [id number] Resource Analyst Family [facility] 06/19/24 Team Status: Inactive Member Role/Relationship Status Dates Dr. Cristian Adame MD Primary Care Provider Active Start: March 07, 2025 End: March 07, 2025 Dr. Cristian Adame MD Referring Provider Active Start: March 07, 2025 End: March 07, 2025 Tayler Cardenas LOOM OPERATOR APPRENTICE, LOOM OPERATOR APPRENTICE-C Attending Provider Active Start: March 07, 2025 End: March 07, 2025 Team Status: Inactive Member Role/Relationship Status Dates Dr. Cristian Adame MD Primary Care Provider Active Start: March 07, 2025 End: March 07, 2025 Dr. Cristian Adame MD Referring Provider Active Start: March 07, 2025 End: March 07, 2025 Tayler Cardenas LOOM OPERATOR APPRENTICE, LOOM OPERATOR APPRENTICE-C Attending Provider Active Start: March 07, 2025 [...] Active Start: March 08, 2025 Yelena Gallegos LOOM OPERATOR APPRENTICE, LOOM OPERATOR APPRENTICE-C Other Provider Active St art: March 08, 2025 Dr. Regino Burleson MD Attending Provider Active S tart: March 08, 2025 Dr. Regino Burleson MD Referring Provider Active S tart: March 08, 2025 [facility] Display [employer] Relationship Specialty Start Date End Date Cristian Adame MD [address] [place], [place] [id number] PCP - General Family Medicine 10/08/14 Yolande Hines, [employer] MISSILE SYSTEM CREWMEMBER.FIBERGLASS QUALITY TECHNICIAN [address] [place], [place] [address] Resource Analyst Family [facility] 06/19/24 Gilda Noonan, [employer] MISSILE SYSTEM CREWMEMBER.FIBERGLASS QUALITY TECHNICIAN [address] [place], [place] [id number] [facility] Team Status: Inactive Member Role/Relationship Status Dates Dr. Cristian Adame MD Primary Care Provider Active Start: January 04, 2025 End: January 04, 2025 Dr. Denny Moffett , Attending Provider Active S tart: January 04, 2025 End: January 04, 2025 Dr. Denny Moffett DO Referring Provider Active S tart: January 04, [...] 2025 End: January 18, 2025 Tayler Cardenas LOOM OPERATOR APPRENTICE, LOOM OPERATOR APPRENTICE-C Attending Provider Active Start: January 18, 2025 End: January 18, 2025 Team Status: Inactive Member Role/Relationship Status Dates Dr. Cristian Adame MD Primary Care Provider Active Start: February 06, 2025 End: February 06, 2025 Tayler Cardenas LOOM OPERATOR APPRENTICE, LOOM OPERATOR APPRENTICE-C Attending Provider Active Start: February 06, 2025 End: February 06, 2025 Tayler Cardenas LOOM OPERATOR APPRENTICE, LOOM OPERATOR APPRENTICE-C Referring Provider Active Start: February 06, 2025 End: February 06, 2025 Team Status: Inactive Member Role/Relationship Status Dates Dr. Cristian Aadme MD Primary Care Provider Active Start: February 12, 2025 End: February 12, 2025 Tayler Cardenas LOOM OPERATOR APPRENTICE, LOOM OPERATOR APPRENTICE-C Referring Provider Active Start: February 12, 2025 End: February 12, 2025 Dr. Regino Burleson MD Attending Provider Active S tart: February 12, 2025 End: February 12, 2025 Team Status: Inactive Member Role/Relationship Status Dates Dr. Cristian Adame MD Primary Care Provider Active Start: February 13, 2025 End: February 13, 2025 Dr. Cristian Adame MD Referring Provider Active Start: February 13, 2025 End: February 13, 2025 Yelena Gallegos LOOM OPERATOR APPRENTICE, LOOM OPERATOR APPRENTICE-C Attending Provider Active Start: February 13, 2025 [...] 2025 End: March 01, 2025 Yelena Gallegos LOOM OPERATOR APPRENTICE, LOOM OPERATOR APPRENTICE-C Attending Provider Active Start: March 01, 2025 End: March 01, 2025 Team Status: Inactive Member Role/Relationship Status Dates Dr. Cristian Adame MD Primary Care Provider Active Start: March 07, 2025 End: March 07, 2025 Dr. Cristian Adame MD Referring Provider Active Start: March 07, 2025 End: March 07, 2025 Tayler Cardenas LOOM OPERATOR APPRENTICE, LOOM OPERATOR APPRENTICE-C Attending Provider Active Start: March 07, 2025 [...] MD Primary Care Provider Active Start: March 15, 2025 Dr. Maria C Browning MD Other Provider Active Start: March 15, 2025 Yelena Gallegos LOOM OPERATOR APPRENTICE, LOOM OPERATOR APPRENTICE-C Other Provider Active St art: March 15, 2025 Dr. Regino Burleson MD Attending Provider Active S tart: March 15, 2025 Dr. Regino Burleson MD Referring Provider Active S tart: March 15, 2025 Team Status: Active Member Role/Relationship Status Dates Dr. Cristian Adame MD Primary Care Provider Active Start: March 21, 2025 Dr. Lindsay Clifton , DO Emergency Provider Active S tart: March 21, 2025 Dr. Theodore Mcmillan , DO Admit Provider Active Start: March 21, 2025 Dr. Theodore Mcmillan , DO Attending Provider Active Start: March 21, 2025 Goals (unrecognized section and content) Goals may [...] section and content) DATE CREATED AUTHOR 03/16/2025 [facility] DATE CREATED AUTHOR AUTHOR'S RACHELL ATJOSEY 03/20/2025 [facility] FOR RECORDS PERTAINING TO PATIENTS WHO [...] BE BASED ON THE PRIMARY CLINICAL RECORDS. [facility] [employer] [facility] provides no warranty or guarantee of the accuracy or completeness of information in this document.
--- OUTSIDE RECORDS SUMMARY | 2025-03-22 01:30 | XMS RPT_ITS | CCD ---
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 Cristian Adame MD Primary Care Provider Dr. Dionicio Grimes DO Attending Provider Dr. Dionicio Grimes DO Emergency Provider Dr. Cristian Adame MD Referring Provider Dr. Denny Moffett DO Attending Provider Dr. Denny Moffett DO Referring Provider [phone] Dr. Theodore Lynch MD Other Provider Unavailekaterina Zambrano MD, Dr. Hartley Other Provider Unavailable Theresa FIRST MATE-C, Tayler Attending Provider Theresa FIRST MATE-C, Tayler Referring Provider Dr. Regino Burleson MD Attending Provider Dr. Maria C Browning MD Other Provider Rosy FIRST MATE-C, Yelena Other Provider Dr. Regino Burleson MD Referring Provider Rosy FIRST MATE-C, Yelena Attending Provider Melisa NELSON, Dr. Becerra Attending Provider [phone] Melisa NELSON, Dr. Becerra Referring Provider [phone] Melisa NELSON, Dr. Becerra Other Provider Sarah Beth NELSON, Dr. Lacy Referring Provider Nallely NELSON, Dr. Lombardi Other Provider Rosy FIRST MATE-C, Yelena Other Provider Nallely NELSON, Dr. Lombardi Other Provider Rosy FIRST MATE-C, Yelena Other Provider Theresa FIRST MATE, Tayler Referring Unavailable Cardenas FIRST MATE, Tayler Attending Unavailable [place], [facility] Primary Care Unavailable Dionicio Grimes Attending Unavailable [place], [facility] Primary Care Unavailable Calabretta, Hernan Referring Unavailable Calabretta, Hernan Attending Unavailable [place], [facility] Primary Care Unavailable Cardenas FIRST MATE, Tayler Attending Unavailable [place], Cristian Referring Unavailable [place], [facility] Primary Care Unavailable [place], Hernan Referring Unavailable [place], Hernan Attending Unavailable [place], Hernan Consulting Unavailable [place], [facility] Primary Care Unavailable PrahRegino Attending Unavailable Cardenas FIRST MATE, Tayler Referring Unavailable [place], [facility] Primary Care Unavailable Rosy FIRST MATE, Yelena Attending Unavailable [place], [facility] Primary Care Unavailable [place], Cristian Referring Unavailable PrahRegino Referring Unavailable [place], Hernan Attending Unavailable [place], [facility] Primary Care Unavailable Rosy FIRST MATE, Yelena Attending Unavailable [place], [facility] Primary Care Unavailable [place], Cristian Referring Unavailable Cardenas FIRST MATE, Tayler Attending Unavailable [place], [facility] Primary Care Unavailable Wendi, Cristian Referring Unavailable PrahRegino Attending Unavailable Wendi, [facility] Primary Care Unavailable Wendi, Cristian Referring Unavailable BrownDenny Attending Unavailable [place], Cristian Referring Unavailable Wendi, [facility] Primary Care Unavailable Theodore Lynch Consulting Unavailable Brown, Denny Referring Unavailable BrownMarcik Attending Unavailable [place], [facility] Primary Care Unavailable Naeem Zambrano Consulting Unavailable Prah, Regino Referring Unavailable PraRegino staples Attending Unavailable Rosy FIRST MATE, Yelena Consulting Unavailable [place], Cristian Primary Care Unavailable Maria C Browning Consulting Unavailable Brown, Denny Referring Unavailable BrownMarcik Attending Unavailable [place], Cristian Primary Care Unavailable [facility], CRISTIAN Melton Primary Care Unavailable WENDI, CRISTIAN [...] Care Unavailable WENDI, CRISTIAN Melton Referring Unavailable [place] Dr. Cristian NELSON Primary Care Provider [phone] Dr. Denny Moffett DO Attending Provider Dr. Denny Moffett DO Referring Provider Dr. Cristian Adame MD Referring Provider [phone] Nallely NELSON, Dr. Lombardi Other Provider Rosy FIRST MATE-C, Yelena Other Provider Dr. Lindsay Clifton DO Emergency Provider Dr. Theodore Mcmillan DO Admit Provider Unavail able Dr. Theodore Mcmillan DO Attending Provider Unav ailable Allergies Allergy Classification Reported Allergen(s) Allergy Type Date of Onset Reaction(s) Facility (2 sources) amoxicillin / clavulanate drug allergy 12-03-19 17 [facility] Work Phone: (2 sources) sulfamethoxazole / trimethoprim drug allergy 12-03-19 17 [facility] Work Phone: (20 sources) Amoxicillin / Clavulanate; Translations: [AMOXICILLIN-POT CLAVULANATE] Drug Allergy 05-08-20 11 Diarrhea [facility] (20 sources) Sulfamethoxazole; Translations: [SULFAMETHOXAZOLE] Drug Allergy 06-27-20 12 Swelling [facility] (13 sources) Amoxicillin; Translations: [amoxicillin trihydrate] Drug Allergy 11-15-19 25 Nausea [facility] (12 sources) Trimethoprim Drug Allergy 11-15-19 25 Unknown [facility] (13 sources) potassium clavulanate; Translations: [potassium clavulanate] Propensity to adverse reactions 11-15-19 Nausea [facility] (1 source) Sulfamethoxazole Drug Allergy 03-08-20 [facility] (1 source) Trimethoprim Drug Allergy 03-08-20 [facility] Medications Current Medications Medication Drug Class(es) [...] Generalized enlarged lymph nodes polyethylene glycol 3350 [id number] mg powder for oral solution (3 sources) [...] Onset: 5 Episodic Other aftercare (1 source) care home (current) use of insulin; Translations: [Controlled type [...] (Unsp spec) [#/Vol] 0.69 10*3/uL Low 0.83-4.51 [facility] Absolute neutrophil countOrd ered By: Lindsay Clifton on 03-21-2025 Neutrophils (Bld) [#/Vol] 3.5 10*3/uL 2.0-7.7 [facility] Anion gap in Serum or Plasma Ordered By: Lindsay Clifton on 03-21-2025 Anion gap [Moles/Vol] 13 mmol/L 5-15 [facility] Automated lymphocyte count a s percentage of total leukocytesOrdered By: Lindsay Clifton on 03-21-2025 Lymphocytes/100 WBC Auto (Unsp spec) 14.6 % Low 19-41 [facility] BUN/creatinine ratioOrdered By: Lindsay Clifton on 03-21-2025 Urea nitrogen/Creatinine [Mass ratio] 10.9 mg/mg 10-20 [facility] Basophil percentageOrdered B y: Lindsay Clifton on 03-21-2025 Basophils/100 WBC (Bld) 0.8 % 0-1 W [facility] Bilirubin Test strip Ql (U)O rdered By: Lindsay Clifton on 03-21-2025 Bilirubin Ql (U) Negative Negative [facility] Bilirubin, totalOrdered By: Lindsay Clifton on 03-21-2025 Bilirubin [Mass/Vol] 0.70 mg/dL 0.00-1.30 [facility] Carbon dioxide, total [Moles /volume] in Central venous bloodOrdered By: Lindsay Clifton on 03-21-2025 CO2 [Moles/Vol] 20.9 mmol/L Low 21.0-32.0 [facility] Chloride assayOrdered By: Alexey Clifton on 03-21-2025 Chloride [Moles/Vol] 94 mmol/L Low 98-108 [facility] Eosinophil percentageOrdered By: Lindsay Clifton on 03-21-2025 Eosinophils/100 WBC (Bld) 0.2 % 0-5 [facility] Erythrocyte distribution wid th ratioOrdered By: Lindsay Clifton on 03-21-2025 Erythrocyte distribution width (RBC) [Ratio] 16.3 % High 11.6-14.6 [facility] Erythrocyte distribution wid th standard deviationOrdered By: Lindsay Clifton on 03-21-2025 Erythrocyte distribution width (RBC) [Ratio] 46.9 fl High 35.1-43.9 [facility] Glomerular filtration rate ( GFR) estimation/1.73 sq m using serum, plasma, or whole bOrdered By: Lindsay Clifton on 03-21-2025 GFR/1.73 sq M.predicted among non-blacks MDRD (S/P/Bld) [Vol rate/Area] 105 mL/min/{1.73_m2} >60 [facility] Comment on above: mL/min/1.73m2 CKD-EP I Creatinine Equation (2020) Hematocrit Auto (Bld) [Volum e fraction]Ordered By: Lindsay Clifton on 03-21-2025 Hematocrit (Bld) [Volume fraction] 28.6 % Low 40-54 [facility] Hemoglobin measurementOrdere d By: Lindsay Clifton on 03-21-2025 Hemoglobin (Bld) [Mass/Vol] 9.3 g/dL Low 13.0-16.5 [facility] Immature granulocytes/100 WB C Auto (Bld)Ordered By: Lindsay Clifton on 03-21-2025 Immature granulocytes/100 WBC (Bld) 1.100 % High 0.0-0.9 [facility] Comment on above: IG% - Immature Granu locytes (promyelocytes, myelocytes and metamyelocytes) > 1% indicates that a LEFT SHIFT is Present. Ketones Test strip Ql (U)Ord ered By: Lindsay Clifton on 03-21-2025 Ketones Ql (U) Negative Negative [facility] Laboratory - Chemistry and C hemistry - challengeOrdered By: Lindsay Clifton on 03-21-2025 AST [Catalytic activity/Vol] 29 U/L <38 [facility] Comment on above: Hemolysis present, R esults could be affected. Lipase measurementOrdered By : Lindsay Clifton on 03-21-2025 Lipase [Catalytic activity/Vol] 13 U/L 13-75 [facility] Comment on above: Please note:LIPASE r evised reference range effective 22. New Lipase methodology. Expected to produce lower values than the previous assay method. NEW Reference Range: 13 - 75 U/L MCV (mean corpuscular volume ) determinationOrdered By: Lindsay Clifton on 03-21-2025 MCV (RBC) [Entitic vol] 80.6 fL 80-94 W [facility] Mean corpuscular hemoglobin (MCH) determinationOrdered By: Lindsay Clifton on 03-21-2025 MCH (RBC) [Entitic mass] 26.2 pg Low 27.0-32.0 [facility] Mean corpuscular hemoglobin concentration (MCHC) determinationOrdered By: Lindsay Clifton on 03-21-2025 MCHC (RBC) [Mass/Vol] 32.5 g/dL 32-36 [facility] Mean platelet volume determi nationOrdered By: Lindsay Clifton on 03-21-2025 Platelet mean volume (Bld) [Entitic vol] 11.6 fL 6.2-12.0 [facility] Microscopic analysis of urin e for red blood cells (RBC)Ordered By: Lindsay Clifton on 03-21-2025 Microscopic analysis of urine for red blood cells (RBC) 0-5 SEEN /hpf 0-5 [facility] Monocyte percentageOrdered B y: Lindsay Clifton on 03-21-2025 Monocytes/100 WBC (Bld) 10.2 % High 0-10 W [facility] Mucus LM Ql (Urine sed)Order ed By: Lindsay Clifton on 03-21-2025 Mucus Ql (Urine sed) 0 SEEN /hpf [facility] Neutrophil percentageOrdered By: Lindsay Clifton on 03-21-2025 Neutrophils/100 WBC (Bld) 73.1 % High 47-70 [facility] Nitrite Test strip Ql (U)Ord ered By: Lindsay Clifton on 03-21-2025 Nitrite Ql (U) Negative Negative [facility] Nucleated red blood cell per centageOrdered By: Lindsay Clifton on 03-21-2025 Nucleated RBC/100 WBC (Bld) [Ratio] 0 % 0-5 [facility] Platelet countOrdered By: Alexey Clifton on 03-21-2025 Platelets (Bld) [#/Vol] 277 10*3/uL 150-450 [facility] Potassium measurement (mass/ volume)Ordered By: Lindsay Clifton on 03-21-2025 Potassium (Unsp spec) [Mass/Vol] 4.8 mmol/L 3.3-5.1 [facility] Comment on above: Hemolysis present, R esults could be affected. Protein Test strip Ql (U)Ord ered By: Lindsay Clifton on 03-21-2025 Protein Ql (U) 30 mg/dl High Negative [facility] RBC Auto (Bld) [#/Vol]Ordere d By: Lindsay Clifton on 03-21-2025 RBC (Bld) [#/Vol] 3.55 10*6/uL Low 4.6-6.2 [facility] Serum creatinine measurement (mass/volume)Ordered By: Lindsay Clifton on 03-21-2025 Creatinine [Mass/Vol] 0.87 mg/dL 0.70-1.20 [facility] Serum globulin measurementOr dered By: Lindsay Clifton on 03-21-2025 Globulin (S) [Mass/Vol] 3.9 g/dL 2.2-4.2 W [facility] Serum glucose measurement (m ass/volume)Ordered By: Lindsay Clifton on 03-21-2025 Glucose [Mass/Vol] 212 mg/dL High 70-99 [facility] Serum or plasma alanine montenegro otransferase (ALT) measurementOrdered By: Lindsay Clifton on 03-21-2025 ALT [Catalytic activity/Vol] 29 U/L <47 [facility] Serum or plasma albumin darien urement (mass/volume)Ordered By: Lindsay Clifton on 03-21-2025 Albumin [Mass/Vol] 2.8 g/dL Low 3.5-5.0 [facility] Serum or plasma albumin/glob ulin mass ratioOrdered By: Lindsay Clifton on 03-21-2025 Albumin/Globulin [Mass ratio] 0.7 {ratio} Low 0.9-2.4 [facility] Serum or plasma alkaline maría sphatase measurementOrdered By: Lindsay Clifton on 03-21-2025 ALP [Catalytic activity/Vol] 92 U/L 40-129 [facility] Serum or plasma calcium darien urement (mass/volume)Ordered By: Remus Clifton on 03-21-2025 Calcium [Mass/Vol] 8.9 mg/dL 7.6-11.0 [facility] Serum or plasma urea nitroge n measurement (mass/volume)Ordered By: Remus Elodia on 03-21-2025 Urea nitrogen [Mass/Vol] 9 mg/dL 4-19 [facility] Sodium levelOrdered By: Remu s Elodia on 03-21-2025 Sodium [Moles/Vol] 128 mmol/L Low 133-145 [facility] Squamous epithelial cells de tection in urine sediment by light microscopyOrdered By: Remus Elodia on 03-21-2025 Epithelial cells.squamous LM Ql (Urine sed) 0-5 SEEN /hpf 0-5 [facility] Total proteinOrdered By: Rem us Clifton on 03-21-2025 Protein [Mass/Vol] 6.7 g/dL 5.9-8.4 [facility] Urine clarityOrdered By: Rem us Clifton on 03-21-2025 Clarity (U) Clear Clear [facility] Urine color determinationOrd ered By: Remus Clifton on 03-21-2025 Color (U) Yellow Yellow [facility] Urine glucose detectionOrder ed By: Lindsay Clifton on 03-21-2025 Glucose Ql (U) Normal mg/dl Normal [facility] Urine leukocyte esterase det ection by dipstickOrdered By: Remus Clifton on 03-21-2025 Leukocyte esterase Test strip Ql (U) Negative Negative [facility] Urine pHOrdered By: Lindsay Baxter gur on 03-21-2025 pH (U) 6.5 [pH] 5.0 - 8.0 [facility] Urine sediment bacteria coun t by microscopy (number/high power field)Ordered By: Lindsay Clifton on 03-21-2025 Bacteria LM.HPF (Urine sed) [#/Area] 0 /[HPF] None Seen [facility] Urine specific gravity measu rementOrdered By: Remus Elodia on 03-21-2025 Specific gravity (U) [Rel density] 1.005 1.002-1.030 [facility] Urine urobilinogen measureme ntOrdered By: Remus Clifton on 03-21-2025 Urobilinogen Ql (U) 1 mg/dl High Normal [facility] White blood cell (WBC) count Ordered By: Leah Elodia on 03-21-2025 WBC (Bld) [#/Vol] 4.7 10*3/uL 4.4-11.0 [facility] White blood cell countOrdere d By: Lindsay Clifton on 03-21-2025 White blood cell count 0-5 SEEN /hpf 0-5 [facility] FACEHYUN RODRIGUEZ ([id number]) 1975 M Date Time Provider Department 03/19/25 CRISTIAN ADAME [facility] During your visit today, we recorded [...] Status:Closed by MARSHALL TRAN on 03/19/25 Normal [facility] Absolute lymphocyte countOrd ered By: Maria C Browning on 03-15-2025 Lymphocytes Auto (Unsp spec) [#/Vol] 0.84 10*3/uL 0.83-4.51 [facility] Absolute neutrophil countOrd ered By: Maria C Browning on 03-15-2025 Neutrophils (Bld) [#/Vol] 8.9 10*3/uL High 2.0-7.7 [facility] Automated lymphocyte count a s percentage of total leukocytesOrdered By: Maria C Browning on 03-15-2025 Lymphocytes/100 WBC Auto (Unsp spec) 7.5 % Low 19-41 [facility] Basophil percentageOrdered B y: Maria C Browning on 03-15-2025 Basophils/100 WBC (Bld) 0.4 % 0-1 W [facility] CBC W/Diff, Automatedon Absolute Lymph 0.84 X10 3/uL Normal 0.83-4.51 [facility] Comment on above: Performed By: #### L [id number], [id number], [id number] #### [facility] [address] [place], [address] Absolute Neut 8.9 X10 3/uL High 2.0-7.7 [facility] Comment on above: Performed By: #### L [id number], [id number], [id number] #### [facility] [address] [place], [address] Basophils/100 WBC (Bld) 0.4 % Normal 0-1 W [facility] Comment on above: Performed By: #### L [id number], [id number], [id number] #### [facility] [address] [place], [address] Eosinophils/100 WBC (Bld) 0.3 % Normal 0-5 [facility] Comment on above: Performed By: #### L [id number], [id number], [id number] #### [facility] [address] [place], [address] Erythrocyte distribution width (RBC) [Ratio] 16.3 % High 11.6-14.6 [facility] Comment on above: Performed By: #### L [id number], [id number], [id number] #### [facility] [address] [place], [address] Hematocrit (Bld) [Volume fraction] 27.3 % Low 40-54 [facility] Comment on above: Performed By: #### L [id number], [id number], [id number] #### [facility] [address] [place], [address] Hemoglobin (Bld) [Mass/Vol] 8.9 g/dL Low 13.0-16.5 [facility] Comment on above: Performed By: #### L [id number], [id number], [id number] #### [facility] [address] [place], [address] IG% 1.400 High 0.0-0.9 [facility] Comment on above: Result Comment: IG% - Immature Granulocytes (promyelocytes, myelocytes and metamyelocytes) > 1% indicates that a LEFT SHIFT is Present. Performed By: #### L [id number], [id number], [id number] #### [facility] [address] [place], [address] Lymphocytes/100 WBC (Bld) 7.5 % Low 19-41 [facility] Comment on above: Performed By: #### L [id number], [id number], [id number] #### [facility] [address] [place], [address] MCH (RBC) [Entitic mass] 26.0 pg Low 27.0-32.0 [facility] Comment on above: Performed By: #### L [id number], [id number], [id number] #### [facility] [address] [place], [address] MCHC (RBC) [Mass/Vol] 32.6 g/dL Normal 32-36 [facility] Comment on above: Performed By: #### L [id number], [id number], [id number] #### [facility] [address] [place], [address] MCV (RBC) [Entitic vol] 79.8 fL Low 80-94 [facility] Comment on above: Performed By: #### L [id number], [id number], [id number] #### [facility] [address] [place], [address] Monocytes/100 WBC (Bld) 10.4 % High 0-10 [facility] Comment on above: Performed By: #### L [id number], [id number], [id number] #### [facility] [address] [place], [address] Neutrophils/100 WBC (Bld) 80.0 % High 47-70 [facility] Comment on above: Performed By: #### L [id number], [id number], [id number] #### [facility] [address] [place], [address] Nucleated RBC (Bld) [#/Vol] 0 10*3/uL Normal 0-5 [facility] Comment on above: Performed By: #### L [id number], [id number], [id number] #### [facility] [address] [place], [address] Platelet mean volume (Bld) [Entitic vol] 10.7 fL Normal 6.2-12.0 [facility] Comment on above: Performed By: #### L [id number], [id number], [id number] #### [facility] [address] [place], [address] Platelets (Bld) [#/Vol] 331 10*3/uL Normal 150-450 [facility] Comment on above: Performed By: #### L [id number], [id number], [id number] #### [facility] [address] [place], [address] RBC (Bld) [#/Vol] 3.42 10*6/uL Low 4.6-6.2 [facility] Comment on above: Performed By: #### L [id number], [id number], [id number] #### [facility] [address] [place], [address] RDW SD 46.6 fl High 35.1-43.9 [facility] Comment on above: Performed By: #### L [id number], [id number], [id number] #### [facility] [address] [place], [address] WBC (Bld) [#/Vol] 11.1 10*3/uL High 4.4-11.0 [facility] Comment on above: Performed By: #### L [id number], [id number], [id number] #### [facility] [address] [place], [address] Eosinophil percentageOrdered By: Maria C Browning on 03-15-2025 Eosinophils/100 WBC (Bld) 0.3 % 0-5 [facility] Erythrocyte distribution wid th ratioOrdered By: Maria C Browning on 03-15-2025 Erythrocyte distribution width (RBC) [Ratio] 16.3 % High 11.6-14.6 [facility] Erythrocyte distribution wid th standard deviationOrdered By: Maria C Browning on 03-15-2025 Erythrocyte distribution width (RBC) [Ratio] 46.6 fl High 35.1-43.9 [facility] Hematocrit Auto (Bld) [Volum e fraction]Ordered By: Maria C Browning on 03-15-2025 Hematocrit (Bld) [Volume fraction] 27.3 % Low 40-54 [facility] Hemoglobin measurementOrdere d By: Maria C Browning on 03-15-2025 Hemoglobin (Bld) [Mass/Vol] 8.9 g/dL Low 13.0-16.5 [facility] Immature granulocytes/100 WB C Auto (Bld)Ordered By: Maria C Browning on 03-15-2025 Immature granulocytes/100 WBC (Bld) 1.400 % High 0.0-0.9 [facility] Comment on above: IG% - Immature Granu locytes (promyelocytes, myelocytes and metamyelocytes) > 1% indicates that a LEFT SHIFT is Present. MCV (mean corpuscular volume ) determinationOrdered By: Maria C Browning on 03-15-2025 MCV (RBC) [Entitic vol] 79.8 fL Low 80-94 W [facility] Mean corpuscular hemoglobin (MCH) determinationOrdered By: [facility] on 03-15-2025 MCH (RBC) [Entitic mass] 26.0 pg Low 27.0-32.0 [facility] Mean corpuscular hemoglobin concentration (MCHC) determinationOrdered By: Maria C Browning on 03-15-2025 MCHC (RBC) [Mass/Vol] 32.6 g/dL 32-36 [facility] Mean platelet volume determi nationOrdered By: Maria C Browning on 03-15-2025 Platelet mean volume (Bld) [Entitic vol] 10.7 fL 6.2-12.0 [facility] Monocyte percentageOrdered B y: Maria C Browning on 03-15-2025 Monocytes/100 WBC (Bld) 10.4 % High 0-10 W [facility] Neutrophil percentageOrdered By: [facility] on 03-15-2025 Neutrophils/100 WBC (Bld) 80.0 % High 47-70 [facility] Nucleated red blood cell per centageOrdered By: Maria C Browning on 03-15-2025 Nucleated RBC/100 WBC (Bld) [Ratio] 0 % 0-5 [facility] Platelet countOrdered By: Calli olmstead Nallely on 03-15-2025 Platelets (Bld) [#/Vol] 331 10*3/uL 150-450 [facility] RBC Auto (Bld) [#/Vol]Ordere d By: Maria C Nallely on 03-15-2025 RBC (Bld) [#/Vol] 3.42 10*6/uL Low 4.6-6.2 [facility] White blood cell (WBC) count Ordered By: Maria C Nallely on 03-15-2025 WBC (Bld) [#/Vol] 11.1 10*3/uL High 4.4-11.0 [facility] Absolute lymphocyte countOrd ered By: Maira C Nallely on 03-08-2025 Lymphocytes Auto (Unsp spec) [#/Vol] 0.90 10*3/uL 0.83-4.51 [facility] Absolute neutrophil countOrd ered By: Maria C Nallely on 03-08-2025 Neutrophils (Bld) [#/Vol] 11.3 10*3/uL High 2.0-7.7 [facility] Automated lymphocyte count a s percentage of total leukocytesOrdered By: Maria C Nallely on 03-08-2025 Lymphocytes/100 WBC Auto (Unsp spec) 6.5 % Low 19-41 [facility] Basophil percentageOrdered B y: Maria C Nallely on 03-08-2025 Basophils/100 WBC (Bld) 0.3 % 0-1 W [facility] CBC W/Diff, Automatedon 02-10 Absolute Lymph 0.90 X10 3/uL Normal 0.83-4.51 [facility] Comment on above: Performed By: #### L 501.5500, L501.7300, L501.7400 #### [facility] [address] [place], [place], [id number] Absolute Neut 11.3 X10 3/uL High 2.0-7.7 [facility] Comment on above: Performed By: #### L 501.5500, L501.7300, L501.7400 #### [facility] [address] [place], [address] Basophils/100 WBC (Bld) 0.3 % Normal 0-1 W [facility] Comment on above: Performed By: #### L 501.5500, L501.7300, L501.7400 #### [facility] [address] [place], [address] Eosinophils/100 WBC (Bld) 0.4 % Normal 0-5 [facility] Comment on above: Performed By: #### L 501.5500, L501.7300, L501.7400 #### [facility] [address] [place], [address] Erythrocyte distribution width (RBC) [Ratio] 15.7 % High 11.6-14.6 [facility] Comment on above: Performed By: #### L 501.5500, L501.7300, L501.7400 #### [facility] [address] [place], [address] Hematocrit (Bld) [Volume fraction] 29.3 % Low 40-54 [facility] Comment on above: Performed By: #### L 501.5500, L501.7300, L501.7400 #### [facility] [address] [place], [address] Hemoglobin (Bld) [Mass/Vol] 9.6 g/dL Low 13.0-16.5 [facility] Comment on above: Performed By: #### L 501.5500, L501.7300, L501.7400 #### [facility] [address] [place], [address] IG% 1.700 High 0.0-0.9 [facility] Comment on above: Result Comment: IG% - Immature Granulocytes (promyelocytes, myelocytes and metamyelocytes) > 1% indicates that a LEFT SHIFT is Present. Performed By: #### L 501.5500, L501.7300, L501.7400 #### [facility] [address] [place], [address] Lymphocytes/100 WBC (Bld) 6.5 % Low 19-41 [facility] Comment on above: Performed By: #### L 501.5500, L501.7300, L501.7400 #### [facility] [address] [place], [address] MCH (RBC) [Entitic mass] 26.0 pg Low 27.0-32.0 [facility] Comment on above: Performed By: #### L 501.5500, L501.7300, L501.7400 #### [facility] [address] [place], [address] MCHC (RBC) [Mass/Vol] 32.8 g/dL Normal 32-36 [facility] Comment on above: Performed By: #### L 501.5500, L501.7300, L501.7400 #### [facility] [address] [place], [address] MCV (RBC) [Entitic vol] 79.4 fL Low 80-94 W [facility] Comment on above: Performed By: #### L 501.5500, L501.7300, L501.7400 #### [facility] [address] [place], [address] Monocytes/100 WBC (Bld) 9.3 % Normal 0-10 [facility] Comment on above: Performed By: #### L 501.5500, L501.7300, L501.7400 #### [facility] [address] [place], [address] Neutrophils/100 WBC (Bld) 81.8 % High 47-70 [facility] Comment on above: Performed By: #### L 501.5500, L501.7300, L501.7400 #### [facility] [address] [place], [address] Nucleated RBC (Bld) [#/Vol] 0 10*3/uL Normal 0-5 [facility] Comment on above: Performed By: #### L 501.5500, L501.7300, L501.7400 #### [facility] [address] [place], [address] Platelet mean volume (Bld) [Entitic vol] 10.0 fL Normal 6.2-12.0 [facility] Comment on above: Performed By: #### L 501.5500, L501.7300, L501.7400 #### [facility] [address] [place], [address] Platelets (Bld) [#/Vol] 381 10*3/uL Normal 150-450 [facility] Comment on above: Performed By: #### L 501.5500, L501.7300, L501.7400 #### [facility] [address] [place], [address] RBC (Bld) [#/Vol] 3.69 10*6/uL Low 4.6-6.2 [facility] Comment on above: Performed By: #### L 501.5500, L501.7300, L501.7400 #### [facility] [address] [place], [address] RDW SD 45.5 fl High 35.1-43.9 [facility] Comment on above: Performed By: #### L 501.5500, L501.7300, L501.7400 #### [facility] [address] [place], [address] WBC (Bld) [#/Vol] 13.8 10*3/uL High 4.4-11.0 [facility] Comment on above: Performed By: #### L 501.5500, L501.7300, L501.7400 #### [facility] [address] [place], [address] Eosinophil percentageOrdered By: [facility] Brow[facility] on 03-08-2025 Eosinophils/100 WBC (Bld) 0.4 % 0-5 [facility] Erythrocyte distribution wid th ratioOrdered By: [facility] Nallely on 03-08-2025 Erythrocyte distribution width (RBC) [Ratio] 15.7 % High 11.6-14.6 [facility] Erythrocyte distribution wid th standard deviationOrdered By: [facility] on 03-08-2025 Erythrocyte distribution width (RBC) [Ratio] 45.5 fl High 35.1-43.9 [facility] Hematocrit Auto (Bld) [Volum e fraction]Ordered By: [facility] Nallely on 03-08-2025 Hematocrit (Bld) [Volume fraction] 29.3 % Low 40-54 [facility] Hemoglobin measurementOrdere d By: [facility] on 03-08-2025 Hemoglobin (Bld) [Mass/Vol] 9.6 g/dL Low 13.0-16.5 [facility] Immature granulocytes/100 WB C Auto (Bld)Ordered By: [facility] on 03-08-2025 Immature granulocytes/100 WBC (Bld) 1.700 % High 0.0-0.9 [facility] Comment on above: IG% - Immature Granu locytes (promyelocytes, myelocytes and metamyelocytes) > 1% indicates that a LEFT SHIFT is Present. MCV (mean corpuscular volume ) determinationOrdered By: Maria C Browning on 03-08-2025 MCV (RBC) [Entitic vol] 79.4 fL Low 80-94 W [facility] Mean corpuscular hemoglobin (MCH) determinationOrdered By: [facility] Nallely on 03-08-2025 MCH (RBC) [Entitic mass] 26.0 pg Low 27.0-32.0 [facility] Mean corpuscular hemoglobin concentration (MCHC) determinationOrdered By: [facility] Nalleyl on 03-08-2025 MCHC (RBC) [Mass/Vol] 32.8 g/dL 32-36 [facility] Mean platelet volume determi nationOrdered By: Maria C Browning on 03-08-2025 Platelet mean volume (Bld) [Entitic vol] 10.0 fL 6.2-12.0 [facility] Monocyte percentageOrdered B y: Maria C Browning on 03-08-2025 Monocytes/100 WBC (Bld) 9.3 % 0-10 W [facility] Neutrophil percentageOrdered By: [facility] on 03-08-2025 Neutrophils/100 WBC (Bld) 81.8 % High 47-70 [facility] Nucleated red blood cell per centageOrdered By: [facility] Nallely on 03-08-2025 Nucleated RBC/100 WBC (Bld) [Ratio] 0 % 0-5 [facility] Oncology Visit Reporton 02-10 Oncology Visit Report [facility] [place] [facility] [address] [place] [address] OFFICE VISIT Date of Service: 03/08/25 0859 MR#: [id number] Acct: [id number] Name: HYUN ELIAS Rep #: [id number] : 1975 From: Regino Burleson MD Age/Sex: 49/M [place] [facility] Status: Signed HPI Subjective Date of Service [...] Had dizzines after D1 but now fine. [facility] Medical History Constipation Encounter for antineoplastic chemotherapy [...] Auscultation: n (more content not included)... Normal [facility] Platelet countOrdered By: Calli Browning on 03-08-2025 Platelets (Bld) [#/Vol] 381 10*3/uL 150-450 [facility] RBC Auto (Bld) [#/Vol]Ordere d By: Maria C Browning on 03-08-2025 RBC (Bld) [#/Vol] 3.69 10*6/uL Low 4.6-6.2 [facility] White blood cell (WBC) count Ordered By: Maria C Browning on 03-08-2025 WBC (Bld) [#/Vol] 13.8 10*3/uL High 4.4-11.0 [facility] Pulmonary Visit Reporton Pulmonary Visit Report [facility] [place] [address] [place] [address] OFFICE VISIT Date of Service: 03/07/25 MR#: [id number] Acct: [id number] Name: HYUN ELIAS Rep #: [id number] : 1975 Provider: RODRIGUEZ Cardenas Age/Sex: 49/M [place] [facility] Status: Signed Assessment and Plan Assessment and [...] We will perform an overnight oximetry through [facility] to see if the patient would qualify [...] Additional Comments: This note was generated with [employer] dictation software. It may contain incorrect words, [...] 2025. If you recall, he has a [id number] smoking history. He quit 2 months ago. [...] room air Intake Visit Reasons: Acute visit [employer] Required: No DME Vendor: N/a Accompanied by: [...] His tory (more content not included)... Normal [facility] Absolute lymphocyte countOrd ered By: Maria C Browning on 03-01-2025 Lymphocytes Auto (Unsp spec) [#/Vol] 1.13 10*3/uL 0.83-4.51 [facility] Absolute neutrophil countOrd ered By: Maria C Browning on 03-01-2025 Neutrophils (Bld) [#/Vol] 11.2 10*3/uL High 2.0-7.7 [facility] Anion gap in Serum or Plasma Ordered By: Maria C Browning on 03-01-2025 Anion gap [Moles/Vol] 14 mmol/L 5-15 [facility] Automated blood erythrocyte countOrdered By: Maria C Browning on 03-01-2025 RBC (Bld) [#/Vol] 3.90 10*6/uL Low 4.6-6.2 [facility] Comment on above: Performed By: #### L 100.0100, L506.0400, L501.6120, L500.4050 #### [facility] [address] [place], [address] Automated blood hematocrit ( percentage)Ordered By: Maria C Browning on 03-01-2025 Hematocrit (Bld) [Volume fraction] 31.4 % Low 40-54 [facility] Comment on above: Performed By: #### L 100.0100, L506.0400, L501.9520, L500.4050 #### [facility] [address] [place], [address] Automated lymphocyte count a s percentage of total leukocytesOrdered By: Maria C Coffeydallin on 03-01-2025 Lymphocytes/100 WBC Auto (Unsp spec) 8.4 % Low 19- [facility] BUN/creatinine ratioOrdered By: Maria C Coffeydallin on 03-01-2025 Urea nitrogen/Creatinine [Mass ratio] 12.9 mg/mg 10- [facility] Basophil percentageOrdered B y: Maria C Coffeysiena on 03-01-2025 Basophils/100 WBC (Bld) 0.7 % Normal 0-1 W [facility] Comment on above: Performed By: #### L 100.0100, L506.0400, L501.9520, L500.4050 #### [facility] [address] [place], [address] Bilirubin, totalOrdered By: Maria C Coffeydallin on 03-01-2025 Bilirubin [Mass/Vol] 0.44 mg/dL 0.00-1.30 [facility] CBC W/Diff, Automatedon 02-10 Absolute Lymph 1.13 X10 3/uL Normal 0.83-4.51 [facility] Comment on above: Performed By: #### L 100.0100, L506.0400, L501.9520, L500.4050 #### [facility] [address] [place], [address] Absolute Neut 11.2 X10 3/uL High 2.0-7.7 [facility] Comment on above: Performed By: #### L 100.0100, L506.0400, L501.9520, L500.4050 #### [facility] [address] [place], [address] IG% 0.900 Normal 0.0-0.9 [facility] Comment on above: Result Comment: IG% - Immature Granulocytes (promyelocytes, myelocytes and metamyelocytes) > 1% indicates that a LEFT SHIFT is Present. Performed By: #### L 100.0100, L506.0400, L501.9520, L500.4050 #### [facility] [address] [place], [address] Lymphocytes/100 WBC (Bld) 8.4 % Low 19-41 [facility] Comment on above: Performed By: #### L 100.0100, L506.0400, L501.9520, L500.4050 #### [facility] [address] [place], [address] Nucleated RBC (Bld) [#/Vol] 0 10*3/uL Normal 0-5 [facility] Comment on above: Performed By: #### L 100.0100, L506.0400, L501.9520, L500.4050 #### [facility] [address] [place], [address] RDW SD 46.1 fl High 35.1-43.9 [facility] Comment on above: Performed By: #### L 100.0100, L506.0400, L501.9520, L500.4050 #### [facility] [address] [place], [address] Carbon dioxide, total [Moles /volume] in Central venous bloodOrdered By: Maria C Browning on 03-01-2025 CO2 [Moles/Vol] 21.0 mmol/L 21.0-32.0 [facility] Chloride assayOrdered By: Calli Browning on 03-01-2025 Chloride [Moles/Vol] 90 mmol/L Low 98-108 [facility] Comprehensive Metabolic Prof ilon 03-01-2025 Albumin [Mass/Vol] 2.9 g/dL Low 3.5-5.0 [facility] Comment on above: Performed By: #### L 100.0100, L506.0400, L501.9520, L500.4050 #### [facility] [address] [place], [address] Albumin/Globulin [Mass ratio] 0.6 {ratio} Low 0.9-2.4 [facility] Comment on above: Performed By: #### L 100.0100, L506.0400, L501.9520, L500.4050 #### [facility] [address] [place], [address] ALK PHOS 88 U/L Normal 40-129 [facility] Comment on above: Performed By: #### L 100.0100, L506.0400, L501.9520, L500.4050 #### [facility] [address] [place], [address] ALT [Catalytic activity/Vol] 15 U/L Normal <=46 [facility] Comment on above: Performed By: #### L 100.0100, L506.0400, L501.9520, L500.4050 #### [facility] [address] [place], [address] AST [Catalytic activity/Vol] 30 U/L Normal <=37 [facility] Comment on above: Performed By: #### L 100.0100, L506.0400, L501.9520, L500.4050 #### [facility] [address] [place], [address] Bilirubin [Mass/Vol] 0.44 mg/dL Normal 0.00-1.30 [facility] Comment on above: Performed By: #### L 100.0100, L506.0400, L501.9520, L500.4050 #### [facility] [address] [place], [address] BUN/CRE 12.9 RATIO Normal 10-20 [facility] Comment on above: Performed By: #### L 100.0100, L506.0400, L501.9520, L500.4050 #### [facility] [address] [place], [address] Calcium [Mass/Vol] 9.3 mg/dL Normal 7.6-11.0 [facility] Comment on above: Performed By: #### L 100.0100, L506.0400, L501.9520, L500.4050 #### [facility] [address] [place], [address] Chloride [Moles/Vol] 90 mmol/L Low 98-108 [facility] Comment on above: Performed By: #### L 100.0100, L506.0400, L501.9520, L500.4050 #### [facility] [address] [place], [address] CO2 [Moles/Vol] 21.0 mmol/L Normal 21.0-32.0 [facility] Comment on above: Performed By: #### L 100.0100, L506.0400, L501.9520, L500.4050 #### [facility] [address] [place], [address] Creatinine [Mass/Vol] 0.82 mg/dL Normal 0.70-1.20 [facility] Comment on above: Performed By: #### L 100.0100, L506.0400, L501.9520, L500.4050 #### [facility] [address] [place], [address] ECRCL 96.41 ml/min Normal 50-250 [facility] Comment on above: Performed By: #### L 100.0100, L506.0400, L501.9520, L500.4050 #### [facility] [address] [place], [address] GAP 14 Normal 5-15 [facility] Comment on above: Performed By: #### L 100.0100, L506.0400, L501.9520, L500.4050 #### [facility] [address] [place], [address] GFR/1.73 sq M.predicted among non-blacks MDRD (S/P/Bld) [Vol rate/Area] 106 mL/min/{1.73_m2} Normal >60 [facility] Comment on above: Result Comment: mL/m in/1.73m2 CKD-EPI Creatinine Equation (2020) Performed By: #### L 100.0100, L506.0400, L501.9520, L500.4050 #### [facility] [address] [place], [address] Globulin (S) [Mass/Vol] 5.1 g/dL High 2.2-4.2 [facility] Comment on above: Performed By: #### L 100.0100, L506.0400, L501.9520, L500.4050 #### [facility] [address] [place], [address] Glucose [Mass/Vol] 274 mg/dL High 70-99 [facility] Comment on above: Performed By: #### L 100.0100, L506.0400, L501.9520, L500.4050 #### [facility] [address] [place], [address] Potassium [Moles/Vol] 4.5 mmol/L Normal 3.3-5.1 [facility] Comment on above: Performed By: #### L 100.0100, L506.0400, L501.9520, L500.4050 #### [facility] [address] [place], [address] Sodium [Moles/Vol] 125 mmol/L Low 133-145 [facility] Comment on above: Performed By: #### L 100.0100, L506.0400, L501.9520, L500.4050 #### [facility] [address] [place], [address] T PROT 8.0 g/dL Normal 5.9-8.4 [facility] Comment on above: Performed By: #### L 100.0100, L506.0400, L501.9520, L500.4050 #### [facility] [address] [place], [address] Urea nitrogen [Mass/Vol] 11 mg/dL Normal 4-19 [facility] Comment on above: Performed By: #### L 100.0100, L506.0400, L501.9520, L500.4050 #### [facility] [address] [place], [address] Eosinophil percentageOrdered By: Maria C Browning on 03-01-2025 Eosinophils/100 WBC (Bld) 1.1 % Normal 0-5 [facility] Comment on above: Performed By: #### L 100.0100, L506.0400, L501.9520, L500.4050 #### [facility] [address] [place], [address] Erythrocyte distribution wid th ratioOrdered By: Maria C Browning on 03-01-2025 Erythrocyte distribution width (RBC) [Ratio] 15.9 % High 11.6-14.6 [facility] Comment on above: Performed By: #### L 100.0100, L506.0400, L501.9520, L500.4050 #### [facility] [address] [place], [address] Erythrocyte distribution wid th standard deviationOrdered By: Maria C Browning on 03-01-2025 Erythrocyte distribution width (RBC) [Ratio] 46.1 fl High 35.1-43.9 [facility] Glomerular filtration rate ( GFR) estimation/1.73 sq m using serum, plasma, or whole bOrdered By: Maria C Browning on 03-01-2025 GFR/1.73 sq M.predicted among non-blacks MDRD (S/P/Bld) [Vol rate/Area] 106 mL/min/{1.73_m2} >60 [facility] Comment on above: mL/min/1.73m2 CKD-EP I Creatinine Equation (2020) Hemoglobin measurementOrdere d By: Maria C Browning on 03-01-2025 Hemoglobin (Bld) [Mass/Vol] 10.1 g/dL Low 13.0-16.5 [facility] Comment on above: Performed By: #### L 100.0100, L506.0400, L501.9520, L500.4050 #### [facility] [address] [facility] [place], [address] Immature granulocytes/100 WB C Auto (Bld)Ordered By: Maria C Browning on 03-01-2025 Immature granulocytes/100 WBC (Bld) 0.900 % 0.0-0.9 [facility] Comment on above: IG% - Immature Granu locytes (promyelocytes, myelocytes and metamyelocytes) > 1% indicates that a LEFT SHIFT is Present. Laboratory - Chemistry and C hemistry - challengeOrdered By: Maria C Browning on 03-01-2025 AST [Catalytic activity/Vol] 30 U/L <38 [facility] MCV (mean corpuscular volume ) determinationOrdered By: Maria C Browning on 03-01-2025 MCV (RBC) [Entitic vol] 80.5 fL Normal 80-94 W [facility] Comment on above: Performed By: #### L 100.0100, L506.0400, L501.9520, L500.4050 #### [facility] [address] [facility] [place], [address] Mean corpuscular hemoglobin (MCH) determinationOrdered By: Maria C Browning on 03-01-2025 MCH (RBC) [Entitic mass] 25.9 pg Low 27.0-32.0 [facility] Comment on above: Performed By: #### L 100.0100, L506.0400, L501.9520, L500.4050 #### [facility] [address] [place], [address] Mean corpuscular hemoglobin concentration (MCHC) determinationOrdered By: Maria C Browning on 03-01-2025 MCHC (RBC) [Mass/Vol] 32.2 g/dL Normal 32-36 [facility] Comment on above: Performed By: #### L 100.0100, L506.0400, L501.9520, L500.4050 #### [facility] [address] [place], [address] Mean platelet volume determi nationOrdered By: Maria C Browning on 03-01-2025 Platelet mean volume (Bld) [Entitic vol] 9.6 fL Normal 6.2-12.0 [facility] Comment on above: Performed By: #### L 100.0100, L506.0400, L501.9520, L500.4050 #### [facility] [address] [place], [address] Monocyte percentageOrdered B y: Maria C Browning on 03-01-2025 Monocytes/100 WBC (Bld) 5.8 % Normal 0-10 W [facility] Comment on above: Performed By: #### L 100.0100, L506.0400, L501.9520, L500.4050 #### [facility] [address] [place], [address] Neutrophil percentageOrdered By: Didiersarahy Browning on 03-01-2025 Neutrophils/100 WBC (Bld) 83.1 % High 47-70 [facility] Comment on above: Performed By: #### L 100.0100, L506.0400, L501.9520, L500.4050 #### [facility] [address] [place], [address] Nucleated red blood cell per centageOrdered By: Maria C Browning on 03-01-2025 Nucleated RBC/100 WBC (Bld) [Ratio] 0 % 0-5 [facility] Oncology Visit Reporton 02-10 Oncology Visit Report [facility] [place] [address] OFFICE VISIT Date of Service: 03/01/25 0831 MR#: [id number] Acct: [id number] Name: HYUN ELIAS Rep #: [id number] : 1975 From: Yelena Gallegos NP FIRST MATE -C Age/Sex: 49/M Location[facility] Status: Signed HPI Subjective Date of Service [...] headache, chest pain, palpitations, wheezing, numbness tingling. [facility] Medical History (Updated 03/01/25 @ 10:42 by Yelena Gallegos FIRST MATE, FIRST MATE-C) Encounter for antineoplastic chemotherapy and immunotherapy Hyponatremia [...] for chronic (more content not included)... Normal [facility] Osmolality urOrdered By: Flor Gallegos on 03-01-2025 Osmolality (U) [Osmolality] 410 mOsm/KG >50 [facility] Comment on above: Normal Urine Referen ce Ranges Random: 50 - 1200 mOsm/kg H20 depending on fluid intake Random: >850 mOsm/kg after 12 hour fluid restriction 24 hour: ~300 - 900 mOsm/kg H2O Osmolality, Serumon 03-01-20 OSMOLALITY,SER 276 mOsm/KG Normal 275-295 [facility] Comment on above: Performed By: #### L 501.5500, L501.7300, L501.7400 #### [facility] [address] [place], [address] Osmolality, Urineon 03-01-20 OSMOLALITY,UR 410 mOsm/KG Normal [facility] Comment on above: Result Comment: Normal Urine Reference Ranges Random: 50 - 1200 mOsm/kg H20 depending on fluid intake Random: >850 mOsm/kg after 12 hour fluid restriction 24 hour: 300 - 900 mOsm/kg H2O Performed By: #### L 501.5500, L501.7300, L501.7400 #### [facility] [address] [place], [place], [address] Platelet countOrdered By: Calli Browning on 03-01-2025 Platelets (Bld) [#/Vol] 532 10*3/uL High 150-450 [facility] Comment on above: Performed By: #### L 100.0100, L506.0400, L501.9520, L500.4050 #### [facility] [address] [place], [address] Potassium measurement (mass/ volume)Ordered By: Maria C Browning on 03-01-2025 Potassium (Unsp spec) [Mass/Vol] 4.5 mmol/L 3.3-5.1 [facility] Serum creatinine measurement (mass/volume)Ordered By: Maria C Browning on 03-01-2025 Creatinine [Mass/Vol] 0.82 mg/dL 0.70-1.20 [facility] Serum globulin measurementOr dered By: Maria C Browning on 03-01-2025 Globulin (S) [Mass/Vol] 5.1 g/dL High 2.2-4.2 W [facility] Serum glucose measurement (m ass/volume)Ordered By: Maria C Browning on 03-01-2025 Glucose [Mass/Vol] 274 mg/dL High 70-99 [facility] Serum or plasma alanine montenegro otransferase (ALT) measurementOrdered By: Maria C Browning on 03-01-2025 ALT [Catalytic activity/Vol] 15 U/L <47 [facility] Serum or plasma albumin darien urement (mass/volume)Ordered By: Maria C Browning on 03-01-2025 Albumin [Mass/Vol] 2.9 g/dL Low 3.5-5.0 [facility] Serum or plasma albumin/glob ulin mass ratioOrdered By: Maria C Browning on 03-01-2025 Albumin/Globulin [Mass ratio] 0.6 {ratio} Low 0.9-2.4 [facility] Serum or plasma alkaline maría sphatase measurementOrdered By: Maria C Browning on 03-01-2025 ALP [Catalytic activity/Vol] 88 U/L 40-129 [facility] Serum or plasma calcium darien urement (mass/volume)Ordered By: Maria C Nallely on 03-01-2025 Calcium [Mass/Vol] 9.3 mg/dL 7.6-11.0 [facility] Serum or plasma urea nitroge n measurement (mass/volume)Ordered By: Maria C Nallely on 03-01-2025 Urea nitrogen [Mass/Vol] 11 mg/dL 4-19 [facility] Sodium levelOrdered By: Didier weathers Nallely on 03-01-2025 Sodium [Moles/Vol] 125 mmol/L Low 133-145 [facility] T4 Free Directon 03-01-2025 T4 FREE DIRECT 1.20 ng/dL Normal 0.76-1.46 [facility] Comment on above: Performed By: #### L 100.0100, L506.0400, L501.9520, L500.4050 #### [facility] [address] [place], [address] T4 freeOrdered By: Didiersarahy painter on 03-01-2025 Free T4 [Mass/Vol] 1.20 ng/dL 0.76-1.46 [facility] TSH DL <= 0.005 mIU/L QnOrde red By: Didiersarahy Browning on 03-01-2025 TSH Qn 3.950 uIU/mL 0.300-4.200 [facility] Thyroid Stim Hormone (TSH)on 03-01-2025 TSH 3.950 uIU/mL Normal 0.300-4.200 [facility] Comment on above: Performed By: #### L 100.0100, L506.0400, L501.9520, L500.4050 #### [facility] [address] [place], [address] Total proteinOrdered By: Abran kellogg Nallely on 03-01-2025 Protein [Mass/Vol] 8.0 g/dL 5.9-8.4 [facility] Urine Sodiumon 03-01-2025 Sodium (U) [Moles/Vol] 30 mmol/L Normal Not Establ. [facility] Comment on above: Performed By: #### L 501.5500, L501.7300, L501.7400 #### [facility] [address] [place], [address] Urine sodium measurement (mo les/volume)Ordered By: Yelena Gallegos on 03-01-2025 Sodium (U) [Moles/Vol] 30 mmol/L Not Establ. [facility] White blood cell (WBC) count Ordered By: Maria C Browning on 03-01-2025 WBC (Bld) [#/Vol] 13.5 10*3/uL High 4.4-11.0 [facility] Comment on above: Performed By: #### L 100.0100, L506.0400, L501.9520, L500.4050 #### [facility] [address] [place], [address] CBC W/Diff, Automatedon 02-09 Absolute Neut Normal 2.0-7.7 [facility] Comment on above: Result Comment: Canc elled via OM: moving to RCR account Performed By: #### L 501.5500, L501.7300, L501.7400 #### [facility] [address] [place], [address] HCT Normal 40-54 [facility] Comment on above: Result Comment: Canc elled via OM: moving to RCR account Performed By: #### L 501.5500, L501.7300, L501.7400 #### [facility] [address] [place], [address] HGB Normal 13.0-16.5 [facility] Comment on above: Result Comment: Canc elled via OM: moving to RCR account Performed By: #### L 501.5500, L501.7300, L501.7400 #### [facility] [address] [place], [address] MCH Normal 27.0-32.0 [facility] Comment on above: Result Comment: Canc elled via OM: moving to RCR account Performed By: #### L 501.5500, L501.7300, L501.7400 #### [facility] [address] [place], [address] MCHC Normal 32-36 [facility] Comment on above: Result Comment: Canc elled via OM: moving to RCR account Performed By: #### L 501.5500, L501.7300, L501.7400 #### [facility] [address] [place], [address] MCV Normal 80-94 [facility] Comment on above: Result Comment: Canc elled via OM: moving to RCR account Performed By: #### L 501.5500, L501.7300, L501.7400 #### [facility] [address] [place], [address] NEUT% Normal 47-70 [facility] Comment on above: Result Comment: Canc elled via OM: moving to RCR account Performed By: #### L 501.5500, L501.7300, L501.7400 #### [facility] [address] [place], [address] PLT Normal 150-450 [facility] Comment on above: Result Comment: Canc elled via OM: moving to RCR account Performed By: #### L 501.5500, L501.7300, L501.7400 #### [facility] [address] [place], [address] RBC Normal 4.6-6.2 [facility] Comment on above: Result Comment: Canc elled via OM: moving to RCR account Performed By: #### L 501.5500, L501.7300, L501.7400 #### [facility] [address] [place], [address] RDW CV Normal 11.6-14.6 [facility] Comment on above: Result Comment: Canc elled via OM: moving to RCR account Performed By: #### L 501.5500, L501.7300, L501.7400 #### [facility] [address] [place], [address] RDW SD Normal 35.1-43.9 [facility] Comment on above: Result Comment: Canc elled via OM: moving to RCR account Performed By: #### L 501.5500, L501.7300, L501.7400 #### [facility] [address] [place], [address] WBC Normal 4.4-11.0 [facility] Comment on above: Result Comment: Canc elled via OM: moving to RCR account Performed By: #### L 501.5500, L501.7300, L501.7400 #### [facility] [address] [place], [address] Comprehensive Metabolic Prof ilon 02-22-2025 ALB Normal 3.5-5.0 [facility] Comment on above: Result Comment: Canc elled via OM: moving to RCR account Performed By: #### L 501.5500, L501.7300, L501.7400 #### [facility] [address] [place], [address] ALK PHOS Normal 40-129 [facility] Comment on above: Result Comment: Canc elled via OM: moving to RCR account Performed By: #### L 501.5500, L501.7300, L501.7400 #### [facility] [address] [place], [address] ALT Normal <=46 [facility] Comment on above: Result Comment: Canc elled via OM: moving to RCR account Performed By: #### L 501.5500, L501.7300, L501.7400 #### [facility] [address] [place], [address] AST Normal <=37 [facility] Comment on above: Result Comment: Canc elled via OM: moving to RCR account Performed By: #### L 501.5500, L501.7300, L501.7400 #### [facility] [address] [place], [address] BUN Normal 4-19 [facility] Comment on above: Result Comment: Canc elled via OM: moving to RCR account Performed By: #### L 501.5500, L501.7300, L501.7400 #### [facility] [address] [place], [address] BUN/CRE Normal 10-20 [facility] Comment on above: Result Comment: Canc elled via OM: moving to RCR account Performed By: #### L 501.5500, L501.7300, L501.7400 #### [facility] [address] [place], [address] Calcium Normal 7.6-11.0 [facility] Comment on above: Result Comment: Canc elled via OM: moving to RCR account Performed By: #### L 501.5500, L501.7300, L501.7400 #### [facility] [address] [place], [address] CL Normal 98-108 [facility] Comment on above: Result Comment: Canc elled via OM: moving to RCR account Performed By: #### L 501.5500, L501.7300, L501.7400 #### [facility] [address] [place], [address] CO2 Normal 21.0-32.0 [facility] Comment on above: Result Comment: Canc elled via OM: moving to RCR account Performed By: #### L 501.5500, L501.7300, L501.7400 #### [facility] [address] [place], [address] CREAT,SERUM Normal 0.70-1.20 [facility] Comment on above: Result Comment: Canc elled via OM: moving to RCR account Performed By: #### L 501.5500, L501.7300, L501.7400 #### [facility] [address] [place], [address] eGFR Normal >60 [facility] Comment on above: Result Comment: Canc elled via OM: moving to RCR account Performed By: #### L 501.5500, L501.7300, L501.7400 #### [facility] [address] [place], [address] GAP Normal 5-15 [facility] Comment on above: Result Comment: Canc elled via OM: moving to RCR account Performed By: #### L 501.5500, L501.7300, L501.7400 #### [facility] [address] [place], [address] GLU Normal 70-99 [facility] Comment on above: Result Comment: Canc elled via OM: moving to RCR account Performed By: #### L 501.5500, L501.7300, L501.7400 #### [facility] [address] [place], [address] Potassium Normal 3.3-5.1 [facility] Comment on above: Result Comment: Canc elled via OM: moving to RCR account Performed By: #### L 501.5500, L501.7300, L501.7400 #### [facility] [address] [place], [address] T BILI Normal 0.00-1.30 [facility] Comment on above: Result Comment: Canc elled via OM: moving to RCR account Performed By: #### L 501.5500, L501.7300, L501.7400 #### [facility] [address] [place], [address] T PROT Normal 5.9-8.4 [facility] Comment on above: Result Comment: Canc elled via OM: moving to RCR account Performed By: #### L 501.5500, L501.7300, L501.7400 #### [facility] [address] [place], [address] Comprehensive Metabolic Profil Normal 133-145 [facility] Comment on above: Result Comment: Canc elled via OM: moving to RCR account Performed By: #### L 501.5500, L501.7300, L501.7400 #### [facility] [address] [place], [address] Bedside Glucoseon 02-20-2025 FINGERSTICK GLU 215 mg/dL High 74-106 [facility] Comment on above: Result Comment: MOLLY PERSON OF PATIENT CARE PER NURSING PROTOCOL Performed By: #### L 501.080 #### [facility] [address] [place], [address] CXR for Line Placementon CXR for Line Placement [facility] Imaging Services [address] [place] [address] CXR for Line Placement MR#: [id number] Acct: [id number] Name: HYUN ELIAS Rep #: [id number] : 1975 M 49 From: Franky Borden MD PCP: Dr. Cristian Adame MD Status: [facility] Study: CXR for Line Placement Date of Exam: 02/20/25 Exam# [id number] Ordering Dr: Hernan Vincent PROCEDURE: CXR FOR [...] the right port. No pneumothorax. Reading Location: [id number] CC: Dr. Hernan Vincent MD; Dr. Cristian Adame MD Senior Examiner: Signed Normal [facility] Discharge Instructionon 02-09 Discharge Instruction [facility] Medical Records Department [address] [place] [address] Instructions for Home/Discharge Instructions 02/20/25 1131 MR#: [id number] Acct: [id number] Name: HYUN ELIAS Rep #: [id number] : 1975 49 From: Hernan Vincent MD PCP: Dr. Cristian Adame MD Status:REG [facility] Discharge Instructions Procedure Port-A-Cath Diet Discharge Diet: [...] With: Hernan Vincent MD When: as needed [phone] Test Results: Test results from this visit will be discussed in further detail at your follow-up appointment, if applicable. Discharge Plan Admission Attending Provider: Hernan Vincent Primary Care Provider: Cristian Adame Instructions Print Language: Nepalese Discharge Orders/Prescriptions Prescriptions: No Action folic acid [...] MD CC: Dr. Cristian Adame MD Signed [facility] Glucose measurement at [facility] deOrdered By: Hernan Vincent on 02-20-2025 Glucose [Mass/Vol] 215 mg/dL High 74-106 [facility] Comment on above: MANAGEMENT OF PATIEN T CARE PER NURSING PROTOCOL MR/POSTOP.David 02-20-2025 MR/POSTOP.[facility] Medical Records Department [address] [place] [address] Anesthesia Postop Eval I 02/20/25 1135 MR#: [id number] Acct: [id number] Name: HYUN ELAIS Rep #: [id number] : 1975 49 From: Ana Viramontes CRNA PCP: Dr. Cristian Adame MD Status:REG SDC Y Race: C Location: [place] [address] Anesthesia: Postop Eval I Current Vital Signs [...] CRNA Cosigner Signature: Date CC: Signed Normal [facility] Operative Reporton 5 Operative Report [facility] Medical Records Department [address] [place] [address] Operative Report 02/20/25 1130 MR#: [id number] Acct: [id number] Name: HYUN ELIAS Rep #: [id number] : 1975 49 From: Hernan Vincent MD PCP: Dr. Cristian Adame MD Status:[facility] Location: [place] [address] Operative Report (Standard) Operative Information Date of Procedure: 02/20/25 Pre-Operative Diagnosis: Need for vascular access for chemotherapy for lung cancer Post-Operative Diagnosis: Same Surgery/Procedure Performed: Ultrasound and fluoroscopy guided right chest port placement utilizing right IJ oracle programmer: No Type of Anesthesia: Local MAC RN Documented Start/Stop Times: Operation Date: 02/20/25 11:00 Case Time Into Pre-Op 02/20/25 09:13 Out of Pre-Op 02/20/25 10:53 Anesthesia Start 02/20/25 10:55 Into Room 02/20/25 10:55 Procedure Start 02/20/25 11:13 Procedure End 02/20/25 11:26 Procedure Start Time: 11:13 Procedure Stop Time: 11:26 Select all DRAINS/GRAFTS/IMPLANTS that apply: Implanted device Implanted device details: 8 [place] [employer] Estimated Blood Loss: 5 Specimen collected: [...] MD; Dr. Cristian Adame MD [facility]igned [facility] (FAMPWS ) HYUN ELIAS ([id number]) 1975 M Date Time Provider Department 02/16/25 [...] try calorie-rich drinks such as Ensure or [place] Instant Breakfast to help maintain your weight. - Port placement is scheduled at the hospital on the to prepare for chemotherapy access--please arrive as planned. - Your oncology team will begin chemo-immunotherapy with Abraxane, carboplatin, and pembrolizumab; stay in close contact with them for treatment dates and instructions. - All new and adjusted prescriptions have been sent to [facility] for your convenience. - Call or [...] facility-administered medicat (more content not included)... Normal [facility] MR/Mukesh 02-15-2025 MR/PAT.[place] [facility] Medical Records Department [address] [place] [address] PAT - Anesthesia 02/15/25 1656 MR#: [id number] Acct: [id number] Name: HYUN ELIAS Rep #: [id number] : 1975 49 From: Naeem Carter MD PCP: Dr. Cristian Adame MD Status:PRE [facility] Y Race: C Location: [facility] Pre-Assessment Diagnosis/Proposed Procedure Planned Operative Procedure(s): INSERTION VASCULAR PORT RIGHT POSSIBLE LEFT Anesthesia History Anesthesia History - mri tech: Anesthesia History - mri tech Hx Hospitalization No 02/15/25 15:09 Any Problems [...] take am of surgery PONV PONV - mri tech: PONV - mri tech Female No 02/15/25 15:09 HX of Motion [...] 02/12/25 14:31 Respiratory Assessment Respiratory Assessment - mri tech: Respiratory Tract Infection Hx - mri tech Hx Respiratory Tract Infection No 02/15/25 15:09 STOP Sleep Apnea STOP Sleep Apnea - mri tech: STOP Sleep Apnea - mri tech Hx Hypertension No 02/15/25 15:09 Hx Sleep [...] Tobacco Use History Tobacco Use History - mri tech: Tobacco Use History - mri tech Tobacco Use Smoking Status Former smoker 02/15/25 15:09 Hx Tobacco Use Yes 02/15/25 15:09 Years Smoking Packs Smoked per Day Smoking Cessation Date was Yes - quit smoking within 15 02/15/25 15:09 within the last 15 years years Hx Smoking Cessation Date Hx Smoking Cessation Counseling Hematologic Medial History Hematologic Hx - mri tech: 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 Normal [facility] Surgery Visit Reporton 02-15 Surgery Visit Report [facility] [address] [place] [address] OFFICE VISIT Date of Service: 02/15/25 MR#: [id number] Acct: [id number] Name: HYUN ELIAS Rep #: [id number] : 1975 Provider: Dr. Hernan mulligan MD Age/Sex: 49/M Location: [facility] Status: Signed Intake Vital Signs 02/12/25 14:31 [...] to proc (more content not included)... Normal [facility] ([id number]) 1975 M Date Time Provider Department 02/13/25 CRISTIAN ADAME During your visit today, we recorded the following information about you: Emelia Mcclendon RN 02/13/2025 3:59 PM Signed Patient's partner Trudy Rcie calling in. States pt has been diagnosed with Stage IV lung cancer with metastasis. Sees [facility]. Pt to be getting an [...] medication. Please call Trudy back with reply. [phone] DOLORES Mendoza, Cristian Melton MD 02/13/2025 4:20 [...] Status:Closed by RAIZA RODRIGEZ on 02/13/25 Normal [facility] Oncology Visit Reporton Oncology Visit Report [facility] [address] [place] [address] OFFICE VISIT Date of Service: 02/13/25 1643 MR#: [id number] Acct: [id number] Name: HYUN ELIAS DANY Rep #: [id number] : 1975 From: Yelena Gallegos NP FIRST MATE -C Age/Sex: 49/M Location[facility] Status: Signed HPI Subjective Date of Service [...] education visit to discuss Abraxane, carboplatin, pembrolizumab. [facility] Medical History (Updated 02/13/25 @ 16:57 by Yelena Gallegos NP, [facility]) Encounter for education Surgical History History of [...] and pr (more content not included)... Normal [facility] Absolute lymphocyte countOrd ered By: [facility] on 02-12-2025 Lymphocytes Auto (Unsp spec) [#/Vol] 1.02 10*3/uL 0.83-4.51 [facility] Absolute neutrophil countOrd ered By: [facility] on 02-12-2025 Neutrophils (Bld) [#/Vol] 7.8 10*3/uL High 2.0-7.7 [facility] Anion gap in Serum or Plasma Ordered By: Regino Calderon on 02-12-2025 Anion gap [Moles/Vol] 12 mmol/L 5-15 [facility] Automated lymphocyte count a s percentage of total leukocytesOrdered By: [facility] on 02-12-2025 Lymphocytes/100 WBC Auto (Unsp spec) 10.5 % Low 19-41 [facility] BUN/creatinine ratioOrdered By: [facility] on 02-12-2025 Urea nitrogen/Creatinine [Mass ratio] 12.9 mg/mg 10-20 [facility] Basophil percentageOrdered B y: [facility] on 02-12-2025 Basophils/100 WBC (Bld) 0.8 % 0-1 W [facility] Bilirubin, totalOrdered By: [facility] on 02-12-2025 Bilirubin [Mass/Vol] 0.49 mg/dL 0.00-1.30 [facility] CBC W/Diff, Automatedon Absolute Lymph 1.02 X10 3/uL Normal 0.83-4.51 [facility] Comment on above: Performed By: #### L 500.4050, L100.0100, L501.2300, L504.2610, L501.5200 #### [facility] Laboratory [address] [place], [address] Absolute Neut 7.8 X10 3/uL High 2.0-7.7 [facility] Comment on above: Performed By: #### L 500.4050, L100.0100, L501.2300, L504.2610, L501.5200 #### [facility] Laboratory [address] [place], [address] Basophils/100 WBC (Bld) 0.8 % Normal 0-1 W [facility] Comment on above: Performed By: #### L 500.4050, L100.0100, L501.2300, L504.2610, L501.5200 #### [facility] Laboratory [address] [place], [address] Eosinophils/100 WBC (Bld) 1.0 % Normal 0-5 [facility] Comment on above: Performed By: #### L 500.4050, L100.0100, L501.2300, L504.2610, L501.5200 #### [facility] Laboratory [address] [place], [address] Erythrocyte distribution width (RBC) [Ratio] 15.2 % High 11.6-14.6 [facility] Comment on above: Performed By: #### L 500.4050, L100.0100, L501.2300, L504.2610, L501.5200 #### [facility] Laboratory [address] [place], [address] Hematocrit (Bld) [Volume fraction] 32.7 % Low 40-54 [facility] Comment on above: Performed By: #### L 500.4050, L100.0100, L501.2300, L504.2610, L501.5200 #### [facility] Laboratory [address] [place], [address] Hemoglobin (Bld) [Mass/Vol] 10.4 g/dL Low 13.0-16.5 [facility] Comment on above: Performed By: #### L 500.4050, L100.0100, L501.2300, L504.2610, L501.5200 #### [facility] Laboratory [address] [place], [address] IG% 0.700 Normal 0.0-0.9 [facility] Comment on above: Result Comment: IG% - Immature Granulocytes (promyelocytes, myelocytes and metamyelocytes) > 1% indicates that a LEFT SHIFT is Present. Performed By: #### L 500.4050, L100.0100, L501.2300, L504.2610, L501.5200 #### [facility] Laboratory [address] [place], [address] Lymphocytes/100 WBC (Bld) 10.5 % Low 19-41 [facility] Comment on above: Performed By: #### L 500.4050, L100.0100, L501.2300, L504.2610, L501.5200 #### [facility] Laboratory [address] [place], [address] MCH (RBC) [Entitic mass] 25.9 pg Low 27.0-32.0 [facility] Comment on above: Performed By: #### L 500.4050, L100.0100, L501.2300, L504.2610, L501.5200 #### [facility] Laboratory [address] [place], [address] MCHC (RBC) [Mass/Vol] 31.8 g/dL Low 32-36 [facility] Comment on above: Performed By: #### L 500.4050, L100.0100, L501.2300, L504.2610, L501.5200 #### [facility] Laboratory [address] [place], [address] MCV (RBC) [Entitic vol] 81.5 fL Normal 80-94 W [facility] Comment on above: Performed By: #### L 500.4050, L100.0100, L501.2300, L504.2610, L501.5200 #### [facility] Laboratory [address] [place], [address] Monocytes/100 WBC (Bld) 6.9 % Normal 0-10 W [facility] Comment on above: Performed By: #### L 500.4050, L100.0100, L501.2300, L504.2610, L501.5200 #### [facility] Laboratory [address] [place], [address] Neutrophils/100 WBC (Bld) 80.1 % High 47-70 [facility] Comment on above: Performed By: #### L 500.4050, L100.0100, L501.2300, L504.2610, L501.5200 #### [facility] Laboratory [address] [place], [address] Nucleated RBC (Bld) [#/Vol] 0 10*3/uL Normal 0-5 [facility] Comment on above: Performed By: #### L 500.4050, L100.0100, L501.2300, L504.2610, L501.5200 #### [facility] Laboratory [address] [place], [address] Platelet mean volume (Bld) [Entitic vol] 9.9 fL Normal 6.2-12.0 [facility] Comment on above: Performed By: #### L 500.4050, L100.0100, L501.2300, L504.2610, L501.5200 #### [facility] Laboratory [address] [place], [address] Platelets (Bld) [#/Vol] 493 10*3/uL High 150-450 [facility] Comment on above: Performed By: #### L 500.4050, L100.0100, L501.2300, L504.2610, L501.5200 #### [facility] Laboratory [address] [place], [address] RBC (Bld) [#/Vol] 4.01 10*6/uL Low 4.6-6.2 [facility] Comment on above: Performed By: #### L 500.4050, L100.0100, L501.2300, L504.2610, L501.5200 #### [facility] Laboratory [address] [place], [address] RDW SD 45.8 fl High 35.1-43.9 [facility] Comment on above: Performed By: #### L 500.4050, L100.0100, L501.2300, L504.2610, L501.5200 #### [facility] Laboratory [address] [place], [address] WBC (Bld) [#/Vol] 9.7 10*3/uL Normal 4.4-11.0 [facility] Comment on above: Performed By: #### L 500.4050, L100.0100, L501.2300, L504.2610, L501.5200 #### [facility] Laboratory [address] [place], [address] Carbon dioxide, total [Moles /volume] in Central venous bloodOrdered By: Regino Burleson on 02-12-2025 CO2 [Moles/Vol] 21.6 mmol/L 21.0-32.0 [facility] Chloride assayOrdered By: Sandie Burleson on 02-12-2025 Chloride [Moles/Vol] 92 mmol/L Low 98-108 [facility] Comprehensive Metabolic Prof ilon 02-12-2025 Albumin [Mass/Vol] 3.1 g/dL Low 3.5-5.0 [facility] Comment on above: Performed By: #### L 501.5500, L501.7300, L501.7400 #### [facility] Laboratory [address] [place], [address] Albumin/Globulin [Mass ratio] 0.6 {ratio} Low 0.9-2.4 [facility] Comment on above: Performed By: #### L 501.5500, L501.7300, L501.7400 #### [facility] Laboratory [address] [place], [address] ALK PHOS 95 U/L Normal 40-129 [facility] Comment on above: Performed By: #### L 501.5500, L501.7300, L501.7400 #### [facility] Laboratory [address] [place], [address] ALT [Catalytic activity/Vol] 27 U/L Normal <=46 [facility] Comment on above: Performed By: #### L 501.5500, L501.7300, L501.7400 #### [facility] Laboratory [address] [place], [address] AST [Catalytic activity/Vol] 31 U/L Normal <=37 [facility] Comment on above: Performed By: #### L 501.5500, L501.7300, L501.7400 #### [facility] Laboratory [address] [place], [address] Bilirubin [Mass/Vol] 0.49 mg/dL Normal 0.00-1.30 [facility] Comment on above: Performed By: #### L 501.5500, L501.7300, L501.7400 #### [facility] Laboratory [address] [place], [address] BUN/CRE 12.9 RATIO Normal 10-20 [facility] Comment on above: Performed By: #### L 501.5500, L501.7300, L501.7400 #### [facility] Laboratory [address] [place], [address] Calcium [Mass/Vol] 9.2 mg/dL Normal 7.6-11.0 [facility] Comment on above: Performed By: #### L 501.5500, L501.7300, L501.7400 #### [facility] Laboratory [address] [place], [address] Chloride [Moles/Vol] 92 mmol/L Low 98-108 [facility] Comment on above: Performed By: #### L 501.5500, L501.7300, L501.7400 #### [facility] Laboratory [address] [place], [address] CO2 [Moles/Vol] 21.6 mmol/L Normal 21.0-32.0 [facility] Comment on above: Performed By: #### L 501.5500, L501.7300, L501.7400 #### [facility] Laboratory [address] [place], [address] Creatinine [Mass/Vol] 0.84 mg/dL Normal 0.70-1.20 [facility] Comment on above: Performed By: #### L 501.5500, L501.7300, L501.7400 #### [facility] Laboratory [address] [place], [address] GAP 12 Normal 5-15 [facility] Comment on above: Performed By: #### L 501.5500, L501.7300, L501.7400 #### [facility] [address] [place], [address] GFR/1.73 sq M.predicted among non-blacks MDRD (S/P/Bld) [Vol rate/Area] 106 mL/min/{1.73_m2} Normal >60 [facility] Comment on above: Result Comment: mL/m in/1.73m2 CKD-EPI Creatinine Equation (2020) Performed By: #### L 501.5500, L501.7300, L501.7400 #### [facility] Laboratory [address] [place], [address] Globulin (S) [Mass/Vol] 4.8 g/dL High 2.2-4.2 [facility] Comment on above: Performed By: #### L 501.5500, L501.7300, L501.7400 #### [facility] Laboratory [address] [place], [address] Glucose [Mass/Vol] 277 mg/dL High 70-99 [facility] Comment on above: Performed By: #### L 501.5500, L501.7300, L501.7400 #### [facility] Laboratory [address] [place], [address] Potassium [Moles/Vol] 4.3 mmol/L Normal 3.3-5.1 [facility] Comment on above: Performed By: #### L 501.5500, L501.7300, L501.7400 #### [facility] Laboratory [address] [place], [address] Sodium [Moles/Vol] 126 mmol/L Low 133-145 [facility] Comment on above: Performed By: #### L 501.5500, L501.7300, L501.7400 #### [facility] [address] [place], [address] T PROT 7.9 g/dL Normal 5.9-8.4 [facility] Comment on above: Performed By: #### L 501.5500, L501.7300, L501.7400 #### [facility] Laboratory [address] [place], [address] Urea nitrogen [Mass/Vol] 11 mg/dL Normal 4-19 [facility] Comment on above: Performed By: #### L 501.5500, L501.7300, L501.7400 #### [facility] Laboratory [address] [place], [place], [address] Eosinophil percentageOrdered By: [facility] on 02-12-2025 Eosinophils/100 WBC (Bld) 1.0 % 0-5 [facility] Erythrocyte distribution wid th ratioOrdered By: [facility] on 02-12-2025 Erythrocyte distribution width (RBC) [Ratio] 15.2 % High 11.6-14.6 [facility] Erythrocyte distribution wid th standard deviationOrdered By: [facility] on 02-12-2025 Erythrocyte distribution width (RBC) [Ratio] 45.8 fl High 35.1-43.9 [facility] Glomerular filtration rate ( GFR) estimation/1.73 sq m using serum, plasma, or whole bOrdered By: [facility] on 02-12-2025 GFR/1.73 sq M.predicted among non-blacks MDRD (S/P/Bld) [Vol rate/Area] 106 mL/min/{1.73_m2} >60 [facility] Comment on above: mL/min/1.73m2 CKD-EP I Creatinine Equation (2020) Hematocrit Auto (Bld) [Volum e fraction]Ordered By: [facility] on 02-12-2025 Hematocrit (Bld) [Volume fraction] 32.7 % Low 40-54 [facility] Hemoglobin measurementOrdere d By: [facility] on 02-12-2025 Hemoglobin (Bld) [Mass/Vol] 10.4 g/dL Low 13.0-16.5 [facility] Immature granulocytes/100 WB C Auto (Bld)Ordered By: Regino Burleson on 02-12-2025 Immature granulocytes/100 WBC (Bld) 0.700 % 0.0-0.9 [facility] Comment on above: IG% - Immature Granu locytes (promyelocytes, myelocytes and metamyelocytes) > 1% indicates that a LEFT SHIFT is Present. LDHon 02-12-2025 LDH 113 U/L Normal 87-241 [facility] Comment on above: Order Comment: 1 Performed By: #### L 501.5500, L501.7300, L501.7400 #### [facility] Laboratory [address] [place], [address] Laboratory - Chemistry and C hemistry - challengeOrdered By: Regino Burleson on 02-12-2025 AST [Catalytic activity/Vol] 31 U/L <38 [facility] Lactate dehydrogenase (LDH) measurementOrdered By: Regino Burleson on 02-12-2025 LDH [Catalytic activity/Vol] 113 U/L 87-241 [facility] MCV (mean corpuscular volume ) determinationOrdered By: Regino Burleson on 02-12-2025 MCV (RBC) [Entitic vol] 81.5 fL 80-94 W [facility] Magnesiumon 02-12-2025 Magnesium [Mass/Vol] 1.7 mg/dL Normal 1.5-2.2 [facility] Comment on above: Performed By: #### L 501.5500, L501.7300, L501.7400 #### [facility] Laboratory [address] [place], [address] Magnesium measurement (mass/ volume)Ordered By: Regino Burleson on 02-12-2025 Magnesium (Unsp spec) [Mass/Vol] 1.7 mg/dL 1.5-2.2 [facility] Mean corpuscular hemoglobin (MCH) determinationOrdered By: Regino Burleson on 02-12-2025 MCH (RBC) [Entitic mass] 25.9 pg Low 27.0-32.0 [facility] Mean corpuscular hemoglobin concentration (MCHC) determinationOrdered By: Regino Burleson on 02-12-2025 MCHC (RBC) [Mass/Vol] 31.8 g/dL Low 32-36 [facility] Mean platelet volume determi nationOrdered By: Regino Burleson on 02-12-2025 Platelet mean volume (Bld) [Entitic vol] 9.9 fL 6.2-12.0 [facility] Monocyte percentageOrdered B y: Regino Burleson on 02-12-2025 Monocytes/100 WBC (Bld) 6.9 % 0-10 W [facility] Neutrophil percentageOrdered By: Regino Burleson on 02-12-2025 Neutrophils/100 WBC (Bld) 80.1 % High 47-70 [facility] Nucleated red blood cell per centageOrdered By: Regino Burleson on 02-12-2025 Nucleated RBC/100 WBC (Bld) [Ratio] 0 % 0-5 [facility] Oncology Visit Reporton Oncology Visit Report [facility] [place] [address] OFFICE VISIT Date of Service: 02/12/25 1420 MR#: [id number] Acct: [id number] Name: HYUN ELIAS Rep #: [id number] : 1975 From: Regino Burleosn MD Age/Sex: 49/M Location[facility] Status: Signed HPI Subjective Date of Service [...] he is being given narcotics by PCP. [facility] Surgical History History of hernia surgery History [...] to palpa (more content not included)... Normal [facility] Phosphoruson 02-12-2025 Phosphate [Mass/Vol] 3.4 mg/dL Normal 2.7-4.5 [facility] Comment on above: Performed By: #### L 501.5500, L501.7300, L501.7400 #### [facility] [address] [place], [address] Platelet countOrdered By: Sandie Burleson on 02-12-2025 Platelets (Bld) [#/Vol] 493 10*3/uL High 150-450 [facility] Potassium measurement (mass/ volume)Ordered By: Regino Burleosn on 02-12-2025 Potassium (Unsp spec) [Mass/Vol] 4.3 mmol/L 3.3-5.1 [facility] RBC Auto (Bld) [#/Vol]Ordere d By: Regino Burleson on 02-12-2025 RBC (Bld) [#/Vol] 4.01 10*6/uL Low 4.6-6.2 [facility] Serum creatinine measurement (mass/volume)Ordered By: Regino Burleson on 02-12-2025 Creatinine [Mass/Vol] 0.84 mg/dL 0.70-1.20 [facility] Serum globulin measurementOr dered By: Regino Burleson on 02-12-2025 Globulin (S) [Mass/Vol] 4.8 g/dL High 2.2-4.2 W [facility] Serum glucose measurement (m ass/volume)Ordered By: Regino Burleson on 02-12-2025 Glucose [Mass/Vol] 277 mg/dL High 70-99 [facility] Serum or plasma alanine montenegro otransferase (ALT) measurementOrdered By: Regino Burleson on 02-12-2025 ALT [Catalytic activity/Vol] 27 U/L <47 [facility] Serum or plasma albumin darien urement (mass/volume)Ordered By: Regino Burleson on 02-12-2025 Albumin [Mass/Vol] 3.1 g/dL Low 3.5-5.0 [facility] Serum or plasma albumin/glob ulin mass ratioOrdered By: Regino Burleson on 02-12-2025 Albumin/Globulin [Mass ratio] 0.6 {ratio} Low 0.9-2.4 [facility] Serum or plasma alkaline maría sphatase measurementOrdered By: Regino Burleson on 02-12-2025 ALP [Catalytic activity/Vol] 95 U/L 40-129 [facility] Serum or plasma calcium darien urement (mass/volume)Ordered By: Regino Burleson on 02-12-2025 Calcium [Mass/Vol] 9.2 mg/dL 7.6-11.0 [facility] Serum or plasma urea nitroge n measurement (mass/volume)Ordered By: Regino Burleson on 02-12-2025 Urea nitrogen [Mass/Vol] 11 mg/dL 4-19 [facility] Sodium levelOrdered By: Junior Burleson on 02-12-2025 Sodium [Moles/Vol] 126 mmol/L Low 133-145 [facility] Total proteinOrdered By: Refugio Burleson on 02-12-2025 Protein [Mass/Vol] 7.9 g/dL 5.9-8.4 [facility] White blood cell (WBC) count Ordered By: Regino Burleson on 02-12-2025 WBC (Bld) [#/Vol] 9.7 10*3/uL 4.4-11.0 [facility] Positron emission tomography scan reportOrdered By: Theodore Lynch on 02-07-2025 PT Unspecified body region [facility] Imaging Services [address] [place], [place] [id number] PET/CT Tumor Base -Thigh Init MR#: [id number] Acct: [id number] Name: HYUN ELIAS Rep #: [id number] : 1975 M 49 From: Edy Lynch MD PCP: Dr. Cristian Adame MD Status: REG C SARATH Study:PET/CT Tumor Base -Thigh Init Date of E xam: 02/06/25 Exam# [id number] Ordering Dr: Edy Cardenas NP [facility] PROCEDURE: PET/CT TUMOR BASE -THIGH INIT 02/06/2025 [...] PET will be reported separately. Reading Location: [place] [address] CC: RODRIGUEZ Cardenas; Dr. Cristian Adame MD ~ Senior Examiner: Signed [facility] PET/CT Tumor Base -Thigh Ini ton 02-06-2025 PET/CT Tumor Base -Thigh Init [facility] Imaging Services [address] [place] [address] PET/CT Tumor Base -Thigh Init MR#: [id number] Acct: [id number] Name: HYUN ELIAS Rep #: [id number] : 1975 M 49 From: Theodore Julian PCP: Dr. Cristian Adame MD Status: REG CLI Study: PET/CT Tumor Base -Thigh Init Date of Exam: Exam# [id number] Ordering Dr: Tayler Cardenas FIRST MATE FIRST [facility]ATE-C PROCEDURE: PET/CT TUMOR BASE -THIGH INIT 02/06/2025 [...] PET will be reported separately. Reading Location: [place] [address] CC: [facility]C Tayler Cardenas; Dr. Cristian Adame MD Senior Examiner: Signed Normal [facility] Urinalysis complete panel (U )on 02-01-2025 Bacteria LM.HPF (Urine sed) [#/Area] Negative Normal Negative [facility] Comment on above: Order Comment: Speci men Type: URINE SPECIMENOrdering Facility: [facility] Address: [address] [place] [address] Performed By: #### 2 4356-8 ####[facility] [id number] [place] [address] [place] Bilirubin Ql (U) Negative Normal Negative [facility] Comment on above: Order Comment: Speci men Type: URINE SPECIMENOrdering Facility: [facility] Address: [address] [place] [address] Performed By: #### 2 4356-8 ####[facility] [id number] [place] [address] [place] CALCIUM OXALATE CRYSTALS (UA) Few Abnormal None Seen [facility] Comment on above: Order Comment: Speci men Type: URINE SPECIMENOrdering Facility: [facility] Address: [address] [place] [address] Performed By: #### 2 4356-8 ####[facility] [id number] [place] [id number] [place] Clarity (Unsp spec) Clear Normal Clear [facility] Comment on above: Order Comment: Speci men Type: URINE SPECIMENOrdering Facility: [facility] Address: [address] [place] [address] Performed By: #### 2 4356-8 ####[facility] [id number] [place] [id number] [place] Color (U) Yellow Normal Yellow [facility] Comment on above: Order Comment: Speci men Type: URINE SPECIMENOrdering Facility: [facility] Address: [address] [place] [address] Performed By: #### 2 4356-8 ####[facility] [id number] [address], [place] [address] [place] Epithelial cells LM.HPF (Urine sed) [#/Area] None Seen Normal [facility] Comment on above: Order Comment: Speci men Type: URINE SPECIMENOrdering Facility: [facility] Address: [address] [place] [address] Performed By: #### 2 4356-8 ####[facility] [id number] [address], [place] [address] [place] Glucose Test strip (U) [Mass/Vol] 3+ Abnormal Negative [facility] Comment on above: Order Comment: Speci men Type: URINE SPECIMENOrdering Facility: [facility] Address: [address] [place] [address] Performed By: #### 2 4356-8 ####[facility] [id number] [facility] [address], [facility] [place] Hemoglobin Ql (U) Negative Normal Negative [facility] Comment on above: Order Comment: Speci men Type: URINE SPECIMENOrdering Facility: [facility] Address: [address] [place] [address] Performed By: #### 2 4356-8 ####[facility] [id number] [facility] [address], [facility] [place] Hyaline casts (Urine sed) [#/Area] 1-3 /LPF Abnormal 0 /LPF [facility] Comment on above: Order Comment: Speci men Type: URINE SPECIMENOrdering Facility: [facility] Address: [address] [place] [address] Performed By: #### 2 4356-8 ####[place] [facility] [id number] [facility] [address] [place] [address] [place] Ketones Ql (U) Negative Normal Negative [facility] Comment on above: Order Comment: Speci men Type: URINE SPECIMENOrdering Facility: [facility] Address: [address] [place] [address] Performed By: #### 2 4356-8 ####[place] [facility] [id number] [address], [place] [address] [place] Leukocyte esterase Test strip Ql (U) Negative Normal Negative [facility] Comment on above: Order Comment: Speci men Type: URINE SPECIMENOrdering Facility: [facility] Address: [address] [place] [address] Performed By: #### 2 4356-8 ####[place] [facility] [id number] [place] [address] [place] Nitrite Ql (U) Negative Normal Negative [facility] Comment on above: Order Comment: Speci men Type: URINE SPECIMENOrdering Facility: [facility] Address: [address] [place] [address] Performed By: #### 2 4356-8 ####[place] [facility] [id number] [place] [address] [place] pH (U) 6.0 [pH] Normal 5.0-8.0 [facility] Comment on above: Order Comment: Speci men Type: URINE SPECIMENOrdering Facility: [facility] Address: [address] [place] [address] Performed By: #### 2 4356-8 ####[place] [facility] [id number] [address], [facility]95 [place] Protein (U) [Mass/Vol] Negative Normal Negative [facility] Comment on above: Order Comment: Speci men Type: URINE SPECIMENOrdering Facility: [facility] Address: [address] [place] [address] Performed By: #### 2 4356-8 ####[place] [facility] [id number] [facility] [id number] RBC LM.HPF (Urine sed) [#/Area] 0-2 /HPF Normal 0-2 /HPF [facility] Comment on above: Order Comment: Speci men Type: URINE SPECIMENOrdering Facility: [facility] Address: [address] [place] [address] Performed By: #### 2 4356-8 ####[place] [facility] [id number] [address] STATES [facility] Specific gravity (U) [Rel density] 1.029 Normal 1.005-1.030 [facility] Comment on above: Order Comment: Speci men Type: URINE SPECIMENOrdering Facility: [facility] Address: [address] [place] [address] Performed By: #### 2 4356-8 ####[facility] [id number] [address] Urobilinogen Ql (U) 1.0 EU/dL Normal 0.2-1.0 EU/dL [facility] Comment on above: Order Comment: Speci men Type: URINE SPECIMENOrdering Facility: [facility] Address: [address] [place] [address] Performed By: #### 2 4356-8 ####[facility] [id number] [address] WBC LM.HPF (Urine sed) [#/Area] 0-5 /HPF Normal 0-5 /HPF [facility] Comment on above: Order Comment: Speci men Type: URINE SPECIMENOrdering Facility: [facility] Address: [address] [place] [address] Performed By: #### 2 4356-8 ####[place] [facility] [id number] [place] [address] [place] CBC W Auto Differential pane l (Bld)on 01-30-2025 Basophils (Bld) [#/Vol] 0.10 10*3/uL Normal <0.11 [facility] Comment on above: Order Comment: Speci men Type: BLOOD SPECIMENOrdering Facility: [facility] Address: [address] [place] [address] Performed By: #### 5 7021-8 ####[place] [facility] [id number] [address] [place] [address] [place] Basophils/100 WBC (Bld) 1.0 % Normal [facility] Comment on above: Order Comment: Speci men Type: BLOOD SPECIMENOrdering Facility: [facility] Address: [address] [place] [address] Performed By: #### 5 7021-8 ####[place] [facility] [id number] [address], [place] [address] [place] Differential cell count method Nom (Bld) Auto Normal [facility] Comment on above: Order Comment: Speci men Type: BLOOD SPECIMENOrdering Facility: [facility] Address: [address] [place] [address] Performed By: #### 5 7021-8 ####[facility] [facility] [id number] [place] [address] [place] Eosinophils (Bld) [#/Vol] 0.14 10*3/uL Normal <0.46 [facility] Comment on above: Order Comment: Speci men Type: BLOOD SPECIMENOrdering Facility: [facility] Address: [address] [place] [address] Performed By: #### 5 7021-8 ####[place] [facility] [id number] [place] [address] [place] Eosinophils/100 WBC (Bld) 1.3 % Normal [facility] Comment on above: Order Comment: Speci men Type: BLOOD SPECIMENOrdering Facility: [facility] Address: [address] [place] [address] Performed By: #### 5 7021-8 ####[place] [facility] [id number] [place] [address] [place] Erythrocyte distribution width (RBC) [Ratio] 15.0 % Normal 11.5-15.0 [facility] Comment on above: Order Comment: Speci men Type: BLOOD SPECIMENOrdering Facility: [facility] Address: [address] [place] [address] Performed By: #### 5 7021-8 ####[place] [facility] [id number] [place] [address] [place] Hematocrit (Bld) [Volume fraction] 33.4 % Low 39.0-51.0 [facility] Comment on above: Order Comment: Speci men Type: BLOOD SPECIMENOrdering Facility: [facility] Address: [address] [place] [address] Performed By: #### 5 7021-8 ####[place] [facility] [id number] [place] [address] [place] Hemoglobin (Bld) [Mass/Vol] 10.6 g/dL Low 13.0-17.0 [facility] Comment on above: Order Comment: Speci men Type: BLOOD SPECIMENOrdering Facility: [facility] Address: [address] [place] [address] Performed By: #### 5 7021-8 ####[place] [facility] [id number] [place] [address] [place] Immature granulocytes (Bld) [#/Vol] 0.07 10*3/uL Normal <0.10 [facility] Comment on above: Order Comment: Speci men Type: BLOOD SPECIMENOrdering Facility: [facility] Address: [address] [place] [address] Performed By: #### 5 7021-8 ####[place] [facility] [id number] [place] [address] [place] Immature granulocytes/100 WBC (Bld) 0.7 % Normal [facility] Comment on above: Order Comment: Speci men Type: BLOOD SPECIMENOrdering Facility: [facility] Address: [address] [place] [address] Performed By: #### 5 7021-8 ####[facility] [facility] [id number] [place] [address] [place] Lymphocytes (Bld) [#/Vol] 1.23 10*3/uL Normal 1.00-4.00 [facility] Comment on above: Order Comment: Speci men Type: BLOOD SPECIMENOrdering Facility: [facility] Address: [address] [place] [address] Performed By: #### 5 7021-8 ####[place] [facility] [id number] [place] [address] [place] Lymphocytes/100 WBC (Bld) 11.8 % Normal [facility] Comment on above: Order Comment: Speci men Type: BLOOD SPECIMENOrdering Facility: [facility] Address: [address] [place] [address] Performed By: #### 5 7021-8 ####[place] [facility] [id number] [place] [address] [place] MCH (RBC) [Entitic mass] 26.2 pg Normal 26.0-34.0 [facility] Comment on above: Order Comment: Speci men Type: BLOOD SPECIMENOrdering Facility: [facility] Address: [address] [place] [address] Performed By: #### 5 7021-8 ####[place] [facility] [id number] [place] [address] [place] MCHC (RBC) [Mass/Vol] 31.7 g/dL Normal 30.5-36.0 [facility] Comment on above: Order Comment: Speci men Type: BLOOD SPECIMENOrdering Facility: [facility] Address: [address] [place] [address] Performed By: #### 5 7021-8 ####[place] [facility] [id number] [place] [address] [place] MCV (RBC) [Entitic vol] 82.5 fL Normal 80.0-100.0 C [facility] Comment on above: Order Comment: Speci men Type: BLOOD SPECIMENOrdering Facility: [facility] Address: [address] [place] [address] Performed By: #### 5 7021-8 ####[place] [facility] [id number] [place] [address] [place] Monocytes (Bld) [#/Vol] 0.69 10*3/uL Normal <0.87 [facility] Comment on above: Order Comment: Speci men Type: BLOOD SPECIMENOrdering Facility: [facility] Address: [address] [place] [address] Performed By: #### 5 7021-8 ####[place] [facility] [id number] [place] [address] [place] Monocytes/100 WBC (Bld) 6.6 % Normal C [facility] Comment on above: Order Comment: Speci men Type: BLOOD SPECIMENOrdering Facility: [facility] Address: [address] [place] [address] Performed By: #### 5 7021-8 ####[place] [facility] [id number] [place] [address] [place] Neutrophils (Bld) [#/Vol] 8.17 10*3/uL High 1.45-7.50 [facility] Comment on above: Order Comment: Speci men Type: BLOOD SPECIMENOrdering Facility: [facility] Address: [address] [place] [address] Performed By: #### 5 7021-8 ####[place] [facility] [id number] [place] [address] [place] Neutrophils/100 WBC (Bld) 78.6 % Normal [facility] Comment on above: Order Comment: Speci men Type: BLOOD SPECIMENOrdering Facility: [facility] Address: [address] [place] [address] Performed By: #### 5 7021-8 ####[place] [facility] [id number] [facility] [address] [place] [address] [place] Nucleated RBC (Bld) [#/Vol] 10*3/uL Normal <0.01 [facility] Comment on above: Order Comment: Speci men Type: BLOOD SPECIMENOrdering Facility: [facility] Address: [address] [place] [address] Performed By: #### 5 7021-8 ####[place] [facility] [id number] [facility] [address], [facility]95 [place] Nucleated RBC/100 WBC (Bld) [Ratio] 0.0 /100 WBC Normal [facility] Comment on above: Order Comment: Speci men Type: BLOOD SPECIMENOrdering Facility: [facility] Address: [address] [place] [address] Performed By: #### 5 7021-8 ####[place] [facility] [id number] [address] [place] [address] [place] Platelet mean volume (Bld) [Entitic vol] 11.2 fL Normal 9.0-12.7 [facility] Comment on above: Order Comment: Speci men Type: BLOOD SPECIMENOrdering Facility: [facility] Address: [address] [place] [address] Performed By: #### 5 7021-8 ####[place] [facility] [id number] [place] [address] [place] Platelets (Bld) [#/Vol] 457 10*3/uL High 150-400 [facility] Comment on above: Order Comment: Speci men Type: BLOOD SPECIMENOrdering Facility: [facility] Address: [address] [place], [place] [address] Performed By: #### 5 7021-8 ####[place] [facility] [id number] [place] [address] [place] RBC (Bld) [#/Vol] 4.05 10*6/uL Low 4.20-6.00 [facility] Comment on above: Order Comment: Speci men Type: BLOOD SPECIMENOrdering Facility: [facility] Address: [address] [place] [address] Performed By: #### 5 7021-8 ####[place] [facility] [id number] [place] [address] [place] WBC (Bld) [#/Vol] 10.40 10*3/uL Normal 3.70-11.00 [facility] Comment on above: Order Comment: Speci men Type: BLOOD SPECIMENOrdering Facility: [facility] Address: [address] [place] [address] Performed By: #### 5 7021-8 ####[facility] [id number] [address] [place] CNOVon 01-30-2025 CNOV Office Visit (FAMPWS ) HYUN ELIAS ([id number]) 1975 M Date Time Provider Department 01/30/25 12:40 PM GILDA NOONAN FAMPWS During your visit today, we recorded the following information about you: Temperature Pulse Blood pressure Weight 98.5 degrees 113/minute 100/58 63.5 kg Gilda Noonan APRN.WET MACHINE TENDER 01/30/2025 1:08 PM Signed This is a [...] Yes Frequency: 2.0 times per week Comment: [place] per patient REVIEW OF SYSTEMS Constitutional: (+) [...] bruits. LUNGS (more content not included)... 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 PET scan ordered for staging. He did [...] Status:Closed by GILDA NOONAN on 01/30/25 Normal [facility] Ferritin [Mass/Vol] 1074.0 ng/mL High 30.3-565.7 [facility] Comment on above: Order Comment: Speci men Type: BLOOD SPECIMENOrdering Facility: [facility] Address: [address] [place] [address] Performed By: #### 5 0190-8, 4, 2284-02 ####[place] [facility] [id number] [place] [address] [place] Folate SerPl-mCncon 01-31-20 25 Folate [Mass/Vol] 7.9 ng/mL Normal >4.7 [facility] Comment on above: Order Comment: Speci men Type: BLOOD SPECIMENOrdering Facility: [facility] Address: [address] [place] [address] Performed By: #### 5 0190-8, 2275-10, 2284-02 ####[place] [facility] [id number] [place] [address] [place] Iron and Iron binding capaci ty panelon 01-30-2025 Iron [Mass/Vol] 16 ug/dL Low 41-186 [facility] Comment on above: Order Comment: Speci men Type: BLOOD SPECIMENOrdering Facility: [facility] Address: [address] [place] [address] Performed By: #### 5 0190-8, 2275-10, 2284-02 ####[place] [facility] [id number] [place] [id number] [place] Iron binding capacity [Mass/Vol] 196 ug/dL Low 232-386 [facility] Comment on above: Order Comment: Speci men Type: BLOOD SPECIMENOrdering Facility: [facility] Address: [address] [place] [address] Performed By: #### 5 0190-8, 2275-4, 8 ####[place] [facility] [id number] [place] [id number] [place] Iron/TIBC [Molar ratio] 8.2 % Low 15.0-57.0 C [facility] Comment on above: Order Comment: Speci men Type: BLOOD SPECIMENOrdering Facility: [facility] Address: [address] [place] [address] Performed By: #### 5 0190-8, 2275-4, 2284-02 ####[place] [facility] [id number] [place] [id number] [place] Pulmonary Visit Reporton Pulmonary Visit Report [facility] [place] [address] [place], [place] [address] OFFICE VISIT Date of Service: 01/18/25 MR#: [id number] Acct: [id number] Name: HYUN ELIAS Rep #: [id number] : 1975 Provider: RODRIGUEZ Cardenas Age/Sex: 49/M [facility] Status: Signed Assessment and Plan Assessment and Plan (1) 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: Status: Acute Plan: New. Referral for fast pass to [place] [facility]. PET scan ordered for staging. He did [...] Additional Comments: This note was generated with [employer] dictation software. It may contain incorrect words, [...] 1-1/2 packs/day. He has a greater than 67-utrw-svpy history. He has shortness of breath on [...] room air Intake Visit Reasons: Test Result Supervisor Opening And Picking Required: No DME Vendor: N/a Accompanied by: [...] PRN Nausea (more content not included)... Normal [facility] Surgical pathology reportOrd ered By: Noemí Crooks on 01-11-2025 Surgical pathology study [facility] Absolute lymphocyte countOrd ered By: Theodore Lynch on 01-04-2025 Lymphocytes Auto (Unsp spec) [#/Vol] 1.65 10*3/uL 0.83-4.51 [facility] Absolute neutrophil countOrd ered By: Theodore Lynch on 01-04-2025 Neutrophils (Bld) [#/Vol] 10.3 10*3/uL High 2.0-7.7 [facility] Activated partial thrombopla stin time (aPTT) in platelet poor plasma by coagulation aOrdered By: Theodore Lynch on 01-04-2025 aPTT Coag (PPP) [Time] 24.2 s 24.1-36.2 [facility] Automated lymphocyte count a s percentage of total leukocytesOrdered By: Theodore Lynch on 01-04-2025 Lymphocytes/100 WBC Auto (Unsp spec) 12.7 % Low 19-41 [facility] Basophil percentageOrdered B y: Theodore Lynch on 01-04-2025 Basophils/100 WBC (Bld) 0.6 % 0-1 W [facility] Biopsy/Inj or Needle Placeme nton 01-04-2025 Biopsy/Inj or Needle Placement [facility] Imaging Services [address] [place] [address] Biopsy/Inj or Needle Placement MR#: [id number] Acct: [id number] Name: HYUN ELIAS Rep #: [id number] : 1975 M 49 From: Theodore Julian PCP: Dr. Cristian Adame MD Status: REG CLI Study: Biopsy/Inj or Needle Placement Date of Exam: 0 01/04/25 Exam# [id number] Ordering Dr: Denny Moffett DO EXAM: CT-guided [...] posterior nodule. Pathology results pending. Reading Location: [place] [address] CC: Dr. Denny Moffett DO; Dr. Cristian Adame MD Senior Examiner: Signed Normal [facility] CBC W/Diff, Automatedon 06-2 -2024 Absolute Lymph 1.65 X10 3/uL Normal 0.83-4.51 [facility] Comment on above: Performed By: #### L 501.5500, L501.7300, L501.7400 #### [facility] [address] [place], [address] Absolute Neut 10.3 X10 3/uL High 2.0-7.7 [facility] Comment on above: Performed By: #### L 501.5500, L501.7300, L501.7400 #### [facility] [address] [place], [address] Basophils/100 WBC (Bld) 0.6 % Normal 0-1 W [facility] Comment on above: Performed By: #### L 501.5500, L501.7300, L501.7400 #### [facility] [address] [place], [address] Eosinophils/100 WBC (Bld) 0.8 % Normal 0-5 [facility] Comment on above: Performed By: #### L 501.5500, L501.7300, L501.7400 #### [facility] [address] [place], [address] Erythrocyte distribution width (RBC) [Ratio] 13.5 % Normal 11.6-14.6 [facility] Comment on above: Performed By: #### L 501.5500, L501.7300, L501.7400 #### [facility] [address] [place], [address] Hematocrit (Bld) [Volume fraction] 36.7 % Low 40-54 [facility] Comment on above: Performed By: #### L 501.5500, L501.7300, L501.7400 #### [facility] [address] [place], [address] Hemoglobin (Bld) [Mass/Vol] 12.1 g/dL Low 13.0-16.5 [facility] Comment on above: Performed By: #### L 501.5500, L501.7300, L501.7400 #### [facility] [address] [place], [address] IG% 0.500 Normal 0.0-0.9 [facility] Comment on above: Result Comment: IG% - Immature Granulocytes (promyelocytes, myelocytes and metamyelocytes) > 1% indicates that a LEFT SHIFT is Present. Performed By: #### L 501.5500, L501.7300, L501.7400 #### [facility] [address] [place], [address] Lymphocytes/100 WBC (Bld) 12.7 % Low 19-41 [facility] Comment on above: Performed By: #### L 501.5500, L501.7300, L501.7400 #### [facility] [address] [place], [address] MCH (RBC) [Entitic mass] 27.1 pg Normal 27.0-32.0 [facility] Comment on above: Performed By: #### L 501.5500, L501.7300, L501.7400 #### [facility] [address] [place], [address] MCHC (RBC) [Mass/Vol] 33.0 g/dL Normal 32-36 [facility] Comment on above: Performed By: #### L 501.5500, L501.7300, L501.7400 #### [facility] [address] [place], [address] MCV (RBC) [Entitic vol] 82.3 fL Normal 80-94 W [facility] Comment on above: Performed By: #### L 501.5500, L501.7300, L501.7400 #### [facility] [address] [place], [address] Monocytes/100 WBC (Bld) 5.9 % Normal 0-10 W [facility] Comment on above: Performed By: #### L 501.5500, L501.7300, L501.7400 #### [facility] [address] [place], [address] Neutrophils/100 WBC (Bld) 79.5 % High 47-70 [facility] Comment on above: Performed By: #### L 501.5500, L501.7300, L501.7400 #### [facility] [address] [place], [address] Nucleated RBC (Bld) [#/Vol] 0 10*3/uL Normal 0-5 [facility] Comment on above: Performed By: #### L 501.5500, L501.7300, L501.7400 #### [facility] [address] [place], [address] Platelet mean volume (Bld) [Entitic vol] 11.2 fL Normal 6.2-12.0 [facility] Comment on above: Performed By: #### L 501.5500, L501.7300, L501.7400 #### [facility] [address] [place], [address] Platelets (Bld) [#/Vol] 457 10*3/uL High 150-450 [facility] Comment on above: Performed By: #### L 501.5500, L501.7300, L501.7400 #### [facility] [address] [place], [address] RBC (Bld) [#/Vol] 4.46 10*6/uL Low 4.6-6.2 [facility] Comment on above: Performed By: #### L 501.5500, L501.7300, L501.7400 #### [facility] [address] [place], [address] RDW SD 40.4 fl Normal 35.1-43.9 [facility] Comment on above: Performed By: #### L 501.5500, L501.7300, L501.7400 #### [facility] [address] [place], [address] WBC (Bld) [#/Vol] 13.0 10*3/uL High 4.4-11.0 [facility] Comment on above: Performed By: #### L 501.5500, L501.7300, L501.7400 #### [facility] [address] [place], [address] CNPNon [facility]04-20[facility] DAVEMIALEXEY,HYUN Low ([id number]) 1975 M Date Time Provider Department 01/04/25 [facility] During your visit today, we recorded the following information about you: Petty Stack RN 01/04/2025 4:39 PM Signed Shanon from [facility] calls and is asking if provider can send over script for oxyir tablets instead of capsules? Please review and advise, DOLORES Pemberton Jacqueline A, APRN.WET MACHINE TENDER 01/04/2025 5:24 PM Signed done Allergies As [...] Status:Closed by CECILY SOLER on 01/04/25 Normal [facility] Chest Insp/Exp 2 Viewon - Chest Insp/Exp 2 View [facility] Imaging Services [address] [place] [address] Chest Insp/Exp 2 View MR#: [id number] Acct: [id number] Name: HYUN ELIAS Rep #: [id number] : 1975 M 49 From: Theodore Julian PCP: Dr. Cristian Adame MD Status: REG CLI Study: Chest Insp/Exp 2 View Date of Exam: 01/04/25 Exam# [id number] Ordering Dr: Theodore Lynch MD PROCEDURE: CHEST [...] stable, without evidence of cardiomegaly Reading Location: [place] [address] CC: Dr. Theodore Lynch MD; Dr. Cristian Adame MD Senior Examiner: Signed Normal [facility] Chest Insp/Exp 2 View [facility] Imaging Services [address] [place] [address] Chest Insp/Exp 2 View MR#: [id number] Acct: [id number] Name: HYUN ELIAS Rep #: [id number] : 1975 M 49 From: Collin marroquin MD PCP: Dr. Cristian Adame MD Status: REG CLI Study: Chest Insp/Exp 2 View Date of Exam: 01/04/25 Exam# [id number] Ordering Dr: Theodore Lynch MD PROCEDURE: CHEST INSP/EXP 2 VIEW 01/04/2025 REASON FOR EXAM: POST LUNG BIOPSY TECHNIQUE: CHEST INSP/EXP 2 VIEW COMPARISON: None FINDINGS: No evidence of pneumothorax on the immediate post right lung biopsy radiographs. Multiple bilateral pulmonary nodules. RAD/Chest Insp/Exp 2 View IMPRESSION: No evidence of pneumothorax. Reading Location: [id number] CC: Dr. Theodore Lynch MD; Dr. Cristian Adame MD Senior Examiner: Signed Normal [facility] Eosinophil percentageOrdered By: Theodore Lynch on 01-04-2025 Eosinophils/100 WBC (Bld) 0.8 % 0-5 [facility] Erythrocyte distribution wid th ratioOrdered By: Theodore Lynch on 01-04-2025 Erythrocyte distribution width (RBC) [Ratio] 13.5 % 11.6-14.6 [facility] Erythrocyte distribution wid th standard deviationOrdered By: Theodore Lynch on 01-04-2025 Erythrocyte distribution width (RBC) [Ratio] 40.4 fl 35.1-43.9 [facility] Hematocrit Auto (Bld) [Volum e fraction]Ordered By: Theodore Lynch on 01-04-2025 Hematocrit (Bld) [Volume fraction] 36.7 % Low 40-54 [facility] Hemoglobin measurementOrdere d By: Theodore Lynch on 01-04-2025 Hemoglobin (Bld) [Mass/Vol] 12.1 g/dL Low 13.0-16.5 [facility] Immature granulocytes/100 WB C Auto (Bld)Ordered By: Theodore Lynch on 01-04-2025 Immature granulocytes/100 WBC (Bld) 0.500 % 0.0-0.9 [facility] Comment on above: IG% - Immature Granu locytes (promyelocytes, myelocytes and metamyelocytes) > 1% indicates that a LEFT SHIFT is Present. Immunohistochemical Stainson 01-04-2025 Immunohistochemical Stains Patient Age/Sex Location Account Attending Physician HYUN ELIAS 49/M CT [id number] Dr. Denny Moffett DO Specimen: [id number] Received: 01/04/25 Status: ROSALIA Wood Num: [id number] Spec Type: ASP RAD Subm Dr: DO [...] developed and their performance characteristics determined by [facility]. They may not have been cleared [...] in diameter. Entirely submitted in 1 cassette. [place] 01/04/2025 CPT:41650,11986,29841,8 [id number],[id number] Patient Age/Sex Location Account Attending Physician HYUN ELIAS 49/M [place] [id number] Dr. Denny Moffett, DO ADDENDUM Addendum 1 Entered: 01/11/25-0495 This addendum report is to include the additional stains performed: Mucicarmine: focal intracellular mucin positive. PASD: negative for fungal organisms. AFB: negative for acid fast bacilli. Based on the additional stain(s), the differential diagnosis includes adenosquamous carcinoma. Selected slides/images were reviewed in intradepartmental consultation by Dr Galo Buckner (thoracic pathology division, [facility]). The addendum report was discussed with Dr Iesha Moffett 01/11/25 at 1:51 PM. Addendum Signed (signature on file) Dr. Noemí Crooks MD 01/11/25 1352 Patient Age/Sex Location Account Attending Physician HYUN ELIAS 49/M CT [id number] Dr. Denny Moffett, DO Signed (signature on file) Dr. Noemí Crooks MD 01/11/25 1108 Normal [facility] Comment on above: Performed By: #### L 501.5500, L501.7300, L501.7400 #### [facility] SilvaRoseanna [place], [place], [id number] International normalized rat io (INR) calculationOrdered By: Theodore Lynch on 01-04-2025 INR Coag (Bld) [Relative time] 1.2 {INR} [facility] MCV (mean corpuscular volume ) determinationOrdered By: Theodore Lynch on 01-04-2025 MCV (RBC) [Entitic vol] 82.3 fL 80-94 W [facility] Mean corpuscular hemoglobin (MCH) determinationOrdered By: Theodore Lynch on 01-04-2025 MCH (RBC) [Entitic mass] 27.1 pg 27.0-32.0 [facility] Mean corpuscular hemoglobin concentration (MCHC) determinationOrdered By: Theodore Lynch on 01-04-2025 MCHC (RBC) [Mass/Vol] 33.0 g/dL 32-36 [facility] Mean platelet volume determi nationOrdered By: Theodore Lynch on 01-04-2025 Platelet mean volume (Bld) [Entitic vol] 11.2 fL 6.2-12.0 [facility] Monocyte percentageOrdered B y: Theodore Lynch on 01-04-2025 Monocytes/100 WBC (Bld) 5.9 % 0-10 W [facility] Neutrophil percentageOrdered By: Theodore Lynch on 01-04-2025 Neutrophils/100 WBC (Bld) 79.5 % High 47-70 [facility] Nucleated red blood cell per centageOrdered By: Theodore Lynch on 01-04-2025 Nucleated RBC/100 WBC (Bld) [Ratio] 0 % 0-5 [facility] Partial Thromboplast Timeon 01-04-2025 aPTT Coag (Bld) [Time] 24.2 s Normal 24.1-36.2 [facility] Comment on above: Performed By: #### L 501.5500, L501.7300, L501.7400 #### [facility] [address] [place], [place], [address] Platelet countOrdered By: Leandro Lynch on 01-04-2025 Platelets (Bld) [#/Vol] 457 10*3/uL High 150-450 [facility] Prothrombin Time w/INRon INR Coag (PPP) [Relative time] 1.2 {INR} Normal [facility] Comment on above: Performed By: #### L 501.5500, L501.7300, L501.7400 #### [facility] [address] [place], [place], [address] PT Coag (PPP) [Time] 15.3 s High 11.7-14.9 [facility] Comment on above: Performed By: #### L 501.5500, L501.7300, L501.7400 #### [facility] [address] [place], [place], [address] Prothrombin timeOrdered By: Theodore Lynch on 01-04-2025 PT Coag (PPP) [Time] 15.3 s High 11.7-14.9 [facility] RBC Auto (Bld) [#/Vol]Ordere d By: Theodore Lynch on 01-04-2025 RBC (Bld) [#/Vol] 4.46 10*6/uL Low 4.6-6.2 [facility] White blood cell (WBC) count Ordered By: Theodore Lynch on 01-04-2025 WBC (Bld) [#/Vol] 13.0 10*3/uL High 4.4-11.0 [facility] CNPNon 12-27-2024 [facility] HYUN [facility] ([id number]) 1975 M Date Time Provider Department 12/27/24 [facility] During your visit today, we recorded the following information about you: Monserrat Alcantara, RN 12/27/2024 8:17 AM Signed Pt phoned to let pcp know he was suppose to have his biopsy done today at [facility]. [facility] cancelled and re-scheduled for next urs- telling pt the part they need for the CT is stuck in [place]. Pt asking pcp is there any way he can have the biopsy done at the [facility] Specialty building? Please advise pt. [phone] Cristian Adame MD 12/27/2024 8:48 AM Signed Likely would need to be done at one of the hospitals and doubt it could get set up any sooner than next week. He would have to travel plus see a new beauty therapist. Would actually take much longer Sepideh Pires LPN 12/27/2024 11:32 AM Signed Pt notified pf Dr Adame's message. Pt verbalizes understanding. Pt had just wanted to give PCP a head up. Pt will wait and do procedure at [facility]. Sepideh Pires LPN Allergies As of Date: 12/27/2024 Noted Allergy Reaction AUGMENTIN (AMOXICILLIN-POT CLAVUL*05/08/2011 6 - Diarrhea BACTRIM (SULFAMETHOXAZOLE) 06/27/2012 7 - Swelling Date Reviewed: 12/15/2024 Reviewed by: Raiza Rodrigez LPN - Fully Assessed Reason for Visit: Patient Question [0628] Prescriptions as of 12/27/2024 - oxyCODONE ir [...] Status:Closed by SEPIDEH PIRES on 12/27/24 [facility] HYUN ELI[facility] ([id number]) 1975 M Date Time Provider Department 12/21/24 [facility] During your visit today, we recorded the following information about you: Petty Stack RN 12/21/2024 12:52 PM Signed Patient's significant other calls and states that patient is supposed to have have biopsy done 12/27. Patient was told to call PCP to see if something can be ordered to relax patient before procedure? Pharmacy is [facility]. Please review and advise, DOLORES Pemberton William [...] Fully Assessed Reason for Visit: Patient Question [7005] Primary Visit Diagnosis:Anxiety [F41.9] Order(s):hydrOXYzine pamoate (VISTARIL) [...] Encounter Status:Closed by NUPUR GREEN [facility] ([facility]) HYUN ELIAS ([id number]) 1975 M Date Time Provider Department 12/19/24 [facility] During your visit today, we recorded [...] Nupur Green MA 12/19/2024 11:39 AM Signed [employer] message sent Allergies As of Date: 12/19/2024 Noted Allergy Reaction AUGMENTIN (AMOXICILLIN-POT CLAVUL*05/08/2011 6 - Diarrhea BACTRIM (SULFAMETHOXAZOLE) 06/27/2012 7 - Swelling Date Reviewed: 12/15/2024 Reviewed by: Raiza Rodrigez LPN - Fully Assessed Reason for Visit: Results [95] Primary Visit Diagnosis:Anemia, unspecified type [D64.9] Other Visit Diagnosis:Folic acid deficiency [E53.8] Order(s):IMMUNOCHEMICAL FECAL OCCULT BLOOD TEST [SQIFOBT] Order #: [id number]. #:[id number] FOLATE, SERUM [SQSERFOL] Order #: [id number] FUTURE ferrous sulfate 325 mg (65 mg iron) tabletTake 1 tablet by mouth two times a day with meals.Disp: 180 tabletRfl: 3 FERRITIN [SQFERR] Order #: [id number] FUTURE IRON AND TIBC [SQIRON] Order #: [id number] FUTURE COMPLETE BLOOD COUNT AND DIFFERENTIAL [SQCBCDIF] Order #: [id number] FUTURE folic acid 1 mg tabletTake 1 [...] Status:Closed by NUPUR GREEN on 12/19/24 Normal [facility] Bacteria Ur Culton 5 Bacteria identified Cx Nom (U) ORGANISM ID: 1 <10,000 CFU/ml Normal urogenital tracey Normal [facility] Comment on above: Performed By: #### 6 30-4 ####[facility] [id number] [place] [address] [place] Basic metabolic 2000 panelon 12-18-2024 Anion gap [Moles/Vol] 11 mmol/L 8 - 15 mmol/L [facility] Calcium [Mass/Vol] 9.2 mg/dL 8.5 - 10. 2 mg/dL [facility] Chloride [Moles/Vol] 97 mmol/L Low 98 - 10 7 mmol/L [facility] CO2 [Moles/Vol] 23 mmol/L 22 - 30 mmol/L [facility] Creatinine [Mass/Vol] 0.86 mg/dL 0.73 - 1.22 mg/dL [facility] GFR/1.73 sq M.predicted among non-blacks MDRD (S/P/Bld) [Vol rate/Area] 105 mL/min/{1.73_m2} - PINF [facility] Comment on above: Estimated Glomerular Filtration Rate [...] 204 mg/dL High 74 - 99 mg/dL [facility] Comment on above: The [place] Diabete [employer] Association (ADA) provides guidance for [...] Standards of Medical Care in Diabetes 2016, [place] [employer]. Diabetes Care. 2016.39(Suppl 1). Potassium [Moles/Vol] 4.3 mmol/L 3.7 - 5.1 mmol/L [facility] Sodium [Moles/Vol] 131 mmol/L Low 136 - 144 mmol/L [facility] Urea nitrogen [Mass/Vol] 11 mg/dL 9 - 24 mg/dL [facility] Anion gap [Moles/Vol] 11 mmol/L Normal 8-15 [facility] Comment on above: Order Comment: Speci men Type: BLOOD SPECIMENOrdering Facility: [facility] Address: [address] [place] [address] Performed By: #### 2 4321-2, 03060-7, 2275-10 ####[facility] [id number] [place] [address] [place] Calcium [Mass/Vol] 9.2 mg/dL Normal 8.5-10.2 [facility] Comment on above: Order Comment: Speci men Type: BLOOD SPECIMENOrdering Facility: [facility] Address: [address] [place] [id number] Performed By: #### 2 4321-2, 97965-0, 2275-10 ####[facility] [id number] [place] [address] [place] Chloride [Moles/Vol] 97 mmol/L Low 98-107 [facility] Comment on above: Order Comment: Speci men Type: BLOOD SPECIMENOrdering Facility: [facility] Address: [address] [place], [place] [address] Performed By: #### 2 4321-2, 07925-5, 4 ####[facility] [id number] [place] [address] [place] CO2 [Moles/Vol] 23 mmol/L Normal 22-30 [facility] Comment on above: Order Comment: Speci men Type: BLOOD SPECIMENOrdering Facility: [facility] Address: [address] [place] [address] Performed By: #### 2 4321-2, 98801-4, 2275-10 ####[facility] [id number] [place] [address] [place] Creatinine [Mass/Vol] 0.86 mg/dL Normal 0.73-1.22 [facility] Comment on above: Order Comment: Speci men Type: BLOOD SPECIMENOrdering Facility: [facility] Address: [address] [place] [address] Performed By: #### 2 4321-2, 34460-1, 2275-10 ####[facility] [id number] [place] [address] [place] Creatinine and Glomerular filtration rate.predicted panel (S/P/Bld) 105 mL/min/1.73m??? Normal >=60 [facility] Comment on above: Order Comment: Speci men Type: BLOOD SPECIMENOrdering Facility: [facility] Address: [address] [place] [address] Result Comment: Anika mated Glomerular Filtration Rate [...] actual GFR. Performed By: #### 2 4321-2, 29639-0, 2275-10 ####[facility] [id number] [address] [address] [place] Glucose [Mass/Vol] 204 mg/dL High 74-99 [facility] Comment on above: Order Comment: Speci men Type: BLOOD SPECIMENOrdering Facility: [facility] Address: [address] [place] [address] Result Comment: The [place] Diabetes Association (ADA) provides guidance for cutoff [...] Standards of Medical Care in Diabetes 2016, [place] [employer]. Diabetes Care. 2016.39(Suppl 1). Performed By: #### 2 4321-2, 87225-0, 2275-10 ####[facility] [facility] [id number] [place] [address] [place] Potassium [Moles/Vol] 4.3 mmol/L Normal 3.7-5.1 [facility] Comment on above: Order Comment: Speci men Type: BLOOD SPECIMENOrdering Facility: [facility] Address: [address] [place] [address] Performed By: #### 2 4321-2, 49413-1, 2275-10 ####[facility] [id number] [place] [address] [place] Sodium [Moles/Vol] 131 mmol/L Low 136-144 [facility] Comment on above: Order Comment: Speci men Type: BLOOD SPECIMENOrdering Facility: [facility] Address: [address] [place] [address] Performed By: #### 2 4321-2, 74366-2, 2276-4 ####[facility] [id number] [place] [address] [place] Urea nitrogen [Mass/Vol] 11 mg/dL Normal 9-24 [facility] Comment on above: Order Comment: Speci men Type: BLOOD SPECIMENOrdering Facility: [facility] Address: [address] [place] [address] Performed By: #### 2 4321-2, 04395-2, 2276-4 ####[facility] [id number] [place] [address] [place] CBC W Auto Differential pane l (Bld)on 12-18-2024 Basophils (Bld) [#/Vol] 0.1 10*3/uL [facility] Basophils/100 WBC (Bld) 1 % [facility] Differential cell count method Nom (Bld) Auto [facility] Eosinophils (Bld) [#/Vol] 0.2 10*3/uL [facility] Eosinophils/100 WBC (Bld) 2 % [facility] Erythrocyte distribution width (RBC) [Ratio] 13.2 % 11.5 - 15.0 % [facility] Hematocrit (Bld) [Volume fraction] 35.8 % Low 39.0 - 51.0 % [facility] Hemoglobin (Bld) [Mass/Vol] 11.6 g/dL Low 13.0 - 17.0 g/dL [facility] Immature granulocytes (Bld) [#/Vol] 0.05 10*3/uL [facility] Immature granulocytes/100 WBC (Bld) 0.5 % [facility] Interpretation and review of laboratory results Abnormal [facility] Lymphocytes (Bld) [#/Vol] 1.99 10*3/uL [facility] Lymphocytes/100 WBC (Bld) 20 % [facility] MCH (RBC) [Entitic mass] 27.9 pg 26.0 - 34.0 pg [facility] MCHC (RBC) [Mass/Vol] 32.4 g/dL 30.5 - 36.0 g/dL [facility] MCV (RBC) [Entitic vol] 86.1 fL 80.0 - 100.0 fL [facility] Monocytes (Bld) [#/Vol] 0.74 10*3/uL [facility] Monocytes/100 WBC (Bld) 7.5 % [facility] Neutrophils (Bld) [#/Vol] 6.85 10*3/uL [facility] Neutrophils/100 WBC (Bld) 69 % [facility] Nucleated RBC (Bld) [#/Vol] NINF [facility] Nucleated RBC/100 WBC (Bld) [Ratio] 0 % /100 WBC [facility] Platelet mean volume (Bld) [Entitic vol] 11.3 fL 9.0 - 12.7 fL [facility] Platelets (Bld) [#/Vol] 345 10*3/uL [facility] RBC (Bld) [#/Vol] 4.16 10*6/uL Low 4.20 - 6.0 0 m/uL [facility] WBC (Bld) [#/Vol] 9.93 10*3/uL [facility] Basophils (Bld) [#/Vol] 0.10 10*3/uL Normal <0.11 [facility] Comment on above: Order Comment: Speci men Type: BLOOD SPECIMENOrdering Facility: [facility] Address: [address] [place] [address] Performed By: #### 5 7021-8, 4537-7 ####[facility] [id number] [place] [address] [place] Basophils/100 WBC (Bld) 1.0 % Normal [facility] Comment on above: Order Comment: Speci men Type: BLOOD SPECIMENOrdering Facility: [facility] Address: [address] [place] [address] Performed By: #### 5 7021-8, 4537-7 ####[facility] [id number] [place] [address] [place] Differential cell count method Nom (Bld) Auto Normal [facility] Comment on above: Order Comment: Speci men Type: BLOOD SPECIMENOrdering Facility: [facility] Address: [address] [place] [address] Performed By: #### 5 7021-8, 4536-7 ####[facility] [id number] [place] [address] [place] Eosinophils (Bld) [#/Vol] 0.20 10*3/uL Normal <0.46 [facility] Comment on above: Order Comment: Speci men Type: BLOOD SPECIMENOrdering Facility: [facility] Address: [address] [place] [address] Performed By: #### 5 7021-8, 4536-7 ####[facility] [id number] [place] [address] [place] Eosinophils/100 WBC (Bld) 2.0 % Normal [facility] Comment on above: Order Comment: Speci men Type: BLOOD SPECIMENOrdering Facility: [facility] Address: [address] [place] [address] Performed By: #### 5 7021-8, 7 ####[facility] [id number] [place] [address] [place] Erythrocyte distribution width (RBC) [Ratio] 13.2 % Normal 11.5-15.0 [facility] Comment on above: Order Comment: Speci men Type: BLOOD SPECIMENOrdering Facility: [facility] Address: [address] [place] [address] Performed By: #### 5 7021-8, 7 ####[facility] [id number] [place] [address] [place] Hematocrit (Bld) [Volume fraction] 35.8 % Low 39.0-51.0 [facility] Comment on above: Order Comment: Speci men Type: BLOOD SPECIMENOrdering Facility: [facility] Address: [address] [place] [address] Performed By: #### 5 7021-8, 4536-7 ####[facility] [id number] [place] [address] [place] Hemoglobin (Bld) [Mass/Vol] 11.6 g/dL Low 13.0-17.0 [facility] Comment on above: Order Comment: Speci men Type: BLOOD SPECIMENOrdering Facility: [facility] Address: [address] [place] [address] Performed By: #### 5 7021-8, 4537-7 ####[facility] [id number] [place] [address] [place] Immature granulocytes (Bld) [#/Vol] 0.05 10*3/uL Normal <0.10 [facility] Comment on above: Order Comment: Speci men Type: BLOOD SPECIMENOrdering Facility: [facility] Address: [address] [place] [address] Performed By: #### 5 7021-8, 4537-7 ####[facility] [id number] [place] [address] [place] Immature granulocytes/100 WBC (Bld) 0.5 % Normal [facility] Comment on above: Order Comment: Speci men Type: BLOOD SPECIMENOrdering Facility: [facility] Address: [address] [place] [address] Performed By: #### 5 7021-8, 4537-7 ####[facility] [id number] [place] [address] [place] Lymphocytes (Bld) [#/Vol] 1.99 10*3/uL Normal 1.00-4.00 [facility] Comment on above: Order Comment: Speci men Type: BLOOD SPECIMENOrdering Facility: [facility] Address: [address] [place] [address] Performed By: #### 5 7021-8, 4537-7 ####[facility] [id number] [id number] [address] [place] Lymphocytes/100 WBC (Bld) 20.0 % Normal [facility] Comment on above: Order Comment: Speci men Type: BLOOD SPECIMENOrdering Facility: [facility] Address: [address] [place] [address] Performed By: #### 5 7021-8, 4536-7 ####[facility] [id number] [place] [address] [place] MCH (RBC) [Entitic mass] 27.9 pg Normal 26.0-34.0 [facility] Comment on above: Order Comment: Speci men Type: BLOOD SPECIMENOrdering Facility: [facility] Address: [address] [place] [address] Performed By: #### 5 7021-8, 7 ####[facility] [id number] [place] [address] [place] MCHC (RBC) [Mass/Vol] 32.4 g/dL Normal 30.5-36.0 [facility] Comment on above: Order Comment: Speci men Type: BLOOD SPECIMENOrdering Facility: [facility] Address: [address] [place] [address] Performed By: #### 5 7021-8, 7 ####[facility] [id number] [place] [address] [place] MCV (RBC) [Entitic vol] 86.1 fL Normal 80.0-100.0 C [facility] Comment on above: Order Comment: Speci men Type: BLOOD SPECIMENOrdering Facility: [facility] Address: [address] [place] [address] Performed By: #### 5 7021-8, 7 ####[facility] [id number] [place] [address] [place] Monocytes (Bld) [#/Vol] 0.74 10*3/uL Normal <0.87 [facility] Comment on above: Order Comment: Speci men Type: BLOOD SPECIMENOrdering Facility: [facility] Address: [address] [place] [address] Performed By: #### 5 7021-8, 4536-7 ####[facility] [id number] [address] [address] [place] Monocytes/100 WBC (Bld) 7.5 % Normal [facility] Comment on above: Order Comment: Speci men Type: BLOOD SPECIMENOrdering Facility: [facility] Address: [address] [place] [address] Performed By: #### 5 7021-8, 4536-7 ####[facility] [id number] [place] [address] [place] Neutrophils (Bld) [#/Vol] 6.85 10*3/uL Normal 1.45-7.50 [facility] Comment on above: Order Comment: Speci men Type: BLOOD SPECIMENOrdering Facility: [facility] Address: [address] [place] [address] Performed By: #### 5 7021-8, 7 ####[facility] [id number] [place] [address] [place] Neutrophils/100 WBC (Bld) 69.0 % Normal [facility] Comment on above: Order Comment: Speci men Type: BLOOD SPECIMENOrdering Facility: [facility] Address: [address] [place] [address] Performed By: #### 5 7021-8, 4536-7 ####[facility] [id number] [place] [address] [place] Nucleated RBC (Bld) [#/Vol] 10*3/uL Normal <0.01 [facility] Comment on above: Order Comment: Speci men Type: BLOOD SPECIMENOrdering Facility: [facility] Address: [address] [place] [address] Performed By: #### 5 7021-8, 4536-7 ####[facility] [id number] [place] [id number] [place] Nucleated RBC/100 WBC (Bld) [Ratio] 0.0 /100 WBC Normal [facility] Comment on above: Order Comment: Speci men Type: BLOOD SPECIMENOrdering Facility: [facility] Address: [address] [place] [address] Performed By: #### 5 7021-8, 7 ####[facility] [id number] [place] [address] [place] Platelet mean volume (Bld) [Entitic vol] 11.3 fL Normal 9.0-12.7 [facility] Comment on above: Order Comment: Speci men Type: BLOOD SPECIMENOrdering Facility: [facility] Address: [address] [place] [address] Performed By: #### 5 7021-8, 7 ####[facility] [id number] [place] [address] [place] Platelets (Bld) [#/Vol] 345 10*3/uL Normal 150-400 [facility] Comment on above: Order Comment: Speci men Type: BLOOD SPECIMENOrdering Facility: [facility] Address: [address] [place] [address] Performed By: #### 5 7021-8, 7 ####[facility] [id number] [place] [id number] [place] RBC (Bld) [#/Vol] 4.16 10*6/uL Low 4.20-6.00 [facility] Comment on above: Order Comment: Speci men Type: BLOOD SPECIMENOrdering Facility: [facility] Address: [address] [place] [address] Performed By: #### 5 7021-8, 7 ####[facility] [id number] [place] [address] [place] WBC (Bld) [#/Vol] 9.93 10*3/uL Normal 3.70-11.00 [facility] Comment on above: Order Comment: Speci men Type: BLOOD SPECIMENOrdering Facility: [facility] Address: [address] [place] [address] Performed By: #### 5 7021-8, 4537-7 ####[facility] [id number] [place] [address] [place] [facility]Non [facility] HYUN ELI[facility] ([id number]) 1975 M Date Time Provider Department [facility] we recorded [...] [D64.9] Order(s):BASIC METABOLIC PANEL [SQBMP] Order #: [id number] FUTURE COMPLETE BLOOD COUNT AND DIFFERENTIAL [SQCBCDIF] Order #: [id number] FUTURE IRON AND TIBC [SQIRON] Order #: [id number] FUTURE VITAMIN B12 [SQB12] Order #: [id number] FUTURE FOLATE, SERUM [SQSERFOL] Order #: [id number] FUTURE FERRITIN [SQFERR] Order #: [id number] FUTURE SEDIMENTATION RATE, WESTERGREN [SQWSR] Order #: [id number] FUTURE Prescriptions as of 12/18/2024 - oxyCODONE [...] Status:Closed by RAIZA RODRIGEZ on 12/18/24 Normal [facility] ESR Westergren method (Bld) [Velocity]on 12-18-2024 ESR (Bld) [Velocity] 97 mm/h High [facility] Interpretation and review of laboratory results Abnormal [facility] ESR (Bld) [Velocity] 97 mm/h High 0-15 [facility] Comment on above: Order Comment: Speci men Type: BLOOD SPECIMENOrdering Facility: [facility] Address: [address] [place] [address] Performed By: #### 5 7021-8, 4537-7 ####[facility] [id number] [place] [address] [place] FERRITINon 12-18-2024 Ferritin [Mass/Vol] 419 ng/mL 30.3 - 565.7 ng/mL [facility] Ferritin SerPl-mCncon 2024 Ferritin [Mass/Vol] 419.0 ng/mL Normal 30.3-565.7 [facility] Comment on above: Order Comment: Speci men Type: BLOOD SPECIMENOrdering Facility: [facility] Address: [address] [place] [address] Performed By: #### 2 4321-2, 64964-6, 2276-4 ####[facility] [id number] [place] [address] [place] Ferritin [Mass/Vol]on 2024 Interpretation and review of laboratory results Normal [facility] Folate SerPl-mCncon 12-19-19 25 Folate [Mass/Vol] 4.6 ng/mL Low >4.7 [facility] Comment on above: Order Comment: Speci men Type: BLOOD SPECIMENOrdering Facility: [facility] Address: [address] [place] [address] Performed By: #### 2 284-8, 2132-9 ####[facility] [id number] [place] [address] [place] Iron and Iron binding capaci ty panelon 12-18-2024 Iron [Mass/Vol] 16 ug/dL Low 41 - 186 ug/dL [facility] Iron binding capacity [Mass/Vol] 249 ug/dL 232 - 386 ug/dL [facility] Iron/TIBC [Molar ratio] 6.4 % Low 15.0 - 57.0 % [facility] Iron [Mass/Vol] 16 ug/dL Low 41-186 [facility] Comment on above: Order Comment: Speci men Type: BLOOD SPECIMENOrdering Facility: [facility] Address: [address] [place] [address] Performed By: #### 2 4321-2, 24019-4, 2275-4 ####[facility] [id number] [place] [address] [place] Iron binding capacity [Mass/Vol] 249 ug/dL Normal 232-386 [facility] Comment on above: Order Comment: Speci men Type: BLOOD SPECIMENOrdering Facility: [facility] Address: [address] [place] [address] Performed By: #### 2 4321-2, 39948-1, 4 ####[facility] [id number] [place] [address] [place] Iron/TIBC [Molar ratio] 6.4 % Low 15.0-57.0 [facility] Comment on above: Order Comment: Speci men Type: BLOOD SPECIMENOrdering Facility: [facility] Address: [address] [place] [address] Performed By: #### 2 4321-2, 74691-2, 2275-10 ####[facility] [id number] [place] [id number] [place] No Panel Informationon 12-18 Interpretation and review of laboratory results Abnormal [facility] Urinalysis complete panel (U )on 12-18-2024 Bacteria LM.HPF (Urine sed) [#/Area] Negative Normal Negative [facility] Comment on above: Order Comment: Speci men Type: URINE SPECIMENOrdering Facility: [facility] Address: [address] [place] [address] Performed By: #### 2 4356-8 ####[facility] [id number] [facility] [address] [place] [address] [place] Bilirubin Ql (U) Negative Normal Negative [facility] Comment on above: Order Comment: Speci men Type: URINE SPECIMENOrdering Facility: [facility] Address: [address] [place] [address] Performed By: #### 2 4356-8 ####[facility] [id number] [address] [place] [address] [place] Clarity (Unsp spec) Clear Normal Clear [facility] Comment on above: Order Comment: Speci men Type: URINE SPECIMENOrdering Facility: [facility] Address: [address] [place] [address] Performed By: #### 2 4356-8 ####[facility] [id number] [address], [facility] [place] [facility] Color (U) Yellow Normal Yellow [facility] Comment on above: Order Comment: Speci men Type: URINE SPECIMENOrdering Facility: [facility] Address: [address] [place] [address] Performed By: #### 2 4356-8 ####[facility] [id number] [address], [facility] [place] Epithelial cells LM.HPF (Urine sed) [#/Area] None Seen Normal [facility] Comment on above: Order Comment: Speci men Type: URINE SPECIMENOrdering Facility: [facility] Address: [address] [place], [place] [address] Performed By: #### 2 4356-8 ####[facility] [id number] [address], [facility] [place] Glucose Test strip (U) [Mass/Vol] Trace Abnormal Negative [facility] Comment on above: Order Comment: Speci men Type: URINE SPECIMENOrdering Facility: [facility] Address: [address] [place] [address] Performed By: #### 2 4356-8 ####[facility] [id number] [place] [address] [place] Hemoglobin Ql (U) Negative Normal Negative [facility] Comment on above: Order Comment: Speci men Type: URINE SPECIMENOrdering Facility: [facility] Address: [address] [place] [address] Performed By: #### 2 4356-8 ####[facility] [id number] [place] [address] [place] Hyaline casts (Urine sed) [#/Area] 1-3 /LPF Abnormal 0 /LPF [facility] Comment on above: Order Comment: Speci men Type: URINE SPECIMENOrdering Facility: [facility] Address: [address] [place] [address] Performed By: #### 2 4356-8 ####[facility] [id number] [place] [address] [place] Ketones Ql (U) Negative Normal Negative [facility] Comment on above: Order Comment: Speci men Type: URINE SPECIMENOrdering Facility: [facility] Address: [address] [place] [address] Performed By: #### 2 4356-8 ####[facility] [id number] [address], [place] [address] [place] Leukocyte esterase Test strip Ql (U) Negative Normal Negative [facility] Comment on above: Order Comment: Speci men Type: URINE SPECIMENOrdering Facility: [facility] Address: [address] [place] [address] Performed By: #### 2 4356-8 ####[facility] [id number] [place] [id number] [place] Nitrite Ql (U) Negative Normal Negative [facility] Comment on above: Order Comment: Speci men Type: URINE SPECIMENOrdering Facility: [facility] Address: [address] [place] [address] Performed By: #### 2 4356-8 ####[facility] [id number] [place] [address] [place] pH (U) 6.0 [pH] Normal <8.5 [facility] Comment on above: Order Comment: Speci men Type: URINE SPECIMENOrdering Facility: [facility] Address: [address] [place] [address] Performed By: #### 2 4356-8 ####[facility] [id number] [place] [address] [place] Protein (U) [Mass/Vol] Negative Normal Negative [facility] Comment on above: Order Comment: Speci men Type: URINE SPECIMENOrdering Facility: [facility] Address: [address] [place] [address] Performed By: #### 2 4356-8 ####[facility] [id number] [place] [address] [place] RBC LM.HPF (Urine sed) [#/Area] 0-2 /HPF Normal 0-2 /HPF [facility] Comment on above: Order Comment: Speci men Type: URINE SPECIMENOrdering Facility: [facility] Address: [address] [place] [address] Performed By: #### 2 4356-8 ####[facility] [id number] [place] [id number] [place] Specific gravity (U) [Rel density] 1.017 Normal 1.005-1.030 [facility] Comment on above: Order Comment: Speci men Type: URINE SPECIMENOrdering Facility: [facility] Address: [address] [place] [address] Performed By: #### 2 4356-8 ####[facility] [id number] [place] [address] [place] Urobilinogen Ql (U) 0.2 EU/dL Normal 0.2-1.0 EU/dL [facility] Comment on above: Order Comment: Speci men Type: URINE SPECIMENOrdering Facility: [facility] Address: [address] [place] [address] Performed By: #### 2 4356-8 ####[facility] [facility] [id number] [place] [address] [place] WBC LM.HPF (Urine sed) [#/Area] 0-5 /HPF Normal 0-5 /HPF [facility] Comment on above: Order Comment: Speci men Type: URINE SPECIMENOrdering Facility: [facility] Address: [address] [place] [address] Performed By: #### 2 4356-8 ####[facility] [id number] [place] [address] [place] Vit B12 [facility] Cobalamin (Vitamin B12) [Mass/Vol] 346 pg/mL Normal 232-1245 [facility] Comment on above: Order Comment: Speci men Type: BLOOD SPECIMENOrdering Facility: [facility] Address: [address] [place] [address] Performed By: #### 2 284-8, 2132-9 ####[facility] [facility] [id number] [place] [address] [place] CBC W Auto Differential pane l (Bld)on 12-15-2024 Basophils (Bld) [#/Vol] 0.10 10*3/uL Normal <0.11 [facility] Comment on above: Order Comment: Speci men Type: BLOOD SPECIMENOrdering Facility: [facility] Address: [address] [place] [address] Performed By: #### 5 7021-8 ####[facility] [id number] [place] [address] [place] Basophils/100 WBC (Bld) 0.9 % Normal [facility] Comment on above: Order Comment: Speci men Type: BLOOD SPECIMENOrdering Facility: [facility] Address: [address] [place] [address] Performed By: #### 5 7021-8 ####[facility] [id number] [place] [address] [place] Differential cell count method Nom (Bld) Auto Normal [facility] Comment on above: Order Comment: Speci men Type: BLOOD SPECIMENOrdering Facility: [facility] Address: [address] [place] [address] Performed By: #### 5 7021-8 ####[facility] [id number] [place] [address] [place] Eosinophils (Bld) [#/Vol] 0.11 10*3/uL Normal <0.46 [facility] Comment on above: Order Comment: Speci men Type: BLOOD SPECIMENOrdering Facility: [facility] Address: [address] [place] [address] Performed By: #### 5 7021-8 ####[facility] [id number] [address] [place] Eosinophils/100 WBC (Bld) 1.0 % Normal [facility] Comment on above: Order Comment: Speci men Type: BLOOD SPECIMENOrdering Facility: [facility] Address: [address] [place] [address] Performed By: #### 5 7021-8 ####[facility] [id number] [place] [address] [place] Erythrocyte distribution width (RBC) [Ratio] 13.0 % Normal 11.5-15.0 [facility] Comment on above: Order Comment: Speci men Type: BLOOD SPECIMENOrdering Facility: [facility] Address: [address] [place] [address] Performed By: #### 5 7021-8 ####[facility] [id number] [place] [address] [place] Hematocrit (Bld) [Volume fraction] 37.9 % Low 39.0-51.0 [facility] Comment on above: Order Comment: Speci men Type: BLOOD SPECIMENOrdering Facility: [facility] Address: [address] [place] [address] Performed By: #### 5 7021-8 ####[facility] [id number] [place] [address] [place] Hemoglobin (Bld) [Mass/Vol] 12.4 g/dL Low 13.0-17.0 [facility] Comment on above: Order Comment: Speci men Type: BLOOD SPECIMENOrdering Facility: [facility] Address: [address] [place] [address] Performed By: #### 5 7021-8 ####[facility] [id number] [place] [address] [place] Immature granulocytes (Bld) [#/Vol] 0.08 10*3/uL Normal <0.10 [facility] Comment on above: Order Comment: Speci men Type: BLOOD SPECIMENOrdering Facility: [facility] Address: [address] [place] [address] Performed By: #### 5 7021-8 ####[facility] [id number] [place] [address] [place] Immature granulocytes/100 WBC (Bld) 0.7 % Normal [facility] Comment on above: Order Comment: Speci men Type: BLOOD SPECIMENOrdering Facility: [facility] Address: [address] [place] [address] Performed By: #### 5 7021-8 ####[facility] [id number] [place] [address] [place] Lymphocytes (Bld) [#/Vol] 1.68 10*3/uL Normal 1.00-4.00 [facility] Comment on above: Order Comment: Speci men Type: BLOOD SPECIMENOrdering Facility: [facility] Address: [address] [place] [address] Performed By: #### 5 7021-8 ####[facility] [id number] [address] [place] Lymphocytes/100 WBC (Bld) 14.6 % Normal [facility] Comment on above: Order Comment: Speci men Type: BLOOD SPECIMENOrdering Facility: [facility] Address: [address] [place] [address] Performed By: #### 5 7021-8 ####[facility] [id number] [place] [address] [place] MCH (RBC) [Entitic mass] 28.0 pg Normal 26.0-34.0 [facility] Comment on above: Order Comment: Speci men Type: BLOOD SPECIMENOrdering Facility: [facility] Address: [address] [place] [address] Performed By: #### 5 7021-8 ####[facility] [id number] [place] [address] [place] MCHC (RBC) [Mass/Vol] 32.7 g/dL Normal 30.5-36.0 [facility] Comment on above: Order Comment: Speci men Type: BLOOD SPECIMENOrdering Facility: [facility] Address: [address] [place] [address] Performed By: #### 5 7021-8 ####[facility] [id number] [place] [id number] [place] MCV (RBC) [Entitic vol] 85.6 fL Normal 80.0-100.0 [facility] Comment on above: Order Comment: Speci men Type: BLOOD SPECIMENOrdering Facility: [facility] Address: [address] [place] [address] Performed By: #### 5 7021-8 ####[facility] [id number] [place] [id number] [place] Monocytes (Bld) [#/Vol] 0.72 10*3/uL Normal <0.87 [facility] Comment on above: Order Comment: Speci men Type: BLOOD SPECIMENOrdering Facility: [facility] Address: [address] [place] [address] Performed By: #### 5 7021-8 ####[facility] [id number] [place] [address] [place] Monocytes/100 WBC (Bld) 6.3 % Normal [facility] Comment on above: Order Comment: Speci men Type: BLOOD SPECIMENOrdering Facility: [facility] Address: [address] [place] [address] Performed By: #### 5 7021-8 ####[facility] [id number] [place] [address] [place] Neutrophils (Bld) [#/Vol] 8.80 10*3/uL High 1.45-7.50 [facility] Comment on above: Order Comment: Speci men Type: BLOOD SPECIMENOrdering Facility: [facility] Address: [address] [place] [address] Performed By: #### 5 7021-8 ####[facility] [id number] [place] [id number] [place] Neutrophils/100 WBC (Bld) 76.5 % Normal [facility] Comment on above: Order Comment: Speci men Type: BLOOD SPECIMENOrdering Facility: [facility] Address: [address] [place] [address] Performed By: #### 5 7021-8 ####[facility] [id number] [place] [address] [place] Nucleated RBC (Bld) [#/Vol] 10*3/uL Normal <0.01 [facility] Comment on above: Order Comment: Speci men Type: BLOOD SPECIMENOrdering Facility: [facility] Address: [address] [place] [address] Performed By: #### 5 7021-8 ####[facility] [id number] [place] [address] [place] Nucleated RBC/100 WBC (Bld) [Ratio] 0.0 /100 WBC Normal [facility] Comment on above: Order Comment: Speci men Type: BLOOD SPECIMENOrdering Facility: [facility] Address: [address] [place] [address] Performed By: #### 5 7021-8 ####[facility] [id number] [place] [address] [place] Platelet mean volume (Bld) [Entitic vol] 11.9 fL Normal 9.0-12.7 [facility] Comment on above: Order Comment: Speci men Type: BLOOD SPECIMENOrdering Facility: [facility] Address: [address] [place] [address] Performed By: #### 5 7021-8 ####[facility] [id number] [place] [address] [place] Platelets (Bld) [#/Vol] 385 10*3/uL Normal 150-400 [facility] Comment on above: Order Comment: Speci men Type: BLOOD SPECIMENOrdering Facility: [facility] Address: [address] [place] [address] Performed By: #### 5 7021-8 ####[facility] [id number] [address] [address] [place] RBC (Bld) [#/Vol] 4.43 10*6/uL Normal 4.20-6.00 [facility] Comment on above: Order Comment: Speci men Type: BLOOD SPECIMENOrdering Facility: [facility] Address: [address] [place] [address] Performed By: #### 5 7021-8 ####[facility] [id number] [place] [address] [place] WBC (Bld) [#/Vol] 11.49 10*3/uL High 3.70-11.00 [facility] Comment on above: Order Comment: Speci men Type: BLOOD SPECIMENOrdering Facility: [facility] Address: [address] [place] [address] Performed By: #### 5 7021-8 ####[facility] [id number] [address] [place] CNOVon 12-15-20[facility] HYUN ELIAS ([id number]) 1975 M Date Time Provider Department 12/15/24 2:20 [facility] your visit today, we recorded [...] Yes Frequency: 2.0 times per week Comment: [place] per patient Reviewed current medications, allerg (more content not included)... Normal [facility] CRP SerPl-mCncon 12-15-2024 CRP [Mass/Vol] 8.7 mg/dL High <0.9 [facility] Comment on above: Order Comment: Speci men Type: BLOOD SPECIMENOrdering Facility: [facility] Address: [address] [place] [address] Performed By: #### 2 532-0, 3016-3, 75322-0, 1987- ####[place] [facility] [id number] [address] metabolic 2000 panelon 12-15-2024 Albumin [Mass/Vol] 3.9 g/dL Normal 3.9-4.9 [facility] Comment on above: Order Comment: Speci men Type: BLOOD SPECIMENOrdering Facility: [facility] Address: [address] [place], [place] [id number] Performed By: #### 2 532-0, 6-3, , 1987-11 ####[place] [facility] [id number] [place] [id number] [place] ALP [Catalytic activity/Vol] 72 U/L Normal 38-113 [facility] Comment on above: Order Comment: Speci men Type: BLOOD SPECIMENOrdering Facility: [facility] Address: [address] [place] [address] Performed By: #### 2 532-0, 3015-3, , 1987-11 ####[facility] [facility] [id number] [place] [id number] [place] ALT [Catalytic activity/Vol] 12 U/L Normal 10-54 [facility] Comment on above: Order Comment: Speci men Type: BLOOD SPECIMENOrdering Facility: [facility] Address: [address] [place], [place] [address] Performed By: #### 2 532-0, 3015-3, , 1987-11 ####[place] [facility] [id number] [place] [id number] [place] Anion gap [Moles/Vol] 16 mmol/L High 8-15 [facility] Comment on above: Order Comment: Speci men Type: BLOOD SPECIMENOrdering Facility: [facility] Address: [address] [place] [address] Performed By: #### 2 532-0, 3015-3, , 1987-11 ####[place] [facility] [id number] [address] [address] [place] AST [Catalytic activity/Vol] 15 U/L Normal 14-40 [facility] Comment on above: Order Comment: Speci men Type: BLOOD SPECIMENOrdering Facility: [facility] Address: [address] [place] [address] Performed By: #### 2 532-0, 6-3, , 1987-11 ####[place] [facility] [id number] [place] [address] [place] Bilirubin [Mass/Vol] 0.4 mg/dL Normal 0.2-1.3 [facility] Comment on above: Order Comment: Speci men Type: BLOOD SPECIMENOrdering Facility: [facility] Address: [address] [place] [address] Performed By: #### 2 532-0, 3, , 1987-11 ####[place] [facility] [id number] [place] [address] [place] Calcium [Mass/Vol] 9.5 mg/dL Normal 8.5-10.2 [facility] Comment on above: Order Comment: Speci men Type: BLOOD SPECIMENOrdering Facility: [facility] Address: [address] [place] [address] Performed By: #### 2 532-0, 3, , 1987-11 ####[place] [facility] [id number] [place] [address] [place] Chloride [Moles/Vol] 95 mmol/L Low 98-107 [facility] Comment on above: Order Comment: Speci men Type: BLOOD SPECIMENOrdering Facility: [facility] Address: [address] [place] [address] Performed By: #### 2 532-0, 3015-3, , 1987-11 ####[place] [facility] [id number] [place] [id number] [place] CO2 [Moles/Vol] 19 mmol/L Low 22-30 [facility] Comment on above: Order Comment: Speci men Type: BLOOD SPECIMENOrdering Facility: [facility] Address: [address] [place] [address] Performed By: #### 2 532-0, 3016-3, , 1987-11 ####[place] [facility] [id number] [address] [address] [place] Creatinine [Mass/Vol] 0.87 mg/dL Normal 0.73-1.22 [facility] Comment on above: Order Comment: Speci men Type: BLOOD SPECIMENOrdering Facility: [facility] Address: [address] [place] [address] Performed By: #### 2 532-0, 3015-3, , 1987-11 ####[place] [facility] [id number] [place] [address] [place] Creatinine and Glomerular filtration rate.predicted panel (S/P/Bld) 104 mL/min/1.73m??? Normal >=60 [facility] Comment on above: Order Comment: Speci men Type: BLOOD SPECIMENOrdering Facility: [facility] Address: [address] [place] [address] Result Comment: Anika mated Glomerular Filtration Rate [...] By: #### 2 532-0, 3015-3, , 1987-11 ####[place] [facility] [id number] [address] [address] [place] Glucose [Mass/Vol] 182 mg/dL High 74-99 [facility] Comment on above: Order Comment: Speci men Type: BLOOD SPECIMENOrdering Facility: [facility] Address: [address] [place] [address] Result Comment: The [place] Diabetes Association (ADA) provides guidance for cutoff [...] Standards of Medical Care in Diabetes 2016, [place] [employer]. Diabetes Care. 2016.39(Suppl 1). Performed By: #### 2 532-0, 3015-3, , 1987-11 ####[place] [facility] [id number] [place] [address] [place] Potassium [Moles/Vol] 4.4 mmol/L Normal 3.7-5.1 [facility] Comment on above: Order Comment: Speci men Type: BLOOD SPECIMENOrdering Facility: [facility] Address: [address] [place] [address] Performed By: #### 2 532-0, 3, , 1987-11 ####[place] [facility] [id number] [place] [id number] [place] Protein [Mass/Vol] 7.6 g/dL Normal 6.3-8.0 [facility] Comment on above: Order Comment: Speci men Type: BLOOD SPECIMENOrdering Facility: [facility] Address: [address] [place], [place] [address] Performed By: #### 2 532-0, 3015-3, , 1987-11 ####[place] [facility] [id number] [facility] [address] [address] [place] Sodium [Moles/Vol] 130 mmol/L Low 136-144 [facility] Comment on above: Order Comment: Speci men Type: BLOOD SPECIMENOrdering Facility: [facility] Address: [address] [place] [address] Performed By: #### 2 532-0, 6-3, , 1987-11 ####[place] [facility] [id number] [place] [id number] [place] Urea nitrogen [Mass/Vol] 11 mg/dL Normal 9-24 [facility] Comment on above: Order Comment: Speci men Type: BLOOD SPECIMENOrdering Facility: [facility] Address: [address] [place] [address] Performed By: #### 2 532-0, 3, , 1987-11 ####[place] [facility] [id number] [place] [address] [place] LDH SerPl-cCncon 12-15-2024 LDH [Catalytic activity/Vol] 186 U/L Normal 135-225 [facility] Comment on above: Order Comment: Speci men Type: BLOOD SPECIMENOrdering Facility: [facility] Address: [address] [place] [address] Result Comment: Hemo lysis present. The origin [...] By: #### 2 532-0, 6-3, , 1987-11 ####[place] [facility] [id number] [place] [id number] [place] TOXICOLOGY SCREEN, ROUTINE U RINEon 12-15-2024 Amphetamines Confirm (U) [Mass/Vol] Negative Normal Negative [facility] Comment on above: Order Comment: Speci men Type: URINE SPECIMENOrdering Facility: [facility] Address: [address] [place] [address] Result Comment: Cuto ff threshold at 1000 ng/mL. Performed By: #### U TOX2 ####[place] [facility] [id number] [place] [address] [place] BARBITURATES, URINE Negative Normal Negative [facility] Comment on above: Order Comment: Speci men Type: URINE SPECIMENOrdering Facility: [facility] Address: [address] [place] [address] Result Comment: Cuto ff threshold at 200 ng/mL. Performed By: #### U TOX2 ####[place] [facility] [id number] [place] [address] [place] BENZODIAZEPINES, UR Negative Normal Negative [facility] Comment on above: Order Comment: Speci men Type: URINE SPECIMENOrdering Facility: [facility] Address: [address] [place] [address] Result Comment: Cuto ff threshold at 200 ng/mL. Performed By: #### U TOX2 ####[place] [facility] [id number] [place] [address] [place] Cannabinoids Screen Ql (U) Positive Abnormal Negative [facility] Comment on above: Order Comment: Speci men Type: URINE SPECIMENOrdering Facility: [facility] Address: [address] [place] [address] Result Comment: Cuto ff threshold at 50 ng/mL. Performed By: #### U TOX2 ####[place] [facility] [id number] [place] [address] [place] Cocaine Ql (U) Negative Normal Negative [facility] Comment on above: Order Comment: Speci men Type: URINE SPECIMENOrdering Facility: [facility] Address: [address] [place] [address] Result Comment: Cuto ff threshold at 300 ng/mL. Performed By: #### U TOX2 ####[place] [facility] [id number] [place] [address] [place] Ethanol (U) [Mass/Vol] <11 Normal <11 [facility] Comment on above: Order Comment: Speci men Type: URINE SPECIMENOrdering Facility: [facility] Address: [address] [place] [address] Performed By: #### U TOX2 ####[place] [facility] [id number] [place] [address] [place] Opiates Screen Ql (U) Negative Normal Negative [facility] Comment on above: Order Comment: Speci men Type: URINE SPECIMENOrdering Facility: [facility] Address: [address] [place] [address] Result Comment: Cuto ff threshold at 300 ng/mL. Performed By: #### U TOX2 ####[place] [facility] [id number] [address] [place] oxyCODONE cutoff Screen (U) [Mass/Vol] Positive Abnormal Negative [facility] Comment on above: Order Comment: Speci men Type: URINE SPECIMENOrdering Facility: [facility] Address: [address] [place] [address] Result Comment: Cuto ff threshold at 100 ng/mL. Performed By: #### U TOX2 ####[place] [facility] [id number] [address] [place] Phencyclidine Ql (U) Negative Normal Negative [facility] Comment on above: Order Comment: Speci men Type: URINE SPECIMENOrdering Facility: [facility] Address: [address] [place] [address] Result Comment: Cuto ff threshold at 25 ng/mL. Performed By: #### U TOX2 ####[place] [facility] [id number] [place] [address] [place] TSH SerPl-aCncon 12-15-2024 TSH Qn 3.280 m[IU]/L Normal 0.270-4.200 [facility] Comment on above: Order Comment: Speci men Type: BLOOD SPECIMENOrdering Facility: [facility] Address: [address] [place] [address] Performed By: #### 2 532-0, 3016-3, 05649-0, 1988- ####[place] [facility] [id number] [place] [address] [place] XR ABDOMEN 1V [...] 2.6 cm. IMPRESSION: Nonobstructive bowel gas pattern. Senior Examiner: ARASH Transcribe Date/Time: Dec 15 2024 3:55P Dictated by : ELÍAS SAUNDERS MD This examination was interpreted and the report reviewed and electronically signed by: ELÍAS SAUNDERS MD on Dec 15 2024 3:56PM EST [id number] Normal [facility] XR Abdomen Supine and Uprigh ton 12-15-2024 IMPRESSION: Nonobstructive bowel gas pattern. Senior Examiner: PSCB Transcribe Date/Time: Dec 15 2024 3:55P [...] cm. DIVISION OF RADIOLOGY Provider, Peterson Magdaleno [facility] - 12/15/2024 * * *Final Report* [...] cm. IMPRESSION IMPRESSION: Nonobstructive bowel gas pattern. Senior Examiner: [facility] Transcribe Date/Time: Dec 15 2024 3:55P Dictated by : ELÍAS SAUNDERS MD This examination was interpreted and the report reviewed and electronically signed by: ELÍAS SAUNDERS MD on Dec 15 2024 3:56PM [facility] Radiology Study observation (narrative) Nataly julian [facility] XR Abdomen Supine and Uprigh tOrdered By: [facility] Provider on 12-15-2024 [facility] 11-28-2024 CNPN Telephone (FAMPWS) HYUN ELIAS ([id number]) 1975 M Date Time Provider Department 11/28/24 [...] Order(s):TOXICOLOGY SCREEN, ROUTINE URINE [SQUTOX2] Order #: [id number] oxyCODONE IR (ROXICODONE) 5 mg immediate release [...] Encounter Status:Closed by CRISTIAN ADAME on 11/28/24 [facility] Dana 11-23-2024 [facility] FACEMIHYUN BLACKBURN ([id number]) 1975 M Date Time Provider Department 11/23/24 [...] Encounter Status:Closed by Monserrat ALCANTARA on 11/23/24 [facility] CNOVon 11-22-2024 CNOV Office Visit (FAMPWS ) HYUN ELIAS ([id number]) 1975 M Date Time Provider Department 11/22/24 [...] visit: Abdominal pain, left sided Which facility: [facility] Date of visit: 11/12/24 Diagnosis: Lymphadenopathy Testing [...] marielena metastatic disease. The ER doc in [facility] referred to [facility]. Has been seen by [facility] on 11/14. They are going to [...] Yes Frequency: 2.0 times per week Comment: [place] per patient Reviewed current medications, allergies, past [...] Cessation encouraged. (more content not included)... Normal [facility] HbA1c (Bld)on 11-22-2024 Average glucose Estimated from glycated hemoglobin (Bld) [Mass/Vol] 169 mg/dL Normal [facility] Comment on above: Order Comment: Speci men Type: BLOOD SPECIMENOrdering Facility: [facility] Address: [address] [place] [address] Result Comment: eAG: (Estimated average glucose) is a calculated value from HgbA1c and is business office representative of the average blood glucose level in the last 2-3 month period. Performed By: #### 5 5454-3 ####[place] [facility] [id number] [place] [id number] [place] HbA1c (Bld) [Mass fraction] 7.5 % High 4.3-5.6 [facility] Comment on above: Order Comment: Speci men Type: BLOOD SPECIMENOrdering Facility: [facility] Address: [address] [place] [address] Result Comment: [place] Diabetes Association guidelines indicate that patients with HgbA1c in the range 5.7-6.4% are at increased risk for development of diabetes, and intervention by lifestyle modification may be beneficial. HgbA1c greater or equal to 6.5% is considered diagnostic of diabetes. Performed By: #### 5 5454-3 ####[place] [facility] [id number] [place] [id number] [place] Activated partial thrombopla stin time (aPTT) in platelet poor plasma by coagulation aOrdered By: Denny Moffett on 11-14-2024 aPTT Coag (PPP) [Time] 26.6 s 24.1-36.2 [facility] International normalized rat io (INR) calculationOrdered By: Denny Moffett on 11-14-2024 INR Coag (Bld) [Relative time] 1.1 {INR} [facility] PLATELET COUNTon 11-14-2024 Platelets (Bld) [#/Vol] 324 10*3/uL Normal 150-450 [facility] Comment on above: Performed By: #### L 501.5500, L501.7300, L501.7400 #### [facility] [address] [place], [address] Partial Thromboplast Timeon 11-14-2024 aPTT Coag (Bld) [Time] 26.6 s Normal 24.1-36.2 [facility] Comment on above: Performed By: #### L 501.5500, L501.7300, L501.7400 #### [facility] [address] [place], [address] Platelet countOrdered By: Benson on 11-14-2024 Platelets (Bld) [#/Vol] 324 10*3/uL 150-450 [facility] Prothrombin Time w/INRon INR Coag (PPP) [Relative time] 1.1 {INR} Normal [facility] Comment on above: Performed By: #### L 501.5500, L501.7300, L501.7400 #### [facility] [address] [place], [address] PT Coag (PPP) [Time] 14.0 s Normal 11.7-14.9 [facility] Comment on above: Performed By: #### L 501.5500, L501.7300, L501.7400 #### [facility] [address] [place], [address] Prothrombin timeOrdered By: Denny Moffett on 11-14-2024 PT Coag (PPP) [Time] 14.0 s 11.7-14.9 [facility] Pulmonary Visit Reporton Pulmonary Visit Report [facility] [place] [address] [place], [place] [address] OFFICE VISIT Date of Service: 11/14/24 MR#: [id number] Acct: [id number] Name: HYUN ELIAS Rep #: [id number] : 1975 Provider: Dr. Denny Moffett DO Age/Sex: 49/M Location: [facility] Status: Signed Assessment and Plan Assessment [...] hilar lymphadenopathy. The patient has an approximate 07-hpdu-wsmj smoking history and continues to smoke daily. 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 Normal [facility] Absolute lymphocyte countOrd ered By: Dionicio Grimes on 11-12-2024 Lymphocytes Auto (Unsp spec) [#/Vol] 2.09 10*3/uL 0.83-4.51 [facility] Absolute neutrophil countOrd ered By: Dionicio Grimes on 11-12-2024 Neutrophils (Bld) [#/Vol] 7.1 10*3/uL 2.0-7.7 [facility] Anion gap in Serum or Plasma Ordered By: Dionicio Grimes on 11-12-2024 Anion gap [Moles/Vol] 12 mmol/L 5-15 [facility] Automated lymphocyte count a s percentage of total leukocytesOrdered By: Dionicio Grimes on 11-12-2024 Lymphocytes/100 WBC Auto (Unsp spec) 20.4 % 19- [facility] BUN/creatinine ratioOrdered By: Dionicio Grimes on 11-12-2024 Urea nitrogen/Creatinine [Mass ratio] 14.3 mg/mg 10-20 [facility] Basophil percentageOrdered B y: Dionicio Grimes on 11-12-2024 Basophils/100 WBC (Bld) 1.1 % High 0-1 [facility] Bilirubin, totalOrdered By: Dionicio Grimes on 11-12-2024 Bilirubin [Mass/Vol] 0.29 mg/dL 0.00-1.30 [facility] CBC W/Diff, Automatedon Absolute Lymph 2.09 X10 3/uL Normal 0.83-4.51 [facility] Comment on above: Performed By: #### L 501.5500, L501.7300, L501.7400 #### [facility] [address] [place], [address] Absolute Neut 7.1 X10 3/uL Normal 2.0-7.7 [facility] Comment on above: Performed By: #### L 501.5500, L501.7300, L501.7400 #### [facility] [address] [place], [address] Basophils/100 WBC (Bld) 1.1 % High 0-1 W [facility] Comment on above: Performed By: #### L 501.5500, L501.7300, L501.7400 #### [facility] [address] [place], [address] Eosinophils/100 WBC (Bld) 1.8 % Normal 0-5 [facility] Comment on above: Performed By: #### L 501.5500, L501.7300, L501.7400 #### [facility] [address] [place], [address] Erythrocyte distribution width (RBC) [Ratio] 13.4 % Normal 11.6-14.6 [facility] Comment on above: Performed By: #### L 501.5500, L501.7300, L501.7400 #### [facility] [address] [place], [address] Hematocrit (Bld) [Volume fraction] 41.5 % Normal 40-54 [facility] Comment on above: Performed By: #### L 501.5500, L501.7300, L501.7400 #### [facility] [address] [place], [address] Hemoglobin (Bld) [Mass/Vol] 13.9 g/dL Normal 13.0-16.5 [facility] Comment on above: Performed By: #### L 501.5500, L501.7300, L501.7400 #### [facility] [address] [place], [address] IG% 0.600 Normal 0.0-0.9 [facility] Comment on above: Result Comment: IG% - Immature Granulocytes (promyelocytes, myelocytes and metamyelocytes) > 1% indicates that a LEFT SHIFT is Present. Performed By: #### L 501.5500, L501.7300, L501.7400 #### [facility] [address] [place], [address] Lymphocytes/100 WBC (Bld) 20.4 % Normal 19-41 [facility] Comment on above: Performed By: #### L 501.5500, L501.7300, L501.7400 #### [facility] [address] [place], [address] MCH (RBC) [Entitic mass] 29.3 pg Normal 27.0-32.0 [facility] Comment on above: Performed By: #### L 501.5500, L501.7300, L501.7400 #### [facility] [address] [place], [address] MCHC (RBC) [Mass/Vol] 33.5 g/dL Normal 32-36 [facility] Comment on above: Performed By: #### L 501.5500, L501.7300, L501.7400 #### [facility] [address] [place], [address] MCV (RBC) [Entitic vol] 87.6 fL Normal 80-94 W [facility] Comment on above: Performed By: #### L 501.5500, L501.7300, L501.7400 #### [facility] [address] [place], [address] Monocytes/100 WBC (Bld) 6.5 % Normal 0-10 [facility] Comment on above: Performed By: #### L 501.5500, L501.7300, L501.7400 #### [facility] [address] [place], [address] Neutrophils/100 WBC (Bld) 69.6 % Normal 47-70 [facility] Comment on above: Performed By: #### L 501.5500, L501.7300, L501.7400 #### [facility] [address] [place], [address] Nucleated RBC (Bld) [#/Vol] 0 10*3/uL Normal 0-5 [facility] Comment on above: Performed By: #### L 501.5500, L501.7300, L501.7400 #### [facility] [address] [place], [address] Platelet mean volume (Bld) [Entitic vol] 11.4 fL Normal 6.2-12.0 [facility] Comment on above: Performed By: #### L 501.5500, L501.7300, L501.7400 #### [facility] [address] [place], [address] Platelets (Bld) [#/Vol] 262 10*3/uL Normal 150-450 [facility] Comment on above: Performed By: #### L 501.5500, L501.7300, L501.7400 #### [facility] [address] [place], [address] RBC (Bld) [#/Vol] 4.74 10*6/uL Normal 4.6-6.2 [facility] Comment on above: Performed By: #### L 501.5500, L501.7300, L501.7400 #### [facility] [address] [place], [address] RDW SD 43.4 fl Normal 35.1-43.9 [facility] Comment on above: Performed By: #### L 501.5500, L501.7300, L501.7400 #### [facility] [address] [place], [address] WBC (Bld) [#/Vol] 10.2 10*3/uL Normal 4.4-11.0 [facility] Comment on above: Performed By: #### L 501.5500, L501.7300, L501.7400 #### [facility] [address] [place], [address] CT Chest, Abd, Pel w/Contras ton 11-12-2024 CT Chest, Abd, Pel w/Contrast [facility] [address] [place] [address] CT Chest, Abd, Pel w/Contrast MR#: [id number] Acct: [id number] Name: HYUN ELIAS Rep #: [id number] : 1975 M 49 From: Jacquelyn Howell nd, MD PCP: Dr. Cristian Adame MD Status: [facility] ER Study: CT Chest, Abd, Pel w/Contrast Date of Exam: Exam# [id number] Ordering Dr: Dionicio Grimes DO PROCEDURE: CT [...] Lymph nodes: Mediastinal and hilar lymphadenopathy. A business office representative right paratracheal node measures 1.9 x 1.7 cm (series 3, image 43). No axillary lymphadenopathy. Heart and Vasculature: The heart is normal in size without pericardial effusion. No coronary artery calcifications. The great vessels are normal in caliber. Lungs and Airways: The central airways are patent. Innumerable pulmonary nodules throughout all 5 lung lobes. A business office representative right upper lobe subpleural pulmonary nodule [...] centrally necrotic retroperitoneal and gastric lymphadenopathy. A business office representative left lateral aortic/para-aortic node measures 2.9 [...] at 11:15 a.m. on 11/12/2024. Reading Location: [facility] CC: Dr. Dionicio Grimes DO; Dr. Cristian Adame MD Senior Examiner: Signed Normal [facility] Carbon dioxide, total [Moles /volume] in Central venous bloodOrdered By: Dionicio Grimes on 11-12-2024 CO2 [Moles/Vol] 21.4 mmol/L 21.0-32.0 [facility] Chloride assayOrdered By: Jamin Grimes on 11-12-2024 Chloride [Moles/Vol] 102 mmol/L 98-108 [facility] Comprehensive Metabolic Prof ilon 11-12-2024 Albumin [Mass/Vol] 3.8 g/dL Normal 3.5-5.0 [facility] Comment on above: Performed By: #### L 501.5500, L501.7300, L501.7400 #### [facility] [address] [place], [address] Albumin/Globulin [Mass ratio] 1.0 {ratio} Normal 0.9-2.4 [facility] Comment on above: Performed By: #### L 501.5500, L501.7300, L501.7400 #### [facility] [address] [place], [address] ALK PHOS 70 U/L Normal 40-129 [facility] Comment on above: Performed By: #### L 501.5500, L501.7300, L501.7400 #### [facility] [address] [place], [address] ALT [Catalytic activity/Vol] 8 U/L Normal <=46 [facility] Comment on above: Performed By: #### L 501.5500, L501.7300, L501.7400 #### [facility] [address] [place], [address] AST [Catalytic activity/Vol] 13 U/L Normal <=37 [facility] Comment on above: Performed By: #### L 501.5500, L501.7300, L501.7400 #### [facility] [address] [place], [address] Bilirubin [Mass/Vol] 0.29 mg/dL Normal 0.00-1.30 [facility] Comment on above: Performed By: #### L 501.5500, L501.7300, L501.7400 #### [facility] [address] [place], [address] BUN/CRE 14.3 RATIO Normal 10-20 [facility] Comment on above: Performed By: #### L 501.5500, L501.7300, L501.7400 #### [facility] [address] [place], [address] Calcium [Mass/Vol] 9.1 mg/dL Normal 7.6-11.0 [facility] Comment on above: Performed By: #### L 501.5500, L501.7300, L501.7400 #### [facility] [address] [place], [address] Chloride [Moles/Vol] 102 mmol/L Normal 98-108 [facility] Comment on above: Performed By: #### L 501.5500, L501.7300, L501.7400 #### [facility] [address] [place], [address] CO2 [Moles/Vol] 21.4 mmol/L Normal 21.0-32.0 [facility] Comment on above: Performed By: #### L 501.5500, L501.7300, L501.7400 #### [facility] [address] [place], [address] Creatinine [Mass/Vol] 0.85 mg/dL Normal 0.70-1.20 [facility] Comment on above: Performed By: #### L 501.5500, L501.7300, L501.7400 #### [facility] [address] [place], [address] ECRCL 102.82 ml/min Normal 50-250 [facility] Comment on above: Performed By: #### L 501.5500, L501.7300, L501.7400 #### [facility] [address] [place], [address] GAP 12 Normal 5-15 [facility] Comment on above: Performed By: #### L 501.5500, L501.7300, L501.7400 #### [facility] [address] [place], [address] GFR/1.73 sq M.predicted among non-blacks MDRD (S/P/Bld) [Vol rate/Area] 105 mL/min/{1.73_m2} Normal >60 [facility] Comment on above: Result Comment: mL/m in/1.73m2 CKD-EPI Creatinine Equation (2020) Performed By: #### L 501.5500, L501.7300, L501.7400 #### [facility] [address] [place], [address] Globulin (S) [Mass/Vol] 4.0 g/dL Normal 2.2-4.2 [facility] Comment on above: Performed By: #### L 501.5500, L501.7300, L501.7400 #### [facility] [address], [address] Glucose [Mass/Vol] 283 mg/dL High 70-99 [facility] Comment on above: Performed By: #### L 501.5500, L501.7300, L501.7400 #### [facility] [address] [place], [address] Potassium [Moles/Vol] 3.9 mmol/L Normal 3.3-5.1 [facility] Comment on above: Performed By: #### L 501.5500, L501.7300, L501.7400 #### [facility] [address] [place], [address] Sodium [Moles/Vol] 135 mmol/L Normal 133-145 [facility] Comment on above: Performed By: #### L 501.5500, L501.7300, L501.7400 #### [facility] [address] [place], [address] T PROT 7.8 g/dL Normal 5.9-8.4 [facility] Comment on above: Performed By: #### L 501.5500, L501.7300, L501.7400 #### [facility] [address] [place], [address] Urea nitrogen [Mass/Vol] 12 mg/dL Normal 4-19 [facility] Comment on above: Performed By: #### L 501.5500, L501.7300, L501.7400 #### [facility] [address] [place], [address] Emergency Department Summary on 11-12-2024 Emergency Department Summary [facility] Medical Records Department [address] [place] [address] Emergency Department Summary 11/12/24 MR#: [id number] Acct: [id number] Name: HYUN ELIAS Rep #: [id number] : 1975 49 From: Dionicio Grimes DO [...] reviewed, Vital signs reviewed Constitutional: please see [facility] HENT: MMM Eyes: Pupils equal round [...] MEDICAL DECISION MAKING: Chief Complaint: please see [facility] External records reviewed: Reviewed prior surgical intervention Factors affecting care: left inguinal hernia status post repair Social determinants of health: Denies alcohol History obtained from others: none Consults: none [facility] Narrative: The patient was initially hemodynamically [...] hepatobiliary ob (more content not included)... Normal [facility] Eosinophil percentageOrdered By: Dionicio Grimes on 11-12-2024 Eosinophils/100 WBC (Bld) 1.8 % 0-5 [facility] Erythrocyte distribution wid th ratioOrdered By: Dionicio Grimes on 11-12-2024 Erythrocyte distribution width (RBC) [Ratio] 13.4 % 11.6-14.6 [facility] Erythrocyte distribution wid th standard deviationOrdered By: Dionicio Grimes on 11-12-2024 Erythrocyte distribution width (RBC) [Ratio] 43.4 fl 35.1-43.9 [facility] Glomerular filtration rate ( GFR) estimation/1.73 sq m using serum, plasma, or whole bOrdered By: Dionicio Grimes on 11-12-2024 GFR/1.73 sq M.predicted among non-blacks MDRD (S/P/Bld) [Vol rate/Area] 105 mL/min/{1.73_m2} >60 [facility] Comment on above: mL/min/1.73m2 CKD-EP I Creatinine Equation (2020) Hematocrit Auto (Bld) [Volum e fraction]Ordered By: Dionicio Grimes on 11-12-2024 Hematocrit (Bld) [Volume fraction] 41.5 % 40-54 [facility] Hemoglobin measurementOrdere d By: Dionicio Grimes on 11-12-2024 Hemoglobin (Bld) [Mass/Vol] 13.9 g/dL 13.0-16.5 [facility] Immature granulocytes/100 WB C Auto (Bld)Ordered By: Dionicio Grimes on 11-12-2024 Immature granulocytes/100 WBC (Bld) 0.600 % 0.0-0.9 [facility] Comment on above: IG% - Immature Granu locytes (promyelocytes, myelocytes and metamyelocytes) > 1% indicates that a LEFT SHIFT is Present. Laboratory - Chemistry and C hemistry - challengeOrdered By: Dionicio Grimes on 11-12-2024 AST [Catalytic activity/Vol] 13 U/L <38 [facility] Lipaseon 11-12-2024 Lipase [Catalytic activity/Vol] 26 U/L Normal 13-75 [facility] Comment on above: Result Comment: Maria Ines greenberg note: LIPASE revised reference range effective 22. New Lipase methodology. Expected to produce lower values than the previous assay method. NEW Reference Range: 13 - 75 U/L Performed By: #### L 501.5500, L501.7300, L501.7400 #### [facility] [place], [address] Lipase measurementOrdered By : Dionicio Grimes on 11-12-2024 Lipase [Catalytic activity/Vol] 26 U/L 13-75 [facility] Comment on above: Please note:LIPASE r evised reference range effective 22. New Lipase methodology. Expected to produce lower values than the previous assay method. NEW Reference Range: 13 - 75 U/L MCV (mean corpuscular volume ) determinationOrdered By: Dionicio Grimes on 11-12-2024 MCV (RBC) [Entitic vol] 87.6 fL 80-94 [facility] Mean corpuscular hemoglobin (MCH) determinationOrdered By: Dionicio Grmies on 11-12-2024 MCH (RBC) [Entitic mass] 29.3 pg 27.0-32.0 [facility] Mean corpuscular hemoglobin concentration (MCHC) determinationOrdered By: Dionicio Grimes on 11-12-2024 MCHC (RBC) [Mass/Vol] 33.5 g/dL 32-36 [facility] Mean platelet volume determi nationOrdered By: Dionicio Grimes on 11-12-2024 Platelet mean volume (Bld) [Entitic vol] 11.4 fL 6.2-12.0 [facility] Monocyte percentageOrdered B y: Dionicio Grimes on 11-12-2024 Monocytes/100 WBC (Bld) 6.5 % 0-10 W [facility] Neutrophil percentageOrdered By: Dionicio Grimes on 11-12-2024 Neutrophils/100 WBC (Bld) 69.6 % 47-70 [facility] Nucleated red blood cell per centageOrdered By: Dionicio Grimes on 11-12-2024 Nucleated RBC/100 WBC (Bld) [Ratio] 0 % 0-5 [facility] Platelet countOrdered By: Jamin Grimes on 11-12-2024 Platelets (Bld) [#/Vol] 262 10*3/uL 150-450 [facility] Potassium measurement (mass/ volume)Ordered By: Dionicio Grimes on 11-12-2024 Potassium (Unsp spec) [Mass/Vol] 3.9 mmol/L 3.3-5.1 [facility] RBC Auto (Bld) [#/Vol]Ordere d By: Dionicio Grimes on 11-12-2024 RBC (Bld) [#/Vol] 4.74 10*6/uL 4.6-6.2 [facility] Serum creatinine measurement (mass/volume)Ordered By: Dionicio Grimes on 11-12-2024 Creatinine [Mass/Vol] 0.85 mg/dL 0.70-1.20 [facility] Serum globulin measurementOr dered By: Dionicio Grimes on 11-12-2024 Globulin (S) [Mass/Vol] 4.0 g/dL 2.2-4.2 [facility] Serum glucose measurement (m ass/volume)Ordered By: Dionicio Grimes on 11-12-2024 Glucose [Mass/Vol] 283 mg/dL High 70-99 [facility] Serum or plasma alanine montenegro otransferase (ALT) measurementOrdered By: Dionicio Grimes on 11-12-2024 ALT [Catalytic activity/Vol] 8 U/L <47 [facility] Serum or plasma albumin darien urement (mass/volume)Ordered By: Dionicio Grimes on 11-12-2024 Albumin [Mass/Vol] 3.8 g/dL 3.5-5.0 [facility] Serum or plasma albumin/glob ulin mass ratioOrdered By: Dionicio Grimes on 11-12-2024 Albumin/Globulin [Mass ratio] 1.0 {ratio} 0.9-2.4 [facility] Serum or plasma alkaline maría sphatase measurementOrdered By: Dionicio Grimes on 11-12-2024 ALP [Catalytic activity/Vol] 70 U/L 40-129 [facility] Serum or plasma calcium darien urement (mass/volume)Ordered By: Dionicio Grimes on 11-12-2024 Calcium [Mass/Vol] 9.1 mg/dL 7.6-11.0 [facility] Serum or plasma urea nitroge n measurement (mass/volume)Ordered By: Dionicio Sydney on 11-12-2024 Urea nitrogen [Mass/Vol] 12 mg/dL 4-19 [facility] Sodium levelOrdered By: Minh stephenie Boydrus on 11-12-2024 Sodium [Moles/Vol] 135 mmol/L 133-145 [facility] Total proteinOrdered By: Sparkle Grimes on 11-12-2024 Protein [Mass/Vol] 7.8 g/dL 5.9-8.4 [facility] White blood cell (WBC) count Ordered By: Dionicio Sydney on 11-12-2024 WBC (Bld) [#/Vol] 10.2 10*3/uL 4.4-11.0 [facility] CNPNon 11-09-2024 [facility]UN [facility] ([id number]) 1975 M Date Time Provider Department 11/09/24 [facility] During your visit today, we recorded [...] to call squad and be seen at [facility]. Marshall Tran RN Allergies As of Date: [...] Status:Closed by MARSHALL TRAN on 11/09/24 Normal [facility] CBC W Auto Differential pane l (Bld)on 11-01-2023 Basophils (Bld) [#/Vol] 0.08 10*3/uL [facility] Basophils/100 WBC (Bld) 1.2 % C [facility] Differential cell count method Nom (Bld) Auto [facility] Eosinophils (Bld) [#/Vol] 0.10 10*3/uL [facility] Eosinophils/100 WBC (Bld) 1.5 % [facility] Erythrocyte distribution width (RBC) [Ratio] 14.3 % 11.5 - 15.0 % [facility] Hematocrit (Bld) [Volume fraction] 49.6 % 39.0 - 51.0 % [facility] Hemoglobin (Bld) [Mass/Vol] 16.6 g/dL 13.0 - 17.0 g/dL [facility] Immature granulocytes (Bld) [#/Vol] 0.03 10*3/uL [facility] Immature granulocytes/100 WBC (Bld) 0.5 % [facility] Lymphocytes (Bld) [#/Vol] 2.23 10*3/uL [facility] Lymphocytes/100 WBC (Bld) 34.4 % [facility] MCH (RBC) [Entitic mass] 30.4 pg 26.0 - 34.0 pg [facility] MCHC (RBC) [Mass/Vol] 33.5 g/dL 30.5 - 36.0 g/dL [facility] MCV (RBC) [Entitic vol] 90.8 fL 80.0 - 100.0 fL [facility] Monocytes (Bld) [#/Vol] 0.40 10*3/uL [facility] Monocytes/100 WBC (Bld) 6.2 % C [facility] Neutrophils (Bld) [#/Vol] 3.64 10*3/uL [facility] Neutrophils/100 WBC (Bld) 56.2 % [facility] Nucleated RBC (Bld) [#/Vol] [facility] Nucleated RBC/100 WBC (Bld) [Ratio] 0.0 % /100 WBC [facility] Platelet mean volume (Bld) [Entitic vol] 11.8 fL 9.0 - 12.7 fL [facility] Platelets (Bld) [#/Vol] 192 10*3/uL [facility] RBC (Bld) [#/Vol] 5.46 10*6/uL 4.20 - 6.0 0 m/uL [facility] WBC (Bld) [#/Vol] 6.48 10*3/uL [facility] Cobalamin (Vitamin B12) [Mas s/Vol]on 11-01-2023 Interpretation and review of laboratory results Normal [facility] Comprehensive metabolic 2000 panelon 11-01-2023 Albumin [Mass/Vol] 4.4 g/dL 3.9 - 4.9 g/dL [facility] ALP [Catalytic activity/Vol] 78 U/L 38 - 113 U/L [facility] ALT [Catalytic activity/Vol] 18 U/L 10 - 54 U/L [facility] Anion gap [Moles/Vol] 8 mmol/L Low 9 - 18 mmol/L [facility] AST [Catalytic activity/Vol] 18 U/L 14 - 40 U/L [facility] Bilirubin [Mass/Vol] 0.4 mg/dL 0.2 - 1 .3 mg/dL [facility] Calcium [Mass/Vol] 10.0 mg/dL 8.5 - 10. 2 mg/dL [facility] Chloride [Moles/Vol] 105 mmol/L 97 - 10 5 mmol/L [facility] CO2 [Moles/Vol] 25 mmol/L 22 - 30 mmol/L [facility] Creatinine [Mass/Vol] 0.92 mg/dL 0.73 - 1.22 mg/dL [facility] GFR/1.73 sq M.predicted among non-blacks MDRD (S/P/Bld) [Vol rate/Area] 101 mL/min/{1.73_m2} - PINF [facility] Comment on above: Estimated Glomerular Filtration Rate [...] 113 mg/dL High 74 - 99 mg/dL [facility] Comment on above: The [place] Diabete [employer] Association (ADA) provides guidance for [...] Standards of Medical Care in Diabetes 2016, [place] [employer]. Diabetes Care. 2016.39(Suppl 1). Potassium [Moles/Vol] 4.2 mmol/L 3.7 - 5.1 mmol/L [facility] Protein [Mass/Vol] 7.4 g/dL 6.3 - 8.0 g/dL [facility] Sodium [Moles/Vol] 138 mmol/L 136 - 144 mmol/L [facility] Urea nitrogen [Mass/Vol] 10 mg/dL 9 - 24 mg/dL [facility] HbA1c (Bld)on 11-01-2023 Average glucose Estimated from glycated hemoglobin (Bld) [Mass/Vol] 146 mg/dL [facility] Comment on above: eAG: (Estimated aver age glucose) is a calculated value from HgbA1c and is business office representative of the average blood glucose level in the last 2-3 month period. HbA1c (Bld) [Mass fraction] 6.7 % High 4.3 - 5.6 % [facility] Comment on above: [place] Diabetes As sociation guidelines indicate that patients with HgbA1c in the range 5.7-6.4% are at increased risk for development of diabetes, and intervention by lifestyle modification may be beneficial. HgbA1c greater or equal to 6.5% is considered diagnostic of diabetes. Interpretation and review of laboratory results Abnormal [facility] LIPID PANEL, NONFASTINGon Cholesterol [Mass/Vol] 180 mg/dL NINF - 200 mg/dL [facility] Comment on above: <200 mg/dL, Desirabl e 200-239 mg/dL, Borderline high >239 mg/dL, High HDL Cholesterol, Nonfasting 38 mg/dL Low 39 - PINF mg/dL [facility] Comment on above: 40-59 mg/dL, Accepta ble >59 mg/dL, High: Negative risk factor for coronary heart disease <40 mg/dL, Low: Positive risk factor for coronary heart disease LDL Cholesterol, Nonfasting 117 mg/dL High NINF - 100 mg/dL [facility] Comment on above: <100 mg/dL, Optimal 100-129 mg/dL, Near optimal/above optimal 130-159 mg/dL, Borderline high 160-189 mg/dL, High >189 mg/dL, Very high Secondary prevention optimal LDL Cholesterol levels are recommended to be < 70 mg/dL LDL/HDL Ratio, Nonfasting 3.08 mg/dL High NINF - 2.54 mg/dL [facility] Comment on above: Reference: 1. National Cholesterol Education Program ATP III Guideline At-A-Glance Quick Desk Reference: National Heart, Lung, and Blood Th[place]ne. National Institutes of Health. 2001: NIH Publication No. 01-3305. 2. An International Atherosclerosis Society position paper: global recommendations for the management of dyslipidemia: executive summary, Atherosclerosis. 2014: 232(2):410-413. Non HDL Cholesterol, Nonfasting 142 mg/dL High NINF - 130 mg/dL [facility] Comment on above: <130 mg/dL, Optimal 130-159 mg/dL, Near optimal/above optimal 160-189 mg/dL, Borderline high 190-219 mg/dL, High >219 mg/dL, Very high Secondary prevention optimal non HDL Cholesterol levels are recommended to be <100 mg/dL Total Chol/HDL Ratio, Nonfasting 4.74 mg/dL NINF - 5.10 mg/dL [facility] Triglycerides, Nonfasting 125 mg/dL NINF - 150 mg/dL [facility] Comment on above: <150 mg/dL, Normal 150-199 mg/dL, Borderline high 200-499 mg/dL, High >499 mg/dL, Very high VLDL Cholesterol, Nonfasting 25 mg/dL NINF - 30 mg/dL [facility] MAGNESIUMon 11-01-2023 Magnesium [Mass/Vol] 2.1 mg/dL 1.7 - 2 .3 mg/dL [facility] Magnesium [Mass/Vol]on 10-31 Interpretation and review of laboratory results Normal [facility] No Panel Informationon 10-31 Interpretation and review of laboratory results Abnormal [facility] VITAMIN B12on 11-01-2023 Cobalamin (Vitamin B12) [Mass/Vol] 404 pg/mL 232 - 1245 pg/mL [facility] Office Visiton 12-02-2016 Alcoholism counseling (procedure) no Invalid Interpretation Code [facility] [employer] Work Phone: Documentation of current medications (procedure) T Invalid Interpretation Code [facility] [employer] Work Phone: Documentation of current medications (procedure) Done Invalid Interpretation Code [facility] [employer] Work Phone: Fall risk assessment No Invalid Interpretation Code [facility] [employer] Work Phone: Smoking cessation education (procedure) yes Invalid Interpretation Code [facility] [employer] Work Phone: Tobacco smoking status NHIS Never Invalid Interpretation Code [facility] [employer] Work Phone: Tobacco use [facility] Current every day smoker Invalid Interpretation Code [facility] [employer] Work Phone: Vital Signs Date Time Vital Sign Value Performing Clinician Facility 03-22-2025 00:49-0400 Body height 175.[address] Cristian Adame MD Work Phone: [facility] 03-22-2025 00:49-0400 Body mass index (BMI) [Ratio] 17.7 kg/m2 Dr. Cristian Adame MD Work Phone: [facility] 03-22-2025 00:49-0400 Body weight 54.[address] Cristian Adame MD Work Phone: [facility] 03-22-2025 00:48-0400 Body temperature 98.1 [degF] Dr. Cristian Adame MD Work Phone: [facility] 03-22-2025 00:48-0400 Diastolic blood pressure 68 mm[Hg] Dr. Cristian Adame MD Work Phone: [facility] 03-22-2025 00:48-0400 Heart rate 88 /min Dr. Cristian Adame MD Work Phone: [facility] 03-22-2025 00:48-0400 Respiratory rate 16 /min Dr. Cristian Adame MD Work Phone: [facility] 03-22-2025 00:48-0400 SaO2% (BldA) [Mass fraction] 99 % Dr. Cristian Adame MD Work Phone: [facility] 03-22-2025 00:48-0400 Systolic blood pressure 103 mm[Hg] Dr. Cristian Adame MD Work Phone: [facility] 03-20-2025 13:41-0400 Body mass index (BMI) [Ratio] 16.93 kg/m2 Gilda Suppan CHILDREN'S AIDE[employer]ACH[employer]END[employer] Work Phone: [facility] 03-20-2025 13:41-0400 Body temperature 98.2 [degF] Gilda Suppan CHILDREN'S AIDE[employer] MACHINE TENDER Work Phone: [facility] 03-20-2025 13:41-0400 Body weight 53.52 kg Gilda Suppan CHILDREN'S AIDE.W[employer] MACHINE TENDER Work Phone: [facility] 03-20-2025 13:41-0400 Diastolic blood pressure 58 mm[Hg] Gilda Suppan CHILDREN'S AIDE.WET MACHINE TENDER Work Phone: [facility] 03-20-2025 13:41-0400 Heart rate 124 /min Gilda Suppan CHILDREN'S AIDE.W[employer] MACHINE TENDER Work Phone: [facility] 03-20-2025 13:41-0400 SaO2% (BldA) [Mass fraction] 96 % Gilda Suppan CHILDREN'S AIDE.WET MACHINE TENDER Work Phone: [facility] 03-20-2025 13:41-0400 Systolic blood pressure 100 mm[Hg] Gilda Suppan CHILDREN'S AIDE.WET MACHINE TENDER Work Phone: [facility] 03-15-2025 08:31-0400 Body temperature 97.7 [degF] Dr. Cristian Adame MD Work Phone: [facility] 03-15-2025 08:31-0400 Diastolic blood pressure 69 mm[Hg] Dr. Cristian Adame MD Work Phone: [facility] 03-15-2025 08:31-0400 Heart rate 128 /min Dr. Cristian Adame MD Work Phone: 5([phone])939-852869 [place] [address] 03-15-2025 08:31-0400 Respiratory rate 16 /min Dr. Cristian Adame MD Work Phone: [phone])161-786269 [place] [address] 03-15-2025 08:31-0400 SaO2% (BldA) [Mass fraction] 96 % Dr. Cristian Adame MD Work Phone: 3([phone])062-029569 [place] [address] 03-15-2025 08:31-0400 Systolic blood pressure 106 mm[Hg] Dr. Cristian Adame MD Work Phone: 8(096)808-972469 [place] [address] 03-15-2025 08:22-0400 Body mass index (BMI) [Ratio] 18.4 kg/m2 Dr. Cristian Adame MD Work Phone: 1(515)586-268169 [place] [address] 03-15-2025 08:22-0400 Body weight 56.[address] Cristian Adame MD Work Phone: 3(055)210-862369 [place] [address] 03-08-2025 09:01-0400 Body height 175.[address] Cristian Adame MD Work Phone: 6([phone])284-202269 [place] [address] 03-08-2025 09:01-0400 Body mass index (BMI) [Ratio] 18.8 kg/m2 Dr. Cristian Adame MD Work Phone: 8(586)364-559969 [place] [address] 03-08-2025 09:01-0400 Body temperature 98.5 [degF] Dr. Cristian Adame MD Work Phone: 1(841)681-604569 [place] [address] 03-08-2025 09:01-0400 Body weight 58.[address] Cristian Adame MD Work Phone: 6(842)866-751369 [place] [address] 03-08-2025 09:01-0400 Diastolic blood pressure 77 mm[Hg] Dr. Cristian Adame MD Work Phone: 0([phone] [place] [address] 03-08-2025 09:01-0400 Heart rate 120 /min Dr. Cristian Adame MD Work Phone: 1(430)311-732069 [place] [address] 03-08-2025 09:01-0400 Respiratory rate 18 /min Dr. Cristian Adame MD Work Phone: 3(712)331-237369 [place] [address] 03-08-2025 09:01-0400 SaO2% (BldA) [Mass fraction] 94 % Dr. Cristian Adame MD Work Phone: 9(271)331-021469 [place] [address] 03-08-2025 09:01-0400 Systolic blood pressure 105 mm[Hg] Dr. Cristian Adame MD Work Phone: 6(969)114-281069 [place] [address] 03-07-2025 08:36-0400 Body height 175.[address] Cristian Adame MD Work Phone: 1(275)867-978969 [place] [address] 03-07-2025 08:36-0400 Body mass index (BMI) [Ratio] 18.8 kg/m2 Dr. Cristian Adame MD Work Phone: 8(935)971-825269 [place] [address] 03-07-2025 08:36-0400 Body temperature 97.4 [degF] Dr. Cristian Adame MD Work Phone: 8(556)729-913569 [place] [address] 03-07-2025 08:36-0400 Body weight 58.[address] Cristian Adame MD Work Phone: 9(067)261-728369 [place] [address] 03-07-2025 08:36-0400 Diastolic blood pressure 68 mm[Hg] Dr. Cristian Adame MD Work Phone: 4(399)835-592669 [place] [address] 03-07-2025 08:36-0400 Heart rate 124 /min Dr. Cristian Adame MD Work Phone: 8(540)073-769569 [place] [address] 03-07-2025 08:36-0400 Respiratory rate 18 /min Dr. Cristian Adame MD Work Phone: 4(123)954-369669 [place] [address] 03-07-2025 08:36-0400 SaO2% (BldA) [Mass fraction] 99 % Dr. Cristian Adame MD Work Phone: 6(308)184-899869 [place] [address] 03-07-2025 08:36-0400 Systolic blood pressure 98 mm[Hg] Dr. Cristian Adame MD Work Phone: 7(251)171-089269 [place] [address] 03-01-2025 14:52-0400 Diastolic blood pressure 71 mm[Hg] Dr. Cristian Adame MD Work Phone: 7(621)733-103769 [place] [address] 03-01-2025 14:52-0400 Heart rate 85 /min Dr. Cristian Adame MD Work Phone: 3(759)455-210069 [place] [address] 03-01-2025 14:52-0400 Respiratory rate 16 /min Dr. Cristian Adame MD Work Phone: 3(713)868-380969 [place] [address] 03-01-2025 14:52-0400 SaO2% (BldA) [Mass fraction] 99 % Dr. Cristian Adame MD Work Phone: 5(290)352-618069 [place] [address] 03-01-2025 14:52-0400 Systolic blood pressure 108 mm[Hg] Dr. Cristian Adame MD Work Phone: 7(073)485-998469 [place] [address] 03-01-2025 08:31-0400 Body height 175.[address] Cristian Adame MD Work Phone: 1(409)141-470569 [place] [address] 03-01-2025 08:31-0400 Body mass index (BMI) [Ratio] 19.4 kg/m2 Dr. Cristian Adame MD Work Phone: 4(916)832-604269 [place] [address] 03-01-2025 08:31-0400 Body temperature 98.4 [degF] Dr. Cristian Adame MD Work Phone: 2(427)456-140969 [place] [address] 03-01-2025 08:31-0400 Body weight 59.[address] Cristian Adame MD Work Phone: 0(610)104-013169 [place] [address] 03-01-2025 08:31-0400 Diastolic blood pressure 70 mm[Hg] Dr. Cristian Adame MD Work Phone: 9(365)929-933669 [place] [address] 03-01-2025 08:31-0400 Heart rate 111 /min Dr. Cristian Adame MD Work Phone: 7(654)354-170369 [place] [address] 03-01-2025 08:31-0400 Respiratory rate 18 /min Dr. Cristian Adame MD Work Phone: 5(349)001-243469 [place] [address] 03-01-2025 08:31-0400 SaO2% (BldA) [Mass fraction] 94 % Dr. Cristian Adame MD Work Phone: 2(873)620-692469 [place] [address] 03-01-2025 08:31-0400 Systolic blood pressure 102 mm[Hg] Dr. Cristian Adame MD Work Phone: 6(476)514-639769 [place] [address] 02-20-2025 11:50-0400 Body temperature 98.3 [degF] Dr. Cristian Adame MD Work Phone: 3(106)911-349469 [place] [address] 02-20-2025 11:50-0400 Diastolic blood pressure 70 mm[Hg] Dr. Cristian Adame MD Work Phone: 6(575)397-904769 [place] [address] 02-20-2025 11:50-0400 Heart rate 101 /min Dr. Cristian Adame MD Work Phone: 1(757)963-762569 [place] [address] 02-20-2025 11:50-0400 Respiratory rate 16 /min Dr. Cristian Adame MD Work Phone: 5(907)063-846569 [place] [address] 02-20-2025 11:50-0400 SaO2% (BldA) [Mass fraction] 95 % Dr. Cristian Adame MD Work Phone: 0(203)197-910669 [place] [address] 02-20-2025 11:50-0400 Systolic blood pressure 94 mm[Hg] Dr. Cristian Adame MD Work Phone: 9(731)822-263969 [place] [address] 02-20-2025 09:22-0400 Body height 175.[address] Cristian Adame MD Work Phone: 3(670)550-897469 [place] [address] 02-20-2025 09:22-0400 Body mass index (BMI) [Ratio] 19.8 kg/m2 Dr. Cristian Adame MD Work Phone: 5(004)823-921369 [place] [address] 02-20-2025 09:22-0400 Body weight [address] Cristian Adame MD Work Phone: 1(280)953-336969 [place] [address] 02-15-2025 14:11-0400 Body height 175.[address] Cristian Adame MD Work Phone: 2(397)206-517869 [place] [address] 02-15-2025 14:11-0400 Body mass index (BMI) [Ratio] 20.3 kg/m2 Dr. Cristian Adame MD Work Phone: 7(699)560-305444 [place] [address] 02-15-2025 14:11-0400 Body temperature 97.2 [degF] Dr. Cristian Adame MD Work Phone: 4(049)325-929569 [place] [address] 02-15-2025 14:11-0400 Body weight 62.[address] Cristian Adame MD Work Phone: 8(078)660-189669 [place] [address] 02-15-2025 14:11-0400 Diastolic blood pressure 66 mm[Hg] Dr. Cristian Adame MD Work Phone: 0(980)908-070569 [place] [address] 02-15-2025 14:11-0400 Heart rate 112 /min Dr. Cristian Adame MD Work Phone: 9(197)700-727069 [place] [address] 02-15-2025 14:11-0400 Respiratory rate 18 /min Dr. Cristian Adame MD Work Phone: 8(667)291-371669 [place] [address] 02-15-2025 14:11-0400 SaO2% (BldA) [Mass fraction] 92 % Dr. Cristian Adame MD Work Phone: 8(327)247-696869 [place] [address] 02-15-2025 14:11-0400 Systolic blood pressure 98 mm[Hg] Dr. Cristian Adame MD Work Phone: 7(843)038-726969 [place] [address] 02-13-2025 16:44-0400 Body height 175.[address] Cristian Adame MD Work Phone: 0(847)330-097369 [place] [address] 02-13-2025 16:43-0400 Body mass index (BMI) [Ratio] 20.8 kg/m2 Dr. Cristian Adame MD Work Phone: 1(143)792-335769 [place] [address] 02-13-2025 16:43-0400 Body temperature 98.5 [degF] Dr. Cristian Adame MD Work Phone: 3(474)301-925569 [place] [address] 02-13-2025 16:43-0400 Body weight 63.[address] Cristian Adame MD Work Phone: 4(376)964-965269 [place] [address] 02-13-2025 16:43-0400 Diastolic blood pressure 78 mm[Hg] Dr. Cristian Adame MD Work Phone: 4(527)250-276869 [place] [address] 02-13-2025 16:43-0400 Heart rate 111 /min Dr. Cristian Adame MD Work Phone: 6(537)666-159069 [place] [address] 02-13-2025 16:43-0400 Respiratory rate 18 /min Dr. Cristian Adame MD Work Phone: 8(714)236-517969 [place] [address] 02-13-2025 16:43-0400 SaO2% (BldA) [Mass fraction] 94 % Dr. Cristian Adame MD Work Phone: 7(011)233-078169 [place] [address] 02-13-2025 16:43-0400 Systolic blood pressure 112 mm[Hg] Dr. Cristian Adame MD Work Phone: 6(276)148-040469 [place] [address] 02-12-2025 14:31-0400 Body height 175.[address] Cristian Adame MD Work Phone: 7(645)928-743469 [place] [address] 02-12-2025 14:31-0400 Body mass index (BMI) [Ratio] 20.8 kg/m2 Dr. Cristian Adame MD Work Phone: 9(514)470-433869 [place] [address] 02-12-2025 14:31-0400 Body weight 64.[address] Cristian Adame MD Work Phone: 3(121)963-549169 [place] [address] 02-12-2025 14:23-0400 Body temperature 98 [degF] Dr. Cristian Adame MD Work Phone: 1(871)761-652769 [place] [address] 02-12-2025 14:23-0400 Diastolic blood pressure 73 mm[Hg] Dr. Cristian Adame MD Work Phone: 6(270)186-488269 [place] [address] 02-12-2025 14:23-0400 Heart rate 118 /min Dr. Cristian Adame MD Work Phone: 4(887)864-988169 [place] [address] 02-12-2025 14:23-0400 Respiratory rate 18 /min Dr. Cristian Adame MD Work Phone: 6(530)523-165169 [place] [address] 02-12-2025 14:23-0400 SaO2% (BldA) [Mass fraction] 95 % Dr. Cristian Adame MD Work Phone: [facility] 02-12-2025 14:23-0400 Systolic blood pressure 107 mm[Hg] Dr. Cristian Adame MD Work Phone: [facility] 01-30-2025 12:44-0400 Body mass index (BMI) [Ratio] 20.09 kg/m2 Gilda Suppan CHILDREN'S AIDE.WET MACHINE TENDER Work Phone: [facility] 01-30-2025 12:44-0400 Body temperature 98.49 [degF] Gilda Suppan CHILDREN'S AIDE.WET MACHINE TENDER Work Phone: [facility] 01-30-2025 12:44-0400 Body weight 63.5 kg Gilda Suppan CHILDREN'S AIDE.WET MACHINE TENDER Work Phone: [facility] 01-30-2025 12:44-0400 Diastolic blood pressure 58 mm[Hg] Gilda Suppan CHILDREN'S AIDE.WET MACHINE TENDER Work Phone: [facility] 01-30-2025 12:44-0400 Heart rate 113 /min Gilda Suppan CHILDREN'S AIDE.WET MACHINE TENDER Work Phone: [facility] 01-30-2025 12:44-0400 SaO2% (BldA) [Mass fraction] 95 % Gilda Suppan CHILDREN'S AIDE.WET MACHINE TENDER Work Phone: [facility] 01-30-2025 12:44-0400 Systolic blood pressure 100 mm[Hg] Gilda Suppan CHILDREN'S AIDE.WET MACHINE TENDER Work Phone: [facility] 01-18-2025 08:13-0400 Body height 175.[address] Cristian Adame MD Work Phone: [facility] 01-18-2025 08:13-0400 Body mass index (BMI) [Ratio] 21.7 kg/m2 Dr. Cristian Adame MD Work Phone: [facility] 01-18-2025 08:13-0400 Body temperature 97.6 [degF] Dr. Cristian Adame MD Work Phone: [facility] 01-18-2025 08:13-0400 Body weight 66.[address] Cristian Adame MD Work Phone: 8(894)450-446169 [place] [address] 01-18-2025 08:13-0400 Diastolic blood pressure 71 mm[Hg] Dr. Cristian Adame MD Work Phone: 2(070)185-931269 [place] [address] 01-18-2025 08:13-0400 Heart rate 112 /min Dr. Cristian Adame MD Work Phone: 4(155)994-907269 [place] [address] 01-18-2025 08:13-0400 Respiratory rate 16 /min Dr. Cristian Adame MD Work Phone: 9(440)918-238769 [place] [address] 01-18-2025 08:13-0400 SaO2% (BldA) [Mass fraction] 95 % Dr. Cristian Adame MD Work Phone: 5(731)562-204669 [place] [address] 01-18-2025 08:13-0400 Systolic blood pressure 105 mm[Hg] Dr. Cristian Adame MD Work Phone: 4(067)855-921169 [place] [address] 01-04-2025 14:49-0400 Diastolic blood pressure 81 mm[Hg] Dr. Cristian Adame MD Work Phone: 0(555)992-432069 [place] [address] 01-04-2025 14:49-0400 Heart rate 98 /min Dr. Cristian Adame MD Work Phone: 3(962)965-426469 [place] [address] 01-04-2025 14:49-0400 Respiratory rate 27 /min Dr. Cristian Adame MD Work Phone: 4(652)844-863369 [place] [address] 01-04-2025 14:49-0400 SaO2% (BldA) [Mass fraction] 95 % Dr. Cristian Adame MD Work Phone: 7(160)133-813069 [place] [address] 01-04-2025 14:49-0400 Systolic blood pressure 110 mm[Hg] Dr. Cristian Adame MD Work Phone: 2(361)128-150569 [place] [address] 01-04-2025 09:20-0400 Body height 175.[address] Cristian Adame MD Work Phone: 6(205)899-088969 [place] [address] 01-04-2025 09:20-0400 Body mass index (BMI) [Ratio] 23.6 kg/m2 Dr. Cristian Adame MD Work Phone: [facility] 01-04-2025 09:20-0400 Body temperature 98.8 [degF] Dr. Cristian Adame MD Work Phone: [facility] 01-04-2025 09:20-0400 Body weight 72.[address] Cristian Adame MD Work Phone: [facility] 12-15-2024 14:31-0400 Body mass index (BMI) [Ratio] 22.96 kg/m2 Cristian Adame MD Work Phone: [facility] 12-15-2024 14:31-0400 Body weight 72.58 kg Cristian Adame MD Work Phone: [facility] 12-15-2024 14:31-0400 Diastolic blood pressure 62 mm[Hg] Cristian Adame MD Work Phone: [facility] 12-15-2024 14:31-0400 Heart rate 111 /min Cristian Adame MD Work Phone: [facility] 12-15-2024 14:31-0400 SaO2% (BldA) [Mass fraction] 97 % Cristian Adame MD Work Phone: [facility] 12-15-2024 14:31-0400 Systolic blood pressure 102 mm[Hg] Cristian Adame MD Work Phone: [facility] 11-22-2024 10:43-0400 Body height 177.8 cm Cristian Adame MD Work Phone: [facility] 11-22-2024 10:43-0400 Body mass index (BMI) [Ratio] 23.68 kg/m2 Cristian Adame MD Work Phone: [facility] 11-22-2024 10:43-0400 Body weight 74.84 kg Cristian Adame MD Work Phone: [facility] 11-22-2024 10:43-0400 Diastolic blood pressure 86 mm[Hg] Cristian Adame MD Work Phone: [facility] 05-14-2025 10:43-0400 Heart rate 100 /min Cristian Adame MD Work Phone: [facility] 11-22-2024 10:43-0400 SaO2% (BldA) [Mass fraction] 96 % Cristian Adame MD Work Phone: [facility] 11-22-2024 10:43-0400 Systolic blood pressure 108 mm[Hg] Cristian Adame MD Work Phone: [facility] 11-14-2024 08:53-0400 Body height 175.[address] Cristian Adame MD Work Phone: [facility] 11-14-2024 08:53-0400 Body mass index (BMI) [Ratio] 24 kg/m2 Dr. Cristian Adame MD Work Phone: 2(939)769-853169 [place] [address] 11-14-2024 08:53-0400 Body temperature 98.2 [degF] Dr. Cristian Adame MD Work Phone: 2(529)397-278544 [place] [address] 11-14-2024 08:53-0400 Body weight 73.[address] Cristian Adame MD Work Phone: 9(538)860-762069 [place] [address] 11-14-2024 08:53-0400 Diastolic blood pressure 84 mm[Hg] Dr. Cristian Adame MD Work Phone: [facility] 11-14-2024 08:53-0400 Heart rate 88 /min Dr. Cristian Adame MD Work Phone: 5(467)032-955144 [place] [address] 11-14-2024 08:53-0400 Respiratory rate 18 /min Dr. Cristian Adame MD Work Phone: 1(007)405-738944 [place] [address] 11-14-2024 08:53-0400 SaO2% (BldA) [Mass fraction] 97 % Dr. Cristian Adame MD Work Phone: 3(119)539-095144 [place] [address] 11-14-2024 08:53-0400 Systolic blood pressure 125 mm[Hg] Dr. Cristian Adame MD Work Phone: 5(643)892-860569 [place] [address] 11-12-2024 11:48-0400 Body temperature 97.8 [degF] Dr. Cristian Adame MD Work Phone: [facility] 11-12-2024 11:48-0400 Diastolic blood pressure 74 mm[Hg] Dr. Cristian Adame MD Work Phone: [facility] 11-12-2024 11:48-0400 Heart rate 79 /min Dr. Cristian Adame MD Work Phone: 0(714)814-536169 [place] [address] 11-12-2024 11:48-0400 Respiratory rate 15 /min Dr. Cristian Adame MD Work Phone: 8(849)296-466644 [place] [address] 11-12-2024 11:48-0400 SaO2% (BldA) [Mass fraction] 98 % Dr. Cristian Adame MD Work Phone: 8(477)299-243844 [place] [address] 11-12-2024 11:48-0400 Systolic blood pressure 124 mm[Hg] Dr. Cristian Adame MD Work Phone: 7(849)261-542569 [place] [address] 11-12-2024 08:03-0400 Body mass index (BMI) [Ratio] 25.1 kg/m2 Dr. Cristian Adame MD Work Phone: 2(060)808-672344 [place] [address] 11-12-2024 08:03-0400 Body weight 77.[address] Cristian Adame MD Work Phone: [facility] 02-14-2024 14:36-0400 Body mass index (BMI) [Ratio] 25.25 kg/m2 Cristian Adame MD Work Phone: [facility] 02-14-2024 14:36-0400 Body weight 79.83 kg Cristian Adame MD Work Phone: [facility] 02-14-2024 14:36-0400 Diastolic blood pressure 92 mm[Hg] Cristian Adame MD Work Phone: [facility] 02-14-2024 14:36-0400 Heart rate 101 /min Cristian Adame MD Work Phone: [facility] 02-14-2024 14:36-0400 SaO2% (BldA) [Mass fraction] 95 % Cristian Adame MD Work Phone: [facility] 02-14-2024 14:36-0400 Systolic blood pressure 122 mm[Hg] Cristian Adame MD Work Phone: [facility] 11-01-2023 10:27-0400 Body mass index (BMI) [Ratio] 25.54 kg/m2 Gilda Suppan CHILDREN'S AIDE.SHEET METAL INSULATOR Work Phone: [facility] 11-01-2023 10:27-0400 Body weight 80.74 kg Gilda Suppan CHILDREN'S AIDE.SHEET METAL INSULATOR Work Phone: [facility] 11-01-2023 10:27-0400 Diastolic blood pressure 80 mm[Hg] Gilda Suppan CHILDREN'S AIDE.SHEET METAL INSULATOR Work Phone: [facility] 11-01-2023 10:27-0400 Heart rate 77 /min Gilda Suppan CHILDREN'S AIDE.SHEET METAL INSULATOR Work Phone: [facility] 11-01-2023 10:27-0400 Respiratory rate 18 /min Gilda Suppan CHILDREN'S AIDE.SHEET METAL INSULATOR Work Phone: [facility] 11-01-2023 10:27-0400 SaO2% (BldA) [Mass fraction] 97 % Gilda Suppan CHILDREN'S AIDE.SHEET METAL INSULATOR Work Phone: [facility] 11-01-2023 10:27-0400 Systolic blood pressure 138 mm[Hg] Gilda Suppan CHILDREN'S AIDE.SHEET METAL INSULATOR Work Phone: [facility] 12-30-2021 16:22-0400 Body weight 84.82 kg Cristian Adame MD Work Phone: [facility] 12-30-2021 16:22-0400 Diastolic blood pressure 82 mm[Hg] Cristian Adame MD Work Phone: [facility] 12-30-2021 16:22-0400 Heart rate 110 /min Cristian Adame MD Work Phone: [facility] 12-30-2021 16:22-0400 Respiratory rate 16 /min Cristian Adame MD Work Phone: [facility] 12-30-2021 16:22-0400 SaO2% (BldA) [Mass fraction] 97 % Cristian Adame MD Work Phone: [facility] 12-30-2021 16:22-0400 Systolic blood pressure 120 mm[Hg] Cristian Adame MD Work Phone: [facility] 12-02-2016 15:07-0400 BMI (Body Mass Index) 22.59 kg/m2 Hernan Vincent MD [facility] [employer] Work Phone: 12-02-2016 15:07-0400 Body Temperature 98.1 [degF] Hernan Vincent MD [facility] [employer] Work Phone: 12-02-2016 15:07-0400 BP Diastolic 76 mm[Hg] Hernan Vincent MD [facility] [employer] Work Phone: 12-02-2016 15:07-0400 BP Systolic 112 mm[Hg] Hernan Vincent MD [facility] [employer] Work Phone: 12-02-2016 15:07-0400 Height 175.26 cm Hernan Vincent MD [facility] [employer] Work Phone: 12-02-2016 15:07-0400 Pulse (Heart Rate) 61 /min Hernan Vincent MD [facility] [employer] Work Phone: 12-02-2016 15:07-0400 Pulse Oximetry 98 % Hernan Vincent MD [facility] [employer] Work Phone: 12-02-2016 15:07-0400 Respiratory Rate 16 /min Hernan Vincent MD [facility] [employer] Work Phone: 12-02-2016 15:07-0400 Weight 69.4 kg Hernan Vincent MD [facility] [employer] Work Phone: Encounters Encounter Date Encounter Type Care Provider Facility Start: 03-21-2025 Evaluation and manag ement of inpatient Dr. 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 Regino Burleson MD -[facility] Start: 03-08-[address] Regino Burleson MD -[facility] Start: 03-08-2025 End: 03-08-[address] Regino Burleson MD -[facility] Work Phone: Start: 03-08-2025 End: 03-08-[address] Cristian Adame MD Work Phone: [facility] Start: 03-07-2025 End: 03-07-2025 Patient encounter procedure Tayler Cardenas NP-C -[facility] Work Phone: Start: 03-07-2025 End: 03-07-[address] Cristian Adame MD Work Phone: [facility] Start: 03-01-[address] Regino Burleson MD -[facility] Start: 03-01-2025 End: 03-01-2025 Patient encounter procedure Yelena Gallegos NP-[place] -[facility] Work Phone: Start: 03-01-2025 End: 03-01-[address] Cristian Adame MD Work Phone: [facility] Comment on above: Refill Request Start: 02-20-2025 Non-patient / Non-visit Dr. Maris Vincent MD -[facility] Start: 02-20-2025 End: 02-20-2025 Admission to same day surgery center Dr. Hernan Vincent MD [facility] Start: 02-20-2025 End: 02-20-[address] Cristian Adame MD Work Phone: [facility] Start: 02-16-2025 End: 02-17-2025 Refill Gilda A Kyle BARRIENTOS Work Phone: [facility] Comment on above: Refill Request Start: 02-15-2025 End: 02-15-[address] Hernan Vincent MD -[facility] Work Phone: Start: 02-15-2025 End: 02-15-[address] Cristian Adame MD Work Phone: -[facility] Start: 02-13-2025 End: 02-13-2025 Patient encounter procedure Yelena Gallegos [facility] Work Phone: Start: 02-13-2025 End: 02-13-[address] Cristian Adame MD Work Phone: -[facility] Start: 02-13-[address] Regino Burleson MD -[facility] Start: 02-12-2025 End: 02-12-[address] Regino Burleson MD -[facility] Work Phone: Start: 02-12-2025 End: 02-12-[address] Cristian Adame MD Work Phone: -[facility] Start: 02-10-2025 End: 02-10-2025 Refill Cristian Adame MD Work Phone: [facility] Comment on above: Refill Request Start: 02-06-2025 End: 02-06-2025 Patient encounter procedure Tayler Cardenas FIRST MATE-C -[facility] Start: 02-06-2025 End: 02-06-2025 Refill Cristian Adame MD Work Phone: [facility] Comment on above: Refill Request Start: 02-06-2025 End: 02-06-2025 ambulatory Tayler Cardenas NP Facility:[facility] Start: 02-01-2025 End: 02-05-2025 Follow-up encounter Gilda Noonan APRN.WET MACHINE TENDER Work Phone: [facility] Start: 02-01-2025 End: 02-01-2025 ambulatory [facility] Facility:[facility] Start: 01-30-2025 End: 01-30-2025 Telephone encounter Gilda Noonan APRN.WET MACHINE TENDER Work Phone: [facility] Comment on above: Refill Request Start: 01-30-2025 End: 01-30-2025 Office outpatient visit 25 minutes Gilda Noonan APRN.WET MACHINE TENDER Work Phone: [facility] Comment on above: Dysuria (Primary Dx) ; Controlled type 2 diabetes mellitus without complication, with long-term current use of insulin (HCC); Acute constipation; Malignant neoplasm of lower lobe of lung, unspecified laterality (HCC) Start: 01-30-2025 End: 01-30-2025 ambulatory [facility] Facility:[facility] Start: 01-25-2025 End: 01-25-2025 Refill Cristian Adame MD Work Phone: [facility] Comment on above: Refill Request Start: 01-22-2025 End: 01-22-2025 Refill Cristian Adame MD Work Phone: [facility] Comment on above: Refill Request Start: 01-18-2025 End: 01-18-2025 Patient encounter procedure Tayler Cardenas FIRST MATE-C -[facility] Work Phone: Start: 01-18-2025 End: 01-18-[address] Cristian Adame MD Work Phone: -[facility] Start: 01-16-2025 End: 01-16-2025 Refill Cristian Adame MD Work Phone: [facility] Comment on above: Refill Request Start: 01-04-2025 End: 01-04-[address] Denny Moffett DO -Cat Scan [facility] Work Phone: Start: 01-04-2025 End: 01-04-2025 Refill Gilda Noonan APRN.CNP Work Phone: [facility] Comment on above: Refill Request Medication Problem Start: 01-04-2025 End: 01-04-[address] [facility] Facility:[facility] [place] Start: 12-27-2024 End: 12-27-2024 Telephone encounter Cristian Adame MD Work Phone: [facility] Comment on above: Patient Question Start: 12-21-2024 End: 12-21-2024 Telephone encounter Cristian Adame MD Work Phone: [facility] Comment on above: Patient Question Start: 12-20-2024 End: 12-20-2024 Refill Cristian Adame MD Work Phone: [facility] Comment on above: Refill Request Start: 12-19-2024 End: 12-19-2024 Telephone encounter Cristian Adame MD Work Phone: [facility] Comment on above: Results Start: 12-18-2024 End: 12-18-2024 ambulatory [facility] Facility:[facility] Start: 12-18-2024 End: 12-18-2024 Telephone encounter Cristian Adame MD Work Phone: [facility] Comment on above: Results Start: 12-15-2024 End: 12-15-2024 Subsequent hospital visit by physician X[facility] Work Phone: Radiology Comment on above: Acute constipation [ K59.00] Start: 12-15-2024 End: 12-15-2024 Patient encounter procedure Cristina Adame MD Work Phone: [facility] Comment on above: Hilar lymphadenopath y (Primary Dx); Medication monitoring encounter; Lymphadenopathy, abdominal; Lung nodules; Chest wall pain; Tobacco abuse; Gross hematuria; Acute constipation; Night sweats Start: 12-15-2024 End: 12-15-2024 ambulatory [facility] Facility:[facility] Start: 11-28-2024 End: 11-28-2024 Refill Cristian Adame MD Work Phone: [facility] [place] Comment on above: Refill Request Start: 11-23-2024 End: 11-23-2024 Telephone encounter Cristian Adame MD Work Phone: Pulmonology [facility] Comment on above: Results Start: 11-22-2024 End: 11-22-2024 ambulatory CRISTIAN ADAME Facility:[facility] Start: 11-22-2024 End: 11-22-2024 Patient encounter procedure Cristian Adame MD Work Phone: Family [facility] [place] Comment on above: Lung nodules (Primar y Dx); Controlled type 2 diabetes mellitus without complication, without long-term current use of insulin (HCC); Hyperlipidemia, mixed; Tobacco abuse; Lymphadenopathy, abdominal; Hilar lymphadenopathy Start: 11-22-2024 End: 11-22-2024 ambulatory CRISTIAN ADAME Facility:[facility] Start: 11-14-2024 End: 11-14-[address] Cristian Adame MD Work Phone: [facility] Work Phone: Start: 11-14-2024 End: 11-14-[address] Denny Moffett DO -Laboratory Work Phone: Start: 11-14-2024 End: 11-14-[address] Denny Moffett DO -[place] [facility] Work Phone: Start: 11-14-2024 End: 11-14-2024 ambulatory Denny Moffett Facility:[facility] Start: 11-14-2024 End: 11-14-2024 ambulatory Denny Moffett Facility:[facility] Start: 11-12-2024 End: 11-12-2024 Emergency department patient visit Dr. Dionicio Grimes DO -Emergency Department Work Phone: Start: 11-09-2024 End: 11-09-2024 ambulatory Cristian Adame MD Work Phone: [facility] [place] Comment on above: Chest Pain Start: 11-09-2024 End: 11-09-2024 Telephone encounter Cristian Adame MD Work Phone: [facility] [place] Comment on above: Chest Pain Start: 10-04-2024 End: 10-04-2024 Refill Cristian Adame MD Work Phone: [facility] [place] Comment on above: Refill Request Start: 02-16-2024 Telephone encounter Cristian Adame MD Work Phone: [facility] [place] Comment on above: Results Start: 02-14-2024 End: 02-14-2024 Patient encounter procedure Cristian Adame MD Work Phone: [facility] [place] Comment on above: Controlled type 2 di abetes mellitus without complication, without long-term current use of insulin (HCC) (Primary Dx); Hyperlipidemia, mixed; Tobacco abuse; Screening for prostate cancer; Encounter for screening examination for other mental health and behavioral disorders Start: 02-08-2024 Telephone encounter Cristian Adame MD Work Phone: [facility] [place] Comment on above: Appointment Start: 11-29-2023 Telephone encounter Gilda Noonan APRN.SHEET METAL INSULATOR Work Phone: [facility] [place] Comment on above: Medication Problem Start: 11-01-2023 Telephone encounter Gilda Noonan APRN.SHEET METAL INSULATOR Work Phone: [facility] [place] Comment on above: Results Start: 11-01-2023 End: 11-01-2023 Periodic preventive med est patient 40-64yrs Gilda Noonan APRN.SHEET METAL INSULATOR Work Phone: [facility] [place] Comment on above: Screening for colon cancer (Primary Dx); Hiatal hernia; Screening for diabetes mellitus; Screening for lipid disorders; Chronic pain of both knees; Tobacco abuse; Acute pharyngitis due to other specified organisms; Allergic contact dermatitis due to other agents Start: 10-27-2023 Telephone encounter Cristian Adame MD Work Phone: [facility] [place] Comment on above: Opened In Error Start: 10-08-2022 Refill Cristian Adame MD Work Phone: [facility] [place] Comment on above: Refill Request Start: 12-30-2021 End: 12-30-2021 Patient encounter procedure Cristian Adame MD Work Phone: [facility] Comment on above: Paresthesia (Primary Dx); Screening [...] panel - Serum or Plasma Gildaalan Noonan CHILDREN'S AIDE.SHEET METAL INSULATOR Work Phone: Start: 01-15-2021 Lipid 1996 panel - Serum or Plasma Cristian Adame MD Work Phone: H/O: surgery History of surge ry on arm Dr. Cristian Adame MD Work Phone: Plan of Treatment Date Care Activity Detail Author Start: 02-13-2029 Lipid panel Lipid Screening [facility] Start: 10-31-2028 Lipid panel Lipid Screening [facility] Start: 02-13-2027 Diabetes Screening Diabetes Screenin g [facility] Start: 10-31-2026 Diabetes Screening Diabetes Screenin g [facility] Start: 03-20-2026 Annual PCP Team Metal Template Maker starr Disease Visit Annual PCP Team Chronic Disease Visit [facility] Start: 02-16-2026 Annual PCP Team Metal Template Maker starr Disease Visit Annual PCP Team Chronic Disease Visit [facility] Start: 01-30-2026 Annual PCP Team Metal Template Maker starr Disease Visit Annual PCP Team Chronic Disease Visit [facility] Start: 01-15-2026 Lipid panel Lipid Screening [facility] Start: 01-15-2026 LIPID SCREEN LIPID SCREEN [facility] Start: 12-15-2025 Annual PCP Team Metal Template Maker starr Disease Visit Annual PCP Team Chronic Disease Visit [facility] Start: 11-22-2025 Annual PCP Team Metal Template Maker starr Disease Visit Annual PCP Team Chronic Disease Visit [facility] Start: 05-25-2025 Hemoglobin A1c measurement HbA1C [facility] Start: 04-12-2025 End: 04-12-2025 ambulatory 04/12/2025 9:40 AM EDT [facility] [address] [place] [address] Cristian Adame MD [address] [place] [address] 8 week folllow up for pain medication [facility] Comment on above: 8 week folllow up fo r pain medication Start: 03-23-2025 [facility] Start: 03-22-2025 Serum inorganic phos phate measurement [facility] Start: 03-22-2025 Thyroid stimulating hormone measurement [facility] Start: 03-22-2025 Application of intermittent pneumatic compression device [facility] Start: 03-22-2025 Aspiration precautions [facility] Start: 03-22-2025 Assessment of risk o f venous thromboembolism [facility] Start: 03-22-2025 Care regimes management [facility] Start: 03-22-2025 Incentive spirometry [facility] Start: 03-22-2025 Insertion of cathete r into peripheral vein [facility] Start: 03-22-2025 Measuring intake and output [facility] Start: 03-22-2025 Notification of physician [facility] Start: 03-22-2025 Oxygen therapy [facility] Start: 03-22-2025 Palliative care [facility] Start: 03-22-2025 Providing care accor ding to standard [facility] Start: 03-22-2025 Provision of activit y privileges [facility] Start: 03-22-2025 Referral to service [facility] Start: 03-22-2025 Verification routine [facility] Start: 03-22-2025 Admission procedure [facility] Start: 03-22-2025 T4 free measurement [facility] Start: 03-22-2025 Thyroid stimulating hormone measurement [facility] Start: 03-22-2025 End: 03-22-2025 [facility] Start: 03-20-2025 End: 03-20-2025 Patient encounter procedure 03/20/2025 1:40 PM EDT Office Visit [facility] [place] [address] [place] [address] Gilda Noonan APRN.WET MACHINE TENDER [address] [place] [address] Sore throat. See TE 03/19 [facility] Comment on above: Sore throat. See TE 03/19 Start: 03-15-2025 Venous catheter care management [facility] Start: 03-15-2025 Patient referral to dietitian [facility] Start: 03-12-2025 Influenza vaccination [facility] Start: 03-08-2025 [facility] Start: 03-01-2025 [facility] Start: 02-26-2025 End: 02-26-2025 Patient encounter procedure 02/26/2025 3:40 PM EDT Office Visit [facility] [address] [place] [address] Cristian Adame MD [address] [place], [place] [id number] 3 month follow up [facility] Comment on above: 3 month follow up Start: 02-20-2025 Anesthesia access ce ntral venous circulation ANESTH VASCULAR ACCESS [facility] Start: 02-20-2025 Insj tunneled ctr va d w/subq port age 3 yr/> INSERT TUNNELED CV CATH [facility] Start: 02-20-2025 Patient discharge [facility] Start: 02-13-2025 Anxiety Screening Anxiety Screening [facility] Start: 02-13-2025 Hepatitis B surface antibody level LDL Cholesterol [facility] Start: 02-12-2025 CBC W Auto Different ial panel - Blood [facility] Start: 02-12-2025 Comprehensive metabo lic 2000 panel - Serum or Plasma [facility] Start: 02-12-2025 Lactate dehydrogenas e measurement [facility] Start: 02-12-2025 Magnesium measurement W [facility] Start: 02-12-2025 Serum inorganic phos phate measurement [facility] Start: 02-12-2025 [facility] Start: 01-30-2025 End: 05-01-2025 Urinalysis complete panel - Urine URINALYSIS (WITH MICROSCOPIC) WITH CULTURE IF INDICATED Lab Routine Dysuria Expected: 01/30/2025, Expires: 05/01/2025 [facility] Work Phone: Comment on above: Expected: 01/30/2025 , Expires: 05/01/2025 Start: 01-24-2025 End: 01-24-2025 Patient encounter procedure 01/24/2025 4:20 PM EDT Office Visit [facility] [place] [address] [place] [address] Cristian Adame MD [address] [place] [address] 6 week follow up [facility] [place] Comment on above: 6 week follow up Start: 01-18-2025 End: 04-19-2025 CBC W Auto Differential panel - Blood COMPLETE BLOOD COUNT AND DIFFERENTIAL Lab Routine Anemia, unspecified type Expected: 01/18/2025, Expires: 04/19/2025 [facility] Comment on above: Expected: 01/18/2025 , Expires: 04/19/2025 Start: 01-18-2025 End: 04-19-2025 Ferritin [Mass/volume] in Serum or Plasma FERRITIN Lab Routine Anemia, unspecified type Expected: 01/18/2025, Expires: 04/19/2025 [facility] Comment on above: Expected: 01/18/2025 , Expires: 04/19/2025 Start: 01-18-2025 End: 04-19-2025 Folate [Mass/volume] in Serum or Plasma FOLATE, SERUM Lab Routine Anemia, unspecified type Folic acid deficiency Expected: 01/18/2025, Expires: 04/19/2025 [facility] Comment on above: Expected: 01/18/2025 , Expires: 04/19/2025 Start: 01-18-2025 End: 04-19-2025 Iron and Iron binding capacity panel - Serum or Plasma IRON AND TIBC Lab Routine Anemia, unspecified type Expected: 01/18/2025, Expires: 04/19/2025 [facility] Comment on above: Expected: 01/18/2025 , Expires: 04/19/2025 Start: 01-04-2025 CORE NDL BX LNG/MED PERQ CORE NDL BX LNG/MED PERQ [facility] Start: 01-04-2025 Catheterization of vein [facility] Start: 01-04-2025 Following clinical pathway protocol [facility] Start: 01-04-2025 Oxygen therapy [facility] Start: 01-04-2025 Patient discharge [facility] Start: 01-04-2025 Vital signs measurements [facility] Start: 12-18-2024 End: 12-18-2025 Cobalamin (Vitamin B12) [Mass/volume] in Serum or Plasma [facility] Work Phone: Comment on above: Expected: 12/18/2024 , Expires: 12/18/2025 Start: 12-18-2024 End: 12-18-2025 Folate [Mass/volume] in Serum or Plasma [facility] Comment on above: Expected: 12/18/2024 , Expires: 12/18/2025 Start: 12-15-2024 End: 03-16-2025 Bacteria identified in Urine by Culture BACTERIAL CULTURE, URINE Microbiology Routine Gross hematuria Expected: 12/15/2024, Expires: 03/16/2025 [facility] Comment on above: Expected: 12/15/2024 , Expires: 03/16/2025 Start: 12-15-2024 End: 03-16-2025 C reactive protein [Mass/volume] in Serum or Plasma [facility] Comment on above: Expected: 12/15/2024 , Expires: 03/16/2025 Start: 12-15-2024 End: 03-16-2025 CBC W Auto Differential panel - Blood [facility] Work Phone: Comment on above: Expected: 12/15/2024 , Expires: 03/16/2025 Start: 12-15-2024 End: 03-16-2025 Comprehensive metabolic 2000 panel - Serum or Plasma [facility] Comment on above: Expected: 12/15/2024 , Expires: 03/16/2025 Start: 12-15-2024 End: 03-16-2025 Erythrocyte sedimentation rate [facility] Comment on above: Expected: 12/15/2024 , Expires: 03/16/2025 Start: 12-15-2024 End: 03-16-2025 Lactate dehydrogenase [Enzymatic activity/volume] in Serum or Plasma [facility] Comment on above: Expected: 12/15/2024 , Expires: 03/16/2025 Start: 12-15-2024 End: 03-16-2025 Thyrotropin [Units/volume] in Serum or Plasma [facility] Comment on above: Expected: 12/15/2024 , Expires: 03/16/2025 Start: 12-15-2024 End: 03-16-2025 Urinalysis complete panel - Urine URINALYSIS, WITH MICROSCOPIC Lab Routine Gross hematuria Expected: 12/15/2024, Expires: 03/16/2025 [facility] Comment on above: Expected: 12/15/2024 , Expires: 03/16/2025 Start: 11-29-2024 End: 11-29-2024 Patient encounter procedure 11/29/2024 4:00 PM EDT Office Visit [facility] [place] [address] [place] [id number] Cristian Adame MD [address] [place], [place] [id number] Wellness Family [facility] [place] Comment on above: Wellness Start: 11-22-2024 End: 02-21-2025 Hemoglobin A1c in Blood [facility] Work Phone: Comment on above: Expected: 11/22/2024 , Expires: 02/21/2025 Start: 11-12-2024 [facility] Start: 11-12-2024 Referral to oncologist [facility] Start: 11-01-2024 End: 11-01-2024 Patient encounter procedure 11/01/2024 10:40 AM EDT Office Visit [facility] [place] [address] [place] [address] [place], [place] [id number] Cristian Adame MD [address] [facility] [place], [place] [phone] Physical [facility] [place] Comment on above: Physical Start: 10-31-2024 Covid-19 Vaccine () Covid-19 Vaccine () [facility] Comment on above: Postponed from 03/12 (Declined at this time) Start: 10-31-2024 Hepatitis B Vaccine (1 of 3 - 19+ 3-dose series) Hepatitis B Vaccine (1 of 3 - 19+ 3-dose series) [facility] Comment on above: Postponed from 07/29 (Declined at this time) Start: 10-31-2024 Pneumococcal vaccination Pneum ococcal Vaccine (1 of 2 - PCV) [facility] Comment on above: Postponed from 07/29 (Declined at this time) Start: 10-31-2024 Shingrix Vaccine (1 of 2) Welch grix Vaccine (1 of 2) [facility] Comment on above: Postponed from 07/29 (Declined at this time) Start: 10-31-2024 Urine microalbumin profile DTaP,Tdap,Td Vaccine (1 - Tdap) [facility] Comment on above: Postponed from 03/07 (Insurance Coverage) Start: 08-22-2024 End: 08-22-2024 Patient encounter procedure 08/22/2024 4:20 PM EST Office Visit [facility] [place] [address] [place] [id number] Cristian Adame MD [address] [place] [address] 6 month follow up [facility] [place] Comment on above: 6 month follow up Start: 08-16-2024 Hemoglobin A1c measurement HbA1C [facility] Start: 07-12-2024 Medicare Advantage A nnual Wellness Visit Medicare Advantage Annual Wellness Visit [facility] Start: 05-05-2024 End: 05-05-2024 Patient encounter procedure 05/05/2024 3:20 PM EDT Office Visit Family [facility] [place] [address] [place] [address] Cristian Adame MD [address] [place] [address] 3 month follow up [facility] [place] Comment on above: 3 month follow up Start: 05-03-2024 End: 08-02-2024 Hemoglobin A1c in Blood HEMOGLOBIN A1C Lab Routine Controlled type 2 diabetes mellitus without complication, without long-term current use of insulin (HCC) Expected: 05/03/2024 (Approximate), Expires: 08/02/2024 [facility] Work Phone: Comment on above: Expected: 05/03/2024 (Approximate), Expires: 08/02/2024 Start: 05-03-2024 End: 08-02-2024 Lipid 1996 panel - Serum or Plasma LIPID PANEL BASIC Lab Routine Hyperlipidemia, mixed Expected: 05/03/2024 (Approximate), Expires: 08/02/2024 [facility] Comment on above: Expected: 05/03/2024 (Approximate), Expires: 08/02/2024 Start: 05-01-2024 End: 05-01-2024 Patient encounter procedure 05/01/2024 12:40 PM EDT Office Visit [facility] [place] [address] [place], [place] [phone] Gilda Noonan CHILDREN'S AIDE.SHEET METAL INSULATOR [address] [place], [place] [phone] 6 month f/u DM/Cholesterol Family [facility] Comment on above: 6 month f/u DM/Lucia sterol Start: 03-12-2024 Covid-19 Vaccine ( season) Covid-19 Vaccine ( season) [facility] Start: 03-12-2024 Influenza vaccination [facility] Start: 02-28-2024 End: 02-28-2024 Patient encounter procedure 02/28/2024 1:30 PM EDT Office Visit Pulmonary Medicine [address] [place], [place] [phone] Noemí Roblero APRN.WET MACHINE TENDER [address] [place] [address] Tobacco abuse [Z72.0] [facility] Comment on above: Tobacco abuse [Z72.0 ] Start: 02-14-2024 End: 02-14-2024 Patient encounter procedure 02/14/2024 3:00 PM EDT Office Visit [facility] [place] [address] [place], [place] [phone] Cristian Adame MD [address] [place], [place] [phone] Check up and review medications [facility] [place] Comment on above: Check up and review medications Start: 02-14-2024 End: 05-15-2024 Hemoglobin A1c in Blood [facility] Comment on above: Expected: 02/14/2024 , Expires: 05/15/2024 Start: 02-14-2024 End: 05-15-2024 Lipid 1996 panel - Serum or Plasma [facility] Comment on above: Expected: 02/14/2024 , Expires: 05/15/2024 Start: 02-14-2024 End: 05-15-2024 PSA/PROSTATE SPECIFIC ANTIGEN SCREENING [facility] Work Phone: Comment on above: Expected: 02/14/2024 , Expires: 05/15/2024 Start: 01-16-2024 DIABETES SCREEN DIABETES SCREEN [facility] Start: 01-16-2024 Diabetes Screening Diabetes Screenin g [facility] Start: 11-29-2023 End: 11-29-2023 Patient encounter procedure 11/29/2023 9:00 AM EDT Office Visit Pulmonary Medicine [address] [place] [address] Noemí Roblero APRN.WET MACHINE TENDER [address] [place] [address] Tobacco abuse [Z72.0] [facility] Comment on above: Tobacco abuse [Z72.0 ] Start: 11-01-2023 End: 01-31-2024 25-hydroxyvitamin D3 [Mass/volume] in Serum or Plasma [facility] Comment on above: Expected: 11/01/2023 , Expires: 01/31/2024 Start: 2023 Screening for malign ant neoplasm of lung Lung Cancer Screening [facility] Start: 2023 Shingrix Vaccine (1 of 2) Welch grix Vaccine (1 of 2) [facility] Start: 03-12-2023 Covid-19 Vaccine ( season) Covid-19 Vaccine ( season) [facility] Start: 12-30-2022 Diabetic foot examination Diabetic F oot Exam [facility] Start: 03-12-2022 Influenza vaccination [facility] Start: 02-10-2022 End: 04-12-2022 Thyrotropin [Units/volume] in Serum or Plasma TSH BLD Lab Routine Paresthesia Expected: 02/10/2022, Expires: 04/12/2022 [facility] Work Phone: Comment on above: Expected: 02/10/2022 , Expires: 04/12/2022 Start: 12-30-2021 End: 03-01-2022 CBC W Auto Differential panel - Blood CBC + DIFF Lab Routine Paresthesia Expected: 12/30/2021, Expires: 03/01/2022 [facility] Work Phone: Comment on above: Expected: 12/30/2021 , Expires: 03/01/2022 Start: 12-30-2021 End: 03-01-2022 Cobalamin (Vitamin B12) [Mass/volume] in Serum or Plasma VITAMIN B12 BLOOD Lab Routine Paresthesia Expected: 12/30/2021, Expires: 03/01/2022 [facility] Work Phone: Comment on above: Expected: 12/30/2021 , Expires: 03/01/2022 Start: 12-30-2021 End: 03-01-2022 Comprehensive metabolic 2000 panel - Serum or Plasma COMP METABOLIC PANEL Lab Routine Paresthesia Expected: 12/30/2021, Expires: 03/01/2022 [facility] Work Phone: Comment on above: Expected: 12/30/2021 , Expires: 03/01/2022 Start: 12-30-2021 End: 03-01-2022 Folate [Mass/volume] in Serum or Plasma FOLATE SERUM Lab Routine Paresthesia Expected: 12/30/2021, Expires: 03/01/2022 [facility] Work Phone: Comment on above: Expected: 12/30/2021 , Expires: 03/01/2022 Start: 12-30-2021 End: 03-01-2022 PROTEIN ELECTROPHORESIS SERUM W/INTERP PROTEIN ELECTROPHORESIS SERUM W/INTERP Lab Routine Paresthesia Expected: 12/30/2021, Expires: 03/01/2022 [facility] Work Phone: Comment on above: Expected: 12/30/2021 , Expires: 03/01/2022 Start: 2018 COLOGUARD (FIT-DNA) COLOGUARD (FIT-D NA) [facility] Start: 2018 Colonoscopy COLONOSCOPY [facility] Start: 2018 COLORECTAL CANCER SCREENING COLORECTAL CANCER SCREENING [facility] Start: [address] COLONOGRAPHY [facility] Start: 2018 FECAL OCCULT BLOOD FECAL OCCULT BLOO D [facility] Start: 2018 Screening for malign ant neoplasm of colon [facility] Start: 2018 SIGMOIDOSCOPY SIGMOIDOSCOPY [facility] Start: 12-15-2016 End: 12-15-2016 Appointment Appointment [facility] [employer] Work Phone: Start: 12-02-2016 End: 12-02-2016 Appointment Appointment [facility] [employer] Work Phone: Start: 12-02-2016 End: 12-03-2016 Follow Up Appt 2 weeks Follow Up Appt 2 weeks [facility] [employer] Work Phone: Start: 03-07-2008 Urine microalbumin profile [facility] Start: 1992 Hepatitis B Vaccine (1 of 3 - 19+ 3-dose series) Hepatitis B Vaccine (1 of 3 - 19+ 3-dose series) [facility] Start: 1992 Pneumococcal Vaccine : 50+ (1 of 2 - PCV) Pneumococcal Vaccine: 50+ (1 of 2 - PCV) [facility] Start: 1991 Anxiety Screening Anxiety Screening [facility] Start: 1983 Glaucoma screening Dilated Retinal E xam [facility] Start: 1983 Hepatitis B screening Urine Al bumin:Creatinine Ratio [facility] Start: 1979 PNEUMOCOCCAL (1 - PCV) PNEUMOCOCCAL (1 - PCV) [facility] Start: 1979 Pneumococcal vaccination Pneum ococcal Vaccine (1 of 2 - PCV) [facility] Start: 1978 COVID-19 VACCINE (#1) COVID-19 VACCI NE (#1) [facility] Start: 01-26-1974 COVID-19 VACCINE (#1) COVID-19 VACCI NE (#1) [facility] Start: 1973 HEPATITIS B (1 of 3 - 3-dose series) HEPATITIS B (1 of 3 - 3-dose series) [facility] Alanine aminotransfe rase [Enzymatic activity/volume] in Serum or Plasma [facility] Alanine aminotransfe rase [Enzymatic activity/volume] in Serum or Plasma [facility] Alanine aminotransfe rase [Enzymatic activity/volume] in Serum or Plasma [facility] Albumin [Mass/volume ] in Serum or Plasma [facility] Albumin [Mass/volume ] in Serum or Plasma [facility] Albumin [Mass/volume ] in Serum or Plasma [facility] Alkaline phosphatase [Enzymatic activity/volume] in Serum or Plasma [facility] Alkaline phosphatase [Enzymatic activity/volume] in Serum or Plasma [facility] Alkaline phosphatase [Enzymatic activity/volume] in Serum or Plasma [facility] Anion gap in Serum o r Plasma [facility] Anion gap in Serum o r Plasma [facility] Anion gap in Serum o r Plasma [facility] Bilirubin, total measurement [facility] Bilirubin, total measurement [facility] Bilirubin, total measurement [facility] BUN/Creatinine ratio [facility] BUN/Creatinine ratio [facility] BUN/Creatinine ratio [facility] Calcium [Mass/volume ] in Serum or Plasma [facility] Calcium [Mass/volume ] in Serum or Plasma [facility] Calcium [Mass/volume ] in Serum or Plasma [facility] Carbon dioxide, tota l [Moles/volume] in Central venous blood [facility] Carbon dioxide, tota l [Moles/volume] in Central venous blood [facility] Carbon dioxide, tota l [Moles/volume] in Central venous blood [facility] COLOGUARD COLOGUARD Lab Ro radha Screening for colon cancer Ordered: 11/01/2023 [facility] Work Phone: Comment on above: Ordered: 11/01/2023 Creatinine [Mass/vol ume] in Serum or Plasma [facility] Creatinine [Mass/vol ume] in Serum or Plasma [facility] Creatinine [Mass/vol ume] in Serum or Plasma [facility] End: 12-30-2022 EMG(NEURO/NI) EMG(NEURO/NI) EMG Routine Paresthesia 1 Occurrences starting 12/30/2021 until 12/30/2022 [facility] Work Phone: Comment on above: 1 Occurrences starti ng 12/30/2021 until 12/30/2022 Erythrocyte mean corpuscular volume determination [facility] Erythrocyte mean corpuscular volume determination [facility] Erythrocyte mean corpuscular volume determination [facility] Exercise tolerance test [facility] Glucose [Mass/volume ] in Serum or Plasma [facility] Glucose [Mass/volume ] in Serum or Plasma [facility] Glucose [Mass/volume ] in Serum or Plasma [facility] Hematocrit [Volume Fraction] of Blood [facility] Hematocrit [Volume Fraction] of Blood [facility] Hematocrit [Volume Fraction] of Blood [facility] Hemoglobin [Mass/vol ume] in Blood [facility] Hemoglobin [Mass/vol ume] in Blood [facility] Hemoglobin [Mass/vol ume] in Blood [facility] Hemoglobin.gastroint letiin alRoseannalower [Presence] in Stool by Immunoassay IMMUNOCHEMICAL FECAL OCCULT BLOOD TEST Lab Routine Anemia, unspecified type Ordered: 12/19/2024 [facility] Work Phone: Comment on above: Ordered: 12/19/2024 Leukocytes [#/volume ] in Blood [facility] Leukocytes [#/volume ] in Blood [facility] Leukocytes [#/volume ] in Blood [facility] Magnesium measurement [facility] Mean corpuscular hemoglobin concentration determination [facility] Mean corpuscular hemoglobin concentration determination [facility] Mean corpuscular hemoglobin concentration determination [facility] Mean corpuscular hemoglobin determination [facility] Mean corpuscular hemoglobin determination [facility] Mean corpuscular hemoglobin determination [facility] Measurement of renal function [facility] Measurement of renal function [facility] Measurement of renal function [facility] Neutrophil count [facility] Neutrophil count [facility] Neutrophil count [facility] Neutrophil percent differential count [facility] Neutrophil percent differential count [facility] Neutrophil percent differential count [facility] Patient Education [facility] Work Phone: Patient referral [facility] Work Phone: Platelets [#/volume] in Blood [facility] Platelets [#/volume] in Blood [facility] Platelets [#/volume] in Blood [facility] Positron emission tomography with computed tomography [facility] Potassium measurement [facility] Potassium measurement [facility] Potassium measurement [facility] Red blood cell count [facility] Red blood cell count [facility] Red blood cell count [facility] Red cell distributio n width determination [facility] Red cell distributio n width determination [facility] Red cell distributio n width determination [facility] Serum chloride measurement [facility] Serum chloride measurement [facility] Serum chloride measurement [facility] Sodium measurement [facility] Sodium measurement [facility] Sodium measurement [facility] Total protein measurement [facility] Total protein measurement [facility] Total protein measurement [facility] TOXICOLOGY SCREEN, ROUTINE URINE TOXICOLOGY SCREEN, ROUTINE URINE Lab Routine Medication monitoring encounter 12/15/2024 3:10 PM EDT [facility] Urea nitrogen [Mass/volume] in Serum or Plasma [facility] Urea nitrogen [Mass/volume] in Serum or Plasma [facility] Urea nitrogen [Mass/volume] in Serum or Plasma [facility] Immunizations Immunization Date Immunization Notes Care Provider Anel briones 05-27-2018 influenza virus vacc ine, unspecified formulation Cristian Adame MD Work Phone: [facility] 03-06-2008 tetanus and diphther ia toxoids, adsorbed, preservative free, for adult use (2 Lf of tetanus toxoid and 2 Lf of diphtheria toxoid) Cristian Adame MD Work Phone: [facility] Payers Date Payer Category Payer Medicaid [id number] 2024 Unknown 2024 Self-pay 2014 Medicaid [id number] 2014 Medicare [id number] 2014 Medicare [facility] MEDIC[facility] MYC ARE [facility] MEDICARE [id number] 2014-Present [phone] [address] [place] [address] Medicare [id number] 2014 Medicare (Managed Care) [employer] MEDICARE [id number] 2014 Unknown [id number] Medicare [id number] Unknown [id number] [id number]. 462 Unknown [id number] 2.840.1.971172.3.579.2. 462 Unknown [id number] 2.0.1.503940.3.579.2. 462 Unknown [id number] 2.840.1.528165.3.579.2. 462 Unknown [id number] 2.840.1.212851.3.579.2. 462 Unknown [id number] 2.840.1.878637.3.579.2. 462 Unknown [id number] 2.16840.1.770392.3.579.2. 462 Unknown [id number] 2.840.1.131040.3.579.2. 462 Unknown [id number] 2.16.840.1.719712.3.579.2. 462 Unknown [id number] 2.16.840.1.034175.3.579.2. 462 Unknown [id number] 2.16.840.1.479981.3.579.2. 462 Unknown [id number] 2.16.840.1.212632.3.579.2. 462 Unknown [id number] 2.16.840.1.404955.3.579.2. 462 Unknown [id number] 2.16.840.1.470762.3.579.2. 462 Unknown [id number] 2.16.840.1.201539.3.579.2. 462 Social History Date Type Detail Facility Start: 07-27-2011 End: 11-22-2024 Tobacco smoking status SCIS Smokes tobacco daily [facility] History of tobacco use Cigarette Smoker [facility] Start: 12-30-2021 End: 03-20-2025 Alcohol intake Current drinker of alcohol (finding) [facility] Start: 1975 Sex Assigned At Not on file [facility] Start: 07-27-2011 End: 06-08-2023 Cigarettes smoked current (pack per day) - Reported 1 [facility] Work Phone: Start: 07-27-2011 End: 11-22-2024 Tobacco use and exposure Smokeless tobacco non-user [facility] Start: 02-04-2022 End: 06-08-2023 Tobacco use panel [facility] Work Phone: Start: 06-12-2012 Adult Depression Screening Assessment 0 [facility] Work Phone: Start: 04-01-2019 Tobacco Use Tobacco Use [facility] Start: 1975 Sex Assigned At Male W [facility] Start: 01-18-2025 End: 03-21-2025 Tobacco smoking status NHIS Ex-smoker (finding) [facility] Medical Equipment Procedure Code Equipment Code Equipment Origin al Text Equipment Identifier Dates Insertion, vascular access port [id number]) Vascular port/catheter ([id number] [facility] Start: 02-20-2025 Test blood sugar(s) once daily. Dx: DM type II. Insulin: No [id number] Start: 02-05-2025 Use with blood glucose test once daily [id number] Start: 02-05-2025 Goals Date Patient Goal Desired Activity /State Functional Status Date Assessment Result Facility 11-12-2014 Are you deaf, or do you have serious difficulty hearing No 11/12/2014 2:07 PM EDSepideh Ronquillo LPN [facility] 11-12-2014 Are you blind, or do you have serious difficulty seeing, even when wearing glasses No 11/12/2014 2:07 PM Sepideh Gray LPN [facility] 11-12-2014 Do you have serious difficulty walking or climbing stairs No 11/12/2014 2:07 PM Sepideh Gray LPN [facility] 11-12-2014 Do you have difficul ty dressing or bathing No 11/12/2014 2:07 PM Sepideh Gray LPN [facility] 11-12-2014 Because of a physica l, mental, or emotional condition, do you have difficulty doing errands alone such as visiting a physician's office or shopping No 11/12/2014 2:07 PM Sepideh Gray LPN [facility] Mental Status Date Assessment Result Facility 03-21-2025 Cognitive function Level Of Cons ciousness Awake;Alert;Appropriate;Fol lows Commands [facility] Work Phone: 02-20-2025 Cognitive function Voice/Name [facility] Work Phone: 01-04-2025 Cognitive function Awake;Alert;Appropriat e [facility] Work Phone: 11-12-2014 Because of a physica l, mental, or emotional condition, do you have serious difficulty concentrating, remembering, or making decisions No 11/12/2014 2:07 PM EDSepideh Ronquillo LPN [facility] Clinical Notes 05-08-2011 to 03-21-2025 Note Date & Type Note Facility 03-21-2025 Discharge summary [facility] 03-21-2025 Radiology Diagnostic study note [facility] Imaging Services [address] [place], [place] [address] Abdomen/Pelvis W IV Cont ONLY MR#: [id number] Acct: [id number] Name: HYUN ELIAS Rep #: [id number] : 1975 M 49 From: Panchito Chew MD PCP: Dr. Cristian Adame MD Status: REG E R Study:Abdomen/Pelvis W IV Cont ONLY Date of E xam: 03/21/25 Exam# [id number] Ordering Dr: Alexey Clifton DO PROCEDURE: ABDOMEN/PELVIS [...] of stool throughout the colon. Reading Location: [id number] CC: Dr. Lindsay Clifton DO; Dr. Cristian Adame MD ~ Senior Examiner: Signed [facility] 03-21-2025 Discharge summary Note Date/Time March 21, 2025 11:27pm [facility] Medical Records Department [address] [place] [address] Emergency Department Summary 03/21/25 MR#: [id number] Acct: [id number] Name: HYUN ELIAS Rep #:[id number] : 1975 49 From: Lindsay Clifton DO [...] Denies chest pain or shortness of breath. [facility] Medical History Constipation Encounter for antineoplastic [...] 73.1 H Lymph % (Auto) 14.6 L [place] % (Auto) 10.2 H Eos % (Auto) [...] Clarity Clear Urine pH 6.5 Ur Specific [place] 1.005 Urine Protein 30 H Urine Glucose [...] of stool throughout the colon. Reading Location: [facility] Discharge Plan Triage Chief Complaint: Weakness [...] MD [Primary Care Provider] - Print Language: Nepalese Disposition Disposition: Acute Care Hospital [facility] What to do if you have Problems For any increased pain, shortness of breath, bleeding, nausea or vomiting, chestpain, or any unexpected problems, contact your Primary Care Provider. Call [facility] ([phone]) or report to the closest Emergency Room. Call 911 if necessary. 03/21/25 0590 <Electronically signed by Lindsay Clifton DO> Cosigner Signature (if applicable): CC: Dr. Cristian Adame MD ~ Signed [facility] Work Phone: 1(356) 209-111409-10-2025 Telephone encounter Note* Telephone Encounter - Ghada Salazar MSW - 03/21/2025 9:25 AM EDT Sw and patient discussed home care waiver program through [facility] and Medicaid. Sw provided patient with home care waiver number [phone]. Patient notes that he will call and see about requesting home care waiver services. Sw will call patient back in a couple of weeks to see what patient learned from [place] [employer] and halfway services and supports. [facility]09-10-2025 Miscellaneous Notes* Telephone Encounter - Ghada Salazar MSW - 03/21/2025 9:25 AM EDT Sw and patient discussed home care waiver program through [facility] and Medicaid. Sw provided patient with home care waiver number [phone]. Patient notes that he will call and see about requesting home care waiver services. Sw will call patient back in a couple of weeks to see what patient learned from [place] [employer] and halfway services and supports. [facility]09-09-2025 Instructions* Patient Instructions* Gilda Noonan APRN.CNP - 03/20/2025 2:02 PM EDT - Start the liquid form of amoxicillin 10 ml 3 x day for 10 days as prescribed for your throat infection. - Gargle with warm salt water several times a day to help ease throat discomfort. - family service worker to call you about home health aide documented in [facility] encounter[facility]09-09-2025 History of Present illness Narrative* Gilda Noonan [...] - ICD9: 162.9, ICD10: C34.90 Consult social media coordinator for ? Home care if eligible - [...] Yes Frequency: 2.0 times per week Comment: [place] per patient documented in this encounterSum[facility]09-08-2025 Telephone encounter Note * Telephone Encounter - [...] 140 pm per request. Marshall Tran RN [facility]09-08-2025 Miscellaneous Notes* Telephone Encounter - Marshall Tran [...] request. Marshall Tran RN documented in this encounterSumma Health08-28-2025 Progress [facility] [address] [place] [address] OFFICE VISIT Date of Service: 03/08/25 0859 MR#: [id number] Acct: [id number] Name: HYUN ELIAS Rep #: [id number] : 1975 From: Regino Burleson MD Age/Sex: 49/M Location[facility] Status: Signed HPI Subjective Date of Service [...] Had dizzines after D1 but now fine. [facility] Medical History Constipation Encounter for antineoplastic chemotherapy [...] applicable) CC: Dr. Cristian Adame MD ~ [facility]08-28-2025 Progress note Author Regino Burleson [facility] Note Date/Time March 08, 2025 9: 34am [facility] Cancer [address] [address] OFFICE VISIT Date of Service: 03/08/25 0859 MR#: [id number] Acct: [id number] Name: HYUN ELIAS Rep #: [id number] : 1975 From: Regino Burleson MD Age/Sex: 49/M Location: [facility] Status: Signed HPI Subjective Date of Service [...] Had dizzines after D1 but now fine. [facility] Medical History Constipation Encounter for antineoplastic chemotherapy [...] applicable) CC: Dr. Cristian Adame MD ~ [employer] Work Phone: 1(221) 835-343408-21-2025 Telephone encounter Note* Telephone Encounter - Anna [...] Anton LPN March 01, 2025 12:19 PM [facility]08-21-2025 Miscellaneous Notes* Telephone Encounter - Anna Anton [...] 01, 2025 12:19 PM documented in this encounterSumma Health08-12-2025 Consult note Author Ana Viramontes [facility] Note Date/Time February 20, 2025 10 :15am [facility] Medical Records Department [address] [place] [address] Pre-Anesthesia Evaluation 02/20/25 1007 MR#: [id number] Acct: [id number] Name: HYUN ELIAS Rep #:[id number] : 1975 49 From: Ana grace CRNA PCP: Dr. Cristian Adame MD Status:REG S DC Y Race: C Location: [place] [address] ASA Classification* ASA Classification ASA Classification: 3 [...] POSSIBLE LEFT Anesthesia History Anesthesia History - mri tech: Anesthesia History - mri tech Hx Hospitalization No 02/15/25 15:09 Any Problems [...] take am of surgery PONV PONV - mri tech: PONV - mri tech Female No 02/15/25 15:09 HX of Motion [...] 02/20/25 09:22 Respiratory Assessment Respiratory Assessment - mri tech: Respiratory Tract Infection Hx - mri tech Hx Respiratory Tract Infection No 02/15/25 15:09 STOP Sleep Apnea STOP Sleep Apnea - mri tech: STOP Sleep Apnea - mri tech Hx Hypertension No 02/15/25 15:09 Hx Sleep [...] Tobacco Use History Tobacco Use History - mri tech: Tobacco Use History - mri tech Tobacco Use Smoking Status Former smoker 02/15/25 15:09 Hx Tobacco Use Yes 02/15/25 15:09 Years Smoking Packs Smoked per Day Smoking Cessation Date was Yes - quit smoking within 15 02/15/25 15:09 within the last 15 years years Hx Smoking Cessation Date Hx Smoking Cessation Counseling Hematologic Medial History Hematologic Hx - mri tech: 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 Hx of Blood Transfusion No 02/15/25 15:09 [...] confused, unrespo /Reproduction History /Reproductive History - mri tech: /Reproductive Hx- mri tech Hx Now Gestational Age (in weeks): EDC: [...] CRNA Cosigner Signature: Date CC: ~ Signed [facility] Work Phone: 1(229) 623-725208-12-2025 History and physical note Author Hernan Vincent [facility] Note Date/Time February 20, 2025 10 :05am [facility] Medical Records Department [address] [place] [address] History & Physical Exam 02/20/25 1005 MR#: [id number] Acct: [id number] Name: HYUN ELIAS Rep #:[id number] : 1975 49 From: Hernan guerrero MD PCP: Dr. Cristian Adame MD Status:REG S DC Location: [place] [address] History and Physical Date of Admission: 02/20/25 [...] willing to proceed. Hernan Vincent MD Pager: [facility] [address] [facility], [address] [place] [address] Office: I have examined the patient and the H&P has been reviewed. There are no clinicalchanges since date of exam. 02/20/25 1005 <Electronically signed by Hernan Vincent MD> Cosigner Signature (if applicable): CC: Dr. Hernan Vincent MD; Dr. Cristian Adame MD~ Signed [facility] Work Phone: 1(816) 440-970608-12-2025 Radiology Diagnostic study note [facility] Imaging Services [address] [place] [address] CXR for Line Placement MR#: [id number] Acct: [id number] Name: HYUN ELIAS Rep #: [id number] : 1975 M 49 From: Marlo Borden MD PCP: Dr. Cristian Adame MD Status: REG S DC Study:CXR for Line Placement Date of Exam: 02/20/25 Exam# [id number] Ordering Dr: Hernan Boyd MD PROCEDURE: CXR [...] the right port. No pneumothorax. Reading Location: [id number] CC: Dr. Hernan Vincent MD; Dr. Cristian Adame MD ~ Senior Examiner: Signed [facility]08-12-2025 Consult note [facility] Medical Records Department [address] [place] [address] Anesthesia Postop Eval I 02/20/25 1135 MR#: [id number] Acct: [id number] Name: HYUN ELIAS Rep #:[id number] : 1975 49 From: Ana grace CRNA PCP: Dr. Cristian Adame MD Status:REG S DC Y Race: C Location: [place] [address] Anesthesia: Postop Eval I Current Vital Signs [...] Eval 1 completed: Yes 02/20/25 1136 ely WAXER TENDER> Date _ Ana Viramontes WAXER TENDER Cosigner Signature: Date CC: ~ Signed [facility]08-12-2025 Discharge summary [facility] Medical Records Department [address] [place] [address] Instructions for Home/Discharge Instructions 02/20/25 1131 MR#: [id number] Acct: [id number] Name: HYUN ELIAS Rep #:[id number] : 1975 49 From: Hernan guerrero MD [...] With: Hernan Vincent MD When: as needed [phone] Test Results: Test results from this visit will be discussed in further detail at your follow- up appointment, if applicable. Discharge Plan Admission Attending Provider: Hernan Vincent Primary Care Provider: Cristian Adame Instructions Print Language: Nepalese Discharge Orders/Prescriptions Prescriptions: No Action folic acid [...] CC: Dr. Cristian Adame MD ~ Signed [facility]08-12-2025 Procedure note [facility] Medical Records Department [address] [place] [address] Operative Report 02/20/25 1130 MR#: [id number] Acct: [id number] Name: HYUN ELIAS Rep #:[id number] : 1975 49 From: Hernan guerrero MD PCP: Dr. Cristian Adame MD Status:REG S DC Location: [place] [address] Operative Report (Standard) Operative Information Date of Procedure: 02/20/25 Pre-Operative Diagnosis: Need for vascular access for chemotherapy for lung cancer Post-Operative Diagnosis: Same Surgery/Procedure Performed: Ultrasound and fluoroscopy guided right chest port placement utilizingright IJ oracle programmer: No Type of Anesthesia: Local MAC RN Documented Start/Stop Times: Operation Date: 02/20/25 11:00 Case Time Into Pre-Op 02/20/25 09:13 Out of Pre-Op 02/20/25 10:53 Anesthesia Start 02/20/25 10:55 Into Room 02/20/25 10:55 Procedure Start 02/20/25 11:13 Procedure End 02/20/25 11:26 Procedure Start Time: 11:13 Procedure Stop Time: : Select all DRAINS/GRAFTS/IMPLANTS that apply: Implanted device Implanted device details: 8 [place] [employer] Estimated Blood Loss: 5 Specimen collected: [...] Vincent MD; Dr. Cristian Adame MD~ Signed [facility]08-12-2025 Consult note [facility] Medical Records Department [address] [place] [address] Pre-Anesthesia Evaluation 02/20/25 1007 MR#: [id number] Acct: [id number] Name: HYUN ELIAS Rep #:[id number] : 1975 49 From: Ana grace CRNA PCP: Dr. Cristian Adame MD Status:REG S DC Y Race: C Location: [place] [address] ASA Classification* ASA Classification ASA Classification: 3 [...] POSSIBLE LEFT Anesthesia History Anesthesia History - mri tech: Anesthesia History - mri tech Hx Hospitalization No 02/15/25 15:09 Any Problems [...] take am of surgery PONV PONV - mri tech: PONV - mri tech Female No 02/15/25 15:09 HX of Motion [...] 02/20/25 09:22 Respiratory Assessment Respiratory Assessment - mri tech: Respiratory Tract Infection Hx - mri tech Hx Respiratory Tract Infection No 02/15/25 15:09 STOP Sleep Apnea STOP Sleep Apnea - mri tech: STOP Sleep Apnea - mri tech Hx Hypertension No 02/15/25 15:09 Hx Sleep [...] Tobacco Use History Tobacco Use History - mri tech: Tobacco Use History - mri tech Tobacco Use Smoking Status Former smoker 02/15/25 15:09 Hx Tobacco Use Yes 02/15/25 15:09 Years Smoking Packs Smoked per Day Smoking Cessation Date was Yes - quit smoking within 15 02/15/25 15:09 within the last 15 years years Hx Smoking Cessation Date Hx Smoking Cessation Counseling Hematologic Medial History Hematologic Hx - mri tech: 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 02/20/25 1015 ely WAXER TENDER> Date _ Ana Viramontes CRNA Cosigner Signature: Date CC: ~ Signed [facility]08-12-2025 History and physical note [facility] Medical Records Department [address] [place] [address] History & Physical Exam 02/20/25 1005 MR#: [id number] Acct: [id number] Name: HYUN ELIAS Rep #:[id number] : 1975 49 From: Hernan guerrero MD PCP: Dr. Cristian Adame MD Status:[facility] [place] Location: [place] [address] History and Physical Date of Admission: 02/20/25 [...] willing to proceed. Hernan Vincent MD Pager: [facility] [address], [address] [place] [address] Office: I have examined the patient and the H&P has been reviewed. There are no clinicalchanges since date of exam. 02/20/25 1005 Cosigner Signature (if applicable): CC: Dr. Hernan Vincent MD; Dr. Cristian Adame MD~ Signed [facility]08-12-2025 [facility] Medical Records Department [address] [place] [address] History Physical Exam 02/20/25 1005 MR#: [id number] Acct: [id number] Name: HYUN ELIAS Rep #: [id number] : 1975 49 From: Hernan Vincent MD PCP: Dr. Cristian Adame MD Status:[facility] Location: [place] [address] History and Physical Date of Admission: 02/20/25 [...] topical cream access 30 days #30 grams [facility] History Encounter for education Surgical History [...] is willing to proceed. (more content not included)...[facility]08-09-2025 Telephone encounter Note* Telephone Encounter - Emelia [...] Emelia Robertson February 17, 2025 10:35 AM [facility]08-09-2025 Miscellaneous Notes* Telephone Encounter - Emelia Riddle [...] 17, 2025 10:35 AM documented in this encounterSumma Health08-08-2025 NoteHNO ID: [id number] Author: CRISTIAN ADAME MD Service: ? Author [...] Yes Frequency: 2.0 times per week Comment: [place] per patient Reviewed current medications, allergies, past [...] done Hepatitis B Va (more content not included)...[facility] 02-15-2025 Progress [facility] [address] [place] [address]. [address] [place] [address] OFFICE VISIT Date of Service: 02/15/25 MR#: [id number] Acct: [id number] Name: HYUN ELIAS Rep #: [id number] : 1975 Provider: Dr. Justino Vincent MD Age/Sex: 49/M Location: [facility] Status: Signed Intake Vital Signs 02/12/25 14:31 [...] willing to proceed. Hernan Vincent MD Pager: [facility] [address] [place] [address], [address] [place] [address] Office: Coding Level of Care Code Off vis,new,level 3 Diagnoses Encounter for adjustment and management of vascular access device Z45.2 02/15/25 1439 logan NELSON> Date _ Hernan Vincent MD Cosign Signature: Date (if applicable) CC: Dr. Regino Burleson MD; Dr. Cristian Adame MD ~ [facility]08-07-2025 Progress note Author Hernan Vincent [facility] Note Date/Time February 15, 2025 2:3 9pm [facility] [address] [place] [address] [address] [place] [address] OFFICE VISIT Date of Service: 02/15/25 MR#: [id number] Acct: [id number] Name: HYUN ELIAS Rep #: [id number] : 1975 Provider: Dr. Justino Vincent MD Age/Sex: 49/M Location: [facility] Status: Signed Intake Vital Signs 02/12/25 14:31 [...] willing to proceed. Hernan Vincent MD Pager: [facility] [address] [place] [address], [address] [place] [address] Office: Coding Level of Care Code Off vis,new,level 3 Diagnoses Encounter for adjustment and management of vascular access device Z45.2 02/15/25 1439 <Electronically signed by Hernan ford MD> Date _ Hernan Vincent MD [facility] Signature: Date (if applicable) CC: Dr. Regino Burleson MD; Dr. Cristian Adame MD ~ [facility] Work Phone: 1(339) 717-703108-02-2025 Telephone encounter Note* Telephone Encounter - Marshall Tran RN - 02/10/2025 9:22 AM EDT Call placed to Trudy and notified with verbalized understanding. Appt is scheduled for 02/26/2025. Marshall Tran RN [facility]08-02-2025 Miscellaneous Notes* Telephone Encounter - Marshall Tran [...] request. Marshall Tran RN documented in this encounterSumma Health08-02-2025 Telephone encounter Note * Telephone Encounter - Cristian Adame MD - 02/10/2025 9:18 AM EDT Make sure has a follow up appt at some point. [facility]08-02-2025 Telephone encounter Note* Telephone Encounter - Marshall [...] Dr. Adame. Sending request. Marshall Tran RN [facility]2025 Telephone encounter Note* Telephone Encounter - Gilda Noonan APRN.CNP - 02/06/2025 8:08 AM EDT The following approved medication requests have been transmitted electronically. Requested Prescriptions Pending Prescriptions Disp Refills ondansetron orally disintegrating (ZOFRAN ODT) 4 mg disintegrating tablet 30 tablet 0 Sig: Take 1 tablet by mouth every 8 hours as needed for nausea/vomiting. Gilda Noonan APRN.CNP [facility]2025 Miscellaneous Notes* Telephone Encounter - Gilda Noonan [...] nausea/vomiting. Emelia Mcclendon RN documented in this encounterSumma Health2025 Telephone encounter Note * Telephone Encounter - [...] as needed for nausea/vomiting. Emelia Mcclendon RN [facility]07-28-2025 Telephone encounter Note* Telephone Encounter - Alexa Baca LPN - 02/05/2025 12:00 PM EDT Glucometer, test strips, and lancets sent to [facility]07-28-2025 Miscellaneous Notes* Telephone Encounter - Alexa Baca LPN - 02/05/2025 12:00 PM EDT Glucometer, test strips, and lancets sent to [facility]. * Result Encounter Note - Gilda Noonan APRN.CNP - 02/05/2025 11:44 AM EDT Glucometer, test strips, and lancets sent to [facility] * Telephone Encounter - Nupur Green MA - 02/05/2025 10:07 AM EDT Patient was made aware of the results. Patient verbalizes understanding. Asking for glucose monitor to be sent to [facility] Nupur Green Ma * Telephone Encounter - [...] Worsening anemia. Folate normal. documented in this encounterSumma Health07-28-2025 Progress note* Result Encounter Note - Gilda Noonan APRN.CNP - 02/05/2025 11:44 AM EDT Glucometer, test strips, and lancets sent to [facility]07-28-2025 Telephone encounter Note* Telephone Encounter - Nupur Green MA - 02/05/2025 10:07 AM EDT Patient was made aware of the results. Patient verbalizes understanding. Asking for glucose monitor to be sent to [facility] Nupur Green Ma [facility]07-28-2025 Telephone encounter Note* Telephone Encounter - Nupur Green MA - 02/05/2025 10:06 AM EDT ----- Message from Gilda Noonan sent at 02/01/2025 5:05 PM EDT ----- Iron saturation is decreased but your iron stores are high. Worsening anemia. Folate normal. [facility]07-24-2025 Progress note* Result Encounter Note - Gilda Noonan APRN.CNP - 02/01/2025 5:05 PM EDT Iron saturation is decreased but your iron stores are high. Worsening anemia. Folate normal. [facility]07-22-2025 Telephone encounter Note* Telephone Encounter - Gilda Noonan APRN.CNP - 01/30/2025 2:14 PM EDT The following approved medication requests have been transmitted electronically. Requested Prescriptions Pending Prescriptions Disp Refills RABEprazole (ACIPHEX) 20 mg tablet 90 tablet 3 Sig: Take 1 tablet by mouth once daily. Gilda Noonan APRN.CNP [facility]07-22-2025 Miscellaneous Notes* Telephone Encounter - Gilda Noonan [...] 30, 2025 1:56 PM documented in this encounterSumma Health07-22-2025 Telephone encounter Note * Telephone Encounter - [...] Green MA January 30, 2025 1:56 PM [facility]07-22-2025 Instructions* Patient Instructions* Gilda Noonan APRN.CNP - [...] tea or soda. - Try a sugar-free [place] breakfast drink (or similar) one to two times a day to boost your calorie and protein intake. - See Dr. Adame 02/26/25 as scheduled documented in this encounterSumma Health07-22-2025 NoteHNO ID: [id number] Author: GILDA NOONAN APRN.[facility] Service: ? Author Type: Nurse Practitioner [...] Yes Frequency: 2.0 times per week Comment: [place] per patient REVIEW OF SYSTEMS Constitutional: (+) [...] normal gait, no invol (more content not included)...[facility]07-22-2025 History of Present illness Narrative* Gilda Noonan APRN.[facility] - 01/30/2025 12:51 PM EDT This [...] Yes Frequency: 2.0 times per week Comment: [place] per patient REVIEW OF SYSTEMS Constitutional: (+) [...] reported. - Recommended increasing caloric intake with [place] breakfast drink (sugar- free) once or twice daily. Discussed treatment plan and patient voices understanding. Patient's questions answered appropriately. Medications and potential side effects were discussed and patient voices understanding. Return to the office as scheduled or as needed for worsening/no improvement. 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 PET scan ordered for staging. 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 PET scan ordered for staging. He did [...] daily Zofran as needed documented in this encounterSumma Health07-17-2025 Telephone encounter Note * Telephone Encounter - Cristian Adame MD - 01/25/2025 9:48 AM EDT Now diagnosed with squamous cell cancer of lung with likely mets. [facility]07-17-2025 Miscellaneous Notes* Telephone Encounter - Cristian Adame [...] days. Emelia Mcclendon RN documented in this encounterSumma Health07-17-2025 Telephone encounter Note * Telephone Encounter - [...] up to 5 days. Emelia Mcclendon RN [facility]07-14-2025 Telephone encounter Note* Telephone Encounter - Cecily [...] Soler RN January 22, 2025 8:27 AM [facility]07-14-2025 Miscellaneous Notes* Telephone Encounter - Cecily Soler [...] 22, 2025 8:27 AM documented in this encounterSumma Health07-10-2025 Evaluation note* Diagnosis Onset Date Resolution Status [...] right lower lobe chronic Sep 2024 11:45pm [facility] Work Phone: 1(268) 591-546107-08-2025 Telephone encounter Note* Telephone Encounter - Cristian Adame MD - 01/16/2025 8:57 AM EDT Oarrs done. Taking for possible metastatic malignancy. Can we check in records at [facility] and see if biopsy done in last week or so? [facility]07-08-2025 Miscellaneous Notes* Telephone Encounter - Cristian Adame MD - 01/16/2025 8:57 AM EDT Oarrs done. Taking for possible metastatic malignancy. Can we check in records at [facility] and see if biopsy done in last [...] 5 days. Patient has one tablet left. Anan Anton LPN January 16, 2025 8:12 AM documented in this encounterSumma Health07-08-2025 Telephone encounter Note * Telephone Encounter - [...] Anton LPN January 16, 2025 8:12 AM [facility]06-26-2025 Telephone encounter Note* Telephone Encounter - Gilda Noonan APRN.CNP - 01/04/2025 5:24 PM EDT done [facility]06-26-2025 Miscellaneous Notes* Telephone Encounter - Gilda Noonan APRN.CNP - 01/04/2025 5:24 PM EDT done * Telephone Encounter - Petty Stack RN - 01/04/2025 4:36 PM EDT Shanon from [facility] calls and is asking if provider can send over script for oxyir tablets instead of capsules? Please review and advise, Petty Stack RN documented in this encounterSumma Health06-26-2025 Telephone encounter Note * Telephone Encounter - Petty Stack RN - 01/04/2025 4:36 PM EDT Shanon from [facility] calls and is asking if provider can send over script for oxyir tablets instead of capsules? Please review and advise, Petty Stack RN [facility]06-26-2025 Radiology Diagnostic study note [facility] Imaging Services [address] [place], [place] [address] Biopsy/Inj or Needle Placement MR#: [id number] Acct: [id number] Name: HYUN ELIAS Rep #: [id number] : 1975 M 49 From: Edy Lynch MD PCP: Dr. Cristian Adame MD Status: REG C LI Study:Biopsy/Inj or Needle Placement Date of Exam: 01/04/25 Exam# [id number] Ordering Dr: Benson DO EXAM: CT-guided core [...] posterior nodule. Pathology results pending. Reading Location: [place] [address] CC: Dr. Denny Moffett DO; Dr. Cristian Adame MD ~ Senior Examiner: Signed [facility]06-26-2025 Radiology Diagnostic study note [facility] Imaging Services [address] [place], [place] [id number] Chest Insp/Exp 2 View MR#: [id number] Acct: [id number] Name: HYUN ELIAS Rep #: [id number] : 1975 M 49 From: Edy Lynch MD PCP: Dr. Cristian Adame MD Status: REG C SARATH Study:Chest Insp/Exp 2 View Date of Exam: 01/04/25 Exam# [id number] Ordering Dr: Theodore Lynch MD PROCEDURE: CHEST [...] stable, without evidence of cardiomegaly Reading Location: [place] [address] CC: Dr. Theodore Lynch MD; Dr. Cristian Adame MD ~ Senior Examiner: Signed [facility]06-26-2025 Radiology Diagnostic study note [facility] Imaging Services [address] [place], [place] [address] Chest Insp/Exp 2 View MR#: [id number] Acct: [id number] Name: HYUN ELIAS Rep #: [id number] : 1975 M 49 From: Byron Ordoñez MD PCP: Dr. Cristian Adame MD Status: REG C SARATH Study:Chest Insp/Exp 2 View Date of Exam: 01/04/25 Exam# [id number] Ordering Dr: Theodore Lynch MD PROCEDURE: CHEST INSP/EXP 2 VIEW 01/04/2025 REASON FOR EXAM: POST LUNG BIOPSY TECHNIQUE: CHEST INSP/EXP 2 VIEW COMPARISON: None FINDINGS: No evidence of pneumothorax on the immediate post right lung biopsy radiographs. Multiple bilateral pulmonary nodules. RAD/Chest Insp/Exp 2 View IMPRESSION: No evidence of pneumothorax. Reading Location: [id number] CC: Dr. Theodore Lynch MD; Dr. Cristian Adame MD ~ Senior Examiner: Signed [facility]06-26-2025 Telephone encounter Note* Telephone Encounter - Gilda [...] is available Authorizing Provider: GILDA NOONAN APRN.CNP [facility]06-26-2025 Miscellaneous Notes* Telephone Encounter - Gilda Noonan [...] 04, 2025 8:18 AM documented in this encounterSumma Health06-26-2025 Telephone encounter Note * Telephone Encounter - [...] Anton LPN January 04, 2025 8:18 AM [facility]06-18-2025 Telephone encounter Note* Telephone Encounter - Sepideh Pires LPN - 12/27/2024 11:31 AM EDT Pt notified pf Dr Adame's message. Pt verbalizes understanding. Pt had just wanted to give PCP a head up. Pt will wait and do procedure at [facility]. Sepideh Pires LPN [facility]06-18-2025 Miscellaneous Notes* Telephone Encounter - Sepideh Pires LPN - 12/27/2024 11:31 AM EDT Pt notified pf Dr Adame's message. Pt verbalizes understanding. Pt had just wanted to give PCP a head up. Pt will wait and do procedure at [facility]. Sepideh Pires LPN * Telephone Encounter - Cristian Adame MD - 12/27/2024 8:47 AM EDT Likely would need to be done at one of the hospitals and doubt it could get set up any sooner than next week. He would have to travel plus see a new beauty therapist. Would actually take much longer * Telephone Encounter - Monserrat Alcantara RN - 12/27/2024 8:15 AM EDT Pt phoned to let pcp know he was suppose to have his biopsy done today at [facility]. [facility] cancelled and re-scheduled for next Thurs- telling pt the part they need for the CT is stuck in [place]. Pt asking pcp is there any way he can have the biopsy done at the [facility] Specialty building? Please advise pt. [phone] documented in this encounterSumma Health06-18-2025 Telephone encounter Note * Telephone Encounter - Cristian Adame MD - 12/27/2024 8:47 AM EDT Likely would need to be done at one of the hospitals and doubt it could get set up any sooner than next week. He would have to travel plus see a new beauty therapist. Would actually take much longer [facility]06-18-2025 Telephone encounter Note* Telephone Encounter - Monserrat Alcantara RN - 12/27/2024 8:15 AM EDT Pt phoned to let pcp know he was suppose to have his biopsy done today at [facility]. [facility] cancelled and re-scheduled for next Thurs- telling pt the part they need for the CT is stuck in [place]. Pt asking pcp is there any way he can have the biopsy done at the [facility] Specialty building? Please advise pt. [phone] [facility]06-12-2025 Telephone encounter Note* Telephone Encounter - Nupur Green MA - 12/21/2024 4:57 PM EDT Trudy notified. Nupur Green MA December 21, 2024 4:57 PM [facility]06-12-2025 Miscellaneous Notes* Telephone Encounter - Nupur Green [...] relax patient before procedure? Pharmacy is [facility]. Please review and advise, Petty Stack RN documented in this encounterSumma Health06-12-2025 Telephone encounter Note * Telephone Encounter - Cristian Adame MD - 12/21/2024 12:55 PM EDT I can give him a dose of vistaril. Will need someone to drive him. [facility]06-12-2025 Telephone encounter Note* Telephone Encounter - Petty Stack RN - 12/21/2024 12:50 PM EDT Patient's significant other calls and states that patient is supposed to have have biopsy done 12/27. Patient was told to call PCP to see if something can be ordered to relax patient before procedure? Pharmacy is [facility]. Please review and advise, Petty Stack RN [facility]06-11-2025 Telephone encounter Note* Telephone Encounter - Cristian Adame MD - 12/20/2024 11:53 AM EDT Rx sent [facility]06-11-2025 Miscellaneous Notes* Telephone Encounter - Cristian Adame [...] Rx's have been sent to the pharmacy. [phone] * Telephone Encounter - Petty Stack RN [...] 20, 2024 8:27 AM documented in this encounterSumma Health06-11-2025 Telephone encounter Note * Telephone Encounter - Monserrat Alcantara RN - 12/20/2024 9:33 AM EDT Trudy- significant other- phoned asking pcp to also refill zofran. Reports pt only has 1 pill leftof each of the pended medications. Trudy asking pcp office to phone pt to let him know when Rx's have been sent to the pharmacy. [phone] [facility]06-11-2025 Telephone encounter Note* Telephone Encounter - Petty [...] Stack RN December 20, 2024 8:27 AM [facility]06-10-2025 Telephone encounter Note* Telephone Encounter - Nupur Green MA - 12/19/2024 11:38 AM EDT Mychart message sent [facility]06-10-2025 Miscellaneous Notes* Telephone Encounter - Nupur Green [...] labs in one month. documented in this encounterSumma Health06-10-2025 Telephone encounter Note * Telephone Encounter - Cristian Adame MD - 12/19/2024 8:40 AM EDT Urine culture are still pending. Anemic-folate is low. Iron appears low but is likely more (due to low tibc) related to the nodules he is getting biopsied-an anemia of chronic disease, Do ifobt Add iron to be on safe side and folate Recheck labs in one month. [facility]06-09-2025 Telephone encounter Note* Telephone Encounter - Raiza Rodrigez LPN - 12/18/2024 12:33 PM EDT Patient notified. Has urine test to bring back to lab. [facility]06-09-2025 Miscellaneous Notes* Telephone Encounter - Raiza Rodrigez [...] anemic labs and sodium. documented in this encounterSumma Health06-09-2025 Telephone encounter Note * Telephone Encounter - Cristian Adame MD - 12/18/2024 12:07 PM EDT Still needs to come into labs and get their urine test. UA and C and s He is slightly anemic. Sodium is low. Recheck anemic labs and sodium. [facility]06-06-2025 NoteHNO ID: [id number] Author: CRISTIAN ADAME MD Service: ? Author [...] Yes Frequency: 2.0 times per week Comment: [place] per patient Reviewed current medications, allergies, past [...] lb) 11/22/2024 74.8 kg (more content not included)...[facility] 12-15-2024 History of Present illness Narrative* [...] Yes Frequency: 2.0 times per week Comment: [place] per patient Reviewed current medications, allergies, past [...] likely secondary to opioid use. - Recommended [id number] stool softeners such as Miralax or Colace. [...] to patient) Cristian Adame MD Recording using [employer] software for draft documentation of the visit was discussed with the patient/authorized business office representative; all questions welcomed and answered. Patient/authorized business office representative agreed to proceed documented in this encounterSumma Health06-06-2025 History of Present illness Narrative* Javier Romero [...] PATIENT PRESENTS WITH AN IMPLANTABLE OR ATTACHED VEHICLE DELIVERY WORKER: No RADIOLOGY DEPARTMENT: General X-ray: Exam(s) Completed: Abdomen X-Ray: Abdomen PERIPHERAL IV DATA: Not applicable SIGNED BY: RT Jerri(Sal[place]ón) December 15, 2024 3:14 PM documented in this encounterSumma Health06-06-2025 NoteHNO ID: [id number] Author: JAVIER ROMERO RT(R) Service: Radiology Author [...] PATIENT PRESENTS WITH AN IMPLANTABLE OR ATTACHED VEHICLE DELIVERY WORKER: No RADIOLOGY DEPARTMENT: General X-ray: Exam(s) Completed: Abdomen X-Ray: Abdomen PERIPHERAL IV DATA: Not applicable SIGNED BY: RT Jerri(R) December 15, 2024 3:14 [facility]06-06-2025 Instructions* Patient Instructions* Cristian Adame MD [...] need your next refill. documented in this encounterSumma Health05-20-2025 Telephone encounter Note * Telephone Encounter - Petty Stack RN - 11/28/2024 8:47 AM EDT Patient's significant other calls and is asking if provider can send in prescription for zofran. Bottle reads take 4 mg q8h prn for nausea. Patient was prescribed this when he was in ER. .Please review and advise, Petty Stack RN [facility]05-20-2025 Miscellaneous Notes* Telephone Encounter - Petty Stack RN - 11/28/2024 8:47 AM EDT Patient's significant other calls and is asking if provider can send in prescription for zofran. Bottle reads take 4 mg q8h prn for nausea. Patient was prescribed this when he was in ER. .Please review and advise, Petty Stack RN documented in this encounterSumma Health05-15-2025 Telephone encounter Note * Telephone Encounter - Monserrat Alacntara RN - 11/23/2024 11:03 AM EDT GirlienTrudy julian, phoned for message with patient present. Given provider's message below. Rhondastates patient thought his blood sugars were good and just stopped taking the metformin. States patient will start taking metformin again. Patient states he still has metformin and will let pcp know when he runs out. [facility]05-15-2025 Miscellaneous Notes* Telephone Encounter - Monserrat Alcantara [...] is not taking it? documented in this encounterSumma [facility]05-15-2025 Telephone encounter Note * Telephone Encounter - Raiza Rodrigez LPN - 11/23/2024 10:57 AM EDT Left message to call and speak with nurse. [facility]05-15-2025 Telephone encounter Note* Telephone Encounter - Cristian Adame MD - 11/23/2024 9:57 AM EDT Sugars are up. He should still be on metformin. Is there a reason he is not taking it? [facility]05-14-2025 NoteHNO ID: [id number] Author: CRISTIAN ADAME MD Service: ? Author Type: Physician Type: Progress Notes Filed: 11/22/2024 11:31 Note Text: Patient presents with: ER F/U HPI: Patient presents today for office visit for ER FOLLOW UP: Reason for visit: Abdominal pain, left sided Which facility: [facility] Date of visit: 11/12/24 Diagnosis: Lymphadenopathy Testing [...] marielena metastatic disease. The ER doc in [facility] referred to [facility]. Has been seen by [facility] on 11/14. They are going to [...] Yes Frequency: 2.0 times per week Comment: [place] per patient Reviewed current medications, allergies, past [...] will be worsened because (more content not included)...[facility]05-14-2025 History of Present illness Narrative* Cristian Adame MD - 11/22/2024 10:44 AM EDT Patient presents with: ER F/U HPI: Patient presents today for office visit for ER FOLLOW UP: Reason for visit: Abdominal pain, left sided Which facility: [facility] Date of visit: 11/12/24 Diagnosis: Lymphadenopathy Testing [...] marielena metastatic disease. The ER doc in [facility] referred to [facility]. Has been seen by [facility] on 11/14. They are going to [...] Yes Frequency: 2.0 times per week Comment: [place] per patient Reviewed current medications, allergies, past [...] above. Cristian Adame MD documented in this encounterSumma Health05-06-2025 Evaluation note* Diagnosis Onset Date Resolution Status Admit Date Abnormal screening computed tomography (CT) of chest acute November 10:48am Multiple lung nodules on CT acute November 14, 2024 10:48am [facility] Work Phone: 1(661) 614-767005-06-2025 Evaluation note* Diagnosis Onset Date Resolution Status Admit Date Abnormal screening computed tomography (CT) of chest acute November 10:48am Multiple lung nodules on CT acute November 14, 2024 10:48am 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 acute Jan 11:16am Nicotine abuse chronic January 18, 2025 11:16am [facility] Work Phone: 1(289) 803-612805-06-2025 Evaluation note* Diagnosis Onset Date Resolution Status [...] lower lobe acute Aug ust 2024 1:40pm [facility] Work Phone: 1(369) 270-354505-06-2025 Evaluation note* Diagnosis Onset Date Resolution Status [...] lower lobe acute Aug ust 2024 4:10pm [facility] Work Phone: 1(746) 719-978105-06-2025 Evaluation note* Diagnosis Onset Date Resolution Status [...] acute February 15, 2025 1:[address]pm [facility] Work Phone: 1(143) 250-258805-06-2025 Evaluation note* Diagnosis Onset Date Resolution Status [...] Nicotine abuse chronic February 10:21am [facility] Work Phone: 1(699) 302-964905-06-2025 Evaluation note* Diagnosis Onset Date Resolution Status [...] lower lobe chronic Aug ust 2024 7:49am [facility] [employer] Work Phone: 1(466) 756-366505-01-2025 Telephone encounter Note* Telephone Encounter - Marshall Tran RN - 11/09/2024 12:27 PM EDT See triage. Advised ER now. Patient agreeable to call squad and be seen at [facility]. Marshall Tran RN [facility]05-01-2025 Miscellaneous Notes* Telephone Encounter - Marshlal Tran RN - 11/09/2024 12:27 PM EDT See triage. Advised ER now. Patient agreeable to call squad and be seen at [facility]. Marshall Tran RN * Telephone Encounter - [...] his symptoms. Girlfriend agreeable. documented in this encounterSumma Health05-01-2025 Telephone encounter Note * Telephone Encounter - [...] fever, difficulty breathing, cough Protocols used: Chest Fiwu-[id number]-PO [facility]05-01-2025 Miscellaneous Notes* Telephone Encounter - Marshall Tran [...] fever, difficulty breathing, cough Protocols used: Chest Xrqs-GDYMR-RS documented in this encounterSumma Health05-01-2025 Telephone encounter Note * Telephone Encounter - [...] we can triage his symptoms. Girlfriend agreeable. [facility]03-26-2025 Telephone encounter Note* Telephone Encounter - Anna [...] Anton LPN October 04, 2024 8:15 AM [facility]03-26-2025 Miscellaneous Notes* Telephone Encounter - Anna Anton [...] 04, 2024 8:15 AM documented in this encounterSumma Health08-07-2024 Telephone encounter Note * Telephone Encounter - Betty Poe LPN - 02/16/2024 9:05 AM EDT Spoke with pt and information listed below given. Pt verbalizes understanding. 3 month FU apt booked and pt requested an apt reminder be mailed to him. Done. Betty Poe LPN [facility]08-07-2024 Miscellaneous Notes* Telephone Encounter - Betty Poe [...] hold on adding meds. documented in this encounterSumma Health08-07-2024 Telephone encounter Note * Telephone Encounter - [...] the road and hold on adding meds. [facility]08-05-2024 History of Present illness Narrative* Cristian Adame [...] Yes Frequency: 2.0 times per week Comment: [place] per patient Reviewed current medications, allergies, past [...] six months or prn. documented in this encounterSumma Health07-30-2024 Telephone encounter Note * Telephone Encounter - [...] why he is prescribed these. Scheduled appt. [facility]07-30-2024 Miscellaneous Notes* Telephone Encounter - Monserrat Alcantara [...] prescribed these. Scheduled appt. documented in this encounterSumma Health05-20-2024 Telephone encounter Note * Telephone Encounter - Raiza Rodrigez LPN - 11/29/2023 9:17 AM EDT Explained to and she verbalizes understanding. [facility]05-20-2024 Miscellaneous Notes* Telephone Encounter - Raiza Rodrigez LPN - 11/29/2023 9:17 AM EDT Explained to and she verbalizes understanding. * Telephone Encounter - Gilda Noonan APRN.SHEET METAL INSULATOR - 11/29/2023 9:02 AM EDT Please have [...] take. Sagrario Caldwell LPN documented in this encounterSumma Health05-20-2024 Telephone encounter Note * Telephone Encounter - Gilda Noonan APRN.SHEET METAL INSULATOR - 11/29/2023 9:02 AM EDT Please have [...] was ordered and is at his pharmacy. [facility]05-20-2024 Telephone encounter Note* Telephone Encounter - Sagrario Caldwell LPN - 11/29/2023 8:14 AM EDT Last OV: 11/01/23 - prescribed Crestor 5 mg daily. Pt's SO, Trudy calls to report that pt has been having MACK's ever since starting Crestor. Asking ifthere is a different medication pt can take. Sagrario Caldwell LPN [facility]04-24-2024 Telephone encounter Note* Telephone Encounter - Yolande Hines APRN.CNP - 11/03/2023 9:57 AM EDT Noted. Orders signed. Yolande Hines APRN.PRAFUL [facility] Work Phone: 1(279) 459-460404-24-2024 Miscellaneous Notes* Telephone Encounter - Yolande Hines APRN.CNP - 11/03/2023 9:57 AM EDT Noted. Orders signed. Yolande Hines APRN.WET MACHINE TENDER * Telephone Encounter - Cecily Soler RN [...] wecan check on labs. documented in this encounterSumma Health04-23-2024 Telephone encounter Note * Telephone Encounter - [...] for provider to sign. Cecily Soler RN [facility]04-22-2024 Telephone encounter Note* Telephone Encounter - Gilda [...] months so that wecan check on labs. [facility]04-22-2024 Instructions* Patient Instructions* Gidla Noonan APRN.CNS - 11/01/2023 10:52 AM EDT 1) Get labs today 2) Rabeprazole reordered 3) Azithromycin 2 tab today then 1 daily until gone for pharyngitis 4) Triamcinolone ointment 2 x day to chest 5) Follow up yearly documented in this encounterSumma Health04-22-2024 History of Present illness Narrative* Gilda Noonan [...] Yes Frequency: 2.0 times per week Comment: [place] per patient REVIEW OF SYSTEMS GENERAL: No [...] agrees with the plan. documented in this encounterSumma Health04-17-2024 Miscellaneous Notes* Telephone Encounter - Kenna Conley - 10/27/2023 3:22 PM EDT Opened in error. Kenna Robertson documented in this encounterSumma Health03-30-2023 Miscellaneous Notes* Telephone Encounter - Arline Jina [...] and advise. Arline Jina documented in this encounterSumma Health06-21-2022 History of Present illness Narrative* Cristian Adame [...] Yes Frequency: 2.0 times per week Comment: [place] per patient Reviewed current medications, allergies, past [...] Level: 4 - Moderate documented in this encounterSumma Health10-28-2011 History of Past illness Narrative* Problem Noted Date Resolved Date Benign localized hyperplasia of prostate without urinary obstruction and other lower urinary tract symptoms (LUTS) 05/08/2011 05/08/2011 Depressive disorder, not elsewhere classified 05/27/2018 documented as of this encounter (statuses as of 12/30/2021) [facility]10-28-2011 History of Past illness Narrative* Problem Noted Date Resolved Date Benign localized hyperplasia of prostate without urinary obstruction and other lower urinary tract symptoms (LUTS) 05/08/2011 05/08/2011 Depressive disorder, not elsewhere classified 05/27/2018 documented as of this encounter (statuses as of 10/08/2022) [facility]10-28-2011 History of Past illness Narrative* Problem Noted Date Diagnosed Date Resolved Date Benign localized hyperplasia of prostate without urinary obstruction and other lower urinary tract symptoms (LUTS) 05/08/2011 05/08/2011 Depressive disorder, not elsewhere classified 05/09/2005/27/2018 documented as of this encounter (statuses as of 10/28/2023) [facility] HealthConsult note Author Ana Viramontes [facility] Note Date/Time February 20, 2025 11 :36am [facility] Medical Records Department [address] [place] [address] Anesthesia Postop Eval I 02/20/25 1135 MR#: [id number] Acct: [id number] Name: HYUN ELIAS Rep #:[id number] : 1975 49 From: Ana grace WAXER TENDER PCP: Dr. Cristian Adame MD Status:REG S DC Y Race: C Location: [place] [address] Anesthesia: Postop Eval I Current Vital Signs [...] YAN Cosigner Signature: Date CC: ~ Signed [facility] Work Phone: Discharge summary Author Hernan Vincent [facility] Note Date/Time February 20, 2025 11 :32am [facility] Medical Records Department [address] [facility] [place] [address] Instructions for Home/Discharge Instructions 02/20/25 1131 MR#: [id number] Acct: [id number] Name: HYUN ELIAS Rep #:[id number] : 1975 49 From: Hernan guerrero MD [...] With: Hernan Vincent MD When: as needed [phone] Test Results: Test results from this visit will be discussed in further detail at your follow- up appointment, if applicable. Discharge Plan Admission Attending Provider: Hernan Vincent Primary Care Provider: Cristian Adame Instructions Print Language: Nepalese Discharge Orders/Prescriptions Prescriptions: No Action folic acid [...] CC: Dr. Cristian Adame MD ~ Signed [facility] Work Phone: Evaluation note* Diagnosis Paresthesia- Primary Disturbance of skin sensation Screening for colon cancer Special screening for malignant neoplasms, colon documented in this encounter [facility] note* Diagnosis Screening for colon cancer- Primary Special screening for malignant neoplasms, colon Hiatal hernia Diaphragmatic hernia without mention of obstruction or gangrene Screening for diabetes mellitus Screening for lipid disorders Chronic pain of both knees Tobacco abuse Tobacco use disorder Acute pharyngitis due to other specified organisms Allergic contact dermatitis due to other agents documented in this encounter [facility]* Diagnosis Controlled type 2 diabetes mellitus without complication, without long-term current use of insulin (HCC)- Primary Hyperlipidemia, mixed Mixed hyperlipidemia [facility] in this [facility]* Diagnosis Dyslipidemia- Primary Other and unspecified hyperlipidemia [facility] Diagnosis Controlled type 2 diabetes mellitus without complication, without long-term current use of insulin (HCC)- Primary Hyperlipidemia, mixed Mixed hyperlipidemia Tobacco abuse Tobacco use disorder Screening for prostate cancer Special screening for malignant neoplasm of prostate Encounter for screening examination for other mental health and behavioral disorders [facility]* Diagnosis Controlled type 2 diabetes mellitus without complication, without long-term current use of insulin (HCC) [facility]* Diagnosis Lung nodules- Primary Other nonspecific abnormal finding of lung field Controlled type 2 diabetes mellitus without complication, without long-term current use of insulin (HCC) Hyperlipidemia, mixed Mixed hyperlipidemia Tobacco abuse Tobacco use disorder Lymphadenopathy, abdominal Enlargement of lymph nodes Hilar lymphadenopathy Enlargement of lymph nodes documented in this encounter [facility] note* Diagnosis Hilar lymphadenopathy- Primary Enlargement of lymph nodes Medication monitoring encounter Encounter for therapeutic drug monitoring Lymphadenopathy, abdominal Enlargement of lymph nodes Lung nodules Other nonspecific abnormal finding of lung field Chest wall pain Painful respiration Tobacco abuse Tobacco use disorder Gross hematuria Acute constipation Unspecified constipation Night sweats Generalized hyperhidrosis Acute constipation Unspecified constipation documented in this encounter [facility] note* Diagnosis Acute constipation Unspecified constipation [facility]* Diagnosis Anemia, unspecified type- Primary [facility]* Diagnosis Anemia, unspecified type- Primary Folic acid deficiency Other B-complex deficiencies [facility]* Diagnosis Lymphadenopathy, abdominal- Primary Enlargement of lymph nodes Chest wall pain Painful respiration Hilar lymphadenopathy Enlargement of lymph nodes Lung nodule Solitary pulmonary nodule [facility]* Diagnosis Anxiety- Primary Anxiety state, unspecified [facility]* Diagnosis Lymphadenopathy, abdominal Enlargement of lymph nodes Chest wall pain Painful respiration Hilar lymphadenopathy Enlargement of lymph nodes Lung nodule Solitary pulmonary nodule [facility]* Diagnosis Generalized abdominal pain- Primary Abdominal pain, generalized [facility]* Diagnosis Generalized abdominal pain Abdominal pain, generalized [facility]* Diagnosis Lymphadenopathy, abdominal Enlargement of lymph nodes Chest wall pain Painful respiration Hilar lymphadenopathy Enlargement of lymph nodes Lung nodule Solitary pulmonary nodule [facility]* Diagnosis 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, unspecified laterality (HCC)- Primary Generalized abdominal pain Abdominal pain, generalized [facility]* Diagnosis Dysuria- Primary Controlled type 2 diabetes mellitus without complication, with long-term current use of insulin (HCC) Acute constipation Unspecified constipation Malignant neoplasm of lower lobe of lung, unspecified laterality (HCC) documented in this encounter [facility]* Diagnosis Controlled type 2 diabetes mellitus without complication, without long-term current use of insulin (HCC)- Primary documented in this encounter [facility]* Diagnosis Generalized abdominal pain Abdominal pain, generalized 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, unspecified laterality (HCC) documented in this encounter [facility] note* Diagnosis Lymphadenopathy, abdominal Enlargement of lymph nodes Chest wall pain Painful respiration Hilar lymphadenopathy Enlargement of lymph nodes Lung nodule Solitary pulmonary nodule documented in this encounter [facility]* Diagnosis Squamous cell carcinoma of lung, [...] unspecified laterality (HCC) documented in this encounter [facility]* Diagnosis Acute pharyngitis, unspecified etiology- Primary Abnormal lung sounds Abnormal chest sounds 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, unspecified laterality (HCC) [facility] Dis[facility] instructionsAmbulatory Orders* Fast Pass: Oncology Referral [facility] Location: None Selected [facility] Work Phone: Hospital Discharge instructionsAmbulatory Orders* Prior Authorization Referral - ONC/HEM Location: None Selected * General Surgery Location: None Selected [facility] Work Phone: Hospital Discharge instructionsAmbulatory Orders* Nutrition Referral - [facility] Location: None Selected [facility] Work Phone: Reason for referral (narrative)No reason for referral information availableWSelect [facility] Work Phone: Reason for visit Narrative* Diagnostic Procedure Only (Urgent) - Closed Specialty Diagnoses / Procedures Referred By Contac t Referred To Contact XR IMAGING Diagnoses Acute constipation Procedures XR ABDOMEN 1V SUPINE RADIOLOGIC EXAM ABDOMEN 1 VIEW Cristian Adame MD [address] [place] [address] Phone: tel: fax: [place] [address] Referral ID Status Reason Start Date Expiration Date V isits Requested Visits Authorized [id number] Closed Auto-Generate d Referral 12/15/2024 01/14/2026 1 1 [facility] Reason for Referral Specialty Diagnoses / Procedures Referred By Levi low Referred To Contact General Surgery Diagnoses Screening for colon cancer Procedures CONSULT TO GENERAL SURGERY OFFICE/OUTPATIENT [facility] MDM 60-74 MINUTES Cristian Adame MD [address] [place] [address] Referral ID Status Reason Start Date Expiration Date Visits Requested Visits Authorized [id number] Authorized PCP Requested Referral 12/30/2021 12/30/2022 1 1 Specialty Diagnoses / Procedures Referred By Levi low Referred To [facility] Diagnoses Paresthesia Procedures EMG(NEURO/NI) NERVE CONDUCTION STUDIES 9-10 STUDIES Cristian Adame MD [address] [place] [address] Neurological [facility] [address] [place] [address] Referral ID Status Reason Start Date Expiration Date Visits Requested Visits Authorized [id number] Pending Review Auto-Generat ed Referral 12/30/2021 12/30/2022 1 1 Advance Directives Documents on File Type Date Recorded Patient Porter 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 No November 12, 2024 8:06am Advance Directive Response Recorded Date/ Time Do you have a Healthcare Power of Specimen Processor? No February 15, 2025 3:09pm Do you have a Healthcare Power of Specimen Processor? No November 12, 2024 8:06am Advance Directive Response Recorded Date/ Time Advance Directives No March 05, 2025 1:32pm Do you have a Healthcare Power of Specimen Processor? No February 15, 2025 3:09pm Do you have a Healthcare Power of Specimen Processor? No November 12, 2024 8:06am Living Will No March 01 10:18am Do you have a Healthcare Power of Specimen Processor? No March 01, 2025 10:18am Advance Directive Response Recorded Date/ Time Do you have a Healthcare Power of Specimen Processor? No February 15, 2025 3:09pm Do you have a Healthcare Power of Specimen Processor? No November 12, 2024 8:06am Living Will No March 08 9:22am Do you have a Healthcare Power of Specimen Processor? No March 08, 2025 9:22am Advance Directives No March 08, 2025 9:22am Advance Directive Response Recorded Date/ Time Do you have a Healthcare Power of Specimen Processor? No February 15, 2025 3:09pm Living Will No March 15, 8:31am Do you have a Healthcare Power of Specimen Processor? No March 15, 2025 8:31am Advance Directives No March 8:31am Do you have a Healthcare Power of Specimen Processor? No March 21, 2025 11:01pm Chief Complaint [...] or prosecute any alcohol or drug abuse patient.[facility] HealthIn the event this information is protected by the Federal Confidentiality of Alcohol and Drug Abuse Patient Records regulations: The Federal rules restrict any use of the information to criminally investigate or prosecute any alcohol or drug abuse patient.[facility] HealthIn the event this information is protected by the Federal Confidentiality of Alcohol and Drug Abuse Patient Records regulations: The Federal rules restrict any use of the information to criminally investigate or prosecute any alcohol or drug abuse patient.[facility] HealthIn the event this information is protected by the Federal Confidentiality of Alcohol and Drug Abuse Patient Records regulations: The Federal rules restrict any use of the information to criminally investigate or prosecute any alcohol or drug abuse patient.[facility] HealthIn the event this information is protected by the Federal Confidentiality of Alcohol and Drug Abuse Patient Records regulations: The Federal rules restrict any use of the information to criminally investigate or prosecute any alcohol or drug abuse patient.[facility] HealthIn the event this information is protected by the Federal Confidentiality of Alcohol and Drug Abuse Patient Records regulations: The Federal rules restrict any use of the information to criminally investigate or prosecute any alcohol or drug abuse patient.[facility] HealthIn the event this information is protected by the Federal Confidentiality of Alcohol and Drug Abuse Patient Records regulations: The Federal rules restrict any use of the information to criminally investigate or prosecute any alcohol or drug abuse patient.[facility] HealthIn the event this information is protected by the Federal Confidentiality of Alcohol and Drug Abuse Patient Records regulations: The Federal rules restrict any use of the information to criminally investigate or prosecute any alcohol or drug abuse patient.[facility] HealthIn the event this information is protected by the Federal Confidentiality of Alcohol and Drug Abuse Patient Records regulations: The Federal rules restrict any use of the information to criminally investigate or prosecute any alcohol or drug abuse patient.[facility] HealthIn the event this information is protected by the Federal Confidentiality of Alcohol and Drug Abuse Patient Records regulations: The Federal rules restrict any use of the information to criminally investigate or prosecute any alcohol or drug abuse patient.[facility] HealthIn the event this information is protected by the Federal Confidentiality of Alcohol and Drug Abuse Patient Records regulations: The Federal rules restrict any use of the information to criminally investigate or prosecute any alcohol or drug abuse patient.[facility] HealthIn the event this information is protected by the Federal Confidentiality of Alcohol and Drug Abuse Patient Records regulations: The Federal rules restrict any use of the information to criminally investigate or prosecute any alcohol or drug abuse patient.[facility] HealthIn the event this information is protected by the Federal Confidentiality of Alcohol and Drug Abuse Patient Records regulations: The Federal rules restrict any use of the information to criminally investigate or prosecute any alcohol or drug abuse patient.[facility]ma HealthIn the event this information is protected by the Federal Confidentiality of Alcohol and Drug Abuse Patient Records regulations: The Federal rules restrict any use of the information to criminally investigate or prosecute any alcohol or drug abuse patient.[facility] HealthIn the event this information is protected by the Federal Confidentiality of Alcohol and Drug Abuse Patient Records regulations: The Federal rules restrict any use of the information to criminally investigate or prosecute any alcohol or drug abuse patient.[facility] HealthIn the event this information is protected by the Federal Confidentiality of Alcohol and Drug Abuse Patient Records regulations: The Federal rules restrict any use of the information to criminally investigate or prosecute any alcohol or drug abuse patient.[facility] HealthIn the event this information is protected by the Federal Confidentiality of Alcohol and Drug Abuse Patient Records regulations: The Federal rules restrict any use of the information to criminally investigate or prosecute any alcohol or drug abuse patient.[facility] HealthIn the event this information is protected by the Federal Confidentiality of Alcohol and Drug Abuse Patient Records regulations: The Federal rules restrict any use of the information to criminally investigate or prosecute any alcohol or drug abuse patient.[facility] HealthIn the event this information is protected by the Federal Confidentiality of Alcohol and Drug Abuse Patient Records regulations: The Federal rules restrict any use of the information to criminally investigate or prosecute any alcohol or drug abuse patient.[facility] HealthIn the event this information is protected by the Federal Confidentiality of Alcohol and Drug Abuse Patient Records regulations: The Federal rules restrict any use of the information to criminally investigate or prosecute any alcohol or drug abuse patient.[facility] HealthIn the event this information is protected by the Federal Confidentiality of Alcohol and Drug Abuse Patient Records regulations: The Federal rules restrict any use of the information to criminally investigate or prosecute any alcohol or drug abuse patient.[facility] HealthIn the event this information is protected by the Federal Confidentiality of Alcohol and Drug Abuse Patient Records regulations: The Federal rules restrict any use of the information to criminally investigate or prosecute any alcohol or drug abuse patient.[facility] HealthIn the event this information is protected by the Federal Confidentiality of Alcohol and Drug Abuse Patient Records regulations: The Federal rules restrict any use of the information to criminally investigate or prosecute any alcohol or drug abuse patient.[facility] HealthIn the event this information is protected by the Federal Confidentiality of Alcohol and Drug Abuse Patient Records regulations: The Federal rules restrict any use of the information to criminally investigate or prosecute any alcohol or drug abuse patient.[facility] HealthIn the event this information is protected by the Federal Confidentiality of Alcohol and Drug Abuse Patient Records regulations: The Federal rules restrict any use of the information to criminally investigate or prosecute any alcohol or drug abuse patient.[facility] HealthIn the event this information is protected by the Federal Confidentiality of Alcohol and Drug Abuse Patient Records regulations: The Federal rules restrict any use of the information to criminally investigate or prosecute any alcohol or drug abuse patient.[facility] HealthIn the event this information is protected by the Federal Confidentiality of Alcohol and Drug Abuse Patient Records regulations: The Federal rules restrict any use of the information to criminally investigate or prosecute any alcohol or drug abuse patient.[facility] HealthIn the event this information is protected by the Federal Confidentiality of Alcohol and Drug Abuse Patient Records regulations: The Federal rules restrict any use of the information to criminally investigate or prosecute any alcohol or drug abuse patient.[facility] HealthIn the event this information is protected by the Federal Confidentiality of Alcohol and Drug Abuse Patient Records regulations: The Federal rules restrict any use of the information to criminally investigate or prosecute any alcohol or drug abuse patient.[facility] HealthIn the event this information is protected by the Federal Confidentiality of Alcohol and Drug Abuse Patient Records regulations: The Federal rules restrict any use of the information to criminally investigate or prosecute any alcohol or drug abuse patient.[facility] HealthIn the event this information is protected by the Federal Confidentiality of Alcohol and Drug Abuse Patient Records regulations: The Federal rules restrict any use of the information to criminally investigate or prosecute any alcohol or drug abuse patient.[facility] HealthIn the event this information is protected by the Federal Confidentiality of Alcohol and Drug Abuse Patient Records regulations: The Federal rules restrict any use of the information to criminally investigate or prosecute any alcohol or drug abuse patient.[facility] HealthIn the event this information is protected by the Federal Confidentiality of Alcohol and Drug Abuse Patient Records regulations: The Federal rules restrict any use of the information to criminally investigate or prosecute any alcohol or drug abuse patient.[facility] HealthIn the event this information is protected by the Federal Confidentiality of Alcohol and Drug Abuse Patient Records regulations: The Federal rules restrict any use of the information to criminally investigate or prosecute any alcohol or drug abuse patient.[facility] HealthIn the event this information is protected by the Federal Confidentiality of Alcohol and Drug Abuse Patient Records regulations: The Federal rules restrict any use of the information to criminally investigate or prosecute any alcohol or drug abuse patient.[facility] HealthIn the event this information is protected by the Federal Confidentiality of Alcohol and Drug Abuse Patient Records regulations: The Federal rules restrict any use of the information to criminally investigate or prosecute any alcohol or drug abuse patient.[facility] HealthIn the event this information is protected by the Federal Confidentiality of Alcohol and Drug Abuse Patient Records regulations: The Federal rules restrict any use of the information to criminally investigate or prosecute any alcohol or drug abuse patient.[facility] HealthIn the event this information is protected by the Federal Confidentiality of Alcohol and Drug Abuse Patient Records regulations: The Federal rules restrict any use of the information to criminally investigate or prosecute any alcohol or drug abuse patient.[facility] Reason for Visit (unrecogniz ed section and [...] Care Teams (unrecognized sec tion and content) Ground Water Pump Installer Relationship Specialty Start Date End Date Cristian Adame MD [address] [place] [address] PCP - General Family Practice 10/08/14 Ground Water Pump Installer Relationship Specialty Start Date End Date Cristian Adame MD [address] [place], [place] [address] PCP - General Family Medicine 10/08/14 Ground Water Pump Installer Relationship Specialty Start Date End Date Cristian Adame MD [address] [place], [place] [address] PCP - General Family Medicine 10/08/14 Ground Water Pump Installer Relationship Specialty Start Date End Date Cristian Adame MD [address] [place] [address] PCP - General Family Medicine 10/08/14 Ground Water Pump Installer Relationship Specialty Start Date End Date Cristian Adame MD [address] [place] [address] PCP - General Family Medicine 10/08/14 Ground Water Pump Installer Relationship Specialty Start Date End Date Cristian Adame MD [address] [place] [address] PCP - General Family Medicine 10/08/14 Ground Water Pump Installer Relationship Specialty Start Date End Date Cristian Adame MD [address] [place] [address] PCP - General Family Medicine 10/08/14 Ground Water Pump Installer Relationship Specialty Start Date End Date Cristian Adame MD [address] [place], [place] [address] PCP - General Family Medicine 10/08/14 Ground Water Pump Installer Relationship Specialty Start Date End Date Cristian Adame MD [address] [place], [place] [address] PCP - General Family Medicine 10/08/14 Ground Water Pump Installer Relationship Specialty Start Date End Date Cristian Adame MD [address] [facility], [place] [address] PCP - General Family Medicine 10/08/14 Yolande Hines, CHILDREN'S AIDE.WET MACHINE TENDER [address] [place] [address] [facility] 06/19/24 Gilda Noonan CHILDREN'S AIDE.WET MACHINE TENDER [address] [place] [address] [facility] 06/19/24 Ground Water Pump Installer Relationship Specialty Start Date End Date Cristian Adame MD [address] [place] [address] PCP - General Family Medicine 10/08/14 Yolande Hines, CHILDREN'S AIDE.WET MACHINE TENDER [address] [place] [address] [facility] 06/19/24 Gilda Noonan, CHILDREN'S AIDE.WET MACHINE TENDER [address] [place] [address] [facility] 06/19/24 Team Status: Active Member Role [...] November 14, 2024 End: November 14, 2024 Ground Water Pump Installer Relationship Specialty Start Date End Date Cristian Adame MD [address] [place] [address] PCP - General Family Medicine 10/08/14 Yolande Hines APRN.WET MACHINE TENDER [address] [place] [address] Yeast Cake Cutter Family Medicine 06/19/24 Gilda Noonan CHILDREN'S AIDE.WET MACHINE TENDER [address] [place] [address] [facility] Medicine 06/19/24 Ground Water Pump Installer Relationship Specialty Start Date End Date Cristian Adame MD [address] [place] [address] PCP - General Family Medicine 10/08/14 Yolande Hines CHILDREN'S AIDE.WET MACHINE TENDER [address] [place] [address] [facility] Medicine 06/19/24 Gilda Noonan CHILDREN'S AIDE.WET MACHINE TENDER [address] [place] [address] [facility] 06/19/24 Ground Water Pump Installer Relationship Specialty Start Date End Date Cristian Adame MD [address] [facility] [place] [address] PCP - General Family Medicine 10/08/14 Yolande Hines CHILDREN'S AIDE.WET MACHINE TENDER [address] [facility] [place] [address] [facility]/24 Gilda Noonan CHILDREN'S AIDE.WET MACHINE TENDER [address] [facility] [place] [address] [facility] 06/19/24 Ground Water Pump Installer Relationship Specialty Start Date End Date Cristian Adame MD [address] [facility] [address] PCP - General Family Medicine 10/08/14 Yolande Hines CHILDREN'S AIDE.WET MACHINE TENDER [address] [facility] [place] [address] Critical [facility] 06/19/24 Gilda Noonan CHILDREN'S AIDE.WET MACHINE TENDER [address] [facility] [place] [address] Critical [facility] 06/19/24 Ground Water Pump Installer Relationship Specialty Start Date End Date Cristian Adame MD [address] [place] [address] PCP - General Family Medicine 10/08/14 Yolande Hines CHILDREN'S AIDE.WET MACHINE TENDER [address] [facility] [place] [address] [facility] Medicine 06/19/24 Gilda Noonna APRN.WET MACHINE TENDER [address] [facility] [place] [address] Yeast Cake Cutter Family Medicine 06/19/24 Ground Water Pump Installer Relationship Specialty Start Date End Date Cristian Adame MD [address] [facility] [place] [address] PCP - General Family Medicine 10/08/14 Yolande Hines APRN.WET MACHINE TENDER [address] [facility] [place] [address] Yeast Cake Cutter Family Medicine 06/19/24 Gilda Noonan APRN.WET MACHINE TENDER [address] [facility] [address] [facility] Ground Water Pump Installer Relationship Specialty Start Date End Date Cristian Adame MD [address] [place] [address] PCP - General Family Medicine 10/08/14 Yolande Hines CHILDREN'S AIDE.WET MACHINE TENDER [address] [facility] [place] [address] Yeast Cake Cutter Family Medicine 06/19/24 Gilda Noonan APRN.WET MACHINE TENDER [address] [facility] [address] Yeast Cake Cutter Family [facility] 06/19/24 Ground Water Pump Installer Relationship Specialty Start Date End Date Cristian Adame MD [address] [facility] [place] [address] PCP - General Family Medicine 10/08/14 Yolande Hines CHILDREN'S AIDE.WET MACHINE TENDER [address] [place] [address] Yeast Cake Cutter Family Medicine 06/19/24 Gilda Noonan APRN.WET MACHINE TENDER [address] [facility] [place] [place] [address] Yeast Cake Cutter Family Medicine 06/19/24 Ground Water Pump Installer Relationship Specialty Start Date End Date Cristian Adame MD [address] [place] [address] PCP - General Family Medicine 10/08/14 Yolande Hines APRN.WET MACHINE TENDER [address] [place] [address] Yeast Cake Cutter Family Medicine 06/19/24 Gilda Noonan CHILDREN'S AIDE.WET MACHINE TENDER [address] [place] [address] Yeast Cake Cutter Family Medicine 06/19/24 Ground Water Pump Installer Relationship Specialty Start Date End Date Cristian Adame MD [address] [place] [address] PCP - General Family Medicine 10/08/14 Yolande Hines CHILDREN'S AIDE.WET MACHINE TENDER [address] [place] [address] Yeast Cake Cutter Family Medicine 06/19/24 Gilda Noonan CHILDREN'S AIDE.WET MACHINE TENDER [address] [place] [address] Yeast Cake Cutter Family [facility] 06/19/24 Ground Water Pump Installer Relationship Specialty Start Date End Date Cristian Adame MD [address] [place] [address] PCP - General Family Medicine 10/08/14 Yolande Hines, CHILDREN'S AIDE.WET MACHINE TENDER [address] [place], [place] [address] [facility] 06/19/24 Gilda oNonan CHILDREN'S AIDE.WET MACHINE TENDER [address] [place], [place] [address] [facility] 06/19/24 Team Status: Active Member Role/Relationship [...] 2025 End: January 18, 2025 Tayler Cardenas FIRST MATE, FIRST MATE-C Attending Provider Active Start: January 18, 2025 End: January 18, 2025 Ground Water Pump Installer Relationship Specialty Start Date End Date Cristian Adame MD [address] [place] [address] PCP - General Family Medicine 10/08/14 Yolande Hines, CHILDREN'S AIDE.WET MACHINE TENDER [address] [place] [address] [facility] Medicine 06/19/24 Gilda Noonan CHILDREN'S AIDE.WET MACHINE TENDER [address] [facility] [address] [facility] Medicine 06/19/24 Ground Water Pump Installer Relationship Specialty Start Date End Date Cristian Adame MD [address] [place] [address] PCP - General Family Medicine 10/08/14 Yolande Hines, CHILDREN'S AIDE.WET MACHINE TENDER [address] [place] [address] [facility] Medicine 06/19/24 Gilda Noonan CHILDREN'S AIDE.WET MACHINE TENDER [address] [place] [address] Critical Access [facility] 06/19/24 Ground Water Pump Installer Relationship Specialty Start Date End Date Cristian Adame MD [address] [place], [place] [address] PCP - General Family Medicine 10/08/14 Yolande Hines APRN.WET MACHINE TENDER [address] [place], [place] [address] [facility] 06/19/24 Gilda Noonan APRN.WET MACHINE TENDER [address] [place], [place] [address] [facility] 06/19/24 Team Status: Active Member Role/Relationship Status Dates Dr. Cristian Adame MD Primary Care Provider Active Start: February 06, 2025 Tayler Cardenas FIRST MATE, FIRST MATE-C Attending Provider Active Start: February 06, 2025 Tayler Cardenas FIRST MATE, FIRST MATE-C Referring Provider Active Start: February 06, 2025 Team Status: Inactive Member Role/Relationship Status Dates Dr. Cristian Adame MD Primary Care Provider Active Start: February 12, 2025 End: February 12, 2025 Tayler Cardenas FIRST MATE, FIRST MATE-C Referring Provider Active Start: February 12, 2025 End: February 12, 2025 Dr. Regino Burleson MD Attending Provider Active S tart: February 12, 2025 End: February 12, 2025 Team Status: Active Member Role/Relationship Status Dates Dr. Cristian Adame MD Primary Care Provider Active Start: February 13, 2025 Dr. Maria C Browning MD Other Provider Active Start: February 13, 2025 Yelena Gallegos FIRST MATE, FIRST MATE-C Other Provider Active St art: February 13, [...] 2025 End: February 13, 2025 Yelena Gallegos FIRST MATE, FIRST MATE-C Attending Provider Active Start: February 13, 2025 [...] February 15, 2025 End: February 15, 2025 Ground Water Pump Installer Relationship Specialty Start Date End Date Cristian Adame MD [address] [place], [place] [address] PCP - General Family Medicine 10/08/14 Yolande Hines, CHILDREN'S AIDE.WET MACHINE TENDER [address] [place], [place] [id number] Yeast Cake Cutter Family Medicine 06/19/24 Gilda Noonan, CHILDREN'S AIDE.WET MACHINE TENDER [address] [place], [place] [id number] Yeast Cake Cutter [facility] Medicine 06/19/24 Team Status: Inactive Member [...] End: February 06, 2025 Tayler Cardenas NP, FIRST MATE-C Attending Provider Active Start: February 06, 2025 End: February 06, 2025 Tayler Cardenas FIRST MATE, FIRST MATE-C Referring Provider Active Start: February 06, 2025 End: February 06, 2025 Team Status: Inactive Member Role/Relationship Status Dates Dr. Cristian Adame MD Primary Care Provider Active Start: February 13, 2025 End: February 13, 2025 Dr. Cristian Adame MD Referring Provider Active Start: February 13, 2025 End: February 13, 2025 Yelena Gallegos FIRST MATE, FIRST MATE-C Attending Provider Active Start: February 13, 2025 [...] 2025 End: March 01, 2025 Yelena Gallegos FIRST MATE, FIRST MATE-C Attending Provider Active Start: March 01, 2025 End: March 01, 2025 Team Status: Active Member Role/Relationship Status Dates Dr. Cristian Adame MD Primary Care Provider Active Start: March 01, 2025 Dr. Maria C Browning MD Other Provider Active Start: March 01, 2025 Yelena Gallegos NP, FIRST MATE-C Other Provider Active St art: March 01, 2025 Dr. Regino Burleson MD Attending Provider Active S tart: March 01, 2025 Dr. Regino Burleson MD Referring Provider Active S tart: March 01, 2025 Ground Water Pump Installer Relationship Specialty Start Date End Date Cristian Adame MD [address] [place], [place] [address] PCP - General Family Medicine 10/08/14 Yolande Hines APRN.WET MACHINE TENDER [address] [place], [place] [address] Yeast Cake Cutter Family Medicine 06/19/24 Gilda Noonan APRN.WET MACHINE TENDER [address] [place], [place] [address] Yeast Cake Cutter Family [facility] 06/19/24 Team Status: Inactive Member Role/Relationship Status Dates Dr. Cristian Adame MD Primary Care Provider Active Start: March 07, 2025 End: March 07, 2025 Dr. Cristian Adame MD Referring Provider Active Start: March 07, 2025 End: March 07, 2025 Tayler Cardenas FIRST MATE, FIRST MATE-C Attending Provider Active Start: March 07, 2025 End: March 07, 2025 Team Status: Inactive Member Role/Relationship Status Dates Dr. Cristian Adame MD Primary Care Provider Active Start: March 07, 2025 End: March 07, 2025 Dr. Cristian Adame MD Referring Provider Active Start: March 07, 2025 End: March 07, 2025 Tayler Cardenas FIRST MATE, FIRST MATE-C Attending Provider Active Start: March 07, 2025 [...] Active Start: March 08, 2025 Yelena Gallegos FIRST MATE, FIRST MATE-C Other Provider Active St art: March 08, 2025 Dr. Regino Burleson MD Attending Provider Active S tart: March 08, 2025 Dr. Regino Burleson MD Referring Provider Active S tart: March 08, 2025 Ground Water Pump Installer Relationship Specialty Start Date End Date Cristian Adame MD [address] [place], [place] [address] PCP - General Family Medicine 10/08/14 Yolande Hines, CHILDREN'S AIDE.WET MACHINE TENDER [address] [place], [place] [address] Yeast Cake Cutter Family [facility] 06/19/24 Gilda Noonan, CHILDREN'S AIDE.WET MACHINE TENDER [address] [place], [place] [address] [facility] 06/19/24 Team Status: Inactive Member Role/Relationship Status [...] 2025 End: January 18, 2025 Tayler Cardenas FIRST MATE, FIRST MATE-C Attending Provider Active Start: January 18, 2025 End: January 18, 2025 Team Status: Inactive Member Role/Relationship Status Dates Dr. Cristian Adame MD Primary Care Provider Active Start: February 06, 2025 End: February 06, 2025 Tayler Cardenas FIRST MATE, FIRST MATE-C Attending Provider Active Start: February 06, 2025 End: February 06, 2025 Tayler Cardenas FIRST MATE, FIRST MATE-C Referring Provider Active Start: February 06, 2025 End: February 06, 2025 Team Status: Inactive Member Role/Relationship Status Dates Dr. Cristian Adame MD Primary Care Provider Active Start: February 12, 2025 End: February 12, 2025 Tayler Cardenas FIRST MATE, FIRST MATE-C Referring Provider Active Start: February 12, 2025 [...] 2025 End: February 13, 2025 Yelena Gallegos FIRST MATE, FIRST MATE-C Attending Provider Active Start: February 13, 2025 [...] 2025 End: March 01, 2025 Yelena Gallegos FIRST MATE, FIRST MATE-C Attending Provider Active Start: March 01, 2025 End: March 01, 2025 Team Status: Inactive Member Role/Relationship Status Dates Dr. Cristian Adame MD Primary Care Provider Active Start: March 07, 2025 End: March 07, 2025 Dr. Cristian Adame MD Referring Provider Active Start: March 07, 2025 End: March 07, 2025 Tayler Cardenas FIRST MATE, FIRST MATE-C Attending Provider Active Start: March 07, 2025 [...] Active Start: March 15, 2025 Yelena Gallegos FIRST MATE, FIRST MATE-C Other Provider Active St art: March 15, [...] section and content) DATE CREATED AUTHOR 03/16/2025 [facility] DATE CREATED AUTHOR AUTHOR'S RACHELL ATJOSEY 03/20/2025 [facility] FOR RECORDS PERTAINING TO PATIENTS WHO [...] BE BASED ON THE PRIMARY CLINICAL RECORDS. [facility] [employer] [facility]. provides no warranty or guarantee of the accuracy or completeness of information in this document.
[2025-03-22 01:35] LABS: Magnesium 1.8 mg/dL (1.5-2.2)
[2025-03-22 05:07] LABS: Hematocrit 25.2 % (40-54); Hemoglobin 8.0 g/dL (13.0-16.5); Immature Granulocytes Count 0.020 X10^3/uL (0.0-0.0); Mean Corp Hgb Conc 31.7 g/dL (32-36); Mean Corpuscular Volume 80.5 fL (80-94); Mean Platelet Vol. 10.6 fl (6.2-12.0); NRBC Flagged by Analyzer 0 % (0-5); POSITIVE DIFFERENTIAL YES; Platelet Count 225 K/mm3 (150-450); RBC Distribution Width CV 16.5 % (11.6-14.6); RBC Distribution Width SD 47.8 fl (35.1-43.9); Red Blood Count 3.13 M/mm3 (4.6-6.2); White Blood Count 4.4 K/mm3 (4.4-11.0)
[2025-03-22 05:26] VITALS: BMI 17.8
[2025-03-22 05:55] LABS: AST(SGOT) 16 U/L (<=37); Alanine Aminotransfer ALT/SGPT 20 U/L (<=46); Albumin, Serum 2.4 g/dL (3.5-5.0); Alkaline Phosphatase 78 U/L (40-129); Anion Gap 11 (5-15); BUN 7 mg/dL (4-19); BUN/Creat Ratio 12.7 RATIO (10-20); Calcium,Total 8.0 mg/dL (7.6-11.0); Carbon Dioxide 18.3 mmol/L (21.0-32.0); Chloride 101 mmol/L (98-108); Estimated Creatinine Clearance 114.18 ml/min (50-250); Globulin 3.0 g/dL (2.2-4.2); Glucose 187 mg/dL (70-99); Potassium 3.9 mmol/L (3.3-5.1)
[2025-03-22 06:05] VITALS: BP 97/63; PULSE 94; RESP 20; TEMP 36.9; O2SAT 97
--- NOTE | 2025-03-22 07:01 | PN.HOSP_ITS ---
Reason for Visit Chief Complaint: Generalized Weakness and Concern for Dehydration. Subjective Subjective Patient has agreed to hospice services at home. Does state that his feet have been cold for the past several months even when putting on socks. Objective Data Objective Data Vital Signs: Vital Signs Temp Pulse Resp BP Pulse Ox O2 Del Method 36.9 C 94 20 H 97/63 97 Room Air 03/22/25 06:05 03/22/25 06:05 03/22/25 06:05 03/22/25 06:05 03/22/25 06:05 03/22/25 06:05 Oxygen Delivery Method Room Air Weight: 54.5 kg Body Mass Index (BMI) 17.8 Intake & Output: Intake and Output for Last 24 Hours 03/20/25 03/21/25 03/22/25 23:59 23:59 23:59 Intake Total 1999 Balance 1999 Lab / Micro Data 03/22/25 04:06 03/22/25 04:06 Labs: Laboratory Results - last 24 hr 03/21/25 21:02: WBC 4.7, RBC 3.55 L, Hgb 9.3 L, Hct 28.6 L, MCV 80.6, MCH 26.2 L , MCHC 32.5, RDW Std Deviation 46.9 H, RDW Coeff of Ted 16.3 H, Plt Count 277, MPV 11.6, Immature Gran % (Auto) 1.100 H, Neut % (Auto) 73.1 H, Lymph % (Auto) 14.6 L, [place] % (Auto) 10.2 H, Eos % (Auto) 0.2, Baso % (Auto) 0.8, Absolute Neuts (auto) 3.5, Absolute Lymphs (auto) 0.69 L, Nucleated RBC % 0, Sodium 128 L , Potassium 4.8, Chloride 94 L, Carbon Dioxide 20.9 L, Anion Gap 13, BUN 9, Creatinine 0.87, Estim Creat Clear Calc 76.24, Est GFR (MDRD) Non-Af 105, BUN/Creatinine Ratio 10.9, Glucose 212 H, Calcium 8.9, Magnesium 1.8, Total Bilirubin 0.70, AST 29, ALT 29, Alkaline Phosphatase 92, Total Protein 6.7, A lbumin 2.8 L, Globulin 3.9, Albumin/Globulin Ratio 0.7 L, Lipase 13 03/21/25 22:22: Urine Color Yellow, Urine Clarity Clear, Urine pH 6.5, Ur Specific [place] 1.005, Urine Protein 30 H, Urine Glucose (UA) Normal, Urine Ketones Negative, Urine Occult Blood 10 H, Urine Nitrite Negative, Urine Bilirubin Negative, Urine Urobilinogen 1 H, Ur Leukocyte Esterase Negative, Urine RBC 0-5 SEEN, Urine WBC 0-5 SEEN, Ur Squamous Epith Cells 0-5 SEEN, Urine Bacteria 0 SEEN, Urine Mucus 0 SEEN 03/22/25 04:06: WBC 4.4, RBC 3.13 L, Hgb 8.0 L, Hct 25.2 L, MCV 80.5, MCH 25.6 L , MCHC 31.7 L, RDW Std Deviation 47.8 H, RDW Coeff of Ted 16.5 H, Plt Count 225, MPV 10.6, Immature Gran % (Auto) 0.500, Neut % (Auto) 74.2 H, Lymph % (Auto) 12.3 L, [place] % (Auto) 11.6 H, Eos % (Auto) 0.5, Baso % (Auto) 0.9, Absolute Neuts (auto) 3.3, Absolute Lymphs (auto) 0.54 L, Nucleated RBC % 0, Sodium 130 L , Potassium 3.9, Chloride 101, Carbon Dioxide 18.3 L, Anion Gap 11, BUN 7, C reatinine 0.59 L, Estim Creat Clear Calc 114.18, Est GFR (MDRD) Non-Af 118, BUN/Creatinine Ratio 12.7, Glucose 187 H, Calcium 8.0, Phosphorus 3.4, Total Bilirubin 0.46, AST 16, ALT 20, Alkaline Phosphatase 78, Total Protein 5.4 L, A lbumin 2.4 L, Globulin 3.0, Albumin/Globulin Ratio 0.8 L, TSH 2.270 Radiography Diagnostic Testing: Radiology Impression Abdomen/Pelvis CT 03/21/25 20:33 IMPRESSION: 1. Innumerable pulmonary metastatic lesions, increased in size and number since the previous study. 2. Nodular densities in the bilateral infrahilar regions may represent enlarged lymph nodes. 3. Inferior mediastinal lymphadenopathy, new since the previous study. 4. Large lobulated epigastric mass, increased in size since the previous study and compatible with either primary malignancy or a conglomeration of enlarged lymph nodes. 5. Upper abdominal lymphadenopathy, similar to the previous study. 6. Lobulated low densities within the right lobe of the liver, increased in size and/or new since the previous study and concerning for metastatic lesions. 7. Large amount of stool throughout the colon. Reading Location: [id number] Physical Exam Const Constitutional Narrative: Thin. Afebrile. No respiratory distress. No conversational dyspnea. Extremity Extremity Narrative: Pulses intact. No cyanosis or edema lower extremities and feet. Assessment & Plan Assessment/Plan (1) Adult failure to thrive: PLAN: multifactorial: 2/2 significant weight loss (50# since November), stage IV lung CA Plan is for home with hospice. (2) Metastatic primary lung cancer: PLAN: NSCLC (squamous) 02/06/2025 PET/CT showed marked interval worsening of bilateral pulmonary, bilateral hilar, mediastinal, pancreatic body, left retroperitoneal, hepatic, and osseous malignancy/metastatic disease. Started Keytruda, Carboplatin and Abraxane on 03/01/2025. Came in for C1D8 Abraxane. Palliative care consulted No further plans for further treatment at this time. Plans for home with hospice. (3) Hyponatremia: PLAN: Mild. Likely 2/2 poor oral intake. Up slightly today. Monitor for now. Patient takes salt tablets at home. As patient is not hospice, will not continue without. (4) Weight loss, non-intentional: PLAN: 2/2 malignancy weight loss of 50# Diet as tolerated. (5) Constipation: PLAN: received lactulose on Miralax PLAN: Plan Plan is to discharge home with hospice. I discontinued the VTE prophylaxis as patient is now hospice and does not want the medications. Discussed with the patient significant other as well as his friend at bedside.
--- NOTE | 2025-03-22 08:36 | CON.PCM.PA_ITS ---
FORMERLY [facility] Medical History Constipation Encounter for antineoplastic chemotherapy and immunotherapy Hyponatremia Wears dentures Wears glasses Back pain Gastric reflux Former smoker History of stress test Cancer Encounter for education Home Medications Medication Instructions Recorded Last Taken Type lidocaine-prilocaine 2.5 %-2.5 % 1 applic topical ONCE PRN port 02/13/25 Unknown Rx topical cream access 30 days #30 grams ondansetron 8 mg disintegrating 8 mg PO Q8H PRN nausea and 03/01/25 Unknown Rx tablet vomiting #30 tabs polyethylene glycol 3350 17 4 g PO ONCE #510 grams Unknown Rx gram/dose oral powder (Miralax) Nebulizer machine #1 ea 03/07/25 Unknown Rx ipratropium 0.5 mg-albuterol 3 mg 3 ml inhalation Q4H PRN SOB &/OR 03/07/25 Unknown Rx (2.5 mg base)/3 mL nebulization WHEEZING #180 mL soln lorazepam 1 mg tablet 1 mg PO TID PRN anxiety #15 tabs 03/22/25 Unknown Rx oxycodone 5 mg tablet 5 mg PO Q4H PRN PRN pain (sc casimiro 03/22/25 Unknown Rx score 7-10) 5 days #20 tabs Allergy/AdvReac Type Severity Reaction Status Date / Time sulfamethoxazole (From Allergy Unknown Verified 03/21/25 19:37 Bactrim) trimethoprim (From Bactrim) Allergy Unknown Verified 03/21/25 19:37 amoxicillin trihydrate (From AdvReac Nausea Verified 03/21/25 19:37 Augmentin) potassium clavulanate (From AdvReac Nausea Verified 03/21/25 19:37 Augmentin) Family History Mother Diabetes Cancer Father Diabetes Grandmother Cancer Surgical History Previous back surgery History of hernia surgery History of appendectomy History of surgery on arm Social History household members: significant other Smoking Status: Former smoker quit date: 01/07/25 second hand exposure: Yes alcohol intake: never substance use type: does not use ROS Constitutional Constitutional: Reports anorexia, change in weight, lethargy, poor appetite, weakness, weight loss and other Details: >50 pound weight loss Eyes Eyes: Reports systems reviewed and no addt'l complaints, except as documented ENT HEENT: Reports systems reviewed and no addt'l complaints, except as documented Cardiovascular Cardiovascular: Reports dyspnea Respiratory/Chest Respiratory/Chest: Reports as per HPI and dyspnea on exertion Gastrointestinal Gastrointestinal: Reports as per HPI and constipation Genitourinary Genitourinary: Reports systems reviewed and no addt'l complaints, except as documented Musculoskeletal Musculoskeletal: Reports systems reviewed and no addt'l complaints, except as documented Integumentary Integumentary: Reports systems reviewed and no addt'l complaints, except as documented Neurologic Neurologic: Reports systems reviewed and no addt'l complaints, except as documented Psychiatric Psychiatric: Reports other Details: saddness but appropriate response to medical dx Endocrine Endocrinology: Reports as per HPI Hematologic/Lymphatic Hematologic/Lymphatic: Reports as per HPI Allergic/Immunologic Allergic/Immunologic: Reports systems reviewed and no addt'l complaints, except as documented Physical Exam Const alert and oriented x3 General Appearance: cooperative HEENT normocephalic Eyes PERRL Neck General: trachea midline Lymph Lymphatic: lymphadenopathy Resp normal respiratory effort Auscultation: wheezes and diminished lung sounds Cardio regular rate Peripheral Pulses: pulses 2+ throughout GI GI Narrative: constipation Extremity normal capillary refill Skin no rashes or lesions noted Neuro CN's II-XII intact bilaterally Speech: speech normal Psych affect normal Charges/Coding Palliative Care Palliative Care: 35280 New Pt Consult 80+ min HPI Current admission Current Code Status: DNRCC Associated Diagnosis: metastatic lung ca Consult Data Date of Consult: 03/22/25 Location of consult: [facility] Reason for referral: goals of care Palliative care diagnosis (Summary list): metastatic lung CA with progression Case discussed with referring provider: decisions on disposition HPI Narrative HPI Narrative: 03/22/25: Prior to meeting with the patient at bedside I reviewed documentation and labs and radiological studies. I also read notes from the oncology team. I then met with the patient, Tao at bedside. Introduced myself and the concept of palliative care which he voluntarily excepted our services. Tao is very cachectic in appearance he does endorse having a greater than 50 pound weight loss. We did discuss what he knew of his disease process at this moment in time. We also discussed its progression and where he is now. Tao stated that he understands that he is getting worse and not better despite aggressive medical management. He stated "I knew it was getting bad because I feel so weak." We then discussed goals of care going forward in which she states he wants to be comfortable. He states that both his mom and his brother [facility] and is requesting to utilize their services as well. He did state interest in pastoral services in which I reached out to insulation professional Ray to see him today. I did offer support to him right now and discussed his concerns going forward. His biggest concern is pain and he does not want to be in pain. I did assure him that hospice can provide pain control for him as his clinical picture evolves. Based on the patient's presentation and worsening condition I do feel hospice is the best option for him, based on disease progression and his goals of care. We then finally discussed his CODE STATUS which is documented as being "full" Tao was very adamant that he would not want to be intubated or have chest compressions done. He then switched his CODE STATUS to DNR CC and is hoping to return home tomorrow. All questions were answered. I did update case management about patient's decision. Per hospitalist HPI: "TAO ELIAS, is a 49 M with a past medical history of DM-2; of unknown control on metformin twice daily, former tobacco abuse (quit 01/07/2025), history of hyponatremia of 126 mmol/L on February 12, 2025 and history of previously known stage IV metastatic lung cancer; with patient treated with immunotherapy and last antineoplastic chemotherapy ~6 days ago followed by Dr. Burleson of oncology who presents to [facility] ER after being sent in by his oncologist due to concerns regarding generalized weakness and dehydration. Mr. Elias reports he has lost ~50 pounds since November when he was first diagnosed with metastatic lung cancer in addition to not having a bowel movement for the past week. He admits to upper abdominal pain with nausea and decreased appetite plus lethargy but he denies related fever, chills, changes in vision, discharge from eyes, runny nose, sore throat, chest pain, palpitations, heart racing, lower extremity edema, shortness of breath, cough, dysuria, hematuria, urinary frequency, arthralgias, myalgias, headache or rash. In the ER he was noted to have mild Hyponatremia of 128 mmol/L with a normal BUN/creatinine ratio of 10.9 in the setting of Adult [facility] in the setting of previously known likely terminal lung cancer resistant to recent chemotherapy with the patient in need of palliative care consultation with CT scan this admission revealing innumerable pulmonary metastatic lesions increased in size and number since previous study with nodular densities in the bilateral infrahilar regions which may represent enlarged lymph nodes inferior mediastinal lymphadenopathy new since previous study with large lobulated epigastric mass which is increased in size since previous study and compatible with either primary malignancy or active glomera ration of enlarged lymph nodes with upper abdominal lymphadenopathy similar to previous study and loculated low densities within the Right lower lobe of the liver increased in size and/or new since previous study and concerning for metastatic lesions with a large amount of stool throughout the colon. He was then admitted to the general medical floor under observation status for ongoing care for state that is expected to be less than 2 midnights." Palliative Assessment Advanced Directive - Current Admission Advance Directive: Advance Directive ON ADMISSION - REFERENCE 3 Do you have a Healthcare No 03/22/25 00:59 Living Will? Do you have a Healthcare Power No 03/22/25 00:59 of Personalized Living Assistant? Do You Want Additional Declined 03/22/25 00:59 Information on Advanced Directives or Healthcare Proxy/DPOA comments: no formal Psychosocial/Spiritual Information Living situation/Marital status: lives with girlfriend [place] location[place] Supports: girlfriend, friends Episcopalian/Tania or spiritual preference: low Spiritual distress: wants to see rod puller Prior functional status: Goes from bed to chair to bathroom . Unable to cook for himself Assistive devices at home: cane Cultrual issues: none Information about the patient as a person: likes to watch TV Symptoms Palliative performance scale: 50 Palliative prognostic index: 6.0 (if the PPI it is greater than 6.0, survival is less than 3 weeks.) Dyspnea symptoms: Mild Constipation symptoms: Moderate Nausea symptoms: None Vomiting symptoms: None Depression symptoms: Mild Anorexia symptoms: Severe Cough symptoms: None Insomnia symptoms: None Fatigue symptoms: Moderate Weakness symptoms: Moderate Confusion symptoms: None Objective Data Objective Data Vital Signs: Vital Signs Temp Pulse Resp BP Pulse Ox O2 Del Method 98.4 F 94 20 H 97/63 97 Room Air 03/22/25 06:05 03/22/25 06:05 03/22/25 06:05 03/22/25 06:05 03/22/25 06:05 03/22/25 06:05 Oxygen Delivery Method Room Air Weight: 120 lb 2.431 oz Body Mass Index (BMI) 17.8 Intake & Output: Intake and Output for Last 24 Hours 03/20/25 03/21/25 03/22/25 23:59 23:59 23:59 Intake Total 1999 Balance 1999 Lab / Micro Data Attestation: I reviewed the patient's lab results. 03/22/25 04:06 03/22/25 04:06 Labs: Laboratory Results - last 24 hr 03/21/25 21:02: WBC 4.7, RBC 3.55 L, Hgb 9.3 L, Hct 28.6 L, MCV 80.6, MCH 26.2 L , MCHC 32.5, RDW Std Deviation 46.9 H, RDW Coeff of Ted 16.3 H, Plt Count 277, MPV 11.6, Immature Gran % (Auto) 1.100 H, Neut % (Auto) 73.1 H, Lymph % (Auto) 14.6 L, [place] % (Auto) 10.2 H, Eos % (Auto) 0.2, Baso % (Auto) 0.8, Absolute Neuts (auto) 3.5, Absolute Lymphs (auto) 0.69 L, Nucleated RBC % 0, Sodium 128 L , Potassium 4.8, Chloride 94 L, Carbon Dioxide 20.9 L, Anion Gap 13, BUN 9, Creatinine 0.87, Estim Creat Clear Calc 76.24, Est GFR (MDRD) Non-Af 105, BUN/Creatinine Ratio 10.9, Glucose 212 H, Calcium 8.9, Magnesium 1.8, Total Bilirubin 0.70, AST 29, ALT 29, Alkaline Phosphatase 92, Total Protein 6.7, A lbumin 2.8 L, Globulin 3.9, Albumin/Globulin Ratio 0.7 L, Lipase 13 03/21/25 22:22: Urine Color Yellow, Urine Clarity Clear, Urine pH 6.5, Ur Specific [place] 1.005, Urine Protein 30 H, Urine Glucose (UA) Normal, Urine Ketones Negative, Urine Occult Blood 10 H, Urine Nitrite Negative, Urine Bilirubin Negative, Urine Urobilinogen 1 H, Ur Leukocyte Esterase Negative, Urine RBC 0-5 SEEN, Urine WBC 0-5 SEEN, Ur Squamous Epith Cells 0-5 SEEN, Urine Bacteria 0 SEEN, Urine Mucus 0 SEEN 03/22/25 04:06: WBC 4.4, RBC 3.13 L, Hgb 8.0 L, Hct 25.2 L, MCV 80.5, MCH 25.6 L , MCHC 31.7 L, RDW Std Deviation 47.8 H, RDW Coeff of Ted 16.5 H, Plt Count 225, MPV 10.6, Immature Gran % (Auto) 0.500, Neut % (Auto) 74.2 H, Lymph % (Auto) 12.3 L, [place] % (Auto) 11.6 H, Eos % (Auto) 0.5, Baso % (Auto) 0.9, Absolute Neuts (auto) 3.3, Absolute Lymphs (auto) 0.54 L, Nucleated RBC % 0, Sodium 130 L , Potassium 3.9, Chloride 101, Carbon Dioxide 18.3 L, Anion Gap 11, BUN 7, C reatinine 0.59 L, Estim Creat Clear Calc 114.18, Est GFR (MDRD) Non-Af 118, BUN/Creatinine Ratio 12.7, Glucose 187 H, Calcium 8.0, Phosphorus 3.4, Total Bilirubin 0.46, AST 16, ALT 20, Alkaline Phosphatase 78, Total Protein 5.4 L, A lbumin 2.4 L, Globulin 3.0, Albumin/Globulin Ratio 0.8 L, TSH 2.270 Radiography Diagnostic Testing: Radiology Impression Abdomen/Pelvis CT 03/21/25 20:33 IMPRESSION: 1. Innumerable pulmonary metastatic lesions, increased in size and number since the previous study. 2. Nodular densities in the bilateral infrahilar regions may represent enlarged lymph nodes. 3. Inferior mediastinal lymphadenopathy, new since the previous study. 4. Large lobulated epigastric mass, increased in size since the previous study and compatible with either primary malignancy or a conglomeration of enlarged lymph nodes. 5. Upper abdominal lymphadenopathy, similar to the previous study. 6. Lobulated low densities within the right lobe of the liver, increased in size and/or new since the previous study and concerning for metastatic lesions. 7. Large amount of stool throughout the colon. Reading Location: [facility] Impressions & Recommendations Patient & Family Issues discussed with the patient and family: Advancing metastatic cancer despite aggressive medical management Patient goal: Comfort and quality of life. Family goal: No family present Ethical & Legal Ethical and legal: None Impressions Impressions: Patient would benefit from hospice to concentrate on quality of life and pain management. Recommentation Palliative recommendations: hospice versus Palliative outpatient Encouter Achieved as a result of this Palliative Care Encounter: [ [id number], [id number], [phone]] minutes were spent in total for this visit which consisted, primarily of counseling and education dealing with the complex and emotionally intense issues of symptom management and palliative care in the setting of serious and potentially life-threatening illness. Review of documentation, labs and radiological studies. Patient/family had the opportunity to ask questions Plan (1) Metastatic primary lung cancer: PLAN: Medical management per primary team (2) Shortness of breath: PLAN: Medical management per primary team (3) Adult failure to thrive: PLAN: Medical management per primary team Patient may benefit from appetite stimulant. (4) Palliative care encounter: PLAN: Efforts to complete session with the patient, he is elected to transition to comfort care and hospice. Case management updated Patient was given choice and [facility].
[2025-03-22] MEDS: Heparin Injection (Vial) 5,000 UNIT/ML VIAL 5000 UNIT SC (09:29)
[2025-03-22] MEDS: Polyethylene Glycol 3350 17 GM PACKET 4 GM PO (09:30)
--- NOTE | 2025-03-22 10:36 | CASEMGMT ---
Social Work Pt met w/palliative care TERMITE CONTROL REPRESENTATIVE Ayanna this morning, would like referral to [facility]. SW spoke w/pt, he would like his girlfriend present for the meeting and would like hospice to call her to set up the meeting. Girlfriend is present and confirmed phone number. Pt would also like to complete POA papers if time allows. SW faxed referral, and called referral in to [facility]. They are to call pt's significant other, Trudy, to set up appt, and to let SW know time of meeting. ARTEMIO Fernandez
--- NOTE | 2025-03-22 10:44 | PCM.DC.SUM ---
Providers Date of Admission: 03/22/25 Primary Care Physician: Dr. Cristian Barnett MD Reason For Visit: ADULT FAILURE TO THRIVE WITH METASTATIC LUNG Diagnosis Discharge Diagnosis (1) Adult failure to thrive: Status: Acute Code(s): R62.7 - Adult failure to thrive Plan: multifactorial: 2/2 significant weight loss (50# since November), stage IV lung CA Plan is for home with hospice. (2) Metastatic primary lung cancer: Status: Acute Code(s): C34.90 - Malignant neoplasm of unspecified part of unspecified bronchus or lung Plan: NSCLC (squamous) 02/06/2025 PET/CT showed marked interval worsening of bilateral pulmonary, bilateral hilar, mediastinal, pancreatic body, left retroperitoneal, hepatic, and osseous malignancy/metastatic disease. Started Keytruda, Carboplatin and Abraxane on 03/01/2025. Came in for C1D8 Abraxane. Palliative care consulted No further plans for further treatment at this time. Plans for home with hospice. (3) Hyponatremia: Status: Acute Code(s): E87.1 - Hypo-osmolality and hyponatremia Plan: Mild. Likely 2/2 poor oral intake. Up slightly today. Monitor for now. Patient takes salt tablets at home. As patient is not hospice, will not continue without. (4) Weight loss, non-intentional: Status: Acute Code(s): R63.4 - Abnormal weight loss Plan: 2/2 malignancy weight loss of 50# Diet as tolerated. (5) Constipation: Status: Acute Code(s): K59.00 - Constipation, unspecified Plan: received lactulose on Miralax Plan Plan is to discharge home with hospice. I discontinued the VTE prophylaxis as patient is now hospice and does not want the medications. Discussed with the patient significant other as well as his friend at bedside. Medications at Discharge Home Medications lidocaine-prilocaine 2.5 %-2.5 % topical cream 1 applic topical ONCE PRN port access 30 days #30 grams 02/13/25 ondansetron 8 mg disintegrating tablet 8 mg PO Q8H PRN nausea and vomiting #30 tabs 03/01/25 polyethylene glycol 3350 17 gram/dose oral powder (Miralax) 4 g PO ONCE #510 grams 03/01/25 Nebulizer machine #1 ea 03/07/25 ipratropium 0.5 mg-albuterol 3 mg (2.5 mg base)/3 mL nebulization soln 3 ml inhalation Q4H PRN SOB &/OR WHEEZING #180 mL 03/07/25 lorazepam 1 mg tablet 1 mg PO TID PRN anxiety #15 tabs 03/22/25 oxycodone 5 mg tablet 5 mg PO Q4H PRN PRN pain (scale score 7-10) 5 days #20 tabs 03/22/25 Hospital Course Operations None Procedures None Summary of Care Provided Hospital Course: Greater than 30-minute spent on discharge This is a 49-year-old male with a history of non-small cell lung cancer that has remained refractory to previous treatments. Patient has lost 50 pounds since November. He is weak. He did meet with palliative care and has agreed to proceed with hospice services at home. Will adjust his medications to make them comfortable and proceed with hospice services at home. Will also work on DME equipment. Weight / BMI Weight Weight: 54.5 kg Body Mass Index (BMI) 17.8 ABG / Lab / Microbiology Data 03/22/25 04:06 03/22/25 04:06 Laboratory: Laboratory Results - last 24 hr 03/21/25 21:02: WBC 4.7, RBC 3.55 L, Hgb 9.3 L, Hct 28.6 L, MCV 80.6, MCH 26.2 L, MCHC 32.5, RDW Std Deviation 46.9 H, RDW Coeff of Ted 16.3 H, Plt Count 277, MPV 11.6, Immature Gran % (Auto) 1.100 H, Neut % (Auto) 73.1 H, Lymph % (Auto) 14.6 L, [place] % (Auto) 10.2 H, Eos % (Auto) 0.2, Baso % (Auto) 0.8, Absolute Neuts (auto) 3.5, Absolute Lymphs (auto) 0.69 L, Nucleated RBC % 0, Sodium 128 L, Potassium 4.8, Chloride 94 L, Carbon Dioxide 20.9 L, Anion Gap 13, BUN 9, Creatinine 0.87, Estim Creat Clear Calc 76.24, Est GFR (MDRD) Non-Af 105, BUN/Creatinine Ratio 10.9, Glucose 212 H, Calcium 8.9, Magnesium 1.8, Total Bilirubin 0.70, AST 29, ALT 29, Alkaline Phosphatase 92, Total Protein 6.7, Albumin 2.8 L, Globulin 3.9, Albumin/Globulin Ratio 0.7 L, Lipase 13 03/21/25 22:22: Urine Color Yellow, Urine Clarity Clear, Urine pH 6.5, Ur Specific Marcy 1.005, Urine Protein 30 H, Urine Glucose (UA) Normal, Urine Ketones Negative, Urine Occult Blood 10 H, Urine Nitrite Negative, Urine Bilirubin Negative, Urine Urobilinogen 1 H, Ur Leukocyte Esterase Negative, Urine RBC 0-5 SEEN, Urine WBC 0-5 SEEN, Ur Squamous Epith Cells 0-5 SEEN, Urine Bacteria 0 SEEN, Urine Mucus 0 SEEN 03/22/25 04:06: WBC 4.4, RBC 3.13 L, Hgb 8.0 L, Hct 25.2 L, MCV 80.5, MCH 25.6 L, MCHC 31.7 L, RDW Std Deviation 47.8 H, RDW Coeff of Ted 16.5 H, Plt Count 225, MPV 10.6, Immature Gran % (Auto) 0.500, Neut % (Auto) 74.2 H, Lymph % (Auto) 12.3 L, [place] % (Auto) 11.6 H, Eos % (Auto) 0.5, Baso % (Auto) 0.9, Absolute Neuts (auto) 3.3, Absolute Lymphs (auto) 0.54 L, Nucleated RBC % 0, Sodium 130 L, Potassium 3.9, Chloride 101, Carbon Dioxide 18.3 L, Anion Gap 11, BUN 7, Creatinine 0.59 L, Estim Creat Clear Calc 114.18, Est GFR (MDRD) Non-Af 118, BUN/Creatinine Ratio 12.7, Glucose 187 H, Calcium 8.0, Phosphorus 3.4, Total Bilirubin 0.46, AST 16, ALT 20, Alkaline Phosphatase 78, Total Protein 5.4 L, Albumin 2.4 L, Globulin 3.0, Albumin/Globulin Ratio 0.8 L, TSH 2.270 Radiography Diagnostic Testing: Radiology Impression Abdomen/Pelvis CT 03/21/25 20:33 IMPRESSION: 1. Innumerable pulmonary metastatic lesions, increased in size and number since the previous study. 2. Nodular densities in the bilateral infrahilar regions may represent enlarged lymph nodes. 3. Inferior mediastinal lymphadenopathy, new since the previous study. 4. Large lobulated epigastric mass, increased in size since the previous study and compatible with either primary malignancy or a conglomeration of enlarged lymph nodes. 5. Upper abdominal lymphadenopathy, similar to the previous study. 6. Lobulated low densities within the right lobe of the liver, increased in size and/or new since the previous study and concerning for metastatic lesions. 7. Large amount of stool throughout the colon. Reading Location: [facility] D/C Instructions DC O2, CPAP, BIPAP Needs Home O2 Discharge instructions: No Meaningful Use Info Meaningful Use Meaningful Use Diagnoses (Choose all that apply): None applicable Discharge Plan Admission Admit Date/Time: 03/22/25 00:03 Primary Reason for Your Visit: Weakness Attending Provider: Naeem Awan Primary Care Provider: Cristian Barnett Consulting Providers: Theodore Mcmillan Discharge Orders/Prescriptions Prescriptions: New lorazepam 1 mg tablet 1 mg PO TID PRN (Reason: anxiety) Qty: 15 0RF Continued ondansetron 8 mg tablet,disintegrating 8 mg PO Q8H PRN (Reason: nausea and vomiting) Qty: 30 2RF polyethylene glycol 3350 [Miralax] 17 gram/dose powder 4 g PO ONCE Qty: 510 0RF lidocaine-prilocaine 2.5-2.5 % cream 1 applic topical ONCE PRN (Reason: port access) 30 Days Qty: 30 2RF ipratropium-albuterol 0.5 mg-3 mg(2.5 mg base)/3 mL solution for nebulization 3 ml inhalation Q4H PRN Qty: 180 6RF (DME) Nebulizer machine See Rx Instructions .ROUTE .MEDSUPPLY Qty: 1 0RF Rx Instructions: As directed Changed oxycodone 5 mg tablet 5 mg PO Q4H PRN PRN (Reason: pain (scale score 7-10)) 5 Days Qty: 20 0RF Discontinued folic acid 1 mg tablet 1 mg PO QDAY metformin 500 mg tablet extended release 24 hr 1,000 mg PO QDAY sodium chloride 1,000 mg tablet,soluble 1,000 mg PO QDAY Qty: 30 0RF dexamethasone 4 mg tablet 8 mg PO .COMPLEX Qty: 30 2RF Rx Instructions: 8 mg orally ONLY on days 2 & 3 of chemotherapy cycle naloxone 4 mg/actuation spray,non-aerosol intranasal Patient Comments: Use 1 spray in one nostril as needed for overdose. May repeat every 2 to 3 min in alternating nostrils until medical assistance is available Referrals / Follow Up: Cristian Barnett MD [Primary Care Provider] - Within 2 Weeks Disposition Disposition (needs filled in before D/C Order can be placed): Hospice in Home Charges/Coding Visit Charges Inpatient E&M: 92808 Disch Hosp >30min
--- NOTE | 2025-03-22 11:13 | PHA.DC.MR.R ---
Pharmacy [place] Med Reconciliation Pharmacy Service has performed discharge medication reconciliation for this patient. The patient's discharge medication list was reviewed for discrepancies and discrepancies were resolved. Medications at Discharge Home Medications lidocaine-prilocaine 2.5 %-2.5 % topical cream 1 applic topical ONCE PRN port access 30 days #30 grams 02/13/25 ondansetron 8 mg disintegrating tablet 8 mg PO Q8H PRN nausea and vomiting #30 tabs 03/01/25 polyethylene glycol 3350 17 gram/dose oral powder (Miralax) 4 g PO ONCE #510 grams 03/01/25 Nebulizer machine #1 ea 03/07/25 ipratropium 0.5 mg-albuterol 3 mg (2.5 mg base)/3 mL nebulization soln 3 ml inhalation Q4H PRN SOB &/OR WHEEZING #180 mL 03/07/25 lorazepam 1 mg tablet 1 mg PO TID PRN anxiety #15 tabs 03/22/25 oxycodone 5 mg tablet 5 mg PO Q4H PRN PRN pain (scale score 7-10) 5 days #20 tabs 03/22/25
[2025-03-22 12:00] VITALS: BP 105/72; PULSE 85; RESP 18; TEMP 36.6; O2SAT 98
--- NOTE | 2025-03-22 13:13 | CASEMGMT ---
Social Work SW spoke w/hospice, they will be here at 5:30pm to meet w/pt and family. Physician notified. ARTEMIO Fernandez
--- NOTE | 2025-03-22 14:47 | CHAPLAIN ---
Type of Pastoral Visit _x__ Initial Visit ___ Follow-up Visit ___ On-call Visit ___ General Patient Visit ___ Spiritual Assessment ___ Family Conference ___ Bereavement ___ Rapid Response ___ Code Blue ___ Other (describe below) Pastoral Care Referral From _x__ Patient ___ Family _x__ Nurse ___ Physician ___ Supervisor [employer] ___ Traffic Law Attorney ___ Other (describe below) Sacrament/Intervention _x__ Active listening ___ Anointing ___ Jain ___ Bereavement ___ Communion _x__ Tania exploration ___ _x__ Life review _x__ Prayer ___ Reconciliation ___ Sacrament of Sick _x__ Supportive presence ___ Wedding ___ Other (describe below) Pastoral Comments referral came from [employer] with Palliative Care; pt is willing to talk and have support since learning of more complete diagnosis of cancer; pt is in process of thoughts and feelings but states that he relies on good friends and on his SO for support and help; pt identifies as a believer but not hoahaoism; pt welcomes spiritual care support and prayer; pt is given time to express himself and to receive presence of someone at the bedside;
--- NOTE | 2025-03-22 15:31 | CASEMGMT ---
Social Work Patient did not want assistance with completing a POA/LW. Patient wanted to speak with his niece first. SW provided the patient a blank copy of POA/LW. CRISTIAN Freed
[2025-03-22] MEDS: 0.9% Saline Lock 10 ML Syringe IV (17:50)
[2025-03-22 20:19] VITALS: BP 104/67; PULSE 116; RESP 18; TEMP 36.9; O2SAT 95
[2025-03-23 03:36] VITALS: BP 99/61; PULSE 104; RESP 16; TEMP 37.6; O2SAT 93
[2025-03-23 05:25] VITALS: BMI 17.9
[2025-03-23 05:40] VITALS: BP 97/65; PULSE 114; RESP 18; TEMP 37.3; O2SAT 97
[2025-03-23 09:31] VITALS: BP 103/92; PULSE 105; RESP 16; TEMP 36.5; O2SAT 98
--- NOTE | 2025-03-23 10:35 | CASEMGMT ---
CARTER Met with patient to complete CARTER form. CARTER form and its content were verbally explained and patient's questions were answered to the best of my ability. Patient voiced understanding and signed CARTER form. Patient provided a copy of signed CARTER form and original placed in patient's chart. Patient had no further questions. Radha Barragan, Discharge Planning Asst
--- NOTE | 2025-03-23 10:54 | PCM.PN.HOSP ---
Reason for Visit Chief Complaint: Generalized Weakness and Concern for Dehydration. Subjective Subjective Patient was not discharged as he met with hospice later in the day on the . Feeling okay right now. Objective Data Objective Data Vital Signs: Vital Signs Temp Pulse Resp BP Pulse Ox O2 Del Method 36.5 C L 105 H 16 103/92 H 98 Room Air 03/23/25 09:31 03/23/25 09:31 03/23/25 09:31 03/23/25 09:31 03/23/25 09:31 03/23/25 09:32 Oxygen Delivery Method Room Air Weight: 55.1 kg Body Mass Index (BMI) 17.9 Intake & Output: Intake and Output for Last 24 Hours 03/21/25 03/22/25 03/23/25 23:59 23:59 23:59 Intake Total 1999 1000 / 1120 220 / 220 Balance 1999 220 / 220 Medical Nutrition Assessment Dietitian: Malnutrition Criteria Met Start: 03/22/25 12:03 Freq: Status: Active Protocol: Document 03/22/25 12:03 RMA (Rec: 03/22/25 12:03 RMA [id number]) Nutrition Malnutrition Evidence of Yes Malnutrition Exists Malnutrition (severe Chronic ): Evidenced By Suboptimal Energy Intake (Severe),Weight Loss (Severe), Physical Changes (Severe) Clinical Problem Chronic Disease or Condition Related Malnutrition Etiology Severe protein-calorie malnutrition in the context of chronic illness related to inadequate energy/oral intake and increased energy expenditure due to metastatic disease Signs/Symptoms as evidenced by ~22% unintentional body weight loss in less than 6 months; BMI 17.7; PO meeting less than 50% estimated nutrition needs x past 1 month; +NFPE revealing severe muscle wasting and fat depletion in the clavicle, face, arms and legs. Status Active Problem Recommendation Dietitian Advance diet as tolerated to liberalized regular with Recommendations/ oral nutrition supplements as tolerated. Changes Hospice care noted--PO as tolerated for comfort. Consult RD as needed. Lab / Micro Data 03/22/25 04:06 03/22/25 04:06 Labs: Laboratory Results - last 24 hr 03/22/25 22:15: POC Glucose 260 H 03/23/25 06:30: POC Glucose 215 H Physical Exam Const alert and no apparent distress HEENT head/scalp atraumatic and moist oral mucous membranes HEENT Narrative: Edentulous Resp normal respiratory effort and no retractions GI normal to inspection, nondistended, normoactive bowel sounds, soft to palpation, non-tender and non-distended Extremity normal to inspection and full ROM Neuro Sensorium / Orientation: awake and alert Psych affect normal Assessment & Plan Assessment/Plan (1) Adult failure to thrive: PLAN: multifactorial: 2/2 significant weight loss (50# since November), stage IV lung CA Plan is for home with hospice. (2) Metastatic primary lung cancer: PLAN: NSCLC (squamous) 02/06/2025 PET/CT showed marked interval worsening of bilateral pulmonary, bilateral hilar, mediastinal, pancreatic body, left retroperitoneal, hepatic, and osseous malignancy/metastatic disease. Started Keytruda, Carboplatin and Abraxane on 03/01/2025. Came in for C1D8 Abraxane. Palliative care consulted No further plans for further treatment at this time. Plans for home with hospice. (3) Hyponatremia: PLAN: Mild. Likely 2/2 poor oral intake. Up slightly today. Monitor for now. Patient takes salt tablets at home. As patient is not hospice, will not continue without. (4) Weight loss, non-intentional: PLAN: 2/2 malignancy weight loss of 50# Diet as tolerated. (5) Constipation: PLAN: received lactulose on Miralax PLAN: Plan Plan is to discharge home with hospice. Patient met with hospice on the evening of the . DME needs to be sent to the patient's home this evening. Given timing of his segment other getting off work this evening and having hospice equipment sent, we have agreed to keep the patient here overnight so that the transition to home with hospice will be relatively smoother on the . Charges/Coding Visit Charges Inpatient E&M: 65504 Subs Hosp L2
--- NOTE | 2025-03-23 11:18 | CASEMGMT ---
Social Work- SW met with pt to offer support and coordinate discharge plans. [facility] called SW to report that they will deliver equipment today and pt can discharge home Wednesday. Pt is agreeable to this plan and reports that he has had great care while at the hospital and prefers everything be set at home for his comfort upon arrival. Pt denies any needs at this time. SW remains available to follow. LATONYA Munguia
[2025-03-23 16:24] VITALS: BP 97/67; PULSE 104; RESP 16; TEMP 37.6; O2SAT 100
[2025-03-23] MEDS: 0.9% Saline Lock 10 ML Syringe IV (16:45)
[2025-03-23 20:31] VITALS: BP 99/72; PULSE 98; RESP 18; TEMP 37; O2SAT 98
--- NOTE | 2025-03-23 22:48 | NURSING ---
Pt had a blood sugar of 211 QHS but refused insulin.
[2025-03-24 04:58] VITALS: BP 99/64; PULSE 105; RESP 18; TEMP 37.6; O2SAT 95
[2025-03-24 05:51] VITALS: BMI 17.9
[2025-03-24 08:44] VITALS: BP 90/62; PULSE 83; RESP 16; TEMP 36.6; O2SAT 97
--- NOTE | 2025-03-24 10:51 | PCM.DC.SUM ---
Providers Date of Admission: 03/22/25 Primary Care Physician: Dr. Cristian Barnett MD Consultations 03/22/25 00:47 Consult: Inpatient Palliative Care Routine Consulting Provider: Ayanna Fuetnes Reason for Consult: Metastatic lung cancer feeling chemotherapy. EMERGENT Consult: No MD Notified: Yes Date Notified: 03/22/25 Time Notified: 20:38 Method of Notification: Verbal Method of Consult:: In-Person Reason For Visit: ADULT FAILURE TO THRIVE WITH METASTATIC LUNG Diagnosis Discharge Diagnosis (1) Adult failure to thrive: Status: Acute Code(s): R62.7 - Adult failure to thrive Plan: multifactorial: 2/2 significant weight loss (50# since November), stage IV lung CA Plan is for home with hospice. (2) Metastatic primary lung cancer: Status: Acute Code(s): C34.90 - Malignant neoplasm of unspecified part of unspecified bronchus or lung Plan: NSCLC (squamous) 02/06/2025 PET/CT showed marked interval worsening of bilateral pulmonary, bilateral hilar, mediastinal, pancreatic body, left retroperitoneal, hepatic, and osseous malignancy/metastatic disease. Started Keytruda, Carboplatin and Abraxane on 03/01/2025. Came in for C1D8 Abraxane. Palliative care consulted No further plans for further treatment at this time. Plans for home with hospice. (3) Hyponatremia: Status: Acute Code(s): E87.1 - Hypo-osmolality and hyponatremia Plan: Mild. Likely 2/2 poor oral intake. Up slightly today. Monitor for now. Patient takes salt tablets at home. As patient is not hospice, will not continue without. (4) Weight loss, non-intentional: Status: Acute Code(s): R63.4 - Abnormal weight loss Plan: 2/2 malignancy weight loss of 50# Diet as tolerated. (5) Constipation: Status: Acute Code(s): K59.00 - Constipation, unspecified Plan: received lactulose on Miralax Plan Plan is to discharge home with hospice. Patient met with hospice on the evening of the . DME needs to be sent to the patient's home this evening. Given timing of his segment other getting off work this evening and having hospice equipment sent, we have agreed to keep the patient here overnight so that the transition to home with hospice will be relatively smoother on the . Medications at Discharge Home Medications lidocaine-prilocaine 2.5 %-2.5 % topical cream 1 applic topical ONCE PRN port access 30 days #30 grams 02/13/25 ondansetron 8 mg disintegrating tablet 8 mg PO Q8H PRN nausea and vomiting #30 tabs 03/01/25 polyethylene glycol 3350 17 gram/dose oral powder (Miralax) 4 g PO ONCE #510 grams 03/01/25 Nebulizer machine #1 ea 03/07/25 ipratropium 0.5 mg-albuterol 3 mg (2.5 mg base)/3 mL nebulization soln 3 ml inhalation Q4H PRN SOB &/OR WHEEZING #180 mL 03/07/25 lorazepam 1 mg tablet 1 mg PO TID PRN anxiety #15 tabs 03/22/25 oxycodone 5 mg tablet 5 mg PO Q4H PRN PRN pain (scale score 7-10) 5 days #20 tabs 03/22/25 Hospital Course Summary of Care Provided Hospital Course: Patient presents with progressive weakness due to his underlying metastatic lung cancer. Patient met with hospice and agreed to services. Patient be discharged today to continue with hospice services. Physical Exam Const no apparent distress Constitutional Narrative: up in bed HEENT normocephalic Medical Records Data Medical Nutrition Assessment Dietitian: Malnutrition Criteria Met Start: 03/22/25 12:03 Freq: Status: Active Protocol: Document 03/22/25 12:03 RMA (Rec: 03/22/25 12:03 RMA [id number]) Nutrition Malnutrition Evidence of Yes Malnutrition Exists Malnutrition (severe Chronic ): Evidenced By Suboptimal Energy Intake (Severe),Weight Loss (Severe), Physical Changes (Severe) Clinical Problem Chronic Disease or Condition Related Malnutrition Etiology Severe protein-calorie malnutrition in the context of chronic illness related to inadequate energy/oral intake and increased energy expenditure due to metastatic disease Signs/Symptoms as evidenced by ~22% unintentional body weight loss in less than 6 months; BMI 17.7; PO meeting less than 50% estimated nutrition needs x past 1 month; +NFPE revealing severe muscle wasting and fat depletion in the clavicle, face, arms and legs. Status Active Problem Recommendation Dietitian Advance diet as tolerated to liberalized regular with Recommendations/ oral nutrition supplements as tolerated. Changes Hospice care noted--PO as tolerated for comfort. Consult RD as needed. Weight / BMI Weight Weight: 55.1 kg Body Mass Index (BMI) 17.9 ABG / Lab / Microbiology Data 03/22/25 04:06 03/22/25 04:06 Laboratory: Laboratory Results - last 24 hr 03/23/25 11:39: POC Glucose 206 H 03/23/25 16:12: POC Glucose 268 H 03/23/25 20:42: POC Glucose 211 H 03/24/25 06:23: POC Glucose 250 H D/C Instructions DC O2, CPAP, BIPAP Needs Home O2 Discharge instructions: No Meaningful Use Info Meaningful Use Meaningful Use Diagnoses (Choose all that apply): None applicable Discharge Plan Admission Admit Date/Time: 03/22/25 00:03 Primary Reason for Your Visit: Weakness Attending Provider: Naeem Awan Primary Care Provider: Cristian Barnett Consulting Providers: Theodore Mcmillan; Ayanna Fuentes Discharge Orders/Prescriptions Prescriptions: New lorazepam 1 mg tablet 1 mg PO TID PRN (Reason: anxiety) Qty: 15 0RF Continued ondansetron 8 mg tablet,disintegrating 8 mg PO Q8H PRN (Reason: nausea and vomiting) Qty: 30 2RF polyethylene glycol 3350 [Miralax] 17 gram/dose powder 4 g PO ONCE Qty: 510 0RF lidocaine-prilocaine 2.5-2.5 % cream 1 applic topical ONCE PRN (Reason: port access) 30 Days Qty: 30 2RF ipratropium-albuterol 0.5 mg-3 mg(2.5 mg base)/3 mL solution for nebulization 3 ml inhalation Q4H PRN Qty: 180 6RF (DME) Nebulizer machine See Rx Instructions .ROUTE .MEDSUPPLY Qty: 1 0RF Rx Instructions: As directed Changed oxycodone 5 mg tablet 5 mg PO Q4H PRN PRN (Reason: pain (scale score 7-10)) 5 Days Qty: 20 0RF Discontinued folic acid 1 mg tablet 1 mg PO QDAY metformin 500 mg tablet extended release 24 hr 1,000 mg PO QDAY sodium chloride 1,000 mg tablet,soluble 1,000 mg PO QDAY Qty: 30 0RF dexamethasone 4 mg tablet 8 mg PO .COMPLEX Qty: 30 2RF Rx Instructions: 8 mg orally ONLY on days 2 & 3 of chemotherapy cycle naloxone 4 mg/actuation spray,non-aerosol intranasal Patient Comments: Use 1 spray in one nostril as needed for overdose. May repeat every 2 to 3 min in alternating nostrils until medical assistance is available Referrals / Follow Up: Cristian Barnett MD [Primary Care Provider] - Within 2 Weeks Disposition Disposition (needs filled in before D/C Order can be placed): Hospice in Home Charges/Coding Visit Charges Inpatient E&M: 90881 Disch Hosp
--- NOTE | 2025-03-24 11:19 | CASEMGMT ---
Social Work- SW received notice that pt will d/c home at 2pm with hospice services. Pt agreeable; reporting [facility] delivered equipment last evening. LATONYA Munguia
== END 2025-03-24 11:39 | disposition hospice, home (50) ==
LOC: ED 23:26 → MS3 03-22 00:06
PROVIDERS: Admitting Provider Internal Medicine; Emergency Provider Emergency Medicine; PCP Family Medicine
DX: C34.31 Malignant neoplasm of lower lobe, right bronchus or lung (principal); C78.1 Secondary malignant neoplasm of mediastinum; C78.7 Secondary malignant neoplasm of liver and intrahepatic bile duct; C79.51 Secondary malignant neoplasm of bone; E11.9 Type 2 diabetes mellitus without complications; I95.9 Hypotension, unspecified; R64 Cachexia; E87.1 Hypo-osmolality and hyponatremia; Z79.84 Long term (current) use of oral hypoglycemic drugs; Z87.891 Personal history of nicotine dependence; R13.10 Dysphagia, unspecified; Z51.5 Encounter for palliative care; Z92.21 Personal history of antineoplastic chemotherapy; R62.7 Adult failure to thrive; Z79.899 Other long term (current) drug therapy; K59.00 Constipation, unspecified; R63.4 Abnormal weight loss; Z68.1 Body mass index [BMI] 19.9 or less, adult; R06.02 Shortness of breath
CPT/HCPCS: 36415; 74177; 80053; 81001; 82962; 83690; 83735; 84100; 84443; 85025; 96361; 96372; 96374; 96376; 97802; 99221; 99282; Q9967; A4216; G0378